=== PATIENT | female | born 1955 | race Caucasian/White ===

== ENCOUNTER 2017-02-28 07:52 | Inpatient (IN) | payer BC, OTHER ==
[~2017-02-28] VITALS: Ht 157.5 cm; Wt 123.0 kg
[~2017-02-28 07:52] MED LIST: ACET-818 PO; ACET325T33 PO; ASPI-664 PO; AZIT250T94 PO; AZIT500T5 PO; DOXY100C42 PO; ERYT1OIN6 BOTH EYES; FLUT16SP24 NASAL; FLUT9.9S NASAL; FURO40TA4 PO; HYDR-3672 PO; HYDR473S47 PO; INSU100C3 SC; LANT3I SC; LOSA100T47 PO; METO-407 PO; SODI15OR8 PO; SYN1 PO
[2017-02-28] MEDS ORDERED: ONDANSETRON 4 MG INJ IV STA ×2 (08:23→12:13)
[2017-02-28] MEDS ORDERED: morphine 4 MG/ML VIAL IV STA (08:23)
[2017-02-28] MEDS ORDERED: PIPER-TAZO 3.375 GM IV (PMX) 100 ML IVPB STA (08:23)
[2017-02-28] MEDS ORDERED: VANCOMYCIN 1 GM (PMX) 250 ML IVPB SCH (08:30)
[2017-02-28] MEDS ORDERED: INSU100C3 SQ (08:42)
[2017-02-28] MEDS ORDERED: LANT3I SC (08:42)
[2017-02-28] MEDS ORDERED: LIDOCAINE 1% (MPF) 5 ML VIAL SC ONE (09:00)
[2017-02-28 09:12] LABS: ADD SCAN DIFF NO
[2017-02-28 09:15] LABS: BASOPHILS % 0.3 % (0.0-2.0); EOSINOPHILS # 0.1 10^3/ul (0.0-0.5); HEMATOCRIT 29.8 % (37.0-47.0); HEMOGLOBIN 9.6 g/dl (12.0-16.0); LYMPHOCYTES # 1.4 10^3/ul (0.8-2.9); LYMPHOCYTES % 10.5 % (15.0-51.0); MEAN CORPUSCULAR HEMOGLOBIN 30.8 pg (29.0-33.0); MEAN CORPUSCULAR HGB CONC 32.2 g/dl (32.0-37.0); MEAN CORPUSCULAR VOLUME 95.5 fl (82.0-101.0); MEAN PLATELET VOLUME 9.3 fl (7.4-10.4); MONOCYTE # 1.1 10^3/ul (0.3-0.9); MONOCYTES % 8.1 % (0.0-11.0); NEUTROPHIL # 10.6 10^3/ul (1.6-7.5); NEUTROPHILS % 78.8 % (39.0-77.0); PLATELET COUNT 297 10^3/UL (140-415); RED BLOOD COUNT 3.12 10^6/ul (4.20-5.40); RED CELL DISTRIBUTION WIDTH 14.5 % (11.5-14.5); WHITE BLOOD COUNT 13.4 10^3/ul (4.8-10.8)
[2017-02-28] MEDS ORDERED: ACETAMINOPHEN 325 MG TAB PO PRN ×2 (09:30→15:30)
[2017-02-28] MEDS ORDERED: ONDANSETRON 4 MG INJ IV PRN (09:30)
[2017-02-28 09:31] LABS: INR 1.02; PROTIME 13.4 Sec (12.2-14.2)
[2017-02-28 09:32] LABS: PARTIAL THROMBOPLASTIN TIME 55.8 Sec (25.0-35.0)
[2017-02-28 09:33] LABS: CALCIUM 9.1 mg/dl (8.4-10.2); CREATININE 3.54 mg/dl (0.44-1.00); POTASSIUM 4.1 mmol/L (3.5-5.1)
[2017-02-28] MEDS ORDERED: HYDROmorphONE 1 MG/ML SYG IV STA (09:41)
--- NOTE | 2017-02-28 12:04 | CONS ---
Date/Time of Note Date/Time of Note DATE: 02/28/17 TIME: 12:01 Assessment/Plan Assessment/Plan Chief Complaint/Hosp Course - ESRD - ANEMIA - HTN - DM - OBESITY PLAN: She is on dialysis MWF, already finished her dialysis @ [facility] Ongoing Leg pain ? Monitor labs + WBC Check bloo dcultures Out patient blood cultures wwas drawn,I will follow up with th eresults Next HD on Friday THANK YOU VKenya YUSUF Problems: Consultation Date/Type/Reason Admit Date/Time Date of Consultation: Feb 28, 2017 Type of Consultation: NEPHROLOGY Reason for Consultation - ESRD ON HEMODIALYSIS Constitutional: poor po Eyes: no complaints ENT: no complaints Respiratory: shortness of breath Cardiovascular: no complaints Gastrointestinal: nausea, vomiting Genitourinary: no complaints Musculoskeletal: back pain, bone/joint pain Skin: no complaints Past Medical History esrd, dm, htn, anemia, obesity, joint pain Past Surgical History AVF Family History Significant Family History: no pertinent family hx Social History Alcohol Use: none Smoking Status: Never smoker Drug Use: none Exam/Review of Systems Vital Signs Vitals Vital Signs Date Time Temp Pulse Resp B/P Pulse Ox O2 Delivery O2 Flow Rate FiO2 02/28/17 10:00 69 18 137/49 100 Nasal Cannula 2.0 02/28/17 08:01 99.0 Exam Constitutional: alert, oriented Psych: no complaints Head: normocephalic Neck: jvd Respiratory: crackles/rales Cardiovascular: regular rate and rhythm, systolic murmur Gastrointestinal: soft Results Result Diagram: 02/28/17 0910 02/28/17 0910 Results 24 hrs Laboratory Tests Test 02/28/17 09:10 White Blood Count 13.4 H Red Blood Count 3.12 L Hemoglobin 9.6 #L Hematocrit 29.8 L Mean Corpuscular Volume 95.5 Mean Corpuscular Hemoglobin 30.8 Mean Corpuscular Hemoglobin Concent 32.2 Red Cell Distribution Width 14.5 Platelet Count 297 Mean Platelet Volume 9.3 Neutrophils % 78.8 H Lymphocytes % 10.5 L Monocytes % 8.1 Eosinophils % 1.0 Basophils % 0.3 Nucleated Red Blood Cells % 0.0 Neutrophils # 10.6 H Lymphocytes # 1.4 Monocytes # 1.1 H Eosinophils # 0.1 Basophils # 0.0 Nucleated Red Blood Cells # 0.0 Prothrombin Time 13.4 Prothrombin Time Ratio 1.0 INR International Normalized Ratio 1.02 Activated Partial Thromboplast Time 55.8 H Sodium Level 132 L Potassium Level 4.1 Chloride Level 95 L Carbon Dioxide Level 28 Anion Gap 13 Blood Urea Nitrogen 30 H Creatinine 3.54 H Glucose Level 145 Calcium Level 9.1 ANIBAL ALMANZAR MD Feb 28, 2017 12:04
--- NOTE | 2017-02-28 12:56 | ERA ---
ER Documentation Chief Complaint Date/Time DATE: 02/28/17 TIME: 12:55 Chief Complaint LEFT LEG PAIN X 6 MONTHS SENT BY MD FOR CELLULITIS HPI Patient is a 61-year-old female with hypertension, diabetes, and dialysis who presents with left leg pain. The patient has had left-sided leg pain for the past 6 months. It started after the patient had a vein stripping done in the left leg. The patient was seen at the [place] emergency department on February 25 was given clindamycin which she has been taking but it is not better. The patient was sent by the primary doctor for admission. The patient had an ultrasound done 1 month ago which was negative. ROS All systems reviewed and are negative except as per history of present illness. Medications Home Meds Reported Medications Insulin Glargine* (Lantus*) 100 Unit/Ml Soln, 100 UNIT SC QHS, #1 VIAL 02/28/17 Insulin Aspart (Novolog) 100 Unit/1 Ml Cartridge, 30 UNIT SQ AC MEALS 02/28/17 Aspirin* (Aspirin* (EC)) 81 Mg Tablet.dr, 81 MG PO DAILY, TAB 12/12/14 Furosemide (Lasix) 40 Mg Tab, 40 MG PO BID 06/25/14 Levothyroxine Sodium (Levothroid) 100 Mcg Tablet, 100 MCG PO QAM 06/25/14 Hydralazine Hcl* (Hydralazine Hcl*) 50 Mg Tablet, 50 MG PO BID 06/25/14 Losartan Potassium* (Cozaar*) 100 Mg Tablet, 100 MG PO DAILY 06/25/14 Metoprolol Tartrate* (Lopressor*) 100 Mg Tablet, 200 MG PO BID 06/25/14 Discontinued Reported Medications Fluticasone Propionate* (Flonase* Nasal) 50 Mcg/[place] - 16 Gm [place].susp, 1 SPRAY NASAL DAILY, SPRAY TO EACH NOSTRIL 12/21/14 Erythromycin (Erythromycin Opth) 3.5 Gm Oint..gm., 1 APPLIC BOTH EYES QHS, TUB 12/21/14 Insulin Aspart (Novolog) 100 U/Ml Cartridge, 10 UNITS SC AC MEALS 06/25/14 Discontinued Scripts Azithromycin* (Azithromycin*) 500 Mg Tablet, 500 MG PO DAILY, #3 TAB Prov:CHRISSIE DESAI DO 06/09/16 Sodium Polystyrene Sulfonate* (Kayexalate*) 15 Gm/60 Ml Susp, 30 GM PO BID for 1 Day, ML Prov:CHRISSIE DESAI DO 06/09/16 Fluticasone Propionate (Flonase Allergy Relief) 9.9 Ml [place].susp, 1 SPRAY NASAL BID, #1 BOTTLE TO EACH NOSTRIL Prov:CHRISSIE DESAI 06/09/16 Acetaminophen* (Tylenol*) 325 Mg Tablet, 2 TAB PO Q8 Y for PAIN AND OR ELEVATED TEMP, #20 TAB Prov:VENUS LEON PA-C 09/01/15 Acetaminophen-Codeine* (Tylenol No.3*) 300-30 Mg Tablet, 1 TAB PO Q4H Y for PAIN , #14 TAB Prov:BRIANNA PAIGE MD 05/13/15 Azithromycin* (Zithromax*) 250 Mg Tablet, 250 MG PO .ZPACK DIRECTED, #6 TAB TAKE 500 MG (2 TABS) THE FIRST DAY THEN 250 MG (1 TAB) DAYS 2-5 Prov:BRIANNA PAIGE MD 05/13/15 Hydrocodone/Homatropine Mbr* (Hycodan* Liq) 5 Ml Syrup, 10 ML PO TID Y for COUGH for 14 Days, ML Prov:GANGA TRAMMELL MD 12/14/14 Doxycycline Monohydrate (Doxycycline Monohydrate) 100 Mg Capsule, 100 MG PO BID for pneumonia, #14 Prov:GANGA TRAMMELL MD 12/14/14 Allergies Allergies: Coded Allergies: codeine (Verified Allergy, Unknown, 02/28/17) PMhx/Soc History of Surgery: Yes (L shoulder, L elbow, L varicose vein removal) Anesthesia Reaction: No Hx Neurological Disorder: No Hx Respiratory Disorders: No Hx Cardiac Disorders: Yes (HTN) Hx Psychiatric Problems: No Hx Miscellaneous Medical Probl: Yes (ESRD (dialysis MWF), ARTHRITIS, DM) Hx Alcohol Use: No Hx Substance Use: No Hx Tobacco Use: No Smoking Status: Never smoker FmHx Family History: diabetes Physical Exam Vitals Vital Signs Date Time Temp Pulse Resp B/P Pulse Ox O2 Delivery O2 Flow Rate FiO2 02/28/17 10:00 69 18 137/49 100 Nasal Cannula 2.0 02/28/17 08:01 99.0 80 18 151/68 99 Physical Exam Const: Moderate distress secondary to pain Head: Atraumatic Eyes: Normal Conjunctiva ENT: Normal External Ears, Nose and Mouth. Neck: Full range of motion..~ No meningismus. Resp: Clear to auscultation bilaterally Cardio: Regular rate and rhythm, no murmurs Abd: Soft, non tender, non distended. Normal bowel sounds Skin: Black eschar to the mid left thigh with surrounding induration, induration to the right thigh as well, no fluctuance Back: No midline or flank tenderness Ext: No cyanosis, or edema Neur: Awake and alert Psych: Normal Mood and Affect Result Diagram: 02/28/17 0910 02/28/17 0910 Results 24 hrs Laboratory Tests Test 02/28/17 09:10 White Blood Count 13.410^3/ul Red Blood Count 3.1210^6/ul Hemoglobin 9.6g/dl Hematocrit 29.8% Mean Corpuscular Volume 95.5fl Mean Corpuscular Hemoglobin 30.8pg Mean Corpuscular Hemoglobin Concent 32.2g/dl Red Cell Distribution Width 14.5% Platelet Count 28934^3/UL Mean Platelet Volume 9.3fl Neutrophils % 78.8% Lymphocytes % 10.5% Monocytes % 8.1% Eosinophils % 1.0% Basophils % 0.3% Nucleated Red Blood Cells % 0.0/100WBC Neutrophils # 10.610^3/ul Lymphocytes # 1.410^3/ul Monocytes # 1.110^3/ul Eosinophils # 0.110^3/ul Basophils # 0.010^3/ul Nucleated Red Blood Cells # 0.010^3/ul Prothrombin Time 13.4Sec Prothrombin Time Ratio 1.0 INR International Normalized Ratio 1.02 Activated Partial Thromboplast Time 55.8Sec Sodium Level 132mmol/L Potassium Level 4.1mmol/L Chloride Level 95mmol/L Carbon Dioxide Level 28mmol/L Anion Gap 13 Blood Urea Nitrogen 30mg/dl Creatinine 3.54mg/dl Glucose Level 145mg/dl Calcium Level 9.1mg/dl Current Medications Medications (Trade) Dose Ordered Sig/Memo Route PRN Reason Start Time Stop Time Status Last Admin Dose Admin Morphine Sulfate (morphine) 4 mg ONCE STAT IV 02/28/17 08:23 02/28/17 08:25 DC 02/28/17 08:56 Ondansetron HCl 4 mg 4 mg ONCE STAT IV 02/28/17 08:23 02/28/17 08:25 DC 02/28/17 08:56 Piperacillin Sod/ Tazobactam Sod 100 ml @ 200 mls/hr ONCE STAT IVPB 02/28/17 08:23 02/28/17 08:52 DC 02/28/17 09:16 Vancomycin HCl (Vancocin) 250 ml @ 125 mls/hr ONCE IVPB 02/28/17 08:30 02/28/17 10:29 DC 02/28/17 09:49 Lidocaine (Xylocaine 1% (Mpf)) 5 ml ONCE ONCE SC 02/28/17 09:00 02/28/17 09:01 DC Ondansetron HCl (Zofran Inj) 4 mg BRIDGE ORDER PRN IV NAUSEA AND/OR VOMITING 02/28/17 09:30 03/01/17 09:29 Acetaminophen (Tylenol Tab) 650 mg ER BRIDGE PRN PO MILD PAIN/FEVER 02/28/17 09:30 03/01/17 09:29 Hydromorphone HCl (Dilaudid) 1 mg ONCE STAT IV 02/28/17 09:41 02/28/17 09:42 DC 02/28/17 09:48 Ondansetron HCl (Zofran Inj) 4 mg ONCE STAT IV 02/28/17 12:13 02/28/17 12:14 DC 02/28/17 12:22 Procedures/MDM Patient is a 61-year-old female who presents with what appears to be an acute cellulitis to the lower extremities bilaterally with the left being worse than the right. The patient has failed outpatient treatment at this time and will need IV antibiotics. I have ordered vancomycin and Zosyn. The patient will be admitted to the care of Dr. Carlisle as the patient has regal insurance. The patient will be admitted to a medical surgical bed under observation status. Departure Diagnosis: Primary Impression: Cellulitis Qualified Code: L03.119 - Cellulitis of lower extremity, unspecified laterality Additional Impressions: Chronic renal failure Qualified Code: N18.9 - Chronic renal failure, unspecified stage Leukocytosis Qualified Code: D72.829 - Leukocytosis, unspecified type Anemia Qualified Code: D64.9 - Anemia, unspecified type HIGINIO CAMPBELL MD Feb 28, 2017 12:56
[2017-02-28 13:54] VITALS: TEMP 98.4
[2017-02-28 15:30] VITALS: BP 148/72; PULSE 86; RESP 18
[2017-02-28] MEDS ORDERED: DEXTROSE 50% 50 ML SYRINGE IV PRN ×2 (15:30)
[2017-02-28] MEDS ORDERED: VANCOMYCIN IV PER PHARMACY XX SCH (15:30)
[2017-02-28] MEDS ORDERED: DOCUSATE SODIUM 100 MG CAP PO PRN (15:30)
[2017-02-28] MEDS ORDERED: VANCOMYCIN 1 GM (PMX) 250 ML IVPB ONE (15:30)
[2017-02-28] MEDS ORDERED: LEVOFLOXACIN 750 MG TABLET PO SCH (15:30)
[2017-02-28] MEDS ORDERED: GLUCOSE GEL 15 GRAM TUBE PO PRN ×2 (15:30)
[2017-02-28] MEDS ORDERED: BISACODYL 10 MG SUPP PR PRN (15:30)
[2017-02-28] MEDS ORDERED: MAGNESIUM HYDROXIDE 30ML CUP PO PRN (15:30)
[2017-02-28] MEDS ORDERED: GLUCAGON 1 MG INJ IM PRN (15:30)
[2017-02-28] MEDS ORDERED: GLUCOSE GEL 15 GRAM TUBE BUCCAL PRN (15:30)
[2017-02-28] MEDS ORDERED: NACL 0.9% 3 ML SYG IV SCH (15:30)
[2017-02-28] MEDS: morphine 2 MG INJ IV PRN (15:32)
[2017-02-28] MEDS: ONDANSETRON 4 MG INJ IV PRN (15:33)
[2017-02-28 16:28] VITALS: BP 148/72; PULSE 86; RESP 20
--- NOTE | 2017-02-28 16:31 | HP ---
Date/Time of Note Date/Time of Note DATE: 02/28/17 TIME: 15:54 Assessment/Plan VTE Prophylaxis VTE Prophylaxis Intervention: heparin Assessment/Plan Assessment/Plan 61-year-old female: 1. Left inner thigh acute on chronic cellulitis post varicose vein laser procedure 6 months ago, mild leukocytosis is noted, change antibiotics to IV, IV vancomycin and p.o. Levaquin added. Monitor CBC, pain control with morphine as needed patient reports cannot tolerate Spreckels, Percocet will be tried as an alternative oral medication. CAT scan of the left thigh pending 2. End-stage renal disease on hemodialysis, on Friday/Friday/Friday schedule , last hemodialysis was this morning at dialysis center prior to admission. Dr. Mccollum will be following, next dialysis is planned for Friday 3. Diabetes mellitus, her insulin regimen has been adjusted, she will be on Lantus 26 units subcutaneously QHS along with NovoLog 8 units subcutaneously q. AC and moderate sliding scale insulin. Further adjustments to be made. Hemoglobin A1c is pending 4. Hypertension: Home medications have been resumed, patient clarified that she is on metoprolol 100 mg twice daily 5. Nausea/vomiting, patient reports that it started since she was taking Spreckels , she is currently still symptomatic and has not been able to eat much over the past 2 days, she will be started on Reglan 5 mg IV prior to meals, continue Zofran as needed. 6. Super morbid obesity Prophylaxis: Protonix for GI prophylaxis, heparin subcu for DVT prophylaxis. Disposition: CAT scan of the left thigh pending, IV antibiotics, hemodialysis Friday HPI/ROS Admit Date/Time Admit Date/Time Hx of Present Illness Primary care physician: Dr. Martinez Previous vascular surgeon: Dr. Velazquez Outpatient vehicle cost engineer: Dr. Stewart Chief complaint : Left leg pain History of presenting illness This is a 61-year-old female, with history of diabetes mellitus insulin- dependent, super morbid obesity, end-stage renal disease on hemodialysis, hypertension, hyperlipidemia, left inner thigh pain and wound for the past 6 months. The patient reports that she had varicose vein laser treatment 6 months ago done on her left inner thigh area by her vascular surgeon, since then she has been having on and off pain around the area of the laser treatment. The burnout area did form an eschar, there is a large area of induration surrounding it. There is no erythema seen at this time but the patient did receive a dose of vancomycin and Zosyn already in the emergency department. The patient reports that over the past 6 months she has seen her vascular surgeon for this issue, she also has been at [facility] twice during the months of January and most recently 2 days ago. She was given clindamycin 2 days ago to treat cellulitis on that left thigh area surrounding the eschar from the laser treatment for the varicose vein. Over the past 2 days the patient has been nauseous and vomiting every time she took Spreckels for pain but was able to take her antibiotic clindamycin. She denies any fevers or chills but reports increasing pain in the left leg area and extension of the indurated area. There is mild edema noted on her left lower extremity but seems to be chronic. She is otherwise hemodynamically stable. On her latest visit from her vascular surgeon, she was told that she would be sent for a CAT scan of her left thigh area this coming week. At baseline the patient uses a walker with a seat, she has chronic lower extremity weakness. She has been admitted to a medical surgical bed on IV vancomycin and oral Levaquin, a CAT scan of her left thigh will be obtained for further evaluation. She was already dialyzed today as scheduled as an outpatient prior to arrival to the emergency department. Dr. Mccollum will be following the patient, next dialysis is due Friday ROS Constitutional: nausea Eyes: other (Right eye blind) ENT: no complaints Respiratory: shortness of breath Cardiovascular: no complaints Gastrointestinal: nausea, vomiting Genitourinary: no complaints Musculoskeletal: back pain, bone/joint pain Skin: no complaints Psychological: no complaints PMH/Family/Social Past Medical History Medical History: diabetes, GERD, hypertension, hypothyroid, renal disease (End- stage renal disease on hemodialysis), other (Super morbid obesity) Past Surgical History Status post left shoulder surgery 2 remotely Status post left elbow surgery 1 remotely Status post carpal tunnel surgery left wrist 2 and right wrist 1 remotely Status post AV fistula April 2016, status post repair August 2016 Status post permacath placement Status post left inner thigh varicose veins laser surgery 6 months ago Family History Significant Family History: no pertinent family hx Social History Alcohol Use: none Smoking Status: Never smoker Drug Use: none Exam/Review of Systems Vital Signs Vitals Vital Signs Date Time Temp Pulse Resp B/P Pulse Ox O2 Delivery O2 Flow Rate FiO2 02/28/17 13:54 98.4 63 20 125/61 99 Nasal Cannula 2.0 Exam Constitutional: alert, oriented, other Psych: no complaints Head: atraumatic, normocephalic Eyes: EOMI, other (Blind right eye) ENMT: mucosa pink and moist, nl external ears & nose Neck: non-tender, supple Respiratory: clear to auscultation, normal air movement Cardiovascular: nl pulses, regular rate and rhythm Gastrointestinal: non-tender, soft Musculoskeletal: other (Left inner thigh above knee area with eschar approximately 1.51.5 cm with larger area of induration surrounding it, no erythema, tenderness to palpation noted) Extremities: normal pulses Neurological: ANESTHESIOLOGIST PHYSICIAN II-XII intact, nl mental status, nl speech, nl strength (At baseline) Labs Result Diagram: 02/28/17 0910 02/28/17 0910 Medications Medications Current Medications Aspirin (Halfprin) 81 mg DAILY PO ; Start 03/01/17 at 09:00 Hydralazine HCl (Apresoline) 50 mg BID PO ; Start 02/28/17 at 21:00 Losartan Potassium (Cozaar) 100 mg DAILY PO ; Start 03/01/17 at 09:00 Metoprolol Tartrate (Lopressor) 200 mg BID PO ; Start 02/28/17 at 21:00 Ondansetron HCl (Zofran Inj) 4 mg Q6H PRN IV NAUSEA AND/OR VOMITING Last administered on 02/28/17t 15:33; Admin Dose 4 MG; Start 02/28/17 at 15:30 Acetaminophen (Tylenol Tab) 650 mg Q6H PRN PO PAIN LEVEL 1-3 OR FEVER; Start at 15:30 Oxycodone/ Acetaminophen (Percocet (5/ 325)) 1 tab Q6H PRN PO MODERATE PAIN LEVEL 4-6; Start 02/28/17 at 15:30 Oxycodone/ Acetaminophen (Percocet (5/ 325)) 2 tab Q6H PRN PO SEVERE PAIN LEVEL 7-10; Start 02/28/17 at 15:30 Morphine Sulfate (morphine) 2 mg Q4H PRN IV SEVERE PAIN LEVEL 7-10; Start 02/28 at 15:30 Docusate Sodium (Colace) 100 mg Q12H PRN PO CONSTIPATION; Start 02/28/17 at 15: 30 Magnesium Hydroxide (Milk Of Mag) 30 ml DAILY PRN PO CONSTIPATION; Start at 15:30 Bisacodyl (Dulcolax Supp) 10 mg DAILY PRN DE CONSTIPATION; Start 02/28/17 at 15 :30 Pantoprazole (Protonix Tab) 40 mg DAILY@06 PO ; Start 03/01/17 at 06:00 Heparin Sodium (Porcine) (Heparin (5000 Units/0.5 ml)) 5,000 unit Q12 SC ; Start 02/28/17 at 21:00 Levofloxacin (Levaquin) 750 mg Q48H PO ; Start 02/28/17 at 15:30 Insulin Glargine (Lantus) 26 unit DAILY@20 SC ; Start 02/28/17 at 20:00 Diagnostic Test (Pha) (Accu-Chek) 1 ea 02 XX ; Start 03/01/17 at 02:00 Miscellaneous Information 1 ea NOTE XX ; Start 02/28/17 at 15:30 Glucose (Glutose) 15 gm Q15M PRN PO DECREASED GLUCOSE; Start 02/28/17 at 15:30 Glucose (Glutose) 22.5 gm Q15M PRN PO DECREASED GLUCOSE; Start 02/28/17 at 15: 30 Dextrose (D50w Syringe) 25 ml Q15M PRN IV DECREASED GLUCOSE; Start 02/28/17 at 15:30 Dextrose (D50w Syringe) 50 ml Q15M PRN IV DECREASED GLUCOSE; Start 02/28/17 at 15:30 Glucagon (Glucagen) 1 mg Q15M PRN IM DECREASED GLUCOSE; Start 02/28/17 at 15:30 Glucose (Glutose) 15 gm Q15M PRN BUCCAL DECREASED GLUCOSE; Start 02/28/17 at 15 :30 JASPREET SMITH Feb 28, 2017 16:04
[2017-02-28] MEDS: INSULIN ASPART [NOVOLOG] 3 ML PEN SC SCH ×3 (17:25→23:40)
--- NOTE | 2017-02-28 18:40 | RADRPT ---
PROCEDURE: CT of the left thigh without contrast CLINICAL INDICATION: Possible abscess TECHNIQUE: CT scan of the left thigh was performed. No IV contrast was administered. Coronal and sagittal reformatted images were obtained from the axial source images. images. The calculated radi ation dose measures 910.38 mGy centimeters. The CTDI measures 25.33 mGy. Images were reviewed on a h igh-resolution PACS workstation. One or more of the following dose reduction techniques were used: - Automated exposure control. - Adjustment of the mA and/or kV according to patient size . - Use of iterative reconstruction technique. Images were reviewed on a high-resolution PACS workstation COMPARISON: None. FINDINGS: Osseous structures: There is no cortical destruction or soft tissue gas to suggest osteomyelitis. Mild tricompartmental knee arthrosis is present. Soft tissues: There is extensive, subcutaneous infiltration of the partially visualized lower leg w ith calcifications, likely chronic in nature. Calcified subcutaneous varicosities are also present. There is no evidence for a drainable fluid collection on this noncontrast examination. There is mo derate fatty atrophy the anterior muscle compartments of the lower leg. IMPRESSION: 1. No cortical destruction or soft tissue gas to suggest CT evidence for osteomyelitis. 2. No evidence for a drainable fluid collection on this noncontrast exam. 3. Chronic, partially visualized subcutaneous infiltration and scattered calcifications of the lowe r leg, nonspecific findings. 4. Atherosclerotic vascular calcifications RPTAT: HH .Neeraj Bates MD, MD Date Time Electronically viewed and signed by .Neeraj Bates MD, MD on 02/28/2017 18:40 .d/
[2017-02-28] MEDS: FUROSEMIDE 40 MG TAB PO SCH (18:46)
[2017-02-28] MEDS: METOCLOPRAMIDE 10 MG INJ IV SCH ×2 (18:46→23:35)
[2017-02-28] MEDS ORDERED: METOPROLOL 100 MG TAB PO SCH (21:00)
[2017-02-28] MEDS: METOPROLOL 100 MG TAB PO SCH (23:35)
[2017-02-28] MEDS: HEPARIN 5,000 UNIT/0.5 ML VIAL SC SCH (23:38)
[2017-02-28] MEDS: INSULIN GLARGINE [LANtus] 3 ML PEN SC SCH (23:41)
[2017-03-01] MEDS: ACCU-CHEK XX SCH (02:00)
[2017-03-01] MEDS: morphine 2 MG INJ IV PRN ×2 (03:17→22:37)
[2017-03-01] MEDS: FUROSEMIDE 40 MG TAB PO SCH ×2 (05:47→18:12)
[2017-03-01] MEDS: PANTOPRAZOLE (EC) 40 MG TAB PO SCH (05:47)
[2017-03-01 06:09] LABS: ADD SCAN DIFF NO
[2017-03-01 06:29] LABS: BASOPHIL # 0.1 10^3/ul (0.0-0.1); BASOPHILS % 0.4 % (0.0-2.0); EOSINOPHILS # 0.1 10^3/ul (0.0-0.5); HEMATOCRIT 30.5 % (37.0-47.0); HEMOGLOBIN 9.5 g/dl (12.0-16.0); LYMPHOCYTES # 0.9 10^3/ul (0.8-2.9); LYMPHOCYTES % 7.4 % (15.0-51.0); MEAN CORPUSCULAR HEMOGLOBIN 31.1 pg (29.0-33.0); MEAN CORPUSCULAR HGB CONC 31.1 g/dl (32.0-37.0); MEAN PLATELET VOLUME 10.2 fl (7.4-10.4); MONOCYTES % 7.9 % (0.0-11.0); NEUTROPHIL # 10.4 10^3/ul (1.6-7.5); NEUTROPHILS % 82.5 % (39.0-77.0); PLATELET COUNT 308 10^3/UL (140-415); RED BLOOD COUNT 3.05 10^6/ul (4.20-5.40); RED CELL DISTRIBUTION WIDTH 14.5 % (11.5-14.5); WHITE BLOOD COUNT 12.6 10^3/ul (4.8-10.8)
[2017-03-01 06:36] LABS: CREATININE 4.95 mg/dl (0.44-1.00)
[2017-03-01] MEDS: OXYCODONE/ACETAMINOPHEN (5/325) TAB PO PRN ×2 (06:36→18:20)
[2017-03-01 06:37] LABS: PHOSPHORUS 7.8 mg/dl (2.5-4.9)
[2017-03-01 06:38] LABS: CALCIUM 8.7 mg/dl (8.4-10.2); MAGNESIUM 2.1 mg/dl (1.7-2.5)
[2017-03-01] MEDS: LEVOTHYROXINE 100 MCG TAB PO SCH (07:47)
[2017-03-01] MEDS: INSULIN ASPART [NOVOLOG] 3 ML PEN SC SCH ×7 (07:48→21:00)
[2017-03-01] MEDS: METOCLOPRAMIDE 10 MG INJ IV SCH (07:49)
[2017-03-01 08:07] VITALS: BP 122/58; RESP 18
[2017-03-01] MEDS: METOPROLOL 100 MG TAB PO SCH ×2 (08:32→21:24)
[2017-03-01] MEDS: ASPIRIN (EC) 81 MG TAB PO SCH (08:32)
[2017-03-01] MEDS: LOSARTAN 50 MG TAB PO SCH (08:32)
[2017-03-01] MEDS: HEPARIN 5,000 UNIT/0.5 ML VIAL SC SCH ×2 (08:34→21:25)
--- NOTE | 2017-03-01 10:16 | PN ---
Date/Time of Note Date/Time of Note DATE: 03/01/17 TIME: 10:04 Assessment/Plan VTE Prophylaxis VTE Prophylaxis Intervention: heparin Lines/Catheters IV Catheter Type (from Nrs): Saline Lock Urinary Cath still in place: No Assessment/Plan Assessment/Plan 61-year-old female: 1. Left inner thigh chronic subcutaneous infiltration post varicose vein laser procedure 6 months ago, CT with findings of extensive, subcutaneous infiltration of the partially visualized lower leg with calcifications, likely chronic in nature. Calcified subcutaneous varicosities are also present Mild leukocytosis on IV vancomycin that can be given with HD, blood cx negative , d/c Levaquin. Pain control with morphine as needed patient reports cannot tolerate [place], Percocet will be tried as an alternative oral medication. 2. End-stage renal disease on hemodialysis, on Friday/Friday/Friday schedule , Next hemodialysis Friday. Dr. Mccollum following. 3. Diabetes mellitus, her insulin regimen has been adjusted, she will be on Lantus 26 units subcutaneously QHS along with NovoLog 8 units subcutaneously q. AC and moderate sliding scale insulin. BG stable. Hemoglobin A1c 8.2 Trial of Gabapentin for neuropathic pain 4. Hypertension: continue home meds ? Dizzy, check orthostatics 5. Nausea/vomiting, resolved this AM, Trial off Reglan continue Zofran as needed. 6. Super morbid obesity Prophylaxis: Protonix for GI prophylaxis, heparin subcu for DVT prophylaxis. Disposition: CAT scan of the left thigh pending, IV antibiotics, hemodialysis Friday Subjective 24 Hr Interval Summary Free Text/Dictation Patient complaining of pain LLE CT left leg with chronic findings, no abscess D/c Levaquin, continue Vanco with HD until follow up with Dr Velazquez on 03/04 Exam/Review of Systems Vital Signs Vitals Vital Signs Date Time Temp Pulse Resp B/P Pulse Ox O2 Delivery O2 Flow Rate FiO2 03/01/17 08:07 98.7 71 18 122/58 98 03/01/17 08:00 Nasal Cannula 2.0 Intake and Output 02/28/17 02/28/17 03/01/17 15:00 23:00 07:00 Intake Total 350 ml 300 ml 350 ml Output Total 2 ml Balance 350 ml 300 ml 348 ml Exam Constitutional: alert, obese (morbid), oriented Head: atraumatic, normocephalic Eyes: other (blind right eye ) Respiratory: clear to auscultation, normal air movement Cardiovascular: nl pulses, regular rate and rhythm Gastrointestinal: non-tender, soft Extremities: normal pulses, other (lower left inner thigh at site or eschar ), tenderness Neurological: CALL CENTER COORDINATOR II-XII intact, nl mental status, nl speech, nl strength Results Result Diagram: 03/01/1720 03/01/17 0520 Results 24 hrs Laboratory Tests Test 02/28/17 17:10 02/28/17 23:33 03/01/17 02:36 03/01/17 05:20 Bedside Glucose 176 242 H 180 White Blood Count 12.6 H Red Blood Count 3.05 L Hemoglobin 9.5 L Hematocrit 30.5 L Mean Corpuscular Volume 100.0 Mean Corpuscular Hemoglobin 31.1 Mean Corpuscular Hemoglobin Concent 31.1 L Red Cell Distribution Width 14.5 Platelet Count 308 Mean Platelet Volume 10.2 Neutrophils % 82.5 H Lymphocytes % 7.4 L Monocytes % 7.9 Eosinophils % 1.0 Basophils % 0.4 Nucleated Red Blood Cells % 0.0 Neutrophils # 10.4 H Lymphocytes # 0.9 Monocytes # 1.0 H Eosinophils # 0.1 Basophils # 0.1 Nucleated Red Blood Cells # 0.0 Sodium Level 136 Potassium Level 5.0 Chloride Level 94 L Carbon Dioxide Level 28 Anion Gap 19 H Blood Urea Nitrogen 44 #H Creatinine 4.95 #H Glucose Level 130 Hemoglobin A1c 8.2 H Calcium Level 8.7 Phosphorus Level 7.8 H Magnesium Level 2.1 Thyroid Stimulating Hormone (TSH) 3.420 Free Thyroxine 1.00 Test 03/01/17 07:43 Bedside Glucose 138 Medications Medications Current Medications Aspirin (Halfprin) 81 mg DAILY PO Last administered on 03/01/17 08:32; Admin Dose 81 MG; Start 03/01/17 at 09:00 Hydralazine HCl (Apresoline) 50 mg BID PO Last administered on 03/01/17 08:31 ; Admin Dose 50 MG; Start 02/28/17 at 21:00 Losartan Potassium (Cozaar) 100 mg DAILY PO Last administered on 03/01/17 08: 32; Admin Dose 100 MG; Start 03/01/17 at 09:00 Ondansetron HCl (Zofran Inj) 4 mg Q6H PRN IV NAUSEA AND/OR VOMITING Last administered on 02/28/17 15:33; Admin Dose 4 MG; Start 02/28/17 at 15:30 Acetaminophen (Tylenol Tab) 650 mg Q6H PRN PO PAIN LEVEL 1-3 OR FEVER; Start at 15:30 Oxycodone/ Acetaminophen (Percocet (5/ 325)) 1 tab Q6H PRN PO MODERATE PAIN LEVEL 4-6; Start 02/28/17 at 15:30 Oxycodone/ Acetaminophen (Percocet (5/ 325)) 2 tab Q6H PRN PO SEVERE PAIN LEVEL 7-10 Last administered on 03/01/17 06:36; Admin Dose 2 TAB; Start at 15:30 Morphine Sulfate (morphine) 2 mg Q4H PRN IV SEVERE PAIN LEVEL 7-10 Last administered on 03/01/17 03:17; Admin Dose 2 MG; Start 02/28/17 at 15:30 Docusate Sodium (Colace) 100 mg Q12H PRN PO CONSTIPATION; Start 02/28/17 at 15: 30 Magnesium Hydroxide (Milk Of Mag) 30 ml DAILY PRN PO CONSTIPATION; Start at 15:30 Bisacodyl (Dulcolax Supp) 10 mg DAILY PRN [place] CONSTIPATION; Start 02/28/17 at 15 :30 Pantoprazole (Protonix Tab) 40 mg DAILY@06 PO Last administered on 03/01/17 05 :47; Admin Dose 40 MG; Start 03/01/17 at 06:00 Heparin Sodium (Porcine) (Heparin (5000 Units/0.5 ml)) 5,000 unit Q12 SC Last administered on 03/01/17 08:34; Admin Dose 5,000 UNIT; Start 02/28/17 at 21:00 Levofloxacin (Levaquin) 750 mg Q48H PO ; Start 02/28/17 at 15:30 Insulin Glargine (Lantus) 26 unit DAILY@20 SC Last administered on 02/28/17 23 :41; Admin Dose 26 UNIT; Start 02/28/17 at 20:00 Diagnostic Test (Pha) (Accu-Chek) 1 ea 02 XX ; Start 03/01/17 at 02:00 Miscellaneous Information 1 ea NOTE XX ; Start 02/28/17 at 15:30 Glucose (Glutose) 15 gm Q15M PRN PO DECREASED GLUCOSE; Start 02/28/17 at 15:30 Glucose (Glutose) 22.5 gm Q15M PRN PO DECREASED GLUCOSE; Start 02/28/17 at 15: 30 Dextrose (D50w Syringe) 25 ml Q15M PRN IV DECREASED GLUCOSE; Start 02/28/17 at 15:30 Dextrose (D50w Syringe) 50 ml Q15M PRN IV DECREASED GLUCOSE; Start 02/28/17 at 15:30 Glucagon (Glucagen) 1 mg Q15M PRN IM DECREASED GLUCOSE; Start 02/28/17 at 15:30 Glucose (Glutose) 15 gm Q15M PRN BUCCAL DECREASED GLUCOSE; Start 02/28/17 at 15 :30 Metoprolol Tartrate (Lopressor) 100 mg BID PO Last administered on 03/01/17t 08 :32; Admin Dose 100 MG; Start 02/28/17 at 21:00 Procedures Procedures PROCEDURE: CT of the left thigh without contrast CLINICAL INDICATION: Possible abscess TECHNIQUE: CT scan of the left thigh was performed. No IV contrast was administered. Coronal and sagittal reformatted images were obtained from the axial source images. images. The calculated radiation dose measures 910.38 mGy centimeters. The CTDI measures 25.33 mGy. Images were reviewed on a high- resolution PACS workstation. One or more of the following dose reduction techniques were used: - Automated exposure control. - Adjustment of the mA and/or kV according to patient size . - Use of iterative reconstruction technique. Images were reviewed on a high-resolution PACS workstation COMPARISON: None. FINDINGS: Osseous structures: There is no cortical destruction or soft tissue gas to suggest osteomyelitis. Mild tricompartmental knee arthrosis is present. Soft tissues: There is extensive, subcutaneous infiltration of the partially visualized lower leg with calcifications, likely chronic in nature. Calcified subcutaneous varicosities are also present. There is no evidence for a drainable fluid collection on this noncontrast examination. There is moderate fatty atrophy the anterior muscle compartments of the lower leg. IMPRESSION: 1. No cortical destruction or soft tissue gas to suggest CT evidence for osteomyelitis. 2. No evidence for a drainable fluid collection on this noncontrast exam. 3. Chronic, partially visualized subcutaneous infiltration and scattered calcifications of the lower leg, nonspecific findings. 4. Atherosclerotic vascular calcifications RPTAT: HH .Neeraj Bates MD, MD Date Time Electronically viewed and signed by .Neeraj Bates MD, on 02/28/2017 18:40 JASPREET SMITH Mar 01, 2017 10:15
[2017-03-01] MEDS ORDERED: METOCLOPRAMIDE 10 MG INJ IV PRN (10:30)
[2017-03-01 11:16] VITALS: BP 128/59
[2017-03-01 11:26] VITALS: BP 125/60
[2017-03-01 11:36] VITALS: BP 150/64
[2017-03-01] MEDS: GABAPENTIN 100 MG CAP PO SCH ×2 (12:14→21:24)
[2017-03-01] MEDS: INSULIN GLARGINE [LANtus] 3 ML PEN SC SCH (21:11)
--- NOTE | 2017-03-01 22:15 | CONS ---
Date/Time of Note Date/Time of Note DATE: 03/01/17 TIME: 22:13 Consult Date/Type/Reason Admit Date/Time Feb 28, 2017 at 09:05 Initial Consult Date 02/28/17 Type of Consultation: NEPHROLOGY Subjective no chest pain and no sob Objective Vital Signs Date Time Temp Pulse Resp B/P Pulse Ox O2 Delivery O2 Flow Rate FiO2 03/01/17 11:36 67 150/64 03/01/17 08:07 98.7 18 98 03/01/17 08:00 Nasal Cannula 2.0 Intake and Output 02/28/17 02/28/17 03/01/17 15:00 23:00 07:00 Intake Total 350 ml 300 ml 350 ml Output Total 2 ml Balance 350 ml 300 ml 348 ml Results/Medications Result Diagram: 03/01/1720 03/01/17 0520 Results 24 hrs Laboratory Tests Test 02/28/17 23:33 03/01/17 02:36 03/01/17 05:20 03/01/17 07:43 Bedside Glucose 242 H 180 138 White Blood Count 12.6 H Red Blood Count 3.05 L Hemoglobin 9.5 L Hematocrit 30.5 L Mean Corpuscular Volume 100.0 Mean Corpuscular Hemoglobin 31.1 Mean Corpuscular Hemoglobin Concent 31.1 L Red Cell Distribution Width 14.5 Platelet Count 308 Mean Platelet Volume 10.2 Neutrophils % 82.5 H Lymphocytes % 7.4 L Monocytes % 7.9 Eosinophils % 1.0 Basophils % 0.4 Nucleated Red Blood Cells % 0.0 Neutrophils # 10.4 H Lymphocytes # 0.9 Monocytes # 1.0 H Eosinophils # 0.1 Basophils # 0.1 Nucleated Red Blood Cells # 0.0 Sodium Level 136 Potassium Level 5.0 Chloride Level 94 L Carbon Dioxide Level 28 Anion Gap 19 H Blood Urea Nitrogen 44 #H Creatinine 4.95 #H Glucose Level 130 Hemoglobin A1c 8.2 H Calcium Level 8.7 Phosphorus Level 7.8 H Magnesium Level 2.1 Thyroid Stimulating Hormone (TSH) 3.420 Free Thyroxine 1.00 Test 03/01/17 11:51 03/01/17 18:04 03/01/17 21:09 Bedside Glucose 172 213 171 Medications Current Medications Aspirin (Halfprin) 81 mg DAILY PO Last administered on 03/01/17t 08:32; Admin Dose 81 MG; Start 03/01/17 at 09:00 Hydralazine HCl (Apresoline) 50 mg BID PO Last administered on 03/01/17 21:23 ; Admin Dose 50 MG; Start 02/28/17 at 21:00 Losartan Potassium (Cozaar) 100 mg DAILY PO Last administered on 03/01/17 08: 32; Admin Dose 100 MG; Start 03/01/17 at 09:00 Ondansetron HCl (Zofran Inj) 4 mg Q6H PRN IV NAUSEA AND/OR VOMITING Last administered on 02/28/17 15:33; Admin Dose 4 MG; Start 02/28/17 at 15:30 Acetaminophen (Tylenol Tab) 650 mg Q6H PRN PO PAIN LEVEL 1-3 OR FEVER; Start at 15:30 Oxycodone/ Acetaminophen (Percocet (5/ 325)) 1 tab Q6H PRN PO MODERATE PAIN LEVEL 4-6; Start 02/28/17 at 15:30 Oxycodone/ Acetaminophen (Percocet (5/ 325)) 2 tab Q6H PRN PO SEVERE PAIN LEVEL 7-10 Last administered on 03/01/17 18:20; Admin Dose 2 TAB; Start at 15:30 Morphine Sulfate (morphine) 2 mg Q4H PRN IV SEVERE PAIN LEVEL 7-10 Last administered on 03/01/17 03:17; Admin Dose 2 MG; Start 02/28/17 at 15:30 Docusate Sodium (Colace) 100 mg Q12H PRN PO CONSTIPATION; Start 02/28/17 at 15: 30 Magnesium Hydroxide (Milk Of Mag) 30 ml DAILY PRN PO CONSTIPATION; Start at 15:30 Bisacodyl (Dulcolax Supp) 10 mg DAILY PRN [place] CONSTIPATION; Start 02/28/17 at 15 :30 Pantoprazole (Protonix Tab) 40 mg DAILY@06 PO Last administered on 03/01/17 05 :47; Admin Dose 40 MG; Start 03/01/17 at 06:00 Heparin Sodium (Porcine) (Heparin (5000 Units/0.5 ml)) 5,000 unit Q12 SC Last administered on 03/01/17 21:25; Admin Dose 5,000 UNIT; Start 02/28/17 at 21:00 Insulin Glargine (Lantus) 26 unit DAILY@20 SC Last administered on 03/01/17 21 :11; Admin Dose 26 UNIT; Start 02/28/17 at 20:00 Diagnostic Test (Pha) (Accu-Chek) 1 ea 02 XX ; Start 03/01/17 at 02:00 Miscellaneous Information 1 ea NOTE XX ; Start 02/28/17 at 15:30 Glucose (Glutose) 15 gm Q15M PRN PO DECREASED GLUCOSE; Start 02/28/17 at 15:30 Glucose (Glutose) 22.5 gm Q15M PRN PO DECREASED GLUCOSE; Start 02/28/17 at 15: 30 Dextrose (D50w Syringe) 25 ml Q15M PRN IV DECREASED GLUCOSE; Start 02/28/17 at 15:30 Dextrose (D50w Syringe) 50 ml Q15M PRN IV DECREASED GLUCOSE; Start 02/28/17 at 15:30 Glucagon (Glucagen) 1 mg Q15M PRN IM DECREASED GLUCOSE; Start 02/28/17 at 15:30 Glucose (Glutose) 15 gm Q15M PRN BUCCAL DECREASED GLUCOSE; Start 02/28/17 at 15 :30 Metoprolol Tartrate (Lopressor) 100 mg BID PO Last administered on 03/01/17 21 :24; Admin Dose 100 MG; Start 02/28/17 at 21:00 Metoclopramide HCl (Reglan) 5 mg Q6H PRN IV NAUSEA; Start 03/01/17 at 10:30 Gabapentin (Neurontin) 100 mg BID PO Last administered on 03/01/17 21:24; Admin Dose 100 MG; Start 03/01/17 at 10:30 Miscellaneous Information (*Rx Drug Level Order Reminder*) RANDOM VANCOMYCIN LEVEL 4... ONCE ONCE XX ; Start 03/02/17 at 05:00; Stop 03/02/17 at 05:01 Assessment/Plan Chief Complaint/Hosp Course cellulitis of thigh ESRD on dialysis per schedule toni yung Problems: DOMINIQUE LUND MD Mar 01, 2017 22:15
[2017-03-02] MEDS: OXYCODONE/ACETAMINOPHEN (5/325) TAB PO PRN ×4 (00:14→22:29)
[2017-03-02] MEDS: ACCU-CHEK XX SCH (02:00)
[2017-03-02] MEDS: FUROSEMIDE 40 MG TAB PO SCH ×2 (05:46→18:04)
[2017-03-02] MEDS: PANTOPRAZOLE (EC) 40 MG TAB PO SCH (05:46)
[2017-03-02] MEDS: LEVOTHYROXINE 100 MCG TAB PO SCH (06:37)
[2017-03-02 07:45] VITALS: BP 122/60; RESP 18
[2017-03-02 07:48] LABS: POTASSIUM 5.1 mmol/L (3.5-5.1)
[2017-03-02 07:49] LABS: ADD SCAN DIFF NO; BASOPHIL # 0.1 10^3/ul (0.0-0.1); BASOPHILS % 0.3 % (0.0-2.0); EOSINOPHILS # 0.2 10^3/ul (0.0-0.5); EOSINOPHILS % 1.5 % (0.0-7.0); HEMATOCRIT 29.9 % (37.0-47.0); HEMOGLOBIN 9.1 g/dl (12.0-16.0); LYMPHOCYTES # 1.3 10^3/ul (0.8-2.9); LYMPHOCYTES % 9.1 % (15.0-51.0); MEAN CORPUSCULAR HEMOGLOBIN 31.1 pg (29.0-33.0); MEAN CORPUSCULAR HGB CONC 30.4 g/dl (32.0-37.0); MEAN PLATELET VOLUME 10.2 fl (7.4-10.4); MONOCYTE # 1.1 10^3/ul (0.3-0.9); MONOCYTES % 7.8 % (0.0-11.0); NEUTROPHIL # 11.5 10^3/ul (1.6-7.5); NEUTROPHILS % 80.4 % (39.0-77.0); PLATELET COUNT 283 10^3/UL (140-415); RED BLOOD COUNT 2.93 10^6/ul (4.20-5.40); RED CELL DISTRIBUTION WIDTH 14.6 % (11.5-14.5); WHITE BLOOD COUNT 14.3 10^3/ul (4.8-10.8)
[2017-03-02 07:50] VITALS: BP 103/66; RESP 16
[2017-03-02 07:50] LABS: CREATININE 6.62 mg/dl (0.44-1.00)
[2017-03-02 07:51] LABS: CALCIUM 8.7 mg/dl (8.4-10.2)
[2017-03-02 07:54] LABS: MAGNESIUM 2.2 mg/dl (1.7-2.5)
[2017-03-02] MEDS: ASPIRIN (EC) 81 MG TAB PO SCH (09:16)
[2017-03-02] MEDS: GABAPENTIN 100 MG CAP PO SCH ×2 (09:16→20:44)
[2017-03-02] MEDS: LOSARTAN 50 MG TAB PO SCH (09:16)
[2017-03-02] MEDS: HEPARIN 5,000 UNIT/0.5 ML VIAL SC SCH ×2 (09:18→20:47)
[2017-03-02] MEDS: INSULIN ASPART [NOVOLOG] 3 ML PEN SC SCH ×6 (09:21→20:48)
[2017-03-02] MEDS: METOPROLOL 100 MG TAB PO SCH ×2 (09:23→20:44)
--- NOTE | 2017-03-02 12:37 | PN ---
Date/Time of Note Date/Time of Note DATE: 03/02/17 TIME: 12:25 Assessment/Plan VTE Prophylaxis VTE Prophylaxis Intervention: heparin Lines/Catheters IV Catheter Type (from Nrsg): Saline Lock Urinary Cath still in place: No Assessment/Plan Assessment/Plan 61-year-old female: 1. Left inner thigh chronic subcutaneous infiltration post varicose vein laser procedure 6 months ago, CT with findings of extensive, subcutaneous infiltration of the partially visualized lower leg with calcifications, likely chronic in nature. Calcified subcutaneous varicosities are also present Mild leukocytosis still on IV vancomycin that can be given with HD, blood cx negative, Continue Levaquin for now Pain control with Percocet prn. Morphine IV only as back up. Continue Neurontin Gen surgery for wound are eval, ? need I&D with Dr Almanza 2. End-stage renal disease on hemodialysis, on Friday/Friday/Friday schedule , Next hemodialysis tomorrow. Dr. Mccollum following. 3. Diabetes mellitus, BG better controlled, increase Lantus to 30 units subcutaneously QHS along with NovoLog up to 10 units subcutaneously q. AC and moderate sliding scale insulin. BG stable. Hemoglobin A1c 8.2 Continue Gabapentin for neuropathic pain 4. Hypertension: continue home meds Not dizzy today and BP stable. 5. Nausea/vomiting, resolved this AM. Continue Zofran as needed. 6. Super morbid obesity Prophylaxis: Protonix for GI prophylaxis, heparin subcu for DVT prophylaxis. Disposition: Gen Surgery eval, IV antibiotics, hemodialysis tomorrow. Subjective 24 Hr Interval Summary Free Text/Dictation Patient's neuropathic pain seems to be better controlled with Neurontin Tolerating po even off Reglan Will have Gen Surg eval patient today HD tomorrow and d/c plan pending need for I&D or not Exam/Review of Systems Vital Signs Vitals Vital Signs Date Time Temp Pulse Resp B/P Pulse Ox O2 Delivery O2 Flow Rate FiO2 03/02/17 07:45 98.5 64 18 122/60 93 03/01/17 20:00 Nasal Cannula 2.0 Intake and Output 03/01/17 03/01/17 03/02/17 15:00 23:00 07:00 Intake Total 660 ml 250 ml Output Total 2 ml 700 ml Balance 658 ml -450 ml Exam Constitutional: alert, obese (morbid), oriented, well developed Respiratory: clear to auscultation, normal air movement Cardiovascular: nl pulses, regular rate and rhythm Gastrointestinal: non-tender, soft Musculoskeletal: other (leftt lower inner thigh area with unchanged indurated area and eschar, purpilish color to it more visible today ) Extremities: normal pulses, other (no edema, clubbing or cyanosis ) Neurological: PARTS PROCESSOR II-XII intact, nl mental status, nl speech, other (strength at baseline ) Results Result Diagram: 03/02/17 0620 03/02/17 0620 Results 24 hrs Laboratory Tests Test 03/01/17 18:04 03/01/17 21:09 03/02/17 06:20 03/02/17 08:02 Bedside Glucose 213 171 177 White Blood Count 14.3 H Red Blood Count 2.93 L Hemoglobin 9.1 L Hematocrit 29.9 L Mean Corpuscular Volume 102.0 H Mean Corpuscular Hemoglobin 31.1 Mean Corpuscular Hemoglobin Concent 30.4 L Red Cell Distribution Width 14.6 H Platelet Count 283 Mean Platelet Volume 10.2 Neutrophils % 80.4 H Lymphocytes % 9.1 L Monocytes % 7.8 Eosinophils % 1.5 Basophils % 0.3 Nucleated Red Blood Cells % 0.0 Neutrophils # 11.5 H Lymphocytes # 1.3 Monocytes # 1.1 H Eosinophils # 0.2 Basophils # 0.1 Nucleated Red Blood Cells # 0.0 Sodium Level 133 L Potassium Level 5.1 Chloride Level 92 L Carbon Dioxide Level 26 Anion Gap 20 H Blood Urea Nitrogen 57 H Creatinine 6.62 H Glucose Level 179 Calcium Level 8.7 Phosphorus Level 9.0 H Magnesium Level 2.2 Random Vancomycin Level 15.5 Medications Medications Current Medications Aspirin (Halfprin) 81 mg DAILY PO Last administered on 03/02/17 09:16; Admin Dose 81 MG; Start 03/01/17 at 09:00 Hydralazine HCl (Apresoline) 50 mg BID PO Last administered on 03/02/17 09:16 ; Admin Dose 50 MG; Start 02/28/17 at 21:00 Losartan Potassium (Cozaar) 100 mg DAILY PO Last administered on 03/02/17 09: 16; Admin Dose 100 MG; Start 03/01/17 at 09:00 Ondansetron HCl (Zofran Inj) 4 mg Q6H PRN IV NAUSEA AND/OR VOMITING Last administered on 02/28/17 15:33; Admin Dose 4 MG; Start 02/28/17 at 15:30 Acetaminophen (Tylenol Tab) 650 mg Q6H PRN PO PAIN LEVEL 1-3 OR FEVER; Start at 15:30 Oxycodone/ Acetaminophen (Percocet (5/ 325)) 1 tab Q6H PRN PO MODERATE PAIN LEVEL 4-6 Last administered on 03/02/17 09:31; Admin Dose 1 TAB; Start at 15:30 Oxycodone/ Acetaminophen (Percocet (5/ 325)) 2 tab Q6H PRN PO SEVERE PAIN LEVEL 7-10 Last administered on 03/02/17 00:14; Admin Dose 2 TAB; Start at 15:30 Morphine Sulfate (morphine) 2 mg Q4H PRN IV SEVERE PAIN LEVEL 7-10 Last administered on 03/01/17 22:37; Admin Dose 2 MG; Start 02/28/17 at 15:30 Docusate Sodium (Colace) 100 mg Q12H PRN PO CONSTIPATION; Start 02/28/17 at 15: 30 Magnesium Hydroxide (Milk Of Mag) 30 ml DAILY PRN PO CONSTIPATION; Start at 15:30 Bisacodyl (Dulcolax Supp) 10 mg DAILY PRN [place] CONSTIPATION; Start 02/28/17 at 15 :30 Pantoprazole (Protonix Tab) 40 mg DAILY@06 PO Last administered on 03/02/17 05 :46; Admin Dose 40 MG; Start 03/01/17 at 06:00 Heparin Sodium (Porcine) (Heparin (5000 Units/0.5 ml)) 5,000 unit Q12 SC Last administered on 03/02/17 09:18; Admin Dose 5,000 UNIT; Start 02/28/17 at 21:00 Insulin Glargine (Lantus) 26 unit DAILY@20 SC Last administered on 03/01/17 21 :11; Admin Dose 26 UNIT; Start 02/28/17 at 20:00 Diagnostic Test (Pha) (Accu-Chek) 1 ea 02 XX ; Start 03/01/17 at 02:00 Miscellaneous Information 1 ea NOTE XX ; Start 02/28/17 at 15:30 Glucose (Glutose) 15 gm Q15M PRN PO DECREASED GLUCOSE; Start 02/28/17 at 15:30 Glucose (Glutose) 22.5 gm Q15M PRN PO DECREASED GLUCOSE; Start 02/28/17 at 15: 30 Dextrose (D50w Syringe) 25 ml Q15M PRN IV DECREASED GLUCOSE; Start 02/28/17 at 15:30 Dextrose (D50w Syringe) 50 ml Q15M PRN IV DECREASED GLUCOSE; Start 02/28/17 at 15:30 Glucagon (Glucagen) 1 mg Q15M PRN IM DECREASED GLUCOSE; Start 02/28/17 at 15:30 Glucose (Glutose) 15 gm Q15M PRN BUCCAL DECREASED GLUCOSE; Start 02/28/17 at 15 :30 Metoprolol Tartrate (Lopressor) 100 mg BID PO Last administered on 03/02/17 09 :23; Admin Dose 100 MG; Start 02/28/17 at 21:00 Metoclopramide HCl (Reglan) 5 mg Q6H PRN IV NAUSEA; Start 03/01/17 at 10:30 Gabapentin 100 mg 100 mg BID PO Last administered on 03/02/17 09:16; Admin Dose 100 MG; Start 03/01/17 at 10:30 Vancomycin HCl/ Sodium Chloride (Vancocin/NS) 250 ml @ 83.333 mls/ hr 16 IVPB ; Start 03/02/17 at 16:00; Stop 03/02/17 at 23:59 Levofloxacin (Levaquin) 750 mg Q48H PO ; Start 03/02/17 at 12:30; Status JASPREET HAND Mar 02, 2017 12:35
[2017-03-02] MEDS ORDERED: LEVOFLOXACIN 750 MG TABLET PO SCH (13:00)
[2017-03-02 13:38] VITALS: BP 107/55; PULSE 66
[2017-03-02] MEDS ORDERED: VANCOMYCIN 1.25 GM in SOD CHLORIDE 0.9% 250 ML IVPB SCH (16:00)
--- NOTE | 2017-03-02 16:49 | CONS ---
DATE OF ADMISSION: 02/28/2017 DATE OF CONSULTATION: 03/02/2017 TYPE OF CONSULTATION: Surgical. REFERRING PHYSICIAN: Dr. Karely Carlisle OTHER PHYSICIANS INVOLVED: 1. Dr. Edgar Lucia 2. Dr. eRddy Mcdaniel CHIEF COMPLAINT: 1. Left mid thigh scab with pain and infection, 6 months status post varicose vein laser treatment by Dr. Velazquez. 2. Morbid obesity with BMI of 50. 3. Hypertension. 4. End-stage renal disease on dialysis. 5. Diabetes. 6. Anemia. 7. Leukocytosis. HISTORY OF PRESENT ILLNESS: Chaparrita Seth is a 61-year-old female with significant comorbidities wh o had laser treatment by vascular surgeon, Dr. Velazquez, about 6 months ago for varicose vein and since then she has had pain and inflammation. The patient has been in and out of the hospital for treatme nt as per her recollection and she now represents with worsening pain without fevers, chills, nausea , vomiting, chest pain, no shortness of breath. No cough or seizure. No blood per mouth or rectum. No abnormal discharge. Patient has leukocytosis, but she is afebrile with stable vitals. CT scan of the lower extremity id entifies no drainable fluid collection; however, there is chronically partially visualized subcutane ous infiltration and scattered calcifications of the lower leg with atherosclerotic vascular calcifi cations. Surgical consult is obtained for further evaluation and treatment. PAST MEDICAL HISTORY: 1. Morbid obesity with BMI of 59. 2. Diabetes. 3. Hypertension. 3. End-stage renal disease on hemodialysis. 4. Varicose veins. 5. Peripheral vascular disease. 6. Atherosclerotic vascular disease. 7. Hyponatremia. 8. Anemia. 9. Leukocytosis. 10. Left lower extremity chronic infection/cellulitis. 11. Left ear hearing loss. 12. Rheumatoid arthritis. PAST SURGICAL HISTORY: 1. Fistulas. 2. Shoulder surgery. 3. Left lower extremity laser vascular treatment for varicose veins. MEDICATIONS: As per JAN. ALLERGIES: CODEINE. SOCIAL HISTORY: Denies alcohol, drugs or tobacco. FAMILY HISTORY: Noncontributory. REVIEW OF SYSTEMS: A 12-point review of systems negative other than that addressed in the HPI. PHYSICAL EXAMINATION: VITAL SIGNS: Temperature is 98.5, pulse 60s, blood pressure 122/60, saturating 92% on 2 liters. GENERAL: Morbid obesity, no acute distress. HEENT: Pupils equal and reactive without scleral icterus. Mucous membranes are moist. NECK: Obese, no crepitus, no JVD observable. PULMONARY: Normal respiratory effort. No wheezing. HEART: S1, S2 present. ABDOMEN: Soft, morbidly obese, nontender. No rebound. EXTREMITIES: With some edema. Left inner thigh with induration and eschar without fluctuance. VASCULAR: Capillary refill is 2 seconds. NEUROLOGIC: Alert, oriented, moves all 4 extremities grossly. LABORATORY AND RADIOGRAPHIC: As per chart and HPI. ASSESSMENT AND PLAN: Chaparrita Seth is a 61-year-old female with multiple significant comorbidities . 1. Left inner thigh chronic cellulitis and infection after laser varicose vein therapy. Continue an tibiotics, warm compress, elevation and will defer to vascular surgeon, Dr. Velazquez. 2. Morbid obesity with BMI of 50. The patient is highly encouraged to optimize her nutrition and ex ercise to improve her overall health status. If she is not successful by that route, she may seek w eight loss surgery. 3. Diabetes. Continue nutrition and medication control and encourage weight loss. 4. Hypertension. Continue nutrition and medication control, encourage weight loss. 5. Anemia without evidence of acute blood loss. Continue monitoring and workup per medical and GI. 6. Leukocytosis, probably secondary to #1 as above. 7. Rheumatoid arthritis. Continue medical optimization. 8. Electrolyte abnormalities with end-stage renal disease on hemodialysis. Continue judicious flui d management and dialysis. Thank you very much for consulting me in this patient's care. Dictated By: ALFREDO QUIÑONES/VICTORINA Conf#: [id number] DID#: [id number]
[2017-03-02] MEDS: INSULIN GLARGINE [LANtus] 3 ML PEN SC SCH (20:49)
[2017-03-02 21:10] VITALS: BP 129/59; RESP 20
[2017-03-03] VITALS (9 sets, daily range): BP systolic 112–145; BP diastolic 55–79; PULSE 62–66; RESP 18–21
[2017-03-03] MEDS: ACCU-CHEK XX SCH (02:00)
[2017-03-03] MEDS: PANTOPRAZOLE (EC) 40 MG TAB PO SCH (05:51)
[2017-03-03] MEDS: FUROSEMIDE 40 MG TAB PO SCH ×2 (05:53→17:16)
[2017-03-03 05:58] LABS: ADD SCAN DIFF NO
[2017-03-03 06:10] LABS: BASOPHILS % 0.2 % (0.0-2.0); EOSINOPHILS # 0.2 10^3/ul (0.0-0.5); EOSINOPHILS % 1.7 % (0.0-7.0); HEMATOCRIT 28.8 % (37.0-47.0); LYMPHOCYTES # 1.3 10^3/ul (0.8-2.9); LYMPHOCYTES % 10.1 % (15.0-51.0); MEAN CORPUSCULAR HEMOGLOBIN 31.1 pg (29.0-33.0); MEAN CORPUSCULAR HGB CONC 31.3 g/dl (32.0-37.0); MEAN CORPUSCULAR VOLUME 99.7 fl (82.0-101.0); MEAN PLATELET VOLUME 10.4 fl (7.4-10.4); MONOCYTE # 1.2 10^3/ul (0.3-0.9); MONOCYTES % 9.2 % (0.0-11.0); NEUTROPHIL # 10.4 10^3/ul (1.6-7.5); PLATELET COUNT 259 10^3/UL (140-415); RED BLOOD COUNT 2.89 10^6/ul (4.20-5.40); RED CELL DISTRIBUTION WIDTH 14.6 % (11.5-14.5); WHITE BLOOD COUNT 13.3 10^3/ul (4.8-10.8)
[2017-03-03 06:21] LABS: POTASSIUM 5.5 mmol/L (3.5-5.1)
[2017-03-03 06:24] LABS: CREATININE 7.37 mg/dl (0.44-1.00)
[2017-03-03 06:25] LABS: CALCIUM 8.4 mg/dl (8.4-10.2)
[2017-03-03] MEDS: OXYCODONE/ACETAMINOPHEN (5/325) TAB PO PRN ×3 (07:15→17:17)
[2017-03-03] MEDS: GABAPENTIN 100 MG CAP PO SCH ×2 (08:55→20:56)
[2017-03-03] MEDS: LOSARTAN 50 MG TAB PO SCH (08:57)
[2017-03-03] MEDS: METOPROLOL 100 MG TAB PO SCH ×2 (08:57→20:57)
[2017-03-03] MEDS: LEVOTHYROXINE 100 MCG TAB PO SCH (08:58)
[2017-03-03] MEDS: ASPIRIN (EC) 81 MG TAB PO SCH (08:58)
[2017-03-03] MEDS: HEPARIN 5,000 UNIT/0.5 ML VIAL SC SCH ×2 (09:00→21:04)
[2017-03-03] MEDS: INSULIN ASPART [NOVOLOG] 3 ML PEN SC SCH ×7 (09:01→21:03)
--- NOTE | 2017-03-03 10:34 | PN ---
Date/Time of Note Date/Time of Note DATE: 03/03/17 TIME: 10:33 Assessment/Plan VTE Prophylaxis VTE Prophylaxis Intervention: heparin Lines/Catheters IV Catheter Type (from Nrs): Saline Lock Urinary Cath still in place: No Assessment/Plan Assessment/Plan 61-year-old female: 1. Left inner thigh chronic subcutaneous infiltration post varicose vein laser procedure 6 months ago, CT with findings of extensive, subcutaneous infiltration of the partially visualized lower leg with calcifications, likely chronic in nature. Calcified subcutaneous varicosities are also present Mild leukocytosis still on IV vancomycin that can be given with HD, blood cx negative, Continue Levaquin for now Pain control with Percocet prn. Morphine IV only as back up. Continue Neurontin Appreciate recs from Dr Almanza, likely need I&D with Dr Almanza and Vascular to re eval 2. End-stage renal disease on hemodialysis, on Friday/Friday/Friday schedule , HD today. Dr. Mccollum following. 3. Diabetes mellitus, BG better controlled, increase Lantus to 30 units subcutaneously QHS along with NovoLog up to 10 units subcutaneously q. AC and moderate sliding scale insulin. BG stable. Hemoglobin A1c 8.2 Continue Gabapentin for neuropathic pain 4. Hypertension: continue home meds. BP stable. 5. Nausea/vomiting, resolved so far. Continue Zofran as needed. 6. Super morbid obesity Prophylaxis: Protonix for GI prophylaxis, heparin subcu for DVT prophylaxis. Disposition: Gen Surgery following, IV antibiotics, hemodialysis today. Subjective 24 Hr Interval Summary Free Text/Dictation Patient complaining of pain again Appreciate recs from Dr Almanza and plan for possible I&D after Vascular re eval Afebrile and WBC slightly up but mostly unchanged HD today Exam/Review of Systems Vital Signs Vitals Vital Signs Date Time Temp Pulse Resp B/P Pulse Ox O2 Delivery O2 Flow Rate FiO2 03/03/17 07:40 98.1 74 18 145/61 100 03/02/17 20:00 Nasal Cannula 2.0 Intake and Output 03/02/17 03/02/17 03/03/17 15:00 23:00 07:00 Intake Total 780 ml 650 ml Balance 780 ml 650 ml Exam Constitutional: alert, obese (morbid), oriented, well developed Respiratory: clear to auscultation, normal air movement Cardiovascular: nl pulses, regular rate and rhythm Gastrointestinal: non-tender, soft Musculoskeletal: nl gait and stance, other (left inner thigh with induration and eschar and TTP , also induration right inner thigh opposite minimal TTP ) Extremities: normal pulses, other (no edema, clubbing or cyanosis ) Neurological: BOAT TESTER II-XII intact, nl mental status, nl speech, other (baseline strength ) Results Result Diagram: 03/03/17 0510 03/03/17 0510 Results 24 hrs Laboratory Tests Test 03/02/17 12:25 03/02/17 17:28 03/02/17 20:39 03/03/17 01:53 Bedside Glucose 210 285 H 203 119 Test 03/03/17 05:10 03/03/17 07:53 White Blood Count 13.3 H Red Blood Count 2.89 L Hemoglobin 9.0 L Hematocrit 28.8 L Mean Corpuscular Volume 99.7 Mean Corpuscular Hemoglobin 31.1 Mean Corpuscular Hemoglobin Concent 31.3 L Red Cell Distribution Width 14.6 H Platelet Count 259 Mean Platelet Volume 10.4 Neutrophils % 78.0 H Lymphocytes % 10.1 L Monocytes % 9.2 Eosinophils % 1.7 Basophils % 0.2 Nucleated Red Blood Cells % 0.0 Neutrophils # 10.4 H Lymphocytes # 1.3 Monocytes # 1.2 H Eosinophils # 0.2 Basophils # 0.0 Nucleated Red Blood Cells # 0.0 Sodium Level 129 L Potassium Level 5.5 H Chloride Level 91 L Carbon Dioxide Level 23 Anion Gap 21 H Blood Urea Nitrogen 70 H Creatinine 7.37 H Glucose Level 141 Calcium Level 8.4 Phosphorus Level 10.6 H Bedside Glucose 163 Medications Medications Current Medications Aspirin (Halfprin) 81 mg DAILY PO Last administered on 03/03/17 08:58; Admin Dose 81 MG; Start 03/01/17 at 09:00 Hydralazine HCl (Apresoline) 50 mg BID PO Last administered on 03/03/17 08:58 ; Admin Dose 50 MG; Start 02/28/17 at 21:00 Losartan Potassium (Cozaar) 100 mg DAILY PO Last administered on 03/03/17 08: 57; Admin Dose 100 MG; Start 03/01/17 at 09:00 Ondansetron HCl (Zofran Inj) 4 mg Q6H PRN IV NAUSEA AND/OR VOMITING Last administered on 02/28/17 15:33; Admin Dose 4 MG; Start 02/28/17 at 15:30 Acetaminophen (Tylenol Tab) 650 mg Q6H PRN PO PAIN LEVEL 1-3 OR FEVER; Start at 15:30 Oxycodone/ Acetaminophen (Percocet (5/ 325)) 1 tab Q6H PRN PO MODERATE PAIN LEVEL 4-6 Last administered on 03/03/17 07:15; Admin Dose 1 TAB; Start at 15:30 Oxycodone/ Acetaminophen (Percocet (5/ 325)) 2 tab Q6H PRN PO SEVERE PAIN LEVEL 7-10 Last administered on 03/02/17 18:53; Admin Dose 2 TAB; Start at 15:30 Morphine Sulfate (morphine) 2 mg Q4H PRN IV SEVERE PAIN LEVEL 7-10 Last administered on 03/01/17 22:37; Admin Dose 2 MG; Start 02/28/17 at 15:30 Docusate Sodium (Colace) 100 mg Q12H PRN PO CONSTIPATION Last administered on 05:53; Admin Dose 100 MG; Start 02/28/17 at 15:30 Magnesium Hydroxide (Milk Of Mag) 30 ml DAILY PRN PO CONSTIPATION; Start at 15:30 Bisacodyl (Dulcolax Supp) 10 mg DAILY PRN [place] CONSTIPATION; Start 02/28/17 at 15 :30 Pantoprazole (Protonix Tab) 40 mg DAILY@06 PO Last administered on 03/03/17 05 :51; Admin Dose 40 MG; Start 03/01/17 at 06:00 Heparin Sodium (Porcine) (Heparin (5000 Units/0.5 ml)) 5,000 unit Q12 SC Last administered on 03/02/17 20:47; Admin Dose 5,000 UNIT; Start 02/28/17 at 21:00 Diagnostic Test (Pha) (Accu-Chek) 1 ea 02 XX ; Start 03/01/17 at 02:00 Miscellaneous Information 1 ea NOTE XX ; Start 02/28/17 at 15:30 Glucose (Glutose) 15 gm Q15M PRN PO DECREASED GLUCOSE; Start 02/28/17 at 15:30 Glucose (Glutose) 22.5 gm Q15M PRN PO DECREASED GLUCOSE; Start 02/28/17 at 15: 30 Dextrose (D50w Syringe) 25 ml Q15M PRN IV DECREASED GLUCOSE; Start 02/28/17 at 15:30 Dextrose (D50w Syringe) 50 ml Q15M PRN IV DECREASED GLUCOSE; Start 02/28/17 at 15:30 Glucagon (Glucagen) 1 mg Q15M PRN IM DECREASED GLUCOSE; Start 02/28/17 at 15:30 Glucose (Glutose) 15 gm Q15M PRN BUCCAL DECREASED GLUCOSE; Start 02/28/17 at 15 :30 Metoprolol Tartrate (Lopressor) 100 mg BID PO Last administered on 03/03/17 08 :57; Admin Dose 100 MG; Start 02/28/17 at 21:00 Metoclopramide HCl (Reglan) 5 mg Q6H PRN IV NAUSEA; Start 03/01/17 at 10:30 Gabapentin (Neurontin) 100 mg BID PO Last administered on 03/03/17 08:55; Admin Dose 100 MG; Start 03/01/17 at 10:30 Insulin Glargine (Lantus) 30 unit DAILY@20 SC Last administered on 03/02/17 20 :49; Admin Dose 30 UNIT; Start 03/02/17 at 20:00 Levofloxacin (Levaquin) 500 mg Q48H PO ; Start 03/04/17 at 13:00 JASPREET SMITH Mar 03, 2017 10:34
--- NOTE | 2017-03-03 10:44 | CONS ---
Date/Time of Note Date/Time of Note DATE: 03/03/17 TIME: 10:42 Assessment/Plan Assessment/Plan Chief Complaint/Hosp Course - ESRD - ANEMIA - HTN - DM - OBESITY - CELLULITIS PLAN: She is on dialysis MWF, plan for HD today Ongoing Leg pain ? plan for surgery / debridement Monitor labs EPOGEN for Anemia to maintain Hgb >~ 10 D/C MOM Check Iron status Check Phos THANK YOU V. MUCH Problems: Consultation Date/Type/Reason Admit Date/Time Feb 28, 2017 at 12:25 Initial Consult Date 02/28/17 Type of Consultation: NEPHROLOGY Reason for Consultation - ESRD on Hemodialysis 24 HR Interval Summary Constitutional: improved Exam/Review of Systems Vital Signs Vitals Vital Signs Date Time Temp Pulse Resp B/P Pulse Ox O2 Delivery O2 Flow Rate FiO2 03/03/17 07:40 98.1 74 18 145/61 100 03/02/17 20:00 Nasal Cannula 2.0 Intake and Output 03/02/17 03/02/17 03/03/17 15:00 23:00 07:00 Intake Total 780 ml 650 ml Balance 780 ml 650 ml Exam Constitutional: alert, oriented Psych: no complaints Respiratory: crackles/rales Cardiovascular: edema, systolic murmur Gastrointestinal: soft Results Result Diagram: 03/03/17 0510 03/03/17 0510 Results 24 hrs Laboratory Tests Test 03/02/17 12:25 03/02/17 17:28 03/02/17 20:39 03/03/17 01:53 Bedside Glucose 210 285 H 203 119 Test 03/03/17 05:10 03/03/17 07:53 White Blood Count 13.3 H Red Blood Count 2.89 L Hemoglobin 9.0 L Hematocrit 28.8 L Mean Corpuscular Volume 99.7 Mean Corpuscular Hemoglobin 31.1 Mean Corpuscular Hemoglobin Concent 31.3 L Red Cell Distribution Width 14.6 H Platelet Count 259 Mean Platelet Volume 10.4 Neutrophils % 78.0 H Lymphocytes % 10.1 L Monocytes % 9.2 Eosinophils % 1.7 Basophils % 0.2 Nucleated Red Blood Cells % 0.0 Neutrophils # 10.4 H Lymphocytes # 1.3 Monocytes # 1.2 H Eosinophils # 0.2 Basophils # 0.0 Nucleated Red Blood Cells # 0.0 Sodium Level 129 L Potassium Level 5.5 H Chloride Level 91 L Carbon Dioxide Level 23 Anion Gap 21 H Blood Urea Nitrogen 70 H Creatinine 7.37 H Glucose Level 141 Calcium Level 8.4 Phosphorus Level 10.6 H Bedside Glucose 163 Medications Medications Current Medications Aspirin (Halfprin) 81 mg DAILY PO Last administered on 03/03/17 08:58; Admin Dose 81 MG; Start 03/01/17 at 09:00 Hydralazine HCl (Apresoline) 50 mg BID PO Last administered on 03/03/17 08:58 ; Admin Dose 50 MG; Start 02/28/17 at 21:00 Losartan Potassium (Cozaar) 100 mg DAILY PO Last administered on 03/03/17 08: 57; Admin Dose 100 MG; Start 03/01/17 at 09:00 Ondansetron HCl (Zofran Inj) 4 mg Q6H PRN IV NAUSEA AND/OR VOMITING Last administered on 02/28/17 15:33; Admin Dose 4 MG; Start 02/28/17 at 15:30 Acetaminophen (Tylenol Tab) 650 mg Q6H PRN PO PAIN LEVEL 1-3 OR FEVER; Start at 15:30 Oxycodone/ Acetaminophen (Percocet (5/ 325)) 1 tab Q6H PRN PO MODERATE PAIN LEVEL 4-6 Last administered on 03/03/17 07:15; Admin Dose 1 TAB; Start at 15:30 Oxycodone/ Acetaminophen (Percocet (5/ 325)) 2 tab Q6H PRN PO SEVERE PAIN LEVEL 7-10 Last administered on 03/02/17 18:53; Admin Dose 2 TAB; Start at 15:30 Morphine Sulfate (morphine) 2 mg Q4H PRN IV SEVERE PAIN LEVEL 7-10 Last administered on 03/01/17 22:37; Admin Dose 2 MG; Start 02/28/17 at 15:30 Docusate Sodium (Colace) 100 mg Q12H PRN PO CONSTIPATION Last administered on 05:53; Admin Dose 100 MG; Start 02/28/17 at 15:30 Magnesium Hydroxide (Milk Of Mag) 30 ml DAILY PRN PO CONSTIPATION; Start at 15:30 Bisacodyl (Dulcolax Supp) 10 mg DAILY PRN [place] CONSTIPATION; Start 02/28/17 at 15 :30 Pantoprazole (Protonix Tab) 40 mg DAILY@06 PO Last administered on 03/03/17 05 :51; Admin Dose 40 MG; Start 03/01/17 at 06:00 Heparin Sodium (Porcine) (Heparin (5000 Units/0.5 ml)) 5,000 unit Q12 SC Last administered on 03/02/17 20:47; Admin Dose 5,000 UNIT; Start 02/28/17 at 21:00 Diagnostic Test (Pha) (Accu-Chek) 1 ea 02 XX ; Start 03/01/17 at 02:00 Miscellaneous Information 1 ea NOTE XX ; Start 02/28/17 at 15:30 Glucose (Glutose) 15 gm Q15M PRN PO DECREASED GLUCOSE; Start 02/28/17 at 15:30 Glucose (Glutose) 22.5 gm Q15M PRN PO DECREASED GLUCOSE; Start 02/28/17 at 15: 30 Dextrose (D50w Syringe) 25 ml Q15M PRN IV DECREASED GLUCOSE; Start 02/28/17 at 15:30 Dextrose (D50w Syringe) 50 ml Q15M PRN IV DECREASED GLUCOSE; Start 02/28/17 at 15:30 Glucagon (Glucagen) 1 mg Q15M PRN IM DECREASED GLUCOSE; Start 02/28/17 at 15:30 Glucose (Glutose) 15 gm Q15M PRN BUCCAL DECREASED GLUCOSE; Start 02/28/17 at 15 :30 Metoprolol Tartrate (Lopressor) 100 mg BID PO Last administered on 03/03/17 08 :57; Admin Dose 100 MG; Start 02/28/17 at 21:00 Metoclopramide HCl (Reglan) 5 mg Q6H PRN IV NAUSEA; Start 03/01/17 at 10:30 Gabapentin (Neurontin) 100 mg BID PO Last administered on 03/03/17 08:55; Admin Dose 100 MG; Start 03/01/17 at 10:30 Insulin Glargine (Lantus) 30 unit DAILY@20 SC Last administered on 03/02/17 20 :49; Admin Dose 30 UNIT; Start 03/02/17 at 20:00 Levofloxacin (Levaquin) 500 mg Q48H PO ; Start 03/04/17 at 13:00 ANIBAL ALMANZAR MD Mar 03, 2017 10:44
--- NOTE | 2017-03-03 11:16 | CONS ---
DATE OF ADMISSION: 02/28/2017 DATE OF CONSULTATION: 03/03/2017 REFERRING PHYSICIAN: Dr. Smith REASON FOR CONSULTATION: Left medial thigh chronic pain and induration. HISTORY OF PRESENT ILLNESS: This is a 61-year-old woman and she has multiple medical problems. She is diabetic, hypertensive. She has end-stage renal disease on dialysis. She has severe bilateral lower extremity venous insufficiency. She has super obesity and underwent a left greater saphenous vein ablation about 6 months ago in the office with Dr. Velazquez. Since then she has had a lot of indur ation and has an eschar in the mid thigh at the site of the puncture even now 6 months later. She h ad a CAT scan done of the thigh yesterday which showed no abscess really just a lot of inflammation and edema. There is also a lot of calcified varicose veins underneath that area of induration in th e thigh. She came here to the emergency room just because of pain. She has been to [facility]. She has been on antibiotics for quite a while. PAST MEDICAL HISTORY: Significant for diabetes, hypertension, end-stage renal disease, super obesit y with BMI greater than 50, venous insufficiency of the lower extremities. She has reflux. PAST SURGICAL HISTORY: Significant for multiple upper extremity surgeries, left shoulder x2, left e lbow, carpal tunnel on the left and the right. She has a right radiocephalic AV fistula which has b een actually functioning well for the last couple of weeks. She has a Perm-A-Cath still in the [facility]. She had the left great saphenous venous ablation 6 months ago. MEDICATIONS: Consist of: 1. Aspirin. 2. Hydralazine. 3. Losartan. 4. Lopressor. 5. Zofran. 6. Tylenol. 7. Percocet. 8. Morphine. 9. Dulcolax. 10. Subcutaneous heparin. 11. Levaquin. 12. Insulin. SOCIAL HISTORY: She is a nonsmoker. Does not drink or use any illicit drugs. She walks with a wal ker because of her massive obesity. REVIEW OF SYSTEMS: Currently, she denies any chest pain, shortness of breath, nausea, vomiting, logan rrhea. No fever, no chills, no recent weight gain or weight loss. No abdominal or back pain. She has this induration and varicose veins in both legs. She actually has it on the right side as well a s the left, but it is more tender and painful on the left. PHYSICAL EXAMINATION: GENERAL: She is an elderly woman. She is fluent in [place]. She is super morbidly obese. VITAL SIGNS: She has been afebrile. Blood pressure is 129/59, heart rate 65, respiratory rate is 2 0, she is 94% sat on 2 liters nasal cannula. NECK: 2+ carotid pulses bilaterally. She has a right IJ Perm-A-Cath. She has a right radiocephalic AV fistula has a good thrill. Left arm has some ecchymosis looks where they tried to put an IV in. LUNGS: Clear. HEART: Regular rate and rhythm. ABDOMEN: Massively obese, nontender. EXTREMITIES: I do not feel pedal pulses in either lower extremities. She has severe chronic venous stasis changes in the calves and ankles bilaterally. She has very indurated chronic inflamed areas in both medial thighs actually there is just as much on the right as the left, on the left which is where the ablation was there is an eschar in the distal thigh, mid to distal thigh. It is very dry. There is no drainage. It is very tender in that area. CAT scan just shows a lot of inflammation a nd nothing really to suggest an abscess or any drainable collection. IMPRESSION: Chronic inflammation in the medial thighs bilaterally. The CAT scan shows that these a re calcified varicose veins. Her left great saphenous is now ablated. This looks like she has naresh oing inflammation I think mainly just because of her severe obesity and chronic inflammation due to venous hypertension even though the saphenous vein is now ablated. She has high venous pressures jus t from her morbid obesity. There is a small eschar there. I would agree with Dr. Almanza's plan for warm soaks and antibiotics. I do not see any abscess which needs to be drained but potentially the eschar might need to be debrided but there really is no contraindication in this from a vascular [facility]. Dictated By: ALIREZA SANDRA/VICTORINA Conf#: [id number] DID#: [id number] CC: ; JASPREET SMITH MD; ALFREDO ALMANZA MD; DOMINIQUE LUND MD;*EndCC*
[2017-03-03] MEDS: SEVELAMER 800 MG TAB PO SCH ×2 (12:03→17:16)
--- NOTE | 2017-03-03 12:28 | PN ---
Date/Time of Note Date/Time of Note DATE: 03/03/17 TIME: 12:26 Assessment/Plan Lines/Catheters IV Catheter Type (from Nrs): Saline Lock [place] in Place (from Nrs): No Assessment/Plan Chief Complaint/Hosp Course 1. Left inner thigh chronic cellulitis and infection s/p saphenous vein ablation. -antibiotics, -warm compress, -elevation -encourage weight loss -debridement of eschar to be planned after medical optimization 2. Morbid obesity with BMI of 50. The patient is highly encouraged to optimize her nutrition and exercise to improve her overall health status. If she is not successful by that route, she may seek weight loss surgery. 3. Diabetes. Continue nutrition and medication control and encourage weight loss. 4. Hypertension. Continue nutrition and medication control, encourage weight loss. 5. Anemia without evidence of acute blood loss. Continue monitoring and workup per medical and GI. 6. Leukocytosis, probably secondary to #1 as above. 7. Rheumatoid arthritis. Continue medical optimization. 8. Electrolyte abnormalities with end-stage renal disease on hemodialysis. Continue judicious fluid management and dialysis. Thank you Problems: Subjective 24 Hr Interval Summary Vascular input appreciated. Min pain at site. No f/c. No n/v. No cp/sob. No cough. No hoffman/dizzy/visual or neuro changes. No dc. Exam/Review of Systems Vital Signs Vitals Vital Signs Date Time Temp Pulse Resp B/P Pulse Ox O2 Delivery O2 Flow Rate FiO2 03/03/17 07:40 98.1 74 18 145/61 100 03/02/17 20:00 Nasal Cannula 2.0 Intake and Output 03/02/17 03/02/17 03/03/17 15:00 23:00 07:00 Intake Total 780 ml 650 ml Balance 780 ml 650 ml Exam Free Text/Dictation GENERAL: Morbid obesity, no acute distress. HEENT: Pupils equal and reactive without scleral icterus. Mucous membranes are moist. NECK: Obese, no crepitus, no JVD observable. PULMONARY: Normal respiratory effort. No wheezing. HEART: S1, S2 present. ABDOMEN: Soft, morbidly obese, nontender. No rebound. EXTREMITIES: With some edema. Left inner thigh with induration and eschar without fluctuance. VASCULAR: Capillary refill is 2 seconds. NEUROLOGIC: Alert, oriented, moves all 4 extremities grossly. Results Result Diagram: 03/03/17 0510 03/03/17 0510 ALFREDO SANCHEZ MD Mar 03, 2017 12:28
[2017-03-03] MEDS: EPOETIN 4000 UNITS/1 ML INJ (ESRD) SC SCH (18:29)
[2017-03-03] MEDS: INSULIN GLARGINE [LANtus] 3 ML PEN SC SCH (21:00)
[2017-03-04] MEDS: ACCU-CHEK XX SCH (02:00)
[2017-03-04] MEDS: FUROSEMIDE 40 MG TAB PO SCH ×2 (06:05→17:28)
[2017-03-04] MEDS: PANTOPRAZOLE (EC) 40 MG TAB PO SCH (06:06)
[2017-03-04 07:37] VITALS: BP 117/55; RESP 18
[2017-03-04] MEDS: INSULIN ASPART [NOVOLOG] 3 ML PEN SC SCH ×7 (08:20→20:46)
[2017-03-04] MEDS: SEVELAMER 800 MG TAB PO SCH ×3 (09:04→17:28)
[2017-03-04] MEDS: ASPIRIN (EC) 81 MG TAB PO SCH (09:04)
[2017-03-04] MEDS: LEVOTHYROXINE 100 MCG TAB PO SCH (09:04)
[2017-03-04] MEDS: GABAPENTIN 100 MG CAP PO SCH ×2 (09:04→20:38)
[2017-03-04] MEDS: METOPROLOL 100 MG TAB PO SCH ×2 (09:05→20:38)
[2017-03-04] MEDS: LOSARTAN 50 MG TAB PO SCH (09:05)
[2017-03-04] MEDS: HEPARIN 5,000 UNIT/0.5 ML VIAL SC SCH ×2 (09:07→20:44)
[2017-03-04 10:52] LABS: ADD SCAN DIFF NO
[2017-03-04 11:08] LABS: INR 1.17; PT RATIO 1.2
[2017-03-04 11:09] LABS: BASOPHIL # 0.1 10^3/ul (0.0-0.1); BASOPHILS % 0.4 % (0.0-2.0); EOSINOPHILS # 0.1 10^3/ul (0.0-0.5); EOSINOPHILS % 0.6 % (0.0-7.0); HEMATOCRIT 28.6 % (37.0-47.0); LYMPHOCYTES # 1.1 10^3/ul (0.8-2.9); LYMPHOCYTES % 8.3 % (15.0-51.0); MEAN CORPUSCULAR HEMOGLOBIN 31.7 pg (29.0-33.0); MEAN CORPUSCULAR HGB CONC 31.5 g/dl (32.0-37.0); MEAN CORPUSCULAR VOLUME 100.7 fl (82.0-101.0); MEAN PLATELET VOLUME 10.2 fl (7.4-10.4); MONOCYTE # 1.2 10^3/ul (0.3-0.9); MONOCYTES % 8.9 % (0.0-11.0); NEUTROPHIL # 10.6 10^3/ul (1.6-7.5); NEUTROPHILS % 80.8 % (39.0-77.0); PARTIAL THROMBOPLASTIN TIME 38.6 Sec (25.0-35.0); PLATELET COUNT 293 10^3/UL (140-415); RED BLOOD COUNT 2.84 10^6/ul (4.20-5.40); RED CELL DISTRIBUTION WIDTH 14.6 % (11.5-14.5); WHITE BLOOD COUNT 13.2 10^3/ul (4.8-10.8)
[2017-03-04 11:15] LABS: MAGNESIUM 2.2 mg/dl (1.7-2.5); PHOSPHORUS 7.1 mg/dl (2.5-4.9)
[2017-03-04 11:16] LABS: CALCIUM 8.8 mg/dl (8.4-10.2); CREATININE 5.92 mg/dl (0.44-1.00); POTASSIUM 4.5 mmol/L (3.5-5.1)
[2017-03-04] MEDS: OXYCODONE/ACETAMINOPHEN (5/325) TAB PO PRN (11:20)
--- NOTE | 2017-03-04 11:54 | PN ---
Date/Time of Note Date/Time of Note DATE: 03/04/17 TIME: 11:46 Assessment/Plan VTE Prophylaxis VTE Prophylaxis Intervention: heparin Lines/Catheters IV Catheter Type (from Nrs): Saline Lock Urinary Cath still in place: No Assessment/Plan Assessment/Plan 61-year-old female: 1. Left inner thigh chronic subcutaneous infiltration post varicose vein laser procedure 6 months ago, CT with findings of extensive, subcutaneous infiltration of the partially visualized lower leg with calcifications, likely chronic in nature. Calcified subcutaneous varicosities are also present Mild leukocytosis persistent, on IV vancomycin and po Levaquin Blood cx negative. Pain control with Percocet prn. Morphine IV only as back up. Continue Neurontin Appreciate recs from Dr Almanza, debridement of eschar pending. Low grade temp this AM but area looks better Patient medically stable for procedure, she on HD chronically. 2. End-stage renal disease on hemodialysis, on Friday/Friday/Friday schedule. Dr. Mccollum following. 3. Diabetes mellitus, BG better controlled, continue Lantus to 30 units subcutaneously QHS along with NovoLog up to 10 units subcutaneously q. AC and moderate sliding scale insulin. BG stable. Hemoglobin A1c 8.2 Continue Gabapentin for neuropathic pain 4. Hypertension: continue home meds. BP stable. 5. Super morbid obesity Prophylaxis: Protonix for GI prophylaxis, heparin subcu for DVT prophylaxis. Disposition: Gen Surgery following, IV antibiotics, hemodialysis M/W/F. Subjective 24 Hr Interval Summary Free Text/Dictation Patient doing Ok and remains stable. Pain controlled and labs stable for HD patient, medically stable for debridement of eschar when scheduled by Gen Surg Exam/Review of Systems Vital Signs Vitals Vital Signs Date Time Temp Pulse Resp B/P Pulse Ox O2 Delivery O2 Flow Rate FiO2 03/04/17 07:37 100.2 70 18 117/55 90 03/03/17 20:00 Nasal Cannula 2.0 Intake and Output 03/03/17 03/03/17 03/04/17 15:00 23:00 07:00 Intake Total 970 ml 650 ml Output Total 3500 ml Balance -2530 ml 650 ml Exam Constitutional: alert, obese (morbid), oriented, well developed Respiratory: clear to auscultation, normal air movement Cardiovascular: nl pulses, regular rate and rhythm Gastrointestinal: non-tender, soft Musculoskeletal: other (left inner thigh much better today, less TTP and induration) Extremities: normal pulses Neurological: DIRECTOR OF MANAGED CARE II-XII intact, nl mental status, nl speech, other (strength at baseline ) Results Result Diagram: 03/04/1792903/04/17929 Results 24 hrs Laboratory Tests Test 03/03/17 11:54 03/03/17 17:15 03/03/17 20:54 03/04/17 02:01 Bedside Glucose 144 136 202 280 H Test 03/04/17 07:49 03/04/17 09:30 Bedside Glucose 178 White Blood Count 13.2 H Red Blood Count 2.84 L Hemoglobin 9.0 L Hematocrit 28.6 L Mean Corpuscular Volume 100.7 Mean Corpuscular Hemoglobin 31.7 Mean Corpuscular Hemoglobin Concent 31.5 L Red Cell Distribution Width 14.6 H Platelet Count 293 Mean Platelet Volume 10.2 Neutrophils % 80.8 H Lymphocytes % 8.3 L Monocytes % 8.9 Eosinophils % 0.6 Basophils % 0.4 Nucleated Red Blood Cells % 0.0 Neutrophils # 10.6 H Lymphocytes # 1.1 Monocytes # 1.2 H Eosinophils # 0.1 Basophils # 0.1 Nucleated Red Blood Cells # 0.0 Prothrombin Time 15.0 H Prothrombin Time Ratio 1.2 INR International Normalized Ratio 1.17 Activated Partial Thromboplast Time 38.6 H Sodium Level 133 L Potassium Level 4.5 Chloride Level 96 L Carbon Dioxide Level 25 Anion Gap 17 H Blood Urea Nitrogen 45 #H Creatinine 5.92 H Glucose Level 198 Calcium Level 8.8 Phosphorus Level 7.1 #H Magnesium Level 2.2 Medications Medications Current Medications Aspirin (Halfprin) 81 mg DAILY PO Last administered on 03/04/17 09:04; Admin Dose 81 MG; Start 03/01/17 at 09:00 Hydralazine HCl (Apresoline) 50 mg BID PO Last administered on 03/04/17 09:06 ; Admin Dose 50 MG; Start 02/28/17 at 21:00 Losartan Potassium (Cozaar) 100 mg DAILY PO Last administered on 03/04/17 09: 05; Admin Dose 100 MG; Start 03/01/17 at 09:00 Ondansetron HCl (Zofran Inj) 4 mg Q6H PRN IV NAUSEA AND/OR VOMITING Last administered on 4/21/17at 15:33; Admin Dose 4 MG; Start 02/28/17 at 15:30 Acetaminophen (Tylenol Tab) 650 mg Q6H PRN PO PAIN LEVEL 1-3 OR FEVER; Start at 15:30 Oxycodone/ Acetaminophen (Percocet (5/ 325)) 1 tab Q6H PRN PO MODERATE PAIN LEVEL 4-6 Last administered on 03/03/17 07:15; Admin Dose 1 TAB; Start at 15:30 Oxycodone/ Acetaminophen (Percocet (5/ 325)) 2 tab Q6H PRN PO SEVERE PAIN LEVEL 7-10 Last administered on 03/04/17 11:20; Admin Dose 2 TAB; Start at 15:30 Morphine Sulfate (morphine) 2 mg Q4H PRN IV SEVERE PAIN LEVEL 7-10 Last administered on 03/01/17 22:37; Admin Dose 2 MG; Start 02/28/17 at 15:30 Docusate Sodium (Colace) 100 mg Q12H PRN PO CONSTIPATION Last administered on 05:53; Admin Dose 100 MG; Start 02/28/17 at 15:30 Bisacodyl (Dulcolax Supp) 10 mg DAILY PRN [place] CONSTIPATION; Start 02/28/17 at 15 :30 Pantoprazole (Protonix Tab) 40 mg DAILY@06 PO Last administered on 03/04/17 06 :06; Admin Dose 40 MG; Start 03/01/17 at 06:00 Heparin Sodium (Porcine) (Heparin (5000 Units/0.5 ml)) 5,000 unit Q12 SC Last administered on 03/04/17 09:07; Admin Dose 5,000 UNIT; Start 02/28/17 at 21:00 Diagnostic Test (Pha) (Accu-Chek) 1 ea 02 XX ; Start 03/01/17 at 02:00 Miscellaneous Information 1 ea NOTE XX ; Start 02/28/17 at 15:30 Glucose (Glutose) 15 gm Q15M PRN PO DECREASED GLUCOSE; Start 02/28/17 at 15:30 Glucose (Glutose) 22.5 gm Q15M PRN PO DECREASED GLUCOSE; Start 02/28/17 at 15: 30 Dextrose (D50w Syringe) 25 ml Q15M PRN IV DECREASED GLUCOSE; Start 02/28/17 at 15:30 Dextrose (D50w Syringe) 50 ml Q15M PRN IV DECREASED GLUCOSE; Start 02/28/17 at 15:30 Glucagon (Glucagen) 1 mg Q15M PRN IM DECREASED GLUCOSE; Start 02/28/17 at 15:30 Glucose (Glutose) 15 gm Q15M PRN BUCCAL DECREASED GLUCOSE; Start 02/28/17 at 15 :30 Metoprolol Tartrate (Lopressor) 100 mg BID PO Last administered on 03/04/17 09 :05; Admin Dose 100 MG; Start 02/28/17 at 21:00 Metoclopramide HCl (Reglan) 5 mg Q6H PRN IV NAUSEA Last administered on 21:06; Admin Dose 5 MG; Start 03/01/17 at 10:30 Gabapentin (Neurontin) 100 mg BID PO Last administered on 03/04/17 09:04; Admin Dose 100 MG; Start 03/01/17 at 10:30 Insulin Glargine (Lantus) 30 unit DAILY@20 SC Last administered on 03/03/17 21 :00; Admin Dose 30 UNIT; Start 03/02/17 at 20:00 Levofloxacin (Levaquin) 500 mg Q48H PO ; Start 03/04/17 at 13:00 Epoetin Indra (Epogen (Esrd)) 8,000 units MoWeFr@17 SC Last administered on 03/03 18:29; Admin Dose 8,000 UNITS; Start 03/03/17 at 17:00 JASPREET SMITH Mar 04, 2017 11:53
[2017-03-04] MEDS: LEVOFLOXACIN 500 MG TAB PO SCH (12:26)
--- NOTE | 2017-03-04 15:28 | PN ---
Date/Time of Note Date/Time of Note DATE: 03/04/17 TIME: 15:26 Assessment/Plan Lines/Catheters IV Catheter Type (from [facility]): Saline Lock [place] in Place (from [facility]): No Assessment/Plan Chief Complaint/Hosp Course 1. Left inner thigh chronic cellulitis and infection s/p saphenous vein ablation. -antibiotics, -warm compress, -elevation -encourage weight loss -debridement 2. Morbid obesity with BMI of 50. The patient is highly encouraged to optimize her nutrition and exercise to improve her overall health status. If she is not successful by that route, she may seek weight loss surgery. 3. Diabetes. Continue nutrition and medication control and encourage weight loss. 4. Hypertension. Continue nutrition and medication control, encourage weight loss. 5. Anemia without evidence of acute blood loss. Continue monitoring and workup per medical and GI. 6. Leukocytosis, probably secondary to #1 as above. 7. Rheumatoid arthritis. Continue medical optimization. 8. Electrolyte abnormalities with end-stage renal disease on hemodialysis. Continue judicious fluid management and dialysis. Thank you Problems: Subjective 24 Hr Interval Summary Min pain at site. No f/c. No n/v. No cp/sob. No cough. No hoffman/dizzy/visual or neuro changes. No dc. Exam/Review of Systems Vital Signs Vitals Vital Signs Date Time Temp Pulse Resp B/P Pulse Ox O2 Delivery O2 Flow Rate FiO2 03/04/17 07:37 100.2 70 18 117/55 90 03/03/17 20:00 Nasal Cannula 2.0 Intake and Output 03/03/17 03/03/17 03/04/17 15:00 23:00 07:00 Intake Total 970 ml 650 ml Output Total 3500 ml Balance -2530 ml 650 ml Exam Free Text/Dictation GENERAL: Morbid obesity, no acute distress. HEENT: Pupils equal and reactive without scleral icterus. Mucous membranes are moist. NECK: Obese, no crepitus, no JVD observable. PULMONARY: Normal respiratory effort. No wheezing. HEART: S1, S2 present. ABDOMEN: Soft, morbidly obese, nontender. No rebound. EXTREMITIES: With some edema. Left inner thigh with induration and eschar without fluctuance. VASCULAR: Capillary refill is 2 seconds. NEUROLOGIC: Alert, oriented, moves all 4 extremities grossly. Results Result Diagram: 03/04/1730 03/04/17 0930 ALFREDO SANCHEZ MD Mar 04, 2017 15:28
[2017-03-04] MEDS ORDERED: SILVER NITRATE SWAB TOP ONE (15:30)
[2017-03-04] MEDS ORDERED: LIDOCAINE 2%/EPI (MDV) 20ML INJ INJ ONE ×2 (15:30)
--- NOTE | 2017-03-04 16:56 | OPR ---
Date/Time of Note Date/Time of Note DATE: 03/04/17 TIME: 16:51 Operative Report Procedure Date: Mar 04, 2017 Preoperative Diagnosis Left inner thigh necrotic wound Hx of saphenous vein ablation Morbid obesity Postoperative Diagnosis Same Operation Performed 1. Excision of left inner thigh skin and subcutaneous. 2. Local [place] injection, [id number] Surgeon: ALFREDO SANCHEZ MD Anesthesia: other (local) Estimated Blood Loss: minimal Specimens Tissue Tubes/Drains Dressing Complications: None Pt Condition Post Procedure: stable Disposition: other (Own room) Indications Necrotic wound. Operative\Procedure Findings Patient supine in her own bed. Time out performed. Area prepped and draped. Local anesthetic injected at the site. Using scalpel, the necrotic tissue of skin and subcutaneous tissue were debrided to healthier edges. Wound was irrigated and hemostasis obtained with silver nitrate sticks. Dressing applied. ALFREDO SANCHEZ MD Mar 04, 2017 16:56
[2017-03-04 20:26] VITALS: BP 115/56; RESP 21
[2017-03-04] MEDS: INSULIN GLARGINE [LANtus] 3 ML PEN SC SCH (20:45)
[2017-03-05] VITALS (9 sets, daily range): BP systolic 106–133; BP diastolic 51–69; PULSE 64–69; RESP 19–20
[2017-03-05] MEDS: ACCU-CHEK XX SCH (02:00)
[2017-03-05] MEDS: PANTOPRAZOLE (EC) 40 MG TAB PO SCH (05:39)
[2017-03-05] MEDS: FUROSEMIDE 40 MG TAB PO SCH ×2 (05:40→17:35)
[2017-03-05] MEDS: OXYCODONE/ACETAMINOPHEN (5/325) TAB PO PRN ×2 (07:22→20:31)
[2017-03-05] MEDS: SEVELAMER 800 MG TAB PO SCH ×3 (08:34→17:25)
[2017-03-05] MEDS: LEVOTHYROXINE 100 MCG TAB PO SCH (08:35)
[2017-03-05] MEDS: ASPIRIN (EC) 81 MG TAB PO SCH (08:35)
[2017-03-05] MEDS: GABAPENTIN 100 MG CAP PO SCH ×2 (08:35→20:33)
[2017-03-05] MEDS: INSULIN ASPART [NOVOLOG] 3 ML PEN SC SCH ×7 (08:37→20:40)
[2017-03-05] MEDS: HEPARIN 5,000 UNIT/0.5 ML VIAL SC SCH ×2 (09:00→20:43)
[2017-03-05] MEDS: METOPROLOL 100 MG TAB PO SCH ×2 (09:00→20:34)
[2017-03-05] MEDS: LOSARTAN 50 MG TAB PO SCH (09:00)
--- NOTE | 2017-03-05 12:48 | PN ---
Date/Time of Note Date/Time of Note DATE: 03/05/17 TIME: 12:37 Assessment/Plan VTE Prophylaxis VTE Prophylaxis Intervention: heparin Lines/Catheters IV Catheter Type (from Nrs): Saline Lock Urinary Cath still in place: No Assessment/Plan Assessment/Plan 61-year-old female: 1. Left inner thigh chronic subcutaneous infiltration post varicose vein laser procedure 6 months ago, CT with findings of extensive, subcutaneous infiltration of the partially visualized lower leg with calcifications, likely chronic in nature. Calcified subcutaneous varicosities are also present Mild leukocytosis, on IV vancomycin and po Levaquin Blood cx negative. Pain control with Percocet prn. Morphine IV only as back up. Continue Neurontin S/p I&D left inner thigh eschar POD#1, cx pending 2. End-stage renal disease on hemodialysis, on Friday/Friday/Friday schedule. Dr. Mccollum following. 3. Diabetes mellitus, BG better controlled, continue Lantus to 30 units subcutaneously QHS along with NovoLog up to 10 units subcutaneously q. AC and moderate sliding scale insulin. BG stable. Hemoglobin A1c 8.2 Continue Gabapentin for neuropathic pain 4. Hypertension: continue home meds. BP stable. 5. Constipation: Colace and Miralax scheduled, and Dulcolax, MOM prn 6. Super morbid obesity Prophylaxis: Protonix for GI prophylaxis, heparin subcu for DVT prophylaxis. Disposition: Gen Surgery following, IV antibiotics, hemodialysis M/W/F. D/c plan Friday post HD Subjective 24 Hr Interval Summary Free Text/Dictation S/p I&D left inner thigh eschar, POD#1 Patient doing well, pain controlled and d/c plan for Friday after HD if wound stable Complaints of constipation Exam/Review of Systems Vital Signs Vitals Vital Signs Date Time Temp Pulse Resp B/P Pulse Ox O2 Delivery O2 Flow Rate FiO2 03/05/17 07:45 98.8 76 20 106/52 96 03/04/17 20:00 Nasal Cannula 2.0 Intake and Output 03/04/17 03/04/17 03/05/17 15:00 23:00 07:00 Intake Total 600 ml 480 ml Balance 600 ml 480 ml Exam Constitutional: alert, obese (morbid ), oriented Respiratory: clear to auscultation, normal air movement Cardiovascular: nl pulses, regular rate and rhythm Gastrointestinal: non-tender, soft Musculoskeletal: nl extremities to inspection, other (left inner thigh with dressing in place, better ) Neurological: RESTORATION ECOLOGIST II-XII intact, nl mental status, nl speech, nl strength (at baseline ) Results Result Diagram: 03/04/17 0930 03/04/17 0930 Results 24 hrs Laboratory Tests Test 03/04/17 17:07 03/04/17 20:41 03/05/17 05:30 03/05/17 08:00 Bedside Glucose 148 142 232 H Random Vancomycin Level 16.9 Test 03/05/17 12:03 Bedside Glucose 153 Medications Medications Current Medications Aspirin (Halfprin) 81 mg DAILY PO Last administered on 03/05/17 08:35; Admin Dose 81 MG; Start 03/01/17 at 09:00 Hydralazine HCl (Apresoline) 50 mg BID PO Last administered on 03/04/17 20:39 ; Admin Dose 50 MG; Start 02/28/17 at 21:00 Losartan Potassium (Cozaar) 100 mg DAILY PO Last administered on 03/04/17 09: 05; Admin Dose 100 MG; Start 03/01/17 at 09:00 Ondansetron HCl (Zofran Inj) 4 mg Q6H PRN IV NAUSEA AND/OR VOMITING Last administered on 02/28/17 15:33; Admin Dose 4 MG; Start 02/28/17 at 15:30 Acetaminophen (Tylenol Tab) 650 mg Q6H PRN PO PAIN LEVEL 1-3 OR FEVER; Start at 15:30 Oxycodone/ Acetaminophen (Percocet (5/ 325)) 1 tab Q6H PRN PO MODERATE PAIN LEVEL 4-6 Last administered on 03/05/17 07:22; Admin Dose 1 TAB; Start at 15:30 Oxycodone/ Acetaminophen (Percocet (5/ 325)) 2 tab Q6H PRN PO SEVERE PAIN LEVEL 7-10 Last administered on 03/04/17 11:20; Admin Dose 2 TAB; Start at 15:30 Morphine Sulfate (morphine) 2 mg Q4H PRN IV SEVERE PAIN LEVEL 7-10 Last administered on 03/01/17 22:37; Admin Dose 2 MG; Start 02/28/17 at 15:30 Docusate Sodium (Colace) 100 mg Q12H PRN PO CONSTIPATION Last administered on 05:53; Admin Dose 100 MG; Start 02/28/17 at 15:30 Bisacodyl (Dulcolax Supp) 10 mg DAILY PRN [place] CONSTIPATION Last administered on 03/05/17 05:39; Admin Dose 10 MG; Start 02/28/17 at 15:30 Pantoprazole (Protonix Tab) 40 mg DAILY@06 PO Last administered on 03/05/17 05 :39; Admin Dose 40 MG; Start 03/01/17 at 06:00 Heparin Sodium (Porcine) (Heparin (5000 Units/0.5 ml)) 5,000 unit Q12 SC Last administered on 03/04/17 20:44; Admin Dose 5,000 UNIT; Start 02/28/17 at 21:00 Diagnostic Test (Pha) (Accu-Chek) 1 ea 02 XX ; Start 03/01/17 at 02:00 Miscellaneous Information 1 ea NOTE XX ; Start 02/28/17 at 15:30 Glucose (Glutose) 15 gm Q15M PRN PO DECREASED GLUCOSE; Start 02/28/17 at 15:30 Glucose (Glutose) 22.5 gm Q15M PRN PO DECREASED GLUCOSE; Start 02/28/17 at 15: 30 Dextrose (D50w Syringe) 25 ml Q15M PRN IV DECREASED GLUCOSE; Start 02/28/17 at 15:30 Dextrose (D50w Syringe) 50 ml Q15M PRN IV DECREASED GLUCOSE; Start 02/28/17 at 15:30 Glucagon (Glucagen) 1 mg Q15M PRN IM DECREASED GLUCOSE; Start 02/28/17 at 15:30 Glucose (Glutose) 15 gm Q15M PRN BUCCAL DECREASED GLUCOSE; Start 02/28/17 at 15 :30 Metoprolol Tartrate (Lopressor) 100 mg BID PO Last administered on 03/04/17 20 :38; Admin Dose 100 MG; Start 02/28/17 at 21:00 Metoclopramide HCl (Reglan) 5 mg Q6H PRN IV NAUSEA Last administered on 21:06; Admin Dose 5 MG; Start 03/01/17 at 10:30 Gabapentin (Neurontin) 100 mg BID PO Last administered on 03/05/17 08:35; Admin Dose 100 MG; Start 03/01/17 at 10:30 Insulin Glargine (Lantus) 30 unit DAILY@20 SC Last administered on 03/04/17 20 :45; Admin Dose 30 UNIT; Start 03/02/17 at 20:00 Levofloxacin (Levaquin) 500 mg Q48H PO Last administered on 03/04/17 12:26; Admin Dose 500 MG; Start 03/04/17 at 13:00 Epoetin Indra 8000 units 8,000 units MoWeFr@17 SC Last administered on 18:29; Admin Dose 8,000 UNITS; Start 03/03/17 at 17:00 Vancomycin HCl (Vancocin) 250 ml @ 125 mls/hr Q96H IVPB ; Start 03/05/17 at 22: 00 Procedures Procedures Operative Report Procedure Date: Mar 04, 2017 Preoperative Diagnosis Left inner thigh necrotic wound Hx of saphenous vein ablation Morbid obesity Postoperative Diagnosis Same Operation Performed 1. Excision of left inner thigh skin and subcutaneous. 2. [place], [id number] Surgeon: ALFREDO SANCHEZ MD Anesthesia: other (local) Estimated Blood Loss: minimal Specimens Tissue Tubes/Drains Dressing Complications: None Pt Condition Post Procedure: stable Disposition: other (Own room) Indications Necrotic wound. Operative\Procedure Findings Patient supine in her own bed. Time out performed. Area prepped and draped. Local anesthetic injected at the site. Using scalpel, the necrotic tissue of skin and subcutaneous tissue were debrided to healthier edges. Wound was irrigated and hemostasis obtained with silver nitrate sticks. Dressing applied. JASPREET SMITH Mar 05, 2017 12:48
[2017-03-05 14:43] LABS: ADD SCAN DIFF NO
[2017-03-05 14:45] LABS: BASOPHIL # 0.1 10^3/ul (0.0-0.1); BASOPHILS % 0.3 % (0.0-2.0); EOSINOPHILS # 0.2 10^3/ul (0.0-0.5); EOSINOPHILS % 1.5 % (0.0-7.0); HEMOGLOBIN 9.9 g/dl (12.0-16.0); LYMPHOCYTES # 0.7 10^3/ul (0.8-2.9); MEAN CORPUSCULAR HEMOGLOBIN 31.8 pg (29.0-33.0); MEAN CORPUSCULAR HGB CONC 31.9 g/dl (32.0-37.0); MEAN CORPUSCULAR VOLUME 99.7 fl (82.0-101.0); MEAN PLATELET VOLUME 9.6 fl (7.4-10.4); MONOCYTE # 1.3 10^3/ul (0.3-0.9); MONOCYTES % 9.1 % (0.0-11.0); NEUTROPHILS % 83.1 % (39.0-77.0); PLATELET COUNT 323 10^3/UL (140-415); RED BLOOD COUNT 3.11 10^6/ul (4.20-5.40); RED CELL DISTRIBUTION WIDTH 14.6 % (11.5-14.5); WHITE BLOOD COUNT 14.5 10^3/ul (4.8-10.8)
[2017-03-05 15:02] LABS: CALCIUM 9.5 mg/dl (8.4-10.2); CREATININE 4.19 mg/dl (0.44-1.00); MAGNESIUM 2.3 mg/dl (1.7-2.5); PHOSPHORUS 5.7 mg/dl (2.5-4.9); POTASSIUM 3.8 mmol/L (3.5-5.1)
[2017-03-05] MEDS: DOCUSATE SODIUM 100 MG CAP PO SCH (15:55)
[2017-03-05] MEDS: POLYETHYLENE GLYCOL 17 GM PACKET NGT SCH ×2 (15:55→20:34)
[2017-03-05] MEDS: EPOETIN 4000 UNITS/1 ML INJ (ESRD) SC SCH (17:24)
--- NOTE | 2017-03-05 19:24 | CONS ---
Date/Time of Note Date/Time of Note DATE: 03/05/17 TIME: 19:23 Assessment/Plan Assessment/Plan Chief Complaint/Hosp Course - ESRD - ANEMIA - HTN - DM - OBESITY - CELLULITIS PLAN: She is on dialysis MWF, plan for HD today Monitor labs EPOGEN for Anemia to maintain Hgb >~ 10 THANK YOU Bridger YUSUF Problems: Consultation Date/Type/Reason Admit Date/Time Feb 28, 2017 at 12:25 Initial Consult Date 02/28/17 Type of Consultation: NEPHROLOGY Reason for Consultation - ESRD on Hemodialysis 24 HR Interval Summary Constitutional: improved, no complaints Exam/Review of Systems Vital Signs Vitals Vital Signs Date Time Temp Pulse Resp B/P Pulse Ox O2 Delivery O2 Flow Rate FiO2 03/05/17 15:11 Nasal Cannula 2.0 03/05/17 13:35 66 03/05/17 13:35 20 03/05/17 07:45 98.8 106/52 96 Intake and Output 03/04/17 03/04/17 03/05/17 15:00 23:00 07:00 Intake Total 600 ml 480 ml Balance 600 ml 480 ml Exam Constitutional: alert Respiratory: crackles/rales Cardiovascular: edema, systolic murmur Gastrointestinal: soft Results Result Diagram: 03/05/17 1435 03/05/17 1435 Results 24 hrs Laboratory Tests Test 03/04/17 20:41 03/05/17 05:30 03/05/17 08:00 03/05/17 12:03 Bedside Glucose 142 232 H 153 Random Vancomycin Level 16.9 Test 03/05/17 14:35 03/05/17 17:20 White Blood Count 14.5 H Red Blood Count 3.11 L Hemoglobin 9.9 L Hematocrit 31.0 L Mean Corpuscular Volume 99.7 Mean Corpuscular Hemoglobin 31.8 Mean Corpuscular Hemoglobin Concent 31.9 L Red Cell Distribution Width 14.6 H Platelet Count 323 Mean Platelet Volume 9.6 Neutrophils % 83.1 H Lymphocytes % 5.0 L Monocytes % 9.1 Eosinophils % 1.5 Basophils % 0.3 Nucleated Red Blood Cells % 0.0 Neutrophils # 12.0 H Lymphocytes # 0.7 L Monocytes # 1.3 H Eosinophils # 0.2 Basophils # 0.1 Nucleated Red Blood Cells # 0.0 Sodium Level 137 Potassium Level 3.8 Chloride Level 99 Carbon Dioxide Level 26 Anion Gap 16 Blood Urea Nitrogen 29 #H Creatinine 4.19 #H Glucose Level 175 Calcium Level 9.5 Phosphorus Level 5.7 H Magnesium Level 2.3 Bedside Glucose 206 Medications Medications Current Medications Aspirin (Halfprin) 81 mg DAILY PO Last administered on 03/05/17 08:35; Admin Dose 81 MG; Start 03/01/17 at 09:00 Hydralazine HCl (Apresoline) 50 mg BID PO Last administered on 03/04/17 20:39 ; Admin Dose 50 MG; Start 02/28/17 at 21:00 Losartan Potassium (Cozaar) 100 mg DAILY PO Last administered on 03/04/17 09: 05; Admin Dose 100 MG; Start 03/01/17 at 09:00 Ondansetron HCl (Zofran Inj) 4 mg Q6H PRN IV NAUSEA AND/OR VOMITING Last administered on 02/28/17 15:33; Admin Dose 4 MG; Start 02/28/17 at 15:30 Acetaminophen (Tylenol Tab) 650 mg Q6H PRN PO PAIN LEVEL 1-3 OR FEVER; Start at 15:30 Oxycodone/ Acetaminophen (Percocet (5/ 325)) 1 tab Q6H PRN PO MODERATE PAIN LEVEL 4-6 Last administered on 03/05/17 07:22; Admin Dose 1 TAB; Start at 15:30 Oxycodone/ Acetaminophen (Percocet (5/ 325)) 2 tab Q6H PRN PO SEVERE PAIN LEVEL 7-10 Last administered on 03/04/17 11:20; Admin Dose 2 TAB; Start at 15:30 Morphine Sulfate (morphine) 2 mg Q4H PRN IV SEVERE PAIN LEVEL 7-10 Last administered on 03/01/17 22:37; Admin Dose 2 MG; Start 02/28/17 at 15:30 Bisacodyl (Dulcolax Supp) 10 mg DAILY PRN NE CONSTIPATION Last administered on 03/05/17 05:39; Admin Dose 10 MG; Start 02/28/17 at 15:30 Pantoprazole (Protonix Tab) 40 mg DAILY@06 PO Last administered on 03/05/17 05 :39; Admin Dose 40 MG; Start 03/01/17 at 06:00 Heparin Sodium (Porcine) (Heparin (5000 Units/0.5 ml)) 5,000 unit Q12 SC Last administered on 03/04/17 20:44; Admin Dose 5,000 UNIT; Start 02/28/17 at 21:00 Diagnostic Test (Pha) (Accu-Chek) 1 ea 02 XX ; Start 03/01/17 at 02:00 Miscellaneous Information 1 ea NOTE XX ; Start 02/28/17 at 15:30 Glucose (Glutose) 15 gm Q15M PRN PO DECREASED GLUCOSE; Start 02/28/17 at 15:30 Glucose (Glutose) 22.5 gm Q15M PRN PO DECREASED GLUCOSE; Start 02/28/17 at 15: 30 Dextrose (D50w Syringe) 25 ml Q15M PRN IV DECREASED GLUCOSE; Start 02/28/17 at 15:30 Dextrose (D50w Syringe) 50 ml Q15M PRN IV DECREASED GLUCOSE; Start 02/28/17 at 15:30 Glucagon (Glucagen) 1 mg Q15M PRN IM DECREASED GLUCOSE; Start 02/28/17 at 15:30 Glucose (Glutose) 15 gm Q15M PRN BUCCAL DECREASED GLUCOSE; Start 02/28/17 at 15 :30 Metoprolol Tartrate (Lopressor) 100 mg BID PO Last administered on 03/04/17 20 :38; Admin Dose 100 MG; Start 02/28/17 at 21:00 Metoclopramide HCl (Reglan) 5 mg Q6H PRN IV NAUSEA Last administered on 21:06; Admin Dose 5 MG; Start 03/01/17 at 10:30 Gabapentin (Neurontin) 100 mg BID PO Last administered on 03/05/17 08:35; Admin Dose 100 MG; Start 03/01/17 at 10:30 Insulin Glargine (Lantus) 30 unit DAILY@20 SC Last administered on 03/04/17 20 :45; Admin Dose 30 UNIT; Start 03/02/17 at 20:00 Levofloxacin (Levaquin) 500 mg Q48H PO Last administered on 03/04/17 12:26; Admin Dose 500 MG; Start 03/04/17 at 13:00 Epoetin Indra 8000 units 8,000 units MoWeFr@17 SC Last administered on 17:24; Admin Dose 8,000 UNITS; Start 03/03/17 at 17:00 Vancomycin HCl (Vancocin) 250 ml @ 125 mls/hr Q96H IVPB ; Start 03/05/17 at 22: 00 Polyethylene Glycol (Miralax) 17 gm BID NGT Last administered on 03/05/17 15: 55; Admin Dose 17 GM; Start 03/05/17 at 13:00 Docusate Sodium (Colace) 100 mg Q12H PO Last administered on 03/05/17 15:55; Admin Dose 100 MG; Start 03/05/17 at 15:30 ANIBAL ALMANZAR MD Mar 05, 2017 19:24
[2017-03-05] MEDS: INSULIN GLARGINE [LANtus] 3 ML PEN SC SCH (20:42)
[2017-03-05] MEDS ORDERED: VANCOMYCIN 1 GM in NS 250 ML IVPB SCH (22:00)
[2017-03-06] MEDS: ACCU-CHEK XX SCH (02:00)
[2017-03-06] MEDS: DOCUSATE SODIUM 100 MG CAP PO SCH ×2 (03:19→12:04)
[2017-03-06] MEDS: OXYCODONE/ACETAMINOPHEN (5/325) TAB PO PRN ×3 (04:20→16:07)
[2017-03-06] MEDS: FUROSEMIDE 40 MG TAB PO SCH ×2 (06:12→17:41)
[2017-03-06] MEDS: PANTOPRAZOLE (EC) 40 MG TAB PO SCH (06:12)
[2017-03-06] MEDS: LEVOTHYROXINE 100 MCG TAB PO SCH (06:17)
[2017-03-06] MEDS: SEVELAMER 800 MG TAB PO SCH ×3 (08:15→17:37)
[2017-03-06] MEDS: INSULIN ASPART [NOVOLOG] 3 ML PEN SC SCH ×7 (08:16→21:00)
[2017-03-06] MEDS: HEPARIN 5,000 UNIT/0.5 ML VIAL SC SCH ×2 (08:18→21:02)
[2017-03-06] MEDS: POLYETHYLENE GLYCOL 17 GM PACKET NGT SCH ×2 (08:18→20:52)
[2017-03-06] MEDS: ASPIRIN (EC) 81 MG TAB PO SCH (08:18)
[2017-03-06] MEDS: GABAPENTIN 100 MG CAP PO SCH ×2 (08:18→20:52)
[2017-03-06] MEDS: LOSARTAN 50 MG TAB PO SCH (08:20)
[2017-03-06] MEDS: METOPROLOL 100 MG TAB PO SCH ×2 (08:21→21:00)
--- NOTE | 2017-03-06 08:23 | PN ---
Date/Time of Note Date/Time of Note DATE: 03/05/17 TIME: 13:21 Assessment/Plan Lines/Catheters IV Catheter Type (from Nrs): Saline Lock [place] in Place (from Nrs): No Assessment/Plan Chief Complaint/Hosp Course 1. Left inner thigh chronic cellulitis and infection s/p saphenous vein ablation s/p exc faisal 03/04 -antibiotics -warm compress -elevation -encourage weight loss 2. Morbid obesity with BMI of 50. The patient is highly encouraged to optimize her nutrition and exercise to improve her overall health status. If she is not successful by that route, she may seek weight loss surgery. 3. Diabetes. Continue nutrition and medication control and encourage weight loss. 4. Hypertension. Continue nutrition and medication control, encourage weight loss. 5. Anemia without evidence of acute blood loss. Continue monitoring and workup per medical and GI. 6. Leukocytosis, probably secondary to #1 as above. 7. Rheumatoid arthritis. Continue medical optimization. 8. Electrolyte abnormalities with end-stage renal disease on hemodialysis. Continue judicious fluid management and dialysis. Thank you Late entry 03/05 Problems: Subjective 24 Hr Interval Summary Min pain at site. No f/c. No n/v. No cp/sob. No cough. No hoffman/dizzy/visual or neuro changes. No dc. Exam/Review of Systems Vital Signs Vitals Vital Signs Date Time Temp Pulse Resp B/P Pulse Ox O2 Delivery O2 Flow Rate FiO2 03/05/17 20:02 97.8 73 19 133/64 98 03/05/17 15:11 Nasal Cannula 2.0 Intake and Output 03/05/17 03/05/17 03/06/17 15:00 23:00 07:00 Intake Total 500 ml 250 ml Output Total 3500 ml Balance -3000 ml 250 ml Exam Free Text/Dictation GENERAL: Morbid obesity, no acute distress. HEENT: Pupils equal and reactive without scleral icterus. Mucous membranes are moist. NECK: Obese, no crepitus, no JVD observable. PULMONARY: Normal respiratory effort. No wheezing. HEART: S1, S2 present. ABDOMEN: Soft, morbidly obese, nontender. No rebound. EXTREMITIES: With some edema. Left inner thigh with induration and eschar without fluctuance. VASCULAR: Capillary refill is 2 seconds. NEUROLOGIC: Alert, oriented, moves all 4 extremities grossly. Results Result Diagram: 03/05/17 1435 03/05/17 1435 ALFREDO SANCHEZ MD Mar 06, 2017 08:23
--- NOTE | 2017-03-06 08:25 | PN ---
Date/Time of Note Date/Time of Note DATE: 03/06/17 TIME: 08:24 Assessment/Plan Lines/Catheters IV Catheter Type (from [facility]): Saline Lock [place] in Place (from [facility]): No Assessment/Plan Chief Complaint/Hosp Course 1. Left inner thigh chronic cellulitis and infection s/p saphenous vein ablation s/p exc faisal 03/04 -antibiotics -warm compress -elevation -encourage weight loss 2. Morbid obesity with BMI of 50. The patient is highly encouraged to optimize her nutrition and exercise to improve her overall health status. If she is not successful by that route, she may seek weight loss surgery. 3. Diabetes. Continue nutrition and medication control and encourage weight loss. 4. Hypertension. Continue nutrition and medication control, encourage weight loss. 5. Anemia without evidence of acute blood loss. Continue monitoring and workup per medical and GI. 6. Leukocytosis, probably secondary to #1 as above. 7. Rheumatoid arthritis. Continue medical optimization. 8. Electrolyte abnormalities with end-stage renal disease on hemodialysis. Continue judicious fluid management and dialysis. Thank you Problems: Subjective 24 Hr Interval Summary s/p Exc faisal left thigh 03/04. Min pain at site. No f/c. No n/v. No cp/sob. No cough. No hoffman/dizzy/visual or neuro changes. No dc. Exam/Review of Systems Vital Signs Vitals Vital Signs Date Time Temp Pulse Resp B/P Pulse Ox O2 Delivery O2 Flow Rate FiO2 03/05/17 20:02 97.8 73 19 133/64 98 03/05/17 15:11 Nasal Cannula 2.0 Intake and Output 03/05/17 03/05/17 03/06/17 15:00 23:00 07:00 Intake Total 500 ml 250 ml Output Total 3500 ml Balance -3000 ml 250 ml Exam Free Text/Dictation GENERAL: Morbid obesity, no acute distress. HEENT: Pupils equal and reactive without scleral icterus. Mucous membranes are moist. NECK: Obese, no crepitus, no JVD observable. PULMONARY: Normal respiratory effort. No wheezing. HEART: S1, S2 present. ABDOMEN: Soft, morbidly obese, nontender. No rebound. EXTREMITIES: With some edema. Left inner thigh with induration and wound without fluctuance. VASCULAR: Capillary refill is 2 seconds. NEUROLOGIC: Alert, oriented, moves all 4 extremities grossly. Results Result Diagram: 03/05/17 1435 03/05/17 1435 ALFREDO SANCHEZ MD Mar 06, 2017 08:25
[2017-03-06 09:11] VITALS: BP 122/59; RESP 20
[2017-03-06] MEDS: LEVOFLOXACIN 500 MG TAB PO SCH (12:04)
--- NOTE | 2017-03-06 12:07 | PN ---
Date/Time of Note Date/Time of Note DATE: 03/06/17 TIME: 12:02 Assessment/Plan VTE Prophylaxis VTE Prophylaxis Intervention: heparin Lines/Catheters IV Catheter Type (from Nrsg): Saline Lock Urinary Cath still in place: No Assessment/Plan Assessment/Plan 61-year-old female: 1. Left inner thigh chronic subcutaneous infiltration post varicose vein laser procedure 6 months ago, CT with findings of extensive, subcutaneous infiltration of the partially visualized lower leg with calcifications, likely chronic in nature. Calcified subcutaneous varicosities are also present Mild leukocytosis, cont IV vancomycin and po Levaquin Pain control with Percocet prn. Morphine IV only as back up. Continue Neurontin S/p I&D left inner thigh eschar POD#2, stable on current abx 2. End-stage renal disease on hemodialysis, on Friday/Friday/Friday schedule. Dr. Mccollum following. Plan for discharge home tomorrow after HD. 3. Diabetes mellitus, BG better controlled, continue Lantus to 30 units subcutaneously QHS along with NovoLog up to 10 units subcutaneously q. AC and moderate sliding scale insulin. BG stable. Hemoglobin A1c 8.2 Continue Gabapentin for neuropathic pain 4. Hypertension: continue home meds. BP stable. 5. Constipation: Colace and Miralax scheduled, and Dulcolax, MOM prn 6. Super morbid obesity Prophylaxis: Protonix for GI prophylaxis, heparin subcu for DVT prophylaxis. Disposition: Gen Surgery following, IV antibiotics, hemodialysis M/W/F. D/c plan tomorrow post HD Subjective 24 Hr Interval Summary Free Text/Dictation Patient doing well and remains stable Complaining about same pain but relieved with Percocet and well tolerated D/c plan tomorrow after HD if Ok with Surgery Exam/Review of Systems Vital Signs Vitals Vital Signs Date Time Temp Pulse Resp B/P Pulse Ox O2 Delivery O2 Flow Rate FiO2 03/06/17 09:11 98.8 76 20 122/59 96 03/06/17 08:30 Nasal Cannula 03/05/17 15:11 2.0 Intake and Output 03/05/17 03/05/17 03/06/17 15:00 23:00 07:00 Intake Total 500 ml 250 ml Output Total 3500 ml Balance -3000 ml 250 ml Exam Constitutional: alert, obese (morbid ), oriented, well developed Respiratory: clear to auscultation, normal air movement Cardiovascular: nl pulses, regular rate and rhythm Musculoskeletal: other (left inner thigh with small dressing c/d/i ) Extremities: normal pulses Neurological: CLINICAL RESEARCH ANALYST II-XII intact, nl mental status, nl speech, nl strength (at baseline ) Results Result Diagram: 03/05/17 1435 03/05/17 1435 Results 24 hrs Laboratory Tests Test 03/05/17 12:03 03/05/17 14:35 03/05/17 17:20 03/05/17 20:38 Bedside Glucose 153 206 139 White Blood Count 14.5 H Red Blood Count 3.11 L Hemoglobin 9.9 L Hematocrit 31.0 L Mean Corpuscular Volume 99.7 Mean Corpuscular Hemoglobin 31.8 Mean Corpuscular Hemoglobin Concent 31.9 L Red Cell Distribution Width 14.6 H Platelet Count 323 Mean Platelet Volume 9.6 Neutrophils % 83.1 H Lymphocytes % 5.0 L Monocytes % 9.1 Eosinophils % 1.5 Basophils % 0.3 Nucleated Red Blood Cells % 0.0 Neutrophils # 12.0 H Lymphocytes # 0.7 L Monocytes # 1.3 H Eosinophils # 0.2 Basophils # 0.1 Nucleated Red Blood Cells # 0.0 Sodium Level 137 Potassium Level 3.8 Chloride Level 99 Carbon Dioxide Level 26 Anion Gap 16 Blood Urea Nitrogen 29 #H Creatinine 4.19 #H Glucose Level 175 Calcium Level 9.5 Phosphorus Level 5.7 H Magnesium Level 2.3 Test 03/06/17 08:06 Bedside Glucose 178 Medications Medications Current Medications Aspirin (Halfprin) 81 mg DAILY PO Last administered on 03/06/17 08:18; Admin Dose 81 MG; Start 03/01/17 at 09:00 Hydralazine HCl (Apresoline) 50 mg BID PO Last administered on 03/06/17 08:20 ; Admin Dose 50 MG; Start 02/28/17 at 21:00 Losartan Potassium (Cozaar) 100 mg DAILY PO Last administered on 03/06/17 08: 20; Admin Dose 100 MG; Start 03/01/17 at 09:00 Ondansetron HCl (Zofran Inj) 4 mg Q6H PRN IV NAUSEA AND/OR VOMITING Last administered on 02/28/17 15:33; Admin Dose 4 MG; Start 02/28/17 at 15:30 Acetaminophen (Tylenol Tab) 650 mg Q6H PRN PO PAIN LEVEL 1-3 OR FEVER; Start at 15:30 Oxycodone/ Acetaminophen (Percocet (5/ 325)) 1 tab Q6H PRN PO MODERATE PAIN LEVEL 4-6 Last administered on 03/06/17 04:20; Admin Dose 1 TAB; Start at 15:30 Oxycodone/ Acetaminophen (Percocet (5/ 325)) 2 tab Q6H PRN PO SEVERE PAIN LEVEL 7-10 Last administered on 03/06/17 10:18; Admin Dose 2 TAB; Start at 15:30 Morphine Sulfate (morphine) 2 mg Q4H PRN IV SEVERE PAIN LEVEL 7-10 Last administered on 03/01/17 22:37; Admin Dose 2 MG; Start 02/28/17 at 15:30 Bisacodyl (Dulcolax Supp) 10 mg DAILY PRN [place] CONSTIPATION Last administered on 03/05/17 05:39; Admin Dose 10 MG; Start 02/28/17 at 15:30 Pantoprazole (Protonix Tab) 40 mg DAILY@06 PO Last administered on 03/06/17 06 :12; Admin Dose 40 MG; Start 03/01/17 at 06:00 Heparin Sodium (Porcine) (Heparin (5000 Units/0.5 ml)) 5,000 unit Q12 SC Last administered on 03/06/17 08:18; Admin Dose 5,000 UNIT; Start 02/28/17 at 21:00 Diagnostic Test (Pha) (Accu-Chek) 1 ea 02 XX ; Start 03/01/17 at 02:00 Miscellaneous Information 1 ea NOTE XX ; Start 02/28/17 at 15:30 Glucose (Glutose) 15 gm Q15M PRN PO DECREASED GLUCOSE; Start 02/28/17 at 15:30 Glucose (Glutose) 22.5 gm Q15M PRN PO DECREASED GLUCOSE; Start 02/28/17 at 15: 30 Dextrose (D50w Syringe) 25 ml Q15M PRN IV DECREASED GLUCOSE; Start 02/28/17 at 15:30 Dextrose (D50w Syringe) 50 ml Q15M PRN IV DECREASED GLUCOSE; Start 02/28/17 at 15:30 Glucagon (Glucagen) 1 mg Q15M PRN IM DECREASED GLUCOSE; Start 02/28/17 at 15:30 Glucose (Glutose) 15 gm Q15M PRN BUCCAL DECREASED GLUCOSE; Start 02/28/17 at 15 :30 Metoprolol Tartrate (Lopressor) 100 mg BID PO Last administered on 03/06/17 08 :21; Admin Dose 100 MG; Start 02/28/17 at 21:00 Metoclopramide HCl (Reglan) 5 mg Q6H PRN IV NAUSEA Last administered on 21:06; Admin Dose 5 MG; Start 03/01/17 at 10:30 Gabapentin (Neurontin) 100 mg BID PO Last administered on 03/06/17 08:18; Admin Dose 100 MG; Start 03/01/17 at 10:30 Insulin Glargine (Lantus) 30 unit DAILY@20 SC Last administered on 03/05/17 20 :42; Admin Dose 30 UNIT; Start 03/02/17 at 20:00 Levofloxacin (Levaquin) 500 mg Q48H PO Last administered on 03/04/17 12:26; Admin Dose 500 MG; Start 03/04/17 at 13:00 Epoetin Indra 8000 units 8,000 units MoWeFr@17 SC Last administered on 17:24; Admin Dose 8,000 UNITS; Start 03/03/17 at 17:00 Vancomycin HCl (Vancocin) 250 ml @ 125 mls/hr Q96H IVPB Last administered on 22:08; Admin Dose 125 MLS/HR; Start 03/05/17 at 22:00 Polyethylene Glycol (Miralax) 17 gm BID NGT Last administered on 03/06/17 08: 18; Admin Dose 17 GM; Start 03/05/17 at 13:00 Docusate Sodium (Colace) 100 mg Q12H PO Last administered on 03/06/17 03:19; Admin Dose 100 MG; Start 03/05/17 at 15:30 JASPREET SMITH Mar 06, 2017 12:07
[2017-03-06] MEDS: FLUTICASONE 0.05% 16 GM NAS SPRAY NASAL SCH ×2 (15:14→20:51)
--- NOTE | 2017-03-06 19:00 | CONS ---
Date/Time of Note Date/Time of Note DATE: 03/06/17 TIME: 18:59 Assessment/Plan Assessment/Plan Chief Complaint/Hosp Course - ESRD - ANEMIA - HTN - DM - OBESITY - CELLULITIS PLAN: She is on dialysis MWF, plan for HD tomorrow Monitor labs EPOGEN for Anemia to maintain Hgb >~ 10 Problems: Consultation Date/Type/Reason Admit Date/Time Feb 28, 2017 at 12:25 Initial Consult Date 02/28/17 Type of Consultation: NEPHROLOGY Reason for Consultation - ESRD 24 HR Interval Summary Constitutional: improved Exam/Review of Systems Vital Signs Vitals Vital Signs Date Time Temp Pulse Resp B/P Pulse Ox O2 Delivery O2 Flow Rate FiO2 03/06/17 09:11 98.8 76 20 122/59 96 03/06/17 08:30 Nasal Cannula 03/05/17 15:11 2.0 Intake and Output 03/05/17 03/05/17 03/06/17 15:00 23:00 07:00 Intake Total 500 ml 250 ml Output Total 3500 ml Balance -3000 ml 250 ml Exam Constitutional: alert, oriented Respiratory: crackles/rales Cardiovascular: edema, regular rate and rhythm, systolic murmur Gastrointestinal: soft Results Result Diagram: 03/05/17 1435 03/05/17 1435 Results 24 hrs Laboratory Tests Test 03/05/17 20:38 03/06/17 08:06 03/06/17 12:01 03/06/17 17:22 Bedside Glucose 139 178 137 107 Medications Medications Current Medications Aspirin (Halfprin) 81 mg DAILY PO Last administered on 03/06/17 08:18; Admin Dose 81 MG; Start 03/01/17 at 09:00 Hydralazine HCl (Apresoline) 50 mg BID PO Last administered on 03/06/17 08:20 ; Admin Dose 50 MG; Start 02/28/17 at 21:00 Losartan Potassium (Cozaar) 100 mg DAILY PO Last administered on 03/06/17 08: 20; Admin Dose 100 MG; Start 03/01/17 at 09:00 Ondansetron HCl (Zofran Inj) 4 mg Q6H PRN IV NAUSEA AND/OR VOMITING Last administered on 02/28/17 15:33; Admin Dose 4 MG; Start 02/28/17 at 15:30 Acetaminophen (Tylenol Tab) 650 mg Q6H PRN PO PAIN LEVEL 1-3 OR FEVER; Start at 15:30 Oxycodone/ Acetaminophen (Percocet (5/ 325)) 1 tab Q6H PRN PO MODERATE PAIN LEVEL 4-6 Last administered on 03/06/17 16:07; Admin Dose 1 TAB; Start at 15:30 Oxycodone/ Acetaminophen (Percocet (5/ 325)) 2 tab Q6H PRN PO SEVERE PAIN LEVEL 7-10 Last administered on 03/06/17 10:18; Admin Dose 2 TAB; Start at 15:30 Morphine Sulfate (morphine) 2 mg Q4H PRN IV SEVERE PAIN LEVEL 7-10 Last administered on 03/01/17 22:37; Admin Dose 2 MG; Start 02/28/17 at 15:30 Bisacodyl (Dulcolax Supp) 10 mg DAILY PRN [place] CONSTIPATION Last administered on 03/05/17 05:39; Admin Dose 10 MG; Start 02/28/17 at 15:30 Pantoprazole (Protonix Tab) 40 mg DAILY@06 PO Last administered on 03/06/17 06 :12; Admin Dose 40 MG; Start 03/01/17 at 06:00 Heparin Sodium (Porcine) (Heparin (5000 Units/0.5 ml)) 5,000 unit Q12 SC Last administered on 03/06/17 08:18; Admin Dose 5,000 UNIT; Start 02/28/17 at 21:00 Diagnostic Test (Pha) (Accu-Chek) 1 ea 02 XX ; Start 03/01/17 at 02:00 Miscellaneous Information 1 ea NOTE XX ; Start 02/28/17 at 15:30 Glucose (Glutose) 15 gm Q15M PRN PO DECREASED GLUCOSE; Start 02/28/17 at 15:30 Glucose (Glutose) 22.5 gm Q15M PRN PO DECREASED GLUCOSE; Start 02/28/17 at 15: 30 Dextrose (D50w Syringe) 25 ml Q15M PRN IV DECREASED GLUCOSE; Start 02/28/17 at 15:30 Dextrose (D50w Syringe) 50 ml Q15M PRN IV DECREASED GLUCOSE; Start 02/28/17 at 15:30 Glucagon (Glucagen) 1 mg Q15M PRN IM DECREASED GLUCOSE; Start 02/28/17 at 15:30 Glucose (Glutose) 15 gm Q15M PRN BUCCAL DECREASED GLUCOSE; Start 02/28/17 at 15 :30 Metoprolol Tartrate (Lopressor) 100 mg BID PO Last administered on 03/06/17 08 :21; Admin Dose 100 MG; Start 02/28/17 at 21:00 Metoclopramide HCl (Reglan) 5 mg Q6H PRN IV NAUSEA Last administered on 21:06; Admin Dose 5 MG; Start 03/01/17 at 10:30 Gabapentin (Neurontin) 100 mg BID PO Last administered on 03/06/17 08:18; Admin Dose 100 MG; Start 03/01/17 at 10:30 Insulin Glargine (Lantus) 30 unit DAILY@20 SC Last administered on 03/05/17 20 :42; Admin Dose 30 UNIT; Start 03/02/17 at 20:00 Levofloxacin (Levaquin) 500 mg Q48H PO Last administered on 03/06/17 12:04; Admin Dose 500 MG; Start 03/04/17 at 13:00 Epoetin Indra 8000 units 8,000 units MoWeFr@17 SC Last administered on 17:24; Admin Dose 8,000 UNITS; Start 03/03/17 at 17:00 Vancomycin HCl (Vancocin) 250 ml @ 125 mls/hr Q96H IVPB Last administered on 22:08; Admin Dose 125 MLS/HR; Start 03/05/17 at 22:00 Polyethylene Glycol (Miralax) 17 gm BID NGT Last administered on 03/06/17 08: 18; Admin Dose 17 GM; Start 03/05/17 at 13:00 Docusate Sodium (Colace) 100 mg Q12H PO Last administered on 03/06/17 12:04; Admin Dose 100 MG; Start 03/05/17 at 15:30 Fluticasone Propionate (Flonase 0.05% Nasal) 1 spray BID NASAL Last administered on 03/06/17 15:14; Admin Dose 1 SPRAY; Start 03/06/17 at 12:30 ANIBAL ALMANZAR MD Mar 06, 2017 19:00
[2017-03-06 20:11] VITALS: BP 97/49; RESP 21
[2017-03-06] MEDS: ONDANSETRON 4 MG INJ IV PRN (20:59)
[2017-03-06] MEDS: INSULIN GLARGINE [LANtus] 3 ML PEN SC SCH (21:09)
[2017-03-07] VITALS (14 sets, daily range): BP systolic 107–144; BP diastolic 8–71; PULSE 57–65; RESP 19–20
[2017-03-07] MEDS: ACCU-CHEK XX SCH (02:00)
[2017-03-07] MEDS: DOCUSATE SODIUM 100 MG CAP PO SCH ×2 (03:30→15:45)
[2017-03-07] MEDS: OXYCODONE/ACETAMINOPHEN (5/325) TAB PO PRN ×3 (04:56→21:57)
[2017-03-07] MEDS: PANTOPRAZOLE (EC) 40 MG TAB PO SCH (05:01)
[2017-03-07] MEDS: FUROSEMIDE 40 MG TAB PO SCH ×2 (05:03→17:53)
[2017-03-07] MEDS: LEVOTHYROXINE 100 MCG TAB PO SCH (07:36)
[2017-03-07] MEDS: POLYETHYLENE GLYCOL 17 GM PACKET NGT SCH ×2 (08:46→20:54)
[2017-03-07] MEDS: FLUTICASONE 0.05% 16 GM NAS SPRAY NASAL SCH ×2 (08:46→21:00)
[2017-03-07] MEDS: INSULIN ASPART [NOVOLOG] 3 ML PEN SC SCH ×7 (08:47→21:00)
[2017-03-07] MEDS: GABAPENTIN 100 MG CAP PO SCH ×2 (08:48→20:52)
[2017-03-07] MEDS: HEPARIN 5,000 UNIT/0.5 ML VIAL SC SCH ×2 (08:48→20:56)
[2017-03-07] MEDS: SEVELAMER 800 MG TAB PO SCH ×3 (08:49→17:53)
[2017-03-07] MEDS: ASPIRIN (EC) 81 MG TAB PO SCH (08:49)
[2017-03-07] MEDS: METOPROLOL 100 MG TAB PO SCH ×2 (09:00→20:52)
[2017-03-07] MEDS: LOSARTAN 50 MG TAB PO SCH (09:00)
--- NOTE | 2017-03-07 09:25 | CONS ---
Date/Time of Note Date/Time of Note DATE: 03/07/17 TIME: 09:24 Assessment/Plan Assessment/Plan Chief Complaint/Hosp Course - ESRD - ANEMIA - HTN - DM - OBESITY - CELLULITIS PLAN: She is on dialysis MWF, plan for HD today Monitor labs EPOGEN for Anemia to maintain Hgb >~ 10 Problems: Consultation Date/Type/Reason Admit Date/Time Feb 28, 2017 at 12:25 Initial Consult Date 02/28/17 Type of Consultation: NEPHROLOGY Reason for Consultation - ESRD 24 HR Interval Summary Constitutional: improved, no complaints Exam/Review of Systems Vital Signs Vitals Vital Signs Date Time Temp Pulse Resp B/P Pulse Ox O2 Delivery O2 Flow Rate FiO2 03/07/17 05:11 61 118/58 03/06/17 20:11 98.2 21 98 03/06/17 08:30 Nasal Cannula 03/05/17 15:11 2.0 Intake and Output 03/06/17 03/06/17 03/07/17 15:00 23:00 07:00 Intake Total 480 ml 960 ml 600 ml Balance 480 ml 960 ml 600 ml Exam Constitutional: alert, oriented Psych: no complaints Respiratory: crackles/rales Cardiovascular: edema, regular rate and rhythm, systolic murmur Gastrointestinal: soft Results Result Diagram: 03/05/17 1435 03/05/17 1435 Results 24 hrs Laboratory Tests Test 03/06/17 12:01 03/06/17 17:22 03/06/17 21:01 03/07/17 07:58 Bedside Glucose 137 107 140 183 Medications Medications Current Medications Aspirin (Halfprin) 81 mg DAILY PO Last administered on 03/07/17 08:49; Admin Dose 81 MG; Start 03/01/17 at 09:00 Hydralazine HCl (Apresoline) 50 mg BID PO Last administered on 03/06/17 08:20 ; Admin Dose 50 MG; Start 02/28/17 at 21:00 Losartan Potassium (Cozaar) 100 mg DAILY PO Last administered on 03/06/17 08: 20; Admin Dose 100 MG; Start 03/01/17 at 09:00 Ondansetron HCl (Zofran Inj) 4 mg Q6H PRN IV NAUSEA AND/OR VOMITING Last administered on 03/06/17 20:59; Admin Dose 4 MG; Start 02/28/17 at 15:30 Acetaminophen (Tylenol Tab) 650 mg Q6H PRN PO PAIN LEVEL 1-3 OR FEVER; Start at 15:30 Oxycodone/ Acetaminophen (Percocet (5/ 325)) 1 tab Q6H PRN PO MODERATE PAIN LEVEL 4-6 Last administered on 03/07/17 04:56; Admin Dose 1 TAB; Start at 15:30 Oxycodone/ Acetaminophen (Percocet (5/ 325)) 2 tab Q6H PRN PO SEVERE PAIN LEVEL 7-10 Last administered on 03/06/17 10:18; Admin Dose 2 TAB; Start at 15:30 Morphine Sulfate (morphine) 2 mg Q4H PRN IV SEVERE PAIN LEVEL 7-10 Last administered on 03/01/17 22:37; Admin Dose 2 MG; Start 02/28/17 at 15:30 Bisacodyl (Dulcolax Supp) 10 mg DAILY PRN [place] CONSTIPATION Last administered on 03/05/17 05:39; Admin Dose 10 MG; Start 02/28/17 at 15:30 Pantoprazole (Protonix Tab) 40 mg DAILY@06 PO Last administered on 03/07/17 05 :01; Admin Dose 40 MG; Start 03/01/17 at 06:00 Heparin Sodium (Porcine) (Heparin (5000 Units/0.5 ml)) 5,000 unit Q12 SC Last administered on 03/07/17 08:48; Admin Dose 5,000 UNIT; Start 02/28/17 at 21:00 Diagnostic Test (Pha) (Accu-Chek) 1 ea 02 XX ; Start 03/01/17 at 02:00 Miscellaneous Information 1 ea NOTE XX ; Start 02/28/17 at 15:30 Glucose (Glutose) 15 gm Q15M PRN PO DECREASED GLUCOSE; Start 02/28/17 at 15:30 Glucose (Glutose) 22.5 gm Q15M PRN PO DECREASED GLUCOSE; Start 02/28/17 at 15: 30 Dextrose (D50w Syringe) 25 ml Q15M PRN IV DECREASED GLUCOSE; Start 02/28/17 at 15:30 Dextrose (D50w Syringe) 50 ml Q15M PRN IV DECREASED GLUCOSE; Start 02/28/17 at 15:30 Glucagon (Glucagen) 1 mg Q15M PRN IM DECREASED GLUCOSE; Start 02/28/17 at 15:30 Glucose (Glutose) 15 gm Q15M PRN BUCCAL DECREASED GLUCOSE; Start 02/28/17 at 15 :30 Metoprolol Tartrate (Lopressor) 100 mg BID PO Last administered on 03/06/17 08 :21; Admin Dose 100 MG; Start 02/28/17 at 21:00 Metoclopramide HCl (Reglan) 5 mg Q6H PRN IV NAUSEA Last administered on 21:06; Admin Dose 5 MG; Start 03/01/17 at 10:30 Gabapentin (Neurontin) 100 mg BID PO Last administered on 03/07/17 08:48; Admin Dose 100 MG; Start 03/01/17 at 10:30 Insulin Glargine (Lantus) 30 unit DAILY@20 SC Last administered on 03/06/17 21 :09; Admin Dose 30 UNIT; Start 03/02/17 at 20:00 Levofloxacin (Levaquin) 500 mg Q48H PO Last administered on 03/06/17 12:04; Admin Dose 500 MG; Start 03/04/17 at 13:00 Epoetin Indra 8000 units 8,000 units MoWeFr@17 SC Last administered on 17:24; Admin Dose 8,000 UNITS; Start 03/03/17 at 17:00 Vancomycin HCl (Vancocin) 250 ml @ 125 mls/hr Q96H IVPB Last administered on 22:08; Admin Dose 125 MLS/HR; Start 03/05/17 at 22:00 Polyethylene Glycol (Miralax) 17 gm BID NGT Last administered on 03/07/17 08: 46; Admin Dose 17 GM; Start 03/05/17 at 13:00 Docusate Sodium (Colace) 100 mg Q12H PO Last administered on 03/06/17 12:04; Admin Dose 100 MG; Start 03/05/17 at 15:30 Fluticasone Propionate (Flonase 0.05% Nasal) 1 spray BID NASAL Last administered on 03/07/17 08:46; Admin Dose 1 SPRAY; Start 03/06/17 at 12:30 ANIBAL ALMANZAR MD Mar 07, 2017 09:25
[2017-03-07] MEDS: ONDANSETRON 4 MG INJ IV PRN (11:41)
--- NOTE | 2017-03-07 11:47 | PN ---
Date/Time of Note Date/Time of Note DATE: 03/07/17 TIME: 11:41 Assessment/Plan VTE Prophylaxis VTE Prophylaxis Intervention: heparin Lines/Catheters IV Catheter Type (from Nrsg): Saline Lock Urinary Cath still in place: No Assessment/Plan Assessment/Plan 61-year-old female: 1. Left inner thigh chronic subcutaneous infiltration post varicose vein laser procedure 6 months ago, CT with findings of extensive, subcutaneous infiltration of the partially visualized lower leg with calcifications, likely chronic in nature. Calcified subcutaneous varicosities are also present Mild leukocytosis, cont IV vancomycin and po Levaquin Pain control with Percocet prn and continue Neurontin S/p I&D left inner thigh eschar POD#3, stable on current abx, discussed with Dr Mccollum, plan for Vanco with HD x 10 days along with Levaquin po 2. End-stage renal disease on hemodialysis, on Friday/Friday/Friday schedule. Dr. Mccollum following. Plan for discharge home after HD today. 3. Diabetes mellitus, BG better controlled, continue Lantus to 30 units subcutaneously QHS along with NovoLog up to 10 units subcutaneously q. AC and moderate sliding scale insulin. BG stable. Hemoglobin A1c 8.2 Continue Gabapentin for neuropathic pain 4. Hypertension: continue home meds. BP stable. 5. Constipation: Colace and Miralax scheduled, and Dulcolax, MOM prn 6. Super morbid obesity Prophylaxis: Protonix for GI prophylaxis, heparin subcu for DVT prophylaxis. Disposition: Gen Surgery following, IV antibiotics, hemodialysis M/W/F. D/c plan today post HD Subjective 24 Hr Interval Summary Free Text/Dictation Patient doing Ok on HD Plan for d/c home after HD with outpatient follow up with Dr Velazquez next week Exam/Review of Systems Vital Signs Vitals Vital Signs Date Time Temp Pulse Resp B/P Pulse Ox O2 Delivery O2 Flow Rate FiO2 03/07/17 07:30 97.6 84 20 110/55 94 03/06/17 08:30 Nasal Cannula 03/05/17 15:11 2.0 Intake and Output 03/06/17 03/06/17 03/07/17 15:00 23:00 07:00 Intake Total 480 ml 960 ml 600 ml Balance 480 ml 960 ml 600 ml Exam Constitutional: alert, obese (morbid ), oriented Respiratory: clear to auscultation, normal air movement Cardiovascular: nl pulses, regular rate and rhythm Gastrointestinal: non-tender, soft Musculoskeletal: nl extremities to inspection Extremities: normal pulses, other (no edema, clubbing or cyanosis ) 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, nl mental status, nl speech, other (strength at baseline ) Results Result Diagram: 03/05/17 1435 03/05/17 1435 Results 24 hrs Laboratory Tests Test 03/06/17 12:01 03/06/17 17:22 03/06/17 21:01 03/07/17 07:58 Bedside Glucose 137 107 140 183 Medications Medications Current Medications Aspirin (Halfprin) 81 mg DAILY PO Last administered on 03/07/17 08:49; Admin Dose 81 MG; Start 03/01/17 at 09:00 Hydralazine HCl (Apresoline) 50 mg BID PO Last administered on 03/06/17 08:20 ; Admin Dose 50 MG; Start 02/28/17 at 21:00 Losartan Potassium (Cozaar) 100 mg DAILY PO Last administered on 03/06/17 08: 20; Admin Dose 100 MG; Start 03/01/17 at 09:00 Ondansetron HCl (Zofran Inj) 4 mg Q6H PRN IV NAUSEA AND/OR VOMITING Last administered on 03/06/17 20:59; Admin Dose 4 MG; Start 02/28/17 at 15:30 Acetaminophen (Tylenol Tab) 650 mg Q6H PRN PO PAIN LEVEL 1-3 OR FEVER; Start at 15:30 Oxycodone/ Acetaminophen (Percocet (5/ 325)) 1 tab Q6H PRN PO MODERATE PAIN LEVEL 4-6 Last administered on 03/07/17 04:56; Admin Dose 1 TAB; Start at 15:30 Oxycodone/ Acetaminophen (Percocet (5/ 325)) 2 tab Q6H PRN PO SEVERE PAIN LEVEL 7-10 Last administered on 03/06/17 10:18; Admin Dose 2 TAB; Start at 15:30 Morphine Sulfate (morphine) 2 mg Q4H PRN IV SEVERE PAIN LEVEL 7-10 Last administered on 03/01/17 22:37; Admin Dose 2 MG; Start 02/28/17 at 15:30 Bisacodyl (Dulcolax Supp) 10 mg DAILY PRN IN CONSTIPATION Last administered on 03/05/17 05:39; Admin Dose 10 MG; Start 02/28/17 at 15:30 Pantoprazole (Protonix Tab) 40 mg DAILY@06 PO Last administered on 03/07/17 05 :01; Admin Dose 40 MG; Start 03/01/17 at 06:00 Heparin Sodium (Porcine) (Heparin (5000 Units/0.5 ml)) 5,000 unit Q12 SC Last administered on 03/07/17 08:48; Admin Dose 5,000 UNIT; Start 02/28/17 at 21:00 Diagnostic Test (Pha) (Accu-Chek) 1 ea 02 XX ; Start 03/01/17 at 02:00 Miscellaneous Information 1 ea NOTE XX ; Start 02/28/17 at 15:30 Glucose (Glutose) 15 gm Q15M PRN PO DECREASED GLUCOSE; Start 02/28/17 at 15:30 Glucose (Glutose) 22.5 gm Q15M PRN PO DECREASED GLUCOSE; Start 02/28/17 at 15: 30 Dextrose (D50w Syringe) 25 ml Q15M PRN IV DECREASED GLUCOSE; Start 02/28/17 at 15:30 Dextrose (D50w Syringe) 50 ml Q15M PRN IV DECREASED GLUCOSE; Start 02/28/17 at 15:30 Glucagon (Glucagen) 1 mg Q15M PRN IM DECREASED GLUCOSE; Start 02/28/17 at 15:30 Glucose (Glutose) 15 gm Q15M PRN BUCCAL DECREASED GLUCOSE; Start 02/28/17 at 15 :30 Metoprolol Tartrate (Lopressor) 100 mg BID PO Last administered on 03/06/17 08 :21; Admin Dose 100 MG; Start 02/28/17 at 21:00 Metoclopramide HCl (Reglan) 5 mg Q6H PRN IV NAUSEA Last administered on 21:06; Admin Dose 5 MG; Start 03/01/17 at 10:30 Gabapentin (Neurontin) 100 mg BID PO Last administered on 03/07/17 08:48; Admin Dose 100 MG; Start 03/01/17 at 10:30 Insulin Glargine (Lantus) 30 unit DAILY@20 SC Last administered on 03/06/17 21 :09; Admin Dose 30 UNIT; Start 03/02/17 at 20:00 Levofloxacin (Levaquin) 500 mg Q48H PO Last administered on 03/06/17 12:04; Admin Dose 500 MG; Start 03/04/17 at 13:00 Epoetin Idnra 8000 units 8,000 units MoWeFr@17 SC Last administered on 17:24; Admin Dose 8,000 UNITS; Start 03/03/17 at 17:00 Vancomycin HCl (Vancocin) 250 ml @ 125 mls/hr Q96H IVPB Last administered on 22:08; Admin Dose 125 MLS/HR; Start 03/05/17 at 22:00 Polyethylene Glycol (Miralax) 17 gm BID NGT Last administered on 03/07/17 08: 46; Admin Dose 17 GM; Start 03/05/17 at 13:00 Docusate Sodium (Colace) 100 mg Q12H PO Last administered on 03/06/17 12:04; Admin Dose 100 MG; Start 03/05/17 at 15:30 Fluticasone Propionate (Flonase 0.05% Nasal) 1 spray BID NASAL Last administered on 03/07/17 08:46; Admin Dose 1 SPRAY; Start 03/06/17 at 12:30 JASPREET SMITH Mar 07, 2017 11:47
--- NOTE | 2017-03-07 11:50 | PDOCDIS ---
Discharge Instructions CONDITION Patient Condition: Stable HOME CARE INSTRUCTIONS: Special Diet: 1800 ADA ACTIVITY: Activity Restrictions: Slowly Increase Activity FOLLOW UP/APPOINTMENTS Appointments Follow up with Dr Velazquez next week Follow up with Dr Almanza in 1 to 2 week re Left inner thigh wound s/p Debridement Follow up with PCP within 1 week Please provide with wound care instruction ordered by Dr Almanza for patient to continue at home JASPREET SMITH Mar 07, 2017 11:50
[2017-03-07] MEDS ORDERED: VANC1PLA9 IV (11:55)
[2017-03-07] MEDS ORDERED: NOVO3I SC (11:55)
[2017-03-07] MEDS ORDERED: LANT3I SC (11:55)
[2017-03-07] MEDS ORDERED: Oxycodone/Acetamin (5/325) PO (11:55)
[2017-03-07] MEDS ORDERED: GABA100C14 PO (11:55)
[2017-03-07] MEDS ORDERED: LEVO500T72 PO (11:55)
[2017-03-07 14:12] LABS: ADD SCAN DIFF NO
[2017-03-07 14:14] LABS: BASOPHILS % 0.3 % (0.0-2.0); EOSINOPHILS # 0.2 10^3/ul (0.0-0.5); EOSINOPHILS % 2.7 % (0.0-7.0); HEMATOCRIT 29.2 % (37.0-47.0); HEMOGLOBIN 8.8 g/dl (12.0-16.0); LYMPHOCYTES # 0.8 10^3/ul (0.8-2.9); LYMPHOCYTES % 10.3 % (15.0-51.0); MEAN CORPUSCULAR HEMOGLOBIN 30.1 pg (29.0-33.0); MEAN CORPUSCULAR HGB CONC 30.1 g/dl (32.0-37.0); MEAN PLATELET VOLUME 10.1 fl (7.4-10.4); MONOCYTE # 0.3 10^3/ul (0.3-0.9); NEUTROPHIL # 6.3 10^3/ul (1.6-7.5); NEUTROPHILS % 81.8 % (39.0-77.0); PLATELET COUNT 276 10^3/UL (140-415); RED BLOOD COUNT 2.92 10^6/ul (4.20-5.40); RED CELL DISTRIBUTION WIDTH 14.5 % (11.5-14.5); WHITE BLOOD COUNT 7.7 10^3/ul (4.8-10.8)
[2017-03-07 14:25] LABS: MAGNESIUM 2.1 mg/dl (1.7-2.5); PHOSPHORUS 6.8 mg/dl (2.5-4.9)
[2017-03-07 14:26] LABS: CALCIUM 8.7 mg/dl (8.4-10.2); CREATININE 5.87 mg/dl (0.44-1.00); POTASSIUM 3.6 mmol/L (3.5-5.1)
--- NOTE | 2017-03-07 17:24 | DS ---
DATE OF ADMISSION: 02/28/2017 DATE OF DISCHARGE: 03/07/2017 ADMITTING PHYSICIAN: Jaspreet Carlisle MD DISCHARGING PHYSICIAN: Jaspreet Carlisle MD CONSULTANTS ON THIS ADMISSION: Dr. Mcdaniel from nephrology, Dr. Almanza from general surgery, also Dr. Balwinder Preciado from vascular surgery. OUTPATIENT PRIMARY CARE PHYSICIAN: Dr. Winter. OUTPATIENT VASCULAR SURGEON: Dr. Velazquez. OUTPATIENT RECYCLING MANAGER: Dr. Mcdaniel. CHIEF COMPLAINT ON ADMISSION: Left leg pain. BRIEF HISTORY OF PRESENT ILLNESS: This is a 61-year-old female with history of diabetes mellitus in sulin-dependent, morbid obesity, end-stage renal disease on hemodialysis, hypertension, hyperlipidem ia, who has been having left inner thigh pain and a wound for the past 6 months status post varicose vein procedure by her vascular surgeon. The patient presented to the emergency department with sev ere pain, cellulitic area around the left inner thigh wound. She was admitted to a medical/surgical bed on IV antibiotics. HOSPITAL COURSE: The patient was admitted to a medical/surgical bed. She was started on IV vancomy leigh along with oral Levaquin. She was having episodes of intractable nausea, vomiting that seemed t o be secondary to the [place] she was taking. Therefore, [place] was discontinued. She was placed on R eglan for 24 hours and her medications were switched to Percocet along with morphine as needed and N eurontin. She did really well with that. She is tolerating p.o. very well. By hospital day #2, h er pain is better controlled with Percocet. She is on Neurontin and tolerating it. However, the ce llulitic area surrounding the left inner thigh wound was still unchanged and was getting more erythe matous at times. Dr. Almanza from general surgery was consulted. He had a discussion with Dr. Velazquez , the vascular surgeon, who did the varicose vein treatment 6 months prior and they agreed to debrid e the eschar. Dr. Almanza was kind enough to do it. The patient is postoperative day 3. The area is clean. She still has some tenderness to palpation, but the erythema is much improved. The patie nt was instructed to be careful not to rub the inner thighs too frequently. Also, weight loss is re commended in her case. She will be continued on vancomycin. I have discussed this with her nephrol ogist, Dr. Mcdaniel, who will be giving her the doses at dialysis for the next 10 days. She is given also Levaquin to go home with for 10 days. Today, her laboratory data is showing a white blood delmar l count down to 7.7. The patient is afebrile, tolerating p.o., doing very well. She was dialyzed t per her schedule. Her next dialysis is due Friday. She will be discharged home today with out patient followup with Dr. Almanza in 1 to 2 weeks, hopefully we will get some wound instructions fro m Dr. Almanza. Follow up with Dr. Velazquez within 1 week. She also needs to follow up with her primary care physician and outpatient dialysis on Friday. DISPOSITION: Discharge home. DISCHARGE CONDITION: Stable. DISCHARGE DIET: Diabetic diet. DISCHARGE ACTIVITY: Resume home activity. FOLLOWUP: 1. Again, the patient is to follow up with Dr. Almanza within 1 to 2 weeks. 2. Follow up with Dr. Velazquez within 1 week. 3. Follow up with primary care physician within 1 week. 4. Follow up with outpatient dialysis by Friday with antibiotics to be given at that time. DISCHARGE DIAGNOSES: 1. Left inner thigh chronic subcutaneous infiltration and cellulitis, status post debridement of wo und. 2. End-stage renal disease, on hemodialysis. 3. Diabetes mellitus. 4. Hypertension. 5. Morbid obesity. 6. Constipation, resolved. DISCHARGE MEDICATIONS: 1. Neurontin 100 mg p.o. b.i.d. 2. Lantus 30 units subcutaneously at bedtime. 3. NovoLog 10 units subcutaneously with meals. 4. Levaquin 500 mg p.o. q.48 hours, 5 tabs for a total of 10 days. 5. Vancomycin 1 gram q.96 hours with dialysis for the next 10 days. 6. Percocet 5/325 one to two tabs p.o. q.6 hours p.r.n. pain. 7. Aspirin 81 mg daily. 8. Lasix 40 mg p.o. b.i.d. 9. Hydralazine 50 mg p.o. b.i.d. 10. Levothyroxine 100 mcg daily. 11. Cozaar 100 mg daily. 12. Lopressor 100 mg p.o. b.i.d. DISCONTINUED MEDICATIONS: The patient has corrected that her metoprolol is 100 mg p.o. b.i.d. and a lso her insulin regimen has been adjusted as the values she gave earlier are very unlikely. Dictated By: JASPREET ROBERTS/VICTORINA Conf#: [id number] DID#: [id number]
[2017-03-07] MEDS: EPOETIN 4000 UNITS/1 ML INJ (ESRD) SC SCH (17:54)
[2017-03-07] MEDS: INSULIN GLARGINE [LANtus] 3 ML PEN SC SCH (20:55)
[2017-03-08] MEDS: OXYCODONE/ACETAMINOPHEN (5/325) TAB PO PRN (01:31)
[2017-03-08] MEDS: ACCU-CHEK XX SCH (02:00)
[2017-03-08] MEDS: DOCUSATE SODIUM 100 MG CAP PO SCH ×2 (03:30→15:30)
[2017-03-08] MEDS: PANTOPRAZOLE (EC) 40 MG TAB PO SCH (05:46)
[2017-03-08] MEDS: FUROSEMIDE 40 MG TAB PO SCH ×2 (05:46→16:57)
[2017-03-08 07:57] VITALS: BP 135/63; RESP 18
[2017-03-08] MEDS: INSULIN ASPART [NOVOLOG] 3 ML PEN SC SCH ×6 (08:50→18:05)
[2017-03-08] MEDS: HEPARIN 5,000 UNIT/0.5 ML VIAL SC SCH (08:51)
[2017-03-08] MEDS: GABAPENTIN 100 MG CAP PO SCH (08:52)
[2017-03-08] MEDS: SEVELAMER 800 MG TAB PO SCH ×3 (08:52→16:57)
[2017-03-08] MEDS: LEVOTHYROXINE 100 MCG TAB PO SCH (08:52)
[2017-03-08] MEDS: ASPIRIN (EC) 81 MG TAB PO SCH (08:53)
[2017-03-08] MEDS: POLYETHYLENE GLYCOL 17 GM PACKET NGT SCH (08:53)
[2017-03-08] MEDS: METOPROLOL 100 MG TAB PO SCH (08:53)
[2017-03-08] MEDS: LOSARTAN 50 MG TAB PO SCH (08:53)
[2017-03-08] MEDS: FLUTICASONE 0.05% 16 GM NAS SPRAY NASAL SCH (08:54)
[2017-03-08] MEDS ORDERED: ONDANSETRON (ODT) 4 MG TAB ODT PRN (12:30)
[2017-03-08] MEDS: LEVOFLOXACIN 500 MG TAB PO SCH (13:54)
--- NOTE | 2017-03-08 18:05 | PN ---
Date/Time of Note Date/Time of Note DATE: 03/07/17 TIME: 18:04 Assessment/Plan Lines/Catheters IV Catheter Type (from Nrs): Saline Lock [place] in Place (from Nrs): No Assessment/Plan Chief Complaint/Hosp Course 1. Left inner thigh chronic cellulitis and infection s/p saphenous vein ablation s/p exc faisal 03/04. s/p Abx/ -local care -warm compress -elevation -encourage weight loss 2. Morbid obesity with BMI of 50. The patient is highly encouraged to optimize her nutrition and exercise to improve her overall health status. If she is not successful by that route, she may seek weight loss surgery. 3. Diabetes. Continue nutrition and medication control and encourage weight loss. 4. Hypertension. Continue nutrition and medication control, encourage weight loss. 5. Anemia without evidence of acute blood loss. Continue monitoring and workup per medical and GI. 6. Leukocytosis, probably secondary to #1 as above. 7. Rheumatoid arthritis. Continue medical optimization. 8. Electrolyte abnormalities with end-stage renal disease on hemodialysis. Continue judicious fluid management and dialysis. Thank you Late entry 03/07 Problems: Subjective 24 Hr Interval Summary s/p Exc faisal left thigh 03/04. Min pain at site. No f/c. No n/v. No cp/sob. No cough. No hoffman/dizzy/visual or neuro changes. No dc. Exam/Review of Systems Vital Signs Vitals Vital Signs Date Time Temp Pulse Resp B/P Pulse Ox O2 Delivery O2 Flow Rate FiO2 03/08/17 07:57 98.5 60 18 135/63 98 03/07/17 23:15 Nasal Cannula 03/05/17 15:11 2.0 Intake and Output 03/07/17 03/07/17 03/08/17 15:00 23:00 07:00 Intake Total 400 ml 960 ml 800 ml Output Total 3300 ml Balance -2900 ml 960 ml 800 ml Exam Free Text/Dictation GENERAL: Morbid obesity, no acute distress. HEENT: Pupils equal and reactive without scleral icterus. Mucous membranes are moist. NECK: Obese, no crepitus, no JVD observable. PULMONARY: Normal respiratory effort. No wheezing. HEART: S1, S2 present. ABDOMEN: Soft, morbidly obese, nontender. No rebound. EXTREMITIES: With some edema. Left inner thigh with induration and wound without fluctuance. VASCULAR: Capillary refill is 2 seconds. NEUROLOGIC: Alert, oriented, moves all 4 extremities grossly. Results Result Diagram: 03/07/17 1130 03/07/17 1130 ALFREDO SANCHEZ MD Mar 08, 2017 18:05
--- NOTE | 2017-03-08 18:06 | PN ---
Date/Time of Note Date/Time of Note DATE: 03/08/17 TIME: 18:05 Assessment/Plan Lines/Catheters IV [facility] Type (from [facility] Saline Lock [place] in Place (from Nrs): No Assessment/Plan Chief Complaint/Hosp Course 1. Left inner thigh chronic cellulitis and infection s/p saphenous vein ablation s/p exc faisal 03/04. s/p Abx/ -local care -warm compress -elevation -encourage weight loss 2. Morbid obesity with BMI of 50. The patient is highly encouraged to optimize her nutrition and exercise to improve her overall health status. If she is not successful by that route, she may seek weight loss surgery. 3. Diabetes. Continue nutrition and medication control and encourage weight loss. 4. Hypertension. Continue nutrition and medication control, encourage weight loss. 5. Anemia without evidence of acute blood loss. Continue monitoring and workup per medical and GI. 6. Leukocytosis, probably secondary to #1 as above. 7. Rheumatoid arthritis. Continue medical optimization. 8. Electrolyte abnormalities with end-stage renal disease on hemodialysis. Continue judicious fluid management and dialysis. Thank you, Problems: Subjective 24 Hr Interval Summary s/p Exc faisal left thigh 03/04. Min pain at site. No f/c. No n/v. No cp/sob. No cough. No hoffman/dizzy/visual or neuro changes. No dc. Exam/Review of Systems Vital Signs Vitals Vital Signs Date Time Temp Pulse Resp B/P Pulse Ox O2 Delivery O2 Flow Rate FiO2 03/08/17 07:57 98.5 60 18 135/63 98 03/07/17 23:15 Nasal Cannula 03/05/17 15:11 2.0 Intake and Output 03/07/17 03/07/17 03/08/17 15:00 23:00 07:00 Intake Total 400 ml 960 ml 800 ml Output Total 3300 ml Balance -2900 ml 960 ml 800 ml Exam Free Text/Dictation GENERAL: Morbid obesity, no acute distress. HEENT: Pupils equal and reactive without scleral icterus. Mucous membranes are moist. NECK: Obese, no crepitus, no JVD observable. PULMONARY: Normal respiratory effort. No wheezing. HEART: S1, S2 present. ABDOMEN: Soft, morbidly obese, nontender. No rebound. EXTREMITIES: With some edema. Left inner thigh with induration and wound without fluctuance. VASCULAR: Capillary refill is 2 seconds. NEUROLOGIC: Alert, oriented, moves all 4 extremities grossly. Results Result Diagram: 03/07/17 1130 03/07/17 1130 ALFREDO SANCHEZ MD Mar 08, 2017 18:06
[2017-03-08 20:07] VITALS: BP 107/53; RESP 16
== END 2017-03-08 20:24 | disposition home or self-care (01) | DRG 570 ==
LOC: E/R 07:52 → PP2 09:05 → OBSVTOIN 12:25 → PP2 14:10
PROVIDERS: ADMIT Internal Medicine; ATTEND Internal Medicine
PROC: 5A1D60Z (ICD-10-PCS; 2017-03-03)
PROC: 0JBM0ZZ Excision of Left Upper Leg Subcutaneous Tissue and Fascia, Open Approach (ICD-10-PCS; principal; 2017-03-04)
DX: L03.116 Cellulitis of left lower limb (principal); N18.6 End stage renal disease; E11.22 Type 2 diabetes mellitus with diabetic chronic kidney disease; I12.0 Hypertensive chronic kidney disease with stage 5 chronic kidney disease or end stage renal disease; Z68.43 Body mass index [BMI] 50.0-59.9, adult; E11.65 Type 2 diabetes mellitus with hyperglycemia; Z99.2 Dependence on renal dialysis; Z79.4 Long term (current) use of insulin; E66.01 Morbid (severe) obesity due to excess calories; E78.5 Hyperlipidemia, unspecified; R11.2 Nausea with vomiting, unspecified; D64.9 Anemia, unspecified; K59.00 Constipation, unspecified; M06.9 Rheumatoid arthritis, unspecified; I25.10 Atherosclerotic heart disease of native coronary artery without angina pectoris; Z79.82 Long term (current) use of aspirin
CPT/HCPCS: 73700; 80048; 80202; 82962; 83036; 83735; 84100; 84439; 84443; 85025; 85610; 85730; 88304; 90935; 96365; 96366; 96367; 96375; 96376; G0378; J0886; J1170; J1644; J1815; J2270; J2405; J2543; J2765; J3370; J7050

== ENCOUNTER 2017-04-07 18:10 | Inpatient (IN) | payer BC, OTHER ==
[~2017-04-07] VITALS: Ht 157.5 cm; Wt 122.5 kg
[~2017-04-07 18:10] MED LIST changes: -ACET-818 PO; -ACET325T33 PO; -AZIT250T94 PO; -AZIT500T5 PO; -DOXY100C42 PO; -ERYT1OIN6 BOTH EYES; -FLUT16SP24 NASAL; -FLUT9.9S NASAL; +GABA100C14 PO; -HYDR473S47 PO; -INSU100C3 SC; +LEVO500T72 PO; +NOVO3I SC; +Oxycodone/Acetamin (5/325) PO; -SODI15OR8 PO; +VANC1PLA9 IV
[2017-04-07 19:08] LABS: ABNORMAL IP MESSAGE 1; ADD SCAN DIFF NO; BASOPHIL # 0.1 10^3/ul (0.0-0.1); BASOPHILS % 0.3 % (0.0-2.0); EOSINOPHILS % 0.2 % (0.0-7.0); LYMPHOCYTES # 1.1 10^3/ul (0.8-2.9); LYMPHOCYTES % 4.8 % (15.0-51.0); MEAN CORPUSCULAR HEMOGLOBIN 29.9 pg (29.0-33.0); MEAN CORPUSCULAR HGB CONC 30.8 g/dl (32.0-37.0); MEAN PLATELET VOLUME 9.6 fl (7.4-10.4); MONOCYTE # 1.7 10^3/ul (0.3-0.9); MONOCYTES % 7.3 % (0.0-11.0); NEUTROPHIL # 19.4 10^3/ul (1.6-7.5); NEUTROPHILS % 83.9 % (39.0-77.0); PLATELET COUNT 332 10^3/UL (140-415); RED BLOOD COUNT 2.68 10^6/ul (4.20-5.40); WHITE BLOOD COUNT 23.1 10^3/ul (4.8-10.8)
[2017-04-07 19:24] LABS: INR 1.14; PROTIME 14.6 Sec (12.2-14.2); PT RATIO 1.1
[2017-04-07 19:25] LABS: PARTIAL THROMBOPLASTIN TIME 34.9 Sec (25.0-35.0)
[2017-04-07] MEDS ORDERED: LEVO250T9 PO (19:28)
[2017-04-07] MEDS ORDERED: INSU100I27 SQ (19:32)
[2017-04-07] MEDS ORDERED: NOVO3I SC (19:33)
[2017-04-07] MEDS ORDERED: PANT40TA3 PO (19:35)
[2017-04-07] MEDS ORDERED: ONDA4TAB8 PO (19:36)
[2017-04-07] MEDS ORDERED: AMLO5TAB4 PO (19:38)
[2017-04-07 19:44] LABS: ADD UMIC YES; UR BILIRUBIN (Dip) 2+ (NEGATIVE); UR BLOOD (Dip) 3+ (NEGATIVE); UR COLOR DK. RED (YELLOW); UR KETONES (Dip) 15 (NEGATIVE); UR LEUKOCYTE ESTERASE (Dip) 2+ (NEGATIVE); UR NITRITE (Dip) POSITIVE (NEGATIVE); UR TOTAL PROTEIN (Dip) 4+ (NEGATIVE); UR UROBILINOGEN (Dip) 2.0 E.U./dL (0.1-1.0)
[2017-04-07] MEDS ORDERED: GABA100C14 PO (19:44)
[2017-04-07] MEDS ORDERED: MORP10CA11 PO (19:48)
[2017-04-07 19:49] LABS: UR CLARITY BLOODY (CLEAR)
[2017-04-07 19:50] LABS: ICTOTEST NEGATIVE (NEGATIVE); UR BACTERIA MANY; URINE RBCS >200 /HPF (0)
[2017-04-07] MEDS ORDERED: HYDR-3672 PO (19:50)
[2017-04-07] MEDS ORDERED: ZINC220T PO (19:51)
[2017-04-07] MEDS ORDERED: ASCO500C7 PO (19:51)
[2017-04-07] MEDS ORDERED: PIPER-TAZO 2.25 GM (PMX) 50 ML IVPB ONE (20:00)
[2017-04-07] MEDS ORDERED: CALC667C PO (20:04)
[2017-04-07 20:08] LABS: ALBUMIN 3.1 g/dl (3.3-4.9)
[2017-04-07 20:09] LABS: POTASSIUM 4.2 mmol/L (3.5-5.1)
[2017-04-07 20:11] LABS: ALBUMIN/GLOBULIN RATIO 0.75; CREATININE 4.51 mg/dl (0.44-1.00); TOTAL PROTEIN 7.2 g/dl (6.1-8.1)
--- NOTE | 2017-04-07 20:26 | ERA ---
ER Documentation Chief Complaint Date/Time DATE: 04/07/17 TIME: 20:23 Chief Complaint Vaginal bleeding HPI The patient is a 61-year-old female, presenting to the ER because of vaginal bleeding today. She is a very poor historian, denies fever, chills, neck pain, chest pain, dyspnea, abdominal pain, vomiting, dysuria, diarrhea, constipation. She does not smoke or drink Past medical history: Diabetes mellitus, chronic kidney disease on hemodialysis , hypertension, dyslipidemia ROS All systems reviewed and are negative except as per history of present illness. Medications Home Meds Reported Medications Calcium Acetate* (Calcium Acetate*) 667 Mg Capsule, 1334 MG PO WITH MEALS, #60 CAP 04/07/17 Zinc Sulfate* (Zinc Sulfate*) 220 Mg Tablet, 220 MG PO DAILY, TAB 04/07/17 Ascorbic Acid* (Vitamin C*) 500 Mg Capsule.sa, 500 MG PO DAILY, CAP 04/07/17 Hydralazine Hcl* (Hydralazine Hcl*) 50 Mg Tab, 50 MG PO Q4H, #60 TAB TAKE IF SBP>170 DX 04/07/17 Morphine Sulfate (Morphine Sulfate ER) 10 Mg Cap.er.pel, 10 MG PO Q3H Y for PRN , CAP 04/07/17 Gabapentin* (Gabapentin*) 100 Mg Capsule, 100 MG PO BID, #60 CAP 04/07/17 Amlodipine Besylate* (Norvasc*) 5 Mg Tablet, 5 MG PO DAILY, TAB 04/07/17 Ondansetron Hcl* (Zofran*) 4 Mg Tablet, 4 MG PO Q6H Y for NAUSEA AND OR VOMITING , TAB 04/07/17 Pantoprazole* (Protonix*) 40 Mg Tablet.dr, 40 MG PO DAILY, TAB 04/07/17 Insulin Aspart* (Novolog Insulin Pen*) 100 Unit/Ml Soln, 16 UNIT SC WITH MEALS, EA 04/07/17 Insulin Detemir (Levemir Flextouch) 100 Unit/1 Ml Insuln.pen, 26 UNIT SQ Q12H 04/07/17 Levofloxacin* (Levofloxacin*) 250 Mg Tablet, 250 MG PO Q48H, TAB 04/07/17 Aspirin* (Aspirin* (EC)) 81 Mg Tablet.dr, 81 MG PO DAILY, TAB 12/12/14 Discontinued Reported Medications Furosemide (Lasix) 40 Mg Tab, 40 MG PO BID 8/16/14 Levothyroxine Sodium (Levothroid) 100 Mcg Tablet, 100 MCG PO QAM 06/25/14 Hydralazine Hcl* (Hydralazine Hcl*) 50 Mg Tablet, 50 MG PO BID 06/25/14 Losartan Potassium* (Cozaar*) 100 Mg Tablet, 100 MG PO DAILY 06/25/14 Metoprolol Tartrate* (Lopressor*) 100 Mg Tablet, 200 MG PO BID 06/25/14 Discontinued Scripts Vancomycin/0.9 % Sod Chloride (Vanco 1 Gram/250 ml-0.9% NaCl) 1 Gm/250 Ml Plast..bag, 1 GM IV Q96H for 10 Days to be given at HD and for total of 10 days treatment Nephrology aware Prov:JASPREET SMITH 03/07/17 Insulin Glargine* (Lantus*) 100 Unit/Ml Soln, 30 UNIT SC DAILY@20 for 30 Days, 3 Refills Prov:JASPREET SMITH 03/07/17 Insulin Aspart* (Novolog Insulin Pen*) 100 Unit/Ml Soln, 10 UNIT SC WITH MEALS for 30 Days, 3 Refills Prov:JASPREET SMITH 03/07/17 Gabapentin* (Gabapentin*) 100 Mg Capsule, 100 MG PO BID for 30 Days, CAP 3 Refills Prov:JASPREET SMITH 03/07/17 [Oxycodone/Acetamin (5/325)] 1 TAB TAB No Conflict Check, 2 TAB PO Q6H Y for SEVERE PAIN LEVEL 7-10, #60 Prov:JASPREET SMITH 03/07/17 Levofloxacin* (Levaquin*) 500 Mg Tablet, 500 MG PO Q48H, #5 TAB for total of 10 days treatement Prov:JASPREET SMITH 03/07/17 Allergies Allergies: Coded Allergies: codeine (Verified Allergy, Unknown, 04/07/17) PMhx/Soc History of Surgery: Yes (shoulder, both hands, left leg) Anesthesia Reaction: No Hx Neurological Disorder: No Hx Respiratory Disorders: No Hx Cardiac Disorders: Yes (HTN) Hx Psychiatric Problems: No Hx Miscellaneous Medical Probl: No Hx Alcohol Use: No Hx Substance Use: No Hx Tobacco Use: No Smoking Status: Never smoker Physical Exam Vitals Vital Signs Date Time Temp Pulse Resp B/P Pulse Ox O2 Delivery O2 Flow Rate FiO2 04/07/17 20:44 99.1 72 16 125/59 100 Room Air 04/07/17 18:24 99.3 78 18 137/60 100 Physical Exam Const: No acute distress. Head: Atraumatic. Eyes: Normal Conjunctiva. ENT: Normal External Ears, Nose and Mouth. Neck: Full range of motion. No meningismus. Resp: Clear to auscultation bilaterally. Cardio: Regular rate and rhythm, no murmurs. Abd: Soft, obese, normal bowel sounds, non tender. Skin: No petechiae or rashes. Back: No midline or flank tenderness. Ext: Left heel is covered with dressing Neur: Limited due to her condition Psych: Limited due to her condition Result Diagram: 04/07/17189904/07/171944 Results 24 hrs Laboratory Tests Test 04/07/17 19:00 04/07/17 19:20 04/07/17 19:45 04/07/17 21:55 White Blood Count 23.110^3/ul Red Blood Count 2.6810^6/ul Hemoglobin 8.0g/dl Hematocrit 26.0% Mean Corpuscular Volume 97.0fl Mean Corpuscular Hemoglobin 29.9pg Mean Corpuscular Hemoglobin Concent 30.8g/dl Red Cell Distribution Width 15.0% Platelet Count 64497^3/UL Mean Platelet Volume 9.6fl Neutrophils % 83.9% Lymphocytes % 4.8% Monocytes % 7.3% Eosinophils % 0.2% Basophils % 0.3% Nucleated Red Blood Cells % 0.0/100WBC Neutrophils # 19.410^3/ul Lymphocytes # 1.110^3/ul Monocytes # 1.710^3/ul Eosinophils # 0.010^3/ul Basophils # 0.110^3/ul Nucleated Red Blood Cells # 0.010^3/ul Prothrombin Time 14.6Sec Prothrombin Time Ratio 1.1 INR International Normalized Ratio 1.14 Activated Partial Thromboplast Time 34.9Sec Urine Color DK. RED Urine Clarity BLOODY Urine pH 7.5 Urine Specific [place] 1.020 Urine Ketones 15 Urine Nitrite POSITIVE Urine Bilirubin 2+ Urine Ictotest NEGATIVE Urine Urobilinogen 2.0 E.U./dL Urine Leukocyte Esterase 2+ Urine Microscopic RBC >200/HPF Urine Microscopic WBC >50/HPF Urine Bacteria MANY Urine Hemoglobin 3+ Urine Glucose 0.1%% Urine Total Protein 4+ Sodium Level 133mmol/L Potassium Level 4.2mmol/L Chloride Level 95mmol/L Carbon Dioxide Level 32mmol/L Anion Gap 10 Blood Urea Nitrogen 31mg/dl Creatinine 4.51mg/dl Glucose Level 208mg/dl Lactic Acid Level 1.2mmol/L 1.3mmol/L Calcium Level 9.0mg/dl Total Bilirubin 0.0mg/dl Direct Bilirubin 0.00mg/dl Indirect Bilirubin 0.0mg/dl Aspartate Amino Transf (AST/SGOT) 26IU/L Alanine Aminotransferase (ALT/SGPT) 27IU/L Alkaline Phosphatase 181IU/L Total Protein 7.2g/dl Albumin 3.1g/dl Globulin 4.10g/dl Albumin/Globulin Ratio 0.75 Lipase 22U/L Current Medications Medications (Trade) Dose Ordered Sig/Memo Route PRN Reason Start Time Stop Time Status Last Admin Dose Admin Piperacillin Sod/ Tazobactam Sod (Zosyn 2.25gm/ 50ml (Pmx)) 50 ml @ 100 mls/hr ONCE ONCE IVPB 04/07/17 20:00 04/07/17 20:29 DC 04/07/17 20:00 Procedures/[place] [id number] Radiology Main Line: [phone] DIAGNOSTIC IMAGING REPORT Patient: CLAIRE BATES : 1955 Age: 61 Sex: F MR #: [id number] DOS: 04/07/17 1903 Ordering MD: LUCILA ARGUETA MD Location: E/R Room/Bed: PROCEDURE: US Non-OB Pelvis. CLINICAL INDICATION: Gross hematuria, possible vaginal bleeding. TECHNIQUE: Multiple sonographic images of the pelvis were obtained utilizing a transabdominal and endovaginal technique. The images were reviewed on a PACS workstation. COMPARISON: None. FINDINGS: The uterus, ovaries, and adnexal regions are not visualized. IMPRESSION: 1. Nondiagnostic examination. RPTAT: HTAR .Charan Briceno MD, Date Time Electronically viewed and signed by .Charan Briceno MD, on 04/07/2017 21:37 .R/ CC: LUCILA ARGUETA MD Portable chest x-ray is pending MEDICAL MAKING DECISION: The patient is a 61-year-old female, presenting with acute urinary retention, acute cystitis. She does not have any vaginal bleeding. She was treated with a [place] catheter that drained out about 400 cc of bright red blood. She was treated with Zosyn for acute cystitis The differential diagnoses considered include but are not limited to cholelithiasis, cholecystitis, cystitis, pancreatitis, hepatitis, gastritis, peptic ulcer disease, gastric ulcer, appendicitis, diverticulitis, cholangitis, choledocholithiasis, partial small bowel obstruction. Departure Diagnosis: Primary Impression: Acute cystitis Additional Impressions: Acute urinary retention Hematuria Anemia Condition: Stable Comments The patient was last admitted by Dr. Smith on February 28, 2017, however Dr. Alvarez claimed that she is his patient and wanted to admit the patient I discussed the findings with the patient. I discussed the patient with her physician Dr. Alvarez at 8:20 PM who was made aware of the lab, the treatment, the patient condition. The patient is admitted to medical surgery. LUCILA ARGUETA MD April 07, 2017 20:26
[2017-04-07 20:44] VITALS: TEMP 99.1
--- NOTE | 2017-04-07 21:37 | RADRPT ---
PROCEDURE: US Non-OB Pelvis. CLINICAL INDICATION: Gross hematuria, possible vaginal bleeding. TECHNIQUE: Multiple sonographic images of the pelvis were obtained utilizing a transabdominal and endovaginal technique. The images were reviewed on a PACS workstation. COMPARISON: None. FINDINGS: The uterus, ovaries, and adnexal regions are not visualized. IMPRESSION: 1. Nondiagnostic examination. RPTAT: HTAR .Charan Briceno MD, MD Date Time Electronically viewed and signed by .Charan Briceno MD, on 04/07/2017 21:37 .R/
[2017-04-07] MEDS ORDERED: MAGNESIUM HYDROXIDE 30ML CUP PO PRN (22:30)
[2017-04-07] MEDS ORDERED: NACL 0.9% 3 ML SYG IV SCH (22:30)
[2017-04-07] MEDS ORDERED: ACETAMINOPHEN 325 MG TAB PO PRN (22:30)
--- NOTE | 2017-04-07 22:33 | RADRPT ---
PROCEDURE: XR Chest. CLINICAL INDICATION: Fever TECHNIQUE: Single frontal view of the chest was obtained. COMPARISON: 06/08/2016 FINDINGS: The cardiomediastinal silhouette is normal size. Pulmonary vasculature is within normal limits. Th e lungs are clear. No signs of pleural fluid or pneumothorax are seen. The osseous structures and soft tissues are unre markable. There is a right internal jugular dialysis catheter extending to the cavoatrial junction r egion. IMPRESSION: No evidence for active cardiopulmonary disease. Hypoventilatory examination. Right internal jugular catheter in place. RPTAT: HBST .Edgar Morrison MD, Date Time Electronically viewed and signed by .Edgar Morrison MD, MD on 04/07/2017 22:33 .T/
[2017-04-07] MEDS: MEROPENEM 1 GM/100 ML (PMX) 100 ML IV SCH (22:59)
[2017-04-07] MEDS ORDERED: GLUCOSE GEL 15 GRAM TUBE PO PRN ×2 (23:00)
[2017-04-07] MEDS ORDERED: GLUCAGON 1 MG INJ IM PRN (23:00)
[2017-04-07] MEDS ORDERED: DEXTROSE 50% 50 ML SYRINGE IV PRN ×2 (23:00)
[2017-04-07] MEDS ORDERED: VANCOMYCIN IV PER PHARMACY XX SCH (23:00)
[2017-04-07] MEDS ORDERED: GLUCOSE GEL 15 GRAM TUBE BUCCAL PRN (23:00)
[2017-04-07] MEDS ORDERED: VANCOMYCIN 2 GM in SOD CHLORIDE 0.9% 500 ML IVPB ONE (23:30)
[2017-04-08 00:45] VITALS: Ht 157.5 cm; Wt 122.5 kg
[2017-04-08] MEDS: ACCUCHECK AT 2AM (Patients on SS coverage) XX SCH (02:00)
[2017-04-08 02:03] VITALS: BP 130/92; RESP 18
[2017-04-08] MEDS ORDERED: ACETAMINOPHEN 325 MG TAB PO ONE (03:30)
[2017-04-08] MEDS ORDERED: PENDING SANTYL ORDER FOR WOUND CARE XX PRN (03:30)
[2017-04-08] MEDS: ONDANSETRON 4 MG INJ IV PRN (05:39)
[2017-04-08] MEDS: PANTOPRAZOLE (EC) 40 MG TAB PO SCH (05:39)
[2017-04-08 06:10] LABS: ADD SCAN DIFF NO
[2017-04-08 06:16] LABS: ABNORMAL IP MESSAGE 1; HEMATOCRIT 22.7 % (37.0-47.0); MEAN CORPUSCULAR HEMOGLOBIN 29.6 pg (29.0-33.0); MEAN CORPUSCULAR HGB CONC 30.4 g/dl (32.0-37.0); MEAN CORPUSCULAR VOLUME 97.4 fl (82.0-101.0); MEAN PLATELET VOLUME 9.6 fl (7.4-10.4); PLATELET COUNT 298 10^3/UL (140-415); RED BLOOD COUNT 2.33 10^6/ul (4.20-5.40); RED CELL DISTRIBUTION WIDTH 14.9 % (11.5-14.5)
[2017-04-08 06:55] LABS: ALBUMIN 2.8 g/dl (3.3-4.9); ALBUMIN/GLOBULIN RATIO 0.77; CALCIUM 8.6 mg/dl (8.4-10.2); CREATININE 4.89 mg/dl (0.44-1.00); TOTAL PROTEIN 6.4 g/dl (6.1-8.1)
[2017-04-08 07:17] LABS: THYROID STIMULATING HORMONE 1.1 MIU/L (0.465-4.680)
[2017-04-08 07:28] VITALS: BP 128/59; RESP 18
[2017-04-08] MEDS ORDERED: INSULIN DETEMIR [LEVEMIR] 3ML CART SC SCH (08:00)
[2017-04-08] MEDS: INSULIN ASPART [NOVOLOG] 3 ML PEN SC SCH ×4 (08:36→20:45)
[2017-04-08] MEDS: CALCIUM ACETATE 667 MG CAP PO SCH ×3 (08:39→17:56)
[2017-04-08] MEDS: ZINC SULFATE 220 MG CAP PO SCH (08:42)
[2017-04-08] MEDS: ASCORBIC ACID 500 MG TAB PO SCH (08:42)
[2017-04-08] MEDS ORDERED: GABAPENTIN 100 MG CAP PO SCH (09:00)
[2017-04-08] MEDS ORDERED: ASPIRIN (EC) 81 MG TAB PO SCH (09:00)
[2017-04-08] MEDS: AMLODIPINE 5 MG TAB PO SCH (09:00)
[2017-04-08] MEDS: MEROPENEM 1 GM/100 ML (PMX) 100 ML IV SCH (09:45)
--- NOTE | 2017-04-08 10:58 | RADRPT ---
PROCEDURE: Retroperitoneal US. CLINICAL INDICATION: Hematuria TECHNIQUE: Multiple sonographic images of the kidneys and retroperitoneum were obtained. The imag es were reviewed on a PACS workstation. COMPARISON: 06/25/2014 FINDINGS: The study is limited due to patient body habitus. The kidneys are normal in size, contour, cortical thickness and cortical echogenicity. The right kidney measures 9.4 cm. The left kidney measures 10.4 cm. No kidney stones are visualized. There is no evidence for hydronephrosis. The urinary bladder is decompressed by a Lunsford catheter. RPTAT: AA IMPRESSION: Limited study due to the patient's body habitus. No evidence of hydronephrosis. .Steffen Trimble MD, MD Date Time Electronically viewed and signed by .Steffen Trimble MD, MD on 04/08/2017 10:58 .S/
[2017-04-08 11:05] LABS: LYMPHOCYTES # 2.3 10^3/ul (0.8-2.9); MONOCYTE # 1.1 10^3/ul (0.3-0.9); NEUTROPHIL # 14.2 10^3/ul (1.6-7.5)
--- NOTE | 2017-04-08 16:05 | HP ---
DATE OF ADMISSION: 04/07/2017 REASON FOR ADMISSION: Gross hematuria, acute cystitis, pelvic pain. HISTORY OF PRESENT ILLNESS: The patient is an unfortunate 61-year-old morbidly obese femal e with history of diabetes mellitus on insulin, end-stage renal disease on dialysis 3 times a week o n Friday, Friday and Friday; hypertension, dyslipidemia, left inner thigh wound for the past 6 mo nths, in and out of the hospital because of that, she developed after her varicose vein laser treatm ent. 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 Pawan Mcdaniel. Recently admitted under my care twice at [facility] for infected left mid-thigh wound with severe uncontrolled pain and fevers. Samira dozier's last dialysis was the day of admission. After returning from her dialysis session, she came to the [facility] and was found have blood coming out from her genitourinary tract; initially, it was thought it was vaginal bleed. This was quite significant, so we sent her to [facility] to be evaluated. Ultimately, it was felt that of this is all gross hematuria. Hemoglobi n was 8 and this morning, hemoglobin dropped to 6.9. In addition, white count was elevated at 23,00 0 and urinalysis was remarkably positive. The patient was started on broad-spectrum antibiotics. S he was typed and crossed 1 unit of packed red blood cells which was already given. The patient was admitted to the medical/surgical floor for further care. The patient states that initially she had a lot of pelvic pain which now resolved. The patient has a Lunsford with gross blood coming out. Agai n, last dialysis was yesterday. She was treated with Levaquin and vancomycin at the [facility] fo r the left medial thigh wound. PAST MEDICAL HISTORY: Includes diabetes mellitus, hypertension, end-stage renal disease, morbidly obese state, chronic lower extremity edema, left thigh chronic wound. SURGICAL HISTORY: Right upper extremity AV fistula, left upper extremity tendon repair, left elbow surgery, carpal tunnel bilateral hand, right chest Perm-A-Cath. ALLERGIES: CODEINE. SOCIAL HISTORY: The patient denies tobacco, alcohol or IV drug use. She is single. She has 2 kids currently. Previously resides with her mother. FAMILY HISTORY: Mother is alive; she has breast cancer, under control. Father from respirator y problems. REVIEW OF SYSTEMS: Per HPI. MEDICATIONS: Patient's current medications include the followin. Multivitamin 1 tablet daily. 2. Pro-Stat 30 mL daily. 3. Tylenol p.r.n. 4. Vitamin C 500 mg daily. 5. Zinc sulfate 220 mg daily. 6. Her diet is no added salt, no concentrated sweet renal diet. 7. Accu-Chek q.a.c. and at bedtime. 8. Neurontin 200 mg b.i.d. 9. Heparin 5000 units subq q. 12, which we stopped. 10. Januvia 25 mg daily. 11. Levaquin 250 every 48 hours. 12. Levemir 24 units q.12h. 13. Norvasc 5 mg daily. 14. NovoLog 10 units q.a.c. meals. 15. PhosLo 667 two tabs t.i.d. 16. Hydralazine 50 mg q.4h. p.r.n. Last hemoglobin was around 8.7, documented 04/02/2017. This was at [facility]. PHYSICAL EXAMINATION: VITAL SIGNS: Temperature 98.3, pulse 61, respirations 18, blood pressure 128/59, saturation 98% on 3 liters nasal cannula. GENERAL: The patient is in no acute distress, morbidly obese, pale. CARDIOVASCULAR: S1, S2. LUNGS: Clear bilaterally. ABDOMEN: Soft, morbidly obese. EXTREMITIES: Thigh edema with left medial thigh wound. She has a [place] in place with gross hematur ia. LABORATORY DATA: White count improved to 18. Hemoglobin is low at 6.9, hematocrit 23, platelet cou nt 298, neutrophils 79%, lymphocytes 13%, bands of 2%. Chemistry: Sodium is 129, potassium 4.0, ch loride 94, bicarbonate 29, BUN is 34, creatinine 4.89, glucose 165. Last glucose level of 229 and b efore that was 163. Hemoglobin A1c 7.6, alkaline phosphatase 163, total protein 6.4, albumin 2.8. TSH is 1.1. I did perform an MRCP on admission because of her elevated alkaline phosphatase. There was no acute pathology. UA did show on admission nitrites, positive leukocyte esterase +2, WBCs gr eater than 50, RBC, greater than 200, +4 protein. INR is 1.14. Gram-negative rods seen in the uri ne culture, but less than 10 to the 4th. Chest x-ray on admission shows the following: No evidence of active cardiopulmonary disease, hypoventilatory examination, right internal jugular catheter in place. Pelvis ultrasound shows nondiagnostic examination. Renal ultrasound shows limited study due to the patient's body habitus. No evidence of hydronephrosis. EKG: I currently do not see one. ASSESSMENT AND PLAN: 1. This is a very unfortunate 61-year-old morbidly obese female with history of diabetes m ellitus, end-stage renal disease, hypertension who presented also with chronic now left thigh wound, who presented now with gross hematuria and acute cystitis. 2. Gross hematuria, likely due to acute cystitis. I started the patient on broad spectrum antibiot ic with vancomycin and imipenem. Follow up urine culture results. Will transfuse the patient packe d red blood cells because of the blood loss. We will consult urology for further recommendations. 3. Left thigh wound. Continue wound care. specialist wound care was consulted. Vitamins to be provide d. 4. Diabetes mellitus. Continue Levemir and NovoLog. Titrate medications up, as the patient he is eating all meals. 5. End-stage renal disease. Last dialysis was done yesterday. Next dialysis is planned for tomorr ow. Dr. Mcdaniel was consulted. The patient always with slight hyponatremia. Further recommendatio ns to follow by the tuckpointer cleaner caulker. 6. Anemia. We will transfuse the patient another unit of packed red blood cells. 7. Morbidly obese state. Weight loss is definitely advised. 8. Physical therapy as tolerated. 9. Chronic left thigh pain as she has a wound. Pain control will be provided as needed. 10. The patient will be placed on Protonix. Will hold blood thinners secondary to gross hematuria. We will follow. Dictated By: BAL BERG/VICTORINA Conf#: [id number] DID#: [id number]
[2017-04-08 20:00] VITALS: BP 130/59; RESP 18
[2017-04-08] MEDS: GABAPENTIN 100 MG CAP PO SCH (20:40)
[2017-04-08] MEDS: INSULIN DETEMIR [LEVEMIR] 3ML CART SC SCH (20:42)
--- NOTE | 2017-04-08 22:57 | CONS ---
DATE OF ADMISSION: 04/07/2017 DATE OF CONSULTATION: 04/08/2017 REQUESTING PHYSICIAN: Dr. Leonardo Alvarez Dear Leonardo: Thank you for asking me to see this patient in urological consultation. HISTORY OF PRESENT ILLNESS: As you know, she is a 61-year-old female, morbidly obese, who was admit jonah to the hospital because of initially thought to be vaginal bleeding, however turned to be gross hematuria, and a Lunsford catheter was put in, and the drainage from the bladder is still bloody. Ther efore, a urological consultation was requested. The patient is known to have a history of chronic k idney disease, and she has been on hemodialysis 3 times a week Friday, Friday and Friday, and she said that she still makes urine and she urinates about twice a day and each time about a cup. The urine has been clear, and she has never had any gross hematuria. The patient has also a history of morbid obesity; diabetes mellitus, on insulin; and also hypertension; dyslipidemia; left inner thigh wound. She has had this for the past 6 months, and she did have recent drainage of that wound. PAST MEDICAL HISTORY: Includes diabetes mellitus, hypertension, end-stage renal disease, morbid obe sity, chronic lower extremity edema, left thigh chronic wound. SURGERY: She has a right upper extremity AV fistula, left upper extremity tendon repair, left elbow surgery, carpal tunnel bilateral surgery, right chest Perm-A-Cath and also tubal ligation. ALLERGIES: SHE IS ALLERGIC TO CODEINE. OBSTETRIC HISTORY: She is a 2, para 2, normal deliveries. SOCIAL HISTORY: She never smoked, does not drink alcohol. There is no history of drug abuse. FAMILY HISTORY: Mother is alive. She lives with her, in fact. The mother has breast cancer, and f ather from respiratory problems. MEDICATIONS: That she presently is on include she is on: 1. Meropenem. 2. Gabapentin. 3. Insulin. 4. Amlodipine. 5. Zinc sulfate. 6. Calcium acetate. 7. Protonix. 8. Vancomycin IV. 9. Zofran p.r.n. 10. Tylenol p.r.n. 11. Morphine p.r.n. 12. Colace 100 mg twice a day p.r.n. 13. Milk of magnesia p.r.n. PHYSICAL EXAMINATION: GENERAL: A 61-year-old female. She weighs 122.5 kg. She is 62 inches tall. VITAL SIGNS: The temperature is 98.3, pulse is 61, respiration 18, the blood pressure 128/59. HEAD AND NECK: Unremarkable. ABDOMEN: Very obese. No abdominal mass could be palpated, and there are no scars on her abdomen. She points to the umbilical area as the area where she had tubal ligation done through. PELVIC: No mass and no discharge. GENITOURINARY: She does have an indwelling Lunsford catheter that is draining bloody urine. EXTREMITIES: She does have a dressing over the left thigh area where she has had prior surgeries. LABORATORY DATA: Her CBC shows a white count of 18.0, hemoglobin is 6.9, hematocrit 22.7. BUN is 3 4, creatinine 4.89, sodium 129, potassium 4.0, chloride 94, CO2 is 29. PT is 14.6, INR 1.14. The u rine on admission: 2+ leukocyte esterase, 200 RBCs, more than 50 WBCs, many bacteria. Urine cultur e is growing gram-negative rods. It's less than 10,000 organisms. IMPRESSION: Gross hematuria. The patient may have urinary tract infection. PLAN: This patient is already covered with antibiotic. We also shall make sure that we do send a u rine cytology and also will do a CT scan of the abdomen and pelvis without IV contrast and see if an y renal pathology is diagnosed, especially as ultrasound was not helpful because of her morbid obesi ty. I will follow her urological problem with you. I do thank you for allowing me to help in her care. Dictated By: KENISHA BETANCOURT/VICTORINA Conf#: [id number] DID#: [id number]
[2017-04-09] VITALS (9 sets, daily range): BP systolic 122–155; BP diastolic 58–78; PULSE 72–76; RESP 16–18
[2017-04-09] MEDS: ACCUCHECK AT 2AM (Patients on SS coverage) XX SCH (02:03)
[2017-04-09] MEDS: morphine 2 MG INJ IV PRN ×2 (04:43→11:10)
[2017-04-09] MEDS: PANTOPRAZOLE (EC) 40 MG TAB PO SCH (05:22)
[2017-04-09 05:36] LABS: ADD SCAN DIFF NO
[2017-04-09 05:53] LABS: MAGNESIUM 2.2 mg/dl (1.7-2.5); PHOSPHORUS 4.1 mg/dl (2.5-4.9)
[2017-04-09 05:57] LABS: CALCIUM 8.8 mg/dl (8.4-10.2); CREATININE 5.73 mg/dl (0.44-1.00); POTASSIUM 4.6 mmol/L (3.5-5.1)
[2017-04-09 06:30] LABS: ABNORMAL IP MESSAGE 1; HEMOGLOBIN 8.4 g/dl (12.0-16.0); MEAN CORPUSCULAR HEMOGLOBIN 29.6 pg (29.0-33.0); MEAN CORPUSCULAR HGB CONC 31.1 g/dl (32.0-37.0); MEAN CORPUSCULAR VOLUME 95.1 fl (82.0-101.0); MEAN PLATELET VOLUME 10.5 fl (7.4-10.4); PLATELET COUNT 264 10^3/UL (140-415); RED BLOOD COUNT 2.84 10^6/ul (4.20-5.40); RED CELL DISTRIBUTION WIDTH 16.2 % (11.5-14.5); WHITE BLOOD COUNT 13.5 10^3/ul (4.8-10.8)
[2017-04-09 07:35] LABS: HEMOGLOBIN 6.9 g/dl (12.0-16.0)
--- NOTE | 2017-04-09 07:59 | CONS ---
Date/Time of Note Date/Time of Note DATE: 04/09/17 TIME: 07:54 Assessment/Plan Assessment/Plan Chief Complaint/Hosp Course - ESRD ON HEMODIALYSIS @ [facility] [place] [facility] - ANEMIA - HEMATURIA / BLEEDING - DM - HYPERTENSION - RECENT Hx OF LEG CELLULITIS ( ON ABX ) - HIGH PHOS. - HYPONATREMIA PLAN: Will plan for dialysis today Start EPOGEN Check Iron status Hyponatremia will be corrected by Dialysis ( secondary to volume overload / Dilutional ) Continue with Abx Urology plan noted THANK YOU Bridger MAYER Problems: Consultation Date/Type/Reason Admit Date/Time April 07, 2017 at 21:56 Date of Consultation: April 09, 2017 Type of Consultation: NEPHROLOGY Reason for Consultation ESRD ON HEMODIALYSIS Constitutional: improved Eyes: no complaints ENT: no complaints Respiratory: no complaints Cardiovascular: no complaints Gastrointestinal: no complaints Genitourinary: bleeding Musculoskeletal: no complaints Past Medical History Medical History: congestive heart failure, coronary artery disease, diabetes, high cholesterol, hypertension, renal disease Past Surgical History Past Surgical Hx: other Family History Significant Family History: no pertinent family hx Social History Alcohol Use: none Smoking Status: Never smoker Drug Use: none Exam/Review of Systems Vital Signs Vitals Vital Signs Date Time Temp Pulse Resp B/P Pulse Ox O2 Delivery O2 Flow Rate FiO2 04/09/17 07:30 99.6 73 18 139/62 96 04/08/17 23:16 2.0 04/07/17 22:41 Nasal Cannula Intake and Output 04/08/17 04/08/17 04/09/17 15:00 23:00 07:00 Intake Total 450 ml 350 ml 100 ml Output Total 200 ml Balance 450 ml 350 ml -100 ml Exam Constitutional: alert Psych: no complaints Head: normocephalic Eyes: nl conjunctiva Neck: supple Respiratory: crackles/rales Cardiovascular: edema, systolic murmur Gastrointestinal: soft Results Result Diagram: 04/09/17 0515 04/09/17 0515 Results 24 hrs Laboratory Tests Test 04/08/17 08:33 04/08/17 11:59 04/08/17 17:36 04/08/17 20:37 Bedside Glucose 163 229 H 215 192 Test 04/09/17 01:53 04/09/17 05:15 04/09/17 06:24 Bedside Glucose 168 White Blood Count 13.5 #H Red Blood Count 2.84 #L Hemoglobin 8.4 #L Hematocrit 27.0 L Mean Corpuscular Volume 95.1 Mean Corpuscular Hemoglobin 29.6 Mean Corpuscular Hemoglobin Concent 31.1 L Red Cell Distribution Width 16.2 H Platelet Count 264 Mean Platelet Volume 10.5 H Neutrophils % 68.0 Lymphocytes % 13.3 L Monocytes % 9.4 Eosinophils % 2.4 Basophils % 0.7 Nucleated Red Blood Cells % 0.3 H Neutrophils # 9.2 H Lymphocytes # 1.8 Monocytes # 1.3 H Eosinophils # 0.3 Basophils # 0.1 Nucleated Red Blood Cells # 0.0 Sodium Level 125 L Potassium Level 4.6 Chloride Level 92 L Carbon Dioxide Level 27 Anion Gap 11 Blood Urea Nitrogen 42 H Creatinine 5.73 H Glucose Level 146 Calcium Level 8.8 Phosphorus Level 4.1 Magnesium Level 2.2 Lab Scanned Report BLOOD TRANSFUSION Medications Medications Current Medications Ondansetron HCl (Zofran Inj) 4 mg Q6H PRN IV NAUSEA AND/OR VOMITING Last administered on 04/08/17 05:39; Admin Dose 4 MG; Start 04/07/17 at 22:30 Acetaminophen (Tylenol Tab) 650 mg Q6H PRN PO PAIN LEVEL 1-3 OR FEVER; Start at 22:30 Morphine Sulfate (morphine) 2 mg Q4H PRN IV SEVERE PAIN LEVEL 7-10 Last administered on 04/09/17 04:43; Admin Dose 2 MG; Start 04/07/17 at 22:30 Docusate Sodium (Colace) 100 mg Q12H PRN PO CONSTIPATION; Start 04/07/17 at 22: 30 Magnesium Hydroxide (Milk Of Mag) 30 ml DAILY PRN PO CONSTIPATION; Start at 22:30 Pantoprazole (Protonix Tab) 40 mg DAILY@06 PO Last administered on 04/09/17 05 :22; Admin Dose 40 MG; Start 04/08/17 at 06:00 Amlodipine Besylate (Norvasc) 5 mg DAILY PO ; Start 04/08/17 at 09:00 Ascorbic Acid (Vitamin C) 500 mg DAILY PO Last administered on 04/08/17 08:42 ; Admin Dose 500 MG; Start 04/08/17 at 09:00 Aspirin (Halfprin) 81 mg DAILY PO ; Start 04/08/17 at 09:00; Status Future Hold Zinc Sulfate (Zinc Sulfate) 220 mg DAILY PO Last administered on 04/08/17 08: 42; Admin Dose 220 MG; Start 04/08/17 at 09:00 Miscellaneous Information 1 ea NOTE XX ; Start 04/07/17 at 23:00 Glucose (Glutose) 15 gm Q15M PRN PO DECREASED GLUCOSE; Start 04/07/17 at 23:00 Glucose (Glutose) 22.5 gm Q15M PRN PO DECREASED GLUCOSE; Start 04/07/17 at 23: 00 Dextrose (D50w Syringe) 25 ml Q15M PRN IV DECREASED GLUCOSE; Start 04/07/17 at 23:00 Dextrose (D50w Syringe) 50 ml Q15M PRN IV DECREASED GLUCOSE; Start 04/07/17 at 23:00 Glucagon (Glucagen) 1 mg Q15M PRN IM DECREASED GLUCOSE; Start 04/07/17 at 23:00 Glucose (Glutose) 15 gm Q15M PRN BUCCAL DECREASED GLUCOSE; Start 04/07/17 at 23 :00 Diagnostic Test (Pha) (Accu-Chek) 1 ea 02 XX Last administered on 04/09/17 02: 03; Admin Dose 1 EA; Start 04/08/17 at 02:00 Miscellaneous Information This patient hoffman... PRN PRN XX WOUND CARE; Start 04/08 at 03:30 Meropenem (Merrem 500 Mg/ 100 ml (Pmx)) 100 ml @ 200 mls/hr Q24H IVPB ; Start 04/09/17 at 10:00 Gabapentin (Neurontin) 200 mg BID PO Last administered on 04/08/17 20:40; Admin Dose 200 MG; Start 04/08/17 at 21:00 Insulin Detemir (Levemir) 18 unit BID@08,20 SC Last administered on 04/08/17 20:42; Admin Dose 18 UNIT; Start 04/08/17 at 20:00 ANIBAL ALMANZAR MD April 09, 2017 07:59
--- NOTE | 2017-04-09 08:19 | RADRPT ---
PROCEDURE: CT Abdomen and Pelvis without contrast. CLINICAL INDICATION: Gross hematuria TECHNIQUE: CT scan of the abdomen and pelvis without contrast was performed on a multidetector hig h-resolution CT scanner. The patient was scanned without intravenous contrast. Coronal and sagittal reformatted images were obtained from the axial source images. Images were reviewed on a high-resol [employer] PACS workstation. The total exam CTDI equals 23.61 mGy and the total exam DLP equals 1322.14 m Gy-cm. One or more of the following dose reduction techniques were used: Automated exposure control. Adjustment of the mA and/or kV according to patient size. Use of iterative reconstruction technique. COMPARISON: None FINDINGS: CT abdomen: The lung bases are remarkable for bibasilar atelectasis. The heart size is normal, without pericard ial thickening or effusion. There is hepatomegaly. The spleen is normal in size and homogeneous in d ensity. The stomach is partially collapsed, but is grossly unremarkable. The pancreas as visualize d is normal. The gallbladder is remarkable for sub centimeter calcified gallstones. There is no traci dence for biliary dilatation. The adrenal glands are symmetric and normal. The kidneys are symmetr ically unremarkable as well. There are a few punctate 1-2 mm nonobstructing bilateral renal stones. There is no ureteral stone. Urinary bladder is decompressed with Lunsford catheter in place. The aorta is of normal caliber. Aortic vascular calcifications are present. There is no retroperit marcelo lymphadenopathy. The shanda hepatis region is clear. The bowel and mesentery, as visualized, are equally unremarkable. There is a large fat containing periumbilical hernia. CT pelvis: The small bowel loops situated within the pelvis are unremarkable. The pelvic organs are normal. T he pelvic sidewalls and inguinal regions are clear. The sigmoid colon and rectum are remarkable for sigmoid diverticulosis. No mass, lymphadenopathy, or free fluid is seen. No acute inflammation is seen. The surrounding osseous structures are remarkable for degenerative spondylosis of the spine. No osteolytic or osteoblastic lesion is detected. IMPRESSION: 1. A few punctate 1-2 mm nonobstructing renal stones. No ureteral stone. Urinary bladder is decom pressed with Lunsford catheter in place. 2. Cholelithiasis without evidence of acute cholecystitis. 3. Hepatomegaly. 4. Aortoiliac atherosclerosis. 5. Large fat containing periumbilical hernia. RPTAT: BB .Tiffanie Chisholm MD, MD Date Time Electronically viewed and signed by .Tiffanie Chisholm MD, MD on 04/09/2017 08:19 .O/
[2017-04-09] MEDS: INSULIN ASPART [NOVOLOG] 3 ML PEN SC SCH ×5 (08:20→20:10)
[2017-04-09] MEDS: ZINC SULFATE 220 MG CAP PO SCH (08:21)
[2017-04-09] MEDS: INSULIN DETEMIR [LEVEMIR] 3ML CART SC SCH ×2 (08:21→20:09)
[2017-04-09] MEDS: CALCIUM ACETATE 667 MG CAP PO SCH ×3 (08:22→17:33)
[2017-04-09] MEDS: GABAPENTIN 100 MG CAP PO SCH ×2 (08:22→20:07)
[2017-04-09] MEDS: ASCORBIC ACID 500 MG TAB PO SCH (08:22)
[2017-04-09] MEDS: AMLODIPINE 5 MG TAB PO SCH (08:29)
[2017-04-09 09:56] LABS: BASOPHIL # 0.1 10^3/ul (0.0-0.1); EOSINOPHILS # 0.3 10^3/ul (0.0-0.5); LYMPHOCYTES # 2.6 10^3/ul (0.8-2.9); MONOCYTE # 0.7 10^3/ul (0.3-0.9); MYELOCYTES # 0.4
[2017-04-09] MEDS: MEROPENEM 500 MG/100 ML (PMX) 100 ML IVPB SCH ×2 (10:00→13:58)
[2017-04-09] MEDS ORDERED: MEROPENEM 1 GM/100 ML (PMX) 100 ML IVPB SCH (10:00)
--- NOTE | 2017-04-09 11:08 | PN ---
DATE: 04/09/2017 SUBJECTIVE: Gross hematuria. The patient is on hemodialysis. OBJECTIVE: GENERAL: The patient is comfortable at the present. VITAL SIGNS: Her temperature is 99.6, blood pressure 139/62, pulse 73, respirations 18. ABDOMEN: Obese. There is no abdominal mass palpable. LABORATORY DATA: CBC shows a white count of 13.5, hemoglobin 8.4, hematocrit 27.0. The BUN is 42, creatinine 5.73, sodium 125, potassium 4.6, chloride 92, CO2 of 27. Urine culture is positive for g mimi-negative rods, the sensitivity is pending. The patient does have a Lunsford catheter and the urine today is much clearer than yesterday, but still has blood in it. IMPRESSION: The patient most likely has urinary tract infection causing the hematuria. PLAN: To continue her on meropenem and monitor the color of the urine. Also order urine cytology f or about 3 days, to make sure that there is no bladder tumor. Dictated By: KENISHA BETANCOURT/VICTORINA Conf#: [id number] DID#: [id number]
[2017-04-09] MEDS ORDERED: COLLAGENASE 30 GM TUBE TOP PRN (14:30)
--- NOTE | 2017-04-09 15:18 | PN ---
DATE: 04/09/2017 SUBJECTIVE: Patient seen. The patient is overall feeling better. Case discussed with the wound sp ecialist this morning. The patient's white count is improving. I appreciate urology input. The judith elizabeth is status post CT scan of the abdomen and pelvis. PHYSICAL EXAMINATION: VITAL SIGNS: Continues to have a low grade temperature 99.6, pulse 76, respiration is 20, blood pre ssure 139/62, saturation 96% on 2 liters nasal cannula. GENERAL: The patient is in no acute distress, morbidly obese, pale. CARDIOVASCULAR: S1, S2, regular rate. LUNGS: Clear. ABDOMEN: Soft, nontender. EXTREMITIES: Trace edema of the lower extremity, left heel wound. LABORATORY DATA: White count is improved to 13.5, hemoglobin 8.4, hematocrit 27, platelet count is 264, neutrophils 67%, lymphocytes 19%. Chemistry: Sodium 125, potassium 4.6, chloride 92, bicarbon ate 27, BUN is 42, creatinine 5.73, glucose of 146. Last glucose levels 176 and 170. UA was remark ably positive on admission for UTI. Urine culture did show E. coli sensitive only to cefotaxime and nitrofurantoin, intermediate to tobramycin. Blood cultures negative. MRSA of the nares is negativ e. Renal ultrasound shows limited study due to the patient's body habitus and CAT scan of the abdom en and pelvis shows a few punctate 1 to 2 mm nonobstructing renal stones, no urethral stone, urinary bladder is decompressed with Lunsford catheter in place. There is cholelithiasis without evidence of acute cholecystitis. There is hepatomegaly. There is aortoiliac atherosclerosis and large fat cont aining periumbilical hernia. MEDICATIONS: 1. Vancomycin dose per pharmacy. 2. Epogen 8000 every Friday, Friday and Friday. 3. Santyl daily and p.r.n. 4. Merrem 500 IV q.24 hours. 5. Neurontin 200 t.i.d. 6. Levemir 118 units b.i.d. 7. Norvasc 5 mg daily. 8. Vitamin C 500 mg daily. 9. Zinc sulfate 220 daily. 10. Insulin aspart. 11. NovoLog moderate algorithm. 12. PhosLo 1.3 g t.i.d. meals. 13. Protonix 40 mg daily. 14. Accu-Chek q.a.c and at bedtime. 15. Hypoglycemia protocol. 16. Zofran p.r.n. 17. ____ p.r.n. 18. Morphine p.r.n. 19. Colace p.r.n. ASSESSMENT AND PLAN: This is a 61-year-old morbidly obese female with history of diabetes mellitus, end-stage renal disease and hypertension who presented with chronic left thigh wound. Als o presented with gross hematuria and acute cystitis. Also anemia requiring transfusion. Gross antionette turia likely combination of infectious process and blood thinners. We would like to rule out malign candice and urine cytology was sent and I appreciate urology input. 1. Diabetes mellitus. Glucose levels are in the 100s. Continue titrating insulin up as needed. 2. End-stage renal disease. Dialysis to be done today. I appreciate Dr. Mcdaniel's input. 3. Anemia, status post 2 units of PRBC, continues to have gross hematuria. May need more transfusi on. In the meantime, Epogen was added. 4. Morbidly obese state. Weight loss is advised. 5. Multiple wounds in the left thigh and left heel. Wound care per community service specialist. The patient was seen by Dr. Montero, vascular surgeon. I noted his recommendations and will depend on the patient 's recent admission. 6. We will ask physical therapy to assist the patient. 7. Blood thinners secondary to gross hematuria. 8. Neuropathy: Continue Neurontin 200 b.i.d. 9. Continue vitamins for maximum wound healing. 10. Infectious disease. With the urinary tract infection, continue above antibiotics. His white c ount is improving and clinically the patient is better. We will follow. Dictated By: BAL BERG/VICTORINA Conf#: [id number] DID#: [id number]
[2017-04-09] MEDS: EPOETIN 4000 UNITS/1 ML INJ (ESRD) SC SCH (17:34)
[2017-04-10] MEDS: ACCUCHECK AT 2AM (Patients on SS coverage) XX SCH (02:00)
[2017-04-10] MEDS: morphine 2 MG INJ IV PRN (03:52)
[2017-04-10] MEDS ORDERED: [UNRECOGNIZED DRUG - REMARK] XX ONE (05:00)
[2017-04-10] MEDS: PANTOPRAZOLE (EC) 40 MG TAB PO SCH (05:44)
[2017-04-10 06:15] LABS: ADD SCAN DIFF NO
[2017-04-10 06:33] LABS: ABNORMAL IP MESSAGE 1; BASOPHIL # 0.1 10^3/ul (0.0-0.1); BASOPHILS % 0.4 % (0.0-2.0); EOSINOPHILS # 0.3 10^3/ul (0.0-0.5); EOSINOPHILS % 1.9 % (0.0-7.0); HEMATOCRIT 28.4 % (37.0-47.0); HEMOGLOBIN 8.8 g/dl (12.0-16.0); LYMPHOCYTES # 1.9 10^3/ul (0.8-2.9); LYMPHOCYTES % 13.4 % (15.0-51.0); MEAN CORPUSCULAR HEMOGLOBIN 29.6 pg (29.0-33.0); MEAN CORPUSCULAR VOLUME 95.6 fl (82.0-101.0); MEAN PLATELET VOLUME 9.5 fl (7.4-10.4); MONOCYTE # 1.4 10^3/ul (0.3-0.9); MONOCYTES % 10.2 % (0.0-11.0); NEUTROPHIL # 9.3 10^3/ul (1.6-7.5); NEUTROPHILS % 67.3 % (39.0-77.0); PLATELET COUNT 304 10^3/UL (140-415); RED BLOOD COUNT 2.97 10^6/ul (4.20-5.40); RED CELL DISTRIBUTION WIDTH 15.5 % (11.5-14.5); WHITE BLOOD COUNT 13.9 10^3/ul (4.8-10.8)
[2017-04-10 06:57] LABS: CALCIUM 8.7 mg/dl (8.4-10.2); CREATININE 5.18 mg/dl (0.44-1.00); POTASSIUM 4.4 mmol/L (3.5-5.1)
[2017-04-10 07:21] LABS: MAGNESIUM 2.3 mg/dl (1.7-2.5)
[2017-04-10 07:41] VITALS: BP 155/68; RESP 20
[2017-04-10] MEDS: ASCORBIC ACID 500 MG TAB PO SCH (09:21)
[2017-04-10] MEDS: ZINC SULFATE 220 MG CAP PO SCH (09:21)
[2017-04-10] MEDS: GABAPENTIN 100 MG CAP PO SCH ×2 (09:21→22:01)
[2017-04-10] MEDS: CALCIUM ACETATE 667 MG CAP PO SCH ×3 (09:21→17:18)
[2017-04-10] MEDS: COLLAGENASE 30 GM TUBE TOP SCH (09:21)
[2017-04-10] MEDS: AMLODIPINE 5 MG TAB PO SCH (09:22)
[2017-04-10] MEDS: INSULIN DETEMIR [LEVEMIR] 3ML CART SC SCH ×2 (09:23→22:05)
[2017-04-10] MEDS: INSULIN ASPART [NOVOLOG] 3 ML PEN SC SCH ×4 (09:25→22:05)
[2017-04-10] MEDS: MEROPENEM 500 MG/100 ML (PMX) 100 ML IVPB SCH (09:49)
--- NOTE | 2017-04-10 14:02 | PN ---
DATE: 04/10/2017 SUBJECTIVE: The patient is doing better. Urine is starting to clear, but there is still gross he maturia. The patient also continues to complain of left thigh pain. She does have discolored left t high medial wound status post hemodialysis yesterday. PHYSICAL EXAMINATION: VITAL SIGNS: T-max 99.6 yesterday morning, but since then the T-max was 99.2, that is the current t emperature; with a heart rate of 76, respirations 20, blood pressure 155/60, saturation 95% on 2 lit ers. GENERAL: The patient is morbidly obese, pale. CARDIOVASCULAR: S1, S2 regular. LUNGS: Clear. ABDOMEN: Soft, obese. EXTREMITIES: No clubbing, cyanosis, or edema. Left medial thigh wound has a blackish discoloration , tender to palpation. LABORATORY DATA: White count is 13.9, hemoglobin 8.8, hematocrit 28, platelet count of 304, neutrop hils 67%, lymphocytes 13%. Chemistry: Sodium 125, potassium 4.4, chloride 92, bicarbonate 29, BUN is 35, creatinine 5.18, glucose of 154. Last glucose levels were 200, 168 and 172. Urine cultures reviewed include E. coli sensitive to cefotaxime and nitrofurantoin. MEDICATIONS: 1. Epogen 8000 every Friday, Friday and Friday. 2. Santyl daily. 3. Merrem 500 IV q.24h. 4. Neurontin b.i.d. 5. Levemir 18 b.i.d. 6. Norvasc 5 mg daily. 7. Vitamin C 500 mg daily. 8. Zinc sulfate 220 daily. 9. Insulin aspart per sliding scale. 10. PhosLo 1.3 grams t.i.d. 11. Protonix 40 mg daily. 12. Accu-Chek q.a.c. and at bedtime. 13. Vancomycin dose per pharmacy. 14. Hypoglycemia protocol as directed. ASSESSMENT AND PLAN: This is a 61-year-old morbidly obese female with history of diabetes mellitus, end-stage renal disease, hypertension, chronic left thigh wound, presents with gross hemat uria and was found to have acute cystitis, also on required transfusion secondary to severe gross he maturia. 1. Diabetes mellitus, controlled. 2. Hematuria, likely attributed to cystitis. Continue above antibiotics, may be able to switch to cephalosporins such as Rocephin. Will repeat urine studies. 3. Anemia, status post 2 units of packed red blood cells. Continue Epogen and monitor hemoglobin a nd hematocrit. 4. Morbidly obese state. Weight loss is advised. Physical therapy as tolerated. 5. Left thigh wound and left heel wound. We will consult surgical consultant. Previously seen by the vascular surgeon not too long ago. 6. Neuropathy. Continue Neurontin. 7. Chronic pain, mostly because of her wound. Continue pain control. We will follow. Dictated By: BAL BERG/VICTORINA Conf#: [id number] DID#: [id number]
--- NOTE | 2017-04-10 14:04 | CONS ---
Date/Time of Note Date/Time of Note DATE: 04/10/17 TIME: 14:03 Assessment/Plan Assessment/Plan Chief Complaint/Hosp Course - ESRD ON HEMODIALYSIS @ [facility] [place] [facility] - ANEMIA - HEMATURIA / BLEEDING - DM - HYPERTENSION - RECENT Hx OF LEG CELLULITIS ( ON ABX ) - HIGH PHOS. - HYPONATREMIA PLAN: Had dialysis yesterday Tolerated well Continue with EPOGEN Check Iron status Continue with Abx Urology plan noted Problems: Consultation Date/Type/Reason Admit Date/Time April 07, 2017 at 21:56 Initial Consult Date 04/09/17 Type of Consultation: NEPHROLOGY Reason for Consultation ESRD 24 HR Interval Summary Constitutional: improved, no complaints Exam/Review of Systems Vital Signs Vitals Vital Signs Date Time Temp Pulse Resp B/P Pulse Ox O2 Delivery O2 Flow Rate FiO2 04/10/17 07:41 99.2 76 20 155/68 95 04/09/17 19:37 2.0 04/07/17 22:41 Nasal Cannula Intake and Output 04/09/17 04/09/17 04/10/17 15:00 23:00 07:00 Intake Total 600 ml 600 ml 280 ml Output Total 3500 ml 200 ml 50 ml Balance -2900 ml 400 ml 230 ml Exam Constitutional: alert, oriented Psych: no complaints Respiratory: crackles/rales Cardiovascular: edema, regular rate and rhythm, systolic murmur Gastrointestinal: soft Results Result Diagram: 04/10/17 0520 04/10/17 0520 Results 24 hrs Laboratory Tests Test 04/09/17 17:26 04/09/17 20:02 04/10/17 02:13 04/10/17 05:20 Bedside Glucose 233 H 210 172 White Blood Count 13.9 H Red Blood Count 2.97 L Hemoglobin 8.8 L Hematocrit 28.4 L Mean Corpuscular Volume 95.6 Mean Corpuscular Hemoglobin 29.6 Mean Corpuscular Hemoglobin Concent 31.0 L Red Cell Distribution Width 15.5 H Platelet Count 304 Mean Platelet Volume 9.5 Neutrophils % 67.3 Lymphocytes % 13.4 L Monocytes % 10.2 Eosinophils % 1.9 Basophils % 0.4 Nucleated Red Blood Cells % 0.0 Neutrophils # 9.3 H Lymphocytes # 1.9 Monocytes # 1.4 H Eosinophils # 0.3 Basophils # 0.1 Nucleated Red Blood Cells # 0.0 Sodium Level 125 L Potassium Level 4.4 Chloride Level 92 L Carbon Dioxide Level 29 Anion Gap 8 Blood Urea Nitrogen 35 H Creatinine 5.18 H Glucose Level 154 Calcium Level 8.7 Phosphorus Level 4.0 Magnesium Level 2.3 Random Vancomycin Level 20.2 Test 04/10/17 07:38 04/10/17 11:57 Bedside Glucose 168 200 Medications Medications Current Medications Ondansetron HCl (Zofran Inj) 4 mg Q6H PRN IV NAUSEA AND/OR VOMITING Last administered on 04/08/17 05:39; Admin Dose 4 MG; Start 04/07/17 at 22:30 Acetaminophen (Tylenol Tab) 650 mg Q6H PRN PO PAIN LEVEL 1-3 OR FEVER; Start at 22:30 Morphine Sulfate (morphine) 2 mg Q4H PRN IV SEVERE PAIN LEVEL 7-10 Last administered on 04/10/17 03:52; Admin Dose 2 MG; Start 04/07/17 at 22:30 Docusate Sodium (Colace) 100 mg Q12H PRN PO CONSTIPATION; Start 04/07/17 at 22: 30 Pantoprazole (Protonix Tab) 40 mg DAILY@06 PO Last administered on 04/10/17 05: 44; Admin Dose 40 MG; Start 04/08/17 at 06:00 Amlodipine Besylate (Norvasc) 5 mg DAILY PO Last administered on 04/10/17 09:22 ; Admin Dose 5 MG; Start 04/08/17 at 09:00 Ascorbic Acid (Vitamin C) 500 mg DAILY PO Last administered on 04/10/17 09:21; Admin Dose 500 MG; Start 04/08/17 at 09:00 Aspirin (Halfprin) 81 mg DAILY PO ; Start 04/08/17 at 09:00; Status Future Hold Zinc Sulfate (Zinc Sulfate) 220 mg DAILY PO Last administered on 04/10/17 09:21 ; Admin Dose 220 MG; Start 04/08/17 at 09:00 Miscellaneous Information 1 ea NOTE XX ; Start 04/07/17 at 23:00 Glucose (Glutose) 15 gm Q15M PRN PO DECREASED GLUCOSE; Start 04/07/17 at 23:00 Glucose (Glutose) 22.5 gm Q15M PRN PO DECREASED GLUCOSE; Start 04/07/17 at 23: 00 Dextrose (D50w Syringe) 25 ml Q15M PRN IV DECREASED GLUCOSE; Start 04/07/17 at 23:00 Dextrose (D50w Syringe) 50 ml Q15M PRN IV DECREASED GLUCOSE; Start 04/07/17 at 23:00 Glucagon (Glucagen) 1 mg Q15M PRN IM DECREASED GLUCOSE; Start 04/07/17 at 23:00 Glucose (Glutose) 15 gm Q15M PRN BUCCAL DECREASED GLUCOSE; Start 04/07/17 at 23 :00 Diagnostic Test (Pha) 1 ea 1 ea 02 XX Last administered on 04/10/17 02:00; Admin Dose 1 EA; Start 04/08/17 at 02:00 Meropenem (Merrem 500 Mg/ 100 ml (Pmx)) 100 ml @ 200 mls/hr Q24H IVPB Last administered on 04/10/17 09:49; Admin Dose 200 MLS/HR; Start 04/09/17 at 10:00 Gabapentin (Neurontin) 200 mg BID PO Last administered on 04/10/17 09:21; Admin Dose 200 MG; Start 04/08/17 at 21:00 Insulin Detemir (Levemir) 18 unit BID@08,20 SC Last administered on 04/10/17 09 :23; Admin Dose 18 UNIT; Start 04/08/17 at 20:00 Epoetin Indra (Epogen (Esrd)) 8,000 units MoWeFr@17 SC Last administered on 04/09 17:34; Admin Dose 8,000 UNITS; Start 04/09/17 at 17:00 Collagenase (Santyl) 1 applic DAILY TOP Last administered on 04/10/17 09:21; Admin Dose 1 APPLIC; Start 04/09/17 at 16:00 Collagenase (Santyl) 1 applic PRN PRN TOP WOUND CARE; Start 04/09/17 at 14:30 ANIBAL ALMANZAR MD Apr 10, 2017 14:04
--- NOTE | 2017-04-10 15:24 | PN ---
DATE: 04/10/2017 SUBJECTIVE: Gross hematuria. The patient herself feels better today. She does have an indwelling Lunsford catheter. OBJECTIVE: VITAL SIGNS: Her temperature is 99.2, blood pressure 155/68, respiration is 20 and the pulse is 76. ABDOMEN: Obese and there is no mass palpable or tenderness. LABORATORY DATA: Shows a CBC with a white count of 13.9, hemoglobin 8.8, hematocrit 28.4, platelet count 304,000. BUN is 35, creatinine 5.18. The patient is on hemodialysis. The sodium 125, potass ium 4.4, chloride 92, CO2 of 29. The urine culture did show E. coli that is sensitive to nitrofuran toin and cefotaxime. The patient is on meropenem and that should cover the infection and the hematu janie. The Lunsford catheter is draining blood-tinged urine, but the color is much clearer than it was 2 days ago. IMPRESSION: Gross hematuria, most likely because of the urinary tract infection. PLAN: To continue the intravenous antibiotic. We did order urine cytology on her and that is keiko lewis. Dictated By: KENISHA BETANCOURT/VICTORINA Conf#: [id number] DID#: [id number]
[2017-04-10 19:43] VITALS: BP 136/65; RESP 18
[2017-04-10 21:30] LABS: ADD UMIC YES; UR BILIRUBIN (Dip) 2+ (NEGATIVE); UR BLOOD (Dip) 3+ (NEGATIVE); UR COLOR DK. RED (YELLOW); UR KETONES (Dip) TRACE (NEGATIVE); UR LEUKOCYTE ESTERASE (Dip) 2+ (NEGATIVE); UR NITRITE (Dip) POSITIVE (NEGATIVE); UR TOTAL PROTEIN (Dip) 4+ (NEGATIVE); UR UROBILINOGEN (Dip) 1.0 E.U./dL (0.1-1.0)
[2017-04-10 21:40] LABS: ICTOTEST NEGATIVE (NEGATIVE); UR CLARITY BLOODY (CLEAR)
[2017-04-10 21:41] LABS: UR BACTERIA MANY; UR SQUAMOUS EPITHELIAL CELL MANY; URINE RBCS >200 /HPF (0)
[2017-04-11] VITALS (9 sets, daily range): BP systolic 96–166; BP diastolic 56–88; PULSE 71–80; RESP 17–18
[2017-04-11] MEDS: ACCUCHECK AT 2AM (Patients on SS coverage) XX SCH (02:19)
[2017-04-11] MEDS: PANTOPRAZOLE (EC) 40 MG TAB PO SCH (05:36)
[2017-04-11 07:27] LABS: ADD SCAN DIFF NO
[2017-04-11 07:29] LABS: ABNORMAL IP MESSAGE 1; BASOPHIL # 0.1 10^3/ul (0.0-0.1); BASOPHILS % 0.5 % (0.0-2.0); EOSINOPHILS # 0.2 10^3/ul (0.0-0.5); EOSINOPHILS % 1.7 % (0.0-7.0); HEMATOCRIT 27.1 % (37.0-47.0); HEMOGLOBIN 8.5 g/dl (12.0-16.0); LYMPHOCYTES # 2.3 10^3/ul (0.8-2.9); LYMPHOCYTES % 15.6 % (15.0-51.0); MEAN CORPUSCULAR HEMOGLOBIN 29.8 pg (29.0-33.0); MEAN CORPUSCULAR HGB CONC 31.4 g/dl (32.0-37.0); MEAN CORPUSCULAR VOLUME 95.1 fl (82.0-101.0); MEAN PLATELET VOLUME 9.4 fl (7.4-10.4); MONOCYTE # 1.7 10^3/ul (0.3-0.9); MONOCYTES % 11.4 % (0.0-11.0); NEUTROPHIL # 9.4 10^3/ul (1.6-7.5); NEUTROPHILS % 64.6 % (39.0-77.0); PLATELET COUNT 308 10^3/UL (140-415); RED BLOOD COUNT 2.85 10^6/ul (4.20-5.40); RED CELL DISTRIBUTION WIDTH 15.1 % (11.5-14.5); WHITE BLOOD COUNT 14.5 10^3/ul (4.8-10.8)
[2017-04-11 07:46] LABS: CALCIUM 8.6 mg/dl (8.4-10.2); CREATININE 6.19 mg/dl (0.44-1.00)
[2017-04-11 07:54] LABS: MAGNESIUM 2.4 mg/dl (1.7-2.5); PHOSPHORUS 4.3 mg/dl (2.5-4.9)
[2017-04-11] MEDS: CALCIUM ACETATE 667 MG CAP PO SCH ×3 (08:11→17:29)
[2017-04-11] MEDS: INSULIN DETEMIR [LEVEMIR] 3ML CART SC SCH ×2 (08:13→21:12)
[2017-04-11] MEDS: INSULIN ASPART [NOVOLOG] 3 ML PEN SC SCH ×4 (08:14→21:11)
[2017-04-11] MEDS: GABAPENTIN 100 MG CAP PO SCH ×2 (08:19→21:12)
--- NOTE | 2017-04-11 09:28 | PN ---
DATE: 04/11/2017 SUBJECTIVE: Gross hematuria. The patient is feeling better and the hematuria has cleared. The ferdinand dozier is on hemodialysis and she is due for hemodialysis today. OBJECTIVE: VITAL SIGNS: Her temperature is 98.8, pulse is 73, respirations 18, blood pressure 136/65. ABDOMEN: Very obese. She does have the Lunsford catheter and it is draining clear urine. The urine c ulture did show E. coli and that is sensitive to cefotaxime. The patient has been on meropenem and should be sensitive to it. CBC shows a white count of 14.5, hemoglobin 8.5, hematocrit is 27.1. The BUN is 45, creatinine 6.19 . The patient, again, is going to have dialysis today. The urine cytology that has been done so fa r is negative for malignant cells. IMPRESSION: Urinary tract infection, causing hematuria. PLAN: Continue the antibiotic and if the catheter is not needed any more, it could be removed. Dictated By: KENISHA BETANCOURT/VICTORINA Conf#: [id number] DID#: [id number]
[2017-04-11] MEDS ORDERED: VANCOMYCIN 1.25 GM in SOD CHLORIDE 0.9% 250 ML IVPB SCH (12:00)
[2017-04-11] MEDS: ASCORBIC ACID 500 MG TAB PO SCH (12:27)
[2017-04-11] MEDS: AMLODIPINE 5 MG TAB PO SCH (12:27)
[2017-04-11] MEDS: ZINC SULFATE 220 MG CAP PO SCH (12:28)
[2017-04-11] MEDS: MEROPENEM 500 MG/100 ML (PMX) 100 ML IVPB SCH (12:28)
--- NOTE | 2017-04-11 12:32 | CONS ---
Date/Time of Note Date/Time of Note DATE: 04/11/17 TIME: 12:30 Assessment/Plan Assessment/Plan Chief Complaint/Hosp Course - ESRD ON HEMODIALYSIS @ [facility] – [place] [facility] - ANEMIA - HEMATURIA / BLEEDING - DM - HYPERTENSION - RECENT Hx OF LEG CELLULITIS ( ON ABX ) - HIGH PHOS. - HYPONATREMIA PLAN: Had dialysis yesterday Tolerated well Continue with EPOGEN Check Iron status Continue with Abx Urology plan noted Problems: Consultation Date/Type/Reason Admit Date/Time April 07, 2017 at 21:56 Initial Consult Date 04/09/17 Type of Consultation: NEPHROLOGY Reason for Consultation ESRD on dialysis 24 HR Interval Summary Constitutional: improved, no complaints Exam/Review of Systems Vital Signs Vitals Vital Signs Date Time Temp Pulse Resp B/P Pulse Ox O2 Delivery O2 Flow Rate FiO2 04/11/17 10:30 76 04/11/17 10:30 18 04/11/17 08:12 99.6 117/56 95 04/10/17 19:23 2.0 04/07/17 22:41 Nasal Cannula Intake and Output 04/10/17 04/10/17 04/11/17 15:00 23:00 07:00 Intake Total 100 ml 840 ml 300 ml Balance 100 ml 840 ml 300 ml Exam Constitutional: alert, oriented Respiratory: crackles/rales Cardiovascular: edema, regular rate and rhythm, systolic murmur Gastrointestinal: soft Results Result Diagram: 04/11/17 0504 04/11/17 0504 Results 24 hrs Laboratory Tests Test 04/10/17 17:13 04/10/17 19:30 04/10/17 21:59 04/11/17 02:19 Bedside Glucose 168 254 H 188 Urine Color DK. RED Urine Clarity BLOODY Urine pH 6.5 Urine Specific [place] 1.015 Urine Ketones TRACE H Urine Nitrite POSITIVE H Urine Bilirubin 2+ H Urine Ictotest NEGATIVE Urine Urobilinogen 1.0 E.U./dL Urine Leukocyte Esterase 2+ H Urine Microscopic RBC >200 Urine WBC Clumps MODERATE Urine Microscopic WBC >200 Urine Squamous Epithelial Cells MANY Urine Bacteria MANY Urine Hemoglobin 3+ H Urine Glucose 0.1% H Urine Total Protein 4+ H Test 04/11/17 05:04 04/11/17 08:04 04/11/17 11:56 White Blood Count 14.5 H Red Blood Count 2.85 L Hemoglobin 8.5 L Hematocrit 27.1 L Mean Corpuscular Volume 95.1 Mean Corpuscular Hemoglobin 29.8 Mean Corpuscular Hemoglobin Concent 31.4 L Red Cell Distribution Width 15.1 H Platelet Count 308 Mean Platelet Volume 9.4 Neutrophils % 64.6 Lymphocytes % 15.6 Monocytes % 11.4 H Eosinophils % 1.7 Basophils % 0.5 Nucleated Red Blood Cells % 0.0 Neutrophils # 9.4 H Lymphocytes # 2.3 Monocytes # 1.7 H Eosinophils # 0.2 Basophils # 0.1 Nucleated Red Blood Cells # 0.0 Sodium Level 128 L Potassium Level 5.0 Chloride Level 92 L Carbon Dioxide Level 26 Anion Gap 15 # Blood Urea Nitrogen 45 H Creatinine 6.19 H Glucose Level 145 Calcium Level 8.6 Phosphorus Level 4.3 Magnesium Level 2.4 Bedside Glucose 166 193 Medications Medications Current Medications Ondansetron HCl (Zofran Inj) 4 mg Q6H PRN IV NAUSEA AND/OR VOMITING Last administered on 04/08/17 05:39; Admin Dose 4 MG; Start 04/07/17 at 22:30 Acetaminophen (Tylenol Tab) 650 mg Q6H PRN PO PAIN LEVEL 1-3 OR FEVER; Start at 22:30 Morphine Sulfate (morphine) 2 mg Q4H PRN IV SEVERE PAIN LEVEL 7-10 Last administered on 04/10/17 03:52; Admin Dose 2 MG; Start 04/07/17 at 22:30 Docusate Sodium (Colace) 100 mg Q12H PRN PO CONSTIPATION; Start 04/07/17 at 22: 30 Pantoprazole (Protonix Tab) 40 mg DAILY@06 PO Last administered on 04/11/17 05: 36; Admin Dose 40 MG; Start 04/08/17 at 06:00 Amlodipine Besylate (Norvasc) 5 mg DAILY PO Last administered on 04/10/17 09:22 ; Admin Dose 5 MG; Start 04/08/17 at 09:00 Ascorbic Acid (Vitamin C) 500 mg DAILY PO Last administered on 04/10/17 09:21; Admin Dose 500 MG; Start 04/08/17 at 09:00 Aspirin (Halfprin) 81 mg DAILY PO ; Start 04/08/17 at 09:00; Status Future Hold Zinc Sulfate (Zinc Sulfate) 220 mg DAILY PO Last administered on 04/10/17 09:21 ; Admin Dose 220 MG; Start 04/08/17 at 09:00 Miscellaneous Information 1 ea NOTE XX ; Start 04/07/17 at 23:00 Glucose (Glutose) 15 gm Q15M PRN PO DECREASED GLUCOSE; Start 04/07/17 at 23:00 Glucose (Glutose) 22.5 gm Q15M PRN PO DECREASED GLUCOSE; Start 04/07/17 at 23: 00 Dextrose (D50w Syringe) 25 ml Q15M PRN IV DECREASED GLUCOSE; Start 04/07/17 at 23:00 Dextrose (D50w Syringe) 50 ml Q15M PRN IV DECREASED GLUCOSE; Start 04/07/17 at 23:00 Glucagon (Glucagen) 1 mg Q15M PRN IM DECREASED GLUCOSE; Start 04/07/17 at 23:00 Glucose (Glutose) 15 gm Q15M PRN BUCCAL DECREASED GLUCOSE; Start 04/07/17 at 23 :00 Diagnostic Test (Pha) 1 ea 1 ea 02 XX Last administered on 04/11/17 02:19; Admin Dose 1 EA; Start 04/08/17 at 02:00 Meropenem (Merrem 500 Mg/ 100 ml (Pmx)) 100 ml @ 200 mls/hr Q24H IVPB Last administered on 04/10/17 09:49; Admin Dose 200 MLS/HR; Start 04/09/17 at 10:00 Gabapentin (Neurontin) 200 mg BID PO Last administered on 04/11/17 08:19; Admin Dose 200 MG; Start 04/08/17 at 21:00 Insulin Detemir (Levemir) 18 unit BID@08,20 SC Last administered on 04/11/17 08 :13; Admin Dose 18 UNIT; Start 04/08/17 at 20:00 Epoetin Indra (Epogen (Esrd)) 8,000 units MoWeFr@17 SC Last administered on 04/09 17:34; Admin Dose 8,000 UNITS; Start 04/09/17 at 17:00 Collagenase (Santyl) 1 applic DAILY TOP Last administered on 04/10/17 09:21; Admin Dose 1 APPLIC; Start 04/09/17 at 16:00 Collagenase 1 applic 1 applic PRN PRN TOP WOUND CARE; Start 04/09/17 at 14:30 Vancomycin HCl/ Sodium Chloride (Vancocin/NS) 250 ml @ 83.333 mls/ hr 12 IVPB ; Start 04/11/17 at 12:00; Stop 04/11/17 at 14:00 ANIBAL ALMANZAR MD Apr 11, 2017 12:32
--- NOTE | 2017-04-11 16:00 | CONS ---
Date/Time of Note Date/Time of Note DATE: 04/11/17 TIME: 16:00 Assessment/Plan Assessment/Plan Chief Complaint/Hosp Course Chaparrita Seth is a 61-year-old female with multiple significant comorbidities. 1. 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 -antibiotics, -warm compress, -Nutritional optimization -Vitamin C -Local care -Excisional debridement prn 2. Morbid obesity with BMI of 49. The patient is highly encouraged to optimize her nutrition and exercise to improve her overall health status. If she is not successful by that route, she may seek weight loss surgery. 3. Diabetes. Continue nutrition and medication control and encourage weight loss. 4. Hypertension. Continue nutrition and medication control, encourage weight loss. 5. Anemia without evidence of acute blood loss. Continue monitoring and workup per medical and GI. 6. Leukocytosis, probably secondary to #1 as above. 7. Rheumatoid arthritis. Continue medical optimization. 8. Electrolyte abnormalities with end-stage renal disease on hemodialysis. Continue judicious fluid management and dialysis. Thank you very much for consulting me in this patient's care. Problems: Consultation Date/Type/Reason Admit Date/Time April 07, 2017 at 21:56 Date of Consultation: Apr 11, 2017 Type of Consultation: Gen surgical Reason for Consultation 1. Left mid thigh wound, 6 months status post varicose vein laser treatment by Dr. Velazquez. 2. Morbid obesity with BMI of 49. 3. Hypertension. 4. End-stage renal disease on dialysis. 5. Diabetes. 6. Anemia. 7. Leukocytosis. Referring Provider: BAL MAYRE MD Hx of Present Illness Chaparrita Seth is a 61-year-old female with significant comorbidities who had laser treatment by vascular surgeon, Dr. Velazquez, about 6-9 months ago for varicose vein and since then she has had pain and inflammation. The patient has been in and out of the hospital for treatment and has also been evaluated by vascular. Since there is necrotic tissue at the site I had debrided her left medial thigh at [facility]. She presents with recurrent chronic pain without fevers, chills, nausea, vomiting, chest pain, no shortness of breath. No cough or seizure. No blood per mouth or rectum. No abnormal discharge. Patient has leukocytosis, but she is afebrile with stable vitals. Surgical consult is obtained for further evaluation and treatment. Constitutional: improved, no complaints Eyes: no complaints ENT: no complaints Respiratory: no complaints Cardiovascular: no complaints Gastrointestinal: no complaints Genitourinary: bleeding Musculoskeletal: no complaints Skin: other (Wound, color changes, swelling) Neurologic: No confusion, No syncope Lymphatic: No adenopathy Psychological: anxiety Immunologic: No pruritis, No rhinitis Past Medical History 1. Morbid obesity with BMI of 49. 2. Diabetes. 3. Hypertension. 3. End-stage renal disease on hemodialysis. 4. Varicose veins. 5. Peripheral vascular disease. 6. Atherosclerotic vascular disease. 7. Hyponatremia. 8. Anemia. 9. Leukocytosis. 10. Left lower extremity chronic infection/cellulitis. 11. Left ear hearing loss. 12. Rheumatoid arthritis. 13. Congestive heart failure history Past Surgical History 1. Fistulas. 2. Shoulder surgery. 3. Left lower extremity laser vascular treatment for varicose veins. 4. Excisional debridement of left medial thigh Social History Alcohol Use: none Smoking Status: Never smoker Drug Use: none Exam/Review of Systems Vital Signs Vitals Vital Signs Date Time Temp Pulse Resp B/P Pulse Ox O2 Delivery O2 Flow Rate FiO2 04/11/17 15:47 2.0 04/11/17 10:30 76 04/11/17 10:30 18 04/11/17 08:12 99.6 117/56 95 04/07/17 22:41 Nasal Cannula Intake and Output 04/10/17 04/10/17 04/11/17 15:00 23:00 07:00 Intake Total 100 ml 840 ml 300 ml Balance 100 ml 840 ml 300 ml Exam GENERAL: Morbid obesity, no acute distress. HEENT: Pupils equal and reactive without scleral icterus. Mucous membranes are moist. NECK: Obese, no crepitus, no JVD observable. PULMONARY: Normal respiratory effort. No wheezing. HEART: S1, S2 present. ABDOMEN: Soft, morbidly obese, nontender. No rebound. EXTREMITIES: With some edema. Left inner thigh wound with devascularized tissue VASCULAR: Capillary refill is 2 seconds. NEUROLOGIC: Alert, oriented, moves all 4 extremities grossly Results Result Diagram: 04/11/17 0504 04/11/17 0504 Results 24 hrs Laboratory Tests Test 04/10/17 17:13 04/10/17 19:30 04/10/17 21:59 04/11/17 02:19 Bedside Glucose 168 254 H 188 Urine Color DK. RED Urine Clarity BLOODY Urine pH 6.5 Urine Specific [place] 1.015 Urine Ketones TRACE H Urine Nitrite POSITIVE H Urine Bilirubin 2+ H Urine Ictotest NEGATIVE Urine Urobilinogen 1.0 E.U./dL Urine Leukocyte Esterase 2+ H Urine Microscopic RBC >200 Urine WBC Clumps MODERATE Urine Microscopic WBC >200 Urine Squamous Epithelial Cells MANY Urine Bacteria MANY Urine Hemoglobin 3+ H Urine Glucose 0.1% H Urine Total Protein 4+ H Test 04/11/17 05:04 04/11/17 08:04 04/11/17 11:56 White Blood Count 14.5 H Red Blood Count 2.85 L Hemoglobin 8.5 L Hematocrit 27.1 L Mean Corpuscular Volume 95.1 Mean Corpuscular Hemoglobin 29.8 Mean Corpuscular Hemoglobin Concent 31.4 L Red Cell Distribution Width 15.1 H Platelet Count 308 Mean Platelet Volume 9.4 Neutrophils % 64.6 Lymphocytes % 15.6 Monocytes % 11.4 H Eosinophils % 1.7 Basophils % 0.5 Nucleated Red Blood Cells % 0.0 Neutrophils # 9.4 H Lymphocytes # 2.3 Monocytes # 1.7 H Eosinophils # 0.2 Basophils # 0.1 Nucleated Red Blood Cells # 0.0 Sodium Level 128 L Potassium Level 5.0 Chloride Level 92 L Carbon Dioxide Level 26 Anion Gap 15 # Blood Urea Nitrogen 45 H Creatinine 6.19 H Glucose Level 145 Calcium Level 8.6 Phosphorus Level 4.3 Magnesium Level 2.4 Bedside Glucose 166 193 Medications Medications Current Medications Ondansetron HCl (Zofran Inj) 4 mg Q6H PRN IV NAUSEA AND/OR VOMITING Last administered on 04/08/17 05:39; Admin Dose 4 MG; Start 04/07/17 at 22:30 Acetaminophen (Tylenol Tab) 650 mg Q6H PRN PO PAIN LEVEL 1-3 OR FEVER; Start at 22:30 Morphine Sulfate (morphine) 2 mg Q4H PRN IV SEVERE PAIN LEVEL 7-10 Last administered on 04/10/17 03:52; Admin Dose 2 MG; Start 04/07/17 at 22:30 Docusate Sodium (Colace) 100 mg Q12H PRN PO CONSTIPATION; Start 04/07/17 at 22: 30 Pantoprazole (Protonix Tab) 40 mg DAILY@06 PO Last administered on 04/11/17 05: 36; Admin Dose 40 MG; Start 04/08/17 at 06:00 Amlodipine Besylate (Norvasc) 5 mg DAILY PO Last administered on 04/11/17 12:27 ; Admin Dose 5 MG; Start 04/08/17 at 09:00 Ascorbic Acid (Vitamin C) 500 mg DAILY PO Last administered on 04/11/17 12:27; Admin Dose 500 MG; Start 04/08/17 at 09:00 Aspirin (Halfprin) 81 mg DAILY PO ; Start 04/08/17 at 09:00; Status Future Hold Zinc Sulfate (Zinc Sulfate) 220 mg DAILY PO Last administered on 04/11/17 12:28 ; Admin Dose 220 MG; Start 04/08/17 at 09:00 Miscellaneous Information 1 ea NOTE XX ; Start 04/07/17 at 23:00 Glucose (Glutose) 15 gm Q15M PRN PO DECREASED GLUCOSE; Start 04/07/17 at 23:00 Glucose (Glutose) 22.5 gm Q15M PRN PO DECREASED GLUCOSE; Start 04/07/17 at 23: 00 Dextrose (D50w Syringe) 25 ml Q15M PRN IV DECREASED GLUCOSE; Start 04/07/17 at 23:00 Dextrose (D50w Syringe) 50 ml Q15M PRN IV DECREASED GLUCOSE; Start 04/07/17 at 23:00 Glucagon (Glucagen) 1 mg Q15M PRN IM DECREASED GLUCOSE; Start 04/07/17 at 23:00 Glucose (Glutose) 15 gm Q15M PRN BUCCAL DECREASED GLUCOSE; Start 04/07/17 at 23 :00 Diagnostic Test (Pha) 1 ea 1 ea 02 XX Last administered on 04/11/17 02:19; Admin Dose 1 EA; Start 04/08/17 at 02:00 Meropenem (Merrem 500 Mg/ 100 ml (Pmx)) 100 ml @ 200 mls/hr Q24H IVPB Last administered on 04/11/17 12:28; Admin Dose 200 MLS/HR; Start 04/09/17 at 10:00 Gabapentin (Neurontin) 200 mg BID PO Last administered on 04/11/17 08:19; Admin Dose 200 MG; Start 04/08/17 at 21:00 Insulin Detemir (Levemir) 18 unit BID@08,20 SC Last administered on 04/11/17 08 :13; Admin Dose 18 UNIT; Start 04/08/17 at 20:00 Epoetin Indra (Epogen (Esrd)) 8,000 units MoWeFr@17 SC Last administered on 04/09 17:34; Admin Dose 8,000 UNITS; Start 04/09/17 at 17:00 Collagenase (Santyl) 1 applic DAILY TOP Last administered on 04/10/17 09:21; Admin Dose 1 APPLIC; Start 04/09/17 at 16:00 Collagenase (Santyl) 1 applic PRN PRN TOP WOUND CARE; Start 04/09/17 at 14:30 ALFREDO SANCHEZ MD Apr 11, 2017 16:00 Admin Dose 1 APPLIC; Start 04/09/17 at 16:00 Collagenase (Santyl) 1 applic PRN PRN TOP WOUND CARE; Start 04/09/17 at 14:30 ALFREDO SANCHEZ MD Apr 11, 2017 16:00
[2017-04-11] MEDS: morphine 2 MG INJ IV PRN (16:06)
[2017-04-11] MEDS: COLLAGENASE 30 GM TUBE TOP SCH (16:07)
--- NOTE | 2017-04-11 16:07 | PN ---
DATE: 04/11/2017 SUBJECTIVE: The patient seen. The patient currently with no complaints. Still has gross hematuria in the Lunsford. Unfortunately, repeat UA shows the same and she has greater than 200 RBCs, greater t aguilar 200 WBCs, positive nitrites and positive leukocyte esterase. Repeat cultures so far negative. White count is increasing as well. PHYSICAL EXAMINATION: VITAL SIGNS: Temperature is 98.8, temperature max 99.6, pulse 80, respirations 18, blood pressure 1 17/56, saturation 95%. GENERAL: The patient is in no acute distress, morbidly obese, pale, right eye blindness. CARDIOVASCULAR: S1, S2, regular rate. Distant heart sounds. LUNGS: Clear. ABDOMEN: Soft, obese. EXTREMITIES: No clubbing, cyanosis or edema. She has a left medial thigh wound. LABORATORY DATA: White count is 14.5, hemoglobin 8.5, hematocrit 27, platelet 308, neutrophils 65%, lymphocytes 16%. Chemistry: Sodium 128, potassium 5.0, chloride 92, bicarbonate 26, BUN is 45, cr eatinine 6.19, glucose 145. Last glucose level 193 and 166. MEDICATIONS: Reviewed include: 1. Epogen 8000 every Friday, Friday and Friday. 2. Santyl daily and p.r.n. 3. Merrem 500 IV q.24 hours. 4. Neurontin 200 b.i.d. 5. Levemir 18 units b.i.d. 6. Norvasc 5 mg daily. 7. Vitamin C 500 mg daily. 8. Zinc sulfate 220 daily. 9. Insulin NovoLog per sliding scale. 10. Phos-Lo 1.3 g t.i.d. 11. Protonix 40 mg daily. 12. Accu-Chek before meals and at bedtime. 13. Vancomycin IV dose per pharmacy. 14. Hypoglycemia protocol. 15. Zofran p.r.n. 16. Tylenol p.r.n. 17. Morphine p.r.n. 18. Colace p.r.n. ASSESSMENT AND PLAN: This is a 61-year-old morbidly obese female with history of diabetes mellitus, end-stage renal disease, hypertension, chronic left thigh wound, presented with gross antionette turia and was found to have acute cystitis, also required transfusion secondary to severe gross antionette turia. 1. Diabetes mellitus appears to be better controlled. Continue current regimen of insulin. 2. Gross hematuria, likely from cystitis. We will consult ID to assist with her antibiotic managem ent. May be able to switch to Rocephin and discontinue Merrem based on the cultures and sensitiviti es. Clinically, the patient is feeling better. 3. Anemia, status post 2 units of packed red blood cells. Also on Epogen. Hemoglobin and hematocr it remain stable. 4. Morbidly obese state. Weight loss is definitely advised. 5. Left thigh wound, chronic in nature, status post vascular procedure. Continue wound care. Surg ical consult was requested. 6. Neuropathy. Continue Neurontin. 7. Chronic pain is stable. The pain is better controlled. 8. I appreciate computer network support specialist's input and recommendations. 9. Discontinuation of Lunsford per Dr. Raines. We will follow. Dictated By: BAL BERG/VICTORINA Conf#: [id number] DID#: [id number]
--- NOTE | 2017-04-11 16:31 | CONS ---
DATE OF ADMISSION: 04/07/2017 DATE OF CONSULTATION: 04/11/2017 TYPE OF CONSULTATION: Infectious disease. REASON FOR CONSULTATION: Antibiotic management. HISTORY OF PRESENT ILLNESS: Chaparrita Seth is a 61-year-old female who was admitted with g ross hematuria, acute cystitis and pelvic pain, and is being seen for antibiotic management. The pa clara's problems include: 1. Morbid obesity. 2. Diabetes mellitus, on insulin. 3. End-stage renal disease, on hemodialysis 3 times a week. 4. Hypertension. 5. Dyslipidemia. 6. Left inner thigh wound for the past 6 months. 7. Varicose vein laser treatment. Recently she has been admitted by Dr. Alvarez at [facility] for an infected left mid t high wound, with severe uncontrolled pain and fevers. Her last dialysis was the day of admission. After returning from home from her dialysis session she was found to have a genitourinary tract infe ction. She was sent to the emergency room at [facility]. She had gross hematuria and her hemoglobin dropped from 8 to 6.9. White cell was elevated at 23,000. Urinalysis was positive. The patient was started on broad-spectrum antibiotics. She was typed and crossed. She was admitted to the med/surg floor for further care. She states that initially she had pelvic pain, which has now resolved. She has a Lunsford catheter, with gross hematuria. She had a Lunsford catheter in place on adm ission with gross hematuria. She also has a PermCath. PAST MEDICAL HISTORY: Her past medical problems are essentially as outlined, with chronic lower extr emity edema and a left thigh chronic wound. PAST SURGICAL HISTORY: She has a right upper extremity AV fistula, a left upper extremity tendon re pair, a left elbow surgery, carpal tunnel of bilateral hands, right chest PermCath. ALLERGIES: CODEINE. FAMILY HISTORY: Noncontributory. SOCIAL HISTORY: She does not smoke, drink or abuse drugs. She is single. She has 2 children. She resides with her mother. MEDICATIONS: Per chart. REVIEW OF SYSTEMS: Noncontributory. PHYSICAL EXAMINATION: GENERAL: The patient is a well-developed, well-nourished, morbidly obese female, who is al ert, responsive, in no acute distress. VITAL SIGNS: Stable. She is afebrile. SKIN: Without generalized rash. HEENT: Within normal limits. NECK: Supple. LYMPH NODES: None palpable. CHEST: Decreased breath sounds at the bases. HEART: Without murmur or gallop. ABDOMEN: Soft, obese, nontender, without organosplenomegaly or masses. EXTREMITIES: Without cyanosis, clubbing, or edema. RECTAL AND GENITAL EXAM: Deferred. NEUROLOGIC EVALUATION: No focal neurological abnormalities. HOSPITAL COURSE: On admission her white count was 23.1, H and H of 8 and 26, platelet count 332,000 , then dropped to 18, down to 13.5, 13.9 and now 14.5. BUN and creatinine are 45/6.19. Her urine s hows greater than 200 RBCs per high-power field. Now she has greater than 200 white cells per high- power field, with 2+ leukocyte esterase, and 2+ positive nitrite. Her chest x-ray: No evidence for active cardiopulmonary disease. Right internal jugular catheter in place. Pelvic ultrasound is no ndiagnostic. CT scan of the abdomen and pelvis shows a few punctate 1 to 2-mm nonobstructing renal stones, no ureteral stone. Urinary bladder is decompressed with Lunsford catheter, cholelithiasis with out cholecystitis, hepatomegaly, aortoiliac atherosclerosis, large fat-containing periumbilical leslie ia. Renal ultrasound, limited study, but no evidence of hydronephrosis. CONCLUSION: The patient comes in with hematuria. She also comes in with a urinary tract infection w ith Escherichia coli. Her blood cultures are negative. The E. coli is sensitive to cefotaxime and nitrofurantoin. She is currently on meropenem and was on vancomycin. She is currently afebrile. I am going to switch her over to cefotaxime. I will dictate my findings to Dr. Alvarez, Dr. Raines and Dr. Mcdaniel. Dictated By: LUCAS WAN MD, JD/VICTORINA Conf#: [id number] DID#: [id number]
[2017-04-11] MEDS: CEFTRIAXONE 1 GM/50 ML (PMX) 50 ML IVPB SCH (17:29)
[2017-04-11] MEDS: EPOETIN 4000 UNITS/1 ML INJ (ESRD) SC SCH (17:31)
[2017-04-12] MEDS: ACCUCHECK AT 2AM (Patients on SS coverage) XX SCH (02:00)
[2017-04-12] MEDS: PANTOPRAZOLE (EC) 40 MG TAB PO SCH (05:18)
[2017-04-12 06:07] LABS: ADD SCAN DIFF NO
[2017-04-12 06:11] LABS: ABNORMAL IP MESSAGE 1; BASOPHIL # 0.1 10^3/ul (0.0-0.1); BASOPHILS % 0.5 % (0.0-2.0); EOSINOPHILS # 0.3 10^3/ul (0.0-0.5); EOSINOPHILS % 2.1 % (0.0-7.0); HEMOGLOBIN 8.7 g/dl (12.0-16.0); LYMPHOCYTES # 1.9 10^3/ul (0.8-2.9); LYMPHOCYTES % 14.7 % (15.0-51.0); MEAN CORPUSCULAR HEMOGLOBIN 29.3 pg (29.0-33.0); MEAN CORPUSCULAR HGB CONC 31.1 g/dl (32.0-37.0); MEAN CORPUSCULAR VOLUME 94.3 fl (82.0-101.0); MEAN PLATELET VOLUME 9.6 fl (7.4-10.4); MONOCYTE # 1.6 10^3/ul (0.3-0.9); MONOCYTES % 12.2 % (0.0-11.0); NEUTROPHIL # 8.5 10^3/ul (1.6-7.5); NEUTROPHILS % 64.7 % (39.0-77.0); PLATELET COUNT 303 10^3/UL (140-415); RED BLOOD COUNT 2.97 10^6/ul (4.20-5.40); RED CELL DISTRIBUTION WIDTH 14.9 % (11.5-14.5); WHITE BLOOD COUNT 13.2 10^3/ul (4.8-10.8)
[2017-04-12 06:32] LABS: MAGNESIUM 2.3 mg/dl (1.7-2.5); PHOSPHORUS 4.1 mg/dl (2.5-4.9)
[2017-04-12 07:08] LABS: CALCIUM 8.4 mg/dl (8.4-10.2); CREATININE 5.33 mg/dl (0.44-1.00); POTASSIUM 4.5 mmol/L (3.5-5.1)
[2017-04-12 07:35] VITALS: BP 120/58; RESP 18
[2017-04-12] MEDS: GABAPENTIN 100 MG CAP PO SCH ×2 (07:40→21:02)
[2017-04-12] MEDS: ASCORBIC ACID 500 MG TAB PO SCH (07:41)
[2017-04-12] MEDS: ZINC SULFATE 220 MG CAP PO SCH (07:41)
[2017-04-12] MEDS: CALCIUM ACETATE 667 MG CAP PO SCH ×3 (07:41→17:35)
[2017-04-12] MEDS: morphine 2 MG INJ IV PRN ×2 (07:42→17:42)
[2017-04-12] MEDS: AMLODIPINE 5 MG TAB PO SCH (07:42)
[2017-04-12] MEDS: INSULIN DETEMIR [LEVEMIR] 3ML CART SC SCH ×2 (08:49→21:01)
[2017-04-12] MEDS: INSULIN ASPART [NOVOLOG] 3 ML PEN SC SCH ×4 (08:50→21:02)
[2017-04-12] MEDS: COLLAGENASE 30 GM TUBE TOP SCH (12:28)
--- NOTE | 2017-04-12 15:33 | PN ---
DATE: 04/12/2017 SUBJECTIVE: No acute changes per report. The patient is sleeping, looks comfortable, no fevers. WBC 13.2, platelets 33, no shift, no bands. INDWELLINGS: Right chest Perm-A-Cath, left upper extremity AV fistula, Lunsford catheter. MICROBIOLOGY: Urine culture growing Ruth Ann albicans and E. coli. ANTIMICROBIALS: The patient is on: 1. Fluconazole. 2. Rocephin. PHYSICAL EXAMINATION: GENERAL: This is an obese, well-developed, chronically ill-appearing, elderly woman who is in no distress. HEENT: Head atraumatic, normocephalic. Sclerae anicteric. Buccal mucosa dry. NECK: Supple, trachea midline. CHEST: Rise symmetrical. Breath sounds diminished. HEART: S1, S2. ABDOMEN: Soft. Bowel tones hypoactive. EXTREMITIES: No cyanosis. ASSESSMENT: 1. Systemic inflammatory response syndrome with resolving leukocytosis. 2. Urinary tract infection status post gross hematuria, urology on case, patient is on appropriate antibiotics. 3. Left upper thigh chronic necrotic wound with previous wound cultures have been negative. 4. End-stage renal disease, hemodialysis dependent. 5. Morbid obesity. 6. Diabetes. 7. Anemia. 8. Rheumatoid arthritis. PLAN: The patient remains stable on appropriate antimicrobials. She is being seen by multiple cons ultants. Continue supportive care. Dictated By: ALYX NAVARRO SALESFORCE ADMINISTRATOR for LUCAS MARCELO/VICTORINA Conf#: [id number] DID#: [id number]
--- NOTE | 2017-04-12 15:57 | PN ---
DATE: 04/12/2017 SUBJECTIVE: The patient is seen. Noted Dr. Guevara's recommendations. Repeat urine culture is now s howing Ruth Ann albicans and I will start the patient on Diflucan. She does not really like the food in the hospital; otherwise, no complaints. PHYSICAL EXAMINATION: VITAL SIGNS: Temperature 98.4, pulse 18, blood pressure is 120/58, saturation 96% on 2 liters. GENERAL: The patient is in no acute distress, pale, morbidly obese. CARDIOVASCULAR: S1 and S2, regular rate. LUNGS: Clear. ABDOMEN: Soft, obese. EXTREMITIES: Trace edema, lower extremities. LABORATORY: White count is 13.2, hemoglobin 8.7, hematocrit 28, platelet count 303, neutrophils 65% , lymphocytes 15%. Chemistry: Sodium is 128, potassium 4.5, chloride 94, bicarbonate 27, BUN 38, c reatinine 5.33, glucose of 165. Last glucose levels 189 and 164. Urine culture on 04/10/2017 shows Ruth Ann albicans. Urine has now been cleared. The patient's urine is yellow. MEDICATIONS: Include: 1. Diflucan. I just started her on 100 mg IV daily. 2. Ceftriaxone 1 gram daily. 3. Epogen every Friday, Friday, Friday. 4. Santyl daily and p.r.n. 5. Neurontin 200 b.i.d. 6. Levemir b.i.d. 7. Norvasc 5 mg daily. 8. Vitamin C 500 mg daily. 9. Zinc sulfate 220 daily. 10. Insulin Aspart per sliding scale. 11. PhosLo 1.3 gram t.i.d. 12. Protonix 40 mg daily. 13. Accu-Chek before meals and at bedtime. 14. Hypoglycemia protocol. 15. Tylenol p.r.n. 16. Morphine p.r.n. 17. Colace p.r.n. ASSESSMENT AND PLAN: This is a 61-year-old morbidly obese female with a history of diabetes mellitus, end-stage renal disease, hypertension, chronic left thigh wound, who presented with gross hematuria, likely from acute cystitis. Status post transfusion. 1. Acute cystitis. Continue ceftriaxone. Add Diflucan. Follow up WBC. Urine is clearing. 2. Diabetes mellitus. Well controlled with the current insulin regimen. 3. Anemia. Status post 2 units of PRBC. H and H remains stable. Also on Epogen, per nephrology. 4. End-stage renal disease. Next dialysis to be done on Friday. Follow up electrolytes. 5. Left thigh wound. The patient will need p.r.n. debridements. Dr. Simón Almanza is following. Continue local wound care. 6. Neuropathy. Continue Neurontin. 7. Hypertension. Blood pressure is under control. The patient is overall better. 8. Disposition: Soon will likely need to remove the Lunsford catheter, if okay with Dr. Raines. We w ill follow. Dictated By: BAL BERG/VICTORINA Conf#: [id number] DID#: [id number]
--- NOTE | 2017-04-12 15:58 | PN ---
DATE: 04/12/2017 SUBJECTIVE: Gross hematuria and urinary tract infection. The patient is feeling much better and th e urine has since cleared. OBJECTIVE: VITAL SIGNS: Her temperature is 98.4, blood pressure 120/58, pulse 75, respirations 18. ABDOMEN: Obese but soft. GENITOURINARY: The Lunsford catheter that she has is draining clear urine. LABORATORY DATA: Her CBC shows a white count of 13.2, hemoglobin 8.7, hematocrit 28.0. The BUN is 58, creatinine 5.33. The patient did have dialysis yesterday. The urine culture showing Ruth Ann al bicans and initially on admission she had E. coli. The patient is on fluconazole at the present. S he was on meropenem, but that was discontinued. PLAN: To continue the fluconazole and if the catheter again is not needed, it could be removed. Th e urine cytology is negative. Dictated By: KENISHA BETANCOURT/VICTORINA Conf#: [id number] DID#: [id number]
[2017-04-12] MEDS: FLUCONAZOLE 100 MG/NS (PMX) 50 ML IVPB SCH (16:28)
[2017-04-12] MEDS: CEFTRIAXONE 1 GM/50 ML (PMX) 50 ML IVPB SCH (17:36)
[2017-04-12] MEDS: DOCUSATE SODIUM 100 MG CAP PO PRN (21:02)
[2017-04-12 21:28] VITALS: BP 138/63; RESP 18
--- NOTE | 2017-04-12 23:32 | PN ---
Date/Time of Note Date/Time of Note DATE: 04/12/17 TIME: 23:31 Assessment/Plan Lines/Catheters IV Catheter Type (from Nrs): Saline Lock Lunsford in Place (from Nrs): Yes Assessment/Plan Chief Complaint/Hosp Course Chaparrita Seth is a 61-year-old female with multiple significant comorbidities. 1. 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 -antibiotics, -warm compress, -Nutritional optimization -Vitamin C -Local care -Excisional debridement prn 2. Morbid obesity with BMI of 49. The patient is highly encouraged to optimize her nutrition and exercise to improve her overall health status. If she is not successful by that route, she may seek weight loss surgery. 3. Diabetes. Continue nutrition and medication control and encourage weight loss. 4. Hypertension. Continue nutrition and medication control, encourage weight loss. 5. Anemia without evidence of acute blood loss. Continue monitoring and workup per medical and GI. 6. Leukocytosis, probably secondary to #1 as above. 7. Rheumatoid arthritis. Continue medical optimization. 8. Electrolyte abnormalities with end-stage renal disease on hemodialysis. Continue judicious fluid management and dialysis. Thank you, Problems: Subjective 24 Hr Interval Summary Pain without fevers, chills, nausea, vomiting, chest pain, no shortness of breath. No cough or seizure. No blood per mouth or rectum. No abnormal discharge. Exam/Review of Systems Vital Signs Vitals Vital Signs Date Time Temp Pulse Resp B/P Pulse Ox O2 Delivery O2 Flow Rate FiO2 04/12/17 21:28 98.9 73 18 138/63 100 04/11/17 21:15 2.0 Intake and Output 04/11/17 04/11/17 04/12/17 15:00 23:00 07:00 Intake Total 600 ml 820 ml 320 ml Output Total 2500 ml 50 ml 120 ml Balance -1900 ml 770 ml 200 ml Exam Free Text/Dictation GENERAL: Morbid obesity, no acute distress. HEENT: Pupils equal and reactive without scleral icterus. Mucous membranes are moist. NECK: Obese, no crepitus, no JVD observable. PULMONARY: Normal respiratory effort. No wheezing. HEART: S1, S2 present. ABDOMEN: Soft, morbidly obese, nontender. No rebound. EXTREMITIES: With some edema. Left inner thigh wound with devascularized tissue VASCULAR: Capillary refill is 2 seconds. NEUROLOGIC: Alert, oriented, moves all 4 extremities grossly Results Result Diagram: 04/12/17 0457 04/12/17 0457 ALFREDO SANCHEZ MD Apr 12, 2017 23:31
[2017-04-13] MEDS: ACCUCHECK AT 2AM (Patients on SS coverage) XX SCH (02:00)
[2017-04-13] MEDS: PANTOPRAZOLE (EC) 40 MG TAB PO SCH (05:16)
[2017-04-13 06:04] LABS: ADD SCAN DIFF NO
[2017-04-13 06:14] LABS: BASOPHIL # 0.1 10^3/ul (0.0-0.1); BASOPHILS % 0.5 % (0.0-2.0); EOSINOPHILS # 0.3 10^3/ul (0.0-0.5); EOSINOPHILS % 2.3 % (0.0-7.0); HEMATOCRIT 28.9 % (37.0-47.0); HEMOGLOBIN 9.3 g/dl (12.0-16.0); LYMPHOCYTES # 2.1 10^3/ul (0.8-2.9); LYMPHOCYTES % 15.5 % (15.0-51.0); MEAN CORPUSCULAR HEMOGLOBIN 29.9 pg (29.0-33.0); MEAN CORPUSCULAR HGB CONC 32.2 g/dl (32.0-37.0); MEAN CORPUSCULAR VOLUME 92.9 fl (82.0-101.0); MEAN PLATELET VOLUME 9.5 fl (7.4-10.4); MONOCYTE # 1.4 10^3/ul (0.3-0.9); MONOCYTES % 10.5 % (0.0-11.0); NEUTROPHIL # 9.1 10^3/ul (1.6-7.5); NEUTROPHILS % 66.4 % (39.0-77.0); PLATELET COUNT 330 10^3/UL (140-415); RED BLOOD COUNT 3.11 10^6/ul (4.20-5.40); RED CELL DISTRIBUTION WIDTH 14.7 % (11.5-14.5); WHITE BLOOD COUNT 13.6 10^3/ul (4.8-10.8)
[2017-04-13] MEDS: morphine 2 MG INJ IV PRN ×2 (06:23→10:44)
[2017-04-13] MEDS: ONDANSETRON 4 MG INJ IV PRN (06:23)
[2017-04-13 06:38] LABS: CALCIUM 8.9 mg/dl (8.4-10.2); CREATININE 6.41 mg/dl (0.44-1.00); POTASSIUM 5.1 mmol/L (3.5-5.1)
[2017-04-13 06:45] LABS: MAGNESIUM 2.3 mg/dl (1.7-2.5); PHOSPHORUS 4.7 mg/dl (2.5-4.9)
[2017-04-13 07:10] VITALS: BP 133/63; RESP 18
[2017-04-13] MEDS: ASCORBIC ACID 500 MG TAB PO SCH (08:15)
[2017-04-13] MEDS: ZINC SULFATE 220 MG CAP PO SCH (08:15)
[2017-04-13] MEDS: INSULIN DETEMIR [LEVEMIR] 3ML CART SC SCH ×2 (08:16→20:34)
[2017-04-13] MEDS: INSULIN ASPART [NOVOLOG] 3 ML PEN SC SCH ×5 (08:17→20:32)
[2017-04-13] MEDS: GABAPENTIN 100 MG CAP PO SCH (08:17)
[2017-04-13] MEDS: CALCIUM ACETATE 667 MG CAP PO SCH ×3 (08:17→17:23)
[2017-04-13] MEDS: AMLODIPINE 5 MG TAB PO SCH (08:18)
[2017-04-13] MEDS: COLLAGENASE 30 GM TUBE TOP SCH (11:22)
[2017-04-13] MEDS ORDERED: BISACODYL (EC) 5 MG TAB PO ONE (13:30)
--- NOTE | 2017-04-13 13:40 | PN ---
Date/Time of Note Date/Time of Note DATE: 04/13/17 TIME: 13:39 Assessment/Plan Lines/Catheters IV Catheter Type (from Nrs): Saline Lock [place] in Place (from Nrs): Yes Assessment/Plan Chief Complaint/Hosp Course 1. 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 -antibiotics, -warm compress, -Nutritional optimization -Vitamin C -Local care -Excisional debridement prn 2. Morbid obesity with BMI of 49. The patient is highly encouraged to optimize her nutrition and exercise to improve her overall health status. If she is not successful by that route, she may seek weight loss surgery. 3. Diabetes. Continue nutrition and medication control and encourage weight loss. 4. Hypertension. Continue nutrition and medication control, encourage weight loss. 5. Anemia without evidence of acute blood loss. Continue monitoring and workup per medical and GI. 6. Leukocytosis, probably secondary to #1 as above. 7. Rheumatoid arthritis. Continue medical optimization. 8. Electrolyte abnormalities with end-stage renal disease on hemodialysis. Continue judicious fluid management and dialysis. Thank you, Problems: Subjective 24 Hr Interval Summary Pain without fevers, chills, nausea, vomiting, chest pain, no shortness of breath. No cough or seizure. No blood per mouth or rectum. No abnormal discharge. Exam/Review of Systems Vital Signs Vitals Vital Signs Date Time Temp Pulse Resp B/P Pulse Ox O2 Delivery O2 Flow Rate FiO2 04/13/17 10:54 Nasal Cannula 04/13/17 07:10 99.5 74 18 133/63 97 04/13/17 00:25 2.0 Intake and Output 04/12/17 04/12/17 04/13/17 15:00 23:00 07:00 Intake Total 920 ml 350 ml Output Total 30 ml 500 ml Balance 890 ml -150 ml Exam Free Text/Dictation GENERAL: Morbid obesity, no acute distress. HEENT: Pupils equal and reactive without scleral icterus. Mucous membranes are moist. NECK: Obese, no crepitus, no JVD observable. PULMONARY: Normal respiratory effort. No wheezing. HEART: S1, S2 present. ABDOMEN: Soft, morbidly obese, nontender. No rebound. EXTREMITIES: With some edema. Left inner thigh wound with devascularized tissue VASCULAR: Capillary refill is 2 seconds. NEUROLOGIC: Alert, oriented, moves all 4 extremities grossly Results Result Diagram: 04/13/17 0510 04/13/17 0510 ALFREDO SANCHEZ MD Apr 13, 2017 13:40
--- NOTE | 2017-04-13 15:13 | CONS ---
Date/Time of Note Date/Time of Note DATE: 04/13/17 TIME: 15:12 Assessment/Plan Assessment/Plan Chief Complaint/Hosp Course SUBJECTIVE: No acute changes per report. The patient is sleeping, looks comfortable, no fevers. INDWELLINGS: Right chest Perm-A-Cath, left upper extremity AV fistula, [place] catheter. MICROBIOLOGY: Urine culture growing Ruth Ann albicans and E. coli. ANTIMICROBIALS: 1. Fluconazole. 2. Rocephin. PHYSICAL EXAMINATION: GENERAL: This is an obese, well-developed, chronically ill-appearing, elderly woman who is in no distress. HEENT: Head atraumatic, normocephalic. Sclerae anicteric. Buccal mucosa dry. NECK: Supple, trachea midline. CHEST: Rise symmetrical. Breath sounds diminished. HEART: S1, S2. ABDOMEN: Soft. Bowel tones hypoactive. EXTREMITIES: No cyanosis. ASSESSMENT: 1. Systemic inflammatory response. 2. Urinary tract infection status post gross hematuria, urology on case, patient is on appropriate antibiotics. 3. Left upper thigh chronic necrotic wound with previous wound cultures have been negative. 4. End-stage renal disease, hemodialysis dependent. 5. Morbid obesity. 6. Diabetes. 7. Anemia. 8. Rheumatoid arthritis. PLAN: The patient remains stable, continue abx, local wound care per surgical rec-s, urology rec-s [facility] staff Problems: Consultation Date/Type/Reason Admit Date/Time April 07, 2017 at 21:56 Initial Consult Date 04/11/17 Type of Consultation: id Referring Provider: BAL MAYER MD Exam/Review of Systems Vital Signs Vitals Vital Signs Date Time Temp Pulse Resp B/P Pulse Ox O2 Delivery O2 Flow Rate FiO2 04/13/17 10:54 Nasal Cannula 04/13/17 07:10 99.5 74 18 133/63 97 04/13/17 00:25 2.0 Intake and Output 04/12/17 04/12/17 04/13/17 15:00 23:00 07:00 Intake Total 920 ml 350 ml Output Total 30 ml 500 ml Balance 890 ml -150 ml Results Result Diagram: 04/13/17 0510 04/13/17 0510 Results 24 hrs Laboratory Tests Test 04/12/17 17:30 04/12/17 20:59 04/13/17 05:10 04/13/17 08:11 Bedside Glucose 176 182 167 White Blood Count 13.6 H Red Blood Count 3.11 L Hemoglobin 9.3 L Hematocrit 28.9 L Mean Corpuscular Volume 92.9 Mean Corpuscular Hemoglobin 29.9 Mean Corpuscular Hemoglobin Concent 32.2 Red Cell Distribution Width 14.7 H Platelet Count 330 Mean Platelet Volume 9.5 Neutrophils % 66.4 Lymphocytes % 15.5 Monocytes % 10.5 Eosinophils % 2.3 Basophils % 0.5 Nucleated Red Blood Cells % 0.0 Neutrophils # 9.1 H Lymphocytes # 2.1 Monocytes # 1.4 H Eosinophils # 0.3 Basophils # 0.1 Nucleated Red Blood Cells # 0.0 Sodium Level 128 L Potassium Level 5.1 Chloride Level 93 L Carbon Dioxide Level 26 Anion Gap 14 Blood Urea Nitrogen 48 H Creatinine 6.41 H Glucose Level 140 Calcium Level 8.9 Phosphorus Level 4.7 Magnesium Level 2.3 Test 04/13/17 12:03 Bedside Glucose 189 Medications Medications Current Medications Ondansetron HCl (Zofran Inj) 4 mg Q6H PRN IV NAUSEA AND/OR VOMITING Last administered on 04/13/17 06:23; Admin Dose 4 MG; Start 04/07/17 at 22:30 Acetaminophen (Tylenol Tab) 650 mg Q6H PRN PO PAIN LEVEL 1-3 OR FEVER Last administered on 04/12/17 17:35; Admin Dose 650 MG; Start 04/07/17 at 22:30 Morphine Sulfate (morphine) 2 mg Q4H PRN IV SEVERE PAIN LEVEL 7-10 Last administered on 04/13/17 10:44; Admin Dose 2 MG; Start 04/07/17 at 22:30 Docusate Sodium (Colace) 100 mg Q12H PRN PO CONSTIPATION Last administered on 21:02; Admin Dose 100 MG; Start 04/07/17 at 22:30 Pantoprazole (Protonix Tab) 40 mg DAILY@06 PO Last administered on 04/13/17 05: 16; Admin Dose 40 MG; Start 04/08/17 at 06:00 Amlodipine Besylate (Norvasc) 5 mg DAILY PO Last administered on 04/13/17 08:18 ; Admin Dose 5 MG; Start 04/08/17 at 09:00 Ascorbic Acid (Vitamin C) 500 mg DAILY PO Last administered on 04/13/17 08:15; Admin Dose 500 MG; Start 04/08/17 at 09:00 Aspirin (Halfprin) 81 mg DAILY PO ; Start 04/08/17 at 09:00; Status Future Hold Zinc Sulfate (Zinc Sulfate) 220 mg DAILY PO Last administered on 04/13/17 08:15 ; Admin Dose 220 MG; Start 04/08/17 at 09:00 Miscellaneous Information 1 ea NOTE XX ; Start 04/07/17 at 23:00 Glucose (Glutose) 15 gm Q15M PRN PO DECREASED GLUCOSE; Start 04/07/17 at 23:00 Glucose (Glutose) 22.5 gm Q15M PRN PO DECREASED GLUCOSE; Start 04/07/17 at 23: 00 Dextrose (D50w Syringe) 25 ml Q15M PRN IV DECREASED GLUCOSE; Start 04/07/17 at 23:00 Dextrose (D50w Syringe) 50 ml Q15M PRN IV DECREASED GLUCOSE; Start 04/07/17 at 23:00 Glucagon (Glucagen) 1 mg Q15M PRN IM DECREASED GLUCOSE; Start 04/07/17 at 23:00 Glucose (Glutose) 15 gm Q15M PRN BUCCAL DECREASED GLUCOSE; Start 04/07/17 at 23 :00 Diagnostic Test (Pha) (Accu-Chek) 1 ea 02 XX Last administered on 04/11/17 02: 19; Admin Dose 1 EA; Start 04/08/17 at 02:00 Epoetin Indra (Epogen (Esrd)) 8,000 units MoWeFr@17 SC Last administered on 17:31; Admin Dose 8,000 UNITS; Start 04/09/17 at 17:00 Collagenase (Santyl) 1 applic DAILY TOP Last administered on 04/13/17 11:22; Admin Dose 1 APPLIC; Start 04/09/17 at 16:00 Collagenase 1 applic 1 applic PRN PRN TOP WOUND CARE; Start 04/09/17 at 14:30 Ceftriaxone Sodium 50 ml @ 100 mls/hr Q24H IVPB Last administered on 04/12/17 17:36; Admin Dose 100 MLS/HR; Start 04/11/17 at 17:00 Fluconazole/ Sodium Chloride (Diflucan 100 Mg/ NS (Pmx)) 50 ml @ 50 mls/hr Q24H IVPB Last administered on 6/3/17at 16:28; Admin Dose 50 MLS/HR; Start 04/12/17 at 16:00 Miscellaneous Information (*Rx Drug Level Order Reminder*) VANCOMYCIN RANDOM LEVEL IN AM ONCE ONCE XX ; Start 04/14/17 at 05:00; Stop 04/14/17 at 05:01 Gabapentin (Neurontin) 300 mg TID PO ; Start 04/13/17 at 14:15 Lactulose (Enulose) 20 gm Q6H PRN PO CONSTIPATION; Start 04/13/17 at 13:30 Insulin Detemir (Levemir) 20 unit BID@08,20 SC ; Start 04/13/17 at 20:00 ALYX NAVARRO NP Apr 13, 2017 15:13
[2017-04-13] MEDS: GABAPENTIN 300 MG CAP PO SCH ×2 (15:28→20:33)
[2017-04-13] MEDS: FLUCONAZOLE 100 MG/NS (PMX) 50 ML IVPB SCH (15:29)
[2017-04-13] MEDS: CEFTRIAXONE 1 GM/50 ML (PMX) 50 ML IVPB SCH (17:23)
--- NOTE | 2017-04-13 18:24 | PN ---
DATE: 04/13/2017 SUBJECTIVE: The patient is still complaining of constipation. She said she has very small bowel mo vements today but besides that, she has not had a bowel movement for a few days. The patient also c omplaining of abdominal discomfort likely related to her constipation. She had a low grade te mperature of 99.5 this morning. Noted, Dr. Raines recommendation is [place] can be removed. PHYSICAL EXAMINATION: VITAL SIGNS: Temperature is 99.5, pulse 74, respirations 18, blood pressure 122/62, saturation 97% on 2 liters. GENERAL: The patient is morbidly obese, pale. Right eye blindness. CARDIOVASCULAR: S1 and S2, regular rate. LUNGS: Clear. ABDOMEN: Soft, morbidly obese. No significant tenderness throughout. EXTREMITIES: Trace edema lower extremities. LABORATORY DATA: White count remains slightly high at 13.6, hemoglobin 9.3, hematocrit 29, platelet count 330, neutrophils 66%, lymphocytes 16%. Chemistry: Sodium is 128. Potassium is 5.1, chlorid e 93, bicarb 26. BUN is 48, creatinine 6.41, glucose 189 and 167 the most recent level. MEDICATIONS: Reviewed include: 1. Diflucan IV, dose per pharmacy daily. 2. Rocephin 1 gram q.24 hours. 3. Epogen 8000 Friday, Friday, and Friday. 4. Santyl daily and p.r.n. 5. Neurontin 200 b.i.d. 6. Levemir 18 units b.i.d. 7. Norvasc 5 mg daily. 8. Vitamin C 500 mg daily. 9. Zinc sulfate 220 daily. 10. Insulin aspart per sliding scale. 11. PhosLo grams t.i.d. 12. Protonix 40 mg daily. 13. Accu-Chek q.a.c. and at bedtime. Hypoglycemia protocol. 14. Zofran p.r.n. 15. Morphine p.r.n. 16. Colace p.r.n. ASSESSMENT AND PLAN: This is a 61-year-old morbidly obese female with history of diabetes mellitus, end-stage renal disease, hypertension, chronic left thigh wound, who presented with gross hematuria likely from acute cystitis. 1. Acute cystitis. Continue Rocephin. Continue Diflucan. 2. Diabetes mellitus. Increase Levemir to 20 units q.12 b.i.d. 3. Anemia, status post 2 units of packed red blood cells. This is likely from gross hematuria. Co ntinue Epogen per nephrology. 4. End-stage renal disease. Dialysis planned for tomorrow. 5. Left thigh wound. Continue debridement p.r.n. per Dr. Almanza. Wound care, weight loss. 6. Neuropathy. We will increase Neurontin to 300 t.i.d. This medication actually helps a lot. 7. Hypertension, currently controlled. Observe. 8. Disposition: Soon back to [facility] facility. Urine cytology was negative for malignant cells. We will follow. Dictated By: BAL BERG/VICTORINA Conf#: [id number] DID#: [id number]
[2017-04-13 20:24] VITALS: BP 143/65; RESP 18
[2017-04-13] MEDS: LACTULOSE 30ML CUP PO PRN (20:33)
[2017-04-13] MEDS: PREDNISOLONE ACET 1% 5 ML OPH RIGHT EYE SCH (22:56)
[2017-04-14] VITALS (9 sets, daily range): BP systolic 114–135; BP diastolic 57–79; PULSE 77–80; RESP 18
[2017-04-14] MEDS: ACCUCHECK AT 2AM (Patients on SS coverage) XX SCH (02:00)
[2017-04-14] MEDS: PANTOPRAZOLE (EC) 40 MG TAB PO SCH (05:43)
[2017-04-14 05:59] LABS: ADD SCAN DIFF NO
[2017-04-14 06:05] LABS: BASOPHILS % 0.3 % (0.0-2.0); EOSINOPHILS # 0.4 10^3/ul (0.0-0.5); EOSINOPHILS % 2.7 % (0.0-7.0); HEMATOCRIT 28.1 % (37.0-47.0); HEMOGLOBIN 8.8 g/dl (12.0-16.0); LYMPHOCYTES # 2.2 10^3/ul (0.8-2.9); LYMPHOCYTES % 17.2 % (15.0-51.0); MEAN CORPUSCULAR HEMOGLOBIN 29.3 pg (29.0-33.0); MEAN CORPUSCULAR HGB CONC 31.3 g/dl (32.0-37.0); MEAN CORPUSCULAR VOLUME 93.7 fl (82.0-101.0); MEAN PLATELET VOLUME 9.3 fl (7.4-10.4); MONOCYTE # 1.4 10^3/ul (0.3-0.9); MONOCYTES % 10.7 % (0.0-11.0); NEUTROPHIL # 8.4 10^3/ul (1.6-7.5); NEUTROPHILS % 65.1 % (39.0-77.0); PLATELET COUNT 301 10^3/UL (140-415); RED CELL DISTRIBUTION WIDTH 14.7 % (11.5-14.5); WHITE BLOOD COUNT 12.9 10^3/ul (4.8-10.8)
[2017-04-14 06:37] LABS: CALCIUM 8.7 mg/dl (8.4-10.2); CREATININE 7.08 mg/dl (0.44-1.00); MAGNESIUM 2.6 mg/dl (1.7-2.5); PHOSPHORUS 5.5 mg/dl (2.5-4.9); POTASSIUM 5.4 mmol/L (3.5-5.1)
--- NOTE | 2017-04-14 06:56 | CONS ---
Date/Time of Note Date/Time of Note DATE: 04/13/17 TIME: 06:54 Assessment/Plan Assessment/Plan Additional Assessment/Plan ESRD on dialyssi appears comfortable will plan dialysis friday Consultation Date/Type/Reason Admit Date/Time April 07, 2017 at 21:56 Initial Consult Date 04/11/17 Type of Consultation: id Referring Provider: BAL MAYER MD Exam/Review of Systems Vital Signs Vitals Vital Signs Date Time Temp Pulse Resp B/P Pulse Ox O2 Delivery O2 Flow Rate FiO2 04/14/17 00:37 2.0 04/13/17 21:00 Nasal Cannula 04/13/17 20:24 98.5 77 18 143/65 97 Intake and Output 04/13/17 04/13/17 04/14/17 15:00 23:00 07:00 Intake Total 800 ml 360 ml Output Total 100 ml Balance 700 ml 360 ml Results Result Diagram: 04/13/17 0510 04/14/17 0510 Results 24 hrs Laboratory Tests Test 04/13/17 08:11 04/13/17 12:03 04/13/17 17:21 04/13/17 20:31 Bedside Glucose 167 189 165 175 Test 04/14/17 05:10 Sodium Level 126 L Potassium Level 5.4 H Chloride Level 93 L Carbon Dioxide Level 23 Anion Gap 15 Blood Urea Nitrogen 54 H Creatinine 7.08 H Glucose Level 124 Calcium Level 8.7 Phosphorus Level 5.5 H Magnesium Level 2.6 H Random Vancomycin Level 22.6 Medications Medications Current Medications Ondansetron HCl (Zofran Inj) 4 mg Q6H PRN IV NAUSEA AND/OR VOMITING Last administered on 04/13/17 06:23; Admin Dose 4 MG; Start 04/07/17 at 22:30 Acetaminophen (Tylenol Tab) 650 mg Q6H PRN PO PAIN LEVEL 1-3 OR FEVER Last administered on 04/12/17 17:35; Admin Dose 650 MG; Start 04/07/17 at 22:30 Morphine Sulfate (morphine) 2 mg Q4H PRN IV SEVERE PAIN LEVEL 7-10 Last administered on 04/13/17 10:44; Admin Dose 2 MG; Start 04/07/17 at 22:30 Docusate Sodium (Colace) 100 mg Q12H PRN PO CONSTIPATION Last administered on 21:02; Admin Dose 100 MG; Start 04/07/17 at 22:30 Pantoprazole (Protonix Tab) 40 mg DAILY@06 PO Last administered on 04/14/17 05: 43; Admin Dose 40 MG; Start 04/08/17 at 06:00 Amlodipine Besylate (Norvasc) 5 mg DAILY PO Last administered on 04/13/17 08:18 ; Admin Dose 5 MG; Start 04/08/17 at 09:00 Ascorbic Acid (Vitamin C) 500 mg DAILY PO Last administered on 04/13/17 08:15; Admin Dose 500 MG; Start 04/08/17 at 09:00 Aspirin (Halfprin) 81 mg DAILY PO ; Start 04/08/17 at 09:00; Status Future Hold Zinc Sulfate (Zinc Sulfate) 220 mg DAILY PO Last administered on 04/13/17 08:15 ; Admin Dose 220 MG; Start 04/08/17 at 09:00 Miscellaneous Information 1 ea NOTE XX ; Start 04/07/17 at 23:00 Glucose (Glutose) 15 gm Q15M PRN PO DECREASED GLUCOSE; Start 04/07/17 at 23:00 Glucose (Glutose) 22.5 gm Q15M PRN PO DECREASED GLUCOSE; Start 04/07/17 at 23: 00 Dextrose (D50w Syringe) 25 ml Q15M PRN IV DECREASED GLUCOSE; Start 04/07/17 at 23:00 Dextrose (D50w Syringe) 50 ml Q15M PRN IV DECREASED GLUCOSE; Start 04/07/17 at 23:00 Glucagon (Glucagen) 1 mg Q15M PRN IM DECREASED GLUCOSE; Start 04/07/17 at 23:00 Glucose (Glutose) 15 gm Q15M PRN BUCCAL DECREASED GLUCOSE; Start 04/07/17 at 23 :00 Diagnostic Test (Pha) (Accu-Chek) 1 ea 02 XX Last administered on 04/11/17 02: 19; Admin Dose 1 EA; Start 04/08/17 at 02:00 Epoetin Indra (Epogen (Esrd)) 8,000 units MoWeFr@17 SC Last administered on 17:31; Admin Dose 8,000 UNITS; Start 04/09/17 at 17:00 Collagenase (Santyl) 1 applic DAILY TOP Last administered on 04/13/17 11:22; Admin Dose 1 APPLIC; Start 04/09/17 at 16:00 Collagenase 1 applic 1 applic PRN PRN TOP WOUND CARE; Start 04/09/17 at 14:30 Ceftriaxone Sodium 50 ml @ 100 mls/hr Q24H IVPB Last administered on 04/13/17 17:23; Admin Dose 100 MLS/HR; Start 04/11/17 at 17:00 Fluconazole/ Sodium Chloride (Diflucan 100 Mg/ NS (Pmx)) 50 ml @ 50 mls/hr Q24H IVPB Last administered on 04/13/17 15:29; Admin Dose 50 MLS/HR; Start 04/12/17 at 16:00 Gabapentin (Neurontin) 300 mg TID PO Last administered on 04/13/17 20:33; Admin Dose 300 MG; Start 04/13/17 at 14:15 Lactulose (Enulose) 20 gm Q6H PRN PO CONSTIPATION Last administered on 20:33; Admin Dose 20 GM; Start 04/13/17 at 13:30 Insulin Detemir (Levemir) 20 unit BID@08,20 SC Last administered on 04/13/17 20 :34; Admin Dose 20 UNIT; Start 04/13/17 at 20:00 Prednisolone Acetate (Pred-Forte 1%) 1 drop BID RIGHT EYE Last administered on 04/13/17 22:56; Admin Dose 1 DROP; Start 04/13/17 at 21:30 Miscellaneous Information Patients own medicat... BID@10,16 XX ; Start 04/14/17 at 10:00 DOMINIQUE LUND MD Apr 14, 2017 06:56
[2017-04-14] MEDS: CALCIUM ACETATE 667 MG CAP PO SCH ×3 (07:50→17:12)
[2017-04-14] MEDS: INSULIN ASPART [NOVOLOG] 3 ML PEN SC SCH ×4 (07:52→20:52)
[2017-04-14] MEDS: ASCORBIC ACID 500 MG TAB PO SCH (08:15)
[2017-04-14] MEDS: AMLODIPINE 5 MG TAB PO SCH (08:15)
[2017-04-14] MEDS: GABAPENTIN 300 MG CAP PO SCH ×3 (08:15→20:45)
[2017-04-14] MEDS: PREDNISOLONE ACET 1% 5 ML OPH RIGHT EYE SCH ×2 (08:15→20:45)
[2017-04-14] MEDS: ZINC SULFATE 220 MG CAP PO SCH (08:15)
[2017-04-14] MEDS: COLLAGENASE 30 GM TUBE TOP SCH (08:16)
[2017-04-14] MEDS: INSULIN DETEMIR [LEVEMIR] 3ML CART SC SCH ×2 (08:17→20:52)
[2017-04-14] MEDS: morphine 2 MG INJ IV PRN ×2 (09:58→17:12)
--- NOTE | 2017-04-14 14:24 | CONS ---
Date/Time of Note Date/Time of Note DATE: 04/14/17 TIME: 14:23 Assessment/Plan Assessment/Plan Chief Complaint/Hosp Course SUBJECTIVE: No acute changes per report. C/o LLE pain, looks comfortable, no fevers. INDWELLINGS: Right chest Perm-A-Cath, left upper extremity AV fistula, [place] catheter. MICROBIOLOGY: Urine culture growing Ruth Ann albicans and E. coli. ANTIMICROBIALS: 1. Fluconazole. 2. Rocephin. PHYSICAL EXAMINATION: GENERAL: This is an obese, well-developed, chronically ill-appearing, elderly woman who is in no distress. HEENT: Head atraumatic, normocephalic. Sclerae anicteric. Buccal mucosa dry. NECK: Supple, trachea midline. CHEST: Rise symmetrical. Breath sounds diminished. HEART: S1, S2. ABDOMEN: Soft. Bowel tones hypoactive. EXTREMITIES: No cyanosis. ASSESSMENT: 1. Systemic inflammatory response. 2. Urinary tract infection status post gross hematuria, urology on case, patient is on appropriate antibiotics. 3. Left upper thigh chronic necrotic wound with previous wound cultures have been negative. 4. End-stage renal disease, hemodialysis dependent. 5. Morbid obesity. 6. Diabetes. 7. Anemia. 8. Rheumatoid arthritis. PLAN: The patient remains stable, continue abx, local wound care per surgical rec-s, urology rec-s [facility] staff Problems: Consultation Date/Type/Reason Admit Date/Time April 07, 2017 at 21:56 Initial Consult Date 04/11/17 Type of Consultation: id Referring Provider: BAL MAYER MD Exam/Review of Systems Vital Signs Vitals Vital Signs Date Time Temp Pulse Resp B/P Pulse Ox O2 Delivery O2 Flow Rate FiO2 04/14/17 07:45 98.9 68 18 133/58 95 04/14/17 00:37 2.0 04/13/17 21:00 Nasal Cannula Intake and Output 04/13/17 04/13/17 04/14/17 15:00 23:00 07:00 Intake Total 800 ml 360 ml Output Total 100 ml Balance 700 ml 360 ml Results Result Diagram: 04/14/17 0510 04/14/17 0510 Results 24 hrs Laboratory Tests Test 04/13/17 17:21 04/13/17 20:31 04/14/17 05:10 04/14/17 07:51 Bedside Glucose 165 175 135 White Blood Count 12.9 H Red Blood Count 3.00 L Hemoglobin 8.8 L Hematocrit 28.1 L Mean Corpuscular Volume 93.7 Mean Corpuscular Hemoglobin 29.3 Mean Corpuscular Hemoglobin Concent 31.3 L Red Cell Distribution Width 14.7 H Platelet Count 301 Mean Platelet Volume 9.3 Neutrophils % 65.1 Lymphocytes % 17.2 Monocytes % 10.7 Eosinophils % 2.7 Basophils % 0.3 Nucleated Red Blood Cells % 0.0 Neutrophils # 8.4 H Lymphocytes # 2.2 Monocytes # 1.4 H Eosinophils # 0.4 Basophils # 0.0 Nucleated Red Blood Cells # 0.0 Sodium Level 126 L Potassium Level 5.4 H Chloride Level 93 L Carbon Dioxide Level 23 Anion Gap 15 Blood Urea Nitrogen 54 H Creatinine 7.08 H Glucose Level 124 Calcium Level 8.7 Phosphorus Level 5.5 H Magnesium Level 2.6 H Random Vancomycin Level 22.6 Test 04/14/17 11:59 Bedside Glucose 163 Medications Medications Current Medications Ondansetron HCl (Zofran Inj) 4 mg Q6H PRN IV NAUSEA AND/OR VOMITING Last administered on 04/13/17 06:23; Admin Dose 4 MG; Start 04/07/17 at 22:30 Acetaminophen (Tylenol Tab) 650 mg Q6H PRN PO PAIN LEVEL 1-3 OR FEVER Last administered on 04/12/17 17:35; Admin Dose 650 MG; Start 04/07/17 at 22:30 Morphine Sulfate (morphine) 2 mg Q4H PRN IV SEVERE PAIN LEVEL 7-10 Last administered on 04/14/17 09:58; Admin Dose 2 MG; Start 04/07/17 at 22:30 Docusate Sodium (Colace) 100 mg Q12H PRN PO CONSTIPATION Last administered on 21:02; Admin Dose 100 MG; Start 04/07/17 at 22:30 Pantoprazole (Protonix Tab) 40 mg DAILY@06 PO Last administered on 04/14/17 05: 43; Admin Dose 40 MG; Start 04/08/17 at 06:00 Amlodipine Besylate (Norvasc) 5 mg DAILY PO Last administered on 04/13/17 08:18 ; Admin Dose 5 MG; Start 04/08/17 at 09:00 Ascorbic Acid (Vitamin C) 500 mg DAILY PO Last administered on 04/14/17 08:15; Admin Dose 500 MG; Start 04/08/17 at 09:00 Aspirin (Halfprin) 81 mg DAILY PO ; Start 04/08/17 at 09:00; Status Future Hold Zinc Sulfate (Zinc Sulfate) 220 mg DAILY PO Last administered on 04/14/17 08:15 ; Admin Dose 220 MG; Start 04/08/17 at 09:00 Miscellaneous Information 1 ea NOTE XX ; Start 04/07/17 at 23:00 Glucose (Glutose) 15 gm Q15M PRN PO DECREASED GLUCOSE; Start 04/07/17 at 23:00 Glucose (Glutose) 22.5 gm Q15M PRN PO DECREASED GLUCOSE; Start 04/07/17 at 23: 00 Dextrose (D50w Syringe) 25 ml Q15M PRN IV DECREASED GLUCOSE; Start 04/07/17 at 23:00 Dextrose (D50w Syringe) 50 ml Q15M PRN IV DECREASED GLUCOSE; Start 04/07/17 at 23:00 Glucagon (Glucagen) 1 mg Q15M PRN IM DECREASED GLUCOSE; Start 04/07/17 at 23:00 Glucose (Glutose) 15 gm Q15M PRN BUCCAL DECREASED GLUCOSE; Start 04/07/17 at 23 :00 Diagnostic Test (Pha) (Accu-Chek) 1 ea 02 XX Last administered on 04/11/17 02: 19; Admin Dose 1 EA; Start 04/08/17 at 02:00 Collagenase (Santyl) 1 applic DAILY TOP Last administered on 04/14/17 08:16; Admin Dose 1 APPLIC; Start 04/09/17 at 16:00 Collagenase 1 applic 1 applic PRN PRN TOP WOUND CARE; Start 04/09/17 at 14:30 Ceftriaxone Sodium 50 ml @ 100 mls/hr Q24H IVPB Last administered on 04/13/17 17:23; Admin Dose 100 MLS/HR; Start 04/11/17 at 17:00 Fluconazole/ Sodium Chloride (Diflucan 100 Mg/ NS (Pmx)) 50 ml @ 50 mls/hr Q24H IVPB Last administered on 04/13/17 15:29; Admin Dose 50 MLS/HR; Start 04/12/17 at 16:00 Gabapentin (Neurontin) 300 mg TID PO Last administered on 04/14/17 12:00; Admin Dose 300 MG; Start 04/13/17 at 14:15 Lactulose (Enulose) 20 gm Q6H PRN PO CONSTIPATION Last administered on 20:33; Admin Dose 20 GM; Start 04/13/17 at 13:30 Insulin Detemir (Levemir) 20 unit BID@08,20 SC Last administered on 04/14/17 08 :17; Admin Dose 20 UNIT; Start 04/13/17 at 20:00 Prednisolone Acetate (Pred-Forte 1%) 1 drop BID RIGHT EYE Last administered on 04/14/17 08:15; Admin Dose 1 DROP; Start 04/13/17 at 21:30 Miscellaneous Information Patients own medicat... BID@10,16 XX ; Start 04/14/17 at 10:00 Simethicone (Mylicon) 80 mg Q4H PRN PO GAS PAINS; Start 04/14/17 at 11:09 Epoetin Indra (Epogen (Esrd)) 8,000 units MoWeFr@17 SC ; Start 04/16/17 at 17:00 Epoetin Indra (Epogen (Esrd)) 8,000 units ONCE@17 SC ; Start 04/14/17 at 17:00 ALYX NAVARRO NP Apr 14, 2017 14:24
[2017-04-14] MEDS ORDERED: MAGNESIUM CITRATE 300 ML BTL PO ONE (15:00)
--- NOTE | 2017-04-14 15:11 | CONS ---
Date/Time of Note Date/Time of Note DATE: 04/14/17 TIME: 15:10 Assessment/Plan Assessment/Plan Chief Complaint/Hosp Course - ESRD ON HEMODIALYSIS @ [facility] [place] - ANEMIA - HEMATURIA / BLEEDING - DM - HYPERTENSION - RECENT Hx OF LEG CELLULITIS ( ON ABX ) - HIGH PHOS. - HYPONATREMIA PLAN: Continue with HD as planned Continue with EPOGEN Check Iron status Continue with Abx Urology plan noted Problems: Consultation Date/Type/Reason Admit Date/Time April 07, 2017 at 21:56 Initial Consult Date 04/09/17 Type of Consultation: NEPHROLOGY Reason for Consultation - ESRD on Dialysis Referring Provider: BAL MAYER MD 24 HR Interval Summary Constitutional: improved, no complaints Exam/Review of Systems Vital Signs Vitals Vital Signs Date Time Temp Pulse Resp B/P Pulse Ox O2 Delivery O2 Flow Rate FiO2 04/14/17 07:45 98.9 68 18 133/58 95 04/14/17 00:37 2.0 04/13/17 21:00 Nasal Cannula Intake and Output 04/13/17 04/13/17 04/14/17 15:00 23:00 07:00 Intake Total 800 ml 360 ml Output Total 100 ml Balance 700 ml 360 ml Exam Constitutional: alert, oriented Psych: no complaints Respiratory: crackles/rales Cardiovascular: edema, regular rate and rhythm, systolic murmur Results Result Diagram: 04/14/17 0510 04/14/17 0510 Results 24 hrs Laboratory Tests Test 04/13/17 17:21 04/13/17 20:31 04/14/17 05:10 04/14/17 07:51 Bedside Glucose 165 175 135 White Blood Count 12.9 H Red Blood Count 3.00 L Hemoglobin 8.8 L Hematocrit 28.1 L Mean Corpuscular Volume 93.7 Mean Corpuscular Hemoglobin 29.3 Mean Corpuscular Hemoglobin Concent 31.3 L Red Cell Distribution Width 14.7 H Platelet Count 301 Mean Platelet Volume 9.3 Neutrophils % 65.1 Lymphocytes % 17.2 Monocytes % 10.7 Eosinophils % 2.7 Basophils % 0.3 Nucleated Red Blood Cells % 0.0 Neutrophils # 8.4 H Lymphocytes # 2.2 Monocytes # 1.4 H Eosinophils # 0.4 Basophils # 0.0 Nucleated Red Blood Cells # 0.0 Sodium Level 126 L Potassium Level 5.4 H Chloride Level 93 L Carbon Dioxide Level 23 Anion Gap 15 Blood Urea Nitrogen 54 H Creatinine 7.08 H Glucose Level 124 Calcium Level 8.7 Phosphorus Level 5.5 H Magnesium Level 2.6 H Random Vancomycin Level 22.6 Test 04/14/17 11:59 Bedside Glucose 163 Medications Medications Current Medications Ondansetron HCl (Zofran Inj) 4 mg Q6H PRN IV NAUSEA AND/OR VOMITING Last administered on 04/13/17 06:23; Admin Dose 4 MG; Start 04/07/17 at 22:30 Acetaminophen (Tylenol Tab) 650 mg Q6H PRN PO PAIN LEVEL 1-3 OR FEVER Last administered on 04/12/17 17:35; Admin Dose 650 MG; Start 04/07/17 at 22:30 Morphine Sulfate (morphine) 2 mg Q4H PRN IV SEVERE PAIN LEVEL 7-10 Last administered on 04/14/17 09:58; Admin Dose 2 MG; Start 04/07/17 at 22:30 Docusate Sodium (Colace) 100 mg Q12H PRN PO CONSTIPATION Last administered on 21:02; Admin Dose 100 MG; Start 04/07/17 at 22:30 Pantoprazole (Protonix Tab) 40 mg DAILY@06 PO Last administered on 04/14/17 05: 43; Admin Dose 40 MG; Start 04/08/17 at 06:00 Amlodipine Besylate (Norvasc) 5 mg DAILY PO Last administered on 04/13/17 08:18 ; Admin Dose 5 MG; Start 04/08/17 at 09:00 Ascorbic Acid (Vitamin C) 500 mg DAILY PO Last administered on 04/14/17 08:15; Admin Dose 500 MG; Start 04/08/17 at 09:00 Aspirin (Halfprin) 81 mg DAILY PO ; Start 04/08/17 at 09:00; Status Future Hold Zinc Sulfate (Zinc Sulfate) 220 mg DAILY PO Last administered on 04/14/17 08:15 ; Admin Dose 220 MG; Start 04/08/17 at 09:00 Miscellaneous Information 1 ea NOTE XX ; Start 04/07/17 at 23:00 Glucose (Glutose) 15 gm Q15M PRN PO DECREASED GLUCOSE; Start 04/07/17 at 23:00 Glucose (Glutose) 22.5 gm Q15M PRN PO DECREASED GLUCOSE; Start 04/07/17 at 23: 00 Dextrose (D50w Syringe) 25 ml Q15M PRN IV DECREASED GLUCOSE; Start 04/07/17 at 23:00 Dextrose (D50w Syringe) 50 ml Q15M PRN IV DECREASED GLUCOSE; Start 04/07/17 at 23:00 Glucagon (Glucagen) 1 mg Q15M PRN IM DECREASED GLUCOSE; Start 04/07/17 at 23:00 Glucose (Glutose) 15 gm Q15M PRN BUCCAL DECREASED GLUCOSE; Start 04/07/17 at 23 :00 Diagnostic Test (Pha) (Accu-Chek) 1 ea 02 XX Last administered on 04/11/17 02: 19; Admin Dose 1 EA; Start 04/08/17 at 02:00 Collagenase (Santyl) 1 applic DAILY TOP Last administered on 04/14/17 08:16; Admin Dose 1 APPLIC; Start 04/09/17 at 16:00 Collagenase 1 applic 1 applic PRN PRN TOP WOUND CARE; Start 04/09/17 at 14:30 Ceftriaxone Sodium 50 ml @ 100 mls/hr Q24H IVPB Last administered on 04/13/17 17:23; Admin Dose 100 MLS/HR; Start 04/11/17 at 17:00 Fluconazole/ Sodium Chloride (Diflucan 100 Mg/ NS (Pmx)) 50 ml @ 50 mls/hr Q24H IVPB Last administered on 04/13/17 15:29; Admin Dose 50 MLS/HR; Start 04/12/17 at 16:00 Gabapentin (Neurontin) 300 mg TID PO Last administered on 04/14/17 12:00; Admin Dose 300 MG; Start 04/13/17 at 14:15 Lactulose (Enulose) 20 gm Q6H PRN PO CONSTIPATION Last administered on 20:33; Admin Dose 20 GM; Start 04/13/17 at 13:30 Insulin Detemir (Levemir) 20 unit BID@08,20 SC Last administered on 04/14/17 08 :17; Admin Dose 20 UNIT; Start 04/13/17 at 20:00 Prednisolone Acetate (Pred-Forte 1%) 1 drop BID RIGHT EYE Last administered on 04/14/17 08:15; Admin Dose 1 DROP; Start 04/13/17 at 21:30 Miscellaneous Information Patients own medicat... BID@10,16 XX ; Start 04/14/17 at 10:00 Simethicone (Mylicon) 80 mg Q4H PRN PO GAS PAINS; Start 04/14/17 at 11:09 Epoetin Indra (Epogen (Esrd)) 8,000 units MoWeFr@17 SC ; Start 04/16/17 at 17:00 Epoetin Indra (Epogen (Esrd)) 8,000 units ONCE@17 SC ; Start 04/14/17 at 17:00 Lactobacillus Acidophilus/ Rhamnosus (Culturelle) 1 cap BID PO ; Start 04/14/17 at 15:00 ANIBAL ALMANZAR MD Apr 14, 2017 15:11
[2017-04-14] MEDS ORDERED: EPOETIN 10000 UNITS/1 ML INJ (ESRD) SC SCH (17:00)
[2017-04-14] MEDS: LACTOBACILLUS RHAMNOSUS CAP PO SCH ×2 (17:13→20:45)
[2017-04-14] MEDS: FLUCONAZOLE 100 MG/NS (PMX) 50 ML IVPB SCH (18:41)
[2017-04-14] MEDS: CEFTRIAXONE 1 GM/50 ML (PMX) 50 ML IVPB SCH (20:57)
[2017-04-14] MEDS: LACTULOSE 30ML CUP PO PRN (23:19)
[2017-04-15] MEDS: ACCUCHECK AT 2AM (Patients on SS coverage) XX SCH (02:00)
--- NOTE | 2017-04-15 05:05 | PN ---
Date/Time of Note Date/Time of Note DATE: 04/14/17 Assessment/Plan Lines/Catheters IV Catheter Type (from [facility]): Saline Lock [place] in Place (from [facility]): No Assessment/Plan Chief Complaint/Hosp Course 1. 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 -antibiotics, -warm compress, -Nutritional optimization -Vitamin C -Local care -Excisional debridement prn 2. Morbid obesity with BMI of 49. The patient is highly encouraged to optimize her nutrition and exercise to improve her overall health status. If she is not successful by that route, she may seek weight loss surgery. 3. Diabetes. Continue nutrition and medication control and encourage weight loss. 4. Hypertension. Continue nutrition and medication control, encourage weight loss. 5. Anemia without evidence of acute blood loss. Continue monitoring and workup per medical and GI. 6. Leukocytosis, probably secondary to #1 as above. 7. Rheumatoid arthritis. Continue medical optimization. 8. Electrolyte abnormalities with end-stage renal disease on hemodialysis. Continue judicious fluid management and dialysis. Thank you, Late entry 04/14 Problems: Subjective 24 Hr Interval Summary Pain without fevers, chills, nausea, vomiting, chest pain, no shortness of breath. No cough or seizure. No blood per mouth or rectum. No abnormal discharge. Exam/Review of Systems Vital Signs Vitals Vital Signs Date Time Temp Pulse Resp B/P Pulse Ox O2 Delivery O2 Flow Rate FiO2 04/15/17 00:30 2.0 04/14/17 20:24 98.1 76 18 135/63 99 04/13/17 21:00 Nasal Cannula Intake and Output 04/14/17 04/14/17 04/15/17 15:00 23:00 07:00 Intake Total 1340 ml Output Total 3500 ml Balance -2160 ml Exam Free Text/Dictation GENERAL: Morbid obesity, no acute distress. HEENT: Pupils equal and reactive without scleral icterus. Mucous membranes are moist. NECK: Obese, no crepitus, no JVD observable. PULMONARY: Normal respiratory effort. No wheezing. HEART: S1, S2 present. ABDOMEN: Soft, morbidly obese, nontender. No rebound. EXTREMITIES: With some edema. Left inner thigh wound with devascularized tissue VASCULAR: Capillary refill is 2 seconds. NEUROLOGIC: Alert, oriented, moves all 4 extremities grossly Results Result Diagram: 04/14/17 0510 04/14/17 0510 ALFREDO SANCHEZ MD Apr 15, 2017 05:05
[2017-04-15] MEDS: PANTOPRAZOLE (EC) 40 MG TAB PO SCH (05:52)
[2017-04-15] MEDS: DOCUSATE SODIUM 100 MG CAP PO PRN (05:52)
[2017-04-15] MEDS ORDERED: LIDOCAINE 1%/EPI 30 ML INJ INJ ONE (06:00)
[2017-04-15] MEDS ORDERED: SILVER NITRATE SWAB TOP ONE (06:00)
[2017-04-15 06:06] LABS: ADD SCAN DIFF NO
[2017-04-15 06:14] LABS: BASOPHIL # 0.1 10^3/ul (0.0-0.1); BASOPHILS % 0.4 % (0.0-2.0); EOSINOPHILS # 0.1 10^3/ul (0.0-0.5); EOSINOPHILS % 0.9 % (0.0-7.0); HEMATOCRIT 29.1 % (37.0-47.0); LYMPHOCYTES # 1.6 10^3/ul (0.8-2.9); LYMPHOCYTES % 11.5 % (15.0-51.0); MEAN CORPUSCULAR HEMOGLOBIN 29.1 pg (29.0-33.0); MEAN CORPUSCULAR HGB CONC 30.9 g/dl (32.0-37.0); MEAN CORPUSCULAR VOLUME 94.2 fl (82.0-101.0); MEAN PLATELET VOLUME 9.4 fl (7.4-10.4); MONOCYTE # 1.5 10^3/ul (0.3-0.9); MONOCYTES % 10.5 % (0.0-11.0); NEUTROPHIL # 10.3 10^3/ul (1.6-7.5); NEUTROPHILS % 73.5 % (39.0-77.0); NUCLEATED RED BLOOD CELLS% 0.1 /100WBC (0.0-0.0); PLATELET COUNT 341 10^3/UL (140-415); RED BLOOD COUNT 3.09 10^6/ul (4.20-5.40); RED CELL DISTRIBUTION WIDTH 14.8 % (11.5-14.5)
[2017-04-15 06:48] LABS: CALCIUM 8.6 mg/dl (8.4-10.2); CREATININE 4.7 mg/dl (0.44-1.00); POTASSIUM 4.1 mmol/L (3.5-5.1)
[2017-04-15 06:52] LABS: MAGNESIUM 2.5 mg/dl (1.7-2.5); PHOSPHORUS 4.6 mg/dl (2.5-4.9)
--- NOTE | 2017-04-15 07:16 | PN ---
DATE: 04/14/2017 SUBJECTIVE: Patient is complaining of abdominal discomfort, did not have any bowel movements. She i s complaining of gas pain. PHYSICAL EXAMINATION: VITAL SIGNS: Temperature 98.9, T-max 99.5 yesterday morning. Heart rate 68, respirations 18, blood pressure , saturation 95% on 2 liters. GENERAL: The patient is in no acute distress. HEENT: Normocephalic, atraumatic. The patient is morbidly obese. CARDIOVASCULAR: S1 and S2, regular rate. LUNGS: Clear. ABDOMEN: Soft, nontender. Left thigh wound. EXTREMITIES: Trace edema lower extremities. LABORATORY DATA: White count is 12.9, hemoglobin 8.8, hematocrit 28, platelet count 301, neutrophil s 65%, lymphocytes 17%. Chemistry: Sodium 126, potassium 5.4, chloride 93, bicarbonate 23, BUN is 54, creatinine 7.08, glucose 124. Last glucose levels 163 and 135. Urine culture recently shows Ca ndida albicans. MEDICATIONS: Reviewed and include: 1. Epogen 8000 every Friday, Friday and Friday. 2. Simethicone p.r.n. 3. Pred Forte eye drops b.i.d. 4. Levemir 20 units b.i.d. 5. Neurontin 300 t.i.d. 6. Lactulose p.r.n. 7. Diflucan 100 IV daily. 8. Rocephin 1 gram daily. 9. Santyl daily and p.r.n. 10. Norvasc 5 mg daily. 11. Vitamin C 500 mg daily. 12. Zinc sulfate 220 daily. 13. Insulin aspart q.a.c. and at bedtime. 14. PhosLo 1.3 grams t.i.d. 15. Protonix 40 mg daily. 16. Accu-Chek q.a.c. and at bedtime. 17. Hypoglycemia protocol. 18. Tylenol. 19. Morphine p.r.n. 20. Colace p.r.n. ASSESSMENT AND PLAN: This is a 61-year-old morbidly obese female with history of diabetes mellitus, end-stage renal disease, hypertension, chronic left thigh wound, who presented with gross hematuria likely from acute cystitis. 1. Acute cystitis, on Rocephin and Diflucan. Urine is now clear. [place] was removed. 2. Diabetes mellitus. Continue Levemir 20 units q.12. 3. Anemia, status post 2 units of packed red blood cells, secondary likely to hemorrhagic cystitis. 4. End-stage renal disease. Dialysis for today. 5. Left thigh wound, await surgical recommendation as patient may benefit from debridement prior to discharge. 6. Neuropathy. Continue Neurontin. 7. Hypertension, controlled. 8. Constipation and abdominal pain. Will prescribe her magnesium citrate and continue current medi cations for constipation. Also, simethicone will be prescribed for gas pain. We will follow. Physical therapy was requested. DISPOSITION: Soon back to the alf facility. Dictated By: BAL BERG/VICTORINA Conf#: [id number] DID#: [id number]
[2017-04-15] MEDS: INSULIN ASPART [NOVOLOG] 3 ML PEN SC SCH ×4 (07:58→21:00)
[2017-04-15] MEDS: morphine 2 MG INJ IV PRN ×2 (08:13→20:00)
[2017-04-15] MEDS: PREDNISOLONE ACET 1% 5 ML OPH RIGHT EYE SCH ×2 (08:13→20:57)
[2017-04-15] MEDS: INSULIN DETEMIR [LEVEMIR] 3ML CART SC SCH ×2 (08:14→20:59)
[2017-04-15] MEDS: LACTOBACILLUS RHAMNOSUS CAP PO SCH ×2 (08:14→20:57)
[2017-04-15] MEDS: ZINC SULFATE 220 MG CAP PO SCH (08:15)
[2017-04-15] MEDS: GABAPENTIN 300 MG CAP PO SCH ×3 (08:15→19:55)
[2017-04-15] MEDS: CALCIUM ACETATE 667 MG CAP PO SCH ×3 (08:15→17:25)
[2017-04-15] MEDS: ASCORBIC ACID 500 MG TAB PO SCH (08:15)
[2017-04-15] MEDS: COLLAGENASE 30 GM TUBE TOP SCH (08:16)
[2017-04-15 08:19] VITALS: BP 148/56; PULSE 70; RESP 18
[2017-04-15] MEDS: AMLODIPINE 5 MG TAB PO SCH (08:19)
[2017-04-15] MEDS ORDERED: MAGNESIUM CITRATE 300 ML BTL PO ONE (10:30)
[2017-04-15] MEDS ORDERED: MINERAL OIL 133 ML ENEMA PR ONE ×2 (10:30→18:00)
--- NOTE | 2017-04-15 14:37 | CONS ---
Date/Time of Note Date/Time of Note DATE: 04/15/17 TIME: 14:36 Assessment/Plan Assessment/Plan Chief Complaint/Hosp Course SUBJECTIVE: No acute changes per report. INDWELLINGS: Right chest Perm-A-Cath, left upper extremity AV fistula MICROBIOLOGY: Urine culture grew Ruth Ann albicans and E. coli. ANTIMICROBIALS: 1. Fluconazole. 2. Rocephin. PHYSICAL EXAMINATION: GENERAL: This is an obese, well-developed, chronically ill-appearing, elderly woman who is in no distress. HEENT: Head atraumatic, normocephalic. Sclerae anicteric. Buccal mucosa dry. NECK: Supple, trachea midline. CHEST: Rise symmetrical. Breath sounds diminished. HEART: S1, S2. ABDOMEN: Soft. Bowel tones hypoactive. EXTREMITIES: No cyanosis. ASSESSMENT: 1. Systemic inflammatory response. 2. Urinary tract infection status post gross hematuria, urology on case, patient is on appropriate antibiotics. 3. Left upper thigh chronic necrotic wound with previous wound cultures have been negative. 4. End-stage renal disease, hemodialysis dependent. 5. Morbid obesity. 6. Diabetes. 7. Anemia. 8. Rheumatoid arthritis. PLAN: The patient remains stable, wbc increased ?retention, s/p [place] dc'd, continue abx, local wound care per surgical rec-s, monitor [facility] staff Problems: Consultation Date/Type/Reason Admit Date/Time April 07, 2017 at 21:56 Initial Consult Date 04/11/17 Type of Consultation: id Referring Provider: BAL MAYER MD Exam/Review of Systems Vital Signs Vitals Vital Signs Date Time Temp Pulse Resp B/P Pulse Ox O2 Delivery O2 Flow Rate FiO2 04/15/17 08:19 98.0 70 18 148/56 100 Room Air 04/15/17 00:30 2.0 Intake and Output 04/14/17 04/14/17 04/15/17 15:00 23:00 07:00 Intake Total 1340 ml 240 ml Output Total 3500 ml Balance -2160 ml 240 ml Results Result Diagram: 04/15/17 0537 04/15/17 0537 Results 24 hrs Laboratory Tests Test 04/14/17 17:01 04/14/17 18:46 04/14/17 20:50 04/15/17 05:37 Bedside Glucose 154 156 150 White Blood Count 14.0 H Red Blood Count 3.09 L Hemoglobin 9.0 L Hematocrit 29.1 L Mean Corpuscular Volume 94.2 Mean Corpuscular Hemoglobin 29.1 Mean Corpuscular Hemoglobin Concent 30.9 L Red Cell Distribution Width 14.8 H Platelet Count 341 Mean Platelet Volume 9.4 Neutrophils % 73.5 Lymphocytes % 11.5 L Monocytes % 10.5 Eosinophils % 0.9 Basophils % 0.4 Nucleated Red Blood Cells % 0.1 H Neutrophils # 10.3 H Lymphocytes # 1.6 Monocytes # 1.5 H Eosinophils # 0.1 Basophils # 0.1 Nucleated Red Blood Cells # 0.0 Sodium Level 138 Potassium Level 4.1 Chloride Level 102 Carbon Dioxide Level 27 Anion Gap 13 Blood Urea Nitrogen 32 #H Creatinine 4.70 #H Glucose Level 152 Calcium Level 8.6 Phosphorus Level 4.6 Magnesium Level 2.5 Test 04/15/17 07:54 04/15/17 12:15 Bedside Glucose 130 150 Medications Medications Current Medications Ondansetron HCl (Zofran Inj) 4 mg Q6H PRN IV NAUSEA AND/OR VOMITING Last administered on 04/13/17 06:23; Admin Dose 4 MG; Start 04/07/17 at 22:30 Acetaminophen (Tylenol Tab) 650 mg Q6H PRN PO PAIN LEVEL 1-3 OR FEVER Last administered on 04/12/17 17:35; Admin Dose 650 MG; Start 04/07/17 at 22:30 Morphine Sulfate (morphine) 2 mg Q4H PRN IV SEVERE PAIN LEVEL 7-10 Last administered on 04/15/17 08:13; Admin Dose 2 MG; Start 04/07/17 at 22:30 Docusate Sodium (Colace) 100 mg Q12H PRN PO CONSTIPATION Last administered on 05:52; Admin Dose 100 MG; Start 04/07/17 at 22:30 Pantoprazole (Protonix Tab) 40 mg DAILY@06 PO Last administered on 04/15/17 05: 52; Admin Dose 40 MG; Start 04/08/17 at 06:00 Amlodipine Besylate (Norvasc) 5 mg DAILY PO Last administered on 04/15/17 08:19 ; Admin Dose 5 MG; Start 04/08/17 at 09:00 Ascorbic Acid (Vitamin C) 500 mg DAILY PO Last administered on 04/15/17 08:15; Admin Dose 500 MG; Start 04/08/17 at 09:00 Aspirin (Halfprin) 81 mg DAILY PO ; Start 04/08/17 at 09:00; Status Future Hold Zinc Sulfate (Zinc Sulfate) 220 mg DAILY PO Last administered on 04/15/17 08:15 ; Admin Dose 220 MG; Start 04/08/17 at 09:00 Miscellaneous Information 1 ea NOTE XX ; Start 04/07/17 at 23:00 Glucose (Glutose) 15 gm Q15M PRN PO DECREASED GLUCOSE; Start 04/07/17 at 23:00 Glucose (Glutose) 22.5 gm Q15M PRN PO DECREASED GLUCOSE; Start 04/07/17 at 23: 00 Dextrose (D50w Syringe) 25 ml Q15M PRN IV DECREASED GLUCOSE; Start 04/07/17 at 23:00 Dextrose (D50w Syringe) 50 ml Q15M PRN IV DECREASED GLUCOSE; Start 04/07/17 at 23:00 Glucagon (Glucagen) 1 mg Q15M PRN IM DECREASED GLUCOSE; Start 04/07/17 at 23:00 Glucose (Glutose) 15 gm Q15M PRN BUCCAL DECREASED GLUCOSE; Start 04/07/17 at 23 :00 Diagnostic Test (Pha) (Accu-Chek) 1 ea 02 XX Last administered on 04/11/17 02: 19; Admin Dose 1 EA; Start 04/08/17 at 02:00 Collagenase (Santyl) 1 applic DAILY TOP Last administered on 04/15/17 08:16; Admin Dose 1 APPLIC; Start 04/09/17 at 16:00 Collagenase 1 applic 1 applic PRN PRN TOP WOUND CARE; Start 04/09/17 at 14:30 Ceftriaxone Sodium 50 ml @ 100 mls/hr Q24H IVPB Last administered on 04/14/17 20:57; Admin Dose 100 MLS/HR; Start 04/11/17 at 17:00 Fluconazole/ Sodium Chloride (Diflucan 100 Mg/ NS (Pmx)) 50 ml @ 50 mls/hr Q24H IVPB Last administered on 04/14/17 18:41; Admin Dose 50 MLS/HR; Start 04/12/17 at 16:00 Gabapentin (Neurontin) 300 mg TID PO Last administered on 04/15/17 12:47; Admin Dose 300 MG; Start 04/13/17 at 14:15 Lactulose (Enulose) 20 gm Q6H PRN PO CONSTIPATION Last administered on 23:19; Admin Dose 20 GM; Start 04/13/17 at 13:30 Insulin Detemir (Levemir) 20 unit BID@08,20 SC Last administered on 04/15/17 08 :14; Admin Dose 20 UNIT; Start 04/13/17 at 20:00 Prednisolone Acetate (Pred-Forte 1%) 1 drop BID RIGHT EYE Last administered on 04/15/17 08:13; Admin Dose 1 DROP; Start 04/13/17 at 21:30 Miscellaneous Information Patients own medicat... BID@10,16 XX ; Start 04/14/17 at 10:00 Simethicone (Mylicon) 80 mg Q4H PRN PO GAS PAINS Last administered on 04/15/17 08:15; Admin Dose 80 MG; Start 04/14/17 at 11:09 Epoetin Indra (Epogen (Esrd)) 8,000 units MoWeFr@17 SC ; Start 04/16/17 at 17:00 Lactobacillus Acidophilus/ Rhamnosus (Culturelle) 1 cap BID PO Last administered on 04/15/17 08:14; Admin Dose 1 CAP; Start 04/14/17 at 15:00 Miscellaneous Information (*Rx Drug Level Order Reminder*) RANDOM VANCO LEVEL... ONCE ONCE XX ; Start 04/16/17 at 05:00; Stop 04/16/17 at 05:01 ALYX NAVARRO NP Apr 15, 2017 14:37
[2017-04-15] MEDS: FLUCONAZOLE 100 MG/NS (PMX) 50 ML IVPB SCH (16:29)
[2017-04-15] MEDS ORDERED: BISACODYL 10 MG SUPP PR ONE (17:00)
[2017-04-15] MEDS: CEFTRIAXONE 1 GM/50 ML (PMX) 50 ML IVPB SCH (17:36)
--- NOTE | 2017-04-15 18:08 | PN ---
DATE: 04/15/2017 SUBJECTIVE: Patient seen complaining of severe constipation, as she is requesting stool softeners. I requested a podiatry consultation as the patient's left heel is concerning. drug discovery informatics specialist is following. VITAL SIGNS: Temperature 98, pulse 70, respirations 19, blood pressure 148/56, saturation 100% on 2 liters. GENERAL: The patient is morbidly obese, pale. CARDIOVASCULAR: Positive S1 and S2, regular rate. LUNGS: Clear. ABDOMEN: Soft, obese. EXTREMITIES: No clubbing, cyanosis, or edema. She has a left thigh wound and left heel necrotic ti ssue. LABORATORY DATA: White count elevated at 14, hemoglobin 9, hematocrit 29, platelet count of 341 wit h normal differential. Chemistry: Sodium is 138, potassium 4.1, chloride 102, bicarbonate 27, BUN is 22, creatinine 4.7, glucose 152. CURRENT MEDICATIONS: Include: 1. Epogen 8000 every Friday, Friday and Friday. 2. Mineral oil as directed. 3. Lactobacillus b.i.d. 4. Simethicone ____ q.4h. p.r.n. 5. Pred Forte to the eyes b.i.d. 6. Levemir 20 units b.i.d. 7. Neurontin 300 t.i.d. 8. Lactulose p.r.n. 9. Diflucan q. 24 hours. 10. Santyl daily and p.r.n. 11. Norvasc 5 mg daily. 12. Vitamin C 500 mg daily. 13. Zinc sulfate 20 daily. 14. Insulin aspart per sliding scale. 15. PhosLo ____ grams t.i.d. 16. Protonix 40 mg daily. 17. Accu-Chek q.a.c. and at bedtime. 18. Hypoglycemia protocol as directed. ASSESSMENT AND PLAN: This is a very unfortunate 61-year-old morbidly obese female with his tory of diabetes mellitus, end-stage renal disease, hypertension, chronic left thigh wound presentin g with gross hematuria likely from acute cystitis. 1. Acute cystitis, resolving, status post treatment. Hematuria resolved. I appreciate infectious disease input. 2. Diabetes mellitus, controlled with Levemir. 3. Anemia, status post 2 units of packed red blood cells. Hemoglobin and hematocrit is stable. 4. End-stage renal disease, dialysis every Friday, Friday and Friday. 5. Left thigh wound, awaiting debridement, likely be done today by the surgical technician. 6. Left heel wound previously seen by the vascular surgeon. Offloading is very important. The pat jacoby is morbidly obese and putting all her pressure on the left knee. Elevation of the lower extrem ities is advised. drug discovery informatics specialist is following. Vitamins to be provided. 7. Hypertension overall stable, observe. 8. Physical therapy as tolerated. Overall, condition is guarded and very difficult because she is very overweight with a BMI of 49 and this is causing all complication and wounds in the setting of patient who is diabetic with end-stag e renal disease. We will follow. Make sure the patient is comfortable. Dictated By: BAL BERG/VICTORINA Conf#: [id number] DID#: [id number]
[2017-04-15 20:21] VITALS: BP 139/64; RESP 21
[2017-04-16] VITALS (9 sets, daily range): BP systolic 110–137; BP diastolic 55–65; PULSE 75–84; RESP 18
[2017-04-16] MEDS: ACCUCHECK AT 2AM (Patients on SS coverage) XX SCH (01:57)
[2017-04-16] MEDS: PANTOPRAZOLE (EC) 40 MG TAB PO SCH (05:26)
[2017-04-16 05:51] LABS: ADD SCAN DIFF NO
[2017-04-16 05:57] LABS: ABNORMAL IP MESSAGE 1; BASOPHIL # 0.1 10^3/ul (0.0-0.1); BASOPHILS % 0.4 % (0.0-2.0); EOSINOPHILS # 0.2 10^3/ul (0.0-0.5); EOSINOPHILS % 0.9 % (0.0-7.0); HEMATOCRIT 28.1 % (37.0-47.0); HEMOGLOBIN 8.7 g/dl (12.0-16.0); LYMPHOCYTES # 1.8 10^3/ul (0.8-2.9); LYMPHOCYTES % 10.2 % (15.0-51.0); MEAN CORPUSCULAR HEMOGLOBIN 29.3 pg (29.0-33.0); MEAN CORPUSCULAR VOLUME 94.6 fl (82.0-101.0); MEAN PLATELET VOLUME 9.5 fl (7.4-10.4); MONOCYTE # 1.6 10^3/ul (0.3-0.9); MONOCYTES % 9.4 % (0.0-11.0); NEUTROPHIL # 13.4 10^3/ul (1.6-7.5); PLATELET COUNT 400 10^3/UL (140-415); RED BLOOD COUNT 2.97 10^6/ul (4.20-5.40); RED CELL DISTRIBUTION WIDTH 14.8 % (11.5-14.5); WHITE BLOOD COUNT 17.3 10^3/ul (4.8-10.8)
[2017-04-16 06:22] LABS: CALCIUM 8.6 mg/dl (8.4-10.2); CREATININE 5.3 mg/dl (0.44-1.00); POTASSIUM 4.5 mmol/L (3.5-5.1)
[2017-04-16] MEDS: INSULIN ASPART [NOVOLOG] 3 ML PEN SC SCH ×4 (08:00→21:00)
[2017-04-16] MEDS: CALCIUM ACETATE 667 MG CAP PO SCH ×3 (08:06→17:08)
[2017-04-16] MEDS: INSULIN DETEMIR [LEVEMIR] 3ML CART SC SCH ×2 (08:09→20:30)
[2017-04-16] MEDS: AMLODIPINE 5 MG TAB PO SCH (09:00)
[2017-04-16] MEDS: morphine 2 MG INJ IV PRN ×2 (09:01→22:30)
[2017-04-16] MEDS: GABAPENTIN 300 MG CAP PO SCH ×3 (09:03→21:24)
[2017-04-16] MEDS: ASCORBIC ACID 500 MG TAB PO SCH (09:03)
[2017-04-16] MEDS: LACTOBACILLUS RHAMNOSUS CAP PO SCH ×2 (09:03→21:25)
[2017-04-16] MEDS: ZINC SULFATE 220 MG CAP PO SCH (09:03)
[2017-04-16] MEDS: PREDNISOLONE ACET 1% 5 ML OPH RIGHT EYE SCH ×2 (09:04→21:26)
[2017-04-16] MEDS: COLLAGENASE 30 GM TUBE TOP SCH (09:05)
--- NOTE | 2017-04-16 11:36 | CONS ---
Date/Time of Note Date/Time of Note DATE: 04/16/17 TIME: 11:35 Assessment/Plan Assessment/Plan Chief Complaint/Hosp Course - ESRD ON HEMODIALYSIS @ [facility] [place] [facility] - ANEMIA - HEMATURIA / BLEEDING - DM - HYPERTENSION - RECENT Hx OF LEG CELLULITIS ( ON ABX ) - HIGH PHOS. - HYPONATREMIA PLAN: Continue with HD as planned Continue with EPOGEN Check Iron status Continue with Abx Urology plan noted Problems: Consultation Date/Type/Reason Admit Date/Time April 07, 2017 at 21:56 Initial Consult Date 04/09/17 Type of Consultation: NEPHROLOGY Referring Provider: BAL MAYER MD 24 HR Interval Summary Constitutional: improved, no complaints Exam/Review of Systems Vital Signs Vitals Vital Signs Date Time Temp Pulse Resp B/P Pulse Ox O2 Delivery O2 Flow Rate FiO2 04/16/17 10:38 2.0 04/16/17 07:30 99.0 80 18 119/58 96 04/15/17 08:19 Room Air Intake and Output 04/15/17 04/15/17 04/16/17 14:59 22:59 06:59 Intake Total 580 ml 480 ml Output Total 2 ml 2 ml Balance 578 ml 478 ml Exam Constitutional: alert Respiratory: crackles/rales Cardiovascular: edema, regular rate and rhythm, systolic murmur Gastrointestinal: soft Results Result Diagram: 04/16/17 0505 04/16/17 0505 Results 24 hrs Laboratory Tests Test 04/15/17 12:15 04/15/17 17:24 04/15/17 20:56 04/16/17 05:05 Bedside Glucose 150 127 143 White Blood Count 17.3 #H Red Blood Count 2.97 L Hemoglobin 8.7 L Hematocrit 28.1 L Mean Corpuscular Volume 94.6 Mean Corpuscular Hemoglobin 29.3 Mean Corpuscular Hemoglobin Concent 31.0 L Red Cell Distribution Width 14.8 H Platelet Count 400 Mean Platelet Volume 9.5 Neutrophils % 77.0 Lymphocytes % 10.2 L Monocytes % 9.4 Eosinophils % 0.9 Basophils % 0.4 Nucleated Red Blood Cells % 0.0 Neutrophils # 13.4 H Lymphocytes # 1.8 Monocytes # 1.6 H Eosinophils # 0.2 Basophils # 0.1 Nucleated Red Blood Cells # 0.0 Sodium Level 134 L Potassium Level 4.5 Chloride Level 97 Carbon Dioxide Level 29 Anion Gap 13 Blood Urea Nitrogen 36 H Creatinine 5.30 H Glucose Level 119 Calcium Level 8.6 Magnesium Level 2.9 H Random Vancomycin Level 16.5 Test 04/16/17 08:05 Bedside Glucose 102 Medications Medications Current Medications Ondansetron HCl (Zofran Inj) 4 mg Q6H PRN IV NAUSEA AND/OR VOMITING Last administered on 04/13/17 06:23; Admin Dose 4 MG; Start 04/07/17 at 22:30 Acetaminophen (Tylenol Tab) 650 mg Q6H PRN PO PAIN LEVEL 1-3 OR FEVER Last administered on 04/12/17 17:35; Admin Dose 650 MG; Start 04/07/17 at 22:30 Morphine Sulfate (morphine) 2 mg Q4H PRN IV SEVERE PAIN LEVEL 7-10 Last administered on 04/16/17 09:01; Admin Dose 2 MG; Start 04/07/17 at 22:30 Docusate Sodium (Colace) 100 mg Q12H PRN PO CONSTIPATION Last administered on 05:52; Admin Dose 100 MG; Start 04/07/17 at 22:30 Pantoprazole (Protonix Tab) 40 mg DAILY@06 PO Last administered on 04/16/17 05: 26; Admin Dose 40 MG; Start 04/08/17 at 06:00 Amlodipine Besylate (Norvasc) 5 mg DAILY PO Last administered on 04/15/17 08:19 ; Admin Dose 5 MG; Start 04/08/17 at 09:00 Ascorbic Acid (Vitamin C) 500 mg DAILY PO Last administered on 04/16/17 09:03; Admin Dose 500 MG; Start 04/08/17 at 09:00 Aspirin (Halfprin) 81 mg DAILY PO ; Start 04/08/17 at 09:00; Status Future Hold Zinc Sulfate (Zinc Sulfate) 220 mg DAILY PO Last administered on 04/16/17 09:03 ; Admin Dose 220 MG; Start 04/08/17 at 09:00 Miscellaneous Information 1 ea NOTE XX ; Start 04/07/17 at 23:00 Glucose (Glutose) 15 gm Q15M PRN PO DECREASED GLUCOSE; Start 04/07/17 at 23:00 Glucose (Glutose) 22.5 gm Q15M PRN PO DECREASED GLUCOSE; Start 04/07/17 at 23: 00 Dextrose (D50w Syringe) 25 ml Q15M PRN IV DECREASED GLUCOSE; Start 04/07/17 at 23:00 Dextrose (D50w Syringe) 50 ml Q15M PRN IV DECREASED GLUCOSE; Start 04/07/17 at 23:00 Glucagon (Glucagen) 1 mg Q15M PRN IM DECREASED GLUCOSE; Start 04/07/17 at 23:00 Glucose (Glutose) 15 gm Q15M PRN BUCCAL DECREASED GLUCOSE; Start 04/07/17 at 23 :00 Diagnostic Test (Pha) (Accu-Chek) 1 ea 02 XX Last administered on 04/11/17 02: 19; Admin Dose 1 EA; Start 04/08/17 at 02:00 Collagenase (Santyl) 1 applic DAILY TOP Last administered on 04/16/17 09:05; Admin Dose 1 APPLIC; Start 04/09/17 at 16:00 Collagenase 1 applic 1 applic PRN PRN TOP WOUND CARE Last administered on 00:28; Admin Dose 1 APPLIC; Start 04/09/17 at 14:30 Ceftriaxone Sodium 50 ml @ 100 mls/hr Q24H IVPB Last administered on 04/15/17 17:36; Admin Dose 100 MLS/HR; Start 04/11/17 at 17:00 Fluconazole/ Sodium Chloride (Diflucan 100 Mg/ NS (Pmx)) 50 ml @ 50 mls/hr Q24H IVPB Last administered on 04/15/17 16:29; Admin Dose 50 MLS/HR; Start 04/12/17 at 16:00 Gabapentin (Neurontin) 300 mg TID PO Last administered on 04/16/17 09:03; Admin Dose 300 MG; Start 04/13/17 at 14:15 Lactulose (Enulose) 20 gm Q6H PRN PO CONSTIPATION Last administered on 23:19; Admin Dose 20 GM; Start 04/13/17 at 13:30 Insulin Detemir (Levemir) 20 unit BID@08,20 SC Last administered on 04/16/17 08 :09; Admin Dose 20 UNIT; Start 04/13/17 at 20:00 Prednisolone Acetate (Pred-Forte 1%) 1 drop BID RIGHT EYE Last administered on 04/16/17 09:04; Admin Dose 1 DROP; Start 04/13/17 at 21:30 Miscellaneous Information Patients own medicat... BID@10,16 XX ; Start 04/14/17 at 10:00 Simethicone (Mylicon) 80 mg Q4H PRN PO GAS PAINS Last administered on 04/15/17 08:15; Admin Dose 80 MG; Start 04/14/17 at 11:09 Epoetin Indra (Epogen (Esrd)) 8,000 units MoWeFr@17 SC ; Start 04/16/17 at 17:00 Lactobacillus Acidophilus/ Rhamnosus (Culturelle) 1 cap BID PO Last administered on 04/16/17 09:03; Admin Dose 1 CAP; Start 04/14/17 at 15:00 ANIBAL ALMANZAR MD Apr 16, 2017 11:36
--- NOTE | 2017-04-16 12:01 | PN ---
Date/Time of Note Date/Time of Note DATE: 04/15/17 TIME: 17:59 Assessment/Plan Lines/Catheters IV Catheter Type (from [facility]): Saline Lock [place] in Place (from [facility]): No Assessment/Plan Chief Complaint/Hosp Course 1. 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 -antibiotics, -warm compress, -Nutritional optimization -Vitamin C -Local care -Excisional debridement today 2. Morbid obesity with BMI of 49. The patient is highly encouraged to optimize her nutrition and exercise to improve her overall health status. If she is not successful by that route, she may seek weight loss surgery. 3. Diabetes. Continue nutrition and medication control and encourage weight loss. 4. Hypertension. Continue nutrition and medication control, encourage weight loss. 5. Anemia without evidence of acute blood loss. Continue monitoring and workup per medical and GI. 6. Leukocytosis, probably secondary to #1 as above. 7. Rheumatoid arthritis. Continue medical optimization. 8. Electrolyte abnormalities with end-stage renal disease on hemodialysis. Continue judicious fluid management and dialysis. Thank you, Late entry 04/15 Problems: Subjective 24 Hr Interval Summary Pain without fevers, chills, nausea, vomiting, chest pain, no shortness of breath. No cough or seizure. No blood per mouth or rectum. No abnormal discharge. Exam/Review of Systems Vital Signs Vitals Vital Signs Date Time Temp Pulse Resp B/P Pulse Ox O2 Delivery O2 Flow Rate FiO2 04/16/17 10:38 2.0 04/16/17 07:30 99.0 80 18 119/58 96 04/15/17 08:19 Room Air Intake and Output 04/15/17 04/15/17 04/16/17 15:00 23:00 07:00 Intake Total 580 ml 480 ml Output Total 2 ml 2 ml Balance 578 ml 478 ml Exam Free Text/Dictation GENERAL: Morbid obesity, no acute distress. HEENT: Pupils equal and reactive without scleral icterus. Mucous membranes are moist. NECK: Obese, no crepitus, no JVD observable. PULMONARY: Normal respiratory effort. No wheezing. HEART: S1, S2 present. ABDOMEN: Soft, morbidly obese, nontender. No rebound. EXTREMITIES: With some edema. Left inner thigh wound with devascularized tissue VASCULAR: Capillary refill is 2 seconds. NEUROLOGIC: Alert, oriented, moves all 4 extremities grossly Results Result Diagram: 04/16/17 0505 04/16/17 0505 ALFREDO SANCHEZ MD Apr 16, 2017 12:01
--- NOTE | 2017-04-16 12:02 | OPR ---
Date/Time of Note Date/Time of Note DATE: 04/15/17 TIME: 18:01 Operative Report Procedure Date: Apr 15, 2017 Preoperative Diagnosis Left thigh necrotic wound, 10x9cm Postoperative Diagnosis Same Operation Performed 1. Excisional debridement left thigh skin and subcutaneous tissue, 10x9cm 2. Local anesthetic injection, [id number] Surgeon: ALFREDO SANCHEZ MD Anesthesia: other (Local) Estimated Blood Loss: minimal Specimens Tissue Tubes/Drains Packing Complications: None Pt Condition Post Procedure: stable Disposition: PACU Indications Per notes. r/b/a/ as per usual and customary Procedure Description Patient was placed supine on her own bed. Time out done. Area prepped and draped. Local anesthetic was injected at the site. Using scalpel, the necrotic tissue of skin and subq were excised to healthier bleeding tissue. Hemostasis obtained with silver nitrate. dressing applied. ALFREDO SANCHEZ MD Apr 16, 2017 12:02
--- NOTE | 2017-04-16 12:11 | PN ---
Date/Time of Note Date/Time of Note DATE: 04/16/17 TIME: 12:09 Assessment/Plan Lines/Catheters IV Catheter Type (from [facility]): Saline Lock [place] in Place (from [facility]): No Assessment/Plan Chief Complaint/Hosp Course 1. 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 s/p Exc debridement 04/15 -antibiotics, -warm compress, -Nutritional optimization -Vitamin C -Local care 2. Morbid obesity with BMI of 49. The patient is highly encouraged to optimize her nutrition and exercise to improve her overall health status. If she is not successful by that route, she may seek weight loss surgery. 3. Diabetes. Continue nutrition and medication control and encourage weight loss. 4. Hypertension. Continue nutrition and medication control, encourage weight loss. 5. Anemia without evidence of acute blood loss. Continue monitoring and workup per medical and GI. 6. Leukocytosis, probably secondary to #1 as above. 7. Rheumatoid arthritis. Continue medical optimization. 8. Electrolyte abnormalities with end-stage renal disease on hemodialysis. Continue judicious fluid management and dialysis. Thank you, Problems: Subjective 24 Hr Interval Summary s/p Exc debridement 04/15. Generalized pains. No fevers, chills, nausea, vomiting, chest pain, no shortness of breath. No cough or seizure. No blood per mouth or rectum. No abnormal discharge. Exam/Review of Systems Vital Signs Vitals Vital Signs Date Time Temp Pulse Resp B/P Pulse Ox O2 Delivery O2 Flow Rate FiO2 04/16/17 10:38 2.0 04/16/17 07:30 99.0 80 18 119/58 96 04/15/17 08:19 Room Air Intake and Output 04/15/17 04/15/17 04/16/17 15:00 23:00 07:00 Intake Total 580 ml 480 ml Output Total 2 ml 2 ml Balance 578 ml 478 ml Exam Free Text/Dictation GENERAL: Morbid obesity, no acute distress. HEENT: Pupils equal and reactive without scleral icterus. Mucous membranes are moist. NECK: Obese, no crepitus, no JVD observable. PULMONARY: Normal respiratory effort. No wheezing. HEART: S1, S2 present. ABDOMEN: Soft, morbidly obese, nontender. No rebound. EXTREMITIES: With some edema. Left inner thigh wound with dressing VASCULAR: Capillary refill is 2 seconds. NEUROLOGIC: Alert, oriented, moves all 4 extremities grossly Results Result Diagram: 04/16/17 0505 04/16/17 0505 ALFREDO SANCHEZ MD Apr 16, 2017 12:11
--- NOTE | 2017-04-16 14:06 | PN ---
DATE: 04/16/2017 SUBJECTIVE: The patient has had hematuria before, and she had an indwelling [place] catheter which wa s removed and the patient has been voiding and the urine is clear. She did have a urinary tract inf ection which is being treated. OBJECTIVE: VITAL SIGNS: Temperature is 99.0, blood pressure 119/58. The pulse is 80, respiration is 18. The patient is going to be dialyzed today. ABDOMEN: Obese and there is no tenderness. LABORATORY DATA: Her CBC shows a white count of 17.3, hemoglobin 8.7, hematocrit 28.1. The BUN is 36, creatinine 5.3, sodium 134, potassium 4.5, chloride 97, CO2 29. The urine culture from 04/10/20 17 showed Ruth Ann albicans. The patient had a [place] catheter and that was removed and she has been on fluconazole and that was stopped today. IMPRESSION: Urinary tract infection that has cleared and the hematuria has cleared and the patient did have a urine cytology 3 times and no malignant cells were identified and the urinary tract infec tion has been treated, so from a urological standpoint just observe her and should she have bleeding again one has to again double check for infection and then if she continues to bleed, we may have t o do a cystoscopy to make sure there is no bladder tumor. Dictated By: KENISHA BETANCOURT/VICTORINA Conf#: [id number] DID#: [id number]
--- NOTE | 2017-04-16 14:12 | PN ---
DATE: 04/16/2017 INFECTIOUS DISEASE PROGRESS NOTE SUBJECTIVE: No acute changes. The patient is awake, lying comfortably in bed. No fevers and no di arrhea. She had a left upper thigh debridement yesterday. WBC today increased to 17.3, platelets 4 00, no shift. INDWELLINGS: Right chest PermCath and left upper extremity AV fistula. ANTIMICROBIALS: The patient remains on: 1. Fluconazole 2. Rocephin. 3. Also IV vancomycin. PHYSICAL EXAMINATION: GENERAL: This is a morbidly obese, elderly woman who is alert, in no distress. HEENT: Head atraumatic, normocephalic. Sclerae anicteric. Buccal mucosa pink. NECK: Obese. CHEST: Rise symmetrical. Breath sounds clear. HEART: S1, S2. ABDOMEN: Soft. Bowel tones present. No tenderness over suprapubic area. EXTREMITIES: No cyanosis. ASSESSMENT: 1. Systemic inflammatory response syndrome. 2. Left upper thigh chronic necrotic wound, status post debridement yesterday. 3. Status post urinary tract infection, hematuria. 4. End-stage renal disease, hemodialysis dependent. 5. Chronic pain syndrome. 6. Diabetes. 7. Morbid obesity. PLAN: The patient remains clinically and hemodynamically stable with increased leukocytosis, possib ly reactive, status post debridement. Pending wound cultures. Continue present care, antibiotics. Follow recommendations of consultants. Dictated By: ALYX NAVARRO ART FRAMING MANAGER for LUCAS MARCELO/NTS Conf#: [id number] DID#: [id number]
[2017-04-16] MEDS: CEFTRIAXONE 1 GM/50 ML (PMX) 50 ML IVPB SCH (16:02)
[2017-04-16] MEDS: FLUCONAZOLE 100 MG/NS (PMX) 50 ML IVPB SCH (16:03)
--- NOTE | 2017-04-16 16:54 | PN ---
DATE: 04/16/2017 SUBJECTIVE: The patient seen, feeling better as patient had a large bowel movement. Currently rece iving dialysis. I am awaiting a podiatry evaluation of the patient's left heel wound. White count increased to 17,000 as well, which may be reactive in nature, as the patient is status post debridem ent of left medial thigh wound. PHYSICAL EXAMINATION: VITAL SIGNS: Temperature max is 99 this morning, pulse 82, respirations 17, blood pressure 119/58, saturation 96% on 2 liters. GENERAL: The patient in no acute distress, morbidly obese, pale. CARDIOVASCULAR: S1, S2, regular rate. LUNGS: Clear. ABDOMEN: Soft, nontender. EXTREMITIES: There is no clubbing, cyanosis, or edema. Left heel necrotic discoloration, does not smell. LABORATORY DATA: White count 17.3, hemoglobin 8.7, hematocrit 28.1, platelet count 400, neutrophils 77%, lymphocytes 10%. Chemistry: Sodium is 134, potassium 4.5, chloride 97, bicarbonate 29, BUN 3 6, creatinine 5.3, glucose of 119. Urine culture on 04/10/2017 showed Ruth Ann albicans. MEDICATIONS: Reviewed, include: 1. Vancomycin dose per pharmacy. 2. Epogen 8000 q. Friday, Friday and Friday. 3. Lactobacillus Culturelle b.i.d. 4. Simethicone p.r.n. 5. Prednisone Forte b.i.d. to the right eye. 6. Levemir 20 units b.i.d. 7. Neurontin 300 t.i.d. 8. Lactulose p.r.n. 9. Diflucan 100 IV daily. 10. Rocephin 1 gram daily. 11. Santyl daily. 12. Norvasc 5 mg daily. 13. Vitamin C 500 mg daily. 14. Insulin. 15. Zinc sulfate daily. 16. Calcium or PhosLo 1.3 grams t.i.d. meals. 17. Protonix 40 mg daily. 18. Accu-Chek before meals and at bedtime. 19. Hypoglycemia protocol. 20. Zofran p.r.n. 21. Tylenol p.r.n. 22. Morphine p.r.n. 23. Colace p.r.n. ASSESSMENT AND PLAN: This is an unfortunate 61-year-old morbidly obese female with history of diabetes mellitus, end-stage renal disease, hypertension, chronic left thigh wound, presented wi th gross hematuria likely from acute cystitis. 1. Acute cystitis, resolving. Hematuria resolved. ID is following. Antibiotics are being adminis tered. 2. Diabetes mellitus, currently on Levemir 20 units twice a day. Glucose levels are in the low 10 0s, overall controlled with the above regimen. 3. Left heel decubitus wound. As the patient is morbidly obese, difficult to prevent any wound. A corporate communications specialist was consulted. Podiatry to follow. 4. End-stage renal disease. Currently receiving dialysis. Monitor electrolytes. 5. Anemia, status post 2 units of packed red blood cells. Hemoglobin and hematocrit remain stable as gross hematuria resolved. 6. Hypertension, stable. 7. Physical therapy as tolerated. 8. Constipation. Responded well to stool softeners. DISPOSITION: Soon back to long-term facility, pending podiatry recommendations and patient's white count We will follow. Dictated By: BAL BERG/VICTORINA Conf#: [id number] DID#: [id number]
[2017-04-16] MEDS: EPOETIN 4000 UNITS/1 ML INJ (ESRD) SC SCH (17:09)
--- NOTE | 2017-04-16 17:17 | CONS ---
Date/Time of Note Date/Time of Note DATE: 04/16/17 TIME: 17:15 Assessment/Plan Assessment/Plan Problems: (1) Decubitus ulcer, heel (2) Peripheral vascular disease (3) Kidney failure (4) Hemodialysis patient Additional Assessment/Plan Heel protectors to both feet ordered and I spoke with her nurse about proper application. Patient will be followed in house. Patient will be followed in- house. Thank you very much for your kind consultation. Consultation Date/Type/Reason Admit Date/Time April 07, 2017 at 21:56 Date of Consultation: May 16, 2017 Type of Consultation: Foot and ankle surgery Reason for Consultation Left heel decubitus ulceration Hx of Present Illness Thank you very much for involving me in the care of this patient. As you very well know, this is a 61-year-old female who was admitted to [facility] with multiple medical problems including a significant wound infection of her left medial thigh as a complication of a varicose vein ablation involving the greater saphenous vein. Patient was found to have developed a left heel gangrene that has developed over some time. I was consulted to evaluate and treat. Patient denies shortness of breath, chest pain, nausea, vomiting, fever or chills. Patient denies pain in her feet. Constitutional: improved, no complaints Eyes: no complaints ENT: no complaints Respiratory: no complaints Cardiovascular: no complaints Gastrointestinal: no complaints Genitourinary: bleeding Musculoskeletal: no complaints Skin: other (Wound, color changes, swelling) Neurologic: No confusion, No syncope Lymphatic: No adenopathy Psychological: no complaints Immunologic: No pruritis, No rhinitis Past Medical History As per history of present illness. Past Surgical History As per history of present illness. Social History As per history of present illness. Alcohol Use: none Smoking Status: Never smoker Drug Use: none Exam/Review of Systems Vital Signs Vitals Vital Signs Date Time Temp Pulse Resp B/P Pulse Ox O2 Delivery O2 Flow Rate FiO2 04/16/17 14:20 82 17 04/16/17 10:38 2.0 04/16/17 07:30 99.0 119/58 96 04/15/17 08:19 Room Air Intake and Output 04/15/17 04/15/17 04/16/17 15:00 23:00 07:00 Intake Total 580 ml 480 ml Output Total 2 ml 2 ml Balance 578 ml 478 ml Exam Moderately obese female in no acute distress. There is also present on the posterior plantar aspect of the left heel noninfected. There is black eschar present. Edema noted. There is nontender to palpation. Pedal pulses are weak bilaterally. Skin changes noted in the lower extremity with edema of the lower legs. Labs reviewed. Results Result Diagram: 04/16/17 0505 04/16/17 0505 Results 24 hrs Laboratory Tests Test 04/15/17 17:24 04/15/17 20:56 04/16/17 05:05 04/16/17 08:05 Bedside Glucose 127 143 102 White Blood Count 17.3 #H Red Blood Count 2.97 L Hemoglobin 8.7 L Hematocrit 28.1 L Mean Corpuscular Volume 94.6 Mean Corpuscular Hemoglobin 29.3 Mean Corpuscular Hemoglobin Concent 31.0 L Red Cell Distribution Width 14.8 H Platelet Count 400 Mean Platelet Volume 9.5 Neutrophils % 77.0 Lymphocytes % 10.2 L Monocytes % 9.4 Eosinophils % 0.9 Basophils % 0.4 Nucleated Red Blood Cells % 0.0 Neutrophils # 13.4 H Lymphocytes # 1.8 Monocytes # 1.6 H Eosinophils # 0.2 Basophils # 0.1 Nucleated Red Blood Cells # 0.0 Sodium Level 134 L Potassium Level 4.5 Chloride Level 97 Carbon Dioxide Level 29 Anion Gap 13 Blood Urea Nitrogen 36 H Creatinine 5.30 H Glucose Level 119 Calcium Level 8.6 Magnesium Level 2.9 H Random Vancomycin Level 16.5 Test 04/16/17 11:57 04/16/17 17:07 Bedside Glucose 140 119 Medications Medications Current Medications Ondansetron HCl (Zofran Inj) 4 mg Q6H PRN IV NAUSEA AND/OR VOMITING Last administered on 04/13/17 06:23; Admin Dose 4 MG; Start 04/07/17 at 22:30 Acetaminophen (Tylenol Tab) 650 mg Q6H PRN PO PAIN LEVEL 1-3 OR FEVER Last administered on 04/12/17 17:35; Admin Dose 650 MG; Start 04/07/17 at 22:30 Morphine Sulfate (morphine) 2 mg Q4H PRN IV SEVERE PAIN LEVEL 7-10 Last administered on 04/16/17 09:01; Admin Dose 2 MG; Start 04/07/17 at 22:30 Docusate Sodium (Colace) 100 mg Q12H PRN PO CONSTIPATION Last administered on 05:52; Admin Dose 100 MG; Start 04/07/17 at 22:30 Pantoprazole (Protonix Tab) 40 mg DAILY@06 PO Last administered on 04/16/17 05: 26; Admin Dose 40 MG; Start 04/08/17 at 06:00 Amlodipine Besylate (Norvasc) 5 mg DAILY PO Last administered on 04/15/17 08:19 ; Admin Dose 5 MG; Start 04/08/17 at 09:00 Ascorbic Acid (Vitamin C) 500 mg DAILY PO Last administered on 04/16/17 09:03; Admin Dose 500 MG; Start 04/08/17 at 09:00 Aspirin (Halfprin) 81 mg DAILY PO ; Start 04/08/17 at 09:00; Status Future Hold Zinc Sulfate (Zinc Sulfate) 220 mg DAILY PO Last administered on 04/16/17 09:03 ; Admin Dose 220 MG; Start 04/08/17 at 09:00 Miscellaneous Information 1 ea NOTE XX ; Start 04/07/17 at 23:00 Glucose (Glutose) 15 gm Q15M PRN PO DECREASED GLUCOSE; Start 04/07/17 at 23:00 Glucose (Glutose) 22.5 gm Q15M PRN PO DECREASED GLUCOSE; Start 04/07/17 at 23: 00 Dextrose (D50w Syringe) 25 ml Q15M PRN IV DECREASED GLUCOSE; Start 04/07/17 at 23:00 Dextrose (D50w Syringe) 50 ml Q15M PRN IV DECREASED GLUCOSE; Start 04/07/17 at 23:00 Glucagon (Glucagen) 1 mg Q15M PRN IM DECREASED GLUCOSE; Start 04/07/17 at 23:00 Glucose (Glutose) 15 gm Q15M PRN BUCCAL DECREASED GLUCOSE; Start 04/07/17 at 23 :00 Diagnostic Test (Pha) (Accu-Chek) 1 ea 02 XX Last administered on 04/11/17 02: 19; Admin Dose 1 EA; Start 04/08/17 at 02:00 Collagenase (Santyl) 1 applic DAILY TOP Last administered on 04/16/17 09:05; Admin Dose 1 APPLIC; Start 04/09/17 at 16:00 Collagenase 1 applic 1 applic PRN PRN TOP WOUND CARE Last administered on 00:28; Admin Dose 1 APPLIC; Start 04/09/17 at 14:30 Ceftriaxone Sodium 50 ml @ 100 mls/hr Q24H IVPB Last administered on 04/16/17 16:02; Admin Dose 100 MLS/HR; Start 04/11/17 at 17:00 Fluconazole/ Sodium Chloride (Diflucan 100 Mg/ NS (Pmx)) 50 ml @ 50 mls/hr Q24H IVPB Last administered on 04/16/17 16:03; Admin Dose 50 MLS/HR; Start 04/12/17 at 16:00 Gabapentin (Neurontin) 300 mg TID PO Last administered on 04/16/17 11:57; Admin Dose 300 MG; Start 04/13/17 at 14:15 Lactulose (Enulose) 20 gm Q6H PRN PO CONSTIPATION Last administered on 23:19; Admin Dose 20 GM; Start 04/13/17 at 13:30 Insulin Detemir (Levemir) 20 unit BID@08,20 SC Last administered on 04/16/17 08 :09; Admin Dose 20 UNIT; Start 04/13/17 at 20:00 Prednisolone Acetate (Pred-Forte 1%) 1 drop BID RIGHT EYE Last administered on 04/16/17 09:04; Admin Dose 1 DROP; Start 04/13/17 at 21:30 Miscellaneous Information Patients own medicat... BID@10,16 XX ; Start 04/14/17 at 10:00 Simethicone (Mylicon) 80 mg Q4H PRN PO GAS PAINS Last administered on 04/15/17 08:15; Admin Dose 80 MG; Start 04/14/17 at 11:09 Epoetin Indra (Epogen (Esrd)) 8,000 units MoWeFr@17 SC Last administered on 17:09; Admin Dose 8,000 UNITS; Start 04/16/17 at 17:00 Lactobacillus Acidophilus/ Rhamnosus 1 cap 1 cap BID PO Last administered on 09:03; Admin Dose 1 CAP; Start 04/14/17 at 15:00 Vancomycin HCl (Vancocin) 250 ml @ 125 mls/hr Q5D IVPB ; Start 04/16/17 at 22:00 LEELEE SOTOMAYOR DPM Apr 16, 2017 17:17
[2017-04-16] MEDS: VANCOMYCIN 1 GM in NS 250 ML IVPB SCH (22:18)
[2017-04-17] MEDS: ACCUCHECK AT 2AM (Patients on SS coverage) XX SCH (02:00)
[2017-04-17] MEDS: morphine 2 MG INJ IV PRN ×3 (02:03→18:29)
[2017-04-17] MEDS: PANTOPRAZOLE (EC) 40 MG TAB PO SCH (05:32)
[2017-04-17 07:41] VITALS: BP 136/62; RESP 20
[2017-04-17] MEDS: INSULIN ASPART [NOVOLOG] 3 ML PEN SC SCH ×4 (08:00→20:35)
[2017-04-17] MEDS: GABAPENTIN 300 MG CAP PO SCH ×3 (09:58→20:35)
[2017-04-17] MEDS: LACTOBACILLUS RHAMNOSUS CAP PO SCH ×2 (09:58→20:35)
[2017-04-17] MEDS: CALCIUM ACETATE 667 MG CAP PO SCH ×3 (09:58→18:30)
[2017-04-17] MEDS: AMLODIPINE 5 MG TAB PO SCH (09:59)
[2017-04-17] MEDS: PREDNISOLONE ACET 1% 5 ML OPH RIGHT EYE SCH ×2 (09:59→20:35)
[2017-04-17] MEDS: ASCORBIC ACID 500 MG TAB PO SCH (09:59)
[2017-04-17] MEDS: ZINC SULFATE 220 MG CAP PO SCH (09:59)
[2017-04-17] MEDS: INSULIN DETEMIR [LEVEMIR] 3ML CART SC SCH ×2 (10:05→20:34)
[2017-04-17] MEDS: COLLAGENASE 30 GM TUBE TOP SCH (10:06)
--- NOTE | 2017-04-17 14:05 | PN ---
DATE: 04/17/[address] Ding for podiatry input. Special heel protectors were placed. We are still await ing physical therapy. The patient continues to have low-grade temperatures. T-max is 99.2. PHYSICAL EXAMINATION: VITAL SIGNS: Current temperature 99.1, pulse 70, respirations 20, blood pressure 136/62, saturation 97% on 2 liters. GENERAL: The patient is morbidly obese. Currently denies any pain. The patient is pale. CHEST: Right chest tube, hemodialysis catheter. CARDIOVASCULAR: S1, S2, regular rate. LUNGS: Clear. ABDOMEN: Soft, nontender. EXTREMITIES: No clubbing, cyanosis, or edema. She has a left heel wound and a left medial thigh wo und. LABORATORY: White count yesterday was 17.3. No CBC day. Last glucose levels 91, 155 and 158, so g lucose levels are good. No electrolytes done today. MEDICATIONS: Reviewed and include: 1. Vancomycin dose per pharmacy. 2. Epogen 8000 q. Friday, Friday, Friday. 3. Culturelle b.i.d. 4 Simethicone p.r.n. 5. Pred Forte b.i.d. to the right eye. 6. Levemir 20 units twice a day. 7. Neurontin 300 t.i.d. 8. Lactulose p.r.n. 9. Diflucan daily. 10. Rocephin 1 gram q.24 hours. 11. Santyl as directed. 12. Norvasc 5 mg daily. 13. Vitamin C 500 mg daily. 14. Zinc sulfate 200 daily. 15. Insulin Aspart per sliding scale. 16. Calcium acetate, PhosLo 1.3 grams t.i.d. 17. Protonix 40 mg daily. 18. Hypoglycemia protocol as directed. 19. Zofran p.r.n. 20. Tylenol p.r.n. 21. Morphine. 22. Colace p.r.n. ASSESSMENT AND PLAN: This is a 61-year-old morbidly obese female with a history of diabetes mellitus, end-stage renal disease, hypertension, and chronic left thigh wound, who presented with g ross hematuria. 1. Acute cystitis. Resolved with antibiotic management. 2. Diabetes mellitus. Controlled with current regimen of Levemir. 3. Left heel decubitus wounds. Continue heel protectors. Physical therapy to follow. Appreciate podiatry's input. 4. Left medial thigh wound. Status post debridement. Continue wound care. The patient is on Stefano yl. Continue vitamins. 5. Anemia. Hemoglobin and hematocrit are stable. Continue Epogen. 6. Hypertension. Stable. 7. Physical therapy. 8. Constipation. Abdominal pain resolved after multiple stool softeners and large bowel movements. 9. Disposition. Hopefully in the a.m. Will follow up a.m. labs. Patient to be dialyzed tomorrow and hopefully she can be discharged thereafter back to the [facility] facility. We will follow . Again, her prognosis is not very good because of weight gain. Again, weight loss is a must. Dictated By: BAL BERG/VICTORINA Conf#: [id number] DID#: [id number]
--- NOTE | 2017-04-17 16:09 | CONS ---
Date/Time of Note Date/Time of Note DATE: 04/17/17 TIME: 16:08 Assessment/Plan Assessment/Plan Chief Complaint/Hosp Course SUBJECTIVE: No acute changes. No fevers and no diarrhea. INDWELLINGS: Right chest PermCath and left upper extremity AV fistula. ANTIMICROBIALS: The patient remains on: 1. Fluconazole 2. Rocephin. 3. IV vancomycin. PHYSICAL EXAMINATION: GENERAL: This is a morbidly obese, elderly woman who is alert, in no distress. HEENT: Head atraumatic, normocephalic. Sclerae anicteric. Buccal mucosa pink. NECK: Obese. CHEST: Rise symmetrical. Breath sounds clear. HEART: S1, S2. ABDOMEN: Soft. Bowel tones present. No tenderness over suprapubic area. EXTREMITIES: No cyanosis. ASSESSMENT: 1. Systemic inflammatory response syndrome. 2. Left upper thigh chronic necrotic wound, status post debridement 04/16/17. 3. Status post urinary tract infection, hematuria. 4. End-stage renal disease, hemodialysis dependent. 5. Chronic pain syndrome. 6. Diabetes. 7. Morbid obesity. PLAN: The patient remains clinically and hemodynamically stable,pending wound cx, continue abx. Follow recommendations of consultants. DW staff Problems: Consultation Date/Type/Reason Admit Date/Time April 07, 2017 at 21:56 Initial Consult Date 04/11/17 Type of Consultation: ID Referring Provider: BAL MAYER MD Exam/Review of Systems Vital Signs Vitals Vital Signs Date Time Temp Pulse Resp B/P Pulse Ox O2 Delivery O2 Flow Rate FiO2 04/17/17 07:41 99.1 70 20 136/62 97 04/17/17 00:22 2.0 04/15/17 08:19 Room Air Intake and Output 04/16/17 04/16/17 04/17/17 15:00 23:00 07:00 Intake Total 1780 ml 1200 ml Output Total 4400 ml Balance -2620 ml 1200 ml Results Result Diagram: 04/16/17 0505 04/16/17 0505 Results 24 hrs Laboratory Tests Test 04/16/17 17:07 04/16/17 20:28 04/16/17 21:31 04/17/17 08:09 Bedside Glucose 119 158 155 91 Test 04/17/17 13:03 Bedside Glucose 114 Medications Medications Current Medications Ondansetron HCl (Zofran Inj) 4 mg Q6H PRN IV NAUSEA AND/OR VOMITING Last administered on 04/13/17 06:23; Admin Dose 4 MG; Start 04/07/17 at 22:30 Acetaminophen (Tylenol Tab) 650 mg Q6H PRN PO PAIN LEVEL 1-3 OR FEVER Last administered on 04/12/17 17:35; Admin Dose 650 MG; Start 04/07/17 at 22:30 Morphine Sulfate (morphine) 2 mg Q4H PRN IV SEVERE PAIN LEVEL 7-10 Last administered on 04/17/17 06:28; Admin Dose 2 MG; Start 04/07/17 at 22:30 Docusate Sodium (Colace) 100 mg Q12H PRN PO CONSTIPATION Last administered on 05:52; Admin Dose 100 MG; Start 04/07/17 at 22:30 Pantoprazole (Protonix Tab) 40 mg DAILY@06 PO Last administered on 04/17/17 05: 32; Admin Dose 40 MG; Start 04/08/17 at 06:00 Amlodipine Besylate (Norvasc) 5 mg DAILY PO Last administered on 04/17/17 09:59 ; Admin Dose 5 MG; Start 04/08/17 at 09:00 Ascorbic Acid (Vitamin C) 500 mg DAILY PO Last administered on 04/17/17 09:59; Admin Dose 500 MG; Start 04/08/17 at 09:00 Aspirin (Halfprin) 81 mg DAILY PO ; Start 04/08/17 at 09:00; Status Future Hold Zinc Sulfate (Zinc Sulfate) 220 mg DAILY PO Last administered on 04/17/17 09:59 ; Admin Dose 220 MG; Start 04/08/17 at 09:00 Miscellaneous Information 1 ea NOTE XX ; Start 04/07/17 at 23:00 Glucose (Glutose) 15 gm Q15M PRN PO DECREASED GLUCOSE; Start 04/07/17 at 23:00 Glucose (Glutose) 22.5 gm Q15M PRN PO DECREASED GLUCOSE; Start 04/07/17 at 23: 00 Dextrose (D50w Syringe) 25 ml Q15M PRN IV DECREASED GLUCOSE; Start 04/07/17 at 23:00 Dextrose (D50w Syringe) 50 ml Q15M PRN IV DECREASED GLUCOSE; Start 04/07/17 at 23:00 Glucagon (Glucagen) 1 mg Q15M PRN IM DECREASED GLUCOSE; Start 04/07/17 at 23:00 Glucose (Glutose) 15 gm Q15M PRN BUCCAL DECREASED GLUCOSE; Start 04/07/17 at 23 :00 Diagnostic Test (Pha) (Accu-Chek) 1 ea 02 XX Last administered on 04/11/17 02: 19; Admin Dose 1 EA; Start 04/08/17 at 02:00 Collagenase (Santyl) 1 applic DAILY TOP Last administered on 04/17/17 10:06; Admin Dose 1 APPLIC; Start 04/09/17 at 16:00 Collagenase 1 applic 1 applic PRN PRN TOP WOUND CARE Last administered on 00:28; Admin Dose 1 APPLIC; Start 04/09/17 at 14:30 Ceftriaxone Sodium 50 ml @ 100 mls/hr Q24H IVPB Last administered on 04/16/17 16:02; Admin Dose 100 MLS/HR; Start 04/11/17 at 17:00 Fluconazole/ Sodium Chloride (Diflucan 100 Mg/ NS (Pmx)) 50 ml @ 50 mls/hr Q24H IVPB Last administered on 04/16/17 16:03; Admin Dose 50 MLS/HR; Start 04/12/17 at 16:00 Gabapentin (Neurontin) 300 mg TID PO Last administered on 04/17/17 13:04; Admin Dose 300 MG; Start 04/13/17 at 14:15 Lactulose (Enulose) 20 gm Q6H PRN PO CONSTIPATION Last administered on 23:19; Admin Dose 20 GM; Start 04/13/17 at 13:30 Insulin Detemir (Levemir) 20 unit BID@08,20 SC Last administered on 04/17/17 10 :05; Admin Dose 20 UNIT; Start 04/13/17 at 20:00 Prednisolone Acetate (Pred-Forte 1%) 1 drop BID RIGHT EYE Last administered on 04/17/17 09:59; Admin Dose 1 DROP; Start 04/13/17 at 21:30 Miscellaneous Information Patients own medicat... BID@10,16 XX ; Start 04/14/17 at 10:00 Simethicone (Mylicon) 80 mg Q4H PRN PO GAS PAINS Last administered on 04/15/17 08:15; Admin Dose 80 MG; Start 04/14/17 at 11:09 Epoetin Indra (Epogen (Esrd)) 8,000 units MoWeFr@17 SC Last administered on 17:09; Admin Dose 8,000 UNITS; Start 04/16/17 at 17:00 Lactobacillus Acidophilus/ Rhamnosus 1 cap 1 cap BID PO Last administered on 09:58; Admin Dose 1 CAP; Start 04/14/17 at 15:00 Vancomycin HCl (Vancocin) 250 ml @ 125 mls/hr Q5D IVPB Last administered on 22:18; Admin Dose 125 MLS/HR; Start 04/16/17 at 22:00 ALYX NAVARRO NP Apr 17, 2017 16:09
[2017-04-17] MEDS: FLUCONAZOLE 100 MG/NS (PMX) 50 ML IVPB SCH (16:35)
[2017-04-17] MEDS: CEFTRIAXONE 1 GM/50 ML (PMX) 50 ML IVPB SCH (18:29)
--- NOTE | 2017-04-17 18:41 | CONS ---
DATE OF ADMISSION: 04/07/2017 DATE OF CONSULTATION: 04/17/2017 VASCULAR SURGERY CONSULTATION Dear Doctors: Ms. Seth is a 61-year-old female who was admitted to [facility] with a plethora of medical conditions and as of recent has had significant wound infection of her left medial thigh as a complication of a varicose vein ablation involving the greater saphenous vein. At the same ti me, it seems the patient has also been admitted for evaluation of acute cystitis and has been starte d on antibiotic management. During her hospitalization, patient also has had a history of left heel gangrene that has developed over some time now that is being followed by our podiatry colleagues. At the moment, the patient is comfortable. Denies shortness of breath, chest pain, nausea, vomiting , fever or chills. The patient does have pain in her left inner thigh and denies any lower extremit y rest pain. REVIEW OF SYSTEMS: A 14-point review performed and negative except what is mentioned in the HPI. PAST MEDICAL HISTORY: Entails morbidly obese, BMI of 49, diabetes, hypertension, coronary artery di sease, end-stage renal disease, chronic venous insufficiency, bilateral lower extremity atherosclero sis. PAST SURGICAL HISTORY: Right chest wall catheter, right radiocephalic fistula, right upper extremit y tendon repair, right elbow surgery, carpal tunnel surgery. ALLERGIES: CODEINE. SOCIAL HISTORY: Denies alcohol, tobacco or illicit drug use. FAMILY HISTORY: Positive for hypertension. PHYSICAL EXAMINATION: GENERAL: She is alert and oriented x3, no apparent distress. HEENT: Right eye blindness, EOMI. Mucosa moist. NECK: Supple. No carotid bruit. PULMONARY: Clear to auscultation bilaterally. No crackles. CHEST: Right chest wall catheter clean and dry, no erythema. CARDIOVASCULAR: S1, S2 present. No murmurs. ABDOMEN: Soft, nontender, nondistended. Bowel sounds positive. Large truncal obesity. EXTREMITIES: Right lower extremity unable to palpate the femoral pulse secondary to body habitus, n onpalpable pedal pulse. Motor and sensory intact, although weak. Capillary refill about 4 seconds. Presence of lipodermatosclerosis. Left lower extremity unable to palpate the femoral pulse secondary to body habitus, nonpalpable peda l pulse. Motor and sensory seems to be intact. Capillary refill 3 to 4 seconds. Presence of lipod ermatosclerosis. Area of necrotic wound in the medial aspect of the thigh with surrounding erythema . ASSESSMENT AND PLAN: 1. End-stage renal disease: It seems the patient has had a history of a right radiocephalic fistul a creation that she has had for a long time now. The patient also mentions that she has had this ri ght chest wall catheter for over a year. It is unclear as to why the patient still has a PermCath c atheter. We will plan to obtain a new fistula ultrasound to evaluate if the fistula is a functionin g fistula without any stenosis. If no neointimal hyperplasia or flow-limiting stenosis identified, we will plan to remove the PermCath. Upon our discussion with the patient, she has agreed for the P ermCath to be removed once we have identified if there are any issues with her upper extremity fistu la. Further, it is unclear as the patient is right hand dominant and if she has had previous fistul a creations of the left upper extremity. 2. Bilateral lower extremity atherosclerosis. The patient has nonpalpable pedal pulses. We will p whitney to obtain bilateral lower extremity arterial studies to further delineate her lower extremity pe rfusion. Her left heel ulcer seems to be likely related to decubitus ulcer; however, we will plan t o delineate her findings with our arterial studies. Appreciate general surgery's evaluation. Optimize vascular status (BP meds, diet, nutrition, exercise, sugar control, antiplatelets). Recommend PT, OT and out of bed for the patient as she had mentioned she is somewhat ambulatory. Continue with antibiotics for now. Discussed findings, plan and management with the patient, she understands. Thank you for allowing us to partake in the care of your patient. Please call with any questions. Dictated By: JEWELS BRITTON/VICTORINA Conf#: [id number] DID#: [id number]
[2017-04-17 20:25] VITALS: BP 128/61; RESP 18
--- NOTE | 2017-04-17 23:33 | PN ---
Date/Time of Note Date/Time of Note DATE: 04/17/17 TIME: 23:32 Assessment/Plan Lines/Catheters IV Catheter Type (from [facility]): Saline Lock [place] in Place (from [facility]): No Assessment/Plan Problems: (1) Decubitus ulcer, heel (2) Kidney failure (3) Peripheral vascular disease Assessment/Plan Continue heel protectors. Will follow in house. Exam/Review of Systems Vital Signs Vitals Vital Signs Date Time Temp Pulse Resp B/P Pulse Ox O2 Delivery O2 Flow Rate FiO2 04/17/17 20:25 98.5 73 18 128/61 97 04/17/17 00:22 2.0 04/15/17 08:19 Room Air Intake and Output 04/16/17 04/16/17 04/17/17 15:00 23:00 07:00 Intake Total 1780 ml 1200 ml Output Total 4400 ml Balance -2620 ml 1200 ml Results Result Diagram: 04/16/17 0505 04/16/17 0505 LEELEE SOTOMAYOR DPM Apr 17, 2017 23:33
[2017-04-18] VITALS (9 sets, daily range): BP systolic 122–140; BP diastolic 60–84; PULSE 80–84; RESP 17–18
[2017-04-18] MEDS: ACCUCHECK AT 2AM (Patients on SS coverage) XX SCH (01:22)
[2017-04-18] MEDS: PANTOPRAZOLE (EC) 40 MG TAB PO SCH (05:08)
[2017-04-18 05:59] LABS: ADD SCAN DIFF NO
[2017-04-18 06:07] LABS: BASOPHIL # 0.1 10^3/ul (0.0-0.1); BASOPHILS % 0.4 % (0.0-2.0); EOSINOPHILS # 0.4 10^3/ul (0.0-0.5); EOSINOPHILS % 3.5 % (0.0-7.0); HEMOGLOBIN 7.8 g/dl (12.0-16.0); LYMPHOCYTES # 2.1 10^3/ul (0.8-2.9); LYMPHOCYTES % 16.6 % (15.0-51.0); MEAN CORPUSCULAR HEMOGLOBIN 29.2 pg (29.0-33.0); MEAN CORPUSCULAR VOLUME 97.4 fl (82.0-101.0); MEAN PLATELET VOLUME 9.5 fl (7.4-10.4); MONOCYTE # 1.3 10^3/ul (0.3-0.9); MONOCYTES % 10.3 % (0.0-11.0); NEUTROPHIL # 8.5 10^3/ul (1.6-7.5); NEUTROPHILS % 68.2 % (39.0-77.0); PLATELET COUNT 401 10^3/UL (140-415); RED BLOOD COUNT 2.67 10^6/ul (4.20-5.40); RED CELL DISTRIBUTION WIDTH 14.9 % (11.5-14.5); WHITE BLOOD COUNT 12.4 10^3/ul (4.8-10.8)
[2017-04-18 06:25] LABS: MAGNESIUM 2.8 mg/dl (1.7-2.5)
[2017-04-18 06:44] LABS: ALBUMIN 3.1 g/dl (3.3-4.9); ALBUMIN/GLOBULIN RATIO 0.96; CALCIUM 8.9 mg/dl (8.4-10.2); CREATININE 4.74 mg/dl (0.44-1.00); POTASSIUM 3.9 mmol/L (3.5-5.1); TOTAL PROTEIN 6.3 g/dl (6.1-8.1)
[2017-04-18] MEDS: INSULIN ASPART [NOVOLOG] 3 ML PEN SC SCH ×4 (08:00→20:31)
--- NOTE | 2017-04-18 08:05 | PN ---
DATE: 04/18/2017 SUBJECTIVE: The patient did have hematuria and urinary tract infection. The patient had an indwell ing [place] catheter that was removed, and she has been voiding and the urine has been clear. OBJECTIVE FINDINGS: VITAL SIGNS: Her temperature is 98.5, pulse is 73, respirations 18, blood pressure 128/61. ABDOMEN: Obese. No abdominal mass palpable. LABORATORY: CBC shows a white count of 12.4, hemoglobin 7.8, hematocrit 26.0. The BUN is 29, creat inine 4.74. The patient is on hemodialysis. The urine cytology that was done shows no malignancy. IMPRESSION: Urinary tract infection that caused the hematuria and that has been treated and the maria antonia ent now has clear urine. Dictated By: KENISHA BETANCOURT/VICTORINA Conf#: [id number] DID#: [id number]
--- NOTE | 2017-04-18 08:21 | RADRPT ---
PROCEDURE: US left upper extremity AV fistula/graft CLINICAL INDICATION: End-stage renal disease, poorly functioning AV fistula, pain TECHNIQUE: Multiple sonographic images of the right upper extremity arteries, veins and hemodialys is access was obtained utilizing grayscale, color-flow, compressive sonography and doppler imaging. The images were reviewed on a PACS workstation. COMPARISON: None. FINDINGS: There is a right upper extremity AV fistula which is widely patent. Velocities, and measurements were obtained: Upper outflow vein: 72 cm/s; flow volume: 220 ml/min; diameter 4 mm Mid outflow vein: 68 cm/s; flow volume: 177 ml/min; diameter 4 mm Lower outflow vein: 116 cm/s; flow volume: 875 ml/min; diameter 7 mm Arterial anastomosis: 291 cm/s; flow volume: 292 ml/min; diameter 2.5 mm Inflow artery : 187 cm/s IMPRESSION: Unremarkable right upper extremity hemodialysis access ultrasound. RPTAT: AA .Steffen Trimble MD, MD Date Time Electronically viewed and signed by .Steffen Trimble MD, MD on 04/18/2017 08:20 .S/
[2017-04-18] MEDS: ZINC SULFATE 220 MG CAP PO SCH (08:32)
[2017-04-18] MEDS: ASCORBIC ACID 500 MG TAB PO SCH (08:32)
[2017-04-18] MEDS: LACTOBACILLUS RHAMNOSUS CAP PO SCH ×2 (08:32→20:30)
[2017-04-18] MEDS: GABAPENTIN 300 MG CAP PO SCH ×3 (08:33→20:30)
[2017-04-18] MEDS: AMLODIPINE 5 MG TAB PO SCH (08:33)
[2017-04-18] MEDS: PREDNISOLONE ACET 1% 5 ML OPH RIGHT EYE SCH ×2 (08:33→20:30)
[2017-04-18] MEDS: COLLAGENASE 30 GM TUBE TOP SCH (08:36)
[2017-04-18] MEDS: CALCIUM ACETATE 667 MG CAP PO SCH ×3 (08:36→17:17)
[2017-04-18] MEDS: INSULIN DETEMIR [LEVEMIR] 3ML CART SC SCH ×2 (08:38→20:33)
--- NOTE | 2017-04-18 08:46 | RADRPT ---
PROCEDURE: US Lower extremity arterial, bilateral CLINICAL INDICATION: Ulcers TECHNIQUE: Multiple sonographic images of the bilateral lower extremity arteries was obtained util izing grayscale, color-flow and doppler imaging. The images were reviewed on a PACS workstation. COMPARISON: None. FINDINGS: There is no significant plaque. Velocities and waveforms were obtained as described below. RIGHT LEG: Right common femoral artery: 102 cm/s; monophasic waveforms Right profunda femoral artery: 81 cm/s; monophasic waveforms Right proximal superficial femoral artery: 121 cm/s; monophasic waveforms Right mid superficial femoral artery: 171 cm/s; monophasic waveforms Right distal superficial femoral artery: 108 cm/s; monophasic waveforms Right popliteal artery: 77 cm/s; monophasic waveforms Right posterior tibial artery: 91 cm/s; monophasic waveforms Right dorsalis pedis artery: 74 cm/s; monophasic waveforms Right DEVANG: Calcified LEFT LEG: Left common femoral artery: 124 cm/s; monophasic waveforms Left profunda femoral artery: 83 cm/s; monophasic waveforms Left proximal superficial femoral artery: 124 cm/s; monophasic waveforms Left mid superficial femoral artery: 116 cm/s; monophasic waveforms Left distal superficial femoral artery: 103 cm/s; monophasic waveforms Left popliteal artery: 93 cm/s; monophasic waveforms Left posterior tibial artery: 70 cm/s; monophasic waveforms Left dorsalis pedis artery: 61 cm/s; monophasic waveforms Left DEVANG: Calcified RPTAT: AA IMPRESSION: Diffusely monophasic wave forms in the arteries of bilateral lower extremities without evidence of o cclusion are hemodynamically significant stenosis. Findings suggest aortoiliac occlusive disease up stream. A CTA runoff study can be obtained for further evaluation. Physician Haley Date Time Electronically viewed and signed by Physician Haley on 04/18/2017 08:46 /
[2017-04-18] MEDS: morphine 2 MG INJ IV PRN (09:44)
--- NOTE | 2017-04-18 10:46 | CONS ---
Date/Time of Note Date/Time of Note DATE: 04/18/17 TIME: 10:44 Assessment/Plan Assessment/Plan Chief Complaint/Hosp Course - [place] [facility] [place] - ANEMIA - HEMATURIA / BLEEDING - DM - HYPERTENSION - RECENT Hx OF LEG CELLULITIS ( ON ABX ) - HIGH PHOS. - HYPONATREMIA PLAN: Continue with HD as planned Continue with EPOGEN Check Iron status Her AVF has not been cannulated successfully & a followup has been made as out patient for vasculkar evaluation ( her arterial side collapses ) Continue with Abx Urology plan noted Problems: Consultation Date/Type/Reason Admit Date/Time April 07, 2017 at 21:56 Initial Consult Date 04/09/17 Type of Consultation: NEPHROLOGY Reason for Consultation - ESRD Referring Provider: BAL MAYER MD 24 HR Interval Summary Constitutional: improved, no complaints Exam/Review of Systems Vital Signs Vitals Vital Signs Date Time Temp Pulse Resp B/P Pulse Ox O2 Delivery O2 Flow Rate FiO2 04/18/17 08:08 99.6 67 17 122/60 95 04/17/17 20:00 Nasal Cannula 2.0 Intake and Output 04/17/17 04/17/17 04/18/17 15:00 23:00 07:00 Intake Total 1140 ml 400 ml Balance 1140 ml 400 ml Exam Constitutional: alert, oriented Psych: no complaints Head: normocephalic Respiratory: crackles/rales Cardiovascular: edema, regular rate and rhythm, systolic murmur Gastrointestinal: soft Results Result Diagram: 04/18/17 0425 04/18/17 0425 Results 24 hrs Laboratory Tests Test 04/17/17 13:03 04/17/17 17:39 04/17/17 20:33 04/18/17 04:25 Bedside Glucose 114 116 115 White Blood Count 12.4 #H Red Blood Count 2.67 L Hemoglobin 7.8 L Hematocrit 26.0 L Mean Corpuscular Volume 97.4 Mean Corpuscular Hemoglobin 29.2 Mean Corpuscular Hemoglobin Concent 30.0 L Red Cell Distribution Width 14.9 H Platelet Count 401 Mean Platelet Volume 9.5 Neutrophils % 68.2 Lymphocytes % 16.6 Monocytes % 10.3 Eosinophils % 3.5 Basophils % 0.4 Nucleated Red Blood Cells % 0.0 Neutrophils # 8.5 H Lymphocytes # 2.1 Monocytes # 1.3 H Eosinophils # 0.4 Basophils # 0.1 Nucleated Red Blood Cells # 0.0 Sodium Level 136 Potassium Level 3.9 Chloride Level 95 L Carbon Dioxide Level 31 Anion Gap 14 Blood Urea Nitrogen 29 H Creatinine 4.74 H Glucose Level 79 # Calcium Level 8.9 Phosphorus Level 4.0 Magnesium Level 2.8 H Total Bilirubin 0.0 L Direct Bilirubin 0.00 Indirect Bilirubin 0.0 Aspartate Amino Transf (AST/SGOT) 14 L Alanine Aminotransferase (ALT/SGPT) 19 Alkaline Phosphatase 123 H Total Protein 6.3 Albumin 3.1 L Globulin 3.20 Albumin/Globulin Ratio 0.96 Test 04/18/17 08:25 Bedside Glucose 89 Medications Medications Current Medications Ondansetron HCl (Zofran Inj) 4 mg Q6H PRN IV NAUSEA AND/OR VOMITING Last administered on 04/13/17 06:23; Admin Dose 4 MG; Start 04/07/17 at 22:30 Acetaminophen (Tylenol Tab) 650 mg Q6H PRN PO PAIN LEVEL 1-3 OR FEVER Last administered on 04/12/17 17:35; Admin Dose 650 MG; Start 04/07/17 at 22:30 Morphine Sulfate (morphine) 2 mg Q4H PRN IV SEVERE PAIN LEVEL 7-10 Last administered on 04/18/17 09:44; Admin Dose 2 MG; Start 04/07/17 at 22:30 Docusate Sodium (Colace) 100 mg Q12H PRN PO CONSTIPATION Last administered on 05:52; Admin Dose 100 MG; Start 04/07/17 at 22:30 Pantoprazole (Protonix Tab) 40 mg DAILY@06 PO Last administered on 04/18/17 05: 08; Admin Dose 40 MG; Start 04/08/17 at 06:00 Amlodipine Besylate (Norvasc) 5 mg DAILY PO Last administered on 04/18/17 08:33 ; Admin Dose 5 MG; Start 04/08/17 at 09:00 Ascorbic Acid (Vitamin C) 500 mg DAILY PO Last administered on 04/18/17 08:32; Admin Dose 500 MG; Start 04/08/17 at 09:00 Aspirin (Halfprin) 81 mg DAILY PO ; Start 04/08/17 at 09:00; Status Future Hold Zinc Sulfate (Zinc Sulfate) 220 mg DAILY PO Last administered on 04/18/17 08:32 ; Admin Dose 220 MG; Start 04/08/17 at 09:00 Miscellaneous Information 1 ea NOTE XX ; Start 04/07/17 at 23:00 Glucose (Glutose) 15 gm Q15M PRN PO DECREASED GLUCOSE; Start 04/07/17 at 23:00 Glucose (Glutose) 22.5 gm Q15M PRN PO DECREASED GLUCOSE; Start 04/07/17 at 23: 00 Dextrose (D50w Syringe) 25 ml Q15M PRN IV DECREASED GLUCOSE; Start 04/07/17 at 23:00 Dextrose (D50w Syringe) 50 ml Q15M PRN IV DECREASED GLUCOSE; Start 04/07/17 at 23:00 Glucagon (Glucagen) 1 mg Q15M PRN IM DECREASED GLUCOSE; Start 04/07/17 at 23:00 Glucose (Glutose) 15 gm Q15M PRN BUCCAL DECREASED GLUCOSE; Start 04/07/17 at 23 :00 Diagnostic Test (Pha) (Accu-Chek) 1 ea 02 XX Last administered on 04/11/17 02: 19; Admin Dose 1 EA; Start 04/08/17 at 02:00 Collagenase (Santyl) 1 applic DAILY TOP Last administered on 04/18/17 08:36; Admin Dose 1 APPLIC; Start 04/09/17 at 16:00 Collagenase 1 applic 1 applic PRN PRN TOP WOUND CARE Last administered on 00:28; Admin Dose 1 APPLIC; Start 04/09/17 at 14:30 Ceftriaxone Sodium 50 ml @ 100 mls/hr Q24H IVPB Last administered on 04/17/17 18:29; Admin Dose 100 MLS/HR; Start 04/11/17 at 17:00 Fluconazole/ Sodium Chloride (Diflucan 100 Mg/ NS (Pmx)) 50 ml @ 50 mls/hr Q24H IVPB Last administered on 04/17/17 16:35; Admin Dose 50 MLS/HR; Start 04/12/17 at 16:00 Gabapentin (Neurontin) 300 mg TID PO Last administered on 04/18/17 08:33; Admin Dose 300 MG; Start 04/13/17 at 14:15 Lactulose (Enulose) 20 gm Q6H PRN PO CONSTIPATION Last administered on 23:19; Admin Dose 20 GM; Start 04/13/17 at 13:30 Insulin Detemir (Levemir) 20 unit BID@08,20 SC Last administered on 04/18/17 08 :38; Admin Dose 20 UNIT; Start 04/13/17 at 20:00 Prednisolone Acetate (Pred-Forte 1%) 1 drop BID RIGHT EYE Last administered on 04/18/17 08:33; Admin Dose 1 DROP; Start 04/13/17 at 21:30 Miscellaneous Information Patients own medicat... BID@10,16 XX ; Start 04/14/17 at 10:00 Simethicone (Mylicon) 80 mg Q4H PRN PO GAS PAINS Last administered on 04/15/17 08:15; Admin Dose 80 MG; Start 04/14/17 at 11:09 Epoetin Indra (Epogen (Esrd)) 8,000 units MoWeFr@17 SC Last administered on 17:09; Admin Dose 8,000 UNITS; Start 04/16/17 at 17:00 Lactobacillus Acidophilus/ Rhamnosus 1 cap 1 cap BID PO Last administered on 08:32; Admin Dose 1 CAP; Start 04/14/17 at 15:00 Vancomycin HCl (Vancocin) 250 ml @ 125 mls/hr Q5D IVPB Last administered on 22:18; Admin Dose 125 MLS/HR; Start 04/16/17 at 22:00 ANIBAL ALMANZAR MD Apr 18, 2017 10:46
--- NOTE | 2017-04-18 15:20 | CONS ---
Date/Time of Note Date/Time of Note DATE: 04/18/17 TIME: 15:18 Assessment/Plan Assessment/Plan Chief Complaint/Hosp Course SUBJECTIVE: No acute changes. Alert, feels better. No fevers and no diarrhea. INDWELLINGS: Right chest PermCath and left upper extremity AV fistula. ANTIMICROBIALS: 1. Fluconazole 2. Rocephin. 3. IV vancomycin. PHYSICAL EXAMINATION: GENERAL: This is a morbidly obese, elderly woman who is alert, in no distress. HEENT: Head atraumatic, normocephalic. Sclerae anicteric. Buccal mucosa pink. NECK: Obese. CHEST: Rise symmetrical. Breath sounds clear. HEART: S1, S2. ABDOMEN: Soft. Bowel tones present. No tenderness over suprapubic area. EXTREMITIES: No cyanosis. ASSESSMENT: 1. Systemic inflammatory response syndrome. 2. Left upper thigh chronic necrotic wound, status post debridement 04/16/17, pathology revealed acute inflammation. 3. Status post urinary tract infection and hematuria. 4. End-stage renal disease, hemodialysis dependent. 5. Chronic pain syndrome. 6. Diabetes. 7. Morbid obesity. PLAN: The patient remains clinically and hemodynamically stable, pending wound cx, continue abx. Follow recommendations of consultants. DW staff Problems: Consultation Date/Type/Reason Admit Date/Time April 07, 2017 at 21:56 Initial Consult Date 04/11/17 Type of Consultation: ID Referring Provider: BAL MAYER MD Exam/Review of Systems Vital Signs Vitals Vital Signs Date Time Temp Pulse Resp B/P Pulse Ox O2 Delivery O2 Flow Rate FiO2 04/18/17 12:30 84 04/18/17 12:30 16 04/18/17 08:08 99.6 122/60 95 04/17/17 20:00 Nasal Cannula 2.0 Intake and Output 04/17/17 04/17/17 04/18/17 15:00 23:00 07:00 Intake Total 1140 ml 400 ml Balance 1140 ml 400 ml Results Result Diagram: 04/18/17 0425 04/18/17 0425 Results 24 hrs Laboratory Tests Test 04/17/17 17:39 04/17/17 20:33 04/18/17 04:25 04/18/17 08:25 Bedside Glucose 116 115 89 White Blood Count 12.4 #H Red Blood Count 2.67 L Hemoglobin 7.8 L Hematocrit 26.0 L Mean Corpuscular Volume 97.4 Mean Corpuscular Hemoglobin 29.2 Mean Corpuscular Hemoglobin Concent 30.0 L Red Cell Distribution Width 14.9 H Platelet Count 401 Mean Platelet Volume 9.5 Neutrophils % 68.2 Lymphocytes % 16.6 Monocytes % 10.3 Eosinophils % 3.5 Basophils % 0.4 Nucleated Red Blood Cells % 0.0 Neutrophils # 8.5 H Lymphocytes # 2.1 Monocytes # 1.3 H Eosinophils # 0.4 Basophils # 0.1 Nucleated Red Blood Cells # 0.0 Sodium Level 136 Potassium Level 3.9 Chloride Level 95 L Carbon Dioxide Level 31 Anion Gap 14 Blood Urea Nitrogen 29 H Creatinine 4.74 H Glucose Level 79 # Calcium Level 8.9 Phosphorus Level 4.0 Magnesium Level 2.8 H Total Bilirubin 0.0 L Direct Bilirubin 0.00 Indirect Bilirubin 0.0 Aspartate Amino Transf (AST/SGOT) 14 L Alanine Aminotransferase (ALT/SGPT) 19 Alkaline Phosphatase 123 H Total Protein 6.3 Albumin 3.1 L Globulin 3.20 Albumin/Globulin Ratio 0.96 Test 04/18/17 13:14 Bedside Glucose 104 Medications Medications Current Medications Ondansetron HCl (Zofran Inj) 4 mg Q6H PRN IV NAUSEA AND/OR VOMITING Last administered on 04/13/17 06:23; Admin Dose 4 MG; Start 04/07/17 at 22:30 Acetaminophen (Tylenol Tab) 650 mg Q6H PRN PO PAIN LEVEL 1-3 OR FEVER Last administered on 04/12/17 17:35; Admin Dose 650 MG; Start 04/07/17 at 22:30 Morphine Sulfate (morphine) 2 mg Q4H PRN IV SEVERE PAIN LEVEL 7-10 Last administered on 04/18/17 09:44; Admin Dose 2 MG; Start 04/07/17 at 22:30 Docusate Sodium (Colace) 100 mg Q12H PRN PO CONSTIPATION Last administered on 05:52; Admin Dose 100 MG; Start 04/07/17 at 22:30 Pantoprazole (Protonix Tab) 40 mg DAILY@06 PO Last administered on 04/18/17 05: 08; Admin Dose 40 MG; Start 04/08/17 at 06:00 Amlodipine Besylate (Norvasc) 5 mg DAILY PO Last administered on 04/18/17 08:33 ; Admin Dose 5 MG; Start 04/08/17 at 09:00 Ascorbic Acid (Vitamin C) 500 mg DAILY PO Last administered on 04/18/17 08:32; Admin Dose 500 MG; Start 04/08/17 at 09:00 Aspirin (Halfprin) 81 mg DAILY PO ; Start 04/08/17 at 09:00; Status Future Hold Zinc Sulfate (Zinc Sulfate) 220 mg DAILY PO Last administered on 04/18/17 08:32 ; Admin Dose 220 MG; Start 04/08/17 at 09:00 Miscellaneous Information 1 ea NOTE XX ; Start 04/07/17 at 23:00 Glucose (Glutose) 15 gm Q15M PRN PO DECREASED GLUCOSE; Start 04/07/17 at 23:00 Glucose (Glutose) 22.5 gm Q15M PRN PO DECREASED GLUCOSE; Start 04/07/17 at 23: 00 Dextrose (D50w Syringe) 25 ml Q15M PRN IV DECREASED GLUCOSE; Start 04/07/17 at 23:00 Dextrose (D50w Syringe) 50 ml Q15M PRN IV DECREASED GLUCOSE; Start 04/07/17 at 23:00 Glucagon (Glucagen) 1 mg Q15M PRN IM DECREASED GLUCOSE; Start 04/07/17 at 23:00 Glucose (Glutose) 15 gm Q15M PRN BUCCAL DECREASED GLUCOSE; Start 04/07/17 at 23 :00 Diagnostic Test (Pha) (Accu-Chek) 1 ea 02 XX Last administered on 04/11/17 02: 19; Admin Dose 1 EA; Start 04/08/17 at 02:00 Collagenase (Santyl) 1 applic DAILY TOP Last administered on 04/18/17 08:36; Admin Dose 1 APPLIC; Start 04/09/17 at 16:00 Collagenase 1 applic 1 applic PRN PRN TOP WOUND CARE Last administered on 00:28; Admin Dose 1 APPLIC; Start 04/09/17 at 14:30 Ceftriaxone Sodium 50 ml @ 100 mls/hr Q24H IVPB Last administered on 04/17/17 18:29; Admin Dose 100 MLS/HR; Start 04/11/17 at 17:00 Fluconazole/ Sodium Chloride (Diflucan 100 Mg/ NS (Pmx)) 50 ml @ 50 mls/hr Q24H IVPB Last administered on 04/17/17 16:35; Admin Dose 50 MLS/HR; Start 04/12/17 at 16:00 Gabapentin (Neurontin) 300 mg TID PO Last administered on 04/18/17 13:15; Admin Dose 300 MG; Start 04/13/17 at 14:15 Lactulose (Enulose) 20 gm Q6H PRN PO CONSTIPATION Last administered on 23:19; Admin Dose 20 GM; Start 04/13/17 at 13:30 Insulin Detemir (Levemir) 20 unit BID@08,20 SC Last administered on 04/18/17 08 :38; Admin Dose 20 UNIT; Start 04/13/17 at 20:00 Prednisolone Acetate (Pred-Forte 1%) 1 drop BID RIGHT EYE Last administered on 04/18/17 08:33; Admin Dose 1 DROP; Start 04/13/17 at 21:30 Miscellaneous Information Patients own medicat... BID@10,16 XX ; Start 04/14/17 at 10:00 Simethicone (Mylicon) 80 mg Q4H PRN PO GAS PAINS Last administered on 04/15/17 08:15; Admin Dose 80 MG; Start 04/14/17 at 11:09 Epoetin Indra (Epogen (Esrd)) 8,000 units MoWeFr@17 SC Last administered on 17:09; Admin Dose 8,000 UNITS; Start 04/16/17 at 17:00 Lactobacillus Acidophilus/ Rhamnosus 1 cap 1 cap BID PO Last administered on 08:32; Admin Dose 1 CAP; Start 04/14/17 at 15:00 Vancomycin HCl (Vancocin) 250 ml @ 125 mls/hr Q5D IVPB Last administered on 22:18; Admin Dose 125 MLS/HR; Start 04/16/17 at 22:00 ALYX NAVARRO NP Apr 18, 2017 15:20
[2017-04-18] MEDS: FLUCONAZOLE 100 MG/NS (PMX) 50 ML IVPB SCH (15:40)
--- NOTE | 2017-04-18 16:41 | PN ---
Date/Time of Note Date/Time of Note DATE: 04/18/17 TIME: 16:18 Assessment/Plan Lines/Catheters IV Catheter Type (from [facility]): PERMACATH [place] in Place (from [facility]): No Assessment/Plan Chief Complaint/Hosp Course -End-stage renal disease: It seems the patient has a right radiocephalic fistula and upon U/S no flow limiting stenosis however inadequate maturation ( low flow volume, small diameter). Have spoken with the patient in regards to the findings and she would like to undergo a fistulogram while inpatient as she "no longer wants to follow up with her previous surgeon after what happened to her leg". Will schedule for Friday -In regards to her PermCath, will evaluate for central stenosis with scheduled fistulogram and discuss her HD sessions with our nephrology colleagues prior for catheter removal once tolerating adequate dialysis -Bilateral lower extremity atherosclerosis & LLE ulcer: The patient has developed necrotic thigh wound post ablation, in addition to her heel ulcer and nonpalpable pedal pulses would recommend obtaining CT angiography to better delineate her aortoiliac perfusion as she has bilateral monophasic waveforms of the lower extremities on ultrasound. -Continue with wound care per our multidisciplinary team recommendations -Recommend Heel Medix boots -Optimize vascular status (BP meds, diet, nutrition, exercise, sugar control, antiplatelets). -Recommend PT, OT and out of bed for the patient as she had mentioned she is somewhat ambulatory. -Discussed findings, plan and management with the patient, she understands. -Thank you for allowing us to partake in the care of your patient. Please call with any questions. Problems: Subjective 24 Hr Interval Summary no new vascular events overnight Exam/Review of Systems Vital Signs Vitals Vital Signs Date Time Temp Pulse Resp B/P Pulse Ox O2 Delivery O2 Flow Rate FiO2 04/18/17 12:30 84 04/18/17 12:30 16 04/18/17 08:08 99.6 122/60 95 04/17/17 20:00 Nasal Cannula 2.0 Intake and Output 04/17/17 04/17/17 04/18/17 15:00 23:00 07:00 Intake Total 1140 ml 400 ml Balance 1140 ml 400 ml Exam Free Text/Dictation GENERAL: Alert and oriented x3, PULMONARY: Clear to auscultation bilaterally, Right chest wall catheter clean and dry, CARDIOVASCULAR: S1, S2 present. ABDOMEN: Soft, nontender, nondistended. Bowel sounds positive. Large truncal obesity. EXTREMITIES: -Right lower extremity unable to palpate the femoral pulse secondary to body habitus, nonpalpable pedal pulse. Motor and sensory intact, although weak. Capillary refill about 4 seconds. Presence of lipodermatosclerosis. -Left lower extremity unable to palpate the femoral pulse secondary to body habitus, nonpalpable pedal pulse. Motor and sensory seems to be intact. Capillary refill 3 to 4 seconds. Presence of lipodermatosclerosis. Area of necrotic wound in the medial aspect of the thigh with surrounding erythema. -RUE: Palpable brachial pulse, motor/sensory intact, wrist fistula with bruit and thrill present - weak, surgical scar well healed, cap refill 3 seconds Results Result Diagram: 04/18/17 0425 04/18/17 0425 JEWELS OSORIO MD Apr 18, 2017 16:41
--- NOTE | 2017-04-18 16:55 | PN ---
DATE: 04/18/2017 SUBJECTIVE: I appreciate Dr. Crispin Walton, vascular surgeon. Case discussed in detail. The pat ient definitely has vascular disease as the patient's arterial ultrasound did show diffuse monophasi c waveforms in the arteries of the bilateral lower extremities. Findings suggest an aortoiliac occl usive disease upstream. A CT angio runoff study can be obtained for further evaluation. The patien t is to undergo further testing. As the patient unfortunately has a left medial thigh wound and lef t heel wound, we have to see if we can improve circulation for better healing. The patient overall with no complaints today. OBJECTIVE: VITAL SIGNS: Still low-grade temperature at 99.6, pulse is 82, respirations 16, blood pressure 122/ 60, saturation 95% on 2 liters. GENERAL: The patient is in no acute distress. HEENT: The patient is morbidly obese. The patient is pale. CARDIOVASCULAR: S1 and S2, regular rate. LUNGS: Clear. ABDOMEN: Soft, obese. EXTREMITIES: Left heel wound, left medial thigh wound. Otherwise, no edema. LABORATORY DATA: White count actually better at 12.4, hemoglobin 7.8, low, hematocrit 26, platelet count 401, neutrophils 68%, lymphocytes 17%. Chemistry: Sodium is 136, potassium 3.9, chloride 95, bicarbonate 31, BUN is 29, creatinine is 4.74, glucose of 79. Last glucose level was 104. AST 14, ALT 19, alkaline phosphatase 123. TSH was 1.1. Recent urine culture shows Ruth Ann albicans. MEDICATIONS: Include 1. Vancomycin dose per pharmacy. 2. Epogen 8000 units every Friday, Friday, and Friday. 3. Culturelle b.i.d. 4. Simethicone p.r.n. 5. ____ eyedrops b.i.d. 6. Levemir 20 units twice a day. 7. Neurontin 300 t.i.d. 8. Lactulose p.r.n. 9. Diflucan IV dose per pharmacy. 10. Cefepime 1 gram q. 24 hours. 11. Santyl daily and p.r.n. 12. Norvasc 5 daily. 13. Vitamin C 500 mg daily. 14. Zinc sulfate 220 daily. 15. PhosLo 1.3 grams t.i.d. 16. Protonix 40 mg daily. 17. Vancomycin dose per pharmacy. 18. Hypoglycemia protocol as directed. ASSESSMENT AND PLAN: This is an unfortunate 61-year-old morbidly obese female with history of diabetes mellitus, end-stage renal disease, hypertension, chronic left thigh wound, who presente d with gross hematuria secondary to cystitis, treated with antibiotics. Bleeding stopped status pos t transfusion secondary to severe anemia. 1. Diabetes mellitus. Continue current regimen of Levemir. Glucose levels are controlled. 2. Left heel decubitus wound, left medial thigh wound. Continue wound care, offloading, heel prote ctor, vitamins, nutrition support. 3. Peripheral vascular disease. The patient definitely has vascular problems likely affecting the left lower extremity. She has developing wounds. The patient to undergo a CT angiogram. May need antral vascular stenting. 4. Hypertension, stable. Titrate medication as needed. 5. Physical therapy as tolerated. 6. Constipation. Continue stool softeners. 7. Remains on the above antibiotics. ID is following. Urine culture shows both E. coli and Candid a albicans. Long-term prognosis is guarded as the patient's BMI is 49. Weight loss is a must for her to improve . We will follow. Dictated By: BAL BERG/VICTORINA Conf#: [id number] DID#: [id number]
[2017-04-18] MEDS: CEFTRIAXONE 1 GM/50 ML (PMX) 50 ML IVPB SCH (17:18)
[2017-04-18] MEDS: EPOETIN 4000 UNITS/1 ML INJ (ESRD) SC SCH (17:25)
[2017-04-19] MEDS: ACCUCHECK AT 2AM (Patients on SS coverage) XX SCH (02:00)
[2017-04-19] MEDS: PANTOPRAZOLE (EC) 40 MG TAB PO SCH (05:09)
[2017-04-19 06:11] LABS: ADD SCAN DIFF NO
[2017-04-19 06:32] LABS: BASOPHIL # 0.1 10^3/ul (0.0-0.1); BASOPHILS % 0.4 % (0.0-2.0); EOSINOPHILS # 0.5 10^3/ul (0.0-0.5); HEMATOCRIT 28.7 % (37.0-47.0); HEMOGLOBIN 8.6 g/dl (12.0-16.0); LYMPHOCYTES % 17.1 % (15.0-51.0); MEAN CORPUSCULAR HEMOGLOBIN 28.6 pg (29.0-33.0); MEAN CORPUSCULAR VOLUME 95.3 fl (82.0-101.0); MEAN PLATELET VOLUME 9.7 fl (7.4-10.4); MONOCYTE # 1.1 10^3/ul (0.3-0.9); MONOCYTES % 9.6 % (0.0-11.0); NEUTROPHIL # 7.8 10^3/ul (1.6-7.5); PLATELET COUNT 409 10^3/UL (140-415); RED BLOOD COUNT 3.01 10^6/ul (4.20-5.40); RED CELL DISTRIBUTION WIDTH 14.6 % (11.5-14.5); WHITE BLOOD COUNT 11.5 10^3/ul (4.8-10.8)
[2017-04-19 07:00] LABS: CALCIUM 8.9 mg/dl (8.4-10.2); CREATININE 3.84 mg/dl (0.44-1.00)
[2017-04-19] MEDS ORDERED: LIDOCAINE 1% (MPF) 5 ML VIAL SC ONE ×2 (07:00→15:00)
[2017-04-19 07:45] VITALS: BP 140/62; RESP 18
[2017-04-19] MEDS: INSULIN ASPART [NOVOLOG] 3 ML PEN SC SCH ×4 (08:00→20:45)
[2017-04-19] MEDS: CALCIUM ACETATE 667 MG CAP PO SCH ×3 (08:49→17:44)
[2017-04-19] MEDS: AMLODIPINE 5 MG TAB PO SCH (08:49)
[2017-04-19] MEDS: ZINC SULFATE 220 MG CAP PO SCH (08:49)
[2017-04-19] MEDS: GABAPENTIN 300 MG CAP PO SCH ×3 (08:49→20:45)
[2017-04-19] MEDS: PREDNISOLONE ACET 1% 5 ML OPH RIGHT EYE SCH ×2 (08:49→22:07)
[2017-04-19] MEDS: ASCORBIC ACID 500 MG TAB PO SCH (08:49)
[2017-04-19] MEDS: LACTOBACILLUS RHAMNOSUS CAP PO SCH ×2 (08:49→20:45)
[2017-04-19] MEDS: COLLAGENASE 30 GM TUBE TOP SCH ×2 (09:39→22:08)
[2017-04-19] MEDS: INSULIN DETEMIR [LEVEMIR] 3ML CART SC SCH ×2 (10:06→20:47)
[2017-04-19] MEDS ORDERED: ONDANSETRON 4 MG TAB PO PRN (10:30)
[2017-04-19 12:09] LABS: MAGNESIUM 2.9 mg/dl (1.7-2.5); PHOSPHORUS 3.6 mg/dl (2.5-4.9)
--- NOTE | 2017-04-19 15:10 | PN ---
DATE: 04/19/2017 The patient does not have an IV access. The patient is complaining of pain. She does not want to b justin key. We are going to order a PICC line for her. Case discussed with ID as well. The patient c ontinues to have just a low-grade fever. PHYSICAL EXAMINATION: VITAL SIGNS: T-max 99.2, temperature is 98, pulse 65, respirations 18, blood pressure 140/62, satur ation 98% on 2 liters. GENERAL: The patient is in no acute distress, morbidly obese, pale. CARDIOVASCULAR: S1, S2, regular rate. LUNGS: Clear. ABDOMEN: Soft, nontender. EXTREMITIES: Left medial thigh wound and left heel wound. LABORATORY DATA: White count is 11.5, hemoglobin 8.6, hematocrit 29, platelet count 49 with normal differential. Chemistry: Sodium 133, potassium 4.0, chloride 97, bicarbonate 30, BUN is 22, creati nine 3.84, glucose of 106. Last glucose levels are good at 136/135/108. MEDICATIONS: Reviewed: 1. Morphine 10 mg orally q.3h. p.r.n. 2. Zofran 4 mg orally q.4h. p.r.n. 3. Vancomycin dosed per pharmacy. 4. Epogen 8000 q. Friday, Friday, Friday. 5. Culturelle b.i.d. 6. Simethicone p.r.n. 7. Pred Forte b.i.d. 8. Levemir 20 units twice a day. 9. ____ t.i.d. 10. Lactulose p.r.n. 11. Diflucan 100 IV daily. 12. Rocephin 1 gram daily. 13. Santyl daily. 14. Norvasc 5 mg daily. 15. Vitamin C 500 mg daily. 15. Zinc sulfate 220 daily. 16. Insulin aspart per sliding scale. 17. PhosLo 1.3 grams t.i.d. 18. Protonix 40 mg daily. 19. Vancomycin dose per pharmacy. 20. Hypoglycemia protocol. ASSESSMENT AND PLAN: This is a very unfortunate morbidly obese 61-year-old female with his tory of diabetes mellitus, end-stage renal disease, hypertension, chronic left thigh wound, who pres ented with gross hematuria secondary to cystitis treated with antibiotics and also has a left heel w ound anemia. 1. Diabetes mellitus, controlled with Levemir regimen. 2. Left heel decubitus wound, left thigh wound. The patient to undergo angiogram on Friday to eval uate the pelvic circulation. Dr. Walton is following. Continue wound care for both heel and the left medial decubitus wounds. Podiatry and claims account specialist for the following as well as vascula r. 3. Hypertension. Continue with current meds. Stable. 4. Constipation. Continue stool softeners. 5. End-stage renal disease, dialysis [address] Mcdaniel is following. 6. Infectious disease. Remains on multiple medications, including vancomycin IV, Diflucan and Roce phin. Temperature curve is trending down. The patient's white count has improved as well. Pending plan of any vascular procedure, thereafter she can be discharged [facility]. 7. Morbidly obese state with a body mass index of 49.4 and making it very difficult to heal wounds and able to function independently. Prognosis guarded. The patient was seen by dietitian. We will follow. 8. PICC line will be placed. Case discussed with nursing staff. Dictated By: BAL BERG/VICTORINA Conf#: [id number] DID#: [id number]
[2017-04-19] MEDS: FLUCONAZOLE 100 MG/NS (PMX) 50 ML IVPB SCH (16:00)
[2017-04-19] MEDS: CEFTRIAXONE 1 GM/50 ML (PMX) 50 ML IVPB SCH (16:56)
[2017-04-19] MEDS: morphine LIQ (10 MG/5 ML) CUP PO PRN ×2 (18:10→21:52)
--- NOTE | 2017-04-19 19:11 | CONS ---
Date/Time of Note Date/Time of Note DATE: 04/19/17 TIME: 19:10 Assessment/Plan Assessment/Plan Chief Complaint/Hosp Course SUBJECTIVE: No acute changes. Looks comfortable. No fevers and no diarrhea. INDWELLINGS: Right chest PermCath and left upper extremity AV fistula. ANTIMICROBIALS: 1. Fluconazole 2. Rocephin. 3. IV vancomycin. PHYSICAL EXAMINATION: GENERAL: This is a morbidly obese, elderly woman who is alert, in no distress. HEENT: Head atraumatic, normocephalic. Sclerae anicteric. Buccal mucosa pink. NECK: Obese. CHEST: Rise symmetrical. Breath sounds clear. HEART: S1, S2. ABDOMEN: Soft. Bowel tones present. No tenderness over suprapubic area. EXTREMITIES: No cyanosis. ASSESSMENT: 1. Systemic inflammatory response syndrome. 2. Left upper thigh chronic necrotic wound, status post debridement 04/16/17, pathology revealed acute inflammation. 3. Status post urinary tract infection and hematuria. 4. End-stage renal disease, hemodialysis dependent. 5. Chronic pain syndrome. 6. Diabetes. 7. Morbid obesity. PLAN: The patient remains stable, wbc decreasing, continue abx. Follow recommendations of consultants. DW staff Problems: Consultation Date/Type/Reason Admit Date/Time April 07, 2017 at 21:56 Initial Consult Date 04/11/17 Type of Consultation: ID Referring Provider: BAL MAYER MD Exam/Review of Systems Vital Signs Vitals Vital Signs Date Time Temp Pulse Resp B/P Pulse Ox O2 Delivery O2 Flow Rate FiO2 04/19/17 08:49 Nasal Cannula 2.0 04/19/17 07:45 98.0 65 18 140/62 98 Intake and Output 04/18/17 04/18/17 04/19/17 15:00 23:00 07:00 Intake Total 400 ml 1050 ml 400 ml Output Total 3400 ml 3000 ml Balance -3000 ml -1950 ml 400 ml Results Result Diagram: 04/19/17 0532 04/19/17 0532 Results 24 hrs Laboratory Tests Test 04/18/17 20:30 04/19/17 05:32 04/19/17 05:35 04/19/17 08:04 Bedside Glucose 152 108 White Blood Count 11.5 H Red Blood Count 3.01 L Hemoglobin 8.6 L Hematocrit 28.7 L Mean Corpuscular Volume 95.3 Mean Corpuscular Hemoglobin 28.6 L Mean Corpuscular Hemoglobin Concent 30.0 L Red Cell Distribution Width 14.6 H Platelet Count 409 Mean Platelet Volume 9.7 Neutrophils % 68.0 Lymphocytes % 17.1 Monocytes % 9.6 Eosinophils % 4.0 Basophils % 0.4 Nucleated Red Blood Cells % 0.0 Neutrophils # 7.8 H Lymphocytes # 2.0 Monocytes # 1.1 H Eosinophils # 0.5 Basophils # 0.1 Nucleated Red Blood Cells # 0.0 Sodium Level 133 L Potassium Level 4.0 Chloride Level 97 Carbon Dioxide Level 30 Anion Gap 10 Blood Urea Nitrogen 22 H Creatinine 3.84 H Glucose Level 106 Calcium Level 8.9 Phosphorus Level 3.6 Magnesium Level 2.9 H Test 04/19/17 10:03 04/19/17 11:49 04/19/17 17:03 Bedside Glucose 135 136 134 Medications Medications Current Medications Ondansetron HCl (Zofran Inj) 4 mg Q6H PRN IV NAUSEA AND/OR VOMITING Last administered on 04/13/17 06:23; Admin Dose 4 MG; Start 04/07/17 at 22:30 Acetaminophen (Tylenol Tab) 650 mg Q6H PRN PO PAIN LEVEL 1-3 OR FEVER Last administered on 04/12/17 17:35; Admin Dose 650 MG; Start 04/07/17 at 22:30 Morphine Sulfate (morphine) 2 mg Q4H PRN IV SEVERE PAIN LEVEL 7-10 Last administered on 04/18/17 09:44; Admin Dose 2 MG; Start 04/07/17 at 22:30 Docusate Sodium (Colace) 100 mg Q12H PRN PO CONSTIPATION Last administered on 05:52; Admin Dose 100 MG; Start 04/07/17 at 22:30 Pantoprazole (Protonix Tab) 40 mg DAILY@06 PO Last administered on 04/19/17 05 :09; Admin Dose 40 MG; Start 04/08/17 at 06:00 Amlodipine Besylate (Norvasc) 5 mg DAILY PO Last administered on 04/19/17 08: 49; Admin Dose 5 MG; Start 04/08/17 at 09:00 Ascorbic Acid (Vitamin C) 500 mg DAILY PO Last administered on 04/19/17 08:49 ; Admin Dose 500 MG; Start 04/08/17 at 09:00 Aspirin (Halfprin) 81 mg DAILY PO ; Start 04/08/17 at 09:00; Status Future Hold Zinc Sulfate (Zinc Sulfate) 220 mg DAILY PO Last administered on 04/19/17 08: 49; Admin Dose 220 MG; Start 04/08/17 at 09:00 Miscellaneous Information 1 ea NOTE XX ; Start 04/07/17 at 23:00 Glucose (Glutose) 15 gm Q15M PRN PO DECREASED GLUCOSE; Start 04/07/17 at 23:00 Glucose (Glutose) 22.5 gm Q15M PRN PO DECREASED GLUCOSE; Start 04/07/17 at 23: 00 Dextrose (D50w Syringe) 25 ml Q15M PRN IV DECREASED GLUCOSE; Start 04/07/17 at 23:00 Dextrose (D50w Syringe) 50 ml Q15M PRN IV DECREASED GLUCOSE; Start 04/07/17 at 23:00 Glucagon (Glucagen) 1 mg Q15M PRN IM DECREASED GLUCOSE; Start 04/07/17 at 23:00 Glucose (Glutose) 15 gm Q15M PRN BUCCAL DECREASED GLUCOSE; Start 04/07/17 at 23 :00 Diagnostic Test (Pha) (Accu-Chek) 1 ea 02 XX Last administered on 04/11/17 02: 19; Admin Dose 1 EA; Start 04/08/17 at 02:00 Collagenase (Santyl) 1 applic DAILY TOP Last administered on 04/19/17 09:39; Admin Dose 1 APPLIC; Start 04/09/17 at 16:00 Collagenase 1 applic 1 applic PRN PRN TOP WOUND CARE Last administered on 00:28; Admin Dose 1 APPLIC; Start 04/09/17 at 14:30 Ceftriaxone Sodium 50 ml @ 100 mls/hr Q24H IVPB Last administered on 04/18/17 17:18; Admin Dose 100 MLS/HR; Start 04/11/17 at 17:00 Fluconazole/ Sodium Chloride (Diflucan 100 Mg/ NS (Pmx)) 50 ml @ 50 mls/hr Q24H IVPB Last administered on 04/18/17 15:40; Admin Dose 50 MLS/HR; Start 04/12/17 at 16:00 Gabapentin (Neurontin) 300 mg TID PO Last administered on 04/19/17 13:27; Admin Dose 300 MG; Start 04/13/17 at 14:15 Lactulose (Enulose) 20 gm Q6H PRN PO CONSTIPATION Last administered on 23:19; Admin Dose 20 GM; Start 04/13/17 at 13:30 Insulin Detemir (Levemir) 20 unit BID@08,20 SC Last administered on 04/19/17 10:06; Admin Dose 20 UNIT; Start 04/13/17 at 20:00 Prednisolone Acetate (Pred-Forte 1%) 1 drop BID RIGHT EYE Last administered on 04/19/17 08:49; Admin Dose 1 DROP; Start 04/13/17 at 21:30 Miscellaneous Information Patients own medicat... BID@10,16 XX ; Start 04/14/17 at 10:00 Simethicone (Mylicon) 80 mg Q4H PRN PO GAS PAINS Last administered on 04/15/17 08:15; Admin Dose 80 MG; Start 04/14/17 at 11:09 Epoetin Indra (Epogen (Esrd)) 8,000 units MoWeFr@17 SC Last administered on 17:25; Admin Dose 8,000 UNITS; Start 04/16/17 at 17:00 Lactobacillus Acidophilus/ Rhamnosus 1 cap 1 cap BID PO Last administered on 08:49; Admin Dose 1 CAP; Start 04/14/17 at 15:00 Vancomycin HCl (Vancocin) 250 ml @ 125 mls/hr Q5D IVPB Last administered on 22:18; Admin Dose 125 MLS/HR; Start 04/16/17 at 22:00 Ondansetron HCl (Zofran Tab) 4 mg Q4H PRN PO NAUSEA AND/OR VOMITING; Start 08/26 at 10:30 Morphine Sulfate (morphine) 10 mg Q3H PRN PO PAIN Last administered on 18:10; Admin Dose 10 MG; Start 04/19/17 at 11:00 ALYX NAVARRO NP Apr 19, 2017 19:10
[2017-04-19 21:36] VITALS: BP 163/72; RESP 19
[2017-04-19 23:30] VITALS: BP 147/70
[2017-04-20] MEDS: ACCUCHECK AT 2AM (Patients on SS coverage) XX SCH (01:15)
[2017-04-20] MEDS: PANTOPRAZOLE (EC) 40 MG TAB PO SCH (05:08)
[2017-04-20] MEDS: CALCIUM ACETATE 667 MG CAP PO SCH ×3 (07:35→17:47)
[2017-04-20] MEDS: INSULIN ASPART [NOVOLOG] 3 ML PEN SC SCH ×4 (08:00→20:05)
[2017-04-20 08:29] VITALS: BP 126/62; RESP 20
[2017-04-20] MEDS: GABAPENTIN 300 MG CAP PO SCH ×3 (08:44→20:05)
[2017-04-20] MEDS: INSULIN DETEMIR [LEVEMIR] 3ML CART SC SCH ×2 (08:48→20:08)
[2017-04-20] MEDS: LACTOBACILLUS RHAMNOSUS CAP PO SCH ×2 (08:49→20:05)
[2017-04-20] MEDS: ZINC SULFATE 220 MG CAP PO SCH (08:50)
[2017-04-20] MEDS: PREDNISOLONE ACET 1% 5 ML OPH RIGHT EYE SCH ×2 (08:50→20:05)
[2017-04-20] MEDS: AMLODIPINE 5 MG TAB PO SCH (08:50)
[2017-04-20] MEDS: ASCORBIC ACID 500 MG TAB PO SCH (08:50)
[2017-04-20] MEDS: COLLAGENASE 30 GM TUBE TOP SCH (08:51)
--- NOTE | 2017-04-20 11:01 | RADRPT ---
PROCEDURE: XR Chest. CLINICAL INDICATION: Respiratory distress. Left PICC line placement. TECHNIQUE: AP view of the chest was performed. COMPARISON: April 07, 2017 FINDINGS: There is a left PICC line at the RA/SVC junction in good positioning and ready for use. There is a stable, right central venous catheter. There are increased, diffuse, bilateral lung infiltrates worrisome for bilateral pneumonia. Mild cardiomegaly is stable. No pneumothorax or pleural effusion. No definite findings of fluid ov erload. The osseous structures are intact. IMPRESSION: Left PICC line in good positioning and ready for use. Increased, diffuse bilateral lung infiltrates worrisome for bilateral pneumonia. Stable right central venous catheter. No definite findings of fluid overload. RPTAT: QQ. .Portia Bee MD, Date Time Electronically viewed and signed by .Portia Bee MD, MD on 04/20/2017 11:00 .F/
[2017-04-20] MEDS ORDERED: SOD CHLORIDE 0.9% 100 ML ONE (11:04)
[2017-04-20] MEDS ORDERED: IOHEXOL 100 ML ONE (11:04)
[2017-04-20] MEDS ORDERED: HEPARIN (10 UNITS/ML) 5ML SYG IV ONE (13:00)
--- NOTE | 2017-04-20 14:01 | RADRPT ---
PROCEDURE: US guidance for PICC line CLINICAL INDICATION: PICC line placement TECHNIQUE: Multiple real-time images were acquired of the patient's arm utilizing a high resolutio n transducer. This was performed by the PICC line nurse for venous access. COMPARISON: None FINDINGS: Ultrasound guidance for PICC line placement. IMPRESSION: Ultrasound guidance for PICC line placement. RPTAT: AA .Steffen Trimble MD, MD Date Time Electronically viewed and signed by .Steffen Trimble MD, on 04/20/2017 14:01 .S/
--- NOTE | 2017-04-20 14:31 | PN ---
DATE: 04/20/2017 SUBJECTIVE: Patient seen status post left upper extremity PICC line. The patient had a low glucose level. I instructed the nurse to give her some orange juice. The patient is now eating lunch feel ing okay. She had a left upper extremity PICC line placed. PHYSICAL EXAMINATION: VITAL SIGNS: Temperature 98.5, pulse 67, respirations 20, blood pressure 126/62, saturation 96% on 2 liters. GENERAL: The patient is in no acute distress, pale, morbidly obese. CARDIOVASCULAR: S1, S2, regular rate. LUNGS: Clear. ABDOMEN: Soft, nontender. EXTREMITIES: No clubbing, cyanosis, or edema. She has a left heel wound, left medial thigh wound. LABORATORY DATA: Last glucose level documented at 79 at 12:05. At 9:30 it was 82. The patient d id not eat as she was going for the procedure. In the meantime, the patient is now eating and feeli ng okay. MEDICATIONS: Reviewed, include, I decreased the dose by half Levemir at least for today. 1. Levemir 10 units b.i.d. 2. Morphine p.r.n. 3. Zofran p.r.n. 4. Vancomycin IV dose per pharmacy. 5. Epogen 8000, Friday, Friday and Friday. 6. Culturelle b.i.d. 7. Simethicone p.r.n. 8. Pred Forte 40 b.i.d. 9. Neurontin 300 t.i.d. 10. Lactulose p.r.n. 11. Diflucan q.24h. 12. Ceftriaxone 1 gram q.24 13. Santyl daily. 14. Norvasc 5 mg daily. 15. Vitamin C 500 mg daily. 16. Zinc sulfate 220 daily. 17. Insulin aspart per sliding scale. 18. PhosLo 1.3 gram t.i.d. 19. Protonix 40 mg daily. 20. Accu-Chek q.a.c. and at bedtime. 21. Hypoglycemia protocol. 22. Zofran p.r.n. 23. Tylenol p.r.n. 20. Morphine p.r.n. 21. Colace p.r.n. ASSESSMENT AND PLAN: 1. This is a 61-year-old female with history of diabetes mellitus, end-stage renal disease , hypertension, chronic left thigh wound, who presented with gross hematuria secondary to cystitis, also has a left heel wound. 2. Multiple wounds. May be related to circulation. The patient awaiting CT angiogram. Follow up with vascular. Continue wound care, debridement p.r.n. Podiatry and surgical team is following. C ontinue to maximize the patient's nutrition status and provide with vitamins. Offloading is importa nt. Weight loss is important. 3. Hypertension, currently controlled. 4. Diabetes mellitus, reduced dose of Levemir, observe. 5. End-stage renal disease. Dialysis is planned for tomorrow. Monitor electrolytes. 6. Anemia p.r.n. transfusion as needed. Continue Epogen. 7. Infectious disease. ID is following. The patient remains on ceftriaxone for UTI and cystitis, also on Diflucan for Ruth Ann albicans in the urine. 8. Physical therapy as tolerated. The patient is very weak. Overall, long-term prognosis remains guarded as patient with multiple conditions. We will follow. Dictated By: BAL BERG/VICTORINA Conf#: [id number] DID#: [id number]
[2017-04-20] MEDS: FLUCONAZOLE 100 MG/NS (PMX) 50 ML IVPB SCH (15:34)
[2017-04-20] MEDS: CEFTRIAXONE 1 GM/50 ML (PMX) 50 ML IVPB SCH (17:04)
[2017-04-20] MEDS: ONDANSETRON 4 MG INJ IV PRN (18:09)
[2017-04-20 19:38] VITALS: BP 132/63; RESP 18
[2017-04-21] VITALS (9 sets, daily range): BP systolic 94–158; BP diastolic 54–82; PULSE 80–88; RESP 16
[2017-04-21] MEDS: ACCUCHECK AT 2AM (Patients on SS coverage) XX SCH (02:44)
[2017-04-21] MEDS: PANTOPRAZOLE (EC) 40 MG TAB PO SCH (05:28)
[2017-04-21 06:10] LABS: ADD SCAN DIFF NO
[2017-04-21 06:15] LABS: BASOPHILS % 0.4 % (0.0-2.0); EOSINOPHILS # 0.4 10^3/ul (0.0-0.5); EOSINOPHILS % 4.2 % (0.0-7.0); HEMATOCRIT 26.1 % (37.0-47.0); HEMOGLOBIN 8.1 g/dl (12.0-16.0); LYMPHOCYTES # 1.9 10^3/ul (0.8-2.9); MEAN CORPUSCULAR HEMOGLOBIN 29.6 pg (29.0-33.0); MEAN CORPUSCULAR VOLUME 95.3 fl (82.0-101.0); MEAN PLATELET VOLUME 9.3 fl (7.4-10.4); MONOCYTE # 0.9 10^3/ul (0.3-0.9); NEUTROPHIL # 6.6 10^3/ul (1.6-7.5); NEUTROPHILS % 66.5 % (39.0-77.0); PLATELET COUNT 413 10^3/UL (140-415); RED BLOOD COUNT 2.74 10^6/ul (4.20-5.40); RED CELL DISTRIBUTION WIDTH 14.6 % (11.5-14.5); WHITE BLOOD COUNT 9.9 10^3/ul (4.8-10.8)
[2017-04-21 06:51] LABS: PHOSPHORUS 4.3 mg/dl (2.5-4.9)
[2017-04-21 06:53] LABS: CALCIUM 9.1 mg/dl (8.4-10.2); CREATININE 5.26 mg/dl (0.44-1.00); POTASSIUM 5.2 mmol/L (3.5-5.1)
--- NOTE | 2017-04-21 07:30 | PN ---
DATE: 04/20/2017 INFECTIOUS DISEASE PROGRESS NOTE SUBJECTIVE: No acute events overnight. The patient is awake, looks comfortable, no fevers. WBC today 11.5, no shift, no bands. INDWELLINGS: Left upper extremity PICC line placed this morning right chest Perm-A-Cath and AV fist edvin. ANTIMICROBIALS: The patient is on: 1. Vancomycin. 2. Rocephin. 3. Fluconazole. PHYSICAL EXAMINATION: GENERAL: This is a morbidly obese, well-developed, elderly woman who is in no distress. HEENT: Head atraumatic, normocephalic. Sclerae anicteric. Buccal mucosa dry. NECK: Supple. CHEST: Rise symmetrical. Breath sounds clear. HEART: S1, S2. ABDOMEN: Soft. Bowel tones present. EXTREMITIES: No cyanosis. Bilateral lower extremities, trace edema. Left upper thigh dressing int act. ASSESSMENT: 1. Status post sepsis. 2. Systemic inflammatory response syndrome with ongoing leukocytosis, multifactorial. 3. Left upper thigh necrotic wound, status post debridement on 04/16/2017 with pathology revealed a cute inflammation. 4. End-stage renal disease. 5. Chronic pain syndrome. 6. Diabetes. 7. Diabetic neuropathy. PLAN: The patient remains stable on appropriate antimicrobials. She is being followed by multiple consultants. Vascular pending angiogram. Dictated By: ALYX NAVARRO MAINTENANCE MECHANIC ENGINE for LUCAS MARCELO/VICTORINA Conf#: [id number] DID#: [id number]
[2017-04-21] MEDS ORDERED: HEPARIN 1000 UNITS/ML 10 ML INJ ONE (07:35)
[2017-04-21] MEDS ORDERED: IODIXANOL LOCM 50 ML BTL ONE (07:35)
[2017-04-21] MEDS ORDERED: SOD CHLORIDE 0.9% 500 ML ONE (07:36)
[2017-04-21] MEDS ORDERED: FENTAnyl 50 MCG/ML VIAL ONE (07:36)
[2017-04-21] MEDS ORDERED: MIDAZOLAM 1 MG/ML 2 ML INJ ONE (07:36)
[2017-04-21] MEDS ORDERED: IODIXANOL LOCM 100 ML BTL ONE (07:36)
[2017-04-21] MEDS ORDERED: LIDOCAINE 1% (MDV) 20 ML INJ ONE (07:38)
[2017-04-21] MEDS: INSULIN ASPART [NOVOLOG] 3 ML PEN SC SCH ×4 (07:43→20:33)
[2017-04-21] MEDS: LACTOBACILLUS RHAMNOSUS CAP PO SCH ×2 (09:00→20:33)
[2017-04-21] MEDS: ASCORBIC ACID 500 MG TAB PO SCH (09:00)
[2017-04-21] MEDS: ZINC SULFATE 220 MG CAP PO SCH (09:00)
[2017-04-21] MEDS: GABAPENTIN 300 MG CAP PO SCH ×3 (09:00→20:33)
[2017-04-21] MEDS: AMLODIPINE 5 MG TAB PO SCH (09:00)
[2017-04-21] MEDS: CALCIUM ACETATE 667 MG CAP PO SCH ×3 (09:00→17:04)
[2017-04-21] MEDS: PREDNISOLONE ACET 1% 5 ML OPH RIGHT EYE SCH ×2 (09:01→20:33)
[2017-04-21] MEDS: INSULIN DETEMIR [LEVEMIR] 3ML CART SC SCH ×2 (09:04→20:32)
--- NOTE | 2017-04-21 09:08 | OPR ---
DATE OF OPERATION: 04/21/2017 SURGEON: Crispin Walton MD PREOPERATIVE DIAGNOSIS: Malfunctioning left upper extremity arteriovenous fistula. POSTOPERATIVE DIAGNOSIS: Malfunctioning left upper extremity arteriovenous fistula. ANESTHESIA: Local with sedation. ESTIMATED BLOOD LOSS: Minimal. COMPLICATIONS: None. HEPARIN: None. CONTRAST: As recorded. ACCESS: A 4-Peruvian sheath, left upper extremity fistula. CLOSURE: Manual compression, 3-0 nylon suture. INDICATIONS: This is a 61-year-old female who had presented with malfunction of left upper extremit y AV fistula and currently has a right chest wall catheter for the past 2 years. Upon review of her ultrasound it seems the patient has low flow volume and nonmatured fistula. The patient was inform ed of the alternatives, risks, and benefits of angiogram, balloon angioplasty and stenting. Risks i nclude, but not limited to bleeding, thrombosis, embolization, myocardial infarction, stroke, , device malfunction, infection, limb loss, and nephrotoxicity, and the patient has agreed to proceed . PROCEDURE: 1. Ultrasound-guided access of the left upper extremity AV fistula. 2. Left upper extremity venogram. 3. Central venogram (subclavian vein and superior vena cava internal jugular vein). 4. Left upper extremity fistulogram. 5. Selection of the left palmar artery in a second order. 6. Balloon angioplasty of the radiocephalic fistula anastomosis using a 4 mm x 4 cm balloon. FINDINGS: Left upper extremity fistula anastomosis site with moderate to severe stenosis. Left cep halic vein in the forearm it is patent. There were multiple tributaries along the cephalic vein. P atent basilic vein, patent brachial vein, patent axillary vein, patent subclavian vein, patent cepha lic vein in the upper arm, patent cephalic arch, patent brachiocephalic vein, patent superior vena c amalia, adequate positioning of the right chest wall catheter. Further, upon retrograde access, patent radial artery. DESCRIPTION OF PROCEDURE: The patient was brought into the angio suite, positioned in supine positi on on the fluoroscopic table. Sedation was administered without complications. Right upper extremi ty was shaved and prepped and draped in usual standard sterile fashion. Timeout and appropriate sit e was marked and confirmed. Local anesthesia was infiltrated in the region of the right upper extre mity. The fistula was encountered with a micro access needle under ultrasound guidance and a guidew aniceto was advanced into the forearm cephalic vein. The needle was then removed and a micro catheter w as placed. Multi-station fistulogram and venogram was conducted of the upper extremity and the cent ral veins. Findings are noted above. The right upper extremity angiogram was also conducted, which demonstrated the patient having a significant stenosis near the anastomosis site. At this point, a retrograde access was obtained using ultrasound guidance of her radiocephalic fistula. Another ang iogram was performed and identified the area of stenosis. At this point, it was determined to go ah ead and perform balloon angioplasty of this site. Using 0.035 Glidewire, we went ahead and cannulat ed the palmar artery. At this point, using a 4 mm x 4 cm balloon, balloon venoplasty of the anastom osis site was performed. There was improved flow after our venoplasty along the area of the anastom osis site with some residual stenosis. Balloon angioplasty was again reattempted, and upon completi on angiogram there was a stronger bruit and thrill and improved flow through the anastomosis site. At this point, all instruments, catheters, and wires were removed. The patient tolerated the proced ure well and was taken postanesthesia care unit in stable condition, 3-0 nylon suture was placed to close the puncture sites, and we will plan to have the fistula used for dialysis in order to evaluat e the patient's progress. Dictated By: CRISPIN BRITTON/VICTORINA Conf#: [id number] DID#: [id number]
[2017-04-21] MEDS: COLLAGENASE 30 GM TUBE TOP SCH (09:18)
--- NOTE | 2017-04-21 09:53 | RADRPT ---
PROCEDURE: CT angiogram of the abdomen and pelvis with bilateral lower extremity runoff and with 3 -D reconstructions CLINICAL INDICATION: GANGRENE TECHNIQUE: CT angiogram of the abdomen and pelvis was performed on a multislice CT scanner . The patient was scanned after administration of intravenous contrast. Sagittal and coronal reformatted images were obtained from the axial source images. 3D MIP reformatted images were also created from the axial source images. DLP 1944.89 mGycm CTDI vol 4.11, 6.57, 57.51, 14.62 mGy COMPARISON: CT abdomen/pelvis from 04/08/2017 and duplex sonogram of the lower extremity arteries from 04/17/2017 FINDINGS: ANGIOGRAM: There is no acute dissection or aneurysm of the abdominal aorta. The celiac, SMA, and MARYCHUY are widely patent. There is a replaced right hepatic artery off the SMA. The main renal arteries are widely patent bilaterally. There is an accessory left renal artery whic h is widely patent. Common, internal and external iliac arteries are patent bilaterally. RIGHT LOWER EXTREMITY: There are circumferential calcifications of the right common femoral, profunda femoral, superficial femoral, and popliteal arteries as well as the infrapopliteal arteries. The right common femoral, profunda, and superficial femoral arteries are otherwise widely patent. There is a focus of short segment moderate to severe narrowing of the above-knee popliteal artery on series 5, image 326. There is a focus of short segment moderate to severe narrowing in the mid popl iteal artery on series 5, image 361. Infrapopliteal vessels are patent and there is good three-vessel runoff to the level of the ankle. LEFT LOWER EXTREMITY: There are circumferential calcifications of the left common femoral, profunda femoral, superficial f emoral, and popliteal arteries as well as the infrapopliteal arteries. The right common femoral, profunda, and superficial femoral arteries are otherwise widely patent. There is a focus of short segment moderate narrowing of the left above-knee popliteal artery on seri es 5, image 327 as well as a focus of short segment severe narrowing on image 339. There is a third focus of near - occlusion of the left above-knee popliteal artery on image 353 as well as a fourth f ocus with near - complete occlusion on image 367. Infrapopliteal vessels are patent and there is good three-vessel runoff to the level of the ankle. ANCILLARY: There are trace right greater than left pleural effusions with compressive bibasilar atelectasis. Punctate calcified granulomas are identified at the hepatic dome and throughout the spleen. Bilateral kidneys are atrophic and there is a punctate nonobstructive calculus in the lower pole of the left kidney. There is no hydronephrosis bilaterally. There is a moderate - sized fat - containing umbilical hernia measuring up to 7.3 x 4.7 cm in maximu m axial dimensions. There is cholelithiasis. There is marked skin thickening and subcutaneous stranding as well as calcifications which begins th e medial thighs distally and extends around bilateral calves, likely due to chronic venous insuffici ency as multiple dilated and tortuous calcified varicosities are noted in this region. IMPRESSION: The arteries of bilateral lower extremities are diffusely circumferentially calcified which likely a ccounts for the diffusely monophasic wave forms seen on the recent duplex sonogram of bilateral lowe r extremity arteries. There is no evidence of aortoiliac occlusive disease. Multifocal severe narrowing in the left popliteal artery with several foci of near - complete occlus ion. Multifocal moderate to severe narrowing is also identified in the right popliteal artery. Bal loon angioplasty can be performed for improved revascularization. Clinical correlation is recommend ed. Infrapopliteal vessels are circumferentially calcified no patent without evidence of high-grade sten osis or occlusion bilaterally. Marked skin thickening and subcutaneous stranding as well as calcified tortuous varicosities within the subcutaneous soft tissues of the medial thighs in bilateral calves, likely due to chronic venous insufficiency. Trace right greater than left pleural effusions. Moderate - sized fat - containing umbilical hernia. Cholelithiasis. Atrophic kidneys with a nonobstructive punctate calculus in the left kidney. RPTAT: EE Physician Haley Date Time Electronically viewed and signed by Physician Haley on 04/21/2017 09:52 /
--- NOTE | 2017-04-21 12:03 | CONS ---
Date/Time of Note Date/Time of Note DATE: 04/21/17 TIME: 12:02 Assessment/Plan Assessment/Plan Chief Complaint/Hosp Course - ESRD ON HEMODIALYSIS @ [facility] [place] - ANEMIA - HEMATURIA / BLEEDING - DM - HYPERTENSION - RECENT Hx OF LEG CELLULITIS ( ON ABX ) - HIGH PHOS. - HYPONATREMIA PLAN: Continue with HD as planned Continue with EPOGEN Check Iron status Continue with Abx Urology plan noted Problems: Consultation Date/Type/Reason Admit Date/Time April 07, 2017 at 21:56 Initial Consult Date 04/09/17 Type of Consultation: NEPHROLOGY Reason for Consultation ESRD on Hemodialysis Referring Provider: BAL MAYER MD 24 HR Interval Summary Constitutional: improved, no complaints Exam/Review of Systems Vital Signs Vitals Vital Signs Date Time Temp Pulse Resp B/P Pulse Ox O2 Delivery O2 Flow Rate FiO2 04/21/17 09:11 98.2 16 16 130/60 98 04/21/17 09:00 Nasal Cannula 2.0 Intake and Output 04/20/17 04/20/17 04/21/17 15:00 23:00 07:00 Intake Total 580 ml 280 ml Balance 580 ml 280 ml Exam Constitutional: alert, oriented Cardiovascular: edema, regular rate and rhythm, systolic murmur Gastrointestinal: soft Results Result Diagram: 04/21/17 0435 04/21/17 0435 Results 24 hrs Laboratory Tests Test 04/20/17 12:05 04/20/17 17:03 04/20/17 19:59 04/20/17 23:17 Bedside Glucose 79 94 94 120 Test 04/21/17 02:16 04/21/17 04:35 04/21/17 07:07 Bedside Glucose 105 91 White Blood Count 9.9 Red Blood Count 2.74 L Hemoglobin 8.1 L Hematocrit 26.1 L Mean Corpuscular Volume 95.3 Mean Corpuscular Hemoglobin 29.6 Mean Corpuscular Hemoglobin Concent 31.0 L Red Cell Distribution Width 14.6 H Platelet Count 413 Mean Platelet Volume 9.3 Neutrophils % 66.5 Lymphocytes % 19.0 Monocytes % 9.0 Eosinophils % 4.2 Basophils % 0.4 Nucleated Red Blood Cells % 0.0 Neutrophils # 6.6 Lymphocytes # 1.9 Monocytes # 0.9 Eosinophils # 0.4 Basophils # 0.0 Nucleated Red Blood Cells # 0.0 Sodium Level 130 L Potassium Level 5.2 H Chloride Level 93 L Carbon Dioxide Level 28 Anion Gap 14 Blood Urea Nitrogen 34 #H Creatinine 5.26 H Glucose Level 72 Calcium Level 9.1 Phosphorus Level 4.3 Magnesium Level 3.0 H Medications Medications Current Medications Ondansetron HCl (Zofran Inj) 4 mg Q6H PRN IV NAUSEA AND/OR VOMITING Last administered on 04/20/17 18:09; Admin Dose 4 MG; Start 04/07/17 at 22:30 Acetaminophen (Tylenol Tab) 650 mg Q6H PRN PO PAIN LEVEL 1-3 OR FEVER Last administered on 04/12/17 17:35; Admin Dose 650 MG; Start 04/07/17 at 22:30 Morphine Sulfate (morphine) 2 mg Q4H PRN IV SEVERE PAIN LEVEL 7-10 Last administered on 04/18/17 09:44; Admin Dose 2 MG; Start 04/07/17 at 22:30 Docusate Sodium (Colace) 100 mg Q12H PRN PO CONSTIPATION Last administered on 05:52; Admin Dose 100 MG; Start 04/07/17 at 22:30 Pantoprazole (Protonix Tab) 40 mg DAILY@06 PO Last administered on 04/21/17 05 :28; Admin Dose 40 MG; Start 04/08/17 at 06:00 Amlodipine Besylate (Norvasc) 5 mg DAILY PO Last administered on 04/20/17 08: 50; Admin Dose 5 MG; Start 04/08/17 at 09:00 Ascorbic Acid (Vitamin C) 500 mg DAILY PO Last administered on 04/21/17 09:00 ; Admin Dose 500 MG; Start 04/08/17 at 09:00 Aspirin (Halfprin) 81 mg DAILY PO ; Start 04/08/17 at 09:00; Status Future Hold Zinc Sulfate (Zinc Sulfate) 220 mg DAILY PO Last administered on 04/21/17 09: 00; Admin Dose 220 MG; Start 04/08/17 at 09:00 Miscellaneous Information 1 ea NOTE XX ; Start 04/07/17 at 23:00 Glucose (Glutose) 15 gm Q15M PRN PO DECREASED GLUCOSE; Start 04/07/17 at 23:00 Glucose (Glutose) 22.5 gm Q15M PRN PO DECREASED GLUCOSE; Start 04/07/17 at 23: 00 Dextrose (D50w Syringe) 25 ml Q15M PRN IV DECREASED GLUCOSE; Start 04/07/17 at 23:00 Dextrose (D50w Syringe) 50 ml Q15M PRN IV DECREASED GLUCOSE; Start 04/07/17 at 23:00 Glucagon (Glucagen) 1 mg Q15M PRN IM DECREASED GLUCOSE; Start 04/07/17 at 23:00 Glucose (Glutose) 15 gm Q15M PRN BUCCAL DECREASED GLUCOSE; Start 04/07/17 at 23 :00 Diagnostic Test (Pha) (Accu-Chek) 1 ea 02 XX Last administered on 04/21/17 02: 44; Admin Dose 1 EA; Start 04/08/17 at 02:00 Collagenase (Santyl) 1 applic DAILY TOP Last administered on 04/21/17 09:18; Admin Dose 1 APPLIC; Start 04/09/17 at 16:00 Collagenase 1 applic 1 applic PRN PRN TOP WOUND CARE Last administered on 00:28; Admin Dose 1 APPLIC; Start 04/09/17 at 14:30 Ceftriaxone Sodium 50 ml @ 100 mls/hr Q24H IVPB Last administered on 17:04; Admin Dose 100 MLS/HR; Start 04/11/17 at 17:00 Fluconazole/ Sodium Chloride (Diflucan 100 Mg/ NS (Pmx)) 50 ml @ 50 mls/hr Q24H IVPB Last administered on 04/20/17 15:34; Admin Dose 50 MLS/HR; Start 04/12/17 at 16:00 Gabapentin (Neurontin) 300 mg TID PO Last administered on 04/21/17 09:00; Admin Dose 300 MG; Start 04/13/17 at 14:15 Lactulose (Enulose) 20 gm Q6H PRN PO CONSTIPATION Last administered on 23:19; Admin Dose 20 GM; Start 04/13/17 at 13:30 Prednisolone Acetate (Pred-Forte 1%) 1 drop BID RIGHT EYE Last administered on 04/21/17 09:01; Admin Dose 1 DROP; Start 04/13/17 at 21:30 Miscellaneous Information Patients own medicat... BID@10,16 XX ; Start 04/14/17 at 10:00 Simethicone (Mylicon) 80 mg Q4H PRN PO GAS PAINS Last administered on 04/15/17 08:15; Admin Dose 80 MG; Start 04/14/17 at 11:09 Epoetin Indra (Epogen (Esrd)) 8,000 units MoWeFr@17 SC Last administered on 17:25; Admin Dose 8,000 UNITS; Start 04/16/17 at 17:00 Lactobacillus Acidophilus/ Rhamnosus 1 cap 1 cap BID PO Last administered on 09:00; Admin Dose 1 CAP; Start 04/14/17 at 15:00 Vancomycin HCl (Vancocin) 250 ml @ 125 mls/hr Q5D IVPB Last administered on 22:18; Admin Dose 125 MLS/HR; Start 04/16/17 at 22:00 Ondansetron HCl (Zofran Tab) 4 mg Q4H PRN PO NAUSEA AND/OR VOMITING; Start 08/26 at 10:30 Morphine Sulfate (morphine) 10 mg Q3H PRN PO PAIN Last administered on 21:52; Admin Dose 10 MG; Start 04/19/17 at 11:00 Insulin Detemir (Levemir) 10 unit BID@08,20 SC Last administered on 04/21/17 09:04; Admin Dose 10 UNIT; Start 04/20/17 at 20:00 ANIBAL ALMANZAR MD Apr 21, 2017 12:03
--- NOTE | 2017-04-21 14:21 | CONS ---
Date/Time of Note Date/Time of Note DATE: 04/21/17 TIME: 14:20 Assessment/Plan Assessment/Plan Chief Complaint/Hosp Course SUBJECTIVE: No acute changes. Looks comfortable. No fevers and no diarrhea. INDWELLINGS: Right chest PermCath and left upper extremity AV fistula. ANTIMICROBIALS: 1. Fluconazole 2. Rocephin. 3. IV vancomycin. PHYSICAL EXAMINATION: GENERAL: This is a morbidly obese, elderly woman who is alert, in no distress. HEENT: Head atraumatic, normocephalic. Sclerae anicteric. Buccal mucosa pink. NECK: Obese. CHEST: Rise symmetrical. Breath sounds clear. HEART: S1, S2. ABDOMEN: Soft. Bowel tones present. No tenderness over suprapubic area. EXTREMITIES: No cyanosis. ASSESSMENT: 1. Systemic inflammatory response syndrome with resolving leukocytosis. 2. Left upper thigh chronic necrotic wound, status post debridement 04/16/17, pathology revealed acute inflammation. 3. Status post urinary tract infection and hematuria. 4. End-stage renal disease, hemodialysis dependent. 5. Chronic pain syndrome. 6. Diabetes. 7. Morbid obesity. 8. PAD, s/p angiogram PLAN: The patient remains stable, continue abx. Follow vascula recommendations. DW staff Problems: Consultation Date/Type/Reason Admit Date/Time April 07, 2017 at 21:56 Initial Consult Date 04/11/17 Type of Consultation: ID Referring Provider: BAL MAYER MD Exam/Review of Systems Vital Signs Vitals Vital Signs Date Time Temp Pulse Resp B/P Pulse Ox O2 Delivery O2 Flow Rate FiO2 04/21/17 13:00 85 04/21/17 13:00 20 04/21/17 09:11 98.2 130/60 98 04/21/17 09:00 Nasal Cannula 2.0 Intake and Output 04/20/17 04/20/17 04/21/17 15:00 23:00 07:00 Intake Total 580 ml 280 ml Balance 580 ml 280 ml Results Result Diagram: 04/21/17 0435 04/21/17 0435 Results 24 hrs Laboratory Tests Test 04/20/17 17:03 04/20/17 19:59 04/20/17 23:17 04/21/17 02:16 Bedside Glucose 94 94 120 105 Test 04/21/17 04:35 04/21/17 07:07 04/21/17 12:34 White Blood Count 9.9 Red Blood Count 2.74 L Hemoglobin 8.1 L Hematocrit 26.1 L Mean Corpuscular Volume 95.3 Mean Corpuscular Hemoglobin 29.6 Mean Corpuscular Hemoglobin Concent 31.0 L Red Cell Distribution Width 14.6 H Platelet Count 413 Mean Platelet Volume 9.3 Neutrophils % 66.5 Lymphocytes % 19.0 Monocytes % 9.0 Eosinophils % 4.2 Basophils % 0.4 Nucleated Red Blood Cells % 0.0 Neutrophils # 6.6 Lymphocytes # 1.9 Monocytes # 0.9 Eosinophils # 0.4 Basophils # 0.0 Nucleated Red Blood Cells # 0.0 Sodium Level 130 L Potassium Level 5.2 H Chloride Level 93 L Carbon Dioxide Level 28 Anion Gap 14 Blood Urea Nitrogen 34 #H Creatinine 5.26 H Glucose Level 72 Calcium Level 9.1 Phosphorus Level 4.3 Magnesium Level 3.0 H Bedside Glucose 91 138 Medications Medications Current Medications Ondansetron HCl (Zofran Inj) 4 mg Q6H PRN IV NAUSEA AND/OR VOMITING Last administered on 04/20/17 18:09; Admin Dose 4 MG; Start 04/07/17 at 22:30 Acetaminophen (Tylenol Tab) 650 mg Q6H PRN PO PAIN LEVEL 1-3 OR FEVER Last administered on 04/12/17 17:35; Admin Dose 650 MG; Start 04/07/17 at 22:30 Morphine Sulfate (morphine) 2 mg Q4H PRN IV SEVERE PAIN LEVEL 7-10 Last administered on 04/18/17 09:44; Admin Dose 2 MG; Start 04/07/17 at 22:30 Docusate Sodium (Colace) 100 mg Q12H PRN PO CONSTIPATION Last administered on 05:52; Admin Dose 100 MG; Start 04/07/17 at 22:30 Pantoprazole (Protonix Tab) 40 mg DAILY@06 PO Last administered on 04/21/17 05 :28; Admin Dose 40 MG; Start 04/08/17 at 06:00 Amlodipine Besylate (Norvasc) 5 mg DAILY PO Last administered on 04/20/17 08: 50; Admin Dose 5 MG; Start 04/08/17 at 09:00 Ascorbic Acid (Vitamin C) 500 mg DAILY PO Last administered on 04/21/17 09:00 ; Admin Dose 500 MG; Start 04/08/17 at 09:00 Aspirin (Halfprin) 81 mg DAILY PO ; Start 04/08/17 at 09:00; Status Future Hold Zinc Sulfate (Zinc Sulfate) 220 mg DAILY PO Last administered on 04/21/17 09: 00; Admin Dose 220 MG; Start 04/08/17 at 09:00 Miscellaneous Information 1 ea NOTE XX ; Start 04/07/17 at 23:00 Glucose (Glutose) 15 gm Q15M PRN PO DECREASED GLUCOSE; Start 04/07/17 at 23:00 Glucose (Glutose) 22.5 gm Q15M PRN PO DECREASED GLUCOSE; Start 04/07/17 at 23: 00 Dextrose (D50w Syringe) 25 ml Q15M PRN IV DECREASED GLUCOSE; Start 04/07/17 at 23:00 Dextrose (D50w Syringe) 50 ml Q15M PRN IV DECREASED GLUCOSE; Start 04/07/17 at 23:00 Glucagon (Glucagen) 1 mg Q15M PRN IM DECREASED GLUCOSE; Start 04/07/17 at 23:00 Glucose (Glutose) 15 gm Q15M PRN BUCCAL DECREASED GLUCOSE; Start 04/07/17 at 23 :00 Diagnostic Test (Pha) (Accu-Chek) 1 ea 02 XX Last administered on 04/21/17 02: 44; Admin Dose 1 EA; Start 04/08/17 at 02:00 Collagenase (Santyl) 1 applic DAILY TOP Last administered on 04/21/17 09:18; Admin Dose 1 APPLIC; Start 04/09/17 at 16:00 Collagenase 1 applic 1 applic PRN PRN TOP WOUND CARE Last administered on 00:28; Admin Dose 1 APPLIC; Start 04/09/17 at 14:30 Ceftriaxone Sodium 50 ml @ 100 mls/hr Q24H IVPB Last administered on 17:04; Admin Dose 100 MLS/HR; Start 04/11/17 at 17:00 Fluconazole/ Sodium Chloride (Diflucan 100 Mg/ NS (Pmx)) 50 ml @ 50 mls/hr Q24H IVPB Last administered on 04/20/17 15:34; Admin Dose 50 MLS/HR; Start 04/12/17 at 16:00 Gabapentin (Neurontin) 300 mg TID PO Last administered on 04/21/17 12:13; Admin Dose 300 MG; Start 04/13/17 at 14:15 Lactulose (Enulose) 20 gm Q6H PRN PO CONSTIPATION Last administered on 23:19; Admin Dose 20 GM; Start 04/13/17 at 13:30 Prednisolone Acetate (Pred-Forte 1%) 1 drop BID RIGHT EYE Last administered on 04/21/17 09:01; Admin Dose 1 DROP; Start 04/13/17 at 21:30 Miscellaneous Information Patients own medicat... BID@10,16 XX ; Start 04/14/17 at 10:00 Simethicone (Mylicon) 80 mg Q4H PRN PO GAS PAINS Last administered on 04/15/17 08:15; Admin Dose 80 MG; Start 04/14/17 at 11:09 Epoetin Indra (Epogen (Esrd)) 8,000 units MoWeFr@17 SC Last administered on 17:25; Admin Dose 8,000 UNITS; Start 04/16/17 at 17:00 Lactobacillus Acidophilus/ Rhamnosus 1 cap 1 cap BID PO Last administered on 09:00; Admin Dose 1 CAP; Start 04/14/17 at 15:00 Vancomycin HCl (Vancocin) 250 ml @ 125 mls/hr Q5D IVPB Last administered on 22:18; Admin Dose 125 MLS/HR; Start 04/16/17 at 22:00 Ondansetron HCl (Zofran Tab) 4 mg Q4H PRN PO NAUSEA AND/OR VOMITING; Start 08/26 at 10:30 Morphine Sulfate (morphine) 10 mg Q3H PRN PO PAIN Last administered on 21:52; Admin Dose 10 MG; Start 04/19/17 at 11:00 Insulin Detemir (Levemir) 10 unit BID@08,20 SC Last administered on 04/21/17 09:04; Admin Dose 10 UNIT; Start 04/20/17 at 20:00 ALYX NAVARRO NP Apr 21, 2017 14:21
--- NOTE | 2017-04-21 15:41 | PN ---
DATE: 04/21/2017 SUBJECTIVE: The patient is status post balloon angioplasty of the radiocephalic fistula anastomosis using a 4 mm x 4 cm balloon. The patient tolerated the procedure well. OBJECTIVE: VITAL SIGNS: Temperature 98.2, pulse is 88, respirations 20, blood pressure 130/60, saturation 98% on 2 liters. GENERAL: The patient is in no acute distress, morbidly obese, pale. UPPER EXTREMITIES: Right forearm fistula is palpable. Left upper extremity PICC line in place. CARDIOVASCULAR: S1 and S2. Regular rate and rhythm. LUNGS: Clear. ABDOMEN: Soft, nontender, obese. LOWER EXTREMITIES: Left medial thigh wound and left heel wound. LABORATORY DATA: White count is 9.9, hemoglobin 8.1, hematocrit 26, platelet count 413, neutrophils 67%, lymphocytes 19%. Chemistry: Sodium 138, potassium 5.2, chloride 93, bicarbonate 28, BUN is 3 4, creatinine 5.26, glucose of 72. Last glucose was 138 and 91. Urine culture shows Ruth Ann albica ns on 04/10/2017. MEDICATIONS: Reviewed include the following 1. Insulin Levemir 10 units b.i.d. 2. Morphine p.r.n. 3. Zofran p.r.n. 4. Vancomycin dose per pharmacy. 5. Epogen 8000 every Friday, Friday, and Friday. 6. Culturelle b.i.d. 7. Simethicone 80 q. 4 p.r.n. 8. ____. 9. Neurontin 300 t.i.d. 10. Lactulose p.r.n. 11. Diflucan IV dose daily. 12. Rocephin 1 gram q. 24 hours. 13. Santyl daily and p.r.n. 14. Amlodipine 5 mg daily. 15. Vitamin C 500 mg daily. 16. Zinc sulfate 220 daily. 17. Insulin aspart per sliding scale. 18. Phosphorus 1.3 grams t.i.d. 19. Protonix 40 mg daily. 20. Accu-Chek q. a.c. and at bedtime. 21. Hypoglycemia protocol. 22. Zofran p.r.n. 23. Tylenol p.r.n. 24. Morphine p.r.n. 25. Colace p.r.n. She had an abdominal angiography which shows the following: The arteries of the bilateral lower ext remities are diffusely circumferentially calcified which likely accounts for the diffusely monophasi c waveforms seen on the recent duplex sonogram of bilateral lower extremity arteries. There is no e vidence of aortoiliac occlusive disease. There is multifocal severe narrowing in the left popliteal artery and severe focal near complete occlusion. There is multifocal moderate to severe narrowing also identified in the right popliteal artery. Balloon angioplasty can be performed for improved re vascularization. There are also infrapopliteal vessels of circumferentially calcified now patent wi thout evidence of high grade stenosis or occlusion bilaterally. There is marked skin thickening and subcutaneous stranding as well as calcified and tortuous varicosities within the subcutaneous soft tissue of the medial thighs and the bilateral calves likely due to chronic venous insufficiency. Tr steve right greater than left pleural effusion, moderate size fat containing umbilical hernia, choleli thiasis, and atrophic kidneys with nonobstructive punctate calculus in the left kidney. ASSESSMENT AND PLAN: This is a very unfortunate 61-year-old morbidly obese female with logan betes mellitus, end-stage renal disease, hypertension, chronic left thigh wound who presented with g ross hematuria secondary to cystitis, also being treated for left medial thigh wound, left heel woun d, and was found to have also diffuse arteriosclerotic cardiovascular disease and lower extremity va scular occlusion. 1. Peripheral vascular disease. Further treatment per Dr. Walton. May need balloon stenting of the left popliteal artery to improve circulation as the patient unfortunately has a left heel wound . 2. Left medial thigh wound. Continue wound care. Debridement p.r.n. 3. Diabetes mellitus, currently on Levemir 10 units twice a day. Observe. Glucose levels are 138, 91, and 105. Continue the same. 4. End-stage renal disease. Dialysis 3 times a week. Monitor electrolytes. 5. Infectious disease. Remains on vancomycin, Diflucan, and Rocephin. White count today is normal , afebrile. 6. Physical therapy as tolerated. 7. Disposition: To nursing home facility once vascular workup and procedures are done. 8. Further podiatric care per Dr. Ding as well as the patient to follow closely at the wound clin ic. We will follow. Dictated By: BAL BERG/VICTORINA Conf#: [id number] DID#: [id number]
[2017-04-21] MEDS: CEFTRIAXONE 1 GM/50 ML (PMX) 50 ML IVPB SCH (17:04)
[2017-04-21] MEDS: FLUCONAZOLE 100 MG/NS (PMX) 50 ML IVPB SCH (17:04)
[2017-04-21] MEDS: EPOETIN 4000 UNITS/1 ML INJ (ESRD) SC SCH (17:27)
[2017-04-21] MEDS: morphine 2 MG INJ IV PRN (18:46)
[2017-04-21] MEDS: VANCOMYCIN 1 GM in NS 250 ML IVPB SCH (21:16)
--- NOTE | 2017-04-21 21:20 | PN ---
DATE: 04/21/2017 SUBJECTIVE: The patient has had hematuria, and that has cleared. The patient is on hemodialysis. The patient is still making urine and the urine is clear. The denies having any pain, and she is mu ch more discomfort. OBJECTIVE: VITAL SIGNS: Her temperature is 98.2, blood pressure 130/50, pulse is 85, respirations 20. ABDOMEN: Obese. No abdominal mass palpable. LABORATORY DATA: CBC shows WBC 9.9, hemoglobin 8.1, hematocrit 26.1. BUN is 34, creatinine 5.26. Again, the patient is on hemodialysis. IMPRESSION: Hematuria that has cleared. Initially the patient did have a urine culture that was tr eated, therefore, at the present from a urological standpoint, we will just observe her. Dictated By: KENISHA BETANCOURT/VICTORINA Conf#: [id number] DID#: [id number]
--- NOTE | 2017-04-21 23:32 | PN ---
Date/Time of Note Date/Time of Note DATE: 04/21/17 TIME: 23:32 Assessment/Plan Lines/Catheters IV Catheter Type (from [facility]): Saline Lock [place] in Place (from [facility]): No Assessment/Plan Problems: (1) Decubitus ulcer, heel (2) Kidney failure (3) Peripheral vascular disease Assessment/Plan Continue heel protection. Will monitor. Exam/Review of Systems Vital Signs Vitals Vital Signs Date Time Temp Pulse Resp B/P Pulse Ox O2 Delivery O2 Flow Rate FiO2 04/21/17 21:17 98.2 69 16 128/60 96 04/21/17 09:00 Nasal Cannula 2.0 Intake and Output 04/20/17 04/20/17 04/21/17 15:00 23:00 07:00 Intake Total 580 ml 280 ml Balance 580 ml 280 ml Results Result Diagram: 04/21/17 0435 04/21/17 0435 LEELEE SOTOMAYOR DPM Apr 21, 2017 23:32
[2017-04-22] MEDS: ACCUCHECK AT 2AM (Patients on SS coverage) XX SCH ×2 (02:31→20:44)
[2017-04-22] MEDS: PANTOPRAZOLE (EC) 40 MG TAB PO SCH (05:33)
[2017-04-22] MEDS: INSULIN ASPART [NOVOLOG] 3 ML PEN SC SCH ×4 (08:00→20:43)
[2017-04-22] MEDS: CALCIUM ACETATE 667 MG CAP PO SCH ×3 (08:08→17:22)
[2017-04-22] MEDS: INSULIN DETEMIR [LEVEMIR] 3ML CART SC SCH ×2 (08:10→20:45)
[2017-04-22 08:22] VITALS: BP 130/59; RESP 19
[2017-04-22] MEDS: ZINC SULFATE 220 MG CAP PO SCH (08:46)
[2017-04-22] MEDS: LACTOBACILLUS RHAMNOSUS CAP PO SCH ×2 (08:46→20:45)
[2017-04-22] MEDS: PREDNISOLONE ACET 1% 5 ML OPH RIGHT EYE SCH ×2 (08:46→20:46)
[2017-04-22] MEDS: GABAPENTIN 300 MG CAP PO SCH ×3 (08:47→20:46)
[2017-04-22] MEDS: AMLODIPINE 5 MG TAB PO SCH (08:47)
[2017-04-22] MEDS: ASCORBIC ACID 500 MG TAB PO SCH (08:47)
[2017-04-22] MEDS: COLLAGENASE 30 GM TUBE TOP SCH (08:50)
--- NOTE | 2017-04-22 14:05 | CONS ---
Date/Time of Note Date/Time of Note DATE: 04/22/17 TIME: 14:05 Assessment/Plan Assessment/Plan Chief Complaint/Hosp Course SUBJECTIVE: No acute changes. Looks comfortable. No fevers and no diarrhea. INDWELLINGS: Right chest PermCath and left upper extremity AV fistula. ANTIMICROBIALS: 1. Fluconazole 2. Rocephin. 3. IV vancomycin. PHYSICAL EXAMINATION: GENERAL: This is a morbidly obese, elderly woman who is alert, in no distress. HEENT: Head atraumatic, normocephalic. Sclerae anicteric. Buccal mucosa pink. NECK: Obese. CHEST: Rise symmetrical. Breath sounds clear. HEART: S1, S2. ABDOMEN: Soft. Bowel tones present. No tenderness over suprapubic area. EXTREMITIES: No cyanosis. ASSESSMENT: 1. Systemic inflammatory response syndrome with resolving leukocytosis. 2. Left upper thigh chronic necrotic wound, status post debridement 04/16/17, pathology revealed acute inflammation. 3. Status post urinary tract infection and hematuria. 4. End-stage renal disease, hemodialysis dependent. 5. Chronic pain syndrome. 6. Diabetes. 7. Morbid obesity. 8. PAD, s/p angiogram PLAN: The patient remains stable, continue abx. Follow vascular recommendations, local wound care. DW staff Problems: Consultation Date/Type/Reason Admit Date/Time April 07, 2017 at 21:56 Initial Consult Date 04/11/17 Type of Consultation: ID Referring Provider: BAL MAYER MD Exam/Review of Systems Vital Signs Vitals Vital Signs Date Time Temp Pulse Resp B/P Pulse Ox O2 Delivery O2 Flow Rate FiO2 04/22/17 09:21 Nasal Cannula 2.0 04/22/17 08:22 98.8 72 19 130/59 96 Intake and Output 04/21/17 04/21/17 04/22/17 15:00 23:00 07:00 Intake Total 500 ml 520 ml 650 ml Output Total 3500 ml 3000 ml Balance -3000 ml -2480 ml 650 ml Results Result Diagram: 04/21/17 0435 04/21/17 0435 Results 24 hrs Laboratory Tests Test 04/21/17 17:02 04/21/17 20:29 04/22/17 02:30 04/22/17 08:08 Bedside Glucose 123 149 105 105 Test 04/22/17 11:52 Bedside Glucose 127 Medications Medications Current Medications Ondansetron HCl (Zofran Inj) 4 mg Q6H PRN IV NAUSEA AND/OR VOMITING Last administered on 04/20/17 18:09; Admin Dose 4 MG; Start 04/07/17 at 22:30 Acetaminophen (Tylenol Tab) 650 mg Q6H PRN PO PAIN LEVEL 1-3 OR FEVER Last administered on 04/12/17 17:35; Admin Dose 650 MG; Start 04/07/17 at 22:30 Morphine Sulfate (morphine) 2 mg Q4H PRN IV SEVERE PAIN LEVEL 7-10 Last administered on 04/21/17 18:46; Admin Dose 2 MG; Start 04/07/17 at 22:30 Docusate Sodium (Colace) 100 mg Q12H PRN PO CONSTIPATION Last administered on 05:52; Admin Dose 100 MG; Start 04/07/17 at 22:30 Pantoprazole (Protonix Tab) 40 mg DAILY@06 PO Last administered on 04/22/17 05 :33; Admin Dose 40 MG; Start 04/08/17 at 06:00 Amlodipine Besylate (Norvasc) 5 mg DAILY PO Last administered on 04/22/17 08: 47; Admin Dose 5 MG; Start 04/08/17 at 09:00 Ascorbic Acid (Vitamin C) 500 mg DAILY PO Last administered on 04/22/17 08:47 ; Admin Dose 500 MG; Start 04/08/17 at 09:00 Aspirin (Halfprin) 81 mg DAILY PO ; Start 04/08/17 at 09:00; Status Future Hold Zinc Sulfate (Zinc Sulfate) 220 mg DAILY PO Last administered on 04/22/17 08: 46; Admin Dose 220 MG; Start 04/08/17 at 09:00 Miscellaneous Information 1 ea NOTE XX ; Start 04/07/17 at 23:00 Glucose (Glutose) 15 gm Q15M PRN PO DECREASED GLUCOSE; Start 04/07/17 at 23:00 Glucose (Glutose) 22.5 gm Q15M PRN PO DECREASED GLUCOSE; Start 04/07/17 at 23: 00 Dextrose (D50w Syringe) 25 ml Q15M PRN IV DECREASED GLUCOSE; Start 04/07/17 at 23:00 Dextrose (D50w Syringe) 50 ml Q15M PRN IV DECREASED GLUCOSE; Start 04/07/17 at 23:00 Glucagon (Glucagen) 1 mg Q15M PRN IM DECREASED GLUCOSE; Start 04/07/17 at 23:00 Glucose (Glutose) 15 gm Q15M PRN BUCCAL DECREASED GLUCOSE; Start 04/07/17 at 23 :00 Diagnostic Test (Pha) (Accu-Chek) 1 ea 02 XX Last administered on 04/22/17 02: 31; Admin Dose 1 EA; Start 04/08/17 at 02:00 Collagenase (Santyl) 1 applic DAILY TOP Last administered on 04/22/17 08:50; Admin Dose 1 APPLIC; Start 04/09/17 at 16:00 Collagenase 1 applic 1 applic PRN PRN TOP WOUND CARE Last administered on 00:28; Admin Dose 1 APPLIC; Start 04/09/17 at 14:30 Ceftriaxone Sodium 50 ml @ 100 mls/hr Q24H IVPB Last administered on 17:04; Admin Dose 100 MLS/HR; Start 04/11/17 at 17:00 Fluconazole/ Sodium Chloride (Diflucan 100 Mg/ NS (Pmx)) 50 ml @ 50 mls/hr Q24H IVPB Last administered on 04/21/17 17:04; Admin Dose 50 MLS/HR; Start 04/12/17 at 16:00 Gabapentin (Neurontin) 300 mg TID PO Last administered on 04/22/17 11:53; Admin Dose 300 MG; Start 04/13/17 at 14:15 Lactulose (Enulose) 20 gm Q6H PRN PO CONSTIPATION Last administered on 23:19; Admin Dose 20 GM; Start 04/13/17 at 13:30 Prednisolone Acetate (Pred-Forte 1%) 1 drop BID RIGHT EYE Last administered on 04/22/17 08:46; Admin Dose 1 DROP; Start 04/13/17 at 21:30 Miscellaneous Information Patients own medicat... BID@10,16 XX ; Start 04/14/17 at 10:00 Simethicone (Mylicon) 80 mg Q4H PRN PO GAS PAINS Last administered on 04/15/17 08:15; Admin Dose 80 MG; Start 04/14/17 at 11:09 Epoetin Indra (Epogen (Esrd)) 8,000 units MoWeFr@17 SC Last administered on 04/21 17:27; Admin Dose 8,000 UNITS; Start 04/16/17 at 17:00 Lactobacillus Acidophilus/ Rhamnosus 1 cap 1 cap BID PO Last administered on 08:46; Admin Dose 1 CAP; Start 04/14/17 at 15:00 Vancomycin HCl (Vancocin) 250 ml @ 125 mls/hr Q5D IVPB Last administered on 21:16; Admin Dose 125 MLS/HR; Start 04/16/17 at 22:00 Ondansetron HCl (Zofran Tab) 4 mg Q4H PRN PO NAUSEA AND/OR VOMITING; Start 08/26 at 10:30 Morphine Sulfate (morphine) 10 mg Q3H PRN PO PAIN Last administered on 21:52; Admin Dose 10 MG; Start 04/19/17 at 11:00 Insulin Detemir (Levemir) 10 unit BID@08,20 SC Last administered on 04/22/17 08:10; Admin Dose 10 UNIT; Start 04/20/17 at 20:00 ALYX NAVARRO NP Apr 22, 2017 14:05
[2017-04-22] MEDS: FLUCONAZOLE 100 MG/NS (PMX) 50 ML IVPB SCH (15:25)
[2017-04-22] MEDS: CEFTRIAXONE 1 GM/50 ML (PMX) 50 ML IVPB SCH (17:22)
--- NOTE | 2017-04-22 18:17 | PN ---
DATE: 04/22/2017 SUBJECTIVE: The patient seen. She is complaining of slight tremor in the upper extremity. Not now , it was earlier this morning. Glucose levels are 127, 105, 105. PHYSICAL EXAMINATION: VITAL SIGNS: Temperature 98.8, pulse 72, respirations 19, blood pressure 130/59, saturation 96% on 2 liters. GENERAL: The patient is in no acute distress. The patient is morbidly obese. The patient is pale. CARDIOVASCULAR: Positive S1, S2. Regular rate and rhythm. LUNGS: Clear. ABDOMEN: Soft, nontender. EXTREMITIES: No clubbing, cyanosis, or edema. The patient with left heel wound and left medial thi gh wound. She has right new forearm AV fistula. LABORATORY DATA: No new labs today. Yesterday, white count was 9.9. The patient's glucose levels as noted above, 127, 105, 105. MEDICATIONS: Include: 1. Levemir 10 units twice a day. 2. Morphine p.r.n. 3. Zofran p.r.n. 4. Vancomycin dose per pharmacy. 5. Epogen 8000 every Friday, Friday, Friday. 6. Culturelle b.i.d. 7. Simethicone p.r.n. 8. Pred Forte b.i.d. 9. Neurontin 300 t.i.d. 10. Lactulose p.r.n. 11. Diflucan IV daily. 12. Rocephin 1 gram q.24h. 13. Santyl daily. 14. Norvasc 5 mg daily. 15. Vitamin C 500 mg daily. 16. Zinc sulfate 220 daily. 17. PhosLo 1.3 g t.i.d. 18. Protonix 40 mg daily. 19. Accu-Chek q.a.c. and at bedtime. 20. Hypoglycemia protocol as directed. ASSESSMENT AND PLAN: This is a 61-year-old morbidly obese female with history of diabetes mellitus, end-stage renal disease, hypertension, chronic left thigh wound, who presented initially w ith hematuria, which was secondary to cystitis. 1. Acute cystitis, resolved. Remains on antibiotics per Dr. Guevara. 2. Left medial thigh wound and left heel wound. She does have some pathology and popliteal artery. Further recommendation per Dr. Walton. Status post AV fistula repair. 3. End-stage renal disease. Continue dialysis 3 times a week. Next dialysis is planned for tomorr ow. 4. Infectious disease. Continue above antibiotics, as patient is on vancomycin, Diflucan, on Rocep hin. White count has been normal. Follow up a.m. CBC. 5. Anemia. PRN transfusion. Epogen as needed. 6. Disposition: Soon back to retirement facility. Will ask pillowcase folder to assist. 7. Physical therapy as tolerated. We will follow. Dictated By: BAL BERG/VICTORINA Conf#: [id number] DID#: [id number]
[2017-04-22 20:08] VITALS: BP 109/54; RESP 18
[2017-04-23] VITALS (9 sets, daily range): BP systolic 114–146; BP diastolic 52–76; PULSE 75–89; RESP 18–20
[2017-04-23] MEDS: DOCUSATE SODIUM 100 MG CAP PO PRN (00:29)
[2017-04-23] MEDS: PANTOPRAZOLE (EC) 40 MG TAB PO SCH (05:13)
[2017-04-23 05:59] LABS: ADD SCAN DIFF NO
[2017-04-23 06:03] LABS: BASOPHIL # 0.1 10^3/ul (0.0-0.1); BASOPHILS % 0.6 % (0.0-2.0); EOSINOPHILS # 0.4 10^3/ul (0.0-0.5); EOSINOPHILS % 4.3 % (0.0-7.0); HEMATOCRIT 25.1 % (37.0-47.0); HEMOGLOBIN 7.7 g/dl (12.0-16.0); LYMPHOCYTES % 20.5 % (15.0-51.0); MEAN CORPUSCULAR HEMOGLOBIN 28.9 pg (29.0-33.0); MEAN CORPUSCULAR HGB CONC 30.7 g/dl (32.0-37.0); MEAN CORPUSCULAR VOLUME 94.4 fl (82.0-101.0); MEAN PLATELET VOLUME 9.4 fl (7.4-10.4); MONOCYTE # 1.1 10^3/ul (0.3-0.9); NEUTROPHIL # 5.9 10^3/ul (1.6-7.5); NEUTROPHILS % 61.6 % (39.0-77.0); PLATELET COUNT 366 10^3/UL (140-415); RED BLOOD COUNT 2.66 10^6/ul (4.20-5.40); RED CELL DISTRIBUTION WIDTH 14.6 % (11.5-14.5); WHITE BLOOD COUNT 9.6 10^3/ul (4.8-10.8)
[2017-04-23 06:39] LABS: CALCIUM 8.7 mg/dl (8.4-10.2); CREATININE 6.29 mg/dl (0.44-1.00); POTASSIUM 4.5 mmol/L (3.5-5.1)
[2017-04-23 06:57] LABS: MAGNESIUM 2.7 mg/dl (1.7-2.5); PHOSPHORUS 4.1 mg/dl (2.5-4.9)
[2017-04-23] MEDS: CALCIUM ACETATE 667 MG CAP PO SCH ×4 (07:35→18:10)
[2017-04-23] MEDS: INSULIN DETEMIR [LEVEMIR] 3ML CART SC SCH ×2 (07:57→20:17)
[2017-04-23] MEDS: INSULIN ASPART [NOVOLOG] 3 ML PEN SC SCH ×4 (07:57→20:18)
[2017-04-23] MEDS: GABAPENTIN 300 MG CAP PO SCH ×4 (08:11→20:19)
[2017-04-23] MEDS: LACTOBACILLUS RHAMNOSUS CAP PO SCH ×2 (08:11→20:19)
[2017-04-23] MEDS: ASCORBIC ACID 500 MG TAB PO SCH (08:12)
[2017-04-23] MEDS: ZINC SULFATE 220 MG CAP PO SCH (08:12)
[2017-04-23] MEDS: AMLODIPINE 5 MG TAB PO SCH (08:12)
[2017-04-23] MEDS: PREDNISOLONE ACET 1% 5 ML OPH RIGHT EYE SCH ×2 (08:13→20:19)
--- NOTE | 2017-04-23 11:59 | PN ---
DATE: 04/23/2017 SUBJECTIVE: The patient did have a gross hematuria at the time of her admission and urinary tract i nfection. She did have a [place] catheter that was removed. Now, the patient is voiding and she fred es having any dysuria and any hematuria. OBJECTIVE: VITAL SIGNS: Temperature is 98.5. Pulse is 66, respiration 18, blood pressure 109/54. ABDOMEN: Very obese. There is no abdominal mass palpable. LABORATORY DATA: CBC shows a white count of 9.6, hemoglobin 7.7, hematocrit 25.1. BUN is 31, creat inine 6.29. Patient is on hemodialysis. The sodium 128, potassium 4.5, chloride 91, CO2 of 30. Th e urine culture last one was Ruth Ann albicans but that was treated and that was at the time she did have the indwelling Luns[place] catheter and the catheter has been removed since. The patient was on fluc onazole that was stopped yesterday. IMPRESSION: Gross hematuria secondary to the urinary tract infection and that has been treated and the patient is doing better. She did have urine cytology and urine cytology was also negative. Dictated By: KENISHA BETANCOURT/VICTORINA Conf#: [id number] DID#: [id number]
--- NOTE | 2017-04-23 14:53 | CONS ---
Date/Time of Note Date/Time of Note DATE: 04/23/17 TIME: 14:52 Assessment/Plan Assessment/Plan Chief Complaint/Hosp Course SUBJECTIVE: No acute changes. Alert, eating lunch, feels better. Looks comfortable. No fevers and no diarrhea. INDWELLINGS: Right chest PermCath and left upper extremity AV fistula. ANTIMICROBIALS: 1. Fluconazole 2. Rocephin. 3. IV vancomycin. PHYSICAL EXAMINATION: GENERAL: This is a morbidly obese, elderly woman who is alert, in no distress. HEENT: Head atraumatic, normocephalic. Sclerae anicteric. Buccal mucosa pink. NECK: Obese. CHEST: Rise symmetrical. Breath sounds clear. HEART: S1, S2. ABDOMEN: Soft. Bowel tones present. No tenderness over suprapubic area. EXTREMITIES: No cyanosis. ASSESSMENT: 1. Systemic inflammatory response syndrome with resolving leukocytosis. 2. Left upper thigh chronic necrotic wound, status post debridement 04/16/17, pathology revealed acute inflammation. 3. Status post urinary tract infection and hematuria. 4. End-stage renal disease, hemodialysis dependent. 5. Chronic pain syndrome. 6. Diabetes. 7. Morbid obesity. 8. PAD, s/p angiogram PLAN: The patient remains stable, continue abx. Follow vascular recommendations, local wound care. DW staff Problems: Consultation Date/Type/Reason Admit Date/Time April 07, 2017 at 21:56 Initial Consult Date 04/11/17 Type of Consultation: ID Referring Provider: BAL MAYER MD Exam/Review of Systems Vital Signs Vitals Vital Signs Date Time Temp Pulse Resp B/P Pulse Ox O2 Delivery O2 Flow Rate FiO2 04/23/17 12:49 Nasal Cannula 2.0 04/23/17 07:25 98.4 18 18 129/59 96 Intake and Output 04/22/17 04/22/17 04/23/17 15:00 23:00 07:00 Intake Total 520 ml 450 ml Balance 520 ml 450 ml Results Result Diagram: 04/23/17 0455 04/23/17 0455 Results 24 hrs Laboratory Tests Test 04/22/17 17:45 04/22/17 20:41 04/23/17 04:55 04/23/17 07:53 Bedside Glucose 175 149 137 White Blood Count 9.6 Red Blood Count 2.66 L Hemoglobin 7.7 L Hematocrit 25.1 L Mean Corpuscular Volume 94.4 Mean Corpuscular Hemoglobin 28.9 L Mean Corpuscular Hemoglobin Concent 30.7 L Red Cell Distribution Width 14.6 H Platelet Count 366 Mean Platelet Volume 9.4 Neutrophils % 61.6 Lymphocytes % 20.5 Monocytes % 11.0 Eosinophils % 4.3 Basophils % 0.6 Nucleated Red Blood Cells % 0.0 Neutrophils # 5.9 Lymphocytes # 2.0 Monocytes # 1.1 H Eosinophils # 0.4 Basophils # 0.1 Nucleated Red Blood Cells # 0.0 Sodium Level 128 L Potassium Level 4.5 Chloride Level 91 L Carbon Dioxide Level 30 Anion Gap 12 Blood Urea Nitrogen 31 H Creatinine 6.29 H Glucose Level 128 Calcium Level 8.7 Phosphorus Level 4.1 Magnesium Level 2.7 H Test 04/23/17 11:55 Bedside Glucose 130 Medications Medications Current Medications Ondansetron HCl (Zofran Inj) 4 mg Q6H PRN IV NAUSEA AND/OR VOMITING Last administered on 04/20/17 18:09; Admin Dose 4 MG; Start 04/07/17 at 22:30 Acetaminophen (Tylenol Tab) 650 mg Q6H PRN PO PAIN LEVEL 1-3 OR FEVER Last administered on 04/12/17 17:35; Admin Dose 650 MG; Start 04/07/17 at 22:30 Morphine Sulfate (morphine) 2 mg Q4H PRN IV SEVERE PAIN LEVEL 7-10 Last administered on 04/21/17 18:46; Admin Dose 2 MG; Start 04/07/17 at 22:30 Docusate Sodium (Colace) 100 mg Q12H PRN PO CONSTIPATION Last administered on 00:29; Admin Dose 100 MG; Start 04/07/17 at 22:30 Pantoprazole (Protonix Tab) 40 mg DAILY@06 PO Last administered on 04/23/17 05 :13; Admin Dose 40 MG; Start 04/08/17 at 06:00 Amlodipine Besylate (Norvasc) 5 mg DAILY PO Last administered on 04/22/17 08: 47; Admin Dose 5 MG; Start 04/08/17 at 09:00 Ascorbic Acid (Vitamin C) 500 mg DAILY PO Last administered on 04/22/17 08:47 ; Admin Dose 500 MG; Start 04/08/17 at 09:00 Aspirin (Halfprin) 81 mg DAILY PO ; Start 04/08/17 at 09:00; Status Future Hold Zinc Sulfate (Zinc Sulfate) 220 mg DAILY PO Last administered on 04/22/17 08: 46; Admin Dose 220 MG; Start 04/08/17 at 09:00 Miscellaneous Information 1 ea NOTE XX ; Start 04/07/17 at 23:00 Glucose (Glutose) 15 gm Q15M PRN PO DECREASED GLUCOSE; Start 04/07/17 at 23:00 Glucose (Glutose) 22.5 gm Q15M PRN PO DECREASED GLUCOSE; Start 04/07/17 at 23: 00 Dextrose (D50w Syringe) 25 ml Q15M PRN IV DECREASED GLUCOSE; Start 04/07/17 at 23:00 Dextrose (D50w Syringe) 50 ml Q15M PRN IV DECREASED GLUCOSE; Start 04/07/17 at 23:00 Glucagon (Glucagen) 1 mg Q15M PRN IM DECREASED GLUCOSE; Start 04/07/17 at 23:00 Glucose (Glutose) 15 gm Q15M PRN BUCCAL DECREASED GLUCOSE; Start 04/07/17 at 23 :00 Diagnostic Test (Pha) (Accu-Chek) 1 ea 02 XX Last administered on 04/22/17 02: 31; Admin Dose 1 EA; Start 04/08/17 at 02:00 Collagenase (Santyl) 1 applic DAILY TOP Last administered on 04/22/17 08:50; Admin Dose 1 APPLIC; Start 04/09/17 at 16:00 Collagenase 1 applic 1 applic PRN PRN TOP WOUND CARE Last administered on 00:28; Admin Dose 1 APPLIC; Start 04/09/17 at 14:30 Ceftriaxone Sodium 50 ml @ 100 mls/hr Q24H IVPB Last administered on 17:22; Admin Dose 100 MLS/HR; Start 04/11/17 at 17:00 Fluconazole/ Sodium Chloride (Diflucan 100 Mg/ NS (Pmx)) 50 ml @ 50 mls/hr Q24H IVPB Last administered on 04/22/17 15:25; Admin Dose 50 MLS/HR; Start 04/12/17 at 16:00 Gabapentin (Neurontin) 300 mg TID PO Last administered on 04/23/17 12:57; Admin Dose 300 MG; Start 04/13/17 at 14:15 Lactulose (Enulose) 20 gm Q6H PRN PO CONSTIPATION Last administered on 23:19; Admin Dose 20 GM; Start 04/13/17 at 13:30 Prednisolone Acetate (Pred-Forte 1%) 1 drop BID RIGHT EYE Last administered on 04/23/17 08:13; Admin Dose 1 DROP; Start 04/13/17 at 21:30 Miscellaneous Information Patients own medicat... BID@10,16 XX ; Start 04/14/17 at 10:00 Simethicone (Mylicon) 80 mg Q4H PRN PO GAS PAINS Last administered on 04/15/17 08:15; Admin Dose 80 MG; Start 04/14/17 at 11:09 Epoetin Indra (Epogen (Esrd)) 8,000 units MoWeFr@17 SC Last administered on 04/21 17:27; Admin Dose 8,000 UNITS; Start 04/16/17 at 17:00 Lactobacillus Acidophilus/ Rhamnosus 1 cap 1 cap BID PO Last administered on 20:45; Admin Dose 1 CAP; Start 04/14/17 at 15:00 Vancomycin HCl (Vancocin) 250 ml @ 125 mls/hr Q5D IVPB Last administered on 21:16; Admin Dose 125 MLS/HR; Start 04/16/17 at 22:00 Ondansetron HCl (Zofran Tab) 4 mg Q4H PRN PO NAUSEA AND/OR VOMITING; Start 08/26 at 10:30 Morphine Sulfate (morphine) 10 mg Q3H PRN PO PAIN Last administered on 21:52; Admin Dose 10 MG; Start 04/19/17 at 11:00 Insulin Detemir (Levemir) 10 unit BID@08,20 SC Last administered on 04/23/17 07:57; Admin Dose 10 UNIT; Start 04/20/17 at 20:00 ALYX NAVARRO NP Apr 23, 2017 14:53
--- NOTE | 2017-04-23 17:14 | PN ---
Date/Time of Note Date/Time of Note DATE: 04/23/17 TIME: 17:10 Assessment/Plan Lines/Catheters IV Catheter Type (from [facility] PICC Line Lunsford in Place (from Nrs): No Assessment/Plan Chief Complaint/Hosp Course -End-stage renal disease: S/P RUE fistulogram - she has issues with her venous cannulation access during dialysis. She does have tributaries that can be ligated in order to improve the flow, otherwise we will schedule patient for revision of her fistula -Bilateral lower extremity atherosclerosis & LLE ulcer: The patient has developed necrotic thigh wound post ablation, in addition to her heel ulcer and nonpalpable pedal pulses. CT angiography demonstrated perfusion to the lower leg. Will therefore, plan to followup with the ulcers closely as an outpt -Continue with wound care per our multidisciplinary team recommendations -Recommend Heel Medix boots -Optimize vascular status (BP meds, diet, nutrition, exercise, sugar control, antiplatelets). -Recommend PT, OT and out of bed for the patient as she had mentioned she is somewhat ambulatory. -Discussed findings, plan and management with the patient, she understands. -Thank you for allowing us to partake in the care of your patient. Please call with any questions. Problems: Subjective 24 Hr Interval Summary pt has issues with the venous cannulation flow, Exam/Review of Systems Vital Signs Vitals Vital Signs Date Time Temp Pulse Resp B/P Pulse Ox O2 Delivery O2 Flow Rate FiO2 04/23/17 16:45 88 18 04/23/17 12:49 Nasal Cannula 2.0 04/23/17 07:25 98.4 129/59 96 Intake and Output 04/22/17 04/22/17 04/23/17 15:00 23:00 07:00 Intake Total 520 ml 450 ml Balance 520 ml 450 ml Exam Free Text/Dictation GENERAL: Alert and oriented x3, PULMONARY: Clear to auscultation bilaterally, Right chest wall catheter clean and dry, CARDIOVASCULAR: S1, S2 present. ABDOMEN: Soft, nontender, nondistended. Bowel sounds positive. Large truncal obesity. EXTREMITIES: -Right lower extremity unable to palpate the femoral pulse secondary to body habitus, nonpalpable pedal pulse. Motor and sensory intact, although weak. Capillary refill about 4 seconds. Presence of lipodermatosclerosis. -Left lower extremity unable to palpate the femoral pulse secondary to body habitus, nonpalpable pedal pulse. Motor and sensory seems to be intact. Capillary refill 3 to 4 seconds. Presence of lipodermatosclerosis. Area of necrotic wound in the medial aspect of the thigh with surrounding erythema. -RUE: Palpable brachial pulse, motor/sensory intact, wrist fistula with bruit and thrill present - improved compared to before, surgical scar well healed, cap refill 3 seconds Results Result Diagram: 04/23/17 0455 04/23/17 0455 JEWELS OSORIO MD Apr 23, 2017 17:14
[2017-04-23] MEDS: FLUCONAZOLE 100 MG/NS (PMX) 50 ML IVPB SCH (17:30)
[2017-04-23] MEDS ORDERED: ACETAMINOPHEN 325 MG TAB PO ONE (18:00)
[2017-04-23] MEDS: CEFTRIAXONE 1 GM/50 ML (PMX) 50 ML IVPB SCH (18:08)
[2017-04-23] MEDS: COLLAGENASE 30 GM TUBE TOP SCH (18:09)
[2017-04-23] MEDS: EPOETIN 4000 UNITS/1 ML INJ (ESRD) SC SCH (18:10)
--- NOTE | 2017-04-23 19:04 | PN ---
DATE: 04/23/2017 The patient was seen. H and H was noted to be low at 7.7/25. We will transfuse him 1 unit of PRBCs . The patient is status post dialysis. PHYSICAL EXAMINATION: VITAL SIGNS: Temperature is 98.4, pulse is 75, respirations 18, blood pressure 129/59, saturation 9 6% on 2 liters. GENERAL: Morbidly obese, pale. CARDIOVASCULAR: S1, S2, regular rate. LUNGS: Clear. ABDOMEN: Soft, nontender. EXTREMITIES: No clubbing, cyanosis, or edema. The patient does have a wound in the left heel and the left medial thigh. LABORATORY DATA: Sodium is 128, potassium 4.5, chloride 91, bicarbonate 30, BUN is 31, creatinine 6 .29, glucose of 128. White count is 9.6, hemoglobin 7.7, hematocrit 25, platelet count 366 with nor mal differential. MEDICATIONS: 1. Tylenol p.r.n. 2. Levemir 10 units b.i.d. 3. Morphine p.r.n. 4. Zofran p.r.n. 5. Vancomycin dose per pharmacy. 6. Epogen 8000 on Friday, Friday and Friday. 7. Culturelle b.i.d. 8. Simethicone q.4h. p.r.n. 9. Neurontin 300 daily. 10. Lactulose p.r.n. 11. Diflucan daily. 12. Rocephin 1 gram q.24h. 13. Santyl daily and p.r.n. 14. Norvasc 5 mg daily. 15. Vitamin C 500 mg daily. 16. Zinc sulfate 220 daily. 15. Insulin aspart per sliding. 16. PhosLo 1.3 grams t.i.d. 17. Protonix 40 mg daily. 18. Hypoglycemia protocol as directed. ASSESSMENT AND PLAN: This is a 61-year-old morbidly obese female with history of diabetes mellitus, end-stage renal disease, hypertension, chronic left thigh wound who presented initially wi th hematuria and was found to have cystitis. 1. Acute cystitis, resolved. 2. Left medial thigh wound. Continue p.r.n. debridements. Difficult to elicit secondary to his we ight and vascular disease. 3. Arteriosclerotic cardiovascular disease. Vascular surgery is following. She does have some pop liteal artery obstruction. Vascular to follow. 4. End-stage renal disease. Continue dialysis 3 times a week. 5. Anemia, likely anemia of chronic disease. No evidence of active bleeding. Epogen is 8000 every Friday, Friday, Friday. We will transfuse the patient 1 unit of PRBC. 6. Disposition to retirement facility. Discussed with case management assistant, awaiting approval. 7. Morbidly obese state. Weight loss is advised. Follow up with physical therapy. 8. Continue wound care. 9. Diabetes mellitus. Glucose levels are in the low 100s. Continue Levemir at 10 units twice a da y. 10. Continue probiotics with Culturelle. 11. Stool softener as needed. DISPOSITION: Hopefully tomorrow. We will follow. Dictated By: BAL BERG/VICTORINA Conf#: [id number] DID#: [id number]
[2017-04-24] MEDS: ACCUCHECK AT 2AM (Patients on SS coverage) XX SCH (01:52)
[2017-04-24 05:11] LABS: ADD SCAN DIFF NO
[2017-04-24 05:19] LABS: BASOPHIL # 0.1 10^3/ul (0.0-0.1); BASOPHILS % 0.6 % (0.0-2.0); EOSINOPHILS # 0.4 10^3/ul (0.0-0.5); HEMATOCRIT 28.7 % (37.0-47.0); HEMOGLOBIN 8.8 g/dl (12.0-16.0); LYMPHOCYTES % 18.2 % (15.0-51.0); MEAN CORPUSCULAR HEMOGLOBIN 28.7 pg (29.0-33.0); MEAN CORPUSCULAR HGB CONC 30.7 g/dl (32.0-37.0); MEAN CORPUSCULAR VOLUME 93.5 fl (82.0-101.0); MEAN PLATELET VOLUME 9.1 fl (7.4-10.4); MONOCYTE # 1.1 10^3/ul (0.3-0.9); MONOCYTES % 10.5 % (0.0-11.0); NEUTROPHILS % 64.8 % (39.0-77.0); PLATELET COUNT 368 10^3/UL (140-415); RED BLOOD COUNT 3.07 10^6/ul (4.20-5.40); RED CELL DISTRIBUTION WIDTH 14.9 % (11.5-14.5); WHITE BLOOD COUNT 10.8 10^3/ul (4.8-10.8)
[2017-04-24 05:43] LABS: MAGNESIUM 2.6 mg/dl (1.7-2.5); PHOSPHORUS 3.8 mg/dl (2.5-4.9)
[2017-04-24 05:46] LABS: CALCIUM 8.8 mg/dl (8.4-10.2); CREATININE 5.44 mg/dl (0.44-1.00); POTASSIUM 4.4 mmol/L (3.5-5.1)
[2017-04-24] MEDS: PANTOPRAZOLE (EC) 40 MG TAB PO SCH (05:50)
[2017-04-24 07:20] VITALS: BP 138/63; RESP 18
[2017-04-24] MEDS: INSULIN ASPART [NOVOLOG] 3 ML PEN SC SCH ×4 (08:00→20:47)
[2017-04-24] MEDS: INSULIN DETEMIR [LEVEMIR] 3ML CART SC SCH ×2 (08:04→20:47)
[2017-04-24] MEDS: CALCIUM ACETATE 667 MG CAP PO SCH ×3 (09:14→17:35)
[2017-04-24] MEDS: ZINC SULFATE 220 MG CAP PO SCH (09:14)
[2017-04-24] MEDS: AMLODIPINE 5 MG TAB PO SCH (09:14)
[2017-04-24] MEDS: LACTOBACILLUS RHAMNOSUS CAP PO SCH ×2 (09:14→20:47)
[2017-04-24] MEDS: ASCORBIC ACID 500 MG TAB PO SCH (09:14)
[2017-04-24] MEDS: GABAPENTIN 300 MG CAP PO SCH ×3 (09:14→20:47)
[2017-04-24] MEDS: PREDNISOLONE ACET 1% 5 ML OPH RIGHT EYE SCH ×2 (09:15→20:47)
--- NOTE | 2017-04-24 13:55 | PN ---
DATE: 04/24/2017 SUBJECTIVE: The patient is seen, complaining of slight tremor. I noted Dr. Isabelle jones. I left him a message as I was unsure about the pathology seen at the left popliteal artery seen on the CT angiogram and had a long conversation with the patient's daughter, her name is fabrice Ortiz ne number [phone], we discussed plan of care. She definitely wants her to have physical therap y, which I think is the most important thing for her. PHYSICAL EXAMINATION: VITAL SIGNS: T-max 99, temperature 98.8, pulse 78, respirations 18, blood pressure 138/63, saturati on 96% on 2 liters. GENERAL: The patient in no acute distress. The patient is morbidly obese. CARDIOVASCULAR: Positive S1, S2, regular rate and rhythm. LUNGS: Clear. ABDOMEN: Soft, obese. EXTREMITIES: There is no clubbing, cyanosis, or edema. Left heel wound, left medial thigh wound. No significant pain. LABORATORY DATA: White count is 10.8, hemoglobin 8.8, hematocrit 29. Platelet count 368, neutrophi ls 65%, lymphocytes 18%. The patient is status post 1 unit of PRBC. H and H corrected accordingly. Sodium is 130, potassium 4.4, chloride 93, bicarbonate 30, BUN is 27, creatinine 5.44. Last gluco se levels 154 and 118. MEDICATIONS: All reviewed and include the followin. Levemir 10 units b.i.d. 2. Morphine p.r.n. 3. Zofran p.r.n. 4. Vancomycin IV dose per pharmacy. 5. Epogen 8000 q. Friday, Friday, Friday. 6. Culturelle b.i.d. 7. Simethicone p.r.n. 8. Pred Forte eyedrops b.i.d. 9. Neurontin 300 t.i.d. 10. Lactulose p.r.n. 11. Diflucan 100 mg IV daily. 12. Rocephin 1 gram q.24h. 13. Santyl daily. 14. Norvasc 5 mg daily. 15. Vitamin C 500 mg daily. 16. Zinc sulfate 220 mg daily. 17. Insulin aspart per sliding scale. 18. PhosLo 1.3 grams t.i.d. 19. Protonix 30 mg daily. 20. Hypoglycemia protocol as directed. ASSESSMENT AND PLAN: 1. This is a 61-year-old morbidly obese female with history of diabetes mellitus, end-stag e renal disease, hypertension, chronic left thigh wound, who presented initially with hematuria seco ndary to cystitis. 2. Acute cystitis, resolved. 3. Left medial thigh wound and left heel wound, vascular surgery to follow, debridement p.r.n. I ap preciate podiatry consultation. Continue heel protectors. 4. End-stage renal disease, dialysis 3 times a week Friday, Friday and Friday. Next dialysis is due tomorrow. 5. Anemia p.r.n. transfusion. Continue Epogen. 6. Currently no evidence of active bleeding. 7. Morbidly obese state. Physical therapy as tolerated. Weight loss is advised. 8. Diabetes mellitus. Continue Levemir 10 units b.i.d. Glucose levels are in the low 100s. 9. Continue probiotics with Culturelle. 10. Antibiotics per Dr. Guevara as she is finishing antibiotics as she is on Rocephin, vancomycin an d Diflucan. DISPOSITION: Soon. Acute rehabilitation evaluation was requested. We will follow. Dictated By: BAL BERG/VICTORINA Conf#: [id number] DID#: [id number]
[2017-04-24] MEDS: FLUCONAZOLE 100 MG/NS (PMX) 50 ML IVPB SCH (15:15)
[2017-04-24] MEDS: CEFTRIAXONE 1 GM/50 ML (PMX) 50 ML IVPB SCH (16:29)
[2017-04-24] MEDS: COLLAGENASE 30 GM TUBE TOP SCH (16:31)
--- NOTE | 2017-04-24 16:32 | CONS ---
Date/Time of Note Date/Time of Note DATE: 04/24/17 TIME: 16:31 Assessment/Plan Assessment/Plan Chief Complaint/Hosp Course - ESRD ON HEMODIALYSIS @ [facility] [place] - ANEMIA - HEMATURIA / BLEEDING - DM - HYPERTENSION - RECENT Hx OF LEG CELLULITIS ( ON ABX ) - HIGH PHOS. - HYPONATREMIA PLAN: Continue with HD as planned Continue with EPOGEN Check Iron status Continue with Abx Problems: Consultation Date/Type/Reason Admit Date/Time April 07, 2017 at 21:56 Initial Consult Date 04/09/17 Type of Consultation: NEPHROLOGY Reason for Consultation - ESRD Referring Provider: BAL MAYER MD 24 HR Interval Summary Constitutional: improved Exam/Review of Systems Vital Signs Vitals Vital Signs Date Time Temp Pulse Resp B/P Pulse Ox O2 Delivery O2 Flow Rate FiO2 04/24/17 11:10 Nasal Cannula 2.0 04/24/17 07:20 98.8 78 18 138/63 96 Intake and Output 04/23/17 04/23/17 04/24/17 15:00 23:00 07:00 Intake Total 1520 ml 600 ml Output Total 4500 ml Balance -2980 ml 600 ml Exam Constitutional: alert Psych: no complaints Respiratory: crackles/rales Cardiovascular: edema, regular rate and rhythm, systolic murmur Gastrointestinal: soft Results Result Diagram: 04/24/17 0440 04/24/17 0440 Results 24 hrs Laboratory Tests Test 04/23/17 17:34 04/23/17 20:15 04/24/17 01:40 04/24/17 04:40 Bedside Glucose 176 222 H 134 White Blood Count 10.8 Red Blood Count 3.07 L Hemoglobin 8.8 L Hematocrit 28.7 L Mean Corpuscular Volume 93.5 Mean Corpuscular Hemoglobin 28.7 L Mean Corpuscular Hemoglobin Concent 30.7 L Red Cell Distribution Width 14.9 H Platelet Count 368 Mean Platelet Volume 9.1 Neutrophils % 64.8 Lymphocytes % 18.2 Monocytes % 10.5 Eosinophils % 4.0 Basophils % 0.6 Nucleated Red Blood Cells % 0.0 Neutrophils # 7.0 Lymphocytes # 2.0 Monocytes # 1.1 H Eosinophils # 0.4 Basophils # 0.1 Nucleated Red Blood Cells # 0.0 Sodium Level 130 L Potassium Level 4.4 Chloride Level 93 L Carbon Dioxide Level 30 Anion Gap 11 Blood Urea Nitrogen 27 H Creatinine 5.44 H Glucose Level 113 Calcium Level 8.8 Phosphorus Level 3.8 Magnesium Level 2.6 H Test 04/24/17 06:38 04/24/17 08:01 04/24/17 11:54 Lab Scanned Report BLOOD TRANSFUSION Bedside Glucose 118 154 Medications Medications Current Medications Ondansetron HCl (Zofran Inj) 4 mg Q6H PRN IV NAUSEA AND/OR VOMITING Last administered on 04/20/17 18:09; Admin Dose 4 MG; Start 04/07/17 at 22:30 Acetaminophen (Tylenol Tab) 650 mg Q6H PRN PO PAIN LEVEL 1-3 OR FEVER Last administered on 04/12/17 17:35; Admin Dose 650 MG; Start 04/07/17 at 22:30 Morphine Sulfate (morphine) 2 mg Q4H PRN IV SEVERE PAIN LEVEL 7-10 Last administered on 04/21/17 18:46; Admin Dose 2 MG; Start 04/07/17 at 22:30 Docusate Sodium (Colace) 100 mg Q12H PRN PO CONSTIPATION Last administered on 00:29; Admin Dose 100 MG; Start 04/07/17 at 22:30 Pantoprazole (Protonix Tab) 40 mg DAILY@06 PO Last administered on 04/24/17 05 :50; Admin Dose 40 MG; Start 04/08/17 at 06:00 Amlodipine Besylate (Norvasc) 5 mg DAILY PO Last administered on 04/24/17 09: 14; Admin Dose 5 MG; Start 04/08/17 at 09:00 Ascorbic Acid (Vitamin C) 500 mg DAILY PO Last administered on 04/24/17 09:14 ; Admin Dose 500 MG; Start 04/08/17 at 09:00 Aspirin (Halfprin) 81 mg DAILY PO ; Start 04/08/17 at 09:00; Status Future Hold Zinc Sulfate (Zinc Sulfate) 220 mg DAILY PO Last administered on 04/24/17 09: 14; Admin Dose 220 MG; Start 04/08/17 at 09:00 Miscellaneous Information 1 ea NOTE XX ; Start 04/07/17 at 23:00 Glucose (Glutose) 15 gm Q15M PRN PO DECREASED GLUCOSE; Start 04/07/17 at 23:00 Glucose (Glutose) 22.5 gm Q15M PRN PO DECREASED GLUCOSE; Start 04/07/17 at 23: 00 Dextrose (D50w Syringe) 25 ml Q15M PRN IV DECREASED GLUCOSE; Start 04/07/17 at 23:00 Dextrose (D50w Syringe) 50 ml Q15M PRN IV DECREASED GLUCOSE; Start 04/07/17 at 23:00 Glucagon (Glucagen) 1 mg Q15M PRN IM DECREASED GLUCOSE; Start 04/07/17 at 23:00 Glucose (Glutose) 15 gm Q15M PRN BUCCAL DECREASED GLUCOSE; Start 04/07/17 at 23 :00 Diagnostic Test (Pha) (Accu-Chek) 1 ea 02 XX Last administered on 04/24/17 01: 52; Admin Dose 1 EA; Start 04/08/17 at 02:00 Collagenase (Santyl) 1 applic DAILY TOP Last administered on 04/23/17 18:09; Admin Dose 1 APPLIC; Start 04/09/17 at 16:00 Collagenase 1 applic 1 applic PRN PRN TOP WOUND CARE Last administered on 00:28; Admin Dose 1 APPLIC; Start 04/09/17 at 14:30 Ceftriaxone Sodium 50 ml @ 100 mls/hr Q24H IVPB Last administered on 16:29; Admin Dose 100 MLS/HR; Start 04/11/17 at 17:00 Fluconazole/ Sodium Chloride (Diflucan 100 Mg/ NS (Pmx)) 50 ml @ 50 mls/hr Q24H IVPB Last administered on 04/24/17 15:15; Admin Dose 50 MLS/HR; Start 04/12/17 at 16:00 Gabapentin (Neurontin) 300 mg TID PO Last administered on 04/24/17 13:04; Admin Dose 300 MG; Start 04/13/17 at 14:15 Lactulose (Enulose) 20 gm Q6H PRN PO CONSTIPATION Last administered on 23:19; Admin Dose 20 GM; Start 04/13/17 at 13:30 Prednisolone Acetate (Pred-Forte 1%) 1 drop BID RIGHT EYE Last administered on 04/24/17 09:15; Admin Dose 1 DROP; Start 04/13/17 at 21:30 Miscellaneous Information Patients own medicat... BID@10,16 XX ; Start 04/14/17 at 10:00 Simethicone (Mylicon) 80 mg Q4H PRN PO GAS PAINS Last administered on 04/15/17 08:15; Admin Dose 80 MG; Start 04/14/17 at 11:09 Epoetin Indra (Epogen (Esrd)) 8,000 units MoWeFr@17 SC Last administered on 04/23 18:10; Admin Dose 8,000 UNITS; Start 04/16/17 at 17:00 Lactobacillus Acidophilus/ Rhamnosus 1 cap 1 cap BID PO Last administered on 09:14; Admin Dose 1 CAP; Start 04/14/17 at 15:00 Vancomycin HCl (Vancocin) 250 ml @ 125 mls/hr Q5D IVPB Last administered on 21:16; Admin Dose 125 MLS/HR; Start 04/16/17 at 22:00 Ondansetron HCl (Zofran Tab) 4 mg Q4H PRN PO NAUSEA AND/OR VOMITING; Start 08/26 at 10:30 Morphine Sulfate (morphine) 10 mg Q3H PRN PO PAIN Last administered on 21:52; Admin Dose 10 MG; Start 04/19/17 at 11:00 Insulin Detemir (Levemir) 10 unit BID@08,20 SC Last administered on 04/24/17 08:04; Admin Dose 10 UNIT; Start 04/20/17 at 20:00 ANIBAL ALMANZAR MD Apr 24, 2017 16:32
[2017-04-24 20:17] VITALS: BP 128/58; RESP 16
--- NOTE | 2017-04-24 21:04 | CONS ---
Date/Time of Note Date/Time of Note DATE: 04/24/17 TIME: 21:03 Assessment/Plan Assessment/Plan Chief Complaint/Hosp Course SUBJECTIVE: No acute changes. Alert. Looks comfortable. No fevers INDWELLINGS: Right chest PermCath and left upper extremity AV fistula. ANTIMICROBIALS: 1. Fluconazole 2. Rocephin. 3. IV vancomycin. PHYSICAL EXAMINATION: GENERAL: This is a morbidly obese, elderly woman who is alert, in no distress. HEENT: Head atraumatic, normocephalic. Sclerae anicteric. Buccal mucosa pink. NECK: Obese. CHEST: Rise symmetrical. Breath sounds clear. HEART: S1, S2. ABDOMEN: Soft. Bowel tones present. No tenderness over suprapubic area. EXTREMITIES: No cyanosis. ASSESSMENT: 1. Systemic inflammatory response syndrome with resolving leukocytosis. 2. Left upper thigh chronic necrotic wound, status post debridement 04/16/17, pathology revealed acute inflammation. 3. Status post urinary tract infection and hematuria. 4. End-stage renal disease, hemodialysis dependent. 5. Chronic pain syndrome. 6. Diabetes. 7. Morbid obesity. 8. PAD, s/p angiogram PLAN: The patient remains stable, completing abx. Follow vascular recommendations, local wound care. DW staff Problems: Consultation Date/Type/Reason Admit Date/Time April 07, 2017 at 21:56 Initial Consult Date 04/11/17 Type of Consultation: ID Referring Provider: BAL MAYER MD Exam/Review of Systems Vital Signs Vitals Vital Signs Date Time Temp Pulse Resp B/P Pulse Ox O2 Delivery O2 Flow Rate FiO2 04/24/17 20:17 98.6 71 16 128/58 93 04/24/17 11:10 Nasal Cannula 2.0 Intake and Output 04/23/17 04/23/17 04/24/17 15:00 23:00 07:00 Intake Total 1520 ml 600 ml Output Total 4500 ml Balance -2980 ml 600 ml Results Result Diagram: 04/24/17 0440 04/24/17 0440 Results 24 hrs Laboratory Tests Test 04/24/17 01:40 04/24/17 04:40 04/24/17 06:38 04/24/17 08:01 Bedside Glucose 134 118 White Blood Count 10.8 Red Blood Count 3.07 L Hemoglobin 8.8 L Hematocrit 28.7 L Mean Corpuscular Volume 93.5 Mean Corpuscular Hemoglobin 28.7 L Mean Corpuscular Hemoglobin Concent 30.7 L Red Cell Distribution Width 14.9 H Platelet Count 368 Mean Platelet Volume 9.1 Neutrophils % 64.8 Lymphocytes % 18.2 Monocytes % 10.5 Eosinophils % 4.0 Basophils % 0.6 Nucleated Red Blood Cells % 0.0 Neutrophils # 7.0 Lymphocytes # 2.0 Monocytes # 1.1 H Eosinophils # 0.4 Basophils # 0.1 Nucleated Red Blood Cells # 0.0 Sodium Level 130 L Potassium Level 4.4 Chloride Level 93 L Carbon Dioxide Level 30 Anion Gap 11 Blood Urea Nitrogen 27 H Creatinine 5.44 H Glucose Level 113 Calcium Level 8.8 Phosphorus Level 3.8 Magnesium Level 2.6 H Lab Scanned Report BLOOD TRANSFUSION Test 04/24/17 11:54 04/24/17 17:33 04/24/17 20:44 Bedside Glucose 154 138 177 Medications Medications Current Medications Ondansetron HCl (Zofran Inj) 4 mg Q6H PRN IV NAUSEA AND/OR VOMITING Last administered on 04/20/17 18:09; Admin Dose 4 MG; Start 04/07/17 at 22:30 Acetaminophen (Tylenol Tab) 650 mg Q6H PRN PO PAIN LEVEL 1-3 OR FEVER Last administered on 04/12/17 17:35; Admin Dose 650 MG; Start 04/07/17 at 22:30 Morphine Sulfate (morphine) 2 mg Q4H PRN IV SEVERE PAIN LEVEL 7-10 Last administered on 04/21/17 18:46; Admin Dose 2 MG; Start 04/07/17 at 22:30 Docusate Sodium (Colace) 100 mg Q12H PRN PO CONSTIPATION Last administered on 00:29; Admin Dose 100 MG; Start 04/07/17 at 22:30 Pantoprazole (Protonix Tab) 40 mg DAILY@06 PO Last administered on 04/24/17 05 :50; Admin Dose 40 MG; Start 04/08/17 at 06:00 Amlodipine Besylate (Norvasc) 5 mg DAILY PO Last administered on 04/24/17 09: 14; Admin Dose 5 MG; Start 04/08/17 at 09:00 Ascorbic Acid (Vitamin C) 500 mg DAILY PO Last administered on 04/24/17 09:14 ; Admin Dose 500 MG; Start 04/08/17 at 09:00 Aspirin (Halfprin) 81 mg DAILY PO ; Start 04/08/17 at 09:00; Status Future Hold Zinc Sulfate (Zinc Sulfate) 220 mg DAILY PO Last administered on 04/24/17 09: 14; Admin Dose 220 MG; Start 04/08/17 at 09:00 Miscellaneous Information 1 ea NOTE XX ; Start 04/07/17 at 23:00 Glucose (Glutose) 15 gm Q15M PRN PO DECREASED GLUCOSE; Start 04/07/17 at 23:00 Glucose (Glutose) 22.5 gm Q15M PRN PO DECREASED GLUCOSE; Start 04/07/17 at 23: 00 Dextrose (D50w Syringe) 25 ml Q15M PRN IV DECREASED GLUCOSE; Start 04/07/17 at 23:00 Dextrose (D50w Syringe) 50 ml Q15M PRN IV DECREASED GLUCOSE; Start 04/07/17 at 23:00 Glucagon (Glucagen) 1 mg Q15M PRN IM DECREASED GLUCOSE; Start 04/07/17 at 23:00 Glucose (Glutose) 15 gm Q15M PRN BUCCAL DECREASED GLUCOSE; Start 04/07/17 at 23 :00 Diagnostic Test (Pha) (Accu-Chek) 1 ea 02 XX Last administered on 04/24/17 01: 52; Admin Dose 1 EA; Start 04/08/17 at 02:00 Collagenase (Santyl) 1 applic DAILY TOP Last administered on 04/24/17 16:31; Admin Dose 1 APPLIC; Start 04/09/17 at 16:00 Collagenase 1 applic 1 applic PRN PRN TOP WOUND CARE Last administered on 00:28; Admin Dose 1 APPLIC; Start 04/09/17 at 14:30 Ceftriaxone Sodium 50 ml @ 100 mls/hr Q24H IVPB Last administered on 16:29; Admin Dose 100 MLS/HR; Start 04/11/17 at 17:00 Fluconazole/ Sodium Chloride (Diflucan 100 Mg/ NS (Pmx)) 50 ml @ 50 mls/hr Q24H IVPB Last administered on 04/24/17 15:15; Admin Dose 50 MLS/HR; Start 04/12/17 at 16:00 Gabapentin (Neurontin) 300 mg TID PO Last administered on 04/24/17 20:47; Admin Dose 300 MG; Start 04/13/17 at 14:15 Lactulose (Enulose) 20 gm Q6H PRN PO CONSTIPATION Last administered on 23:19; Admin Dose 20 GM; Start 04/13/17 at 13:30 Prednisolone Acetate (Pred-Forte 1%) 1 drop BID RIGHT EYE Last administered on 04/24/17 20:47; Admin Dose 1 DROP; Start 04/13/17 at 21:30 Miscellaneous Information Patients own medicat... BID@10,16 XX ; Start 04/14/17 at 10:00 Simethicone (Mylicon) 80 mg Q4H PRN PO GAS PAINS Last administered on 04/15/17 08:15; Admin Dose 80 MG; Start 04/14/17 at 11:09 Epoetin Indra (Epogen (Esrd)) 8,000 units MoWeFr@17 SC Last administered on 04/23 18:10; Admin Dose 8,000 UNITS; Start 04/16/17 at 17:00 Lactobacillus Acidophilus/ Rhamnosus 1 cap 1 cap BID PO Last administered on 20:47; Admin Dose 1 CAP; Start 04/14/17 at 15:00 Vancomycin HCl (Vancocin) 250 ml @ 125 mls/hr Q5D IVPB Last administered on 21:16; Admin Dose 125 MLS/HR; Start 04/16/17 at 22:00 Ondansetron HCl (Zofran Tab) 4 mg Q4H PRN PO NAUSEA AND/OR VOMITING; Start 08/26 at 10:30 Morphine Sulfate (morphine) 10 mg Q3H PRN PO PAIN Last administered on 21:52; Admin Dose 10 MG; Start 04/19/17 at 11:00 Insulin Detemir (Levemir) 10 unit BID@08,20 SC Last administered on 04/24/17 20:47; Admin Dose 10 UNIT; Start 04/20/17 at 20:00 ALYX NAVARRO NP Apr 24, 2017 21:04
[2017-04-25] VITALS (9 sets, daily range): BP systolic 115–136; BP diastolic 55–71; PULSE 75–81; RESP 16–18
[2017-04-25] MEDS: ACCUCHECK AT 2AM (Patients on SS coverage) XX SCH (02:02)
[2017-04-25] MEDS: PANTOPRAZOLE (EC) 40 MG TAB PO SCH (05:30)
[2017-04-25] MEDS: INSULIN ASPART [NOVOLOG] 3 ML PEN SC SCH ×4 (08:00→21:00)
[2017-04-25] MEDS: CALCIUM ACETATE 667 MG CAP PO SCH ×3 (08:26→18:17)
[2017-04-25] MEDS: ZINC SULFATE 220 MG CAP PO SCH (08:27)
[2017-04-25] MEDS: GABAPENTIN 300 MG CAP PO SCH ×3 (08:27→21:02)
[2017-04-25] MEDS: AMLODIPINE 5 MG TAB PO SCH (08:27)
[2017-04-25] MEDS: LACTOBACILLUS RHAMNOSUS CAP PO SCH ×2 (08:27→21:02)
[2017-04-25] MEDS: ASCORBIC ACID 500 MG TAB PO SCH (08:28)
[2017-04-25] MEDS: PREDNISOLONE ACET 1% 5 ML OPH RIGHT EYE SCH ×2 (08:28→21:03)
[2017-04-25] MEDS: INSULIN DETEMIR [LEVEMIR] 3ML CART SC SCH ×2 (08:29→21:04)
[2017-04-25] MEDS: ONDANSETRON 4 MG INJ IV PRN (09:07)
[2017-04-25] MEDS: COLLAGENASE 30 GM TUBE TOP SCH (09:44)
--- NOTE | 2017-04-25 11:30 | CONS ---
Date/Time of Note Date/Time of Note DATE: 04/25/17 TIME: 11:29 Assessment/Plan Assessment/Plan Chief Complaint/Hosp Course - ESRD ON HEMODIALYSIS @ [facility] [place] - ANEMIA - HEMATURIA / BLEEDING - DM - HYPERTENSION - RECENT Hx OF LEG CELLULITIS ( ON ABX ) - HIGH PHOS. - HYPONATREMIA PLAN: Continue with HD as planned Bedside dialysis Continue with EPOGEN Check Iron status Continue with Abx Problems: Consultation Date/Type/Reason Admit Date/Time April 07, 2017 at 21:56 Initial Consult Date 04/09/17 Type of Consultation: NEPHROLOGY Reason for Consultation ESRD on dialysis Referring Provider: BAL MAYER MD 24 HR Interval Summary Constitutional: no complaints Exam/Review of Systems Vital Signs Vitals Vital Signs Date Time Temp Pulse Resp B/P Pulse Ox O2 Delivery O2 Flow Rate FiO2 04/25/17 08:00 98.4 66 16 131/60 94 04/24/17 20:40 Nasal Cannula 2.0 Intake and Output 04/24/17 04/24/17 04/25/17 15:00 23:00 07:00 Intake Total 820 ml 400 ml Balance 820 ml 400 ml Exam Constitutional: alert, oriented Respiratory: crackles/rales Cardiovascular: edema, regular rate and rhythm, systolic murmur Gastrointestinal: soft Results Result Diagram: 04/24/17 0440 04/24/17 0440 Results 24 hrs Laboratory Tests Test 04/24/17 11:54 04/24/17 17:33 04/24/17 20:44 04/25/17 02:01 Bedside Glucose 154 138 177 162 Test 04/25/17 08:17 Bedside Glucose 135 Medications Medications Current Medications Ondansetron HCl (Zofran Inj) 4 mg Q6H PRN IV NAUSEA AND/OR VOMITING Last administered on 04/25/17 09:07; Admin Dose 4 MG; Start 04/07/17 at 22:30 Acetaminophen (Tylenol Tab) 650 mg Q6H PRN PO PAIN LEVEL 1-3 OR FEVER Last administered on 04/12/17 17:35; Admin Dose 650 MG; Start 04/07/17 at 22:30 Morphine Sulfate (morphine) 2 mg Q4H PRN IV SEVERE PAIN LEVEL 7-10 Last administered on 04/21/17 18:46; Admin Dose 2 MG; Start 04/07/17 at 22:30 Docusate Sodium (Colace) 100 mg Q12H PRN PO CONSTIPATION Last administered on 00:29; Admin Dose 100 MG; Start 04/07/17 at 22:30 Pantoprazole (Protonix Tab) 40 mg DAILY@06 PO Last administered on 04/25/17 05 :30; Admin Dose 40 MG; Start 04/08/17 at 06:00 Amlodipine Besylate (Norvasc) 5 mg DAILY PO Last administered on 04/25/17 08: 27; Admin Dose 5 MG; Start 04/08/17 at 09:00 Ascorbic Acid (Vitamin C) 500 mg DAILY PO Last administered on 04/25/17 08:28 ; Admin Dose 500 MG; Start 04/08/17 at 09:00 Aspirin (Halfprin) 81 mg DAILY PO ; Start 04/08/17 at 09:00; Status Future Hold Zinc Sulfate (Zinc Sulfate) 220 mg DAILY PO Last administered on 04/25/17 08: 27; Admin Dose 220 MG; Start 04/08/17 at 09:00 Miscellaneous Information 1 ea NOTE XX ; Start 04/07/17 at 23:00 Glucose (Glutose) 15 gm Q15M PRN PO DECREASED GLUCOSE; Start 04/07/17 at 23:00 Glucose (Glutose) 22.5 gm Q15M PRN PO DECREASED GLUCOSE; Start 04/07/17 at 23: 00 Dextrose (D50w Syringe) 25 ml Q15M PRN IV DECREASED GLUCOSE; Start 04/07/17 at 23:00 Dextrose (D50w Syringe) 50 ml Q15M PRN IV DECREASED GLUCOSE; Start 04/07/17 at 23:00 Glucagon (Glucagen) 1 mg Q15M PRN IM DECREASED GLUCOSE; Start 04/07/17 at 23:00 Glucose (Glutose) 15 gm Q15M PRN BUCCAL DECREASED GLUCOSE; Start 04/07/17 at 23 :00 Diagnostic Test (Pha) (Accu-Chek) 1 ea 02 XX Last administered on 04/25/17 02: 02; Admin Dose 1 EA; Start 04/08/17 at 02:00 Collagenase (Santyl) 1 applic DAILY TOP Last administered on 04/25/17 09:44; Admin Dose 1 APPLIC; Start 04/09/17 at 16:00 Collagenase 1 applic 1 applic PRN PRN TOP WOUND CARE Last administered on 00:28; Admin Dose 1 APPLIC; Start 04/09/17 at 14:30 Ceftriaxone Sodium 50 ml @ 100 mls/hr Q24H IVPB Last administered on 16:29; Admin Dose 100 MLS/HR; Start 04/11/17 at 17:00 Fluconazole/ Sodium Chloride (Diflucan 100 Mg/ NS (Pmx)) 50 ml @ 50 mls/hr Q24H IVPB Last administered on 04/24/17 15:15; Admin Dose 50 MLS/HR; Start 04/12/17 at 16:00 Gabapentin (Neurontin) 300 mg TID PO Last administered on 04/25/17 08:27; Admin Dose 300 MG; Start 04/13/17 at 14:15 Lactulose (Enulose) 20 gm Q6H PRN PO CONSTIPATION Last administered on 23:19; Admin Dose 20 GM; Start 04/13/17 at 13:30 Prednisolone Acetate (Pred-Forte 1%) 1 drop BID RIGHT EYE Last administered on 04/25/17 08:28; Admin Dose 1 DROP; Start 04/13/17 at 21:30 Miscellaneous Information Patients own medicat... BID@10,16 XX ; Start 04/14/17 at 10:00 Simethicone (Mylicon) 80 mg Q4H PRN PO GAS PAINS Last administered on 04/15/17 08:15; Admin Dose 80 MG; Start 04/14/17 at 11:09 Epoetin Indra (Epogen (Esrd)) 8,000 units MoWeFr@17 SC Last administered on 04/23 18:10; Admin Dose 8,000 UNITS; Start 04/16/17 at 17:00 Lactobacillus Acidophilus/ Rhamnosus 1 cap 1 cap BID PO Last administered on 08:27; Admin Dose 1 CAP; Start 04/14/17 at 15:00 Vancomycin HCl (Vancocin) 250 ml @ 125 mls/hr Q5D IVPB Last administered on 21:16; Admin Dose 125 MLS/HR; Start 04/16/17 at 22:00 Ondansetron HCl (Zofran Tab) 4 mg Q4H PRN PO NAUSEA AND/OR VOMITING; Start 08/26 at 10:30 Morphine Sulfate (morphine) 10 mg Q3H PRN PO PAIN Last administered on 21:52; Admin Dose 10 MG; Start 04/19/17 at 11:00 Insulin Detemir (Levemir) 10 unit BID@08,20 SC Last administered on 04/25/17 08:29; Admin Dose 10 UNIT; Start 04/20/17 at 20:00 ANIBAL ALMANZAR MD Apr 25, 2017 11:30
[2017-04-25] MEDS: FLUCONAZOLE 100 MG/NS (PMX) 50 ML IVPB SCH (16:49)
[2017-04-25] MEDS: EPOETIN 4000 UNITS/1 ML INJ (ESRD) SC SCH (17:00)
--- NOTE | 2017-04-25 17:21 | PN ---
DATE: 04/25/2017 SUBJECTIVE: Patient is seen status post dialysis today. She had episodes of nausea and vomiting fr om taking too many medications in the morning. Otherwise is feeling okay. I had a long discussion with Dr. Walton, as the patient does have a malfunctioning right AV fistula and also she has poor circulation to the left leg, and she definitely needs revision of the right AV fistula and likely s ome type of intervention to her left lower extremity circulation. In the meantime, this is not urge nt. It can be done on an outpatient basis. I have spoken with the housing case manager regarding placement, as we are awaiting bed availability at the [facility] facility, and also awaiting physical the rapy, as the patient is to be evaluated for possible acute rehabilitation. PHYSICAL EXAMINATION: VITAL SIGNS: Temperature is 98.4. The patient is afebrile. Pulse is 79, respirations 18, blood pre ssure 131/60, saturations 94% on 2 liters. GENERAL: The patient is in no acute distress. The patient is morbidly obese, pale. CARDIOVASCULAR: S1 and S2, regular rate. LUNGS: Clear. ABDOMEN: Soft, nontender, obese. EXTREMITIES: No clubbing, cyanosis, or edema. She does have a left medial thigh wound and a left h eel wound. LABORATORY: No new labs today. Labs from yesterday were all reviewed. Hemoglobin was slightly low at 8.8. MEDICATIONS: Reviewed. Include: 1. Levemir 10 units b.i.d. 2. Morphine p.r.n. 3. Zofran p.r.n. 4. Vancomycin IV dose per pharmacy. 5. Epogen 8000 units Friday, Friday and Friday. 6. Culturelle b.i.d. 7. Simethicone p.r.n. 8. Pred Forte b.i.d. 9. Neurontin t.i.d. 10. Lactulose p.r.n. 11. Diflucan IV daily. 12. Rocephin 1 gram q.24h. 13. Santyl daily. 14. Norvasc 5 mg daily. 15. Vitamin C 500 mg daily. 16. Zinc sulfate 220 daily. 17. Insulin Aspart per sliding scale. 18. 1.3 grams t.i.d. 19. Protonix 40 mg daily. 20. Accu-Chek before meals and at bedtime. 21. Vancomycin, dose per pharmacy. 22. Hypoglycemia protocol. 23. P.r.n. Zofran. 24. P.r.n. Tylenol. 25. P.r.n. morphine. 26. P.r.n. Colace. ASSESSMENT AND PLAN: This is a 61-year-old, morbidly obese, female with a history of diabe ramana mellitus, end-stage renal disease, hypertension and chronic left thigh wound, who presented in [place] with hematuria and was found to have acute cystitis. 1. Acute cystitis. Resolved. 2. End-stage renal disease. Dialysis 3 times a week. Status post hemodialysis today. Monitor elec trolytes. 3. Anemia. Continue Epogen. Monitor H and H. P.r.n. transfusion. Currently no evidence of activ e bleeding. 4. Malfunctioning AV fistula and peripheral arterial disease. Intervention to be done by Dr. Oni isidro on an outpatient basis. 5. Morbidly obese state. Physical therapy to continue acute rehabilitation. Evaluation is pending , and placement is pending as well. 6. Diabetes mellitus. Continue Levemir 10 units b.i.d. The patient's glucose levels are as follow s: 176, 135 and 162. May increase slightly the Levemir. 7. Morbidly obese state. 8. Infectious disease. Remains on antibiotics, which are vancomycin, ceftriaxone and antifungal wi th Diflucan. Dr. Guevara is following. Case was discussed again in detail with the nursing staff and case management. We will follow. Dictated By: BAL BERG/VICTORINA Conf#: [id number] DID#: [id number]
[2017-04-25] MEDS: CEFTRIAXONE 1 GM/50 ML (PMX) 50 ML IVPB SCH (18:17)
[2017-04-25] MEDS: DOCUSATE SODIUM 100 MG CAP PO PRN (21:05)
--- NOTE | 2017-04-25 21:48 | CONS ---
Date/Time of Note Date/Time of Note DATE: 04/25/17 TIME: 21:47 Assessment/Plan Assessment/Plan Chief Complaint/Hosp Course SUBJECTIVE: No acute changes. Alert. Looks comfortable. No fevers INDWELLINGS: Right chest PermCath and left upper extremity AV fistula. ANTIMICROBIALS: 1. Fluconazole 2. Rocephin. 3. IV vancomycin. PHYSICAL EXAMINATION: GENERAL: This is a morbidly obese, elderly woman who is alert, in no distress. HEENT: Head atraumatic, normocephalic. Sclerae anicteric. Buccal mucosa pink. NECK: Obese. CHEST: Rise symmetrical. Breath sounds clear. HEART: S1, S2. ABDOMEN: Soft. Bowel tones present. No tenderness over suprapubic area. EXTREMITIES: No cyanosis. ASSESSMENT: 1. Systemic inflammatory response syndrome with resolving leukocytosis. 2. Left upper thigh chronic necrotic wound, status post debridement 04/16/17, pathology revealed acute inflammation. 3. Status post urinary tract infection and hematuria. 4. End-stage renal disease, hemodialysis dependent. 5. Chronic pain syndrome. 6. Diabetes. 7. Morbid obesity. 8. PAD, s/p angiogram PLAN: The patient remains stable, completing abx, continue local wound care, pending AVF revision. DW staff Problems: Consultation Date/Type/Reason Admit Date/Time April 07, 2017 at 21:56 Initial Consult Date 04/11/17 Type of Consultation: ID Referring Provider: BAL MAYER MD Exam/Review of Systems Vital Signs Vitals Vital Signs Date Time Temp Pulse Resp B/P Pulse Ox O2 Delivery O2 Flow Rate FiO2 04/25/17 20:31 98.2 68 18 120/56 98 04/25/17 08:00 Nasal Cannula 2.0 Intake and Output 04/24/17 04/24/17 04/25/17 15:00 23:00 07:00 Intake Total 820 ml 400 ml Balance 820 ml 400 ml Results Result Diagram: 04/24/17 0440 04/24/17 0440 Results 24 hrs Laboratory Tests Test 04/25/17 02:01 04/25/17 08:17 04/25/17 12:18 04/25/17 17:44 Bedside Glucose 162 135 176 157 Test 04/25/17 21:02 Bedside Glucose 169 Medications Medications Current Medications Ondansetron HCl (Zofran Inj) 4 mg Q6H PRN IV NAUSEA AND/OR VOMITING Last administered on 04/25/17 09:07; Admin Dose 4 MG; Start 04/07/17 at 22:30 Acetaminophen (Tylenol Tab) 650 mg Q6H PRN PO PAIN LEVEL 1-3 OR FEVER Last administered on 04/12/17 17:35; Admin Dose 650 MG; Start 04/07/17 at 22:30 Morphine Sulfate (morphine) 2 mg Q4H PRN IV SEVERE PAIN LEVEL 7-10 Last administered on 04/21/17 18:46; Admin Dose 2 MG; Start 04/07/17 at 22:30 Docusate Sodium (Colace) 100 mg Q12H PRN PO CONSTIPATION Last administered on 21:05; Admin Dose 100 MG; Start 04/07/17 at 22:30 Pantoprazole (Protonix Tab) 40 mg DAILY@06 PO Last administered on 04/25/17 05 :30; Admin Dose 40 MG; Start 04/08/17 at 06:00 Amlodipine Besylate (Norvasc) 5 mg DAILY PO Last administered on 04/25/17 08: 27; Admin Dose 5 MG; Start 04/08/17 at 09:00 Ascorbic Acid (Vitamin C) 500 mg DAILY PO Last administered on 04/25/17 08:28 ; Admin Dose 500 MG; Start 04/08/17 at 09:00 Aspirin (Halfprin) 81 mg DAILY PO ; Start 04/08/17 at 09:00; Status Future Hold Zinc Sulfate (Zinc Sulfate) 220 mg DAILY PO Last administered on 04/25/17 08: 27; Admin Dose 220 MG; Start 04/08/17 at 09:00 Miscellaneous Information 1 ea NOTE XX ; Start 04/07/17 at 23:00 Glucose (Glutose) 15 gm Q15M PRN PO DECREASED GLUCOSE; Start 04/07/17 at 23:00 Glucose (Glutose) 22.5 gm Q15M PRN PO DECREASED GLUCOSE; Start 04/07/17 at 23: 00 Dextrose (D50w Syringe) 25 ml Q15M PRN IV DECREASED GLUCOSE; Start 04/07/17 at 23:00 Dextrose (D50w Syringe) 50 ml Q15M PRN IV DECREASED GLUCOSE; Start 04/07/17 at 23:00 Glucagon (Glucagen) 1 mg Q15M PRN IM DECREASED GLUCOSE; Start 04/07/17 at 23:00 Glucose (Glutose) 15 gm Q15M PRN BUCCAL DECREASED GLUCOSE; Start 04/07/17 at 23 :00 Diagnostic Test (Pha) (Accu-Chek) 1 ea 02 XX Last administered on 04/25/17 02: 02; Admin Dose 1 EA; Start 04/08/17 at 02:00 Collagenase (Santyl) 1 applic DAILY TOP Last administered on 04/25/17 09:44; Admin Dose 1 APPLIC; Start 04/09/17 at 16:00 Collagenase 1 applic 1 applic PRN PRN TOP WOUND CARE Last administered on 00:28; Admin Dose 1 APPLIC; Start 04/09/17 at 14:30 Ceftriaxone Sodium 50 ml @ 100 mls/hr Q24H IVPB Last administered on 18:17; Admin Dose 100 MLS/HR; Start 04/11/17 at 17:00 Fluconazole/ Sodium Chloride (Diflucan 100 Mg/ NS (Pmx)) 50 ml @ 50 mls/hr Q24H IVPB Last administered on 04/25/17 16:49; Admin Dose 50 MLS/HR; Start 04/12/17 at 16:00 Gabapentin (Neurontin) 300 mg TID PO Last administered on 04/25/17 21:02; Admin Dose 300 MG; Start 04/13/17 at 14:15 Lactulose (Enulose) 20 gm Q6H PRN PO CONSTIPATION Last administered on 23:19; Admin Dose 20 GM; Start 04/13/17 at 13:30 Prednisolone Acetate (Pred-Forte 1%) 1 drop BID RIGHT EYE Last administered on 04/25/17 21:03; Admin Dose 1 DROP; Start 04/13/17 at 21:30 Miscellaneous Information Patients own medicat... BID@10,16 XX ; Start 04/14/17 at 10:00 Simethicone (Mylicon) 80 mg Q4H PRN PO GAS PAINS Last administered on 04/15/17 08:15; Admin Dose 80 MG; Start 04/14/17 at 11:09 Epoetin Indra (Epogen (Esrd)) 8,000 units MoWeFr@17 SC Last administered on 04/25 17:00; Admin Dose 8,000 UNITS; Start 04/16/17 at 17:00 Lactobacillus Acidophilus/ Rhamnosus 1 cap 1 cap BID PO Last administered on 21:02; Admin Dose 1 CAP; Start 04/14/17 at 15:00 Vancomycin HCl (Vancocin) 250 ml @ 125 mls/hr Q5D IVPB Last administered on 21:16; Admin Dose 125 MLS/HR; Start 04/16/17 at 22:00 Ondansetron HCl (Zofran Tab) 4 mg Q4H PRN PO NAUSEA AND/OR VOMITING; Start 08/26 at 10:30 Morphine Sulfate (morphine) 10 mg Q3H PRN PO PAIN Last administered on 21:52; Admin Dose 10 MG; Start 04/19/17 at 11:00 Insulin Detemir (Levemir) 10 unit BID@08,20 SC Last administered on 04/25/17 21:04; Admin Dose 10 UNIT; Start 04/20/17 at 20:00 ALYX NAVARRO NP Apr 25, 2017 21:48
[2017-04-26] MEDS: ACCUCHECK AT 2AM (Patients on SS coverage) XX SCH (01:33)
[2017-04-26] MEDS: PANTOPRAZOLE (EC) 40 MG TAB PO SCH (05:49)
[2017-04-26 06:04] LABS: ADD SCAN DIFF NO
[2017-04-26 06:19] LABS: BASOPHIL # 0.1 10^3/ul (0.0-0.1); BASOPHILS % 0.6 % (0.0-2.0); EOSINOPHILS # 0.4 10^3/ul (0.0-0.5); EOSINOPHILS % 4.3 % (0.0-7.0); HEMATOCRIT 30.2 % (37.0-47.0); LYMPHOCYTES # 1.7 10^3/ul (0.8-2.9); LYMPHOCYTES % 16.1 % (15.0-51.0); MEAN CORPUSCULAR HEMOGLOBIN 28.5 pg (29.0-33.0); MEAN CORPUSCULAR HGB CONC 29.8 g/dl (32.0-37.0); MEAN CORPUSCULAR VOLUME 95.6 fl (82.0-101.0); MEAN PLATELET VOLUME 9.5 fl (7.4-10.4); MONOCYTES % 9.7 % (0.0-11.0); NEUTROPHIL # 6.9 10^3/ul (1.6-7.5); NEUTROPHILS % 66.2 % (39.0-77.0); PLATELET COUNT 350 10^3/UL (140-415); RED BLOOD COUNT 3.16 10^6/ul (4.20-5.40); RED CELL DISTRIBUTION WIDTH 15.4 % (11.5-14.5); WHITE BLOOD COUNT 10.3 10^3/ul (4.8-10.8)
[2017-04-26 06:48] LABS: MAGNESIUM 2.7 mg/dl (1.7-2.5); PHOSPHORUS 3.5 mg/dl (2.5-4.9)
[2017-04-26 06:55] LABS: CALCIUM 8.9 mg/dl (8.4-10.2); CREATININE 4.86 mg/dl (0.44-1.00); POTASSIUM 4.1 mmol/L (3.5-5.1)
[2017-04-26 07:45] VITALS: BP 129/60; RESP 18
[2017-04-26] MEDS: GABAPENTIN 300 MG CAP PO SCH ×3 (08:34→20:49)
[2017-04-26] MEDS: ZINC SULFATE 220 MG CAP PO SCH (08:34)
[2017-04-26] MEDS: CALCIUM ACETATE 667 MG CAP PO SCH ×3 (08:34→16:33)
[2017-04-26] MEDS: ASCORBIC ACID 500 MG TAB PO SCH (08:35)
[2017-04-26] MEDS: LACTOBACILLUS RHAMNOSUS CAP PO SCH ×2 (08:35→20:49)
[2017-04-26] MEDS: AMLODIPINE 5 MG TAB PO SCH (08:36)
[2017-04-26] MEDS: INSULIN DETEMIR [LEVEMIR] 3ML CART SC SCH ×2 (08:38→20:49)
[2017-04-26] MEDS: INSULIN ASPART [NOVOLOG] 3 ML PEN SC SCH ×4 (08:40→20:51)
--- NOTE | 2017-04-26 11:36 | PN ---
Date/Time of Note Date/Time of Note DATE: 04/26/17 TIME: 11:35 Assessment/Plan Lines/Catheters IV Catheter Type (from Nrs): PICC Line [place] in Place (from Nrs): No Assessment/Plan Chief Complaint/Hosp Course -End-stage renal disease: S/P RUE fistulogram - she has issues with her venous cannulation access during dialysis. She does have tributaries that can be ligated in order to improve the flow, otherwise we will schedule patient for revision of her fistula -Bilateral lower extremity atherosclerosis & LLE ulcer: The patient has developed necrotic thigh wound post ablation, in addition to her heel ulcer and nonpalpable pedal pulses. CTA demonstrated perfusion to the lower leg with infrainguinal disease that will need endovascular intervention which can be done as outpt -Continue with wound care per our multidisciplinary team recommendations -Recommend Heel Medix boots -Optimize vascular status (BP meds, diet, nutrition, exercise, sugar control, antiplatelets). -Recommend PT, OT and out of bed for the patient as she had mentioned she is somewhat ambulatory. -Discussed findings, plan and management with the patient, she understands. -Thank you for allowing us to partake in the care of your patient. Please call with any questions. Problems: Subjective 24 Hr Interval Summary no new vascular events overnight Exam/Review of Systems Vital Signs Vitals Vital Signs Date Time Temp Pulse Resp B/P Pulse Ox O2 Delivery O2 Flow Rate FiO2 04/26/17 09:59 Nasal Cannula 2.0 04/26/17 07:45 98.7 65 18 129/60 96 Intake and Output 04/25/17 04/25/17 04/26/17 15:00 23:00 07:00 Intake Total 500 ml 740 ml 600 ml Output Total 3500 ml Balance -3000 ml 740 ml 600 ml Exam Free Text/Dictation GENERAL: Alert and oriented x3, PULMONARY: Clear to auscultation bilaterally, Right chest wall catheter clean and dry, CARDIOVASCULAR: S1, S2 present. ABDOMEN: Soft, nontender, nondistended. Bowel sounds positive. Large truncal obesity. EXTREMITIES: -Right lower extremity unable to palpate the femoral pulse secondary to body habitus, nonpalpable pedal pulse. Motor and sensory intact, although weak. Capillary refill about 4 seconds. Presence of lipodermatosclerosis. -Left lower extremity unable to palpate the femoral pulse secondary to body habitus, nonpalpable pedal pulse. Motor and sensory seems to be intact. Capillary refill 3 to 4 seconds. Presence of lipodermatosclerosis. Area of necrotic wound in the medial aspect of the thigh with surrounding erythema improving -RUE: Palpable brachial pulse, motor/sensory intact, wrist fistula with bruit and thrill present - improved compared to before, surgical scar well healed, cap refill 3 seconds Results Result Diagram: 04/26/17 0426 04/26/17 0426 JEWELS OSORIO MD Apr 26, 2017 11:36
--- NOTE | 2017-04-26 11:56 | CONS ---
Date/Time of Note Date/Time of Note DATE: 04/26/17 TIME: 11:45 Assessment/Plan Assessment/Plan Chief Complaint/Hosp Course ID PROGRESS NOTE TOTAL ABX DAY # * 1. Fluconazole * 2. Rocephin. * 3. IV vancomycin. 24H INTERVAL SUMMARY * A/A/O, eating lunch, diminished vision, no fevers/chills, denies pain, VSS, NAD, no questions, no new issues * CHART REVIEWED: S/P RUE fistulogram - PER NOTES: tributaries that can be ligated in order to improve the flow, otherwise we will schedule patient for revision of her fistula PHYSICAL EXAMINATION: GENERAL: 61 yo F = morbid obese HEENT: Unremarkable except diminished vision NECK: Full ROM CHEST: Rise symmetrical=without dyspnea on observation HEART: Radial pulse RRR ABDOMEN: Soft, nondistended EXTREMITIES: Warm, moves all ext. Left Foot DSG removed, see photos, ulcer on 5th toe swabbed for C&S SKIN: No diaphoresis, no rash ID ASSESSMENT: 61 yo F admit with: 1. Systemic inflammatory response syndrome with resolving leukocytosis. 2. PAD =>Bilateral lower extremity atherosclerosis & LLE ulcer: * Left upper thigh chronic necrotic wound and heel ulcer, status post debridement 04/16/17, pathology revealed acute inflammation. * heel ulcer and nonpalpable pedal pulses. * CTA demonstrated perfusion to the lower leg with infrainguinal disease that will need endovascular intervention which can be done as outpt 3. Status post urinary tract infection and hematuria. 4. End-stage renal disease, hemodialysis dependent. 5. Chronic pain syndrome. 6. Diabetes. 7. Morbid obesity. INVASIVES: * R-PermCath; AVF CURRENT ABX: TOTAL ABX DAY # * 1. Fluconazole * 2. Rocephin. * 3. IV vancomycin ID RECOMMENDATIONS: 1. Continue current ABX 2. Per vascular * Pending AVF revision * > PAD "need endovascular intervention which can be done as outpt" . Problems: Consultation Date/Type/Reason Admit Date/Time April 07, 2017 at 21:56 Initial Consult Date 04/11/17 Type of Consultation: ID Referring Provider: BAL MAYER MD Exam/Review of Systems Vital Signs Vitals Vital Signs Date Time Temp Pulse Resp B/P Pulse Ox O2 Delivery O2 Flow Rate FiO2 04/26/17 09:59 Nasal Cannula 2.0 04/26/17 07:45 98.7 65 18 129/60 96 Intake and Output 04/25/17 04/25/17 04/26/17 15:00 23:00 07:00 Intake Total 500 ml 740 ml 600 ml Output Total 3500 ml Balance -3000 ml 740 ml 600 ml Results Result Diagram: 04/26/17 0426 04/26/17 0426 Results 24 hrs Laboratory Tests Test 04/25/17 12:18 04/25/17 17:44 04/25/17 21:02 04/26/17 04:26 Bedside Glucose 176 157 169 White Blood Count 10.3 Red Blood Count 3.16 L Hemoglobin 9.0 L Hematocrit 30.2 L Mean Corpuscular Volume 95.6 Mean Corpuscular Hemoglobin 28.5 L Mean Corpuscular Hemoglobin Concent 29.8 L Red Cell Distribution Width 15.4 H Platelet Count 350 Mean Platelet Volume 9.5 Neutrophils % 66.2 Lymphocytes % 16.1 Monocytes % 9.7 Eosinophils % 4.3 Basophils % 0.6 Nucleated Red Blood Cells % 0.0 Neutrophils # 6.9 Lymphocytes # 1.7 Monocytes # 1.0 H Eosinophils # 0.4 Basophils # 0.1 Nucleated Red Blood Cells # 0.0 Sodium Level 135 Potassium Level 4.1 Chloride Level 98 Carbon Dioxide Level 29 Anion Gap 12 Blood Urea Nitrogen 23 H Creatinine 4.86 H Glucose Level 121 Calcium Level 8.9 Phosphorus Level 3.5 Magnesium Level 2.7 H Test 04/26/17 08:31 Bedside Glucose 144 Medications Medications Current Medications Ondansetron HCl (Zofran Inj) 4 mg Q6H PRN IV NAUSEA AND/OR VOMITING Last administered on 04/25/17 09:07; Admin Dose 4 MG; Start 04/07/17 at 22:30 Acetaminophen (Tylenol Tab) 650 mg Q6H PRN PO PAIN LEVEL 1-3 OR FEVER Last administered on 04/12/17 17:35; Admin Dose 650 MG; Start 04/07/17 at 22:30 Morphine Sulfate (morphine) 2 mg Q4H PRN IV SEVERE PAIN LEVEL 7-10 Last administered on 04/21/17 18:46; Admin Dose 2 MG; Start 04/07/17 at 22:30 Docusate Sodium (Colace) 100 mg Q12H PRN PO CONSTIPATION Last administered on 21:05; Admin Dose 100 MG; Start 04/07/17 at 22:30 Pantoprazole (Protonix Tab) 40 mg DAILY@06 PO Last administered on 04/26/17 05 :49; Admin Dose 40 MG; Start 04/08/17 at 06:00 Amlodipine Besylate (Norvasc) 5 mg DAILY PO Last administered on 04/26/17 08: 36; Admin Dose 5 MG; Start 04/08/17 at 09:00 Ascorbic Acid (Vitamin C) 500 mg DAILY PO Last administered on 04/26/17 08:35 ; Admin Dose 500 MG; Start 04/08/17 at 09:00 Aspirin (Halfprin) 81 mg DAILY PO ; Start 04/08/17 at 09:00; Status Future Hold Zinc Sulfate (Zinc Sulfate) 220 mg DAILY PO Last administered on 04/26/17 08: 34; Admin Dose 220 MG; Start 04/08/17 at 09:00 Miscellaneous Information 1 ea NOTE XX ; Start 04/07/17 at 23:00 Glucose (Glutose) 15 gm Q15M PRN PO DECREASED GLUCOSE; Start 04/07/17 at 23:00 Glucose (Glutose) 22.5 gm Q15M PRN PO DECREASED GLUCOSE; Start 04/07/17 at 23: 00 Dextrose (D50w Syringe) 25 ml Q15M PRN IV DECREASED GLUCOSE; Start 04/07/17 at 23:00 Dextrose (D50w Syringe) 50 ml Q15M PRN IV DECREASED GLUCOSE; Start 04/07/17 at 23:00 Glucagon (Glucagen) 1 mg Q15M PRN IM DECREASED GLUCOSE; Start 04/07/17 at 23:00 Glucose (Glutose) 15 gm Q15M PRN BUCCAL DECREASED GLUCOSE; Start 04/07/17 at 23 :00 Diagnostic Test (Pha) (Accu-Chek) 1 ea 02 XX Last administered on 04/25/17 02: 02; Admin Dose 1 EA; Start 04/08/17 at 02:00 Collagenase (Santyl) 1 applic DAILY TOP Last administered on 04/25/17 09:44; Admin Dose 1 APPLIC; Start 04/09/17 at 16:00 Collagenase 1 applic 1 applic PRN PRN TOP WOUND CARE Last administered on 00:28; Admin Dose 1 APPLIC; Start 04/09/17 at 14:30 Ceftriaxone Sodium 50 ml @ 100 mls/hr Q24H IVPB Last administered on 18:17; Admin Dose 100 MLS/HR; Start 04/11/17 at 17:00 Fluconazole/ Sodium Chloride (Diflucan 100 Mg/ NS (Pmx)) 50 ml @ 50 mls/hr Q24H IVPB Last administered on 04/25/17 16:49; Admin Dose 50 MLS/HR; Start 04/12/17 at 16:00 Gabapentin (Neurontin) 300 mg TID PO Last administered on 04/26/17 08:34; Admin Dose 300 MG; Start 04/13/17 at 14:15 Lactulose (Enulose) 20 gm Q6H PRN PO CONSTIPATION Last administered on 23:19; Admin Dose 20 GM; Start 04/13/17 at 13:30 Prednisolone Acetate (Pred-Forte 1%) 1 drop BID RIGHT EYE Last administered on 04/25/17 21:03; Admin Dose 1 DROP; Start 04/13/17 at 21:30 Miscellaneous Information Patients own medicat... BID@10,16 XX ; Start 04/14/17 at 10:00 Simethicone (Mylicon) 80 mg Q4H PRN PO GAS PAINS Last administered on 04/15/17 08:15; Admin Dose 80 MG; Start 04/14/17 at 11:09 Epoetin Indra (Epogen (Esrd)) 8,000 units MoWeFr@17 SC Last administered on 04/25 17:00; Admin Dose 8,000 UNITS; Start 04/16/17 at 17:00 Lactobacillus Acidophilus/ Rhamnosus 1 cap 1 cap BID PO Last administered on 08:35; Admin Dose 1 CAP; Start 04/14/17 at 15:00 Vancomycin HCl (Vancocin) 250 ml @ 125 mls/hr Q5D IVPB Last administered on 21:16; Admin Dose 125 MLS/HR; Start 04/16/17 at 22:00 Ondansetron HCl (Zofran Tab) 4 mg Q4H PRN PO NAUSEA AND/OR VOMITING; Start 08/26 at 10:30 Morphine Sulfate (morphine) 10 mg Q3H PRN PO PAIN Last administered on 21:52; Admin Dose 10 MG; Start 04/19/17 at 11:00 Insulin Detemir (Levemir) 10 unit BID@08,20 SC Last administered on 04/26/17 08:38; Admin Dose 10 UNIT; Start 04/20/17 at 20:00 Miscellaneous Information (*Rx Drug Level Order Reminder*) VANCOMYCIN TROUGH AT 2100 ONCE ONCE XX ; Start 04/26/17 at 21:00; Stop 04/26/17 at 21:01 LINDA SCHAEFER NP Apr 26, 2017 11:56
--- NOTE | 2017-04-26 13:40 | PN ---
DATE: 04/26/2017 SUBJECTIVE: The patient is awaiting acute rehabilitation evaluation at [facility]. The pa clara also appears to be motivated to participate with therapy. Patient is slightly deconditioned, but definitely would be appropriate for aggressive therapy, as definitely that may improve her overa ll condition, as she basically has been in bed for quite some time. I appreciate physical therapy e valuation and recommendations. The patient is overall feeling better today; felt slightly dizzy whe n sitting up. PHYSICAL EXAMINATION: VITAL SIGNS: Temperature is 98.7, pulse 65, respirations 18, blood pressure 129/60, saturation 96% on 2 liters. GENERAL: The patient is in no acute distress. HEENT: Morbidly obese, pale. CARDIOVASCULAR: S1 and S2. Regular rate. LUNGS: Clear. ABDOMEN: Soft, nontender. EXTREMITIES: No clubbing, cyanosis, or edema. She has a left heel wound and left medial thigh woun d. LABORATORY: Today sodium 135, potassium 4.1, chloride 98, bicarbonate 29, BUN is 23, creatinine 4.8 6, glucose 121. White count 10.3, hemoglobin 9, hematocrit 30, platelet count 350, neutrophils 66%, lymphocytes 16%. Urine culture on 04/10/2017 did show Ruth Ann albicans. MEDICATIONS: 1. Levemir 10 units twice a day. 2. Morphine sulfate 2 mg orally q.3 p.r.n. 3. Zofran 4 mg q.4 p.r.n. 4. Vancomycin IV dose per pharmacy. 5. Epogen 8000 units q. Friday, Friday, Friday. 6. Culturelle 1 cap b.i.d. 7. Simethicone 80 mg q.4 p.r.n. 8. Pred Forte b.i.d. 9. Neurontin 300 t.i.d. 10. Lactulose p.r.n. 11. Diflucan IV daily. 12. Ceftriaxone 1 gram q.24h. 13. Santyl daily and p.r.n. 14. Norvasc 5 mg daily. 15. Vitamin C 500 mg daily. 16. Zinc sulfate 220 daily. 17. Insulin Aspart per sliding scale. 18. PhosLo 1.3 grams t.i.d. 19. Protonix 40 mg daily. 20. Accu-Chek before meals and at bedtime. 21. Hypoglycemia protocol as directed. 22. Zofran p.r.n. 23. Tylenol p.r.n. 24. Morphine p.r.n. 25. Colace p.r.n. ASSESSMENT AND PLAN: This is a 61-year-old, morbidly obese, female with a history of diabet es mellitus, end-stage renal disease, hypertension, chronic left thigh wound, who presented with acu te cystitis. 1. Acute cystitis. Resolved. 2. Left heel wound and left medial thigh wound. Continue wound care and vascular followup. The pa tient likely will need some vascular procedure, as the patient does have decreased perfusion to the left lower extremity. 3. End-stage renal disease. Dialysis 3 times a week. Last dialysis was yesterday. Monitor electr olytes. The patient needs revision of her right AV fistula. 4. Morbidly obese state. Will benefit from physical therapy. Acute rehab transfer is pending vers [facility], pending a decision. 5. Diabetes mellitus. Continue Levemir, continue insulin sliding scale. 6. Anemia. On Epogen. 7. Continue deep vein thrombosis prophylaxis and gastrointestinal prophylaxis. 8. Cardiovascular. Vital signs are stable. Continue the current medications. branch services manager to follow regarding placement. We will follow. Dictated By: BAL BERG/VICTORINA Conf#: [id number] DID#: [id number]
[2017-04-26] MEDS: PREDNISOLONE ACET 1% 5 ML OPH RIGHT EYE SCH ×2 (14:09→20:50)
[2017-04-26] MEDS: COLLAGENASE 30 GM TUBE TOP SCH (14:09)
[2017-04-26] MEDS: CEFTRIAXONE 1 GM/50 ML (PMX) 50 ML IVPB SCH (16:33)
[2017-04-26] MEDS: morphine 2 MG INJ IV PRN (16:44)
[2017-04-26] MEDS: FLUCONAZOLE 100 MG/NS (PMX) 50 ML IVPB SCH (17:25)
[2017-04-26 20:57] VITALS: BP 142/67; RESP 18
[2017-04-26] MEDS: VANCOMYCIN 1 GM in NS 250 ML IVPB SCH (23:54)
[2017-04-27] MEDS: ACCUCHECK AT 2AM (Patients on SS coverage) XX SCH (02:07)
[2017-04-27] MEDS: PANTOPRAZOLE (EC) 40 MG TAB PO SCH (05:57)
[2017-04-27 07:45] VITALS: BP 142/66; RESP 18
[2017-04-27] MEDS: INSULIN ASPART [NOVOLOG] 3 ML PEN SC SCH ×4 (08:00→20:28)
[2017-04-27] MEDS: PREDNISOLONE ACET 1% 5 ML OPH RIGHT EYE SCH ×2 (08:22→20:23)
[2017-04-27] MEDS: LACTOBACILLUS RHAMNOSUS CAP PO SCH ×2 (08:22→20:23)
[2017-04-27] MEDS: ASCORBIC ACID 500 MG TAB PO SCH (08:22)
[2017-04-27] MEDS: GABAPENTIN 300 MG CAP PO SCH ×3 (08:22→20:23)
[2017-04-27] MEDS: ZINC SULFATE 220 MG CAP PO SCH (08:22)
[2017-04-27] MEDS: CALCIUM ACETATE 667 MG CAP PO SCH ×3 (08:22→17:24)
[2017-04-27] MEDS: AMLODIPINE 5 MG TAB PO SCH (08:23)
[2017-04-27] MEDS: INSULIN DETEMIR [LEVEMIR] 3ML CART SC SCH ×2 (08:29→20:27)
[2017-04-27] MEDS: LACTULOSE 30ML CUP PO PRN ×2 (11:40→20:43)
--- NOTE | 2017-04-27 13:56 | PN ---
DATE: 04/27/2017 SUBJECTIVE: The patient is seen. The patient with no specific complaints. OBJECTIVE: VITAL SIGNS: Temperature 98.4, pulse 62, respirations 18, blood pressure 142/66, saturation 96% on 2 liters. GENERAL: The patient is morbidly obese, pale. CARDIOVASCULAR: S1, S2, regular rate and rhythm. LUNGS: Clear. ABDOMEN: Soft. EXTREMITIES: No clubbing, cyanosis, or edema. The patient with left heel wound and left medial thi gh wound, slightly necrotic skin at the edges of the wound. LABORATORY DATA: White count is 10.3, hemoglobin of 9. That was yesterday. Chemistry shows no new labs. Yesterday, BUN and creatinine were 23/4.86 with a potassium of 4.1. The patient's last gluc ose levels are 190, 137, 163. MEDICATIONS: Reviewed and include 1. Levemir 10 units twice a day. 2. Morphine p.r.n. 3. Zofran p.r.n. 4. Vancomycin dose per pharmacy. 5. Epogen 8000 units Friday, Friday, and Friday. 6. Culturelle b.i.d. 7. Simethicone 80 q. 4 p.r.n. 8. Pred Forte eyedrops b.i.d. 9. Neurontin 300 t.i.d. 10. Lactulose p.r.n. 11. Diflucan daily. 12. Rocephin 1 gram q. 24 hours. 13. Santyl daily. 14. Norvasc 5 mg daily. 15. Vitamin C 500 mg daily. 16. Zinc sulfate 220 daily. 17. Insulin aspart per sliding scale. 18. PhosLo 1.3 grams t.i.d. 19. Protonix 40 mg daily. 20. Hypoglycemia protocol as directed. ASSESSMENT AND PLAN: This is a 61-year-old morbidly obese female with history of diabetes mellitus, end-stage renal disease, hypertension, chronic left thigh wound who presented with acute c ystitis. 1. Acute cystitis, resolved. 2. Left heel wound and left medial thigh wound. Continue supportive care, wound changes. Will perez d vascular followup with possible interventions, p.r.n. debridement of the left thigh wound. Contin ue wound care. 3. End-stage renal disease. Dialysis planned for tomorrow. Monitor electrolytes. 4. Anemia. Continue Epogen. 5. Morbidly obese state. Weight loss is advised. The patient was not accepted at acute rehab at [facility] secondary to poor functional capacity. The patient will definitely require SNF madhuri ribeiro. distribution operations manager to assist. 6. Diabetes mellitus. Continue current regimen of Levemir and insulin sliding scale. 7. Continue deep vein thrombosis prophylaxis and gastrointestinal prophylaxis. 8. Appreciate ID input. The patient remains on vancomycin and ceftriaxone with Diflucan. The maria antonia ent is afebrile with normal white count. We will follow. DISPOSITION: To alf facility soon. Dictated By: BAL BERG/VICTORINA Conf#: [id number] DID#: [id number]
--- NOTE | 2017-04-27 13:58 | CONS ---
Date/Time of Note Date/Time of Note DATE: 04/27/17 TIME: 13:54 Assessment/Plan Assessment/Plan Chief Complaint/Hosp Course UBJECTIVE: No acute changes. Alert. Looks comfortable. No fevers. Complains of constipation. INDWELLINGS: Right chest PermCath and left upper extremity AV fistula. ANTIMICROBIALS: 1. Fluconazole 2. Rocephin. 3. IV vancomycin. PHYSICAL EXAMINATION: GENERAL: This is a morbidly obese, elderly woman who is alert, in no distress. HEENT: Head atraumatic, normocephalic. Sclerae anicteric. Buccal mucosa pink. NECK: Obese. CHEST: Rise symmetrical. Breath sounds clear. HEART: S1, S2. ABDOMEN: Soft. Bowel tones present. No tenderness over suprapubic area. EXTREMITIES: No cyanosis. ASSESSMENT: 1. Systemic inflammatory response syndrome with resolving leukocytosis. 2. Left upper thigh chronic necrotic wound, status post debridement 04/16/17, pathology revealed acute inflammation. 3. Status post urinary tract infection and hematuria. 4. End-stage renal disease, hemodialysis dependent. 5. Chronic pain syndrome. 6. Diabetes. 7. Morbid obesity. 8. PAD, s/p angiogram 9. Constipation PLAN: The patient remains stable. Continue ABX. Continue local wound care. Pending AVF revision. Laxative regiment. Bowel regiment. PT evaluation. DW staff. Problems: Consultation Date/Type/Reason Admit Date/Time April 07, 2017 at 21:56 Initial Consult Date 05/16/17 Type of Consultation: ID Referring Provider: BAL MAYER MD Exam/Review of Systems Vital Signs Vitals Vital Signs Date Time Temp Pulse Resp B/P Pulse Ox O2 Delivery O2 Flow Rate FiO2 04/27/17 11:07 Nasal Cannula 2.0 04/27/17 07:45 98.4 62 18 142/66 96 Intake and Output 04/26/17 04/26/17 04/27/17 15:00 23:00 07:00 Intake Total 400 ml Output Total 0 ml Balance 400 ml Results Result Diagram: 04/26/17 0426 04/26/17 0426 Results 24 hrs Laboratory Tests Test 04/26/17 20:45 04/26/17 21:36 04/27/17 01:52 04/27/17 08:21 Bedside Glucose 188 163 137 Vancomycin Level Trough 12.8 Test 04/27/17 12:02 Bedside Glucose 190 Medications Medications Current Medications Ondansetron HCl (Zofran Inj) 4 mg Q6H PRN IV NAUSEA AND/OR VOMITING Last administered on 04/25/17 09:07; Admin Dose 4 MG; Start 04/07/17 at 22:30 Acetaminophen (Tylenol Tab) 650 mg Q6H PRN PO PAIN LEVEL 1-3 OR FEVER Last administered on 04/12/17 17:35; Admin Dose 650 MG; Start 04/07/17 at 22:30 Morphine Sulfate (morphine) 2 mg Q4H PRN IV SEVERE PAIN LEVEL 7-10 Last administered on 04/26/17 16:44; Admin Dose 2 MG; Start 04/07/17 at 22:30 Docusate Sodium (Colace) 100 mg Q12H PRN PO CONSTIPATION Last administered on 21:05; Admin Dose 100 MG; Start 04/07/17 at 22:30 Pantoprazole (Protonix Tab) 40 mg DAILY@06 PO Last administered on 04/27/17 05 :57; Admin Dose 40 MG; Start 04/08/17 at 06:00 Amlodipine Besylate (Norvasc) 5 mg DAILY PO Last administered on 04/27/17 08: 23; Admin Dose 5 MG; Start 04/08/17 at 09:00 Ascorbic Acid (Vitamin C) 500 mg DAILY PO Last administered on 04/27/17 08:22 ; Admin Dose 500 MG; Start 04/08/17 at 09:00 Aspirin (Halfprin) 81 mg DAILY PO ; Start 04/08/17 at 09:00; Status Future Hold Zinc Sulfate (Zinc Sulfate) 220 mg DAILY PO Last administered on 04/27/17 08: 22; Admin Dose 220 MG; Start 04/08/17 at 09:00 Miscellaneous Information 1 ea NOTE XX ; Start 04/07/17 at 23:00 Glucose (Glutose) 15 gm Q15M PRN PO DECREASED GLUCOSE; Start 04/07/17 at 23:00 Glucose (Glutose) 22.5 gm Q15M PRN PO DECREASED GLUCOSE; Start 04/07/17 at 23: 00 Dextrose (D50w Syringe) 25 ml Q15M PRN IV DECREASED GLUCOSE; Start 04/07/17 at 23:00 Dextrose (D50w Syringe) 50 ml Q15M PRN IV DECREASED GLUCOSE; Start 04/07/17 at 23:00 Glucagon (Glucagen) 1 mg Q15M PRN IM DECREASED GLUCOSE; Start 04/07/17 at 23:00 Glucose (Glutose) 15 gm Q15M PRN BUCCAL DECREASED GLUCOSE; Start 04/07/17 at 23 :00 Diagnostic Test (Pha) (Accu-Chek) 1 ea 02 XX Last administered on 04/27/17 02: 07; Admin Dose 1 EA; Start 04/08/17 at 02:00 Collagenase (Santyl) 1 applic DAILY TOP Last administered on 04/26/17 14:09; Admin Dose 1 APPLIC; Start 04/09/17 at 16:00 Collagenase 1 applic 1 applic PRN PRN TOP WOUND CARE Last administered on 00:28; Admin Dose 1 APPLIC; Start 04/09/17 at 14:30 Ceftriaxone Sodium 50 ml @ 100 mls/hr Q24H IVPB Last administered on 16:33; Admin Dose 100 MLS/HR; Start 04/11/17 at 17:00 Fluconazole/ Sodium Chloride (Diflucan 100 Mg/ NS (Pmx)) 50 ml @ 50 mls/hr Q24H IVPB Last administered on 04/26/17 17:25; Admin Dose 50 MLS/HR; Start 04/12/17 at 16:00 Gabapentin (Neurontin) 300 mg TID PO Last administered on 04/27/17 12:35; Admin Dose 300 MG; Start 04/13/17 at 14:15 Lactulose (Enulose) 20 gm Q6H PRN PO CONSTIPATION Last administered on 11:40; Admin Dose 20 GM; Start 04/13/17 at 13:30 Prednisolone Acetate (Pred-Forte 1%) 1 drop BID RIGHT EYE Last administered on 04/27/17 08:22; Admin Dose 1 DROP; Start 04/13/17 at 21:30 Miscellaneous Information Patients own medicat... BID@10,16 XX ; Start 04/14/17 at 10:00 Simethicone (Mylicon) 80 mg Q4H PRN PO GAS PAINS Last administered on 04/15/17 08:15; Admin Dose 80 MG; Start 04/14/17 at 11:09 Epoetin Indra (Epogen (Esrd)) 8,000 units MoWeFr@17 SC Last administered on 04/25 17:00; Admin Dose 8,000 UNITS; Start 04/16/17 at 17:00 Lactobacillus Acidophilus/ Rhamnosus 1 cap 1 cap BID PO Last administered on 08:22; Admin Dose 1 CAP; Start 04/14/17 at 15:00 Vancomycin HCl (Vancocin) 250 ml @ 125 mls/hr Q5D IVPB Last administered on 23:54; Admin Dose 125 MLS/HR; Start 04/16/17 at 22:00 Ondansetron HCl (Zofran Tab) 4 mg Q4H PRN PO NAUSEA AND/OR VOMITING; Start 08/26 at 10:30 Morphine Sulfate (morphine) 10 mg Q3H PRN PO PAIN Last administered on 21:52; Admin Dose 10 MG; Start 04/19/17 at 11:00 Insulin Detemir (Levemir) 10 unit BID@08,20 SC Last administered on 04/27/17 08:29; Admin Dose 10 UNIT; Start 04/20/17 at 20:00 PAULO ALDRIDGE NP Apr 27, 2017 13:58
[2017-04-27] MEDS: FLUCONAZOLE 100 MG/NS (PMX) 50 ML IVPB SCH (15:30)
[2017-04-27] MEDS: COLLAGENASE 30 GM TUBE TOP SCH (15:30)
[2017-04-27] MEDS: CEFTRIAXONE 1 GM/50 ML (PMX) 50 ML IVPB SCH (17:24)
[2017-04-27 20:31] VITALS: BP 131/60; RESP 18
[2017-04-27] MEDS: DOCUSATE SODIUM 100 MG CAP PO PRN (20:43)
[2017-04-28] VITALS (10 sets, daily range): BP systolic 112–140; BP diastolic 56–67; PULSE 77–80; RESP 16–18
[2017-04-28] MEDS: ACCUCHECK AT 2AM (Patients on SS coverage) XX SCH (02:00)
[2017-04-28] MEDS: PANTOPRAZOLE (EC) 40 MG TAB PO SCH (05:35)
[2017-04-28] MEDS: CALCIUM ACETATE 667 MG CAP PO SCH ×3 (08:33→17:40)
[2017-04-28] MEDS: ASCORBIC ACID 500 MG TAB PO SCH (08:33)
[2017-04-28] MEDS: PREDNISOLONE ACET 1% 5 ML OPH RIGHT EYE SCH ×2 (08:33→20:13)
[2017-04-28] MEDS: LACTOBACILLUS RHAMNOSUS CAP PO SCH ×2 (08:33→20:12)
[2017-04-28] MEDS: ZINC SULFATE 220 MG CAP PO SCH (08:33)
[2017-04-28] MEDS: GABAPENTIN 300 MG CAP PO SCH ×3 (08:33→20:12)
[2017-04-28] MEDS: INSULIN ASPART [NOVOLOG] 3 ML PEN SC SCH ×4 (08:35→20:13)
[2017-04-28] MEDS: INSULIN DETEMIR [LEVEMIR] 3ML CART SC SCH ×2 (08:36→20:14)
[2017-04-28] MEDS: AMLODIPINE 5 MG TAB PO SCH (08:36)
[2017-04-28] MEDS: COLLAGENASE 30 GM TUBE TOP SCH (08:37)
--- NOTE | 2017-04-28 11:05 | CONS ---
Date/Time of Note Date/Time of Note DATE: 04/28/17 TIME: 11:04 Assessment/Plan Assessment/Plan Chief Complaint/Hosp Course - ESRD ON HEMODIALYSIS @ [facility] - ANEMIA - HEMATURIA / BLEEDING - DM - HYPERTENSION - RECENT Hx OF LEG CELLULITIS ( ON ABX ) - HIGH PHOS. - HYPONATREMIA PLAN: Continue with HD as planned Bedside dialysis Continue with EPOGEN Check Iron status Continue with Abx Problems: Consultation Date/Type/Reason Admit Date/Time April 07, 2017 at 21:56 Initial Consult Date 04/09/17 Type of Consultation: NEPHROLOGY Reason for Consultation - ESRD on Dialysis @ [facility] Referring Provider: BAL MAYER MD 24 HR Interval Summary Constitutional: improved, no complaints Exam/Review of Systems Vital Signs Vitals Vital Signs Date Time Temp Pulse Resp B/P Pulse Ox O2 Delivery O2 Flow Rate FiO2 04/28/17 08:15 98.1 66 18 137/65 98 04/27/17 22:34 Nasal Cannula 2.0 Intake and Output 04/27/17 04/27/17 04/28/17 15:00 23:00 07:00 Intake Total 790 ml 360 ml Balance 790 ml 360 ml Exam Constitutional: alert, oriented Respiratory: crackles/rales Cardiovascular: edema, regular rate and rhythm, systolic murmur Gastrointestinal: soft Results Result Diagram: 04/26/17 0426 04/26/17 0426 Results 24 hrs Laboratory Tests Test 04/27/17 12:02 04/27/17 17:23 04/27/17 20:25 04/28/17 02:05 Bedside Glucose 190 163 199 192 Test 04/28/17 08:03 Bedside Glucose 165 Medications Medications Current Medications Ondansetron HCl (Zofran Inj) 4 mg Q6H PRN IV NAUSEA AND/OR VOMITING Last administered on 04/25/17 09:07; Admin Dose 4 MG; Start 04/07/17 at 22:30 Acetaminophen (Tylenol Tab) 650 mg Q6H PRN PO PAIN LEVEL 1-3 OR FEVER Last administered on 04/12/17 17:35; Admin Dose 650 MG; Start 04/07/17 at 22:30 Morphine Sulfate (morphine) 2 mg Q4H PRN IV SEVERE PAIN LEVEL 7-10 Last administered on 04/26/17 16:44; Admin Dose 2 MG; Start 04/07/17 at 22:30 Docusate Sodium (Colace) 100 mg Q12H PRN PO CONSTIPATION Last administered on 20:43; Admin Dose 100 MG; Start 04/07/17 at 22:30 Pantoprazole (Protonix Tab) 40 mg DAILY@06 PO Last administered on 04/28/17 05 :35; Admin Dose 40 MG; Start 04/08/17 at 06:00 Amlodipine Besylate (Norvasc) 5 mg DAILY PO Last administered on 04/27/17 08: 23; Admin Dose 5 MG; Start 04/08/17 at 09:00 Ascorbic Acid (Vitamin C) 500 mg DAILY PO Last administered on 04/28/17 08:33 ; Admin Dose 500 MG; Start 04/08/17 at 09:00 Aspirin (Halfprin) 81 mg DAILY PO ; Start 04/08/17 at 09:00; Status Future Hold Zinc Sulfate (Zinc Sulfate) 220 mg DAILY PO Last administered on 04/28/17 08: 33; Admin Dose 220 MG; Start 04/08/17 at 09:00 Miscellaneous Information 1 ea NOTE XX ; Start 04/07/17 at 23:00 Glucose (Glutose) 15 gm Q15M PRN PO DECREASED GLUCOSE; Start 04/07/17 at 23:00 Glucose (Glutose) 22.5 gm Q15M PRN PO DECREASED GLUCOSE; Start 04/07/17 at 23: 00 Dextrose (D50w Syringe) 25 ml Q15M PRN IV DECREASED GLUCOSE; Start 04/07/17 at 23:00 Dextrose (D50w Syringe) 50 ml Q15M PRN IV DECREASED GLUCOSE; Start 04/07/17 at 23:00 Glucagon (Glucagen) 1 mg Q15M PRN IM DECREASED GLUCOSE; Start 04/07/17 at 23:00 Glucose (Glutose) 15 gm Q15M PRN BUCCAL DECREASED GLUCOSE; Start 04/07/17 at 23 :00 Diagnostic Test (Pha) (Accu-Chek) 1 ea 02 XX Last administered on 04/27/17 02: 07; Admin Dose 1 EA; Start 04/08/17 at 02:00 Collagenase (Santyl) 1 applic DAILY TOP Last administered on 04/27/17 15:30; Admin Dose 1 APPLIC; Start 04/09/17 at 16:00 Collagenase 1 applic 1 applic PRN PRN TOP WOUND CARE Last administered on 00:28; Admin Dose 1 APPLIC; Start 04/09/17 at 14:30 Ceftriaxone Sodium 50 ml @ 100 mls/hr Q24H IVPB Last administered on 17:24; Admin Dose 100 MLS/HR; Start 04/11/17 at 17:00 Fluconazole/ Sodium Chloride (Diflucan 100 Mg/ NS (Pmx)) 50 ml @ 50 mls/hr Q24H IVPB Last administered on 04/27/17 15:30; Admin Dose 50 MLS/HR; Start 04/12/17 at 16:00 Gabapentin (Neurontin) 300 mg TID PO Last administered on 04/28/17 08:33; Admin Dose 300 MG; Start 04/13/17 at 14:15 Lactulose (Enulose) 20 gm Q6H PRN PO CONSTIPATION Last administered on 20:43; Admin Dose 20 GM; Start 04/13/17 at 13:30 Prednisolone Acetate (Pred-Forte 1%) 1 drop BID RIGHT EYE Last administered on 04/28/17 08:33; Admin Dose 1 DROP; Start 04/13/17 at 21:30 Miscellaneous Information Patients own medicat... BID@10,16 XX ; Start 04/14/17 at 10:00 Simethicone (Mylicon) 80 mg Q4H PRN PO GAS PAINS Last administered on 04/15/17 08:15; Admin Dose 80 MG; Start 04/14/17 at 11:09 Epoetin Indra (Epogen (Esrd)) 8,000 units MoWeFr@17 SC Last administered on 04/25 17:00; Admin Dose 8,000 UNITS; Start 04/16/17 at 17:00 Lactobacillus Acidophilus/ Rhamnosus 1 cap 1 cap BID PO Last administered on 08:33; Admin Dose 1 CAP; Start 04/14/17 at 15:00 Vancomycin HCl (Vancocin) 250 ml @ 125 mls/hr Q5D IVPB Last administered on 23:54; Admin Dose 125 MLS/HR; Start 04/16/17 at 22:00 Ondansetron HCl (Zofran Tab) 4 mg Q4H PRN PO NAUSEA AND/OR VOMITING; Start 08/26 at 10:30 Morphine Sulfate (morphine) 10 mg Q3H PRN PO PAIN Last administered on 21:52; Admin Dose 10 MG; Start 04/19/17 at 11:00 Insulin Detemir (Levemir) 10 unit BID@08,20 SC Last administered on 04/28/17 08:36; Admin Dose 10 UNIT; Start 04/20/17 at 20:00 ANIBAL ALMANZAR MD Apr 28, 2017 11:05
[2017-04-28] MEDS ORDERED: MAGNESIUM CITRATE 300 ML BTL PO ONE (16:00)
[2017-04-28] MEDS: FLUCONAZOLE 100 MG/NS (PMX) 50 ML IVPB SCH (17:02)
--- NOTE | 2017-04-28 17:35 | PN ---
DATE: 04/28/2017 SUBJECTIVE: The patient is seen complaining of constipation. The patient is awaiting placement. C banner manager title to assist. The patient is status post hemodialysis today. OBJECTIVE: VITAL SIGNS: Temperature is 98.1, afebrile, pulse 77, respirations 18, blood pressure 137/65, satur ation 98% on 2 liter nasal cannula. GENERAL: No acute distress, morbidly obese, pale. CARDIOVASCULAR: Positive S1, S2, regular rate. LUNGS: Clear. ABDOMEN: Soft, nontender. EXTREMITIES: No clubbing, cyanosis, or edema. The patient has medial thigh wound and left heel wou nd. MEDICATIONS: All reviewed and include the following 1. Levemir 10 units b.i.d. 2. Morphine p.r.n. 3. Zofran p.r.n. 4. Vancomycin IV dose per pharmacy. 5. Epogen 8000 q. Friday, Friday, and Friday. 6. Culturelle b.i.d. 7. Simethicone p.r.n. 8. Pred forte b.i.d. 9. Neurontin 200 t.i.d. 10. Lactulose 20 grams p.r.n. 11. Diflucan q. 24 hours. 12. Rocephin 1 gram q. 24 hours. 13. Santyl as directed. 14. Norvasc 5 daily. 15. Vitamin C 500 mg daily. 16. Zinc sulfate 220 mg daily. 17. Insulin aspart per sliding scale. 18. PhosLo 1.3 grams t.i.d. meals. 19. Protonix 40 mg daily. 20. Accu-Chek q. a.c. and at bedtime. 21. Hypoglycemia protocol. ASSESSMENT AND PLAN: This is an unfortunate 61-year-old morbidly obese female with history of diabetes mellitus, end-stage renal disease, hypertension, and chronic left thigh wound who prese nted with acute cystitis. 1. Acute cystitis, resolved. 2. Left heel wound and left medial thigh wound. Continue wound care and revascularization procedur es to be done per Dr. Walton. 3. End-stage renal disease, dialysis every Friday, Friday, Friday. 4. Anemia. Continue Epogen. 5. Infectious disease. Remains on antibiotics with vancomycin, ceftriaxone, and Diflucan. White c ount is normal. The patient is afebrile. 6. Diabetes mellitus. Continue current regimen of Levemir and insulin. 7. Constipation. Stool softeners will be provided. The patient is requesting for magnesium citrat e. 8. Disposition to [facility] when bed is available as the patient overall appears to be improving. 9. Right AV fistula. Also, needs further procedures for that to work appropriately. We will nadine nue to monitor. Dictated By: BAL BERG/VICTORINA Conf#: [id number] DID#: [id number]
[2017-04-28] MEDS: CEFTRIAXONE 1 GM/50 ML (PMX) 50 ML IVPB SCH (17:37)
[2017-04-28] MEDS: EPOETIN 4000 UNITS/1 ML INJ (ESRD) SC SCH (17:38)
--- NOTE | 2017-04-28 21:28 | CONS ---
Date/Time of Note Date/Time of Note DATE: 04/28/17 TIME: 21:27 Assessment/Plan Assessment/Plan Chief Complaint/Hosp Course SUBJECTIVE: No acute changes. In HD, Looks comfortable. No fevers INDWELLINGS: Right chest PermCath and left upper extremity AV fistula. ANTIMICROBIALS: 1. Fluconazole 2. Rocephin. 3. IV vancomycin. PHYSICAL EXAMINATION: GENERAL: This is a morbidly obese, elderly woman who is alert, in no distress. HEENT: Head atraumatic, normocephalic. Sclerae anicteric. Buccal mucosa pink. NECK: Obese. CHEST: Rise symmetrical. Breath sounds clear. HEART: S1, S2. ABDOMEN: Soft. Bowel tones present. No tenderness over suprapubic area. EXTREMITIES: No cyanosis. ASSESSMENT: 1. Systemic inflammatory response syndrome ==> s/p leukocytosis. 2. Left upper thigh chronic necrotic wound, status post debridement 04/16/17, pathology revealed acute inflammation. 3. Status post urinary tract infection and hematuria. 4. End-stage renal disease, hemodialysis dependent. 5. Chronic pain syndrome. 6. Diabetes. 7. Morbid obesity. 8. PAD, s/p angiogram PLAN: The patient remains stable, continue local wound care, f/u labs in am. DW staff Problems: Consultation Date/Type/Reason Admit Date/Time April 07, 2017 at 21:56 Initial Consult Date 04/11/17 Type of Consultation: ID Referring Provider: BAL MAYER MD Exam/Review of Systems Vital Signs Vitals Vital Signs Date Time Temp Pulse Resp B/P Pulse Ox O2 Delivery O2 Flow Rate FiO2 04/28/17 20:33 98.2 70 16 140/63 96 04/28/17 08:30 Nasal Cannula 2.0 Intake and Output 04/27/17 04/27/17 04/28/17 15:00 23:00 07:00 Intake Total 790 ml 360 ml Balance 790 ml 360 ml Results Result Diagram: 04/26/17 0426 04/26/17 0426 Results 24 hrs Laboratory Tests Test 04/28/17 02:05 04/28/17 08:03 04/28/17 12:08 04/28/17 17:34 Bedside Glucose 192 165 196 180 Test 04/28/17 20:10 Bedside Glucose 167 Medications Medications Current Medications Ondansetron HCl (Zofran Inj) 4 mg Q6H PRN IV NAUSEA AND/OR VOMITING Last administered on 04/25/17 09:07; Admin Dose 4 MG; Start 04/07/17 at 22:30 Acetaminophen (Tylenol Tab) 650 mg Q6H PRN PO PAIN LEVEL 1-3 OR FEVER Last administered on 04/12/17 17:35; Admin Dose 650 MG; Start 04/07/17 at 22:30 Morphine Sulfate (morphine) 2 mg Q4H PRN IV SEVERE PAIN LEVEL 7-10 Last administered on 04/26/17 16:44; Admin Dose 2 MG; Start 04/07/17 at 22:30 Docusate Sodium (Colace) 100 mg Q12H PRN PO CONSTIPATION Last administered on 20:43; Admin Dose 100 MG; Start 04/07/17 at 22:30 Pantoprazole (Protonix Tab) 40 mg DAILY@06 PO Last administered on 04/28/17 05 :35; Admin Dose 40 MG; Start 04/08/17 at 06:00 Amlodipine Besylate (Norvasc) 5 mg DAILY PO Last administered on 04/27/17 08: 23; Admin Dose 5 MG; Start 04/08/17 at 09:00 Ascorbic Acid (Vitamin C) 500 mg DAILY PO Last administered on 04/28/17 08:33 ; Admin Dose 500 MG; Start 04/08/17 at 09:00 Aspirin (Halfprin) 81 mg DAILY PO ; Start 04/08/17 at 09:00; Status Future Hold Zinc Sulfate (Zinc Sulfate) 220 mg DAILY PO Last administered on 04/28/17 08: 33; Admin Dose 220 MG; Start 04/08/17 at 09:00 Miscellaneous Information 1 ea NOTE XX ; Start 04/07/17 at 23:00 Glucose (Glutose) 15 gm Q15M PRN PO DECREASED GLUCOSE; Start 04/07/17 at 23:00 Glucose (Glutose) 22.5 gm Q15M PRN PO DECREASED GLUCOSE; Start 04/07/17 at 23: 00 Dextrose (D50w Syringe) 25 ml Q15M PRN IV DECREASED GLUCOSE; Start 04/07/17 at 23:00 Dextrose (D50w Syringe) 50 ml Q15M PRN IV DECREASED GLUCOSE; Start 04/07/17 at 23:00 Glucagon (Glucagen) 1 mg Q15M PRN IM DECREASED GLUCOSE; Start 04/07/17 at 23:00 Glucose (Glutose) 15 gm Q15M PRN BUCCAL DECREASED GLUCOSE; Start 04/07/17 at 23 :00 Diagnostic Test (Pha) (Accu-Chek) 1 ea 02 XX Last administered on 04/27/17 02: 07; Admin Dose 1 EA; Start 04/08/17 at 02:00 Collagenase (Santyl) 1 applic DAILY TOP Last administered on 04/27/17 15:30; Admin Dose 1 APPLIC; Start 04/09/17 at 16:00 Collagenase 1 applic 1 applic PRN PRN TOP WOUND CARE Last administered on 00:28; Admin Dose 1 APPLIC; Start 04/09/17 at 14:30 Ceftriaxone Sodium 50 ml @ 100 mls/hr Q24H IVPB Last administered on 17:37; Admin Dose 100 MLS/HR; Start 04/11/17 at 17:00 Fluconazole/ Sodium Chloride (Diflucan 100 Mg/ NS (Pmx)) 50 ml @ 50 mls/hr Q24H IVPB Last administered on 04/28/17 17:02; Admin Dose 50 MLS/HR; Start 04/12/17 at 16:00 Gabapentin (Neurontin) 300 mg TID PO Last administered on 04/28/17 20:12; Admin Dose 300 MG; Start 04/13/17 at 14:15 Lactulose (Enulose) 20 gm Q6H PRN PO CONSTIPATION Last administered on 20:43; Admin Dose 20 GM; Start 04/13/17 at 13:30 Prednisolone Acetate (Pred-Forte 1%) 1 drop BID RIGHT EYE Last administered on 04/28/17 20:13; Admin Dose 1 DROP; Start 04/13/17 at 21:30 Miscellaneous Information Patients own medicat... BID@10,16 XX ; Start 04/14/17 at 10:00 Simethicone (Mylicon) 80 mg Q4H PRN PO GAS PAINS Last administered on 04/15/17 08:15; Admin Dose 80 MG; Start 04/14/17 at 11:09 Epoetin Indra (Epogen (Esrd)) 8,000 units MoWeFr@17 SC Last administered on 04/28 17:38; Admin Dose 8,000 UNITS; Start 04/16/17 at 17:00 Lactobacillus Acidophilus/ Rhamnosus 1 cap 1 cap BID PO Last administered on 20:12; Admin Dose 1 CAP; Start 04/14/17 at 15:00 Vancomycin HCl (Vancocin) 250 ml @ 125 mls/hr Q5D IVPB Last administered on 23:54; Admin Dose 125 MLS/HR; Start 04/16/17 at 22:00 Ondansetron HCl (Zofran Tab) 4 mg Q4H PRN PO NAUSEA AND/OR VOMITING; Start 08/26 at 10:30 Morphine Sulfate (morphine) 10 mg Q3H PRN PO PAIN Last administered on 21:52; Admin Dose 10 MG; Start 04/19/17 at 11:00 Insulin Detemir (Levemir) 10 unit BID@08,20 SC Last administered on 04/28/17 20:14; Admin Dose 10 UNIT; Start 04/20/17 at 20:00 ALYX NAVARRO NP Apr 28, 2017 21:28
[2017-04-28] MEDS: LACTULOSE 30ML CUP PO PRN (23:43)
[2017-04-29] MEDS: ACCUCHECK AT 2AM (Patients on SS coverage) XX SCH (01:52)
[2017-04-29] MEDS: PANTOPRAZOLE (EC) 40 MG TAB PO SCH (06:26)
[2017-04-29 06:38] LABS: ADD SCAN DIFF NO
[2017-04-29 06:47] LABS: BASOPHIL # 0.1 10^3/ul (0.0-0.1); BASOPHILS % 0.6 % (0.0-2.0); EOSINOPHILS # 0.4 10^3/ul (0.0-0.5); EOSINOPHILS % 3.6 % (0.0-7.0); HEMATOCRIT 30.9 % (37.0-47.0); HEMOGLOBIN 9.2 g/dl (12.0-16.0); LYMPHOCYTES # 1.8 10^3/ul (0.8-2.9); LYMPHOCYTES % 16.1 % (15.0-51.0); MEAN CORPUSCULAR HEMOGLOBIN 28.6 pg (29.0-33.0); MEAN CORPUSCULAR HGB CONC 29.8 g/dl (32.0-37.0); MEAN PLATELET VOLUME 9.6 fl (7.4-10.4); MONOCYTES % 8.6 % (0.0-11.0); NEUTROPHIL # 7.9 10^3/ul (1.6-7.5); NEUTROPHILS % 68.9 % (39.0-77.0); NUCLEATED RED BLOOD CELLS% 0.2 /100WBC (0.0-0.0); PLATELET COUNT 320 10^3/UL (140-415); RED BLOOD COUNT 3.22 10^6/ul (4.20-5.40); RED CELL DISTRIBUTION WIDTH 15.5 % (11.5-14.5); WHITE BLOOD COUNT 11.5 10^3/ul (4.8-10.8)
[2017-04-29] MEDS: CALCIUM ACETATE 667 MG CAP PO SCH ×5 (07:35→18:45)
[2017-04-29] MEDS: INSULIN ASPART [NOVOLOG] 3 ML PEN SC SCH ×4 (08:00→18:45)
[2017-04-29] MEDS: INSULIN DETEMIR [LEVEMIR] 3ML CART SC SCH (08:11)
[2017-04-29] MEDS: LACTOBACILLUS RHAMNOSUS CAP PO SCH (08:31)
[2017-04-29] MEDS: PREDNISOLONE ACET 1% 5 ML OPH RIGHT EYE SCH (08:31)
[2017-04-29] MEDS: ZINC SULFATE 220 MG CAP PO SCH (08:31)
[2017-04-29] MEDS: ASCORBIC ACID 500 MG TAB PO SCH (08:31)
[2017-04-29] MEDS: AMLODIPINE 5 MG TAB PO SCH (08:31)
[2017-04-29] MEDS: GABAPENTIN 300 MG CAP PO SCH ×2 (08:31→12:58)
[2017-04-29 08:41] VITALS: BP 151/68; RESP 16
[2017-04-29] MEDS: COLLAGENASE 30 GM TUBE TOP SCH ×2 (09:00→14:30)
[2017-04-29] MEDS ORDERED: BISACODYL 10 MG SUPP PR PRN (10:30)
[2017-04-29] MEDS ORDERED: BISACODYL 10 MG SUPP PR ONE (10:30)
--- NOTE | 2017-04-29 13:15 | PN ---
DATE: 04/29/2017 SUBJECTIVE: Patient is lying comfortably in bed. She is afebrile. Vital signs stable. WBC 11.5, platelets 320, no shift, no bands. INDWELLINGS: Right chest Perm-A-Cath upper extremity AV fistula. ANTIMICROBIALS: Rocephin, vancomycin, Diflucan. PHYSICAL EXAMINATION: GENERAL: Morbidly obese elderly woman in no distress. HEENT: Head atraumatic, normocephalic. Sclerae anicteric. Buccal mucosa dry. NECK: Supple. CHEST: Rise symmetrical. Breath sounds clear, diminished to bases. HEART: S1, S2. ABDOMEN: Soft, bowel tones present. EXTREMITIES: No cyanosis. Left upper thigh wound with some purulent drainage. ASSESSMENT: 1. Systemic inflammatory response syndrome. 2. Left upper thigh necrotic wound, status post debridement. 3. End-stage renal disease, on hemodialysis. 4. Status post urinary tract infection. 5. Diabetes. 6. Morbid obesity. 7. Peripheral vascular disease. PLAN: The patient remains stable. Again, wound with some drainage. We are going to reculture it. Continue her on current antimicrobials for now. Continue local wound care. Dictated By: ALYX NAVARRO WEB EDITOR for LUCAS MARCELO/VICTORINA Conf#: [id number] DID#: [id number]
[2017-04-29] MEDS: FLUCONAZOLE 100 MG/NS (PMX) 50 ML IVPB SCH (15:48)
--- NOTE | 2017-04-29 15:58 | PDOCDIS ---
Discharge Instructions CONDITION Patient Condition: Stable HOME CARE INSTRUCTIONS: Special Diet: 1800 ADA ACTIVITY: Activity Restrictions: Slowly Increase Activity FOLLOW UP/APPOINTMENTS Appointments see reconciliation, physical therapy, air mattress bed, keep left heel off pressure, follow up at the wound center/[facility] within 1 week BAL MAYER MD Apr 29, 2017 15:58
--- NOTE | 2017-04-29 16:01 | PN ---
DATE: 04/29/2017 SUBJECTIVE: Patient seen. Earlier, she had a bout of constipation and given multiple stool softene rs. Now with a Dulcolax suppository, the patient is doing better as she had a large bowel movement. Initially with no specific complaints. Case discussed with case management regarding SNF placemen t as we are awaiting her is to be accepted. PHYSICAL EXAMINATION: VITAL SIGNS: Temperature is 98.4, pulse is 67, respirations 16, blood pressure 151/68, saturation 9 2% on 2 liters. GENERAL: The patient in no acute distress. The patient is pale, morbidly obese. CARDIOVASCULAR: S1 and S2, regular rate. LUNGS: Clear. ABDOMEN: Soft, nontender. EXTREMITIES: No clubbing, cyanosis, or edema. She does have left heel necrotic tissue and left med ial thigh wound which was recultured per ID. LABORATORY DATA: White count is 11.5, hemoglobin 9.2, hematocrit 31, platelet count 326, eosinophil s 9%, lymphocytes 6%. Chemistry: No electrolytes today. Last glucose of 160 to 167 and 180. MEDICATIONS: Reviewed. 1. Dulcolax 10 mg [place] p.r.n. 2. Levemir 10 units b.i.d. 3. Morphine p.r.n. 4. Zofran p.r.n. 5. Vancomycin IV dose per pharmacy. 6. Epogen 8000 every Friday, Friday, Friday. 7. Culturelle 1 cap b.i.d. 8. Simethicone as directed. 9. Pred Forte b.i.d. to the right eye. 10. Neurontin 300 t.i.d. 11. Lactulose p.r.n. 12. Diflucan IV daily. 13. Rocephin 1 gram q.24h. 14. Santyl applied daily. 15. Norvasc 5 mg daily. 16. Vitamin C 500 mg daily. 17. Zinc sulfate 220 mg daily. 18. Insulin aspart per sliding scale. 19. PhosLo 1.3 grams t.i.d. meals. 20. Protonix 40 mg daily. 21. Accu-Chek q.a.c. and at bedtime. 22. Vancomycin dose per pharmacy. 23. Hypoglycemia protocol. 24. Zofran p.r.n. 25. Tylenol p.r.n. 26. Morphine p.r.n. 27. Colace p.r.n. ASSESSMENT AND PLAN: 1. This is a 61-year-old morbidly obese female with history of diabetes mellitus, end-stag e renal disease, hypertension, chronic left thigh wound, who presented with acute cystitis. 2. Acute cystitis, resolved. 3. Left heel wound, the left medial thigh wound. The left medial thigh wound still has some draina ge. Wound culture was obtained. Continue antibiotics per Dr. Guevara. Further revascularization p rocedure as per Dr. Walton. 4. End-stage renal disease. 5. Dialysis is planned for tomorrow. 6. Anemia. Continue Epogen. No need for transfusion. 7. Infectious disease. The patient has been on Diflucan and vancomycin. White count is slightly h igher today, observe. 7. Diabetes mellitus. Remains on Levemir 10 units b.i.d. Patient's glucose levels are as follows: 163, 167 and 180. We will continue the same. 8. Morbidly obese. Overall very sedentary difficult to participate with therapy. Continue [facility] facility placement for ongoing therapy. 9. Right AV fistula repair will also needed to be done as patient currently dialyzed through the [facility]. 10. Constipation. Continue stool softeners. 11. Overall, remains medically stable. Okay to discharge to retirement facility when bed is a vailable. We will follow. Dictated By: BAL BERG/VICTORINA Conf#: [id number] DID#: [id number]
[2017-04-29] MEDS: CEFTRIAXONE 1 GM/50 ML (PMX) 50 ML IVPB SCH (17:08)
== END 2017-04-29 20:11 | DRG 673 ==
LOC: E/R 18:10 → PP2 21:56
PROVIDERS: ADMIT Internal Medicine; ATTEND Internal Medicine
PROC: 30233N1 Transfusion of Nonautologous Red Blood Cells into Peripheral Vein, Percutaneous Approach (ICD-10-PCS; 2017-04-08)
PROC: 5A1D60Z (ICD-10-PCS; 2017-04-09)
PROC: 0JBM3ZZ Excision of Left Upper Leg Subcutaneous Tissue and Fascia, Percutaneous Approach (ICD-10-PCS; 2017-04-15)
PROC: 02HV33Z Insertion of Infusion Device into Superior Vena Cava, Percutaneous Approach (ICD-10-PCS; 2017-04-20)
PROC: 057F3ZZ Dilation of Left Cephalic Vein, Percutaneous Approach (ICD-10-PCS; principal; 2017-04-21 07:30)
DX: N30.01 Acute cystitis with hematuria (principal); N18.6 End stage renal disease; I96 Gangrene, not elsewhere classified; L89.43 Pressure ulcer of contiguous site of back, buttock and hip, stage 3; L89.152 Pressure ulcer of sacral region, stage 2; L89.312 Pressure ulcer of right buttock, stage 2; I12.0 Hypertensive chronic kidney disease with stage 5 chronic kidney disease or end stage renal disease; L03.116 Cellulitis of left lower limb; Z68.42 Body mass index [BMI] 45.0-49.9, adult; E87.1 Hypo-osmolality and hyponatremia; B37.41 Candidal cystitis and urethritis; T82.858A Stenosis of other vascular prosthetic devices, implants and grafts, initial encounter; L89.153 Pressure ulcer of sacral region, stage 3; E11.8 Type 2 diabetes mellitus with unspecified complications; R33.9 Retention of urine, unspecified; E66.01 Morbid (severe) obesity due to excess calories; R10.2 Pelvic and perineal pain; Z99.2 Dependence on renal dialysis; Z79.4 Long term (current) use of insulin; D50.0 Iron deficiency anemia secondary to blood loss (chronic); B96.20 Unspecified Escherichia coli [E. coli] as the cause of diseases classified elsewhere; G89.29 Other chronic pain; S71.102A Unspecified open wound, left thigh, initial encounter; X58.XXXA Exposure to other specified factors, initial encounter; M06.9 Rheumatoid arthritis, unspecified; B96.89 Other specified bacterial agents as the cause of diseases classified elsewhere; G62.9 Polyneuropathy, unspecified; K59.00 Constipation, unspecified; L89.620 Pressure ulcer of left heel, unstageable; L89.322 Pressure ulcer of left buttock, stage 2; I70.241 Atherosclerosis of native arteries of left leg with ulceration of thigh
CPT/HCPCS: 36415; 36430; 36569; 71010; 74176; 75635; 75710; 76775; 76830; 76856; 76937; 80048; 80053; 80202; 81001; 82962; 83036; 83605; 83690; 83735; 84100; 84443; 85025; 85610; 85730; 86850; 86900; 86901; 86920; 87040; 87070; 87081; 87086; 88104; 88304; 90935; 93922; 93931; 96365; 96375; 97162; C1725; C1769; C1894; J0696; J1450; J1644; J1815; J2185; J2250; J2270; J2405; J2543; J3010; J3370; J7040; J7050; P9016; Q4081; Q9967

== ENCOUNTER 2017-05-17 07:43 | Inpatient (IN) | payer BC, OTHER ==
[2017-05-17] VITALS (14 sets, daily range): BP systolic 140–170; BP diastolic 75–89; PULSE 71–85; RESP 16–20; Ht 165.1 cm; Wt 116.4 kg
[~2017-05-17] VITALS: Ht 165.1 cm; Wt 116.4 kg
[~2017-05-17 07:43] MED LIST changes: +AMLO5TAB4 PO; +ASCO500C7 PO; +CALC667C PO; -FURO40TA4 PO; +INSU100I27 SQ; -LANT3I SC; -LEVO500T72 PO; -LOSA100T47 PO; -METO-407 PO; +MORP10CA11 PO; +ONDA4TAB8 PO; -Oxycodone/Acetamin (5/325) PO; +PANT40TA3 PO; -SYN1 PO; -VANC1PLA9 IV; +ZINC220T PO
[2017-05-17] MEDS ORDERED: ONDANSETRON 4 MG INJ IV STA (08:03)
--- NOTE | 2017-05-17 08:13 | ERA ---
ER Documentation Chief Complaint Date/Time DATE: 05/17/17 TIME: 08:09 Chief Complaint BIB RA FROM [facility] FOR SOB X 1 WEEK HPI Patient is a 61-year-old female who presents with gradual onset, constant, moderate to severe shortness of breath for 5 days. Patient reports mild nonproductive cough. She denies fever. She denies vomiting, chest pain, back pain. Patient is on dialysis, and states that her shortness of breath got worse during her dialysis yesterday. ROS All systems reviewed and are negative except as per history of present illness. Medications Home Meds Reported Medications Calcium Acetate* (Calcium Acetate*) 667 Mg Capsule, 1334 MG PO WITH MEALS, #60 CAP 04/07/17 Zinc Sulfate* (Zinc Sulfate*) 220 Mg Tablet, 220 MG PO DAILY, TAB 04/07/17 Ascorbic Acid* (Vitamin C*) 500 Mg Capsule.sa, 500 MG PO DAILY, CAP 04/07/17 Hydralazine Hcl* (Hydralazine Hcl*) 50 Mg Tab, 50 MG PO Q4H, #60 TAB TAKE IF SBP>170 DX 04/07/17 Morphine Sulfate (Morphine Sulfate ER) 10 Mg Cap.er.pel, 10 MG PO Q3H Y for PRN , CAP 04/07/17 Gabapentin* (Gabapentin*) 100 Mg Capsule, 100 MG PO BID, #60 CAP 04/07/17 Amlodipine Besylate* (Norvasc*) 5 Mg Tablet, 5 MG PO DAILY, TAB 04/07/17 Ondansetron Hcl* (Zofran*) 4 Mg Tablet, 4 MG PO Q6H Y for NAUSEA AND OR VOMITING , TAB 04/07/17 Pantoprazole* (Protonix*) 40 Mg Tablet.dr, 40 MG PO DAILY, TAB 04/07/17 Insulin Aspart* (Novolog Insulin Pen*) 100 Unit/Ml Soln, 16 UNIT SC WITH MEALS, EA 04/07/17 Insulin Detemir (Levemir Flextouch) 100 Unit/1 Ml Insuln.pen, 26 UNIT SQ Q12H 04/07/17 Aspirin* (Aspirin* (EC)) 81 Mg Tablet.dr, 81 MG PO DAILY, TAB 12/12/14 Allergies Allergies: Coded Allergies: codeine (Verified Allergy, Unknown, 05/17/17) PMhx/Soc Past medical history: Diabetes mellitus, hypertension, end-stage renal disease Surgical history: AV fistula Social history: Denies tobacco, alcohol, or illicit drugs. States that she never smoked cigarettes. History of Surgery: Yes (Right and left carpal tunnel surgery, left leg surgery ) Anesthesia Reaction: No Hx Neurological Disorder: No Hx Cardiac Disorders: No Hx Psychiatric Problems: No Hx Miscellaneous Medical Probl: Yes (DM, ESRD, HTN, L inner thigh wound, chronic LE edema, GERD) Hx Alcohol Use: No Hx Substance Use: No Hx Tobacco Use: No Smoking Status: Never smoker FmHx Family History: No coronary disease, No diabetes Physical Exam Vitals Vital Signs Date Time Temp Pulse Resp B/P Pulse Ox O2 Delivery O2 Flow Rate FiO2 05/17/17 11:14 82 16 139/78 95 Nasal Cannula 6.0 05/17/17 09:47 84 19 147/58 97 Nasal Cannula 6.0 05/17/17 08:09 Nasal Cannula 6 05/17/17 07:56 Non Rebreather 8.0 05/17/17 07:50 97.5 90 18 154/78 99 Physical Exam Const: Alert, mild distress Head: Atraumatic Eyes: Normal Conjunctiva, no pallor, no icterus ENT: Normal External Ears, Nose and Mouth. Mucous membranes moist Neck: Full range of motion..~ No meningismus. No JVD Resp: Tachypnea, clear to auscultation bilaterally, no wheezes, no rales Cardio: Regular rate and rhythm, no murmurs Abd: Soft, non tender, non distended. Morbidly obese Skin: No petechiae or rashes Back: No midline or flank tenderness Ext: No cyanosis, 1+ edema bilateral legs. Chronic ulcer with skin necrosis to left heel, no discharge. Necrotic ulceration to left thigh. No discharge. Neur: Awake and alert, cranial nerves II through XII intact bilaterally, strength incision full in 4 extremities. Psych: Normal Mood and Affect Result Diagram: 05/17/17 0759 05/17/17 0759 Results 24 hrs Laboratory Tests Test 05/17/17 07:59 White Blood Count 16.710^3/ul Red Blood Count 3.1210^6/ul Hemoglobin 9.1g/dl Hematocrit 30.0% Mean Corpuscular Volume 96.2fl Mean Corpuscular Hemoglobin 29.2pg Mean Corpuscular Hemoglobin Concent 30.3g/dl Red Cell Distribution Width 15.4% Platelet Count 33747^3/UL Mean Platelet Volume 10.3fl Neutrophils % 81.6% Lymphocytes % 9.7% Monocytes % 5.9% Eosinophils % 0.8% Basophils % 0.7% Nucleated Red Blood Cells % 0.0/100WBC Neutrophils # 13.710^3/ul Lymphocytes # 1.610^3/ul Monocytes # 1.010^3/ul Eosinophils # 0.110^3/ul Basophils # 0.110^3/ul Nucleated Red Blood Cells # 0.010^3/ul Prothrombin Time 13.6Sec Prothrombin Time Ratio 1.1 INR International Normalized Ratio 1.04 Sodium Level 138mmol/L Potassium Level 3.3mmol/L Chloride Level 91mmol/L Carbon Dioxide Level 29mmol/L Anion Gap 21 Blood Urea Nitrogen 22mg/dl Creatinine 2.56mg/dl Glucose Level 289mg/dl Lactic Acid Level 1.2mmol/L Calcium Level 9.7mg/dl Total Bilirubin 0.1mg/dl Direct Bilirubin 0.00mg/dl Indirect Bilirubin 0.1mg/dl Aspartate Amino Transf (AST/SGOT) 19IU/L Alanine Aminotransferase (ALT/SGPT) 26IU/L Alkaline Phosphatase 184IU/L Troponin I < 0.012ng/ml B-Type Natriuretic Peptide 6160PG/ML Total Protein 8.2g/dl Albumin 4.5g/dl Globulin 3.70g/dl Albumin/Globulin Ratio 1.21 Current Medications Medications (Trade) Dose Ordered Sig/Memo Route PRN Reason Start Time Stop Time Status Last Admin Dose Admin Ondansetron HCl 4 mg 4 mg ONCE STAT IV 05/17/17 08:03 05/17/17 08:04 DC 05/17/17 08:12 Ceftriaxone Sodium 50 ml @ 100 mls/hr ONCE STAT IVPB 05/17/17 09:07 05/17/17 09:36 DC 05/17/17 09:34 Azithromycin (Zithromax 500mg/ NS (Pmx)) 250 ml @ 250 mls/hr ONCE STAT IV 05/17/17 09:07 05/17/17 10:06 DC 05/17/17 09:53 Ondansetron HCl (Zofran Inj) 4 mg ER BRIDGE PRN IV NAUSEA AND/OR VOMITING 05/17/17 11:00 7/9/17 10:59 Acetaminophen (Tylenol Tab) 650 mg ER BRIDGE PRN PO MILD PAIN/FEVER 05/17/17 11:00 05/18/17 10:59 Procedures/MDM EKG read by me: Time 830, rate 84 Rhythm: Normal sinus [place]: Normal Intervals: First-degree AV block ST-T waves: Nonspecific ST abnormality does not appear ischemic Ectopy: No Q-waves: No Impression: No evidence of ischemia or arrhythmia MDM: Patient is a 61-year-old female who presents to the ER with 5 days of gradual onset shortness of breath. The patient is on dialysis and last received dialysis yesterday. She has no fever or tachycardia, but is found to be hypoxic with a O2 sat of 84% on room air. Chest x-ray shows a left lower lobe infiltrate and evidence of pulmonary vascular congestion. She has significant leukocytosis. Lactic acid is not elevated. Blood cultures were sent and IV antibiotics given, but given that the patient is volume overloaded and likely will develop worsening respiratory status from IV fluids, IV fluids were withheld. Patient does not have signs of sepsis other than leukocytosis. The patient is not experiencing chest pain and troponin is not elevated. She has nonspecific changes on her EKG that did not clearly appear ischemic. Her BNP is significantly elevated indicating decompensated CHF. The patient will be admitted to a monitored bed for further dialysis and treatment of underlying pneumonia as well as further cardiac workup. I discussed the case with Dr. Bruno. Departure Diagnosis: Primary Impression: Pneumonia Additional Impressions: CHF (congestive heart failure) Qualified Code: I50.9 - Acute on chronic congestive heart failure, unspecified congestive heart failure type Hypoxemia Condition: Stable DREA LOMBARDI MD May 17, 2017 08:13
[2017-05-17 08:24] LABS: ADD SCAN DIFF NO
[2017-05-17 08:27] LABS: BASOPHIL # 0.1 10^3/ul (0.0-0.1); BASOPHILS % 0.7 % (0.0-2.0); EOSINOPHILS # 0.1 10^3/ul (0.0-0.5); EOSINOPHILS % 0.8 % (0.0-7.0); HEMOGLOBIN 9.1 g/dl (12.0-16.0); LYMPHOCYTES # 1.6 10^3/ul (0.8-2.9); LYMPHOCYTES % 9.7 % (15.0-51.0); MEAN CORPUSCULAR HEMOGLOBIN 29.2 pg (29.0-33.0); MEAN CORPUSCULAR HGB CONC 30.3 g/dl (32.0-37.0); MEAN CORPUSCULAR VOLUME 96.2 fl (82.0-101.0); MEAN PLATELET VOLUME 10.3 fl (7.4-10.4); MONOCYTES % 5.9 % (0.0-11.0); NEUTROPHIL # 13.7 10^3/ul (1.6-7.5); NEUTROPHILS % 81.6 % (39.0-77.0); PLATELET COUNT 330 10^3/UL (140-415); RED BLOOD COUNT 3.12 10^6/ul (4.20-5.40); RED CELL DISTRIBUTION WIDTH 15.4 % (11.5-14.5); WHITE BLOOD COUNT 16.7 10^3/ul (4.8-10.8)
[2017-05-17 08:43] LABS: INR 1.04; PROTIME 13.6 Sec (12.2-14.2); PT RATIO 1.1
[2017-05-17 08:46] LABS: ALANINE AMINOTRANSFERASE 26 IU/L (13-69); ALBUMIN 4.5 g/dl (3.3-4.9); ALBUMIN/GLOBULIN RATIO 1.21; ALKALINE PHOSPHATASE 184 IU/L (42-121); ANION GAP 21 (8-16); ASPARTATE AMINO TRANSFERASE 19 IU/L (15-46); BILIRUBIN,INDIRECT 0.1 mg/dl (0-1.1); BILIRUBIN,TOTAL 0.1 mg/dl (0.2-1.3); BLOOD UREA NITROGEN 22 mg/dl (7-20); CALCIUM 9.7 mg/dl (8.4-10.2); CARBON DIOXIDE 29 mmol/L (21-31); CHLORIDE 91 mmol/L (97-110); CREATININE 2.56 mg/dl (0.44-1.00); GLUCOSE 289 mg/dl (70-220); POTASSIUM 3.3 mmol/L (3.5-5.1); SODIUM 138 mmol/L (135-144); TOTAL PROTEIN 8.2 g/dl (6.1-8.1)
[2017-05-17 08:54] LABS: B-TYPE NATRIURETIC PEPTIDE 6160 PG/ML (0-125)
--- NOTE | 2017-05-17 08:55 | RADRPT ---
PROCEDURE: XR Chest. CLINICAL INDICATION: Dyspnea TECHNIQUE: Single frontal chest x-ray. COMPARISON: 04/20/2017 FINDINGS: Right-sided Perma-Cath and left-sided PICC line remain in place. There is moderate cardiomegaly and pulmonary vascular congestion/edema, grossly unchanged. There is question of focally increased opa city at the left lung base. Hazy bibasilar pulmonary opacities likely represent atelectasis and/or small pleural effusions. The osseous structures are remarkable for degenerative spondylosis of the spine. IMPRESSION: 1. Grossly stable moderate cardiomegaly and moderate pulmonary vascular congestion/edema. 2. There is question of focally increased opacity at the left lung base, possibly indicating develo ping pneumonia. 3. Bibasilar atelectasis and/or small pleural effusions are grossly stable. 4. Lines and tubes remain in place. RPTAT: HDWR .Adrian Riley MD, MD Date Time Electronically viewed and signed by .Adrian Riley MD, MD on 05/17/2017 08:55 .R/
[2017-05-17] MEDS ORDERED: CEFTRIAXONE 1 GM/50 ML (PMX) 50 ML IVPB STA (09:07)
[2017-05-17] MEDS ORDERED: AZITHROMYCIN 500MG/NS (PMX) 250 ML IV STA (09:07)
[2017-05-17 09:13] LABS: TROPONIN-I < 0.012 ng/ml (0.00-0.12)
[2017-05-17] MEDS ORDERED: ONDANSETRON 4 MG INJ IV PRN ×2 (11:00→14:00)
[2017-05-17] MEDS ORDERED: ACETAMINOPHEN 325 MG TAB PO PRN ×2 (11:00→14:00)
[2017-05-17] MEDS ORDERED: NACL 0.9% 3 ML SYG IV SCH (14:00)
[2017-05-17] MEDS ORDERED: HYDROCODONE/APAP (5/325) TAB PO PRN (14:00)
--- NOTE | 2017-05-17 14:18 | HP ---
Date/Time of Note Date/Time of Note DATE: 05/17/17 TIME: 14:05 Assessment/Plan VTE Prophylaxis VTE Prophylaxis Intervention: heparin Assessment/Plan Chief Complaint/Hosp Course 1. 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 Diabetes Resume home regimen, check A1c 4. Leukocytosis likely secondary to pneumonia IV antibiotic 5. Hypertension Resume home meds 6. Debility secondary to comorbidities 7. Chronic wounds Follows with vascular Prophylaxis: Heparin Problems: HPI/ROS Admit Date/Time Admit Date/Time May 17, 2017 at 12:21 Hx of Present Illness This is a 61-year-old female with history of end-stage renal disease on dialysis Friday, diabetes on insulin, debility resides in the [facility], history of cystitis and chronic wounds of the left heel and left medial thigh followed by vascular. Patient presents with shortness of breath, patient is a poor historian history is obtained from previous medical documentation. In the ED chest x-ray showed pulmonary edema and possible pneumonia. ROS Patient confused and is a poor historian PMH/Family/Social Past Medical History Includes diabetes mellitus, hypertension, end-stage renal disease, morbidly obese state, chronic lower extremity edema, left thigh chronic wound. Past Surgical History Right upper extremity AV fistula, left upper extremity tendon repair, left elbow surgery, carpal tunnel bilateral hand, right chest Perm-A-Cath. Family History Significant Family History: no pertinent family hx Social History Alcohol Use: none Smoking Status: Never smoker Drug Use: none Exam/Review of Systems Vital Signs Vitals Vital Signs Date Time Temp Pulse Resp B/P Pulse Ox O2 Delivery O2 Flow Rate FiO2 05/17/17 12:29 84 05/17/17 12:15 5.0 05/17/17 12:15 98.4 20 165/75 92 Nasal Cannula Exam Constitutional: alert Psych: confusion Head: normocephalic Respiratory: clear to auscultation Cardiovascular: regular rate and rhythm Gastrointestinal: soft Musculoskeletal: No nl extremities to inspection Labs Result Diagram: 05/17/17 0759 05/17/17 0759 Medications Medications Current Medications Ondansetron HCl (Zofran Inj) 4 mg Q6H PRN IV NAUSEA AND/OR VOMITING; Start 05/17 at 14:00; Status UNV Acetaminophen (Tylenol Tab) 650 mg Q6H PRN PO PAIN LEVEL 1-3 OR FEVER; Start at 14:00; Status UNV Acetaminophen/ Hydrocodone Bitart ([place] (5/325)) 1 tab Q6H PRN PO MODERATE PAIN LEVEL 4-6; Start 05/17/17 at 14:00; Status UNV Morphine Sulfate 2 mg 2 mg Q4H PRN IV SEVERE PAIN LEVEL 7-10; Start 05/17/17 at 14:00; Status UNV Ceftriaxone Sodium 50 ml @ 100 mls/hr Q24H IVPB ; Start 05/17/17 at 14:00; Status UNV Azithromycin (Zithromax 500mg/ NS (Pmx)) 250 ml @ 250 mls/hr Q24H IVPB ; Start 05/17/17 at 14:00; Status UNV RADHA DHILLON May 17, 2017 14:17
[2017-05-17] MEDS ORDERED: ONDANSETRON 4 MG TAB PO PRN (14:30)
[2017-05-17] MEDS: ZINC SULFATE 220 MG CAP PO SCH (15:00)
[2017-05-17] MEDS ORDERED: DEXTROSE 50% 50 ML SYRINGE IV PRN ×2 (15:00)
[2017-05-17] MEDS: ASCORBIC ACID 500 MG TAB PO SCH (15:00)
[2017-05-17] MEDS: GABAPENTIN 100 MG CAP PO SCH ×2 (15:00→23:00)
[2017-05-17] MEDS ORDERED: GLUCAGON 1 MG INJ IM PRN (15:00)
[2017-05-17] MEDS: PANTOPRAZOLE (EC) 40 MG TAB PO SCH (15:00)
[2017-05-17] MEDS ORDERED: GLUCOSE GEL 15 GRAM TUBE PO PRN ×2 (15:00)
[2017-05-17] MEDS: AMLODIPINE 5 MG TAB PO SCH (15:00)
[2017-05-17] MEDS: ASPIRIN (EC) 81 MG TAB PO SCH (15:00)
[2017-05-17] MEDS ORDERED: GLUCOSE GEL 15 GRAM TUBE BUCCAL PRN (15:00)
[2017-05-17] MEDS ORDERED: INSULIN DETEMIR [LEVEMIR] 3ML CART SC ONE (16:00)
[2017-05-17] MEDS: HEPARIN 5,000 UNIT/0.5 ML VIAL SC SCH ×2 (16:04→23:05)
[2017-05-17] MEDS ORDERED: PENDING SANTYL ORDER FOR WOUND CARE XX PRN (17:30)
[2017-05-17] MEDS: CALCIUM ACETATE 667 MG CAP PO SCH (17:49)
[2017-05-17] MEDS: INSULIN ASPART [NOVOLOG] 3 ML PEN SC SCH ×3 (17:55→21:03)
[2017-05-18] VITALS (19 sets, daily range): BP systolic 133–169; BP diastolic 65–89; PULSE 72–93; RESP 16–22
[2017-05-18] MEDS ORDERED: hydrALAzine 20 MG INJ IV PRN
[2017-05-18] MEDS: INSULIN ASPART [NOVOLOG] 3 ML PEN SC SCH ×9 (01:09→21:00)
[2017-05-18] MEDS: morphine 2 MG INJ IV PRN (05:18)
[2017-05-18] MEDS: INSULIN DETEMIR [LEVEMIR] 3ML CART SC SCH ×2 (05:23→17:14)
[2017-05-18 06:23] LABS: ADD SCAN DIFF NO
[2017-05-18 06:31] LABS: BASOPHIL # 0.1 10^3/ul (0.0-0.1); BASOPHILS % 0.9 % (0.0-2.0); EOSINOPHILS # 0.1 10^3/ul (0.0-0.5); EOSINOPHILS % 0.6 % (0.0-7.0); HEMATOCRIT 29.3 % (37.0-47.0); HEMOGLOBIN 8.6 g/dl (12.0-16.0); LYMPHOCYTES # 1.1 10^3/ul (0.8-2.9); LYMPHOCYTES % 10.8 % (15.0-51.0); MEAN CORPUSCULAR HEMOGLOBIN 28.7 pg (29.0-33.0); MEAN CORPUSCULAR HGB CONC 29.4 g/dl (32.0-37.0); MEAN CORPUSCULAR VOLUME 97.7 fl (82.0-101.0); MEAN PLATELET VOLUME 10.2 fl (7.4-10.4); MONOCYTE # 0.8 10^3/ul (0.3-0.9); MONOCYTES % 8.2 % (0.0-11.0); NEUTROPHIL # 7.7 10^3/ul (1.6-7.5); NEUTROPHILS % 77.4 % (39.0-77.0); PLATELET COUNT 305 10^3/UL (140-415); RED CELL DISTRIBUTION WIDTH 15.8 % (11.5-14.5)
[2017-05-18 06:58] LABS: CALCIUM 9.3 mg/dl (8.4-10.2); CREATININE 2.49 mg/dl (0.44-1.00); POTASSIUM 3.5 mmol/L (3.5-5.1)
[2017-05-18] MEDS: CALCIUM ACETATE 667 MG CAP PO SCH ×3 (07:55→17:01)
[2017-05-18] MEDS: GABAPENTIN 100 MG CAP PO SCH ×2 (08:20→21:17)
[2017-05-18] MEDS: AMLODIPINE 5 MG TAB PO SCH (08:20)
[2017-05-18] MEDS: ASCORBIC ACID 500 MG TAB PO SCH (08:20)
[2017-05-18] MEDS: PANTOPRAZOLE (EC) 40 MG TAB PO SCH (08:20)
[2017-05-18] MEDS: ASPIRIN (EC) 81 MG TAB PO SCH (08:20)
[2017-05-18] MEDS: ZINC SULFATE 220 MG CAP PO SCH (08:21)
[2017-05-18] MEDS: HEPARIN 5,000 UNIT/0.5 ML VIAL SC SCH ×2 (09:06→21:17)
[2017-05-18] MEDS: CEFTRIAXONE 1 GM/50 ML (PMX) 50 ML IVPB SCH (10:17)
[2017-05-18] MEDS ORDERED: AZITHROMYCIN 500MG/NS (PMX) 250 ML IVPB SCH (11:00)
--- NOTE | 2017-05-18 19:51 | PN ---
Date/Time of Note Date/Time of Note DATE: 05/18/17 TIME: 19:49 Assessment/Plan VTE Prophylaxis VTE Prophylaxis Intervention: heparin Lines/Catheters Urinary Cath still in place: No Assessment/Plan Chief Complaint/Hosp Course 1. 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 End stage renal disease Hostel Manager contacted 3. Diabetes Resume home regimen, check A1c 4. Leukocytosis likely secondary to pneumonia-resolved IV antibiotics 5. Hypertension Resume home meds 6. Debility secondary to comorbidities 7. Chronic wounds Follows with vascular Prophylaxis: Heparin Discharge planning: Anticipate DC home in 1-2 days Problems: Subjective 24 Hr Interval Summary Respiratory: shortness of breath Exam/Review of Systems Vital Signs Vitals Vital Signs Date Time Temp Pulse Resp B/P Pulse Ox O2 Delivery O2 Flow Rate FiO2 05/18/17 16:17 77 05/18/17 15:16 97.7 16 153/70 98 05/18/17 07:50 Nasal Cannula 4.0 Intake and Output 05/17/17 05/17/17 05/18/17 15:00 23:00 07:00 Intake Total 300 ml 300 ml 0 ml Output Total 4800 ml Balance 300 ml -4500 ml 0 ml Exam Constitutional: alert Respiratory: clear to auscultation Cardiovascular: regular rate and rhythm Gastrointestinal: soft, No distended Musculoskeletal: No nl extremities to inspection Results Result Diagram: 05/18/17 0606 05/18/17 0606 Results 24 hrs Laboratory Tests Test 05/17/17 20:58 05/18/17 00:58 05/18/17 04:42 05/18/17 06:06 Bedside Glucose 233 H 181 203 White Blood Count 10.0 # Red Blood Count 3.00 L Hemoglobin 8.6 L Hematocrit 29.3 L Mean Corpuscular Volume 97.7 Mean Corpuscular Hemoglobin 28.7 L Mean Corpuscular Hemoglobin Concent 29.4 L Red Cell Distribution Width 15.8 H Platelet Count 305 Mean Platelet Volume 10.2 Neutrophils % 77.4 H Lymphocytes % 10.8 L Monocytes % 8.2 Eosinophils % 0.6 Basophils % 0.9 Nucleated Red Blood Cells % 0.0 Neutrophils # 7.7 H Lymphocytes # 1.1 Monocytes # 0.8 Eosinophils # 0.1 Basophils # 0.1 Nucleated Red Blood Cells # 0.0 Sodium Level 141 Potassium Level 3.5 Chloride Level 94 L Carbon Dioxide Level 33 H Anion Gap 18 H Blood Urea Nitrogen 19 Creatinine 2.49 H Glucose Level 187 # Calcium Level 9.3 Magnesium Level 2.0 Test 05/18/17 08:59 05/18/17 12:52 05/18/17 17:00 Bedside Glucose 176 119 151 Medications Medications Current Medications Ondansetron HCl (Zofran Inj) 4 mg Q6H PRN IV NAUSEA AND/OR VOMITING; Start 05/17 at 14:00 Acetaminophen (Tylenol Tab) 650 mg Q6H PRN PO PAIN LEVEL 1-3 OR FEVER; Start at 14:00 Acetaminophen/ Hydrocodone Bitart ([place] (5/325)) 1 tab Q6H PRN PO MODERATE PAIN LEVEL 4-6; Start 05/17/17 at 14:00 Morphine Sulfate 2 mg 2 mg Q4H PRN IV SEVERE PAIN LEVEL 7-10 Last administered on 05/18/17 05:18; Admin Dose 2 MG; Start 05/17/17 at 14:00 Ceftriaxone Sodium 50 ml @ 100 mls/hr Q24H IVPB Last administered on 05/18/17 10:17; Admin Dose 100 MLS/HR; Start 05/18/17 at 10:00 Azithromycin (Zithromax 500mg/ NS (Pmx)) 250 ml @ 250 mls/hr Q24H IVPB Last administered on 05/18/17 11:09; Admin Dose 250 MLS/HR; Start 05/18/17 at 11:00 Amlodipine Besylate (Norvasc) 5 mg DAILY PO ; Start 05/17/17 at 15:00 Ascorbic Acid (Vitamin C) 500 mg DAILY PO ; Start 05/17/17 at 15:00 Aspirin (Halfprin) 81 mg DAILY PO ; Start 05/17/17 at 15:00 Gabapentin (Neurontin) 100 mg BID PO ; Start 05/17/17 at 15:00 Hydralazine HCl (Apresoline) 50 mg Q4 PO Last administered on 05/18/17 17:02; Admin Dose 50 MG; Start 05/17/17 at 15:00 Insulin Detemir (Levemir) 26 unit Q12H SC Last administered on 05/18/17 17:14; Admin Dose 26 UNIT; Start 05/18/17 at 06:00 Ondansetron HCl (Zofran Tab) 4 mg Q6H PRN PO NAUSEA AND/OR VOMITING; Start 05/17 at 14:30 Pantoprazole (Protonix Tab) 40 mg DAILY PO ; Start 05/17/17 at 15:00 Zinc Sulfate (Zinc Sulfate) 220 mg DAILY PO ; Start 05/17/17 at 15:00 Insulin Aspart (Novolog Insulin Pen) NOVOLOG *MILD* ALGORI... Q4 SC Last administered on 05/18/17 17:14; Admin Dose 1 UNIT; Start 05/17/17 at 17:00 Heparin Sodium (Porcine) (Heparin (5000 Units/0.5 ml)) 5,000 unit BID SC Last administered on 05/18/17 09:06; Admin Dose 5,000 UNIT; Start 05/17/17 at 15:00 Miscellaneous Information 1 ea NOTE XX ; Start 05/17/17 at 15:00 Glucose (Glutose) 15 gm Q15M PRN PO DECREASED GLUCOSE; Start 05/17/17 at 15:00 Glucose (Glutose) 22.5 gm Q15M PRN PO DECREASED GLUCOSE; Start 05/17/17 at 15:00 Dextrose (D50w Syringe) 25 ml Q15M PRN IV DECREASED GLUCOSE; Start 05/17/17 at 15:00 Dextrose (D50w Syringe) 50 ml Q15M PRN IV DECREASED GLUCOSE; Start 05/17/17 at 15:00 Glucagon (Glucagen) 1 mg Q15M PRN IM DECREASED GLUCOSE; Start 05/17/17 at 15:00 Glucose (Glutose) 15 gm Q15M PRN BUCCAL DECREASED GLUCOSE; Start 05/17/17 at 15: 00 [facility] This patient hoffman... PRN PRN XX WOUND CARE; Start 05/17/17 at 17:30 Hydralazine HCl (Apresoline) 10 mg Q6H PRN IV ELEVATED BLOOD PRESSURE Last administered on 05/18/17 00:07; Admin Dose 10 MG; Start 05/18/17 at 00:00 RADHA DHILLON May 18, 2017 19:50
[2017-05-18] MEDS ORDERED: DEXTROSE 5%-0.9% NACL 1,000 ML IV SCH (21:30)
[2017-05-19] VITALS (12 sets, daily range): BP systolic 123–175; BP diastolic 60–74; PULSE 70–86; RESP 15–21
[2017-05-19] MEDS: INSULIN ASPART [NOVOLOG] 3 ML PEN SC SCH ×9 (01:00→21:00)
[2017-05-19] MEDS: INSULIN DETEMIR [LEVEMIR] 3ML CART SC SCH (05:08)
[2017-05-19 07:10] LABS: ADD SCAN DIFF NO
[2017-05-19 07:30] LABS: BASOPHIL # 0.1 10^3/ul (0.0-0.1); BASOPHILS % 0.8 % (0.0-2.0); EOSINOPHILS # 0.2 10^3/ul (0.0-0.5); EOSINOPHILS % 1.6 % (0.0-7.0); HEMATOCRIT 30.1 % (37.0-47.0); HEMOGLOBIN 8.8 g/dl (12.0-16.0); LYMPHOCYTES # 1.6 10^3/ul (0.8-2.9); LYMPHOCYTES % 16.7 % (15.0-51.0); MEAN CORPUSCULAR HEMOGLOBIN 28.8 pg (29.0-33.0); MEAN CORPUSCULAR HGB CONC 29.2 g/dl (32.0-37.0); MEAN CORPUSCULAR VOLUME 98.4 fl (82.0-101.0); MEAN PLATELET VOLUME 10.1 fl (7.4-10.4); MONOCYTE # 1.1 10^3/ul (0.3-0.9); MONOCYTES % 10.8 % (0.0-11.0); NEUTROPHIL # 6.7 10^3/ul (1.6-7.5); NEUTROPHILS % 68.3 % (39.0-77.0); NUCLEATED RED BLOOD CELLS% 0.2 /100WBC (0.0-0.0); PLATELET COUNT 332 10^3/UL (140-415); RED BLOOD COUNT 3.06 10^6/ul (4.20-5.40); RED CELL DISTRIBUTION WIDTH 15.7 % (11.5-14.5); WHITE BLOOD COUNT 9.8 10^3/ul (4.8-10.8)
[2017-05-19 07:38] LABS: CALCIUM 9.1 mg/dl (8.4-10.2); CREATININE 2.76 mg/dl (0.44-1.00); POTASSIUM 3.1 mmol/L (3.5-5.1)
[2017-05-19] MEDS: CALCIUM ACETATE 667 MG CAP PO SCH ×3 (08:50→17:21)
[2017-05-19] MEDS: GABAPENTIN 100 MG CAP PO SCH ×2 (08:50→20:50)
[2017-05-19] MEDS: ASPIRIN (EC) 81 MG TAB PO SCH (08:50)
[2017-05-19] MEDS: ZINC SULFATE 220 MG CAP PO SCH (08:50)
[2017-05-19] MEDS: AMLODIPINE 5 MG TAB PO SCH ×2 (08:51→11:30)
[2017-05-19] MEDS: ASCORBIC ACID 500 MG TAB PO SCH (08:51)
[2017-05-19] MEDS: PANTOPRAZOLE (EC) 40 MG TAB PO SCH (08:52)
[2017-05-19] MEDS: CEFTRIAXONE 1 GM/50 ML (PMX) 50 ML IVPB SCH (10:23)
[2017-05-19] MEDS: HEPARIN 5,000 UNIT/0.5 ML VIAL SC SCH ×2 (10:26→20:52)
--- NOTE | 2017-05-19 10:37 | CONS ---
Date/Time of Note Date/Time of Note DATE: 05/19/17 TIME: 10:28 Assessment/Plan Assessment/Plan Chief Complaint/Hosp Course - ESRD on hemodialysis @ [facility] Dialysis - CAD / CHF / Volume overloaded - DM - Recent history of cellulitis / On Abx - Anemia - Obesity - High Cholesterol PLAN: She had dialysis yesterday & feels better Overnight her Blood sugar dropped & at thi spoint she is on IVF @ 30 Ml/hr Blood sugars has improved a lot - hold further IVF - plan for dialysis in AM - Needs PT/OT - EPOGEN to keep Hgb ~ 10 - Check Iron status THANK YOU VKenya YUSUF Problems: Consultation Date/Type/Reason Admit Date/Time May 17, 2017 at 12:21 Date of Consultation: May 19, 2017 Type of Consultation: NEPHROLOGY Reason for Consultation - ESRD on Hemodialysis Constitutional: requiring O2 Eyes: no complaints ENT: no complaints Respiratory: shortness of breath Cardiovascular: no complaints Gastrointestinal: no complaints Genitourinary: no complaints Musculoskeletal: no complaints Skin: no complaints Psychological: confusion Past Medical History Medical History: congestive heart failure, coronary artery disease, diabetes, hypertension, renal disease Past Surgical History Past Surgical Hx: other Family History Significant Family History: no pertinent family hx Social History Alcohol Use: none Smoking Status: Never smoker Drug Use: none Exam/Review of Systems Vital Signs Vitals Vital Signs Date Time Temp Pulse Resp B/P Pulse Ox O2 Delivery O2 Flow Rate FiO2 05/19/17 08:16 76 05/19/17 07:12 98.9 18 175/74 98 05/18/17 20:00 Nasal Cannula 4.0 Intake and Output 05/18/17 05/18/17 05/19/17 15:00 23:00 07:00 Intake Total 500 ml 700 ml 430 ml Output Total 4500 ml Balance -4000 ml 700 ml 430 ml Exam Constitutional: alert, oriented Psych: no complaints Head: normocephalic Eyes: nl conjunctiva Neck: jvd, supple Respiratory: crackles/rales Cardiovascular: edema, regular rate and rhythm, systolic murmur Gastrointestinal: soft Results Result Diagram: 05/19/17 0645 05/19/17 0645 Results 24 hrs Laboratory Tests Test 05/18/17 12:52 05/18/17 17:00 05/18/17 19:54 05/18/17 20:21 Bedside Glucose 119 151 37 *L 88 Test 05/18/17 20:58 05/18/17 21:48 05/18/17 23:10 05/19/17 01:34 Bedside Glucose 68 L 131 138 178 Test 05/19/17 04:46 05/19/17 06:45 05/19/17 07:55 05/19/17 08:46 Bedside Glucose 166 175 176 White Blood Count 9.8 Red Blood Count 3.06 L Hemoglobin 8.8 L Hematocrit 30.1 L Mean Corpuscular Volume 98.4 Mean Corpuscular Hemoglobin 28.8 L Mean Corpuscular Hemoglobin Concent 29.2 L Red Cell Distribution Width 15.7 H Platelet Count 332 Mean Platelet Volume 10.1 Neutrophils % 68.3 Lymphocytes % 16.7 Monocytes % 10.8 Eosinophils % 1.6 Basophils % 0.8 Nucleated Red Blood Cells % 0.2 H Neutrophils # 6.7 Lymphocytes # 1.6 Monocytes # 1.1 H Eosinophils # 0.2 Basophils # 0.1 Nucleated Red Blood Cells # 0.0 Sodium Level 135 Potassium Level 3.1 L Chloride Level 93 L Carbon Dioxide Level 32 H Anion Gap 13 Blood Urea Nitrogen 19 Creatinine 2.76 H Glucose Level 167 Calcium Level 9.1 Medications Medications Current Medications Ondansetron HCl (Zofran Inj) 4 mg Q6H PRN IV NAUSEA AND/OR VOMITING; Start 05/17 at 14:00 Acetaminophen (Tylenol Tab) 650 mg Q6H PRN PO PAIN LEVEL 1-3 OR FEVER; Start at 14:00 Acetaminophen/ Hydrocodone Bitart ([place] (5/325)) 1 tab Q6H PRN PO MODERATE PAIN LEVEL 4-6; Start 05/17/17 at 14:00 Morphine Sulfate 2 mg 2 mg Q4H PRN IV SEVERE PAIN LEVEL 7-10 Last administered on 05/18/17 05:18; Admin Dose 2 MG; Start 05/17/17 at 14:00 Ceftriaxone Sodium 50 ml @ 100 mls/hr Q24H IVPB Last administered on 05/18/17 10:17; Admin Dose 100 MLS/HR; Start 05/18/17 at 10:00 Azithromycin (Zithromax 500mg/ NS (Pmx)) 250 ml @ 250 mls/hr Q24H IVPB Last administered on 05/18/17 11:09; Admin Dose 250 MLS/HR; Start 05/18/17 at 11:00 Amlodipine Besylate (Norvasc) 5 mg DAILY PO Last administered on 05/19/17 08: 51; Admin Dose 5 MG; Start 05/17/17 at 15:00 Ascorbic Acid (Vitamin C) 500 mg DAILY PO Last administered on 05/19/17 08:51 ; Admin Dose 500 MG; Start 05/17/17 at 15:00 Aspirin (Halfprin) 81 mg DAILY PO Last administered on 05/19/17 08:50; Admin Dose 81 MG; Start 05/17/17 at 15:00 Gabapentin (Neurontin) 100 mg BID PO Last administered on 05/19/17 08:50; Admin Dose 100 MG; Start 05/17/17 at 15:00 Hydralazine HCl (Apresoline) 50 mg Q4 PO Last administered on 05/19/17 08:51; Admin Dose 50 MG; Start 05/17/17 at 15:00 Insulin Detemir (Levemir) 26 unit Q12H SC Last administered on 05/18/17 17:14; Admin Dose 26 UNIT; Start 05/18/17 at 06:00 Ondansetron HCl (Zofran Tab) 4 mg Q6H PRN PO NAUSEA AND/OR VOMITING; Start 05/17 at 14:30 Pantoprazole (Protonix Tab) 40 mg DAILY PO Last administered on 05/19/17 08:52 ; Admin Dose 40 MG; Start 05/17/17 at 15:00 Zinc Sulfate (Zinc Sulfate) 220 mg DAILY PO Last administered on 05/19/17 08: 50; Admin Dose 220 MG; Start 05/17/17 at 15:00 Insulin Aspart (Novolog Insulin Pen) NOVOLOG *MILD* ALGORI... Q4 SC Last administered on 05/19/17 08:55; Admin Dose 1 UNIT; Start 05/17/17 at 17:00 Heparin Sodium (Porcine) (Heparin (5000 Units/0.5 ml)) 5,000 unit BID SC Last administered on 05/18/17 21:17; Admin Dose 5,000 UNIT; Start 05/17/17 at 15:00 Miscellaneous Information 1 ea NOTE XX ; Start 05/17/17 at 15:00 Glucose (Glutose) 15 gm Q15M PRN PO DECREASED GLUCOSE; Start 05/17/17 at 15:00 Glucose (Glutose) 22.5 gm Q15M PRN PO DECREASED GLUCOSE; Start 05/17/17 at 15:00 Dextrose (D50w Syringe) 25 ml Q15M PRN IV DECREASED GLUCOSE; Start 05/17/17 at 15:00 Dextrose (D50w Syringe) 50 ml Q15M PRN IV DECREASED GLUCOSE Last administered on 05/18/17 20:01; Admin Dose 50 ML; Start 05/17/17 at 15:00 Glucagon (Glucagen) 1 mg Q15M PRN IM DECREASED GLUCOSE; Start 05/17/17 at 15:00 Glucose (Glutose) 15 gm Q15M PRN BUCCAL DECREASED GLUCOSE; Start 05/17/17 at 15: 00 Miscellaneous Information (Pending [facility]yl Order For Wound Care) This patient hoffman... PRN PRN XX WOUND CARE; Start 05/17/17 at 17:30 Hydralazine HCl 10 mg 10 mg Q6H PRN IV ELEVATED BLOOD PRESSURE Last administered on 05/18/17 00:07; Admin Dose 10 MG; Start 05/18/17 at 00:00 Dextrose/Sodium Chloride (D5-NS) 1,000 ml @ 30 mls/hr Q24H IV Last administered on 05/18/17 21:18; Admin Dose 30 MLS/HR; Start 05/18/17 at 21:30 ANIBAL ALMANZAR MD May 19, 2017 10:36
[2017-05-19] MEDS ORDERED: POTASSIUM CHLORIDE 250 ML IVPB ONE (11:00)
[2017-05-19] MEDS ORDERED: AMLODIPINE 5 MG TAB PO ONE (11:00)
[2017-05-19] MEDS ORDERED: AMLO5TAB4 PO (11:03)
[2017-05-19] MEDS ORDERED: LEVO750T25 PO (11:03)
--- NOTE | 2017-05-19 11:43 | PN ---
Date/Time of Note Date/Time of Note DATE: 05/19/17 TIME: 11:12 Assessment/Plan VTE Prophylaxis VTE Prophylaxis Intervention: heparin Lines/Catheters IV Catheter Type (from Nrsg): PICC Line Central line still needed: Yes Urinary Cath still in place: No Assessment/Plan Assessment/Plan 1. Acute on chronic respiratory distress secondary to volume overload and possible pneumonia: improved / patient still on 5L via [place] 2. End stage renal disease on HD 3. Diabetes type 2 4. Leukocytosis likely secondary to pneumonia-resolved / IV antibiotics 5. Hypertension: suboptimal control 6. Debility secondary to comorbidities 7. Chronic wounds: Follows with vascular outpatient 8. Severe peripheral neuropathy 2/2 DM and ESRD PLAN: * Patient is improved but he still requiring high flow oxygen, she is not sure of home oxygen dose, but she is sure she is not on 5 L at [facility]. * Continue hemodialysis per nephrology, continue antibiotics * Start Lyrica for neuropathic pain, podiatry consultation, continue wound care per recommendations * De-escalate insulin therapy for hyperglycemia, and continue adjustments as indicated * Patient was on long-acting MS Contin every 3 hours as needed at shelter, this is on hold, we will try Lyrica today, and resume low-dose MS Contin tomorrow if no improvement in pain * Wean off oxygen to baseline * Continue supportive care Prophylaxis: Heparin Subjective 24 Hr Interval Summary Free Text/Dictation patient reports significant LLE painn, she has unstageable L heel ulcer she tells me she's chronically non ambulant and is on O2 at [place] Exam/Review of Systems Vital Signs Vitals Vital Signs Date Time Temp Pulse Resp B/P Pulse Ox O2 Delivery O2 Flow Rate FiO2 05/19/17 08:16 76 05/19/17 07:12 98.9 18 175/74 98 05/18/17 20:00 Nasal Cannula 4.0 Intake and Output 05/18/17 05/18/17 05/19/17 14:59 22:59 06:59 Intake Total 500 ml 700 ml 430 ml Output Total 4500 ml Balance -4000 ml 700 ml 430 ml Exam Constitutional: alert, distress, obese Psych: anxiety Head: normocephalic Eyes: PERRL, No icteric ENMT: mucosa pink and moist Neck: supple Respiratory: diminished breath sounds, No crackles/rales, No labored breathing, No wheezing Cardiovascular: regular rate and rhythm, No murmurs/extra sounds Gastrointestinal: bowel sounds, non-tender, soft Musculoskeletal: No nl extremities to inspection Extremities: other (unstageable L heel), No edema Neurological: nl mental status Results Result Diagram: 05/19/1745 05/19/1745 Results 24 hrs Laboratory Tests Test 05/18/17 12:52 05/18/17 17:00 05/18/17 19:54 05/18/17 20:21 Bedside Glucose 119 151 37 *L 88 Test 05/18/17 20:58 05/18/17 21:48 05/18/17 23:10 05/19/17 01:34 Bedside Glucose 68 L 131 138 178 Test 05/19/17 04:46 05/19/17 06:45 05/19/17 07:55 05/19/17 08:46 Bedside Glucose 166 175 176 White Blood Count 9.8 Red Blood Count 3.06 L Hemoglobin 8.8 L Hematocrit 30.1 L Mean Corpuscular Volume 98.4 Mean Corpuscular Hemoglobin 28.8 L Mean Corpuscular Hemoglobin Concent 29.2 L Red Cell Distribution Width 15.7 H Platelet Count 332 Mean Platelet Volume 10.1 Neutrophils % 68.3 Lymphocytes % 16.7 Monocytes % 10.8 Eosinophils % 1.6 Basophils % 0.8 Nucleated Red Blood Cells % 0.2 H Neutrophils # 6.7 Lymphocytes # 1.6 Monocytes # 1.1 H Eosinophils # 0.2 Basophils # 0.1 Nucleated Red Blood Cells # 0.0 Sodium Level 135 Potassium Level 3.1 L Chloride Level 93 L Carbon Dioxide Level 32 H Anion Gap 13 Blood Urea Nitrogen 19 Creatinine 2.76 H Glucose Level 167 Calcium Level 9.1 Medications Medications Current Medications Ondansetron HCl (Zofran Inj) 4 mg Q6H PRN IV NAUSEA AND/OR VOMITING; Start 05/17 at 14:00 Acetaminophen (Tylenol Tab) 650 mg Q6H PRN PO PAIN LEVEL 1-3 OR FEVER Last administered on 05/19/17t 10:32; Admin Dose 650 MG; Start 05/17/17 at 14:00 Acetaminophen/ Hydrocodone Bitart ([place] (5/325)) 1 tab Q6H PRN PO MODERATE PAIN LEVEL 4-6; Start 05/17/17 at 14:00 Morphine Sulfate 2 mg 2 mg Q4H PRN IV SEVERE PAIN LEVEL 7-10 Last administered on 05/18/17 05:18; Admin Dose 2 MG; Start 05/17/17 at 14:00 Ceftriaxone Sodium 50 ml @ 100 mls/hr Q24H IVPB Last administered on 10:23; Admin Dose 100 MLS/HR; Start 05/18/17 at 10:00 Azithromycin (Zithromax 500mg/ NS (Pmx)) 250 ml @ 250 mls/hr Q24H IVPB Last administered on 05/18/17 11:09; Admin Dose 250 MLS/HR; Start 05/18/17 at 11:00 Amlodipine Besylate (Norvasc) 5 mg DAILY PO Last administered on 05/19/17 08: 51; Admin Dose 5 MG; Start 05/17/17 at 15:00 Ascorbic Acid (Vitamin C) 500 mg DAILY PO Last administered on 05/19/17 08:51 ; Admin Dose 500 MG; Start 05/17/17 at 15:00 Aspirin (Halfprin) 81 mg DAILY PO Last administered on 05/19/17 08:50; Admin Dose 81 MG; Start 05/17/17 at 15:00 Gabapentin (Neurontin) 100 mg BID PO Last administered on 05/19/17 08:50; Admin Dose 100 MG; Start 05/17/17 at 15:00 Hydralazine HCl (Apresoline) 50 mg Q4 PO Last administered on 05/19/17 08:51; Admin Dose 50 MG; Start 05/17/17 at 15:00 Insulin Detemir (Levemir) 26 unit Q12H SC Last administered on 05/18/17 17:14; Admin Dose 26 UNIT; Start 05/18/17 at 06:00 Ondansetron HCl (Zofran Tab) 4 mg Q6H PRN PO NAUSEA AND/OR VOMITING; Start 05/17 at 14:30 Pantoprazole (Protonix Tab) 40 mg DAILY PO Last administered on 05/19/17 08:52 ; Admin Dose 40 MG; Start 05/17/17 at 15:00 Zinc Sulfate (Zinc Sulfate) 220 mg DAILY PO Last administered on 05/19/17 08: 50; Admin Dose 220 MG; Start 05/17/17 at 15:00 Insulin Aspart (Novolog Insulin Pen) NOVOLOG *MILD* ALGORI... Q4 SC Last administered on 05/19/17 08:55; Admin Dose 1 UNIT; Start 05/17/17 at 17:00 Heparin Sodium (Porcine) (Heparin (5000 Units/0.5 ml)) 5,000 unit BID SC Last administered on 05/19/17 10:26; Admin Dose 5,000 UNIT; Start 05/17/17 at 15:00 Miscellaneous Information 1 ea NOTE XX ; Start 05/17/17 at 15:00 Glucose (Glutose) 15 gm Q15M PRN PO DECREASED GLUCOSE; Start 05/17/17 at 15:00 Glucose (Glutose) 22.5 gm Q15M PRN PO DECREASED GLUCOSE; Start 05/17/17 at 15:00 Dextrose (D50w Syringe) 25 ml Q15M PRN IV DECREASED GLUCOSE; Start 05/17/17 at 15:00 Dextrose (D50w Syringe) 50 ml Q15M PRN IV DECREASED GLUCOSE Last administered on 05/18/17 20:01; Admin Dose 50 ML; Start 05/17/17 at 15:00 Glucagon (Glucagen) 1 mg Q15M PRN IM DECREASED GLUCOSE; Start 05/17/17 at 15:00 Glucose (Glutose) 15 gm Q15M PRN BUCCAL DECREASED GLUCOSE; Start 05/17/17 at 15: 00 Miscellaneous Information (Pending [facility] Order For Wound Care) This patient hoffman... PRN PRN XX WOUND CARE; Start 05/17/17 at 17:30 Hydralazine HCl 10 mg 10 mg Q6H PRN IV ELEVATED BLOOD PRESSURE Last administered on 05/18/17 00:07; Admin Dose 10 MG; Start 05/18/17 at 00:00 Dextrose/Sodium Chloride (D5-NS) 1,000 ml @ 30 mls/hr Q24H IV Last administered on 05/18/17 21:18; Admin Dose 30 MLS/HR; Start 05/18/17 at 21:30 Pregabalin 75 mg 75 mg BID PO ; Start 05/19/17 at 11:00 Potassium Chloride (KCl 40 MEQ/250 ML NS) 250 ml @ 62.5 mls/hr ONCE ONCE IVPB ; Start 05/19/17 at 11:00; Stop 05/19/17 at 14:59 Lisinopril (Zestril) 40 mg DAILY PO ; Start 05/19/17 at 11:30; Status UNV Procedures Procedures PROCEDURE: XR Chest. CLINICAL INDICATION: Dyspnea TECHNIQUE: Single frontal chest x-ray. COMPARISON: 04/20/2017 FINDINGS: Right-sided Perma-Cath and left-sided PICC line remain in place. There is moderate cardiomegaly and pulmonary vascular congestion/edema, grossly unchanged. There is question of focally increased opacity at the left lung base. Hazy bibasilar pulmonary opacities likely represent atelectasis and/or small pleural effusions. The osseous structures are remarkable for degenerative spondylosis of the spine. IMPRESSION: 1. Grossly stable moderate cardiomegaly and moderate pulmonary vascular congestion/edema. 2. There is question of focally increased opacity at the left lung base, possibly indicating developing pneumonia. 3. Bibasilar atelectasis and/or small pleural effusions are grossly stable. 4. Lines and tubes remain in place. RPTAT: HDWR .Adrian Riley MD, MD Date Time Electronically viewed and signed by .Adrian Riley MD, MD on 05/17/2017 08: 55 .R/ CC: DREA LOMBARDI MD, [place] M. May 19, 2017 11:22
[2017-05-19] MEDS: LEVOFLOXACIN 750MG/D5W (PMX) 150 ML IVPB SCH (13:09)
[2017-05-19] MEDS: LISINOPRIL 20 MG TAB PO SCH (13:10)
[2017-05-19] MEDS: PREGABALIN 75 MG CAP PO SCH ×2 (13:11→20:55)
[2017-05-19] MEDS: morphine 2 MG INJ IV PRN (17:21)
[2017-05-20] VITALS (20 sets, daily range): BP systolic 122–149; BP diastolic 57–72; PULSE 72–94; RESP 18–20
[2017-05-20] MEDS: INSULIN ASPART [NOVOLOG] 3 ML PEN SC SCH ×6 (02:10→17:52)
[2017-05-20] MEDS: ZINC SULFATE 220 MG CAP PO SCH (08:37)
[2017-05-20] MEDS: ASPIRIN (EC) 81 MG TAB PO SCH (08:37)
[2017-05-20] MEDS: CALCIUM ACETATE 667 MG CAP PO SCH ×3 (08:37→17:49)
[2017-05-20] MEDS: GABAPENTIN 100 MG CAP PO SCH ×2 (08:37→22:06)
[2017-05-20] MEDS: ASCORBIC ACID 500 MG TAB PO SCH (08:37)
[2017-05-20] MEDS: PANTOPRAZOLE (EC) 40 MG TAB PO SCH (08:37)
[2017-05-20] MEDS: HEPARIN 5,000 UNIT/0.5 ML VIAL SC SCH ×2 (08:40→22:09)
[2017-05-20] MEDS: PREGABALIN 75 MG CAP PO SCH ×3 (08:44→22:06)
[2017-05-20] MEDS: AMLODIPINE 5 MG TAB PO SCH (08:44)
[2017-05-20] MEDS: LISINOPRIL 20 MG TAB PO SCH (08:44)
[2017-05-20] MEDS ORDERED: INSULIN DETEMIR [LEVEMIR] 3ML CART SC SCH (09:00)
[2017-05-20] MEDS: Insulin NOVOLOG SS MILD Algorithm (SS with meals and bedtime) SC SCH ×3 (13:20→22:30)
[2017-05-20] MEDS: COLLAGENASE 30 GM TUBE TOP SCH (14:52)
--- NOTE | 2017-05-20 15:09 | RADRPT ---
PROCEDURE: XR Chest. CLINICAL INDICATION: Shortness of breath. TECHNIQUE: Single frontal view. COMPARISON: 05/17/2017. FINDINGS: There is left basilar atelectasis or pneumonia, slightly improved. The lungs are otherwise clear. The heart size is normal. A tunneled right internal jugular vein dialysis catheter is in satisfactor y position. There is no pleural effusion. There is no pneumothorax. IMPRESSION: 1. Slightly improved appearance of left basilar atelectasis or pneumonia. 2. No other change from 05/17/2017. RPTAT: QQ .Roe Marcelino MD, MD Date Time Electronically viewed and signed by .Roe Marcelino MD, MD on 05/20/2017 15:09 .R/
[2017-05-20] MEDS ORDERED: INSULIN ASPART [NOVOLOG] 3 ML PEN SC SCH (17:25)
--- NOTE | 2017-05-20 20:33 | PN ---
Date/Time of Note Date/Time of Note DATE: 05/20/17 TIME: 20:28 Assessment/Plan VTE Prophylaxis VTE Prophylaxis Intervention: heparin Lines/Catheters IV Catheter Type (from Nrsg): PICC Line Central line still needed: Yes Urinary Cath still in place: No Assessment/Plan Assessment/Plan . Acute on chronic respiratory distress secondary to volume overload and possible pneumonia: improved / patient still on 5L via [place] 2. End stage renal disease on HD 3. Diabetes type 2 4. Leukocytosis likely secondary to pneumonia-resolved / IV antibiotics 5. Hypertension: suboptimal control 6. Debility secondary to comorbidities 7. Chronic wounds: Follows with vascular outpatient 8. Severe peripheral neuropathy 2/2 DM and ESRD PLAN: * Patient is improved down to 2-3 L, * Continue hemodialysis per nephrology, continue antibiotics * Continue Lyrica for neuropathic pain, continue wound care per recommendations * Patient was on long-acting MS Contin every 3 hours as needed at shelter, this is on hold, so far patient seems comfortable * Continue supportive care, find alternative placement, patient is stable for d/ c once found. Prophylaxis: Heparin Subjective 24 Hr Interval Summary Free Text/Dictation feels better respiratory thorne does not want to go back to the SNF she came from Exam/Review of Systems Vital Signs Vitals Vital Signs Date Time Temp Pulse Resp B/P Pulse Ox O2 Delivery O2 Flow Rate FiO2 05/20/17 19:35 99.3 76 18 122/57 98 05/20/17 07:47 Nasal Cannula 3.0 Exam Constitutional: alert, no distress, obese Psych: no anxiety Head: normocephalic Eyes: PERRL, No icteric ENMT: mucosa pink and moist Neck: supple Respiratory: diminished breath sounds, No crackles/rales, No labored breathing, No wheezing Cardiovascular: regular rate and rhythm, No murmurs/extra sounds Gastrointestinal: bowel sounds, non-tender, soft Musculoskeletal: No nl extremities to inspection Extremities: other (unstageable L heel), No edema Neurological: nl mental status Results Result Diagram: 05/19/17 0645 05/19/17 0645 Results 24 hrs Laboratory Tests Test 05/19/17 21:00 05/20/17 02:06 05/20/17 06:31 05/20/17 08:30 Bedside Glucose 126 164 188 174 Test 05/20/17 12:22 05/20/17 17:43 Bedside Glucose 184 287 H Medications Medications Current Medications Ondansetron HCl (Zofran Inj) 4 mg Q6H PRN IV NAUSEA AND/OR VOMITING; Start 05/17 at 14:00 Acetaminophen (Tylenol Tab) 650 mg Q6H PRN PO PAIN LEVEL 1-3 OR FEVER Last administered on 05/19/17 10:32; Admin Dose 650 MG; Start 05/17/17 at 14:00 Acetaminophen/ Hydrocodone Bitart ([place] (5/325)) 1 tab Q6H PRN PO MODERATE PAIN LEVEL 4-6; Start 05/17/17 at 14:00 Morphine Sulfate (morphine) 2 mg Q4H PRN IV SEVERE PAIN LEVEL 7-10 Last administered on 05/19/17 17:21; Admin Dose 2 MG; Start 05/17/17 at 14:00 Ascorbic Acid (Vitamin C) 500 mg DAILY PO Last administered on 05/20/17 08:37 ; Admin Dose 500 MG; Start 05/17/17 at 15:00 Aspirin (Halfprin) 81 mg DAILY PO Last administered on 05/20/17 08:37; Admin Dose 81 MG; Start 05/17/17 at 15:00 Gabapentin (Neurontin) 100 mg BID PO Last administered on 05/20/17 08:37; Admin Dose 100 MG; Start 05/17/17 at 15:00 Hydralazine HCl (Apresoline) 50 mg Q4 PO Last administered on 05/20/17 17:49; Admin Dose 50 MG; Start 05/17/17 at 15:00 Ondansetron HCl (Zofran Tab) 4 mg Q6H PRN PO NAUSEA AND/OR VOMITING; Start 05/17 at 14:30 Pantoprazole (Protonix Tab) 40 mg DAILY PO Last administered on 05/20/17 08:37 ; Admin Dose 40 MG; Start 05/17/17 at 15:00 Zinc Sulfate (Zinc Sulfate) 220 mg DAILY PO Last administered on 05/20/17 08: 37; Admin Dose 220 MG; Start 05/17/17 at 15:00 Heparin Sodium (Porcine) (Heparin (5000 Units/0.5 ml)) 5,000 unit BID SC Last administered on 05/20/17 08:40; Admin Dose 5,000 UNIT; Start 05/17/17 at 15:00 Miscellaneous Information 1 ea NOTE XX ; Start 05/17/17 at 15:00 Glucose (Glutose) 15 gm Q15M PRN PO DECREASED GLUCOSE; Start 05/17/17 at 15:00 Glucose (Glutose) 22.5 gm Q15M PRN PO DECREASED GLUCOSE; Start 05/17/17 at 15:00 Dextrose (D50w Syringe) 25 ml Q15M PRN IV DECREASED GLUCOSE; Start 05/17/17 at 15:00 Dextrose (D50w Syringe) 50 ml Q15M PRN IV DECREASED GLUCOSE Last administered on 05/18/17 20:01; Admin Dose 50 ML; Start 05/17/17 at 15:00 Glucagon (Glucagen) 1 mg Q15M PRN IM DECREASED GLUCOSE; Start 05/17/17 at 15:00 Glucose (Glutose) 15 gm Q15M PRN BUCCAL DECREASED GLUCOSE; Start 05/17/17 at 15: 00 Miscellaneous Information (Pending [facility] Order For Wound Care) This patient hoffman... PRN PRN XX WOUND CARE; Start 05/17/17 at 17:30 Hydralazine HCl (Apresoline) 10 mg Q6H PRN IV ELEVATED BLOOD PRESSURE Last administered on 05/18/17 00:07; Admin Dose 10 MG; Start 05/18/17 at 00:00 Pregabalin (Lyrica) 75 mg BID PO Last administered on 05/19/17 13:11; Admin Dose 75 MG; Start 05/19/17 at 11:00 Lisinopril (Zestril) 40 mg DAILY PO Last administered on 05/19/17 13:10; Admin Dose 40 MG; Start 05/19/17 at 11:30 Insulin Detemir 26 unit 26 unit DAILY SC Last administered on 05/20/17 08:40; Admin Dose 26 UNIT; Start 05/20/17 at 09:00 Levofloxacin/ Dextrose (Levaquin 750 Mg/ D5W 150 ml (Pmx)) 150 ml @ 100 mls/hr Q48H IVPB Last administered on 05/19/17 13:09; Admin Dose 100 MLS/HR; Start at 12:00 Amlodipine Besylate (Norvasc) 10 mg DAILY PO ; Start 05/19/17 at 11:30 Diagnostic Test (Pha) (Accu-Chek) 1 ea 02 XX ; Start 05/21/17 at 02:00 Collagenase (Santyl) 1 applic DAILY TOP Last administered on 05/20/17t 14:52; Admin Dose 1 APPLIC; Start 05/20/17 at 15:00 Procedures Procedures PROCEDURE: XR Chest. CLINICAL INDICATION: Shortness of breath. TECHNIQUE: Single frontal view. COMPARISON: 05/17/2017. FINDINGS: There is left basilar atelectasis or pneumonia, slightly improved. The lungs are otherwise clear. The heart size is normal. A tunneled right internal jugular vein dialysis catheter is in satisfactory position. There is no pleural effusion. There is no pneumothorax. IMPRESSION: 1. Slightly improved appearance of left basilar atelectasis or pneumonia. 2. No other change from 05/17/2017. RPTAT: QQ .Roe Marcelino MD, MD Date Time Electronically viewed and signed by .Roe Marcelino MD, on 05/20/2017 15:09 .R/ CC: RICHARD GUERRERO B[place]AT[place] M. May 20, 2017 20:32
[2017-05-20] MEDS: EPOETIN 4000 UNITS/1 ML INJ (ESRD) SC SCH (22:18)
[2017-05-21] VITALS (11 sets, daily range): BP systolic 122–152; BP diastolic 50–68; PULSE 75–77; RESP 17–20
[2017-05-21] MEDS: ACCUCHECK AT 2AM (Patients on SS coverage) XX SCH ×2 (01:46→22:59)
[2017-05-21] MEDS: ZOLPIDEM 5 MG TAB PO PRN (02:08)
[2017-05-21] MEDS: PREGABALIN 75 MG CAP PO SCH ×2 (08:12→21:00)
[2017-05-21] MEDS: Insulin NOVOLOG SS MILD Algorithm (SS with meals and bedtime) SC SCH ×4 (08:14→22:17)
[2017-05-21] MEDS: INSULIN DETEMIR [LEVEMIR] 3ML CART SC SCH (08:16)
[2017-05-21] MEDS: INSULIN ASPART [NOVOLOG] 3 ML PEN SC SCH ×3 (08:16→17:55)
[2017-05-21] MEDS: CALCIUM ACETATE 667 MG CAP PO SCH ×3 (08:33→17:30)
[2017-05-21] MEDS: ZINC SULFATE 220 MG CAP PO SCH (08:34)
[2017-05-21] MEDS: PANTOPRAZOLE (EC) 40 MG TAB PO SCH (08:34)
[2017-05-21] MEDS: GABAPENTIN 100 MG CAP PO SCH ×2 (08:34→22:07)
[2017-05-21] MEDS: ASPIRIN (EC) 81 MG TAB PO SCH (08:34)
[2017-05-21] MEDS: ASCORBIC ACID 500 MG TAB PO SCH (08:34)
[2017-05-21] MEDS: HEPARIN 5,000 UNIT/0.5 ML VIAL SC SCH ×2 (08:35→22:07)
[2017-05-21] MEDS: LISINOPRIL 20 MG TAB PO SCH (08:36)
[2017-05-21] MEDS: AMLODIPINE 5 MG TAB PO SCH (08:36)
[2017-05-21 09:35] LABS: CALCIUM 9.4 mg/dl (8.4-10.2); CREATININE 3.21 mg/dl (0.44-1.00); MAGNESIUM 1.9 mg/dl (1.7-2.5); POTASSIUM 3.5 mmol/L (3.5-5.1)
[2017-05-21] MEDS: COLLAGENASE 30 GM TUBE TOP SCH (11:53)
[2017-05-21] MEDS: LEVOFLOXACIN 750MG/D5W (PMX) 150 ML IVPB SCH (13:00)
--- NOTE | 2017-05-21 14:51 | CONS ---
Date/Time of Note Date/Time of Note DATE: 05/21/17 TIME: 14:49 Assessment/Plan Assessment/Plan Chief Complaint/Hosp Course - ESRD on hemodialysis @ [facility] Dialysis - CAD / CHF / Volume overloaded - DM - Recent history of cellulitis / On Abx - Anemia - Obesity - High Cholesterol PLAN: - plan for dialysis in AM - Needs PT/OT - EPOGEN to keep Hgb ~ 10 - Check Iron status - IV Abx THANK YOU V. MUCH Problems: Consultation Date/Type/Reason Admit Date/Time May 17, 2017 at 12:21 Initial Consult Date 05/19/17 Type of Consultation: NEPHROLOGY Reason for Consultation ESRD 24 HR Interval Summary Constitutional: improved, no complaints Exam/Review of Systems Vital Signs Vitals Vital Signs Date Time Temp Pulse Resp B/P Pulse Ox O2 Delivery O2 Flow Rate FiO2 05/21/17 12:20 2.0 05/21/17 12:04 76 05/21/17 11:18 98.0 18 126/50 97 05/21/17 07:38 Nasal Cannula Intake and Output 05/20/17 05/20/17 05/21/17 15:00 23:00 07:00 Intake Total 200 ml 850 ml 200 ml Output Total 300 ml Balance -100 ml 850 ml 200 ml Exam Constitutional: alert, oriented Psych: no complaints Neck: jvd Respiratory: crackles/rales Cardiovascular: edema, regular rate and rhythm Gastrointestinal: soft Results Result Diagram: 05/19/17 0645 05/21/17 0754 Results 24 hrs Laboratory Tests Test 05/20/17 17:43 05/20/17 22:29 05/21/17 01:45 05/21/17 07:54 Bedside Glucose 287 H 85 151 Sodium Level 129 L Potassium Level 3.5 Chloride Level 92 L Carbon Dioxide Level 32 H Anion Gap 9 Blood Urea Nitrogen 23 H Creatinine 3.21 H Glucose Level 175 Calcium Level 9.4 Magnesium Level 1.9 Test 05/21/17 08:08 05/21/17 12:13 Bedside Glucose 178 173 Medications Medications Current Medications Ondansetron HCl (Zofran Inj) 4 mg Q6H PRN IV NAUSEA AND/OR VOMITING; Start 05/17 at 14:00 Acetaminophen (Tylenol Tab) 650 mg Q6H PRN PO PAIN LEVEL 1-3 OR FEVER Last administered on 05/19/17 10:32; Admin Dose 650 MG; Start 05/17/17 at 14:00 Acetaminophen/ Hydrocodone Bitart ([place] (5/325)) 1 tab Q6H PRN PO MODERATE PAIN LEVEL 4-6; Start 05/17/17 at 14:00 Morphine Sulfate (morphine) 2 mg Q4H PRN IV SEVERE PAIN LEVEL 7-10 Last administered on 05/19/17 17:21; Admin Dose 2 MG; Start 05/17/17 at 14:00 Ascorbic Acid (Vitamin C) 500 mg DAILY PO Last administered on 05/21/17 08:34 ; Admin Dose 500 MG; Start 05/17/17 at 15:00 Aspirin (Halfprin) 81 mg DAILY PO Last administered on 05/21/17 08:34; Admin Dose 81 MG; Start 05/17/17 at 15:00 Gabapentin (Neurontin) 100 mg BID PO Last administered on 05/21/17 08:34; Admin Dose 100 MG; Start 05/17/17 at 15:00 Hydralazine HCl (Apresoline) 50 mg Q4 PO Last administered on 05/21/17 12:48; Admin Dose 50 MG; Start 05/17/17 at 15:00 Ondansetron HCl (Zofran Tab) 4 mg Q6H PRN PO NAUSEA AND/OR VOMITING; Start 05/17 at 14:30 Pantoprazole (Protonix Tab) 40 mg DAILY PO Last administered on 05/21/17 08:34 ; Admin Dose 40 MG; Start 05/17/17 at 15:00 Zinc Sulfate (Zinc Sulfate) 220 mg DAILY PO Last administered on 05/21/17 08: 34; Admin Dose 220 MG; Start 05/17/17 at 15:00 Heparin Sodium (Porcine) (Heparin (5000 Units/0.5 ml)) 5,000 unit BID SC Last administered on 05/21/17 08:35; Admin Dose 5,000 UNIT; Start 05/17/17 at 15:00 Miscellaneous Information 1 ea NOTE XX ; Start 05/17/17 at 15:00 Glucose (Glutose) 15 gm Q15M PRN PO DECREASED GLUCOSE; Start 05/17/17 at 15:00 Glucose (Glutose) 22.5 gm Q15M PRN PO DECREASED GLUCOSE; Start 05/17/17 at 15:00 Dextrose (D50w Syringe) 25 ml Q15M PRN IV DECREASED GLUCOSE; Start 05/17/17 at 15:00 Dextrose (D50w Syringe) 50 ml Q15M PRN IV DECREASED GLUCOSE Last administered on 05/18/17 20:01; Admin Dose 50 ML; Start 05/17/17 at 15:00 Glucagon (Glucagen) 1 mg Q15M PRN IM DECREASED GLUCOSE; Start 05/17/17 at 15:00 Glucose (Glutose) 15 gm Q15M PRN BUCCAL DECREASED GLUCOSE; Start 05/17/17 at 15: 00 Miscellaneous Information (Pending Santyl Order For Wound Care) This patient hoffman... PRN PRN XX WOUND CARE; Start 05/17/17 at 17:30 Hydralazine HCl (Apresoline) 10 mg Q6H PRN IV ELEVATED BLOOD PRESSURE Last administered on 05/18/17 00:07; Admin Dose 10 MG; Start 05/18/17 at 00:00 Pregabalin (Lyrica) 75 mg BID PO Last administered on 05/19/17 13:11; Admin Dose 75 MG; Start 05/19/17 at 11:00 Lisinopril 40 mg 40 mg DAILY PO Last administered on 05/21/17 08:36; Admin Dose 40 MG; Start 05/19/17 at 11:30 Levofloxacin/ Dextrose (Levaquin 750 Mg/ D5W 150 ml (Pmx)) 150 ml @ 100 mls/hr Q48H IVPB Last administered on 05/21/17 13:00; Admin Dose 100 MLS/HR; Start at 12:00 Amlodipine Besylate (Norvasc) 10 mg DAILY PO Last administered on 05/21/17 08: 36; Admin Dose 10 MG; Start 05/19/17 at 11:30 Diagnostic Test (Pha) (Accu-Chek) 1 ea 02 XX Last administered on 05/21/17 01: 46; Admin Dose 1 EA; Start 05/21/17 at 02:00 Collagenase (Santyl) 1 applic DAILY TOP Last administered on 05/21/17 11:53; Admin Dose 1 APPLIC; Start 05/20/17 at 15:00 Insulin Detemir (Levemir) 28 unit DAILY SC Last administered on 05/21/17 08:16 ; Admin Dose 28 UNIT; Start 05/21/17 at 09:00 Zolpidem Tartrate (Ambien) 5 mg HS PRN PO INSOMNIA Last administered on 02:08; Admin Dose 5 MG; Start 05/21/17 at 02:00 ANIBAL ALMANZAR MD May 21, 2017 14:50
[2017-05-21] MEDS: DOCUSATE SODIUM 100 MG CAP PO SCH (22:54)
[2017-05-22] VITALS (23 sets, daily range): BP systolic 98–142; BP diastolic 56–87; PULSE 68–88; RESP 18–20
[2017-05-22] MEDS: Insulin NOVOLOG SS MILD Algorithm (SS with meals and bedtime) SC SCH ×4 (07:58→21:00)
[2017-05-22] MEDS: INSULIN ASPART [NOVOLOG] 3 ML PEN SC SCH ×3 (07:59→17:51)
[2017-05-22] MEDS: ASPIRIN (EC) 81 MG TAB PO SCH (08:08)
[2017-05-22] MEDS: ASCORBIC ACID 500 MG TAB PO SCH (08:08)
[2017-05-22] MEDS: AMLODIPINE 5 MG TAB PO SCH (08:08)
[2017-05-22] MEDS: BISACODYL (EC) 5 MG TAB PO SCH (08:08)
[2017-05-22] MEDS: GABAPENTIN 100 MG CAP PO SCH ×2 (08:08→21:24)
[2017-05-22] MEDS: ZINC SULFATE 220 MG CAP PO SCH (08:09)
[2017-05-22] MEDS: COLLAGENASE 30 GM TUBE TOP SCH (08:09)
[2017-05-22] MEDS: DOCUSATE SODIUM 100 MG CAP PO SCH (08:09)
[2017-05-22] MEDS: PANTOPRAZOLE (EC) 40 MG TAB PO SCH (08:09)
[2017-05-22] MEDS: CALCIUM ACETATE 667 MG CAP PO SCH ×3 (08:09→17:47)
[2017-05-22] MEDS: LISINOPRIL 20 MG TAB PO SCH (08:09)
[2017-05-22] MEDS: PREGABALIN 75 MG CAP PO SCH ×2 (08:11→21:00)
[2017-05-22] MEDS: HEPARIN 5,000 UNIT/0.5 ML VIAL SC SCH ×2 (08:13→21:30)
[2017-05-22] MEDS: INSULIN DETEMIR [LEVEMIR] 3ML CART SC SCH (08:14)
[2017-05-22 08:41] LABS: CALCIUM 9.3 mg/dl (8.4-10.2); CREATININE 4.34 mg/dl (0.44-1.00); POTASSIUM 3.9 mmol/L (3.5-5.1)
--- NOTE | 2017-05-22 11:40 | PN ---
Date/Time of Note Date/Time of Note DATE: 05/22/17 TIME: 11:38 Assessment/Plan VTE Prophylaxis VTE Prophylaxis Intervention: heparin Lines/Catheters IV Catheter Type (from Nrs): PICC Line Central line still needed: Yes Urinary Cath still in place: No Assessment/Plan Assessment/Plan 1. Acute on chronic respiratory distress secondary to volume overload and possible pneumonia: resolved 2. End stage renal disease on HD 3. Diabetes type 2 4. Leukocytosis likely secondary to pneumonia-resolved / IV antibiotics 5. Hypertension: suboptimal control 6. Debility secondary to comorbidities 7. Chronic wounds: Follows with vascular outpatient 8. Severe peripheral neuropathy 2/2 DM and ESRD PLAN: * Patient has been stable for d/c since 05/20. poster made aware of need for alternative placement since 05/20. Placement still pending * Continue hemodialysis per nephrology, continue antibiotics * Continue Lyrica for neuropathic pain, continue wound care per recommendations * Patient was on long-acting MS Contin every 3 hours as needed at alf, this is on hold, so far patient seems comfortable * Continue supportive care, find alternative placement, patient is stable for d/ c once found. * PT eval Prophylaxis: Heparin Subjective 24 Hr Interval Summary Free Text/Dictation patient has no new complaints she would have liked to be discharged home but has help for 96hours a month only States she was walking prior to admission Exam/Review of Systems Vital Signs Vitals Vital Signs Date Time Temp Pulse Resp B/P Pulse Ox O2 Delivery O2 Flow Rate FiO2 05/22/17 11:15 77 14 05/22/17 08:20 Nasal Cannula 3.0 05/22/17 07:22 98.0 139/63 99 Intake and Output 05/21/17 05/21/17 05/22/17 15:00 23:00 07:00 Intake Total 150 ml 800 ml 200 ml Balance 150 ml 800 ml 200 ml Exam Constitutional: alert, distress, obese Psych: normal affect Head: normocephalic Eyes: PERRL, No icteric ENMT: mucosa pink and moist Neck: supple Respiratory: diminished breath sounds, No crackles/rales, No labored breathing, No wheezing Cardiovascular: regular rate and rhythm, No murmurs/extra sounds Gastrointestinal: bowel sounds, non-tender, soft Musculoskeletal: No nl extremities to inspection Extremities: other (unstageable L heel), No edema Neurological: nl mental status Results Result Diagram: 05/19/17 0645 05/22/17 0729 Results 24 hrs Laboratory Tests Test 05/21/17 12:13 05/21/17 17:32 05/21/17 22:15 05/22/17 07:29 Bedside Glucose 173 87 131 Sodium Level 130 L Potassium Level 3.9 Chloride Level 93 L Carbon Dioxide Level 30 Anion Gap 11 Blood Urea Nitrogen 35 #H Creatinine 4.34 #H Glucose Level 177 Calcium Level 9.3 Test 05/22/17 07:55 Bedside Glucose 174 Medications Medications Current Medications Ondansetron HCl (Zofran Inj) 4 mg Q6H PRN IV NAUSEA AND/OR VOMITING; Start 05/17 at 14:00 Acetaminophen (Tylenol Tab) 650 mg Q6H PRN PO PAIN LEVEL 1-3 OR FEVER Last administered on 05/19/17 10:32; Admin Dose 650 MG; Start 05/17/17 at 14:00 Acetaminophen/ Hydrocodone Bitart ([place] (5/325)) 1 tab Q6H PRN PO MODERATE PAIN LEVEL 4-6; Start 05/17/17 at 14:00 Morphine Sulfate (morphine) 2 mg Q4H PRN IV SEVERE PAIN LEVEL 7-10 Last administered on 05/19/17 17:21; Admin Dose 2 MG; Start 05/17/17 at 14:00 Ascorbic Acid (Vitamin C) 500 mg DAILY PO Last administered on 05/22/17 08:08 ; Admin Dose 500 MG; Start 05/17/17 at 15:00 Aspirin (Halfprin) 81 mg DAILY PO Last administered on 05/22/17 08:08; Admin Dose 81 MG; Start 05/17/17 at 15:00 Gabapentin (Neurontin) 100 mg BID PO Last administered on 05/22/17 08:08; Admin Dose 100 MG; Start 05/17/17 at 15:00 Hydralazine HCl (Apresoline) 50 mg Q4 PO Last administered on 05/22/17 08:09; Admin Dose 50 MG; Start 05/17/17 at 15:00 Ondansetron HCl (Zofran Tab) 4 mg Q6H PRN PO NAUSEA AND/OR VOMITING; Start 05/17 at 14:30 Pantoprazole (Protonix Tab) 40 mg DAILY PO Last administered on 05/22/17 08:09 ; Admin Dose 40 MG; Start 05/17/17 at 15:00 Zinc Sulfate (Zinc Sulfate) 220 mg DAILY PO Last administered on 05/22/17 08: 09; Admin Dose 220 MG; Start 05/17/17 at 15:00 Heparin Sodium (Porcine) (Heparin (5000 Units/0.5 ml)) 5,000 unit BID SC Last administered on 05/22/17 08:13; Admin Dose 5,000 UNIT; Start 05/17/17 at 15:00 Miscellaneous Information 1 ea NOTE XX ; Start 05/17/17 at 15:00 Glucose (Glutose) 15 gm Q15M PRN PO DECREASED GLUCOSE; Start 05/17/17 at 15:00 Glucose (Glutose) 22.5 gm Q15M PRN PO DECREASED GLUCOSE; Start 05/17/17 at 15:00 Dextrose (D50w Syringe) 25 ml Q15M PRN IV DECREASED GLUCOSE; Start 05/17/17 at 15:00 Dextrose (D50w Syringe) 50 ml Q15M PRN IV DECREASED GLUCOSE Last administered on 05/18/17 20:01; Admin Dose 50 ML; Start 05/17/17 at 15:00 Glucagon (Glucagen) 1 mg Q15M PRN IM DECREASED GLUCOSE; Start 05/17/17 at 15:00 Glucose (Glutose) 15 gm Q15M PRN BUCCAL DECREASED GLUCOSE; Start 05/17/17 at 15: 00 [facility] This patient hoffman... PRN PRN XX WOUND CARE; Start 05/17/17 at 17:30 Hydralazine HCl (Apresoline) 10 mg Q6H PRN IV ELEVATED BLOOD PRESSURE Last administered on 05/18/17 00:07; Admin Dose 10 MG; Start 05/18/17 at 00:00 Pregabalin (Lyrica) 75 mg BID PO Last administered on 05/19/17 13:11; Admin Dose 75 MG; Start 05/19/17 at 11:00 Lisinopril 40 mg 40 mg DAILY PO Last administered on 05/22/17 08:09; Admin Dose 40 MG; Start 05/19/17 at 11:30 Levofloxacin/ Dextrose (Levaquin 750 Mg/ D5W 150 ml (Pmx)) 150 ml @ 100 mls/hr Q48H IVPB Last administered on 05/21/17 13:00; Admin Dose 100 MLS/HR; Start at 12:00 Amlodipine Besylate (Norvasc) 10 mg DAILY PO Last administered on 05/22/17 08: 08; Admin Dose 10 MG; Start 05/19/17 at 11:30 Diagnostic Test (Pha) (Accu-Chek) 1 ea 02 XX Last administered on 05/21/17 01: 46; Admin Dose 1 EA; Start 05/21/17 at 02:00 Collagenase (Santyl) 1 applic DAILY TOP Last administered on 05/22/17 08:09; Admin Dose 1 APPLIC; Start 05/20/17 at 15:00 Insulin Detemir (Levemir) 28 unit DAILY SC Last administered on 05/22/17 08:14 ; Admin Dose 28 UNIT; Start 05/21/17 at 09:00 Zolpidem Tartrate (Ambien) 5 mg HS PRN PO INSOMNIA Last administered on 02:08; Admin Dose 5 MG; Start 05/21/17 at 02:00 Docusate Sodium (Colace) 100 mg BID PO Last administered on 05/22/17 08:09; Admin Dose 100 MG; Start 05/21/17 at 23:00 Bisacodyl (Dulcolax) 5 mg DAILY PO Last administered on 05/22/17 08:08; Admin Dose 5 MG; Start 05/22/17 at 09:00 RICHARD GUERRERO May 22, 2017 11:39
[2017-05-22] MEDS ORDERED: MAGNESIUM CITRATE 300 ML BTL PO ONE (18:00)
[2017-05-22] MEDS: EPOETIN 4000 UNITS/1 ML INJ (ESRD) SC SCH (18:01)
[2017-05-22] MEDS: ZOLPIDEM 5 MG TAB PO PRN (21:23)
[2017-05-22] MEDS: morphine 2 MG INJ IV PRN (21:26)
[2017-05-23] VITALS (9 sets, daily range): BP systolic 108–148; BP diastolic 58–67; PULSE 74–89; RESP 18
[2017-05-23] MEDS ORDERED: ZOLPIDEM 5 MG TAB PO ONE (01:00)
[2017-05-23] MEDS: ACCUCHECK AT 2AM (Patients on SS coverage) XX SCH (01:09)
[2017-05-23 08:02] LABS: ADD SCAN DIFF NO
[2017-05-23 08:23] LABS: BASOPHIL # 0.1 10^3/ul (0.0-0.1); BASOPHILS % 0.5 % (0.0-2.0); EOSINOPHILS # 0.4 10^3/ul (0.0-0.5); EOSINOPHILS % 3.7 % (0.0-7.0); HEMATOCRIT 30.3 % (37.0-47.0); HEMOGLOBIN 8.9 g/dl (12.0-16.0); LYMPHOCYTES # 2.1 10^3/ul (0.8-2.9); LYMPHOCYTES % 20.7 % (15.0-51.0); MEAN CORPUSCULAR HEMOGLOBIN 28.4 pg (29.0-33.0); MEAN CORPUSCULAR HGB CONC 29.4 g/dl (32.0-37.0); MEAN CORPUSCULAR VOLUME 96.8 fl (82.0-101.0); MEAN PLATELET VOLUME 10.4 fl (7.4-10.4); MONOCYTE # 0.9 10^3/ul (0.3-0.9); MONOCYTES % 8.9 % (0.0-11.0); NEUTROPHIL # 6.3 10^3/ul (1.6-7.5); NEUTROPHILS % 62.2 % (39.0-77.0); NUCLEATED RED BLOOD CELLS% 0.2 /100WBC (0.0-0.0); PLATELET COUNT 326 10^3/UL (140-415); RED BLOOD COUNT 3.13 10^6/ul (4.20-5.40); RED CELL DISTRIBUTION WIDTH 16.2 % (11.5-14.5); WHITE BLOOD COUNT 10.2 10^3/ul (4.8-10.8)
[2017-05-23 08:37] LABS: CALCIUM 9.4 mg/dl (8.4-10.2); CREATININE 3.58 mg/dl (0.44-1.00); POTASSIUM 4.2 mmol/L (3.5-5.1)
[2017-05-23 08:39] LABS: MAGNESIUM 2.1 mg/dl (1.7-2.5)
--- NOTE | 2017-05-23 08:47 | CONS ---
Date/Time of Note Date/Time of Note DATE: 05/23/17 TIME: 08:45 Assessment/Plan Assessment/Plan Chief Complaint/Hosp Course - ESRD on hemodialysis @ [facility] Dialysis - CAD / CHF / Volume overloaded - DM - Recent history of cellulitis / On Abx - Anemia - Obesity - High Cholesterol PLAN: - Plan for dialysis in AM - Needs PT/OT - EPOGEN to keep Hgb ~ 10 - Check Iron status - IV Abx Problems: Consultation Date/Type/Reason Admit Date/Time May 17, 2017 at 12:21 Initial Consult Date 05/19/17 Type of Consultation: NEPHROLOGY Reason for Consultation ESRD on Hemodialysis 24 HR Interval Summary Constitutional: improved, no complaints Exam/Review of Systems Vital Signs Vitals Vital Signs Date Time Temp Pulse Resp B/P Pulse Ox O2 Delivery O2 Flow Rate FiO2 05/23/17 08:00 89 05/23/17 06:53 98.1 18 113/59 96 05/23/17 00:22 2.0 05/22/17 20:20 Nasal Cannula Intake and Output 05/22/17 05/22/17 05/23/17 15:00 23:00 07:00 Intake Total 600 ml 600 ml Output Total 3000 ml Balance -2400 ml 600 ml Exam Constitutional: alert, oriented Psych: no complaints Head: normocephalic Neck: supple Respiratory: crackles/rales Cardiovascular: edema, regular rate and rhythm, systolic murmur Gastrointestinal: soft Results Result Diagram: 05/23/17 0644 05/23/17 0644 Results 24 hrs Laboratory Tests Test 05/22/17 12:01 05/22/17 14:42 05/22/17 17:41 05/22/17 21:34 Bedside Glucose 186 110 183 127 Test 05/23/17 06:44 05/23/17 08:13 White Blood Count 10.2 Red Blood Count 3.13 L Hemoglobin 8.9 L Hematocrit 30.3 L Mean Corpuscular Volume 96.8 Mean Corpuscular Hemoglobin 28.4 L Mean Corpuscular Hemoglobin Concent 29.4 L Red Cell Distribution Width 16.2 H Platelet Count 326 Mean Platelet Volume 10.4 Neutrophils % 62.2 Lymphocytes % 20.7 Monocytes % 8.9 Eosinophils % 3.7 Basophils % 0.5 Nucleated Red Blood Cells % 0.2 H Neutrophils # 6.3 Lymphocytes # 2.1 Monocytes # 0.9 Eosinophils # 0.4 Basophils # 0.1 Nucleated Red Blood Cells # 0.0 Sodium Level 132 L Potassium Level 4.2 Chloride Level 96 L Carbon Dioxide Level 31 Anion Gap 9 Blood Urea Nitrogen 27 H Creatinine 3.58 H Glucose Level 173 Calcium Level 9.4 Magnesium Level 2.1 Thyroid Stimulating Hormone (TSH) Pending Bedside Glucose 186 Medications Medications Current Medications Ondansetron HCl (Zofran Inj) 4 mg Q6H PRN IV NAUSEA AND/OR VOMITING; Start 05/17 at 14:00 Acetaminophen (Tylenol Tab) 650 mg Q6H PRN PO PAIN LEVEL 1-3 OR FEVER Last administered on 05/19/17 10:32; Admin Dose 650 MG; Start 05/17/17 at 14:00 Acetaminophen/ Hydrocodone Bitart ([place] (5/325)) 1 tab Q6H PRN PO MODERATE PAIN LEVEL 4-6; Start 05/17/17 at 14:00 Morphine Sulfate (morphine) 2 mg Q4H PRN IV SEVERE PAIN LEVEL 7-10 Last administered on 05/22/17 21:26; Admin Dose 2 MG; Start 05/17/17 at 14:00 Ascorbic Acid (Vitamin C) 500 mg DAILY PO Last administered on 05/22/17 08:08 ; Admin Dose 500 MG; Start 05/17/17 at 15:00 Aspirin (Halfprin) 81 mg DAILY PO Last administered on 05/22/17 08:08; Admin Dose 81 MG; Start 05/17/17 at 15:00 Gabapentin (Neurontin) 100 mg BID PO Last administered on 05/22/17 21:24; Admin Dose 100 MG; Start 05/17/17 at 15:00 Hydralazine HCl (Apresoline) 50 mg Q4 PO Last administered on 05/23/17 05:51; Admin Dose 50 MG; Start 05/17/17 at 15:00 Ondansetron HCl (Zofran Tab) 4 mg Q6H PRN PO NAUSEA AND/OR VOMITING; Start 05/17 at 14:30 Pantoprazole (Protonix Tab) 40 mg DAILY PO Last administered on 05/22/17 08:09 ; Admin Dose 40 MG; Start 05/17/17 at 15:00 Zinc Sulfate (Zinc Sulfate) 220 mg DAILY PO Last administered on 05/22/17 08: 09; Admin Dose 220 MG; Start 05/17/17 at 15:00 Heparin Sodium (Porcine) (Heparin (5000 Units/0.5 ml)) 5,000 unit BID SC Last administered on 05/22/17 21:30; Admin Dose 5,000 UNIT; Start 05/17/17 at 15:00 Miscellaneous Information 1 ea NOTE XX ; Start 05/17/17 at 15:00 Glucose (Glutose) 15 gm Q15M PRN PO DECREASED GLUCOSE; Start 05/17/17 at 15:00 Glucose (Glutose) 22.5 gm Q15M PRN PO DECREASED GLUCOSE; Start 05/17/17 at 15:00 Dextrose (D50w Syringe) 25 ml Q15M PRN IV DECREASED GLUCOSE; Start 05/17/17 at 15:00 Dextrose (D50w Syringe) 50 ml Q15M PRN IV DECREASED GLUCOSE Last administered on 05/18/17 20:01; Admin Dose 50 ML; Start 05/17/17 at 15:00 Glucagon (Glucagen) 1 mg Q15M PRN IM DECREASED GLUCOSE; Start 05/17/17 at 15:00 Glucose (Glutose) 15 gm Q15M PRN BUCCAL DECREASED GLUCOSE; Start 05/17/17 at 15: 00 Miscellaneous Information (Pending [facility] Order For Wound Care) This patient hoffman... PRN PRN XX WOUND CARE; Start 05/17/17 at 17:30 Hydralazine HCl (Apresoline) 10 mg Q6H PRN IV ELEVATED BLOOD PRESSURE Last administered on 05/18/17 00:07; Admin Dose 10 MG; Start 05/18/17 at 00:00 Pregabalin (Lyrica) 75 mg BID PO Last administered on 05/19/17 13:11; Admin Dose 75 MG; Start 05/19/17 at 11:00 Lisinopril 40 mg 40 mg DAILY PO Last administered on 05/22/17 08:09; Admin Dose 40 MG; Start 05/19/17 at 11:30 Levofloxacin/ Dextrose (Levaquin 750 Mg/ D5W 150 ml (Pmx)) 150 ml @ 100 mls/hr Q48H IVPB Last administered on 05/21/17 13:00; Admin Dose 100 MLS/HR; Start at 12:00; Stop 05/23/17 at 10:00 Amlodipine Besylate (Norvasc) 10 mg DAILY PO Last administered on 05/22/17 08: 08; Admin Dose 10 MG; Start 05/19/17 at 11:30 Diagnostic Test (Pha) (Accu-Chek) 1 ea 02 XX Last administered on 05/21/17 01: 46; Admin Dose 1 EA; Start 05/21/17 at 02:00 Collagenase (Santyl) 1 applic DAILY TOP Last administered on 05/22/17 08:09; Admin Dose 1 APPLIC; Start 05/20/17 at 15:00 Insulin Detemir (Levemir) 28 unit DAILY SC Last administered on 05/22/17 08:14 ; Admin Dose 28 UNIT; Start 05/21/17 at 09:00 Bisacodyl (Dulcolax) 5 mg DAILY PO Last administered on 05/22/17 08:08; Admin Dose 5 MG; Start 05/22/17 at 09:00 Levofloxacin (Levaquin) 750 mg Q48H PO ; Start 05/23/17 at 12:00 Docusate Sodium (Colace) 100 mg DAILY PRN PO CONSTIPATION; Start 05/23/17 at 09 :00 Polyethylene Glycol (Miralax) 17 gm DAILY PO ; Start 05/23/17 at 09:00 Zolpidem Tartrate (Ambien) 10 mg HS PRN PO INSOMNIA; Start 05/23/17 at 21:00 ANIBAL ALMANZAR MD May 23, 2017 08:46
[2017-05-23] MEDS ORDERED: DOCUSATE SODIUM 100 MG CAP PO PRN (09:00)
[2017-05-23] MEDS: PREGABALIN 75 MG CAP PO SCH ×3 (09:00→21:00)
[2017-05-23] MEDS: Insulin NOVOLOG SS MILD Algorithm (SS with meals and bedtime) SC SCH ×4 (09:01→21:00)
[2017-05-23] MEDS: INSULIN ASPART [NOVOLOG] 3 ML PEN SC SCH ×3 (09:01→17:24)
[2017-05-23 09:03] LABS: THYROID STIMULATING HORMONE 8.7 MIU/L (0.465-4.680)
[2017-05-23] MEDS: INSULIN DETEMIR [LEVEMIR] 3ML CART SC SCH (09:03)
[2017-05-23] MEDS: HEPARIN 5,000 UNIT/0.5 ML VIAL SC SCH ×2 (09:03→21:42)
[2017-05-23] MEDS: ASPIRIN (EC) 81 MG TAB PO SCH (09:05)
[2017-05-23] MEDS: POLYETHYLENE GLYCOL 17 GM PACKET PO SCH (09:05)
[2017-05-23] MEDS: GABAPENTIN 100 MG CAP PO SCH ×2 (09:05→21:30)
[2017-05-23] MEDS: ASCORBIC ACID 500 MG TAB PO SCH (09:06)
[2017-05-23] MEDS: AMLODIPINE 5 MG TAB PO SCH (09:06)
[2017-05-23] MEDS: CALCIUM ACETATE 667 MG CAP PO SCH ×3 (09:06→17:21)
[2017-05-23] MEDS: PANTOPRAZOLE (EC) 40 MG TAB PO SCH (09:06)
[2017-05-23] MEDS: BISACODYL (EC) 5 MG TAB PO SCH (09:06)
[2017-05-23] MEDS: LISINOPRIL 20 MG TAB PO SCH (09:06)
[2017-05-23] MEDS: ZINC SULFATE 220 MG CAP PO SCH (09:06)
[2017-05-23] MEDS: COLLAGENASE 30 GM TUBE TOP SCH (09:07)
[2017-05-23] MEDS ORDERED: BISACODYL 10 MG SUPP PR ONE (09:30)
[2017-05-23] MEDS: LEVOFLOXACIN 750 MG TABLET PO SCH (12:20)
--- NOTE | 2017-05-23 12:53 | PN ---
Date/Time of Note Date/Time of Note DATE: 05/23/17 TIME: 12:51 Assessment/Plan VTE Prophylaxis VTE Prophylaxis Intervention: heparin Lines/Catheters IV Catheter Type (from Nrs): PICC Line Central line still needed: Yes Urinary Cath still in place: No Assessment/Plan Assessment/Plan 1. Acute on chronic respiratory distress secondary to volume overload and possible pneumonia: resolved 2. End stage renal disease on HD 3. Diabetes type 2 4. Leukocytosis likely secondary to pneumonia-resolved / IV antibiotics 5. Hypertension: suboptimal control 6. Debility secondary to comorbidities 7. Chronic wounds: Follows with vascular outpatient 8. Severe peripheral neuropathy 2/2 DM and ESRD 9. Opiod induced constipation PLAN: * Patient has been stable for d/c since 05/20. relay adjuster made aware of need for alternative placement since 05/20. Placement still pending * Continue hemodialysis per nephrology, continue antibiotics * Continue stool softeneres, fiber and laxative, patient will have BM eventually , needs to be on good bowel regimen * Continue Lyrica for neuropathic pain, continue wound care per recommendations * Patient was on long-acting MS Contin every 3 hours as needed at [place], this is on hold, so far patient seems comfortable * Continue supportive care, find alternative placement, patient is stable for d/ c once found. * PT eval Prophylaxis: Heparin Subjective 24 Hr Interval Summary Free Text/Dictation c/o constipation we discussed placement difficulty PT eval pending Exam/Review of Systems Vital Signs Vitals Vital Signs Date Time Temp Pulse Resp B/P Pulse Ox O2 Delivery O2 Flow Rate FiO2 05/23/17 12:00 85 05/23/17 11:35 98.1 18 136/61 96 05/23/17 00:22 2.0 05/22/17 20:20 Nasal Cannula Intake and Output 05/22/17 05/22/17 05/23/17 15:00 23:00 07:00 Intake Total 600 ml 600 ml Output Total 3000 ml Balance -2400 ml 600 ml Exam Constitutional: alert, no distress, obese Psych: no anxiety Head: normocephalic Eyes: PERRL, No icteric ENMT: mucosa pink and moist Neck: supple Respiratory: diminished breath sounds, No crackles/rales, No labored breathing, No wheezing Cardiovascular: regular rate and rhythm, No murmurs/extra sounds Gastrointestinal: bowel sounds, non-tender, soft Musculoskeletal: No nl extremities to inspection Extremities: other (unstageable L heel), No edema Neurological: nl mental status Results Result Diagram: 05/23/17 0644 05/23/17 0644 Results 24 hrs Laboratory Tests Test 05/22/17 14:42 05/22/17 17:41 05/22/17 21:34 05/23/17 06:44 Bedside Glucose 110 183 127 White Blood Count 10.2 Red Blood Count 3.13 L Hemoglobin 8.9 L Hematocrit 30.3 L Mean Corpuscular Volume 96.8 Mean Corpuscular Hemoglobin 28.4 L Mean Corpuscular Hemoglobin Concent 29.4 L Red Cell Distribution Width 16.2 H Platelet Count 326 Mean Platelet Volume 10.4 Neutrophils % 62.2 Lymphocytes % 20.7 Monocytes % 8.9 Eosinophils % 3.7 Basophils % 0.5 Nucleated Red Blood Cells % 0.2 H Neutrophils # 6.3 Lymphocytes # 2.1 Monocytes # 0.9 Eosinophils # 0.4 Basophils # 0.1 Nucleated Red Blood Cells # 0.0 Sodium Level 132 L Potassium Level 4.2 Chloride Level 96 L Carbon Dioxide Level 31 Anion Gap 9 Blood Urea Nitrogen 27 H Creatinine 3.58 H Glucose Level 173 Calcium Level 9.4 Magnesium Level 2.1 Thyroid Stimulating Hormone (TSH) 8.700 H Test 05/23/17 08:13 05/23/17 11:50 Bedside Glucose 186 154 Medications Medications Current Medications Ondansetron HCl (Zofran Inj) 4 mg Q6H PRN IV NAUSEA AND/OR VOMITING; Start 05/17 at 14:00 Acetaminophen (Tylenol Tab) 650 mg Q6H PRN PO PAIN LEVEL 1-3 OR FEVER Last administered on 05/19/17 10:32; Admin Dose 650 MG; Start 05/17/17 at 14:00 Acetaminophen/ Hydrocodone Bitart ([place] (5/325)) 1 tab Q6H PRN PO MODERATE PAIN LEVEL 4-6; Start 05/17/17 at 14:00 Morphine Sulfate (morphine) 2 mg Q4H PRN IV SEVERE PAIN LEVEL 7-10 Last administered on 05/22/17 21:26; Admin Dose 2 MG; Start 05/17/17 at 14:00 Ascorbic Acid (Vitamin C) 500 mg DAILY PO Last administered on 05/23/17 09:06 ; Admin Dose 500 MG; Start 05/17/17 at 15:00 Aspirin (Halfprin) 81 mg DAILY PO Last administered on 05/23/17 09:05; Admin Dose 81 MG; Start 05/17/17 at 15:00 Gabapentin (Neurontin) 100 mg BID PO Last administered on 05/23/17 09:05; Admin Dose 100 MG; Start 05/17/17 at 15:00 Hydralazine HCl (Apresoline) 50 mg Q4 PO Last administered on 05/23/17 12:20; Admin Dose 50 MG; Start 05/17/17 at 15:00 Ondansetron HCl (Zofran Tab) 4 mg Q6H PRN PO NAUSEA AND/OR VOMITING; Start 05/17 at 14:30 Pantoprazole (Protonix Tab) 40 mg DAILY PO Last administered on 05/23/17 09:06 ; Admin Dose 40 MG; Start 05/17/17 at 15:00 Zinc Sulfate (Zinc Sulfate) 220 mg DAILY PO Last administered on 05/23/17 09: 06; Admin Dose 220 MG; Start 05/17/17 at 15:00 Heparin Sodium (Porcine) (Heparin (5000 Units/0.5 ml)) 5,000 unit BID SC Last administered on 05/23/17 09:03; Admin Dose 5,000 UNIT; Start 05/17/17 at 15:00 Miscellaneous Information 1 ea NOTE XX ; Start 05/17/17 at 15:00 Glucose (Glutose) 15 gm Q15M PRN PO DECREASED GLUCOSE; Start 05/17/17 at 15:00 Glucose (Glutose) 22.5 gm Q15M PRN PO DECREASED GLUCOSE; Start 05/17/17 at 15:00 Dextrose (D50w Syringe) 25 ml Q15M PRN IV DECREASED GLUCOSE; Start 05/17/17 at 15:00 Dextrose (D50w Syringe) 50 ml Q15M PRN IV DECREASED GLUCOSE Last administered on 05/18/17 20:01; Admin Dose 50 ML; Start 05/17/17 at 15:00 Glucagon (Glucagen) 1 mg Q15M PRN IM DECREASED GLUCOSE; Start 05/17/17 at 15:00 Glucose (Glutose) 15 gm Q15M PRN BUCCAL DECREASED GLUCOSE; Start 05/17/17 at 15: 00 Miscellaneous Information (Pending Santyl Order For Wound Care) This patient hoffman... PRN PRN XX WOUND CARE; Start 05/17/17 at 17:30 Hydralazine HCl (Apresoline) 10 mg Q6H PRN IV ELEVATED BLOOD PRESSURE Last administered on 05/18/17 00:07; Admin Dose 10 MG; Start 05/18/17 at 00:00 Pregabalin (Lyrica) 75 mg BID PO Last administered on 05/23/17 09:05; Admin Dose 75 MG; Start 05/19/17 at 11:00 Lisinopril (Zestril) 40 mg DAILY PO Last administered on 05/23/17 09:06; Admin Dose 40 MG; Start 05/19/17 at 11:30 Amlodipine Besylate (Norvasc) 10 mg DAILY PO Last administered on 05/23/17 09: 06; Admin Dose 10 MG; Start 05/19/17 at 11:30 Diagnostic Test (Pha) (Accu-Chek) 1 ea 02 XX Last administered on 05/21/17 01: 46; Admin Dose 1 EA; Start 05/21/17 at 02:00 Collagenase (Santyl) 1 applic DAILY TOP Last administered on 05/23/17 09:07; Admin Dose 1 APPLIC; Start 05/20/17 at 15:00 Insulin Detemir (Levemir) 28 unit DAILY SC Last administered on 05/23/17 09:03 ; Admin Dose 28 UNIT; Start 05/21/17 at 09:00 Bisacodyl (Dulcolax) 5 mg DAILY PO Last administered on 05/23/17 09:06; Admin Dose 5 MG; Start 05/22/17 at 09:00 Levofloxacin (Levaquin) 750 mg Q48H PO Last administered on 05/23/17 12:20; Admin Dose 750 MG; Start 05/23/17 at 12:00 Docusate Sodium (Colace) 100 mg DAILY PRN PO CONSTIPATION; Start 05/23/17 at 09 :00 Polyethylene Glycol (Miralax) 17 gm DAILY PO Last administered on 05/23/17 09: 05; Admin Dose 17 GM; Start 05/23/17 at 09:00 Zolpidem Tartrate (Ambien) 10 mg HS PRN PO INSOMNIA; Start 05/23/17 at 21:00 RICHARD GUERRERO May 23, 2017 12:53
--- NOTE | 2017-05-23 14:02 | RADRPT ---
Vent Rate: 89 bpm RR Interval: 0 msec [place] Interval: 240 msec QRS Duration: 86 msec QT Interval: 358 msec QTC Interval: 435 msec P-R-T [place]: 45 - 17 - 57 degrees Sinus rhythm with 1st degree AV block Otherwise normal ECG Electronically Signed By: Scott Wilkins [id number]
[2017-05-23] MEDS: ZOLPIDEM 5 MG TAB PO PRN (21:30)
[2017-05-24] VITALS (11 sets, daily range): BP systolic 102–145; BP diastolic 54–66; PULSE 75–79; RESP 16–19
[2017-05-24] MEDS: morphine 2 MG INJ IV PRN ×2 (01:59→12:38)
[2017-05-24] MEDS: ACCUCHECK AT 2AM (Patients on SS coverage) XX SCH (02:02)
[2017-05-24] MEDS: LISINOPRIL 20 MG TAB PO SCH (09:00)
[2017-05-24] MEDS: GABAPENTIN 100 MG CAP PO SCH ×2 (09:26→20:32)
[2017-05-24] MEDS: PREGABALIN 75 MG CAP PO SCH ×3 (09:26→20:41)
[2017-05-24] MEDS: CALCIUM ACETATE 667 MG CAP PO SCH ×3 (09:27→18:02)
[2017-05-24] MEDS: ASPIRIN (EC) 81 MG TAB PO SCH (09:27)
[2017-05-24] MEDS: BISACODYL (EC) 5 MG TAB PO SCH (09:27)
[2017-05-24] MEDS: ASCORBIC ACID 500 MG TAB PO SCH (09:27)
[2017-05-24] MEDS: AMLODIPINE 5 MG TAB PO SCH (09:27)
[2017-05-24] MEDS: PANTOPRAZOLE (EC) 40 MG TAB PO SCH (09:27)
[2017-05-24] MEDS: ZINC SULFATE 220 MG CAP PO SCH (09:27)
[2017-05-24] MEDS: POLYETHYLENE GLYCOL 17 GM PACKET PO SCH (09:28)
[2017-05-24] MEDS: HEPARIN 5,000 UNIT/0.5 ML VIAL SC SCH ×2 (09:31→20:34)
[2017-05-24] MEDS: Insulin NOVOLOG SS MILD Algorithm (SS with meals and bedtime) SC SCH ×4 (09:44→20:32)
[2017-05-24] MEDS: INSULIN ASPART [NOVOLOG] 3 ML PEN SC SCH ×3 (09:45→17:35)
[2017-05-24] MEDS: COLLAGENASE 30 GM TUBE TOP SCH (09:46)
[2017-05-24] MEDS: INSULIN DETEMIR [LEVEMIR] 3ML CART SC SCH (09:46)
--- NOTE | 2017-05-24 10:33 | CONS ---
Date/Time of Note Date/Time of Note DATE: 05/24/17 TIME: 10:32 Assessment/Plan Assessment/Plan Chief Complaint/Hosp Course - ESRD on hemodialysis @ [facility] Dialysis - CAD / CHF / Volume overloaded - DM - Recent history of cellulitis / On Abx - Anemia - Obesity - High Cholesterol PLAN: - Plan for dialysis - Needs PT/OT - EPOGEN to keep Hgb ~ 10 - Check Iron status - IV Abx Problems: Consultation Date/Type/Reason Admit Date/Time May 17, 2017 at 12:21 Initial Consult Date 05/19/17 Type of Consultation: NEPHROLOGY Reason for Consultation ESRD 24 HR Interval Summary Constitutional: no complaints Exam/Review of Systems Vital Signs Vitals Vital Signs Date Time Temp Pulse Resp B/P Pulse Ox O2 Delivery O2 Flow Rate FiO2 05/24/17 07:40 98.8 76 16 120/57 94 05/24/17 01:57 2.0 05/23/17 20:10 Nasal Cannula Intake and Output 05/23/17 05/23/17 05/24/17 15:00 23:00 07:00 Intake Total 850 ml Balance 850 ml Exam Constitutional: alert Neck: jvd Respiratory: crackles/rales Cardiovascular: edema, systolic murmur Gastrointestinal: soft Results Result Diagram: 05/23/17 0644 05/23/17 0644 Results 24 hrs Laboratory Tests Test 05/23/17 11:50 05/23/17 17:19 05/23/17 21:20 05/23/17 21:39 Bedside Glucose 154 87 61 L 68 L Test 05/23/17 22:03 05/24/17 02:05 05/24/17 07:54 Bedside Glucose 98 128 159 Medications Medications Current Medications Ondansetron HCl (Zofran Inj) 4 mg Q6H PRN IV NAUSEA AND/OR VOMITING; Start 05/17 at 14:00 Acetaminophen (Tylenol Tab) 650 mg Q6H PRN PO PAIN LEVEL 1-3 OR FEVER Last administered on 05/19/17t 10:32; Admin Dose 650 MG; Start 05/17/17 at 14:00 Acetaminophen/ Hydrocodone Bitart ([place] (5/325)) 1 tab Q6H PRN PO MODERATE PAIN LEVEL 4-6; Start 05/17/17 at 14:00 Morphine Sulfate (morphine) 2 mg Q4H PRN IV SEVERE PAIN LEVEL 7-10 Last administered on 05/24/17 01:59; Admin Dose 2 MG; Start 05/17/17 at 14:00 Ascorbic Acid (Vitamin C) 500 mg DAILY PO Last administered on 05/24/17 09:27 ; Admin Dose 500 MG; Start 05/17/17 at 15:00 Aspirin (Halfprin) 81 mg DAILY PO Last administered on 05/24/17 09:27; Admin Dose 81 MG; Start 05/17/17 at 15:00 Gabapentin (Neurontin) 100 mg BID PO Last administered on 05/24/17 09:26; Admin Dose 100 MG; Start 05/17/17 at 15:00 Hydralazine HCl (Apresoline) 50 mg Q4 PO Last administered on 05/24/17 01:22; Admin Dose 50 MG; Start 05/17/17 at 15:00 Ondansetron HCl (Zofran Tab) 4 mg Q6H PRN PO NAUSEA AND/OR VOMITING; Start 05/17 at 14:30 Pantoprazole (Protonix Tab) 40 mg DAILY PO Last administered on 05/24/17 09:27 ; Admin Dose 40 MG; Start 05/17/17 at 15:00 Zinc Sulfate (Zinc Sulfate) 220 mg DAILY PO Last administered on 05/24/17 09: 27; Admin Dose 220 MG; Start 05/17/17 at 15:00 Heparin Sodium (Porcine) (Heparin (5000 Units/0.5 ml)) 5,000 unit BID SC Last administered on 05/24/17 09:31; Admin Dose 5,000 UNIT; Start 05/17/17 at 15:00 Miscellaneous Information 1 ea NOTE XX ; Start 05/17/17 at 15:00 Glucose (Glutose) 15 gm Q15M PRN PO DECREASED GLUCOSE; Start 05/17/17 at 15:00 Glucose (Glutose) 22.5 gm Q15M PRN PO DECREASED GLUCOSE; Start 05/17/17 at 15:00 Dextrose (D50w Syringe) 25 ml Q15M PRN IV DECREASED GLUCOSE; Start 05/17/17 at 15:00 Dextrose (D50w Syringe) 50 ml Q15M PRN IV DECREASED GLUCOSE Last administered on 05/18/17 20:01; Admin Dose 50 ML; Start 05/17/17 at 15:00 Glucagon (Glucagen) 1 mg Q15M PRN IM DECREASED GLUCOSE; Start 05/17/17 at 15:00 Glucose (Glutose) 15 gm Q15M PRN BUCCAL DECREASED GLUCOSE; Start 05/17/17 at 15: 00 Miscellaneous Information (Pending Santyl Order For Wound Care) This patient hoffman... PRN PRN XX WOUND CARE; Start 05/17/17 at 17:30 Hydralazine HCl (Apresoline) 10 mg Q6H PRN IV ELEVATED BLOOD PRESSURE Last administered on 05/18/17 00:07; Admin Dose 10 MG; Start 05/18/17 at 00:00 Pregabalin (Lyrica) 75 mg BID PO Last administered on 05/24/17 09:26; Admin Dose 75 MG; Start 05/19/17 at 11:00 Lisinopril (Zestril) 40 mg DAILY PO Last administered on 05/23/17 09:06; Admin Dose 40 MG; Start 05/19/17 at 11:30 Amlodipine Besylate (Norvasc) 10 mg DAILY PO Last administered on 05/24/17 09: 27; Admin Dose 10 MG; Start 05/19/17 at 11:30 Diagnostic Test (Pha) (Accu-Chek) 1 ea 02 XX Last administered on 05/24/17 02: 02; Admin Dose 1 EA; Start 05/21/17 at 02:00 Collagenase (Santyl) 1 applic DAILY TOP Last administered on 05/24/17 09:46; Admin Dose 1 APPLIC; Start 05/20/17 at 15:00 Bisacodyl (Dulcolax) 5 mg DAILY PO Last administered on 05/24/17 09:27; Admin Dose 5 MG; Start 05/22/17 at 09:00 Levofloxacin (Levaquin) 750 mg Q48H PO Last administered on 05/23/17 12:20; Admin Dose 750 MG; Start 05/23/17 at 12:00 Docusate Sodium (Colace) 100 mg DAILY PRN PO CONSTIPATION; Start 05/23/17 at 09 :00 Polyethylene Glycol (Miralax) 17 gm DAILY PO Last administered on 05/24/17 09: 28; Admin Dose 17 GM; Start 05/23/17 at 09:00 Zolpidem Tartrate (Ambien) 10 mg HS PRN PO INSOMNIA Last administered on t 21:30; Admin Dose 10 MG; Start 05/23/17 at 21:00 Insulin Detemir (Levemir) 25 unit DAILY SC ; Start 05/25/17 at 09:00 Lactulose (Enulose) 20 gm Q8 PO ; Start 05/24/17 at 14:00 ANIBAL ALMANZAR MD May 24, 2017 10:32
[2017-05-24] MEDS: LACTULOSE 30ML CUP PO SCH ×2 (14:13→21:36)
[2017-05-24] MEDS ORDERED: BISACODYL 10 MG SUPP PR PRN (15:30)
[2017-05-24] MEDS: EPOETIN 4000 UNITS/1 ML INJ (ESRD) SC SCH (18:21)
--- NOTE | 2017-05-24 19:53 | PN ---
Date/Time of Note Date/Time of Note DATE: 05/24/17 TIME: 19:52 Assessment/Plan VTE Prophylaxis VTE Prophylaxis Intervention: heparin Lines/Catheters IV Catheter Type (from Nrs): PICC Line Central line still needed: Yes Urinary Cath still in place: No Assessment/Plan Assessment/Plan 1. Acute on chronic respiratory distress secondary to volume overload and possible pneumonia: resolved 2. End stage renal disease on HD 3. Diabetes type 2 4. Leukocytosis likely secondary to pneumonia-resolved / IV antibiotics 5. Hypertension: suboptimal control 6. Debility secondary to comorbidities 7. Chronic wounds: Follows with vascular outpatient 8. Severe peripheral neuropathy 2/2 DM and ESRD 9. Opiod induced constipation PLAN: * Patient has been stable for d/c since 05/20. gastroenterology manager made aware of need for alternative placement since 05/20. Placement still pending * Continue hemodialysis per nephrology, continue antibiotics * Continue stool softeners, fiber and laxative, patient will have BM eventually , needs to be on good bowel regimen * Continue Lyrica for neuropathic pain, continue wound care per recommendations * Patient was on long-acting MS Contin every 3 hours as needed at alf, this is on hold, so far patient seems comfortable * Continue supportive care, find alternative placement, patient is stable for d/ c once found. * Continue in-house PT Prophylaxis: Heparin Subjective 24 Hr Interval Summary Free Text/Dictation No new complaints today, patient remains stable, awaiting placement. Exam/Review of Systems Vital Signs Vitals Vital Signs Date Time Temp Pulse Resp B/P Pulse Ox O2 Delivery O2 Flow Rate FiO2 05/24/17 14:40 98.1 67 18 102/58 94 05/24/17 01:57 2.0 05/23/17 20:10 Nasal Cannula Intake and Output 05/23/17 05/23/17 05/24/17 15:00 23:00 07:00 Intake Total 850 ml Balance 850 ml Exam Constitutional: alert, no distress, obese Psych: no anxiety Head: normocephalic Eyes: PERRL, No icteric ENMT: mucosa pink and moist Neck: supple Respiratory: diminished breath sounds, No crackles/rales, No labored breathing, No wheezing Cardiovascular: regular rate and rhythm, No murmurs/extra sounds Gastrointestinal: bowel sounds, non-tender, soft Musculoskeletal: No nl extremities to inspection Extremities: other (unstageable L heel), No edema Neurological: nl mental status Results Result Diagram: 05/23/17 0644 05/23/17 0644 Results 24 hrs Laboratory Tests Test 05/23/17 21:20 05/23/17 21:39 05/23/17 22:03 05/24/17 02:05 Bedside Glucose 61 L 68 L 98 128 Test 05/24/17 07:54 05/24/17 12:21 05/24/17 17:34 Bedside Glucose 159 171 126 Medications Medications Current Medications Ondansetron HCl (Zofran Inj) 4 mg Q6H PRN IV NAUSEA AND/OR VOMITING; Start 05/17 at 14:00 Acetaminophen (Tylenol Tab) 650 mg Q6H PRN PO PAIN LEVEL 1-3 OR FEVER Last administered on 05/19/17 10:32; Admin Dose 650 MG; Start 05/17/17 at 14:00 Acetaminophen/ Hydrocodone Bitart ([place] (5/325)) 1 tab Q6H PRN PO MODERATE PAIN LEVEL 4-6; Start 05/17/17 at 14:00 Morphine Sulfate (morphine) 2 mg Q4H PRN IV SEVERE PAIN LEVEL 7-10 Last administered on 05/24/17 12:38; Admin Dose 2 MG; Start 05/17/17 at 14:00 Ascorbic Acid (Vitamin C) 500 mg DAILY PO Last administered on 05/24/17 09:27 ; Admin Dose 500 MG; Start 05/17/17 at 15:00 Aspirin (Halfprin) 81 mg DAILY PO Last administered on 05/24/17 09:27; Admin Dose 81 MG; Start 05/17/17 at 15:00 Gabapentin (Neurontin) 100 mg BID PO Last administered on 05/24/17 09:26; Admin Dose 100 MG; Start 05/17/17 at 15:00 Hydralazine HCl (Apresoline) 50 mg Q4 PO Last administered on 05/24/17 18:02; Admin Dose 50 MG; Start 05/17/17 at 15:00 Ondansetron HCl (Zofran Tab) 4 mg Q6H PRN PO NAUSEA AND/OR VOMITING; Start 05/17 at 14:30 Pantoprazole (Protonix Tab) 40 mg DAILY PO Last administered on 05/24/17 09:27 ; Admin Dose 40 MG; Start 05/17/17 at 15:00 Zinc Sulfate (Zinc Sulfate) 220 mg DAILY PO Last administered on 05/24/17 09: 27; Admin Dose 220 MG; Start 05/17/17 at 15:00 Heparin Sodium (Porcine) (Heparin (5000 Units/0.5 ml)) 5,000 unit BID SC Last administered on 05/24/17 09:31; Admin Dose 5,000 UNIT; Start 05/17/17 at 15:00 Miscellaneous Information 1 ea NOTE XX ; Start 05/17/17 at 15:00 Glucose (Glutose) 15 gm Q15M PRN PO DECREASED GLUCOSE; Start 05/17/17 at 15:00 Glucose (Glutose) 22.5 gm Q15M PRN PO DECREASED GLUCOSE; Start 05/17/17 at 15:00 Dextrose (D50w Syringe) 25 ml Q15M PRN IV DECREASED GLUCOSE; Start 05/17/17 at 15:00 Dextrose (D50w Syringe) 50 ml Q15M PRN IV DECREASED GLUCOSE Last administered on 05/18/17 20:01; Admin Dose 50 ML; Start 05/17/17 at 15:00 Glucagon (Glucagen) 1 mg Q15M PRN IM DECREASED GLUCOSE; Start 05/17/17 at 15:00 Glucose (Glutose) 15 gm Q15M PRN BUCCAL DECREASED GLUCOSE; Start 05/17/17 at 15: 00 Miscellaneous Information (Pending [facility] Order For Wound Care) This patient hoffman... PRN PRN XX WOUND CARE; Start 05/17/17 at 17:30 Hydralazine HCl (Apresoline) 10 mg Q6H PRN IV ELEVATED BLOOD PRESSURE Last administered on 05/18/17 00:07; Admin Dose 10 MG; Start 05/18/17 at 00:00 Pregabalin (Lyrica) 75 mg BID PO Last administered on 05/24/17 09:26; Admin Dose 75 MG; Start 05/19/17 at 11:00 Lisinopril (Zestril) 40 mg DAILY PO Last administered on 05/23/17 09:06; Admin Dose 40 MG; Start 05/19/17 at 11:30 Amlodipine Besylate (Norvasc) 10 mg DAILY PO Last administered on 05/24/17 09: 27; Admin Dose 10 MG; Start 05/19/17 at 11:30 Diagnostic Test (Pha) (Accu-Chek) 1 ea 02 XX Last administered on 05/24/17 02: 02; Admin Dose 1 EA; Start 05/21/17 at 02:00 Collagenase (Santyl) 1 applic DAILY TOP Last administered on 05/24/17 09:46; Admin Dose 1 APPLIC; Start 05/20/17 at 15:00 Bisacodyl (Dulcolax) 5 mg DAILY PO Last administered on 05/24/17 09:27; Admin Dose 5 MG; Start 05/22/17 at 09:00 Levofloxacin (Levaquin) 750 mg Q48H PO Last administered on 05/23/17 12:20; Admin Dose 750 MG; Start 05/23/17 at 12:00 Docusate Sodium (Colace) 100 mg DAILY PRN PO CONSTIPATION; Start 05/23/17 at 09 :00 Polyethylene Glycol (Miralax) 17 gm DAILY PO Last administered on 05/24/17 09: 28; Admin Dose 17 GM; Start 05/23/17 at 09:00 Zolpidem Tartrate (Ambien) 10 mg HS PRN PO INSOMNIA Last administered on 21:30; Admin Dose 10 MG; Start 05/23/17 at 21:00 Insulin Detemir (Levemir) 25 unit DAILY SC ; Start 05/25/17 at 09:00 Lactulose (Enulose) 20 gm Q8 PO Last administered on 05/24/17 14:13; Admin Dose 20 GM; Start 05/24/17 at 14:00 Bisacodyl (Dulcolax Supp) 10 mg DAILY PRN [place] CONSTIPATION; Start 05/24/17 at 15 :30 Mineral Oil (Fleet Mineral Oil Enema) 133 ml NOW PRN [place] constipation; Start at 20:00; Status RICHARD CULVER May 24, 2017 19:53
[2017-05-24] MEDS ORDERED: MINERAL OIL 133 ML ENEMA PR PRN (20:00)
[2017-05-25] MEDS: ACCUCHECK AT 2AM (Patients on SS coverage) XX SCH (01:24)
[2017-05-25 02:00] VITALS: BP 134/60; RESP 20
[2017-05-25] MEDS: HEPARIN 5,000 UNIT/0.5 ML VIAL SC SCH ×2 (07:58→20:47)
[2017-05-25] MEDS: INSULIN DETEMIR [LEVEMIR] 3ML CART SC SCH (08:00)
[2017-05-25] MEDS: INSULIN ASPART [NOVOLOG] 3 ML PEN SC SCH ×3 (08:01→16:27)
[2017-05-25] MEDS: ASCORBIC ACID 500 MG TAB PO SCH (08:02)
[2017-05-25] MEDS: Insulin NOVOLOG SS MILD Algorithm (SS with meals and bedtime) SC SCH ×4 (08:02→20:42)
[2017-05-25] MEDS: GABAPENTIN 100 MG CAP PO SCH ×2 (08:02→20:46)
[2017-05-25] MEDS: POLYETHYLENE GLYCOL 17 GM PACKET PO SCH (08:02)
[2017-05-25] MEDS: ZINC SULFATE 220 MG CAP PO SCH (08:03)
[2017-05-25] MEDS: PREGABALIN 75 MG CAP PO SCH ×2 (08:03→20:51)
[2017-05-25] MEDS: CALCIUM ACETATE 667 MG CAP PO SCH ×3 (08:03→17:19)
[2017-05-25] MEDS: BISACODYL (EC) 5 MG TAB PO SCH (08:03)
[2017-05-25] MEDS: ASPIRIN (EC) 81 MG TAB PO SCH (08:04)
[2017-05-25] MEDS: PANTOPRAZOLE (EC) 40 MG TAB PO SCH (08:04)
[2017-05-25] MEDS: AMLODIPINE 5 MG TAB PO SCH (08:04)
[2017-05-25] MEDS: LISINOPRIL 20 MG TAB PO SCH (08:05)
[2017-05-25 08:27] VITALS: BP 113/53; RESP 18
[2017-05-25] MEDS: LEVOFLOXACIN 750 MG TABLET PO SCH (12:04)
[2017-05-25 14:35] VITALS: BP 112/53; RESP 18
[2017-05-25] MEDS: COLLAGENASE 30 GM TUBE TOP SCH (16:00)
[2017-05-25 20:52] VITALS: BP 118/56; RESP 18
[2017-05-26] MEDS: ZOLPIDEM 5 MG TAB PO PRN (00:12)
[2017-05-26] MEDS: COLLAGENASE 30 GM TUBE TOP SCH (00:13)
[2017-05-26] MEDS: ACCUCHECK AT 2AM (Patients on SS coverage) XX SCH (01:15)
[2017-05-26 03:01] VITALS: BP 127/62; RESP 20
[2017-05-26 05:16] VITALS: BP_SYST 110; BP_SYST 111; BP_DIAS 53; BP_DIAS 54; PULSE 66
[2017-05-26 08:00] VITALS: BP 107/52; RESP 16
[2017-05-26] MEDS: GABAPENTIN 100 MG CAP PO SCH (08:24)
[2017-05-26] MEDS: ASCORBIC ACID 500 MG TAB PO SCH (08:25)
[2017-05-26] MEDS: PREGABALIN 75 MG CAP PO SCH (08:25)
[2017-05-26] MEDS: ZINC SULFATE 220 MG CAP PO SCH (08:25)
[2017-05-26] MEDS: CALCIUM ACETATE 667 MG CAP PO SCH ×3 (08:25→17:41)
[2017-05-26] MEDS: BISACODYL (EC) 5 MG TAB PO SCH (08:25)
[2017-05-26] MEDS: PANTOPRAZOLE (EC) 40 MG TAB PO SCH (08:25)
[2017-05-26] MEDS: ASPIRIN (EC) 81 MG TAB PO SCH (08:25)
[2017-05-26] MEDS: POLYETHYLENE GLYCOL 17 GM PACKET PO SCH (08:25)
[2017-05-26] MEDS: AMLODIPINE 5 MG TAB PO SCH (08:26)
[2017-05-26] MEDS: LISINOPRIL 20 MG TAB PO SCH (08:26)
[2017-05-26] MEDS: INSULIN ASPART [NOVOLOG] 3 ML PEN SC SCH ×3 (08:29→17:40)
[2017-05-26] MEDS: Insulin NOVOLOG SS MILD Algorithm (SS with meals and bedtime) SC SCH ×3 (08:29→17:41)
[2017-05-26] MEDS: INSULIN DETEMIR [LEVEMIR] 3ML CART SC SCH (08:30)
[2017-05-26] MEDS: HEPARIN 5,000 UNIT/0.5 ML VIAL SC SCH (08:31)
[2017-05-26 12:13] VITALS: BP 125/70
[2017-05-26 14:00] VITALS: BP 107/53; RESP 18
--- NOTE | 2017-05-26 14:27 | PN ---
Date/Time of Note Date/Time of Note DATE: 05/26/17 TIME: 14:26 Assessment/Plan VTE Prophylaxis VTE Prophylaxis Intervention: heparin Lines/Catheters Urinary Cath still in place: No Assessment/Plan Chief Complaint/Hosp Course 1. Acute on chronic respiratory distress secondary to volume overload and possible pneumonia: resolved 2. End stage renal disease on HD 3. Diabetes type 2 4. Leukocytosis likely secondary to pneumonia-resolved / IV antibiotics 5. Hypertension: suboptimal control 6. Debility secondary to comorbidities 7. Chronic wounds: Follows with vascular outpatient 8. Severe peripheral neuropathy 2/2 DM and ESRD 9. Opiod induced constipation PLAN: * Patient has been stable for d/c since 05/20. 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 Placement still pending * Continue hemodialysis per nephrology, continue antibiotics * Continue stool softeners, fiber and laxative, patient will have BM eventually , needs to be on good bowel regimen * Continue Lyrica for neuropathic pain, continue wound care per recommendations * Patient was on long-acting MS Contin every 3 hours as needed at detention, this is on hold, so far patient seems comfortable * Continue supportive care, find alternative placement, patient is stable for d/ c once found. * Continue in-house PT Prophylaxis: Heparin Problems: Subjective 24 Hr Interval Summary Constitutional: no complaints Exam/Review of Systems Vital Signs Vitals Vital Signs Date Time Temp Pulse Resp B/P Pulse Ox O2 Delivery O2 Flow Rate FiO2 05/26/17 12:13 125/70 05/26/17 11:47 Nasal Cannula 2.0 05/26/17 08:00 98.1 70 16 96 Intake and Output 05/25/17 05/25/17 05/26/17 15:00 23:00 07:00 Intake Total 840 ml 360 ml Balance 840 ml 360 ml Exam Constitutional: alert Respiratory: clear to auscultation Cardiovascular: regular rate and rhythm Gastrointestinal: soft, No distended Musculoskeletal: nl extremities to inspection Results Result Diagram: 05/23/17 0644 05/23/17 0644 Results 24 hrs Laboratory Tests Test 05/25/17 16:03 05/25/17 20:40 05/25/17 22:51 05/26/17 08:04 Bedside Glucose 70 147 144 214 Test 05/26/17 11:59 Bedside Glucose 133 Medications Medications Current Medications Ondansetron HCl (Zofran Inj) 4 mg Q6H PRN IV NAUSEA AND/OR VOMITING; Start 05/17 at 14:00 Acetaminophen (Tylenol Tab) 650 mg Q6H PRN PO PAIN LEVEL 1-3 OR FEVER Last administered on 05/19/17 10:32; Admin Dose 650 MG; Start 05/17/17 at 14:00 Acetaminophen/ Hydrocodone Bitart ([place] (5/325)) 1 tab Q6H PRN PO MODERATE PAIN LEVEL 4-6; Start 05/17/17 at 14:00 Morphine Sulfate (morphine) 2 mg Q4H PRN IV SEVERE PAIN LEVEL 7-10 Last administered on 05/24/17 12:38; Admin Dose 2 MG; Start 05/17/17 at 14:00 Ascorbic Acid (Vitamin C) 500 mg DAILY PO Last administered on 05/26/17 08:25 ; Admin Dose 500 MG; Start 05/17/17 at 15:00 Aspirin (Halfprin) 81 mg DAILY PO Last administered on 05/26/17 08:25; Admin Dose 81 MG; Start 05/17/17 at 15:00 Gabapentin (Neurontin) 100 mg BID PO Last administered on 05/26/17 08:24; Admin Dose 100 MG; Start 05/17/17 at 15:00 Hydralazine HCl (Apresoline) 50 mg Q4 PO Last administered on 05/26/17 12:11; Admin Dose 50 MG; Start 05/17/17 at 15:00 Ondansetron HCl (Zofran Tab) 4 mg Q6H PRN PO NAUSEA AND/OR VOMITING Last administered on 05/26/17 11:01; Admin Dose 4 MG; Start 05/17/17 at 14:30 Pantoprazole (Protonix Tab) 40 mg DAILY PO Last administered on 05/26/17 08:25 ; Admin Dose 40 MG; Start 05/17/17 at 15:00 Zinc Sulfate (Zinc Sulfate) 220 mg DAILY PO Last administered on 05/26/17 08: 25; Admin Dose 220 MG; Start 05/17/17 at 15:00 Heparin Sodium (Porcine) (Heparin (5000 Units/0.5 ml)) 5,000 unit BID SC Last administered on 05/26/17 08:31; Admin Dose 5,000 UNIT; Start 05/17/17 at 15:00 Miscellaneous Information 1 ea NOTE XX ; Start 05/17/17 at 15:00 Glucose (Glutose) 15 gm Q15M PRN PO DECREASED GLUCOSE; Start 05/17/17 at 15:00 Glucose (Glutose) 22.5 gm Q15M PRN PO DECREASED GLUCOSE; Start 05/17/17 at 15:00 Dextrose (D50w Syringe) 25 ml Q15M PRN IV DECREASED GLUCOSE; Start 05/17/17 at 15:00 Dextrose (D50w Syringe) 50 ml Q15M PRN IV DECREASED GLUCOSE Last administered on 05/18/17 20:01; Admin Dose 50 ML; Start 05/17/17 at 15:00 Glucagon (Glucagen) 1 mg Q15M PRN IM DECREASED GLUCOSE; Start 05/17/17 at 15:00 Glucose (Glutose) 15 gm Q15M PRN BUCCAL DECREASED GLUCOSE; Start 05/17/17 at 15: 00 Miscellaneous Information (Pending Santyl Order For Wound Care) This patient hoffman... PRN PRN XX WOUND CARE; Start 05/17/17 at 17:30 Hydralazine HCl (Apresoline) 10 mg Q6H PRN IV ELEVATED BLOOD PRESSURE Last administered on 05/18/17 00:07; Admin Dose 10 MG; Start 05/18/17 at 00:00 Pregabalin (Lyrica) 75 mg BID PO Last administered on 05/26/17 08:25; Admin Dose 75 MG; Start 05/19/17 at 11:00 Lisinopril (Zestril) 40 mg DAILY PO Last administered on 05/26/17 08:26; Admin Dose 40 MG; Start 05/19/17 at 11:30 Amlodipine Besylate (Norvasc) 10 mg DAILY PO Last administered on 05/26/17 08: 26; Admin Dose 10 MG; Start 05/19/17 at 11:30 Diagnostic Test (Pha) (Accu-Chek) 1 ea 02 XX Last administered on 05/24/17 02: 02; Admin Dose 1 EA; Start 05/21/17 at 02:00 Collagenase (Santyl) 1 applic DAILY TOP Last administered on 05/26/17 00:13; Admin Dose 1 APPLIC; Start 05/20/17 at 15:00 Bisacodyl (Dulcolax) 5 mg DAILY PO Last administered on 05/26/17 08:25; Admin Dose 5 MG; Start 05/22/17 at 09:00 Levofloxacin (Levaquin) 750 mg Q48H PO Last administered on 05/25/17 12:04; Admin Dose 750 MG; Start 05/23/17 at 12:00 Docusate Sodium (Colace) 100 mg DAILY PRN PO CONSTIPATION; Start 05/23/17 at 09 :00 Polyethylene Glycol (Miralax) 17 gm DAILY PO Last administered on 05/26/17 08: 25; Admin Dose 17 GM; Start 05/23/17 at 09:00 Zolpidem Tartrate (Ambien) 10 mg HS PRN PO INSOMNIA Last administered on 00:12; Admin Dose 10 MG; Start 05/23/17 at 21:00 Insulin Detemir (Levemir) 25 unit DAILY SC Last administered on 05/26/17 08:30 ; Admin Dose 25 UNIT; Start 05/25/17 at 09:00 Bisacodyl (Dulcolax Supp) 10 mg DAILY PRN [place] CONSTIPATION; Start 05/24/17 at 15 :30 Mineral Oil (Fleet Mineral Oil Enema) 133 ml DAILY PRN [place] constipation Last administered on 05/24/17 22:20; Admin Dose 133 ML; Start 05/24/17 at 20:00 RADHA DHILLON May 26, 2017 14:27
--- NOTE | 2017-05-26 16:40 | CONS ---
Date/Time of Note Date/Time of Note DATE: 05/26/17 TIME: 16:39 Assessment/Plan Assessment/Plan Chief Complaint/Hosp Course - ESRD on hemodialysis @ [facility] Dialysis - CAD / CHF / Volume overloaded - DM - Recent history of cellulitis / On Abx - Anemia - Obesity - High Cholesterol PLAN: - Plan for dialysis in AM - Needs PT/OT - EPOGEN to keep Hgb ~ 10 - Check Iron status - IV Abx Problems: Consultation Date/Type/Reason Admit Date/Time May 17, 2017 at 12:21 Initial Consult Date 05/19/17 Type of Consultation: NEPHROLOGY 24 HR Interval Summary Constitutional: improved, no complaints Exam/Review of Systems Vital Signs Vitals Vital Signs Date Time Temp Pulse Resp B/P Pulse Ox O2 Delivery O2 Flow Rate FiO2 05/26/17 14:00 98.4 75 18 107/53 96 05/26/17 11:47 Nasal Cannula 2.0 Intake and Output 05/25/17 05/25/17 05/26/17 15:00 23:00 07:00 Intake Total 840 ml 360 ml Balance 840 ml 360 ml Exam Constitutional: alert, oriented Psych: no complaints Head: normocephalic Respiratory: crackles/rales Cardiovascular: edema, systolic murmur Gastrointestinal: soft Results Result Diagram: 05/23/17 0644 05/23/17 0644 Results 24 hrs Laboratory Tests Test 05/25/17 20:40 05/25/17 22:51 05/26/17 08:04 05/26/17 11:59 Bedside Glucose 147 144 214 133 Medications Medications Current Medications Ondansetron HCl (Zofran Inj) 4 mg Q6H PRN IV NAUSEA AND/OR VOMITING; Start 05/17 at 14:00 Acetaminophen (Tylenol Tab) 650 mg Q6H PRN PO PAIN LEVEL 1-3 OR FEVER Last administered on 05/19/17 10:32; Admin Dose 650 MG; Start 05/17/17 at 14:00 Acetaminophen/ Hydrocodone Bitart ([place] (5/325)) 1 tab Q6H PRN PO MODERATE PAIN LEVEL 4-6; Start 05/17/17 at 14:00 Morphine Sulfate (morphine) 2 mg Q4H PRN IV SEVERE PAIN LEVEL 7-10 Last administered on 05/24/17 12:38; Admin Dose 2 MG; Start 05/17/17 at 14:00 Ascorbic Acid (Vitamin C) 500 mg DAILY PO Last administered on 05/26/17 08:25 ; Admin Dose 500 MG; Start 05/17/17 at 15:00 Aspirin (Halfprin) 81 mg DAILY PO Last administered on 05/26/17 08:25; Admin Dose 81 MG; Start 05/17/17 at 15:00 Gabapentin (Neurontin) 100 mg BID PO Last administered on 05/26/17 08:24; Admin Dose 100 MG; Start 05/17/17 at 15:00 Hydralazine HCl (Apresoline) 50 mg Q4 PO Last administered on 05/26/17 12:11; Admin Dose 50 MG; Start 05/17/17 at 15:00 Ondansetron HCl (Zofran Tab) 4 mg Q6H PRN PO NAUSEA AND/OR VOMITING Last administered on 05/26/17 11:01; Admin Dose 4 MG; Start 05/17/17 at 14:30 Pantoprazole (Protonix Tab) 40 mg DAILY PO Last administered on 05/26/17 08:25 ; Admin Dose 40 MG; Start 05/17/17 at 15:00 Zinc Sulfate (Zinc Sulfate) 220 mg DAILY PO Last administered on 05/26/17 08: 25; Admin Dose 220 MG; Start 05/17/17 at 15:00 Heparin Sodium (Porcine) (Heparin (5000 Units/0.5 ml)) 5,000 unit BID SC Last administered on 05/26/17 08:31; Admin Dose 5,000 UNIT; Start 05/17/17 at 15:00 Miscellaneous Information 1 ea NOTE XX ; Start 05/17/17 at 15:00 Glucose (Glutose) 15 gm Q15M PRN PO DECREASED GLUCOSE; Start 05/17/17 at 15:00 Glucose (Glutose) 22.5 gm Q15M PRN PO DECREASED GLUCOSE; Start 05/17/17 at 15:00 Dextrose (D50w Syringe) 25 ml Q15M PRN IV DECREASED GLUCOSE; Start 05/17/17 at 15:00 Dextrose (D50w Syringe) 50 ml Q15M PRN IV DECREASED GLUCOSE Last administered on 05/18/17 20:01; Admin Dose 50 ML; Start 05/17/17 at 15:00 Glucagon (Glucagen) 1 mg Q15M PRN IM DECREASED GLUCOSE; Start 05/17/17 at 15:00 Glucose (Glutose) 15 gm Q15M PRN BUCCAL DECREASED GLUCOSE; Start 05/17/17 at 15: 00 Miscellaneous Information (Pending Santyl Order For Wound Care) This patient hoffman... PRN PRN XX WOUND CARE; Start 05/17/17 at 17:30 Hydralazine HCl (Apresoline) 10 mg Q6H PRN IV ELEVATED BLOOD PRESSURE Last administered on 05/18/17 00:07; Admin Dose 10 MG; Start 05/18/17 at 00:00 Pregabalin (Lyrica) 75 mg BID PO Last administered on 05/26/17 08:25; Admin Dose 75 MG; Start 05/19/17 at 11:00 Lisinopril (Zestril) 40 mg DAILY PO Last administered on 05/26/17 08:26; Admin Dose 40 MG; Start 05/19/17 at 11:30 Amlodipine Besylate (Norvasc) 10 mg DAILY PO Last administered on 05/26/17 08: 26; Admin Dose 10 MG; Start 05/19/17 at 11:30 Diagnostic Test (Pha) (Accu-Chek) 1 ea 02 XX Last administered on 05/24/17 02: 02; Admin Dose 1 EA; Start 05/21/17 at 02:00 Collagenase (Santyl) 1 applic DAILY TOP Last administered on 05/26/17 00:13; Admin Dose 1 APPLIC; Start 05/20/17 at 15:00 Bisacodyl (Dulcolax) 5 mg DAILY PO Last administered on 05/26/17 08:25; Admin Dose 5 MG; Start 05/22/17 at 09:00 Levofloxacin (Levaquin) 750 mg Q48H PO Last administered on 05/25/17 12:04; Admin Dose 750 MG; Start 05/23/17 at 12:00 Docusate Sodium (Colace) 100 mg DAILY PRN PO CONSTIPATION; Start 05/23/17 at 09 :00 Polyethylene Glycol (Miralax) 17 gm DAILY PO Last administered on 05/26/17 08: 25; Admin Dose 17 GM; Start 05/23/17 at 09:00 Zolpidem Tartrate (Ambien) 10 mg HS PRN PO INSOMNIA Last administered on 00:12; Admin Dose 10 MG; Start 05/23/17 at 21:00 Insulin Detemir (Levemir) 25 unit DAILY SC Last administered on 05/26/17 08:30 ; Admin Dose 25 UNIT; Start 05/25/17 at 09:00 Bisacodyl (Dulcolax Supp) 10 mg DAILY PRN [place] CONSTIPATION; Start 05/24/17 at 15 :30 Mineral Oil (Fleet Mineral Oil Enema) 133 ml DAILY PRN [place] constipation Last administered on 05/24/17 22:20; Admin Dose 133 ML; Start 05/24/17 at 20:00 ANIBAL ALMANZAR MD May 26, 2017 16:40
[2017-05-26] MEDS ORDERED: NOVO3I SC (17:42)
[2017-05-26] MEDS ORDERED: INSU100I27 SC (17:42)
--- NOTE | 2017-05-26 18:24 | DS ---
Date/Time of Note Date/Time of Note DATE: 05/26/17 TIME: 18:20 Discharge Summary Admission/Discharge Info Admit Date/Time May 17, 2017 at 12:21 Discharge Date/Time Discharge Diagnosis 1. Acute on chronic respiratory distress secondary to volume overload and possible pneumonia: resolved 2. End stage renal disease on HD 3. Diabetes type 2 4. Leukocytosis likely secondary to pneumonia-resolved / IV antibiotics 5. Hypertension: suboptimal control 6. Debility secondary to comorbidities SNF placement 7. Chronic wounds: Follows with vascular outpatient 8. Severe peripheral neuropathy 2/2 DM and ESRD 9. Opiod induced constipation-resolved Patient Condition: Good Hospital Course Patient is a 61-year-old female with history of end-stage renal disease with diabetes hypertension and debility. Patient presents with shortness of breath secondary to volume overload and pneumonia. Patient's condition improved with antibiotics and dialysis and case management arranged for placement in a alf facility. The discharge patient's vitals labs physical exam are stable, she had no acute complaints. Home Meds Active Scripts Insulin Aspart* (Novolog Insulin Pen*) 100 Unit/Ml Soln, 10 UNIT SC WITH MEALS, #1 VIAL Prov:JACQUIEMELISSA MCGUIREAni 05/26/17 Insulin Detemir (Levemir Flextouch) 100 Unit/1 Ml Insuln.pen, 25 UNIT SC DAILY, #1 VIAL Prov:JACQUIERADHA 05/26/17 Amlodipine Besylate* (Norvasc*) 5 Mg Tablet, 10 MG PO DAILY for 30 Days, TAB 2 Refills Prov:CESARRICHARD 05/19/17 Reported Medications Calcium Acetate* (Calcium Acetate*) 667 Mg Capsule, 1334 MG PO WITH MEALS, #60 CAP 04/07/17 Zinc Sulfate* (Zinc Sulfate*) 220 Mg Tablet, 220 MG PO DAILY, TAB 04/07/17 Ascorbic Acid* (Vitamin C*) 500 Mg Capsule.sa, 500 MG PO DAILY, CAP 04/07/17 Hydralazine Hcl* (Hydralazine Hcl*) 50 Mg Tab, 50 MG PO Q4H, #60 TAB TAKE IF SBP>170 DX 04/07/17 Morphine Sulfate (Morphine Sulfate ER) 10 Mg Cap.er.pel, 10 MG PO Q3H Y for PRN , CAP 04/07/17 Gabapentin* (Gabapentin*) 100 Mg Capsule, 100 MG PO BID, #60 CAP 04/07/17 Ondansetron Hcl* (Zofran*) 4 Mg Tablet, 4 MG PO Q6H Y for NAUSEA AND OR VOMITING , TAB 04/07/17 Pantoprazole* (Protonix*) 40 Mg Tablet.dr, 40 MG PO DAILY, TAB 04/07/17 Aspirin* (Aspirin* (EC)) 81 Mg Tablet.dr, 81 MG PO DAILY, TAB 12/12/14 Discontinued Reported Medications Insulin Aspart* (Novolog Insulin Pen*) 100 Unit/Ml Soln, 16 UNIT SC WITH MEALS, EA 04/07/17 Insulin Detemir (Levemir Flextouch) 100 Unit/1 Ml Insuln.pen, 26 UNIT SQ Q12H 04/07/17 Follow-up Plan Follow with physicians at the nursing facility Primary Care Provider Not On Staff Doctor Time spent on discharge: > 30 minutes Pending Labs Laboratory Tests Test 05/25/17 20:40 05/25/17 22:51 05/26/17 08:04 05/26/17 11:59 Bedside Glucose 147mg/dL (70-220) 144mg/dL (70-220) 214mg/dL (70-220) 133mg/dL (70-220) Test 05/26/17 17:34 Bedside Glucose 187mg/dL (70-220) RADHA DHILLON May 26, 2017 18:24
[2017-05-26] MEDS ORDERED: LISI40TA9 PO (18:58)
[2017-05-26] MEDS ORDERED: LISI20TA11 PO (18:58)
[2017-05-26 20:24] VITALS: BP 132/63; RESP 18
--- NOTE | 2017-05-28 10:47 | CONS ---
Date/Time of Note Date/Time of Note DATE: 05/28/17 TIME: 10:44 Consultation Date/Type/Reason Admit Date/Time May 17, 2017 at 12:21 Date of Consultation: May 21, 2017 Type of Consultation: POdiatry Reason for Consultation Ulceration. posterior calcaneus, left foot. 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
--- NOTE | 2017-05-28 12:45 | CONS ---
DATE OF ADMISSION: 05/17/2017 DATE OF CONSULTATION: 05/21/2017 HISTORY OF PRESENT ILLNESS: This is a 61-year-old female who I am seeing for the first time with peripheral vascular disease and multiple medical problems including kidney failure and peripheral vascular disease, and she was admitted to the telemetry unit. PHYSICAL EXAMINATION: MUSCULOSKELETAL: There are no gross abnormalities noted. DERMATOLOGIC: There is an eschar that is approximately 5 x 4 x 0.5 cm noted on the plantar posterior aspect of the left heel. The eschar appears to be dry at this time. There is localized erythema, but no ascending cellulitis noted. There is no drainage noted. NEUROLOGIC: The patient demonstrates neuropathy, confirmed with a 5.07 monofilament. VASCULAR: Plus 2/4 for dorsalis pedis and posterior tibial pulses bilaterally, ad 2/4 for posterior tibial bilaterally. Subpapillary venous plexus filling time approximately 7 seconds. ASSESSMENT: Peripheral vascular eschar ulceration of the posterior plantar aspect of the left heel. PLAN: We are going to start this patient on Santyl ointment to be applied every day over the area, to see if she can loosen up the eschar. She will keep pressure off of the area via heel cushions. We will follow this patient in approximately 1 week. If she is discharged, we will follow in the APC. If she is in- house, we will see her. Dictated By: Rufus Rudolph DPM /laura/jessica /Document#: [id number]
== END 2017-05-26 20:31 | DRG 193 ==
LOC: E/R 07:43 → TEL 12:21 → PP2 05-24 06:55
PROVIDERS: ADMIT Internal Medicine; ATTEND Internal Medicine
PROC: 5A1D60Z (ICD-10-PCS; principal; 2017-05-17)
DX: J18.9 Pneumonia, unspecified organism (principal); N18.6 End stage renal disease; I13.2 Hypertensive heart and chronic kidney disease with heart failure and with stage 5 chronic kidney disease, or end stage renal disease; E11.22 Type 2 diabetes mellitus with diabetic chronic kidney disease; Z68.41 Body mass index [BMI] 40.0-44.9, adult; L97.419 Non-pressure chronic ulcer of right heel and midfoot with unspecified severity; E66.01 Morbid (severe) obesity due to excess calories; R53.81 Other malaise; E11.42 Type 2 diabetes mellitus with diabetic polyneuropathy; K59.03 Drug induced constipation; D64.9 Anemia, unspecified; E78.00 Pure hypercholesterolemia, unspecified; E87.70 Fluid overload, unspecified; E11.621 Type 2 diabetes mellitus with foot ulcer; I25.10 Atherosclerotic heart disease of native coronary artery without angina pectoris; R06.00 Dyspnea, unspecified; E11.51 Type 2 diabetes mellitus with diabetic peripheral angiopathy without gangrene; Z99.2 Dependence on renal dialysis; Z79.82 Long term (current) use of aspirin; Z79.4 Long term (current) use of insulin; T40.2X5A Adverse effect of other opioids, initial encounter; Y92.230 Patient room in hospital as the place of occurrence of the external cause
CPT/HCPCS: 36415; 71010; 80048; 80053; 82962; 83605; 83735; 83880; 84443; 84484; 85025; 85610; 87040; 90935; 93005; 96365; 96367; 96375; 97162; J0360; J0456; J0696; J1644; J1815; J1956; J2270; J2405; J3480; J7042; Q4081

== ENCOUNTER 2018-11-17 21:37 | Inpatient (IN) | payer BC, OTHER ==
[~2018-11-17] VITALS: Ht 152.4 cm; Wt 91.5 kg
[~2018-11-17 21:37] MED LIST changes: +ASPI-1046 PO; -ASPI-664 PO; +INSU100I27 SC; -INSU100I27 SQ; +LISI40TA3 PO
[2018-11-17] MEDS ORDERED: morphine 4 MG/ML VIAL IV STA (21:53)
[2018-11-17] MEDS ORDERED: VANCOMYCIN 1 GM (PMX) 250 ML IVPB STA (21:53)
[2018-11-17] MEDS ORDERED: CEFEPIME 1GM/50 ML (PMX) 50 ML IVPB STA (21:53)
[2018-11-17] MEDS ORDERED: ONDANSETRON 4 MG INJ IV STA (21:53)
[2018-11-17] MEDS ORDERED: ALBUTEROL 0.083% (NEB) 2.5 MG/3 ML AMP INH ONE (22:00)
--- NOTE | 2018-11-17 22:38 | ERD ---
ER Documentation Chief Complaint Chief Complaint BIB private ambulance from [facility],SOB,HD MWF,O2 dependent 4 lpm NC HPI This is a 62-year-old dialysis patient who was sent for bilateral pulmonary infiltrates by Dr. Bard hay. The patient had a chest x-ray yesterday because of shortness of breath. She denies any cough or fever. She states she had dialysis yesterday. She is having some shortness of breath at rest that is mild with some orthopnea. No GI symptoms or neurological symptoms ROS All systems reviewed and are negative except as per history of present illness. Medications Home Meds Active Scripts Lisinopril* (Lisinopril*) 40 Mg Tablet, 40 MG PO DAILY, #30 TAB Prov:RADHA DHILLON 05/26/17 Insulin Aspart* (Novolog Insulin Pen*) 100 Unit/Ml Soln, 10 UNIT SC WITH MEALS, #1 VIAL Prov:RADHA DHILLON 05/26/17 Insulin Detemir (Levemir Flextouch) 100 Unit/1 Ml Insuln.pen, 25 UNIT SC DAILY, #1 VIAL Prov:RADHA DHILLON 05/26/17 Amlodipine Besylate* (Norvasc*) 5 Mg Tablet, 10 MG PO DAILY for 30 Days, TAB 2 Refills Prov:CESARRICHARD 05/19/17 Reported Medications Calcium Acetate* (Calcium Acetate*) 667 Mg Capsule, 1334 MG PO WITH MEALS, #60 CAP 04/07/17 Zinc Sulfate* (Zinc Sulfate*) 220 Mg Tablet, 220 MG PO DAILY, TAB 04/07/17 Ascorbic Acid* (Vitamin C*) 500 Mg Capsule.sa, 500 MG PO DAILY, CAP 04/07/17 Hydralazine Hcl* (Hydralazine Hcl*) 50 Mg Tab, 50 MG PO Q4H, #60 TAB TAKE IF SBP>170 DX 04/07/17 Morphine Sulfate (Morphine Sulfate ER) 10 Mg Cap.er.pel, 10 MG PO Q3H PRN for PRN, CAP 04/07/17 Gabapentin* (Gabapentin*) 100 Mg Capsule, 100 MG PO BID, #60 CAP 04/07/17 Ondansetron Hcl* (Zofran*) 4 Mg Tablet, 4 MG PO Q6H PRN for NAUSEA AND OR VOMITING, TAB 04/07/17 Pantoprazole* (Protonix*) 40 Mg Tablet.dr, 40 MG PO DAILY, TAB 04/07/17 Aspirin* (Aspirin* (EC)) 81 Mg Tablet.dr, 81 MG PO DAILY, TAB 12/12/14 Allergies Allergies: Coded Allergies: codeine (Verified Allergy, Unknown, 05/17/17) PT TAKES MORPHINE AT HOME, HAS HAD HYDROCODONE AT [facility] IN A PREVIOUS VISIT PMhx/Soc History of Surgery: Yes (r &l carpal tunnel sx,lle sx) Anesthesia Reaction: No Hx Neurological Disorder: No Hx Respiratory Disorders: Yes (pna) Hx Cardiac Disorders: Yes (htn, chf, ble edema chronic) Hx Psychiatric Problems: Yes (depression) Hx Miscellaneous Medical Probl: Yes (ESRD<DM, htn,chronic wound,L thigh wound, RUE fistula) Hx Alcohol Use: No Hx Substance Use: No Hx Tobacco Use: No Smoking Status: Never smoker FmHx Family History: No coronary disease Physical Exam Vitals Vital Signs Date Temp Pulse Resp B/P (MAP) Pulse Ox O2 O2 Flow FiO2 Time Delivery Rate 11/17/18 70 25 180/67 100 Nasal 3.0 22:24 (104) Cannula 11/17/18 Nasal 4 22:23 Cannula 11/17/18 Nasal 3 22:23 Cannula 11/17/18 67 24 97 Nasal 3.0 22:06 Cannula 11/17/18 97 3.0 22:06 11/17/18 97.9 69 18 188/79 96 21:38 (115) Physical Exam Const: Well-developed, well-nourished Head: Atraumatic, normocephalic Eyes: Normal Conjunctiva, PERRLA, EOMI, normal sclera, no nystagmus ENT: Normal External Ears, Nose and Mouth, moist mucus membranes. Neck: Full range of motion. No meningismus, no lymphadenopathy. Resp: Slight increased work of breathing with decreased breath sounds in the scattered lung swartz Cardio: Regular rate and rhythm, no murmurs, S1 S2 present Abd: Soft, non tender x 4, non distended. Normal bowel sounds, no guarding or rebound, no pulsitile abdominal masses or bruits Skin: No petechiae or rashes, no ecchymosis , no maculopapular rash Back: No midline or flank tenderness Ext: No cyanosis, or edema, FROM x 4, normal inspection, neurovascularly intact x 4 Neur: Awake and alert, STR 5/5 x 4, sensation intact x 4, no focal findings, cerebellum intact Psych: Normal Mood and Affect Results 24 hrs Laboratory Tests Test 11/17/18 22:16 11/17/18 22:20 White Blood Count Pending Red Blood Count Pending Hemoglobin Pending Hematocrit Pending Mean Corpuscular Volume Pending Mean Corpuscular Hemoglobin Pending Mean Corpuscular Hemoglobin Concent Pending Red Cell Distribution Width Pending Platelet Count Pending Mean Platelet Volume Pending POC Venous Lactate 1.7 mmol/L Current Medications Medications Dose Sig/Memo Start Time Status Last (Trade) Ordered Route PRN Stop Time Admin Dose Reason Admin Albuterol 7.5 mg ONCE ONCE 11/17/18 DC 11/17/18 (Proventil INH 22:00 11/17/18 22:06 0.083% (Neb)) 22:01 Cefepime HCl 50 ml @ ONCE STAT 11/17/18 DC 100 mls/hr IVPB 21:53 11/17/18 22:22 Vancomycin 250 ml @ ONCE STAT 11/17/18 HCl 125 mls/hr IVPB 21:53 11/17/18 23:52 Morphine 4 mg ONCE STAT 11/17/18 DC Sulfate IV 21:53 11/17/18 (morphine) 21:55 Ondansetron 4 mg ONCE STAT 11/17/18 DC HCl (Zofran IV 21:53 11/17/18 Inj) 21:56 DELMAR MARIE DO Nov 17, 2018 22:38
[2018-11-18] VITALS (21 sets, daily range): BP systolic 121–178; BP diastolic 56–77; PULSE 58–86; RESP 16–20; Ht 152.4 cm; Wt 91.5 kg
[2018-11-18] MEDS ORDERED: NACL 0.9% 3 ML SYG IV SCH
[2018-11-18] MEDS ORDERED: ONDANSETRON 4 MG INJ IV PRN
[2018-11-18] MEDS ORDERED: morphine 2 MG INJ IV PRN
[2018-11-18] MEDS ORDERED: CEFEPIME 2GM/50 ML (PMX) 50 ML IVPB SCH (01:00)
[2018-11-18] MEDS: HEPARIN 5,000 UNIT/1 ML VIAL SC SCH ×3 (06:51→22:17)
--- NOTE | 2018-11-18 07:35 | NUR ---
PATIENT AWAKE ALERT ORIENTED X4 NO CHEST PAIN AT THIS TIME . VITALS WNL . NO SIGN OF DISTRESS ADM CARE DONE DRESSING DONE SACRAL . WOUND CARE CONSULT . REPOSITIONED ENDORSED TO AM SHIFT TO CONTINUE CARE .
[2018-11-18] MEDS: FAMOTIDINE 20 MG INJ IV SCH (08:46)
[2018-11-18] MEDS: ONDANSETRON 4 MG INJ IV PRN (08:55)
[2018-11-18] MEDS ORDERED: AMIO200T4 PO (09:59)
[2018-11-18] MEDS ORDERED: AMLO5TAB4 PO (10:06)
[2018-11-18] MEDS ORDERED: CLON-379 PO (10:06)
[2018-11-18] MEDS ORDERED: ATOR20TA38 PO (10:06)
[2018-11-18] MEDS ORDERED: DOCU-144 PO (10:06)
[2018-11-18] MEDS ORDERED: APIX2.5T PO (10:06)
[2018-11-18] MEDS ORDERED: CITA10TA5 PO (10:06)
[2018-11-18] MEDS ORDERED: LACT1CAP4 PO (10:18)
[2018-11-18] MEDS ORDERED: ALBU2.5V3 NEB (10:18)
[2018-11-18] MEDS ORDERED: PRED5DRO20 RIGHT EYE (10:18)
[2018-11-18] MEDS ORDERED: SODI126M NASAL (10:18)
[2018-11-18] MEDS ORDERED: CLOT45CR6 VAG (10:18)
[2018-11-18] MEDS ORDERED: LEVO100T8 PO (10:30)
[2018-11-18] MEDS ORDERED: SIME80TA53 PO (10:30)
[2018-11-18] MEDS ORDERED: LOPE-123 PO (10:30)
[2018-11-18] MEDS ORDERED: FOLI-49 PO (10:30)
[2018-11-18] MEDS ORDERED: ASC500 PO (10:30)
[2018-11-18] MEDS ORDERED: LORA1TAB PO (10:30)
[2018-11-18] MEDS ORDERED: ACET325T45 PO (10:30)
[2018-11-18] MEDS ORDERED: ZINC220C5 PO (10:30)
[2018-11-18] MEDS ORDERED: TRAZ-111 PO (10:30)
[2018-11-18] MEDS ORDERED: TRAM50TA2 PO (10:30)
[2018-11-18] MEDS ORDERED: LEVEM SQ (10:30)
[2018-11-18] MEDS ORDERED: LOSA50TA14 PO (10:30)
[2018-11-18] MEDS ORDERED: POLY17PO28 PO (10:37)
[2018-11-18] MEDS ORDERED: MIDO10TA PO (10:37)
[2018-11-18] MEDS ORDERED: PANT40TA4 PO (10:37)
[2018-11-18] MEDS ORDERED: MULTI PO (10:37)
[2018-11-18] MEDS ORDERED: METO25TA4 PO (10:37)
--- NOTE | 2018-11-18 11:16 | NUR ---
NUTRITION NOTE: Consult received 2/2 pressure injuries. Pt noted with SDTI at sacrococcyx and L heel. Noted pt with ESRD, on HD 3x/week. Tolerating PO, however has some nausea. LBM 11/17, normal. 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 Agreeable to adding Novasource Renal PO supplement at dinner. Rec to add daily Renavite to help promote wound healing.
--- NOTE | 2018-11-18 12:19 | HP ---
Date/Time of Note Date/Time of Note DATE: 11/18/18 TIME: 12:02 Assessment/Plan VTE Prophylaxis Risk score (from [facility] [place] risk: 6 SCD applied (from [facility] [place] Yes Pharmacological prophylaxis: heparin Lines/Catheters IV Catheter Type (from [facility]): Saline Lock Assessment/Plan Assessment/Plan -Healthcare associated pneumonia, start broad-spectrum antibiotics. Continue oxygen supplementation and breathing treatment. Dr. Guevara is asked to see patient in infection disease consultation. Dr. Louise will be following patients from pulmonology standpoint. -Hemodialysis dependent end-stage renal disease. Dr. Warren is asked to see patient from nephrology standpoint. -Diabetes mellitus type 2 hemoglobin A1c 6.0, continue Levemir and NovoLog per mild algorithm sliding scale. -Hypothyroidism, continue levothyroxine -Hypertension continue patient's antihypertensive medication from [facility] facility. -Hyperlipidemia, continue statin Further recommendations based on clinical course. Plan of care discussed with Dr. Mandel. Result Diagram: 11/18/18 0359 11/18/18 0359 Results 24hrs Laboratory Tests Test 11/17/18 22:16 11/17/18 22:20 11/18/18 03:59 White Blood Count 6.8 # 6.6 Red Blood Count 3.44 L 3.24 L Hemoglobin 10.1 L 9.5 L Hematocrit 33.5 L 31.7 L Mean Corpuscular Volume 97.4 97.8 Mean Corpuscular Hemoglobin 29.4 29.3 Mean Corpuscular Hemoglobin Concent 30.1 L 30.0 L Red Cell Distribution Width 17.1 H 17.2 H Platelet Count 208 # 189 Mean Platelet Volume 10.3 10.1 Immature Granulocytes % 0.300 0.300 Neutrophils % 70.5 76.9 Lymphocytes % 14.2 L 10.5 L Monocytes % 13.1 H 10.9 Eosinophils % 1.3 0.8 Basophils % 0.6 0.6 Nucleated Red Blood Cells % 0.0 0.0 Immature Granulocytes # 0.020 0.020 Neutrophils # 4.8 5.1 Lymphocytes # 1.0 0.7 L Monocytes # 0.9 0.7 Eosinophils # 0.1 0.1 Basophils # 0.0 0.0 Nucleated Red Blood Cells # 0.0 0.0 Prothrombin Time 15.4 H Prothrombin Time Ratio 1.2 INR International Normalized Ratio 1.21 Activated Partial Thromboplast Time 43.8 H Sodium Level 136 138 Potassium Level 4.4 4.8 Chloride Level 88 L 88 L Carbon Dioxide Level 35 H 34 H Anion Gap 13 16 H Blood Urea Nitrogen 31 H 32 H Creatinine 3.33 H 3.62 H Est Glomerular Filtrat Rate mL/min 14 L 13 L Glucose Level 125 220 Calcium Level 9.5 9.4 Total Bilirubin 0.0 L 0.0 L Direct Bilirubin 0.00 0.00 Indirect Bilirubin 0.0 0.0 Aspartate Amino Transf (AST/SGOT) 22 19 Alanine Aminotransferase (ALT/SGPT) < 6 L 16 Alkaline Phosphatase 171 H 157 H Troponin I 0.018 Total Protein 7.8 7.5 Albumin 4.1 3.9 Globulin 3.70 H 3.60 H Albumin/Globulin Ratio 1.10 1.08 POC Venous Lactate 1.7 Hemoglobin A1c 6.0 H Lactic Acid Level 0.9 HPI/ROS Admit Date/Time Admit Date/Time Nov 17, 2018 at 23:34 Hx of Present Illness The patient is a 62-year-old female with hemodialysis dependent end-stage renal disease 3 times per week Friday, coronary artery disease, garcia estive heart failure, hypertension, dyslipidemia, hypothyroidism, diabetes, neuropathy, peripheral vascular disease, functional quadriplegia, right eye blindness, and obesity. Patient had a history of a left medial thigh wound that she developed after varicose vein laser treatment which is currently healed. Patient was [facility] for shortness of breath. Patient complains of shortness of breath and severe generalized weakness. Patient is not ambulatory at baseline. Patient denies any pain denies any nausea vomiting diarrhea. Patient had her last dialysis on Friday. Chest x-ray revealed cardiomegaly, small bilateral pleural effusions and moderate pulmonary edema, differential diagnosis includes pneumonia. Patient was started on broad-spectrum antibiotics and admitted for further evaluation and management. ROS 12 point review of system is negative except for what mentioned in HPI PMH/Family/Social Past Medical History Medical History: diabetes, hypertension, renal disease, other (Morbid obesity, severe neuropathy) Medications Current Medications IV Flush (NS 3 ml) 3 ml PER PROTOCOL IV ; Start 11/18/18 at 00:00 Ondansetron HCl (Zofran Inj) 4 mg Q6H PRN IV NAUSEA AND/OR VOMITING Last administered on 11/18/18at 08:55; Admin Dose 4 MG; Start 11/18/18 at 00:00 Acetaminophen (Tylenol Tab) 650 mg Q6H PRN PO PAIN LEVEL 1-3 OR FEVER; Start 11/18/18 at 00:00 Morphine Sulfate (morphine) 2 mg Q4H PRN IV PAIN LEVEL 7-10; Start 11/18/18 at 00:00 Famotidine (Pepcid Iv) 20 mg DAILY IV Last administered on 11/18/18at 08:46; Admin Dose 20 MG; Start 11/18/18 at 09:00 Heparin Sodium (Porcine) (Heparin (5000 Units/1ml)) 5,000 unit Q8 SC Last administered on 11/18/18at 06:51; Admin Dose 5,000 UNIT; Start 11/18/18 at 06:00 Cefepime HCl 50 ml @ 100 mls/hr Q24H IVPB ; Start 11/18/18 at 01:00 Coded Allergies: codeine (Verified Allergy, Unknown, 05/17/17) PT TAKES MORPHINE AT HOME, HAS HAD HYDROCODONE AT [facility] IN A PREVIOUS VISIT Past Surgical History Past Surgical Hx: other (Status post cholecystectomy and abdominal hernia repair in July 2018, status post right upper extremity AV AV fistula [address] Velazquez,Right upper extremity AV fistula, left upper extremity tendon repair, left elbow surgery, carpal tunnel bilateral hand, right chest Perm-A-Cath and subsequent removal.) Family History Significant Family History: other (Father from respiratory problems, mother with breast cancer) Social History Alcohol Use: none Smoking Status: Never smoker Drug Use: none Exam/Review of Systems Vital Signs Vitals Vital Signs Date Temp Pulse Resp B/P (MAP) Pulse Ox O2 O2 Flow FiO2 Time Delivery Rate 11/18/18 97.8 69 17 178/77 90 11:20 (110) 11/18/18 Nasal 2.0 07:50 Cannula Intake and Output 11/17/18 11/17/18 11/18/18 1515:00 23:00 07:00 IntakeIntake Total 100 ml OutputOutput Total 0 ml BalanceBalance 100 ml Exam Constitutional: alert, oriented Head: normocephalic Eyes: other (Right eye blindness) Neck: supple Respiratory: diminished breath sounds Cardiovascular: regular rate and rhythm Gastrointestinal: soft, non-tender Musculoskeletal: nl extremities to inspection Extremities: normal pulses, other (Right upper extremity AV fistula) Neurological: nl mental status Skin: nl SIN Ledbetter Nov 18, 2018 12:13
[2018-11-18] MEDS ORDERED: morphine SULFATE/PF (2 MG/2 ML) SYG IV PRN (12:28)
[2018-11-18] MEDS ORDERED: VANCOMYCIN IV PER PHARMACY XX SCH (12:30)
[2018-11-18] MEDS ORDERED: ACETAMINOPHEN 325 MG TAB PO PRN ×2 (12:30)
--- NOTE | 2018-11-18 13:17 | NUR ---
VANCOMYCIN PER RX PROTOCOL 62 yo female 5'0" 91.5 kg vancomycin, cefepime for HCAP WBC 6.6 SCr 3.62 crcl 11 ESRD, HD dependent Started 1 gm 11/17/18 check random level in am
--- NOTE | 2018-11-18 13:18 | CONS ---
Date/Time of Note Date/Time of Note DATE: 11/18/18 TIME: 13:13 Assessment/Plan Assessment/Plan Assessment/Plan - ESRD Hemodialysis dependent - DM / DM Nephropathy - Pneumonia - Hypertension - CAD / CHF - Chronic Anemia - Respiratory Insufficiency - Hyperphosphatemia PLAN: Recent Discharge from a [facility] facility Will plan For dialysis today Monitor electrolytes IV Antibiotics Follow up with H/H Will recheck CXR today post Dialysis to get a better look at her lungs Will ask Obiee Consultant to arrange for Out patient dialysis. THANK YOU Bridger YUSUF Result Diagram: 11/18/18 0359 11/18/18 0359 Results 24hrs Laboratory Tests Test 11/17/18 22:16 11/17/18 22:20 11/18/18 03:59 11/18/18 12:36 White Blood Count 6.8 # 6.6 Red Blood Count 3.44 L 3.24 L Hemoglobin 10.1 L 9.5 L Hematocrit 33.5 L 31.7 L Mean Corpuscular Volume 97.4 97.8 Mean Corpuscular 29.4 29.3 Hemoglobin Mean Corpuscular 30.1 L 30.0 L Hemoglobin Concent Red Cell Distribution 17.1 H 17.2 H Width Platelet Count 208 # 189 Mean Platelet Volume 10.3 10.1 Immature Granulocytes % 0.300 0.300 Neutrophils % 70.5 76.9 Lymphocytes % 14.2 L 10.5 L Monocytes % 13.1 H 10.9 Eosinophils % 1.3 0.8 Basophils % 0.6 0.6 Nucleated Red Blood 0.0 0.0 Cells % Immature Granulocytes # 0.020 0.020 Neutrophils # 4.8 5.1 Lymphocytes # 1.0 0.7 L Monocytes # 0.9 0.7 Eosinophils # 0.1 0.1 Basophils # 0.0 0.0 Nucleated Red Blood 0.0 0.0 Cells # Prothrombin Time 15.4 H Prothrombin Time Ratio 1.2 INR International 1.21 Normalized Ratio Activated 43.8 H Partial Thromboplast Time Sodium Level 136 138 Potassium Level 4.4 4.8 Chloride Level 88 L 88 L Carbon Dioxide Level 35 H 34 H Anion Gap 13 16 H Blood Urea Nitrogen 31 H 32 H Creatinine 3.33 H 3.62 H Est Glomerular Filtrat 14 L 13 L Rate mL/min Glucose Level 125 220 Calcium Level 9.5 9.4 Total Bilirubin 0.0 L 0.0 L Direct Bilirubin 0.00 0.00 Indirect Bilirubin 0.0 0.0 Aspartate Amino 22 19 Transf (AST/SGOT) Alanine < 6 L 16 Aminotransferase (ALT/SG PT) Alkaline Phosphatase 171 H 157 H Troponin I 0.018 Total Protein 7.8 7.5 Albumin 4.1 3.9 Globulin 3.70 H 3.60 H Albumin/Globulin Ratio 1.10 1.08 POC Venous Lactate 1.7 Hemoglobin A1c 6.0 H Lactic Acid Level 0.9 Bedside Glucose 215 Consultation Date/Type/Reason Admit Date/Time Nov 17, 2018 at 23:34 Date of Consultation: Nov 18, 2018 Type of Consult NEPHROLOGY Reason for Consultation ESRD on Hemodialysis Hx of Present Illness 62 Female ESRD on Hemodialysis Had a long stay at a shelter Pulmonary facility who just came back to [facility] presented with SOB & possible pneumonia. Her Last dialysis was Friday11/16/2017. Constitutional: chills, requiring O2 Eyes: no complaints ENT: no complaints Cardiovascular: edema Skin: no complaints Psychological: no complaints Immunologic: no complaints Past Medical History Medical History: diabetes, hypertension, renal disease, other (Morbid obesity, severe neuropathy) Medications Current Medications IV Flush (NS 3 ml) 3 ml PER PROTOCOL IV ; Start 11/18/18 at 00:00 Ondansetron HCl (Zofran Inj) 4 mg Q6H PRN IV NAUSEA AND/OR VOMITING Last administered on 11/18/18at 08:55; Admin Dose 4 MG; Start 11/18/18 at 00:00 Acetaminophen (Tylenol Tab) 650 mg Q6H PRN PO PAIN LEVEL 1-3 OR FEVER; Start 11/18/18 at 00:00 Famotidine (Pepcid Iv) 20 mg DAILY IV Last administered on 11/18/18at 08:46; Admin Dose 20 MG; Start 11/18/18 at 09:00 Heparin Sodium (Porcine) (Heparin (5000 Units/1ml)) 5,000 unit Q8 SC Last administered on 11/18/18at 06:51; Admin Dose 5,000 UNIT; Start 11/18/18 at 06:00 Diagnostic Test (Pha) (Accu-Chek) 1 ea 02 XX ; Start 11/19/18 at 02:00 Insulin Aspart (Novolog Insulin Pen) NOVOLOG *MILD* ALGORITHM WITH MEALS BEDTIME SC ; Start 11/18/18 at 17:55 Cefepime HCl 50 ml @ 100 mls/hr Q12 IVPB ; Start 11/18/18 at 21:00 Vancomycin HCl (Vanco Iv Per Pharmacy) VANCOMYCIN PER PHARMACY PER PROTOCOL XX ; Start 11/18/18 at 12:30; Status UNV Morphine Sulfate (morphine SULFATE (PF)) 2 mg Q4H PRN IV PAIN LEVEL 7-10; Start 11/18/18 at 12:28 Acetaminophen (Tylenol Tab) 325 mg Q4H PRN PO MILD PAIN(1-3)OR ELEVATED TEMP; Start 11/18/18 at 12:30 Albuterol (Proventil 0.083% (Neb)) 2.5 mg Q6 PRN NEB WHEEZING AND SOB; Start 11/18/18 at 12:30 Amiodarone HCl (Cordarone) 200 mg DAILY PO ; Start 11/19/18 at 09:00 Amlodipine Besylate (Norvasc) 5 mg QHS PO ; Start 11/18/18 at 21:00 Apixaban (Eliquis) 2.5 mg BID PO ; Start 11/18/18 at 21:00; Status Future Hold Ascorbic Acid (Vitamin C) 500 mg DAILY PO ; Start 11/19/18 at 09:00 Atorvastatin Calcium (Lipitor) 20 mg QHS PO ; Start 11/18/18 at 21:00 Citalopram Hydrobromide (Celexa) 10 mg DAILY PO ; Start 11/19/18 at 09:00 Docusate Sodium (Colace) 200 mg QHS PO ; Start 11/18/18 at 21:00 Folic Acid (Folic Acid) 1 mg DAILY PO ; Start 11/19/18 at 09:00 Insulin Detemir (Levemir) 6 units QHS SC ; Start 11/18/18 at 21:00 Levothyroxine Sodium (Synthroid) 100 mcg BEFORE BREAKFAST PO ; Start 11/19/18 at 07:00 Lorazepam (Ativan) 1 mg Q8 PRN PO ANXIETY; Start 11/18/18 at 12:30 Losartan Potassium (Cozaar) 50 mg BID PO ; Start 11/18/18 at 21:00 Metoprolol Tartrate (Lopressor) 25 mg BID PO ; Start 11/18/18 at 21:00 Pantoprazole (Protonix Tab) 40 mg DAILY PO ; Start 11/19/18 at 09:00 Prednisolone Acetate (Pred-Forte 1%) 1 drop BID RIGHT EYE ; Start 11/18/18 at 21:00 Tramadol HCl (Ultram) 50 mg Q6H PRN PO PAIN; Start 11/18/18 at 12:30 Trazodone HCl (Desyrel) 50 mg QHS PO ; Start 11/18/18 at 21:00 Zinc Sulfate (Zinc Sulfate) 220 mg DAILY PO ; Start 11/19/18 at 09:00 Allergies: Coded Allergies: codeine (Verified Allergy, Unknown, 05/17/17) PT TAKES MORPHINE AT HOME, HAS HAD HYDROCODONE AT [facility] IN A PREVIOUS VISIT Past Surgical History Past Surgical Hx: other (Status post cholecystectomy and abdominal hernia repair in July 2018, status post right upper extremity AV AV fistula [address] Velazquez,Right upper extremity AV fistula, left upper extremity tendon repair, left elbow surgery, carpal tunnel bilateral hand, right chest Perm-A-Cath and subsequent removal.) Family History Significant Family History: no pertinent family hx Social History Alcohol Use: none Smoking Status: Never smoker Drug Use: none Exam/Review of Systems Vital Signs Vitals Vital Signs Date Temp Pulse Resp B/P (MAP) Pulse Ox O2 O2 Flow FiO2 Time Delivery Rate 11/18/18 97.8 69 17 178/77 90 11:20 (110) 11/18/18 Nasal 2.0 07:50 Cannula Intake and Output 11/17/18 11/17/18 11/18/18 1515:00 23:00 07:00 IntakeIntake Total 100 ml OutputOutput Total 0 ml BalanceBalance 100 ml Exam Constitutional: alert, oriented Neck: jvd Respiratory: crackles/rales, wheezing Cardiovascular: edema Gastrointestinal: soft Medications Medications Current Medications IV Flush (NS 3 ml) 3 ml PER PROTOCOL IV ; Start 11/18/18 at 00:00 Ondansetron HCl (Zofran Inj) 4 mg Q6H PRN IV NAUSEA AND/OR VOMITING Last administered on 11/18/18at 08:55; Admin Dose 4 MG; Start 11/18/18 at 00:00 Acetaminophen (Tylenol Tab) 650 mg Q6H PRN PO PAIN LEVEL 1-3 OR FEVER; Start 11/18/18 at 00:00 Famotidine (Pepcid Iv) 20 mg DAILY IV Last administered on 11/18/18at 08:46; Admin Dose 20 MG; Start 11/18/18 at 09:00 Heparin Sodium (Porcine) (Heparin (5000 Units/1ml)) 5,000 unit Q8 SC Last ad ministered on 11/18/18at 06:51; Admin Dose 5,000 UNIT; Start 11/18/18 at 06:00 Diagnostic Test (Pha) (Accu-Chek) 1 ea 02 XX ; Start 11/19/18 at 02:00 Insulin Aspart (Novolog Insulin Pen) NOVOLOG *MILD* ALGORITHM WITH MEALS BEDTIME SC ; Start 11/18/18 at 17:55 Cefepime HCl 50 ml @ 100 mls/hr Q12 IVPB ; Start 11/18/18 at 21:00 Vancomycin HCl (Vanco Iv Per Pharmacy) VANCOMYCIN PER PHARMACY PER PROTOCOL XX ; Start 11/18/18 at 12:30; Status UNV Morphine Sulfate (morphine SULFATE (PF)) 2 mg Q4H PRN IV PAIN LEVEL 7-10; Start 11/18/18 at 12:28 Acetaminophen (Tylenol Tab) 325 mg Q4H PRN PO MILD PAIN(1-3)OR ELEVATED TEMP; Start 11/18/18 at 12:30 Albuterol (Proventil 0.083% (Neb)) 2.5 mg Q6 PRN NEB WHEEZING AND SOB; Start 11/18/18 at 12:30 Amiodarone HCl (Cordarone) 200 mg DAILY PO ; Start 11/19/18 at 09:00 Amlodipine Besylate (Norvasc) 5 mg QHS PO ; Start 11/18/18 at 21:00 Apixaban (Eliquis) 2.5 mg BID PO ; Start 11/18/18 at 21:00; Status Future Hold Ascorbic Acid (Vitamin C) 500 mg DAILY PO ; Start 11/19/18 at 09:00 Atorvastatin Calcium (Lipitor) 20 mg QHS PO ; Start 11/18/18 at 21:00 Citalopram Hydrobromide (Celexa) 10 mg DAILY PO ; Start 11/19/18 at 09:00 Docusate Sodium (Colace) 200 mg QHS PO ; Start 11/18/18 at 21:00 Folic Acid (Folic Acid) 1 mg DAILY PO ; Start 11/19/18 at 09:00 Insulin Detemir (Levemir) 6 units QHS SC ; Start 11/18/18 at 21:00 Levothyroxine Sodium (Synthroid) 100 mcg BEFORE BREAKFAST PO ; Start 11/19/18 at 07:00 Lorazepam (Ativan) 1 mg Q8 PRN PO ANXIETY; Start 11/18/18 at 12:30 Losartan Potassium (Cozaar) 50 mg BID PO ; Start 11/18/18 at 21:00 Metoprolol Tartrate (Lopressor) 25 mg BID PO ; Start 11/18/18 at 21:00 Pantoprazole (Protonix Tab) 40 mg DAILY PO ; Start 11/19/18 at 09:00 Prednisolone Acetate (Pred-Forte 1%) 1 drop BID RIGHT EYE ; Start 11/18/18 at 21:00 Tramadol HCl (Ultram) 50 mg Q6H PRN PO PAIN; Start 11/18/18 at 12:30 Trazodone HCl (Desyrel) 50 mg QHS PO ; Start 11/18/18 at 21:00 Zinc Sulfate (Zinc Sulfate) 220 mg DAILY PO ; Start 11/19/18 at 09:00 ANIBAL ALMANZAR MD Nov 18, 2018 13:18
--- NOTE | 2018-11-18 13:38 | NUR ---
Benedicto called for HD today, spoke with Sheyla, staff confirmation #[id number], per MD order.
--- NOTE | 2018-11-18 14:17 | CONS ---
DATE OF ADMISSION: 11/17/2018 DATE OF CONSULTATION: 11/18/2018 TYPE OF CONSULTATION: Infectious disease. REASON FOR CONSULTATION: Antibiotic management. HISTORY OF PRESENT ILLNESS: Chaparrita Seth is a 62-year-old female who was admitted on 11/17/2018 wi th shortness of breath. Chest x-ray was done on 11/16/2018 which showed bilateral pulmonary infiltra ramana. She denies cough or fever. She had dialysis on 11/16/2018. She is having any shortness of juliana ath at rest that is mild with some orthopnea. Past problems include: 1. End-stage renal disease on hemodialysis. 2. Diabetes mellitus. 3. Hypertension. 4. Chronic wound. 5. Left thigh wound. 6. Right upper extremity fistula. 7. Depression. 8. Hypertension. 9. Bilateral lower extremity chronic edema. 10. Right and left carpal tunnel surgery. On admission, her white count was 6.8. Today, it is 6.6, H and H of 9.5 and 31.7, platelet count 189 ,000. BUN and creatinine is 32/3.62. Alkaline phosphatase of 157. She has cardiomegaly by chest x- ray, small bilateral pleural effusions, moderate pulmonary edema, moderate bilateral interstitial and patchy bibasilar airspace infiltrates. The patient was started on vancomycin and cefepime. Today, she was seen by nurse practitioner, Alexander. Dr. Mcdaniel is going to take care of her from a renal perspective. PHYSICAL EXAMINATION: GENERAL: She is a well-developed, well-nourished female, who is awake, responsive, in no acute distr ess. VITAL SIGNS: Stable. She is afebrile. SKIN: Without generalized rash. HEENT: Within normal limits. NECK: Supple. LYMPH NODES: None palpable. CHEST: Decreased breath sounds at the bases. HEART: Without murmur or gallop. ABDOMEN: Soft, nontender, nondistended without organosplenomegaly or masses. EXTREMITIES: Without cyanosis, clubbing or edema. RECTAL AND GENITAL: Deferred. NEUROLOGIC: No focal neurological abnormality. SKIN: She has right upper extremity fistula. She has a left thigh wound. IMPRESSION AND PLAN: The patient is currently admitted with probable pneumonia. We will continue ce fepime and vancomycin. I will dictate my findings to the hospitalist. Dictated By: LUCAS WAN MD, JD/VICTORINA Conf#: [id number] [facility]#: [id number] CC: PATTI MCQUEEN MD;*EndCC*
--- NOTE | 2018-11-18 14:18 | CONS ---
DATE OF ADMISSION: 11/17/2018 DATE OF CONSULTATION: 11/18/2018 ADDENDUM: I want to thank Dr. Mandel from the hospitalist and nurse practitioner, Alexander for as yesenia me to see this jeana lady in consultation. Dictated By: LUCAS WAN MD, JD/NTS Conf#: [id number] DID#: [id number] CC: PATTI MCQUEEN MD;*EndCC*
--- NOTE | 2018-11-18 16:02 | NUR ---
Benedicto called HD today is between 9-10 pm tonight, will inform patient.
--- NOTE | 2018-11-18 16:52 | CONS ---
DATE OF ADMISSION: 11/17/2018 DATE OF CONSULTATION: 11/18/2018 TYPE OF CONSULTATION: Pulmonary. REQUESTING PHYSICIAN: Tye Mandel MD HISTORY OF PRESENT ILLNESS: This is 62-year-old female patient who [facility] room yesterday with a history of increasing shortness of breath; however, the patient had no cough, no fever. She has no chest pain, no vomiting, no loss of consciousness. T he patient is known to have end-stage renal disease and has been on dialysis. She also has a history of hypertension, type 2 diabetes mellitus. She has a diastolic congestive heart failure. MEDICATIONS IN THE HALF-WAY: Include: 1. Lisinopril. 2. NovoLog insulin with meals. 3. Detemir insulin. 4. Amlodipine. 5. Calcium acetate. 6. Zinc sulfate. 7. Ascorbic acid. 8. Hydralazine. 9. Morphine sulfate p.r.n. for pain. 10. Gabapentin. 11. Zofran. 12. Protonix. 13. Aspirin. PERSONAL HABITS: She is a nonsmoker. No history of alcohol drinking. SOCIAL HISTORY: The [facility] is a [facility] resident. She was in [facility] for a few weeks due to her chronic shortness of breath for pulmonary rehabilitation. 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 She gets annoyed and irritable with many questions. Chest x-ray showed bilateral pulm onary congestion. The possibility of pneumonia was considered. She has been seen by Dr. Guevara in i nfectious disease evaluation. She has been placed on Maxipime and vancomycin. PHYSICAL EXAMINATION: GENERAL: Shows a middle-aged obese female patient who is resting comfortably. VITAL SIGNS: Stable. This morning, temperature is 97.8, blood pressure is 178/77, pulse rate 69, re spirations 17, pulse oximetry shows 90% saturation on 2 liters of oxygen. Earlier in the morning, lee anderson had a saturation of 98% on 2 liters of oxygen. HEENT: Head looks normal. No scleral icterus is seen. Throat could not be seen as she does not regulatory affairs coordinator perate and open her mouth fully. Right eye is blind. NECK: Short and obese. No cervical adenopathy felt. HEART: Regular rhythm. Normal first and second heart sounds. CHEST: Breath sounds are heard bilaterally, somewhat diminished in both the lung swartz with a few s cattered rales and rhonchi. ABDOMEN: Soft, obese. No localized tenderness. Bowel sounds are normally heard. EXTREMITIES: Show no edema, no cyanosis, no clubbing, no calf tenderness. NEUROLOGICAL: The patient is awake, alert, able to verbalize. Moves all the extremities, though she has generalized weakness. LABORATORY TEST RESULTS: Show leukocytes are normal, WBC count of 6600, hemoglobin 9.5, hematocrit 3 1.7, platelets are within normal limits. The chemistry panel shows sodium 138, potassium 4.8, BUN 32 , creatinine 3.62, glucose 220. DIAGNOSTIC DATA: Chest x-ray is reported to show cardiomegaly with small bilateral pleural effusions and moderate pulmonary edema. Pneumonia is one of definite diagnoses. IMPRESSION: 1. Shortness of breath, probably secondary to her pulmonary condition rising from diastolic dysfunct ion of the heart. 2. End-stage renal disease, on dialysis. 3. History of hypertension. 4. History of type 2 diabetes mellitus. 5. Chronic anemia. RECOMMENDATIONS: 1. Continue dialysis as per the painter maintenance. 2. Continue anticoagulants as the patient has history of paroxysmal atrial fibrillation. 3. Continue bronchodilator inhalation therapy. Thank you, Dr. Mandel, for referring this patient in pulmonary consultation. Dictated By: JARRELL ESPINOZA MD SR/NTS Conf#: [id number] DID#: [id number] CC: PATTI MCQUEEN MD;*EndCC*
[2018-11-18] MEDS: INSULIN ASPART [NOVOLOG] 3 ML PEN SC SCH ×2 (18:17→22:17)
--- NOTE | 2018-11-18 19:30 | NUR ---
EOSS: Patient A/A/Ox4, bedrest SR on monitor. 2L 02 sat >92%. Will have HD tonight, consent signed. Patient on air mattress bed, reposition Q2hrs. All needs attended. Will continue to monitor.
[2018-11-18] MEDS: ACETAMINOPHEN 325 MG TAB PO PRN (19:49)
[2018-11-18] MEDS ORDERED: APIXABAN 5 MG TABLET PO SCH (21:00)
[2018-11-18] MEDS ORDERED: CEFEPIME 1GM/50 ML (PMX) 50 ML IVPB SCH (21:00)
[2018-11-18] MEDS: LOSARTAN 50 MG TAB PO SCH (21:00)
[2018-11-18] MEDS: METOPROLOL 25 MG TAB PO SCH (21:00)
[2018-11-18] MEDS: AMLODIPINE 5 MG TAB PO SCH (21:00)
--- NOTE | 2018-11-18 21:09 | NUR ---
Pt. endorsed to Tori HOUSTON, initial assessment not done with pt. I will float to ICU per typesetting supervisor.
[2018-11-18] MEDS: traZODone 50 MG TAB PO SCH (22:08)
[2018-11-18] MEDS: PREDNISOLONE ACET 1% 5 ML OPH RIGHT EYE SCH (22:08)
[2018-11-18] MEDS: ATORVASTATIN 20 MG TAB PO SCH (22:08)
[2018-11-18] MEDS: INSULIN DETEMIR [LEVEMIR] (100 UNITS/ML) SYG SC SCH (22:17)
[2018-11-19] VITALS (16 sets, daily range): BP systolic 111–167; BP diastolic 56–72; PULSE 58–64; RESP 15–20
--- NOTE | 2018-11-19 00:57 | NUR ---
Hemodialysis completed, 3000ml UF removed, well tolerated, no acute events, no sob, denies pain, access site secured, no bleeding, safety observed, primary RN aware. BP 127/59 post HD. Addendum: 11/19/18 at 0057 by RASHID SOLOMON Amended: Links added.
[2018-11-19] MEDS: DOCUSATE SODIUM 100 MG CAP PO SCH ×2 (01:13→20:38)
[2018-11-19] MEDS: ACCU-CHEK XX SCH (01:47)
[2018-11-19] MEDS: HEPARIN 5,000 UNIT/1 ML VIAL SC SCH ×3 (05:23→22:18)
--- NOTE | 2018-11-19 07:00 | NUR ---
EOSS: Patient resting comfortably in stable condition. Pt a/o X4 and on 5.0 L NC. VS stable. Will endorse to oncoming RN.
[2018-11-19] MEDS: LEVOTHYROXINE 100 MCG TAB PO SCH (07:06)
[2018-11-19] MEDS: INSULIN ASPART [NOVOLOG] 3 ML PEN SC SCH ×4 (07:55→20:48)
[2018-11-19] MEDS: PANTOPRAZOLE (EC) 40 MG TAB PO SCH (08:21)
[2018-11-19] MEDS: FOLIC ACID 1 MG TAB PO SCH (08:22)
[2018-11-19] MEDS: CITALOPRAM 20 MG TAB PO SCH (08:22)
[2018-11-19] MEDS: ASCORBIC ACID 500 MG TAB PO SCH (08:22)
[2018-11-19] MEDS: FAMOTIDINE 20 MG INJ IV SCH (08:22)
[2018-11-19] MEDS: METOPROLOL 25 MG TAB PO SCH ×2 (08:23→20:38)
[2018-11-19] MEDS: AMIODARONE 200 MG TAB PO SCH (08:23)
[2018-11-19] MEDS: LOSARTAN 50 MG TAB PO SCH ×2 (08:23→20:38)
[2018-11-19] MEDS: PREDNISOLONE ACET 1% 5 ML OPH RIGHT EYE SCH ×2 (08:24→20:39)
[2018-11-19] MEDS: ZINC SULFATE 220 MG CAP PO SCH (08:26)
[2018-11-19] MEDS: traMADol 50 MG TAB PO PRN (09:27)
[2018-11-19] MEDS ORDERED: VANCOMYCIN 1.25 GM in SOD CHLORIDE 0.9% 250 ML IVPB SCH (10:00)
--- NOTE | 2018-11-19 10:50 | NUR ---
RX NOTE RE: VANCOMYCIN DAY #2 OF VANCO PER RX ALLERGIES: CODEINE TMAX: 97.8 WBC: 6.6 VANCO RANDOM: 7.1 GIVE VANCOMYCIN 1.25GM X1 TODAY. PHARMACY TO FOLLOW
[2018-11-19] MEDS: ACETAMINOPHEN 325 MG TAB PO PRN (11:18)
--- NOTE | 2018-11-19 12:35 | NUR ---
WOUND CONSULTATION NOTE: 62 year old female with PMHx of ESRD on HD, CAD, CHF, HTN, HLD, Hypothyroidism, DM, functional quadriplegia, right eye blindness and obesity presents from SNF for shortness of breath and weakness. Patient with prior hx of left inner thigh wound s/p laser ablation of varicose vein which has now healed and scarred over, she also had prior left heel pressure injury which she was followed at the outpatient wound clinic in 2017. Left heel wound is intact and painful with some evidence of suspected developing deep tissue injury. Wound care was consulted for above issues. Patient is currently on a low air loss surface mattress, incontinent of possibly both bowel or bladder, unclear if patient is nonoliguric WOUND ASSESSMENT 1. Sacrococcyx - Intact Deep tissue Injury with surrounding incontinence-associated dermatitis with denuded skin extending down to bilateral gluteal folds. Condition is present on admission. Measuring approx 6.5 x 6 x 0 cm 2. Left Heel - Developing faint and painful deep tissue injury, hx of prior pressure injury which has resolved with possible previous debridement as there is loss of calcaneus tuberosity. Condition is present on admission with intact periwound RECOMMENDATIONS: -Recommend to cleanse skin with mild soap and water with every incontinence episode and pat dry. Apply Venelex ointment to areas of deep tissue injury and skin barrier cream the perineum and periwound, and cover with a foam border dressing to the sacrococcyx for protection. -Turn and reposition patient every 2 Hours and PRN -Apply Venelex oinment to left heel and Elevate both heels on pillows at all times -Apply Allevyn Heel bilaterally and inspect every shift -OK to keep heel cushion on -Remove SCDs every shift for at least 30 minutes, and inspect lower extremities -Keep HOB>30 degrees unless medically contraindicated -Continue Low Air Loss surface mattress -Apply foam border padding behind ears when wearing O2 nasal cannula Patient was seen and examined and recommendations discussed with primary RNPriscilla. Please contact wound care department for any additional questions or encounters Thank you Inessa Cantu, MSN, RN, CCRN, C
--- NOTE | 2018-11-19 12:53 | PN ---
DATE: 11/19/2018 SUBJECTIVE: The patient is resting comfortably. She has no cough. Her breathing appears significan tly improved. She has no fever, no congestion. PHYSICAL EXAMINATION: VITAL SIGNS: Stable. Blood pressure is 146/67, pulse rate 60, respirations 20, temperature 97.4, pu lse oximetry 90% to 92% saturation on 5 liters of oxygen. She had dialysis yesterday. The next dial ysis is scheduled for tomorrow. HEART: Regular rate, rhythm. CHEST: Breath sounds are somewhat distant in both the lung swartz with a few occasional rales and rh onchi heard in the lung bases. ABDOMEN: Soft, obese. No localized tenderness. Normal bowel sounds. EXTREMITIES: Show no edema. LABORATORY TESTS: There are no lab results from today except for glucose which shows reading of 109 with Accu-Chek monitoring. DIAGNOSTIC DATA: The repeat chest x-ray done yesterday shows no significant change from pulmonary co ngestion. No pleural effusion seen. Cardiomegaly was present. IMPRESSION: 1. Shortness of breath secondary to pulmonary congestion rising from diastolic dysfunction of the he art. 2. End-stage renal disease on dialysis. 3. History of hypertension. 4. History of type 2 diabetes mellitus. 5. Chronic anemia. RECOMMENDATIONS: 1. Continue dialysis per the utility bagger she had it yesterday. Next dialysis is for tomorrow. 2. Continue bronchodilator inhalation therapy. 3. Continue other medications. Pneumonia seems to be doubtful. Dictated By: JARRELL ESPINOZA MD SR/NTS Conf#: [id number] DID#: [id number] CC: ALEXUS VALENCIA MD;*EndCC*
[2018-11-19] MEDS: LORAZEPAM 1 MG TAB PO PRN (13:28)
--- NOTE | 2018-11-19 15:09 | CONS ---
Date/Time of Note Date/Time of Note DATE: 11/19/18 TIME: 15:09 Assessment/Plan Assessment/Plan Hospital Course Patient is alert and looks comfortable denies pain no nausea vomiting diarrhea, no fevers no labs this morning Indwelling right forearm AV fistula Chest x-ray yesterday revealed pulmonary edema Antimicrobials: Patient is on IV vancomycin and cefepime Physical examination: This is obese well-developed elderly woman who is alert in no distress. Head atraumatic normocephalic sclera nonicteric neck is supple chest rise symmetrical breath sounds diminished bases. Heart: S1-S2. Abdomen obese soft bowel sounds present. Extremities without cyanosis right forearm AV fistula patent Assessment: 1. CHF exacerbation 2. End-stage renal disease, on hemodialysis 3. Morbid obesity 4. Diabetes 5. Hypertension Plan: Patient remained stable no evidence of acute infectious process, she is being followed by pulmonology who does not think she has pneumonia, we will will discontinue antibiotics and observe her Result Diagram: 11/18/18 0359 11/18/18 0359 Results 24hrs Laboratory Tests Test 11/18/18 17:55 11/18/18 22:07 11/19/18 01:42 11/19/18 05:04 Bedside Glucose 214 256 H 152 Random Vancomycin 7.1 Level Hepatitis B Surface POSITIVE H Antibody Test 11/19/18 05:05 11/19/18 07:57 11/19/18 11:52 Hepatitis B Surface NEGATIVE Antigen Bedside Glucose 109 177 Consultation Date/Type/Reason Admit Date/Time Nov 17, 2018 at 23:34 Initial Consult Date 11/18/18 Type of Consult id Exam/Review of Systems Vital Signs Vitals Vital Signs Date Temp Pulse Resp B/P (MAP) Pulse Ox O2 O2 Flow FiO2 Time Delivery Rate 11/19/18 58 12:00 11/19/18 97.4 20 146/67 90 11:19 (93) 11/19/18 Nasal 5.0 07:50 Cannula Intake and Output 11/18/18 11/18/18 11/19/18 1414:59 22:59 06:59 IntakeIntake Total 600 ml 550 ml OutputOutput Total 0 ml 3400 ml BalanceBalance 600 ml -2850 ml Medications Medications Current Medications IV Flush (NS 3 ml) 3 ml PER PROTOCOL IV ; Start 11/18/18 at 00:00 Ondansetron HCl (Zofran Inj) 4 mg Q6H PRN IV NAUSEA AND/OR VOMITING Last administered on 11/18/18 08:55; Admin Dose 4 MG; Start 11/18/18 at 00:00 Acetaminophen (Tylenol Tab) 650 mg Q6H PRN PO PAIN LEVEL 1-3 OR FEVER Last administered on 11/19/18 11:18; Admin Dose 650 MG; Start 11/18/18 at 00:00 Famotidine (Pepcid Iv) 20 mg DAILY IV Last administered on 11/19/18 08:22; Admin Dose 20 MG; Start 11/18/18 at 09:00 Heparin Sodium (Porcine) (Heparin (5000 Units/1ml)) 5,000 unit Q8 SC Last administered on 11/19/18 13:32; Admin Dose 5,000 UNIT; Start 11/18/18 at 06:00 Diagnostic Test (Pha) (Accu-Chek) 1 ea 02 XX ; Start 11/19/18 at 02:00 Insulin Aspart (Novolog Insulin Pen) NOVOLOG *MILD* ALGORITHM WITH MEALS BEDTIME SC Last administered on 11/19/18at 12:08; Admin Dose 1 UNIT; Start 11/18/18 at 17:55 Cefepime HCl 50 ml @ 100 mls/hr Q24H IVPB Last administered on 11/19/18 01:13; Admin Dose 100 MLS/HR; Start 11/18/18 at 21:00 Vancomycin HCl (Vanco Iv Per Pharmacy) VANCOMYCIN PER PHARMACY PER PROTOCOL XX ; Start 11/18/18 at 12:30 Morphine Sulfate (morphine SULFATE (PF)) 2 mg Q4H PRN IV PAIN LEVEL 7-10; Start 11/18/18 at 12:28 Acetaminophen (Tylenol Tab) 325 mg Q4H PRN PO MILD PAIN(1-3)OR ELEVATED TEMP; Start 11/18/18 at 12:30 Albuterol (Proventil 0.083% (Neb)) 2.5 mg Q6 PRN NEB WHEEZING AND SOB; Start 11/18/18 at 12:30 Amiodarone HCl (Cordarone) 200 mg DAILY PO Last administered on 11/19/18 08:23; Admin Dose 200 MG; Start 11/19/18 at 09:00 Amlodipine Besylate (Norvasc) 5 mg QHS PO ; Start 11/18/18 at 21:00 Apixaban (Eliquis) 2.5 mg BID PO ; Start 11/18/18 at 21:00; Status Hold Ascorbic Acid (Vitamin C) 500 mg DAILY PO Last administered on 11/19/18 08:22; Admin Dose 500 MG; Start 11/19/18 at 09:00 Atorvastatin Calcium (Lipitor) 20 mg QHS PO Last administered on 11/18/18 22:08; Admin Dose 20 MG; Start 11/18/18 at 21:00 Citalopram Hydrobromide (Celexa) 10 mg DAILY PO Last administered on 11/19/18 08:22; Admin Dose 10 MG; Start 11/19/18 at 09:00 Docusate Sodium (Colace) 200 mg QHS PO Last administered on 11/19/18 01:13; Admin Dose 200 MG; Start 11/18/18 at 21:00 Folic Acid (Folic Acid) 1 mg DAILY PO Last administered on 11/19/18 08:22; Admin Dose 1 MG; Start 11/19/18 at 09:00 Insulin Detemir (Levemir) 6 units QHS SC Last administered on 11/18/18 22:17; Admin Dose 6 UNITS; Start 11/18/18 at 21:00 Levothyroxine Sodium (Synthroid) 100 mcg BEFORE BREAKFAST PO Last administered on 11/19/18 07:06; Admin Dose 100 MCG; Start 11/19/18 at 07:00 Lorazepam (Ativan) 1 mg Q8 PRN PO ANXIETY Last administered on 11/19/18 13:28; Admin Dose 1 MG; Start 11/18/18 at 12:30 Losartan Potassium (Cozaar) 50 mg BID PO Last administered on 11/19/18 08:23; Admin Dose 50 MG; Start 11/18/18 at 21:00 Metoprolol Tartrate (Lopressor) 25 mg BID PO Last administered on 11/19/18 08:23; Admin Dose 25 MG; Start 11/18/18 at 21:00 Pantoprazole (Protonix Tab) 40 mg DAILY PO Last administered on 11/19/18 08:21; Admin Dose 40 MG; Start 11/19/18 at 09:00 Prednisolone Acetate (Pred-Forte 1%) 1 drop BID RIGHT EYE Last administered on 11/19/18 08:24; Admin Dose 1 DROP; Start 11/18/18 at 21:00 Tramadol HCl (Ultram) 50 mg Q6H PRN PO PAIN Last administered on 11/19/18 09:27; Admin Dose 50 MG; Start 11/18/18 at 12:30 Trazodone HCl (Desyrel) 50 mg QHS PO Last administered on 11/18/18 22:08; Admin Dose 50 MG; Start 11/18/18 at 21:00 Zinc Sulfate (Zinc Sulfate) 220 mg DAILY PO Last administered on 11/19/18 08:26; Admin Dose 220 MG; Start 11/19/18 at 09:00 ALYX NAVARRO NP Nov 19, 2018 15:09
--- NOTE | 2018-11-19 17:07 | PN ---
Date/Time of Note Date/Time of Note DATE: 11/19/18 TIME: 17:07 Assessment/Plan VTE Prophylaxis Risk score (from Ns)>0 risk: 7 SCD applied (from Ns): Yes Pharmacological prophylaxis: heparin Lines/Catheters [facility] Saline Lock Urinary Cath still in place: No Assessment/Plan Hospital Course Patient is status post hemodialysis yesterday, complains of occasional shortness of breath, continues on 5 L oxygen via nasal cannula, plan for hemodialysis tomorrow. Continue to observe off antibiotics. Assessment/Plan -Shortness of breath secondary to pulmonary congestion rising from diastolic dysfunction of the heart. Dr. Louise is following from pulmonology standpoint. -Hemodialysis dependent end-stage renal disease. Dr. Mcdaniel is following from nephrology standpoint. -Diabetes mellitus type 2 hemoglobin A1c 6.0, continue Levemir and NovoLog per mild algorithm sliding scale. -Hypothyroidism, continue levothyroxine -Hypertension, continue patient's antihypertensive medication from [facility]. -Hyperlipidemia, continue statin Further recommendations based on clinical course. Plan of care discussed with Dr. Mandel. Result Diagram: 11/18/18 0359 11/18/18 0359 Results 24hrs Laboratory Tests Test 11/18/18 17:55 11/18/18 22:07 11/19/18 01:42 11/19/18 05:04 Bedside Glucose 214 256 H 152 Random Vancomycin 7.1 Level Hepatitis B Surface POSITIVE H Antibody Test 11/19/18 05:05 11/19/18 07:57 11/19/18 11:52 Hepatitis B Surface NEGATIVE Antigen Bedside Glucose 109 177 Exam/Review of Systems Vital Signs Vitals Vital Signs Date Temp Pulse Resp B/P (MAP) Pulse Ox O2 O2 Flow FiO2 Time Delivery Rate 11/19/18 5.0 16:29 11/19/18 62 16:00 11/19/18 148/65 15:32 (92) 11/19/18 98.3 20 95 15:09 11/19/18 Nasal 07:50 Cannula Intake and Output 11/18/18 11/18/18 11/19/18 1515:00 23:00 07:00 IntakeIntake Total 600 ml 550 ml OutputOutput Total 0 ml 3400 ml BalanceBalance 600 ml -2850 ml Exam Constitutional: alert, oriented Eyes: other (Right eye blindness) Respiratory: diminished breath sounds Cardiovascular: regular rate and rhythm Gastrointestinal: soft, non-tender Musculoskeletal: nl extremities to inspection Extremities: normal pulses, other (Right upper extremity AV fistula) Medications Medications Current Medications IV Flush (NS 3 ml) 3 ml PER PROTOCOL IV ; Start 11/18/18 at 00:00 Ondansetron HCl (Zofran Inj) 4 mg Q6H PRN IV NAUSEA AND/OR VOMITING Last administered on 11/18/18at 08:55; Admin Dose 4 MG; Start 11/18/18 at 00:00 Acetaminophen (Tylenol Tab) 650 mg Q6H PRN PO PAIN LEVEL 1-3 OR FEVER Last administered on 11/19/18at 11:18; Admin Dose 650 MG; Start 11/18/18 at 00:00 Famotidine (Pepcid Iv) 20 mg DAILY IV Last administered on 11/19/18at 08:22; Admin Dose 20 MG; Start 11/18/18 at 09:00 Heparin Sodium (Porcine) (Heparin (5000 Units/1ml)) 5,000 unit Q8 SC Last administered on 11/19/18at 13:32; Admin Dose 5,000 UNIT; Start 11/18/18 at 06:00 Diagnostic Test (Pha) (Accu-Chek) 1 ea 02 XX ; Start 11/19/18 at 02:00 Insulin Aspart (Novolog Insulin Pen) NOVOLOG *MILD* ALGORITHM WITH MEALS BEDTIME SC Last administered on 11/19/18at 12:08; Admin Dose 1 UNIT; Start 11/18/18 at 17:55 Morphine Sulfate (morphine SULFATE (PF)) 2 mg Q4H PRN IV PAIN LEVEL 7-10; Start 11/18/18 at 12:28 Acetaminophen (Tylenol Tab) 325 mg Q4H PRN PO MILD PAIN(1-3)OR ELEVATED TEMP; Start 11/18/18 at 12:30 Albuterol (Proventil 0.083% (Neb)) 2.5 mg Q6 PRN NEB WHEEZING AND SOB; Start 11/18/18 at 12:30 Amiodarone HCl (Cordarone) 200 mg DAILY PO Last administered on 11/19/18at 08:23; Admin Dose 200 MG; Start 11/19/18 at 09:00 Amlodipine Besylate (Norvasc) 5 mg QHS PO ; Start 11/18/18 at 21:00 Apixaban (Eliquis) 2.5 mg BID PO ; Start 11/18/18 at 21:00; Status Hold Ascorbic Acid (Vitamin C) 500 mg DAILY PO Last administered on 11/19/18 08:22; Admin Dose 500 MG; Start 11/19/18 at 09:00 Atorvastatin Calcium (Lipitor) 20 mg QHS PO Last administered on 11/18/18at 22:08; Admin Dose 20 MG; Start 11/18/18 at 21:00 Citalopram Hydrobromide (Celexa) 10 mg DAILY PO Last administered on 11/19/18 08:22; Admin Dose 10 MG; Start 11/19/18 at 09:00 Docusate Sodium (Colace) 200 mg QHS PO Last administered on 11/19/18 01:13; Admin Dose 200 MG; Start 11/18/18 at 21:00 Folic Acid (Folic Acid) 1 mg DAILY PO Last administered on 11/19/18 08:22; Admin Dose 1 MG; Start 11/19/18 at 09:00 Insulin Detemir (Levemir) 6 units QHS SC Last administered on 11/18/18 22:17; Admin Dose 6 UNITS; Start 11/18/18 at 21:00 Levothyroxine Sodium (Synthroid) 100 mcg BEFORE BREAKFAST PO Last administered on 11/19/18 07:06; Admin Dose 100 MCG; Start 11/19/18 at 07:00 Lorazepam (Ativan) 1 mg Q8 PRN PO ANXIETY Last administered on 11/19/18 13:28; Admin Dose 1 MG; Start 11/18/18 at 12:30 Losartan Potassium (Cozaar) 50 mg BID PO Last administered on 11/19/18 08:23; Admin Dose 50 MG; Start 11/18/18 at 21:00 Metoprolol Tartrate (Lopressor) 25 mg BID PO Last administered on 11/19/18 08:23; Admin Dose 25 MG; Start 11/18/18 at 21:00 Pantoprazole (Protonix Tab) 40 mg DAILY PO Last administered on 11/19/18 08:21; Admin Dose 40 MG; Start 11/19/18 at 09:00 Prednisolone Acetate (Pred-Forte 1%) 1 drop BID RIGHT EYE Last administered on 11/19/18 08:24; Admin Dose 1 DROP; Start 11/18/18 at 21:00 Tramadol HCl (Ultram) 50 mg Q6H PRN PO PAIN Last administered on 11/19/18 09:27; Admin Dose 50 MG; Start 11/18/18 at 12:30 Trazodone HCl (Desyrel) 50 mg QHS PO Last administered on 11/18/18 22:08; Admin Dose 50 MG; Start 11/18/18 at 21:00 Zinc Sulfate (Zinc Sulfate) 220 mg DAILY PO Last administered on 11/19/18 08:26; Admin Dose 220 MG; Start 11/19/18 at 09:00 SIN IZAGUIRRE Nov 19, 2018 17:07
--- NOTE | 2018-11-19 18:26 | NUR ---
EOSS: Pt is stable, VS are WNL. blood sugar is controlled, pain management is successful, Pt is helped to turn and reposition, wound care is done. Pt is on 5 L O2 saturation is above 97%. All needs are attended, will endorse the care to maintenance supervisor 2nd shift nurse.
[2018-11-19] MEDS: ATORVASTATIN 20 MG TAB PO SCH (20:38)
[2018-11-19] MEDS: traZODone 50 MG TAB PO SCH (20:38)
[2018-11-19] MEDS: AMLODIPINE 5 MG TAB PO SCH (20:39)
[2018-11-19] MEDS: INSULIN DETEMIR [LEVEMIR] (100 UNITS/ML) SYG SC SCH (20:49)
[2018-11-19] MEDS: ONDANSETRON 4 MG INJ IV PRN (20:57)
[2018-11-20] VITALS (26 sets, daily range): BP systolic 121–160; BP diastolic 48–72; PULSE 59–69; RESP 17–20
[2018-11-20] MEDS: ACCU-CHEK XX SCH (01:51)
[2018-11-20] MEDS: LORAZEPAM 1 MG TAB PO PRN ×2 (01:57→21:11)
[2018-11-20] MEDS: ONDANSETRON 4 MG INJ IV PRN ×2 (04:43→21:19)
[2018-11-20] MEDS: LEVOTHYROXINE 100 MCG TAB PO SCH (06:13)
[2018-11-20] MEDS: HEPARIN 5,000 UNIT/1 ML VIAL SC SCH ×3 (06:17→21:27)
--- NOTE | 2018-11-20 07:43 | NUR ---
EOSS: Patient alert and oriented x4, vitals stable, o2 stable with 5L. No acute distress overnight. Zofran given as needed for nausea. All other needs anticipated and met. Will endorse to oncoming shift.
[2018-11-20] MEDS: PANTOPRAZOLE (EC) 40 MG TAB PO SCH (08:27)
[2018-11-20] MEDS: CITALOPRAM 20 MG TAB PO SCH (08:27)
[2018-11-20] MEDS: ZINC SULFATE 220 MG CAP PO SCH (08:27)
[2018-11-20] MEDS: ASCORBIC ACID 500 MG TAB PO SCH (08:28)
[2018-11-20] MEDS: FOLIC ACID 1 MG TAB PO SCH (08:28)
[2018-11-20] MEDS: PREDNISOLONE ACET 1% 5 ML OPH RIGHT EYE SCH ×2 (08:30→21:34)
[2018-11-20] MEDS: FAMOTIDINE 20 MG INJ IV SCH (08:43)
[2018-11-20] MEDS: INSULIN ASPART [NOVOLOG] 3 ML PEN SC SCH ×4 (08:43→21:27)
[2018-11-20] MEDS: AMIODARONE 200 MG TAB PO SCH (09:00)
[2018-11-20] MEDS: METOPROLOL 25 MG TAB PO SCH ×2 (09:00→21:11)
[2018-11-20] MEDS: LOSARTAN 50 MG TAB PO SCH ×2 (09:00→21:14)
[2018-11-20] MEDS: BALSAM PERU/CASTOR OIL 60 GM TUBE TOP SCH (09:27)
--- NOTE | 2018-11-20 09:34 | NUR ---
Called [facility] for HD order for today confirmation number is [id number]
[2018-11-20] MEDS: MUPIROCIN 2% 22 GM OINT TOP SCH ×2 (13:33→21:34)
--- NOTE | 2018-11-20 14:44 | PN ---
Date/Time of Note Date/Time of Note DATE: 11/20/18 TIME: 14:44 Assessment/Plan VTE Prophylaxis Risk score (from Ns)>0 risk: 8 SCD applied (from Ns): Yes SCD contraindicated: other Pharmacological prophylaxis: other Pharm contraindication: other Lines/Catheters [facility]from [facility] Saline Lock Urinary Cath still in place: No Assessment/Plan Result Diagram: 11/18/18 0359 11/18/18 0359 Results 24hrs Laboratory Tests Test 11/19/18 17:30 11/19/18 20:42 11/20/18 01:50 11/20/18 08:26 Bedside Glucose 173 185 210 150 Test 11/20/18 11:53 Bedside Glucose 184 Exam/Review of Systems Vital Signs Vitals Vital Signs Date Temp Pulse Resp B/P (MAP) Pulse Ox O2 O2 Flow FiO2 Time Delivery Rate 11/20/18 64 12:10 11/20/18 98.6 20 125/58 96 11:25 (80) 11/20/18 Nasal 5.0 07:44 Cannula Intake and Output 11/19/18 11/19/18 11/20/18 1414:59 22:59 06:59 IntakeIntake Total 300 ml BalanceBalance 300 ml Medications Medications Current Medications IV Flush (NS 3 ml) 3 ml PER PROTOCOL IV ; Start 11/18/18 at 00:00 Ondansetron HCl (Zofran Inj) 4 mg Q6H PRN IV NAUSEA AND/OR VOMITING Last administered on 11/20/18at 04:43; Admin Dose 4 MG; Start 11/18/18 at 00:00 Acetaminophen (Tylenol Tab) 650 mg Q6H PRN PO PAIN LEVEL 1-3 OR FEVER Last administered on 11/19/18at 11:18; Admin Dose 650 MG; Start 11/18/18 at 00:00 Famotidine (Pepcid Iv) 20 mg DAILY IV Last administered on 11/20/18at 08:43; Admin Dose 20 MG; Start 11/18/18 at 09:00 Heparin Sodium (Porcine) (Heparin (5000 Units/1ml)) 5,000 unit Q8 SC Last administered on 11/20/18at 13:37; Admin Dose 5,000 UNIT; Start 11/18/18 at 06:00 Diagnostic Test (Pha) (Accu-Chek) 1 ea 02 XX Last administered on 11/20/18 01:51; Admin Dose 1 EA; Start 11/19/18 at 02:00 Insulin Aspart (Novolog Insulin Pen) NOVOLOG *MILD* ALGORITHM WITH MEALS BEDTIME SC Last administered on 11/20/18 12:05; Admin Dose 2 UNIT; Start 11/18/18 at 17:55 Acetaminophen (Tylenol Tab) 325 mg Q4H PRN PO MILD PAIN(1-3)OR ELEVATED TEMP; Start 11/18/18 at 12:30 Albuterol (Proventil 0.083% (Neb)) 2.5 mg Q6 PRN NEB WHEEZING AND SOB; Start 11/18/18 at 12:30 Amiodarone HCl (Cordarone) 200 mg DAILY PO Last administered on 11/19/18 08:23; Admin Dose 200 MG; Start 11/19/18 at 09:00 Amlodipine Besylate (Norvasc) 5 mg QHS PO Last administered on 11/19/18 20:39; Admin Dose 5 MG; Start 11/18/18 at 21:00 Apixaban (Eliquis) 2.5 mg BID PO ; Start 11/18/18 at 21:00; Status Hold Ascorbic Acid (Vitamin C) 500 mg DAILY PO Last administered on 11/20/18 08:28; Admin Dose 500 MG; Start 11/19/18 at 09:00 Atorvastatin Calcium (Lipitor) 20 mg QHS PO Last administered on 11/19/18 20:38; Admin Dose 20 MG; Start 11/18/18 at 21:00 Citalopram Hydrobromide (Celexa) 10 mg DAILY PO Last administered on 11/20/18 08:27; Admin Dose 10 MG; Start 11/19/18 at 09:00 Docusate Sodium (Colace) 200 mg QHS PO Last administered on 11/19/18 20:38; Admin Dose 200 MG; Start 11/18/18 at 21:00 Folic Acid (Folic Acid) 1 mg DAILY PO Last administered on 11/20/18 08:28; Admin Dose 1 MG; Start 11/19/18 at 09:00 Insulin Detemir (Levemir) 6 units QHS SC Last administered on 11/19/18 20:49; Admin Dose 6 UNITS; Start 11/18/18 at 21:00 Levothyroxine Sodium (Synthroid) 100 mcg BEFORE BREAKFAST PO Last administered on 11/20/18 06:13; Admin Dose 100 MCG; Start 11/19/18 at 07:00 Lorazepam (Ativan) 1 mg Q8 PRN PO ANXIETY Last administered on 11/20/18 01:57; Admin Dose 1 MG; Start 11/18/18 at 12:30 Losartan Potassium (Cozaar) 50 mg BID PO Last administered on 11/19/18 20:38; Admin Dose 50 MG; Start 11/18/18 at 21:00 Metoprolol Tartrate (Lopressor) 25 mg BID PO Last administered on 11/19/18 20:38; Admin Dose 25 MG; Start 11/18/18 at 21:00 Pantoprazole (Protonix Tab) 40 mg DAILY PO Last administered on 11/20/18 08:27; Admin Dose 40 MG; Start 11/19/18 at 09:00 Prednisolone Acetate (Pred-Forte 1%) 1 drop BID RIGHT EYE Last administered on 11/20/18 08:30; Admin Dose 1 DROP; Start 11/18/18 at 21:00 Tramadol HCl (Ultram) 50 mg Q6H PRN PO PAIN Last administered on 11/19/18 09:27; Admin Dose 50 MG; Start 11/18/18 at 12:30 Trazodone HCl (Desyrel) 50 mg QHS PO Last administered on 11/19/18 20:38; Admin Dose 50 MG; Start 11/18/18 at 21:00 Zinc Sulfate (Zinc Sulfate) 220 mg DAILY PO Last administered on 11/20/18 08: 27; Admin Dose 220 MG; Start 11/19/18 at 09:00 Morphine Sulfate (morphine) 6 mg Q4H PRN PO SEVERE PAIN LEVEL 7-10; Start 11/19/18 at 23:00 Mupirocin (Bactroban) 1 applic BID TOP Last administered on 11/20/18 13:33; Admin Dose 1 APPLIC; Start 11/20/18 at 13:00 TROY ANTOINE Nov 20, 2018 14:44
--- NOTE | 2018-11-20 15:09 | CONS ---
Date/Time of Note Date/Time of Note DATE: 11/20/18 TIME: 15:08 Assessment/Plan Assessment/Plan Hospital Course 62 Female ESRD on Hemodialysis Had a [facility] stay [facility] a [facility] who just came back to SNF presented with SOB & possible pneumonia. Her Last dialysis was Friday11/16/2017. Assessment/Plan - ESRD Hemodialysis dependent - DM / DM Nephropathy - Pneumonia - Hypertension - CAD / CHF - Chronic Anemia - Respiratory Insufficiency - Hyperphosphatemia PLAN: Recent Discharge from a [facility] Will plan For dialysis today Monitor electrolytes IV Antibiotics Follow up with H/H Will recheck CXR today post Dialysis to get a better look at her lungs Will ask [facility] to arrange for Out patient dialysis. On bedside dialysis Feels Much Better Aiming for ~ 2-3 Kg off on dialysis as tolerates Monitor Lytes Follow up with H/H Result Diagram: 11/18/18 0359 11/18/18 0359 Results 24hrs Laboratory Tests Test 11/19/18 17:30 11/19/18 20:42 11/20/18 01:50 11/20/18 08:26 Bedside Glucose 173 185 210 150 Test 11/20/18 11:53 Bedside Glucose 184 Consultation Date/Type/Reason Admit Date/Time Nov 17, 2018 at 23:34 Initial Consult Date 11/18/18 Type of Consult NEPHROLOGY 24 HR Interval Summary Constitutional: no complaints, improved Exam/Review of Systems Vital Signs Vitals Vital Signs Date Temp Pulse Resp B/P (MAP) Pulse Ox O2 O2 Flow FiO2 Time Delivery Rate 11/20/18 64 12:10 11/20/18 98.6 20 125/58 96 11:25 (80) 11/20/18 Nasal 5.0 07:44 Cannula Intake and Output 11/19/18 11/19/18 11/20/18 1515:00 23:00 07:00 IntakeIntake Total 300 ml BalanceBalance 300 ml Exam Constitutional: alert, oriented Neck: jvd Respiratory: crackles/rales Cardiovascular: edema, systolic murmur Gastrointestinal: soft Medications Medications Current Medications IV Flush (NS 3 ml) 3 ml PER PROTOCOL IV ; Start 11/18/18 at 00:00 Ondansetron HCl (Zofran Inj) 4 mg Q6H PRN IV NAUSEA AND/OR VOMITING Last administered on 11/20/18 04:43; Admin Dose 4 MG; Start 11/18/18 at 00:00 Acetaminophen (Tylenol Tab) 650 mg Q6H PRN PO PAIN LEVEL 1-3 OR FEVER Last administered on 11/19/18 11:18; Admin Dose 650 MG; Start 11/18/18 at 00:00 Famotidine (Pepcid Iv) 20 mg DAILY IV Last administered on 11/20/18 08:43; Admin Dose 20 MG; Start 11/18/18 at 09:00 Heparin Sodium (Porcine) (Heparin (5000 Units/1ml)) 5,000 unit Q8 SC Last administered on 11/20/18 13:37; Admin Dose 5,000 UNIT; Start 11/18/18 at 06:00 Diagnostic Test (Pha) (Accu-Chek) 1 ea 02 XX Last administered on 11/20/18 01: 51; Admin Dose 1 EA; Start 11/19/18 at 02:00 Insulin Aspart (Novolog Insulin Pen) NOVOLOG *MILD* ALGORITHM WITH MEALS BEDTIME SC Last administered on 11/20/18 12:05; Admin Dose 2 UNIT; Start 11/18/18 at 17:55 Acetaminophen (Tylenol Tab) 325 mg Q4H PRN PO MILD PAIN(1-3)OR ELEVATED TEMP; Start 11/18/18 at 12:30 Albuterol (Proventil 0.083% (Neb)) 2.5 mg Q6 PRN NEB WHEEZING AND SOB; Start 11/18/18 at 12:30 Amiodarone HCl (Cordarone) 200 mg DAILY PO Last administered on 11/19/18 08:23; Admin Dose 200 MG; Start 11/19/18 at 09:00 Amlodipine Besylate (Norvasc) 5 mg QHS PO Last administered on 11/19/18at 20:39; Admin Dose 5 MG; Start 11/18/18 at 21:00 Apixaban (Eliquis) 2.5 mg BID PO ; Start 11/18/18 at 21:00; Status Hold Ascorbic Acid (Vitamin C) 500 mg DAILY PO Last administered on 11/20/18 08:28; Admin Dose 500 MG; Start 11/19/18 at 09:00 Atorvastatin Calcium (Lipitor) 20 mg QHS PO Last administered on 11/19/18 20:38; Admin Dose 20 MG; Start 11/18/18 at 21:00 Citalopram Hydrobromide (Celexa) 10 mg DAILY PO Last administered on 11/20/18 08:27; Admin Dose 10 MG; Start 11/19/18 at 09:00 Docusate Sodium (Colace) 200 mg QHS PO Last administered on 11/19/18 20:38; Admin Dose 200 MG; Start 11/18/18 at 21:00 Folic Acid (Folic Acid) 1 mg DAILY PO Last administered on 11/20/18 08:28; Admin Dose 1 MG; Start 11/19/18 at 09:00 Insulin Detemir (Levemir) 6 units QHS SC Last administered on 11/19/18 20:49; Admin Dose 6 UNITS; Start 11/18/18 at 21:00 Levothyroxine Sodium (Synthroid) 100 mcg BEFORE BREAKFAST PO Last administered on 11/20/18 06:13; Admin Dose 100 MCG; Start 11/19/18 at 07:00 Lorazepam (Ativan) 1 mg Q8 PRN PO ANXIETY Last administered on 11/20/18 01:57; Admin Dose 1 MG; Start 11/18/18 at 12:30 Losartan Potassium (Cozaar) 50 mg BID PO Last administered on 11/19/18 20:38; Admin Dose 50 MG; Start 11/18/18 at 21:00 Metoprolol Tartrate (Lopressor) 25 mg BID PO Last administered on 11/19/18 20:38; Admin Dose 25 MG; Start 11/18/18 at 21:00 Pantoprazole (Protonix Tab) 40 mg DAILY PO Last administered on 11/20/18 08:27; Admin Dose 40 MG; Start 11/19/18 at 09:00 Prednisolone Acetate (Pred-Forte 1%) 1 drop BID RIGHT EYE Last administered on 11/20/18 08:30; Admin Dose 1 DROP; Start 11/18/18 at 21:00 Tramadol HCl (Ultram) 50 mg Q6H PRN PO PAIN Last administered on 11/19/18at 09:27; Admin Dose 50 MG; Start 11/18/18 at 12:30 Trazodone HCl (Desyrel) 50 mg QHS PO Last administered on 11/19/18at 20:38; Admin Dose 50 MG; Start 11/18/18 at 21:00 Zinc Sulfate (Zinc Sulfate) 220 mg DAILY PO Last administered on 11/20/18at 08:27; Admin Dose 220 MG; Start 11/19/18 at 09:00 Morphine Sulfate (morphine) 6 mg Q4H PRN PO SEVERE PAIN LEVEL 7-10; Start 11/19/18 at 23:00 Mupirocin (Bactroban) 1 applic BID TOP Last administered on 11/20/18at 13:33; Admin Dose 1 APPLIC; Start 11/20/18 at 13:00 ANIBAL ALMANZAR MD Nov 20, 2018 15:09
--- NOTE | 2018-11-20 15:19 | CONS ---
Date/Time of Note Date/Time of Note DATE: 11/20/18 TIME: 15:18 Assessment/Plan Assessment/Plan Hospital Course Alert, feels better Indwelling right forearm AV fistula Chest x-ray yesterday revealed pulmonary edema Physical examination: This is obese well-developed elderly woman who is alert in no distress. Head atraumatic normocephalic sclera nonicteric neck is supple chest rise symmetrical breath sounds diminished bases. Heart: S1-S2. Abdomen obese soft bowel sounds present. Extremities without cyanosis right forearm AV fistula patent Assessment: 1. CHF exacerbation 2. End-stage renal disease, on hemodialysis 3. Morbid obesity 4. Diabetes 5. Hypertension 6. MRSA colonization Plan: Patient remained stable, off antibiotics, continue Bactroban to nares, follow pulmonary recommendations Result Diagram: 11/18/18 0359 11/18/18 0359 Results 24hrs Laboratory Tests Test 11/19/18 17:30 11/19/18 20:42 11/20/18 01:50 11/20/18 08:26 Bedside Glucose 173 185 210 150 Test 11/20/18 11:53 Bedside Glucose 184 Consultation Date/Type/Reason Admit Date/Time Nov 17, 2018 at 23:34 Initial Consult Date 11/18/18 Type of Consult id Exam/Review of Systems Vital Signs Vitals Vital Signs Date Temp Pulse Resp B/P (MAP) Pulse Ox O2 O2 Flow FiO2 Time Delivery Rate 11/20/18 64 12:10 11/20/18 98.6 20 125/58 96 11:25 (80) 11/20/18 Nasal 5.0 07:44 Cannula Intake and Output 11/19/18 11/19/18 11/20/18 1515:00 23:00 07:00 IntakeIntake Total 300 ml BalanceBalance 300 ml Medications Medications Current Medications IV Flush (NS 3 ml) 3 ml PER PROTOCOL IV ; Start 11/18/18 at 00:00 Ondansetron HCl (Zofran Inj) 4 mg Q6H PRN IV NAUSEA AND/OR VOMITING Last administered on 11/20/18at 04:43; Admin Dose 4 MG; Start 11/18/18 at 00:00 Acetaminophen (Tylenol Tab) 650 mg Q6H PRN PO PAIN LEVEL 1-3 OR FEVER Last administered on 11/19/18at 11:18; Admin Dose 650 MG; Start 11/18/18 at 00:00 Famotidine (Pepcid Iv) 20 mg DAILY IV Last administered on 11/20/18at 08:43; Admin Dose 20 MG; Start 11/18/18 at 09:00 Heparin Sodium (Porcine) (Heparin (5000 Units/1ml)) 5,000 unit Q8 SC Last administered on 11/20/18at 13:37; Admin Dose 5,000 UNIT; Start 11/18/18 at 06:00 Diagnostic Test (Pha) (Accu-Chek) 1 ea 02 XX Last administered on 11/20/18at 01:51; Admin Dose 1 EA; Start 11/19/18 at 02:00 Insulin Aspart (Novolog Insulin Pen) NOVOLOG *MILD* ALGORITHM WITH MEALS BEDTIME SC Last administered on 11/20/18at 12:05; Admin Dose 2 UNIT; Start 11/18/18 at 17:55 Acetaminophen (Tylenol Tab) 325 mg Q4H PRN PO MILD PAIN(1-3)OR ELEVATED TEMP; Start 11/18/18 at 12:30 Albuterol (Proventil 0.083% (Neb)) 2.5 mg Q6 PRN NEB WHEEZING AND SOB; Start 11/18/18 at 12:30 Amiodarone HCl (Cordarone) 200 mg DAILY PO Last administered on 11/19/18 08:23; Admin Dose 200 MG; Start 11/19/18 at 09:00 Amlodipine Besylate (Norvasc) 5 mg QHS PO Last administered on 11/19/18at 20:39; Admin Dose 5 MG; Start 11/18/18 at 21:00 Apixaban (Eliquis) 2.5 mg BID PO ; Start 11/18/18 at 21:00; Status Hold Ascorbic Acid (Vitamin C) 500 mg DAILY PO Last administered on 11/20/18 08:28; Admin Dose 500 MG; Start 11/19/18 at 09:00 Atorvastatin Calcium (Lipitor) 20 mg QHS PO Last administered on 11/19/18 20:38; Admin Dose 20 MG; Start 11/18/18 at 21:00 Citalopram Hydrobromide (Celexa) 10 mg DAILY PO Last administered on 11/20/18 08:27; Admin Dose 10 MG; Start 11/19/18 at 09:00 Docusate Sodium (Colace) 200 mg QHS PO Last administered on 11/19/18 20:38; Admin Dose 200 MG; Start 11/18/18 at 21:00 Folic Acid (Folic Acid) 1 mg DAILY PO Last administered on 11/20/18 08:28; Admin Dose 1 MG; Start 11/19/18 at 09:00 Insulin Detemir (Levemir) 6 units QHS SC Last administered on 11/19/18 20:49; Admin Dose 6 UNITS; Start 11/18/18 at 21:00 Levothyroxine Sodium (Synthroid) 100 mcg BEFORE BREAKFAST PO Last administered on 11/20/18 06:13; Admin Dose 100 MCG; Start 11/19/18 at 07:00 Lorazepam (Ativan) 1 mg Q8 PRN PO ANXIETY Last administered on 11/20/18 01:57; Admin Dose 1 MG; Start 11/18/18 at 12:30 Losartan Potassium (Cozaar) 50 mg BID PO Last administered on 11/19/18 20:38; Admin Dose 50 MG; Start 11/18/18 at 21:00 Metoprolol Tartrate (Lopressor) 25 mg BID PO Last administered on 11/19/18 20:38; Admin Dose 25 MG; Start 11/18/18 at 21:00 Pantoprazole (Protonix Tab) 40 mg DAILY PO Last administered on 11/20/18 08:27; Admin Dose 40 MG; Start 11/19/18 at 09:00 Prednisolone Acetate (Pred-Forte 1%) 1 drop BID RIGHT EYE Last administered on 11/20/18 08:30; Admin Dose 1 DROP; Start 11/18/18 at 21:00 Tramadol HCl (Ultram) 50 mg Q6H PRN PO PAIN Last administered on 11/19/18 09:27; Admin Dose 50 MG; Start 11/18/18 at 12:30 Trazodone HCl (Desyrel) 50 mg QHS PO Last administered on 11/19/18 20:38; Admin Dose 50 MG; Start 11/18/18 at 21:00 Zinc Sulfate (Zinc Sulfate) 220 mg DAILY PO Last administered on 11/20/18 08:27; Admin Dose 220 MG; Start 11/19/18 at 09:00 Morphine Sulfate (morphine) 6 mg Q4H PRN PO SEVERE PAIN LEVEL 7-10; Start 11/19/18 at 23:00 Mupirocin (Bactroban) 1 applic BID TOP Last administered on 11/20/18at 13:33; Admin Dose 1 APPLIC; Start 11/20/18 at 13:00 ALYX NAVARRO NP Nov 20, 2018 15:19
--- NOTE | 2018-11-20 15:46 | PN ---
DATE: 11/20/2018 SUBJECTIVE: The patient is resting comfortably. She is having dialysis. She denies having any ches t pain or shortness of breath. No cough, no vomiting. She looks cheerful. PHYSICAL EXAMINATION: VITAL SIGNS: Today shows a temperature 98.6, pulse rate of 62, respiratory rate of 20, blood pressur e 124/58, pulse oximetry 96% saturation. HEART: Regular sinus rhythm. CHEST: Breath sounds are heard, diminished in both the lower lung swartz with few rales and rhonchi. ABDOMEN: Soft, obese. No localized tenderness. EXTREMITIES: Show no edema. NEUROLOGIC: Able to move all the extremities. LABORATORY DATA: Glucose with Accu-Chek monitoring shows a reading of 184. IMPRESSION: 1. Shortness of breath, improving, probably secondary to pulmonary congestion due to diastolic dysfu nction of the heart. 2. End-stage renal disease, on dialysis. 3. History of hypertension. 4. History of type 2 diabetes mellitus. 5. Chronic anemia. RECOMMENDATIONS: 1. Continue dialysis with candy separator enrobing. 2. Continue bronchodilator inhalation therapy. Dictated By: JARRELL ESPINOZA MD SR/NTS Conf#: [id number] DID#: [id number] CC: ALEXUS VALENCIA MD;*EndCC*
--- NOTE | 2018-11-20 16:43 | NUR ---
Pt is stable, VS are WNL. pt is positive for MRSA of the nares, Kassandra S. HOSPITAL RECEIVING CLERK is notified, new orders were received. Pt is currently getting HD. Pt is on 4 L oxygen,No SOB at this time. Pt is turned and repositioned Q2h. wound care is done. blood sugar is WNL. will monitor
--- NOTE | 2018-11-20 18:35 | NUR ---
EOSS: Pt is stable, currently on HD. Blood sugar is controlled. Pt is non compliant with repositioning, refuses to change positions, educated the pt the risk of getting pressure injury if not repositioned Q2H. Pt did not complain of any SOB. Will endorse the care to [employer] shift supervisor nurse.
[2018-11-20] MEDS: ATORVASTATIN 20 MG TAB PO SCH (21:09)
[2018-11-20] MEDS: DOCUSATE SODIUM 100 MG CAP PO SCH (21:10)
[2018-11-20] MEDS: traZODone 50 MG TAB PO SCH (21:10)
[2018-11-20] MEDS: AMLODIPINE 5 MG TAB PO SCH (21:10)
[2018-11-20] MEDS: INSULIN DETEMIR [LEVEMIR] (100 UNITS/ML) SYG SC SCH (21:27)
--- NOTE | 2018-11-20 21:59 | NUR ---
NURSE NOTE: Patient had an episode of nausea and vomiting minutes after administering PO 2100 medications. Vomiting consisted of yellow liquid. Patient given zofran. Vitals stable. Mae Ashley notified- just requested to continue to monitor patient, no other orders given.
[2018-11-20] MEDS ORDERED: LORAZEPAM 1 MG TAB PO ONE (23:30)
[2018-11-20] MEDS: ALBUTEROL 0.083% (NEB) 2.5 MG/3 ML AMP NEB PRN (23:36)
[2018-11-21] VITALS (11 sets, daily range): BP systolic 94–136; BP diastolic 52–63; PULSE 57–84; RESP 17–20
[2018-11-21] MEDS: ACCU-CHEK XX SCH (02:45)
[2018-11-21] MEDS: HEPARIN 5,000 UNIT/1 ML VIAL SC SCH ×3 (05:59→21:58)
[2018-11-21] MEDS: LEVOTHYROXINE 100 MCG TAB PO SCH (06:22)
--- NOTE | 2018-11-21 07:35 | NUR ---
EOSS: Patient alert and oriented x4, patient vitals stable, patient experienced vomiting after medications were given- gave Zofran and made Dr. Zarate aware, no further others. Dr. Zarate also gave an order for an additional Ativan dose for anxiety. Patient o2 saturation was low 80s, patient denied feeling short of breath. Consulted with RT and gave PRN breathing treatment. Patient's o2 sat now stable above 95% still on 5L. Wound dressings changed and repositioned q2h. Will endorse care to oncoming shift.
[2018-11-21] MEDS: PREDNISOLONE ACET 1% 5 ML OPH RIGHT EYE SCH ×2 (08:31→21:57)
[2018-11-21] MEDS: INSULIN ASPART [NOVOLOG] 3 ML PEN SC SCH ×4 (08:35→21:00)
[2018-11-21] MEDS: FAMOTIDINE 20 MG INJ IV SCH (08:55)
[2018-11-21] MEDS: PANTOPRAZOLE (EC) 40 MG TAB PO SCH (08:55)
[2018-11-21] MEDS: AMIODARONE 200 MG TAB PO SCH (08:55)
[2018-11-21] MEDS: ASCORBIC ACID 500 MG TAB PO SCH (08:55)
[2018-11-21] MEDS: FOLIC ACID 1 MG TAB PO SCH (08:55)
[2018-11-21] MEDS: ZINC SULFATE 220 MG CAP PO SCH (08:55)
[2018-11-21] MEDS: CITALOPRAM 20 MG TAB PO SCH (08:55)
[2018-11-21] MEDS: METOPROLOL 25 MG TAB PO SCH ×2 (08:56→21:50)
[2018-11-21] MEDS: LOSARTAN 50 MG TAB PO SCH ×2 (08:56→21:51)
[2018-11-21] MEDS: MUPIROCIN 2% 22 GM OINT TOP SCH ×2 (08:57→21:00)
[2018-11-21] MEDS: BALSAM PERU/CASTOR OIL 60 GM TUBE TOP SCH (08:57)
[2018-11-21] MEDS: morphine LIQ (10 MG/5 ML) CUP PO PRN (09:10)
--- NOTE | 2018-11-21 11:13 | PN ---
Date/Time of Note Date/Time of Note DATE: 11/21/18 TIME: 11:12 Assessment/Plan VTE Prophylaxis Risk score (from Ns)>0 risk: 8 SCD applied (from Ns): Yes Pharmacological prophylaxis: LMWH Lines/Catheters IV C[facility]ter Type [facility]from [facility] Urinary Cath still in place: No Assessment/Plan Hospital Course -Shortness of breath secondary to pulmonary congestion rising from diastolic dysfunction of the heart. Dr. Louise is following from pulmonology standpoint. -Hemodialysis dependent end-stage renal disease. Dr. Mcdaniel is following from nephrology standpoint. -Diabetes mellitus type 2 hemoglobin A1c 6.0, continue Levemir and NovoLog per mild algorithm sliding scale. -Hypothyroidism, continue levothyroxine -Hypertension, continue patient's antihypertensive medication from senior care facility. -Hyperlipidemia, continue statin Result Diagram: 11/21/18 0617 11/21/1817 Results 24hrs Laboratory Tests Test 11/20/18 11:53 11/20/18 17:27 11/20/18 21:22 11/21/18 02:40 Bedside Glucose 184 141 195 171 Test 11/21/18 06:17 11/21/18 08:27 White Blood Count 4.6 #L Red Blood Count 3.07 L Hemoglobin 9.0 L Hematocrit 30.6 L Mean Corpuscular 99.7 Volume Mean Corpuscular 29.3 Hemoglobin Mean Corpuscular 29.4 L Hemoglobin Concent Red Cell 16.2 H Distribution Width Platelet Count 168 Mean Platelet Volume 11.0 H Immature 0.600 H Granulocytes % Neutrophils % 65.4 Lymphocytes % 18.2 Monocytes % 13.9 H Eosinophils % 1.5 Basophils % 0.4 Nucleated Red Blood 0.0 Cells % Immature 0.030 Granulocytes # Neutrophils # 3.0 Lymphocytes # 0.8 Monocytes # 0.6 Eosinophils # 0.1 Basophils # 0.0 Nucleated Red Blood 0.0 Cells # Sodium Level 136 Potassium Level 4.1 Chloride Level 91 L Carbon Dioxide Level 32 H Anion Gap 13 Blood Urea Nitrogen 23 H Creatinine 2.69 H Est Glomerular 18 L Filtrat Rate mL/min Glucose Level 157 Calcium Level 8.8 Bedside Glucose 156 Subjective 24 Hr Interval Summary Free Text/Dictation Patient has no complaints Exam/Review of Systems Vital Signs Vitals Vital Signs Date Temp Pulse Resp B/P (MAP) Pulse Ox O2 O2 Flow FiO2 Time Delivery Rate 1/12/19 63 08:01 11/21/18 98.4 20 131/63 99 07:19 (85) 11/21/18 5.0 06:07 11/21/18 Nasal 03:57 Cannula Intake and Output 11/20/18 11/20/18 11/21/18 1414:59 22:59 06:59 IntakeIntake Total 250 ml 350 ml OutputOutput Total 3400 ml BalanceBalance 250 ml -3050 ml Exam Constitutional: well developed Head: normocephalic, atraumatic Neck: supple Respiratory: diminished breath sounds Cardiovascular: regular rate and rhythm Gastrointestinal: soft, non-tender Extremities: normal pulses Medications Medications Current Medications IV Flush (NS 3 ml) 3 ml PER PROTOCOL IV ; Start 11/18/18 at 00:00 Ondansetron HCl (Zofran Inj) 4 mg Q6H PRN IV NAUSEA AND/OR VOMITING Last administered on 11/20/18at 21:19; Admin Dose 4 MG; Start 11/18/18 at 00:00 Acetaminophen (Tylenol Tab) 650 mg Q6H PRN PO PAIN LEVEL 1-3 OR FEVER Last administered on 11/19/18at 11:18; Admin Dose 650 MG; Start 11/18/18 at 00:00 Famotidine (Pepcid Iv) 20 mg DAILY IV Last administered on 11/21/18at 08:55; Admin Dose 20 MG; Start 11/18/18 at 09:00 Heparin Sodium (Porcine) (Heparin (5000 Units/1ml)) 5,000 unit Q8 SC Last administered on 11/21/18at 05:59; Admin Dose 5,000 UNIT; Start 11/18/18 at 06:00 Diagnostic Test (Pha) (Accu-Chek) 1 ea 02 XX Last administered on 11/21/18at 02:45; Admin Dose 1 EA; Start 11/19/18 at 02:00 Insulin Aspart (Novolog Insulin Pen) NOVOLOG *MILD* ALGORITHM WITH MEALS BEDTIME SC Last administered on 11/21/18at 08:35; Admin Dose 1 UNIT; Start 11/18/18 at 17:55 Acetaminophen (Tylenol Tab) 325 mg Q4H PRN PO MILD PAIN(1-3)OR ELEVATED TEMP; Start 11/18/18 at 12:30 Albuterol (Proventil 0.083% (Neb)) 2.5 mg Q6 PRN NEB WHEEZING AND SOB Last administered on 11/20/18 23:36; Admin Dose 2.5 MG; Start 11/18/18 at 12:30 Amiodarone HCl (Cordarone) 200 mg DAILY PO Last administered on 11/21/18 08:55; Admin Dose 200 MG; Start 11/19/18 at 09:00 Amlodipine Besylate (Norvasc) 5 mg QHS PO Last administered on 11/20/18 21:10; Admin Dose 5 MG; Start 11/18/18 at 21:00 Apixaban (Eliquis) 2.5 mg BID PO ; Start 11/18/18 at 21:00; Status Hold Ascorbic Acid (Vitamin C) 500 mg DAILY PO Last administered on 11/21/18 08:55; Admin Dose 500 MG; Start 11/19/18 at 09:00 Atorvastatin Calcium (Lipitor) 20 mg QHS PO Last administered on 11/20/18 21:09; Admin Dose 20 MG; Start 11/18/18 at 21:00 Citalopram Hydrobromide (Celexa) 10 mg DAILY PO Last administered on 11/21/18 08:55; Admin Dose 10 MG; Start 11/19/18 at 09:00 Docusate Sodium (Colace) 200 mg QHS PO Last administered on 11/20/18 21:10; Admin Dose 200 MG; Start 11/18/18 at 21:00 Folic Acid (Folic Acid) 1 mg DAILY PO Last administered on 11/21/18 08:55; Admin Dose 1 MG; Start 11/19/18 at 09:00 Insulin Detemir (Levemir) 6 units QHS SC Last administered on 11/20/18 21:27; Admin Dose 6 UNITS; Start 11/18/18 at 21:00 Levothyroxine Sodium (Synthroid) 100 mcg BEFORE BREAKFAST PO Last administered on 11/21/18 06:22; Admin Dose 100 MCG; Start 11/19/18 at 07:00 Lorazepam (Ativan) 1 mg Q8 PRN PO ANXIETY Last administered on 11/20/18 21:11; Admin Dose 1 MG; Start 11/18/18 at 12:30 Losartan Potassium (Cozaar) 50 mg BID PO Last administered on 11/21/18 08:56; Admin Dose 50 MG; Start 11/18/18 at 21:00 Metoprolol Tartrate (Lopressor) 25 mg BID PO Last administered on 11/21/18 08:56; Admin Dose 25 MG; Start 11/18/18 at 21:00 Pantoprazole (Protonix Tab) 40 mg DAILY PO Last administered on 11/21/18 08:55; Admin Dose 40 MG; Start 11/19/18 at 09:00 Prednisolone Acetate (Pred-Forte 1%) 1 drop BID RIGHT EYE Last administered on 11/21/18 08:31; Admin Dose 1 DROP; Start 11/18/18 at 21:00 Tramadol HCl (Ultram) 50 mg Q6H PRN PO PAIN Last administered on 11/19/18 09:27; Admin Dose 50 MG; Start 11/18/18 at 12:30 Trazodone HCl (Desyrel) 50 mg QHS PO Last administered on 11/20/18 21:10; Admin Dose 50 MG; Start 11/18/18 at 21:00 Zinc Sulfate (Zinc Sulfate) 220 mg DAILY PO Last administered on 11/21/18 08:55; Admin Dose 220 MG; Start 11/19/18 at 09:00 Morphine Sulfate (morphine) 6 mg Q4H PRN PO SEVERE PAIN LEVEL 7-10 Last administered on 11/21/18 09:10; Admin Dose 6 MG; Start 11/19/18 at 23:00 Mupirocin (Bactroban) 1 applic BID TOP Last administered on 11/21/18 08:57; Admin Dose 1 APPLIC; Start 11/20/18 at 13:00 PATTI MCQUEEN Nov 21, 2018 11:13
--- NOTE | 2018-11-21 13:08 | CONS ---
Date/Time of Note Date/Time of Note DATE: 11/21/18 TIME: 13:05 Assessment/Plan Assessment/Plan Result Diagram: 11/21/18 0617 11/21/18 0617 Results 24hrs Laboratory Tests Test 11/20/18 17:27 11/20/18 21:22 11/21/18 02:40 11/21/18 06:17 Bedside Glucose 141 195 171 White Blood Count 4.6 #L Red Blood Count 3.07 L Hemoglobin 9.0 L Hematocrit 30.6 L Mean Corpuscular 99.7 Volume Mean Corpuscular 29.3 Hemoglobin Mean Corpuscular 29.4 L Hemoglobin Concent Red Cell 16.2 H Distribution Width Platelet Count 168 Mean Platelet Volume 11.0 H Immature 0.600 H Granulocytes % Neutrophils % 65.4 Lymphocytes % 18.2 Monocytes % 13.9 H Eosinophils % 1.5 Basophils % 0.4 Nucleated Red Blood 0.0 Cells % Immature 0.030 Granulocytes # Neutrophils # 3.0 Lymphocytes # 0.8 Monocytes # 0.6 Eosinophils # 0.1 Basophils # 0.0 Nucleated Red Blood 0.0 Cells # Sodium Level 136 Potassium Level 4.1 Chloride Level 91 L Carbon Dioxide Level 32 H Anion Gap 13 Blood Urea Nitrogen 23 H Creatinine 2.69 H Est Glomerular 18 L Filtrat Rate mL/min Glucose Level 157 Calcium Level 8.8 Test 11/21/18 08:27 11/21/18 12:11 Bedside Glucose 156 112 Consultation Date/Type/Reason Admit Date/Time Nov 17, 2018 at 23:34 Initial Consult Date SUBJECTIVE: Pt is awake, alert, afebrile. Improving. VS: stable. T: 98.5 LABS: Reviewed. WBC-4.6 Indwelling right forearm AV fistula Chest x-ray yesterday revealed pulmonary edema Physical examination: GEN: This is obese well-developed elderly woman who is alert in no distress. HENT: Head atraumatic normocephalic sclera nonicteric ,neck is supple PULM: chest rise symmetrical, breath sounds diminished bases. Heart: S1-S2. Abdomen obese soft bowel sounds present. Extremities without cyanosis right forearm AV fistula patent Assessment: 1. CHF exacerbation 2. End-stage renal disease, on hemodialysis 3. Morbid obesity 4. Diabetes 5. Hypertension 6. MRSA colonization Plan: Patient remained stable. Continue to monitor off antibiotics. Bactroban to nares, follow pulmonary recommendations Exam/Review of Systems Vital Signs Vitals Vital Signs Date Temp Pulse Resp B/P (MAP) Pulse Ox O2 O2 Flow FiO2 Time Delivery Rate 11/21/18 98.5 82 18 135/63 96 11:20 (87) 11/21/18 5.0 06:07 11/21/18 Nasal 03:57 Cannula Intake and Output 11/20/18 11/20/18 11/21/18 1515:00 23:00 07:00 IntakeIntake Total 350 ml OutputOutput Total 3400 ml BalanceBalance -3050 ml Medications Medications Current Medications IV Flush (NS 3 ml) 3 ml PER PROTOCOL IV ; Start 11/18/18 at 00:00 Ondansetron HCl (Zofran Inj) 4 mg Q6H PRN IV NAUSEA AND/OR VOMITING Last administered on 11/20/18at 21:19; Admin Dose 4 MG; Start 11/18/18 at 00:00 Acetaminophen (Tylenol Tab) 650 mg Q6H PRN PO PAIN LEVEL 1-3 OR FEVER Last administered on 11/19/18at 11:18; Admin Dose 650 MG; Start 11/18/18 at 00:00 Famotidine (Pepcid Iv) 20 mg DAILY IV Last administered on 11/21/18at 08:55; Admin Dose 20 MG; Start 11/18/18 at 09:00 Heparin Sodium (Porcine) (Heparin (5000 Units/1ml)) 5,000 unit Q8 SC Last administered on 11/21/18at 05:59; Admin Dose 5,000 UNIT; Start 11/18/18 at 06:00 Diagnostic Test (Pha) (Accu-Chek) 1 ea 02 XX Last administered on 11/21/18at 02:45; Admin Dose 1 EA; Start 11/19/18 at 02:00 Insulin Aspart (Novolog Insulin Pen) NOVOLOG *MILD* ALGORITHM WITH MEALS BEDTIME SC Last administered on 11/21/18at 08:35; Admin Dose 1 UNIT; Start 11/18/18 at 17:55 Acetaminophen (Tylenol Tab) 325 mg Q4H PRN PO MILD PAIN(1-3)OR ELEVATED TEMP; Start 11/18/18 at 12:30 Albuterol (Proventil 0.083% (Neb)) 2.5 mg Q6 PRN NEB WHEEZING AND SOB Last administered on 11/20/18 23:36; Admin Dose 2.5 MG; Start 11/18/18 at 12:30 Amiodarone HCl (Cordarone) 200 mg DAILY PO Last administered on 11/21/18 08:55; Admin Dose 200 MG; Start 11/19/18 at 09:00 Amlodipine Besylate (Norvasc) 5 mg QHS PO Last administered on 11/20/18 21:10; Admin Dose 5 MG; Start 11/18/18 at 21:00 Apixaban (Eliquis) 2.5 mg BID PO ; Start 11/18/18 at 21:00; Status Hold Ascorbic Acid (Vitamin C) 500 mg DAILY PO Last administered on 11/21/18 08:55; Admin Dose 500 MG; Start 11/19/18 at 09:00 Atorvastatin Calcium (Lipitor) 20 mg QHS PO Last administered on 11/20/18 21:09; Admin Dose 20 MG; Start 11/18/18 at 21:00 Citalopram Hydrobromide (Celexa) 10 mg DAILY PO Last administered on 11/21/18 08:55; Admin Dose 10 MG; Start 11/19/18 at 09:00 Docusate Sodium (Colace) 200 mg QHS PO Last administered on 11/20/18 21:10; Admin Dose 200 MG; Start 11/18/18 at 21:00 Folic Acid (Folic Acid) 1 mg DAILY PO Last administered on 11/21/18 08:55; Admin Dose 1 MG; Start 11/19/18 at 09:00 Insulin Detemir (Levemir) 6 units QHS SC Last administered on 11/20/18 21:27; Admin Dose 6 UNITS; Start 11/18/18 at 21:00 Levothyroxine Sodium (Synthroid) 100 mcg BEFORE BREAKFAST PO Last administered on 11/21/18 06:22; Admin Dose 100 MCG; Start 11/19/18 at 07:00 Lorazepam (Ativan) 1 mg Q8 PRN PO ANXIETY Last administered on 11/20/18 21:11; Admin Dose 1 MG; Start 11/18/18 at 12:30 Losartan Potassium (Cozaar) 50 mg BID PO Last administered on 11/21/18 08:56; Admin Dose 50 MG; Start 11/18/18 at 21:00 Metoprolol Tartrate (Lopressor) 25 mg BID PO Last administered on 11/21/18 08:56; Admin Dose 25 MG; Start 11/18/18 at 21:00 Pantoprazole (Protonix Tab) 40 mg DAILY PO Last administered on 11/21/18 08:55; Admin Dose 40 MG; Start 11/19/18 at 09:00 Prednisolone Acetate (Pred-Forte 1%) 1 drop BID RIGHT EYE Last administered on 11/21/18 08:31; Admin Dose 1 DROP; Start 11/18/18 at 21:00 Tramadol HCl (Ultram) 50 mg Q6H PRN PO PAIN Last administered on 11/19/18 09:27; Admin Dose 50 MG; Start 11/18/18 at 12:30 Trazodone HCl (Desyrel) 50 mg QHS PO Last administered on 11/20/18 21:10; Admin Dose 50 MG; Start 11/18/18 at 21:00 Zinc Sulfate (Zinc Sulfate) 220 mg DAILY PO Last administered on 11/21/18 08:55; Admin Dose 220 MG; Start 11/19/18 at 09:00 Morphine Sulfate (morphine) 6 mg Q4H PRN PO SEVERE PAIN LEVEL 7-10 Last administered on 11/21/18 09:10; Admin Dose 6 MG; Start 11/19/18 at 23:00 Mupirocin (Bactroban) 1 applic BID TOP Last administered on 11/21/18 08:57; Admin Dose 1 APPLIC; Start 11/20/18 at 13:00 RICH HOLLAND Nov 21, 2018 13:08
--- NOTE | 2018-11-21 15:54 | PN ---
DATE: 11/21/2018 SUBJECTIVE: The patient is resting comfortably. She has no cough, shows no signs of respiratory dis tress. OBJECTIVE: VITAL SIGNS: Saturation is 96%. Temperature is 98.5, blood pressure 134/63, pulse rate is 82, respi rations 18. The patient had dialysis yesterday. HEART: Sinus rhythm. CHEST: Breath sounds are mostly clear, though somewhat distant. ABDOMEN: Soft. No distention or localized tenderness. No vomiting reported. EXTREMITIES: Show no edema. LABORATORY DATA: Show WBC 4600, hemoglobin 9, hematocrit 30.6, platelets within normal limits. The chemistry panel shows ____ sodium 136, potassium 4.1, glucose 157, BUN is 23, creatinine 2.69, blood culture shows no growth. IMPRESSION: 1. Shortness of breath, improving gradually, now almost back to her usual baseline status. 2. End-stage renal disease on dialysis. 3. History of hypertension. 4. History of type 2 diabetes mellitus. 5. Chronic anemia. PLAN: 1. Continue dialysis per lining setter to schedule. 2. Continue bronchodilator inhalation therapy to improve the pulmonary hygiene and clear the secreti ons. 3. The patient has been off antibiotics, stopped by the infectious disease and she remained stable. 4. Overall, patient's pulmonary status seems to be stable. I will sign off at this time. Discharge planning maybe started. Dictated By: JARRELL ESPINOZA MD SR/NTS Conf#: [id number] DID#: [id number] CC: ALEXUS VALENCIA MD;*EndCC*
--- NOTE | 2018-11-21 18:48 | NUR ---
No significant changed this shift. Continue with plan of care. VSS, no resp distress noted. Contact isolation observed at all times. Needs attended.
[2018-11-21] MEDS: traZODone 50 MG TAB PO SCH (21:50)
[2018-11-21] MEDS: DOCUSATE SODIUM 100 MG CAP PO SCH (21:50)
[2018-11-21] MEDS: ATORVASTATIN 20 MG TAB PO SCH (21:51)
[2018-11-21] MEDS: AMLODIPINE 5 MG TAB PO SCH (21:51)
[2018-11-21] MEDS: INSULIN DETEMIR [LEVEMIR] (100 UNITS/ML) SYG SC SCH (21:53)
[2018-11-22] VITALS (11 sets, daily range): BP systolic 100–128; BP diastolic 49–60; PULSE 58–85; RESP 16–18
[2018-11-22] MEDS: ACCU-CHEK XX SCH (02:00)
[2018-11-22] MEDS: ALBUTEROL 0.083% (NEB) 2.5 MG/3 ML AMP NEB PRN (04:46)
--- NOTE | 2018-11-22 05:27 | NUR ---
PT REMAIN IN STABLE CONDITION DURING SHIFT. DENIES ANY PAIN. BREATHING TREATMENT PER RT CARRIED OUT. WOUND CARE, AND DRESSING CHANGE PERFORMED PER WOUND PROTOCOL. ALL NEEDS ATTENDED TO . WILL ENDORSE TO DAY SHIFT FOR CONTINUITY OF CARE.
[2018-11-22] MEDS: HEPARIN 5,000 UNIT/1 ML VIAL SC SCH ×3 (06:12→21:59)
[2018-11-22] MEDS: LEVOTHYROXINE 100 MCG TAB PO SCH (06:19)
[2018-11-22] MEDS: morphine LIQ (10 MG/5 ML) CUP PO PRN (06:38)
[2018-11-22] MEDS: INSULIN ASPART [NOVOLOG] 3 ML PEN SC SCH ×4 (08:02→20:38)
[2018-11-22] MEDS: ASCORBIC ACID 500 MG TAB PO SCH (09:17)
[2018-11-22] MEDS: ZINC SULFATE 220 MG CAP PO SCH (09:17)
[2018-11-22] MEDS: FAMOTIDINE 20 MG INJ IV SCH (09:17)
[2018-11-22] MEDS: PANTOPRAZOLE (EC) 40 MG TAB PO SCH (09:18)
[2018-11-22] MEDS: FOLIC ACID 1 MG TAB PO SCH (09:18)
[2018-11-22] MEDS: AMIODARONE 200 MG TAB PO SCH (09:18)
[2018-11-22] MEDS: CITALOPRAM 20 MG TAB PO SCH (09:18)
[2018-11-22] MEDS: LOSARTAN 50 MG TAB PO SCH ×2 (09:19→20:29)
[2018-11-22] MEDS: METOPROLOL 25 MG TAB PO SCH ×2 (09:19→20:30)
[2018-11-22] MEDS: MUPIROCIN 2% 22 GM OINT TOP SCH ×2 (09:19→20:30)
[2018-11-22] MEDS: BALSAM PERU/CASTOR OIL 60 GM TUBE TOP SCH (09:20)
[2018-11-22] MEDS: PREDNISOLONE ACET 1% 5 ML OPH RIGHT EYE SCH ×2 (09:20→20:30)
--- NOTE | 2018-11-22 12:04 | PN ---
Date/Time of Note Date/Time of Note DATE: 11/22/18 TIME: 12:04 Assessment/Plan VTE Prophylaxis Risk score (from Ns)>0 risk: 7 SCD applied (from Ns): Yes Pharmacological prophylaxis: LMWH Lines/Catheters IV Catheter Type (from Nrs): Saline Lock Urinary Cath still in place: No Assessment/Plan Hospital Course -Shortness of breath secondary to pulmonary congestion rising from diastolic dysfunction of the heart. Dr. Louise is following from pulmonology standpoint. -Hemodialysis dependent end-stage renal disease. Dr. Mcdaniel is following from nephrology standpoint. -Diabetes mellitus type 2 hemoglobin A1c 6.0, continue Levemir and NovoLog per mild algorithm sliding scale. -Hypothyroidism, continue levothyroxine -Hypertension, continue patient's antihypertensive medication from group home facility. -Hyperlipidemia, continue statin Result Diagram: 11/21/18 0617 11/21/18 0617 Results 24hrs Laboratory Tests Test 11/21/18 12:11 11/21/18 17:34 11/21/18 21:48 11/22/18 07:57 Bedside Glucose 112 269 H 124 176 Subjective 24 Hr Interval Summary Free Text/Dictation Patient has no complaints Exam/Review of Systems Vital Signs Vitals Vital Signs Date Temp Pulse Resp B/P (MAP) Pulse Ox O2 O2 Flow FiO2 Time Delivery Rate 11/22/18 97.5 85 18 100/49 100 Nasal 6.0 11:17 (66) Cannula Intake and Output 11/21/18 11/21/18 11/22/18 1515:00 23:00 07:00 IntakeIntake Total 300 ml 400 ml 400 ml BalanceBalance 300 ml 400 ml 400 ml Exam Constitutional: well developed Head: normocephalic, atraumatic Neck: supple Respiratory: diminished breath sounds Cardiovascular: regular rate and rhythm Gastrointestinal: soft, non-tender Extremities: normal pulses Medications Medications Current Medications IV Flush (NS 3 ml) 3 ml PER PROTOCOL IV ; Start 11/18/18 at 00:00 Ondansetron HCl (Zofran Inj) 4 mg Q6H PRN IV NAUSEA AND/OR VOMITING Last administered on 11/20/18at 21:19; Admin Dose 4 MG; Start 11/18/18 at 00:00 Acetaminophen (Tylenol Tab) 650 mg Q6H PRN PO PAIN LEVEL 1-3 OR FEVER Last administered on 11/19/18 11:18; Admin Dose 650 MG; Start 11/18/18 at 00:00 Famotidine (Pepcid Iv) 20 mg DAILY IV Last administered on 11/22/18 09:17; Admin Dose 20 MG; Start 11/18/18 at 09:00 Heparin Sodium (Porcine) (Heparin (5000 Units/1ml)) 5,000 unit Q8 SC Last administered on 11/22/18 06:12; Admin Dose 5,000 UNIT; Start 11/18/18 at 06:00 Diagnostic Test (Pha) (Accu-Chek) 1 ea 02 XX Last administered on 11/21/18 02:45; Admin Dose 1 EA; Start 11/19/18 at 02:00 Insulin Aspart (Novolog Insulin Pen) NOVOLOG *MILD* ALGORITHM WITH MEALS BEDTIME SC Last administered on 11/22/18 08:02; Admin Dose 1 UNIT; Start 11/18/18 at 17:55 Acetaminophen (Tylenol Tab) 325 mg Q4H PRN PO MILD PAIN(1-3)OR ELEVATED TEMP; Start 11/18/18 at 12:30 Albuterol (Proventil 0.083% (Neb)) 2.5 mg Q6 PRN NEB WHEEZING AND SOB Last administered on 11/22/18 04:46; Admin Dose 2.5 MG; Start 11/18/18 at 12:30 Amiodarone HCl (Cordarone) 200 mg DAILY PO Last administered on 11/22/18 09:18; Admin Dose 200 MG; Start 11/19/18 at 09:00 Amlodipine Besylate (Norvasc) 5 mg QHS PO Last administered on 11/21/18 21:51; Admin Dose 5 MG; Start 11/18/18 at 21:00 Apixaban (Eliquis) 2.5 mg BID PO ; Start 11/18/18 at 21:00; Status Hold Ascorbic Acid (Vitamin C) 500 mg DAILY PO Last administered on 11/22/18 09:17; Admin Dose 500 MG; Start 11/19/18 at 09:00 Atorvastatin Calcium (Lipitor) 20 mg QHS PO Last administered on 11/21/18 21:51; Admin Dose 20 MG; Start 11/18/18 at 21:00 Citalopram Hydrobromide (Celexa) 10 mg DAILY PO Last administered on 11/22/18 09:18; Admin Dose 10 MG; Start 11/19/18 at 09:00 Docusate Sodium (Colace) 200 mg QHS PO Last administered on 11/21/18 21:50; Admin Dose 200 MG; Start 11/18/18 at 21:00 Folic Acid (Folic Acid) 1 mg DAILY PO Last administered on 11/22/18 09:18; Admin Dose 1 MG; Start 11/19/18 at 09:00 Insulin Detemir (Levemir) 6 units QHS SC Last administered on 11/21/18 21:53; Admin Dose 6 UNITS; Start 11/18/18 at 21:00 Levothyroxine Sodium (Synthroid) 100 mcg BEFORE BREAKFAST PO Last administered on 11/22/18 06:19; Admin Dose 100 MCG; Start 11/19/18 at 07:00 Lorazepam (Ativan) 1 mg Q8 PRN PO ANXIETY Last administered on 11/20/18 21:11; Admin Dose 1 MG; Start 11/18/18 at 12:30 Losartan Potassium (Cozaar) 50 mg BID PO Last administered on 11/22/18 09:19; Admin Dose 50 MG; Start 11/18/18 at 21:00 Metoprolol Tartrate (Lopressor) 25 mg BID PO Last administered on 11/22/18 09:19; Admin Dose 25 MG; Start 11/18/18 at 21:00 Pantoprazole (Protonix Tab) 40 mg DAILY PO Last administered on 11/22/18 09:18; Admin Dose 40 MG; Start 11/19/18 at 09:00 Prednisolone Acetate (Pred-Forte 1%) 1 drop BID RIGHT EYE Last administered on 11/22/18 09:20; Admin Dose 1 DROP; Start 11/18/18 at 21:00 Tramadol HCl (Ultram) 50 mg Q6H PRN PO PAIN Last administered on 11/19/18 09:27; Admin Dose 50 MG; Start 11/18/18 at 12:30 Trazodone HCl (Desyrel) 50 mg QHS PO Last administered on 11/21/18 21:50; Admin Dose 50 MG; Start 11/18/18 at 21:00 Zinc Sulfate (Zinc Sulfate) 220 mg DAILY PO Last administered on 11/22/18at 09:17; Admin Dose 220 MG; Start 11/19/18 at 09:00 Morphine Sulfate (morphine) 6 mg Q4H PRN PO SEVERE PAIN LEVEL 7-10 Last administered on 11/22/18 06:38; Admin Dose 6 MG; Start 11/19/18 at 23:00 Mupirocin (Bactroban) 1 applic BID TOP Last administered on 11/22/18 09:19; Admin Dose 1 APPLIC; Start 11/20/18 at 13:00 PATTI MCQUEEN Nov 22, 2018 12:04
--- NOTE | 2018-11-22 15:30 | NUR ---
PATIENT WAS COMPLAINING OF BURNING SENSATION UPON URINATION, NOTIFIED DR MCQUEEN NEW ORDER RECEIVED.
[2018-11-22] MEDS: traMADol 50 MG TAB PO PRN (17:40)
--- NOTE | 2018-11-22 18:30 | CONS ---
Date/Time of Note Date/Time of Note DATE: 11/22/18 TIME: 18:29 Assessment/Plan Assessment/Plan Hospital Course 62 Female ESRD on Hemodialysis Had a long stay at a residential Pulmonary facility who just came back to SNF presented with SOB & possible pneumonia. Her Last dialysis was Friday11/16/2017. Assessment/Plan - ESRD Hemodialysis dependent - DM / DM Nephropathy - Pneumonia - Hypertension - CAD / CHF - Chronic Anemia - Respiratory Insufficiency - Hyperphosphatemia PLAN: Recent Discharge from [facility] Will plan For dialysis today Monitor electrolytes IV Antibiotics Follow up with H/H Will recheck CXR today post Dialysis to get a better look at her lungs Will ask [facility] to arrange for Out patient dialysis. On bedside dialysis Feels Much Better Aiming for ~ 2-3 Kg off on dialysis as tolerates Monitor Lytes Follow up with H/H Plan for HD in AM Monitor H/H Follow up with [facility] PT/OT Result Diagram: 11/21/1817 11/21/1817 Results 24hrs Laboratory Tests Test 11/21/18 21:48 11/22/18 07:57 11/22/18 12:08 11/22/18 17:19 Bedside Glucose 124 176 153 180 Test 11/22/18 17:30 Urine Color YELLOW Urine Clarity TURBID A Urine pH 7.0 Urine Specific 1.024 [place] Urine Ketones NEGATIVE Urine Nitrite NEGATIVE Urine Bilirubin NEGATIVE Urine Urobilinogen NEGATIVE Urine Leukocyte 2+ H Esterase Urine Microscopic 95 H RBC Urine Microscopic > 182 H WBC Urine Bacteria FEW A Urine Hemoglobin 3+ H Urine Glucose NEGATIVE Urine Total Protein 2+ H Consultation Date/Type/Reason Admit Date/Time Nov 17, 2018 at 23:34 Initial Consult Date 11/18/18 Type of Consult NEPHROLOGY 24 HR Interval Summary Constitutional: no complaints, improved Exam/Review of Systems Vital Signs Vitals Vital Signs Date Temp Pulse Resp B/P (MAP) Pulse Ox O2 O2 Flow FiO2 Time Delivery Rate 11/22/18 64 16:01 11/22/18 6.0 15:52 11/22/18 97.5 18 114/52 100 Nasal 15:43 (72) Cannula Intake and Output 11/21/18 11/21/18 11/22/18 1515:00 23:00 07:00 IntakeIntake Total 300 ml 400 ml 400 ml BalanceBalance 300 ml 400 ml 400 ml Exam Constitutional: alert, oriented Respiratory: crackles/rales Cardiovascular: regular rate and rhythm, edema, systolic murmur Gastrointestinal: soft Medications Medications Current Medications IV Flush (NS 3 ml) 3 ml PER PROTOCOL IV ; Start 11/18/18 at 00:00 Ondansetron HCl (Zofran Inj) 4 mg Q6H PRN IV NAUSEA AND/OR VOMITING Last administered on 11/20/18at 21:19; Admin Dose 4 MG; Start 11/18/18 at 00:00 Acetaminophen (Tylenol Tab) 650 mg Q6H PRN PO PAIN LEVEL 1-3 OR FEVER Last administered on 11/19/18at 11:18; Admin Dose 650 MG; Start 11/18/18 at 00:00 Famotidine (Pepcid Iv) 20 mg DAILY IV Last administered on 11/22/18at 09:17; Admin Dose 20 MG; Start 11/18/18 at 09:00 Heparin Sodium (Porcine) (Heparin (5000 Units/1ml)) 5,000 unit Q8 SC Last administered on 11/22/18at 15:12; Admin Dose 5,000 UNIT; Start 11/18/18 at 06:00 Diagnostic Test (Pha) (Accu-Chek) 1 ea 02 XX Last administered on 11/21/18at 02:45; Admin Dose 1 EA; Start 11/19/18 at 02:00 Insulin Aspart (Novolog Insulin Pen) NOVOLOG *MILD* ALGORITHM WITH MEALS BEDTIME SC Last administered on 11/22/18 17:38; Admin Dose 1 UNIT; Start 11/18/18 at 17:55 Acetaminophen (Tylenol Tab) 325 mg Q4H PRN PO MILD PAIN(1-3)OR ELEVATED TEMP; Start 11/18/18 at 12:30 Albuterol (Proventil 0.083% (Neb)) 2.5 mg Q6 PRN NEB WHEEZING AND SOB Last administered on 11/22/18 04:46; Admin Dose 2.5 MG; Start 11/18/18 at 12:30 Amiodarone HCl (Cordarone) 200 mg DAILY PO Last administered on 11/22/18 09:18; Admin Dose 200 MG; Start 11/19/18 at 09:00 Amlodipine Besylate (Norvasc) 5 mg QHS PO Last administered on 11/21/18 21:51; Admin Dose 5 MG; Start 11/18/18 at 21:00 Apixaban (Eliquis) 2.5 mg BID PO ; Start 11/18/18 at 21:00; Status Hold Ascorbic Acid (Vitamin C) 500 mg DAILY PO Last administered on 11/22/18 09:17; Admin Dose 500 MG; Start 11/19/18 at 09:00 Atorvastatin Calcium (Lipitor) 20 mg QHS PO Last administered on 11/21/18 21:51; Admin Dose 20 MG; Start 11/18/18 at 21:00 Citalopram Hydrobromide (Celexa) 10 mg DAILY PO Last administered on 11/22/18 09:18; Admin Dose 10 MG; Start 11/19/18 at 09:00 Docusate Sodium (Colace) 200 mg QHS PO Last administered on 11/21/18 21:50; Admin Dose 200 MG; Start 11/18/18 at 21:00 Folic Acid (Folic Acid) 1 mg DAILY PO Last administered on 11/22/18 09:18; Admin Dose 1 MG; Start 11/19/18 at 09:00 Insulin Detemir (Levemir) 6 units QHS SC Last administered on 11/21/18 21:53; Admin Dose 6 UNITS; Start 11/18/18 at 21:00 Levothyroxine Sodium (Synthroid) 100 mcg BEFORE BREAKFAST PO Last administered on 11/22/18 06:19; Admin Dose 100 MCG; Start 11/19/18 at 07:00 Lorazepam (Ativan) 1 mg Q8 PRN PO ANXIETY Last administered on 11/20/18 21:11; Admin Dose 1 MG; Start 11/18/18 at 12:30 Losartan Potassium (Cozaar) 50 mg BID PO Last administered on 11/22/18 09:19; Admin Dose 50 MG; Start 11/18/18 at 21:00 Metoprolol Tartrate (Lopressor) 25 mg BID PO Last administered on 11/22/18 09:19; Admin Dose 25 MG; Start 11/18/18 at 21:00 Pantoprazole (Protonix Tab) 40 mg DAILY PO Last administered on 11/22/18 09:18; Admin Dose 40 MG; Start 11/19/18 at 09:00 Prednisolone Acetate (Pred-Forte 1%) 1 drop BID RIGHT EYE Last administered on 11/22/18 09:20; Admin Dose 1 DROP; Start 11/18/18 at 21:00 Tramadol HCl (Ultram) 50 mg Q6H PRN PO PAIN Last administered on 11/22/18 17:40; Admin Dose 50 MG; Start 11/18/18 at 12:30 Trazodone HCl (Desyrel) 50 mg QHS PO Last administered on 11/21/18 21:50; Admin Dose 50 MG; Start 11/18/18 at 21:00 Zinc Sulfate (Zinc Sulfate) 220 mg DAILY PO Last administered on 11/22/18 09:17; Admin Dose 220 MG; Start 11/19/18 at 09:00 Morphine Sulfate (morphine) 6 mg Q4H PRN PO SEVERE PAIN LEVEL 7-10 Last administered on 11/22/18 06:38; Admin Dose 6 MG; Start 11/19/18 at 23:00 Mupirocin (Bactroban) 1 applic BID TOP Last administered on 11/22/18 09:19; Admin Dose 1 APPLIC; Start 11/20/18 at 13:00 ANIBAL ALMANZAR MD Nov 22, 2018 18:30
--- NOTE | 2018-11-22 18:57 | NUR ---
EOSS pt in bed, no short of breath, c/o pain after straight cath, Ultram as ordered was administered, not in distress, continue with current plan of care.
--- NOTE | 2018-11-22 18:57 | NUR ---
SPOKE WITH [facility] REGARDING SCHEDULE OF DIALYSIS TOMORROW, CONFIRMATION # [id number].
[2018-11-22] MEDS: DOCUSATE SODIUM 100 MG CAP PO SCH (20:29)
[2018-11-22] MEDS: traZODone 50 MG TAB PO SCH (20:29)
[2018-11-22] MEDS: ATORVASTATIN 20 MG TAB PO SCH (20:29)
[2018-11-22] MEDS: AMLODIPINE 5 MG TAB PO SCH (20:30)
[2018-11-22] MEDS: INSULIN DETEMIR [LEVEMIR] (100 UNITS/ML) SYG SC SCH (20:37)
[2018-11-23] VITALS (24 sets, daily range): BP systolic 96–130; BP diastolic 44–60; PULSE 58–65; RESP 16–20
[2018-11-23] MEDS: ACCU-CHEK XX SCH (02:00)
[2018-11-23] MEDS: HEPARIN 5,000 UNIT/1 ML VIAL SC SCH ×3 (06:31→21:12)
--- NOTE | 2018-11-23 06:39 | NUR ---
PT A/O X4, IN STABLE CONDITION. NO SIGN OF ACUTE DISTRESS NOTED. HEMODIALYSIS FOR TODAY CONFIRMED. ALL NEEDS ATTENDED TO. WILL ENDORSE TO DAY SHIFT FOR CONTINUITY OF CARE.
[2018-11-23] MEDS: LEVOTHYROXINE 100 MCG TAB PO SCH (06:58)
[2018-11-23] MEDS: INSULIN ASPART [NOVOLOG] 3 ML PEN SC SCH ×4 (08:06→20:58)
[2018-11-23] MEDS: ASCORBIC ACID 500 MG TAB PO SCH (08:42)
[2018-11-23] MEDS: ZINC SULFATE 220 MG CAP PO SCH (08:42)
[2018-11-23] MEDS: PANTOPRAZOLE (EC) 40 MG TAB PO SCH (08:42)
[2018-11-23] MEDS: CITALOPRAM 20 MG TAB PO SCH (08:42)
[2018-11-23] MEDS: FAMOTIDINE 20 MG INJ IV SCH (08:42)
[2018-11-23] MEDS: PREDNISOLONE ACET 1% 5 ML OPH RIGHT EYE SCH ×2 (08:43→20:59)
[2018-11-23] MEDS: FOLIC ACID 1 MG TAB PO SCH (08:43)
[2018-11-23] MEDS: MUPIROCIN 2% 22 GM OINT TOP SCH ×2 (08:43→20:58)
[2018-11-23] MEDS: AMIODARONE 200 MG TAB PO SCH (08:44)
[2018-11-23] MEDS: METOPROLOL 25 MG TAB PO SCH ×2 (08:44→20:57)
[2018-11-23] MEDS: BALSAM PERU/CASTOR OIL 60 GM TUBE TOP SCH (08:44)
[2018-11-23] MEDS: LOSARTAN 50 MG TAB PO SCH ×2 (08:44→20:57)
[2018-11-23] MEDS: ONDANSETRON 4 MG INJ IV PRN ×2 (09:35→21:23)
[2018-11-23] MEDS: LORAZEPAM 1 MG TAB PO PRN (09:35)
--- NOTE | 2018-11-23 12:40 | NUR ---
Pt completed hemodialysis , pre ,during and post tx. pt remain hypotensive asymptomatic,vomit stopped. Total uf removal 2000 ml. Endorsed to primary RN Rashmi Torres.
--- NOTE | 2018-11-23 13:12 | PN ---
Date/Time of Note Date/Time of Note DATE: 11/23/18 TIME: 13:09 Assessment/Plan VTE Prophylaxis Risk score (from [facility] [place])>0 risk: 6 SCD applied (from [facility] [place]): Yes Pharmacological prophylaxis: NA/contraindicated, other Pharm contraindication: other Lines/Catheters IV C[facility]ter [facility] (from [facility] Saline Lock Urinary Cath still in place: No Assessment/Plan Hospital Course Patient is undergoing hemodialysis, continues on 6 L oxygen via nasal cannula, complains of occasional shortness of breath, no fever. Assessment/Plan -Shortness of breath secondary to pulmonary congestion rising from diastolic dysfunction of the heart. Dr. Louise is following from pulmonology standpoint. -Hemodialysis dependent end-stage renal disease. Dr. Mcdaniel is following from nephrology standpoint. -Diabetes mellitus type 2 hemoglobin A1c 6.0, continue Levemir and NovoLog per mild algorithm sliding scale. -Hypothyroidism, continue levothyroxine -Hypertension, [facility] -Hyperlipidemia, continue statin -MRSA of nares colonization Further recommendations based on clinical course. Plan of care discussed with Dr. Mandel. Result Diagram: 11/21/1817 11/21/1817 Results 24hrs Laboratory Tests Test 11/22/18 17:19 11/22/18 17:30 11/22/18 20:27 11/23/18 04:14 Bedside Glucose 180 189 156 Urine Color YELLOW Urine Clarity TURBID A Urine pH 7.0 Urine Specific 1.024 [place] Urine Ketones NEGATIVE Urine Nitrite NEGATIVE Urine Bilirubin NEGATIVE Urine Urobilinogen NEGATIVE Urine Leukocyte 2+ H Esterase Urine Microscopic 95 H RBC Urine Microscopic > 182 H WBC Urine Bacteria FEW A Urine Hemoglobin 3+ H Urine Glucose NEGATIVE Urine Total Protein 2+ H Test 11/23/18 07:52 11/23/18 11:39 Bedside Glucose 164 116 Exam/Review of Systems Vital Signs Vitals Vital Signs Date Temp Pulse Resp B/P (MAP) Pulse Ox O2 O2 Flow FiO2 Time Delivery Rate 11/23/18 18 99/48 (65) 95 Nasal 5.0 12:35 Cannula 11/23/18 65 12:30 11/23/18 97.9 11:57 Intake and Output 11/22/18 11/22/18 11/23/18 1414:59 22:59 06:59 IntakeIntake Total 400 ml 450 ml OutputOutput Total 100 ml BalanceBalance 300 ml 450 ml Exam Constitutional: alert, oriented Eyes: other (Right eye blindness) Respiratory: diminished breath sounds Cardiovascular: regular rate and rhythm Gastrointestinal: soft, non-tender Musculoskeletal: nl extremities to inspection Extremities: normal pulses, other (Right upper extremity AV fistula) Medications Medications Current Medications IV Flush (NS 3 ml) 3 ml PER PROTOCOL IV ; Start 11/18/18 at 00:00 Ondansetron HCl (Zofran Inj) 4 mg Q6H PRN IV NAUSEA AND/OR VOMITING Last administered on 11/23/18 09:35; Admin Dose 4 MG; Start 11/18/18 at 00:00 Acetaminophen (Tylenol Tab) 650 mg Q6H PRN PO PAIN LEVEL 1-3 OR FEVER Last administered on 11/19/18 11:18; Admin Dose 650 MG; Start 11/18/18 at 00:00 Famotidine (Pepcid Iv) 20 mg DAILY IV Last administered on 11/23/18 08:42; Admin Dose 20 MG; Start 11/18/18 at 09:00 Heparin Sodium (Porcine) (Heparin (5000 Units/1ml)) 5,000 unit Q8 SC Last administered on 11/23/18 06:31; Admin Dose 5,000 UNIT; Start 11/18/18 at 06:00 Diagnostic Test (Pha) (Accu-Chek) 1 ea 02 XX Last administered on 11/21/18 02:45; Admin Dose 1 EA; Start 11/19/18 at 02:00 Insulin Aspart (Novolog Insulin Pen) NOVOLOG *MILD* ALGORITHM WITH MEALS BEDTIME SC Last administered on 11/23/18 08:06; Admin Dose 1 UNIT; Start 11/18/18 at 17:55 Acetaminophen (Tylenol Tab) 325 mg Q4H PRN PO MILD PAIN(1-3)OR ELEVATED TEMP; Start 11/18/18 at 12:30 Albuterol (Proventil 0.083% (Neb)) 2.5 mg Q6 PRN NEB WHEEZING AND SOB Last administered on 11/22/18 04:46; Admin Dose 2.5 MG; Start 11/18/18 at 12:30 Amiodarone HCl (Cordarone) 200 mg DAILY PO Last administered on 11/23/18 08:44; Admin Dose 200 MG; Start 11/19/18 at 09:00 Amlodipine Besylate (Norvasc) 5 mg QHS PO Last administered on 11/22/18 20:30; Admin Dose 5 MG; Start 11/18/18 at 21:00 Apixaban (Eliquis) 2.5 mg BID PO ; Start 11/18/18 at 21:00; Status Hold Ascorbic Acid (Vitamin C) 500 mg DAILY PO Last administered on 11/23/18 08:42; Admin Dose 500 MG; Start 11/19/18 at 09:00 Atorvastatin Calcium (Lipitor) 20 mg QHS PO Last administered on 11/22/18 20:29; Admin Dose 20 MG; Start 11/18/18 at 21:00 Citalopram Hydrobromide (Celexa) 10 mg DAILY PO Last administered on 11/23/18 08:42; Admin Dose 10 MG; Start 11/19/18 at 09:00 Docusate Sodium (Colace) 200 mg QHS PO Last administered on 11/22/18 20:29; Admin Dose 200 MG; Start 11/18/18 at 21:00 Folic Acid (Folic Acid) 1 mg DAILY PO Last administered on 11/23/18 08:43; Admin Dose 1 MG; Start 11/19/18 at 09:00 Insulin Detemir (Levemir) 6 units QHS SC Last administered on 11/22/18 20:37; Admin Dose 6 UNITS; Start 11/18/18 at 21:00 Levothyroxine Sodium (Synthroid) 100 mcg BEFORE BREAKFAST PO Last administered on 11/23/18 06:58; Admin Dose 100 MCG; Start 11/19/18 at 07:00 Lorazepam (Ativan) 1 mg Q8 PRN PO ANXIETY Last administered on 11/23/18 09:35; Admin Dose 1 MG; Start 11/18/18 at 12:30 Losartan Potassium (Cozaar) 50 mg BID PO Last administered on 11/22/18 20:29; Admin Dose 50 MG; Start 11/18/18 at 21:00 Metoprolol Tartrate (Lopressor) 25 mg BID PO Last administered on 11/22/18 20:30; Admin Dose 25 MG; Start 11/18/18 at 21:00 Pantoprazole (Protonix Tab) 40 mg DAILY PO Last administered on 11/23/18 08:42; Admin Dose 40 MG; Start 11/19/18 at 09:00 Prednisolone Acetate (Pred-Forte 1%) 1 drop BID RIGHT EYE Last administered on 11/23/18 08:43; Admin Dose 1 DROP; Start 11/18/18 at 21:00 Tramadol HCl (Ultram) 50 mg Q6H PRN PO PAIN Last administered on 11/22/18 17:40; Admin Dose 50 MG; Start 11/18/18 at 12:30 Trazodone HCl (Desyrel) 50 mg QHS PO Last administered on 11/22/18 20:29; Admin Dose 50 MG; Start 11/18/18 at 21:00 Zinc Sulfate (Zinc Sulfate) 220 mg DAILY PO Last administered on 11/23/18 08:42; Admin Dose 220 MG; Start 11/19/18 at 09:00 Morphine Sulfate (morphine) 6 mg Q4H PRN PO SEVERE PAIN LEVEL 7-10 Last administered on 11/22/18 06:38; Admin Dose 6 MG; Start 11/19/18 at 23:00 Mupirocin (Bactroban) 1 applic BID TOP Last administered on 11/23/18 08:43; Admin Dose 1 APPLIC; Start 11/20/18 at 13:00 SIN IZAGUIRRE Nov 23, 2018 13:12
--- NOTE | 2018-11-23 13:19 | CONS ---
Date/Time of Note Date/Time of Note DATE: 11/23/18 TIME: 13:18 Assessment/Plan Assessment/Plan Hospital Course 62 Female ESRD on Hemodialysis Had a long stay at a retirement Pulmonary facility who just came back to SNF presented with SOB & possible pneumonia. Her Last dialysis was Friday11/16/2017. Assessment/Plan - ESRD Hemodialysis dependent - DM / DM Nephropathy - Pneumonia - Hypertension - CAD / CHF - Chronic Anemia - Respiratory Insufficiency - Hyperphosphatemia PLAN: Recent Discharge from a [facility] facility Will plan For dialysis today Monitor electrolytes IV Antibiotics Follow up with H/H Will recheck CXR today post Dialysis to get a better look at her lungs Will ask [employer] to arrange for Out patient dialysis. On bedside dialysis Feels Much Better Aiming for ~ 2-3 Kg off on dialysis as tolerates Monitor Lytes Follow up with H/H Plan for HD in AM Monitor H/H Follow up with [facility] Needs PT/OT - Bedside Dialysis - Aim for UF ~ 2-3 Kg - May need HD/UF again Shalonda ( she usually refuse daily ) - Follow up with H/H Result Diagram: 11/21/18 0617 11/21/18 0617 Results 24hrs Laboratory Tests Test 11/22/18 17:19 11/22/18 17:30 11/22/18 20:27 11/23/18 04:14 Bedside Glucose 180 189 156 Urine Color YELLOW Urine Clarity TURBID A Urine pH 7.0 Urine Specific 1.024 [place] Urine Ketones NEGATIVE Urine Nitrite NEGATIVE Urine Bilirubin NEGATIVE Urine Urobilinogen NEGATIVE Urine Leukocyte 2+ H Esterase Urine Microscopic 95 H RBC Urine Microscopic > 182 H WBC Urine Bacteria FEW A Urine Hemoglobin 3+ H Urine Glucose NEGATIVE Urine Total Protein 2+ H Test 11/23/18 07:52 11/23/18 11:39 Bedside Glucose 164 116 Consultation Date/Type/Reason Admit Date/Time Nov 17, 2018 at 23:34 Initial Consult Date 11/18/18 Type of Consult NEPHROLOGY Reason for Consultation - ESRD on hemodialysis - Volume Overloaded 24 HR Interval Summary Constitutional: no complaints, improved Exam/Review of Systems Vital Signs Vitals Vital Signs Date Temp Pulse Resp B/P (MAP) Pulse Ox O2 O2 Flow FiO2 Time Delivery Rate 11/23/18 18 99/48 (65) 95 Nasal 5.0 12:35 Cannula 11/23/18 65 12:30 11/23/18 97.9 11:57 Intake and Output 11/22/18 11/22/18 11/23/18 1515:00 23:00 07:00 IntakeIntake Total 400 ml 450 ml OutputOutput Total 100 ml BalanceBalance 300 ml 450 ml Exam Constitutional: alert, oriented Neck: jvd Respiratory: crackles/rales Cardiovascular: edema, systolic murmur Medications Medications Current Medications IV Flush (NS 3 ml) 3 ml PER PROTOCOL IV ; Start 11/18/18 at 00:00 Ondansetron HCl (Zofran Inj) 4 mg Q6H PRN IV NAUSEA AND/OR VOMITING Last administered on 11/23/18at 09:35; Admin Dose 4 MG; Start 11/18/18 at 00:00 Acetaminophen (Tylenol Tab) 650 mg Q6H PRN PO PAIN LEVEL 1-3 OR FEVER Last administered on 11/19/18at 11:18; Admin Dose 650 MG; Start 11/18/18 at 00:00 Famotidine (Pepcid Iv) 20 mg DAILY IV Last administered on 11/23/18 08:42; Admin Dose 20 MG; Start 11/18/18 at 09:00 Heparin Sodium (Porcine) (Heparin (5000 Units/1ml)) 5,000 unit Q8 SC Last administered on 11/23/18 06:31; Admin Dose 5,000 UNIT; Start 11/18/18 at 06:00 Diagnostic Test (Pha) (Accu-Chek) 1 ea 02 XX Last administered on 11/21/18 02:45; Admin Dose 1 EA; Start 11/19/18 at 02:00 Insulin Aspart (Novolog Insulin Pen) NOVOLOG *MILD* ALGORITHM WITH MEALS BEDTIME SC Last administered on 11/23/18 08:06; Admin Dose 1 UNIT; Start 11/18/18 at 17:55 Acetaminophen (Tylenol Tab) 325 mg Q4H PRN PO MILD PAIN(1-3)OR ELEVATED TEMP; Start 11/18/18 at 12:30 Albuterol (Proventil 0.083% (Neb)) 2.5 mg Q6 PRN NEB WHEEZING AND SOB Last administered on 11/22/18 04:46; Admin Dose 2.5 MG; Start 11/18/18 at 12:30 Amiodarone HCl (Cordarone) 200 mg DAILY PO Last administered on 11/23/18 08:44; Admin Dose 200 MG; Start 11/19/18 at 09:00 Amlodipine Besylate (Norvasc) 5 mg QHS PO Last administered on 11/22/18 20:30; Admin Dose 5 MG; Start 11/18/18 at 21:00 Apixaban (Eliquis) 2.5 mg BID PO ; Start 11/18/18 at 21:00; Status Hold Ascorbic Acid (Vitamin C) 500 mg DAILY PO Last administered on 11/23/18 08:42; Admin Dose 500 MG; Start 11/19/18 at 09:00 Atorvastatin Calcium (Lipitor) 20 mg QHS PO Last administered on 11/22/18 20:29; Admin Dose 20 MG; Start 11/18/18 at 21:00 Citalopram Hydrobromide (Celexa) 10 mg DAILY PO Last administered on 11/23/18 08:42; Admin Dose 10 MG; Start 11/19/18 at 09:00 Docusate Sodium (Colace) 200 mg QHS PO Last administered on 11/22/18 20:29; Admin Dose 200 MG; Start 11/18/18 at 21:00 Folic Acid (Folic Acid) 1 mg DAILY PO Last administered on 11/23/18 08:43; Admin Dose 1 MG; Start 11/19/18 at 09:00 Insulin Detemir (Levemir) 6 units QHS SC Last administered on 11/22/18 20:37; Admin Dose 6 UNITS; Start 11/18/18 at 21:00 Levothyroxine Sodium (Synthroid) 100 mcg BEFORE BREAKFAST PO Last administered on 11/23/18 06:58; Admin Dose 100 MCG; Start 11/19/18 at 07:00 Lorazepam (Ativan) 1 mg Q8 PRN PO ANXIETY Last administered on 11/23/18 09:35; Admin Dose 1 MG; Start 11/18/18 at 12:30 Losartan Potassium (Cozaar) 50 mg BID PO Last administered on 11/22/18 20:29; Admin Dose 50 MG; Start 11/18/18 at 21:00 Metoprolol Tartrate (Lopressor) 25 mg BID PO Last administered on 11/22/18 20:30; Admin Dose 25 MG; Start 11/18/18 at 21:00 Pantoprazole (Protonix Tab) 40 mg DAILY PO Last administered on 11/23/18 08:42; Admin Dose 40 MG; Start 11/19/18 at 09:00 Prednisolone Acetate (Pred-Forte 1%) 1 drop BID RIGHT EYE Last administered on 11/23/18 08:43; Admin Dose 1 DROP; Start 11/18/18 at 21:00 Tramadol HCl (Ultram) 50 mg Q6H PRN PO PAIN Last administered on 11/22/18 17:40; Admin Dose 50 MG; Start 11/18/18 at 12:30 Trazodone HCl (Desyrel) 50 mg QHS PO Last administered on 11/22/18 20:29; Admin Dose 50 MG; Start 11/18/18 at 21:00 Zinc Sulfate (Zinc Sulfate) 220 mg DAILY PO Last administered on 11/23/18 08:42; Admin Dose 220 MG; Start 11/19/18 at 09:00 Morphine Sulfate (morphine) 6 mg Q4H PRN PO SEVERE PAIN LEVEL 7-10 Last administered on 11/22/18at 06:38; Admin Dose 6 MG; Start 11/19/18 at 23:00 Mupirocin (Bactroban) 1 applic BID TOP Last administered on 11/23/18at 08:43; Admin Dose 1 APPLIC; Start 11/20/18 at 13:00 ANIBAL ALMANZAR MD Nov 23, 2018 13:19
--- NOTE | 2018-11-23 15:22 | CONS ---
Date/Time of Note Date/Time of Note DATE: 11/23/18 TIME: 15:22 Assessment/Plan Assessment/Plan Hospital Course 1200 Patient is sleeping she is in hemodialysis, no fevers overnight, no labs Indwelling: right forearm AV fistula Physical examination: This is obese well-developed elderly woman who is alert in no distress. Head atraumatic normocephalic sclera nonicteric neck is supple chest rise symmetrical breath sounds diminished bases. Heart: S1-S2. Abdomen obese soft bowel sounds present. Extremities without cyanosis right forearm AV fistula patent Assessment: 1. CHF exacerbation 2. End-stage renal disease, on hemodialysis 3. Morbid obesity 4. Diabetes 5. Hypertension 6. MRSA colonization Plan: Patient remained stable, off antibiotics, continue Bactroban to nares, follow pulmonary/renal recommendations Result Diagram: 11/21/18 0617 11/21/18 0617 Results 24hrs Laboratory Tests Test 11/22/18 17:19 11/22/18 17:30 11/22/18 20:27 11/23/18 04:14 Bedside Glucose 180 189 156 Urine Color YELLOW Urine Clarity TURBID A Urine pH 7.0 Urine Specific 1.024 [place] Urine Ketones NEGATIVE Urine Nitrite NEGATIVE Urine Bilirubin NEGATIVE Urine Urobilinogen NEGATIVE Urine Leukocyte 2+ H Esterase Urine Microscopic 95 H RBC Urine Microscopic > 182 H WBC Urine Bacteria FEW A Urine Hemoglobin 3+ H Urine Glucose NEGATIVE Urine Total Protein 2+ H Test 11/23/18 07:52 11/23/18 11:39 Bedside Glucose 164 116 Consultation Date/Type/Reason Admit Date/Time Nov 17, 2018 at 23:34 Initial Consult Date 11/18/18 Type of Consult id Exam/Review of Systems Vital Signs Vitals Vital Signs Date Temp Pulse Resp B/P (MAP) Pulse Ox O2 O2 Flow FiO2 Time Delivery Rate 11/23/18 98.9 61 17 114/57 92 15:02 (76) 11/23/18 5.0 14:17 11/23/18 Nasal 12:35 Cannula Intake and Output 11/22/18 11/22/18 11/23/18 1515:00 23:00 07:00 IntakeIntake Total 400 ml 450 ml OutputOutput Total 100 ml BalanceBalance 300 ml 450 ml Medications Medications Current Medications IV Flush (NS 3 ml) 3 ml PER PROTOCOL IV ; Start 11/18/18 at 00:00 Ondansetron HCl (Zofran Inj) 4 mg Q6H PRN IV NAUSEA AND/OR VOMITING Last administered on 11/23/18 09:35; Admin Dose 4 MG; Start 11/18/18 at 00:00 Acetaminophen (Tylenol Tab) 650 mg Q6H PRN PO PAIN LEVEL 1-3 OR FEVER Last administered on 11/19/18 11:18; Admin Dose 650 MG; Start 11/18/18 at 00:00 Famotidine (Pepcid Iv) 20 mg DAILY IV Last administered on 11/23/18 08:42; Admin Dose 20 MG; Start 11/18/18 at 09:00 Heparin Sodium (Porcine) (Heparin (5000 Units/1ml)) 5,000 unit Q8 SC Last administered on 11/23/18 14:17; Admin Dose 5,000 UNIT; Start 11/18/18 at 06:00 Diagnostic Test (Pha) (Accu-Chek) 1 ea 02 XX Last administered on 11/21/18 02:45; Admin Dose 1 EA; Start 11/19/18 at 02:00 Insulin Aspart (Novolog Insulin Pen) NOVOLOG *MILD* ALGORITHM WITH MEALS BEDTIME SC Last administered on 11/23/18 08:06; Admin Dose 1 UNIT; Start 11/18/18 at 17:55 Acetaminophen (Tylenol Tab) 325 mg Q4H PRN PO MILD PAIN(1-3)OR ELEVATED TEMP; Start 11/18/18 at 12:30 Albuterol (Proventil 0.083% (Neb)) 2.5 mg Q6 PRN NEB WHEEZING AND SOB Last administered on 11/22/18 04:46; Admin Dose 2.5 MG; Start 11/18/18 at 12:30 Amiodarone HCl (Cordarone) 200 mg DAILY PO Last administered on 11/23/18 08:44; Admin Dose 200 MG; Start 11/19/18 at 09:00 Amlodipine Besylate (Norvasc) 5 mg QHS PO Last administered on 11/22/18 20:30; Admin Dose 5 MG; Start 11/18/18 at 21:00 Apixaban (Eliquis) 2.5 mg BID PO ; Start 11/18/18 at 21:00; Status Hold Ascorbic Acid (Vitamin C) 500 mg DAILY PO Last administered on 11/23/18 08:42; Admin Dose 500 MG; Start 11/19/18 at 09:00 Atorvastatin Calcium (Lipitor) 20 mg QHS PO Last administered on 11/22/18 20:29; Admin Dose 20 MG; Start 11/18/18 at 21:00 Citalopram Hydrobromide (Celexa) 10 mg DAILY PO Last administered on 11/23/18 08:42; Admin Dose 10 MG; Start 11/19/18 at 09:00 Docusate Sodium (Colace) 200 mg QHS PO Last administered on 11/22/18 20:29; Admin Dose 200 MG; Start 11/18/18 at 21:00 Folic Acid (Folic Acid) 1 mg DAILY PO Last administered on 11/23/18 08:43; Admin Dose 1 MG; Start 11/19/18 at 09:00 Insulin Detemir (Levemir) 6 units QHS SC Last administered on 11/22/18 20:37; Admin Dose 6 UNITS; Start 11/18/18 at 21:00 Levothyroxine Sodium (Synthroid) 100 mcg BEFORE BREAKFAST PO Last administered on 11/23/18 06:58; Admin Dose 100 MCG; Start 11/19/18 at 07:00 Lorazepam (Ativan) 1 mg Q8 PRN PO ANXIETY Last administered on 11/23/18 09:35; Admin Dose 1 MG; Start 11/18/18 at 12:30 Losartan Potassium (Cozaar) 50 mg BID PO Last administered on 11/22/18 20:29; Admin Dose 50 MG; Start 11/18/18 at 21:00 Metoprolol Tartrate (Lopressor) 25 mg BID PO Last administered on 11/22/18 20:30; Admin Dose 25 MG; Start 11/18/18 at 21:00 Pantoprazole (Protonix Tab) 40 mg DAILY PO Last administered on 11/23/18 08:42; Admin Dose 40 MG; Start 11/19/18 at 09:00 Prednisolone Acetate (Pred-Forte 1%) 1 drop BID RIGHT EYE Last administered on 11/23/18 08:43; Admin Dose 1 DROP; Start 11/18/18 at 21:00 Tramadol HCl (Ultram) 50 mg Q6H PRN PO PAIN Last administered on 11/22/18 17:40; Admin Dose 50 MG; Start 11/18/18 at 12:30 Trazodone HCl (Desyrel) 50 mg QHS PO Last administered on 11/22/18 20:29; Admin Dose 50 MG; Start 11/18/18 at 21:00 Zinc Sulfate (Zinc Sulfate) 220 mg DAILY PO Last administered on 11/23/18 08:42; Admin Dose 220 MG; Start 11/19/18 at 09:00 Morphine Sulfate (morphine) 6 mg Q4H PRN PO SEVERE PAIN LEVEL 7-10 Last administered on 11/22/18 06:38; Admin Dose 6 MG; Start 11/19/18 at 23:00 Mupirocin (Bactroban) 1 applic BID TOP Last administered on 11/23/18 08:43; Admin Dose 1 APPLIC; Start 11/20/18 at 13:00 ALYX NAVARRO NP Nov 23, 2018 15:22
--- NOTE | 2018-11-23 19:00 | NUR ---
EOSS: Pt stable, SB-SR on monitor, A/O x 2-3, bedrest, kept pt clean, dry & repositioned. HD done today, ptw. No s/sx of distress. All needs attended at this time. Will endorse plan of care to oncoming shift accordingly.
[2018-11-23] MEDS: DOCUSATE SODIUM 100 MG CAP PO SCH (20:56)
[2018-11-23] MEDS: ATORVASTATIN 20 MG TAB PO SCH (20:57)
[2018-11-23] MEDS: traZODone 50 MG TAB PO SCH (20:57)
[2018-11-23] MEDS: AMLODIPINE 5 MG TAB PO SCH (20:58)
[2018-11-23] MEDS: INSULIN DETEMIR [LEVEMIR] (100 UNITS/ML) SYG SC SCH (21:13)
[2018-11-24] VITALS (13 sets, daily range): BP systolic 95–117; BP diastolic 51–55; PULSE 50–61; RESP 16–20
[2018-11-24] MEDS: ACCU-CHEK XX SCH (02:00)
[2018-11-24] MEDS: HEPARIN 5,000 UNIT/1 ML VIAL SC SCH ×3 (05:45→21:13)
[2018-11-24] MEDS: LEVOTHYROXINE 100 MCG TAB PO SCH (06:45)
--- NOTE | 2018-11-24 07:01 | NUR ---
Pt a/a/ox3, VS stable, afebrile. Desaturated on 6 lt , now she is on O2 12 lt by simple mask. SOB at rest. Continue to monitor.
[2018-11-24] MEDS: INSULIN ASPART [NOVOLOG] 3 ML PEN SC SCH ×4 (07:53→21:00)
[2018-11-24] MEDS: ZINC SULFATE 220 MG CAP PO SCH (08:35)
[2018-11-24] MEDS: METOPROLOL 25 MG TAB PO SCH ×2 (08:35→21:01)
[2018-11-24] MEDS: ONDANSETRON 4 MG INJ IV PRN ×2 (08:39→14:22)
[2018-11-24] MEDS: FAMOTIDINE 20 MG TAB PO SCH (08:42)
[2018-11-24] MEDS: AMIODARONE 200 MG TAB PO SCH (08:42)
[2018-11-24] MEDS: FOLIC ACID 1 MG TAB PO SCH (08:42)
[2018-11-24] MEDS: MUPIROCIN 2% 22 GM OINT TOP SCH ×2 (08:42→21:03)
[2018-11-24] MEDS: ASCORBIC ACID 500 MG TAB PO SCH (08:42)
[2018-11-24] MEDS: PREDNISOLONE ACET 1% 5 ML OPH RIGHT EYE SCH ×2 (08:42→21:02)
[2018-11-24] MEDS: LOSARTAN 50 MG TAB PO SCH ×2 (08:42→21:00)
[2018-11-24] MEDS: CITALOPRAM 20 MG TAB PO SCH (08:42)
[2018-11-24] MEDS: PANTOPRAZOLE (EC) 40 MG TAB PO SCH (08:42)
[2018-11-24] MEDS: BALSAM PERU/CASTOR OIL 60 GM TUBE TOP SCH (08:43)
[2018-11-24] MEDS: morphine LIQ (10 MG/5 ML) CUP PO PRN ×3 (09:06→22:45)
--- NOTE | 2018-11-24 14:48 | PN ---
Date/Time of Note Date/Time of Note DATE: 11/24/18 TIME: 14:44 Assessment/Plan VTE Prophylaxis Risk score (from Ns)>0 risk: 6 SCD applied (from Ns): Yes Pharmacological prophylaxis: heparin Lines/Catheters IV Catheter Type (from Nrs): Saline Lock Urinary Cath still in place: No Assessment/Plan Hospital Course Patient desaturated on supplemental oxygen via nasal cannula currently on simple mask, complaints of generalized pain, remains hemodynamically stable, afebrile. Assessment/Plan -Shortness of breath secondary to pulmonary congestion rising from diastolic dysfunction of the heart. Dr. Louise is following from pulmonology standpoint. -Hemodialysis dependent end-stage renal disease. Dr. Mcdaniel is following from nephrology standpoint. -Diabetes mellitus type 2 hemoglobin A1c 6.0, continue Levemir and NovoLog per mild algorithm sliding scale. -Hypothyroidism, continue levothyroxine -Hypertension, continue patient's [facility]hypert[facility] medication from [facility]. -Hyperlipidemia, continue statin -MRSA of nares colonization Further recommendations based on clinical course. Plan of care discussed with Dr. Mandel. Result Diagram: 11/24/1824 11/24/1824 Results 24hrs Laboratory Tests Test 11/23/18 18:10 11/23/18 20:54 11/24/18 06:24 11/24/18 07:50 Bedside Glucose 124 106 121 White Blood Count 4.8 Red Blood Count 3.20 L Hemoglobin 9.4 L Hematocrit 32.1 L Mean Corpuscular 100.3 Volume Mean Corpuscular 29.4 Hemoglobin Mean Corpuscular 29.3 L Hemoglobin Concent Red Cell 16.0 H Distribution Width Platelet Count 146 Mean Platelet Volume 10.8 H Immature 0.600 H Granulocytes % Neutrophils % 71.9 Lymphocytes % 17.3 Monocytes % 8.8 Eosinophils % 0.6 Basophils % 0.8 Nucleated Red Blood 0.0 Cells % Immature 0.030 Granulocytes # Neutrophils # 3.4 Lymphocytes # 0.8 Monocytes # 0.4 Eosinophils # 0.0 Basophils # 0.0 Nucleated Red Blood 0.0 Cells # Sodium Level 137 Potassium Level 4.4 Chloride Level 97 Carbon Dioxide Level 27 Anion Gap 13 Blood Urea Nitrogen 25 H Creatinine 3.18 H Est Glomerular 15 L Filtrat Rate mL/min Glucose Level 117 Calcium Level 9.1 Phosphorus Level 6.3 H Magnesium Level 2.1 Test 11/24/18 12:00 Bedside Glucose 138 Exam/Review of Systems Vital Signs Vitals Vital Signs Date Temp Pulse Resp B/P (MAP) Pulse Ox O2 O2 Flow FiO2 Time Delivery Rate 11/24/18 59 12:01 11/24/18 98.0 18 117/55 97 11:19 (75) 11/24/18 Nasal 6.0 08:30 Cannula 11/24/18 60 04:35 Intake and Output 11/23/18 11/23/18 11/24/18 1515:00 23:00 07:00 IntakeIntake Total 300 ml 200 ml OutputOutput Total 200 ml BalanceBalance -200 ml 300 ml 200 ml Exam Constitutional: alert, oriented Eyes: other (Right eye blindness) Respiratory: diminished breath sounds Cardiovascular: regular rate and rhythm Gastrointestinal: soft, non-tender Musculoskeletal: nl extremities to inspection Extremities: normal pulses, other (Right upper extremity AV fistula) Medications Medications Current Medications IV Flush (NS 3 ml) 3 ml PER PROTOCOL IV ; Start 11/18/18 at 00:00 Ondansetron HCl (Zofran Inj) 4 mg Q6H PRN IV NAUSEA AND/OR VOMITING Last administered on 11/24/18at 14:22; Admin Dose 4 MG; Start 11/18/18 at 00:00 Acetaminophen (Tylenol Tab) 650 mg Q6H PRN PO PAIN LEVEL 1-3 OR FEVER Last administered on 11/19/18at 11:18; Admin Dose 650 MG; Start 11/18/18 at 00:00 Heparin Sodium (Porcine) (Heparin (5000 Units/1ml)) 5,000 unit Q8 SC Last administered on 11/24/18at 14:29; Admin Dose 5,000 UNIT; Start 11/18/18 at 06:00 Diagnostic Test (Pha) (Accu-Chek) 1 ea 02 XX Last administered on 11/21/18at 02:45; Admin Dose 1 EA; Start 11/19/18 at 02:00 Insulin Aspart (Novolog Insulin Pen) NOVOLOG *MILD* ALGORITHM WITH MEALS BEDTIME SC Last administered on 11/23/18 08:06; Admin Dose 1 UNIT; Start 11/18/18 at 17:55 Acetaminophen (Tylenol Tab) 325 mg Q4H PRN PO MILD PAIN(1-3)OR ELEVATED TEMP; Start 11/18/18 at 12:30 Albuterol (Proventil 0.083% (Neb)) 2.5 mg Q6 PRN NEB WHEEZING AND SOB Last administered on 11/22/18 04:46; Admin Dose 2.5 MG; Start 11/18/18 at 12:30 Amiodarone HCl (Cordarone) 200 mg DAILY PO Last administered on 11/24/18 08:42; Admin Dose 200 MG; Start 11/19/18 at 09:00 Amlodipine Besylate (Norvasc) 5 mg QHS PO Last administered on 11/23/18 20:58; Admin Dose 5 MG; Start 11/18/18 at 21:00 Apixaban (Eliquis) 2.5 mg BID PO ; Start 11/18/18 at 21:00; Status Hold Ascorbic Acid (Vitamin C) 500 mg DAILY PO Last administered on 11/24/18 08:42; Admin Dose 500 MG; Start 11/19/18 at 09:00 Atorvastatin Calcium (Lipitor) 20 mg QHS PO Last administered on 11/23/18 20: 57; Admin Dose 20 MG; Start 11/18/18 at 21:00 Citalopram Hydrobromide (Celexa) 10 mg DAILY PO Last administered on 11/24/18 08:42; Admin Dose 10 MG; Start 11/19/18 at 09:00 Docusate Sodium (Colace) 200 mg QHS PO Last administered on 11/23/18 20:56; Admin Dose 200 MG; Start 11/18/18 at 21:00 Folic Acid (Folic Acid) 1 mg DAILY PO Last administered on 11/24/18 08:42; Admin Dose 1 MG; Start 11/19/18 at 09:00 Insulin Detemir (Levemir) 6 units QHS SC Last administered on 11/23/18 21:13; Admin Dose 6 UNITS; Start 11/18/18 at 21:00 Levothyroxine Sodium (Synthroid) 100 mcg BEFORE BREAKFAST PO Last administered on 11/24/18 06:45; Admin Dose 100 MCG; Start 11/19/18 at 07:00 Lorazepam (Ativan) 1 mg Q8 PRN PO ANXIETY Last administered on 11/23/18 09:35; Admin Dose 1 MG; Start 11/18/18 at 12:30 Losartan Potassium (Cozaar) 50 mg BID PO Last administered on 11/24/18 08:42; Admin Dose 50 MG; Start 11/18/18 at 21:00 Metoprolol Tartrate (Lopressor) 25 mg BID PO Last administered on 11/24/18 0 8:35; Admin Dose 25 MG; Start 11/18/18 at 21:00 Pantoprazole (Protonix Tab) 40 mg DAILY PO Last administered on 11/24/18 08:42; Admin Dose 40 MG; Start 11/19/18 at 09:00 Prednisolone Acetate (Pred-Forte 1%) 1 drop BID RIGHT EYE Last administered on 11/24/18 08:42; Admin Dose 1 DROP; Start 11/18/18 at 21:00 Tramadol HCl (Ultram) 50 mg Q6H PRN PO PAIN Last administered on 11/22/18 17:40; Admin Dose 50 MG; Start 11/18/18 at 12:30 Trazodone HCl (Desyrel) 50 mg QHS PO Last administered on 11/23/18 20:57; Admin Dose 50 MG; Start 11/18/18 at 21:00 Zinc Sulfate (Zinc Sulfate) 220 mg DAILY PO Last administered on 11/24/18 08:35; Admin Dose 220 MG; Start 11/19/18 at 09:00 Morphine Sulfate (morphine) 6 mg Q4H PRN PO SEVERE PAIN LEVEL 7-10 Last administered on 11/24/18 14:22; Admin Dose 6 MG; Start 11/19/18 at 23:00 Mupirocin (Bactroban) 1 applic BID TOP Last administered on 11/24/18 08:42; Admin Dose 1 APPLIC; Start 11/20/18 at 13:00 Famotidine (Pepcid) 20 mg DAILY PO Last administered on 11/24/18 08:42; Admin Dose 20 MG; Start 11/24/18 at 09:00 SIN IZAGUIRRE Nov 24, 2018 14:48
--- NOTE | 2018-11-24 15:20 | CONS ---
Date/Time of Note Date/Time of Note DATE: 11/24/18 TIME: 15:20 Assessment/Plan Assessment/Plan Hospital Course No acute changes patient looks comfortable, no fevers overnight Indwelling: right forearm AV fistula Physical examination: This is obese well-developed elderly woman who is alert in no distress. Head atraumatic normocephalic sclera nonicteric neck is supple chest rise symmetrical breath sounds diminished bases. Heart: S1-S2. Abdomen obese soft bowel sounds present. Extremities without cyanosis right forearm AV fistula patent Assessment: 1. CHF exacerbation 2. End-stage renal disease, on hemodialysis 3. Morbid obesity 4. Diabetes 5. Hypertension 6. MRSA colonization Plan: Patient remained stable, off antibiotics, continue Bactroban to nares, follow pulmonary/renal recommendations Result Diagram: 11/24/18 0624 11/24/18 0624 Results 24hrs Laboratory Tests Test 11/23/18 18:10 11/23/18 20:54 11/24/18 06:24 11/24/18 07:50 Bedside Glucose 124 106 121 White Blood Count 4.8 Red Blood Count 3.20 L Hemoglobin 9.4 L Hematocrit 32.1 L Mean Corpuscular 100.3 Volume Mean Corpuscular 29.4 Hemoglobin Mean Corpuscular 29.3 L Hemoglobin Concent Red Cell 16.0 H Distribution Width Platelet Count 146 Mean Platelet Volume 10.8 H Immature 0.600 H Granulocytes % Neutrophils % 71.9 Lymphocytes % 17.3 Monocytes % 8.8 Eosinophils % 0.6 Basophils % 0.8 Nucleated Red Blood 0.0 Cells % Immature 0.030 Granulocytes # Neutrophils # 3.4 Lymphocytes # 0.8 Monocytes # 0.4 Eosinophils # 0.0 Basophils # 0.0 Nucleated Red Blood 0.0 Cells # Sodium Level 137 Potassium Level 4.4 Chloride Level 97 Carbon Dioxide Level 27 Anion Gap 13 Blood Urea Nitrogen 25 H Creatinine 3.18 H Est Glomerular 15 L Filtrat Rate mL/min Glucose Level 117 Calcium Level 9.1 Phosphorus Level 6.3 H Magnesium Level 2.1 Test 11/24/18 12:00 Bedside Glucose 138 Consultation Date/Type/Reason Admit Date/Time Nov 17, 2018 at 23:34 Initial Consult Date 11/18/18 Type of Consult id Exam/Review of Systems Vital Signs Vitals Vital Signs Date Temp Pulse Resp B/P (MAP) Pulse Ox O2 O2 Flow FiO2 Time Delivery Rate 11/24/18 97.8 56 16 97/51 (66) 97 15:14 11/24/18 8.0 14:52 11/24/18 Nasal 08:30 Cannula 11/24/18 60 04:35 Intake and Output 11/23/18 11/23/18 11/24/18 1515:00 23:00 07:00 IntakeIntake Total 300 ml 200 ml OutputOutput Total 200 ml BalanceBalance -200 ml 300 ml 200 ml Medications Medications Current Medications IV Flush (NS 3 ml) 3 ml PER PROTOCOL IV ; Start 11/18/18 at 00:00 Ondansetron HCl (Zofran Inj) 4 mg Q6H PRN IV NAUSEA AND/OR VOMITING Last administered on 11/24/18 14:22; Admin Dose 4 MG; Start 11/18/18 at 00:00 Acetaminophen (Tylenol Tab) 650 mg Q6H PRN PO PAIN LEVEL 1-3 OR FEVER Last administered on 11/19/18 11:18; Admin Dose 650 MG; Start 11/18/18 at 00:00 Heparin Sodium (Porcine) (Heparin (5000 Units/1ml)) 5,000 unit Q8 SC Last administered on 11/24/18 14:29; Admin Dose 5,000 UNIT; Start 11/18/18 at 06:00 Diagnostic Test (Pha) (Accu-Chek) 1 ea 02 XX Last administered on 11/21/18 02:45; Admin Dose 1 EA; Start 11/19/18 at 02:00 Insulin Aspart (Novolog Insulin Pen) NOVOLOG *MILD* ALGORITHM WITH MEALS BEDTIME SC Last administered on 11/23/18 08:06; Admin Dose 1 UNIT; Start 11/18/18 at 17:55 Acetaminophen (Tylenol Tab) 325 mg Q4H PRN PO MILD PAIN(1-3)OR ELEVATED TEMP; Start 11/18/18 at 12:30 Albuterol (Proventil 0.083% (Neb)) 2.5 mg Q6 PRN NEB WHEEZING AND SOB Last administered on 11/22/18 04:46; Admin Dose 2.5 MG; Start 11/18/18 at 12:30 Amiodarone HCl (Cordarone) 200 mg DAILY PO Last administered on 11/24/18at 0 8:42; Admin Dose 200 MG; Start 11/19/18 at 09:00 Amlodipine Besylate (Norvasc) 5 mg QHS PO Last administered on 11/23/18 20:58; Admin Dose 5 MG; Start 11/18/18 at 21:00 Apixaban (Eliquis) 2.5 mg BID PO ; Start 11/18/18 at 21:00; Status Hold Ascorbic Acid (Vitamin C) 500 mg DAILY PO Last administered on 11/24/18 08:42; Admin Dose 500 MG; Start 11/19/18 at 09:00 Atorvastatin Calcium (Lipitor) 20 mg QHS PO Last administered on 11/23/18 20:57; Admin Dose 20 MG; Start 11/18/18 at 21:00 Citalopram Hydrobromide (Celexa) 10 mg DAILY PO Last administered on 11/24/18 08:42; Admin Dose 10 MG; Start 11/19/18 at 09:00 Docusate Sodium (Colace) 200 mg QHS PO Last administered on 11/23/18 20:56; Admin Dose 200 MG; Start 11/18/18 at 21:00 Folic Acid (Folic Acid) 1 mg DAILY PO Last administered on 11/24/18 08:42; Admin Dose 1 MG; Start 11/19/18 at 09:00 Insulin Detemir (Levemir) 6 units QHS SC Last administered on 11/23/18 21:13; Admin Dose 6 UNITS; Start 11/18/18 at 21:00 Levothyroxine Sodium (Synthroid) 100 mcg BEFORE BREAKFAST PO Last administered on 11/24/18 06:45; Admin Dose 100 MCG; Start 11/19/18 at 07:00 Lorazepam (Ativan) 1 mg Q8 PRN PO ANXIETY Last administered on 11/23/18 09:35; Admin Dose 1 MG; Start 11/18/18 at 12:30 Losartan Potassium (Cozaar) 50 mg BID PO Last administered on 11/24/18 08:42; Admin Dose 50 MG; Start 11/18/18 at 21:00 Metoprolol Tartrate (Lopressor) 25 mg BID PO Last administered on 11/24/18 08:35; Admin Dose 25 MG; Start 11/18/18 at 21:00 Pantoprazole (Protonix Tab) 40 mg DAILY PO Last administered on 11/24/18 08:42; Admin Dose 40 MG; Start 11/19/18 at 09:00 Prednisolone Acetate (Pred-Forte 1%) 1 drop BID RIGHT EYE Last administered on 11/24/18 08:42; Admin Dose 1 DROP; Start 11/18/18 at 21:00 Tramadol HCl (Ultram) 50 mg Q6H PRN PO PAIN Last administered on 11/22/18 17:40; Admin Dose 50 MG; Start 11/18/18 at 12:30 Trazodone HCl (Desyrel) 50 mg QHS PO Last administered on 11/23/18 20:57; Admin Dose 50 MG; Start 11/18/18 at 21:00 Zinc Sulfate (Zinc Sulfate) 220 mg DAILY PO Last administered on 11/24/18 08:35; Admin Dose 220 MG; Start 11/19/18 at 09:00 Morphine Sulfate (morphine) 6 mg Q4H PRN PO SEVERE PAIN LEVEL 7-10 Last admin istered on 11/24/18 14:22; Admin Dose 6 MG; Start 11/19/18 at 23:00 Mupirocin (Bactroban) 1 applic BID TOP Last administered on 11/24/18 08:42; Admin Dose 1 APPLIC; Start 11/20/18 at 13:00 Famotidine (Pepcid) 20 mg DAILY PO Last administered on 11/24/18 08:42; Admin Dose 20 MG; Start 11/24/18 at 09:00 ALYX NAVARRO NP Nov 24, 2018 15:20
--- NOTE | 2018-11-24 16:34 | NUR ---
Nutrition Notes Seems lethargic. Untouched lunch at visit. Please consider providing a feeder with meals. Novasource daily at dinner. Rec to add daily Renavite. Thank you!
--- NOTE | 2018-11-24 18:55 | NUR ---
EOSS: Pt stable, on NC 6L, Sat WNL, pain med given, SB-SR on monitor. All needs attended. Will endorse plan of care to oncoming shift accordingly.
[2018-11-24] MEDS ORDERED: BISACODYL (EC) 5 MG TAB PO PRN (19:00)
[2018-11-24] MEDS: traZODone 50 MG TAB PO SCH (21:00)
[2018-11-24] MEDS: ATORVASTATIN 20 MG TAB PO SCH (21:00)
[2018-11-24] MEDS: DOCUSATE SODIUM 100 MG CAP PO SCH (21:00)
[2018-11-24] MEDS: INSULIN DETEMIR [LEVEMIR] (100 UNITS/ML) SYG SC SCH (21:14)
[2018-11-24] MEDS: AMLODIPINE 5 MG TAB PO SCH (21:19)
[2018-11-25] VITALS (27 sets, daily range): BP systolic 96–122; BP diastolic 43–74; PULSE 53–76; RESP 16–20
[2018-11-25] MEDS: ACCU-CHEK XX SCH (02:00)
[2018-11-25] MEDS: HEPARIN 5,000 UNIT/1 ML VIAL SC SCH ×3 (06:42→21:20)
--- NOTE | 2018-11-25 07:31 | NUR ---
Pt a/a/ox3, VS stable, afebrile. On simple mask 8 lt.Morphine po given x1 for pain. All need attended. Continue care plan.
[2018-11-25] MEDS: LEVOTHYROXINE 100 MCG TAB PO SCH (07:38)
[2018-11-25] MEDS: INSULIN ASPART [NOVOLOG] 3 ML PEN SC SCH ×4 (07:55→21:00)
[2018-11-25] MEDS: PANTOPRAZOLE (EC) 40 MG TAB PO SCH (08:20)
[2018-11-25] MEDS: ZINC SULFATE 220 MG CAP PO SCH (08:20)
[2018-11-25] MEDS: FAMOTIDINE 20 MG TAB PO SCH (08:20)
[2018-11-25] MEDS: CITALOPRAM 20 MG TAB PO SCH (08:21)
[2018-11-25] MEDS: FOLIC ACID 1 MG TAB PO SCH (08:21)
[2018-11-25] MEDS: ASCORBIC ACID 500 MG TAB PO SCH (08:21)
[2018-11-25] MEDS: DOCUSATE SODIUM 100 MG CAP PO SCH ×2 (08:21→20:59)
[2018-11-25] MEDS: MUPIROCIN 2% 22 GM OINT TOP SCH ×2 (08:22→21:03)
[2018-11-25] MEDS: PREDNISOLONE ACET 1% 5 ML OPH RIGHT EYE SCH ×2 (08:22→21:02)
[2018-11-25] MEDS: LOSARTAN 50 MG TAB PO SCH ×2 (08:23→21:00)
[2018-11-25] MEDS: BALSAM PERU/CASTOR OIL 60 GM TUBE TOP SCH (08:24)
[2018-11-25] MEDS: METOPROLOL 25 MG TAB PO SCH ×2 (08:41→21:01)
[2018-11-25] MEDS: AMIODARONE 200 MG TAB PO SCH (08:41)
--- NOTE | 2018-11-25 11:03 | CONS ---
Date/Time of Note Date/Time of Note DATE: 11/25/18 TIME: 11:02 Assessment/Plan Assessment/Plan Hospital Course No acute events, looks comfortable, no fevers overnight Indwelling: right forearm AV fistula Urine cx + MDR Proteus Physical examination: This is obese well-developed elderly woman who is alert in no distress. Head atraumatic normocephalic sclera nonicteric neck is supple chest rise symmetrical breath sounds diminished bases. Heart: S1-S2. Abdomen obese soft bowel sounds present. Extremities without cyanosis right forearm AV fistula patent Assessment: 1. CHF exacerbation 2. End-stage renal disease, on hemodialysis 3. Morbid obesity 4. Diabetes 5. Hypertension 6. MRSA colonization 7. MDR UTI Plan: Patient remained stable, will give short course with Amikacin, continue Bactroban to nares Result Diagram: 11/25/18 0534 11/25/18 0533 Results 24hrs Laboratory Tests Test 11/24/18 12:00 11/24/18 17:36 11/24/18 20:58 11/25/18 05:33 Bedside Glucose 138 150 171 Sodium Level 135 Potassium Level 4.5 Chloride Level 95 L Carbon Dioxide Level 28 Anion Gap 12 Blood Urea Nitrogen 32 H Creatinine 3.92 H Est Glomerular 12 L Filtrat Rate mL/min Glucose Level 142 Calcium Level 8.9 Test 11/25/18 05:34 11/25/18 08:18 White Blood Count 5.3 Red Blood Count 3.13 L Hemoglobin 9.3 L Hematocrit 31.1 L Mean Corpuscular 99.4 Volume Mean Corpuscular 29.7 Hemoglobin Mean Corpuscular 29.9 L Hemoglobin Concent Red Cell 16.1 H Distribution Width Platelet Count 167 Mean Platelet Volume 10.8 H Immature 0.900 H Granulocytes % Neutrophils % 61.8 Lymphocytes % 21.1 Monocytes % 14.4 H Eosinophils % 0.9 Basophils % 0.9 Nucleated Red Blood 0.0 Cells % Immature 0.050 H Granulocytes # Neutrophils # 3.3 Lymphocytes # 1.1 Monocytes # 0.8 Eosinophils # 0.1 Basophils # 0.1 Nucleated Red Blood 0.0 Cells # Bedside Glucose 131 Consultation Date/Type/Reason Admit Date/Time Nov 17, 2018 at 23:34 Initial Consult Date 11/18/18 Type of Consult id Exam/Review of Systems Vital Signs Vitals Vital Signs Date Temp Pulse Resp B/P (MAP) Pulse Ox O2 O2 Flow FiO2 Time Delivery Rate 11/25/18 57 08:42 11/25/18 Simple 10.0 08:20 Mask 11/25/18 97.4 17 116/56 95 07:31 (76) 11/25/18 60 06:34 Intake and Output 11/24/18 11/24/18 11/25/18 1414:59 22:59 06:59 IntakeIntake Total 500 ml BalanceBalance 500 ml Medications Medications Current Medications IV Flush (NS 3 ml) 3 ml PER PROTOCOL IV ; Start 11/18/18 at 00:00 Ondansetron HCl (Zofran Inj) 4 mg Q6H PRN IV NAUSEA AND/OR VOMITING Last administered on 11/24/18at 14:22; Admin Dose 4 MG; Start 11/18/18 at 00:00 Acetaminophen (Tylenol Tab) 650 mg Q6H PRN PO PAIN LEVEL 1-3 OR FEVER Last administered on 11/19/18 11:18; Admin Dose 650 MG; Start 11/18/18 at 00:00 Heparin Sodium (Porcine) (Heparin (5000 Units/1ml)) 5,000 unit Q8 SC Last administered on 11/25/18 06:42; Admin Dose 5,000 UNIT; Start 11/18/18 at 06:00 Diagnostic Test (Pha) (Accu-Chek) 1 ea 02 XX Last administered on 11/21/18 02:45; Admin Dose 1 EA; Start 11/19/18 at 02:00 Insulin Aspart (Novolog Insulin Pen) NOVOLOG *MILD* ALGORITHM WITH MEALS BEDTIME SC Last administered on 11/24/18 17:49; Admin Dose 1 UNIT; Start 11/18/18 at 17:55 Acetaminophen (Tylenol Tab) 325 mg Q4H PRN PO MILD PAIN(1-3)OR ELEVATED TEMP; Start 11/18/18 at 12:30 Albuterol (Proventil 0.083% (Neb)) 2.5 mg Q6 PRN NEB WHEEZING AND SOB Last administered on 11/22/18 04:46; Admin Dose 2.5 MG; Start 11/18/18 at 12:30 Amiodarone HCl (Cordarone) 200 mg DAILY PO Last administered on 11/24/18 08:42; Admin Dose 200 MG; Start 11/19/18 at 09:00 Amlodipine Besylate (Norvasc) 5 mg QHS PO Last administered on 11/24/18 21:19; Admin Dose 5 MG; Start 11/18/18 at 21:00 Apixaban (Eliquis) 2.5 mg BID PO ; Start 11/18/18 at 21:00; Status Hold Ascorbic Acid (Vitamin C) 500 mg DAILY PO Last administered on 11/25/18 08:21; Admin Dose 500 MG; Start 11/19/18 at 09:00 Atorvastatin Calcium (Lipitor) 20 mg QHS PO Last administered on 11/24/18 21:00; Admin Dose 20 MG; Start 11/18/18 at 21:00 Citalopram Hydrobromide (Celexa) 10 mg DAILY PO Last administered on 11/25/18 08:21; Admin Dose 10 MG; Start 11/19/18 at 09:00 Folic Acid (Folic Acid) 1 mg DAILY PO Last administered on 11/25/18 08:21; Admin Dose 1 MG; Start 11/19/18 at 09:00 Insulin Detemir (Levemir) 6 units QHS SC Last administered on 11/24/18 21:14; Admin Dose 6 UNITS; Start 11/18/18 at 21:00 Levothyroxine Sodium (Synthroid) 100 mcg BEFORE BREAKFAST PO Last administered on 11/25/18 07:38; Admin Dose 100 MCG; Start 11/19/18 at 07:00 Lorazepam (Ativan) 1 mg Q8 PRN PO ANXIETY Last administered on 11/23/18 09:35; Admin Dose 1 MG; Start 11/18/18 at 12:30 Losartan Potassium (Cozaar) 50 mg BID PO Last administered on 11/25/18 08:23; Admin Dose 50 MG; Start 11/18/18 at 21:00 Metoprolol Tartrate (Lopressor) 25 mg BID PO Last administered on 11/24/18 21:01; Admin Dose 25 MG; Start 11/18/18 at 21:00 Pantoprazole (Protonix Tab) 40 mg DAILY PO Last administered on 11/25/18 08:20; Admin Dose 40 MG; Start 11/19/18 at 09:00 Prednisolone Acetate (Pred-Forte 1%) 1 drop BID RIGHT EYE Last administered on 11/25/18 08:22; Admin Dose 1 DROP; Start 11/18/18 at 21:00 Tramadol HCl (Ultram) 50 mg Q6H PRN PO PAIN Last administered on 11/22/18 17:40; Admin Dose 50 MG; Start 11/18/18 at 12:30 Trazodone HCl (Desyrel) 50 mg QHS PO Last administered on 11/24/18 21:00; Admin Dose 50 MG; Start 11/18/18 at 21:00 Zinc Sulfate (Zinc Sulfate) 220 mg DAILY PO Last administered on 11/25/18 08:20; Admin Dose 220 MG; Start 11/19/18 at 09:00 Morphine Sulfate (morphine) 6 mg Q4H PRN PO SEVERE PAIN LEVEL 7-10 Last administered on 11/24/18 22:45; Admin Dose 6 MG; Start 11/19/18 at 23:00 Mupirocin (Bactroban) 1 applic BID TOP Last administered on 11/25/18 08:22; Admin Dose 1 APPLIC; Start 11/20/18 at 13:00 Famotidine (Pepcid) 20 mg DAILY PO Last administered on 11/25/18 08:20; Admin Dose 20 MG; Start 11/24/18 at 09:00 Docusate Sodium (Colace) 100 mg BID PO Last administered on 11/25/18 08:21; Admin Dose 100 MG; Start 11/24/18 at 21:00 Bisacodyl (Dulcolax) 5 mg DAILY PRN PO CONSTIPATION; Start 11/24/18 at 19:00 ALYX NAVARRO NP Nov 25, 2018 11:03
[2018-11-25] MEDS ORDERED: AMIKACIN IV PER PHARMACY XX SCH (11:30)
--- NOTE | 2018-11-25 12:18 | NUR ---
Patient with HD today, confirmation #[id number], spoke with [facility] staff.
[2018-11-25] MEDS: morphine LIQ (10 MG/5 ML) CUP PO PRN (13:57)
--- NOTE | 2018-11-25 14:20 | NUR ---
YOLIE NOTES: S/W BETSY OF [facility] ([phone]) AND SHE HAS CONFIRMED PT'S CHAIR TIME OF [facility] @ 11:45 IN THE MORNING. S/W PT AT BEDSIDE AND PT WAS AWARE OF HER CHAIR TIME. FAB AHRRIS [id number] Addendum: 11/25/18 at 1452 by MARC KATHLEEN RN PER RECORD PT CAME FROM [facility]. S/W TIANNA AND WAS INFORMED THAT PT IS OFF BED HOLD. ASKED TIANNA IF SHE IS STILL WILLING TO TAKE PT AND SHE SAID YES, IF THEY HAVE AVAILABLE BEDS AT THE TIME OF D/C.
--- NOTE | 2018-11-25 15:03 | PN ---
Date/Time of Note Date/Time of Note DATE: 11/25/18 TIME: 15:01 Assessment/Plan VTE Prophylaxis Risk score (from Ns)>0 risk: 6 SCD applied (from Ns): Yes Pharmacological prophylaxis: heparin Lines/Catheters [facility] Urinary Cath still in place: No Assessment/Plan Hospital Course Patient continues on telemetry 10 L facemask duration ranges from 95-97% complains of generalized weakness and pain. Patient was started on amikacin for Proteus mirabilis MDR urinary tract infection. Assessment/Plan -Proteus mirabilis MDR urinary tract infection, started on amikacin. -Shortness of breath secondary to pulmonary congestion rising from diastolic dysfunction of the heart. Dr. Louise is following from pulmonology standpoint. -Hemodialysis dependent end-stage renal disease. Continue on hemodialysis. Dr. Mcdaniel is following from nephrology standpoint. -Diabetes mellitus type 2 hemoglobin A1c 6.0, continue Levemir and NovoLog per m ild algorithm sliding scale. -Hypothyroidism, continue levothyroxine -Hypertension, continue patient's antihypertensive medication from group home facility. -Hyperlipidemia, continue statin -MRSA of nares colonization Further recommendations based on clinical course. Plan of care discussed with Dr. Mandel. Result Diagram: 11/25/18 0534 11/25/18 0533 Results 24hrs Laboratory Tests Test 11/24/18 17:36 11/24/18 20:58 11/25/18 05:33 11/25/18 05:34 Bedside Glucose 150 171 Sodium Level 135 Potassium Level 4.5 Chloride Level 95 L Carbon Dioxide Level 28 Anion Gap 12 Blood Urea Nitrogen 32 H Creatinine 3.92 H Est Glomerular 12 L Filtrat Rate mL/min Glucose Level 142 Calcium Level 8.9 White Blood Count 5.3 Red Blood Count 3.13 L Hemoglobin 9.3 L Hematocrit 31.1 L Mean Corpuscular 99.4 Volume Mean Corpuscular 29.7 Hemoglobin Mean Corpuscular 29.9 L Hemoglobin Concent Red Cell 16.1 H Distribution Width Platelet Count 167 Mean Platelet Volume 10.8 H Immature 0.900 H Granulocytes % Neutrophils % 61.8 Lymphocytes % 21.1 Monocytes % 14.4 H Eosinophils % 0.9 Basophils % 0.9 Nucleated Red Blood 0.0 Cells % Immature 0.050 H Granulocytes # Neutrophils # 3.3 Lymphocytes # 1.1 Monocytes # 0.8 Eosinophils # 0.1 Basophils # 0.1 Nucleated Red Blood 0.0 Cells # Test 11/25/18 08:18 11/25/18 12:35 Bedside Glucose 131 132 Exam/Review of Systems Vital Signs Vitals Vital Signs Date Temp Pulse Resp B/P (MAP) Pulse Ox O2 O2 Flow FiO2 Time Delivery Rate 11/25/18 10.0 13:30 11/25/18 59 12:38 11/25/18 97.9 16 115/59 97 11:34 (77) 11/25/18 Simple 08:20 Mask 11/25/18 60 06:34 Intake and Output 11/24/18 11/24/18 11/25/18 1515:00 23:00 07:00 IntakeIntake Total 500 ml BalanceBalance 500 ml Exam Constitutional: alert, oriented Eyes: other (Right eye blindness) Respiratory: diminished breath sounds Cardiovascular: regular rate and rhythm Gastrointestinal: soft, non-tender Musculoskeletal: nl extremities to inspection Extremities: normal pulses, other (Right upper extremity AV fistula) Medications Medications Current Medications IV Flush (NS 3 ml) 3 ml PER PROTOCOL IV ; Start 11/18/18 at 00:00 Ondansetron HCl (Zofran Inj) 4 mg Q6H PRN IV NAUSEA AND/OR VOMITING Last administered on 11/24/18at 14:22; Admin Dose 4 MG; Start 11/18/18 at 00:00 Acetaminophen (Tylenol Tab) 650 mg Q6H PRN PO PAIN LEVEL 1-3 OR FEVER Last administered on 11/19/18at 11:18; Admin Dose 650 MG; Start 11/18/18 at 00:00 Heparin Sodium (Porcine) (Heparin (5000 Units/1ml)) 5,000 unit Q8 SC Last administered on 11/25/18at 14:06; Admin Dose 5,000 UNIT; Start 11/18/18 at 06:00 Diagnostic Test (Pha) (Accu-Chek) 1 ea 02 XX Last administered on 11/21/18at 02:45; Admin Dose 1 EA; Start 11/19/18 at 02:00 Insulin Aspart (Novolog Insulin Pen) NOVOLOG *MILD* ALGORITHM WITH MEALS BEDTIME SC Last administered on 11/24/18at 17:49; Admin Dose 1 UNIT; Start 11/18/18 at 17:55 Acetaminophen (Tylenol Tab) 325 mg Q4H PRN PO MILD PAIN(1-3)OR ELEVATED TEMP; Start 11/18/18 at 12:30 Albuterol (Proventil 0.083% (Neb)) 2.5 mg Q6 PRN NEB WHEEZING AND SOB Last administered on 11/22/18 04:46; Admin Dose 2.5 MG; Start 11/18/18 at 12:30 Amiodarone HCl (Cordarone) 200 mg DAILY PO Last administered on 11/24/18 08:42; Admin Dose 200 MG; Start 11/19/18 at 09:00 Amlodipine Besylate (Norvasc) 5 mg QHS PO Last administered on 11/24/18 21:19; Admin Dose 5 MG; Start 11/18/18 at 21:00 Apixaban (Eliquis) 2.5 mg BID PO ; Start 11/18/18 at 21:00; Status Hold Ascorbic Acid (Vitamin C) 500 mg DAILY PO Last administered on 11/25/18 08:21; Admin Dose 500 MG; Start 11/19/18 at 09:00 Atorvastatin Calcium (Lipitor) 20 mg QHS PO Last administered on 11/24/18 21:00; Admin Dose 20 MG; Start 11/18/18 at 21:00 Citalopram Hydrobromide (Celexa) 10 mg DAILY PO Last administered on 11/25/18 08:21; Admin Dose 10 MG; Start 11/19/18 at 09:00 Folic Acid (Folic Acid) 1 mg DAILY PO Last administered on 11/25/18 08:21; Admin Dose 1 MG; Start 11/19/18 at 09:00 Insulin Detemir (Levemir) 6 units QHS SC Last administered on 11/24/18 21:14; Admin Dose 6 UNITS; Start 11/18/18 at 21:00 Levothyroxine Sodium (Synthroid) 100 mcg BEFORE BREAKFAST PO Last administered on 11/25/18 07:38; Admin Dose 100 MCG; Start 11/19/18 at 07:00 Lorazepam (Ativan) 1 mg Q8 PRN PO ANXIETY Last administered on 11/23/18 09:35; Admin Dose 1 MG; Start 11/18/18 at 12:30 Losartan Potassium (Cozaar) 50 mg BID PO Last administered on 11/25/18 08:23; Admin Dose 50 MG; Start 11/18/18 at 21:00 Metoprolol Tartrate (Lopressor) 25 mg BID PO Last administered on 11/24/18 21:01; Admin Dose 25 MG; Start 11/18/18 at 21:00 Pantoprazole (Protonix Tab) 40 mg DAILY PO Last administered on 11/25/18 08:20; Admin Dose 40 MG; Start 11/19/18 at 09:00 Prednisolone Acetate (Pred-Forte 1%) 1 drop BID RIGHT EYE Last administered on 11/25/18 08:22; Admin Dose 1 DROP; Start 11/18/18 at 21:00 Tramadol HCl (Ultram) 50 mg Q6H PRN PO PAIN Last administered on 11/22/18 17:40; Admin Dose 50 MG; Start 11/18/18 at 12:30 Trazodone HCl (Desyrel) 50 mg QHS PO Last administered on 11/24/18 21:00; Admin Dose 50 MG; Start 11/18/18 at 21:00 Zinc Sulfate (Zinc Sulfate) 220 mg DAILY PO Last administered on 11/25/18 08:20; Admin Dose 220 MG; Start 11/19/18 at 09:00 Morphine Sulfate (morphine) 6 mg Q4H PRN PO SEVERE PAIN LEVEL 7-10 Last administered on 11/25/18 13:57; Admin Dose 6 MG; Start 11/19/18 at 23:00 Mupirocin (Bactroban) 1 applic BID TOP Last administered on 11/25/18 08:22; Admin Dose 1 APPLIC; Start 11/20/18 at 13:00 Famotidine (Pepcid) 20 mg DAILY PO Last administered on 11/25/18 08:20; Admin Dose 20 MG; Start 11/24/18 at 09:00 Docusate Sodium (Colace) 100 mg BID PO Last administered on 11/25/18 08:21; Admin Dose 100 MG; Start 11/24/18 at 21:00 Bisacodyl (Dulcolax) 5 mg DAILY PRN PO CONSTIPATION; Start 11/24/18 at 19:00 Amikacin Sulfate (Amikacin Iv Per Pharmacy) AMIKACIN PER PHARMACY NOTE XX ; Start 11/25/18 at 11:30 Amikacin Sulfate 550 mg/Dextrose 102.2 ml @ 102 mls/hr ONCE@1800 IVPB ; Start 11/25/18 at 18:00; Stop 11/25/18 at 19:01 SIN IZAGUIRRE Nov 25, 2018 15:03
[2018-11-25] MEDS ORDERED: AMIKACIN 550 MG in DEXTROSE 5% 100 ML IVPB SCH (18:00)
--- NOTE | 2018-11-25 18:59 | NUR ---
EOSS: Patient with HD today, 3L out latest BP after HD-100/56. Patient with forgetfulness, Gu/GI incontinent. Dressing changed done as ordered. Patient fair appetite, encouraged to eat. Reposition Q2hrs. All needs attended. Will continue to monitor.
[2018-11-25] MEDS: ATORVASTATIN 20 MG TAB PO SCH (21:00)
[2018-11-25] MEDS: traZODone 50 MG TAB PO SCH (21:01)
[2018-11-25] MEDS: AMLODIPINE 5 MG TAB PO SCH (21:02)
[2018-11-25] MEDS: INSULIN DETEMIR [LEVEMIR] (100 UNITS/ML) SYG SC SCH (21:20)
[2018-11-25] MEDS: traMADol 50 MG TAB PO PRN (21:50)
[2018-11-26] VITALS (11 sets, daily range): BP systolic 117–138; BP diastolic 58–65; PULSE 53–66; RESP 17–20
[2018-11-26] MEDS: ACCU-CHEK XX SCH (02:00)
[2018-11-26] MEDS: LEVOTHYROXINE 100 MCG TAB PO SCH (06:06)
[2018-11-26] MEDS: HEPARIN 5,000 UNIT/1 ML VIAL SC SCH ×3 (06:14→21:18)
--- NOTE | 2018-11-26 06:34 | NUR ---
EOSS: PATIENT PERIODICALLY CONFUSED, REORIENTED PRN. NO ACUTE EVENTS AT NIGHT. GIVEN PAIN MED X1 LAST NIGHT AFFORDED RELIEF. SB ON THE MONITOR.
[2018-11-26] MEDS: INSULIN ASPART [NOVOLOG] 3 ML PEN SC SCH ×4 (07:55→20:40)
[2018-11-26] MEDS: AMIODARONE 200 MG TAB PO SCH (09:00)
[2018-11-26] MEDS: METOPROLOL 25 MG TAB PO SCH ×2 (09:00→20:35)
[2018-11-26] MEDS: PANTOPRAZOLE (EC) 40 MG TAB PO SCH (09:16)
[2018-11-26] MEDS: LOSARTAN 50 MG TAB PO SCH ×2 (09:17→20:34)
[2018-11-26] MEDS: DOCUSATE SODIUM 100 MG CAP PO SCH ×2 (09:17→20:33)
[2018-11-26] MEDS: ZINC SULFATE 220 MG CAP PO SCH (09:17)
[2018-11-26] MEDS: CITALOPRAM 20 MG TAB PO SCH (09:17)
[2018-11-26] MEDS: FOLIC ACID 1 MG TAB PO SCH (09:17)
[2018-11-26] MEDS: ASCORBIC ACID 500 MG TAB PO SCH (09:17)
[2018-11-26] MEDS: FAMOTIDINE 20 MG TAB PO SCH (09:17)
[2018-11-26] MEDS: MUPIROCIN 2% 22 GM OINT TOP SCH ×2 (09:19→20:36)
[2018-11-26] MEDS: PREDNISOLONE ACET 1% 5 ML OPH RIGHT EYE SCH ×2 (09:19→20:37)
[2018-11-26] MEDS: BALSAM PERU/CASTOR OIL 60 GM TUBE TOP SCH (09:19)
--- NOTE | 2018-11-26 12:50 | PN ---
Date/Time of Note Date/Time of Note DATE: 11/26/18 TIME: 12:48 Assessment/Plan VTE Prophylaxis Risk score (from Ns)>0 risk: 6 [place] [facility] [place] Pharmacological prophylaxis: heparin Lines/Catheters IV C[facility]ter Type [facility]from [facility] [place] Urinary Cath still in place: No Assessment/Plan Hospital Course Patient continues on supplemental oxygen via nasal cannula with 3-4 L with occasional desaturation. Continue current care, telemetry monitoring. Patient is currently on amikacin for UTI. Assessment/Plan -Proteus mirabilis MDR urinary tract infection, continue amikacin. -Shortness of breath secondary to pulmonary congestion rising from diastolic d ysfunction of the heart. Dr. Louise is following from pulmonology standpoint. -Hemodialysis dependent end-stage renal disease. Continue on hemodialysis. Dr. Mcdaniel is following from nephrology standpoint. -Diabetes mellitus type 2 hemoglobin A1c 6.0, continue Levemir and NovoLog per mild algorithm sliding scale. -Hypothyroidism, continue levothyroxine -Hypertension, continue patient's antihypertensive medication from custodial facility. -Hyperlipidemia, continue statin -MRSA of nares colonization Further recommendations based on clinical course. Plan of care discussed with Dr. Mandel. Result Diagram: 11/25/18 0534 11/25/18 0533 Results 24hrs Laboratory Tests Test 11/25/18 17:50 11/25/18 20:57 11/26/18 08:02 11/26/18 11:49 Bedside Glucose 139 135 129 162 Exam/Review of Systems Vital Signs Vitals Vital Signs Date Temp Pulse Resp B/P (MAP) Pulse Ox O2 O2 Flow FiO2 Time Delivery Rate 11/26/18 60 12:16 11/26/18 98.6 18 123/61 90 Nasal 11:39 (81) Cannula 11/26/18 3.0 08:00 11/25/18 60 06:34 Intake and Output 11/25/18 11/25/18 11/26/18 1515:00 23:00 07:00 IntakeIntake Total 652.2 ml 150 ml OutputOutput Total 200 ml BalanceBalance -200 ml 652.2 ml 150 ml Exam Constitutional: alert, oriented Eyes: other (Right eye blindness) Respiratory: diminished breath sounds Cardiovascular: regular rate and rhythm Gastrointestinal: soft, non-tender Musculoskeletal: nl extremities to inspection Extremities: normal pulses, other (Right upper extremity AV fistula) Medications Medications Current Medications IV Flush (NS 3 ml) 3 ml PER PROTOCOL IV ; Start 11/18/18 at 00:00 Ondansetron HCl (Zofran Inj) 4 mg Q6H PRN IV NAUSEA AND/OR VOMITING Last administered on 11/24/18 14:22; Admin Dose 4 MG; Start 11/18/18 at 00:00 Acetaminophen (Tylenol Tab) 650 mg Q6H PRN PO PAIN LEVEL 1-3 OR FEVER Last administered on 11/19/18at 11:18; Admin Dose 650 MG; Start 11/18/18 at 00:00 Heparin Sodium (Porcine) (Heparin (5000 Units/1ml)) 5,000 unit Q8 SC Last administered on 11/26/18 06:14; Admin Dose 5,000 UNIT; Start 11/18/18 at 06:00 Diagnostic Test (Pha) (Accu-Chek) 1 ea 02 XX Last administered on 11/21/18at 02:45; Admin Dose 1 EA; Start 11/19/18 at 02:00 Insulin Aspart (Novolog Insulin Pen) NOVOLOG *MILD* ALGORITHM WITH MEALS BEDTIME SC Last administered on 11/26/18at 12:08; Admin Dose 1 UNIT; Start 11/18/18 at 17:55 Acetaminophen (Tylenol Tab) 325 mg Q4H PRN PO MILD PAIN(1-3)OR ELEVATED TEMP; Start 11/18/18 at 12:30 Albuterol (Proventil 0.083% (Neb)) 2.5 mg Q6 PRN NEB WHEEZING AND SOB Last administered on 11/22/18at 04:46; Admin Dose 2.5 MG; Start 11/18/18 at 12:30 Amiodarone HCl (Cordarone) 200 mg DAILY PO Last administered on 11/24/18at 08:42; Admin Dose 200 MG; Start 11/19/18 at 09:00 Amlodipine Besylate (Norvasc) 5 mg QHS PO Last administered on 11/25/18at 21:02; Admin Dose 5 MG; Start 11/18/18 at 21:00 Apixaban (Eliquis) 2.5 mg BID PO ; Start 11/18/18 at 21:00; Status Hold Ascorbic Acid (Vitamin C) 500 mg DAILY PO Last administered on 11/26/18 09:17; Admin Dose 500 MG; Start 11/19/18 at 09:00 Atorvastatin Calcium (Lipitor) 20 mg QHS PO Last administered on 11/25/18 21:00; Admin Dose 20 MG; Start 11/18/18 at 21:00 Citalopram Hydrobromide (Celexa) 10 mg DAILY PO Last administered on 11/26/18 09:17; Admin Dose 10 MG; Start 11/19/18 at 09:00 Folic Acid (Folic Acid) 1 mg DAILY PO Last administered on 11/26/18 09:17; Admin Dose 1 MG; Start 11/19/18 at 09:00 Insulin Detemir (Levemir) 6 units QHS SC Last administered on 11/25/18 21:20; Admin Dose 6 UNITS; Start 11/18/18 at 21:00 Levothyroxine Sodium (Synthroid) 100 mcg BEFORE BREAKFAST PO Last administered on 11/26/18 06:06; Admin Dose 100 MCG; Start 11/19/18 at 07:00 Lorazepam (Ativan) 1 mg Q8 PRN PO ANXIETY Last administered on 11/23/18 09:35; Admin Dose 1 MG; Start 11/18/18 at 12:30 Losartan Potassium (Cozaar) 50 mg BID PO Last administered on 11/26/18 09:17; Admin Dose 50 MG; Start 11/18/18 at 21:00 Metoprolol Tartrate (Lopressor) 25 mg BID PO Last administered on 11/25/18 21:01; Admin Dose 25 MG; Start 11/18/18 at 21:00 Pantoprazole (Protonix Tab) 40 mg DAILY PO Last administered on 11/26/18 09:16; Admin Dose 40 MG; Start 11/19/18 at 09:00 Prednisolone Acetate (Pred-Forte 1%) 1 drop BID RIGHT EYE Last administered on 11/26/18 09:19; Admin Dose 1 DROP; Start 11/18/18 at 21:00 Tramadol HCl (Ultram) 50 mg Q6H PRN PO PAIN Last administered on 11/25/18 21:50; Admin Dose 50 MG; Start 11/18/18 at 12:30 Trazodone HCl (Desyrel) 50 mg QHS PO Last administered on 11/25/18at 21:01; Admi n Dose 50 MG; Start 11/18/18 at 21:00 Zinc Sulfate (Zinc Sulfate) 220 mg DAILY PO Last administered on 11/26/18at 09:17; Admin Dose 220 MG; Start 11/19/18 at 09:00 Morphine Sulfate (morphine) 6 mg Q4H PRN PO SEVERE PAIN LEVEL 7-10 Last administered on 11/25/18at 13:57; Admin Dose 6 MG; Start 11/19/18 at 23:00 Mupirocin (Bactroban) 1 applic BID TOP Last administered on 11/26/18at 09:19; Admin Dose 1 APPLIC; Start 11/20/18 at 13:00 Famotidine (Pepcid) 20 mg DAILY PO Last administered on 11/26/18at 09:17; Admin Dose 20 MG; Start 11/24/18 at 09:00 Docusate Sodium (Colace) 100 mg BID PO Last administered on 11/26/18at 09:17; Admin Dose 100 MG; Start 11/24/18 at 21:00 Bisacodyl (Dulcolax) 5 mg DAILY PRN PO CONSTIPATION; Start 11/24/18 at 19:00 Amikacin Sulfate (Amikacin Iv Per Pharmacy) AMIKACIN PER PHARMACY NOTE XX ; Start 11/25/18 at 11:30 Amikacin Sulfate 320 mg/Dextrose 101.28 ml @ 102 mls/ hr AFTER DIALYSIS IVPB ; Start 11/26/18 at 16:00 SIN IZAGUIRRE Nov 26, 2018 12:50
--- NOTE | 2018-11-26 12:55 | NUR ---
RX NOTE RE: AMIKACIN DAY# 2 OF AMIKACIN PER RX TMAX: 98.6 ALLERGIES: CODEINE START AMIKACIN 320MG IV AFTER EACH DIALYSIS. PHARMACY TO FOLLOW
--- NOTE | 2018-11-26 13:06 | CONS ---
Date/Time of Note Date/Time of Note DATE: 11/26/18 TIME: 13:05 Assessment/Plan Assessment/Plan Hospital Course No acute events, alert, feels good, no fevers Indwelling: right forearm AV fistula Urine cx + MDR Proteus Abx: Amikacin Physical examination: This is obese well-developed elderly woman who is alert in no distress. Head atraumatic normocephalic sclera nonicteric neck is supple chest rise symmetrical breath sounds diminished bases. Heart: S1-S2. Abdomen obese soft bowel sounds present. Extremities without cyanosis right forearm AV fistula patent Assessment: 1. CHF exacerbation 2. End-stage renal disease, on hemodialysis 3. Morbid obesity 4. Diabetes 5. Hypertension 6. MRSA colonization 7. MDR UTI Plan: Patient remained stable, continue Amikacin, continue Bactroban to nares Result Diagram: 11/25/18 0534 11/25/18 0533 Results 24hrs Laboratory Tests Test 11/25/18 17:50 11/25/18 20:57 11/26/18 08:02 11/26/18 11:49 Bedside Glucose 139 135 129 162 Consultation Date/Type/Reason Admit Date/Time Nov 17, 2018 at 23:34 Initial Consult Date 11/18/18 Type of Consult id Exam/Review of Systems Vital Signs Vitals Vital Signs Date Temp Pulse Resp B/P (MAP) Pulse Ox O2 O2 Flow FiO2 Time Delivery Rate 11/26/18 60 12:16 11/26/18 98.6 18 123/61 90 Nasal 11:39 (81) Cannula 11/26/18 3.0 08:00 11/25/18 60 06:34 Intake and Output 11/25/18 11/25/18 11/26/18 1515:00 23:00 07:00 IntakeIntake Total 652.2 ml 150 ml OutputOutput Total 200 ml BalanceBalance -200 ml 652.2 ml 150 ml Medications Medications Current Medications IV Flush (NS 3 ml) 3 ml PER PROTOCOL IV ; Start 11/18/18 at 00:00 Ondansetron HCl (Zofran Inj) 4 mg Q6H PRN IV NAUSEA AND/OR VOMITING Last administered on 11/24/18at 14:22; Admin Dose 4 MG; Start 11/18/18 at 00:00 Acetaminophen (Tylenol Tab) 650 mg Q6H PRN PO PAIN LEVEL 1-3 OR FEVER Last administered on 11/19/18 11:18; Admin Dose 650 MG; Start 11/18/18 at 00:00 Heparin Sodium (Porcine) (Heparin (5000 Units/1ml)) 5,000 unit Q8 SC Last administered on 11/26/18 06:14; Admin Dose 5,000 UNIT; Start 11/18/18 at 06:00 Diagnostic Test (Pha) (Accu-Chek) 1 ea 02 XX Last administered on 11/21/18at 02:45; Admin Dose 1 EA; Start 11/19/18 at 02:00 Insulin Aspart (Novolog Insulin Pen) NOVOLOG *MILD* ALGORITHM WITH MEALS BEDTIME SC Last administered on 11/26/18 12:08; Admin Dose 1 UNIT; Start 11/18/18 at 17:55 Acetaminophen (Tylenol Tab) 325 mg Q4H PRN PO MILD PAIN(1-3)OR ELEVATED TEMP; Start 11/18/18 at 12:30 Albuterol (Proventil 0.083% (Neb)) 2.5 mg Q6 PRN NEB WHEEZING AND SOB Last administered on 11/22/18at 04:46; Admin Dose 2.5 MG; Start 11/18/18 at 12:30 Amiodarone HCl (Cordarone) 200 mg DAILY PO Last administered on 11/24/18at 08:42; Admin Dose 200 MG; Start 11/19/18 at 09:00 Amlodipine Besylate (Norvasc) 5 mg QHS PO Last administered on 11/25/18at 21:02; Admin Dose 5 MG; Start 11/18/18 at 21:00 Apixaban (Eliquis) 2.5 mg BID PO ; Start 11/18/18 at 21:00; Status Hold Ascorbic Acid (Vitamin C) 500 mg DAILY PO Last administered on 11/26/18 09:17; Admin Dose 500 MG; Start 11/19/18 at 09:00 Atorvastatin Calcium (Lipitor) 20 mg QHS PO Last administered on 11/25/18at 21:00; Admin Dose 20 MG; Start 11/18/18 at 21:00 Citalopram Hydrobromide (Celexa) 10 mg DAILY PO Last administered on 11/26/18at 09:17; Admin Dose 10 MG; Start 11/19/18 at 09:00 Folic Acid (Folic Acid) 1 mg DAILY PO Last administered on 11/26/18 09:17; Admin Dose 1 MG; Start 11/19/18 at 09:00 Insulin Detemir (Levemir) 6 units QHS SC Last administered on 11/25/18 21:20; Admin Dose 6 UNITS; Start 11/18/18 at 21:00 Levothyroxine Sodium (Synthroid) 100 mcg BEFORE BREAKFAST PO Last administered on 11/26/18 06:06; Admin Dose 100 MCG; Start 11/19/18 at 07:00 Lorazepam (Ativan) 1 mg Q8 PRN PO ANXIETY Last administered on 11/23/18 09:35; Admin Dose 1 MG; Start 11/18/18 at 12:30 Losartan Potassium (Cozaar) 50 mg BID PO Last administered on 11/26/18 09:17; Admin Dose 50 MG; Start 11/18/18 at 21:00 Metoprolol Tartrate (Lopressor) 25 mg BID PO Last administered on 11/25/18 21:01; Admin Dose 25 MG; Start 11/18/18 at 21:00 Pantoprazole (Protonix Tab) 40 mg DAILY PO Last administered on 11/26/18 09:16; Admin Dose 40 MG; Start 11/19/18 at 09:00 Prednisolone Acetate (Pred-Forte 1%) 1 drop BID RIGHT EYE Last administered on 11/26/18 09:19; Admin Dose 1 DROP; Start 11/18/18 at 21:00 Tramadol HCl (Ultram) 50 mg Q6H PRN PO PAIN Last administered on 11/25/18 21:50; Admin Dose 50 MG; Start 11/18/18 at 12:30 Trazodone HCl (Desyrel) 50 mg QHS PO Last administered on 11/25/18 21:01; Admin Dose 50 MG; Start 11/18/18 at 21:00 Zinc Sulfate (Zinc Sulfate) 220 mg DAILY PO Last administered on 11/26/18 09:17; Admin Dose 220 MG; Start 11/19/18 at 09:00 Morphine Sulfate (morphine) 6 mg Q4H PRN PO SEVERE PAIN LEVEL 7-10 Last administered on 11/25/18at 13:57; Admin Dose 6 MG; Start 11/19/18 at 23:00 Mupirocin (Bactroban) 1 applic BID TOP Last administered on 11/26/18at 09:19; Admin Dose 1 APPLIC; Start 11/20/18 at 13:00 Famotidine (Pepcid) 20 mg DAILY PO Last administered on 11/26/18at 09:17; Admin Dose 20 MG; Start 11/24/18 at 09:00 Docusate Sodium (Colace) 100 mg BID PO Last administered on 11/26/18at 09:17; Admin Dose 100 MG; Start 11/24/18 at 21:00 Bisacodyl (Dulcolax) 5 mg DAILY PRN PO CONSTIPATION; Start 11/24/18 at 19:00 Amikacin Sulfate (Amikacin Iv Per Pharmacy) AMIKACIN PER PHARMACY NOTE XX ; Start 11/25/18 at 11:30 Amikacin Sulfate 320 mg/Dextrose 101.28 ml @ 102 mls/ hr AFTER DIALYSIS IVPB ; Start 11/26/18 at 16:00 ALYX NAVARRO NP Nov 26, 2018 13:06
[2018-11-26] MEDS ORDERED: AMIKACIN IVPB SCH (16:00)
[2018-11-26] MEDS ORDERED: DEXTROSE 5% IVPB SCH (16:00)
--- NOTE | 2018-11-26 19:06 | NUR ---
EOSS: Patient's HR in the 50-60, Anahi made aware. With HD sched MWF, please call pharmacy for Amikacin after HD. Wound care done as ordered, reposition Q2hrs. All needs attended. Will continue to monitor.
[2018-11-26] MEDS: ATORVASTATIN 20 MG TAB PO SCH (20:33)
[2018-11-26] MEDS: traZODone 50 MG TAB PO SCH (20:33)
[2018-11-26] MEDS: AMLODIPINE 5 MG TAB PO SCH (20:34)
[2018-11-26] MEDS: INSULIN DETEMIR [LEVEMIR] (100 UNITS/ML) SYG SC SCH (20:50)
[2018-11-27] VITALS (11 sets, daily range): BP systolic 110–139; BP diastolic 56–63; PULSE 61–68; RESP 16–20
[2018-11-27] MEDS: ACCU-CHEK XX SCH (01:46)
[2018-11-27] MEDS: ALBUTEROL 0.083% (NEB) 2.5 MG/3 ML AMP NEB PRN (05:05)
[2018-11-27] MEDS: LEVOTHYROXINE 100 MCG TAB PO SCH (06:07)
[2018-11-27] MEDS: HEPARIN 5,000 UNIT/1 ML VIAL SC SCH ×3 (06:12→21:24)
--- NOTE | 2018-11-27 06:59 | NUR ---
END OF THE SHIFT:PT. IS AA,O X 3.NO DISTRESS/DISCOMFORT NOTED DURING THE SHIFT.SR IS ON THE MONITOR.CONTINUE TO FOLLOW CURRENT PLAN OF CARE.
[2018-11-27] MEDS: INSULIN ASPART [NOVOLOG] 3 ML PEN SC SCH ×4 (07:55→20:38)
[2018-11-27] MEDS: LOSARTAN 50 MG TAB PO SCH ×2 (09:00→20:32)
[2018-11-27] MEDS: AMIODARONE 200 MG TAB PO SCH (09:00)
[2018-11-27] MEDS: METOPROLOL 25 MG TAB PO SCH ×2 (09:00→20:32)
[2018-11-27] MEDS: PANTOPRAZOLE (EC) 40 MG TAB PO SCH (09:05)
[2018-11-27] MEDS: FOLIC ACID 1 MG TAB PO SCH (09:05)
[2018-11-27] MEDS: CITALOPRAM 20 MG TAB PO SCH (09:05)
[2018-11-27] MEDS: FAMOTIDINE 20 MG TAB PO SCH (09:05)
[2018-11-27] MEDS: ZINC SULFATE 220 MG CAP PO SCH (09:05)
[2018-11-27] MEDS: ASCORBIC ACID 500 MG TAB PO SCH (09:05)
[2018-11-27] MEDS: DOCUSATE SODIUM 100 MG CAP PO SCH ×2 (09:05→20:32)
[2018-11-27] MEDS: PREDNISOLONE ACET 1% 5 ML OPH RIGHT EYE SCH ×2 (09:10→20:39)
[2018-11-27] MEDS: BALSAM PERU/CASTOR OIL 60 GM TUBE TOP SCH (09:10)
[2018-11-27] MEDS: MUPIROCIN 2% 22 GM OINT TOP SCH ×2 (09:10→21:18)
--- NOTE | 2018-11-27 12:36 | CONS ---
Date/Time of Note Date/Time of Note DATE: 11/27/18 TIME: 12:36 Assessment/Plan Assessment/Plan Hospital Course 62 Female ESRD on Hemodialysis Had a long stay at a [facility] facility who just came back to SNF presented with SOB & possible pneumonia. Her Last dialysis was Friday11/16/2017. Assessment/Plan - ESRD Hemodialysis dependent - DM / DM Nephropathy - Pneumonia - Hypertension - CAD / CHF - Chronic Anemia - Respiratory Insufficiency - Hyperphosphatemia PLAN: Recent Discharge from a [facility] facility Will plan For dialysis today Monitor electrolytes IV Antibiotics Follow up with H/H Will recheck CXR today post Dialysis to get a better look at her lungs Will ask [facility] [employer] to arrange for Out patient dialysis. On bedside dialysis Feels Much Better Aiming for ~ 2-3 Kg off on dialysis as tolerates Monitor Lytes Follow up with H/H Plan for HD in AM Monitor H/H Follow up with [facility] Needs PT/OT - Bedside Dialysis - Aim for UF ~ 2-3 Kg - May need HD/UF again Shalonda ( she usually refuse daily ) - Follow up with H/H - Bedside HD / UF - Monitor H/H - Follow up with [facility] Result Diagram: 11/27/18 0805 11/27/18 0542 Results 24hrs Laboratory Tests Test 11/26/18 17:58 11/26/18 20:40 11/27/18 05:42 11/27/18 08:03 Bedside Glucose 145 127 125 Sodium Level 131 L Potassium Level 4.7 Chloride Level 93 L Carbon Dioxide Level 26 Anion Gap 12 Blood Urea Nitrogen 27 H Creatinine 3.24 H Est Glomerular 14 L Filtrat Rate mL/min Glucose Level 118 Calcium Level 8.9 Test 11/27/18 08:05 11/27/18 12:09 White Blood Count 5.8 Red Blood Count 3.09 L Hemoglobin 9.0 L Hematocrit 30.2 L Mean Corpuscular 97.7 Volume Mean Corpuscular 29.1 Hemoglobin Mean Corpuscular 29.8 L Hemoglobin Concent Red Cell 15.6 H Distribution Width Platelet Count 148 Mean Platelet Volume 11.4 H Immature 1.200 H Granulocytes % Neutrophils % 66.3 Lymphocytes % 18.5 Monocytes % 12.4 H Eosinophils % 0.9 Basophils % 0.7 Nucleated Red Blood 0.0 Cells % Immature 0.070 H Granulocytes # Neutrophils # 3.8 Lymphocytes # 1.1 Monocytes # 0.7 Eosinophils # 0.1 Basophils # 0.0 Nucleated Red Blood 0.0 Cells # Bedside Glucose 226 H Consultation Date/Type/Reason Admit Date/Time Nov 17, 2018 at 23:34 Initial Consult Date 11/18/18 Type of Consult NEPHROLOGY Reason for Consultation ESRD on Dialysis 24 HR Interval Summary Constitutional: no complaints, improved Exam/Review of Systems Vital Signs Vitals Vital Signs Date Temp Pulse Resp B/P (MAP) Pulse Ox O2 O2 Flow FiO2 Time Delivery Rate 11/27/18 68 12:23 11/27/18 98.6 18 139/63 95 Nasal 11:24 (88) Cannula 11/27/18 5.0 08:12 11/25/18 60 06:34 Intake and Output 11/26/18 11/26/18 11/27/18 1515:00 23:00 07:00 IntakeIntake Total 450 ml 600 ml BalanceBalance 450 ml 600 ml Exam Constitutional: alert, oriented Neck: jvd Respiratory: crackles/rales Cardiovascular: edema, systolic murmur Gastrointestinal: soft Medications Medications Current Medications IV Flush (NS 3 ml) 3 ml PER PROTOCOL IV ; Start 11/18/18 at 00:00 Ondansetron HCl (Zofran Inj) 4 mg Q6H PRN IV NAUSEA AND/OR VOMITING Last administered on 11/24/18 14:22; Admin Dose 4 MG; Start 11/18/18 at 00:00 Acetaminophen (Tylenol Tab) 650 mg Q6H PRN PO PAIN LEVEL 1-3 OR FEVER Last administered on 11/19/18at 11:18; Admin Dose 650 MG; Start 11/18/18 at 00:00 Heparin Sodium (Porcine) (Heparin (5000 Units/1ml)) 5,000 unit Q8 SC Last administered on 11/27/18at 06:12; Admin Dose 5,000 UNIT; Start 11/18/18 at 06:00 Diagnostic Test (Pha) (Accu-Chek) 1 ea 02 XX Last administered on 11/21/18at 02:45; Admin Dose 1 EA; Start 11/19/18 at 02:00 Insulin Aspart (Novolog Insulin Pen) NOVOLOG *MILD* ALGORITHM WITH MEALS BEDTIME SC Last administered on 11/27/18at 12:12; Admin Dose 3 UNIT; Start 11/18/18 at 17:55 Acetaminophen (Tylenol Tab) 325 mg Q4H PRN PO MILD PAIN(1-3)OR ELEVATED TEMP; Start 11/18/18 at 12:30 Albuterol (Proventil 0.083% (Neb)) 2.5 mg Q6 PRN NEB WHEEZING AND SOB Last administered on 11/27/18at 05:05; Admin Dose 2.5 MG; Start 11/18/18 at 12:30 Amlodipine Besylate (Norvasc) 5 mg QHS PO Last administered on 11/26/18at 20:34; Admin Dose 5 MG; Start 11/18/18 at 21:00 Apixaban (Eliquis) 2.5 mg BID PO ; Start 11/18/18 at 21:00; Status Hold Ascorbic Acid (Vitamin C) 500 mg DAILY PO Last administered on 11/27/18 09:05; Admin Dose 500 MG; Start 11/19/18 at 09:00 Atorvastatin Calcium (Lipitor) 20 mg QHS PO Last administered on 11/26/18 20:33; Admin Dose 20 MG; Start 11/18/18 at 21:00 Citalopram Hydrobromide (Celexa) 10 mg DAILY PO Last administered on 11/27/18 09:05; Admin Dose 10 MG; Start 11/19/18 at 09:00 Folic Acid (Folic Acid) 1 mg DAILY PO Last administered on 11/27/18 09:05; Adm in Dose 1 MG; Start 11/19/18 at 09:00 Insulin Detemir (Levemir) 6 units QHS SC Last administered on 11/26/18 20:50; Admin Dose 6 UNITS; Start 11/18/18 at 21:00 Levothyroxine Sodium (Synthroid) 100 mcg BEFORE BREAKFAST PO Last administered on 11/27/18 06:07; Admin Dose 100 MCG; Start 11/19/18 at 07:00 Lorazepam (Ativan) 1 mg Q8 PRN PO ANXIETY Last administered on 11/23/18 09:35; Admin Dose 1 MG; Start 11/18/18 at 12:30 Losartan Potassium (Cozaar) 50 mg BID PO Last administered on 11/26/18 20:34; Admin Dose 50 MG; Start 11/18/18 at 21:00 Pantoprazole (Protonix Tab) 40 mg DAILY PO Last administered on 11/27/18 09:05; Admin Dose 40 MG; Start 11/19/18 at 09:00 Prednisolone Acetate (Pred-Forte 1%) 1 drop BID RIGHT EYE Last administered on 11/27/18 09:10; Admin Dose 1 DROP; Start 11/18/18 at 21:00 Tramadol HCl (Ultram) 50 mg Q6H PRN PO PAIN Last administered on 11/25/18 21:50; Admin Dose 50 MG; Start 11/18/18 at 12:30 Trazodone HCl (Desyrel) 50 mg QHS PO Last administered on 1/17/19at 20:33; Admin Dose 50 MG; Start 11/18/18 at 21:00 Zinc Sulfate (Zinc Sulfate) 220 mg DAILY PO Last administered on 11/27/18at 09:05; Admin Dose 220 MG; Start 11/19/18 at 09:00 Morphine Sulfate (morphine) 6 mg Q4H PRN PO SEVERE PAIN LEVEL 7-10 Last administered on 11/25/18at 13:57; Admin Dose 6 MG; Start 11/19/18 at 23:00 Mupirocin (Bactroban) 1 applic BID TOP Last administered on 11/27/18 09:10; Admin Dose 1 APPLIC; Start 11/20/18 at 13:00 Famotidine (Pepcid) 20 mg DAILY PO Last administered on 11/27/18at 09:05; Admin Dose 20 MG; Start 11/24/18 at 09:00 Docusate Sodium (Colace) 100 mg BID PO Last administered on 11/27/18at 09:05; Admin Dose 100 MG; Start 11/24/18 at 21:00 Bisacodyl (Dulcolax) 5 mg DAILY PRN PO CONSTIPATION; Start 11/24/18 at 19:00 Amikacin Sulfate (Amikacin Iv Per Pharmacy) AMIKACIN PER PHARMACY NOTE XX ; Start 11/25/18 at 11:30 Amikacin Sulfate 320 mg/Dextrose 101.28 ml @ 102 mls/ hr AFTER DIALYSIS IVPB ; Start 11/26/18 at 16:00 Metoprolol Tartrate (Lopressor) 12.5 mg BID PO Last administered on 11/26/18at 20:35; Admin Dose 12.5 MG; Start 11/26/18 at 21:00 Amiodarone HCl (Cordarone) 100 mg DAILY PO ; Start 11/27/18 at 09:00 ANIBAL ALMANZAR MD Nov 27, 2018 12:36
--- NOTE | 2018-11-27 12:44 | NUR ---
for HD today confirmed with [facility] # [id number].
[2018-11-27] MEDS: morphine LIQ (10 MG/5 ML) CUP PO PRN (13:12)
[2018-11-27] MEDS: ONDANSETRON 4 MG INJ IV PRN (13:12)
--- NOTE | 2018-11-27 13:34 | PN ---
Date/Time of Note Date/Time of Note DATE: 11/27/18 TIME: 13:33 Assessment/Plan VTE Prophylaxis Risk score (from [facility] [place])>0 risk: 6 SCD applied (from [facility] [place]): Yes SCD contraindicated: other Pharmacological prophylaxis: other Pharm contraindication: other Lines/Catheters IV Catheter Type (from [facility] Saline Lock Urinary Cath still in place: No Assessment/Plan Assessment/Plan -Proteus mirabilis MDR urinary tract infection, continue amikacin. -Shortness of breath secondary to pulmonary congestion rising from diastolic dysfunction of the heart. Dr. Louise is following from pulmonology standpoint. -Hemodialysis dependent end-stage renal disease. Continue on hemodialysis. Dr. Mcdaniel is following from nephrology standpoint. -Diabetes mellitus type 2 hemoglobin A1c 6.0, continue Levemir and NovoLog per mild algorithm sliding scale. -Hypothyroidism, continue levothyroxine -Hypertension, continue patient's antihypertensive medication from longterm facility. -Hyperlipidemia, continue statin -MRSA of nares colonization Further recommendations based on clinical course. Plan of care discussed with Dr. Mandel. Result Diagram: 11/27/18 0805 11/27/18 0542 Results 24hrs Laboratory Tests Test 11/26/18 17:58 11/26/18 20:40 11/27/18 05:42 11/27/18 08:03 Bedside Glucose 145 127 125 Sodium Level 131 L Potassium Level 4.7 Chloride Level 93 L Carbon Dioxide Level 26 Anion Gap 12 Blood Urea Nitrogen 27 H Creatinine 3.24 H Est Glomerular 14 L Filtrat Rate mL/min Glucose Level 118 Calcium Level 8.9 Test 11/27/18 08:05 11/27/18 12:09 White Blood Count 5.8 Red Blood Count 3.09 L Hemoglobin 9.0 L Hematocrit 30.2 L Mean Corpuscular 97.7 Volume Mean Corpuscular 29.1 Hemoglobin Mean Corpuscular 29.8 L Hemoglobin Concent Red Cell 15.6 H Distribution Width Platelet Count 148 Mean Platelet Volume 11.4 H Immature 1.200 H Granulocytes % Neutrophils % 66.3 Lymphocytes % 18.5 Monocytes % 12.4 H Eosinophils % 0.9 Basophils % 0.7 Nucleated Red Blood 0.0 Cells % Immature 0.070 H Granulocytes # Neutrophils # 3.8 Lymphocytes # 1.1 Monocytes # 0.7 Eosinophils # 0.1 Basophils # 0.0 Nucleated Red Blood 0.0 Cells # Bedside Glucose 226 H Exam/Review of Systems Vital Signs Vitals Vital Signs Date Temp Pulse Resp B/P (MAP) Pulse Ox O2 O2 Flow FiO2 Time Delivery Rate 11/27/18 4.0 13:28 11/27/18 68 12:23 11/27/18 98.6 18 139/63 95 Nasal 11:24 (88) Cannula 11/25/18 60 06:34 Intake and Output 11/26/18 11/26/18 11/27/18 1515:00 23:00 07:00 IntakeIntake Total 450 ml 600 ml BalanceBalance 450 ml 600 ml Medications Medications Current Medications IV Flush (NS 3 ml) 3 ml PER PROTOCOL IV ; Start 11/18/18 at 00:00 Ondansetron HCl (Zofran Inj) 4 mg Q6H PRN IV NAUSEA AND/OR VOMITING Last administered on 11/27/18at 13:12; Admin Dose 4 MG; Start 11/18/18 at 00:00 Acetaminophen (Tylenol Tab) 650 mg Q6H PRN PO PAIN LEVEL 1-3 OR FEVER Last administered on 11/19/18at 11:18; Admin Dose 650 MG; Start 11/18/18 at 00:00 Heparin Sodium (Porcine) (Heparin (5000 Units/1ml)) 5,000 unit Q8 SC Last administered on 11/27/18 13:18; Admin Dose 5,000 UNIT; Start 11/18/18 at 06:00 Diagnostic Test (Pha) (Accu-Chek) 1 ea 02 XX Last administered on 11/21/18at 02:45; Admin Dose 1 EA; Start 11/19/18 at 02:00 Insulin Aspart (Novolog Insulin Pen) NOVOLOG *MILD* ALGORITHM WITH MEALS BEDTI ME SC Last administered on 11/27/18at 12:12; Admin Dose 3 UNIT; Start 11/18/18 at 17:55 Acetaminophen (Tylenol Tab) 325 mg Q4H PRN PO MILD PAIN(1-3)OR ELEVATED TEMP; Start 11/18/18 at 12:30 Albuterol (Proventil 0.083% (Neb)) 2.5 mg Q6 PRN NEB WHEEZING AND SOB Last administered on 11/27/18at 05:05; Admin Dose 2.5 MG; Start 11/18/18 at 12:30 Amlodipine Besylate (Norvasc) 5 mg QHS PO Last administered on 11/26/18 20:34; Admin Dose 5 MG; Start 11/18/18 at 21:00 Apixaban (Eliquis) 2.5 mg BID PO ; Start 11/18/18 at 21:00; Status Hold Ascorbic Acid (Vitamin C) 500 mg DAILY PO Last administered on 11/27/18 09:05; Admin Dose 500 MG; Start 11/19/18 at 09:00 Atorvastatin Calcium (Lipitor) 20 mg QHS PO Last administered on 11/26/18 20:33; Admin Dose 20 MG; Start 11/18/18 at 21:00 Citalopram Hydrobromide (Celexa) 10 mg DAILY PO Last administered on 11/27/18 09:05; Admin Dose 10 MG; Start 11/19/18 at 09:00 Folic Acid (Folic Acid) 1 mg DAILY PO Last administered on 11/27/18 09:05; Admin Dose 1 MG; Start 11/19/18 at 09:00 Insulin Detemir (Levemir) 6 units QHS SC Last administered on 11/26/18 20:50; Admin Dose 6 UNITS; Start 11/18/18 at 21:00 Levothyroxine Sodium (Synthroid) 100 mcg BEFORE BREAKFAST PO Last administered on 11/27/18 06:07; Admin Dose 100 MCG; Start 11/19/18 at 07:00 Lorazepam (Ativan) 1 mg Q8 PRN PO ANXIETY Last administered on 11/23/18 09:35; Admin Dose 1 MG; Start 11/18/18 at 12:30 Losartan Potassium (Cozaar) 50 mg BID PO Last administered on 11/26/18 20:34; Admin Dose 50 MG; Start 11/18/18 at 21:00 Pantoprazole (Protonix Tab) 40 mg DAILY PO Last administered on 11/27/18 09:05; Admin Dose 40 MG; Start 11/19/18 at 09:00 Prednisolone Acetate (Pred-Forte 1%) 1 drop BID RIGHT EYE Last administered on 11/27/18 09:10; Admin Dose 1 DROP; Start 11/18/18 at 21:00 Tramadol HCl (Ultram) 50 mg Q6H PRN PO PAIN Last administered on 11/25/18 21:50; Admin Dose 50 MG; Start 11/18/18 at 12:30 Trazodone HCl (Desyrel) 50 mg QHS PO Last administered on 11/26/18 20:33; Admin Dose 50 MG; Start 11/18/18 at 21:00 Zinc Sulfate (Zinc Sulfate) 220 mg DAILY PO Last administered on 11/27/18 09:05; Admin Dose 220 MG; Start 11/19/18 at 09:00 Morphine Sulfate (morphine) 6 mg Q4H PRN PO SEVERE PAIN LEVEL 7-10 Last administered on 11/27/18 13:12; Admin Dose 6 MG; Start 11/19/18 at 23:00 Mupirocin (Bactroban) 1 applic BID TOP Last administered on 11/27/18 09:10; Admin Dose 1 APPLIC; Start 11/20/18 at 13:00 Famotidine (Pepcid) 20 mg DAILY PO Last administered on 11/27/18 09:05; Admin Dose 20 MG; Start 11/24/18 at 09:00 Docusate Sodium (Colace) 100 mg BID PO Last administered on 11/27/18 09:05; Admin Dose 100 MG; Start 11/24/18 at 21:00 Bisacodyl (Dulcolax) 5 mg DAILY PRN PO CONSTIPATION; Start 11/24/18 at 19:00 Amikacin Sulfate (Amikacin Iv Per Pharmacy) AMIKACIN PER PHARMACY NOTE XX ; Start 11/25/18 at 11:30 Amikacin Sulfate 320 mg/Dextrose 101.28 ml @ 102 mls/ hr AFTER DIALYSIS IVPB ; Start 11/26/18 at 16:00 Metoprolol Tartrate (Lopressor) 12.5 mg BID PO Last administered on 11/26/18at 20:35; Admin Dose 12.5 MG; Start 11/26/18 at 21:00 Amiodarone HCl (Cordarone) 100 mg DAILY PO ; Start 11/27/18 at 09:00 TROY ANTOINE Nov 27, 2018 13:34
--- NOTE | 2018-11-27 15:09 | CONS ---
Date/Time of Note Date/Time of Note DATE: 11/27/18 TIME: 15:09 Assessment/Plan Assessment/Plan Hospital Course No acute events, alert, feels good, no fevers Indwelling: right forearm AV fistula Urine cx + MDR Proteus Abx: Amikacin Physical examination: This is obese well-developed elderly woman who is alert in no distress. Head atraumatic normocephalic sclera nonicteric neck is supple chest rise symmetrical breath sounds diminished bases. Heart: S1-S2. Abdomen obese soft bowel sounds present. Extremities without cyanosis right forearm AV fistula patent Assessment: 1. CHF exacerbation 2. End-stage renal disease, on hemodialysis 3. Morbid obesity 4. Diabetes 5. Hypertension 6. MRSA colonization 7. MDR UTI Plan: Patient remained stable, continue Amikacin for couple more days, continue Bactroban to nares Result Diagram: 11/27/18 0805 11/27/18 0542 Results 24hrs Laboratory Tests Test 11/26/18 17:58 11/26/18 20:40 11/27/18 05:42 11/27/18 08:03 Bedside Glucose 145 127 125 Sodium Level 131 L Potassium Level 4.7 Chloride Level 93 L Carbon Dioxide Level 26 Anion Gap 12 Blood Urea Nitrogen 27 H Creatinine 3.24 H Est Glomerular 14 L Filtrat Rate mL/min Glucose Level 118 Calcium Level 8.9 Test 11/27/18 08:05 11/27/18 12:09 White Blood Count 5.8 Red Blood Count 3.09 L Hemoglobin 9.0 L Hematocrit 30.2 L Mean Corpuscular 97.7 Volume Mean Corpuscular 29.1 Hemoglobin Mean Corpuscular 29.8 L Hemoglobin Concent Red Cell 15.6 H Distribution Width Platelet Count 148 Mean Platelet Volume 11.4 H Immature 1.200 H Granulocytes % Neutrophils % 66.3 Lymphocytes % 18.5 Monocytes % 12.4 H Eosinophils % 0.9 Basophils % 0.7 Nucleated Red Blood 0.0 Cells % Immature 0.070 H Granulocytes # Neutrophils # 3.8 Lymphocytes # 1.1 Monocytes # 0.7 Eosinophils # 0.1 Basophils # 0.0 Nucleated Red Blood 0.0 Cells # Bedside Glucose 226 H Consultation Date/Type/Reason Admit Date/Time Nov 17, 2018 at 23:34 Initial Consult Date 11/18/18 Type of Consult id Exam/Review of Systems Vital Signs Vitals Vital Signs Date Temp Pulse Resp B/P (MAP) Pulse Ox O2 O2 Flow FiO2 Time Delivery Rate 11/27/18 4.0 13:28 11/27/18 68 12:23 11/27/18 98.6 18 139/63 95 Nasal 11:24 (88) Cannula 11/25/18 60 06:34 Intake and Output 11/26/18 11/26/18 11/27/18 1414:59 22:59 06:59 IntakeIntake Total 450 ml 600 ml BalanceBalance 450 ml 600 ml Medications Medications Current Medications IV Flush (NS 3 ml) 3 ml PER PROTOCOL IV ; Start 11/18/18 at 00:00 Ondansetron HCl (Zofran Inj) 4 mg Q6H PRN IV NAUSEA AND/OR VOMITING Last administered on 11/27/18at 13:12; Admin Dose 4 MG; Start 11/18/18 at 00:00 Acetaminophen (Tylenol Tab) 650 mg Q6H PRN PO PAIN LEVEL 1-3 OR FEVER Last adm inistered on 11/19/18at 11:18; Admin Dose 650 MG; Start 11/18/18 at 00:00 Heparin Sodium (Porcine) (Heparin (5000 Units/1ml)) 5,000 unit Q8 SC Last administered on 11/27/18 13:18; Admin Dose 5,000 UNIT; Start 11/18/18 at 06:00 Diagnostic Test (Pha) (Accu-Chek) 1 ea 02 XX Last administered on 11/21/18at 02:45; Admin Dose 1 EA; Start 11/19/18 at 02:00 Insulin Aspart (Novolog Insulin Pen) NOVOLOG *MILD* ALGORITHM WITH MEALS BEDTIME SC Last administered on 11/27/18at 12:12; Admin Dose 3 UNIT; Start 11/18/18 at 17:55 Acetaminophen (Tylenol Tab) 325 mg Q4H PRN PO MILD PAIN(1-3)OR ELEVATED TEMP; Start 11/18/18 at 12:30 Albuterol (Proventil 0.083% (Neb)) 2.5 mg Q6 PRN NEB WHEEZING AND SOB Last admi nistered on 11/27/18at 05:05; Admin Dose 2.5 MG; Start 11/18/18 at 12:30 Amlodipine Besylate (Norvasc) 5 mg QHS PO Last administered on 11/26/18 20:34; Admin Dose 5 MG; Start 11/18/18 at 21:00 Apixaban (Eliquis) 2.5 mg BID PO ; Start 11/18/18 at 21:00; Status Hold Ascorbic Acid (Vitamin C) 500 mg DAILY PO Last administered on 11/27/18 09:05; Admin Dose 500 MG; Start 11/19/18 at 09:00 Atorvastatin Calcium (Lipitor) 20 mg QHS PO Last administered on 11/26/18 20:33; Admin Dose 20 MG; Start 11/18/18 at 21:00 Citalopram Hydrobromide (Celexa) 10 mg DAILY PO Last administered on 11/27/18 09:05; Admin Dose 10 MG; Start 11/19/18 at 09:00 Folic Acid (Folic Acid) 1 mg DAILY PO Last administered on 11/27/18 09:05; Admin Dose 1 MG; Start 11/19/18 at 09:00 Insulin Detemir (Levemir) 6 units QHS SC Last administered on 11/26/18 20:50; Admin Dose 6 UNITS; Start 11/18/18 at 21:00 Levothyroxine Sodium (Synthroid) 100 mcg BEFORE BREAKFAST PO Last administered on 11/27/18 06:07; Admin Dose 100 MCG; Start 11/19/18 at 07:00 Lorazepam (Ativan) 1 mg Q8 PRN PO ANXIETY Last administered on 11/23/18 09:35; Admin Dose 1 MG; Start 11/18/18 at 12:30 Losartan Potassium (Cozaar) 50 mg BID PO Last administered on 11/26/18 20:34; Admin Dose 50 MG; Start 11/18/18 at 21:00 Pantoprazole (Protonix Tab) 40 mg DAILY PO Last administered on 11/27/18 09:05; Admin Dose 40 MG; Start 11/19/18 at 09:00 Prednisolone Acetate (Pred-Forte 1%) 1 drop BID RIGHT EYE Last administered on 11/27/18 09:10; Admin Dose 1 DROP; Start 11/18/18 at 21:00 Tramadol HCl (Ultram) 50 mg Q6H PRN PO PAIN Last administered on 11/25/18 21:50; Admin Dose 50 MG; Start 11/18/18 at 12:30 Trazodone HCl (Desyrel) 50 mg QHS PO Last administered on 11/26/18at 20:33; Admin Dose 50 MG; Start 11/18/18 at 21:00 Zinc Sulfate (Zinc Sulfate) 220 mg DAILY PO Last administered on 11/27/18at 09:05; Admin Dose 220 MG; Start 11/19/18 at 09:00 Morphine Sulfate (morphine) 6 mg Q4H PRN PO SEVERE PAIN LEVEL 7-10 Last administered on 11/27/18at 13:12; Admin Dose 6 MG; Start 11/19/18 at 23:00 Mupirocin (Bactroban) 1 applic BID TOP Last administered on 11/27/18 09:10; Admin Dose 1 APPLIC; Start 11/20/18 at 13:00 Famotidine (Pepcid) 20 mg DAILY PO Last administered on 11/27/18at 09:05; Admin Dose 20 MG; Start 11/24/18 at 09:00 Docusate Sodium (Colace) 100 mg BID PO Last administered on 11/27/18at 09:05; Admin Dose 100 MG; Start 11/24/18 at 21:00 Bisacodyl (Dulcolax) 5 mg DAILY PRN PO CONSTIPATION; Start 11/24/18 at 19:00 Amikacin Sulfate (Amikacin Iv Per Pharmacy) AMIKACIN PER PHARMACY NOTE XX ; Start 11/25/18 at 11:30 Amikacin Sulfate 320 mg/Dextrose 101.28 ml @ 102 mls/ hr AFTER DIALYSIS IVPB ; Start 11/26/18 at 16:00 Metoprolol Tartrate (Lopressor) 12.5 mg BID PO Last administered on 11/26/18at 20:35; Admin Dose 12.5 MG; Start 11/26/18 at 21:00 Amiodarone HCl (Cordarone) 100 mg DAILY PO ; Start 11/27/18 at 09:00 ALYX NAVARRO NP Nov 27, 2018 15:09
--- NOTE | 2018-11-27 19:01 | NUR ---
EOSS: per HD nurse Abran HD reschedule tomorrow first thing in the morning and okay per Dr Noble, pt alert, no short of breath, continue with current plan of care.
[2018-11-27] MEDS: traZODone 50 MG TAB PO SCH (20:32)
[2018-11-27] MEDS: ATORVASTATIN 20 MG TAB PO SCH (20:33)
[2018-11-27] MEDS: AMLODIPINE 5 MG TAB PO SCH (20:36)
[2018-11-27] MEDS: INSULIN DETEMIR [LEVEMIR] (100 UNITS/ML) SYG SC SCH (20:51)
[2018-11-28] VITALS (28 sets, daily range): BP systolic 93–134; BP diastolic 45–69; PULSE 56–66; RESP 17–20
[2018-11-28] MEDS: ACCU-CHEK XX SCH (02:00)
[2018-11-28] MEDS: morphine LIQ (10 MG/5 ML) CUP PO PRN ×3 (02:03→21:16)
[2018-11-28] MEDS: LEVOTHYROXINE 100 MCG TAB PO SCH (06:04)
[2018-11-28] MEDS: HEPARIN 5,000 UNIT/1 ML VIAL SC SCH ×3 (06:10→22:06)
--- NOTE | 2018-11-28 06:31 | NUR ---
END OF THE SHIFT:PT, IS AA,O X 3 WITH PERIODS OF FORGETFULNESS.VS-WNL.MORPHINE PO GIVEN X 1 FOR CHRONIC BACK PAIN. HD RN IS HERE TO PERFORM PROCEDURE PER MD'S ORDER.CONTINUE TO MONITOR.
[2018-11-28] MEDS: INSULIN ASPART [NOVOLOG] 3 ML PEN SC SCH ×4 (07:55→21:00)
[2018-11-28] MEDS: LOSARTAN 50 MG TAB PO SCH ×2 (09:00→20:57)
[2018-11-28] MEDS: AMIODARONE 200 MG TAB PO SCH (09:00)
[2018-11-28] MEDS: METOPROLOL 25 MG TAB PO SCH ×2 (09:00→20:59)
[2018-11-28] MEDS: FOLIC ACID 1 MG TAB PO SCH (11:20)
[2018-11-28] MEDS: DOCUSATE SODIUM 100 MG CAP PO SCH ×2 (11:20→20:57)
[2018-11-28] MEDS: ZINC SULFATE 220 MG CAP PO SCH (11:20)
[2018-11-28] MEDS: ASCORBIC ACID 500 MG TAB PO SCH (11:20)
[2018-11-28] MEDS: CITALOPRAM 20 MG TAB PO SCH (11:20)
[2018-11-28] MEDS: PANTOPRAZOLE (EC) 40 MG TAB PO SCH (11:20)
[2018-11-28] MEDS: FAMOTIDINE 20 MG TAB PO SCH (11:20)
[2018-11-28] MEDS: PREDNISOLONE ACET 1% 5 ML OPH RIGHT EYE SCH ×2 (11:22→20:58)
[2018-11-28] MEDS: BALSAM PERU/CASTOR OIL 60 GM TUBE TOP SCH (11:22)
[2018-11-28] MEDS: MUPIROCIN 2% 22 GM OINT TOP SCH ×2 (11:22→21:01)
--- NOTE | 2018-11-28 11:50 | NUR ---
Report given by ROSEMARIE Herman to continue care for patient.
--- NOTE | 2018-11-28 11:51 | CONS ---
Date/Time of Note Date/Time of Note DATE: 11/28/18 TIME: 11:50 Assessment/Plan Assessment/Plan Result Diagram: 11/27/18 0805 11/27/18 0542 Results 24hrs Laboratory Tests Test 11/27/18 12:09 11/27/18 17:02 11/27/18 20:38 11/28/18 08:07 Bedside Glucose 226 H 173 169 108 Consultation Date/Type/Reason Admit Date/Time Nov 17, 2018 at 23:34 Initial Consult Date SUBJECTIVE: Pt is awake, alert, afebrile. No acute events over night. VS: stable. T: 98.2 LABS: Reviewed. Indwelling right forearm AV fistula Chest x-ray yesterday revealed pulmonary edema Physical examination: GEN: This is obese well-developed elderly woman who is alert in no distress. HENT: Head atraumatic normocephalic sclera nonicteric ,neck is supple PULM: chest rise symmetrical, breath sounds diminished bases. Heart: S1-S2. Abdomen obese soft bowel sounds present. Extremities without cyanosis right forearm AV fistula patent Assessment: 1. CHF exacerbation 2. End-stage renal disease, on hemodialysis 3. Morbid obesity 4. Diabetes 5. Hypertension 6. MRSA colonization Plan: Patient remained stable. Continue on Amikacin for few more days. Bactroban to nares. Pulmonary recommendations Exam/Review of Systems Vital Signs Vitals Vital Signs Date Temp Pulse Resp B/P (MAP) Pulse Ox O2 O2 Flow FiO2 Time Delivery Rate 11/28/18 98.2 61 18 134/58 98 11:16 (83) 11/28/18 Nasal 4.0 08:45 Cannula 11/25/18 60 06:34 Intake and Output 11/27/18 11/27/18 11/28/18 1515:00 23:00 07:00 IntakeIntake Total 520 ml 450 ml OutputOutput Total 200 ml BalanceBalance 520 ml 250 ml Medications Medications Current Medications IV Flush (NS 3 ml) 3 ml PER PROTOCOL IV ; Start 11/18/18 at 00:00 Ondansetron HCl (Zofran Inj) 4 mg Q6H PRN IV NAUSEA AND/OR VOMITING Last administered on 11/27/18at 13:12; Admin Dose 4 MG; Start 11/18/18 at 00:00 Acetaminophen (Tylenol Tab) 650 mg Q6H PRN PO PAIN LEVEL 1-3 OR FEVER Last administered on 11/19/18 11:18; Admin Dose 650 MG; Start 11/18/18 at 00:00 Heparin Sodium (Porcine) (Heparin (5000 Units/1ml)) 5,000 unit Q8 SC Last administered on 11/28/18 06:10; Admin Dose 5,000 UNIT; Start 11/18/18 at 06:00 Diagnostic Test (Pha) (Accu-Chek) 1 ea 02 XX Last administered on 11/21/18 02:45; Admin Dose 1 EA; Start 11/19/18 at 02:00 Insulin Aspart (Novolog Insulin Pen) NOVOLOG *MILD* ALGORITHM WITH MEALS BEDTIME SC Last administered on 11/27/18 17:05; Admin Dose 1 UNIT; Start 11/18/18 at 17:55 Acetaminophen (Tylenol Tab) 325 mg Q4H PRN PO MILD PAIN(1-3)OR ELEVATED TEMP; Start 11/18/18 at 12:30 Albuterol (Proventil 0.083% (Neb)) 2.5 mg Q6 PRN NEB WHEEZING AND SOB Last administered on 11/27/18 05:05; Admin Dose 2.5 MG; Start 11/18/18 at 12:30 Amlodipine Besylate (Norvasc) 5 mg QHS PO Last administered on 11/27/18 20:36; Admin Dose 5 MG; Start 11/18/18 at 21:00 Apixaban (Eliquis) 2.5 mg BID PO ; Start 11/18/18 at 21:00; Status Hold Ascorbic Acid (Vitamin C) 500 mg DAILY PO Last administered on 11/28/18 11:20; Admin Dose 500 MG; Start 11/19/18 at 09:00 Atorvastatin Calcium (Lipitor) 20 mg QHS PO Last administered on 11/27/18 20:33; Admin Dose 20 MG; Start 11/18/18 at 21:00 Citalopram Hydrobromide (Celexa) 10 mg DAILY PO Last administered on 11/28/18 11:20; Admin Dose 10 MG; Start 11/19/18 at 09:00 Folic Acid (Folic Acid) 1 mg DAILY PO Last administered on 11/28/18 11:20; Admin Dose 1 MG; Start 11/19/18 at 09:00 Insulin Detemir (Levemir) 6 units QHS SC Last administered on 11/27/18 20:51; Admin Dose 6 UNITS; Start 11/18/18 at 21:00 Levothyroxine Sodium (Synthroid) 100 mcg BEFORE BREAKFAST PO Last administered on 11/28/18 06:04; Admin Dose 100 MCG; Start 11/19/18 at 07:00 Lorazepam (Ativan) 1 mg Q8 PRN PO ANXIETY Last administered on 11/23/18 09:35; Admin Dose 1 MG; Start 11/18/18 at 12:30 Losartan Potassium (Cozaar) 50 mg BID PO Last administered on 11/27/18 20:32; Admin Dose 50 MG; Start 11/18/18 at 21:00 Pantoprazole (Protonix Tab) 40 mg DAILY PO Last administered on 11/28/18 11:20; Admin Dose 40 MG; Start 11/19/18 at 09:00 Prednisolone Acetate (Pred-Forte 1%) 1 drop BID RIGHT EYE Last administered on 11/28/18 11:22; Admin Dose 1 DROP; Start 11/18/18 at 21:00 Tramadol HCl (Ultram) 50 mg Q6H PRN PO PAIN Last administered on 11/25/18 21:50; Admin Dose 50 MG; Start 11/18/18 at 12:30 Trazodone HCl (Desyrel) 50 mg QHS PO Last administered on 11/27/18 20:32; Admin Dose 50 MG; Start 11/18/18 at 21:00 Zinc Sulfate (Zinc Sulfate) 220 mg DAILY PO Last administered on 11/28/18 11:20; Admin Dose 220 MG; Start 11/19/18 at 09:00 Morphine Sulfate (morphine) 6 mg Q4H PRN PO SEVERE PAIN LEVEL 7-10 Last administered on 11/28/18 07:20; Admin Dose 6 MG; Start 11/19/18 at 23:00 Mupirocin (Bactroban) 1 applic BID TOP Last administered on 11/28/18 11:22; Admin Dose 1 APPLIC; Start 11/20/18 at 13:00 Famotidine (Pepcid) 20 mg DAILY PO Last administered on 11/28/18 11:20; Admin Dose 20 MG; Start 11/24/18 at 09:00 Docusate Sodium (Colace) 100 mg BID PO Last administered on 11/28/18at 11:20; Admin Dose 100 MG; Start 11/24/18 at 21:00 Bisacodyl (Dulcolax) 5 mg DAILY PRN PO CONSTIPATION; Start 11/24/18 at 19:00 Amikacin Sulfate (Amikacin Iv Per Pharmacy) AMIKACIN PER PHARMACY NOTE XX ; Start 11/25/18 at 11:30; Stop 11/29/18 at 06:00 Amikacin Sulfate 320 mg/Dextrose 101.28 ml @ 102 mls/ hr AFTER DIALYSIS IVPB Last administered on 11/28/18at 11:24; Admin Dose 102 MLS/HR; Start 11/26/18 at 16:00; Stop 11/29/18 at 06:00 Metoprolol Tartrate (Lopressor) 12.5 mg BID PO Last administered on 11/27/18at 20:32; Admin Dose 12.5 MG; Start 11/26/18 at 21:00 Amiodarone HCl (Cordarone) 100 mg DAILY PO ; Start 11/27/18 at 09:00 RICH HOLLAND Nov 28, 2018 11:51
--- NOTE | 2018-11-28 15:04 | PN ---
Date/Time of Note Date/Time of Note DATE: 11/28/18 TIME: 15:04 Assessment/Plan VTE Prophylaxis Risk score (from Nsg)>0 risk: 8 SCD applied (from Nsg): Yes Lines/Catheters IV Catheter Type (from Nrsg): Saline Lock Urinary Cath still in place: No Assessment/Plan Assessment/Plan -Proteus mirabilis MDR urinary tract infection, continue amikacin. -Shortness of breath secondary to pulmonary congestion rising from diastolic dysfunction of the heart. Dr. Louise is following from pulmonology standpoint. -Hemodialysis dependent end-stage renal disease. Continue on hemodialysis. Dr. Mcdaniel is following from nephrology standpoint. -Diabetes mellitus type 2 hemoglobin A1c 6.0, continue Levemir and NovoLog per mild algorithm sliding scale. -Hypothyroidism, continue levothyroxine -Hypertension, continue patient's antihypertensive medication from group home facility. -Hyperlipidemia, continue statin -MRSA of nares colonization Further recommendations based on clinical course. Plan of care discussed with Dr. Mandel. Result Diagram: 11/27/18 0805 11/27/18 0542 Results 24hrs Laboratory Tests Test 11/27/18 17:02 11/27/18 20:38 11/28/18 08:07 11/28/18 12:42 Bedside Glucose 173 169 108 156 Exam/Review of Systems Vital Signs Vitals Vital Signs Date Temp Pulse Resp B/P (MAP) Pulse Ox O2 O2 Flow FiO2 Time Delivery Rate 11/28/18 61 13:23 11/28/18 98.2 18 134/58 98 11:16 (83) 11/28/18 Nasal 4.0 08:45 Cannula 11/25/18 60 06:34 Intake and Output 11/27/18 11/27/18 11/28/18 1515:00 23:00 07:00 IntakeIntake Total 520 ml 450 ml OutputOutput Total 200 ml BalanceBalance 520 ml 250 ml Medications Medications Current Medications IV Flush (NS 3 ml) 3 ml PER PROTOCOL IV ; Start 11/18/18 at 00:00 Ondansetron HCl (Zofran Inj) 4 mg Q6H PRN IV NAUSEA AND/OR VOMITING Last administered on 11/27/18at 13:12; Admin Dose 4 MG; Start 11/18/18 at 00:00 Acetaminophen (Tylenol Tab) 650 mg Q6H PRN PO PAIN LEVEL 1-3 OR FEVER Last administered on 11/19/18 11:18; Admin Dose 650 MG; Start 11/18/18 at 00:00 Heparin Sodium (Porcine) (Heparin (5000 Units/1ml)) 5,000 unit Q8 SC Last administered on 11/28/18 14:54; Admin Dose 5,000 UNIT; Start 11/18/18 at 06:00 Diagnostic Test (Pha) (Accu-Chek) 1 ea 02 XX Last administered on 11/21/18 02:45; Admin Dose 1 EA; Start 11/19/18 at 02:00 Insulin Aspart (Novolog Insulin Pen) NOVOLOG *MILD* ALGORITHM WITH MEALS BEDTIME SC Last administered on 11/28/18 12:54; Admin Dose 1 UNIT; Start 11/18/18 at 17:55 Acetaminophen (Tylenol Tab) 325 mg Q4H PRN PO MILD PAIN(1-3)OR ELEVATED TEMP; Start 11/18/18 at 12:30 Albuterol (Proventil 0.083% (Neb)) 2.5 mg Q6 PRN NEB WHEEZING AND SOB Last administered on 11/27/18 05:05; Admin Dose 2.5 MG; Start 11/18/18 at 12:30 Amlodipine Besylate (Norvasc) 5 mg QHS PO Last administered on 11/27/18 20:36; Admin Dose 5 MG; Start 11/18/18 at 21:00 Apixaban (Eliquis) 2.5 mg BID PO ; Start 11/18/18 at 21:00; Status Hold Ascorbic Acid (Vitamin C) 500 mg DAILY PO Last administered on 11/28/18 11:20; Admin Dose 500 MG; Start 11/19/18 at 09:00 Atorvastatin Calcium (Lipitor) 20 mg QHS PO Last administered on 11/27/18 20:33; Admin Dose 20 MG; Start 11/18/18 at 21:00 Citalopram Hydrobromide (Celexa) 10 mg DAILY PO Last administered on 11/28/18 11:20; Admin Dose 10 MG; Start 11/19/18 at 09:00 Folic Acid (Folic Acid) 1 mg DAILY PO Last administered on 11/28/18 11:20; Admin Dose 1 MG; Start 11/19/18 at 09:00 Insulin Detemir (Levemir) 6 units QHS SC Last administered on 11/27/18 20:51; Admin Dose 6 UNITS; Start 11/18/18 at 21:00 Levothyroxine Sodium (Synthroid) 100 mcg BEFORE BREAKFAST PO Last administered on 11/28/18 06:04; Admin Dose 100 MCG; Start 11/19/18 at 07:00 Lorazepam (Ativan) 1 mg Q8 PRN PO ANXIETY Last administered on 11/23/18 09:35; Admin Dose 1 MG; Start 11/18/18 at 12:30 Losartan Potassium (Cozaar) 50 mg BID PO Last administered on 11/27/18 20:32; Admin Dose 50 MG; Start 11/18/18 at 21:00 Pantoprazole (Protonix Tab) 40 mg DAILY PO Last administered on 11/28/18 11: 20; Admin Dose 40 MG; Start 11/19/18 at 09:00 Prednisolone Acetate (Pred-Forte 1%) 1 drop BID RIGHT EYE Last administered on 11/28/18 11:22; Admin Dose 1 DROP; Start 11/18/18 at 21:00 Tramadol HCl (Ultram) 50 mg Q6H PRN PO PAIN Last administered on 11/25/18 21:50; Admin Dose 50 MG; Start 11/18/18 at 12:30 Trazodone HCl (Desyrel) 50 mg QHS PO Last administered on 11/27/18 20:32; Admin Dose 50 MG; Start 11/18/18 at 21:00 Zinc Sulfate (Zinc Sulfate) 220 mg DAILY PO Last administered on 11/28/18 11:20; Admin Dose 220 MG; Start 11/19/18 at 09:00 Morphine Sulfate (morphine) 6 mg Q4H PRN PO SEVERE PAIN LEVEL 7-10 Last administered on 11/28/18 07:20; Admin Dose 6 MG; Start 11/19/18 at 23:00 Mupirocin (Bactroban) 1 applic BID TOP Last administered on 11/28/18 11:22; Admin Dose 1 APPLIC; Start 11/20/18 at 13:00 Famotidine (Pepcid) 20 mg DAILY PO Last administered on 11/28/18 11:20; Admin Dose 20 MG; Start 11/24/18 at 09:00 Docusate Sodium (Colace) 100 mg BID PO Last administered on 11/28/18at 11:20; Admin Dose 100 MG; Start 11/24/18 at 21:00 Bisacodyl (Dulcolax) 5 mg DAILY PRN PO CONSTIPATION; Start 11/24/18 at 19:00 Amikacin Sulfate (Amikacin Iv Per Pharmacy) AMIKACIN PER PHARMACY NOTE XX ; Start 11/25/18 at 11:30; Stop 11/29/18 at 06:00 Amikacin Sulfate 320 mg/Dextrose 101.28 ml @ 102 mls/ hr AFTER DIALYSIS IVPB Last administered on 11/28/18at 11:24; Admin Dose 102 MLS/HR; Start 11/26/18 at 16:00; Stop 11/29/18 at 06:00 Metoprolol Tartrate (Lopressor) 12.5 mg BID PO Last administered on 11/27/18at 20:32; Admin Dose 12.5 MG; Start 11/26/18 at 21:00 Amiodarone HCl (Cordarone) 100 mg DAILY PO ; Start 11/27/18 at 09:00 TROY ANTOINE Nov 28, 2018 15:04
--- NOTE | 2018-11-28 19:00 | NUR ---
EOSS: Patient had HD today per report and Amikacin given after HD. Encouraged patient to eat with poor appetite at times. Reposition Q2hrs, all needs attended. Will continue to monitor.
[2018-11-28] MEDS: AMLODIPINE 5 MG TAB PO SCH (20:57)
[2018-11-28] MEDS: ATORVASTATIN 20 MG TAB PO SCH (20:58)
[2018-11-28] MEDS: traZODone 50 MG TAB PO SCH (20:58)
[2018-11-28] MEDS: INSULIN DETEMIR [LEVEMIR] (100 UNITS/ML) SYG SC SCH (22:06)
[2018-11-29] VITALS (11 sets, daily range): BP systolic 101–129; BP diastolic 51–86; PULSE 62–73; RESP 17–18
[2018-11-29] MEDS: ACCU-CHEK XX SCH (02:00)
[2018-11-29] MEDS: LEVOTHYROXINE 100 MCG TAB PO SCH (05:42)
[2018-11-29] MEDS: HEPARIN 5,000 UNIT/1 ML VIAL SC SCH ×3 (05:47→21:18)
--- NOTE | 2018-11-29 07:02 | NUR ---
All needs attended and met. No significant change of status. Kept safe and comfortable. Placed call light within reach.
[2018-11-29] MEDS: INSULIN ASPART [NOVOLOG] 3 ML PEN SC SCH ×4 (07:55→20:51)
[2018-11-29] MEDS: FAMOTIDINE 20 MG TAB PO SCH (08:26)
[2018-11-29] MEDS: CITALOPRAM 20 MG TAB PO SCH (08:26)
[2018-11-29] MEDS: PANTOPRAZOLE (EC) 40 MG TAB PO SCH (08:26)
[2018-11-29] MEDS: DOCUSATE SODIUM 100 MG CAP PO SCH ×2 (08:26→20:53)
[2018-11-29] MEDS: ZINC SULFATE 220 MG CAP PO SCH (08:26)
[2018-11-29] MEDS: FOLIC ACID 1 MG TAB PO SCH (08:26)
[2018-11-29] MEDS: ASCORBIC ACID 500 MG TAB PO SCH (08:26)
[2018-11-29] MEDS: LOSARTAN 50 MG TAB PO SCH ×2 (08:27→20:53)
[2018-11-29] MEDS: AMIODARONE 200 MG TAB PO SCH (08:28)
[2018-11-29] MEDS: METOPROLOL 25 MG TAB PO SCH ×2 (08:28→20:52)
[2018-11-29] MEDS: MUPIROCIN 2% 22 GM OINT TOP SCH ×2 (08:29→20:53)
[2018-11-29] MEDS: BALSAM PERU/CASTOR OIL 60 GM TUBE TOP SCH (08:59)
[2018-11-29] MEDS: PREDNISOLONE ACET 1% 5 ML OPH RIGHT EYE SCH ×2 (08:59→20:54)
--- NOTE | 2018-11-29 12:22 | PN ---
Date/Time of Note Date/Time of Note DATE: 11/29/18 TIME: 12:21 Assessment/Plan VTE Prophylaxis Risk score (from Nsg)>0 risk: 8 SCD applied (from Nsg): Yes Lines/Catheters IV Catheter Type (from Nrsg): Saline Lock Urinary Cath still in place: No Assessment/Plan Assessment/Plan -Proteus mirabilis MDR urinary tract infection, continue amikacin. -Shortness of breath secondary to pulmonary congestion rising from diastolic dysfunction of the heart. Dr. Louise is following from pulmonology standpoint. -Hemodialysis dependent end-stage renal disease. Continue on hemodialysis. Dr. Mcdaniel is following from nephrology standpoint. -Diabetes mellitus type 2 hemoglobin A1c 6.0, continue Levemir and NovoLog per mild algorithm sliding scale. -Hypothyroidism, continue levothyroxine -Hypertension, continue patient's antihypertensive medication from long term facility. -Hyperlipidemia, continue statin -MRSA of nares colonization Further recommendations based on clinical course. Plan of care discussed with Dr. Mandel. Result Diagram: 11/27/18 0805 11/27/18 0542 Results 24hrs Laboratory Tests Test 11/28/18 12:42 11/28/18 18:19 11/28/18 20:56 11/29/18 07:53 Bedside Glucose 156 172 172 118 Test 11/29/18 11:55 Bedside Glucose 110 Exam/Review of Systems Vital Signs Vitals Vital Signs Date Temp Pulse Resp B/P (MAP) Pulse Ox O2 O2 Flow FiO2 Time Delivery Rate 11/29/18 98.0 68 18 126/53 98 11:53 (77) 11/29/18 Nasal 2.0 09:30 Cannula Intake and Output 11/28/18 11/28/18 11/29/18 1515:00 23:00 07:00 IntakeIntake Total 650 ml 500 ml OutputOutput Total 2900 ml BalanceBalance -2900 ml 650 ml 500 ml Medications Medications Current Medications IV Flush (NS 3 ml) 3 ml PER PROTOCOL IV ; Start 11/18/18 at 00:00 Ondansetron HCl (Zofran Inj) 4 mg Q6H PRN IV NAUSEA AND/OR VOMITING Last administered on 11/27/18at 13:12; Admin Dose 4 MG; Start 11/18/18 at 00:00 Acetaminophen (Tylenol Tab) 650 mg Q6H PRN PO PAIN LEVEL 1-3 OR FEVER Last administered on 11/19/18 11:18; Admin Dose 650 MG; Start 11/18/18 at 00:00 Heparin Sodium (Porcine) (Heparin (5000 Units/1ml)) 5,000 unit Q8 SC Last administered on 11/29/18 05:47; Admin Dose 5,000 UNIT; Start 11/18/18 at 06:00 Diagnostic Test (Pha) (Accu-Chek) 1 ea 02 XX Last administered on 11/21/18 02:45; Admin Dose 1 EA; Start 11/19/18 at 02:00 Insulin Aspart (Novolog Insulin Pen) NOVOLOG *MILD* ALGORITHM WITH MEALS BEDTIME SC Last administered on 11/28/18 18:39; Admin Dose 1 UNIT; Start 11/18/18 at 17:55 Acetaminophen (Tylenol Tab) 325 mg Q4H PRN PO MILD PAIN(1-3)OR ELEVATED TEMP; Start 11/18/18 at 12:30 Albuterol (Proventil 0.083% (Neb)) 2.5 mg Q6 PRN NEB WHEEZING AND SOB Last administered on 11/27/18 05:05; Admin Dose 2.5 MG; Start 11/18/18 at 12:30 Amlodipine Besylate (Norvasc) 5 mg QHS PO Last administered on 11/28/18 20:57; Admin Dose 5 MG; Start 11/18/18 at 21:00 Apixaban (Eliquis) 2.5 mg BID PO ; Start 11/18/18 at 21:00; Status Hold Ascorbic Acid (Vitamin C) 500 mg DAILY PO Last administered on 11/29/18 08:26; Admin Dose 500 MG; Start 11/19/18 at 09:00 Atorvastatin Calcium (Lipitor) 20 mg QHS PO Last administered on 11/28/18 20:58; Admin Dose 20 MG; Start 11/18/18 at 21:00 Citalopram Hydrobromide (Celexa) 10 mg DAILY PO Last administered on 11/29/18 08:26; Admin Dose 10 MG; Start 11/19/18 at 09:00 Folic Acid (Folic Acid) 1 mg DAILY PO Last administered on 11/29/18 08:26; Admin Dose 1 MG; Start 11/19/18 at 09:00 Insulin Detemir (Levemir) 6 units QHS SC Last administered on 11/28/18 22:06; Admin Dose 6 UNITS; Start 11/18/18 at 21:00 Levothyroxine Sodium (Synthroid) 100 mcg BEFORE BREAKFAST PO Last administered on 11/29/18 05:42; Admin Dose 100 MCG; Start 11/19/18 at 07:00 Lorazepam (Ativan) 1 mg Q8 PRN PO ANXIETY Last administered on 11/23/18 09:35; Admin Dose 1 MG; Start 11/18/18 at 12:30 Losartan Potassium (Cozaar) 50 mg BID PO Last administered on 11/29/18 08:27; Admin Dose 50 MG; Start 11/18/18 at 21:00 Pantoprazole (Protonix Tab) 40 mg DAILY PO Last administered on 11/29/18 08:26; Admin Dose 40 MG; Start 11/19/18 at 09:00 Prednisolone Acetate (Pred-Forte 1%) 1 drop BID RIGHT EYE Last administered on 11/29/18 08:59; Admin Dose 1 DROP; Start 11/18/18 at 21:00 Tramadol HCl (Ultram) 50 mg Q6H PRN PO PAIN Last administered on 11/25/18 21:50; Admin Dose 50 MG; Start 11/18/18 at 12:30 Trazodone HCl (Desyrel) 50 mg QHS PO Last administered on 11/28/18 20:58; A dmin Dose 50 MG; Start 11/18/18 at 21:00 Zinc Sulfate (Zinc Sulfate) 220 mg DAILY PO Last administered on 11/29/18 08:26; Admin Dose 220 MG; Start 11/19/18 at 09:00 Morphine Sulfate (morphine) 6 mg Q4H PRN PO SEVERE PAIN LEVEL 7-10 Last administered on 11/28/18 21:16; Admin Dose 6 MG; Start 11/19/18 at 23:00 Mupirocin (Bactroban) 1 applic BID TOP Last administered on 11/29/18 08:29; Admin Dose 1 APPLIC; Start 11/20/18 at 13:00 Famotidine (Pepcid) 20 mg DAILY PO Last administered on 11/29/18 08:26; Admin Dose 20 MG; Start 11/24/18 at 09:00 Docusate Sodium (Colace) 100 mg BID PO Last administered on 11/29/18 08:26; Admin Dose 100 MG; Start 11/24/18 at 21:00 Bisacodyl (Dulcolax) 5 mg DAILY PRN PO CONSTIPATION; Start 11/24/18 at 19:00 Metoprolol Tartrate (Lopressor) 12.5 mg BID PO Last administered on 11/29/18at 08:28; Admin Dose 12.5 MG; Start 11/26/18 at 21:00 Amiodarone HCl (Cordarone) 100 mg DAILY PO Last administered on 11/29/18at 08:28; Admin Dose 100 MG; Start 11/27/18 at 09:00 TROY ANTOINE Nov 29, 2018 12:22
--- NOTE | 2018-11-29 12:29 | CONS ---
Date/Time of Note Date/Time of Note DATE: 11/29/18 TIME: 12:29 Assessment/Plan Assessment/Plan Hospital Course ID INITIAL NOTE CURRENT ABX: DAY #10 = Amikacin #4 s/p Cefepime / 0805 11/27/18 0542 24H INTERVAL SUMMARY * A/A/O -- responsive -- she feels back to baseline, no fevers, VSS, no new issues * She is O2 via NC dependent at home -- tells me she has 2 O2 tanks at home -- she is eager to DC back home tells me her breathing is back to baseline * Indwelling right forearm AV fistula MICRO * MICRO 11/22/18 Urine Cx (+)GNR URINE CULTURE Final Organism 1 PROTEUS MIRABILIS COLONY COUNT 50,000 - 60,000 CFU/ml Organism 2 MIXED GRAM POSITIVE ORGANISMS COLONY COUNT >100,000 CFU/ml P. MIRAB M.I.C. RX --------- --- AMIKACIN 4 S AMPICILLIN >=32 R CEFOTAXIME S CIPROFLOXACIN >=4 R GENTAMICIN >=16 R LEVOFLOXACIN >=8 R NITROFURANTOIN 128 R TOBRAMYCIN >=16 R TRIMETHOPRIM/SULFAMETHOXAZOLE >=320 R * 11/17/18 (+)MRSA Nares * 11/16/18BCx (-) PHYSICAL EXAMINATION: GENERAL: Afebrile, VSS, obese, NAD HEENT: AT, NC, anicteric, moist oral membranes NECK: Supple, trach midline CHEST: Equal chest rise bilaterally, without dyspnea on observation -- supplemental O2 via NC HEART: Pulse RRR ABDOMEN: Soft EXTREMITIES: Warm, dry SKIN: No rash, no diaphoresis ID ASSESSMENT 62 yo F admit with: 1. CHF exacerbation 2. End-stage renal disease, on hemodialysis 3. Chronic hypoxia w/O2 via NC dependency @ home -- has 2 O2 tanks at home 4. Diabetes 5. Hypertension (+)MRSA Nares -> Bactroban ABX ALLERGIES: None to ABX INVASIVES: PIV CURRENT ABX: DAY #10 = Amikacin #4 s/p Cefepime ID RECOMMENDATIONS/PLAN: Case d/w Dr. Guevara who recommends DC Amikacin today DC Planning -> May DC OFF ABX when cleared by primary * -- NOTE: Home O2 dependent has 2 tanks O2 @ home Result Diagram: 11/27/18 0805 11/27/18 0542 Results 24hrs Laboratory Tests Test 11/28/18 12:42 11/28/18 18:19 11/28/18 20:56 11/29/18 07:53 Bedside Glucose 156 172 172 118 Test 11/29/18 11:55 Bedside Glucose 110 Consultation Date/Type/Reason Admit Date/Time Nov 17, 2018 at 23:34 Initial Consult Date 11/18/18 Exam/Review of Systems Vital Signs Vitals Vital Signs Date Temp Pulse Resp B/P (MAP) Pulse Ox O2 O2 Flow FiO2 Time Delivery Rate 11/29/18 66 12:23 11/29/18 98.0 18 126/53 98 11:53 (77) 11/29/18 Nasal 2.0 09:30 Cannula Intake and Output 11/28/18 11/28/18 11/29/18 1515:00 23:00 07:00 IntakeIntake Total 650 ml 500 ml OutputOutput Total 2900 ml BalanceBalance -2900 ml 650 ml 500 ml Medications Medications Current Medications IV Flush (NS 3 ml) 3 ml PER PROTOCOL IV ; Start 11/18/18 at 00:00 Ondansetron HCl (Zofran Inj) 4 mg Q6H PRN IV NAUSEA AND/OR VOMITING Last administered on 11/27/18at 13:12; Admin Dose 4 MG; Start 11/18/18 at 00:00 Acetaminophen (Tylenol Tab) 650 mg Q6H PRN PO PAIN LEVEL 1-3 OR FEVER Last administered on 11/19/18at 11:18; Admin Dose 650 MG; Start 11/18/18 at 00:00 Heparin Sodium (Porcine) (Heparin (5000 Units/1ml)) 5,000 unit Q8 SC Last administered on 11/29/18at 05:47; Admin Dose 5,000 UNIT; Start 11/18/18 at 06:00 Diagnostic Test (Pha) (Accu-Chek) 1 ea 02 XX Last administered on 11/21/18at 02:45; Admin Dose 1 EA; Start 11/19/18 at 02:00 Insulin Aspart (Novolog Insulin Pen) NOVOLOG *MILD* ALGORITHM WITH MEALS BEDTIME SC Last administered on 11/28/18 18:39; Admin Dose 1 UNIT; Start 11/18/18 at 17:55 Acetaminophen (Tylenol Tab) 325 mg Q4H PRN PO MILD PAIN(1-3)OR ELEVATED TEMP; Start 11/18/18 at 12:30 Albuterol (Proventil 0.083% (Neb)) 2.5 mg Q6 PRN NEB WHEEZING AND SOB Last administered on 11/27/18 05:05; Admin Dose 2.5 MG; Start 11/18/18 at 12:30 Amlodipine Besylate (Norvasc) 5 mg QHS PO Last administered on 11/28/18 20:57; Admin Dose 5 MG; Start 11/18/18 at 21:00 Apixaban (Eliquis) 2.5 mg BID PO ; Start 11/18/18 at 21:00; Status Hold Ascorbic Acid (Vitamin C) 500 mg DAILY PO Last administered on 11/29/18 08:26; Admin Dose 500 MG; Start 11/19/18 at 09:00 Atorvastatin Calcium (Lipitor) 20 mg QHS PO Last administered on 11/28/18 20:58; Admin Dose 20 MG; Start 11/18/18 at 21:00 Citalopram Hydrobromide (Celexa) 10 mg DAILY PO Last administered on 11/29/18 08:26; Admin Dose 10 MG; Start 11/19/18 at 09:00 Folic Acid (Folic Acid) 1 mg DAILY PO Last administered on 11/29/18 08:26; Admin Dose 1 MG; Start 11/19/18 at 09:00 Insulin Detemir (Levemir) 6 units QHS SC Last administered on 11/28/18 22:06; Admin Dose 6 UNITS; Start 11/18/18 at 21:00 Levothyroxine Sodium (Synthroid) 100 mcg BEFORE BREAKFAST PO Last administered on 11/29/18 05:42; Admin Dose 100 MCG; Start 11/19/18 at 07:00 Lorazepam (Ativan) 1 mg Q8 PRN PO ANXIETY Last administered on 11/23/18 09:35; Admin Dose 1 MG; Start 11/18/18 at 12:30 Losartan Potassium (Cozaar) 50 mg BID PO Last administered on 11/29/18 08:27; Admin Dose 50 MG; Start 11/18/18 at 21:00 Pantoprazole (Protonix Tab) 40 mg DAILY PO Last administered on 11/29/18 08 :26; Admin Dose 40 MG; Start 11/19/18 at 09:00 Prednisolone Acetate (Pred-Forte 1%) 1 drop BID RIGHT EYE Last administered on 11/29/18 08:59; Admin Dose 1 DROP; Start 11/18/18 at 21:00 Tramadol HCl (Ultram) 50 mg Q6H PRN PO PAIN Last administered on 11/25/18 21:50; Admin Dose 50 MG; Start 11/18/18 at 12:30 Trazodone HCl (Desyrel) 50 mg QHS PO Last administered on 11/28/18 20:58; Admin Dose 50 MG; Start 11/18/18 at 21:00 Zinc Sulfate (Zinc Sulfate) 220 mg DAILY PO Last administered on 11/29/18 08:26; Admin Dose 220 MG; Start 11/19/18 at 09:00 Morphine Sulfate (morphine) 6 mg Q4H PRN PO SEVERE PAIN LEVEL 7-10 Last administered on 11/28/18 21:16; Admin Dose 6 MG; Start 11/19/18 at 23:00 Mupirocin (Bactroban) 1 applic BID TOP Last administered on 11/29/18 08:29; Admin Dose 1 APPLIC; Start 11/20/18 at 13:00 Famotidine (Pepcid) 20 mg DAILY PO Last administered on 11/29/18 08:26; Admin Dose 20 MG; Start 11/24/18 at 09:00 Docusate Sodium (Colace) 100 mg BID PO Last administered on 11/29/18 08:26; Admin Dose 100 MG; Start 11/24/18 at 21:00 Bisacodyl (Dulcolax) 5 mg DAILY PRN PO CONSTIPATION; Start 11/24/18 at 19:00 Metoprolol Tartrate (Lopressor) 12.5 mg BID PO Last administered on 11/29/18 08:28; Admin Dose 12.5 MG; Start 11/26/18 at 21:00 Amiodarone HCl (Cordarone) 100 mg DAILY PO Last administered on 11/29/18at 08:28; Admin Dose 100 MG; Start 11/27/18 at 09:00 LINDA SCHAEFER NP Nov 29, 2018 12:29
--- NOTE | 2018-11-29 18:24 | NUR ---
EOSS Pt ao x 4 and stable at this time. Pt in no distress noted throughout the shift. Pt was repositioned q2h and woundcare treatment was done. Pt was updated regarding plan of care. Hourly rounding done. Call light within reach. Will endorse to next shift accordingly.
[2018-11-29] MEDS: AMLODIPINE 5 MG TAB PO SCH (20:53)
[2018-11-29] MEDS: ATORVASTATIN 20 MG TAB PO SCH (20:53)
[2018-11-29] MEDS: traZODone 50 MG TAB PO SCH (20:53)
[2018-11-29] MEDS: INSULIN DETEMIR [LEVEMIR] (100 UNITS/ML) SYG SC SCH (21:18)
[2018-11-30] VITALS (12 sets, daily range): BP systolic 107–127; BP diastolic 50–68; PULSE 63–66; RESP 17–19
[2018-11-30] MEDS: ACCU-CHEK XX SCH (02:00)
[2018-11-30] MEDS: LORAZEPAM 1 MG TAB PO PRN (03:45)
[2018-11-30] MEDS: LEVOTHYROXINE 100 MCG TAB PO SCH (05:13)
[2018-11-30] MEDS: HEPARIN 5,000 UNIT/1 ML VIAL SC SCH ×3 (06:08→21:54)
--- NOTE | 2018-11-30 06:20 | NUR ---
All needs attended and met. No significant change of status. Ativan PO was given one time. Placed call light within reach. Kept safe and comfortable.
[2018-11-30] MEDS: INSULIN ASPART [NOVOLOG] 3 ML PEN SC SCH ×4 (07:55→21:00)
[2018-11-30] MEDS: ASCORBIC ACID 500 MG TAB PO SCH (08:23)
[2018-11-30] MEDS: FAMOTIDINE 20 MG TAB PO SCH (08:23)
[2018-11-30] MEDS: DOCUSATE SODIUM 100 MG CAP PO SCH ×2 (08:23→21:33)
[2018-11-30] MEDS: PANTOPRAZOLE (EC) 40 MG TAB PO SCH (08:23)
[2018-11-30] MEDS: ZINC SULFATE 220 MG CAP PO SCH (08:23)
[2018-11-30] MEDS: CITALOPRAM 20 MG TAB PO SCH (08:24)
[2018-11-30] MEDS: LOSARTAN 50 MG TAB PO SCH ×2 (08:24→21:34)
[2018-11-30] MEDS: FOLIC ACID 1 MG TAB PO SCH (08:24)
[2018-11-30] MEDS: AMIODARONE 200 MG TAB PO SCH (08:24)
[2018-11-30] MEDS: METOPROLOL 25 MG TAB PO SCH ×2 (08:25→21:00)
[2018-11-30] MEDS: PREDNISOLONE ACET 1% 5 ML OPH RIGHT EYE SCH ×2 (08:25→21:34)
[2018-11-30] MEDS: BALSAM PERU/CASTOR OIL 60 GM TUBE TOP SCH (08:25)
[2018-11-30] MEDS: MUPIROCIN 2% 22 GM OINT TOP SCH ×2 (08:25→21:36)
--- NOTE | 2018-11-30 11:58 | CONS ---
Date/Time of Note Date/Time of Note DATE: 11/30/18 TIME: 11:56 Assessment/Plan Assessment/Plan Hospital Course ID INITIAL NOTE CURRENT ABX: DAY #11 = Amikacin #5 s/p Cefepime 24H INTERVAL SUMMARY * Clinically back to baseline -- she is eager to DC back home --A/A/O, no fevers, VSS, no new issues * She is O2 via NC dependent at home -- tells me she has 2 O2 tanks at home - * Indwelling right forearm AV fistula MICRO * MICRO 11/22/18 Urine Cx (+)GNR URINE CULTURE Final Organism 1 PROTEUS MIRABILIS COLONY COUNT 50,000 - 60,000 CFU/ml Organism 2 MIXED GRAM POSITIVE ORGANISMS COLONY COUNT >100,000 CFU/ml P. MIRAB M.I.C. RX --------- --- AMIKACIN 4 S AMPICILLIN >=32 R CEFOTAXIME S CIPROFLOXACIN >=4 R GENTAMICIN >=16 R LEVOFLOXACIN >=8 R NITROFURANTOIN 128 R TOBRAMYCIN >=16 R TRIMETHOPRIM/SULFAMETHOXAZOLE >=320 R * 11/17/18 (+)MRSA Nares * 11/16/18BCx (-) PHYSICAL EXAMINATION: GENERAL: Afebrile, VSS, obese, NAD HEENT: AT, NC, anicteric, moist oral membranes NECK: Supple, trach midline CHEST: Equal chest rise bilaterally, without dyspnea on observation -- suppleme ntal O2 via NC HEART: Pulse RRR ABDOMEN: Soft EXTREMITIES: Warm, dry SKIN: No rash, no diaphoresis ID ASSESSMENT 62 yo F admit with: 1. CHF exacerbation 2. End-stage renal disease, on hemodialysis 3. Chronic hypoxia w/O2 via NC dependency @ home -- has 2 O2 tanks at home 4. Diabetes 5. Hypertension (+)MRSA Nares -> Bactroban ABX ALLERGIES: None to ABX INVASIVES: PIV CURRENT ABX: DAY #10 = Amikacin #4 s/p Cefepime ID RECOMMENDATIONS/PLAN: Case d/w Dr. Guevara who recommends DC Amikacin today per primary DC Planning -> May DC OFF ABX when cleared by primary * NOTE: Home O2 dependent has 2 tanks O2 @ home w/patient reported feels back to baseline respiratory * Pulm fluid overload management per HD Result Diagram: 11/27/18 0805 11/27/18 0542 Results 24hrs Laboratory Tests Test 11/29/18 17:20 11/29/18 20:50 11/30/18 08:22 Bedside Glucose 141 151 113 Consultation Date/Type/Reason Admit Date/Time Nov 17, 2018 at 23:34 Initial Consult Date 11/18/18 Exam/Review of Systems Vital Signs Vitals Vital Signs Date Temp Pulse Resp B/P (MAP) Pulse Ox O2 O2 Flow FiO2 Time Delivery Rate 11/30/18 97.7 65 18 118/58 97 11:13 (78) 11/30/18 2.0 10:41 11/30/18 Nasal 08:01 Cannula Intake and Output 11/29/18 11/29/18 11/30/18 1515:00 23:00 07:00 IntakeIntake Total 700 ml 400 ml BalanceBalance 700 ml 400 ml Medications Medications Current Medications IV Flush (NS 3 ml) 3 ml PER PROTOCOL IV ; Start 11/18/18 at 00:00 Ondansetron HCl (Zofran Inj) 4 mg Q6H PRN IV NAUSEA AND/OR VOMITING Last administered on 11/27/18at 13:12; Admin Dose 4 MG; Start 11/18/18 at 00:00 Acetaminophen (Tylenol Tab) 650 mg Q6H PRN PO PAIN LEVEL 1-3 OR FEVER Last administered on 11/19/18at 11:18; Admin Dose 650 MG; Start 11/18/18 at 00:00 Heparin Sodium (Porcine) (Heparin (5000 Units/1ml)) 5,000 unit Q8 SC Last administered on 11/30/18at 06:08; Admin Dose 5,000 UNIT; Start 11/18/18 at 06:00 Diagnostic Test (Pha) (Accu-Chek) 1 ea 02 XX Last administered on 11/21/18at 02:45; Admin Dose 1 EA; Start 11/19/18 at 02:00 Insulin Aspart (Novolog Insulin Pen) NOVOLOG *MILD* ALGORITHM WITH MEALS BEDTIME SC Last administered on 11/29/18at 17:28; Admin Dose 1 UNIT; Start 11/18/18 at 17:55 Acetaminophen (Tylenol Tab) 325 mg Q4H PRN PO MILD PAIN(1-3)OR ELEVATED TEMP; Start 11/18/18 at 12:30 Albuterol (Proventil 0.083% (Neb)) 2.5 mg Q6 PRN NEB WHEEZING AND SOB Last administered on 11/27/18 05:05; Admin Dose 2.5 MG; Start 11/18/18 at 12:30 Amlodipine Besylate (Norvasc) 5 mg QHS PO Last administered on 11/29/18 20:53; Admin Dose 5 MG; Start 11/18/18 at 21:00 Apixaban (Eliquis) 2.5 mg BID PO ; Start 11/18/18 at 21:00; Status Hold Ascorbic Acid (Vitamin C) 500 mg DAILY PO Last administered on 11/30/18 08:23; Admin Dose 500 MG; Start 11/19/18 at 09:00 Atorvastatin Calcium (Lipitor) 20 mg QHS PO Last administered on 11/29/18 20:53; Admin Dose 20 MG; Start 11/18/18 at 21:00 Citalopram Hydrobromide (Celexa) 10 mg DAILY PO Last administered on 11/30/18 08:24; Admin Dose 10 MG; Start 11/19/18 at 09:00 Folic Acid (Folic Acid) 1 mg DAILY PO Last administered on 11/30/18 08:24; Admin Dose 1 MG; Start 11/19/18 at 09:00 Insulin Detemir (Levemir) 6 units QHS SC Last administered on 11/29/18 21:18; Admin Dose 6 UNITS; Start 11/18/18 at 21:00 Levothyroxine Sodium (Synthroid) 100 mcg BEFORE BREAKFAST PO Last administered on 11/30/18 05:13; Admin Dose 100 MCG; Start 11/19/18 at 07:00 Lorazepam (Ativan) 1 mg Q8 PRN PO ANXIETY Last administered on 11/30/18 03:45; Admin Dose 1 MG; Start 11/18/18 at 12:30 Losartan Potassium (Cozaar) 50 mg BID PO Last administered on 11/30/18 08:24; Admin Dose 50 MG; Start 11/18/18 at 21:00 Pantoprazole (Protonix Tab) 40 mg DAILY PO Last administered on 11/30/18 08:23; Admin Dose 40 MG; Start 11/19/18 at 09:00 Prednisolone Acetate (Pred-Forte 1%) 1 drop BID RIGHT EYE Last administered on 11/30/18 08:25; Admin Dose 1 DROP; Start 11/18/18 at 21:00 Tramadol HCl (Ultram) 50 mg Q6H PRN PO PAIN Last administered on 11/25/18 2 1:50; Admin Dose 50 MG; Start 11/18/18 at 12:30 Trazodone HCl (Desyrel) 50 mg QHS PO Last administered on 11/29/18 20:53; Admin Dose 50 MG; Start 11/18/18 at 21:00 Zinc Sulfate (Zinc Sulfate) 220 mg DAILY PO Last administered on 11/30/18 08:23; Admin Dose 220 MG; Start 11/19/18 at 09:00 Morphine Sulfate (morphine) 6 mg Q4H PRN PO SEVERE PAIN LEVEL 7-10 Last administered on 11/28/18 21:16; Admin Dose 6 MG; Start 11/19/18 at 23:00 Mupirocin (Bactroban) 1 applic BID TOP Last administered on 11/30/18 08:25; Admin Dose 1 APPLIC; Start 11/20/18 at 13:00 Famotidine (Pepcid) 20 mg DAILY PO Last administered on 11/30/18 08:23; Admin Dose 20 MG; Start 11/24/18 at 09:00 Docusate Sodium (Colace) 100 mg BID PO Last administered on 11/30/18 08:23; Admin Dose 100 MG; Start 11/24/18 at 21:00 Bisacodyl (Dulcolax) 5 mg DAILY PRN PO CONSTIPATION; Start 11/24/18 at 19:00 Metoprolol Tartrate (Lopressor) 12.5 mg BID PO Last administered on 11/30/18 08:25; Admin Dose 12.5 MG; Start 11/26/18 at 21:00 Amiodarone HCl (Cordarone) 100 mg DAILY PO Last administered on 11/30/18 08:24; Admin Dose 100 MG; Start 11/27/18 at 09:00 LINDA SCHAEFER NP Nov 30, 2018 11:58
--- NOTE | 2018-11-30 14:28 | NUR ---
SS NOTE PT IS A 62 YO FEMALE WHO IS A&O, CALM AND COOPERATIVE. PT REPORTED SHE IS FEELING PT IS A RESIDENT AT [facility]. PT HAS 2 CHILDREN (SON AND DAUGHTER). PT HAS HISTORY OF ESRD ON HD 3X A WEEK (M,W,F) AND QUADRIPLEGIC IS BEDBOUND. 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 PLAN IS FOR PT TO RETURN TO [facility] WHEN STABLE. Addendum: 11/30/18 at 1441 by MASSIEL KAUR Amended: Links added.
--- NOTE | 2018-11-30 14:48 | PN ---
Date/Time of Note Date/Time of Note DATE: 11/30/18 TIME: 14:42 Assessment/Plan VTE Prophylaxis Risk score (from [facility] [place])>0 risk: 8 SCD applied (from [facility] [place]): Yes Pharmacological prophylaxis: NA/contraindicated, other Pharm contraindication: other Lines/Catheters IV Catheter Type (from [facility]): [place] Lock Urinary Cath still in place: No Assessment/Plan Hospital Course Patient is currently on 5 L oxygen if patient's tolerates weaning to a couple of liters of oxygen without distress will discharge patient to long term facility Assessment/Plan -Proteus mirabilis MDR urinary tract infection, continue amikacin. -Shortness of breath secondary to pulmonary congestion rising from diastolic dysfunction of the heart. Dr. Louise is following from pulmonology standpoint. -Hemodialysis dependent end-stage renal disease. Continue on hemodialysis. Dr. Mcdaniel is following from nephrology standpoint. -Diabetes mellitus type 2 hemoglobin A1c 6.0, continue Levemir and NovoLog per mild algorithm sliding scale. -Hypothyroidism, continue levothyroxine -Hypertension, continue patient's antihypertensive medication from long term facility. -Hyperlipidemia, continue statin -MRSA of nares colonization Further recommendations based on clinical course. Plan of care discussed with Dr. Mandel. Result Diagram: 11/27/18 0805 11/27/18 0542 Results 24hrs Laboratory Tests Test 11/29/18 17:20 11/29/18 20:50 11/30/18 08:22 11/30/18 11:58 Bedside Glucose 141 151 113 144 Exam/Review of Systems Vital Signs Vitals Vital Signs Date Temp Pulse Resp B/P (MAP) Pulse Ox O2 O2 Flow FiO2 Time Delivery Rate 11/30/18 64 12:02 11/30/18 97.7 18 118/58 97 11:13 (78) 11/30/18 2.0 10:41 11/30/18 Nasal 08:01 Cannula Intake and Output 11/29/18 11/29/18 11/30/18 1515:00 23:00 07:00 IntakeIntake Total 700 ml 400 ml BalanceBalance 700 ml 400 ml Exam Constitutional: alert, oriented Eyes: other (Right eye blindness) Respiratory: diminished breath sounds Cardiovascular: regular rate and rhythm Gastrointestinal: soft, non-tender Musculoskeletal: nl extremities to inspection Extremities: normal pulses, other (Right upper extremity AV fistula) Medications Medications Current Medications IV Flush (NS 3 ml) 3 ml PER PROTOCOL IV ; Start 11/18/18 at 00:00 Ondansetron HCl (Zofran Inj) 4 mg Q6H PRN IV NAUSEA AND/OR VOMITING Last administered on 11/27/18 13:12; Admin Dose 4 MG; Start 11/18/18 at 00:00 Acetaminophen (Tylenol Tab) 650 mg Q6H PRN PO PAIN LEVEL 1-3 OR FEVER Last administered on 11/19/18 11:18; Admin Dose 650 MG; Start 11/18/18 at 00:00 Heparin Sodium (Porcine) (Heparin (5000 Units/1ml)) 5,000 unit Q8 SC Last administered on 11/30/18 13:42; Admin Dose 5,000 UNIT; Start 11/18/18 at 06:00 Diagnostic Test (Pha) (Accu-Chek) 1 ea 02 XX Last administered on 11/21/18 02:45; Admin Dose 1 EA; Start 11/19/18 at 02:00 Insulin Aspart (Novolog Insulin Pen) NOVOLOG *MILD* ALGORITHM WITH MEALS BEDTIME SC Last administered on 11/30/18 12:02; Admin Dose 1 UNIT; Start 11/18/18 at 17:55 Acetaminophen (Tylenol Tab) 325 mg Q4H PRN PO MILD PAIN(1-3)OR ELEVATED TEMP; Start 11/18/18 at 12:30 Albuterol (Proventil 0.083% (Neb)) 2.5 mg Q6 PRN NEB WHEEZING AND SOB Last administered on 11/27/18 05:05; Admin Dose 2.5 MG; Start 11/18/18 at 12:30 Amlodipine Besylate (Norvasc) 5 mg QHS PO Last administered on 11/29/18 20:53; Admin Dose 5 MG; Start 11/18/18 at 21:00 Apixaban (Eliquis) 2.5 mg BID PO ; Start 11/18/18 at 21:00; Status Hold Ascorbic Acid (Vitamin C) 500 mg DAILY PO Last administered on 11/30/18 08:23; Admin Dose 500 MG; Start 11/19/18 at 09:00 Atorvastatin Calcium (Lipitor) 20 mg QHS PO Last administered on 11/29/18 20:53; Admin Dose 20 MG; Start 11/18/18 at 21:00 Citalopram Hydrobromide (Celexa) 10 mg DAILY PO Last administered on 11/30/18 08:24; Admin Dose 10 MG; Start 11/19/18 at 09:00 Folic Acid (Folic Acid) 1 mg DAILY PO Last administered on 11/30/18 08:24; Admin Dose 1 MG; Start 11/19/18 at 09:00 Insulin Detemir (Levemir) 6 units QHS SC Last administered on 11/29/18 21:18; Admin Dose 6 UNITS; Start 11/18/18 at 21:00 Levothyroxine Sodium (Synthroid) 100 mcg BEFORE BREAKFAST PO Last administered on 11/30/18 05:13; Admin Dose 100 MCG; Start 11/19/18 at 07:00 Lorazepam (Ativan) 1 mg Q8 PRN PO ANXIETY Last administered on 11/30/18 03:45; Admin Dose 1 MG; Start 11/18/18 at 12:30 Losartan Potassium (Cozaar) 50 mg BID PO Last administered on 11/30/18 08:24; Admin Dose 50 MG; Start 11/18/18 at 21:00 Pantoprazole (Protonix Tab) 40 mg DAILY PO Last administered on 11/30/18 08:23; Admin Dose 40 MG; Start 11/19/18 at 09:00 Prednisolone Acetate (Pred-Forte 1%) 1 drop BID RIGHT EYE Last administered on 11/30/18 08:25; Admin Dose 1 DROP; Start 11/18/18 at 21:00 Tramadol HCl (Ultram) 50 mg Q6H PRN PO PAIN Last administered on 11/25/18 21:50; Admin Dose 50 MG; Start 11/18/18 at 12:30 Trazodone HCl (Desyrel) 50 mg QHS PO Last administered on 11/29/18 20:53; Admin Dose 50 MG; Start 11/18/18 at 21:00 Zinc Sulfate (Zinc Sulfate) 220 mg DAILY PO Last administered on 11/30/18 08:23; Admin Dose 220 MG; Start 11/19/18 at 09:00 Morphine Sulfate (morphine) 6 mg Q4H PRN PO SEVERE PAIN LEVEL 7-10 Last adm inistered on 1/19/19at 21:16; Admin Dose 6 MG; Start 11/19/18 at 23:00 Mupirocin (Bactroban) 1 applic BID TOP Last administered on 11/30/18 08:25; Admin Dose 1 APPLIC; Start 11/20/18 at 13:00 Famotidine (Pepcid) 20 mg DAILY PO Last administered on 11/30/18 08:23; Admin Dose 20 MG; Start 11/24/18 at 09:00 Docusate Sodium (Colace) 100 mg BID PO Last administered on 11/30/18 08:23; Admin Dose 100 MG; Start 11/24/18 at 21:00 Bisacodyl (Dulcolax) 5 mg DAILY PRN PO CONSTIPATION; Start 11/24/18 at 19:00 Metoprolol Tartrate (Lopressor) 12.5 mg BID PO Last administered on 11/30/18 08:25; Admin Dose 12.5 MG; Start 11/26/18 at 21:00 Amiodarone HCl (Cordarone) 100 mg DAILY PO Last administered on 11/30/18 08:24; Admin Dose 100 MG; Start 11/27/18 at 09:00 SIN IZAGUIRRE Nov 30, 2018 14:48
--- NOTE | 2018-11-30 15:02 | NUR ---
Nurse Notes MD place HD order to be done today 11/30/2018, called [facility] and spoke with Rola. Pt confirmed for dialysis today with confirmation number: [id number]. No specific time given. Addendum: 11/30/18 at 1814 by LORIE RODRIGUEZ RN Called [facility] again to verify the time for Pt's dialysis, per Rola, on-call nurse will do it and will get back to us when she has an exact time but Pt is still scheduled for later today. Will endorse this to next shift.
--- NOTE | 2018-11-30 18:35 | NUR ---
EOSS Pt ao x 4. Pt stable at this time and in no distress noted throughout the shift. Pt was repositioned q2h and woundcare treatment was done. Pt was updated regarding plan of care. Pending HD for tonight. All needs met. Room kept clean and clutter free. Isolation precautions maintained. Hourly rounding done. Call light within reach. Will endorse to next shift accordingly.
[2018-11-30] MEDS: AMLODIPINE 5 MG TAB PO SCH (21:00)
[2018-11-30] MEDS: traZODone 50 MG TAB PO SCH (21:33)
[2018-11-30] MEDS: ATORVASTATIN 20 MG TAB PO SCH (21:34)
[2018-11-30] MEDS: INSULIN DETEMIR [LEVEMIR] (100 UNITS/ML) SYG SC SCH (21:54)
[2018-12-01] VITALS (25 sets, daily range): BP systolic 104–149; BP diastolic 50–79; PULSE 63–75; RESP 18
[2018-12-01] MEDS: ONDANSETRON 4 MG INJ IV PRN (00:10)
[2018-12-01] MEDS: ACCU-CHEK XX SCH (02:00)
--- NOTE | 2018-12-01 03:53 | NUR ---
Hemodialysis completed, 3000ml UF removed, well tolerated, no acute events, no sob, denies pain, access site secured, no bleeding, awake, safety observed. primary RN aware. BP 116/56 post HD. Addendum: 12/01/18 at 0354 by RASHID SOLOMON Amended: Links added.
[2018-12-01] MEDS: LORAZEPAM 1 MG TAB PO PRN ×2 (04:07→23:51)
[2018-12-01] MEDS: LEVOTHYROXINE 100 MCG TAB PO SCH (05:53)
[2018-12-01] MEDS: HEPARIN 5,000 UNIT/1 ML VIAL SC SCH ×3 (06:13→22:35)
--- NOTE | 2018-12-01 06:40 | NUR ---
All needs attended and met.Hemodialysis started at 12:45AM and ended at 04:00AM, 3.5L out Kept clean and comfortable. Ativan PO x 1 given. No significant change of status. Placed call light within reach.
[2018-12-01] MEDS: INSULIN ASPART [NOVOLOG] 3 ML PEN SC SCH ×4 (07:55→21:00)
[2018-12-01] MEDS: ASCORBIC ACID 500 MG TAB PO SCH (07:58)
[2018-12-01] MEDS: FOLIC ACID 1 MG TAB PO SCH (07:58)
[2018-12-01] MEDS: FAMOTIDINE 20 MG TAB PO SCH (07:58)
[2018-12-01] MEDS: CITALOPRAM 20 MG TAB PO SCH (07:58)
[2018-12-01] MEDS: AMIODARONE 200 MG TAB PO SCH (07:59)
[2018-12-01] MEDS: LOSARTAN 50 MG TAB PO SCH ×2 (07:59→21:13)
[2018-12-01] MEDS: DOCUSATE SODIUM 100 MG CAP PO SCH ×2 (08:00→21:12)
[2018-12-01] MEDS: ZINC SULFATE 220 MG CAP PO SCH (08:00)
[2018-12-01] MEDS: PANTOPRAZOLE (EC) 40 MG TAB PO SCH (08:00)
[2018-12-01] MEDS: METOPROLOL 25 MG TAB PO SCH ×2 (08:00→21:13)
[2018-12-01] MEDS: BALSAM PERU/CASTOR OIL 60 GM TUBE TOP SCH (08:01)
[2018-12-01] MEDS: PREDNISOLONE ACET 1% 5 ML OPH RIGHT EYE SCH ×2 (08:01→21:14)
[2018-12-01] MEDS: MUPIROCIN 2% 22 GM OINT TOP SCH ×2 (08:01→21:14)
--- NOTE | 2018-12-01 13:58 | CONS ---
Assessment/Plan Assessment/Plan Hospital Course No acute events, sleeping, looks comfortable on nasal cannula Indwelling: right forearm AV fistula Urine cx + MDR Proteus===> s/p amikacin Physical examination: This is obese well-developed elderly woman who is in no distress. Head atraumatic normocephalic sclera nonicteric neck is supple chest rise symmetrical breath sounds diminished bases. Heart: S1-S2. Abdomen obese soft bowel sounds present. Extremities without cyanosis right forearm AV fistula patent Assessment: 1. CHF exacerbation 2. End-stage renal disease, on hemodialysis 3. Morbid obesity 4. Diabetes 5. Hypertension 6. MRSA colonization 7. MDR UTI==> treated Plan: Patient remained stable, continue Bactroban to nares, HD per renal Result Diagram: 12/01/18 0602 12/01/18 0602 Results 24hrs Laboratory Tests Test 11/30/18 16:59 11/30/18 21:29 12/01/18 06:02 12/01/18 07:57 Bedside Glucose 137 147 120 White Blood Count 6.4 Red Blood Count 3.19 L Hemoglobin 9.4 L Hematocrit 31.0 L Mean Corpuscular 97.2 Volume Mean Corpuscular 29.5 Hemoglobin Mean Corpuscular 30.3 L Hemoglobin Concent Red Cell 14.6 H Distribution Width Platelet Count 137 L Mean Platelet Volume 10.8 H Immature 0.300 Granulocytes % Neutrophils % 76.8 Lymphocytes % 9.2 L Monocytes % 11.7 H Eosinophils % 1.4 Basophils % 0.6 Nucleated Red Blood 0.0 Cells % Immature 0.020 Granulocytes # Neutrophils # 4.9 Lymphocytes # 0.6 L Monocytes # 0.8 Eosinophils # 0.1 Basophils # 0.0 Nucleated Red Blood 0.0 Cells # Sodium Level 134 L Potassium Level 3.5 Chloride Level 95 L Carbon Dioxide Level 29 Anion Gap 10 Blood Urea Nitrogen 16 Creatinine 2.75 H Est Glomerular 17 L Filtrat Rate mL/min Glucose Level 126 Calcium Level 8.7 Test 12/01/18 11:59 Bedside Glucose 135 Consultation Date/Type/Reason Admit Date/Time Nov 17, 2018 at 23:34 Initial Consult Date 11/18/18 Type of Consult id Exam/Review of Systems Vital Signs Vitals Vital Signs Date Temp Pulse Resp B/P (MAP) Pulse Ox O2 O2 Flow FiO2 Time Delivery Rate 12/01/18 72 12:34 12/01/18 98.7 18 149/66 97 11:20 (93) 12/01/18 Nasal 2.0 07:39 Cannula Intake and Output 11/30/18 11/30/18 12/01/18 1515:00 23:00 07:00 IntakeIntake Total 550 ml 600 ml OutputOutput Total 3400 ml BalanceBalance 550 ml -2800 ml Medications Medications Current Medications IV Flush (NS 3 ml) 3 ml PER PROTOCOL IV ; Start 11/18/18 at 00:00 Ondansetron HCl (Zofran Inj) 4 mg Q6H PRN IV NAUSEA AND/OR VOMITING Last administered on 12/01/18at 00:10; Admin Dose 4 MG; Start 11/18/18 at 00:00 Acetaminophen (Tylenol Tab) 650 mg Q6H PRN PO PAIN LEVEL 1-3 OR FEVER Last administered on 11/19/18at 11:18; Admin Dose 650 MG; Start 11/18/18 at 00:00 Heparin Sodium (Porcine) (Heparin (5000 Units/1ml)) 5,000 unit Q8 SC Last administered on 12/01/18at 13:33; Admin Dose 5,000 UNIT; Start 11/18/18 at 06:00 Diagnostic Test (Pha) (Accu-Chek) 1 ea 02 XX Last administered on 11/21/18at 02:45; Admin Dose 1 EA; Start 11/19/18 at 02:00 Insulin Aspart (Novolog Insulin Pen) NOVOLOG *MILD* ALGORITHM WITH MEALS BEDTIME SC Last administered on 11/30/18at 12:02; Admin Dose 1 UNIT; Start 11/18/18 at 17:55 Acetaminophen (Tylenol Tab) 325 mg Q4H PRN PO MILD PAIN(1-3)OR ELEVATED TEMP; Start 11/18/18 at 12:30 Albuterol (Proventil 0.083% (Neb)) 2.5 mg Q6 PRN NEB WHEEZING AND SOB Last administered on 11/27/18at 05:05; Admin Dose 2.5 MG; Start 11/18/18 at 12:30 Amlodipine Besylate (Norvasc) 5 mg QHS PO Last administered on 11/29/18at 20:53; Admin Dose 5 MG; Start 11/18/18 at 21:00 Apixaban (Eliquis) 2.5 mg BID PO ; Start 11/18/18 at 21:00; Status Hold Ascorbic Acid (Vitamin C) 500 mg DAILY PO Last administered on 12/01/18 07:58; Admin Dose 500 MG; Start 11/19/18 at 09:00 Atorvastatin Calcium (Lipitor) 20 mg QHS PO Last administered on 11/30/18 21:34; Admin Dose 20 MG; Start 11/18/18 at 21:00 Citalopram Hydrobromide (Celexa) 10 mg DAILY PO Last administered on 12/01/18 07:58; Admin Dose 10 MG; Start 11/19/18 at 09:00 Folic Acid (Folic Acid) 1 mg DAILY PO Last administered on 12/01/18 07:58; Admin Dose 1 MG; Start 11/19/18 at 09:00 Insulin Detemir (Levemir) 6 units QHS SC Last administered on 11/30/18 21:54; Admin Dose 6 UNITS; Start 11/18/18 at 21:00 Levothyroxine Sodium (Synthroid) 100 mcg BEFORE BREAKFAST PO Last administered on 12/01/18 05:53; Admin Dose 100 MCG; Start 11/19/18 at 07:00 Lorazepam (Ativan) 1 mg Q8 PRN PO ANXIETY Last administered on 12/01/18 04:07; Admin Dose 1 MG; Start 11/18/18 at 12:30 Losartan Potassium (Cozaar) 50 mg BID PO Last administered on 12/01/18 07:59; Admin Dose 50 MG; Start 11/18/18 at 21:00 Pantoprazole (Protonix Tab) 40 mg DAILY PO Last administered on 12/01/18 08:00; Admin Dose 40 MG; Start 11/19/18 at 09:00 Prednisolone Acetate (Pred-Forte 1%) 1 drop BID RIGHT EYE Last administered on 12/01/18 08:01; Admin Dose 1 DROP; Start 11/18/18 at 21:00 Tramadol HCl (Ultram) 50 mg Q6H PRN PO PAIN Last administered on 11/25/18 21:50; Admin Dose 50 MG; Start 11/18/18 at 12:30 Trazodone HCl (Desyrel) 50 mg QHS PO Last administered on 1/21/19at 21:33; Admin Dose 50 MG; Start 11/18/18 at 21:00 Zinc Sulfate (Zinc Sulfate) 220 mg DAILY PO Last administered on 12/01/18at 08:00; Admin Dose 220 MG; Start 11/19/18 at 09:00 Morphine Sulfate (morphine) 6 mg Q4H PRN PO SEVERE PAIN LEVEL 7-10 Last administered on 11/28/18at 21:16; Admin Dose 6 MG; Start 11/19/18 at 23:00 Mupirocin (Bactroban) 1 applic BID TOP Last administered on 12/01/18at 08:01; Admin Dose 1 APPLIC; Start 11/20/18 at 13:00 Famotidine (Pepcid) 20 mg DAILY PO Last administered on 12/01/18at 07:58; Admin Dose 20 MG; Start 11/24/18 at 09:00 Docusate Sodium (Colace) 100 mg BID PO Last administered on 12/01/18at 08:00; Admin Dose 100 MG; Start 11/24/18 at 21:00 Bisacodyl (Dulcolax) 5 mg DAILY PRN PO CONSTIPATION; Start 11/24/18 at 19:00 Metoprolol Tartrate (Lopressor) 12.5 mg BID PO Last administered on 12/01/18at 08:00; Admin Dose 12.5 MG; Start 11/26/18 at 21:00 Amiodarone HCl (Cordarone) 100 mg DAILY PO Last administered on 12/01/18at 07:59; Admin Dose 100 MG; Start 11/27/18 at 09:00 Date/Time of Note Date/Time of Note DATE: 12/01/18 TIME: 13:57 ALYX NAVARRO NP Dec 01, 2018 13:58
--- NOTE | 2018-12-01 16:57 | PN ---
Date/Time of Note Date/Time of Note DATE: 12/01/18 TIME: 16:56 Assessment/Plan VTE Prophylaxis Risk score (from Ns)>0 risk: 8 SCD applied (from Ns): Yes Pharmacological prophylaxis: LMWH Lines/Catheters IV [facility]ter Type (from [facility] Saline Lock Urinary Cath still in place: No Assessment/Plan Hospital Course Patient is currently on 5-6 L oxygen NC with humidifier, desaturated to 90% when O2 decreased to 2 L. Chest x-ray reveals large bilateral pleural effusion cardiomegaly and overall worsened aeration. Assessment/Plan -Proteus mirabilis MDR urinary tract infection, continue amikacin. -Shortness of breath secondary to pulmonary congestion rising from diastolic dysfunction of the heart. Dr. Louise is following from pulmonology standpoint. -Hemodialysis dependent end-stage renal disease. Continue on hemodialysis. Dr. Mcdaniel is following from nephrology standpoint. -Diabetes mellitus type 2 hemoglobin A1c 6.0, continue Levemir and NovoLog per mild algorithm sliding scale. -Hypothyroidism, continue levothyroxine -Hypertension, continue patient's antihypertensive medication from residential facility. -Hyperlipidemia, continue statin -MRSA of nares colonization Further recommendations based on clinical course. Plan of care discussed with Dr. Mandel. Result Diagram: 12/01/18 0602 12/01/18 0602 Results 24hrs Laboratory Tests Test 11/30/18 16:59 11/30/18 21:29 12/01/18 06:02 12/01/18 07:57 Bedside Glucose 137 147 120 White Blood Count 6.4 Red Blood Count 3.19 L Hemoglobin 9.4 L Hematocrit 31.0 L Mean Corpuscular 97.2 Volume Mean Corpuscular 29.5 Hemoglobin Mean Corpuscular 30.3 L Hemoglobin Concent Red Cell 14.6 H Distribution Width Platelet Count 137 L Mean Platelet Volume 10.8 H Immature 0.300 Granulocytes % Neutrophils % 76.8 Lymphocytes % 9.2 L Monocytes % 11.7 H Eosinophils % 1.4 Basophils % 0.6 Nucleated Red Blood 0.0 Cells % Immature 0.020 Granulocytes # Neutrophils # 4.9 Lymphocytes # 0.6 L Monocytes # 0.8 Eosinophils # 0.1 Basophils # 0.0 Nucleated Red Blood 0.0 Cells # Sodium Level 134 L Potassium Level 3.5 Chloride Level 95 L Carbon Dioxide Level 29 Anion Gap 10 Blood Urea Nitrogen 16 Creatinine 2.75 H Est Glomerular 17 L Filtrat Rate mL/min Glucose Level 126 Calcium Level 8.7 Test 12/01/18 11:59 Bedside Glucose 135 Exam/Review of Systems Vital Signs Vitals Vital Signs Date Temp Pulse Resp B/P (MAP) Pulse Ox O2 O2 Flow FiO2 Time Delivery Rate 12/01/18 75 16:34 12/01/18 98.5 18 148/65 98 16:25 (92) 12/01/18 Nasal 2.0 07:39 Cannula Intake and Output 11/30/18 11/30/18 12/01/18 1515:00 23:00 07:00 IntakeIntake Total 550 ml 600 ml OutputOutput Total 3400 ml BalanceBalance 550 ml -2800 ml Exam Constitutional: alert, oriented Eyes: other (Right eye blindness) Respiratory: diminished breath sounds Cardiovascular: regular rate and rhythm Gastrointestinal: soft, non-tender Musculoskeletal: nl extremities to inspection Extremities: normal pulses, other (Right upper extremity AV fistula) Medications Medications Current Medications IV Flush (NS 3 ml) 3 ml PER PROTOCOL IV ; Start 11/18/18 at 00:00 Ondansetron HCl (Zofran Inj) 4 mg Q6H PRN IV NAUSEA AND/OR VOMITING Last administered on 12/01/18at 00:10; Admin Dose 4 MG; Start 11/18/18 at 00:00 Acetaminophen (Tylenol Tab) 650 mg Q6H PRN PO PAIN LEVEL 1-3 OR FEVER Last administered on 11/19/18at 11:18; Admin Dose 650 MG; Start 11/18/18 at 00:00 Heparin Sodium (Porcine) (Heparin (5000 Units/1ml)) 5,000 unit Q8 SC Last administered on 12/01/18at 13:33; Admin Dose 5,000 UNIT; Start 11/18/18 at 06:00 Diagnostic Test (Pha) (Accu-Chek) 1 ea 02 XX Last administered on 11/21/18at 02:45; Admin Dose 1 EA; Start 11/19/18 at 02:00 Insulin Aspart (Novolog Insulin Pen) NOVOLOG *MILD* ALGORITHM WITH MEALS BEDTIME SC Last administered on 11/30/18at 12:02; Admin Dose 1 UNIT; Start 11/18/18 at 17:55 Acetaminophen (Tylenol Tab) 325 mg Q4H PRN PO MILD PAIN(1-3)OR ELEVATED TEMP; Start 11/18/18 at 12:30 Albuterol (Proventil 0.083% (Neb)) 2.5 mg Q6 PRN NEB WHEEZING AND SOB Last administered on 11/27/18 05:05; Admin Dose 2.5 MG; Start 11/18/18 at 12:30 Amlodipine Besylate (Norvasc) 5 mg QHS PO Last administered on 11/29/18 20:53; Admin Dose 5 MG; Start 11/18/18 at 21:00 Apixaban (Eliquis) 2.5 mg BID PO ; Start 11/18/18 at 21:00; Status Hold Ascorbic Acid (Vitamin C) 500 mg DAILY PO Last administered on 12/01/18 07:58; Admin Dose 500 MG; Start 11/19/18 at 09:00 Atorvastatin Calcium (Lipitor) 20 mg QHS PO Last administered on 11/30/18 21:34; Admin Dose 20 MG; Start 11/18/18 at 21:00 Citalopram Hydrobromide (Celexa) 10 mg DAILY PO Last administered on 12/01/18 07:58; Admin Dose 10 MG; Start 11/19/18 at 09:00 Folic Acid (Folic Acid) 1 mg DAILY PO Last administered on 12/01/18 07:58; Admin Dose 1 MG; Start 11/19/18 at 09:00 Insulin Detemir (Levemir) 6 units QHS SC Last administered on 11/30/18 21:54; Admin Dose 6 UNITS; Start 11/18/18 at 21:00 Levothyroxine Sodium (Synthroid) 100 mcg BEFORE BREAKFAST PO Last administered on 12/01/18 05:53; Admin Dose 100 MCG; Start 11/19/18 at 07:00 Lorazepam (Ativan) 1 mg Q8 PRN PO ANXIETY Last administered on 12/01/18 04:07; Admin Dose 1 MG; Start 11/18/18 at 12:30 Losartan Potassium (Cozaar) 50 mg BID PO Last administered on 12/01/18 07:59; Admin Dose 50 MG; Start 11/18/18 at 21:00 Pantoprazole (Protonix Tab) 40 mg DAILY PO Last administered on 12/01/18 08:00; Admin Dose 40 MG; Start 11/19/18 at 09:00 Prednisolone Acetate (Pred-Forte 1%) 1 drop BID RIGHT EYE Last administered on 12/01/18 08:01; Admin Dose 1 DROP; Start 11/18/18 at 21:00 Tramadol HCl (Ultram) 50 mg Q6H PRN PO PAIN Last administered on 11/25/18 21:50; Admin Dose 50 MG; Start 11/18/18 at 12:30 Trazodone HCl (Desyrel) 50 mg QHS PO Last administered on 11/30/18 21:33; Admin Dose 50 MG; Start 11/18/18 at 21:00 Zinc Sulfate (Zinc Sulfate) 220 mg DAILY PO Last administered on 12/01/18 08:00; Admin Dose 220 MG; Start 11/19/18 at 09:00 Morphine Sulfate (morphine) 6 mg Q4H PRN PO SEVERE PAIN LEVEL 7-10 Last administered on 11/28/18 21:16; Admin Dose 6 MG; Start 11/19/18 at 23:00 Mupirocin (Bactroban) 1 applic BID TOP Last administered on 12/01/18 08:01; Admin Dose 1 APPLIC; Start 11/20/18 at 13:00 Famotidine (Pepcid) 20 mg DAILY PO Last administered on 12/01/18 07:58; Admin Dose 20 MG; Start 11/24/18 at 09:00 Docusate Sodium (Colace) 100 mg BID PO Last administered on 12/01/18 08:00; Admin Dose 100 MG; Start 11/24/18 at 21:00 Bisacodyl (Dulcolax) 5 mg DAILY PRN PO CONSTIPATION; Start 11/24/18 at 19:00 Metoprolol Tartrate (Lopressor) 12.5 mg BID PO Last administered on 12/01/18 08:00; Admin Dose 12.5 MG; Start 11/26/18 at 21:00 Amiodarone HCl (Cordarone) 100 mg DAILY PO Last administered on 12/01/18 07:59; Admin Dose 100 MG; Start 11/27/18 at 09:00 SIN IZAGUIRRE Dec 01, 2018 16:57
--- NOTE | 2018-12-01 17:23 | NUR ---
RN notes patient awake in bed, aox2-3 with periods of confusion. turned and repositioned q2h and as needed. all due medications given, needs attended. stable at this time, will endorse
[2018-12-01] MEDS: ATORVASTATIN 20 MG TAB PO SCH (21:12)
[2018-12-01] MEDS: traZODone 50 MG TAB PO SCH (21:12)
[2018-12-01] MEDS: AMLODIPINE 5 MG TAB PO SCH (21:13)
[2018-12-01] MEDS: INSULIN DETEMIR [LEVEMIR] (100 UNITS/ML) SYG SC SCH (21:51)
[2018-12-02] VITALS (10 sets, daily range): BP systolic 125–146; BP diastolic 57–65; PULSE 64–70; RESP 16–18
[2018-12-02] MEDS: ACCU-CHEK XX SCH (02:00)
[2018-12-02] MEDS: LEVOTHYROXINE 100 MCG TAB PO SCH (06:08)
[2018-12-02] MEDS: HEPARIN 5,000 UNIT/1 ML VIAL SC SCH ×3 (06:34→21:52)
[2018-12-02] MEDS: INSULIN ASPART [NOVOLOG] 3 ML PEN SC SCH ×4 (07:55→21:00)
[2018-12-02] MEDS: ASCORBIC ACID 500 MG TAB PO SCH (08:47)
[2018-12-02] MEDS: CITALOPRAM 20 MG TAB PO SCH (08:47)
[2018-12-02] MEDS: DOCUSATE SODIUM 100 MG CAP PO SCH ×2 (08:47→21:32)
[2018-12-02] MEDS: FOLIC ACID 1 MG TAB PO SCH (08:47)
[2018-12-02] MEDS: METOPROLOL 25 MG TAB PO SCH ×2 (08:47→21:34)
[2018-12-02] MEDS: FAMOTIDINE 20 MG TAB PO SCH (08:47)
[2018-12-02] MEDS: PANTOPRAZOLE (EC) 40 MG TAB PO SCH (08:47)
[2018-12-02] MEDS: ZINC SULFATE 220 MG CAP PO SCH (08:47)
[2018-12-02] MEDS: MUPIROCIN 2% 22 GM OINT TOP SCH ×2 (08:48→21:35)
[2018-12-02] MEDS: LOSARTAN 50 MG TAB PO SCH ×2 (08:48→21:33)
[2018-12-02] MEDS: AMIODARONE 200 MG TAB PO SCH (08:48)
[2018-12-02] MEDS: PREDNISOLONE ACET 1% 5 ML OPH RIGHT EYE SCH ×2 (08:49→21:34)
[2018-12-02] MEDS: BALSAM PERU/CASTOR OIL 60 GM TUBE TOP SCH (08:49)
--- NOTE | 2018-12-02 14:26 | CONS ---
Assessment/Plan Assessment/Plan Hospital Course No acute events, looks comfortable no fevers Indwelling: right forearm AV fistula Urine cx + MDR Proteus===> s/p amikacin Physical examination: This is obese well-developed elderly woman who is in no distress. Head atraumatic normocephalic sclera nonicteric neck is supple chest rise symmetrical breath sounds diminished bases. Heart: S1-S2. Abdomen obese soft bowel sounds present. Extremities without cyanosis right forearm AV fistula patent Assessment: 1. CHF exacerbation 2. End-stage renal disease, on hemodialysis 3. Morbid obesity 4. Diabetes 5. Hypertension 6. MRSA colonization 7. MDR UTI==> treated Plan: Patient remained stable, continue Bactroban to nares, HD per renal Result Diagram: 12/01/18 0602 12/01/18 0602 Results 24hrs Laboratory Tests Test 12/01/18 17:10 12/01/18 21:11 12/02/18 08:49 12/02/18 12:40 Bedside Glucose 132 125 81 76 Consultation Date/Type/Reason Admit Date/Time Nov 17, 2018 at 23:34 Initial Consult Date 11/18/18 Type of Consult id Exam/Review of Systems Vital Signs Vitals Vital Signs Date Temp Pulse Resp B/P (MAP) Pulse Ox O2 O2 Flow FiO2 Time Delivery Rate 12/02/18 68 12:17 12/02/18 98.1 17 146/65 95 11:40 (92) 12/02/18 Nasal 4.0 07:43 Cannula Intake and Output 12/01/18 12/01/18 12/02/18 1515:00 23:00 07:00 IntakeIntake Total 600 ml BalanceBalance 600 ml Medications Medications Current Medications IV Flush (NS 3 ml) 3 ml PER PROTOCOL IV ; Start 11/18/18 at 00:00 Ondansetron HCl (Zofran Inj) 4 mg Q6H PRN IV NAUSEA AND/OR VOMITING Last administered on 12/01/18at 00:10; Admin Dose 4 MG; Start 11/18/18 at 00:00 Acetaminophen (Tylenol Tab) 650 mg Q6H PRN PO PAIN LEVEL 1-3 OR FEVER Last administered on 11/19/18at 11:18; Admin Dose 650 MG; Start 11/18/18 at 00:00 Heparin Sodium (Porcine) (Heparin (5000 Units/1ml)) 5,000 unit Q8 SC Last administered on 12/02/18 13:56; Admin Dose 5,000 UNIT; Start 11/18/18 at 06:00 Diagnostic Test (Pha) (Accu-Chek) 1 ea 02 XX Last administered on 11/21/18at 02:45; Admin Dose 1 EA; Start 11/19/18 at 02:00 Insulin Aspart (Novolog Insulin Pen) NOVOLOG *MILD* ALGORITHM WITH MEALS BEDTIME SC Last administered on 11/30/18 12:02; Admin Dose 1 UNIT; Start 11/18/18 at 17:55 Acetaminophen (Tylenol Tab) 325 mg Q4H PRN PO MILD PAIN(1-3)OR ELEVATED TEMP; Start 11/18/18 at 12:30 Albuterol (Proventil 0.083% (Neb)) 2.5 mg Q6 PRN NEB WHEEZING AND SOB Last administered on 11/27/18 05:05; Admin Dose 2.5 MG; Start 11/18/18 at 12:30 Amlodipine Besylate (Norvasc) 5 mg QHS PO Last administered on 12/01/18 21:13; Admin Dose 5 MG; Start 11/18/18 at 21:00 Apixaban (Eliquis) 2.5 mg BID PO ; Start 11/18/18 at 21:00; Status Hold Ascorbic Acid (Vitamin C) 500 mg DAILY PO Last administered on 12/02/18 08:47; Admin Dose 500 MG; Start 11/19/18 at 09:00 Atorvastatin Calcium (Lipitor) 20 mg QHS PO Last administered on 12/01/18at 21:12; Admin Dose 20 MG; Start 11/18/18 at 21:00 Citalopram Hydrobromide (Celexa) 10 mg DAILY PO Last administered on 12/02/18 08:47; Admin Dose 10 MG; Start 11/19/18 at 09:00 Folic Acid (Folic Acid) 1 mg DAILY PO Last administered on 12/02/18 08:47; Admin Dose 1 MG; Start 11/19/18 at 09:00 Insulin Detemir (Levemir) 6 units QHS SC Last administered on 12/01/18 21:51; Admin Dose 6 UNITS; Start 11/18/18 at 21:00 Levothyroxine Sodium (Synthroid) 100 mcg BEFORE BREAKFAST PO Last administered on 12/02/18 06:08; Admin Dose 100 MCG; Start 11/19/18 at 07:00 Lorazepam (Ativan) 1 mg Q8 PRN PO ANXIETY Last administered on 12/01/18 23:51; Admin Dose 1 MG; Start 11/18/18 at 12:30 Losartan Potassium (Cozaar) 50 mg BID PO Last administered on 12/02/18 08:48; Admin Dose 50 MG; Start 11/18/18 at 21:00 Pantoprazole (Protonix Tab) 40 mg DAILY PO Last administered on 12/02/18 08:47; Admin Dose 40 MG; Start 11/19/18 at 09:00 Prednisolone Acetate (Pred-Forte 1%) 1 drop BID RIGHT EYE Last administered on 12/02/18 08:49; Admin Dose 1 DROP; Start 11/18/18 at 21:00 Tramadol HCl (Ultram) 50 mg Q6H PRN PO PAIN Last administered on 11/25/18 21:50; Admin Dose 50 MG; Start 11/18/18 at 12:30 Trazodone HCl (Desyrel) 50 mg QHS PO Last administered on 12/01/18 21:12; Admin Dose 50 MG; Start 11/18/18 at 21:00 Zinc Sulfate (Zinc Sulfate) 220 mg DAILY PO Last administered on 12/02/18 08:47; Admin Dose 220 MG; Start 11/19/18 at 09:00 Morphine Sulfate (morphine) 6 mg Q4H PRN PO SEVERE PAIN LEVEL 7-10 Last administered on 11/28/18 21:16; Admin Dose 6 MG; Start 11/19/18 at 23:00 Mupirocin (Bactroban) 1 applic BID TOP Last administered on 12/02/18 08:48; Admin Dose 1 APPLIC; Start 11/20/18 at 13:00 Famotidine (Pepcid) 20 mg DAILY PO Last administered on 12/02/18 08:47; Admin Dose 20 MG; Start 11/24/18 at 09:00 Docusate Sodium (Colace) 100 mg BID PO Last administered on 12/02/18 08:47; Admin Dose 100 MG; Start 11/24/18 at 21:00 Bisacodyl (Dulcolax) 5 mg DAILY PRN PO CONSTIPATION; Start 11/24/18 at 19:00 Metoprolol Tartrate (Lopressor) 12.5 mg BID PO Last administered on 12/02/18at 08:47; Admin Dose 12.5 MG; Start 11/26/18 at 21:00 Amiodarone HCl (Cordarone) 100 mg DAILY PO Last administered on 12/02/18at 08:48; Admin Dose 100 MG; Start 11/27/18 at 09:00 Date/Time of Note Date/Time of Note DATE: 12/02/18 TIME: 14:26 ALYX NAVARRO NP Dec 02, 2018 14:26
--- NOTE | 2018-12-02 15:33 | NUR ---
CM NOTES ROUSE REFERRAL WAS SENT AND LUPE ([phone]) MADE AWARE. LUPE TO CALL THIS CM FOR UPDATE. MARC KATHLEEN, RNCM [phone]
--- NOTE | 2018-12-02 15:43 | PN ---
Date/Time of Note Date/Time of Note DATE: 12/02/18 TIME: 15:36 Assessment/Plan VTE Prophylaxis Risk score (from Ns)>0 risk: 8 SCD applied (from Ns): Yes Pharmacological prophylaxis: heparin Lines/Catheters IV C[facility] Type (from [facility] Saline Lock Urinary Cath still in place: No Assessment/Plan Hospital Course Patient complains of generalized weakness however remains hemodynamically stable afebrile, continues on 5-6 L oxygen NC with humidifier, doing to RN patient desaturates went oxygen titrated down, pending [facility] eval. Assessment/Plan -Proteus mirabilis MDR urinary tract infection, completed treatment with antibiotics. Dr. Guevara is following in infection disease consultation. -Shortness of breath secondary to pulmonary congestion rising from diastolic dysfunction of the heart. Dr. Louise is following from pulmonology standpoint. -Hemodialysis dependent end-stage renal disease. Continue on hemodialysis. Dr. Mcdaniel is following from nephrology standpoint. -Diastolic dysfunction congestive heart failure, continue hemodialysis. -Paroxysmal atrial fibrillation, patient is currently in sinus rhythm, continue heparin, will resume Eliquis upon discharge. -Diabetes mellitus type 2 hemoglobin A1c 6.0, continue Levemir and NovoLog per mild algorithm sliding scale. -Hypothyroidism, continue levothyroxine -Hypertension, continue patient's antihypertensive medication from [facility]. -Hyperlipidemia, continue statin -MRSA of nares colonization Further recommendations based on clinical course. Plan of care discussed with Dr. Mandel. Result Diagram: 12/01/18 0602 12/01/18 0602 Results 24hrs Laboratory Tests Test 12/01/18 17:10 12/01/18 21:11 12/02/18 08:49 12/02/18 12:40 Bedside Glucose 132 125 81 76 Exam/Review of Systems Vital Signs Vitals Vital Signs Date Temp Pulse Resp B/P (MAP) Pulse Ox O2 O2 Flow FiO2 Time Delivery Rate 12/02/18 4.0 15:32 12/02/18 98.1 67 17 136/62 95 15:08 (86) 12/02/18 Nasal 07:43 Cannula Intake and Output 12/01/18 12/01/18 12/02/18 1515:00 23:00 07:00 IntakeIntake Total 600 ml BalanceBalance 600 ml Exam Constitutional: alert, oriented Eyes: other (Right eye blindness) Respiratory: diminished breath sounds Cardiovascular: regular rate and rhythm Gastrointestinal: soft, non-tender Musculoskeletal: nl extremities to inspection Extremities: normal pulses, other (Right upper extremity AV fistula) Medications Medications Current Medications IV Flush (NS 3 ml) 3 ml PER PROTOCOL IV ; Start 11/18/18 at 00:00 Ondansetron HCl (Zofran Inj) 4 mg Q6H PRN IV NAUSEA AND/OR VOMITING Last administered on 12/01/18 00:10; Admin Dose 4 MG; Start 11/18/18 at 00:00 Acetaminophen (Tylenol Tab) 650 mg Q6H PRN PO PAIN LEVEL 1-3 OR FEVER Last administered on 11/19/18 11:18; Admin Dose 650 MG; Start 11/18/18 at 00:00 Heparin Sodium (Porcine) (Heparin (5000 Units/1ml)) 5,000 unit Q8 SC Last administered on 12/02/18 13:56; Admin Dose 5,000 UNIT; Start 11/18/18 at 06:00 Diagnostic Test (Pha) (Accu-Chek) 1 ea 02 XX Last administered on 11/21/18at 02:45; Admin Dose 1 EA; Start 11/19/18 at 02:00 Insulin Aspart (Novolog Insulin Pen) NOVOLOG *MILD* ALGORITHM WITH MEALS BEDTIME SC Last administered on 11/30/18 12:02; Admin Dose 1 UNIT; Start 11/18/18 at 17:55 Acetaminophen (Tylenol Tab) 325 mg Q4H PRN PO MILD PAIN(1-3)OR ELEVATED TEMP; Start 11/18/18 at 12:30 Albuterol (Proventil 0.083% (Neb)) 2.5 mg Q6 PRN NEB WHEEZING AND SOB Last administered on 11/27/18 05:05; Admin Dose 2.5 MG; Start 11/18/18 at 12:30 Amlodipine Besylate (Norvasc) 5 mg QHS PO Last administered on 12/01/18 21:13; Admin Dose 5 MG; Start 11/18/18 at 21:00 Apixaban (Eliquis) 2.5 mg BID PO ; Start 11/18/18 at 21:00; Status Hold Ascorbic Acid (Vitamin C) 500 mg DAILY PO Last administered on 12/02/18 08:47; Admin Dose 500 MG; Start 11/19/18 at 09:00 Atorvastatin Calcium (Lipitor) 20 mg QHS PO Last administered on 12/01/18 21:12; Admin Dose 20 MG; Start 11/18/18 at 21:00 Citalopram Hydrobromide (Celexa) 10 mg DAILY PO Last administered on 12/02/18 08:47; Admin Dose 10 MG; Start 11/19/18 at 09:00 Folic Acid (Folic Acid) 1 mg DAILY PO Last administered on 12/02/18 08:47; Admin Dose 1 MG; Start 11/19/18 at 09:00 Insulin Detemir (Levemir) 6 units QHS SC Last administered on 12/01/18 21:51; Admin Dose 6 UNITS; Start 11/18/18 at 21:00 Levothyroxine Sodium (Synthroid) 100 mcg BEFORE BREAKFAST PO Last administered on 12/02/18 06:08; Admin Dose 100 MCG; Start 11/19/18 at 07:00 Lorazepam (Ativan) 1 mg Q8 PRN PO ANXIETY Last administered on 12/01/18 23:51; Admin Dose 1 MG; Start 11/18/18 at 12:30 Losartan Potassium (Cozaar) 50 mg BID PO Last administered on 12/02/18 08:48; Admin Dose 50 MG; Start 11/18/18 at 21:00 Pantoprazole (Protonix Tab) 40 mg DAILY PO Last administered on 12/02/18 08:47; Admin Dose 40 MG; Start 11/19/18 at 09:00 Prednisolone Acetate (Pred-Forte 1%) 1 drop BID RIGHT EYE Last administered on 12/02/18 08:49; Admin Dose 1 DROP; Start 11/18/18 at 21:00 Tramadol HCl (Ultram) 50 mg Q6H PRN PO PAIN Last administered on 11/25/18 21:50; Admin Dose 50 MG; Start 11/18/18 at 12:30 Trazodone HCl (Desyrel) 50 mg QHS PO Last administered on 12/01/18 21:12; Admin Dose 50 MG; Start 11/18/18 at 21:00 Zinc Sulfate (Zinc Sulfate) 220 mg DAILY PO Last administered on 12/02/18 08:47; Admin Dose 220 MG; Start 11/19/18 at 09:00 Morphine Sulfate (morphine) 6 mg Q4H PRN PO SEVERE PAIN LEVEL 7-10 Last administered on 11/28/18 21:16; Admin Dose 6 MG; Start 11/19/18 at 23:00 Mupirocin (Bactroban) 1 applic BID TOP Last administered on 12/02/18 08:48; Admin Dose 1 APPLIC; Start 11/20/18 at 13:00 Famotidine (Pepcid) 20 mg DAILY PO Last administered on 12/02/18 08:47; Admin Dose 20 MG; Start 11/24/18 at 09:00 Docusate Sodium (Colace) 100 mg BID PO Last administered on 12/02/18 08:47; Admin Dose 100 MG; Start 11/24/18 at 21:00 Bisacodyl (Dulcolax) 5 mg DAILY PRN PO CONSTIPATION; Start 11/24/18 at 19:00 Metoprolol Tartrate (Lopressor) 12.5 mg BID PO Last administered on 12/02/18 08:47; Admin Dose 12.5 MG; Start 11/26/18 at 21:00 Amiodarone HCl (Cordarone) 100 mg DAILY PO Last administered on 12/02/18 08:48; Admin Dose 100 MG; Start 11/27/18 at 09:00 SIN IZAGUIRRE Dec 02, 2018 15:43
--- NOTE | 2018-12-02 17:46 | NUR ---
RN notes patient awake in bed, aox2 able to make simple needs known, all due medications given, all needs attended. kept pt clean, dry and comfortable. s/w Dr. Tequila MD aware that pt's daughter wants to talk to him. also ordered us guided thoracentesis, per radiology it will be done tomorrow. pt stable at this time, will endorse
--- NOTE | 2018-12-02 19:39 | CONS ---
Assessment/Plan Assessment/Plan Hospital Course 62 Female ESRD on Hemodialysis Had a long stay [facility] who just came back to [facility] presented with SOB & possible pneumonia. Her Last dialysis was Friday11/16/2017. Assessment/Plan - ESRD Hemodialysis dependent - DM / DM Nephropathy - Pneumonia - Hypertension - CAD / CHF - Chronic Anemia - Respiratory Insufficiency - Hyperphosphatemia PLAN: - Continuing with dialysis as planned - Trying to keep I/O negative as much as possible - PT/OT - Monitor H/H Result Diagram: 12/01/18 0602 12/01/18 0602 Results 24hrs Laboratory Tests Test 12/01/18 21:11 12/02/18 08:49 12/02/18 12:40 12/02/18 17:10 Bedside Glucose 125 81 76 102 Consultation Date/Type/Reason Admit Date/Time Nov 17, 2018 at 23:34 Initial Consult Date 11/18/18 Type of Consult NEPHROLOGY Reason for Consultation - ESRD on Hemodialysis 24 HR Interval Summary Constitutional: no complaints, improved, requiring O2 Exam/Review of Systems Vital Signs Vitals Vital Signs Date Temp Pulse Resp B/P (MAP) Pulse Ox O2 O2 Flow FiO2 Time Delivery Rate 12/02/18 69 16:17 12/02/18 4.0 15:32 12/02/18 98.1 17 136/62 95 15:08 (86) 12/02/18 Nasal 07:43 Cannula Intake and Output 12/01/18 12/01/18 12/02/18 1515:00 23:00 07:00 IntakeIntake Total 600 ml BalanceBalance 600 ml Exam Constitutional: alert, oriented Psych: no complaints Respiratory: crackles/rales Cardiovascular: regular rate and rhythm, edema, systolic murmur Gastrointestinal: soft Medications Medications Current Medications IV Flush (NS 3 ml) 3 ml PER PROTOCOL IV ; Start 11/18/18 at 00:00 Ondansetron HCl (Zofran Inj) 4 mg Q6H PRN IV NAUSEA AND/OR VOMITING Last administered on 12/01/18at 00:10; Admin Dose 4 MG; Start 11/18/18 at 00:00 Acetaminophen (Tylenol Tab) 650 mg Q6H PRN PO PAIN LEVEL 1-3 OR FEVER Last administered on 11/19/18at 11:18; Admin Dose 650 MG; Start 11/18/18 at 00:00 Heparin Sodium (Porcine) (Heparin (5000 Units/1ml)) 5,000 unit Q8 SC Last administered on 12/02/18 13:56; Admin Dose 5,000 UNIT; Start 11/18/18 at 06:00 Diagnostic Test (Pha) (Accu-Chek) 1 ea 02 XX Last administered on 11/21/18 02:45; Admin Dose 1 EA; Start 11/19/18 at 02:00 Insulin Aspart (Novolog Insulin Pen) NOVOLOG *MILD* ALGORITHM WITH MEALS BEDTIME SC Last administered on 11/30/18 12:02; Admin Dose 1 UNIT; Start 11/18/18 at 17:55 Acetaminophen (Tylenol Tab) 325 mg Q4H PRN PO MILD PAIN(1-3)OR ELEVATED TEMP; Start 11/18/18 at 12:30 Albuterol (Proventil 0.083% (Neb)) 2.5 mg Q6 PRN NEB WHEEZING AND SOB Last administered on 11/27/18 05:05; Admin Dose 2.5 MG; Start 11/18/18 at 12:30 Amlodipine Besylate (Norvasc) 5 mg QHS PO Last administered on 12/01/18 21:13; Admin Dose 5 MG; Start 11/18/18 at 21:00 Apixaban (Eliquis) 2.5 mg BID PO ; Start 11/18/18 at 21:00; Status Hold Ascorbic Acid (Vitamin C) 500 mg DAILY PO Last administered on 12/02/18 08:47; Admin Dose 500 MG; Start 11/19/18 at 09:00 Atorvastatin Calcium (Lipitor) 20 mg QHS PO Last administered on 12/01/18 21:12; Admin Dose 20 MG; Start 11/18/18 at 21:00 Citalopram Hydrobromide (Celexa) 10 mg DAILY PO Last administered on 12/02/18 08:47; Admin Dose 10 MG; Start 11/19/18 at 09:00 Folic Acid (Folic Acid) 1 mg DAILY PO Last administered on 12/02/18 08:47; Admin Dose 1 MG; Start 11/19/18 at 09:00 Insulin Detemir (Levemir) 6 units QHS SC Last administered on 12/01/18 21:51; Admin Dose 6 UNITS; Start 11/18/18 at 21:00 Levothyroxine Sodium (Synthroid) 100 mcg BEFORE BREAKFAST PO Last administered on 12/02/18 06:08; Admin Dose 100 MCG; Start 11/19/18 at 07:00 Lorazepam (Ativan) 1 mg Q8 PRN PO ANXIETY Last administered on 12/01/18 23:51; Admin Dose 1 MG; Start 11/18/18 at 12:30 Losartan Potassium (Cozaar) 50 mg BID PO Last administered on 12/02/18 08:48; Admin Dose 50 MG; Start 11/18/18 at 21:00 Pantoprazole (Protonix Tab) 40 mg DAILY PO Last administered on 12/02/18 08:47; Admin Dose 40 MG; Start 11/19/18 at 09:00 Prednisolone Acetate (Pred-Forte 1%) 1 drop BID RIGHT EYE Last administered on 12/02/18 08:49; Admin Dose 1 DROP; Start 11/18/18 at 21:00 Tramadol HCl (Ultram) 50 mg Q6H PRN PO PAIN Last administered on 11/25/18 21:50; Admin Dose 50 MG; Start 11/18/18 at 12:30 Trazodone HCl (Desyrel) 50 mg QHS PO Last administered on 12/01/18 21:12; Admin Dose 50 MG; Start 11/18/18 at 21:00 Zinc Sulfate (Zinc Sulfate) 220 mg DAILY PO Last administered on 12/02/18 08:47; Admin Dose 220 MG; Start 11/19/18 at 09:00 Morphine Sulfate (morphine) 6 mg Q4H PRN PO SEVERE PAIN LEVEL 7-10 Last administered on 11/28/18 21:16; Admin Dose 6 MG; Start 11/19/18 at 23:00 Mupirocin (Bactroban) 1 applic BID TOP Last administered on 12/02/18 08:48; Admin Dose 1 APPLIC; Start 11/20/18 at 13:00 Famotidine (Pepcid) 20 mg DAILY PO Last administered on 12/02/18 08:47; Admin Dose 20 MG; Start 11/24/18 at 09:00 Docusate Sodium (Colace) 100 mg BID PO Last administered on 12/02/18 08:47; Admin Dose 100 MG; Start 11/24/18 at 21:00 Bisacodyl (Dulcolax) 5 mg DAILY PRN PO CONSTIPATION; Start 11/24/18 at 19:00 Metoprolol Tartrate (Lopressor) 12.5 mg BID PO Last administered on 12/02/18at 08:47; Admin Dose 12.5 MG; Start 11/26/18 at 21:00 Amiodarone HCl (Cordarone) 100 mg DAILY PO Last administered on 12/02/18at 08:48; Admin Dose 100 MG; Start 11/27/18 at 09:00 Date/Time of Note Date/Time of Note DATE: 12/02/18 TIME: 19:37 ANIBAL ALMANZAR MD Dec 02, 2018 19:39
[2018-12-02] MEDS: traZODone 50 MG TAB PO SCH (21:32)
[2018-12-02] MEDS: ATORVASTATIN 20 MG TAB PO SCH (21:33)
[2018-12-02] MEDS: AMLODIPINE 5 MG TAB PO SCH (21:34)
[2018-12-02] MEDS: INSULIN DETEMIR [LEVEMIR] (100 UNITS/ML) SYG SC SCH (21:53)
[2018-12-02] MEDS: morphine LIQ (10 MG/5 ML) CUP PO PRN (22:50)
[2018-12-03] VITALS (13 sets, daily range): BP systolic 110–144; BP diastolic 55–64; PULSE 64–70; RESP 15–18
[2018-12-03] MEDS: ACCU-CHEK XX SCH (01:32)
[2018-12-03] MEDS: LEVOTHYROXINE 100 MCG TAB PO SCH (06:23)
[2018-12-03] MEDS: HEPARIN 5,000 UNIT/1 ML VIAL SC SCH ×3 (06:40→21:08)
--- NOTE | 2018-12-03 07:00 | NUR ---
EOSS: Pt resting in bed. VS stable. Denies sob. Pain managed w/one time morphine PO admin. aox2, blood glucose not covered, wnl. Pt to have US guided thoracentesis today, consent not yet signed, unable to reach daughter. Rounded on hourly, bed in locked and low position, bed alarm green, bed rail x2, turned q2hrs, wound care performed per orders, pericare as needed, call light within reach, pt reminded to call when in need of assistance. Will endorse to dayshift RN.
[2018-12-03] MEDS: INSULIN ASPART [NOVOLOG] 3 ML PEN SC SCH ×4 (07:55→20:53)
[2018-12-03] MEDS ORDERED: LIDOCAINE 1% (MPF) 5 ML VIAL ONE (09:25)
--- NOTE | 2018-12-03 09:30 | NUR ---
ULTRASOUND GUIDED RT THORACENTESIS PERFORMED BY DR TYLER,100ML FLUID ASPIRATED AND SENT TO FLOOR WITH PATIENT,NO ORDER IN COMPUTER FOR LAB
[2018-12-03] MEDS: MUPIROCIN 2% 22 GM OINT TOP SCH ×2 (10:02→20:56)
[2018-12-03] MEDS: PREDNISOLONE ACET 1% 5 ML OPH RIGHT EYE SCH ×2 (10:02→20:56)
[2018-12-03] MEDS: PANTOPRAZOLE (EC) 40 MG TAB PO SCH (10:03)
[2018-12-03] MEDS: DOCUSATE SODIUM 100 MG CAP PO SCH ×2 (10:03→20:53)
[2018-12-03] MEDS: ASCORBIC ACID 500 MG TAB PO SCH (10:03)
[2018-12-03] MEDS: FOLIC ACID 1 MG TAB PO SCH (10:03)
[2018-12-03] MEDS: ZINC SULFATE 220 MG CAP PO SCH (10:03)
[2018-12-03] MEDS: CITALOPRAM 20 MG TAB PO SCH (10:04)
[2018-12-03] MEDS: AMIODARONE 200 MG TAB PO SCH (10:04)
[2018-12-03] MEDS: FAMOTIDINE 20 MG TAB PO SCH (10:05)
[2018-12-03] MEDS: LOSARTAN 50 MG TAB PO SCH ×2 (10:05→20:54)
[2018-12-03] MEDS: METOPROLOL 25 MG TAB PO SCH ×2 (10:06→20:55)
[2018-12-03] MEDS: BALSAM PERU/CASTOR OIL 60 GM TUBE TOP SCH (10:07)
--- NOTE | 2018-12-03 12:21 | CONS ---
Assessment/Plan Assessment/Plan Hospital Course (Demo Recall) No acute events, s/p thoracentesis, looks comfortable no fevers Indwelling: right forearm AV fistula Urine cx + MDR Proteus===> s/p amikacin Physical examination: This is obese well-developed elderly woman who is in no distress. Head atraumatic normocephalic sclera nonicteric neck is supple chest rise symmetrical breath sounds diminished bases. Heart: S1-S2. Abdomen obese soft bowel sounds present. Extremities without cyanosis right forearm AV fistula patent Assessment: 1. CHF/bilateral pleural effusions 2. End-stage renal disease, on hemodialysis 3. Morbid obesity 4. Diabetes 5. Hypertension 6. MRSA colonization 7. MDR UTI==> treated Plan: Patient remained stable, status post right thoracentesis, continue Bactroban to nares, HD per renal Consultation Date/Type/Reason Admit Date/Time Nov 17, 2018 at 23:34 Initial Consult Date 11/18/18 Type of Consult id Date/Time of Note DATE: 12/03/18 TIME: 12:21 Exam/Review of Systems Exam Vitals Vital Signs Date Temp Pulse Resp B/P (MAP) Pulse Ox O2 O2 Flow FiO2 Time Delivery Rate 12/03/18 98.2 64 18 110/56 98 11:33 (74) 12/03/18 Nasal 4.0 08:30 Cannula Intake and Output 12/02/18 12/02/18 12/03/18 1515:00 23:00 07:00 IntakeIntake Total 800 ml BalanceBalance 800 ml Results Result Diagram: 12/03/18 0556 12/03/18 0556 Results 24hrs Laboratory Tests Test 12/02/18 12:40 12/02/18 17:10 12/02/18 21:31 12/03/18 05:56 Bedside Glucose 76 102 133 White Blood Count 6.7 Red Blood Count 2.94 L Hemoglobin 8.7 L Hematocrit 28.0 L Mean Corpuscular 95.2 Volume Mean Corpuscular 29.6 Hemoglobin Mean Corpuscular 31.1 L Hemoglobin Concent Red Cell 14.8 H Distribution Width Platelet Count 76 #L Mean Platelet Volume 11.1 H Immature 0.400 Granulocytes % Neutrophils % 73.0 Lymphocytes % 13.6 L Monocytes % 11.0 Eosinophils % 1.6 Basophils % 0.4 Nucleated Red Blood 0.0 Cells % Immature 0.030 Granulocytes # Neutrophils # 4.9 Lymphocytes # 0.9 Monocytes # 0.7 Eosinophils # 0.1 Basophils # 0.0 Nucleated Red Blood 0.0 Cells # Sodium Level 132 L Potassium Level 4.5 Chloride Level 92 L Carbon Dioxide Level 26 Anion Gap 14 H Blood Urea Nitrogen 34 #H Creatinine 4.50 #H Est Glomerular 10 L Filtrat Rate mL/min Glucose Level 94 Calcium Level 8.8 Test 12/03/18 08:31 12/03/18 11:34 Bedside Glucose 93 168 ALYX NAVARRO NP Dec 03, 2018 12:21
--- NOTE | 2018-12-03 15:58 | PN ---
Date/Time of Note Date/Time of Note DATE: 12/03/18 TIME: 15:53 Assessment/Plan VTE [place] [facility] [place]: 4 [place] [facility] [place] Yes Pharmacological prophylaxis: NA/contraindicated Pharm contraindication: thrombocytopenia, surgical contra Lines/Catheters IV C[facility]from [facility] Saline Lock Urinary Cath still in place: No Assessment/Plan Hospital Course Patient is status post right-sided thoracentesis with removal of 1 L of fluids, patient continues on 4 L oxygen, continue titration if patient tolerates. Butler eval Assessment/Plan -Bilateral pleural effusions, status post right-sided thoracentesis -Proteus mirabilis MDR urinary tract infection, continue amikacin. -Shortness of breath secondary to pulmonary congestion rising from diastolic dysfunction of the heart. Dr. Louise is following from pulmonology standpoint. -Hemodialysis dependent end-stage renal disease. Continue on hemodialysis. Dr. Mcdaniel is following from nephrology standpoint. -Diabetes mellitus type 2 hemoglobin A1c 6.0, continue Levemir and NovoLog per mild algorithm sliding scale. -Hypothyroidism, continue levothyroxine -Hypertension, continue patient's antihypertensive medication from shelter facility. -Hyperlipidemia, continue statin -MRSA of nares colonization Further recommendations based on clinical course. Plan of care discussed with Dr. Mandel. Result Diagram: 12/03/18 0556 12/03/18 0556 Results 24hrs Laboratory Tests Test 12/02/18 17:10 12/02/18 21:31 12/03/18 05:56 12/03/18 08:31 Bedside Glucose 102 133 93 White Blood Count 6.7 Red Blood Count 2.94 L Hemoglobin 8.7 L Hematocrit 28.0 L Mean Corpuscular 95.2 Volume Mean Corpuscular 29.6 Hemoglobin Mean Corpuscular 31.1 L Hemoglobin Concen t Red Cell 14.8 H Distribution Width Platelet Count 76 #L Mean Platelet 11.1 H Volume Immature 0.400 Granulocytes % Neutrophils % 73.0 Lymphocytes % 13.6 L Monocytes % 11.0 Eosinophils % 1.6 Basophils % 0.4 Nucleated Red 0.0 Blood Cells % Immature 0.030 Granulocytes # Neutrophils # 4.9 Lymphocytes # 0.9 Monocytes # 0.7 Eosinophils # 0.1 Basophils # 0.0 Nucleated Red 0.0 Blood Cells # Sodium Level 132 L Potassium Level 4.5 Chloride Level 92 L Carbon Dioxide 26 Level Anion Gap 14 H Blood Urea 34 #H Nitrogen Creatinine 4.50 #H Est Glomerular 10 L Filtrat Rate mL/min Glucose Level 94 Calcium Level 8.8 Test 12/03/18 09:10 12/03/18 11:34 Body Fluid Type THORACENTESIS FL UID Body Fluid 100 Glucose Body Fluid 153 Lactate Dehydroge nase Bedside Glucose 168 Exam/Review of Systems Exam Vitals Vital Signs Date Temp Pulse Resp B/P (MAP) Pulse Ox O2 O2 Flow FiO2 Time Delivery Rate 12/03/18 4.0 15:38 12/03/18 98.3 65 17 126/58 99 15:17 (80) 12/03/18 Nasal 08:30 Cannula Intake and Output 12/02/18 12/02/18 12/03/18 1515:00 23:00 07:00 IntakeIntake Total 800 ml BalanceBalance 800 ml Constitutional: alert, oriented Respiratory: diminished breath sounds Cardiovascular: regular rate and rhythm Gastrointestinal: soft, non-tender Extremities: normal pulses Results Results 24hrs Laboratory Tests Test 12/02/18 17:10 12/02/18 21:31 12/03/18 05:56 12/03/18 08:31 Bedside Glucose 102 133 93 White Blood Count 6.7 Red Blood Count 2.94 L Hemoglobin 8.7 L Hematocrit 28.0 L Mean Corpuscular 95.2 Volume Mean Corpuscular 29.6 Hemoglobin Mean Corpuscular 31.1 L Hemoglobin Concen t Red Cell 14.8 H Distribution Width Platelet Count 76 #L Mean Platelet 11.1 H Volume Immature 0.400 Granulocytes % Neutrophils % 73.0 Lymphocytes % 13.6 L Monocytes % 11.0 Eosinophils % 1.6 Basophils % 0.4 Nucleated Red 0.0 Blood Cells % Immature 0.030 Granulocytes # Neutrophils # 4.9 Lymphocytes # 0.9 Monocytes # 0.7 Eosinophils # 0.1 Basophils # 0.0 Nucleated Red 0.0 Blood Cells # Sodium Level 132 L Potassium Level 4.5 Chloride Level 92 L Carbon Dioxide 26 Level Anion Gap 14 H Blood Urea 34 #H Nitrogen Creatinine 4.50 #H Est Glomerular 10 L Filtrat Rate mL/min Glucose Level 94 Calcium Level 8.8 Test 12/03/18 09:10 12/03/18 11:34 Body Fluid Type THORACENTESIS FL UID Body Fluid 100 Glucose Body Fluid 153 Lactate Dehydroge nase Bedside Glucose 168 SIN IZAGUIRRE Dec 03, 2018 15:58
--- NOTE | 2018-12-03 19:37 | NUR ---
END FO SHIFT. CONFUSE ON AND OFF FEMALE PATIENT.VITAL SIGN WAS STABLE AND SINUS RHYTHM ON THE MONITOR. BLOOD SUGAR UNDER CONTROL AND DID RT. SIDE THORACENTESIS(OUT PUT;1L),AFTER THAT WEANING O2.NO RESPIRATORY DISTRESS WITH O2 2L VIA NASAL CANNULA(O2 SAT:97%).KEEP CHANGING POSITION Q 2HRS FOR SKIN AND CHANGED DRESSING FOR WOUND CARE.MONITORING PATIENT.
[2018-12-03] MEDS: traZODone 50 MG TAB PO SCH (20:53)
[2018-12-03] MEDS: ATORVASTATIN 20 MG TAB PO SCH (20:55)
[2018-12-03] MEDS: AMLODIPINE 5 MG TAB PO SCH (20:55)
[2018-12-03] MEDS: INSULIN DETEMIR [LEVEMIR] (100 UNITS/ML) SYG SC SCH (21:09)
[2018-12-04] VITALS (23 sets, daily range): BP systolic 94–163; BP diastolic 46–73; PULSE 61–69; RESP 16–20
[2018-12-04] MEDS: ACCU-CHEK XX SCH (02:00)
[2018-12-04] MEDS: LEVOTHYROXINE 100 MCG TAB PO SCH (05:53)
[2018-12-04] MEDS: HEPARIN 5,000 UNIT/1 ML VIAL SC SCH ×3 (06:11→22:06)
--- NOTE | 2018-12-04 06:36 | NUR ---
All needs attended and met. No significant change during the shift. Placed call light within reach. Kept safe and comfortable.
[2018-12-04] MEDS: INSULIN ASPART [NOVOLOG] 3 ML PEN SC SCH ×4 (07:55→21:00)
[2018-12-04] MEDS: ONDANSETRON 4 MG INJ IV PRN (09:13)
[2018-12-04] MEDS: FOLIC ACID 1 MG TAB PO SCH (09:16)
[2018-12-04] MEDS: FAMOTIDINE 20 MG TAB PO SCH (09:16)
[2018-12-04] MEDS: CITALOPRAM 20 MG TAB PO SCH (09:16)
[2018-12-04] MEDS: ZINC SULFATE 220 MG CAP PO SCH (09:17)
[2018-12-04] MEDS: METOPROLOL 25 MG TAB PO SCH ×2 (09:17→21:51)
[2018-12-04] MEDS: ASCORBIC ACID 500 MG TAB PO SCH (09:17)
[2018-12-04] MEDS: DOCUSATE SODIUM 100 MG CAP PO SCH ×2 (09:17→21:50)
[2018-12-04] MEDS: AMIODARONE 200 MG TAB PO SCH (09:17)
[2018-12-04] MEDS: LOSARTAN 50 MG TAB PO SCH ×2 (09:18→21:51)
[2018-12-04] MEDS: PREDNISOLONE ACET 1% 5 ML OPH RIGHT EYE SCH ×2 (09:20→21:53)
[2018-12-04] MEDS: BALSAM PERU/CASTOR OIL 60 GM TUBE TOP SCH (09:21)
[2018-12-04] MEDS: MUPIROCIN 2% 22 GM OINT TOP SCH ×2 (09:21→21:53)
--- NOTE | 2018-12-04 10:50 | NUR ---
CM NOTES: RECEIVED MSG FROM [facility] AND WAS INFORMED THAT PT HAS BEEN ACCEPTED AND INSURANCE HAS ALSO AUTHORIED THE TRANSFER. THEY ARE JUST WORKING ON A BED ASSIGNMENT AT THIS TIME. [facility] TO CALL THIS CM WHEN BED IS AVAILABLE. MARC KATHLEEN, RNCM [phone]
--- NOTE | 2018-12-04 13:57 | CONS ---
Assessment/Plan Assessment/Plan Assessment/Plan (Daily) - ESRD Hemodialysis dependent - DM / DM Nephropathy - Pneumonia - Hypertension - CAD / CHF - Chronic Anemia - Respiratory Insufficiency - Hyperphosphatemia PLAN: - Continuing with dialysis as planned - Trying to keep I/O negative as much as possible - PT/OT - Monitor H/H Consultation Date/Type/Reason Admit Date/Time Nov 17, 2018 at 23:34 Initial Consult Date 11/18/18 Type of Consult NEPHROLOGY Reason for Consultation ESRD on HD Date/Time of Note DATE: 12/04/18 TIME: 13:57 24 HR Interval Summary Constitutional: no complaints, improved Exam/Review of Systems Exam Vitals Vital Signs Date Temp Pulse Resp B/P (MAP) Pulse Ox O2 O2 Flow FiO2 Time Delivery Rate 12/04/18 64 12:46 12/04/18 98.1 17 121/73 92 11:35 (89) 12/04/18 Nasal 2.0 09:30 Cannula Intake and Output 12/03/18 12/03/18 12/04/18 1515:00 23:00 07:00 IntakeIntake Total 800 ml 500 ml BalanceBalance 800 ml 500 ml Constitutional: alert, oriented Respiratory: crackles/rales Cardiovascular: regular rate and rhythm, edema, systolic murmur Gastrointestinal: soft Results Result Diagram: 12/03/18 0556 12/03/18 0556 Results 24hrs Laboratory Tests Test 12/03/18 17:14 12/03/18 20:52 12/04/18 08:19 12/04/18 11:46 Bedside Glucose 125 170 126 160 ANIBAL ALMANZAR MD Dec 04, 2018 13:57
--- NOTE | 2018-12-04 15:18 | NUR ---
RN UPDATE CALLED [facility] FOR DIALYSIS TODAY. CONFIRMATION NUMBER [id number]
--- NOTE | 2018-12-04 18:26 | NUR ---
RN UPDATE PATIENT WILL BE TRANSFERRED TO [facility] PER [facility] TRAN. CONFIRMED BY [facility] ) FROM [facility]. PATIENT WILL GO TO ROOM 3353. NOTIFIED [facility] FOR ACCEPTANCE CONFIRMATION AND FOR FULL REPORT REGARDING THE PATIENT. CHARGE NURSE FITO STATED THE ROOM IS NOT READY YET UNTIL 8 TO 9 PM. WILL ENDORSE TO THE PILLOWCASE F[facility]DER.
[2018-12-04] MEDS: INSULIN DETEMIR [LEVEMIR] (100 UNITS/ML) SYG SC SCH (21:47)
[2018-12-04] MEDS: AMLODIPINE 5 MG TAB PO SCH (21:50)
[2018-12-04] MEDS: ATORVASTATIN 20 MG TAB PO SCH (21:50)
[2018-12-04] MEDS: traZODone 50 MG TAB PO SCH (21:50)
[2018-12-04] MEDS: LORAZEPAM 1 MG TAB PO PRN (22:11)
--- NOTE | 2018-12-04 22:59 | NUR ---
Patient left unit 2237 to [facility] with Tomasa HOUSTON and Diana from transport. Patient vitals stable. On 2L nasal cannula o2 sat above 95%. Report was given to Rima from [facility].
--- NOTE | 2018-12-15 16:50 | DS ---
DATE OF ADMISSION: 11/17/2018 DATE OF DISCHARGE: 12/04/2018 DISCHARGE DIAGNOSES: 1. End-stage renal disease on hemodialysis. 2. Diabetes. 3. Hypertension. 4. Diastolic heart failure. 5. Recurrent pleural effusion. 6. Dyslipidemia. 7. Proteus mirabilis multidrug-resistant urinary tract infection. PROCEDURE DONE: Right-sided thoracentesis. DISCHARGE MEDICATIONS: Please see transfer MAR as patient has been transferred to [facility]. REASON FOR ADMISSION: The patient is a 62-year-old female with history of hypertension, diastolic he art failure, has had recurrent acute care hospitalization including one in [place] in the past. The p atjacoby was also recently admitted at [facility]. The patient was brought into hospit al due to increasing shortness of breath and was diagnosed with acute respiratory failure and was als o diagnosed with UTI. The patient underwent frequent hemodialysis and was seen by Dr. Mcdaniel. The patient in fact also required thoracentesis to help in breathing. The patient continued to improve; however continued to require supplemental oxygen and would get short of breath upon exertion. The pa tient slowly improved and thoracentesis done recently with negative AFB or any bacterial culture. Th e patient on 12/04/2018 was breathing comfortably at rest. She did not have any chest pain and did n ot have any significant orthopnea. PHYSICAL EXAMINATION: VITAL SIGNS: Pulse 65, respirations 20, blood pressure 120/55, O2 saturation 100% on 2 liters nasal cannula. HEENT: No eye discharge or redness. Conjunctivae and lids are normal. Nose and ears are normal. NECK: No mass. CHEST: Diminished air entry at bases. CARDIOVASCULAR: S1, S2 normal. No murmur. ABDOMEN: Soft, nondistended, nontender. EXTREMITIES: No edema. NEUROLOGIC: The patient is awake, alert, fairly oriented with no gross focal deficit. CONDITION ON DISCHARGE: Stable. I will continue to follow her at [facility]. The patient was also seen by Dr. Rc sibley from infectious disease standpoint along with Dr. Reddy Mcdaniel from nephrology standpoint. Dictated By: ALEXUS GRIMM/NTS Conf#: [id number] DID#: [id number]
== END 2018-12-04 22:37 | DRG 291 ==
LOC: E/R 21:37 → TEL 23:34
PROVIDERS: ADMIT Internal Medicine; ATTEND Internal Medicine
PROC: 5A1D70Z Performance of Urinary Filtration, Intermittent, Less than 6 Hours Per Day (ICD-10-PCS; 2018-11-18)
PROC: 0W993ZZ Drainage of Right Pleural Cavity, Percutaneous Approach (ICD-10-PCS; principal; 2018-12-03)
DX: I13.2 Hypertensive heart and chronic kidney disease with heart failure and with stage 5 chronic kidney disease, or end stage renal disease (principal); J18.9 Pneumonia, unspecified organism; N18.6 End stage renal disease; I50.33 Acute on chronic diastolic (congestive) heart failure; J90 Pleural effusion, not elsewhere classified; N39.0 Urinary tract infection, site not specified; E11.22 Type 2 diabetes mellitus with diabetic chronic kidney disease; E11.21 Type 2 diabetes mellitus with diabetic nephropathy; E11.40 Type 2 diabetes mellitus with diabetic neuropathy, unspecified; E66.01 Morbid (severe) obesity due to excess calories; E83.39 Other disorders of phosphorus metabolism; E03.9 Hypothyroidism, unspecified; E78.5 Hyperlipidemia, unspecified; I48.0 Paroxysmal atrial fibrillation; I25.10 Atherosclerotic heart disease of native coronary artery without angina pectoris; D63.1 Anemia in chronic kidney disease; B96.4 Proteus (mirabilis) (morganii) as the cause of diseases classified elsewhere; Z16.24 Resistance to multiple antibiotics; Z22.322 Carrier or suspected carrier of Methicillin resistant Staphylococcus aureus; Z99.81 Dependence on supplemental oxygen; Z99.2 Dependence on renal dialysis; Z68.39 Body mass index [BMI] 39.0-39.9, adult; Z79.82 Long term (current) use of aspirin; Z79.4 Long term (current) use of insulin
CPT/HCPCS: 32555; 71045; 80048; 80053; 80202; 81001; 82042; 82945; 82962; 83036; 83605; 83615; 83735; 84100; 84484; 85025; 85610; 85730; 86706; 87040; 87070; 87081; 87086; 87102; 87116; 87340; 88104; 88305; 88313; 88341; 88342; 90935; 93005; 94640; 94664; A4310; J0278; J0692; J1644; J1815; J2270; J2405; J3370; J7050

== ENCOUNTER 2019-01-26 14:57 | Inpatient (IN) | payer BC, OTHER ==
[~2019-01-26] VITALS: Ht 152.4 cm; Wt 79.0 kg
[~2019-01-26 14:57] MED LIST changes: +ACET325T45 PO; +ALBU2.5V3 NEB; +AMIO200T4 PO; +APIX2.5T PO; +ASC500 PO; -ASCO500C7 PO; -ASPI-1046 PO; +ATOR20TA38 PO; -CALC667C PO; +CITA10TA5 PO; +CLON-379 PO; +CLOT45CR6 VAG; +DOCU-144 PO; +FOLI-49 PO; -GABA100C14 PO; -HYDR-3672 PO; -INSU100I27 SC; +LACT1CAP4 PO; +LEVEM SQ; +LEVO100T8 PO; -LISI40TA3 PO; +LOPE-123 PO; +LORA1TAB PO; +LOSA50TA14 PO; +METO25TA4 PO; +MIDO10TA PO; -MORP10CA11 PO; +MULTI PO; -NOVO3I SC; -ONDA4TAB8 PO; -PANT40TA3 PO; +PANT40TA4 PO; +POLY17PO28 PO; +PRED5DRO20 RIGHT EYE; +SIME80TA53 PO; +SODI126M NASAL; +TRAM50TA2 PO; +TRAZ-111 PO; +ZINC220C5 PO; -ZINC220T PO
[2019-01-26 15:26] VITALS: Ht 152.4 cm; Wt 79.0 kg
--- NOTE | 2019-01-26 15:51 | ERD ---
ER Documentation Chief Complaint Chief Complaint FROM [facility] OF DECUB WOUND. HPI The patient is a 63-year-old female, presenting to the ER for evaluation of her decubitus ulcer that is worsening and cause her more pain. She denies fever, chills, neck pain, chest pain, dyspnea, abdominal pain, vomiting. She is due fo r dialysis today. Past medical history: Chronic kidney disease on hemodialysis Friday, , Friday, diabetes mellitus, hypertension, history of CHF, hypothyroidism, dyslipidemia Past surgical history: Right upper extremity AV fistula, left upper extremity PICC line ROS Limited due to her condition Medications Home Meds Reported Medications Insulin Lispro (Humalog Kwikpen U-100) 100 Unit/1 Ml Insuln.pen, 0 SQ SLIDING SCALE, EA IF BS 151-200=1 UNIT,201-250=2 UNITS,251-300=3 UNITS,301-350=4 UNITS,351-400=5 UNITS, IF >400=6 UNITS AND CALL 01/26/19 Dariel Borrero/Challenge Oil (Venelex Ointment) 60 Gm Oint..gm., 1 APPLIC TOP NEEDED, #1 TUB 01/26/19 Multivit/Ca Carb/B Cmplx/Fa* (Wendi-Cathi*) 1 Tab Tab, 1 TAB PO DAILY, TAB 01/26/19 Metoclopramide* (Reglan*) 5 Mg Tablet, 5 MG PO BEFORE MEALS, TAB 01/26/19 Protein Supplement (Promod) 946 Ml Liquid, 30 ML PO DAILY 01/26/19 Lactose-Free Food (Nutritional Supplement) 237 Ml Liquid, 1 PO BID 01/26/19 Morphine Sulfate* (Morphine* Liq) 10 Mg/0.5 Ml Disp.syrin, 6 MG SL Q4H PRN for PAIN 7-10/10, ML 01/26/19 Ipratropium-Albuterol (Ipratropium-Albuterol) 0.5-3 Mg/3 Ml Ampul.neb, 3 ML INHALATION TID, #30 VIAL 01/26/19 Heparin Sod,Porcine/0.9 % NaCl (Heparin 5,000 Unit/5 ml-Ns) 5,000 Unit/5 Ml Syringe, 5000 UNIT IV Q8H 01/26/19 Ondansetron Hcl* (Zofran*) 4 Mg Tablet, 4 MG PO Q6H PRN for NAUSEA AND OR VOMITING, TAB 01/26/19 Citalopram Hydrobromide* (Citalopram Hydrobromide*) 20 Mg Tablet, 20 MG PO DAILY, #30 TAB 01/26/19 Bisacodyl* (Bisacodyl*) 5 Mg Tablet.dr, 10 MG PO Q24H PRN for CONSTIPATION, TAB 01/26/19 Diphenhydramine Hcl* (Diphenhydramine Hcl*) 25 Mg Capsule, 25 MG PO Q6 PRN for ITCHING, CAP 01/26/19 Polyethylene Glycol* (Polyethylene Glycol*) 17 Gm Powd.pack, 17 GM PO DAILY, #30 PACKET 11/18/18 Pantoprazole* (Pantoprazole*) 40 Mg Tablet.dr, 40 MG PO DAILY, TAB 11/18/18 Metoprolol Tartrate* (Lopressor*) 25 Mg Tablet, 25 MG PO BID, #60 TAB HOLD IF SBP<110 OR HR<60 11/18/18 Losartan Potassium* (Losartan Potassium*) 50 Mg Tablet, 50 MG PO BID, TAB HOLD IFSBP<110 OR HR<60 11/18/18 Levothyroxine Sodium* (Levothyroxine Sodium*) 100 Mcg Tablet, 100 MCG PO BEFORE BREAKFAST, #30 TAB 11/18/18 Insulin Detemir (Levemir) 100 Unit/1 Ml Vial, 6 UNITS SQ QHS 11/18/18 Folic Acid* (Folic Acid*) 1 Mg Tablet, 1 MG PO DAILY, TAB 11/18/18 Zinc Sulfate* (Zinc Sulfate*) 220 Mg Cap, 220 MG PO DAILY, CAP 11/18/18 Ascorbic Acid (Vitamin C) 500 Mg Tab, 500 MG PO DAILY, TAB 11/18/18 Acetaminophen* (Acetaminophen*) 325 Mg Tablet, 325 MG PO Q4H PRN for PAIN AND OR ELEVATED TEMP, #30 TAB FOR MILD PAIN -01/1711/18/18 Trazodone Hcl* (Trazodone Hcl*) 50 Mg Tablet, 50 MG PO QHS, #30 TAB 11/18/18 Tramadol HCl (Tramadol HCl) 50 Mg Tablet, 50 MG PO Q6H PRN for PAIN, #120 TAB 11/18/18 Prednisolone Acetate* (Pred Forte*) 5 Ml Susp, 1 DROP RIGHT EYE BID, EA 11/18/18 Docusate Sodium* (Colace*) 100 Mg Capsule, 100 MG PO BID, #30 CAP 11/18/18 Atorvastatin Calcium* (Atorvastatin Calcium*) 20 Mg Tablet, 20 MG PO QHS, #30 TAB 11/18/18 Amlodipine Besylate* (Norvasc*) 5 Mg Tablet, 5 MG PO QHS, TAB HOLD IF SBP<110 OR HR<60 11/18/18 Amiodarone Hcl* (Amiodarone Hcl*) 200 Mg Tablet, 200 MG PO DAILY, #30 TAB 11/18/18 Discontinued Reported Medications Multivitamins* (Theragran*) 1 Tab Tab, 1 TAB PO DAILY, TAB 11/18/18 Midodrine* (Midodrine*) 10 Mg Tablet, 10 MG PO Q8, TAB 11/18/18 Lorazepam* (Lorazepam*) 1 Mg Tablet, 1 MG PO Q8 PRN for ANXIETY, #60 TAB 11/18/18 Loperamide Hcl* (Loperamide Hcl*) 2 Mg Cap, 2 MG PO Q8, CAP 11/18/18 Simethicone (GAS RELIEF) 80 Mg Tab.chew, 80 MG PO BID, TAB.CHEW 11/18/18 Sodium Chloride (Saline Nasal Mist) 126 Ml Mist, 2 SPRAY NASAL TID, BOTTLE 11/18/18 Albuterol Sulfate* (Albuterol Sulfate* Neb) 0.083%-3 Ml Neb, 2.5 MG NEB Q6 PRN for WHEEZING AND SOB, #30 VIAL 11/18/18 Lactobacillus Acidophilus/Pect (Acidophilus-Pectin Capsule) 1 Each Capsule, 1 EACH PO DAILY, CAP 11/18/18 Clotrimazole (Clotrimazole) Vaginal Cream..g., 1 APPLIC VAG HS, EA 11/18/18 Citalopram Hydrobromide* (Citalopram Hydrobromide*) 10 Mg Tablet, 10 MG PO DAILY, #30 TAB 11/18/18 Clonidine Hcl* (Clonidine Hcl*) 0.1 Mg Tab, 0.1 MG PO Q4H PRN for ELEVATED BLOOD PRESSURE, TAB 11/18/18 Apixaban* (Eliquis*) 2.5 Mg Tablet, 2.5 MG PO BID, TAB 11/18/18 Allergies Allergies: Coded Allergies: codeine (Verified Allergy, Unknown, 01/26/19) PT TAKES MORPHINE AT HOME, HAS HAD HYDROCODONE AT [facility] IN A PREVIOUS VISIT PMhx/Soc History of Surgery: Yes (CARPAL TUNNEL , LEFT SHOULDER,HERNIA ,RENAL STONE) Anesthesia Reaction: No Hx Neurological Disorder: Yes Hx Respiratory Disorders: Yes Hx Cardiac Disorders: Yes (HTN) Hx Psychiatric Problems: No Hx Miscellaneous Medical Probl: No Hx Alcohol Use: No Hx Substance Use: No Hx Tobacco Use: No Physical Exam Vitals Vital Signs Date Temp Pulse Resp B/P (MAP) Pulse Ox O2 O2 Flow FiO2 Time Delivery Rate 01/26/19 98.3 65 20 104/55 98 Room Air 18:33 (71) 01/26/19 98.3 66 16 105/57 98 Room Air 16:00 (73) 01/26/19 Nasal 4 16:00 Cannula 01/26/19 98.1 68 17 125/58 99 15:26 (80) Physical Exam Const: No acute distress. Head: Atraumatic. Eyes: Normal Conjunctiva. ENT: Normal External Ears, Nose and Mouth. Neck: Full range of motion. No meningismus. Resp: Clear to auscultation bilaterally. Cardio: Regular rate and rhythm. Abd: Soft, non distended, normal bowel sounds, non tender. Skin: No petechiae or rashes. Back: No midline or flank tenderness. Unstageable decub ulcer with foul-smelling and necrotic tissue Ext: No cyanosis, or edema. Left heel pressure ulcer Neur: Awake and alert. Limited due to her condition Psych: Somnolent but arousable Result Diagram: 01/26/19 1617 01/26/19 1617 Results 24 hrs Laboratory Tests Test 01/26/19 16:17 01/26/19 16:24 White Blood Count 12.1 10^3/ul Red Blood Count 2.88 10^6/ul Hemoglobin 8.4 g/dl Hematocrit 29.8 % Mean Corpuscular Volume 103.5 fl Mean Corpuscular Hemoglobin 29.2 pg Mean Corpuscular Hemoglobin Concent 28.2 g/dl Red Cell Distribution Width 15.0 % Platelet Count 186 10^3/UL Mean Platelet Volume 9.6 fl Immature Granulocytes % 0.500 % Neutrophils % 80.1 % Lymphocytes % 5.7 % Monocytes % 13.4 % Eosinophils % 0.1 % Basophils % 0.2 % Nucleated Red Blood Cells % 0.0 /100WBC Immature Granulocytes # 0.060 10^3/ul Neutrophils # 9.7 10^3/ul Lymphocytes # 0.7 10^3/ul Monocytes # 1.6 10^3/ul Eosinophils # 0.0 10^3/ul Basophils # 0.0 10^3/ul Nucleated Red Blood Cells # 0.0 10^3/ul Prothrombin Time 14.7 Sec Prothrombin Time Ratio 1.1 INR International Normalized Ratio 1.14 Activated Partial Thromboplast Time 26.0 Sec Sodium Level 135 mmol/L Potassium Level 3.5 mmol/L Chloride Level 99 mmol/L Carbon Dioxide Level 28 mmol/L Anion Gap 8 Blood Urea Nitrogen 27 mg/dl Creatinine 3.09 mg/dl Est Glomerular Filtrat Rate mL/min 15 mL/min Glucose Level 153 mg/dl Calcium Level 9.0 mg/dl Total Bilirubin 0.0 mg/dl Direct Bilirubin 0.00 mg/dl Indirect Bilirubin 0.0 mg/dl Aspartate Amino Transf (AST/SGOT) 16 IU/L Alanine Aminotransferase (ALT/SGPT) 15 IU/L Alkaline Phosphatase 82 IU/L Troponin I < 0.012 ng/ml Total Protein 6.0 g/dl Albumin 2.8 g/dl Globulin 3.20 g/dl Albumin/Globulin Ratio 0.87 POC Venous Lactate 0.7 mmol/L Current Medications Medications Dose Sig/Memo Start Time Status Last (Trade) Ordered Route PRN Stop Time Admin Dose Reason Admin Vancomycin 250 ml @ ONCE ONCE 01/26/19 01/26/19 HCl 125 mls/hr IVPB 17:30 18:40 01/26/19 19:29 Piperacillin 50 ml @ ONCE ONCE 01/26/19 DC 01/26/19 Sod/ 100 mls/hr IVPB 17:30 17:58 Tazobactam 01/26/19 17:59 Sod Procedures/MDM [place] [id number] Radiology Main Line: [phone] DIAGNOSTIC IMAGING REPORT Patient: CLAIRE BATES : 1955 Age: 63 Sex: F MR #: [id number] DOS: 01/26/19 [facility]8 Ordering MD: LUCILA ARGUETA MD Location: E/R Room/Bed: PROCEDURE: XR Chest. CLINICAL INDICATION: shortness of breath TECHNIQUE: Single portable view of the chest was obtained COMPARISON: 06/08/16 FINDINGS: There is moderate cardiomegaly. There is moderate pulmonary vascular congestion. There are bilateral perihilar and lower lobe increased interstitial changes. The right-sided Perma-Cath has been removed. There are small bilateral pleural effusions. There is no pneumothorax. RPTAT: AA IMPRESSION: Moderate cardiomegaly with pulmonary vascular congestion. .Steffen Trimble MD, MD Date Time Electronically viewed and signed by .Steffen Trimble MD, MD on 01/26/2019 17: 07 .S/ CC: LUCILA ARGUETA MD [phone] EKG: Read by emergency physician Rate/Rhythm: Normal Sinus Rhythm 66 beats/min QRS, ST, T-waves: No ST elevation, first-degree AV block, rightward axis, left bundle branch block, nonspecific ST abnormality Impression: Abnormal EKG MEDICAL MAKING DECISION: The patient is a 73-year-old female, presenting with acute fluid overload, acute on chronic decubitus ulcer. She was treated with vancomycin IV and Zosyn IV for acute on chronic decub ulcer. She would require surgical evaluation for debridement The differential diagnoses considered include but are not limited to cellulitis, abscess, osteomyelitis, CHF Departure Diagnosis: Primary Impression: Fluid overload Additional Impressions: Decubitus ulcer Anemia Condition: Stable Comments I discussed the findings with the patient. I discussed the patient with madhuri Mandel at 5:30 PM who was made aware of the lab, the treatment, the patient condition. The patient is admitted to [facility] Disclaimer: Inadvertent spelling and grammatical errors are likely due to EHR/dictation software use and do not reflect on the overall quality of patient care. Also, please note that the electronic time recorded on this note does not necessarily reflect the actual time of the patient encounter. LUCILA ARGUETA MD Jan 26, 2019 15:51
[2019-01-26] MEDS ORDERED: DIPH25CA6 PO (17:03)
[2019-01-26] MEDS ORDERED: BISA5TAB6 PO (17:03)
[2019-01-26] MEDS ORDERED: CITA20TA8 PO (17:04)
[2019-01-26] MEDS ORDERED: ONDA4TAB8 PO (17:04)
[2019-01-26] MEDS ORDERED: [UNRECOGNIZED DRUG - CODE] IV (17:06)
[2019-01-26] MEDS ORDERED: IPRA3AMP29 INHALATION (17:07)
[2019-01-26] MEDS ORDERED: MORP10DI10 SL (17:08)
[2019-01-26] MEDS ORDERED: LACT237L38 PO (17:11)
[2019-01-26] MEDS ORDERED: PROT946L PO (17:12)
[2019-01-26] MEDS ORDERED: METO5TAB58 PO (17:13)
[2019-01-26] MEDS ORDERED: NEPH PO (17:13)
[2019-01-26] MEDS ORDERED: BALS60OI TOP (17:15)
[2019-01-26] MEDS ORDERED: INSU100I12 SQ (17:20)
[2019-01-26] MEDS ORDERED: VANCOMYCIN 1 GM (PMX) 250 ML IVPB ONE (17:30)
[2019-01-26] MEDS ORDERED: PIPER-TAZO 2.25 GM (PMX) 50 ML IVPB ONE (17:30)
[2019-01-26] MEDS ORDERED: BISACODYL (EC) 5 MG TAB PO PRN (20:00)
[2019-01-26] MEDS ORDERED: VANCOMYCIN IV PER PHARMACY XX SCH (20:30)
[2019-01-26] MEDS: INSULIN ASPART [NOVOLOG] 3 ML PEN SC SCH (21:00)
[2019-01-26] MEDS ORDERED: AMLODIPINE 5 MG TAB PO SCH (21:00)
[2019-01-26 23:45] VITALS: BP 122/54; PULSE 68; RESP 18
[2019-01-26] MEDS ORDERED: GLUCAGON 1 MG INJ IM PRN (23:45)
[2019-01-26] MEDS ORDERED: DEXTROSE 50% 50 ML SYRINGE IV PRN ×2 (23:45)
[2019-01-26] MEDS ORDERED: GLUCOSE GEL 15 GRAM TUBE BUCCAL PRN (23:45)
[2019-01-26] MEDS ORDERED: GLUCOSE GEL 15 GRAM TUBE PO PRN ×2 (23:45)
[2019-01-27] VITALS (26 sets, daily range): BP systolic 88–125; BP diastolic 45–63; PULSE 57–85; RESP 18–20
[2019-01-27] MEDS: DOCUSATE SODIUM 100 MG CAP PO SCH ×3 (01:03→23:02)
[2019-01-27] MEDS: ATORVASTATIN 20 MG TAB PO SCH ×2 (01:03→23:01)
[2019-01-27] MEDS: METOPROLOL 25 MG TAB PO SCH ×3 (01:06→23:01)
[2019-01-27] MEDS: HEPARIN 5,000 UNIT/1 ML VIAL SC SCH ×3 (01:18→23:20)
[2019-01-27] MEDS: PIPER-TAZO 2.25 GM (PMX) 50 ML IVPB SCH ×4 (01:29→23:02)
--- NOTE | 2019-01-27 01:31 | HP ---
DATE OF ADMISSION: 01/26/2019 CHIEF COMPLAINT: Generalized weakness, weight loss, and worsening decubitus ulcer. HISTORY OF PRESENT ILLNESS: The patient is a 63-year-old female well known to me from previous admis sions. The patient has end-stage renal disease on hemodialysis, diabetes, hypertension, diastolic he art failure, history of recurrent pleural effusion, dyslipidemia who was recently admitted at [facility] because of multidrug-resistant UTI as well as recurrent pleural effusion and wa s subsequently transferred to [facility]. The patient during that admission was als o started on hemodialysis to manage fluid. The patient was recuperating at [facility]; however, for the last few days, she apparently has been having recurrent vomiting, but there is no a bdominal pain, no reported fever or chills. The patient also has poor p.o. intake and has been losin g weight. 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 Mcdaniel. The patient was sent to [facility] ER. The patient denies chest pain or shortness of breath. There is no leg edema. No abdominal pain. As per nursing staff at [facility], the patient's decubitus ulcer had been getting worse and a richard stic surgery consult was suggested; however, due to insurance reasons, patient could not be seen by a plastic surgeon at [facility]. The patient was therefore sent to [facility] for further evaluation and management. The patient did not have any fever or chills. REVIEW OF SYSTEMS: As above. Rest of the review of systems is unremarkable. The patient also has a flat affect and has lower back pain due to sacral decubitus and bilateral buttocks area. PAST SURGICAL HISTORY: The patient is status post cholecystectomy and abdominal hernia repair, statu s post right upper extremity AV fistula, history of left upper extremity tendon repair, left elbow randall rgery, carpal tunnel surgery bilateral hand, history of right chest Perm-A-Cath which was subsequentl y removed. FAMILY HISTORY: Mother from breast cancer. SOCIAL HISTORY: No smoking or alcohol. PHYSICAL EXAMINATION: GENERAL: The patient is awake, alert, fairly oriented. VITAL SIGNS: Upon arrival in the ER, temperature 98.1, pulse 60, respiration 17, blood pressure 125/ 58, O2 saturation 99% on 4 liters nasal cannula. HEENT: The patient has right corneal opacity and is blind in the right eye for the last several year s. No eye discharge or redness. Atraumatic, normocephalic head. Nose and ears normal. Oropharynx grossly negative. NECK: Supple, no mass, no thyromegaly. CHEST: Fairly clear. CARDIOVASCULAR: S1, S2 normal. ABDOMEN: Soft, nondistended, nontender. EXTREMITIES: No edema. Pedal pulses palpable. SKIN: Without acute rash. The patient has multiple decubitus including sacral, bilateral buttocks, and left heel. NEUROLOGIC: The patient is awake, alert with generalized weakness. LABORATORY DATA: WBC 12.1, hemoglobin 8.4, platelet 186. Sodium 135, potassium 3.5, BUN 27, creatin ine 3, glucose 153. Lactic acid only 0.7, calcium 9. Liver enzymes normal. Albumin 2.8. Chest x-r ay revealed moderate cardiomegaly with pulmonary congestion. IMPRESSION: 1. Generalized weakness and recurrent vomiting. The patient's current weight is only 70 kg and back in November 2018, she was 91 kilograms, although at that time she used to have fluid overload and lizz ss diastolic heart failure and her breathing has improved after weight loss. Will call Dr. Richard ricks r GI evaluation. 2. Multiple decubitus. Wound care consult from wound care team at [facility] as well as Dr Kenya Almanza will be obtained. The patient does have mild leukocytosis and due to necrotic wound, will obtain culture as well as empirically start her on IV antibiotic. ID consult from Dr. Guevara will be obtained. 3. End-stage renal disease. I spoke with Dr. Mcdaniel for renal consult. 4. Anemia of chronic kidney disease, will start Procrit. 5. Diabetes. Will continue Levemir and sliding scale insulin. 6. Right eye blindness. The patient has been using , will continue that. 7. Hypothyroidism. Will continue Synthroid and will obtain TSH and T4. I spoke with the patient's daughter, Diana, and updated her regarding patient's condition and plan of care. Further management will depend on patient's hospital course and recommendation from multiple consultants. Meanwhile, the patient will be given nutritional supplement including vitamin C, Wendi-V ite, and zinc sulfate. Due to low marginal blood pressure, will hold off on Cozaar. Will continue N orvasc and metoprolol. Dictated By: ALEXUS GRIMM/VICTORINA Conf#: [id number] DID#: [id number]
[2019-01-27] MEDS: PREDNISOLONE ACET 1% 5 ML OPH RIGHT EYE SCH ×3 (01:32→23:23)
[2019-01-27] MEDS: INSULIN DETEMIR [LEVEMIR] (100 UNITS/ML) SYG SC SCH ×2 (01:35→23:21)
[2019-01-27] MEDS: LEVOTHYROXINE 100 MCG TAB PO SCH (06:47)
[2019-01-27] MEDS: METOCLOPRAMIDE 5 MG TAB PO SCH ×3 (06:47→17:36)
[2019-01-27] MEDS ORDERED: SOD CHLORIDE 0.9% 250 ML IV ONE (07:00)
[2019-01-27] MEDS ORDERED: traMADol 50 MG TAB PO SCH (07:00)
[2019-01-27] MEDS: INSULIN ASPART [NOVOLOG] 3 ML PEN SC SCH ×4 (08:05→21:00)
[2019-01-27] MEDS ORDERED: NON-FORMULARY/PATIENT OWN MED (Protein Supplement (Promod) 30 ML) PO SCH (09:00)
--- NOTE | 2019-01-27 10:52 | CONS ---
Assessment/Plan Assessment/Plan Hospital Course (Demo Recall) 1. Sacral and bilateral ischial wounds: -debridement -local care -frequent turning and off-loading -low air loss mattress -vitamin c -short term zinc -optimize nutrition -wound cx- sent 2. Generalized weakness: -further w/u per med team 3. ESRD -limit nephrotoxins -HD per renal -renally dose meds 4. Anemia: -monitor and transfuse as needed 5. Diabetes -glucose monitoring 6. Hypothyroidism -med mgt 7. Leukocytosis -further workup per med/id team -as above Thank you. Patient seen and examined in collaboration with Dr. Simón Almanza. Consultation Date/Type/Reason Admit Date/Time Jan 26, 2019 at 17:32 Date of Consultation: Jan 27, 2019 Type of Consult surgical Reason for Consultation wounds Requesting Provider: ALEXUS VALENCIA MD Date/Time of Note DATE: 01/27/19 TIME: 10:28 Hx of Present Illness Chaparrita Seth is a 63-year-old h pmh of end-stage renal disease on hemodialysis, diabetes, hypertension, diastolic heart failure, recurrent pleural effusion, dyslipidemia who was recently admitted at [facility] because of multidrug-resistant UTI and pleural effusion and was subsequently transferred to [facility] then eventually to a longterm facility. While at the nursing facilty, she had recurrent vomiting, with poor po intake and weight loss. She denies abdominal pain, fever, chills, chest pain or shortness of breath. She was also noted to have multiple wounds. General surgery was asked to evaluate. 12 point review of systems was performed and is negative except as stated in hpi. Past Medical History as above Home Meds Reported Medications Insulin Lispro (Humalog Kwikpen U-100) 100 Unit/1 Ml Insuln.pen, 0 SQ SLIDING S MARTY, EA IF BS 151-200=1 UNIT,201-250=2 UNITS,251-300=3 UNITS,301-350=4 UNITS,351-400=5 UNITS, IF >400=6 UNITS AND CALL 01/26/19 Dariel Hawi/[place] Oil (Venelex Ointment) 60 Gm Oint..gm., 1 APPLIC TOP NEEDED, #1 TUB 01/26/19 Multivit/Ca Carb/B Cmplx/Fa* (Wendi-Cathi*) 1 Tab Tab, 1 TAB PO DAILY, TAB 01/26/19 Metoclopramide* (Reglan*) 5 Mg Tablet, 5 MG PO BEFORE MEALS, TAB 01/26/19 Protein Supplement (Promod) 946 Ml Liquid, 30 ML PO DAILY 01/26/19 Lactose-Free Food (Nutritional Supplement) 237 Ml Liquid, 1 PO BID 01/26/19 Morphine Sulfate* (Morphine* Liq) 10 Mg/0.5 Ml Disp.syrin, 6 MG SL Q4H PRN for PAIN 7-08/19, ML 01/26/19 Ipratropium-Albuterol (Ipratropium-Albuterol) 0.5-3 Mg/3 Ml Ampul.neb, 3 ML INHALATION TID, #30 VIAL 01/26/19 Heparin Sod,Porcine/0.9 % NaCl (Heparin 5,000 Unit/5 ml-Ns) 5,000 Unit/5 Ml Syringe, 5000 UNIT IV Q8H 01/26/19 Ondansetron Hcl* (Zofran*) 4 Mg Tablet, 4 MG PO Q6H PRN for NAUSEA AND OR VOMITING, TAB 01/26/19 Citalopram Hydrobromide* (Citalopram Hydrobromide*) 20 Mg Tablet, 20 MG PO DAILY, #30 TAB 01/26/19 Bisacodyl* (Bisacodyl*) 5 Mg Tablet.dr, 10 MG PO Q24H PRN for CONSTIPATION, TAB 01/26/19 Diphenhydramine Hcl* (Diphenhydramine Hcl*) 25 Mg Capsule, 25 MG PO Q6 PRN for ITCHING, CAP 01/26/19 Polyethylene Glycol* (Polyethylene Glycol*) 17 Gm Powd.pack, 17 GM PO DAILY, #30 PACKET 11/18/18 Pantoprazole* (Pantoprazole*) 40 Mg Tablet.dr, 40 MG PO DAILY, TAB 11/18/18 Metoprolol Tartrate* (Lopressor*) 25 Mg Tablet, 25 MG PO BID, #60 TAB HOLD IF SBP<110 OR HR<60 11/18/18 Losartan Potassium* (Losartan Potassium*) 50 Mg Tablet, 50 MG PO BID, TAB HOLD IFSBP<110 OR HR<60 11/18/18 Levothyroxine Sodium* (Levothyroxine Sodium*) 100 Mcg Tablet, 100 MCG PO BEFORE BREAKFAST, #30 TAB 11/18/18 Insulin Detemir (Levemir) 100 Unit/1 Ml Vial, 6 UNITS SQ QHS 11/18/18 Folic Acid* (Folic Acid*) 1 Mg Tablet, 1 MG PO DAILY, TAB 11/18/18 Zinc Sulfate* (Zinc Sulfate*) 220 Mg Cap, 220 MG PO DAILY, CAP 11/18/18 Ascorbic Acid (Vitamin C) 500 Mg Tab, 500 MG PO DAILY, TAB 11/18/18 Acetaminophen* (Acetaminophen*) 325 Mg Tablet, 325 MG PO Q4H PRN for PAIN AND OR ELEVATED TEMP, #30 TAB FOR MILD PAIN -01/1711/18/18 Trazodone Hcl* (Trazodone Hcl*) 50 Mg Tablet, 50 MG PO QHS, #30 TAB 11/18/18 Tramadol HCl (Tramadol HCl) 50 Mg Tablet, 50 MG PO Q6H PRN for PAIN, #120 TAB 11/18/18 Prednisolone Acetate* (Pred Forte*) 5 Ml Susp, 1 DROP RIGHT EYE BID, EA 11/18/18 Docusate Sodium* (Colace*) 100 Mg Capsule, 100 MG PO BID, #30 CAP 11/18/18 Atorvastatin Calcium* (Atorvastatin Calcium*) 20 Mg Tablet, 20 MG PO QHS, #30 TAB 11/18/18 Amlodipine Besylate* (Norvasc*) 5 Mg Tablet, 5 MG PO QHS, TAB HOLD IF SBP<110 OR HR<60 11/18/18 Amiodarone Hcl* (Amiodarone Hcl*) 200 Mg Tablet, 200 MG PO DAILY, #30 TAB 11/18/18 Discontinued Reported Medications Multivitamins* (Theragran*) 1 Tab Tab, 1 TAB PO DAILY, TAB 11/18/18 Midodrine* (Midodrine*) 10 Mg Tablet, 10 MG PO Q8, TAB 11/18/18 Lorazepam* (Lorazepam*) 1 Mg Tablet, 1 MG PO Q8 PRN for ANXIETY, #60 TAB 11/18/18 Loperamide Hcl* (Loperamide Hcl*) 2 Mg Cap, 2 MG PO Q8, CAP 11/18/18 Simethicone (GAS RELIEF) 80 Mg Tab.chew, 80 MG PO BID, TAB.CHEW 11/18/18 Sodium Chloride (Saline Nasal Mist) 126 Ml Mist, 2 SPRAY NASAL TID, BOTTLE 11/18/18 Albuterol Sulfate* (Albuterol Sulfate* Neb) 0.083%-3 Ml Neb, 2.5 MG NEB Q6 PRN for WHEEZING AND SOB, #30 VIAL 11/18/18 Lactobacillus Acidophilus/Pect (Acidophilus-Pectin Capsule) 1 Each Capsule, 1 EACH PO DAILY, CAP 11/18/18 Clotrimazole (Clotrimazole) Vaginal Cream..g., 1 APPLIC VAG HS, EA 11/18/18 Citalopram Hydrobromide* (Citalopram Hydrobromide*) 10 Mg Tablet, 10 MG PO DAILY, #30 TAB 11/18/18 Clonidine Hcl* (Clonidine Hcl*) 0.1 Mg Tab, 0.1 MG PO Q4H PRN for ELEVATED BLOOD PRESSURE, TAB 11/18/18 Apixaban* (Eliquis*) 2.5 Mg Tablet, 2.5 MG PO BID, TAB 11/18/18 Medications Current Medications Amiodarone HCl (Cordarone) 200 mg DAILY PO ; Start 01/27/19 at 09:00 Ascorbic Acid (Vitamin C) 500 mg DAILY PO ; Start 01/27/19 at 09:00 Atorvastatin Calcium (Lipitor) 20 mg QHS PO Last administered on 01/27/19at 01:03; Admin Dose 20 MG; Start 01/26/19 at 21:00 Bisacodyl (Dulcolax) 10 mg Q24H PRN PO CONSTIPATION; Start 01/26/19 at 20:00 Citalopram Hydrobromide (Celexa) 20 mg DAILY PO ; Start 01/27/19 at 09:00 Docusate Sodium (Colace) 100 mg BID PO Last administered on 01/27/19at 01:03; Admin Dose 100 MG; Start 01/26/19 at 21:00 Folic Acid (Folic Acid) 1 mg DAILY PO ; Start 01/27/19 at 09:00 Insulin Detemir (Levemir) 6 units QHS SC Last administered on 01/27/19at 01:35; Admin Dose 6 UNITS; Start 01/26/19 at 21:00 Levothyroxine Sodium (Synthroid) 100 mcg BEFORE BREAKFAST PO Last administered on 01/27/19at 06:47; Admin Dose 100 MCG; Start 01/27/19 at 07:00 Metoclopramide HCl (Reglan) 5 mg BEFORE MEALS PO Last administered on 01/27/19at 06:47; Admin Dose 5 MG; Start 01/27/19 at 07:30 Metoprolol Tartrate (Lopressor) 25 mg BID PO Last administered on 01/27/19at 01:06; Admin Dose 25 MG; Start 01/26/19 at 21:00 Multivit/Ca Carb/ B Cmplx/FA/Prenat (Wendi-Ctahi) 1 tab DAILY PO ; Start 01/27/19 at 09:00 Ondansetron HCl (Zofran Tab) 4 mg Q6H PRN PO NAUSEA AND/OR VOMITING; Start 01/26/19 at 20:00 Pantoprazole (Protonix Tab) 40 mg DAILY PO ; Start 01/27/19 at 09:00 Polyethylene Glycol (Miralax) 17 gm DAILY PO ; Start 01/27/19 at 09:00 Prednisolone Acetate (Pred-Forte 1%) 1 drop BID RIGHT EYE Last administered on 01/27/19at 01:32; Admin Dose 1 DROP; Start 01/26/19 at 21:00 Zinc Sulfate (Zinc Sulfate) 220 mg DAILY PO ; Start 01/27/19 at 09:00 Vancomycin HCl (Vanco Iv Per Pharmacy) VANCOMYCIN PER PHARMACY PER PROTOCOL XX ; Start 01/26/19 at 20:30 Piperacillin Sod/ Tazobactam Sod 50 ml @ 100 mls/hr Q8 IVPB Last administered on 01/27/19at 01:29; Admin Dose 100 MLS/HR; Start 01/26/19 at 22:00 Epoetin Indra (Epogen (Esrd)) 4,000 units TuThSa@17 SC ; Start 01/28/19 at 17:00 Insulin Aspart (Novolog Insulin Pen) NOVOLOG *MODERATE* ALGORITHM WITH MEALS BEDTIME SC ; Start 01/26/19 at 21:00 Heparin Sodium (Porcine) (Heparin (5000 Units/1ml)) 5,000 unit BID SC Last administered on 01/27/19at 01:18; Admin Dose 5,000 UNIT; Start 01/26/19 at 21:00 Morphine Sulfate (morphine) 2 mg Q4H PRN IV SEVERE PAIN LEVEL 7-10; Start 01/26/19 at 20:30 Miscellaneous Information 1 ea NOTE XX ; Start 01/26/19 at 23:45 Glucose (Glutose) 15 gm Q15M PRN PO DECREASED GLUCOSE; Start 01/26/19 at 23:45 Glucose (Glutose) 22.5 gm Q15M PRN PO DECREASED GLUCOSE; Start 01/26/19 at 23:45 Dextrose (D50w Syringe) 25 ml Q15M PRN IV DECREASED GLUCOSE; Start 01/26/19 at 23:45 Dextrose (D50w Syringe) 50 ml Q15M PRN IV DECREASED GLUCOSE; Start 01/26/19 at 23:45 Glucagon (Glucagen) 1 mg Q15M PRN IM DECREASED GLUCOSE; Start 01/26/19 at 23:45 Glucose (Glutose) 15 gm Q15M PRN BUCCAL DECREASED GLUCOSE; Start 01/26/19 at 23:45 Alteplase, Recombinant (Cathflo (Activase)) 2 mg MAY REPEAT X1 PRN CATHETER IF CATHETER REMAINS OCCULUDED; Start 01/27/19 at 07:00 Tramadol HCl (Ultram) 50 mg Q6H PO ; Start 01/27/19 at 08:00 Allergies: Coded Allergies: codeine (Verified Allergy, Unknown, 01/26/19) PT TAKES MORPHINE AT HOME, HAS HAD HYDROCODONE AT [facility] IN A PREVIOUS VISIT Past Surgical History as above Past Surgical Hx: other Family History Significant Family History: no pertinent family hx Social History Alcohol Use: none Smoking Status: Unknown if ever smoked Exam/Review of Systems Exam Vitals Vital Signs Date Temp Pulse Resp B/P (MAP) Pulse Ox O2 O2 Flow FiO2 Time Delivery Rate 01/27/19 66 09:45 01/27/19 18 98/55 (69) 98 Nasal 2.0 08:00 Cannula 01/27/19 98.7 07:27 Intake and Output 01/26/19 01/26/19 01/27/19 1515:00 23:00 07:00 IntakeIntake Total 450 ml BalanceBalance 450 ml Constitutional: alert, oriented, obese Psych: anxiety Head: normocephalic, atraumatic Eyes: nl conjunctiva, EOMI, nl lids, nl sclera ENMT: nl external ears & nose, nl lips & teeth, mucosa pink and moist Neck: supple, non-tender; No jvd Respiratory: normal air movement; No congested cough, No labored breathing Cardiovascular: regular rate and rhythm, nl pulses; No edema Gastrointestinal: soft, non-tender, distended Genitourinary - Female: nl external genitalia Musculoskeletal: nl extremities to inspection, nl gait and stance Extremities: normal pulses Neurological: nl mental status, nl speech, nl strength Skin: other (sacral: malodorous, necrotic tissue; right ischium: slough and necrotic tissue, malodorous; left ischium: unstageable); No rash or lesions Results Result Diagram: 01/26/19 1617 01/26/19 1617 Results 24hrs Laboratory Tests Test 01/26/19 16:17 01/26/19 16:24 01/26/19 22:18 01/26/19 22:50 White Blood Count 12.1 #H Red Blood Count 2.88 L Hemoglobin 8.4 L Hematocrit 29.8 L Mean Corpuscular 103.5 H Volume Mean Corpuscular 29.2 Hemoglobin Mean Corpuscular 28.2 L Hemoglobin Concent Red Cell 15.0 H Distribution Width Platelet Count 186 Mean Platelet Volume 9.6 Immature 0.500 H Granulocytes % Neutrophils % 80.1 H Lymphocytes % 5.7 L Monocytes % 13.4 H Eosinophils % 0.1 Basophils % 0.2 Nucleated Red Blood 0.0 Cells % Immature 0.060 H Granulocytes # Neutrophils # 9.7 H Lymphocytes # 0.7 L Monocytes # 1.6 H Eosinophils # 0.0 Basophils # 0.0 Nucleated Red Blood 0.0 Cells # Prothrombin Time 14.7 Prothrombin Time 1.1 Ratio INR International 1.14 Normalized Ratio Activated 26.0 Partial Thromboplast Time Sodium Level 135 Potassium Level 3.5 Chloride Level 99 Carbon Dioxide Level 28 Anion Gap 8 Blood Urea Nitrogen 27 H Creatinine 3.09 H Est Glomerular 15 L Filtrat Rate mL/min Glucose Level 153 Calcium Level 9.0 Total Bilirubin 0.0 L Direct Bilirubin 0.00 Indirect Bilirubin 0.0 Aspartate Amino 16 Transf (AST/SGOT) Alanine 15 Aminotransferase (AL T/SGPT) Alkaline Phosphatase 82 Troponin I < 0.012 Total Protein 6.0 L Albumin 2.8 L Globulin 3.20 Albumin/Globulin 0.87 Ratio POC Venous Lactate 0.7 Bedside Glucose 147 Lactic Acid Level 0.7 Test 01/27/19 01:32 01/27/19 05:12 01/27/19 05:15 01/27/19 08:05 Bedside Glucose 168 110 Hepatitis B Surface NEGATIVE Antigen Triglycerides Level 73 Cholesterol Level 101 LDL Cholesterol, 29 Calculated HDL Cholesterol 57 Cholesterol/HDL 1.7 Ratio Thyroid Stimulating 1.220 Hormone (TSH) Free Thyroxine 1.64 Medications Medication Current Medications Amiodarone HCl (Cordarone) 200 mg DAILY PO ; Start 01/27/19 at 09:00 Ascorbic Acid (Vitamin C) 500 mg DAILY PO ; Start 01/27/19 at 09:00 Atorvastatin Calcium (Lipitor) 20 mg QHS PO Last administered on 01/27/19at 01:03; Admin Dose 20 MG; Start 01/26/19 at 21:00 Bisacodyl (Dulcolax) 10 mg Q24H PRN PO CONSTIPATION; Start 01/26/19 at 20:00 Citalopram Hydrobromide (Celexa) 20 mg DAILY PO ; Start 01/27/19 at 09:00 Docusate Sodium (Colace) 100 mg BID PO Last administered on 01/27/19at 01:03; Admin Dose 100 MG; Start 01/26/19 at 21:00 Folic Acid (Folic Acid) 1 mg DAILY PO ; Start 01/27/19 at 09:00 Insulin Detemir (Levemir) 6 units QHS SC Last administered on 01/27/19at 01:35; Admin Dose 6 UNITS; Start 01/26/19 at 21:00 Levothyroxine Sodium (Synthroid) 100 mcg BEFORE BREAKFAST PO Last administered on 01/27/19at 06:47; Admin Dose 100 MCG; Start 01/27/19 at 07:00 Metoclopramide HCl (Reglan) 5 mg BEFORE MEALS PO Last administered on 01/27/19at 06:47; Admin Dose 5 MG; Start 01/27/19 at 07:30 Metoprolol Tartrate (Lopressor) 25 mg BID PO Last administered on 01/27/19at 01:06; Admin Dose 25 MG; Start 01/26/19 at 21:00 Multivit/Ca Carb/ B Cmplx/FA/Prenat (Wendi-Cathi) 1 tab DAILY PO ; Start 01/27/19 at 09:00 Ondansetron HCl (Zofran Tab) 4 mg Q6H PRN PO NAUSEA AND/OR VOMITING; Start 01/26/19 at 20:00 Pantoprazole (Protonix Tab) 40 mg DAILY PO ; Start 01/27/19 at 09:00 Polyethylene Glycol (Miralax) 17 gm DAILY PO ; Start 01/27/19 at 09:00 Prednisolone Acetate (Pred-Forte 1%) 1 drop BID RIGHT EYE Last administered on 01/27/19at 01:32; Admin Dose 1 DROP; Start 01/26/19 at 21:00 Zinc Sulfate (Zinc Sulfate) 220 mg DAILY PO ; Start 01/27/19 at 09:00 Vancomycin HCl (Vanco Iv Per Pharmacy) VANCOMYCIN PER PHARMACY PER PROTOCOL XX ; Start 01/26/19 at 20:30 Piperacillin Sod/ Tazobactam Sod 50 ml @ 100 mls/hr Q8 IVPB Last administered on 01/27/19at 01:29; Admin Dose 100 MLS/HR; Start 01/26/19 at 22:00 Epoetin Indra (Epogen (Esrd)) 4,000 units TuThSa@17 SC ; Start 01/28/19 at 17:00 Insulin Aspart (Novolog Insulin Pen) NOVOLOG *MODERATE* ALGORITHM WITH MEALS BEDTIME SC ; Start 01/26/19 at 21:00 Heparin Sodium (Porcine) (Heparin (5000 Units/1ml)) 5,000 unit BID SC Last administered on 01/27/19at 01:18; Admin Dose 5,000 UNIT; Start 01/26/19 at 21:00 Morphine Sulfate (morphine) 2 mg Q4H PRN IV SEVERE PAIN LEVEL 7-10; Start 01/26/19 at 20:30 Miscellaneous Information 1 ea NOTE XX ; Start 01/26/19 at 23:45 Glucose (Glutose) 15 gm Q15M PRN PO DECREASED GLUCOSE; Start 01/26/19 at 23:45 Glucose (Glutose) 22.5 gm Q15M PRN PO DECREASED GLUCOSE; Start 01/26/19 at 23:45 Dextrose (D50w Syringe) 25 ml Q15M PRN IV DECREASED GLUCOSE; Start 01/26/19 at 23:45 Dextrose (D50w Syringe) 50 ml Q15M PRN IV DECREASED GLUCOSE; Start 01/26/19 at 23:45 Glucagon (Glucagen) 1 mg Q15M PRN IM DECREASED GLUCOSE; Start 01/26/19 at 23:45 Glucose (Glutose) 15 gm Q15M PRN BUCCAL DECREASED GLUCOSE; Start 01/26/19 at 23:45 Alteplase, Recombinant (Cathflo (Activase)) 2 mg MAY REPEAT X1 PRN CATHETER IF CATHETER REMAINS OCCULUDED; Start 01/27/19 at 07:00 Tramadol HCl (Ultram) 50 mg Q6H PO ; Start 01/27/19 at 08:00 ARSLAN COATES NP Jan 27, 2019 10:41
[2019-01-27] MEDS: POLYETHYLENE GLYCOL 17 GM PACKET PO SCH (12:04)
[2019-01-27] MEDS: ASCORBIC ACID 500 MG TAB PO SCH (12:05)
[2019-01-27] MEDS: FOLIC ACID 1 MG TAB PO SCH (12:05)
[2019-01-27] MEDS: ZINC SULFATE 220 MG CAP PO SCH (12:05)
[2019-01-27] MEDS: PANTOPRAZOLE (EC) 40 MG TAB PO SCH (12:05)
[2019-01-27] MEDS: MULTIVIT/CA CARB/B CMPLX/FA TAB PO SCH (12:05)
[2019-01-27] MEDS: AMIODARONE 200 MG TAB PO SCH (12:06)
[2019-01-27] MEDS: CITALOPRAM 20 MG TAB PO SCH (12:06)
[2019-01-27] MEDS: traMADol 50 MG TAB PO SCH ×4 (12:32→23:01)
[2019-01-27] MEDS ORDERED: VANCOMYCIN 500 MG (PMX) 100 ML IVPB ONE (14:00)
--- NOTE | 2019-01-27 15:28 | PN ---
Date/Time of Note Date/Time of Note DATE: 01/27/19 TIME: 15:26 Assessment/Plan VTE Prophylaxis Risk score (from Ns)>0 risk: 6 SCD applied (from Ns): No SCD contraindicated: other Pharmacological prophylaxis: other Pharm contraindication: other Lines/Catheters IV Catheter Type (from Nrs): PICC Line Central line still needed: Yes Urinary Cath still in place: No Assessment/Plan Assessment/Plan 1. Generalized weakness and recurrent vomiting. The patient's current weight is only 70 kg and back in November 2018, she was 91 kilograms, although at that time she used to have fluid overload and gross diastolic heart failure and her breathing has improved after weight loss. Will call Dr. Ramos for GI evaluation. 2. Multiple decubitus. Wound care consult from wound care team at [facility] as well as Dr. Almanza will be obtained. The patient does have mild leukocytosis and due to necrotic wound, will obtain culture as well as empirically start her on IV antibiotic. ID consult from Dr. Guevara will be obtained. 3. End-stage renal disease. I spoke with Dr. Mcdaniel for renal consult. 4. Anemia of chronic kidney disease, will start Procrit. 5. Diabetes. Will continue Levemir and sliding scale insulin. 6. Right eye blindness. The patient has been using , will continue that. 7. Hypothyroidism. Will continue Synthroid and will obtain TSH and T4. Result Diagram: 01/26/19 1617 01/26/19 1617 Results 24hrs Laboratory Tests Test 01/26/19 16:17 01/26/19 16:24 01/26/19 22:18 01/26/19 22:50 White Blood Count 12.1 #H Red Blood Count 2.88 L Hemoglobin 8.4 L Hematocrit 29.8 L Mean Corpuscular 103.5 H Volume Mean Corpuscular 29.2 Hemoglobin Mean Corpuscular 28.2 L Hemoglobin Concent Red Cell 15.0 H Distribution Width Platelet Count 186 Mean Platelet Volume 9.6 Immature 0.500 H Granulocytes % Neutrophils % 80.1 H Lymphocytes % 5.7 L Monocytes % 13.4 H Eosinophils % 0.1 Basophils % 0.2 Nucleated Red Blood 0.0 Cells % Immature 0.060 H Granulocytes # Neutrophils # 9.7 H Lymphocytes # 0.7 L Monocytes # 1.6 H Eosinophils # 0.0 Basophils # 0.0 Nucleated Red Blood 0.0 Cells # Prothrombin Time 14.7 Prothrombin Time 1.1 Ratio INR International 1.14 Normalized Ratio Activated 26.0 Partial Thromboplast Time Sodium Level 135 Potassium Level 3.5 Chloride Level 99 Carbon Dioxide Level 28 Anion Gap 8 Blood Urea Nitrogen 27 H Creatinine 3.09 H Est Glomerular 15 L Filtrat Rate mL/min Glucose Level 153 Calcium Level 9.0 Total Bilirubin 0.0 L Direct Bilirubin 0.00 Indirect Bilirubin 0.0 Aspartate Amino 16 Transf (AST/SGOT) Alanine 15 Aminotransferase (AL T/SGPT) Alkaline Phosphatase 82 Troponin I < 0.012 Total Protein 6.0 L Albumin 2.8 L Globulin 3.20 Albumin/Globulin 0.87 Ratio POC Venous Lactate 0.7 Bedside Glucose 147 Lactic Acid Level 0.7 Test 01/27/19 01:32 01/27/19 05:12 01/27/19 05:15 01/27/19 08:05 Bedside Glucose 168 110 Hepatitis B Surface NEGATIVE Antigen Triglycerides Level 73 Cholesterol Level 101 LDL Cholesterol, 29 Calculated HDL Cholesterol 57 Cholesterol/HDL 1.7 Ratio Thyroid Stimulating 1.220 Hormone (TSH) Free Thyroxine 1.64 Test 01/27/19 12:12 Bedside Glucose 91 Subjective 24 Hr Interval Summary Constitutional: requiring O2, other (general weakness) Eyes: no complaints ENT: no complaints Respiratory: no complaints Cardiovascular: no complaints Gastrointestinal: no complaints Genitourinary: no complaints Musculoskeletal: no complaints Exam/Review of Systems Exam Vitals Vital Signs Date Temp Pulse Resp B/P (MAP) Pulse Ox O2 O2 Flow FiO2 Time Delivery Rate 01/27/19 99.2 72 20 123/58 96 Nasal 15:04 (79) Cannula 01/27/19 2.0 08:00 Intake and Output 01/26/19 01/26/19 01/27/19 1515:00 23:00 07:00 IntakeIntake Total 450 ml BalanceBalance 450 ml Constitutional: alert, well developed Psych: nl mood/affect Eyes: nl lids, other (blindness) Neck: non-tender Respiratory: clear to auscultation Cardiovascular: nl pulses, other (S1S2) Gastrointestinal: soft Musculoskeletal: nl extremities to inspection Extremities: normal pulses Neurological: nl speech, other (alert/reponsive) Lymph: nontender Results Results 24hrs Laboratory Tests Test 01/26/19 16:17 01/26/19 16:24 01/26/19 22:18 01/26/19 22:50 White Blood Count 12.1 #H Red Blood Count 2.88 L Hemoglobin 8.4 L Hematocrit 29.8 L Mean Corpuscular 103.5 H Volume Mean Corpuscular 29.2 Hemoglobin Mean Corpuscular 28.2 L Hemoglobin Concent Red Cell 15.0 H Distribution Width Platelet Count 186 Mean Platelet Volume 9.6 Immature 0.500 H Granulocytes % Neutrophils % 80.1 H Lymphocytes % 5.7 L Monocytes % 13.4 H Eosinophils % 0.1 Basophils % 0.2 Nucleated Red Blood 0.0 Cells % Immature 0.060 H Granulocytes # Neutrophils # 9.7 H Lymphocytes # 0.7 L Monocytes # 1.6 H Eosinophils # 0.0 Basophils # 0.0 Nucleated Red Blood 0.0 Cells # Prothrombin Time 14.7 Prothrombin Time 1.1 Ratio INR International 1.14 Normalized Ratio Activated 26.0 Partial Thromboplast Time Sodium Level 135 Potassium Level 3.5 Chloride Level 99 Carbon Dioxide Level 28 Anion Gap 8 Blood Urea Nitrogen 27 H Creatinine 3.09 H Est Glomerular 15 L Filtrat Rate mL/min Glucose Level 153 Calcium Level 9.0 Total Bilirubin 0.0 L Direct Bilirubin 0.00 Indirect Bilirubin 0.0 Aspartate Amino 16 Transf (AST/SGOT) Alanine 15 Aminotransferase (AL T/SGPT) Alkaline Phosphatase 82 Troponin I < 0.012 Total Protein 6.0 L Albumin 2.8 L Globulin 3.20 Albumin/Globulin 0.87 Ratio POC Venous Lactate 0.7 Bedside Glucose 147 Lactic Acid Level 0.7 Test 01/27/19 01:32 01/27/19 05:12 01/27/19 05:15 01/27/19 08:05 Bedside Glucose 168 110 Hepatitis B Surface NEGATIVE Antigen Triglycerides Level 73 Cholesterol Level 101 LDL Cholesterol, 29 Calculated HDL Cholesterol 57 Cholesterol/HDL 1.7 Ratio Thyroid Stimulating 1.220 Hormone (TSH) Free Thyroxine 1.64 Test 01/27/19 12:12 Bedside Glucose 91 Medications Medication Current Medications Amiodarone HCl (Cordarone) 200 mg DAILY PO Last administered on 01/27/19at 12:06; Admin Dose 200 MG; Start 01/27/19 at 09:00 Ascorbic Acid (Vitamin C) 500 mg DAILY PO Last administered on 01/27/19 12:05; Admin Dose 500 MG; Start 01/27/19 at 09:00 Atorvastatin Calcium (Lipitor) 20 mg QHS PO Last administered on 01/27/19 01:03; Admin Dose 20 MG; Start 01/26/19 at 21:00 Bisacodyl (Dulcolax) 10 mg Q24H PRN PO CONSTIPATION; Start 01/26/19 at 20:00 Citalopram Hydrobromide (Celexa) 20 mg DAILY PO Last administered on 01/27/19 12:06; Admin Dose 20 MG; Start 01/27/19 at 09:00 Docusate Sodium (Colace) 100 mg BID PO Last administered on 01/27/19 12:05; Admin Dose 100 MG; Start 01/26/19 at 21:00 Folic Acid (Folic Acid) 1 mg DAILY PO Last administered on 01/27/19 12:05; Admin Dose 1 MG; Start 01/27/19 at 09:00 Insulin Detemir (Levemir) 6 units QHS SC Last administered on 01/27/19 01:35; Admin Dose 6 UNITS; Start 01/26/19 at 21:00 Levothyroxine Sodium (Synthroid) 100 mcg BEFORE BREAKFAST PO Last administered on 01/27/19 06:47; Admin Dose 100 MCG; Start 01/27/19 at 07:00 Metoclopramide HCl (Reglan) 5 mg BEFORE MEALS PO Last administered on 01/27/19 12:32; Admin Dose 5 MG; Start 01/27/19 at 07:30 Metoprolol Tartrate (Lopressor) 25 mg BID PO Last administered on 01/27/19 01:06; Admin Dose 25 MG; Start 01/26/19 at 21:00 Multivit/Ca Carb/ B Cmplx/FA/Prenat (Wendi-Cathi) 1 tab DAILY PO Last administered on 01/27/19 12:05; Admin Dose 1 TAB; Start 01/27/19 at 09:00 Ondansetron HCl (Zofran Tab) 4 mg Q6H PRN PO NAUSEA AND/OR VOMITING; Start 01/26/19 at 20:00 Pantoprazole (Protonix Tab) 40 mg DAILY PO Last administered on 01/27/19 12:05; Admin Dose 40 MG; Start 01/27/19 at 09:00 Polyethylene Glycol (Miralax) 17 gm DAILY PO Last administered on 01/27/19at 12:04; Admin Dose 17 GM; Start 01/27/19 at 09:00 Prednisolone Acetate (Pred-Forte 1%) 1 drop BID RIGHT EYE Last administered on 01/27/19at 12:07; Admin Dose 1 DROP; Start 01/26/19 at 21:00 Zinc Sulfate (Zinc Sulfate) 220 mg DAILY PO Last administered on 01/27/19at 12:05; Admin Dose 220 MG; Start 01/27/19 at 09:00 Vancomycin HCl (Vanco Iv Per Pharmacy) VANCOMYCIN PER PHARMACY PER PROTOCOL XX ; Start 01/26/19 at 20:30 Piperacillin Sod/ Tazobactam Sod 50 ml @ 100 mls/hr Q8 IVPB Last administered on 01/27/19at 12:03; Admin Dose 100 MLS/HR; Start 01/26/19 at 22:00 Epoetin Indra (Epogen (Esrd)) 4,000 units TuThSa@17 SC ; Start 01/28/19 at 17:00 Insulin Aspart (Novolog Insulin Pen) NOVOLOG *MODERATE* ALGORITHM WITH MEALS BEDTIME SC ; Start 01/26/19 at 21:00 Heparin Sodium (Porcine) (Heparin (5000 Units/1ml)) 5,000 unit BID SC Last administered on 01/27/19at 12:54; Admin Dose 5,000 UNIT; Start 01/26/19 at 21:00 Morphine Sulfate (morphine) 2 mg Q4H PRN IV SEVERE PAIN LEVEL 7-10; Start 01/26/19 at 20:30 Miscellaneous Information 1 ea NOTE XX ; Start 01/26/19 at 23:45 Glucose (Glutose) 15 gm Q15M PRN PO DECREASED GLUCOSE; Start 01/26/19 at 23:45 Glucose (Glutose) 22.5 gm Q15M PRN PO DECREASED GLUCOSE; Start 01/26/19 at 23:45 Dextrose (D50w Syringe) 25 ml Q15M PRN IV DECREASED GLUCOSE; Start 01/26/19 at 23:45 Dextrose (D50w Syringe) 50 ml Q15M PRN IV DECREASED GLUCOSE; Start 01/26/19 at 23:45 Glucagon (Glucagen) 1 mg Q15M PRN IM DECREASED GLUCOSE; Start 01/26/19 at 23:45 Glucose (Glutose) 15 gm Q15M PRN BUCCAL DECREASED GLUCOSE; Start 01/26/19 at 23:45 Alteplase, Recombinant (Cathflo (Activase)) 2 mg MAY REPEAT X1 PRN CATHETER IF CATHETER REMAINS OCCULUDED; Start 01/27/19 at 07:00 Tramadol HCl (Ultram) 50 mg Q6H PO Last administered on 01/27/19at 12:32; Admin Dose 50 MG; Start 01/27/19 at 08:00 TROY ANTOINE Jan 27, 2019 15:28
--- NOTE | 2019-01-27 16:58 | CONS ---
DATE OF ADMISSION: 01/26/2019 DATE OF CONSULTATION: 01/27/2019 TYPE OF CONSULTATION: Infectious disease. REQUESTING PHYSICIAN: Alexus Valencia MD. Thank you Dr. Valencia for this consultation. HISTORY OF PRESENT ILLNESS: This is an unfortunate 63-year-old woman, who is well known to our service from multiple previous admissions to different facilities. The patient with a past medical history significant for end-stage renal disease, hemodialysis dependent, CHF, multiple decubitus ulcerations, right upper extremity AV fistula, hypertension, diabetes, recurrent bouts of UTI and pneumonia, history of MRSA colonization of the nares, respiratory failure secondary to pneumonia and CHF exacerbation, peripheral vascular disease, obesity with cachexia. Pt also has a history of multiple orthopedic surgeries such as left upper extremity tendon repair, left elbow surgery, carpal tunnel bilateral hands, history of right chest Perm-A-Cath that subsequently, was removed. The patient was admitted from assisted facility with unstageable bilateral buttock decubitus. She is being seen by surgical team. She was started on antibiotics, vancomycin and Zosyn. VITAL SIGNS: Upon presentation, temperature 98.1, pulse 68, respirations 17, blood pressure 125/58, saturation 99 on room air. WBC 12.1, H and H 8.4 and 29.8, platelets 186, neutrophils 80.1. Chest x-ray on admission revealed moderate cardiomegaly with pulmonary vascular congestion. INDWELLINGS: The patient has left upper extremity PICC line and right upper extremity AV fistula. SOCIAL HISTORY: The patient came from the facility. REVIEW OF SYSTEMS: As per history of present illness. PHYSICAL EXAMINATION: GENERAL: This is a fragile, wasted, well-developed, elderly woman, who is lethargic, arousable. The patient is in no distress. HEENT: Head atraumatic, normocephalic. Sclerae anicteric. The patient has right eye blindness. Buccal mucosa pale, dry. NECK: Supple. CHEST: Rise symmetrical. Breath sounds diminished to bases. HEART: S1, S2. ABDOMEN: Obese, soft, bowel tones present. EXTREMITIES: Bilateral edema. SKIN: The patient has a large necrotic wounds on bilateral buttocks, left buttock and left posterior thigh area , also, necrotic wound. The patient has pressure sores on her left heel as well. DIAGNOSTIC IMPRESSION: A 63-year-old woman with above-mentioned problems admitted with infected decubitus ulcers. The patient is on broad spectrum antibiotics, which we will continue. Surgery on case. . We will order 2 sets of blood cultures. Order MRSA swab. Continue local wound care per surgical recommendations. We will try to obtain wound cultures as well. Discussed with Dr. Dr. Perea. Dictated By: ALYX NAVARRO PACKAGE DESIGNER for LUCAS WAN MD NI/NTS Conf#: [id number] DID#: [id number] CC: ALEXUS VALENCIA MD; GEORGES BERGERON MD;*EndCC* MTDD
--- NOTE | 2019-01-27 21:09 | CONS ---
Assessment/Plan Assessment/Plan Assessment/Plan (Daily) - ESRD on Hemodialysis - Anemia of Chronic Disease - DM / DM Nephropathy - CAD / CHF - Hypoalbuminia - Hypothyroid - Failure to thrive - Leukocytosis - Non healing wound PLAN: Bedside dialysis Aim for UD ~ 1-2 liter as tolerates IV Antibiotics Local wound care Follow up on H/H ( on long acting EPO as out patient ) High protein diet / Supplements THANK YOU Bridger YUSUF Consultation Date/Type/Reason Admit Date/Time Jan 26, 2019 at 17:32 Date of Consultation: Jan 27, 2019 Type of Consult - Nephrology ( Dialysis Dependent ) Reason for Consultation - Dialysis dependent ( HD outpatient @ [facility] ) Date/Time of Note DATE: 01/27/19 TIME: 21:03 Constitutional: no complaints Eyes: no complaints ENT: no complaints Respiratory: shortness of breath Cardiovascular: no complaints Gastrointestinal: no complaints Past Medical History Medical History: congestive heart failure, coronary artery disease, diabetes, renal disease Home Meds Reported Medications Insulin Lispro (Humalog Kwikpen U-100) 100 Unit/1 Ml Insuln.pen, 0 SQ SLIDING SCALE, EA IF BS 151-200=1 UNIT,201-250=2 UNITS,251-300=3 UNITS,301-350=4 UNITS,351-400=5 UNITS, IF >400=6 UNITS AND CALL 01/26/19 Dariel [place]/Blue [place] Oil (Venelex Ointment) 60 Gm Oint..gm., 1 APPLIC TOP NEEDED, #1 TUB 01/26/19 Multivit/Ca Carb/B Cmplx/Fa* (Wendi-Cathi*) 1 Tab Tab, 1 TAB PO DAILY, TAB 01/26/19 Metoclopramide* (Reglan*) 5 Mg Tablet, 5 MG PO BEFORE MEALS, TAB 01/26/19 Protein Supplement (Promod) 946 Ml Liquid, 30 ML PO DAILY 01/26/19 Lactose-Free Food (Nutritional Supplement) 237 Ml Liquid, 1 PO BID 01/26/19 Morphine Sulfate* (Morphine* Liq) 10 Mg/0.5 Ml Disp.syrin, 6 MG SL Q4H PRN for PAIN 7-10/10, ML 01/26/19 Ipratropium-Albuterol (Ipratropium-Albuterol) 0.5-3 Mg/3 Ml Ampul.neb, 3 ML INHALATION TID, #30 VIAL 01/26/19 Heparin Sod,Porcine/0.9 % NaCl (Heparin 5,000 Unit/5 ml-Ns) 5,000 Unit/5 Ml Syringe, 5000 UNIT IV Q8H 01/26/19 Ondansetron Hcl* (Zofran*) 4 Mg Tablet, 4 MG PO Q6H PRN for NAUSEA AND OR VOMITING, TAB 01/26/19 Citalopram Hydrobromide* (Citalopram Hydrobromide*) 20 Mg Tablet, 20 MG PO DAILY, #30 TAB 01/26/19 Bisacodyl* (Bisacodyl*) 5 Mg Tablet.dr, 10 MG PO Q24H PRN for CONSTIPATION, TAB 01/26/19 Diphenhydramine Hcl* (Diphenhydramine Hcl*) 25 Mg Capsule, 25 MG PO Q6 PRN for ITCHING, CAP 01/26/19 Polyethylene Glycol* (Polyethylene Glycol*) 17 Gm Powd.pack, 17 GM PO DAILY, #30 PACKET 11/18/18 Pantoprazole* (Pantoprazole*) 40 Mg Tablet.dr, 40 MG PO DAILY, TAB 11/18/18 Metoprolol Tartrate* (Lopressor*) 25 Mg Tablet, 25 MG PO BID, #60 TAB HOLD IF SBP<110 OR HR<60 11/18/18 Losartan Potassium* (Losartan Potassium*) 50 Mg Tablet, 50 MG PO BID, TAB HOLD IFSBP<110 OR HR<60 11/18/18 Levothyroxine Sodium* (Levothyroxine Sodium*) 100 Mcg Tablet, 100 MCG PO BEFORE BREAKFAST, #30 TAB 11/18/18 Insulin Detemir (Levemir) 100 Unit/1 Ml Vial, 6 UNITS SQ QHS 11/18/18 Folic Acid* (Folic Acid*) 1 Mg Tablet, 1 MG PO DAILY, TAB 11/18/18 Zinc Sulfate* (Zinc Sulfate*) 220 Mg Cap, 220 MG PO DAILY, CAP 11/18/18 Ascorbic Acid (Vitamin C) 500 Mg Tab, 500 MG PO DAILY, TAB 11/18/18 Acetaminophen* (Acetaminophen*) 325 Mg Tablet, 325 MG PO Q4H PRN for PAIN AND OR ELEVATED TEMP, #30 TAB FOR MILD PAIN 1-01/1711/18/18 Trazodone Hcl* (Trazodone Hcl*) 50 Mg Tablet, 50 MG PO QHS, #30 TAB 11/18/18 Tramadol HCl (Tramadol HCl) 50 Mg Tablet, 50 MG PO Q6H PRN for PAIN, #120 TAB 11/18/18 Prednisolone Acetate* (Pred Forte*) 5 Ml Susp, 1 DROP RIGHT EYE BID, EA 11/18/18 Docusate Sodium* (Colace*) 100 Mg Capsule, 100 MG PO BID, #30 CAP 11/18/18 Atorvastatin Calcium* (Atorvastatin Calcium*) 20 Mg Tablet, 20 MG PO QHS, #30 TAB 11/18/18 Amlodipine Besylate* (Norvasc*) 5 Mg Tablet, 5 MG PO QHS, TAB HOLD IF SBP<110 OR HR<60 11/18/18 Amiodarone Hcl* (Amiodarone Hcl*) 200 Mg Tablet, 200 MG PO DAILY, #30 TAB 11/18/18 Discontinued Reported Medications Multivitamins* (Theragran*) 1 Tab Tab, 1 TAB PO DAILY, TAB 11/18/18 Midodrine* (Midodrine*) 10 Mg Tablet, 10 MG PO Q8, TAB 11/18/18 Lorazepam* (Lorazepam*) 1 Mg Tablet, 1 MG PO Q8 PRN for ANXIETY, #60 TAB 11/18/18 Loperamide Hcl* (Loperamide Hcl*) 2 Mg Cap, 2 MG PO Q8, CAP 11/18/18 Simethicone (GAS RELIEF) 80 Mg Tab.chew, 80 MG PO BID, TAB.CHEW 11/18/18 Sodium Chloride (Saline Nasal Mist) 126 Ml Mist, 2 SPRAY NASAL TID, BOTTLE 11/18/18 Albuterol Sulfate* (Albuterol Sulfate* Neb) 0.083%-3 Ml Neb, 2.5 MG NEB Q6 PRN for WHEEZING AND SOB, #30 VIAL 11/18/18 Lactobacillus Acidophilus/Pect (Acidophilus-Pectin Capsule) 1 Each Capsule, 1 EACH PO DAILY, CAP 11/18/18 Clotrimazole (Clotrimazole) Vaginal Cream..g., 1 APPLIC VAG HS, EA 11/18/18 Citalopram Hydrobromide* (Citalopram Hydrobromide*) 10 Mg Tablet, 10 MG PO DAILY, #30 TAB 11/18/18 Clonidine Hcl* (Clonidine Hcl*) 0.1 Mg Tab, 0.1 MG PO Q4H PRN for ELEVATED BLOOD PRESSURE, TAB 11/18/18 Apixaban* (Eliquis*) 2.5 Mg Tablet, 2.5 MG PO BID, TAB 11/18/18 Medications Current Medications Amiodarone HCl (Cordarone) 200 mg DAILY PO Last administered on 01/27/19 12:06; Admin Dose 200 MG; Start 01/27/19 at 09:00 Ascorbic Acid (Vitamin C) 500 mg DAILY PO Last administered on 01/27/19 12:05; Admin Dose 500 MG; Start 01/27/19 at 09:00 Atorvastatin Calcium (Lipitor) 20 mg QHS PO Last administered on 01/27/19 01:03; Admin Dose 20 MG; Start 01/26/19 at 21:00 Bisacodyl (Dulcolax) 10 mg Q24H PRN PO CONSTIPATION; Start 01/26/19 at 20:00 Citalopram Hydrobromide (Celexa) 20 mg DAILY PO Last administered on 01/27/19 12:06; Admin Dose 20 MG; Start 01/27/19 at 09:00 Docusate Sodium (Colace) 100 mg BID PO Last administered on 01/27/19 12:05; Admin Dose 100 MG; Start 01/26/19 at 21:00 Folic Acid (Folic Acid) 1 mg DAILY PO Last administered on 01/27/19 12:05; Admin Dose 1 MG; Start 01/27/19 at 09:00 Insulin Detemir (Levemir) 6 units QHS SC Last administered on 01/27/19 01:35; Admin Dose 6 UNITS; Start 01/26/19 at 21:00 Levothyroxine Sodium (Synthroid) 100 mcg BEFORE BREAKFAST PO Last administered on 01/27/19 06:47; Admin Dose 100 MCG; Start 01/27/19 at 07:00 Metoclopramide HCl (Reglan) 5 mg BEFORE MEALS PO Last administered on 01/27/19 17:36; Admin Dose 5 MG; Start 01/27/19 at 07:30 Metoprolol Tartrate (Lopressor) 25 mg BID PO Last administered on 3/20/19at 01:06; Admin Dose 25 MG; Start 01/26/19 at 21:00 Multivit/Ca Carb/ B Cmplx/FA/Prenat (Wendi-Cathi) 1 tab DAILY PO Last administere d on 01/27/19 12:05; Admin Dose 1 TAB; Start 01/27/19 at 09:00 Ondansetron HCl (Zofran Tab) 4 mg Q6H PRN PO NAUSEA AND/OR VOMITING; Start 01/26/19 at 20:00 Pantoprazole (Protonix Tab) 40 mg DAILY PO Last administered on 01/27/19 12:05; Admin Dose 40 MG; Start 01/27/19 at 09:00 Polyethylene Glycol (Miralax) 17 gm DAILY PO Last administered on 01/27/19 12:04; Admin Dose 17 GM; Start 01/27/19 at 09:00 Prednisolone Acetate (Pred-Forte 1%) 1 drop BID RIGHT EYE Last administered on 01/27/19 12:07; Admin Dose 1 DROP; Start 01/26/19 at 21:00 Zinc Sulfate (Zinc Sulfate) 220 mg DAILY PO Last administered on 01/27/19 12:05; Admin Dose 220 MG; Start 01/27/19 at 09:00 Vancomycin HCl (Vanco Iv Per Pharmacy) VANCOMYCIN PER PHARMACY PER PROTOCOL XX ; Start 01/26/19 at 20:30 Piperacillin Sod/ Tazobactam Sod 50 ml @ 100 mls/hr Q8 IVPB Last administered on 01/27/19at 12:03; Admin Dose 100 MLS/HR; Start 01/26/19 at 22:00 Epoetin Indra (Epogen (Esrd)) 4,000 units TuThSa@17 SC ; Start 01/28/19 at 17:00 Insulin Aspart (Novolog Insulin Pen) NOVOLOG *MODERATE* ALGORITHM WITH MEALS BEDTIME SC ; Start 01/26/19 at 21:00 Heparin Sodium (Porcine) (Heparin (5000 Units/1ml)) 5,000 unit BID SC Last ad ministered on 01/27/19at 12:54; Admin Dose 5,000 UNIT; Start 01/26/19 at 21:00 Morphine Sulfate (morphine) 2 mg Q4H PRN IV SEVERE PAIN LEVEL 7-10; Start 01/26/19 at 20:30 Miscellaneous Information 1 ea NOTE XX ; Start 01/26/19 at 23:45 Glucose (Glutose) 15 gm Q15M PRN PO DECREASED GLUCOSE; Start 01/26/19 at 23:45 Glucose (Glutose) 22.5 gm Q15M PRN PO DECREASED GLUCOSE; Start 01/26/19 at 23:45 Dextrose (D50w Syringe) 25 ml Q15M PRN IV DECREASED GLUCOSE; Start 01/26/19 at 23:45 Dextrose (D50w Syringe) 50 ml Q15M PRN IV DECREASED GLUCOSE; Start 01/26/19 at 23:45 Glucagon (Glucagen) 1 mg Q15M PRN IM DECREASED GLUCOSE; Start 01/26/19 at 23:45 Glucose (Glutose) 15 gm Q15M PRN BUCCAL DECREASED GLUCOSE; Start 01/26/19 at 23:45 Alteplase, Recombinant (Cathflo (Activase)) 2 mg MAY REPEAT X1 PRN CATHETER IF CATHETER REMAINS OCCULUDED; Start 01/27/19 at 07:00 Tramadol HCl (Ultram) 50 mg Q6H PO Last administered on 01/27/19at 12:32; Admin Dose 50 MG; Start 01/27/19 at 08:00 Collagenase (Santyl) 1 applic DAILY TOP ; Start 01/28/19 at 09:00 Sodium Hypochlorite (Dakin'S (Dilute 40)) 1 applic DAILY IRR ; Start 01/28/19 at 09:00 Allergies: Coded Allergies: codeine (Verified Allergy, Unknown, 01/26/19) PT TAKES MORPHINE AT HOME, HAS HAD HYDROCODONE AT [facility] IN A PREVIOUS VISIT Past Surgical History Past Surgical Hx: other Family History Significant Family History: no pertinent family hx Social History Alcohol Use: none Smoking Status: Unknown if ever smoked Drug Use: none Exam/Review of Systems Exam Vitals Vital Signs Date Temp Pulse Resp B/P (MAP) Pulse Ox O2 O2 Flow FiO2 Time Delivery Rate 01/27/19 70 20:07 01/27/19 98.1 18 125/60 94 20:00 (81) 01/27/19 Nasal 15:04 Cannula 01/27/19 2.0 08:00 Intake and Output 01/26/19 01/26/19 01/27/19 1515:00 23:00 07:00 IntakeIntake Total 450 ml BalanceBalance 450 ml Constitutional: alert Respiratory: crackles/rales Cardiovascular: edema, systolic murmur Gastrointestinal: soft Results Result Diagram: 01/26/19 1617 01/26/19 1617 Results 24hrs Laboratory Tests Test 01/26/19 22:18 01/26/19 22:50 01/27/19 01:32 01/27/19 05:12 Bedside Glucose 147 168 Lactic Acid Level 0.7 Amylase Level < 30 Lipase < 10 L Hepatitis B Surface NEGATIVE Antigen Test 01/27/19 05:15 01/27/19 08:05 01/27/19 12:12 01/27/19 17:38 Triglycerides Level 73 Cholesterol Level 101 LDL Cholesterol, 29 Calculated HDL Cholesterol 57 Cholesterol/HDL 1.7 Ratio Thyroid Stimulating 1.220 Hormone (TSH) Free Thyroxine 1.64 Bedside Glucose 110 91 135 Medications Medication Current Medications Amiodarone HCl (Cordarone) 200 mg DAILY PO Last administered on 01/27/19 12:06; Admin Dose 200 MG; Start 01/27/19 at 09:00 Ascorbic Acid (Vitamin C) 500 mg DAILY PO Last administered on 01/27/19at 12:05; Admin Dose 500 MG; Start 01/27/19 at 09:00 Atorvastatin Calcium (Lipitor) 20 mg QHS PO Last administered on 01/27/19at 01:03; Admin Dose 20 MG; Start 01/26/19 at 21:00 Bisacodyl (Dulcolax) 10 mg Q24H PRN PO CONSTIPATION; Start 01/26/19 at 20:00 Citalopram Hydrobromide (Celexa) 20 mg DAILY PO Last administered on 01/27/19 12:06; Admin Dose 20 MG; Start 01/27/19 at 09:00 Docusate Sodium (Colace) 100 mg BID PO Last administered on 01/27/19 12:05; Admin Dose 100 MG; Start 01/26/19 at 21:00 Folic Acid (Folic Acid) 1 mg DAILY PO Last administered on 01/27/19 12:05; Admin Dose 1 MG; Start 01/27/19 at 09:00 Insulin Detemir (Levemir) 6 units QHS SC Last administered on 01/27/19at 01:35; Admin Dose 6 UNITS; Start 01/26/19 at 21:00 Levothyroxine Sodium (Synthroid) 100 mcg BEFORE BREAKFAST PO Last administered on 01/27/19 06:47; Admin Dose 100 MCG; Start 01/27/19 at 07:00 Metoclopramide HCl (Reglan) 5 mg BEFORE MEALS PO Last administered on 01/27/19 17:36; Admin Dose 5 MG; Start 01/27/19 at 07:30 Metoprolol Tartrate (Lopressor) 25 mg BID PO Last administered on 01/27/19 01:06; Admin Dose 25 MG; Start 01/26/19 at 21:00 Multivit/Ca Carb/ B Cmplx/FA/Prenat (Wendi-Cathi) 1 tab DAILY PO Last administered on 01/27/19 12:05; Admin Dose 1 TAB; Start 01/27/19 at 09:00 Ondansetron HCl (Zofran Tab) 4 mg Q6H PRN PO NAUSEA AND/OR VOMITING; Start 01/26/19 at 20:00 Pantoprazole (Protonix Tab) 40 mg DAILY PO Last administered on 01/27/19 12:05; Admin Dose 40 MG; Start 01/27/19 at 09:00 Polyethylene Glycol (Miralax) 17 gm DAILY PO Last administered on 01/27/19 12:04; Admin Dose 17 GM; Start 01/27/19 at 09:00 Prednisolone Acetate (Pred-Forte 1%) 1 drop BID RIGHT EYE Last administered on 01/27/19 12:07; Admin Dose 1 DROP; Start 01/26/19 at 21:00 Zinc Sulfate (Zinc Sulfate) 220 mg DAILY PO Last administered on 01/27/19 12:05; Admin Dose 220 MG; Start 01/27/19 at 09:00 Vancomycin HCl (Vanco Iv Per Pharmacy) VANCOMYCIN PER PHARMACY PER PROTOCOL XX ; Start 01/26/19 at 20:30 Piperacillin Sod/ Tazobactam Sod 50 ml @ 100 mls/hr Q8 IVPB Last administered on 01/27/19 12:03; Admin Dose 100 MLS/HR; Start 01/26/19 at 22:00 Epoetin Indra (Epogen (Esrd)) 4,000 units TuThSa@17 SC ; Start 01/28/19 at 17:00 Insulin Aspart (Novolog Insulin Pen) NOVOLOG *MODERATE* ALGORITHM WITH MEALS BEDTIME SC ; Start 01/26/19 at 21:00 Heparin Sodium (Porcine) (Heparin (5000 Units/1ml)) 5,000 unit BID SC Last administered on 01/27/19at 12:54; Admin Dose 5,000 UNIT; Start 01/26/19 at 21:00 Morphine Sulfate (morphine) 2 mg Q4H PRN IV SEVERE PAIN LEVEL 7-10; Start 01/26/19 at 20:30 Miscellaneous Information 1 ea NOTE XX ; Start 01/26/19 at 23:45 Glucose (Glutose) 15 gm Q15M PRN PO DECREASED GLUCOSE; Start 01/26/19 at 23:45 Glucose (Glutose) 22.5 gm Q15M PRN PO DECREASED GLUCOSE; Start 01/26/19 at 23:45 Dextrose (D50w Syringe) 25 ml Q15M PRN IV DECREASED GLUCOSE; Start 01/26/19 at 23:45 Dextrose (D50w Syringe) 50 ml Q15M PRN IV DECREASED GLUCOSE; Start 01/26/19 at 23:45 Glucagon (Glucagen) 1 mg Q15M PRN IM DECREASED GLUCOSE; Start 01/26/19 at 23:45 Glucose (Glutose) 15 gm Q15M PRN BUCCAL DECREASED GLUCOSE; Start 01/26/19 at 23:45 Alteplase, Recombinant (Cathflo (Activase)) 2 mg MAY REPEAT X1 PRN CATHETER IF CATHETER REMAINS OCCULUDED; Start 01/27/19 at 07:00 Tramadol HCl (Ultram) 50 mg Q6H PO Last administered on 01/27/19at 12:32; Admin Dose 50 MG; Start 01/27/19 at 08:00 Collagenase (Santyl) 1 applic DAILY TOP ; Start 01/28/19 at 09:00 Sodium Hypochlorite (Dakin'S (Dilute )) 1 applic DAILY IRR ; Start 01/28/19 at 09:00 ANIBAL ALMANZAR MD Jan 27, 2019 21:09
--- NOTE | 2019-01-27 21:20 | CONS ---
DATE OF ADMISSION: 01/26/2019 DATE OF CONSULTATION: 01/27/2019 TYPE OF CONSULTATION: Gastroenterology. Dear Dr. Mandel: Thank you for asking me to see Mrs. Seth in GI consultation. As you know, patient is a 63-year-ol d female, [place] [facility] [place] [facility], she was admitted to the hospital because of the fact that she has been vomiting periodically in the jail prior to the admission. She has history of chronic renal failure. She is on hemodialysis and she also was treated here in the past for hype rtension, heart failure, pleural effusion, dyslipidemia, etc. Now, she has no history of vomiting bl ood or passing blood to the rectum, no diarrhea. She had a good bowel movement today. The other medical problems essentially as mentioned above. She has got some heartburn but no signifi cant abdominal pain. PAST MEDICAL HISTORY: Includes cholecystectomy, abdominal hernia repair, status post right upper ext remity AV fistula, history of left upper extremity tendon repair, elbow surgery, carpal tunnel surger y, Perm-A-Cath placement. FAMILY HISTORY: Positive for breast cancer, mother had breast cancer. SOCIAL HISTORY: Denies smoking or drinking. PHYSICAL EXAMINATION: GENERAL: The patient is a 63-year-old female who at this time she is alert, she is afebrile . Temperature is 99.2. CARDIOVASCULAR: Normal heart sounds. RESPIRATORY: Normal breath sounds. Occasional rales heard bilaterally. ABDOMEN: Showed evidence of a soft abdomen. LABORATORY WORKUP: Hemoglobin is 8.4, hematocrit 29.8, WBC count 12,100, platelet count 186,000. Ch emistry: Potassium 3.5, BUN is 27, creatinine 3.09, bilirubin 0.0, AST 16, ALT 15, alkaline phosphat ase 82. The chest x-ray showed evidence of mild congestive heart failure. CLINICAL IMPRESSION: The patient presenting with history of recurrent vomiting. On clinical examina tion, there does not seem to be any evidence of bowel obstruction. History of vomiting, but no histo ry of abdominal pain. On a clinical exam, there is no evidence for bowel obstruction. Intra-abdomin al inflammatory process like pancreatitis cannot be excluded. Doubt we are dealing with choledocholi thiasis because the liver functions are normal, although it cannot be excluded. She was on multiple medications, possible that drug induced vomiting is a possibility. She was on diphenhydramine, iprat ropium, Heparin, Norvasc, amiodarone, losartan, metoprolol, citalopram, morphine, tramadol, trazodone , zinc sulfate, prednisone. She is also on metoclopramide, insulin, levothyroxine, folic acid, ascor bic acid. PLAN: At this time, recommend serum amylase and lipase to be done stat. Recommend KUB. I recommend upper endoscopy. Once again, doctor, thank you for this consultation. Dictated By: GEORGES BERGERON MD NC/NTS Conf#: [id number] DID#: [id number] CC: ALEXUS MANDEL MD;*EndCC*
[2019-01-27] MEDS ORDERED: LORAZEPAM 1 MG TAB PO PRN (22:30)
[2019-01-27] MEDS: BALSAM PERU/CASTOR OIL 60 GM TUBE TOP SCH (23:02)
[2019-01-27] MEDS: ONDANSETRON 4 MG TAB PO PRN (23:26)
[2019-01-28] VITALS (17 sets, daily range): BP systolic 104–129; BP diastolic 29–76; PULSE 18–119; RESP 16–23
[2019-01-28] MEDS: traMADol 50 MG TAB PO SCH ×4 (02:00→21:40)
[2019-01-28] MEDS: LEVOTHYROXINE 100 MCG TAB PO SCH (06:00)
[2019-01-28] MEDS: PIPER-TAZO 2.25 GM (PMX) 50 ML IVPB SCH ×3 (06:00→22:01)
[2019-01-28] MEDS: METOCLOPRAMIDE 5 MG TAB PO SCH ×3 (07:30→17:08)
[2019-01-28] MEDS: INSULIN ASPART [NOVOLOG] 3 ML PEN SC SCH ×4 (08:00→21:00)
[2019-01-28] MEDS: METOPROLOL 25 MG TAB PO SCH ×2 (09:00→21:00)
[2019-01-28] MEDS: PREDNISOLONE ACET 1% 5 ML OPH RIGHT EYE SCH ×2 (09:14→21:40)
[2019-01-28] MEDS: SODIUM HYPOCHLORITE (1/40) 1 LITER BTL IRR SCH (09:14)
[2019-01-28] MEDS: POLYETHYLENE GLYCOL 17 GM PACKET PO SCH (09:15)
[2019-01-28] MEDS: BALSAM PERU/CASTOR OIL 60 GM TUBE TOP SCH ×2 (09:15→21:41)
[2019-01-28] MEDS: PANTOPRAZOLE (EC) 40 MG TAB PO SCH (09:16)
[2019-01-28] MEDS: ZINC SULFATE 220 MG CAP PO SCH (09:16)
[2019-01-28] MEDS: ASCORBIC ACID 500 MG TAB PO SCH (09:16)
[2019-01-28] MEDS: CITALOPRAM 20 MG TAB PO SCH (09:16)
[2019-01-28] MEDS: FOLIC ACID 1 MG TAB PO SCH (09:16)
[2019-01-28] MEDS: MULTIVIT/CA CARB/B CMPLX/FA TAB PO SCH (09:16)
[2019-01-28] MEDS: AMIODARONE 200 MG TAB PO SCH (09:16)
[2019-01-28] MEDS: DOCUSATE SODIUM 100 MG CAP PO SCH ×2 (09:16→21:40)
[2019-01-28] MEDS: HEPARIN 5,000 UNIT/1 ML VIAL SC SCH ×2 (09:18→21:54)
[2019-01-28] MEDS: COLLAGENASE 5 GM (UD JAR) TOP SCH (09:28)
--- NOTE | 2019-01-28 10:52 | PN ---
Date/Time of Note Date/Time of Note DATE: 01/28/19 TIME: 10:51 Assessment/Plan VTE Prophylaxis Risk score (from Ns)>0 risk: 6 SCD applied (from Ns): No SCD contraindicated: other Pharmacological prophylaxis: other Pharm contraindication: other Lines/Catheters IV Catheter Type (from Nrsg): PICC Line Central line still needed: Yes Urinary Cath still in place: No Assessment/Plan Assessment/Plan 1. Generalized weakness and recurrent vomiting. The patient's current weight is only 70 kg and back in November 2018, she was 91 kilograms, although at that time she used to have fluid overload and gross diastolic heart failure and her breathing has improved after weight loss. Will call Dr. Ramos for GI evaluation. 2. Multiple decubitus. Wound care consult from wound care team at [facility] as well as Dr. Almanza will be obtained. The patient does have mild leukocytosis and due to necrotic wound, will obtain culture as well as empirically start her on IV antibiotic. ID consult from Dr. Guevara will be obtained. 3. End-stage renal disease. I spoke with Dr. Mcdaniel for renal consult. 4. Anemia of chronic kidney disease, will start Procrit. 5. Diabetes. Will continue Levemir and sliding scale insulin. 6. Right eye blindness. The patient has been using , will continue that. 7. Hypothyroidism. Will continue Synthroid and will obtain TSH and T4. 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 Constitutional: other (Generalized weaknes) ENT: no complaints Respiratory: no complaints Cardiovascular: no complaints Gastrointestinal: no complaints Exam/Review of Systems Exam Vitals Vital Signs Date Temp Pulse Resp B/P (MAP) Pulse Ox O2 O2 Flow FiO2 Time Delivery Rate 01/28/19 Nasal 4.0 09:00 Cannula 01/28/19 97.9 77 19 108/69 97 07:19 (82) Intake and Output 01/27/19 01/27/1919 1515:00 23:00 07:00 IntakeIntake Total 300 ml 580 ml 180 ml OutputOutput Total 2400 ml 0 ml BalanceBalance -2100 ml 580 ml 180 ml Constitutional: alert, well developed Psych: nl mood/affect Head: normocephalic Eyes: nl lids, other (blindness) ENMT: nl external ears & nose Neck: non-tender Results Results 24hrs Laboratory Tests Test 01/27/19 12:12 01/27/19 17:38 01/27/19 22:46 01/28/19 07:46 Bedside Glucose 91 135 136 51 L Test 01/28/19 08:19 Bedside Glucose 92 Medications Medication Current Medications Amiodarone HCl (Cordarone) 200 mg DAILY PO Last administered on 01/28/19 09:16; Admin Dose 200 MG; Start 01/27/19 at 09:00 Ascorbic Acid (Vitamin C) 500 mg DAILY PO Last administered on 01/28/19 09:16; Admin Dose 500 MG; Start 01/27/19 at 09:00 Atorvastatin Calcium (Lipitor) 20 mg QHS PO Last administered on 01/27/19at 23:01; Admin Dose 20 MG; Start 01/26/19 at 21:00 Bisacodyl (Dulcolax) 10 mg Q24H PRN PO CONSTIPATION; Start 01/26/19 at 20:00 Citalopram Hydrobromide (Celexa) 20 mg DAILY PO Last administered on 01/28/19 09:16; Admin Dose 20 MG; Start 01/27/19 at 09:00 Docusate Sodium (Colace) 100 mg BID PO Last administered on 01/28/19 09:16; Admin Dose 100 MG; Start 01/26/19 at 21:00 Folic Acid (Folic Acid) 1 mg DAILY PO Last administered on 01/28/19 09:16; Admin Dose 1 MG; Start 01/27/19 at 09:00 Insulin Detemir (Levemir) 6 units QHS SC Last administered on 01/27/19 23:21; Admin Dose 6 UNITS; Start 01/26/19 at 21:00 Levothyroxine Sodium (Synthroid) 100 mcg BEFORE BREAKFAST PO Last administered on 01/28/19at 06:00; Admin Dose 100 MCG; Start 01/27/19 at 07:00 Metoclopramide HCl (Reglan) 5 mg BEFORE MEALS PO Last administered on 01/27/19 17:36; Admin Dose 5 MG; Start 01/27/19 at 07:30 Metoprolol Tartrate (Lopressor) 25 mg BID PO Last administered on 01/27/19 23:01; Admin Dose 25 MG; Start 01/26/19 at 21:00 Multivit/Ca Carb/ B Cmplx/FA/Prenat (Wendi-Cathi) 1 tab DAILY PO Last administered on 01/28/19 09:16; Admin Dose 1 TAB; Start 01/27/19 at 09:00 Ondansetron HCl (Zofran Tab) 4 mg Q6H PRN PO NAUSEA AND/OR VOMITING Last administered on 01/27/19 23:26; Admin Dose 4 MG; Start 01/26/19 at 20:00 Pantoprazole (Protonix Tab) 40 mg DAILY PO Last administered on 01/28/19 09:16; Admin Dose 40 MG; Start 01/27/19 at 09:00 Polyethylene Glycol (Miralax) 17 gm DAILY PO Last administered on 01/28/19 09:15; Admin Dose 17 GM; Start 01/27/19 at 09:00 Prednisolone Acetate (Pred-Forte 1%) 1 drop BID RIGHT EYE Last administered on 01/28/19 09:14; Admin Dose 1 DROP; Start 01/26/19 at 21:00 Zinc Sulfate (Zinc Sulfate) 220 mg DAILY PO Last administered on 01/28/19 09:16; Admin Dose 220 MG; Start 01/27/19 at 09:00 Vancomycin HCl (Vanco Iv Per Pharmacy) VANCOMYCIN PER PHARMACY PER PROTOCOL XX ; Start 01/26/19 at 20:30 Piperacillin Sod/ Tazobactam Sod 50 ml @ 100 mls/hr Q8 IVPB Last administered on 01/28/19at 06:00; Admin Dose 100 MLS/HR; Start 01/26/19 at 22:00 Epoetin Indra (Epogen (Esrd)) 4,000 units TuThSa@17 SC ; Start 01/28/19 at 17:00 Insulin Aspart (Novolog Insulin Pen) NOVOLOG *MODERATE* ALGORITHM WITH MEALS BEDTIME SC ; Start 01/26/19 at 21:00 Heparin Sodium (Porcine) (Heparin (5000 Units/1ml)) 5,000 unit BID SC Last administered on 01/28/19at 09:18; Admin Dose 5,000 UNIT; Start 01/26/19 at 21:00 Morphine Sulfate (morphine) 2 mg Q4H PRN IV SEVERE PAIN LEVEL 7-10; Start 01/26/19 at 20:30 Miscellaneous Information 1 ea NOTE XX ; Start 01/26/19 at 23:45 Glucose (Glutose) 15 gm Q15M PRN PO DECREASED GLUCOSE; Start 01/26/19 at 23:45 Glucose (Glutose) 22.5 gm Q15M PRN PO DECREASED GLUCOSE; Start 01/26/19 at 23:45 Dextrose (D50w Syringe) 25 ml Q15M PRN IV DECREASED GLUCOSE Last administered on 01/28/19at 07:50; Admin Dose 25 ML; Start 01/26/19 at 23:45 Dextrose (D50w Syringe) 50 ml Q15M PRN IV DECREASED GLUCOSE; Start 01/26/19 at 23:45 Glucagon (Glucagen) 1 mg Q15M PRN IM DECREASED GLUCOSE; Start 01/26/19 at 23:45 Glucose (Glutose) 15 gm Q15M PRN BUCCAL DECREASED GLUCOSE; Start 01/26/19 at 23:45 Alteplase, Recombinant (Cathflo (Activase)) 2 mg MAY REPEAT X1 PRN CATHETER IF CATHETER REMAINS OCCULUDED; Start 01/27/19 at 07:00 Tramadol HCl (Ultram) 50 mg Q6H PO Last administered on 01/28/19at 09:16; Admin Dose 50 MG; Start 01/27/19 at 08:00 Collagenase (Santyl) 1 applic DAILY TOP Last administered on 01/28/19at 09:28; Admin Dose 1 APPLIC; Start 01/28/19 at 09:00 Sodium Hypochlorite (Dakin'S (Dilute 40)) 1 applic DAILY IRR Last administered on 01/28/19at 09:14; Admin Dose 1 APPLIC; Start 01/28/19 at 09:00 Lorazepam (Ativan) 1 mg Q8H PRN PO ANXIETY; Start 01/27/19 at 22:30 TROY ANTOINE Jan 28, 2019 10:52
--- NOTE | 2019-01-28 11:52 | RADRPT ---
Echocardiogram Report Patient Name: CLAIRE BATESPatient ID: [id number] : 1955 (63y 1m)Study Date: 01/28/2019 7:52:07 AM Gender: FAccession #: [id number] Tech: Juju Guthrie [facility] Location: [facility] Ref.Physician: ELA BELTRÁN Height(Cm): BSA: Weight(Kg): Quality: AdequateAccount #: Procedures: Echocardiographic Report: Transthoracic echocardiogram with complete 2D, M-Mode, and doppler examination. Indications: Congestive Heart Failure. Measurements: 2D/M Mode Doppler Measurement Value Normal Range Measurement Value Normal Range LVIDd 2D 5.0 [ 3.8 - 5.2 ] cm AV Mean Jerzy 1.8 [ 70.0 - 90.0 ] cm/sec LVIDs 2D 2.3 [ 2.2 - 3.5 ] cm AV Mean PG 14.0 [ 2.0 - 4.0 ] mmHg LVPWd 2D 1.0 [ 0.6 - 0.9 ] cm AV VTI 58.3 cm IVSd 2D 0.9 [ 0.6 - 0.9 ] cm LVOT Mean Jerzy 1.0 [ 60.0 - 80.0 ] cm/sec AoR Diam 2D 2.8 [ 2.3 - 3.1 ] cm LVOT Mean PG 4.0 [ 1.0 - 3.0 ] mmHg EDV 2D 119.0 [ 46.0 - 106.0 ] ml LVOT Peak Jerzy 1.4 [ 70.0 - 110.0 ] cm/sec ESV 2D 18.3 [ 14.0 - 42.0 ] ml LVOT Peak PG 8.0 [ 2.0 - 6.0 ] mmHg EF 2D 84.6 [ 54.0 - 74.0 ] percent LVOT VTI 29.5 [ 20.0 - 30.0 ] cm LA Dimen 2D 3.8 [ 2.7 - 3.8 ] cm MV E Peak Jerzy 1.3 [ 60.0 - 130.0 ] cm/sec MV A Peak Jerzy 0.6 [ 100.0 - 120.0 ] cm/sec MV E/A 2.1 [ 0.8 - 1.5 ] ratio MV Decel Time 218 [ 104 - 258 ] msec Lat E` Jerzy 0.1 [ 10.0 - 15.0 ] cm/sec Lateral E/E` 19.7 [ 1.0 - 2.0 ] ratio MV E/A 2.1 [ 0.8 - 1.5 ] ratio TR Peak Jerzy 2.8 [ 100.0 - 280.0 ] cm/sec TR Peak PG 32.0 mmHg RVSP 32.0 [ 10.0 - 36.0 ] mmHg RA Pressure 10.0 mmHg Findings: Left Ventricle: Normal left ventricular systolic function. Normal left ventricular cavity size. Normal left ventricular wall thickness. Ejection fraction is visually estimated at 50-55 %. Tissue Doppler/Mitral Doppler indices are consistent with restrictive physiology with markedly elevated left atrial pressure (Stage III-IV diastolic dysfunction). Right Ventricle: Normal right ventricular size. Normal right ventricular systolic function. Left Atrium: The left atrium is normal in size. Right Atrium: The right atrium is normal in size. Mitral Valve: Mitral valve leaflets appear moderately thickened. Mild mitral annular calcification. Trace mitral regurgitation. Aortic Valve: Mild aortic stenosis. Aortic valve Max velocity 2.45 m/sec. Max PG 24.10 mmHg. Mean PG 14.00 mmHg. No aortic regurgitation. Tricuspid Valve: Normal appearance of the tricuspid valve. Estimated peak PA systolic pressure 32 mmHg. There is mild to moderate tricuspid regurgitation. Pulmonic Valve: Normal pulmonic valve appearance. Pericardium: Normal pericardium with no significant pericardial effusion. Left pleural effusion seen. Aorta: Normal aortic root. IVC: Normal size and normal respiratory collapse consistent with normal right atrial pressure. Conclusions: Normal left ventricular systolic function. Normal left ventricular cavity size. Normal left ventricular wall thickness. Ejection fraction is visually estimated at 50-55 %. Tissue Doppler/Mitral Doppler indices are consistent with restrictive physiology with markedly elevated left atrial pressure (Stage III-IV diastolic dysfunction). Mitral valve leaflets appear moderately thickened. Mild mitral annular calcification. Trace mitral regurgitation. Mild aortic stenosis. Aortic valve Max velocity 2.45 m/sec. Max PG 24.10 mmHg. Mean PG 14.00 mmHg. No aortic regurgitation. Normal appearance of the tricuspid valve. Estimated peak PA systolic pressure 32 mmHg. There is mild to moderate tricuspid regurgitation. Electronically Signed By: Balwinder Thomas 2019-01-28 11:51:12 PDT
--- NOTE | 2019-01-28 11:58 | PN ---
Date/Time of Note Date/Time of Note DATE: 01/28/19 TIME: 11:55 Assessment/Plan Lines/Catheters IV Catheter Type (from Rust): PICC Line [place] in Place (from Rust): No Assessment/Plan Chief Complaint/Hosp Course 1. Sacral and bilateral ischial wounds: wnd cx noted -debridement tomorrow -local care -frequent turning and off-loading -low air loss mattress -vitamin c -short term zinc -optimize nutrition 2. Abdominal pain and generalized weakness: -further w/u per med team -EGD today 3. ESRD -limit nephrotoxins -HD per renal -renally dose meds 4. Anemia: -monitor and transfuse as needed 5. Diabetes -glucose monitoring 6. Hypothyroidism -med mgt 7. Leukocytosis -further workup per med/id team -as above Thank you. Patient seen and examined in collaboration with Dr. Simón Almanza. Subjective 24 Hr Interval Summary Hemodialysis yesterday. EGD today. No fevers, chills, sob, congested cough, cp, palpitations, hoffman, dizziness, nausea, vomiting, diarrhea, dysuria. Exam/Review of Systems Vital Signs Vitals Vital Signs Date Temp Pulse Resp B/P (MAP) Pulse Ox O2 O2 Flow FiO2 Time Delivery Rate 01/28/19 97.8 66 20 128/62 95 Nasal 3.0 10:58 (84) Cannula Intake and Output 01/27/19 01/27/19 01/28/19 1515:00 23:00 07:00 IntakeIntake Total 300 ml 580 ml 180 ml OutputOutput Total 2400 ml 0 ml BalanceBalance -2100 ml 580 ml 180 ml Exam Free Text/Dictation Constitutional: alert, oriented, obese Psych: anxiety Head: normocephalic, atraumatic Eyes: nl conjunctiva, EOMI, nl lids, nl sclera ENMT: nl external ears & nose, nl lips & teeth, mucosa pink and moist Neck: supple, non-tender; No jvd Respiratory: normal air movement; No congested cough, No labored breathing Cardiovascular: regular rate and rhythm, nl pulses; No edema Gastrointestinal: soft, non-tender, distended Genitourinary - Female: nl external genitalia Musculoskeletal: nl extremities to inspection, nl gait and stance Extremities: normal pulses Neurological: nl mental status, nl speech, nl strength Skin: other (sacral: malodorous, necrotic tissue; right ischium: slough and necrotic tissue, malodorous; left ischium: unstageable); No rash or lesions Results Result Diagram: 01/26/19 1617 01/26/19 1617 ARSLAN COATES NP Jan 28, 2019 11:58
--- NOTE | 2019-01-28 12:21 | QN ---
Documentation Comment Full note dictated #[id number], Patient is ok to proceed to EGD at moderate CV risk. ALIREZA LEE Jan 28, 2019 12:21
--- NOTE | 2019-01-28 13:43 | CONS ---
Assessment/Plan Assessment/Plan Hospital Course (Demo Recall) No acute events looks comfortable no fevers no labs today Microbiology: Blood cultures negative wound culture pending Indwelling: Left upper extremity PICC line right upper extremity AV fistula Antimicrobials: Vanco Zosyn PHYSICAL EXAMINATION: GENERAL: This is a fragile, wasted, well-developed, elderly woman, who is lethargic, arousable. The patient is in no distress. HEENT: Head atraumatic, normocephalic. Sclerae anicteric. The patient has right eye blindness. Buccal mucosa pale, dry. NECK: Supple. CHEST: Rise symmetrical. Breath sounds diminished to bases. HEART: S1, S2. ABDOMEN: Obese, soft, bowel tones present. EXTREMITIES: Bilateral edema. SKIN: The patient has a large necrotic wounds on bilateral buttocks, left buttock and left posterior thigh area , also, necrotic wound. The patient has pressure sores on her left heel as well. Assessment: 1. Multiple necrotic infected wounds 2. End-stage renal disease, hemodialysis dependent 3. Diabetes 4. Hypertension 5. MRSA colonization Plan: Patient is stable, continue on current antibiotics, add topical Bactroban, await for final cultures, pending debridement Consultation Date/Type/Reason Admit Date/Time Jan 26, 2019 at 17:32 Initial Consult Date 01/27/19 Type of Consult id Requesting Provider: ALXEUS VALENCIA MD Date/Time of Note DATE: 01/28/19 TIME: 13:42 Exam/Review of Systems Exam Vitals Vital Signs Date Temp Pulse Resp B/P (MAP) Pulse Ox O2 O2 Flow FiO2 Time Delivery Rate 01/28/19 97.8 66 20 128/62 95 Nasal 3.0 10:58 (84) Cannula Intake and Output 01/27/19 01/27/19 01/28/19 1515:00 23:00 07:00 IntakeIntake Total 300 ml 580 ml 180 ml OutputOutput Total 2400 ml 0 ml BalanceBalance -2100 ml 580 ml 180 ml Results Result Diagram: 01/26/19 1617 01/28/19 1149 Results 24hrs Laboratory Tests Test 01/27/19 17:38 01/27/19 22:46 01/28/19 07:46 01/28/19 08:19 Bedside Glucose 135 136 51 L 92 Test 01/28/19 11:49 Sodium Level 137 Potassium Level 3.4 L Chloride Level 102 Carbon Dioxide Level 28 Anion Gap 7 Blood Urea Nitrogen 21 H Creatinine 2.27 H Est Glomerular 22 L Filtrat Rate mL/min Glucose Level 69 #L Calcium Level 8.9 Medications Medication Current Medications Amiodarone HCl (Cordarone) 200 mg DAILY PO Last administered on 01/28/19 09:16; Admin Dose 200 MG; Start 01/27/19 at 09:00 Ascorbic Acid (Vitamin C) 500 mg DAILY PO Last administered on 01/28/19 09:16; Admin Dose 500 MG; Start 01/27/19 at 09:00 Atorvastatin Calcium (Lipitor) 20 mg QHS PO Last administered on 01/27/19 23:01; Admin Dose 20 MG; Start 01/26/19 at 21:00 Bisacodyl (Dulcolax) 10 mg Q24H PRN PO CONSTIPATION; Start 01/26/19 at 20:00 Citalopram Hydrobromide (Celexa) 20 mg DAILY PO Last administered on 01/28/19 09:16; Admin Dose 20 MG; Start 01/27/19 at 09:00 Docusate Sodium (Colace) 100 mg BID PO Last administered on 01/28/19 09:16; Admin Dose 100 MG; Start 01/26/19 at 21:00 Folic Acid (Folic Acid) 1 mg DAILY PO Last administered on 01/28/19 09:16; Admin Dose 1 MG; Start 01/27/19 at 09:00 Insulin Detemir (Levemir) 6 units QHS SC Last administered on 01/27/19 23:21; Admin Dose 6 UNITS; Start 01/26/19 at 21:00 Levothyroxine Sodium (Synthroid) 100 mcg BEFORE BREAKFAST PO Last administered on 01/28/19 06:00; Admin Dose 100 MCG; Start 01/27/19 at 07:00 Metoclopramide HCl (Reglan) 5 mg BEFORE MEALS PO Last administered on 01/27/19 17:36; Admin Dose 5 MG; Start 01/27/19 at 07:30 Metoprolol Tartrate (Lopressor) 25 mg BID PO Last administered on 01/27/19 23:01; Admin Dose 25 MG; Start 01/26/19 at 21:00 Multivit/Ca Carb/ B Cmplx/FA/Prenat (Wendi-Cathi) 1 tab DAILY PO Last administered on 01/28/19 09:16; Admin Dose 1 TAB; Start 01/27/19 at 09:00 Ondansetron HCl (Zofran Tab) 4 mg Q6H PRN PO NAUSEA AND/OR VOMITING Last administered on 01/27/19 23:26; Admin Dose 4 MG; Start 01/26/19 at 20:00 Pantoprazole (Protonix Tab) 40 mg DAILY PO Last administered on 01/28/19 09:16; Admin Dose 40 MG; Start 01/27/19 at 09:00 Polyethylene Glycol (Miralax) 17 gm DAILY PO Last administered on 01/28/19 09:15; Admin Dose 17 GM; Start 01/27/19 at 09:00 Prednisolone Acetate (Pred-Forte 1%) 1 drop BID RIGHT EYE Last administered on 01/28/19 09:14; Admin Dose 1 DROP; Start 01/26/19 at 21:00 Zinc Sulfate (Zinc Sulfate) 220 mg DAILY PO Last administered on 01/28/19 09:16; Admin Dose 220 MG; Start 01/27/19 at 09:00 Vancomycin HCl (Vanco Iv Per Pharmacy) VANCOMYCIN PER PHARMACY PER PROTOCOL XX ; Start 01/26/19 at 20:30 Piperacillin Sod/ Tazobactam Sod 50 ml @ 100 mls/hr Q8 IVPB Last administered on 01/28/19 06:00; Admin Dose 100 MLS/HR; Start 01/26/19 at 22:00 Epoetin Indra (Epogen (Esrd)) 4,000 units TuThSa@17 SC ; Start 01/28/19 at 17:00 Insulin Aspart (Novolog Insulin Pen) NOVOLOG *MODERATE* ALGORITHM WITH MEALS BEDTIME SC ; Start 01/26/19 at 21:00 Heparin Sodium (Porcine) (Heparin (5000 Units/1ml)) 5,000 unit BID SC Last administered on 01/28/19 09:18; Admin Dose 5,000 UNIT; Start 01/26/19 at 21:00 Morphine Sulfate (morphine) 2 mg Q4H PRN IV SEVERE PAIN LEVEL 7-10; Start 01/26/19 at 20:30 Miscellaneous Information 1 ea NOTE XX ; Start 01/26/19 at 23:45 Glucose (Glutose) 15 gm Q15M PRN PO DECREASED GLUCOSE; Start 01/26/19 at 23:45 Glucose (Glutose) 22.5 gm Q15M PRN PO DECREASED GLUCOSE; Start 01/26/19 at 23:45 Dextrose (D50w Syringe) 25 ml Q15M PRN IV DECREASED GLUCOSE Last administered on 01/28/19at 07:50; Admin Dose 25 ML; Start 01/26/19 at 23:45 Dextrose (D50w Syringe) 50 ml Q15M PRN IV DECREASED GLUCOSE; Start 01/26/19 at 23:45 Glucagon (Glucagen) 1 mg Q15M PRN IM DECREASED GLUCOSE; Start 01/26/19 at 23:45 Glucose (Glutose) 15 gm Q15M PRN BUCCAL DECREASED GLUCOSE; Start 01/26/19 at 23:45 Alteplase, Recombinant (Cathflo (Activase)) 2 mg MAY REPEAT X1 PRN CATHETER IF CATHETER REMAINS OCCULUDED; Start 01/27/19 at 07:00 Tramadol HCl (Ultram) 50 mg Q6H PO Last administered on 01/28/19at 09:16; Admin Dose 50 MG; Start 01/27/19 at 08:00 Collagenase (Santyl) 1 applic DAILY TOP Last administered on 01/28/19at 09:28; Admin Dose 1 APPLIC; Start 01/28/19 at 09:00 Sodium Hypochlorite (Dakin'S (Dilute 1/40)) 1 applic DAILY IRR Last administered on 01/28/19at 09:14; Admin Dose 1 APPLIC; Start 01/28/19 at 09:00 Lorazepam (Ativan) 1 mg Q8H PRN PO ANXIETY; Start 01/27/19 at 22:30 ALYX NAVARRO NP Jan 28, 2019 13:43
--- NOTE | 2019-01-28 14:17 | CONS ---
DATE OF ADMISSION: 01/26/2019 DATE OF CONSULTATION: 01/28/2019 TYPE OF CONSULTATION: Pulmonary. REASON FOR CONSULTATION: Preoperative evaluation. REQUESTING PHYSICIAN: Dr. Ramos. HISTORY OF PRESENT ILLNESS: Ms. Seth is a 63-year-old female with a history of cholecystectomy, a bdominal hernia status repair, AV fistula, diabetes mellitus, end-stage renal disease, decubitus ulce rs, right eye blindness, hypothyroidism who initially was admitted 01/26/2019 with generalized weakne ss, weight loss and decubitus ulcer. The patient was admitted to the floor and has been treated with broad-spectrum antibiotics, baseline blood pressure medications, insulin. The patient is being foll owed by the ID service and GI service as well for ongoing nausea and vomiting. The patient underwent a KUB in further evaluation and still seeing ascending distal transverse and proximal descending col on. No definite bowel obstruction and now is to undergo EGD. Preoperative consult was asked as the patient has congestive heart failure. PAST MEDICAL HISTORY: As above in HPI. MEDICATIONS CURRENTLY IN HOSPITAL: 1. Epogen. 2. Collagenase. 3. Ativan p.r.n. 4. Amiodarone 200 mg daily. 5. Vitamin C. 6. Celexa. 7. Folic acid. 8. Renavite. 9. Protonix. 10. Polyethylene glycol. 11. Zinc sulfate. 12. Tramadol. 13. Reglan. 14. Zosyn. 15. Lipitor 20 mg at bedtime. 16. Colace. 17. Insulin. 18. Metoprolol. ALLERGIES: CODEINE. SOCIAL HISTORY: No current tobacco, ETOH or illicit drug use. FAMILY HISTORY: No history of sudden cardiac or early CAD. REVIEW OF SYSTEMS: As above in HPI. CONSTITUTIONAL: No fevers, chills. PULMONARY: Mild shortness of breath. CARDIOVASCULAR: Congestive heart failure. GASTROINTESTINAL: No vomiting. GENITOURINARY: Endstage renal disease. PSYCHIATRIC: Possible anxiety. NEUROLOGIC: No documented history of CVA. ENDOCRINE: Diabetes mellitus. PHYSICAL EXAMINATION: VITAL SIGNS: Temperature 97.8, blood pressure 120/62, pulse 66, respiratory rate 20, sat 95%. GENERAL: The patient is alert, awake, in no acute distress. NECK: JVP approximately 9 cm of water. CHEST: Fair movement throughout with modest breath sounds at bases bilaterally. HEART: Regular rate and rhythm. Normal S1, S2, I/ systolic murmur. Nondisplaced PMI. ABDOMEN: Positive bowel sounds, soft. EXTREMITIES: No significant pitting edema. IMAGING: Trace edema, 1+ pulses bilateral posterior tibial. LABORATORY DATA: As above in [facility] with most recently 19. White count 12.1, hemoglobin 8.4, richard telet count 186. Sodium 135, potassium 3.5, creatinine 3.0. IMAGING STUDIES: KUB as above in [facility], and a chest x-ray revealing from the cardiomegaly, interv al worsened of left pleural effusion, mild pulmonary vascular congestion, persistent moderate right p leural effusion. IMPRESSION: 1. Preop evaluation. The patient to undergo EGD whose 2D echo I just read revealing EF lower limits of normal, approximately 50% with no significant contraindicated valvular lesions and negative tropo ottoniel x1 since admit, patient is okay to proceed at a moderate cardiovascular risk. 2. Congestive heart failure, diastolic acute on chronic. 3. Hypertension. 4. Cardiac arrhythmia, on amiodarone, in sinus rhythm by EKG. 5. Hypothyroidism. 6. Diabetes mellitus. 7. Nausea and vomiting. 8. Generalized weakness. 9. Decubitus ulcers. 10. Anemia. 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 RECOMMENDATIONS: 1. At this time, would maintain patient on telemetry monitoring to follow rhythm and rates closely. 2. Continue patient's amiodarone at this time. 3. Patient is to undergo EGD. Will follow up results thereafter. 4. Continue the patient's statin therapy and adjust it according to . 5. Continue the patient's baseline beta harjeet following blood pressure closely. 6. Continue the patient's antibiotics and follow up all culture data. Thank you for allowing me to take part in the care of this patient. I will continue to follow closel y with you, with recommendations to be made as the patient progresses through his inpatient hospital clinical course. Dictated By: ALIREZA PUENTES/VICTORINA Conf#: [id number] DID#: [id number] CC: ALEXUS VALENCIA MD;*EndCC*
[2019-01-28] MEDS ORDERED: DEXTROSE 50% 50 ML SYRINGE ONE (14:39)
--- NOTE | 2019-01-28 14:40 | PREAC ---
Date/Time of Note Date/Time of Note DATE: 01/28/19 TIME: 14:29 Anesthesia Eval and Record Evaluation Time Pre-Procedure Interview DATE: 01/28/19 TIME: 14:29 Age 63 Sex female NPO: 8 hrs Preoperative diagnosis nausea,vomiting Planned procedure EGD Past Medical History Past Medical History: Includes Cardio: HTN, Dyslipidemia, Arrythmia, CHF Endo: Diabetes, Hypothyroid Pulm: Other (recurrent pleural effusion) Renal: ESRD on dialysis, HD last: (1 day prior) Surgery & Anesthesia Issues No known issue Meds Anticoagulation: No Beta Jordyn within 24 hr: Yes Reason Beta Jordyn not given: Bradycarida, Hypotension Reported Medications Insulin Lispro (Humalog Kwikpen U-100) 100 Unit/1 Ml Insuln.pen, 0 SQ SLIDING SCALE, EA IF BS 151-200=1 UNIT,201-250=2 UNITS,251-300=3 UNITS,301-350=4 UNITS,351-400=5 UNITS, IF >400=6 UNITS AND CALL 01/26/19 Dariel Gissell/[place] Oil (Venelex Ointment) 60 Gm Oint..gm., 1 APPLIC TOP NEEDED, #1 TUB 01/26/19 Multivit/Ca Carb/B Cmplx/Fa* (Wendi-Cathi*) 1 Tab Tab, 1 TAB PO DAILY, TAB 01/26/19 Metoclopramide* (Reglan*) 5 Mg Tablet, 5 MG PO BEFORE MEALS, TAB 01/26/19 Protein Supplement (Promod) 946 Ml Liquid, 30 ML PO DAILY 01/26/19 Lactose-Free Food (Nutritional Supplement) 237 Ml Liquid, 1 PO BID 01/26/19 Morphine Sulfate* (Morphine* Liq) 10 Mg/0.5 Ml Disp.syrin, 6 MG SL Q4H PRN for PAIN 7-10/10, ML 01/26/19 Ipratropium-Albuterol (Ipratropium-Albuterol) 0.5-3 Mg/3 Ml Ampul.neb, 3 ML INHALATION TID, #30 VIAL 01/26/19 Heparin Sod,Porcine/0.9 % NaCl (Heparin 5,000 Unit/5 ml-Ns) 5,000 Unit/5 Ml Syringe, 5000 UNIT IV Q8H 01/26/19 Ondansetron Hcl* (Zofran*) 4 Mg Tablet, 4 MG PO Q6H PRN for NAUSEA AND OR VOMITING, TAB 01/26/19 Citalopram Hydrobromide* (Citalopram Hydrobromide*) 20 Mg Tablet, 20 MG PO DAILY, #30 TAB 01/26/19 Bisacodyl* (Bisacodyl*) 5 Mg Tablet.dr, 10 MG PO Q24H PRN for CONSTIPATION, TAB 01/26/19 Diphenhydramine Hcl* (Diphenhydramine Hcl*) 25 Mg Capsule, 25 MG PO Q6 PRN for ITCHING, CAP 01/26/19 Polyethylene Glycol* (Polyethylene Glycol*) 17 Gm Powd.pack, 17 GM PO DAILY, #30 PACKET 11/18/18 Pantoprazole* (Pantoprazole*) 40 Mg Tablet.dr, 40 MG PO DAILY, TAB 11/18/18 Metoprolol Tartrate* (Lopressor*) 25 Mg Tablet, 25 MG PO BID, #60 TAB HOLD IF SBP<110 OR HR<60 11/18/18 Losartan Potassium* (Losartan Potassium*) 50 Mg Tablet, 50 MG PO BID, TAB HOLD IFSBP<110 OR HR<60 11/18/18 Levothyroxine Sodium* (Levothyroxine Sodium*) 100 Mcg Tablet, 100 MCG PO BEFORE BREAKFAST, #30 TAB 11/18/18 Insulin Detemir (Levemir) 100 Unit/1 Ml Vial, 6 UNITS SQ QHS 11/18/18 Folic Acid* (Folic Acid*) 1 Mg Tablet, 1 MG PO DAILY, TAB 11/18/18 Zinc Sulfate* (Zinc Sulfate*) 220 Mg Cap, 220 MG PO DAILY, CAP 11/18/18 Ascorbic Acid (Vitamin C) 500 Mg Tab, 500 MG PO DAILY, TAB 11/18/18 Acetaminophen* (Acetaminophen*) 325 Mg Tablet, 325 MG PO Q4H PRN for PAIN AND OR ELEVATED TEMP, #30 TAB FOR MILD PAIN 1-01/1711/18/18 Trazodone Hcl* (Trazodone Hcl*) 50 Mg Tablet, 50 MG PO QHS, #30 TAB 11/18/18 Tramadol HCl (Tramadol HCl) 50 Mg Tablet, 50 MG PO Q6H PRN for PAIN, #120 TAB 11/18/18 Prednisolone Acetate* (Pred Forte*) 5 Ml Susp, 1 DROP RIGHT EYE BID, EA 11/18/18 Docusate Sodium* (Colace*) 100 Mg Capsule, 100 MG PO BID, #30 CAP 11/18/18 Atorvastatin Calcium* (Atorvastatin Calcium*) 20 Mg Tablet, 20 MG PO QHS, #30 TAB 11/18/18 Amlodipine Besylate* (Norvasc*) 5 Mg Tablet, 5 MG PO QHS, TAB HOLD IF SBP<110 OR HR<60 11/18/18 Amiodarone Hcl* (Amiodarone Hcl*) 200 Mg Tablet, 200 MG PO DAILY, #30 TAB 11/18/18 Discontinued Reported Medications Multivitamins* (Theragran*) 1 Tab Tab, 1 TAB PO DAILY, TAB 11/18/18 Midodrine* (Midodrine*) 10 Mg Tablet, 10 MG PO Q8, TAB 11/18/18 Lorazepam* (Lorazepam*) 1 Mg Tablet, 1 MG PO Q8 PRN for ANXIETY, #60 TAB 11/18/18 Loperamide Hcl* (Loperamide Hcl*) 2 Mg Cap, 2 MG PO Q8, CAP 11/18/18 Simethicone (GAS RELIEF) 80 Mg Tab.chew, 80 MG PO BID, TAB.CHEW 11/18/18 Sodium Chloride (Saline Nasal Mist) 126 Ml Mist, 2 SPRAY NASAL TID, BOTTLE 11/18/18 Albuterol Sulfate* (Albuterol Sulfate* Neb) 0.083%-3 Ml Neb, 2.5 MG NEB Q6 PRN for WHEEZING AND SOB, #30 VIAL 11/18/18 Lactobacillus Acidophilus/Pect (Acidophilus-Pectin Capsule) 1 Each Capsule, 1 EACH PO DAILY, CAP 11/18/18 Clotrimazole (Clotrimazole) Vaginal Cream..g., 1 APPLIC VAG HS, EA 11/18/18 Citalopram Hydrobromide* (Citalopram Hydrobromide*) 10 Mg Tablet, 10 MG PO DAILY, #30 TAB 11/18/18 Clonidine Hcl* (Clonidine Hcl*) 0.1 Mg Tab, 0.1 MG PO Q4H PRN for ELEVATED BLOOD PRESSURE, TAB 11/18/18 Apixaban* (Eliquis*) 2.5 Mg Tablet, 2.5 MG PO BID, TAB 11/18/18 Current Medications Amiodarone HCl (Cordarone) 200 mg DAILY PO Last administered on 01/28/19 09:16; Admin Dose 200 MG; Start 01/27/19 at 09:00 Ascorbic Acid (Vitamin C) 500 mg DAILY PO Last administered on 01/28/19 09:16; Admin Dose 500 MG; Start 01/27/19 at 09:00 Atorvastatin Calcium (Lipitor) 20 mg QHS PO Last administered on 01/27/19 23:01; Admin Dose 20 MG; Start 01/26/19 at 21:00 Bisacodyl (Dulcolax) 10 mg Q24H PRN PO CONSTIPATION; Start 01/26/19 at 20:00 Citalopram Hydrobromide (Celexa) 20 mg DAILY PO Last administered on 01/28/19 09:16; Admin Dose 20 MG; Start 01/27/19 at 09:00 Docusate Sodium (Colace) 100 mg BID PO Last administered on 01/28/19 09:16; Admin Dose 100 MG; Start 01/26/19 at 21:00 Folic Acid (Folic Acid) 1 mg DAILY PO Last administered on 01/28/19 09:16; Admin Dose 1 MG; Start 01/27/19 at 09:00 Insulin Detemir (Levemir) 6 units QHS SC Last administered on 01/27/19 23:21; Admin Dose 6 UNITS; Start 01/26/19 at 21:00 Levothyroxine Sodium (Synthroid) 100 mcg BEFORE BREAKFAST PO Last administered on 01/28/19 06:00; Admin Dose 100 MCG; Start 01/27/19 at 07:00 Metoclopramide HCl (Reglan) 5 mg BEFORE MEALS PO Last administered on 01/27/19 17:36; Admin Dose 5 MG; Start 01/27/19 at 07:30 Metoprolol Tartrate (Lopressor) 25 mg BID PO Last administered on 01/27/19 23:01; Admin Dose 25 MG; Start 01/26/19 at 21:00 Multivit/Ca Carb/ B Cmplx/FA/Prenat (Wendi-Cathi) 1 tab DAILY PO Last administered on 01/28/19 09:16; Admin Dose 1 TAB; Start 01/27/19 at 09:00 Ondansetron HCl (Zofran Tab) 4 mg Q6H PRN PO NAUSEA AND/OR VOMITING Last administered on 01/27/19 23:26; Admin Dose 4 MG; Start 01/26/19 at 20:00 Pantoprazole (Protonix Tab) 40 mg DAILY PO Last administered on 01/28/19 09:16; Admin Dose 40 MG; Start 01/27/19 at 09:00 Polyethylene Glycol (Miralax) 17 gm DAILY PO Last administered on 01/28/19 09:15; Admin Dose 17 GM; Start 01/27/19 at 09:00 Prednisolone Acetate (Pred-Forte 1%) 1 drop BID RIGHT EYE Last administered on 01/28/19 09:14; Admin Dose 1 DROP; Start 01/26/19 at 21:00 Zinc Sulfate (Zinc Sulfate) 220 mg DAILY PO Last administered on 01/28/19 09:16; Admin Dose 220 MG; Start 01/27/19 at 09:00 Vancomycin HCl (Vanco Iv Per Pharmacy) VANCOMYCIN PER PHARMACY PER PROTOCOL XX ; Start 01/26/19 at 20:30 Piperacillin Sod/ Tazobactam Sod 50 ml @ 100 mls/hr Q8 IVPB Last administered on 01/28/19at 06:00; Admin Dose 100 MLS/HR; Start 01/26/19 at 22:00 Epoetin Indra (Epogen (Esrd)) 4,000 units TuThSa@17 SC ; Start 01/28/19 at 17:00 Insulin Aspart (Novolog Insulin Pen) NOVOLOG *MODERATE* ALGORITHM WITH MEALS BEDTIME SC ; Start 01/26/19 at 21:00 Heparin Sodium (Porcine) (Heparin (5000 Units/1ml)) 5,000 unit BID SC Last administered on 01/28/19at 09:18; Admin Dose 5,000 UNIT; Start 01/26/19 at 21:00 Morphine Sulfate (morphine) 2 mg Q4H PRN IV SEVERE PAIN LEVEL 7-10; Start 01/26/19 at 20:30 Miscellaneous Information 1 ea NOTE XX ; Start 01/26/19 at 23:45 Glucose (Glutose) 15 gm Q15M PRN PO DECREASED GLUCOSE; Start 01/26/19 at 23:45 Glucose (Glutose) 22.5 gm Q15M PRN PO DECREASED GLUCOSE; Start 01/26/19 at 23:45 Dextrose (D50w Syringe) 25 ml Q15M PRN IV DECREASED GLUCOSE Last administered on 01/28/19at 07:50; Admin Dose 25 ML; Start 01/26/19 at 23:45 Dextrose (D50w Syringe) 50 ml Q15M PRN IV DECREASED GLUCOSE; Start 01/26/19 at 23:45 Glucagon (Glucagen) 1 mg Q15M PRN IM DECREASED GLUCOSE; Start 01/26/19 at 23:45 Glucose (Glutose) 15 gm Q15M PRN BUCCAL DECREASED GLUCOSE; Start 01/26/19 at 23:45 Alteplase, Recombinant (Cathflo (Activase)) 2 mg MAY REPEAT X1 PRN CATHETER IF CATHETER REMAINS OCCULUDED; Start 01/27/19 at 07:00 Tramadol HCl (Ultram) 50 mg Q6H PO Last administered on 01/28/19at 09:16; Admin Dose 50 MG; Start 01/27/19 at 08:00 Collagenase (Santyl) 1 applic DAILY TOP Last administered on 01/28/19at 09:28; Admin Dose 1 APPLIC; Start 01/28/19 at 09:00 Sodium Hypochlorite (Dakin'S (Dilute 1/40)) 1 applic DAILY IRR Last administered on 01/28/19at 09:14; Admin Dose 1 APPLIC; Start 01/28/19 at 09:00 Lorazepam (Ativan) 1 mg Q8H PRN PO ANXIETY; Start 01/27/19 at 22:30 Mupirocin (Bactroban) 1 applic BID TOP ; Start 01/28/19 at 21:00 Meds reviewed: Yes Allergies Coded Allergies: codeine (Verified Allergy, Unknown, 01/26/19) PT TAKES MORPHINE AT HOME, HAS HAD HYDROCODONE AT [facility] IN A PREVIOUS VISIT Allergies Reviewed: Yes Labs/Studies Labs Reviewed: Reviewed by anesthesiologist (accucheck 74. will give 1/2 amp D50) Result Diagram: 01/26/19 1617 01/28/19 1149 Laboratory Tests 01/28/19 11:49 test: N/A Studies: ECG, 2D Echo Pre-procedure Exam Last vitals Vital Signs Date Temp Pulse Resp B/P (MAP) Pulse Ox O2 O2 Flow FiO2 Time Delivery Rate 01/28/19 97.8 66 20 128/62 95 Nasal 3.0 10:58 (84) Cannula Airway: Adequate mouth opening, Adequate thyromental dist Mallampati: Mallampati II Teeth: Normal Lung: Normal Heart: Normal ASA Physical Status ASA physical status: 4 Emergency: None Planned Anesthetic General/MAC: Mask Planned Pain Management Parenteral pain med Pre-operative Attestations Prior to commencing anesthesia and surgery, the patient was re-evaluated, there was verification of: *The patient's identity *The results of appropriate recent lab work and preoperative vital signs *The above evaluation not changing prior to induction *Anesthetic plan, risk benefits, alternative and complications discussed with patient/family; questions answered; patient/family understands, accepts and wishes to proceed. SARAY TINOCO MD Jan 28, 2019 14:40
[2019-01-28] MEDS ORDERED: FENTAnyl 50 MCG/ML VIAL ONE (14:44)
[2019-01-28] MEDS ORDERED: ETOMIDATE 20 MG INJ ONE (14:44)
[2019-01-28] MEDS ORDERED: DEXTROSE 50% 50 ML SYRINGE IV ONE (15:00)
[2019-01-28] MEDS ORDERED: ONDANSETRON 4 MG INJ IV PRN (15:00)
[2019-01-28] MEDS ORDERED: EPHEDrine SULFATE 50 MG/5 ML SYG IV PRN (15:00)
[2019-01-28] MEDS ORDERED: LABETALOL HCL 20MG INJ IV PRN (15:00)
[2019-01-28] MEDS ORDERED: hydrALAzine 20 MG INJ IV PRN (15:00)
--- NOTE | 2019-01-28 15:07 | PAC ---
Date/Time of Note Date/Time of Note DATE: 01/28/19 TIME: 15:06 Post-Anesthesia Notes Post-Anesthesia Note Last documented vital signs Vital Signs Date Temp Pulse Resp B/P (MAP) Pulse Ox O2 O2 Flow FiO2 Time Delivery Rate 01/28/19 97.8 66 20 128/62 95 Nasal 3.0 10:58 (84) Cannula Activity: WNL Respiratory function: WNL Cardiovascular function: WNL Mental status: Baseline Pain reasonably controlled: Yes Hydration appropriate: Yes Nausea/Vomiting absent: Yes Comments BP: 105/58 HR: 62 RR: 16 T: 98 Sao2; 96% SARAY TINOCO MD Jan 28, 2019 15:07
[2019-01-28] MEDS ORDERED: EPHEDrine 25 MG/5 ML SYG ONE (15:17)
[2019-01-28] MEDS ORDERED: HYDROmorphONE 1 MG/5 ML IV SYRINGE IV PRN (15:30)
[2019-01-28] MEDS ORDERED: EPOETIN 4000 UNITS/1 ML INJ (ESRD) SC SCH (17:00)
--- NOTE | 2019-01-28 17:33 | PREAC ---
Date/Time of Note Date/Time of Note DATE: 01/28/19 TIME: 17:31 Anesthesia Eval and Record Evaluation Time Pre-Procedure Interview DATE: 01/28/19 TIME: 17:31 Age 63 Sex female NPO: 8 hrs Preoperative diagnosis large necrotic wounds on bilateral buttocks Planned procedure EXCISIONAL DEBRIDEMENT OF SACRAL WOUND AND RIGHT ISCHIAL WOUND Past Medical History Past Medical History: Includes Cardio: HTN, CAD, CHF Endo: Diabetes, Hypothyroid Pulm: Other (recurrent pleural effusion) Renal: ESRD on dialysis Surgery & Anesthesia Issues No known issue Meds Anticoagulation: No Beta Jordyn within 24 hr: No Reason Beta Jordyn not given: Pt. not on B-Jordyn Reported Medications Insulin Lispro (Humalog Kwikpen U-100) 100 Unit/1 Ml Insuln.pen, 0 SQ SLIDING SCALE, EA IF BS 151-200=1 UNIT,201-250=2 UNITS,251-300=3 UNITS,301-350=4 UNITS,351-400=5 UNITS, IF >400=6 UNITS AND CALL 01/26/19 Dariel Kirkland/[place] Oil (Venelex Ointment) 60 Gm Oint..gm., 1 APPLIC TOP NEEDED, #1 TUB 01/26/19 Multivit/Ca Carb/B Cmplx/Fa* (Wendi-Cathi*) 1 Tab Tab, 1 TAB PO DAILY, TAB 01/26/19 Metoclopramide* (Reglan*) 5 Mg Tablet, 5 MG PO BEFORE MEALS, TAB 01/26/19 Protein Supplement (Promod) 946 Ml Liquid, 30 ML PO DAILY 01/26/19 Lactose-Free Food (Nutritional Supplement) 237 Ml Liquid, 1 PO BID 01/26/19 Morphine Sulfate* (Morphine* Liq) 10 Mg/0.5 Ml Disp.syrin, 6 MG SL Q4H PRN for PAIN 7-10/10, ML 01/26/19 Ipratropium-Albuterol (Ipratropium-Albuterol) 0.5-3 Mg/3 Ml Ampul.neb, 3 ML INHALATION TID, #30 VIAL 01/26/19 Heparin Sod,Porcine/0.9 % NaCl (Heparin 5,000 Unit/5 ml-Ns) 5,000 Unit/5 Ml Syringe, 5000 UNIT IV Q8H 01/26/19 Ondansetron Hcl* (Zofran*) 4 Mg Tablet, 4 MG PO Q6H PRN for NAUSEA AND OR VOMITING, TAB 01/26/19 Citalopram Hydrobromide* (Citalopram Hydrobromide*) 20 Mg Tablet, 20 MG PO DAILY, #30 TAB 01/26/19 Bisacodyl* (Bisacodyl*) 5 Mg Tablet.dr, 10 MG PO Q24H PRN for CONSTIPATION, TAB 01/26/19 Diphenhydramine Hcl* (Diphenhydramine Hcl*) 25 Mg Capsule, 25 MG PO Q6 PRN for ITCHING, CAP 01/26/19 Polyethylene Glycol* (Polyethylene Glycol*) 17 Gm Powd.pack, 17 GM PO DAILY, #30 PACKET 11/18/18 Pantoprazole* (Pantoprazole*) 40 Mg Tablet.dr, 40 MG PO DAILY, TAB 11/18/18 Metoprolol Tartrate* (Lopressor*) 25 Mg Tablet, 25 MG PO BID, #60 TAB HOLD IF SBP<110 OR HR<60 11/18/18 Losartan Potassium* (Losartan Potassium*) 50 Mg Tablet, 50 MG PO BID, TAB HOLD IFSBP<110 OR HR<60 11/18/18 Levothyroxine Sodium* (Levothyroxine Sodium*) 100 Mcg Tablet, 100 MCG PO BEFORE BREAKFAST, #30 TAB 11/18/18 Insulin Detemir (Levemir) 100 Unit/1 Ml Vial, 6 UNITS SQ QHS 11/18/18 Folic Acid* (Folic Acid*) 1 Mg Tablet, 1 MG PO DAILY, TAB 11/18/18 Zinc Sulfate* (Zinc Sulfate*) 220 Mg Cap, 220 MG PO DAILY, CAP 11/18/18 Ascorbic Acid (Vitamin C) 500 Mg Tab, 500 MG PO DAILY, TAB 11/18/18 Acetaminophen* (Acetaminophen*) 325 Mg Tablet, 325 MG PO Q4H PRN for PAIN AND OR ELEVATED TEMP, #30 TAB FOR MILD PAIN 1-01/1711/18/18 Trazodone Hcl* (Trazodone Hcl*) 50 Mg Tablet, 50 MG PO QHS, #30 TAB 11/18/18 Tramadol HCl (Tramadol HCl) 50 Mg Tablet, 50 MG PO Q6H PRN for PAIN, #120 TAB 11/18/18 Prednisolone Acetate* (Pred Forte*) 5 Ml Susp, 1 DROP RIGHT EYE BID, EA 11/18/18 Docusate Sodium* (Colace*) 100 Mg Capsule, 100 MG PO BID, #30 CAP 11/18/18 Atorvastatin Calcium* (Atorvastatin Calcium*) 20 Mg Tablet, 20 MG PO QHS, #30 TAB 11/18/18 Amlodipine Besylate* (Norvasc*) 5 Mg Tablet, 5 MG PO QHS, TAB HOLD IF SBP<110 OR HR<60 11/18/18 Amiodarone Hcl* (Amiodarone Hcl*) 200 Mg Tablet, 200 MG PO DAILY, #30 TAB 11/18/18 Discontinued Reported Medications Multivitamins* (Theragran*) 1 Tab Tab, 1 TAB PO DAILY, TAB 11/18/18 Midodrine* (Midodrine*) 10 Mg Tablet, 10 MG PO Q8, TAB 11/18/18 Lorazepam* (Lorazepam*) 1 Mg Tablet, 1 MG PO Q8 PRN for ANXIETY, #60 TAB 11/18/18 Loperamide Hcl* (Loperamide Hcl*) 2 Mg Cap, 2 MG PO Q8, CAP 11/18/18 Simethicone (GAS RELIEF) 80 Mg Tab.chew, 80 MG PO BID, TAB.CHEW 11/18/18 Sodium Chloride (Saline Nasal Mist) 126 Ml Mist, 2 SPRAY NASAL TID, BOTTLE 11/18/18 Albuterol Sulfate* (Albuterol Sulfate* Neb) 0.083%-3 Ml Neb, 2.5 MG NEB Q6 PRN for WHEEZING AND SOB, #30 VIAL 11/18/18 Lactobacillus Acidophilus/Pect (Acidophilus-Pectin Capsule) 1 Each Capsule, 1 EACH PO DAILY, CAP 11/18/18 Clotrimazole (Clotrimazole) Vaginal Cream..g., 1 APPLIC VAG HS, EA 11/18/18 Citalopram Hydrobromide* (Citalopram Hydrobromide*) 10 Mg Tablet, 10 MG PO DAILY, #30 TAB 11/18/18 Clonidine Hcl* (Clonidine Hcl*) 0.1 Mg Tab, 0.1 MG PO Q4H PRN for ELEVATED BLOOD PRESSURE, TAB 11/18/18 Apixaban* (Eliquis*) 2.5 Mg Tablet, 2.5 MG PO BID, TAB 11/18/18 Current Medications Amiodarone HCl (Cordarone) 200 mg DAILY PO Last administered on 01/28/19 09:16; Admin Dose 200 MG; Start 01/27/19 at 09:00 Ascorbic Acid (Vitamin C) 500 mg DAILY PO Last administered on 01/28/19 09:16; Admin Dose 500 MG; Start 01/27/19 at 09:00 Atorvastatin Calcium (Lipitor) 20 mg QHS PO Last administered on 01/27/19 23:01; Admin Dose 20 MG; Start 01/26/19 at 21:00 Bisacodyl (Dulcolax) 10 mg Q24H PRN PO CONSTIPATION; Start 01/26/19 at 20:00 Citalopram Hydrobromide (Celexa) 20 mg DAILY PO Last administered on 01/28/19 09:16; Admin Dose 20 MG; Start 01/27/19 at 09:00 Docusate Sodium (Colace) 100 mg BID PO Last administered on 01/28/19 09:16; A dmin Dose 100 MG; Start 01/26/19 at 21:00 Folic Acid (Folic Acid) 1 mg DAILY PO Last administered on 01/28/19 09:16; Admin Dose 1 MG; Start 01/27/19 at 09:00 Insulin Detemir (Levemir) 6 units QHS SC Last administered on 01/27/19 23:21; Admin Dose 6 UNITS; Start 01/26/19 at 21:00 Levothyroxine Sodium (Synthroid) 100 mcg BEFORE BREAKFAST PO Last administered on 01/28/19 06:00; Admin Dose 100 MCG; Start 01/27/19 at 07:00 Metoclopramide HCl (Reglan) 5 mg BEFORE MEALS PO Last administered on 01/28/19 17:08; Admin Dose 5 MG; Start 01/27/19 at 07:30 Metoprolol Tartrate (Lopressor) 25 mg BID PO Last administered on 01/27/19 23:01; Admin Dose 25 MG; Start 01/26/19 at 21:00 Multivit/Ca Carb/ B Cmplx/FA/Prenat (Wendi-Cathi) 1 tab DAILY PO Last administered on 01/28/19 09:16; Admin Dose 1 TAB; Start 01/27/19 at 09:00 Ondansetron HCl (Zofran Tab) 4 mg Q6H PRN PO NAUSEA AND/OR VOMITING Last administered on 01/27/19 23:26; Admin Dose 4 MG; Start 01/26/19 at 20:00 Pantoprazole (Protonix Tab) 40 mg DAILY PO Last administered on 01/28/19 09:16; Admin Dose 40 MG; Start 01/27/19 at 09:00 Polyethylene Glycol (Miralax) 17 gm DAILY PO Last administered on 01/28/19 09:15; Admin Dose 17 GM; Start 01/27/19 at 09:00 Prednisolone Acetate (Pred-Forte 1%) 1 drop BID RIGHT EYE Last administered on 01/28/19 09:14; Admin Dose 1 DROP; Start 01/26/19 at 21:00 Zinc Sulfate (Zinc Sulfate) 220 mg DAILY PO Last administered on 01/28/19 09:16; Admin Dose 220 MG; Start 01/27/19 at 09:00 Vancomycin HCl (Vanco Iv Per Pharmacy) VANCOMYCIN PER PHARMACY PER PROTOCOL XX ; Start 01/26/19 at 20:30 Piperacillin Sod/ Tazobactam Sod 50 ml @ 100 mls/hr Q8 IVPB Last administered on 01/28/19 16:06; Admin Dose 100 MLS/HR; Start 01/26/19 at 22:00 Epoetin Indra (Epogen (Esrd)) 4,000 units TuThSa@17 SC Last administered on 01/28/19 17:08; Admin Dose 4,000 UNITS; Start 01/28/19 at 17:00 Insulin Aspart (Novolog Insulin Pen) NOVOLOG *MODERATE* ALGORITHM WITH MEALS BEDTIME SC ; Start 01/26/19 at 21:00 Heparin Sodium (Porcine) (Heparin (5000 Units/1ml)) 5,000 unit BID SC Last administered on 01/28/19 09:18; Admin Dose 5,000 UNIT; Start 01/26/19 at 21:00 Morphine Sulfate (morphine) 2 mg Q4H PRN IV SEVERE PAIN LEVEL 7-10; Start 01/26/19 at 20:30 Miscellaneous Information 1 ea NOTE XX ; Start 01/26/19 at 23:45 Glucose (Glutose) 15 gm Q15M PRN PO DECREASED GLUCOSE; Start 01/26/19 at 23:45 Glucose (Glutose) 22.5 gm Q15M PRN PO DECREASED GLUCOSE; Start 01/26/19 at 23:45 Dextrose (D50w Syringe) 25 ml Q15M PRN IV DECREASED GLUCOSE Last administered on 01/28/19at 07:50; Admin Dose 25 ML; Start 01/26/19 at 23:45 Dextrose (D50w Syringe) 50 ml Q15M PRN IV DECREASED GLUCOSE; Start 01/26/19 at 23:45 Glucagon (Glucagen) 1 mg Q15M PRN IM DECREASED GLUCOSE; Start 01/26/19 at 23:45 Glucose (Glutose) 15 gm Q15M PRN BUCCAL DECREASED GLUCOSE; Start 01/26/19 at 23:45 Alteplase, Recombinant (Cathflo (Activase)) 2 mg MAY REPEAT X1 PRN CATHETER IF CATHETER REMAINS OCCULUDED; Start 01/27/19 at 07:00 Tramadol HCl (Ultram) 50 mg Q6H PO Last administered on 01/28/19at 16:00; Admin Dose 50 MG; Start 01/27/19 at 08:00 Collagenase (Santyl) 1 applic DAILY TOP Last administered on 01/28/19at 09:28; Admin Dose 1 APPLIC; Start 01/28/19 at 09:00 Sodium Hypochlorite (Dakin'S (Dilute )) 1 applic DAILY IRR Last administered on 01/28/19at 09:14; Admin Dose 1 APPLIC; Start 01/28/19 at 09:00 Lorazepam (Ativan) 1 mg Q8H PRN PO ANXIETY; Start 01/27/19 at 22:30 Mupirocin (Bactroban) 1 applic BID TOP ; Start 01/28/19 at 21:00 Ondansetron HCl (Zofran Inj) 4 mg PACU ORDER PRN IV NAUSEA/VOMITING; Start at 15:00; Stop 01/28/19 at 22:00 Labetalol HCl (Labetalol) 5 mg PACU ORDER PRN IV HIGH BLOOD PRESSURE; Start 01/28/19 at 15:00; Stop 01/28/19 at 22:00 Hydralazine HCl (Apresoline) 5 mg PACU ORDER PRN IV HIGH BLOOD PRESSURE; Start 01/28/19 at 15:00; Stop 01/28/19 at 22:00 Ephedrine Sulfate 5 mg PACU ORDER PRN IV BLOOD PRESSURE SUPPORT; Start 01/28/19 at 15:00; Stop 01/28/19 at 22:00 Hydromorphone HCl (Dilaudid) 0.2 mg PACU PRN IV MILD PAIN 1-3; Start 01/28/19 at 15:30; Stop 01/28/19 at 20:00 Miscellaneous Information (*Rx Drug Level Order Reminder*) VANCO RANDOM @ 0,500 ONCE ONCE XX ; Start 01/29/19 at 05:00; Stop 01/29/19 at 05:01 Meds reviewed: Yes Allergies Coded Allergies: codeine (Verified Allergy, Unknown, 01/26/19) PT TAKES MORPHINE AT HOME, HAS HAD HYDROCODONE AT [facility] IN A PREVIOUS VISIT Allergies Reviewed: Yes Labs/Studies Labs Reviewed: Reviewed by anesthesiologist Result Diagram: 01/26/19 1617 01/28/19 1149 Laboratory Tests 01/28/19 11:49 test: N/A Studies: ECG (SR - 1st degree AVB), CXR (Interval worsening to a left pleural effusion which is now moderate to large with a persistent left lower lobe infiltrate. / Persistent moderate right pleural effusion with associated compressive atelectasis. Mild pulmonary vascular congestion is suggested), 2D Echo (EF 55%) Pre-procedure Exam Last vitals Vital Signs Date Temp Pulse Resp B/P (MAP) Pulse Ox O2 O2 Flow FiO2 Time Delivery Rate 01/28/19 68 16:00 01/28/19 Nasal 4.0 15:44 Cannula 01/28/19 18 108/56 94 15:32 (73) 01/28/19 98.2 15:29 Airway: Adequate mouth opening Mallampati: Mallampati II Teeth: Normal Lung: Normal Heart: Normal ASA Physical Status ASA physical status: 3 Emergency: None Planned Anesthetic General/MAC: ETT Pre-operative Attestations Prior to commencing anesthesia and surgery, the patient was re-evaluated, there was verification of: *The patient's identity *The results of appropriate recent lab work and preoperative vital signs *The above evaluation not changing prior to induction *Anesthetic plan, risk benefits, alternative and complications discussed with patient/family; questions answered; patient/family understands, accepts and wishes to proceed. ELA BELTRÁN Jan 28, 2019 17:33
--- NOTE | 2019-01-28 19:26 | CONS ---
Assessment/Plan Assessment/Plan Assessment/Plan (Daily) - ESRD on Hemodialysis - Anemia of Chronic Disease - DM / DM Nephropathy - CAD / CHF - Hypoalbuminia - Hypothyroid - Failure to thrive - Leukocytosis - Non healing wound PLAN: Bedside dialysis Aim for UD ~ 1-2 liter as tolerates IV Antibiotics Local wound care Follow up on H/H ( on long acting EPO as out patient ) High protein diet / Supplements Had HD yesterday Plan for HD next 01/29/2019 Monitor H/H High Protein diet Consultation Date/Type/Reason Admit Date/Time Jan 26, 2019 at 17:32 Initial Consult Date 01/27/19 Type of Consult - Nephrology ( Dialysis Dependent ) Requesting Provider: ALEXUS VALENCIA MD Date/Time of Note DATE: 01/28/19 TIME: 19:24 24 HR Interval Summary Constitutional: no complaints, improved Exam/Review of Systems Exam Vitals Vital Signs Date Temp Pulse Resp B/P (MAP) Pulse Ox O2 O2 Flow FiO2 Time Delivery Rate 01/28/19 68 16:00 01/28/19 Nasal 4.0 15:44 Cannula 01/28/19 18 108/56 94 15:32 (73) 01/28/19 98.2 15:29 Intake and Output 01/27/19 01/27/19 01/28/19 1515:00 23:00 07:00 IntakeIntake Total 300 ml 580 ml 180 ml OutputOutput Total 2400 ml 0 ml BalanceBalance -2100 ml 580 ml 180 ml Constitutional: alert Psych: no complaints Head: normocephalic Respiratory: crackles/rales Cardiovascular: regular rate and rhythm, edema, systolic murmur Gastrointestinal: soft Results Result Diagram: 01/26/19 1617 01/28/19 1149 Results 24hrs Laboratory Tests Test 01/27/19 22:46 01/28/19 07:46 01/28/19 08:19 01/28/19 11:49 Bedside Glucose 136 51 L 92 Sodium Level 137 Potassium Level 3.4 L Chloride Level 102 Carbon Dioxide Level 28 Anion Gap 7 Blood Urea Nitrogen 21 H Creatinine 2.27 H Est Glomerular 22 L Filtrat Rate mL/min Glucose Level 69 #L Calcium Level 8.9 Test 01/28/19 14:37 01/28/19 15:14 01/28/19 17:09 01/28/19 18:22 Bedside Glucose 74 116 103 Creatine Kinase 21 L Creatine Kinase 5.5 Index Creatinine Kinase MB 1.16 (Mass) Troponin I < 0.012 Medications Medication Current Medications Amiodarone HCl (Cordarone) 200 mg DAILY PO Last administered on 01/28/19 09:16; Admin Dose 200 MG; Start 01/27/19 at 09:00 Ascorbic Acid (Vitamin C) 500 mg DAILY PO Last administered on 01/28/19 09:16; Admin Dose 500 MG; Start 01/27/19 at 09:00 Atorvastatin Calcium (Lipitor) 20 mg QHS PO Last administered on 01/27/19 23:01; Admin Dose 20 MG; Start 01/26/19 at 21:00 Bisacodyl (Dulcolax) 10 mg Q24H PRN PO CONSTIPATION; Start 01/26/19 at 20:00 Citalopram Hydrobromide (Celexa) 20 mg DAILY PO Last administered on 01/28/19 09:16; Admin Dose 20 MG; Start 01/27/19 at 09:00 Docusate Sodium (Colace) 100 mg BID PO Last administered on 01/28/19 09:16; Admin Dose 100 MG; Start 01/26/19 at 21:00 Folic Acid (Folic Acid) 1 mg DAILY PO Last administered on 01/28/19 09:16; Admin Dose 1 MG; Start 01/27/19 at 09:00 Insulin Detemir (Levemir) 6 units QHS SC Last administered on 01/27/19 23:21; Admin Dose 6 UNITS; Start 01/26/19 at 21:00 Levothyroxine Sodium (Synthroid) 100 mcg BEFORE BREAKFAST PO Last administered on 01/28/19 06:00; Admin Dose 100 MCG; Start 01/27/19 at 07:00 Metoclopramide HCl (Reglan) 5 mg BEFORE MEALS PO Last administered on 17:08; Admin Dose 5 MG; Start 01/27/19 at 07:30 Metoprolol Tartrate (Lopressor) 25 mg BID PO Last administered on 01/27/19 23:01; Admin Dose 25 MG; Start 01/26/19 at 21:00 Multivit/Ca Carb/ B Cmplx/FA/Prenat (Wendi-Cathi) 1 tab DAILY PO Last administered on 01/28/19 09:16; Admin Dose 1 TAB; Start 01/27/19 at 09:00 Ondansetron HCl (Zofran Tab) 4 mg Q6H PRN PO NAUSEA AND/OR VOMITING Last administered on 01/27/19 23:26; Admin Dose 4 MG; Start 01/26/19 at 20:00 Pantoprazole (Protonix Tab) 40 mg DAILY PO Last administered on 01/28/19 09:16; Admin Dose 40 MG; Start 01/27/19 at 09:00 Polyethylene Glycol (Miralax) 17 gm DAILY PO Last administered on 01/28/19 09:15; Admin Dose 17 GM; Start 01/27/19 at 09:00 Prednisolone Acetate (Pred-Forte 1%) 1 drop BID RIGHT EYE Last administered on 01/28/19 09:14; Admin Dose 1 DROP; Start 01/26/19 at 21:00 Zinc Sulfate (Zinc Sulfate) 220 mg DAILY PO Last administered on 01/28/19 09:16; Admin Dose 220 MG; Start 01/27/19 at 09:00 Vancomycin HCl (Vanco Iv Per Pharmacy) VANCOMYCIN PER PHARMACY PER PROTOCOL XX ; Start 01/26/19 at 20:30 Piperacillin Sod/ Tazobactam Sod 50 ml @ 100 mls/hr Q8 IVPB Last administered on 01/28/19 16:06; Admin Dose 100 MLS/HR; Start 01/26/19 at 22:00 Epoetin Indra (Epogen (Esrd)) 4,000 units TuThSa@17 SC Last administered on 01/28/19 17:08; Admin Dose 4,000 UNITS; Start 01/28/19 at 17:00 Insulin Aspart (Novolog Insulin Pen) NOVOLOG *MODERATE* ALGORITHM WITH MEALS BEDTIME SC ; Start 01/26/19 at 21:00 Heparin Sodium (Porcine) (Heparin (5000 Units/1ml)) 5,000 unit BID SC Last administered on 01/28/19 09:18; Admin Dose 5,000 UNIT; Start 01/26/19 at 21:00 Morphine Sulfate (morphine) 2 mg Q4H PRN IV SEVERE PAIN LEVEL 7-10; Start 01/26/19 at 20:30 Miscellaneous Information 1 ea NOTE XX ; Start 01/26/19 at 23:45 Glucose (Glutose) 15 gm Q15M PRN PO DECREASED GLUCOSE; Start 01/26/19 at 23:45 Glucose (Glutose) 22.5 gm Q15M PRN PO DECREASED GLUCOSE; Start 01/26/19 at 23:45 Dextrose (D50w Syringe) 25 ml Q15M PRN IV DECREASED GLUCOSE Last administered on 01/28/19at 07:50; Admin Dose 25 ML; Start 01/26/19 at 23:45 Dextrose (D50w Syringe) 50 ml Q15M PRN IV DECREASED GLUCOSE; Start 01/26/19 at 23:45 Glucagon (Glucagen) 1 mg Q15M PRN IM DECREASED GLUCOSE; Start 01/26/19 at 23:45 Glucose (Glutose) 15 gm Q15M PRN BUCCAL DECREASED GLUCOSE; Start 01/26/19 at 23:45 Alteplase, Recombinant (Cathflo (Activase)) 2 mg MAY REPEAT X1 PRN CATHETER IF CATHETER REMAINS OCCULUDED; Start 01/27/19 at 07:00 Tramadol HCl (Ultram) 50 mg Q6H PO Last administered on 01/28/19at 16:00; Admin Dose 50 MG; Start 01/27/19 at 08:00 Collagenase (Santyl) 1 applic DAILY TOP Last administered on 01/28/19at 09:28; Admin Dose 1 APPLIC; Start 01/28/19 at 09:00 Sodium Hypochlorite (Dakin'S (Dilute )) 1 applic DAILY IRR Last administered on 01/28/19at 09:14; Admin Dose 1 APPLIC; Start 01/28/19 at 09:00 Lorazepam (Ativan) 1 mg Q8H PRN PO ANXIETY; Start 01/27/19 at 22:30 Mupirocin (Bactroban) 1 applic BID TOP ; Start 01/28/19 at 21:00 Ondansetron HCl (Zofran Inj) 4 mg PACU ORDER PRN IV NAUSEA/VOMITING; Start 01/28/19 at 15:00; Stop 01/28/19 at 22:00 Labetalol HCl (Labetalol) 5 mg PACU ORDER PRN IV HIGH BLOOD PRESSURE; Start 01/28/19 at 15:00; Stop 01/28/19 at 22:00 Hydralazine HCl (Apresoline) 5 mg PACU ORDER PRN IV HIGH BLOOD PRESSURE; Start 01/28/19 at 15:00; Stop 01/28/19 at 22:00 Ephedrine Sulfate 5 mg PACU ORDER PRN IV BLOOD PRESSURE SUPPORT; Start 01/28/19 at 15:00; Stop 01/28/19 at 22:00 Hydromorphone HCl (Dilaudid) 0.2 mg PACU PRN IV MILD PAIN 1-3; Start 01/28/19 at 15:30; Stop 01/28/19 at 20:00 Miscellaneous Information (*Rx Drug Level Order Reminder*) VANCO RANDOM @ 0,500 ONCE ONCE XX ; Start 01/29/19 at 05:00; Stop 01/29/19 at 05:01 ANIBAL ALMANZAR MD Jan 28, 2019 19:26
[2019-01-28] MEDS: MUPIROCIN 2% 22 GM OINT TOP SCH (21:40)
[2019-01-28] MEDS: ATORVASTATIN 20 MG TAB PO SCH (21:40)
[2019-01-28] MEDS: INSULIN DETEMIR [LEVEMIR] (100 UNITS/ML) SYG SC SCH (21:59)
[2019-01-29] VITALS (35 sets, daily range): BP systolic 102–178; BP diastolic 18–85; PULSE 63–90; RESP 13–22
[2019-01-29] MEDS: traMADol 50 MG TAB PO SCH ×4 (02:00→20:00)
[2019-01-29] MEDS: PIPER-TAZO 2.25 GM (PMX) 50 ML IVPB SCH (06:18)
[2019-01-29] MEDS: LEVOTHYROXINE 100 MCG TAB PO SCH (06:18)
--- NOTE | 2019-01-29 07:20 | CONS ---
Assessment/Plan Assessment/Plan Assessment/Plan (Daily) - ESRD on Hemodialysis - Anemia of Chronic Disease - DM / DM Nephropathy - CAD / CHF - Hypoalbuminia - Hypothyroid - Failure to thrive - Leukocytosis - Non healing wound PLAN: Bedside dialysis Aim for UD ~ 1-2 liter as tolerates IV Antibiotics Local wound care Follow up on H/H ( on long acting EPO as out patient ) High protein diet / Supplements Had HD yesterday Plan for HD next 01/29/2019 Monitor H/H High Protein diet More awake & alert Poor appetite with low albumin High protein diet Add Nepro supplement Add Megace Increase EPO Check IRON Bedside dialysis 01/29/2019 using 3K+ bath today Consultation Date/Type/Reason Admit Date/Time Jan 26, 2019 at 17:32 Initial Consult Date 01/27/19 Type of Consult - Nephrology ( Dialysis Dependent ) Requesting Provider: ALEXUS VALENCIA MD Date/Time of Note DATE: 01/29/19 TIME: 07:16 24 HR Interval Summary Constitutional: no complaints, improved Exam/Review of Systems Exam Vitals Vital Signs Date Temp Pulse Resp B/P (MAP) Pulse Ox O2 O2 Flow FiO2 Time Delivery Rate 01/29/19 98.0 65 18 111/53 95 04:11 (72) 01/28/19 Nasal 4.0 20:00 Cannula Intake and Output 01/28/19 01/28/19 01/29/19 1515:00 23:00 07:00 IntakeIntake Total 60 ml OutputOutput Total 0 ml BalanceBalance 60 ml Constitutional: alert, oriented Psych: no complaints Head: normocephalic Respiratory: crackles/rales Cardiovascular: regular rate and rhythm, edema, systolic murmur Gastrointestinal: soft Results Result Diagram: 01/26/19 7157 01/28/19 1149 Results 24hrs Laboratory Tests Test 01/28/19 07:46 01/28/19 08:19 01/28/19 11:49 01/28/19 14:37 Bedside Glucose 51 L 92 74 Sodium Level 137 Potassium Level 3.4 L Chloride Level 102 Carbon Dioxide Level 28 Anion Gap 7 Blood Urea Nitrogen 21 H Creatinine 2.27 H Est Glomerular 22 L Filtrat Rate mL/min Glucose Level 69 #L Calcium Level 8.9 Test 01/28/19 15:14 01/28/19 17:09 01/28/19 18:22 01/28/19 21:13 Bedside Glucose 116 103 115 Creatine Kinase 21 L Creatine Kinase 5.5 Index Creatinine Kinase MB 1.16 (Mass) Troponin I < 0.012 Test 01/29/19 00:51 01/29/19 05:25 Creatine Kinase < 20 L Creatine Kinase Index Creatinine Kinase MB 0.98 (Mass) Troponin I < 0.012 Triglycerides Level 78 Cholesterol Level 96 L LDL Cholesterol, 32 Calculated HDL Cholesterol 48 Cholesterol/HDL 2.0 Ratio Random Vancomycin 10.9 Level Medications Medication Current Medications Amiodarone HCl (Cordarone) 200 mg DAILY PO Last administered on 01/28/19 09:16; Admin Dose 200 MG; Start 01/27/19 at 09:00 Ascorbic Acid (Vitamin C) 500 mg DAILY PO Last administered on 01/28/19 09:16; Admin Dose 500 MG; Start 01/27/19 at 09:00 Atorvastatin Calcium (Lipitor) 20 mg QHS PO Last administered on 01/28/19at 21:40; Admin Dose 20 MG; Start 01/26/19 at 21:00 Bisacodyl (Dulcolax) 10 mg Q24H PRN PO CONSTIPATION; Start 01/26/19 at 20:00 Citalopram Hydrobromide (Celexa) 20 mg DAILY PO Last administered on 01/28/19 09:16; Admin Dose 20 MG; Start 01/27/19 at 09:00 Docusate Sodium (Colace) 100 mg BID PO Last administered on 01/28/19at 21:40; Admin Dose 100 MG; Start 01/26/19 at 21:00 Folic Acid (Folic Acid) 1 mg DAILY PO Last administered on 01/28/19at 09:16; Admin Dose 1 MG; Start 01/27/19 at 09:00 Insulin Detemir (Levemir) 6 units QHS SC Last administered on 01/28/19 21:59; Admin Dose 6 UNITS; Start 01/26/19 at 21:00 Levothyroxine Sodium (Synthroid) 100 mcg BEFORE BREAKFAST PO Last administered on 01/29/19 06:18; Admin Dose 100 MCG; Start 01/27/19 at 07:00 Metoclopramide HCl (Reglan) 5 mg BEFORE MEALS PO Last administered on 01/28/19 17:08; Admin Dose 5 MG; Start 01/27/19 at 07:30 Metoprolol Tartrate (Lopressor) 25 mg BID PO Last administered on 01/27/19 23:01; Admin Dose 25 MG; Start 01/26/19 at 21:00 Multivit/Ca Carb/ B Cmplx/FA/Prenat (Wendi-Cathi) 1 tab DAILY PO Last admin istered on 01/28/19 09:16; Admin Dose 1 TAB; Start 01/27/19 at 09:00 Ondansetron HCl (Zofran Tab) 4 mg Q6H PRN PO NAUSEA AND/OR VOMITING Last administered on 01/27/19 23:26; Admin Dose 4 MG; Start 01/26/19 at 20:00 Pantoprazole (Protonix Tab) 40 mg DAILY PO Last administered on 01/28/19 09:16; Admin Dose 40 MG; Start 01/27/19 at 09:00 Polyethylene Glycol (Miralax) 17 gm DAILY PO Last administered on 01/28/19 09:15; Admin Dose 17 GM; Start 01/27/19 at 09:00 Prednisolone Acetate (Pred-Forte 1%) 1 drop BID RIGHT EYE Last administered on 01/28/19 21:40; Admin Dose 1 DROP; Start 01/26/19 at 21:00 Zinc Sulfate (Zinc Sulfate) 220 mg DAILY PO Last administered on 01/28/19 09:16; Admin Dose 220 MG; Start 01/27/19 at 09:00 Vancomycin HCl (Vanco Iv Per Pharmacy) VANCOMYCIN PER PHARMACY PER PROTOCOL XX ; Start 01/26/19 at 20:30 Piperacillin Sod/ Tazobactam Sod 50 ml @ 100 mls/hr Q8 IVPB Last administered on 3/22/19at 06:18; Admin Dose 100 MLS/HR; Start 01/26/19 at 22:00 Epoetin Indra (Epogen (Esrd)) 4,000 units TuThSa@17 SC Last administered on 01/28/19at 17:08; Admin Dose 4,000 UNITS; Start 01/28/19 at 17:00 Insulin Aspart (Novolog Insulin Pen) NOVOLOG *MODERATE* ALGORITHM WITH MEALS BEDTIME SC ; Start 01/26/19 at 21:00 Heparin Sodium (Porcine) (Heparin (5000 Units/1ml)) 5,000 unit BID SC Last administered on 01/28/19at 21:54; Admin Dose 5,000 UNIT; Start 01/26/19 at 21:00 Morphine Sulfate (morphine) 2 mg Q4H PRN IV SEVERE PAIN LEVEL 7-10; Start 01/26/19 at 20:30 Miscellaneous Information 1 ea NOTE XX ; Start 01/26/19 at 23:45 Glucose (Glutose) 15 gm Q15M PRN PO DECREASED GLUCOSE; Start 01/26/19 at 23:45 Glucose (Glutose) 22.5 gm Q15M PRN PO DECREASED GLUCOSE; Start 01/26/19 at 23:45 Dextrose (D50w Syringe) 25 ml Q15M PRN IV DECREASED GLUCOSE Last administered on 01/28/19at 07:50; Admin Dose 25 ML; Start 01/26/19 at 23:45 Dextrose (D50w Syringe) 50 ml Q15M PRN IV DECREASED GLUCOSE; Start 01/26/19 at 23:45 Glucagon (Glucagen) 1 mg Q15M PRN IM DECREASED GLUCOSE; Start 01/26/19 at 23:45 Glucose (Glutose) 15 gm Q15M PRN BUCCAL DECREASED GLUCOSE; Start 01/26/19 at 23:45 Alteplase, Recombinant (Cathflo (Activase)) 2 mg MAY REPEAT X1 PRN CATHETER IF CATHETER REMAINS OCCULUDED; Start 01/27/19 at 07:00 Tramadol HCl (Ultram) 50 mg Q6H PO Last administered on 01/28/19at 21:40; Admin Dose 50 MG; Start 01/27/19 at 08:00 Collagenase (Santyl) 1 applic DAILY TOP Last administered on 01/28/19at 09:28; Admin Dose 1 APPLIC; Start 01/28/19 at 09:00 Sodium Hypochlorite (Dakin'S (Dilute )) 1 applic DAILY IRR Last administered on 01/28/19at 09:14; Admin Dose 1 APPLIC; Start 01/28/19 at 09:00 Lorazepam (Ativan) 1 mg Q8H PRN PO ANXIETY; Start 01/27/19 at 22:30 Mupirocin (Bactroban) 1 applic BID TOP Last administered on 01/28/19at 21:40; Admin Dose 1 APPLIC; Start 01/28/19 at 21:00 ANIBAL ALMANZAR MD Jan 29, 2019 07:20
[2019-01-29] MEDS: INSULIN ASPART [NOVOLOG] 3 ML PEN SC SCH ×4 (07:51→21:00)
[2019-01-29] MEDS: METOPROLOL 25 MG TAB PO SCH ×2 (09:00→21:00)
[2019-01-29] MEDS: COLLAGENASE 5 GM (UD JAR) TOP SCH (09:29)
[2019-01-29] MEDS: MUPIROCIN 2% 22 GM OINT TOP SCH ×2 (09:30→22:09)
[2019-01-29] MEDS: BALSAM PERU/CASTOR OIL 60 GM TUBE TOP SCH ×2 (09:30→22:09)
[2019-01-29] MEDS: PREDNISOLONE ACET 1% 5 ML OPH RIGHT EYE SCH ×2 (09:31→22:07)
[2019-01-29] MEDS: PANTOPRAZOLE (EC) 40 MG TAB PO SCH (09:31)
[2019-01-29] MEDS: ZINC SULFATE 220 MG CAP PO SCH (09:31)
[2019-01-29] MEDS: FOLIC ACID 1 MG TAB PO SCH (09:31)
[2019-01-29] MEDS: CITALOPRAM 20 MG TAB PO SCH (09:31)
[2019-01-29] MEDS: ASCORBIC ACID 500 MG TAB PO SCH (09:31)
[2019-01-29] MEDS: DOCUSATE SODIUM 100 MG CAP PO SCH ×2 (09:31→21:00)
[2019-01-29] MEDS: MULTIVIT/CA CARB/B CMPLX/FA TAB PO SCH (09:31)
[2019-01-29] MEDS: SODIUM HYPOCHLORITE (1/40) 1 LITER BTL IRR SCH (09:32)
[2019-01-29] MEDS: AMIODARONE 200 MG TAB PO SCH (09:32)
[2019-01-29] MEDS: HEPARIN 5,000 UNIT/1 ML VIAL SC SCH ×2 (09:34→22:07)
[2019-01-29] MEDS: METOCLOPRAMIDE 5 MG TAB PO SCH ×3 (09:40→16:54)
[2019-01-29] MEDS: POLYETHYLENE GLYCOL 17 GM PACKET PO SCH (09:46)
[2019-01-29] MEDS ORDERED: VANCOMYCIN 1 GM 250 ML IVPB SCH (10:00)
--- NOTE | 2019-01-29 11:49 | PN ---
Date/Time of Note Date/Time of Note DATE: 01/29/19 TIME: 11:47 Assessment/Plan VTE Prophylaxis Risk score (from Ns)>0 risk: 6 [place]CD applied (from [facility] [place] Yes SCD contraindicated: other Pharmacological prophylaxis: other Pharm contraindication: other Lines/Catheters IV Catheter Type (from Nrsg): PICC Line Central line still needed: Yes Urinary Cath still in place: No Assessment/Plan Assessment/Plan 1. Generalized weakness and recurrent vomiting. The patient's current weight is only 70 kg and back in November 2018, she was 91 kilograms, although at that time she used to have fluid overload and gross diastolic heart failure and her breathing has improved after weight loss. Will call Dr. Ramos for GI evaluation. 2. Multiple decubitus. - Wound care consult - per surgery- plan for debridement tomorrow -ID consult from Dr. Guevara will be obtained. 3. End-stage renal disease. - HD per nephro 4. Anemia of chronic kidney disease, will start Procrit. 5. Diabetes. Will continue Levemir and sliding scale insulin. 6. Right eye blindness. 7. Hypothyroidism. Will continue Synthroid and will obtain TSH and T4. Result Diagram: 01/29/19 1057 01/29/19 1057 Results 24hrs Laboratory Tests Test 01/28/19 11:49 01/28/19 14:37 01/28/19 15:14 01/28/19 17:09 Sodium Level 137 Potassium Level 3.4 L Chloride Level 102 Carbon Dioxide Level 28 Anion Gap 7 Blood Urea Nitrogen 21 H Creatinine 2.27 H Est Glomerular 22 L Filtrat Rate mL/min Glucose Level 69 #L Calcium Level 8.9 Bedside Glucose 74 116 103 Test 01/28/19 18:22 01/28/19 21:13 01/29/19 00:51 01/29/19 05:25 Creatine Kinase 21 L < 20 L Creatine Kinase 5.5 Index Creatinine Kinase MB 1.16 0.98 (Mass) Troponin I < 0.012 < 0.012 Bedside Glucose 115 Triglycerides Level 78 Cholesterol Level 96 L LDL Cholesterol, 32 Calculated HDL Cholesterol 48 Cholesterol/HDL 2.0 Ratio Random Vancomycin 10.9 Level Test 01/29/19 07:28 01/29/19 10:57 01/29/19 11:02 Bedside Glucose 93 85 White Blood Count 10.0 Red Blood Count 2.77 L Hemoglobin 8.1 L Hematocrit 28.3 L Mean Corpuscular 102.2 H Volume Mean Corpuscular 29.2 Hemoglobin Mean Corpuscular 28.6 L Hemoglobin Concent Red Cell 15.0 H Distribution Width Platelet Count 188 Mean Platelet Volume 9.2 Immature 0.600 H Granulocytes % Neutrophils % 79.5 H Lymphocytes % 8.1 L Monocytes % 10.5 Eosinophils % 0.9 Basophils % 0.4 Nucleated Red Blood 0.0 Cells % Immature 0.060 H Granulocytes # Neutrophils # 8.0 H Lymphocytes # 0.8 Monocytes # 1.1 H Eosinophils # 0.1 Basophils # 0.0 Nucleated Red Blood 0.0 Cells # Sodium Level 136 Potassium Level 3.5 Chloride Level 99 Carbon Dioxide Level 28 Anion Gap 9 Blood Urea Nitrogen 27 H Creatinine 2.61 H Est Glomerular 19 L Filtrat Rate mL/min Glucose Level 77 Calcium Level 8.9 Subjective 24 Hr Interval Summary Free Text/Dictation - per surgery- plan for debridement tomorrow Constitutional: no complaints ENT: no complaints Respiratory: no complaints Cardiovascular: no complaints Gastrointestinal: no complaints Genitourinary: no complaints Musculoskeletal: no complaints Skin: no complaints Neurologic: no complaints Exam/Review of Systems Exam Vitals Vital Signs Date Temp Pulse Resp B/P (MAP) Pulse Ox O2 O2 Flow FiO2 Time Delivery Rate 01/29/19 98.1 67 18 134/64 93 11:06 (87) 01/28/19 Nasal 4.0 20:00 Cannula Intake and Output 01/28/19 01/28/19 01/29/19 1515:00 23:00 07:00 IntakeIntake Total 50 ml 110 ml OutputOutput Total 0 ml BalanceBalance 50 ml 110 ml Constitutional: alert, well developed Psych: nl mood/affect Eyes: nl lids, other (blindness) ENMT: nl external ears & nose Neck: non-tender Respiratory: diminished breath sounds Cardiovascular: nl pulses Gastrointestinal: soft, non-tender Musculoskeletal: nl extremities to inspection Neurological: confused Lymph: nontender Results Results 24hrs Laboratory Tests Test 01/28/19 11:49 01/28/19 14:37 01/28/19 15:14 01/28/19 17:09 Sodium Level 137 Potassium Level 3.4 L Chloride Level 102 Carbon Dioxide Level 28 Anion Gap 7 Blood Urea Nitrogen 21 H Creatinine 2.27 H Est Glomerular 22 L Filtrat Rate mL/min Glucose Level 69 #L Calcium Level 8.9 Bedside Glucose 74 116 103 Test 01/28/19 18:22 01/28/19 21:13 01/29/19 00:51 01/29/19 05:25 Creatine Kinase 21 L < 20 L Creatine Kinase 5.5 Index Creatinine Kinase MB 1.16 0.98 (Mass) Troponin I < 0.012 < 0.012 Bedside Glucose 115 Triglycerides Level 78 Cholesterol Level 96 L LDL Cholesterol, 32 Calculated HDL Cholesterol 48 Cholesterol/HDL 2.0 Ratio Random Vancomycin 10.9 Level Test 01/29/19 07:28 01/29/19 10:57 01/29/19 11:02 Bedside Glucose 93 85 White Blood Count 10.0 Red Blood Count 2.77 L Hemoglobin 8.1 L Hematocrit 28.3 L Mean Corpuscular 102.2 H Volume Mean Corpuscular 29.2 Hemoglobin Mean Corpuscular 28.6 L Hemoglobin Concent Red Cell 15.0 H Distribution Width Platelet Count 188 Mean Platelet Volume 9.2 Immature 0.600 H Granulocytes % Neutrophils % 79.5 H Lymphocytes % 8.1 L Monocytes % 10.5 Eosinophils % 0.9 Basophils % 0.4 Nucleated Red Blood 0.0 Cells % Immature 0.060 H Granulocytes # Neutrophils # 8.0 H Lymphocytes # 0.8 Monocytes # 1.1 H Eosinophils # 0.1 Basophils # 0.0 Nucleated Red Blood 0.0 Cells # Sodium Level 136 Potassium Level 3.5 Chloride Level 99 Carbon Dioxide Level 28 Anion Gap 9 Blood Urea Nitrogen 27 H Creatinine 2.61 H Est Glomerular 19 L Filtrat Rate mL/min Glucose Level 77 Calcium Level 8.9 Medications Medication Current Medications Amiodarone HCl (Cordarone) 200 mg DAILY PO Last administered on 01/29/19at 09:32; Admin Dose 200 MG; Start 01/27/19 at 09:00 Ascorbic Acid (Vitamin C) 500 mg DAILY PO Last administered on 01/29/19at 09:31; Admin Dose 500 MG; Start 01/27/19 at 09:00 Atorvastatin Calcium (Lipitor) 20 mg QHS PO Last administered on 01/28/19at 21:40; Admin Dose 20 MG; Start 01/26/19 at 21:00 Bisacodyl (Dulcolax) 10 mg Q24H PRN PO CONSTIPATION; Start 01/26/19 at 20:00 Citalopram Hydrobromide (Celexa) 20 mg DAILY PO Last administered on 01/29/19 09:31; Admin Dose 20 MG; Start 01/27/19 at 09:00 Docusate Sodium (Colace) 100 mg BID PO Last administered on 01/29/19 09:31; Admin Dose 100 MG; Start 01/26/19 at 21:00 Folic Acid (Folic Acid) 1 mg DAILY PO Last administered on 01/29/19 09:31; Admin Dose 1 MG; Start 01/27/19 at 09:00 Insulin Detemir (Levemir) 6 units QHS SC Last administered on 01/28/19 21:59; Admin Dose 6 UNITS; Start 01/26/19 at 21:00 Levothyroxine Sodium (Synthroid) 100 mcg BEFORE BREAKFAST PO Last administered on 01/29/19 06:18; Admin Dose 100 MCG; Start 01/27/19 at 07:00 Metoclopramide HCl (Reglan) 5 mg BEFORE MEALS PO Last administered on 01/29/19 09:40; Admin Dose 5 MG; Start 01/27/19 at 07:30 Metoprolol Tartrate (Lopressor) 25 mg BID PO Last administered on 01/27/19 23:01; Admin Dose 25 MG; Start 01/26/19 at 21:00 Multivit/Ca Carb/ B Cmplx/FA/Prenat (Wendi-Cathi) 1 tab DAILY PO Last administered on 01/29/19 09:31; Admin Dose 1 TAB; Start 01/27/19 at 09:00 Ondansetron HCl (Zofran Tab) 4 mg Q6H PRN PO NAUSEA AND/OR VOMITING Last administered on 01/27/19 23:26; Admin Dose 4 MG; Start 01/26/19 at 20:00 Pantoprazole (Protonix Tab) 40 mg DAILY PO Last administered on 01/29/19 09:31; Admin Dose 40 MG; Start 01/27/19 at 09:00 Polyethylene Glycol (Miralax) 17 gm DAILY PO Last administered on 01/29/19 09:46; Admin Dose 17 GM; Start 01/27/19 at 09:00 Prednisolone Acetate (Pred-Forte 1%) 1 drop BID RIGHT EYE Last administered on 01/29/19 09:31; Admin Dose 1 DROP; Start 01/26/19 at 21:00 Zinc Sulfate (Zinc Sulfate) 220 mg DAILY PO Last administered on 01/29/19 09:31; Admin Dose 220 MG; Start 01/27/19 at 09:00 Vancomycin HCl (Vanco Iv Per Pharmacy) VANCOMYCIN PER PHARMACY PER PROTOCOL XX ; Start 01/26/19 at 20:30 Insulin Aspart (Novolog Insulin Pen) NOVOLOG *MODERATE* ALGORITHM WITH MEALS BEDTIME SC ; Start 01/26/19 at 21:00 Heparin Sodium (Porcine) (Heparin (5000 Units/1ml)) 5,000 unit BID SC Last administered on 01/29/19 09:34; Admin Dose 5,000 UNIT; Start 01/26/19 at 21:00 Morphine Sulfate (morphine) 2 mg Q4H PRN IV SEVERE PAIN LEVEL 7-10; Start 01/26/19 at 20:30 Miscellaneous Information 1 ea NOTE XX ; Start 01/26/19 at 23:45 Glucose (Glutose) 15 gm Q15M PRN PO DECREASED GLUCOSE; Start 01/26/19 at 23:45 Glucose (Glutose) 22.5 gm Q15M PRN PO DECREASED GLUCOSE; Start 01/26/19 at 23:45 Dextrose (D50w Syringe) 25 ml Q15M PRN IV DECREASED GLUCOSE Last administered on 01/28/19at 07:50; Admin Dose 25 ML; Start 01/26/19 at 23:45 Dextrose (D50w Syringe) 50 ml Q15M PRN IV DECREASED GLUCOSE; Start 01/26/19 at 23:45 Glucagon (Glucagen) 1 mg Q15M PRN IM DECREASED GLUCOSE; Start 01/26/19 at 23:45 Glucose (Glutose) 15 gm Q15M PRN BUCCAL DECREASED GLUCOSE; Start 01/26/19 at 23:45 Alteplase, Recombinant (Cathflo (Activase)) 2 mg MAY REPEAT X1 PRN CATHETER IF CATHETER REMAINS OCCULUDED; Start 01/27/19 at 07:00 Tramadol HCl (Ultram) 50 mg Q6H PO Last administered on 01/29/19 09:32; Admin Dose 50 MG; Start 01/27/19 at 08:00 Collagenase (Santyl) 1 applic DAILY TOP Last administered on 3/22/19at 09:29; Admin Dose 1 APPLIC; Start 01/28/19 at 09:00 Sodium Hypochlorite (Dakin'S (Dilute )) 1 applic DAILY IRR Last administered on 01/29/19at 09:32; Admin Dose 1 APPLIC; Start 01/28/19 at 09:00 Lorazepam (Ativan) 1 mg Q8H PRN PO ANXIETY; Start 01/27/19 at 22:30 Mupirocin (Bactroban) 1 applic BID TOP Last administered on 01/29/19at 09:30; Admin Dose 1 APPLIC; Start 01/28/19 at 21:00 Epoetin Indra (Epogen (Esrd)) 8,000 units TuThSa@17 SC ; Start 01/30/19 at 17:00 Megestrol Acetate (Megace) 40 mg DAILY PO ; Start 01/29/19 at 09:00; Status UNV Vancomycin HCl 250 ml @ 125 mls/hr 1000 IVPB Last administered on 01/29/19at 09:29; Admin Dose 125 MLS/HR; Start 01/29/19 at 10:00; Stop 01/29/19 at 19:00 Meropenem/Sodium Chloride 50 ml @ 100 mls/hr Q12 IVPB ; Start 01/29/19 at 11:30; Status UNV TROY ANTOINE Jan 29, 2019 11:49
[2019-01-29] MEDS ORDERED: MEROPENEM 500MG/50 ML (PMX) 50 ML IVPB SCH (13:00)
--- NOTE | 2019-01-29 13:12 | CONS ---
Assessment/Plan Assessment/Plan Hospital Course (Demo Recall) Patient is sleeping looks comfortable, no fevers overnight. Microbiology: Wound cultures growing E. coli ESBL, staph aureus and enterococcus species and Proteus mirabilis, blood cultures remain negative WBC 10 platelets 188 neutrophils 79.5 Antimicrobials: Vancomycin, meropenem Send him again [place] may be both his legs look more indwelling: Left upper extremity PICC line right upper extremity AV fistula PHYSICAL EXAMINATION: GENERAL: This is a fragile, wasted, well-developed, elderly woman, who is lethargic, arousable. The patient is in no distress. HEENT: Head atraumatic, normocephalic. Sclerae anicteric. The patient has right eye blindness. Buccal mucosa pale, dry. NECK: Supple. CHEST: Rise symmetrical. Breath sounds diminished to bases. HEART: S1, S2. ABDOMEN: Obese, soft, bowel tones present. EXTREMITIES: Bilateral edema. SKIN: The patient has a large necrotic wounds on bilateral buttocks, left buttock and left posterior thigh area , also, necrotic wound. The patient has pressure sores on her left heel as well. Assessment: 1. Multiple necrotic infected wounds 2. End-stage renal disease, hemodialysis dependent 3. Diabetes 4. Hypertension 5. MRSA colonization Plan: Patient is stable, continue on current antibiotics and topical Bactroban, wound care per surgical recommendations, pending debridement Consultation Date/Type/Reason Admit Date/Time Jan 26, 2019 at 17:32 Initial Consult Date 01/27/19 Type of Consult id Requesting Provider: ALEXUS VALENCIA MD Date/Time of Note DATE: 01/29/19 TIME: 13:11 Exam/Review of Systems Exam Vitals Vital Signs Date Temp Pulse Resp B/P (MAP) Pulse Ox O2 O2 Flow FiO2 Time Delivery Rate 01/29/19 98.1 67 18 134/64 93 11:06 (87) 01/28/19 Nasal 4.0 20:00 Cannula Intake and Output 01/28/19 01/28/19 01/29/19 1515:00 23:00 07:00 IntakeIntake Total 50 ml 110 ml OutputOutput Total 0 ml BalanceBalance 50 ml 110 ml Results Result Diagram: 01/29/19 1057 01/29/19 1057 Results 24hrs Laboratory Tests Test 01/28/19 14:37 01/28/19 15:14 01/28/19 17:09 01/28/19 18:22 Bedside Glucose 74 116 103 Creatine Kinase 21 L Creatine Kinase 5.5 Index Creatinine Kinase MB 1.16 (Mass) Troponin I < 0.012 Test 01/28/19 21:13 01/29/19 00:51 01/29/19 05:25 01/29/19 07:28 Bedside Glucose 115 93 Creatine Kinase < 20 L Creatine Kinase Index Creatinine Kinase MB 0.98 (Mass) Troponin I < 0.012 Triglycerides Level 78 Cholesterol Level 96 L LDL Cholesterol, 32 Calculated HDL Cholesterol 48 Cholesterol/HDL 2.0 Ratio Random Vancomycin 10.9 Level Test 01/29/19 10:57 01/29/19 11:02 White Blood Count 10.0 Red Blood Count 2.77 L Hemoglobin 8.1 L Hematocrit 28.3 L Mean Corpuscular 102.2 H Volume Mean Corpuscular 29.2 Hemoglobin Mean Corpuscular 28.6 L Hemoglobin Concent Red Cell 15.0 H Distribution Width Platelet Count 188 Mean Platelet Volume 9.2 Immature 0.600 H Granulocytes % Neutrophils % 79.5 H Lymphocytes % 8.1 L Monocytes % 10.5 Eosinophils % 0.9 Basophils % 0.4 Nucleated Red Blood 0.0 Cells % Immature 0.060 H Granulocytes # Neutrophils # 8.0 H Lymphocytes # 0.8 Monocytes # 1.1 H Eosinophils # 0.1 Basophils # 0.0 Nucleated Red Blood 0.0 Cells # Sodium Level 136 Potassium Level 3.5 Chloride Level 99 Carbon Dioxide Level 28 Anion Gap 9 Blood Urea Nitrogen 27 H Creatinine 2.61 H Est Glomerular 19 L Filtrat Rate mL/min Glucose Level 77 Calcium Level 8.9 Bedside Glucose 85 Medications Medication Current Medications Amiodarone HCl (Cordarone) 200 mg DAILY PO Last administered on 01/29/19at 09:32; Admin Dose 200 MG; Start 01/27/19 at 09:00 Ascorbic Acid (Vitamin C) 500 mg DAILY PO Last administered on 01/29/19at 09:31; Admin Dose 500 MG; Start 01/27/19 at 09:00 Atorvastatin Calcium (Lipitor) 20 mg QHS PO Last administered on 01/28/19at 21:40; Admin Dose 20 MG; Start 01/26/19 at 21:00 Bisacodyl (Dulcolax) 10 mg Q24H PRN PO CONSTIPATION; Start 01/26/19 at 20:00 Citalopram Hydrobromide (Celexa) 20 mg DAILY PO Last administered on 01/29/19 09:31; Admin Dose 20 MG; Start 01/27/19 at 09:00 Docusate Sodium (Colace) 100 mg BID PO Last administered on 01/29/19 09:31; Admin Dose 100 MG; Start 01/26/19 at 21:00 Folic Acid (Folic Acid) 1 mg DAILY PO Last administered on 01/29/19 09:31; Admin Dose 1 MG; Start 01/27/19 at 09:00 Insulin Detemir (Levemir) 6 units QHS SC Last administered on 01/28/19 21:59; Admin Dose 6 UNITS; Start 01/26/19 at 21:00 Levothyroxine Sodium (Synthroid) 100 mcg BEFORE BREAKFAST PO Last administered on 01/29/19 06:18; Admin Dose 100 MCG; Start 01/27/19 at 07:00 Metoclopramide HCl (Reglan) 5 mg BEFORE MEALS PO Last administered on 01/29/19 09:40; Admin Dose 5 MG; Start 01/27/19 at 07:30 Metoprolol Tartrate (Lopressor) 25 mg BID PO Last administered on 01/27/19 23 :01; Admin Dose 25 MG; Start 01/26/19 at 21:00 Multivit/Ca Carb/ B Cmplx/FA/Prenat (Wendi-Cathi) 1 tab DAILY PO Last administered on 01/29/19 09:31; Admin Dose 1 TAB; Start 01/27/19 at 09:00 Ondansetron HCl (Zofran Tab) 4 mg Q6H PRN PO NAUSEA AND/OR VOMITING Last administered on 01/27/19 23:26; Admin Dose 4 MG; Start 01/26/19 at 20:00 Pantoprazole (Protonix Tab) 40 mg DAILY PO Last administered on 01/29/19 09:31; Admin Dose 40 MG; Start 01/27/19 at 09:00 Polyethylene Glycol (Miralax) 17 gm DAILY PO Last administered on 01/29/19 09:46; Admin Dose 17 GM; Start 01/27/19 at 09:00 Prednisolone Acetate (Pred-Forte 1%) 1 drop BID RIGHT EYE Last administered on 01/29/19 09:31; Admin Dose 1 DROP; Start 01/26/19 at 21:00 Zinc Sulfate (Zinc Sulfate) 220 mg DAILY PO Last administered on 01/29/19 09:31; Admin Dose 220 MG; Start 01/27/19 at 09:00 Vancomycin HCl (Vanco Iv Per Pharmacy) VANCOMYCIN PER PHARMACY PER PROTOCOL XX ; Start 01/26/19 at 20:30 Insulin Aspart (Novolog Insulin Pen) NOVOLOG *MODERATE* ALGORITHM WITH MEALS BEDTIME SC ; Start 01/26/19 at 21:00 Heparin Sodium (Porcine) (Heparin (5000 Units/1ml)) 5,000 unit BID SC Last administered on 01/29/19 09:34; Admin Dose 5,000 UNIT; Start 01/26/19 at 21:00 Morphine Sulfate (morphine) 2 mg Q4H PRN IV SEVERE PAIN LEVEL 7-10; Start 01/26/19 at 20:30 Miscellaneous Information 1 ea NOTE XX ; Start 01/26/19 at 23:45 Glucose (Glutose) 15 gm Q15M PRN PO DECREASED GLUCOSE; Start 01/26/19 at 23:45 Glucose (Glutose) 22.5 gm Q15M PRN PO DECREASED GLUCOSE; Start 01/26/19 at 23:45 Dextrose (D50w Syringe) 25 ml Q15M PRN IV DECREASED GLUCOSE Last administered on 01/28/19at 07:50; Admin Dose 25 ML; Start 01/26/19 at 23:45 Dextrose (D50w Syringe) 50 ml Q15M PRN IV DECREASED GLUCOSE; Start 01/26/19 at 23:45 Glucagon (Glucagen) 1 mg Q15M PRN IM DECREASED GLUCOSE; Start 01/26/19 at 23:45 Glucose (Glutose) 15 gm Q15M PRN BUCCAL DECREASED GLUCOSE; Start 01/26/19 at 23:45 Alteplase, Recombinant (Cathflo (Activase)) 2 mg MAY REPEAT X1 PRN CATHETER IF CATHETER REMAINS OCCULUDED; Start 01/27/19 at 07:00 Tramadol HCl (Ultram) 50 mg Q6H PO Last administered on 01/29/19 09:32; Admin Dose 50 MG; Start 01/27/19 at 08:00 Collagenase (Santyl) 1 applic DAILY TOP Last administered on 01/29/19at 09:29; Admin Dose 1 APPLIC; Start 01/28/19 at 09:00 Sodium Hypochlorite (Dakin'S (Dilute )) 1 applic DAILY IRR Last administered on 01/29/19at 09:32; Admin Dose 1 APPLIC; Start 01/28/19 at 09:00 Lorazepam (Ativan) 1 mg Q8H PRN PO ANXIETY; Start 01/27/19 at 22:30 Mupirocin (Bactroban) 1 applic BID TOP Last administered on 01/29/19at 09:30; Admin Dose 1 APPLIC; Start 01/28/19 at 21:00 Epoetin Indra (Epogen (Esrd)) 8,000 units TuThSa@17 SC ; Start 01/30/19 at 17:00 Megestrol Acetate (Megace) 40 mg DAILY PO ; Start 01/29/19 at 09:00; Status UNV Vancomycin HCl 250 ml @ 125 mls/hr 1000 IVPB Last administered on 01/29/19at 09:29; Admin Dose 125 MLS/HR; Start 01/29/19 at 10:00; Stop 01/29/19 at 19:00 Meropenem/Sodium Chloride 50 ml @ 100 mls/hr Q24H IVPB ; Start 01/29/19 at 13:00 ALYX NAVARRO NP Jan 29, 2019 13:12
[2019-01-29] MEDS: MEROPENEM 500MG/50 ML (PMX) 50 ML IVPB SCH (14:20)
--- NOTE | 2019-01-29 14:24 | RADRPT ---
Vent Rate: 66 bpm RR Interval: 912 msec TN Interval: 276 msec QRS Duration: 115 msec QT Interval: 480 msec QTC Interval: 503 msec P-R-T [place]: 207 - 114 - 69 degrees Sinus or ectopic atrial rhythm...P axis (-45,135) Prolonged TN interval...TN >220, V-rate 50- 90 Nonspecific intraventricular conduction delay...QRSd >115mS, not LBBB/RBBB Prolonged QT interval...QTc >500mS Electronically Signed By: Sid Mendoza
--- NOTE | 2019-01-29 15:09 | PN ---
Date/Time of Note Date/Time of Note DATE: 01/29/19 TIME: 15:06 Assessment/Plan Lines/Catheters IV Catheter Type (from [facility]): PICC Line [place] in Place (from [facility]): No Assessment/Plan Chief Complaint/Hosp Course 1. Sacral and bilateral ischial wounds: wnd cx noted -debridement today -local care -frequent turning and off-loading -low air loss mattress -vitamin c -short term zinc -optimize nutrition 2. Abdominal pain and generalized weakness:; Status post EGD: Gastritis -further w/u per med team -PPI 3. ESRD -limit nephrotoxins -HD per renal -renally dose meds 4. Anemia: -monitor and transfuse as needed 5. Diabetes -glucose monitoring 6. Hypothyroidism -med mgt 7. Leukocytosis: Resolved -further workup per med/id team -as above Thank you. Patient seen and examined in collaboration with Dr. Simón Almanza. Subjective 24 Hr Interval Summary Status post EGD yesterday. Pending wound debridement today. No fevers, chills, sob, congested cough, cp, palpitations, hoffman, dizziness, nausea, vomiting, diarrhea, dysuria. Exam/Review of Systems Vital Signs Vitals Vital Signs Date Temp Pulse Resp B/P (MAP) Pulse Ox O2 O2 Flow FiO2 Time Delivery Rate 01/29/19 98.2 66 18 138/63 96 Nasal 4.0 15:02 (88) Cannula Intake and Output 01/28/19 01/28/19 01/29/19 1414:59 22:59 06:59 IntakeIntake Total 50 ml 110 ml OutputOutput Total 0 ml BalanceBalance 50 ml 110 ml Exam Free Text/Dictation Constitutional: alert, oriented, obese Psych: anxiety Head: normocephalic, atraumatic Eyes: nl conjunctiva, EOMI, nl lids, nl sclera ENMT: nl external ears & nose, nl lips & teeth, mucosa pink and moist Neck: supple, non-tender; No jvd Respiratory: normal air movement; No congested cough, No labored breathing Cardiovascular: regular rate and rhythm, nl pulses; No edema Gastrointestinal: soft, non-tender, distended Genitourinary - Female: nl external genitalia Musculoskeletal: nl extremities to inspection, nl gait and stance Extremities: normal pulses Neurological: nl mental status, nl speech, nl strength Skin: other (sacral: malodorous, necrotic tissue; right ischium: slough and necrotic tissue, malodorous; left ischium: unstageable); No rash or lesions Results Result Diagram: 01/29/19 1057 01/29/19 1057 ARSLAN COATES NP Jan 29, 2019 15:09
--- NOTE | 2019-01-29 17:28 | CONS ---
Assessment/Plan Assessment/Plan Hospital Course (Demo Recall) IMPRESSION: 1. Preop evaluation. The patient to undergo EGD whose 2D echo I just read revealing EF lower limits of normal, approximately 50% with no significant contraindicated valvular lesions and negative troponin x1 since admit, patient is okay to proceed at a moderate cardiovascular risk. 2. Congestive heart failure, diastolic acute on chronic. 3. Hypertension. 4. Cardiac arrhythmia, on amiodarone, in sinus rhythm by EKG. 5. Hypothyroidism. 6. Diabetes mellitus. 7. Nausea and vomiting. 8. Generalized weakness. 9. Decubitus ulcers. 10. Anemia. 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 Recc: -Tele -BB as tolerated only -continue statin -Continue abx's and f/u cx data -For debridement today. check post-op ecg Consultation Date/Type/Reason Admit Date/Time Jan 26, 2019 at 17:32 Initial Consult Date 01/27/19 Type of Consult Cardiology Reason for Consultation CHF Requesting Provider: ALEXUS VALENCIA MD Date/Time of Note DATE: 01/29/19 TIME: 17:25 Exam/Review of Systems Vital Signs Vitals Vital Signs Date Temp Pulse Resp B/P (MAP) Pulse Ox O2 O2 Flow FiO2 Time Delivery Rate 01/29/19 98.2 66 18 138/63 96 Nasal 4.0 15:02 (88) Cannula Intake and Output 01/28/19 01/28/19 01/29/19 1515:00 23:00 07:00 IntakeIntake Total 50 ml 110 ml OutputOutput Total 0 ml BalanceBalance 50 ml 110 ml Exam Exam Review of Systems: CONSTITUTIONAL: No fevers, chills. PULMONARY: No sob CARDIOVASCULAR: No chest pain/palpitations GASTROINTESTINAL: No nausea/vomiting. GENITOURINARY: No hematuria/dysuria. MUSCULOSKELETAL: No myagias/arthalgias. PSYCHIATRIC: The patient denies depression. NEUROLOGIC: No weakness Constitutional: alert Psych: no complaints Head: normocephalic ENMT: mucosa pink and moist Neck: supple, jvd (9 cm water) Respiratory: diminished breath sounds (at bases/B) Cardiovascular: regular rate and rhythm Gastrointestinal: soft, non-tender Musculoskeletal: muscle tone (normnal) Extremities: edema (none) Neurological: other (NO focal deficits) Labs Result Diagram: 01/29/19 1057 01/29/19 1057 Results 24hrs Laboratory Tests Test 01/28/19 18:22 01/28/19 21:13 01/29/19 00:51 01/29/19 05:25 Creatine Kinase 21 L < 20 L Creatine Kinase 5.5 Index Creatinine Kinase MB 1.16 0.98 (Mass) Troponin I < 0.012 < 0.012 Bedside Glucose 115 Triglycerides Level 78 Cholesterol Level 96 L LDL Cholesterol, 32 Calculated HDL Cholesterol 48 Cholesterol/HDL 2.0 Ratio Random Vancomycin 10.9 Level Test 01/29/19 07:28 01/29/19 10:57 01/29/19 11:02 Bedside Glucose 93 85 White Blood Count 10.0 Red Blood Count 2.77 L Hemoglobin 8.1 L Hematocrit 28.3 L Mean Corpuscular 102.2 H Volume Mean Corpuscular 29.2 Hemoglobin Mean Corpuscular 28.6 L Hemoglobin Concent Red Cell 15.0 H Distribution Width Platelet Count 188 Mean Platelet Volume 9.2 Immature 0.600 H Granulocytes % Neutrophils % 79.5 H Lymphocytes % 8.1 L Monocytes % 10.5 Eosinophils % 0.9 Basophils % 0.4 Nucleated Red Blood 0.0 Cells % Immature 0.060 H Granulocytes # Neutrophils # 8.0 H Lymphocytes # 0.8 Monocytes # 1.1 H Eosinophils # 0.1 Basophils # 0.0 Nucleated Red Blood 0.0 Cells # Sodium Level 136 Potassium Level 3.5 Chloride Level 99 Carbon Dioxide Level 28 Anion Gap 9 Blood Urea Nitrogen 27 H Creatinine 2.61 H Est Glomerular 19 L Filtrat Rate mL/min Glucose Level 77 Calcium Level 8.9 Medications Medications Current Medications Amiodarone HCl (Cordarone) 200 mg DAILY PO Last administered on 01/29/19at 09:32; Admin Dose 200 MG; Start 01/27/19 at 09:00 Ascorbic Acid (Vitamin C) 500 mg DAILY PO Last administered on 01/29/19at 09:31; Admin Dose 500 MG; Start 01/27/19 at 09:00 Atorvastatin Calcium (Lipitor) 20 mg QHS PO Last administered on 01/28/19at 21:40; Admin Dose 20 MG; Start 01/26/19 at 21:00 Bisacodyl (Dulcolax) 10 mg Q24H PRN PO CONSTIPATION; Start 01/26/19 at 20:00 Citalopram Hydrobromide (Celexa) 20 mg DAILY PO Last administered on 01/29/19 09:31; Admin Dose 20 MG; Start 01/27/19 at 09:00 Docusate Sodium (Colace) 100 mg BID PO Last administered on 01/29/19 09:31; Admin Dose 100 MG; Start 01/26/19 at 21:00 Folic Acid (Folic Acid) 1 mg DAILY PO Last administered on 01/29/19 09:31; Admin Dose 1 MG; Start 01/27/19 at 09:00 Insulin Detemir (Levemir) 6 units QHS SC Last administered on 01/28/19 21:59; Admin Dose 6 UNITS; Start 01/26/19 at 21:00 Levothyroxine Sodium (Synthroid) 100 mcg BEFORE BREAKFAST PO Last administered on 01/29/19 06:18; Admin Dose 100 MCG; Start 01/27/19 at 07:00 Metoclopramide HCl (Reglan) 5 mg BEFORE MEALS PO Last administered on 01/29/19 09:40; Admin Dose 5 MG; Start 01/27/19 at 07:30 Metoprolol Tartrate (Lopressor) 25 mg BID PO Last administered on 01/27/19 23:01; Admin Dose 25 MG; Start 01/26/19 at 21:00 Multivit/Ca Carb/ B Cmplx/FA/Prenat (Wendi-Cathi) 1 tab DAILY PO Last administered on 01/29/19 09:31; Admin Dose 1 TAB; Start 01/27/19 at 09:00 Ondansetron HCl (Zofran Tab) 4 mg Q6H PRN PO NAUSEA AND/OR VOMITING Last administered on 01/27/19 23:26; Admin Dose 4 MG; Start 01/26/19 at 20:00 Pantoprazole (Protonix Tab) 40 mg DAILY PO Last administered on 01/29/19 09:31; Admin Dose 40 MG; Start 01/27/19 at 09:00 Polyethylene Glycol (Miralax) 17 gm DAILY PO Last administered on 01/29/19 09: 46; Admin Dose 17 GM; Start 01/27/19 at 09:00 Prednisolone Acetate (Pred-Forte 1%) 1 drop BID RIGHT EYE Last administered on 01/29/19 09:31; Admin Dose 1 DROP; Start 01/26/19 at 21:00 Zinc Sulfate (Zinc Sulfate) 220 mg DAILY PO Last administered on 01/29/19at 09:31; Admin Dose 220 MG; Start 01/27/19 at 09:00 Vancomycin HCl (Vanco Iv Per Pharmacy) VANCOMYCIN PER PHARMACY PER PROTOCOL XX ; Start 01/26/19 at 20:30 Insulin Aspart (Novolog Insulin Pen) NOVOLOG *MODERATE* ALGORITHM WITH MEALS BEDTIME SC ; Start 01/26/19 at 21:00 Heparin Sodium (Porcine) (Heparin (5000 Units/1ml)) 5,000 unit BID SC Last administered on 01/29/19at 09:34; Admin Dose 5,000 UNIT; Start 01/26/19 at 21:00 Morphine Sulfate (morphine) 2 mg Q4H PRN IV SEVERE PAIN LEVEL 7-10; Start 01/26/19 at 20:30 Miscellaneous Information 1 ea NOTE XX ; Start 01/26/19 at 23:45 Glucose (Glutose) 15 gm Q15M PRN PO DECREASED GLUCOSE; Start 01/26/19 at 23:45 Glucose (Glutose) 22.5 gm Q15M PRN PO DECREASED GLUCOSE; Start 01/26/19 at 23:45 Dextrose (D50w Syringe) 25 ml Q15M PRN IV DECREASED GLUCOSE Last administered on 01/28/19at 07:50; Admin Dose 25 ML; Start 01/26/19 at 23:45 Dextrose (D50w Syringe) 50 ml Q15M PRN IV DECREASED GLUCOSE; Start 01/26/19 at 23:45 Glucagon (Glucagen) 1 mg Q15M PRN IM DECREASED GLUCOSE; Start 01/26/19 at 23:45 Glucose (Glutose) 15 gm Q15M PRN BUCCAL DECREASED GLUCOSE; Start 01/26/19 at 23:45 Alteplase, Recombinant (Cathflo (Activase)) 2 mg MAY REPEAT X1 PRN CATHETER IF CATHETER REMAINS OCCULUDED; Start 01/27/19 at 07:00 Tramadol HCl (Ultram) 50 mg Q6H PO Last administered on 01/29/19at 14:20; Admin Dose 50 MG; Start 01/27/19 at 08:00 Collagenase (Santyl) 1 applic DAILY TOP Last administered on 01/29/19at 09:29; Admin Dose 1 APPLIC; Start 01/28/19 at 09:00 Sodium Hypochlorite (Dakin'S (Dilute )) 1 applic DAILY IRR Last administered on 01/29/19at 09:32; Admin Dose 1 APPLIC; Start 01/28/19 at 09:00 Lorazepam (Ativan) 1 mg Q8H PRN PO ANXIETY; Start 01/27/19 at 22:30 Mupirocin (Bactroban) 1 applic BID TOP Last administered on 01/29/19at 09:30; Admin Dose 1 APPLIC; Start 01/28/19 at 21:00 Epoetin Indra (Epogen (Esrd)) 8,000 units TuThSa@17 SC ; Start 01/30/19 at 17:00 Megestrol Acetate (Megace) 40 mg DAILY PO ; Start 01/29/19 at 09:00; Status UNV Vancomycin HCl 250 ml @ 125 mls/hr 1000 IVPB Last administered on 01/29/19at 09:29; Admin Dose 125 MLS/HR; Start 01/29/19 at 10:00; Stop 01/29/19 at 19:00 Meropenem/Sodium Chloride 50 ml @ 100 mls/hr Q24H IVPB Last administered on 01/29/19at 14:20; Admin Dose 100 MLS/HR; Start 01/29/19 at 13:00 ALIREZA LEE Jan 29, 2019 17:28
--- NOTE | 2019-01-29 17:45 | OPR ---
Date/Time of Note Date/Time of Note DATE: 01/29/19 TIME: 17:43 Operative Report Procedure Date: Jan 29, 2019 Preoperative Diagnosis 1. Right ischial deep tissue injury 2. Sacral large deep tissue injury Postoperative Diagnosis 1. Right ischial stage IV pressure injury/decubitus ulcer, 6 x 5 cm 2. Sacral large stage IV pressure injury/decubitus ulcer, 10 x 9 cm 3. The right ischial abscess Operation/Procedure Performed 1. Excisional debridement of skin subcutaneous fascia and muscle of sacrum, 10 x 9 cm 2. Excisional debridement of right ischial skin subcutaneous and fascia, 6 x 5 cm 3. Incision and drainage of right facial abscess Surgeon Alfredo Sanchez MD Biomedical Electronics Technician None Anesthesia Type: MAC Anesthesiologist: TERESA DE LA ROSA MD Estimated Blood Loss: 0 - 10 ml's Transfusion none Specimen Tissue Grafts/Implants none Tubes/Drains Kerlix packing with Betadine Complications none Pt Condition Post Procedure: stable Disposition: PACU Indications Per consult note and progress notes. Risks include but are not limited to bleeding, infection, abscess, seroma, leak, chronic pain, need for re-operations or further surgeries, DE, stroke, PE, DVT, pneumonia, organ failures, or even . Procedure Description Patient was brought in on his own bed to the OR. Placed in lateral decubitus position. All pressure points were well-padded. Patient is already on antibiotics. Anesthesia was instituted. Timeout was performed. She was prepped and draped in usual sterile fashion. Using electrocautery skin, subcutaneous, and muscle were excised down to healthier tissue of sacrum and right ischial. Hemostasis was obtained. An abscess was identified just inferior to the initial ischial site and it was drained and culture was sent. Wounds were irrigated and packed with Betadine soaked Kerlix. Dry dressing was applied. Patient was taken back to recovery room in stable condition. All counts were correct at the end of the operation 2. ALFREDO SANCHEZ MD Jan 29, 2019 17:45
--- NOTE | 2019-01-29 18:05 | PREAC ---
Date/Time of Note Date/Time of Note DATE: 01/29/19 TIME: 18:00 Anesthesia Eval and Record Evaluation Time Pre-Procedure Interview DATE: 01/29/19 TIME: 18:00 Age 63 Sex female NPO: 8 hrs Preoperative diagnosis Sacral Decubitus Planned procedure Excision and Debridement of sacral decubitus Past Medical History Past Medical History: Includes Endo: Diabetes Surgery & Anesthesia Issues No known issue Meds Anticoagulation: Yes Beta Jordyn within 24 hr: Yes Reason Beta Jordyn not given: Pt. not on B-Jordyn Reported Medications Insulin Lispro (Humalog Kwikpen U-100) 100 Unit/1 Ml Insuln.pen, 0 SQ SLIDING SCALE, EA IF BS 151-200=1 UNIT,201-250=2 UNITS,251-300=3 UNITS,301-350=4 UNITS,351-400=5 UNITS, IF >400=6 UNITS AND CALL 01/26/19 Dariel Gissell/Mancos Oil (Venelex Ointment) 60 Gm Oint..gm., 1 APPLIC TOP NEEDED, #1 TUB 01/26/19 Multivit/Ca Carb/B Cmplx/Fa* (Wendi-Cathi*) 1 Tab Tab, 1 TAB PO DAILY, TAB 01/26/19 Metoclopramide* (Reglan*) 5 Mg Tablet, 5 MG PO BEFORE MEALS, TAB 01/26/19 Protein Supplement (Promod) 946 Ml Liquid, 30 ML PO DAILY 01/26/19 Lactose-Free Food (Nutritional Supplement) 237 Ml Liquid, 1 PO BID 01/26/19 Morphine Sulfate* (Morphine* Liq) 10 Mg/0.5 Ml Disp.syrin, 6 MG SL Q4H PRN for PAIN 7-10/10, ML 01/26/19 Ipratropium-Albuterol (Ipratropium-Albuterol) 0.5-3 Mg/3 Ml Ampul.neb, 3 ML INHALATION TID, #30 VIAL 01/26/19 Heparin Sod,Porcine/0.9 % NaCl (Heparin 5,000 Unit/5 ml-Ns) 5,000 Unit/5 Ml Syringe, 5000 UNIT IV Q8H 01/26/19 Ondansetron Hcl* (Zofran*) 4 Mg Tablet, 4 MG PO Q6H PRN for NAUSEA AND OR VOMITI NG, TAB 01/26/19 Citalopram Hydrobromide* (Citalopram Hydrobromide*) 20 Mg Tablet, 20 MG PO DAILY, #30 TAB 01/26/19 Bisacodyl* (Bisacodyl*) 5 Mg Tablet.dr, 10 MG PO Q24H PRN for CONSTIPATION, TAB 01/26/19 Diphenhydramine Hcl* (Diphenhydramine Hcl*) 25 Mg Capsule, 25 MG PO Q6 PRN for ITCHING, CAP 01/26/19 Polyethylene Glycol* (Polyethylene Glycol*) 17 Gm Powd.pack, 17 GM PO DAILY, #30 PACKET 11/18/18 Pantoprazole* (Pantoprazole*) 40 Mg Tablet.dr, 40 MG PO DAILY, TAB 11/18/18 Metoprolol Tartrate* (Lopressor*) 25 Mg Tablet, 25 MG PO BID, #60 TAB HOLD IF SBP<110 OR HR<60 11/18/18 Losartan Potassium* (Losartan Potassium*) 50 Mg Tablet, 50 MG PO BID, TAB HOLD IFSBP<110 OR HR<60 11/18/18 Levothyroxine Sodium* (Levothyroxine Sodium*) 100 Mcg Tablet, 100 MCG PO BEFORE BREAKFAST, #30 TAB 11/18/18 Insulin Detemir (Levemir) 100 Unit/1 Ml Vial, 6 UNITS SQ QHS 11/18/18 Folic Acid* (Folic Acid*) 1 Mg Tablet, 1 MG PO DAILY, TAB 11/18/18 Zinc Sulfate* (Zinc Sulfate*) 220 Mg Cap, 220 MG PO DAILY, CAP 11/18/18 Ascorbic Acid (Vitamin C) 500 Mg Tab, 500 MG PO DAILY, TAB 11/18/18 Acetaminophen* (Acetaminophen*) 325 Mg Tablet, 325 MG PO Q4H PRN for PAIN AND OR ELEVATED TEMP, #30 TAB FOR MILD PAIN 1-311/18/18 Trazodone Hcl* (Trazodone Hcl*) 50 Mg Tablet, 50 MG PO QHS, #30 TAB 11/18/18 Tramadol HCl (Tramadol HCl) 50 Mg Tablet, 50 MG PO Q6H PRN for PAIN, #120 TAB 11/18/18 Prednisolone Acetate* (Pred Forte*) 5 Ml Susp, 1 DROP RIGHT EYE BID, EA 11/18/18 Docusate Sodium* (Colace*) 100 Mg Capsule, 100 MG PO BID, #30 CAP 11/18/18 Atorvastatin Calcium* (Atorvastatin Calcium*) 20 Mg Tablet, 20 MG PO QHS, #30 TAB 11/18/18 Amlodipine Besylate* (Norvasc*) 5 Mg Tablet, 5 MG PO QHS, TAB HOLD IF SBP<110 OR HR<60 11/18/18 Amiodarone Hcl* (Amiodarone Hcl*) 200 Mg Tablet, 200 MG PO DAILY, #30 TAB 11/18/18 Discontinued Reported Medications Multivitamins* (Theragran*) 1 Tab Tab, 1 TAB PO DAILY, TAB 11/18/18 Midodrine* (Midodrine*) 10 Mg Tablet, 10 MG PO Q8, TAB 11/18/18 Lorazepam* (Lorazepam*) 1 Mg Tablet, 1 MG PO Q8 PRN for ANXIETY, #60 TAB 11/18/18 Loperamide Hcl* (Loperamide Hcl*) 2 Mg Cap, 2 MG PO Q8, CAP 11/18/18 Simethicone (GAS RELIEF) 80 Mg Tab.chew, 80 MG PO BID, TAB.CHEW 11/18/18 Sodium Chloride (Saline Nasal Mist) 126 Ml Mist, 2 SPRAY NASAL TID, BOTTLE 11/18/18 Albuterol Sulfate* (Albuterol Sulfate* Neb) 0.083%-3 Ml Neb, 2.5 MG NEB Q6 PRN for WHEEZING AND SOB, #30 VIAL 11/18/18 Lactobacillus Acidophilus/Pect (Acidophilus-Pectin Capsule) 1 Each Capsule, 1 EACH PO DAILY, CAP 11/18/18 Clotrimazole (Clotrimazole) Vaginal Cream..g., 1 APPLIC VAG HS, EA 11/18/18 Citalopram Hydrobromide* (Citalopram Hydrobromide*) 10 Mg Tablet, 10 MG PO DAILY, #30 TAB 11/18/18 Clonidine Hcl* (Clonidine Hcl*) 0.1 Mg Tab, 0.1 MG PO Q4H PRN for ELEVATED BLOOD PRESSURE, TAB 11/18/18 Apixaban* (Eliquis*) 2.5 Mg Tablet, 2.5 MG PO BID, TAB 11/18/18 Current Medications Amiodarone HCl (Cordarone) 200 mg DAILY PO Last administered on 01/29/19at 09:32; Admin Dose 200 MG; Start 01/27/19 at 09:00 Ascorbic Acid (Vitamin C) 500 mg DAILY PO Last administered on 01/29/19 09:31; Admin Dose 500 MG; Start 01/27/19 at 09:00 Atorvastatin Calcium (Lipitor) 20 mg QHS PO Last administered on 01/28/19 21:40; Admin Dose 20 MG; Start 01/26/19 at 21:00 Bisacodyl (Dulcolax) 10 mg Q24H PRN PO CONSTIPATION; Start 01/26/19 at 20:00 Citalopram Hydrobromide (Celexa) 20 mg DAILY PO Last administered on 01/29/19 09:31; Admin Dose 20 MG; Start 01/27/19 at 09:00 Docusate Sodium (Colace) 100 mg BID PO Last administered on 01/29/19 09:31; Admin Dose 100 MG; Start 01/26/19 at 21:00 Folic Acid (Folic Acid) 1 mg DAILY PO Last administered on 01/29/19 09:31; Admin Dose 1 MG; Start 01/27/19 at 09:00 Insulin Detemir (Levemir) 6 units QHS SC Last administered on 01/28/19 21:59; Admin Dose 6 UNITS; Start 01/26/19 at 21:00 Levothyroxine Sodium (Synthroid) 100 mcg BEFORE BREAKFAST PO Last administered on 01/29/19 06:18; Admin Dose 100 MCG; Start 01/27/19 at 07:00 Metoclopramide HCl (Reglan) 5 mg BEFORE MEALS PO Last administered on 01/29/19 09:40; Admin Dose 5 MG; Start 01/27/19 at 07:30 Metoprolol Tartrate (Lopressor) 25 mg BID PO Last administered on 01/27/19 23:01; Admin Dose 25 MG; Start 01/26/19 at 21:00 Multivit/Ca Carb/ B Cmplx/FA/Prenat (Wendi-Cathi) 1 tab DAILY PO Last administered on 01/29/19 09:31; Admin Dose 1 TAB; Start 01/27/19 at 09:00 Ondansetron HCl (Zofran Tab) 4 mg Q6H PRN PO NAUSEA AND/OR VOMITING Last administered on 01/27/19 23:26; Admin Dose 4 MG; Start 01/26/19 at 20:00 Pantoprazole (Protonix Tab) 40 mg DAILY PO Last administered on 01/29/19 09:31; Admin Dose 40 MG; Start 01/27/19 at 09:00 Polyethylene Glycol (Miralax) 17 gm DAILY PO Last administered on 01/29/19 09:46; Admin Dose 17 GM; Start 01/27/19 at 09:00 Prednisolone Acetate (Pred-Forte 1%) 1 drop BID RIGHT EYE Last administered on 01/29/19 09:31; Admin Dose 1 DROP; Start 01/26/19 at 21:00 Zinc Sulfate (Zinc Sulfate) 220 mg DAILY PO Last administered on 01/29/19 09:31; Admin Dose 220 MG; Start 01/27/19 at 09:00 Vancomycin HCl (Vanco Iv Per Pharmacy) VANCOMYCIN PER PHARMACY PER PROTOCOL XX ; Start 01/26/19 at 20:30 Insulin Aspart (Novolog Insulin Pen) NOVOLOG *MODERATE* ALGORITHM WITH MEALS BEDTIME SC ; Start 01/26/19 at 21:00 Heparin Sodium (Porcine) (Heparin (5000 Units/1ml)) 5,000 unit BID SC Last administered on 01/29/19 09:34; Admin Dose 5,000 UNIT; Start 01/26/19 at 21:00 Morphine Sulfate (morphine) 2 mg Q4H PRN IV SEVERE PAIN LEVEL 7-10; Start 01/26/19 at 20:30 Miscellaneous Information 1 ea NOTE XX ; Start 01/26/19 at 23:45 Glucose (Glutose) 15 gm Q15M PRN PO DECREASED GLUCOSE; Start 01/26/19 at 23:45 Glucose (Glutose) 22.5 gm Q15M PRN PO DECREASED GLUCOSE; Start 01/26/19 at 23:45 Dextrose (D50w Syringe) 25 ml Q15M PRN IV DECREASED GLUCOSE Last administered on 01/28/19at 07:50; Admin Dose 25 ML; Start 01/26/19 at 23:45 Dextrose (D50w Syringe) 50 ml Q15M PRN IV DECREASED GLUCOSE; Start 01/26/19 at 23:45 Glucagon (Glucagen) 1 mg Q15M PRN IM DECREASED GLUCOSE; Start 01/26/19 at 23:45 Glucose (Glutose) 15 gm Q15M PRN BUCCAL DECREASED GLUCOSE; Start 01/26/19 at 23:45 Alteplase, Recombinant (Cathflo (Activase)) 2 mg MAY REPEAT X1 PRN CATHETER IF CATHETER REMAINS OCCULUDED; Start 01/27/19 at 07:00 Tramadol HCl (Ultram) 50 mg Q6H PO Last administered on 01/29/19at 14:20; Admin Dose 50 MG; Start 01/27/19 at 08:00 Collagenase (Santyl) 1 applic DAILY TOP Last administered on 01/29/19at 09:29; Admin Dose 1 APPLIC; Start 01/28/19 at 09:00 Sodium Hypochlorite (Dakin'S (Dilute )) 1 applic DAILY IRR Last administered on 01/29/19at 09:32; Admin Dose 1 APPLIC; Start 01/28/19 at 09:00 Lorazepam (Ativan) 1 mg Q8H PRN PO ANXIETY; Start 01/27/19 at 22:30 Mupirocin (Bactroban) 1 applic BID TOP Last administered on 01/29/19at 09:30; Admin Dose 1 APPLIC; Start 01/28/19 at 21:00 Epoetin Indra (Epogen (Esrd)) 8,000 units TuThSa@17 SC ; Start 01/30/19 at 17:00 Megestrol Acetate (Megace) 40 mg DAILY PO ; Start 01/29/19 at 09:00; Status UNV Vancomycin HCl 250 ml @ 125 mls/hr 1000 IVPB Last administered on 01/29/19at 09:29; Admin Dose 125 MLS/HR; Start 01/29/19 at 10:00; Stop 01/29/19 at 19:00 Meropenem/Sodium Chloride 50 ml @ 100 mls/hr Q24H IVPB Last administered on 01/29/19at 14:20; Admin Dose 100 MLS/HR; Start 01/29/19 at 13:00 Meds reviewed: Yes Allergies Coded Allergies: codeine (Verified Allergy, Unknown, 01/26/19) PT TAKES MORPHINE AT HOME, HAS HAD HYDROCODONE AT [facility] IN A PREVIOUS VISIT Allergies Reviewed: Yes Labs/Studies Labs Reviewed: Reviewed by anesthesiologist Result Diagram: 01/29/19 1057 01/29/19 1057 Laboratory Tests 01/29/19 10:57 test: N/A Studies: ECG Pre-procedure Exam Last vitals Vital Signs Date Temp Pulse Resp B/P (MAP) Pulse Ox O2 O2 Flow FiO2 Time Delivery Rate 01/29/19 98.2 66 18 138/63 96 Nasal 4.0 15:02 (88) Cannula Airway: Adequate mouth opening, Adequate thyromental dist Mallampati: Mallampati II Teeth: Normal Lung: Normal Heart: Normal ASA Physical Status ASA physical status: 3 Emergency: None Planned Anesthetic General/MAC: LMA Planned Pain Management Parenteral pain med Pre-operative Attestations Prior to commencing anesthesia and surgery, the patient was re-evaluated, there was verification of: *The patient's identity *The results of appropriate recent lab work and preoperative vital signs *The above evaluation not changing prior to induction *Anesthetic plan, risk benefits, alternative and complications discussed with patient/family; questions answered; patient/family understands, accepts and wishes to proceed. TERESA DE LA ROSA MD Jan 29, 2019 18:05
[2019-01-29] MEDS ORDERED: MIDAZOLAM 1 MG/ML 2 ML INJ ONE (18:12)
[2019-01-29] MEDS ORDERED: FENTAnyl 50 MCG/ML VIAL ONE (18:12)
[2019-01-29] MEDS ORDERED: KETAMINE (100 MG/ML) 5 ML VIAL ONE (18:19)
[2019-01-29] MEDS ORDERED: PHENYLephrine (100 MCG/ML) 5ML SYG ONE (18:27)
[2019-01-29] MEDS ORDERED: CEFAZOLIN 1 GM INJ ONE (18:45)
[2019-01-29] MEDS ORDERED: LIDOCAINE 2% (SDV) 5 ML INJ ONE (18:45)
[2019-01-29] MEDS ORDERED: PROPOFOL 20 ML ONE (18:45)
--- NOTE | 2019-01-29 19:14 | PAC ---
Date/Time of Note Date/Time of Note DATE: 01/29/19 TIME: 19:13 Post-Anesthesia Notes Post-Anesthesia Note Last documented vital signs Vital Signs Date Temp Pulse Resp B/P (MAP) Pulse Ox O2 O2 Flow FiO2 Time Delivery Rate 01/29/19 98.2 66 18 138/63 96 Nasal 4.0 15:02 (88) Cannula Activity: WNL Respiratory function: WNL Cardiovascular function: WNL Mental status: Baseline Pain reasonably controlled: Yes Hydration appropriate: Yes Nausea/Vomiting absent: Yes Comments BP:108/56, P:78, Spo2:98%, T:98,2 TERESA DE LA ROSA MD Jan 29, 2019 19:14
[2019-01-29] MEDS ORDERED: FENTAnyl 50 MCG/ML VIAL IV PRN (19:30)
[2019-01-29] MEDS ORDERED: HYDROmorphONE 1 MG/5 ML IV SYRINGE IV PRN ×2 (19:30)
[2019-01-29] MEDS ORDERED: DIPHENHYDRAMINE 50 MG INJ IV PRN (19:30)
[2019-01-29] MEDS ORDERED: EPHEDrine SULFATE 50 MG/5 ML SYG IV PRN (19:30)
[2019-01-29] MEDS ORDERED: LABETALOL HCL 20MG INJ IV PRN (19:30)
[2019-01-29] MEDS ORDERED: ONDANSETRON 4 MG INJ IV PRN (19:30)
[2019-01-29] MEDS: morphine 2 MG INJ IV PRN (21:55)
[2019-01-29] MEDS: INSULIN DETEMIR [LEVEMIR] (100 UNITS/ML) SYG SC SCH (22:07)
[2019-01-30] VITALS (14 sets, daily range): BP systolic 121–166; BP diastolic 58–82; PULSE 74–89; RESP 18–20
[2019-01-30] MEDS: ATORVASTATIN 20 MG TAB PO SCH ×2 (00:16→20:47)
[2019-01-30] MEDS: traMADol 50 MG TAB PO SCH ×4 (02:27→20:47)
[2019-01-30] MEDS: morphine 2 MG INJ IV PRN ×3 (02:48→23:21)
[2019-01-30] MEDS: METOCLOPRAMIDE 5 MG TAB PO SCH ×3 (06:31→17:30)
[2019-01-30] MEDS: LEVOTHYROXINE 100 MCG TAB PO SCH (06:31)
[2019-01-30] MEDS: INSULIN ASPART [NOVOLOG] 3 ML PEN SC SCH ×4 (08:00→21:00)
[2019-01-30] MEDS: DOCUSATE SODIUM 100 MG CAP PO SCH ×2 (09:00→20:47)
[2019-01-30] MEDS: POLYETHYLENE GLYCOL 17 GM PACKET PO SCH (09:00)
[2019-01-30] MEDS: COLLAGENASE 5 GM (UD JAR) TOP SCH (09:51)
[2019-01-30] MEDS: BALSAM PERU/CASTOR OIL 60 GM TUBE TOP SCH ×2 (09:51→20:49)
[2019-01-30] MEDS: SODIUM HYPOCHLORITE (1/40) 1 LITER BTL IRR SCH (09:51)
[2019-01-30] MEDS: MUPIROCIN 2% 22 GM OINT TOP SCH ×2 (09:51→20:49)
[2019-01-30] MEDS: FOLIC ACID 1 MG TAB PO SCH (09:52)
[2019-01-30] MEDS: ASCORBIC ACID 500 MG TAB PO SCH (09:52)
[2019-01-30] MEDS: MULTIVIT/CA CARB/B CMPLX/FA TAB PO SCH (09:52)
[2019-01-30] MEDS: ZINC SULFATE 220 MG CAP PO SCH (09:52)
[2019-01-30] MEDS: CITALOPRAM 20 MG TAB PO SCH (09:52)
[2019-01-30] MEDS: METOPROLOL 25 MG TAB PO SCH ×2 (09:53→20:47)
[2019-01-30] MEDS: AMIODARONE 200 MG TAB PO SCH (09:53)
[2019-01-30] MEDS: PANTOPRAZOLE (EC) 40 MG TAB PO SCH (09:53)
[2019-01-30] MEDS: PREDNISOLONE ACET 1% 5 ML OPH RIGHT EYE SCH ×2 (09:55→20:48)
[2019-01-30] MEDS: HEPARIN 5,000 UNIT/1 ML VIAL SC SCH ×2 (10:03→21:01)
[2019-01-30] MEDS: ONDANSETRON 4 MG TAB PO PRN (10:43)
--- NOTE | 2019-01-30 11:19 | CONS ---
Assessment/Plan Assessment/Plan Assessment/Plan (Daily) - ESRD on Hemodialysis - Anemia of Chronic Disease - DM / DM Nephropathy - CAD / CHF - Hypoalbuminia - Hypothyroid - Failure to thrive - Leukocytosis - Non healing wound PLAN: Bedside dialysis Aim for UD ~ 1-2 liter as tolerates IV Antibiotics Local wound care Follow up on H/H ( on long acting EPO as out patient ) High protein diet / Supplements Had HD yesterday Plan for HD next 01/29/2019 Monitor H/H High Protein diet More awake & alert Poor appetite with low albumin High protein diet Add Nepro supplement Add Megace Increase EPO Check IRON Bedside dialysis 01/29/2019 using 3K+ bath today Post debridement of the sacral wound Had HD 01/29/2019 Next HD Friday Increase protein Diet Consultation Date/Type/Reason Admit Date/Time Jan 26, 2019 at 17:32 Initial Consult Date 01/27/19 Type of Consult - Nephrology ( Dialysis Dependent ) Requesting Provider: ALEXUS VALENCIA MD Date/Time of Note DATE: 01/30/19 TIME: 11:17 24 HR Interval Summary Constitutional: no complaints, improved Exam/Review of Systems Exam Vitals Vital Signs Date Temp Pulse Resp B/P (MAP) Pulse Ox O2 O2 Flow FiO2 Time Delivery Rate 01/30/19 98.3 75 20 153/70 96 11:10 (97) 01/30/19 Nasal 3.0 08:00 Cannula Intake and Output 01/29/19 01/29/19 01/30/19 1515:00 23:00 07:00 IntakeIntake Total 300 ml 350 ml OutputOutput Total 25 ml 2400 ml BalanceBalance 300 ml 325 ml -2400 ml Constitutional: alert, oriented Respiratory: crackles/rales Cardiovascular: regular rate and rhythm, systolic murmur Gastrointestinal: soft Results Result Diagram: 01/30/19 0752 01/30/19 0752 Results 24hrs Laboratory Tests Test 01/29/19 19:01 01/29/19 21:57 01/30/19 07:52 01/30/19 08:22 Bedside Glucose 99 109 46 *L 70 White Blood Count 11.0 H Red Blood Count 2.80 L Hemoglobin 8.2 L Hematocrit 28.3 L Mean Corpuscular 101.1 H Volume Mean Corpuscular 29.3 Hemoglobin Mean Corpuscular 29.0 L Hemoglobin Concent Red Cell 15.0 H Distribution Width Platelet Count 214 Mean Platelet Volume 9.2 Immature 0.700 H Granulocytes % Neutrophils % 79.4 H Lymphocytes % 7.4 L Monocytes % 11.4 H Eosinophils % 0.8 Basophils % 0.3 Nucleated Red Blood 0.0 Cells % Immature 0.080 H Granulocytes # Neutrophils # 8.7 H Lymphocytes # 0.8 Monocytes # 1.3 H Eosinophils # 0.1 Basophils # 0.0 Nucleated Red Blood 0.0 Cells # Sodium Level 138 Potassium Level 3.4 L Chloride Level 101 Carbon Dioxide Level 30 Anion Gap 7 Blood Urea Nitrogen 17 # Creatinine 1.98 H Est Glomerular 25 L Filtrat Rate mL/min Glucose Level 37 #*L Calcium Level 8.8 Magnesium Level 2.0 Test 01/30/19 09:48 Bedside Glucose 98 Medications Medication Current Medications Amiodarone HCl (Cordarone) 200 mg DAILY PO Last administered on 01/30/19at 09:53; Admin Dose 200 MG; Start 01/27/19 at 09:00 Ascorbic Acid (Vitamin C) 500 mg DAILY PO Last administered on 01/30/19at 09:52; Admin Dose 500 MG; Start 01/27/19 at 09:00 Atorvastatin Calcium (Lipitor) 20 mg QHS PO Last administered on 01/30/19at 00:16; Admin Dose 20 MG; Start 01/26/19 at 21:00 Bisacodyl (Dulcolax) 10 mg Q24H PRN PO CONSTIPATION; Start 01/26/19 at 20:00 Citalopram Hydrobromide (Celexa) 20 mg DAILY PO Last administered on 01/30/19 09:52; Admin Dose 20 MG; Start 01/27/19 at 09:00 Docusate Sodium (Colace) 100 mg BID PO Last administered on 01/29/19 09:31; Admin Dose 100 MG; Start 01/26/19 at 21:00 Folic Acid (Folic Acid) 1 mg DAILY PO Last administered on 01/30/19 09:52; Admin Dose 1 MG; Start 01/27/19 at 09:00 Insulin Detemir (Levemir) 6 units QHS SC Last administered on 01/29/19 22:07; Admin Dose 6 UNITS; Start 01/26/19 at 21:00 Levothyroxine Sodium (Synthroid) 100 mcg BEFORE BREAKFAST PO Last administered on 01/30/19 06:31; Admin Dose 100 MCG; Start 01/27/19 at 07:00 Metoclopramide HCl (Reglan) 5 mg BEFORE MEALS PO Last administered on 01/30/19 06:31; Admin Dose 5 MG; Start 01/27/19 at 07:30 Metoprolol Tartrate (Lopressor) 25 mg BID PO Last administered on 01/30/19 09:53; Admin Dose 25 MG; Start 01/26/19 at 21:00 Multivit/Ca Carb/ B Cmplx/FA/Prenat (Wendi-Cathi) 1 tab DAILY PO Last administered on 01/30/19 09:52; Admin Dose 1 TAB; Start 01/27/19 at 09:00 Ondansetron HCl (Zofran Tab) 4 mg Q6H PRN PO NAUSEA AND/OR VOMITING Last administered on 01/30/19 10:43; Admin Dose 4 MG; Start 01/26/19 at 20:00 Pantoprazole (Protonix Tab) 40 mg DAILY PO Last administered on 01/30/19 09:53; Admin Dose 40 MG; Start 01/27/19 at 09:00 Polyethylene Glycol (Miralax) 17 gm DAILY PO Last administered on 01/29/19 09:46; Admin Dose 17 GM; Start 01/27/19 at 09:00 Prednisolone Acetate (Pred-Forte 1%) 1 drop BID RIGHT EYE Last administered on 01/30/19 09:55; Admin Dose 1 DROP; Start 01/26/19 at 21:00 Zinc Sulfate (Zinc Sulfate) 220 mg DAILY PO Last administered on 01/30/19 09:52; Admin Dose 220 MG; Start 01/27/19 at 09:00 Vancomycin HCl (Vanco Iv Per Pharmacy) VANCOMYCIN PER PHARMACY PER PROTOCOL XX ; Start 01/26/19 at 20:30 Insulin Aspart (Novolog Insulin Pen) NOVOLOG *MODERATE* ALGORITHM WITH MEALS BEDTIME SC ; Start 01/26/19 at 21:00 Heparin Sodium (Porcine) (Heparin (5000 Units/1ml)) 5,000 unit BID SC Last administered on 01/30/19 10:03; Admin Dose 5,000 UNIT; Start 01/26/19 at 21:00 Morphine Sulfate (morphine) 2 mg Q4H PRN IV SEVERE PAIN LEVEL 7-10 Last administered on 01/30/19 07:11; Admin Dose 2 MG; Start 01/26/19 at 20:30 Miscellaneous Information 1 ea NOTE XX ; Start 01/26/19 at 23:45 Glucose (Glutose) 15 gm Q15M PRN PO DECREASED GLUCOSE; Start 01/26/19 at 23:45 Glucose (Glutose) 22.5 gm Q15M PRN PO DECREASED GLUCOSE; Start 01/26/19 at 23:45 Dextrose (D50w Syringe) 25 ml Q15M PRN IV DECREASED GLUCOSE Last administered on 01/28/19at 07:50; Admin Dose 25 ML; Start 01/26/19 at 23:45 Dextrose (D50w Syringe) 50 ml Q15M PRN IV DECREASED GLUCOSE; Start 01/26/19 at 23:45 Glucagon (Glucagen) 1 mg Q15M PRN IM DECREASED GLUCOSE; Start 01/26/19 at 23:45 Glucose (Glutose) 15 gm Q15M PRN BUCCAL DECREASED GLUCOSE; Start 01/26/19 at 2 3:45 Alteplase, Recombinant (Cathflo (Activase)) 2 mg MAY REPEAT X1 PRN CATHETER IF CATHETER REMAINS OCCULUDED; Start 01/27/19 at 07:00 Tramadol HCl (Ultram) 50 mg Q6H PO Last administered on 01/30/19at 02:27; Admin Dose 50 MG; Start 01/27/19 at 08:00 Collagenase (Santyl) 1 applic DAILY TOP Last administered on 01/30/19 09:51; Admin Dose 1 APPLIC; Start 01/28/19 at 09:00 Sodium Hypochlorite (Dakin'S (Dilute )) 1 applic DAILY IRR Last administered on 01/30/19 09:51; Admin Dose 1 APPLIC; Start 01/28/19 at 09:00 Lorazepam (Ativan) 1 mg Q8H PRN PO ANXIETY; Start 01/27/19 at 22:30 Mupirocin (Bactroban) 1 applic BID TOP Last administered on 01/30/19 09:51; Admin Dose 1 APPLIC; Start 01/28/19 at 21:00 Epoetin Indra (Epogen (Esrd)) 8,000 units TuThSa@17 SC ; Start 01/30/19 at 17:00 Megestrol Acetate (Megace) 40 mg DAILY PO ; Start 01/29/19 at 09:00; Status UNV Meropenem/Sodium Chloride 50 ml @ 100 mls/hr Q24H IVPB Last administered on 01/29/19 14:20; Admin Dose 100 MLS/HR; Start 01/29/19 at 13:00 ANIBAL ALMANZAR MD Jan 30, 2019 11:19
--- NOTE | 2019-01-30 12:18 | PN ---
Date/Time of Note Date/Time of Note DATE: 01/30/19 TIME: 12:18 Assessment/Plan VTE Prophylaxis Risk score (from Ns)>0 risk: 8 SCD applied (from Nsg): Yes Pharmacological prophylaxis: LMWH Lines/Catheters IV Catheter Type (from Nrsg): PICC Line Central line still needed: Yes Urinary Cath still in place: No Assessment/Plan Hospital Course 1. Generalized weakness and recurrent vomiting. The patient's current weight is only 70 kg and back in November 2018, she was 91 kilograms, although at that time she used to have fluid overload and gross diastolic heart failure and her breathing has improved after weight loss. Will call Dr. Ramos for GI evaluation. 2. Multiple decubitus. - Wound care consult - per surgery- plan for debridement tomorrow -ID consult from Dr. Guevara will be obtained. 3. End-stage renal disease. - HD per nephro 4. Anemia of chronic kidney disease, will start Procrit. 5. Diabetes. Will continue Levemir and sliding scale insulin. 6. Right eye blindness. 7. Hypothyroidism. Will continue Synthroid and will obtain TSH and T4. Result Diagram: 01/30/19 0752 01/30/19 0752 Results 24hrs Laboratory Tests Test 01/29/19 19:01 01/29/19 21:57 01/30/19 07:52 01/30/19 08:22 Bedside Glucose 99 109 46 *L 70 White Blood Count 11.0 H Red Blood Count 2.80 L Hemoglobin 8.2 L Hematocrit 28.3 L Mean Corpuscular 101.1 H Volume Mean Corpuscular 29.3 Hemoglobin Mean Corpuscular 29.0 L Hemoglobin Concent Red Cell 15.0 H Distribution Width Platelet Count 214 Mean Platelet Volume 9.2 Immature 0.700 H Granulocytes % Neutrophils % 79.4 H Lymphocytes % 7.4 L Monocytes % 11.4 H Eosinophils % 0.8 Basophils % 0.3 Nucleated Red Blood 0.0 Cells % Immature 0.080 H Granulocytes # Neutrophils # 8.7 H Lymphocytes # 0.8 Monocytes # 1.3 H Eosinophils # 0.1 Basophils # 0.0 Nucleated Red Blood 0.0 Cells # Sodium Level 138 Potassium Level 3.4 L Chloride Level 101 Carbon Dioxide Level 30 Anion Gap 7 Blood Urea Nitrogen 17 # Creatinine 1.98 H Est Glomerular 25 L Filtrat Rate mL/min Glucose Level 37 #*L Calcium Level 8.8 Magnesium Level 2.0 Test 01/30/19 09:48 01/30/19 11:46 Bedside Glucose 98 112 Subjective 24 Hr Interval Summary Free Text/Dictation Patient feels better Exam/Review of Systems Exam Vitals Vital Signs Date Temp Pulse Resp B/P (MAP) Pulse Ox O2 O2 Flow FiO2 Time Delivery Rate 01/30/19 98.3 75 20 153/70 96 11:10 (97) 01/30/19 Nasal 3.0 08:00 Cannula Intake and Output 01/29/19 01/29/19 01/30/19 1515:00 23:00 07:00 IntakeIntake Total 300 ml 350 ml OutputOutput Total 25 ml 2400 ml BalanceBalance 300 ml 325 ml -2400 ml Constitutional: well developed Head: normocephalic, atraumatic Neck: supple Respiratory: diminished breath sounds Cardiovascular: regular rate and rhythm Gastrointestinal: soft, non-tender Extremities: normal pulses Results Results 24hrs Laboratory Tests Test 01/29/19 19:01 01/29/19 21:57 01/30/19 07:52 01/30/19 08:22 Bedside Glucose 99 109 46 *L 70 White Blood Count 11.0 H Red Blood Count 2.80 L Hemoglobin 8.2 L Hematocrit 28.3 L Mean Corpuscular 101.1 H Volume Mean Corpuscular 29.3 Hemoglobin Mean Corpuscular 29.0 L Hemoglobin Concent Red Cell 15.0 H Distribution Width Platelet Count 214 Mean Platelet Volume 9.2 Immature 0.700 H Granulocytes % Neutrophils % 79.4 H Lymphocytes % 7.4 L Monocytes % 11.4 H Eosinophils % 0.8 Basophils % 0.3 Nucleated Red Blood 0.0 Cells % Immature 0.080 H Granulocytes # Neutrophils # 8.7 H Lymphocytes # 0.8 Monocytes # 1.3 H Eosinophils # 0.1 Basophils # 0.0 Nucleated Red Blood 0.0 Cells # Sodium Level 138 Potassium Level 3.4 L Chloride Level 101 Carbon Dioxide Level 30 Anion Gap 7 Blood Urea Nitrogen 17 # Creatinine 1.98 H Est Glomerular 25 L Filtrat Rate mL/min Glucose Level 37 #*L Calcium Level 8.8 Magnesium Level 2.0 Test 01/30/19 09:48 01/30/19 11:46 Bedside Glucose 98 112 Medications Medication Current Medications Amiodarone HCl (Cordarone) 200 mg DAILY PO Last administered on 01/30/19 09:53; Admin Dose 200 MG; Start 01/27/19 at 09:00 Ascorbic Acid (Vitamin C) 500 mg DAILY PO Last administered on 01/30/19 09:52; Admin Dose 500 MG; Start 01/27/19 at 09:00 Atorvastatin Calcium (Lipitor) 20 mg QHS PO Last administered on 01/30/19 00:16; Admin Dose 20 MG; Start 01/26/19 at 21:00 Bisacodyl (Dulcolax) 10 mg Q24H PRN PO CONSTIPATION; Start 01/26/19 at 20:00 Citalopram Hydrobromide (Celexa) 20 mg DAILY PO Last administered on 01/30/19 09:52; Admin Dose 20 MG; Start 01/27/19 at 09:00 Docusate Sodium (Colace) 100 mg BID PO Last administered on 01/29/19 09:31; Admin Dose 100 MG; Start 01/26/19 at 21:00 Folic Acid (Folic Acid) 1 mg DAILY PO Last administered on 01/30/19 09:52; Admin Dose 1 MG; Start 01/27/19 at 09:00 Insulin Detemir (Levemir) 6 units QHS SC Last administered on 01/29/19 22:07; Admin Dose 6 UNITS; Start 01/26/19 at 21:00 Levothyroxine Sodium (Synthroid) 100 mcg BEFORE BREAKFAST PO Last administered on 01/30/19 06:31; Admin Dose 100 MCG; Start 01/27/19 at 07:00 Metoclopramide HCl (Reglan) 5 mg BEFORE MEALS PO Last administered on 01/30/19 12:12; Admin Dose 5 MG; Start 01/27/19 at 07:30 Metoprolol Tartrate (Lopressor) 25 mg BID PO Last administered on 01/30/19 09:53; Admin Dose 25 MG; Start 01/26/19 at 21:00 Multivit/Ca Carb/ B Cmplx/FA/Prenat (Wendi-Cathi) 1 tab DAILY PO Last administered on 01/30/19 09:52; Admin Dose 1 TAB; Start 01/27/19 at 09:00 Ondansetron HCl (Zofran Tab) 4 mg Q6H PRN PO NAUSEA AND/OR VOMITING Last administered on 01/30/19 10:43; Admin Dose 4 MG; Start 01/26/19 at 20:00 Pantoprazole (Protonix Tab) 40 mg DAILY PO Last administered on 01/30/19 09:53; Admin Dose 40 MG; Start 01/27/19 at 09:00 Polyethylene Glycol (Miralax) 17 gm DAILY PO Last administered on 01/29/19 09:46; Admin Dose 17 GM; Start 01/27/19 at 09:00 Prednisolone Acetate (Pred-Forte 1%) 1 drop BID RIGHT EYE Last administered on 01/30/19 09:55; Admin Dose 1 DROP; Start 01/26/19 at 21:00 Zinc Sulfate (Zinc Sulfate) 220 mg DAILY PO Last administered on 01/30/19 09:52; Admin Dose 220 MG; Start 01/27/19 at 09:00 Vancomycin HCl (Vanco Iv Per Pharmacy) VANCOMYCIN PER PHARMACY PER PROTOCOL XX ; Start 01/26/19 at 20:30 Insulin Aspart (Novolog Insulin Pen) NOVOLOG *MODERATE* ALGORITHM WITH MEALS BEDTIME SC ; Start 01/26/19 at 21:00 Heparin Sodium (Porcine) (Heparin (5000 Units/1ml)) 5,000 unit BID SC Last administered on 01/30/19 10:03; Admin Dose 5,000 UNIT; Start 01/26/19 at 21:00 Morphine Sulfate (morphine) 2 mg Q4H PRN IV SEVERE PAIN LEVEL 7-10 Last administered on 01/30/19 07:11; Admin Dose 2 MG; Start 01/26/19 at 20:30 Miscellaneous Information 1 ea NOTE XX ; Start 01/26/19 at 23:45 Glucose (Glutose) 15 gm Q15M PRN PO DECREASED GLUCOSE; Start 01/26/19 at 23:45 Glucose (Glutose) 22.5 gm Q15M PRN PO DECREASED GLUCOSE; Start 01/26/19 at 23:45 Dextrose (D50w Syringe) 25 ml Q15M PRN IV DECREASED GLUCOSE Last administered on 01/28/19 07:50; Admin Dose 25 ML; Start 01/26/19 at 23:45 Dextrose (D50w Syringe) 50 ml Q15M PRN IV DECREASED GLUCOSE; Start 01/26/19 at 23:45 Glucagon (Glucagen) 1 mg Q15M PRN IM DECREASED GLUCOSE; Start 01/26/19 at 23:45 Glucose (Glutose) 15 gm Q15M PRN BUCCAL DECREASED GLUCOSE; Start 01/26/19 at 23:45 Alteplase, Recombinant (Cathflo (Activase)) 2 mg MAY REPEAT X1 PRN CATHETER IF CATHETER REMAINS OCCULUDED; Start 01/27/19 at 07:00 Tramadol HCl (Ultram) 50 mg Q6H PO Last administered on 01/30/19at 02:27; Admin Dose 50 MG; Start 01/27/19 at 08:00 Collagenase (Santyl) 1 applic DAILY TOP Last administered on 01/30/19 09:51; Admin Dose 1 APPLIC; Start 01/28/19 at 09:00 Sodium Hypochlorite (Dakin'S (Dilute )) 1 applic DAILY IRR Last administered on 01/30/19at 09:51; Admin Dose 1 APPLIC; Start 01/28/19 at 09:00 Lorazepam (Ativan) 1 mg Q8H PRN PO ANXIETY; Start 01/27/19 at 22:30 Mupirocin (Bactroban) 1 applic BID TOP Last administered on 01/30/19at 09:51; Admin Dose 1 APPLIC; Start 01/28/19 at 21:00 Epoetin Indra (Epogen (Esrd)) 8,000 units TuThSa@17 SC ; Start 01/30/19 at 17:00 Megestrol Acetate (Megace) 40 mg DAILY PO ; Start 01/29/19 at 09:00; Status UNV Meropenem/Sodium Chloride 50 ml @ 100 mls/hr Q24H IVPB Last administered on 01/29/19at 14:20; Admin Dose 100 MLS/HR; Start 01/29/19 at 13:00 PATTI MCQUEEN Jan 30, 2019 12:18
--- NOTE | 2019-01-30 12:43 | CONS ---
Consultation Date/Type/Reason Admit Date/Time Jan 26, 2019 at 17:32 Initial Consult Date SUBJECTIVE: Patient is sleeping, afebrile looks comfortable. S/P surgical debridement of pressure ulcers. VS: stable T: 98.3 LABS: Reviewed. WBC- 11.0 Microbiology: Wound cultures growing E. coli ESBL, staph aureus and enterococcus species and Proteus mirabilis, blood cultures remain negative WBC 10 platelets 188 neutrophils 79.5 Antimicrobials: Vancomycin, meropenem Send him again [place] may be both his legs look more indwelling: Left upper extremity PICC line right upper extremity AV fistula PHYSICAL EXAMINATION: GENERAL: This is a fragile, wasted, well-developed, elderly woman, who is lethargic, arousable. The patient is in no distress. HEENT: Head atraumatic, normocephalic. Sclerae anicteric. The patient has right eye blindness. Buccal mucosa pale, dry. NECK: Supple. CHEST: Rise symmetrical. Breath sounds diminished to bases. HEART: S1, S2. ABDOMEN: Obese, soft, bowel tones present. EXTREMITIES: Bilateral edema. SKIN: The patient has a large necrotic wounds on bilateral buttocks, left buttock and left posterior thigh area , also, necrotic wound. The patient has pressure sores on her left heel as well. Assessment: 1. Multiple necrotic infected wounds 2. End-stage renal disease, hemodialysis dependent 3. Diabetes 4. Hypertension 5. MRSA colonization Plan: Patient is stable. Continue current antibiotics and topical Bactroban. Daily wound care per surgical recommendations. S/P surgical debridement yest erday. Pending gram stain culture. Requesting Provider: ALEXUS VALENCIA MD Date/Time of Note DATE: 01/30/19 TIME: 12:40 Exam/Review of Systems Exam Vitals Vital Signs Date Temp Pulse Resp B/P (MAP) Pulse Ox O2 O2 Flow FiO2 Time Delivery Rate 01/30/19 77 12:29 01/30/19 98.3 20 153/70 96 11:10 (97) 01/30/19 Nasal 3.0 08:00 Cannula Intake and Output 01/29/19 01/29/19 01/30/19 1515:00 23:00 07:00 IntakeIntake Total 300 ml 350 ml OutputOutput Total 25 ml 2400 ml BalanceBalance 300 ml 325 ml -2400 ml Results Result Diagram: 01/30/19 0752 01/30/19 0752 Results 24hrs Laboratory Tests Test 01/29/19 19:01 01/29/19 21:57 01/30/19 07:52 01/30/19 08:22 Bedside Glucose 99 109 46 *L 70 White Blood Count 11.0 H Red Blood Count 2.80 L Hemoglobin 8.2 L Hematocrit 28.3 L Mean Corpuscular 101.1 H Volume Mean Corpuscular 29.3 Hemoglobin Mean Corpuscular 29.0 L Hemoglobin Concent Red Cell 15.0 H Distribution Width Platelet Count 214 Mean Platelet Volume 9.2 Immature 0.700 H Granulocytes % Neutrophils % 79.4 H Lymphocytes % 7.4 L Monocytes % 11.4 H Eosinophils % 0.8 Basophils % 0.3 Nucleated Red Blood 0.0 Cells % Immature 0.080 H Granulocytes # Neutrophils # 8.7 H Lymphocytes # 0.8 Monocytes # 1.3 H Eosinophils # 0.1 Basophils # 0.0 Nucleated Red Blood 0.0 Cells # Sodium Level 138 Potassium Level 3.4 L Chloride Level 101 Carbon Dioxide Level 30 Anion Gap 7 Blood Urea Nitrogen 17 # Creatinine 1.98 H Est Glomerular 25 L Filtrat Rate mL/min Glucose Level 37 #*L Calcium Level 8.8 Magnesium Level 2.0 Test 01/30/19 09:48 01/30/19 11:46 Bedside Glucose 98 112 Medications Medication Current Medications Amiodarone HCl (Cordarone) 200 mg DAILY PO Last administered on 01/30/19at 09:53; Admin Dose 200 MG; Start 01/27/19 at 09:00 Ascorbic Acid (Vitamin C) 500 mg DAILY PO Last administered on 01/30/19at 09:52; Admin Dose 500 MG; Start 01/27/19 at 09:00 Atorvastatin Calcium (Lipitor) 20 mg QHS PO Last administered on 01/30/19at 00:16; Admin Dose 20 MG; Start 01/26/19 at 21:00 Bisacodyl (Dulcolax) 10 mg Q24H PRN PO CONSTIPATION; Start 01/26/19 at 20:00 Citalopram Hydrobromide (Celexa) 20 mg DAILY PO Last administered on 01/30/19at 09:52; Admin Dose 20 MG; Start 01/27/19 at 09:00 Docusate Sodium (Colace) 100 mg BID PO Last administered on 01/29/19 09:31; Admin Dose 100 MG; Start 01/26/19 at 21:00 Folic Acid (Folic Acid) 1 mg DAILY PO Last administered on 01/30/19 09:52; Admin Dose 1 MG; Start 01/27/19 at 09:00 Insulin Detemir (Levemir) 6 units QHS SC Last administered on 01/29/19 22:07; Admin Dose 6 UNITS; Start 01/26/19 at 21:00 Levothyroxine Sodium (Synthroid) 100 mcg BEFORE BREAKFAST PO Last administered on 01/30/19 06:31; Admin Dose 100 MCG; Start 01/27/19 at 07:00 Metoclopramide HCl (Reglan) 5 mg BEFORE MEALS PO Last administered on 9at 12:12; Admin Dose 5 MG; Start 01/27/19 at 07:30 Metoprolol Tartrate (Lopressor) 25 mg BID PO Last administered on 01/30/19 09:53; Admin Dose 25 MG; Start 01/26/19 at 21:00 Multivit/Ca Carb/ B Cmplx/FA/Prenat (Wendi-Cathi) 1 tab DAILY PO Last administered on 01/30/19 09:52; Admin Dose 1 TAB; Start 01/27/19 at 09:00 Ondansetron HCl (Zofran Tab) 4 mg Q6H PRN PO NAUSEA AND/OR VOMITING Last admi nistered on 01/30/19 10:43; Admin Dose 4 MG; Start 01/26/19 at 20:00 Pantoprazole (Protonix Tab) 40 mg DAILY PO Last administered on 01/30/19 09:53; Admin Dose 40 MG; Start 01/27/19 at 09:00 Polyethylene Glycol (Miralax) 17 gm DAILY PO Last administered on 01/29/19 09:46; Admin Dose 17 GM; Start 01/27/19 at 09:00 Prednisolone Acetate (Pred-Forte 1%) 1 drop BID RIGHT EYE Last administered on 01/30/19 09:55; Admin Dose 1 DROP; Start 01/26/19 at 21:00 Zinc Sulfate (Zinc Sulfate) 220 mg DAILY PO Last administered on 01/30/19 09:52; Admin Dose 220 MG; Start 01/27/19 at 09:00 Vancomycin HCl (Vanco Iv Per Pharmacy) VANCOMYCIN PER PHARMACY PER PROTOCOL XX ; Start 01/26/19 at 20:30 Insulin Aspart (Novolog Insulin Pen) NOVOLOG *MODERATE* ALGORITHM WITH MEALS BEDTIME SC ; Start 01/26/19 at 21:00 Heparin Sodium (Porcine) (Heparin (5000 Units/1ml)) 5,000 unit BID SC Last administered on 01/30/19at 10:03; Admin Dose 5,000 UNIT; Start 01/26/19 at 21:00 Morphine Sulfate (morphine) 2 mg Q4H PRN IV SEVERE PAIN LEVEL 7-10 Last administered on 01/30/19at 07:11; Admin Dose 2 MG; Start 01/26/19 at 20:30 Miscellaneous Information 1 ea NOTE XX ; Start 01/26/19 at 23:45 Glucose (Glutose) 15 gm Q15M PRN PO DECREASED GLUCOSE; Start 01/26/19 at 23:45 Glucose (Glutose) 22.5 gm Q15M PRN PO DECREASED GLUCOSE; Start 01/26/19 at 23:45 Dextrose (D50w Syringe) 25 ml Q15M PRN IV DECREASED GLUCOSE Last administered on 01/28/19at 07:50; Admin Dose 25 ML; Start 01/26/19 at 23:45 Dextrose (D50w Syringe) 50 ml Q15M PRN IV DECREASED GLUCOSE; Start 01/26/19 at 23:45 Glucagon (Glucagen) 1 mg Q15M PRN IM DECREASED GLUCOSE; Start 01/26/19 at 23:45 Glucose (Glutose) 15 gm Q15M PRN BUCCAL DECREASED GLUCOSE; Start 01/26/19 at 23:45 Alteplase, Recombinant (Cathflo (Activase)) 2 mg MAY REPEAT X1 PRN CATHETER IF CATHETER REMAINS OCCULUDED; Start 01/27/19 at 07:00 Tramadol HCl (Ultram) 50 mg Q6H PO Last administered on 01/30/19at 02:27; Admin Dose 50 MG; Start 01/27/19 at 08:00 Collagenase (Santyl) 1 applic DAILY TOP Last administered on 01/30/19at 09:51; Admin Dose 1 APPLIC; Start 01/28/19 at 09:00 Sodium Hypochlorite (Dakin'S (Dilute )) 1 applic DAILY IRR Last administered on 01/30/19at 09:51; Admin Dose 1 APPLIC; Start 01/28/19 at 09:00 Lorazepam (Ativan) 1 mg Q8H PRN PO ANXIETY; Start 01/27/19 at 22:30 Mupirocin (Bactroban) 1 applic BID TOP Last administered on 01/30/19at 09:51; Admin Dose 1 APPLIC; Start 01/28/19 at 21:00 Epoetin Indra (Epogen (Esrd)) 8,000 units TuThSa@17 SC ; Start 01/30/19 at 17:00 Megestrol Acetate (Megace) 40 mg DAILY PO ; Start 01/29/19 at 09:00; Status UNV Meropenem/Sodium Chloride 50 ml @ 100 mls/hr Q24H IVPB Last administered on 01/29/19at 14:20; Admin Dose 100 MLS/HR; Start 01/29/19 at 13:00 RICH HOLLAND Jan 30, 2019 12:43
[2019-01-30] MEDS: MEROPENEM 500MG/50 ML (PMX) 50 ML IVPB SCH (13:51)
--- NOTE | 2019-01-30 14:19 | CONS ---
Assessment/Plan Assessment/Plan Hospital Course (Demo Recall) IMPRESSION: 1. Preop evaluation. The patient to undergo EGD whose 2D echo I just read revealing EF lower limits of normal, approximately 50% with no significant contraindicated valvular lesions and negative troponin x1 since admit, patient is okay to proceed at a moderate cardiovascular risk. 2. Congestive heart failure, diastolic acute on chronic. 3. Hypertension. 4. Cardiac arrhythmia, on amiodarone, in sinus rhythm by EKG. 5. Hypothyroidism. 6. Diabetes mellitus. 7. Nausea and vomiting. 8. Generalized weakness. 9. Decubitus ulcers s/p debridement 10. Anemia. 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 Recc: -Tele -Contineu BB and follow reasoanble BP -continue statin -Continue abx's and f/u cx data Consultation Date/Type/Reason Admit Date/Time Jan 26, 2019 at 17:32 Initial Consult Date 01/27/19 Type of Consult Cardiology Reason for Consultation Preop Requesting Provider: ALEXUS VALENCIA MD Date/Time of Note DATE: 01/30/19 TIME: 14:17 Exam/Review of Systems Vital Signs Vitals Vital Signs Date Temp Pulse Resp B/P (MAP) Pulse Ox O2 O2 Flow FiO2 Time Delivery Rate 01/30/19 77 12:29 01/30/19 98.3 20 153/70 96 11:10 (97) 01/30/19 Nasal 3.0 08:00 Cannula Intake and Output 01/29/19 01/29/19 01/30/19 1515:00 23:00 07:00 IntakeIntake Total 300 ml 350 ml OutputOutput Total 25 ml 2400 ml BalanceBalance 300 ml 325 ml -2400 ml Exam Exam Review of Systems: CONSTITUTIONAL: No fevers, chills. PULMONARY: No sob CARDIOVASCULAR: No chest pain/palpitations GASTROINTESTINAL: No nausea/vomiting. GENITOURINARY: No hematuria/dysuria. MUSCULOSKELETAL: No myagias/arthalgias. PSYCHIATRIC: The patient denies depression. NEUROLOGIC: No weakness Constitutional: alert Psych: no complaints Head: normocephalic ENMT: mucosa pink and moist Neck: supple, jvd Respiratory: diminished breath sounds Cardiovascular: regular rate and rhythm Gastrointestinal: soft, non-tender Musculoskeletal: muscle tone (normal) Extremities: edema (none) Neurological: other (No focal deficits) Labs Result Diagram: 3/23/19 0752 01/30/19 0752 Results 24hrs Laboratory Tests Test 01/29/19 19:01 01/29/19 21:57 01/30/19 07:52 01/30/19 08:22 Bedside Glucose 99 109 46 *L 70 White Blood Count 11.0 H Red Blood Count 2.80 L Hemoglobin 8.2 L Hematocrit 28.3 L Mean Corpuscular 101.1 H Volume Mean Corpuscular 29.3 Hemoglobin Mean Corpuscular 29.0 L Hemoglobin Concent Red Cell 15.0 H Distribution Width Platelet Count 214 Mean Platelet Volume 9.2 Immature 0.700 H Granulocytes % Neutrophils % 79.4 H Lymphocytes % 7.4 L Monocytes % 11.4 H Eosinophils % 0.8 Basophils % 0.3 Nucleated Red Blood 0.0 Cells % Immature 0.080 H Granulocytes # Neutrophils # 8.7 H Lymphocytes # 0.8 Monocytes # 1.3 H Eosinophils # 0.1 Basophils # 0.0 Nucleated Red Blood 0.0 Cells # Sodium Level 138 Potassium Level 3.4 L Chloride Level 101 Carbon Dioxide Level 30 Anion Gap 7 Blood Urea Nitrogen 17 # Creatinine 1.98 H Est Glomerular 25 L Filtrat Rate mL/min Glucose Level 37 #*L Calcium Level 8.8 Magnesium Level 2.0 Test 01/30/19 09:48 01/30/19 11:46 Bedside Glucose 98 112 Medications Medications Current Medications Amiodarone HCl (Cordarone) 200 mg DAILY PO Last administered on 01/30/19at 09:53; Admin Dose 200 MG; Start 01/27/19 at 09:00 Ascorbic Acid (Vitamin C) 500 mg DAILY PO Last administered on 01/30/19at 09:52; Admin Dose 500 MG; Start 01/27/19 at 09:00 Atorvastatin Calcium (Lipitor) 20 mg QHS PO Last administered on 01/30/19at 00:16; Admin Dose 20 MG; Start 01/26/19 at 21:00 Bisacodyl (Dulcolax) 10 mg Q24H PRN PO CONSTIPATION; Start 01/26/19 at 20:00 Citalopram Hydrobromide (Celexa) 20 mg DAILY PO Last administered on 01/30/19at 09:52; Admin Dose 20 MG; Start 01/27/19 at 09:00 Docusate Sodium (Colace) 100 mg BID PO Last administered on 01/29/19 09:31; Admin Dose 100 MG; Start 01/26/19 at 21:00 Folic Acid (Folic Acid) 1 mg DAILY PO Last administered on 01/30/19 09:52; Admin Dose 1 MG; Start 01/27/19 at 09:00 Insulin Detemir (Levemir) 6 units QHS SC Last administered on 01/29/19 22:07; Admin Dose 6 UNITS; Start 01/26/19 at 21:00 Levothyroxine Sodium (Synthroid) 100 mcg BEFORE BREAKFAST PO Last administered on 01/30/19 06:31; Admin Dose 100 MCG; Start 01/27/19 at 07:00 Metoclopramide HCl (Reglan) 5 mg BEFORE MEALS PO Last administered on 01/30/19 12:12; Admin Dose 5 MG; Start 01/27/19 at 07:30 Metoprolol Tartrate (Lopressor) 25 mg BID PO Last administered on 01/30/19 09:53; Admin Dose 25 MG; Start 01/26/19 at 21:00 Multivit/Ca Carb/ B Cmplx/FA/Prenat (Wendi-Cathi) 1 tab DAILY PO Last ad ministered on 01/30/19 09:52; Admin Dose 1 TAB; Start 01/27/19 at 09:00 Ondansetron HCl (Zofran Tab) 4 mg Q6H PRN PO NAUSEA AND/OR VOMITING Last administered on 01/30/19 10:43; Admin Dose 4 MG; Start 01/26/19 at 20:00 Pantoprazole (Protonix Tab) 40 mg DAILY PO Last administered on 01/30/19 09:5 3; Admin Dose 40 MG; Start 01/27/19 at 09:00 Polyethylene Glycol (Miralax) 17 gm DAILY PO Last administered on 01/29/19 09:46; Admin Dose 17 GM; Start 01/27/19 at 09:00 Prednisolone Acetate (Pred-Forte 1%) 1 drop BID RIGHT EYE Last administered on 01/30/19 09:55; Admin Dose 1 DROP; Start 01/26/19 at 21:00 Zinc Sulfate (Zinc Sulfate) 220 mg DAILY PO Last administered on 01/30/19 09:52; Admin Dose 220 MG; Start 01/27/19 at 09:00 Vancomycin HCl (Vanco Iv Per Pharmacy) VANCOMYCIN PER PHARMACY PER PROTOCOL XX ; Start 01/26/19 at 20:30 Insulin Aspart (Novolog Insulin Pen) NOVOLOG *MODERATE* ALGORITHM WITH MEALS BEDTIME SC ; Start 01/26/19 at 21:00 Heparin Sodium (Porcine) (Heparin (5000 Units/1ml)) 5,000 unit BID SC Last administered on 01/30/19at 10:03; Admin Dose 5,000 UNIT; Start 01/26/19 at 21:00 Morphine Sulfate (morphine) 2 mg Q4H PRN IV SEVERE PAIN LEVEL 7-10 Last administered on 01/30/19 07:11; Admin Dose 2 MG; Start 01/26/19 at 20:30 Miscellaneous Information 1 ea NOTE XX ; Start 01/26/19 at 23:45 Glucose (Glutose) 15 gm Q15M PRN PO DECREASED GLUCOSE; Start 01/26/19 at 23:45 Glucose (Glutose) 22.5 gm Q15M PRN PO DECREASED GLUCOSE; Start 01/26/19 at 23:45 Dextrose (D50w Syringe) 25 ml Q15M PRN IV DECREASED GLUCOSE Last administered on 01/28/19at 07:50; Admin Dose 25 ML; Start 01/26/19 at 23:45 Dextrose (D50w Syringe) 50 ml Q15M PRN IV DECREASED GLUCOSE; Start 01/26/19 at 23:45 Glucagon (Glucagen) 1 mg Q15M PRN IM DECREASED GLUCOSE; Start 01/26/19 at 23:45 Glucose (Glutose) 15 gm Q15M PRN BUCCAL DECREASED GLUCOSE; Start 01/26/19 at 23:45 Alteplase, Recombinant (Cathflo (Activase)) 2 mg MAY REPEAT X1 PRN CATHETER IF CATHETER REMAINS OCCULUDED; Start 01/27/19 at 07:00 Tramadol HCl (Ultram) 50 mg Q6H PO Last administered on 01/30/19at 13:50; Admin Dose 50 MG; Start 01/27/19 at 08:00 Collagenase (Santyl) 1 applic DAILY TOP Last administered on 01/30/19at 09:51; Admin Dose 1 APPLIC; Start 01/28/19 at 09:00 Sodium Hypochlorite (Dakin'S (Dilute 1/40)) 1 applic DAILY IRR Last administered on 01/30/19at 09:51; Admin Dose 1 APPLIC; Start 01/28/19 at 09:00 Lorazepam (Ativan) 1 mg Q8H PRN PO ANXIETY; Start 01/27/19 at 22:30 Mupirocin (Bactroban) 1 applic BID TOP Last administered on 01/30/19at 09:51; Admin Dose 1 APPLIC; Start 01/28/19 at 21:00 Epoetin Indra (Epogen (Esrd)) 8,000 units TuThSa@17 SC ; Start 01/30/19 at 17:00 Megestrol Acetate (Megace Susp) 400 mg DAILY PO ; Start 01/30/19 at 14:30 Meropenem/Sodium Chloride 50 ml @ 100 mls/hr Q24H IVPB Last administered on 01/30/19at 13:51; Admin Dose 100 MLS/HR; Start 01/29/19 at 13:00 ALIREZA LEE Jan 30, 2019 14:19
[2019-01-30] MEDS: MEGESTROL (40 MG/ML) 10ML CUP PO SCH (15:13)
[2019-01-30] MEDS: EPOETIN 4000 UNITS/1 ML INJ (ESRD) SC SCH (17:31)
--- NOTE | 2019-01-30 20:17 | PN ---
Date/Time of Note Date/Time of Note DATE: 01/30/19 TIME: 20:16 Assessment/Plan Lines/Catheters IV Catheter Type (from [facility] PICC Line [place] in Place (from [facility]): No Assessment/Plan Chief Complaint/Hosp Course 1. Sacral and bilateral ischial wounds: wnd cx noted; status post sacrum and right ischial debridement 01/29/19 -Further debridement as needed -local care -frequent turning and off-loading -low air loss mattress -vitamin c -short term zinc -optimize nutrition 2. Abdominal pain and generalized weakness:; Status post EGD: Gastritis -further w/u per med team -PPI 3. ESRD -limit nephrotoxins -HD per renal -renally dose meds 4. Anemia: -monitor and transfuse as needed 5. Diabetes -glucose monitoring 6. Hypothyroidism -med mgt 7. Leukocytosis: -Monitor Thank you. Patient seen and examined in collaboration with Dr. Simón Almanza. Subjective 24 Hr Interval Summary Confused. Status post debridement of sacral ischial wounds yesterday. No fevers, chills, sob, congested cough, cp, palpitations, hoffman, dizziness, nausea, vomiting, diarrhea, dysuria. Exam/Review of Systems Vital Signs Vitals Vital Signs Date Temp Pulse Resp B/P (MAP) Pulse Ox O2 O2 Flow FiO2 Time Delivery Rate 01/30/19 98.3 89 19 157/82 100 20:00 (107) 01/30/19 3.0 14:50 01/30/19 Nasal 08:00 Cannula Intake and Output 01/29/19 01/29/19 01/30/19 1515:00 23:00 07:00 IntakeIntake Total 300 ml 350 ml OutputOutput Total 25 ml 2400 ml BalanceBalance 300 ml 325 ml -2400 ml Exam Free Text/Dictation Constitutional: alert, oriented, obese Psych: anxiety Head: normocephalic, atraumatic Eyes: nl conjunctiva, EOMI, nl lids, nl sclera ENMT: nl external ears & nose, nl lips & teeth, mucosa pink and moist Neck: supple, non-tender; No jvd Respiratory: normal air movement; No congested cough, No labored breathing Cardiovascular: regular rate and rhythm, nl pulses; No edema Gastrointestinal: soft, non-tender, distended Genitourinary - Female: nl external genitalia Musculoskeletal: nl extremities to inspection, nl gait and stance Extremities: normal pulses Neurological: nl mental status, nl speech, nl strength Skin: other (sacral: Packed, improved odor; right ischium: Packed, improved odor; left ischium: unstageable); No rash or lesions Results Result Diagram: 01/30/19 0752 01/30/19 0752 ARSLAN COATES NP Jan 30, 2019 20:17
[2019-01-30] MEDS: INSULIN DETEMIR [LEVEMIR] (100 UNITS/ML) SYG SC SCH (21:01)
[2019-01-31] VITALS (11 sets, daily range): BP systolic 147–163; BP diastolic 61–96; PULSE 65–84; RESP 18–19
[2019-01-31] MEDS: traMADol 50 MG TAB PO SCH ×4 (02:21→21:09)
[2019-01-31] MEDS: LEVOTHYROXINE 100 MCG TAB PO SCH (06:36)
[2019-01-31] MEDS: METOCLOPRAMIDE 5 MG TAB PO SCH ×3 (06:36→17:24)
[2019-01-31] MEDS: INSULIN ASPART [NOVOLOG] 3 ML PEN SC SCH ×4 (07:41→21:00)
[2019-01-31] MEDS: ASCORBIC ACID 500 MG TAB PO SCH (08:40)
[2019-01-31] MEDS: COLLAGENASE 5 GM (UD JAR) TOP SCH (08:40)
[2019-01-31] MEDS: DOCUSATE SODIUM 100 MG CAP PO SCH ×2 (08:40→21:07)
[2019-01-31] MEDS: FOLIC ACID 1 MG TAB PO SCH (08:40)
[2019-01-31] MEDS: ZINC SULFATE 220 MG CAP PO SCH (08:40)
[2019-01-31] MEDS: MEGESTROL (40 MG/ML) 10ML CUP PO SCH (08:40)
[2019-01-31] MEDS: AMIODARONE 200 MG TAB PO SCH (08:41)
[2019-01-31] MEDS: MULTIVIT/CA CARB/B CMPLX/FA TAB PO SCH (08:41)
[2019-01-31] MEDS: CITALOPRAM 20 MG TAB PO SCH (08:42)
[2019-01-31] MEDS: PANTOPRAZOLE (EC) 40 MG TAB PO SCH (08:42)
[2019-01-31] MEDS: METOPROLOL 25 MG TAB PO SCH ×2 (08:42→21:08)
[2019-01-31] MEDS: POLYETHYLENE GLYCOL 17 GM PACKET PO SCH (08:43)
[2019-01-31] MEDS: PREDNISOLONE ACET 1% 5 ML OPH RIGHT EYE SCH ×2 (08:43→21:07)
[2019-01-31] MEDS: MUPIROCIN 2% 22 GM OINT TOP SCH ×2 (08:44→21:09)
[2019-01-31] MEDS: BALSAM PERU/CASTOR OIL 60 GM TUBE TOP SCH ×2 (08:44→21:09)
[2019-01-31] MEDS: HEPARIN 5,000 UNIT/1 ML VIAL SC SCH ×2 (08:49→21:30)
[2019-01-31] MEDS: SODIUM HYPOCHLORITE (1/40) 1 LITER BTL IRR SCH (08:51)
[2019-01-31] MEDS: morphine 2 MG INJ IV PRN ×2 (10:44→17:24)
--- NOTE | 2019-01-31 12:19 | PN ---
Date/Time of Note Date/Time of Note DATE: 01/31/19 TIME: 12:18 Assessment/Plan VTE Prophylaxis Risk score (from [facility])>0 risk: 4 [place] [facility] SCD contraindicated: other Pharmacological prophylaxis: LMWH Lines/Catheters [facility] PICC Line Central line still needed: Yes Urinary Cath still in place: No Assessment/Plan Hospital Course 1. Generalized weakness and recurrent vomiting. The patient's current weight is only 70 kg and back in November 2018, she was 91 kilograms, although at that time she used to have fluid overload and gross diastolic heart failure and her breathing has improved after weight loss. Will call Dr. Ramos for GI evaluation. 2. Multiple decubitus. - Wound care consult - per surgery- plan for debridement tomorrow -ID consult from Dr. Guevara will be obtained. 3. End-stage renal disease. - HD per nephro 4. Anemia of chronic kidney disease, will start Procrit. 5. Diabetes. Will continue Levemir and sliding scale insulin. 6. Right eye blindness. 7. Hypothyroidism. Will continue Synthroid and will obtain TSH and T4. Result Diagram: 01/30/19 0752 01/30/19 0752 Results 24hrs Laboratory Tests Test 01/30/19 17:08 01/30/19 20:45 01/31/19 07:39 Bedside Glucose 121 155 82 Subjective 24 Hr Interval Summary Free Text/Dictation Patient has no complaints Exam/Review of Systems Exam Vitals Vital Signs Date Temp Pulse Resp B/P (MAP) Pulse Ox O2 O2 Flow FiO2 Time Delivery Rate 01/31/19 98.6 75 18 147/65 94 11:01 (92) 01/31/19 Nasal 3.0 08:45 Cannula Intake and Output 01/30/19 01/30/19 01/31/19 1515:00 23:00 07:00 IntakeIntake Total 800 ml 300 ml BalanceBalance 800 ml 300 ml Constitutional: well developed Head: normocephalic, atraumatic Neck: supple Respiratory: diminished breath sounds Cardiovascular: regular rate and rhythm Gastrointestinal: soft, non-tender Extremities: normal pulses Results Results 24hrs Laboratory Tests Test 01/30/19 17:08 01/30/19 20:45 01/31/19 07:39 Bedside Glucose 121 155 82 Medications Medication Current Medications Amiodarone HCl (Cordarone) 200 mg DAILY PO Last administered on 01/31/19 08:41; Admin Dose 200 MG; Start 01/27/19 at 09:00 Ascorbic Acid (Vitamin C) 500 mg DAILY PO Last administered on 01/31/19 08:40; Admin Dose 500 MG; Start 01/27/19 at 09:00 Atorvastatin Calcium (Lipitor) 20 mg QHS PO Last administered on 01/30/19 20 :47; Admin Dose 20 MG; Start 01/26/19 at 21:00 Bisacodyl (Dulcolax) 10 mg Q24H PRN PO CONSTIPATION; Start 01/26/19 at 20:00 Citalopram Hydrobromide (Celexa) 20 mg DAILY PO Last administered on 01/31/19 08:42; Admin Dose 20 MG; Start 01/27/19 at 09:00 Docusate Sodium (Colace) 100 mg BID PO Last administered on 01/31/19 08:40; Admin Dose 100 MG; Start 01/26/19 at 21:00 Folic Acid (Folic Acid) 1 mg DAILY PO Last administered on 01/31/19 08:40; Admin Dose 1 MG; Start 01/27/19 at 09:00 Insulin Detemir (Levemir) 6 units QHS SC Last administered on 01/30/19 21:01; Admin Dose 6 UNITS; Start 01/26/19 at 21:00 Levothyroxine Sodium (Synthroid) 100 mcg BEFORE BREAKFAST PO Last administered on 01/31/19 06:36; Admin Dose 100 MCG; Start 01/27/19 at 07:00 Metoclopramide HCl (Reglan) 5 mg BEFORE MEALS PO Last administered on 01/31/19 12:01; Admin Dose 5 MG; Start 01/27/19 at 07:30 Metoprolol Tartrate (Lopressor) 25 mg BID PO Last administered on 01/31/19 08:42; Admin Dose 25 MG; Start 01/26/19 at 21:00 Multivit/Ca Carb/ B Cmplx/FA/Prenat (Wendi-Cathi) 1 tab DAILY PO Last administered on 01/31/19 08:41; Admin Dose 1 TAB; Start 01/27/19 at 09:00 Ondansetron HCl (Zofran Tab) 4 mg Q6H PRN PO NAUSEA AND/OR VOMITING Last administered on 01/30/19 10:43; Admin Dose 4 MG; Start 01/26/19 at 20:00 Pantoprazole (Protonix Tab) 40 mg DAILY PO Last administered on 01/31/19 08:42; Admin Dose 40 MG; Start 01/27/19 at 09:00 Polyethylene Glycol (Miralax) 17 gm DAILY PO Last administered on 01/31/19 08:43; Admin Dose 17 GM; Start 01/27/19 at 09:00 Prednisolone Acetate (Pred-Forte 1%) 1 drop BID RIGHT EYE Last administered on 01/31/19 08:43; Admin Dose 1 DROP; Start 01/26/19 at 21:00 Zinc Sulfate (Zinc Sulfate) 220 mg DAILY PO Last administered on 01/31/19 08:40; Admin Dose 220 MG; Start 01/27/19 at 09:00 Vancomycin HCl (Vanco Iv Per Pharmacy) VANCOMYCIN PER PHARMACY PER PROTOCOL XX ; Start 01/26/19 at 20:30 Insulin Aspart (Novolog Insulin Pen) NOVOLOG *MODERATE* ALGORITHM WITH MEALS BEDTIME SC ; Start 01/26/19 at 21:00 Heparin Sodium (Porcine) (Heparin (5000 Units/1ml)) 5,000 unit BID SC Last administered on 01/31/19 08:49; Admin Dose 5,000 UNIT; Start 01/26/19 at 21:00 Morphine Sulfate (morphine) 2 mg Q4H PRN IV SEVERE PAIN LEVEL 7-10 Last administered on 01/31/19 10:44; Admin Dose 2 MG; Start 01/26/19 at 20:30 Miscellaneous Information 1 ea NOTE XX ; Start 01/26/19 at 23:45 Glucose (Glutose) 15 gm Q15M PRN PO DECREASED GLUCOSE; Start 01/26/19 at 23:45 Glucose (Glutose) 22.5 gm Q15M PRN PO DECREASED GLUCOSE; Start 01/26/19 at 23:45 Dextrose (D50w Syringe) 25 ml Q15M PRN IV DECREASED GLUCOSE Last administered on 01/28/19 07:50; Admin Dose 25 ML; Start 01/26/19 at 23:45 Dextrose (D50w Syringe) 50 ml Q15M PRN IV DECREASED GLUCOSE; Start 01/26/19 at 23:45 Glucagon (Glucagen) 1 mg Q15M PRN IM DECREASED GLUCOSE; Start 01/26/19 at 23:45 Glucose (Glutose) 15 gm Q15M PRN BUCCAL DECREASED GLUCOSE; Start 01/26/19 at 23:45 Alteplase, Recombinant (Cathflo (Activase)) 2 mg MAY REPEAT X1 PRN CATHETER IF CATHETER REMAINS OCCULUDED; Start 01/27/19 at 07:00 Tramadol HCl (Ultram) 50 mg Q6H PO Last administered on 01/31/19 08:41; Admin Dose 50 MG; Start 01/27/19 at 08:00 Collagenase (Santyl) 1 applic DAILY TOP Last administered on 01/31/19 08:40; Admin Dose 1 APPLIC; Start 01/28/19 at 09:00 Sodium Hypochlorite (Dakin'S (Dilute )) 1 applic DAILY IRR Last administered on 01/31/19 08:51; Admin Dose 1 APPLIC; Start 01/28/19 at 09:00 Lorazepam (Ativan) 1 mg Q8H PRN PO ANXIETY; Start 01/27/19 at 22:30 Mupirocin (Bactroban) 1 applic BID TOP Last administered on 01/31/19 08:44; Admin Dose 1 APPLIC; Start 01/28/19 at 21:00 Epoetin Indra (Epogen (Esrd)) 8,000 units TuThSa@17 SC Last administered on 01/30/19 17:31; Admin Dose 8,000 UNITS; Start 01/30/19 at 17:00 Megestrol Acetate (Megace Susp) 400 mg DAILY PO Last administered on 01/31/19 08:40; Admin Dose 400 MG; Start 01/30/19 at 14:30 Meropenem/Sodium Chloride 50 ml @ 100 mls/hr Q24H IVPB Last administered on 01/30/19 13:51; Admin Dose 100 MLS/HR; Start 01/29/19 at 13:00 PATTI MCQUEEN 24, 2019 12:19
--- NOTE | 2019-01-31 13:00 | CONS ---
Assessment/Plan Assessment/Plan Hospital Course (Demo Recall) IMPRESSION: 1. Preop evaluation. The patient to undergo EGD whose 2D echo I just read revealing EF lower limits of normal, approximately 50% with no significant contraindicated valvular lesions and negative troponin x1 since admit, patient is okay to proceed at a moderate cardiovascular risk. Now post-op s/p endoscopy and debridement of decub ulcer 2. Congestive heart failure, diastolic acute on chronic. 3. Hypertension. 4. Cardiac arrhythmia, on amiodarone, in sinus rhythm by EKG. 5. Hypothyroidism. 6. Diabetes mellitus. 7. Nausea and vomiting. 8. Generalized weakness. 9. Decubitus ulcers s/p debridement 10. Anemia. 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 Recc: -Tele -Contineu BB and add hydralazine to improve BP -continue statin -Continue abx's and f/u cx data -local wound care Consultation Date/Type/Reason Admit Date/Time Jan 26, 2019 at 17:32 Initial Consult Date 01/27/19 Type of Consult Cardiology Reason for Consultation CHF Requesting Provider: ALEXUS VALENCIA MD Date/Time of Note DATE: 01/31/19 TIME: 12:58 Exam/Review of Systems Vital Signs Vitals Vital Signs Date Temp Pulse Resp B/P (MAP) Pulse Ox O2 O2 Flow FiO2 Time Delivery Rate 01/31/19 98.6 75 18 147/65 94 11:01 (92) 01/31/19 Nasal 3.0 08:45 Cannula Intake and Output 01/30/19 01/30/19 01/31/19 1515:00 23:00 07:00 IntakeIntake Total 800 ml 300 ml BalanceBalance 800 ml 300 ml Exam Exam Review of Systems: CONSTITUTIONAL: No fevers, chills. PULMONARY: No sob CARDIOVASCULAR: No chest pain/palpitations GASTROINTESTINAL: No nausea/vomiting. GENITOURINARY: No hematuria/dysuria. MUSCULOSKELETAL: No myagias/arthalgias. PSYCHIATRIC: The patient denies depression. NEUROLOGIC: generalized weakness Constitutional: alert Psych: no complaints Head: normocephalic ENMT: mucosa pink and moist Neck: supple, jvd ( 9 cm water) Respiratory: diminished breath sounds (at bases/B) Cardiovascular: regular rate and rhythm Gastrointestinal: soft, non-tender Musculoskeletal: muscle weakness (mild generalized) Extremities: edema (trace/B) Labs Result Diagram: 01/30/19 0752 01/30/19 0752 Results 24hrs Laboratory Tests Test 01/30/19 17:08 01/30/19 20:45 01/31/19 07:39 01/31/19 12:00 Bedside Glucose 121 155 82 117 Medications Medications Current Medications Amiodarone HCl (Cordarone) 200 mg DAILY PO Last administered on 01/31/19 08:41; Admin Dose 200 MG; Start 01/27/19 at 09:00 Ascorbic Acid (Vitamin C) 500 mg DAILY PO Last administered on 01/31/19 08:40; Admin Dose 500 MG; Start 01/27/19 at 09:00 Atorvastatin Calcium (Lipitor) 20 mg QHS PO Last administered on 01/30/19 20:4 7; Admin Dose 20 MG; Start 01/26/19 at 21:00 Bisacodyl (Dulcolax) 10 mg Q24H PRN PO CONSTIPATION; Start 01/26/19 at 20:00 Citalopram Hydrobromide (Celexa) 20 mg DAILY PO Last administered on 01/31/19 08:42; Admin Dose 20 MG; Start 01/27/19 at 09:00 Docusate Sodium (Colace) 100 mg BID PO Last administered on 01/31/19 08:40; Admin Dose 100 MG; Start 01/26/19 at 21:00 Folic Acid (Folic Acid) 1 mg DAILY PO Last administered on 01/31/19 08:40; Admin Dose 1 MG; Start 01/27/19 at 09:00 Insulin Detemir (Levemir) 6 units QHS SC Last administered on 01/30/19 21:01; Admin Dose 6 UNITS; Start 01/26/19 at 21:00 Levothyroxine Sodium (Synthroid) 100 mcg BEFORE BREAKFAST PO Last administered on 01/31/19 06:36; Admin Dose 100 MCG; Start 01/27/19 at 07:00 Metoclopramide HCl (Reglan) 5 mg BEFORE MEALS PO Last administered on 01/31/19 12:01; Admin Dose 5 MG; Start 01/27/19 at 07:30 Metoprolol Tartrate (Lopressor) 25 mg BID PO Last administered on 01/31/19 08:42; Admin Dose 25 MG; Start 01/26/19 at 21:00 Multivit/Ca Carb/ B Cmplx/FA/Prenat (Wendi-Cathi) 1 tab DAILY PO Last administered on 01/31/19 08:41; Admin Dose 1 TAB; Start 01/27/19 at 09:00 Ondansetron HCl (Zofran Tab) 4 mg Q6H PRN PO NAUSEA AND/OR VOMITING Last administered on 01/30/19 10:43; Admin Dose 4 MG; Start 01/26/19 at 20:00 Pantoprazole (Protonix Tab) 40 mg DAILY PO Last administered on 01/31/19 08:42; Admin Dose 40 MG; Start 01/27/19 at 09:00 Polyethylene Glycol (Miralax) 17 gm DAILY PO Last administered on 01/31/19 08:43; Admin Dose 17 GM; Start 01/27/19 at 09:00 Prednisolone Acetate (Pred-Forte 1%) 1 drop BID RIGHT EYE Last administered on 01/31/19 08:43; Admin Dose 1 DROP; Start 01/26/19 at 21:00 Zinc Sulfate (Zinc Sulfate) 220 mg DAILY PO Last administered on 01/31/19 08:40; Admin Dose 220 MG; Start 01/27/19 at 09:00 Vancomycin HCl (Vanco Iv Per Pharmacy) VANCOMYCIN PER PHARMACY PER PROTOCOL XX ; Start 01/26/19 at 20:30 Insulin Aspart (Novolog Insulin Pen) NOVOLOG *MODERATE* ALGORITHM WITH MEALS BEDTIME SC ; Start 01/26/19 at 21:00 Heparin Sodium (Porcine) (Heparin (5000 Units/1ml)) 5,000 unit BID SC Last administered on 01/31/19 08:49; Admin Dose 5,000 UNIT; Start 01/26/19 at 21:00 Morphine Sulfate (morphine) 2 mg Q4H PRN IV SEVERE PAIN LEVEL 7-10 Last administered on 01/31/19 10:44; Admin Dose 2 MG; Start 01/26/19 at 20:30 Miscellaneous Information 1 ea NOTE XX ; Start 01/26/19 at 23:45 Glucose (Glutose) 15 gm Q15M PRN PO DECREASED GLUCOSE; Start 01/26/19 at 23:45 Glucose (Glutose) 22.5 gm Q15M PRN PO DECREASED GLUCOSE; Start 01/26/19 at 23:45 Dextrose (D50w Syringe) 25 ml Q15M PRN IV DECREASED GLUCOSE Last administered on 01/28/19 07:50; Admin Dose 25 ML; Start 01/26/19 at 23:45 Dextrose (D50w Syringe) 50 ml Q15M PRN IV DECREASED GLUCOSE; Start 01/26/19 at 23:45 Glucagon (Glucagen) 1 mg Q15M PRN IM DECREASED GLUCOSE; Start 01/26/19 at 23:45 Glucose (Glutose) 15 gm Q15M PRN BUCCAL DECREASED GLUCOSE; Start 01/26/19 at 23:45 Alteplase, Recombinant (Cathflo (Activase)) 2 mg MAY REPEAT X1 PRN CATHETER IF CATHETER REMAINS OCCULUDED; Start 01/27/19 at 07:00 Tramadol HCl (Ultram) 50 mg Q6H PO Last administered on 01/31/19 08:41; Admin Dose 50 MG; Start 01/27/19 at 08:00 Collagenase (Santyl) 1 applic DAILY TOP Last administered on 01/31/19 08:40; Admin Dose 1 APPLIC; Start 01/28/19 at 09:00 Sodium Hypochlorite (Dakin'S (Dilute )) 1 applic DAILY IRR Last administered on 01/31/19 08:51; Admin Dose 1 APPLIC; Start 01/28/19 at 09:00 Lorazepam (Ativan) 1 mg Q8H PRN PO ANXIETY; Start 01/27/19 at 22:30 Mupirocin (Bactroban) 1 applic BID TOP Last administered on 01/31/19 08:44; Admin Dose 1 APPLIC; Start 01/28/19 at 21:00 Epoetin Indra (Epogen (Esrd)) 8,000 units TuThSa@17 SC Last administered on 01/30/19 17:31; Admin Dose 8,000 UNITS; Start 01/30/19 at 17:00 Megestrol Acetate (Megace Susp) 400 mg DAILY PO Last administered on 01/31/19 08:40; Admin Dose 400 MG; Start 01/30/19 at 14:30 Meropenem/Sodium Chloride 50 ml @ 100 mls/hr Q24H IVPB Last administered on 01/30/19 13:51; Admin Dose 100 MLS/HR; Start 01/29/19 at 13:00 Miscellaneous Information (*Rx Drug Level Order Reminder*) RANDOM VANCOMYCIN LEVEL 3... ONCE ONCE XX ; Start 02/01/19 at 05:00; Stop 02/01/19 at 05:01 ALIREZA LEE Jan 31, 2019 13:00
--- NOTE | 2019-01-31 13:01 | CONS ---
Consultation Date/Type/Reason Admit Date/Time Jan 26, 2019 at 17:32 Initial Consult Date SUBJECTIVE: Patient is sleeping, afebrile looks comfortable. S/P surgical debridement of pressure ulcers. VS: stable T: 98.6 LABS: Reviewed. Microbiology: Wound cultures growing E. coli ESBL, staph aureus and enterococcus species and Proteus mirabilis, blood cultures remain negative GRAM STAIN Final POLYMORPH. LEUKOCYTE NONE SEEN GRAM POS COCCI IN PAIRS RARE GRAM NEGATIVE RODS RARE WOUND CULTURE Preliminary Organism 1 GRAM NEGATIVE EVELYN QUANTITY 1+ Organism 2 ENTEROCOCCUS SPECIES QUANTITY ISOLATED FROM BROTH ONLY Antimicrobials: Vancomycin, meropenem Send him again [place] may be both his legs look more indwelling: Left upper extremity PICC line right upper extremity AV fistula PHYSICAL EXAMINATION: GENERAL: This is a fragile, wasted, well-developed, elderly woman, who is lethargic, arousable. The patient is in no distress. HEENT: Head atraumatic, normocephalic. Sclerae anicteric. The patient has right eye blindness. Buccal mucosa pale, dry. NECK: Supple. CHEST: Rise symmetrical. Breath sounds diminished to bases. HEART: S1, S2. ABDOMEN: Obese, soft, bowel tones present. EXTREMITIES: Bilateral edema. SKIN: The patient has a large necrotic wounds on bilateral buttocks, left buttock and left posterior thigh area , also, necrotic wound. The patient has pressure sores on her left heel as well. Assessment: 1. Multiple necrotic infected wounds 2. End-stage renal disease, hemodialysis dependent 3. Diabetes 4. Hypertension 5. MRSA colonization Plan: Patient is stable. Continue current antibiotics and topical Bactroban. Daily wound care per surgical recommendations. S/P surgical debridement. Pending gram stain culture. Requesting Provider: ALEXUS VALENCIA MD Date/Time of Note DATE: 01/31/19 TIME: 12:53 Exam/Review of Systems Exam Vitals Vital Signs Date Temp Pulse Resp B/P (MAP) Pulse Ox O2 O2 Flow FiO2 Time Delivery Rate 01/31/19 98.6 75 18 147/65 94 11:01 (92) 01/31/19 Nasal 3.0 08:45 Cannula Intake and Output 01/30/19 01/30/19 01/31/19 1515:00 23:00 07:00 IntakeIntake Total 800 ml 300 ml BalanceBalance 800 ml 300 ml Results Result Diagram: 01/30/19 0752 01/30/19 0752 Results 24hrs Laboratory Tests Test 01/30/19 17:08 01/30/19 20:45 01/31/19 07:39 01/31/19 12:00 Bedside Glucose 121 155 82 117 Medications Medication Current Medications Amiodarone HCl (Cordarone) 200 mg DAILY PO Last administered on 01/31/19 08:41; Admin Dose 200 MG; Start 01/27/19 at 09:00 Ascorbic Acid (Vitamin C) 500 mg DAILY PO Last administered on 01/31/19 08:40; Admin Dose 500 MG; Start 01/27/19 at 09:00 Atorvastatin Calcium (Lipitor) 20 mg QHS PO Last administered on 01/30/19 20:47; Admin Dose 20 MG; Start 01/26/19 at 21:00 Bisacodyl (Dulcolax) 10 mg Q24H PRN PO CONSTIPATION; Start 01/26/19 at 20:00 Citalopram Hydrobromide (Celexa) 20 mg DAILY PO Last administered on 01/31/19 08:42; Admin Dose 20 MG; Start 01/27/19 at 09:00 Docusate Sodium (Colace) 100 mg BID PO Last administered on 01/31/19 08:40; Admin Dose 100 MG; Start 01/26/19 at 21:00 Folic Acid (Folic Acid) 1 mg DAILY PO Last administered on 01/31/19 08:40; Admin Dose 1 MG; Start 01/27/19 at 09:00 Insulin Detemir (Levemir) 6 units QHS SC Last administered on 01/30/19 21:01; Admin Dose 6 UNITS; Start 01/26/19 at 21:00 Levothyroxine Sodium (Synthroid) 100 mcg BEFORE BREAKFAST PO Last administered on 01/31/19 06:36; Admin Dose 100 MCG; Start 01/27/19 at 07:00 Metoclopramide HCl (Reglan) 5 mg BEFORE MEALS PO Last administered on 01/31/19 12:01; Admin Dose 5 MG; Start 01/27/19 at 07:30 Metoprolol Tartrate (Lopressor) 25 mg BID PO Last administered on 01/31/19 08:42; Admin Dose 25 MG; Start 01/26/19 at 21:00 Multivit/Ca Carb/ B Cmplx/FA/Prenat (Wendi-Cathi) 1 tab DAILY PO Last administered on 01/31/19 08:41; Admin Dose 1 TAB; Start 01/27/19 at 09:00 Ondansetron HCl (Zofran Tab) 4 mg Q6H PRN PO NAUSEA AND/OR VOMITING Last administered on 01/30/19 10:43; Admin Dose 4 MG; Start 01/26/19 at 20:00 Pantoprazole (Protonix Tab) 40 mg DAILY PO Last administered on 01/31/19 08:42; Admin Dose 40 MG; Start 01/27/19 at 09:00 Polyethylene Glycol (Miralax) 17 gm DAILY PO Last administered on 01/31/19 08:43; Admin Dose 17 GM; Start 01/27/19 at 09:00 Prednisolone Acetate (Pred-Forte 1%) 1 drop BID RIGHT EYE Last administered on 01/31/19 08:43; Admin Dose 1 DROP; Start 01/26/19 at 21:00 Zinc Sulfate (Zinc Sulfate) 220 mg DAILY PO Last administered on 01/31/19 08:40; Admin Dose 220 MG; Start 01/27/19 at 09:00 Vancomycin HCl (Vanco Iv Per Pharmacy) VANCOMYCIN PER PHARMACY PER PROTOCOL XX ; Start 01/26/19 at 20:30 Insulin Aspart (Novolog Insulin Pen) NOVOLOG *MODERATE* ALGORITHM WITH MEALS BEDTIME SC ; Start 01/26/19 at 21:00 Heparin Sodium (Porcine) (Heparin (5000 Units/1ml)) 5,000 unit BID SC Last administered on 01/31/19 08:49; Admin Dose 5,000 UNIT; Start 01/26/19 at 21:00 Morphine Sulfate (morphine) 2 mg Q4H PRN IV SEVERE PAIN LEVEL 7-10 Last administered on 01/31/19 10:44; Admin Dose 2 MG; Start 01/26/19 at 20:30 Miscellaneous Information 1 ea NOTE XX ; Start 01/26/19 at 23:45 Glucose (Glutose) 15 gm Q15M PRN PO DECREASED GLUCOSE; Start 01/26/19 at 23:45 Glucose (Glutose) 22.5 gm Q15M PRN PO DECREASED GLUCOSE; Start 01/26/19 at 23:45 Dextrose (D50w Syringe) 25 ml Q15M PRN IV DECREASED GLUCOSE Last administered on 01/28/19 07:50; Admin Dose 25 ML; Start 01/26/19 at 23:45 Dextrose (D50w Syringe) 50 ml Q15M PRN IV DECREASED GLUCOSE; Start 01/26/19 at 23:45 Glucagon (Glucagen) 1 mg Q15M PRN IM DECREASED GLUCOSE; Start 01/26/19 at 23:45 Glucose (Glutose) 15 gm Q15M PRN BUCCAL DECREASED GLUCOSE; Start 01/26/19 at 2 3:45 Alteplase, Recombinant (Cathflo (Activase)) 2 mg MAY REPEAT X1 PRN CATHETER IF CATHETER REMAINS OCCULUDED; Start 01/27/19 at 07:00 Tramadol HCl (Ultram) 50 mg Q6H PO Last administered on 01/31/19 08:41; Admin Dose 50 MG; Start 01/27/19 at 08:00 Collagenase (Santyl) 1 applic DAILY TOP Last administered on 01/31/19 08:40; Admin Dose 1 APPLIC; Start 01/28/19 at 09:00 Sodium Hypochlorite (Dakin'S (Dilute )) 1 applic DAILY IRR Last administered on 01/31/19 08:51; Admin Dose 1 APPLIC; Start 01/28/19 at 09:00 Lorazepam (Ativan) 1 mg Q8H PRN PO ANXIETY; Start 01/27/19 at 22:30 Mupirocin (Bactroban) 1 applic BID TOP Last administered on 01/31/19 08:44; Admin Dose 1 APPLIC; Start 01/28/19 at 21:00 Epoetin Indra (Epogen (Esrd)) 8,000 units TuThSa@17 SC Last administered on 01/30/19 17:31; Admin Dose 8,000 UNITS; Start 01/30/19 at 17:00 Megestrol Acetate (Megace Susp) 400 mg DAILY PO Last administered on 01/31/19 08:40; Admin Dose 400 MG; Start 01/30/19 at 14:30 Meropenem/Sodium Chloride 50 ml @ 100 mls/hr Q24H IVPB Last administered on 01/30/19 13:51; Admin Dose 100 MLS/HR; Start 01/29/19 at 13:00 Miscellaneous Information (*Rx Drug Level Order Reminder*) RANDOM VANCOMYCIN LEVEL 3... ONCE ONCE XX ; Start 02/01/19 at 05:00; Stop 02/01/19 at 05:01 RICH HOLLAND Jan 31, 2019 13:01
[2019-01-31] MEDS: MEROPENEM 500MG/50 ML (PMX) 50 ML IVPB SCH (13:18)
--- NOTE | 2019-01-31 14:06 | PN ---
Date/Time of Note Date/Time of Note DATE: 01/31/19 TIME: 14:04 Assessment/Plan Lines/Catheters IV Catheter Type (from [facility]): PICC Line [place] in Place (from [facility]): No Assessment/Plan Chief Complaint/Hosp Course 1. Sacral and bilateral ischial wounds: wnd cx noted; status post sacrum and right ischial debridement 01/29/19 -Further debridement as needed -Continue local care -frequent turning and off-loading -low air loss mattress -vitamin c -short term zinc -optimize nutrition 2. Abdominal pain and generalized weakness: Status post EGD: Gastritis -further w/u per med team -PPI 3. ESRD -limit nephrotoxins -HD per renal -renally dose meds 4. Anemia: -monitor and transfuse as needed 5. Diabetes -glucose monitoring 6. Hypothyroidism -med mgt 7. Leukocytosis: -Monitor Thank you. Patient seen and examined in collaboration with Dr. Simón Almanza. Subjective 24 Hr Interval Summary Continues to be confused. No fevers, chills, sob, congested cough, cp, palpitations, hoffman, dizziness, nausea, vomiting, diarrhea, dysuria, excessive wound drainage or odor from wounds. Exam/Review of Systems Vital Signs Vitals Vital Signs Date Temp Pulse Resp B/P (MAP) Pulse Ox O2 O2 Flow FiO2 Time Delivery Rate 01/31/19 66 13:14 01/31/19 98.6 18 147/65 94 11:01 (92) 01/31/19 Nasal 3.0 08:45 Cannula Intake and Output 01/30/19 01/30/19 01/31/19 1515:00 23:00 07:00 IntakeIntake Total 800 ml 300 ml BalanceBalance 800 ml 300 ml Exam Free Text/Dictation Constitutional: alert, oriented, obese Psych: anxiety Head: normocephalic, atraumatic Eyes: nl conjunctiva, EOMI, nl lids, nl sclera ENMT: nl external ears & nose, nl lips & teeth, mucosa pink and moist Neck: supple, non-tender; No jvd Respiratory: normal air movement; No congested cough, No labored breathing Cardiovascular: regular rate and rhythm, nl pulses; No edema Gastrointestinal: soft, non-tender, distended Genitourinary - Female: nl external genitalia Musculoskeletal: nl extremities to inspection, nl gait and stance Extremities: normal pulses Neurological: nl mental status, nl speech, nl strength Skin: other (sacral: Packed, improved odor; right ischium: Packed, improved odor; left ischium: unstageable); No rash or lesions Results Result Diagram: 01/30/19 0752 01/30/19 0752 ARSLAN COATES NP Jan 31, 2019 14:06
[2019-01-31] MEDS ORDERED: AMIKACIN IV PER PHARMACY XX SCH (15:30)
[2019-01-31] MEDS: ZYVOX 600 MG TAB PO SCH ×2 (16:27→21:08)
[2019-01-31] MEDS ORDERED: AMIKACIN 450 MG in SOD CHLORIDE 0.9% 100 ML IVPB SCH (18:00)
[2019-01-31] MEDS ORDERED: MAGNESIUM CITRATE 300 ML BTL PO ONE (18:00)
[2019-01-31] MEDS ORDERED: IOHEXOL 14.3 MG(I)/ML (ADULT) BTL PO ONE (18:00)
[2019-01-31] MEDS: ATORVASTATIN 20 MG TAB PO SCH (21:08)
[2019-01-31] MEDS: INSULIN DETEMIR [LEVEMIR] (100 UNITS/ML) SYG SC SCH (21:30)
[2019-02-01] VITALS (23 sets, daily range): BP systolic 113–171; BP diastolic 59–94; PULSE 62–94; RESP 18–20
[2019-02-01] MEDS: traMADol 50 MG TAB PO SCH ×4 (01:26→20:24)
[2019-02-01] MEDS: ALTEPLASE (CATHFLO) 2 MG INJ CATHETER PRN (03:17)
[2019-02-01] MEDS: morphine 2 MG INJ IV PRN (05:30)
[2019-02-01] MEDS: METOCLOPRAMIDE 5 MG TAB PO SCH ×3 (06:36→17:30)
[2019-02-01] MEDS: LEVOTHYROXINE 100 MCG TAB PO SCH (06:36)
--- NOTE | 2019-02-01 07:12 | PN ---
DATE: 01/31/2019 SUBJECTIVE: The patient was admitted with abdominal pain and vomiting. Upper endoscopy showed gastr itis. She has a severe anemia. She also showed evidence of possible congestive heart failure on the chest x-ray. Now, she has not had any bowel movement. PHYSICAL EXAMINATION: GENERAL: She is alert, she is not in distress. VITAL SIGNS: Pulse is 65, blood pressure is 153/70, temperature 98.2. CARDIOVASCULAR: Normal heart sounds. RESPIRATORY: Some occasional rales heard in the bases. ABDOMEN: Shows soft abdomen with no palpable masses, no tenderness, no distention. LABORATORY WORKUP: Sodium 138, potassium 3.4, BUN 17, creatinine 1.98. The hemoglobin is in the range of 8.5, 8.2, 8.1, MCV 101. CLINICAL IMPRESSION: From the gastrointestinal standpoint, nausea, vomiting and abdominal pain is mu ch better. She does have severe anemia. This needs to be further evaluated. Thyroid functions are normal; however she is on thyroxine. PLAN: I would recommend to repeat the chest x-ray and one her congestive heart failure improves, she will need a colonoscopy. I also recommend serum B12 and folic acid. Dictated By: GEORGES LEONARDO/VICTORINA Conf#: [id number] DID#: [id number] CC: ALEXUS VALENCIA MD;*EndCC*
[2019-02-01] MEDS: INSULIN ASPART [NOVOLOG] 3 ML PEN SC SCH ×4 (07:42→20:21)
[2019-02-01] MEDS: PREDNISOLONE ACET 1% 5 ML OPH RIGHT EYE SCH ×2 (08:24→20:37)
[2019-02-01] MEDS: SODIUM HYPOCHLORITE (1/40) 1 LITER BTL IRR SCH (08:24)
[2019-02-01] MEDS: MUPIROCIN 2% 22 GM OINT TOP SCH ×2 (08:25→21:36)
[2019-02-01] MEDS: BALSAM PERU/CASTOR OIL 60 GM TUBE TOP SCH ×2 (08:25→21:36)
[2019-02-01] MEDS: DOCUSATE SODIUM 100 MG CAP PO SCH ×2 (09:00→20:23)
[2019-02-01] MEDS: POLYETHYLENE GLYCOL 17 GM PACKET PO SCH (09:00)
[2019-02-01] MEDS: MULTIVIT/CA CARB/B CMPLX/FA TAB PO SCH (10:22)
[2019-02-01] MEDS: MEGESTROL (40 MG/ML) 10ML CUP PO SCH (10:22)
[2019-02-01] MEDS: ASCORBIC ACID 500 MG TAB PO SCH (10:23)
[2019-02-01] MEDS: ZYVOX 600 MG TAB PO SCH ×2 (10:23→20:22)
[2019-02-01] MEDS: FOLIC ACID 1 MG TAB PO SCH (10:24)
[2019-02-01] MEDS: ZINC SULFATE 220 MG CAP PO SCH (10:24)
[2019-02-01] MEDS: PANTOPRAZOLE (EC) 40 MG TAB PO SCH (10:24)
[2019-02-01] MEDS: CITALOPRAM 20 MG TAB PO SCH (10:25)
[2019-02-01] MEDS: COLLAGENASE 5 GM (UD JAR) TOP SCH (10:25)
[2019-02-01] MEDS: AMIODARONE 200 MG TAB PO SCH (10:27)
[2019-02-01] MEDS: METOPROLOL 25 MG TAB PO SCH ×2 (10:29→20:25)
[2019-02-01] MEDS: HEPARIN 5,000 UNIT/1 ML VIAL SC SCH ×2 (10:34→20:31)
--- NOTE | 2019-02-01 11:48 | CONS ---
Assessment/Plan Assessment/Plan Hospital Course (Demo Recall) IMPRESSION: 1. Preop evaluation. The patient to undergo EGD whose 2D echo I just read revealing EF lower limits of normal, approximately 50% with no significant contraindicated valvular lesions and negative troponin x1 since admit, patient is okay to proceed at a moderate cardiovascular risk. Now post-op s/p endoscopy and debridement of decub ulcer 2. Congestive heart failure, diastolic acute on chronic. 3. Hypertension. 4. Cardiac arrhythmia, on amiodarone, in sinus rhythm by EKG. 5. Hypothyroidism. 6. Diabetes mellitus. 7. Nausea and vomiting. 8. Generalized weakness. 9. Decubitus ulcers s/p debridement 10. Anemia. 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 Recc: -Tele -Contineu BB and increase hydralazine to improve BP -continue statin -Continue abx's and f/u cx data -local wound care Consultation Date/Type/Reason Admit Date/Time Jan 26, 2019 at 17:32 Initial Consult Date 01/27/19 Type of Consult Cardiology Reason for Consultation CHF Requesting Provider: ALEXUS VALENCIA MD Date/Time of Note DATE: 02/01/19 TIME: 11:47 Exam/Review of Systems Vital Signs Vitals Vital Signs Date Temp Pulse Resp B/P (MAP) Pulse Ox O2 O2 Flow FiO2 Time Delivery Rate 02/01/19 63 08:56 02/01/19 98.0 18 133/68 96 07:42 (89) 02/01/19 3.0 03:55 01/31/19 Nasal 21:05 Cannula Intake and Output 01/31/19 01/31/19 02/01/19 1515:00 23:00 07:00 IntakeIntake Total 670 ml 240 ml BalanceBalance 670 ml 240 ml Exam Exam Review of Systems: CONSTITUTIONAL: No fevers, chills. PULMONARY: No sob CARDIOVASCULAR: No chest pain/palpitations GASTROINTESTINAL: No nausea/vomiting. GENITOURINARY: No hematuria/dysuria. MUSCULOSKELETAL: No myagias/arthalgias. PSYCHIATRIC: The patient denies depression. NEUROLOGIC: No weakness Constitutional: alert Psych: no complaints Head: normocephalic ENMT: mucosa pink and moist Neck: supple, jvd (9 cm water) Respiratory: diminished breath sounds (at bases/B) Cardiovascular: regular rate and rhythm Gastrointestinal: soft, non-tender Musculoskeletal: muscle tone (normal) Extremities: edema (nonw) Neurological: other (No focal deficits) Labs Result Diagram: 01/30/19 0752 01/30/19 0752 Results 24hrs Laboratory Tests Test 01/31/19 12:00 01/31/19 17:21 01/31/19 17:54 01/31/19 19:25 Bedside Glucose 117 159 Vitamin B12 Level 896 Ferritin 982.0 H Carcinoembryonic 8.7 H Antigen Folate > 20.0 H Test 01/31/19 19:26 01/31/19 21:06 02/01/19 07:40 02/01/19 08:03 Iron Level 30 L Total Iron Binding 132 L Capacity Percent Iron 23 Saturation Bedside Glucose 126 65 L 79 Test 02/01/19 08:30 Bedside Glucose 99 Medications Medications Current Medications Amiodarone HCl (Cordarone) 200 mg DAILY PO Last administered on 02/01/19 10:27; Admin Dose 200 MG; Start 01/27/19 at 09:00 Ascorbic Acid (Vitamin C) 500 mg DAILY PO Last administered on 02/01/19 10:23; Admin Dose 500 MG; Start 01/27/19 at 09:00 Atorvastatin Calcium (Lipitor) 20 mg QHS PO Last administered on 01/31/19 21:08; Admin Dose 20 MG; Start 01/26/19 at 21:00 Bisacodyl (Dulcolax) 10 mg Q24H PRN PO CONSTIPATION; Start 01/26/19 at 20:00 Citalopram Hydrobromide (Celexa) 20 mg DAILY PO Last administered on 02/01/19 10:25; Admin Dose 20 MG; Start 01/27/19 at 09:00 Docusate Sodium (Colace) 100 mg BID PO Last administered on 01/31/19 21:07; Admin Dose 100 MG; Start 01/26/19 at 21:00 Folic Acid (Folic Acid) 1 mg DAILY PO Last administered on 02/01/19 10:24; Admin Dose 1 MG; Start 01/27/19 at 09:00 Insulin Detemir (Levemir) 6 units QHS SC Last administered on 01/31/19 21:30; Admin Dose 6 UNITS; Start 01/26/19 at 21:00 Levothyroxine Sodium (Synthroid) 100 mcg BEFORE BREAKFAST PO Last administered on 02/01/19 06:36; Admin Dose 100 MCG; Start 01/27/19 at 07:00 Metoclopramide HCl (Reglan) 5 mg BEFORE MEALS PO Last administered on 02/01/19 06:36; Admin Dose 5 MG; Start 01/27/19 at 07:30 Metoprolol Tartrate (Lopressor) 25 mg BID PO Last administered on 02/01/19 10:29; Admin Dose 25 MG; Start 01/26/19 at 21:00 Multivit/Ca Carb/ B Cmplx/FA/Prenat (Wendi-Cathi) 1 tab DAILY PO Last administered on 02/01/19 10:22; Admin Dose 1 TAB; Start 01/27/19 at 09:00 Ondansetron HCl (Zofran Tab) 4 mg Q6H PRN PO NAUSEA AND/OR VOMITING Last administered on 01/30/19 10:43; Admin Dose 4 MG; Start 01/26/19 at 20:00 Pantoprazole (Protonix Tab) 40 mg DAILY PO Last administered on 02/01/19 10:24; Admin Dose 40 MG; Start 01/27/19 at 09:00 Polyethylene Glycol (Miralax) 17 gm DAILY PO Last administered on 01/31/19 08:43; Admin Dose 17 GM; Start 01/27/19 at 09:00 Prednisolone Acetate (Pred-Forte 1%) 1 drop BID RIGHT EYE Last administered on 02/01/19 08:24; Admin Dose 1 DROP; Start 01/26/19 at 21:00 Zinc Sulfate (Zinc Sulfate) 220 mg DAILY PO Last administered on 02/01/19 10:24; Admin Dose 220 MG; Start 01/27/19 at 09:00 Insulin Aspart (Novolog Insulin Pen) NOVOLOG *MODERATE* ALGORITHM WITH MEALS BEDTIME SC Last administered on 01/31/19 17:32; Admin Dose 2 UNIT; Start 01/26/19 at 21:00 Heparin Sodium (Porcine) (Heparin (5000 Units/1ml)) 5,000 unit BID SC Last administered on 02/01/19 10:34; Admin Dose 5,000 UNIT; Start 01/26/19 at 21:00 Morphine Sulfate (morphine) 2 mg Q4H PRN IV SEVERE PAIN LEVEL 7-10 Last administered on 02/01/19 05:30; Admin Dose 2 MG; Start 01/26/19 at 20:30 Miscellaneous Information 1 ea NOTE XX ; Start 01/26/19 at 23:45 Glucose (Glutose) 15 gm Q15M PRN PO DECREASED GLUCOSE; Start 01/26/19 at 23:45 Glucose (Glutose) 22.5 gm Q15M PRN PO DECREASED GLUCOSE; Start 01/26/19 at 23:45 Dextrose (D50w Syringe) 25 ml Q15M PRN IV DECREASED GLUCOSE Last administered on 01/28/19at 07:50; Admin Dose 25 ML; Start 01/26/19 at 23:45 Dextrose (D50w Syringe) 50 ml Q15M PRN IV DECREASED GLUCOSE; Start 01/26/19 at 23:45 Glucagon (Glucagen) 1 mg Q15M PRN IM DECREASED GLUCOSE; Start 01/26/19 at 23:45 Glucose (Glutose) 15 gm Q15M PRN BUCCAL DECREASED GLUCOSE; Start 01/26/19 at 23:45 Alteplase, Recombinant (Cathflo (Activase)) 2 mg MAY REPEAT X1 PRN CATHETER IF CATHETER REMAINS OCCULUDED Last administered on 02/01/19 03:17; Admin Dose 2 MG; Start 01/27/19 at 07:00 Tramadol HCl (Ultram) 50 mg Q6H PO Last administered on 02/01/19 10:28; Admin Dose 50 MG; Start 01/27/19 at 08:00 Collagenase (Santyl) 1 applic DAILY TOP Last administered on 02/01/19 10:25; Admin Dose 1 APPLIC; Start 01/28/19 at 09:00 Sodium Hypochlorite (Dakin'S (Dilute )) 1 applic DAILY IRR Last administered on 02/01/19 08:24; Admin Dose 1 APPLIC; Start 01/28/19 at 09:00 Lorazepam (Ativan) 1 mg Q8H PRN PO ANXIETY; Start 01/27/19 at 22:30 Mupirocin (Bactroban) 1 applic BID TOP Last administered on 02/01/19 08:25; Admin Dose 1 APPLIC; Start 01/28/19 at 21:00 Epoetin Indra (Epogen (Esrd)) 8,000 units TuThSa@17 SC Last administered on at 17:31; Admin Dose 8,000 UNITS; Start 01/30/19 at 17:00 Megestrol Acetate (Megace Susp) 400 mg DAILY PO Last administered on 02/01/19at 10:22; Admin Dose 400 MG; Start 01/30/19 at 14:30 Hydralazine HCl (Apresoline) 25 mg Q8 PO Last administered on 02/01/19at 05:30; Admin Dose 25 MG; Start 01/31/19 at 14:00 Linezolid (Zyvox) 600 mg BID PO Last administered on 02/01/19at 10:23; Admin Dose 600 MG; Start 01/31/19 at 16:00 Amikacin Sulfate (Amikacin Iv Per Pharmacy) AMIKACIN PER PHARMACY NOTE XX ; Start 01/31/19 at 15:30 Amikacin Sulfate 300 mg/Sodium Chloride 101.2 ml @ 102 mls/hr AFTER DIALYSIS IVPB ; Start 02/01/19 at 16:30 ALIREZA LEE Feb 01, 2019 11:48
--- NOTE | 2019-02-01 12:54 | CONS ---
Assessment/Plan Assessment/Plan Assessment/Plan (Daily) - ESRD on Hemodialysis - Anemia of Chronic Disease - DM / DM Nephropathy - CAD / CHF - Hypoalbuminia - Hypothyroid - Failure to thrive - Leukocytosis - Non healing wound PLAN: Bedside dialysis Aim for UD ~ 1-2 liter as tolerates IV Antibiotics Local wound care Follow up on H/H ( on long acting EPO as out patient ) High protein diet / Supplements Had HD yesterday Plan for HD next 01/29/2019 Monitor H/H High Protein diet More awake & alert Poor appetite with low albumin High protein diet Add Nepro supplement Add Megace Increase EPO Check IRON Bedside dialysis 01/29/2019 using 3K+ bath today Post debridement of the sacral wound Had HD 01/29/2019 Next HD Friday Increase protein Diet Consultation Date/Type/Reason Admit Date/Time Jan 26, 2019 at 17:32 Initial Consult Date 01/27/19 Type of Consult - Nephrology ( Dialysis Dependent ) Requesting Provider: ALEXUS VALENCIA MD Date/Time of Note DATE: 02/01/19 TIME: 12:54 24 HR Interval Summary Constitutional: no complaints, improved Exam/Review of Systems Exam Vitals Vital Signs Date Temp Pulse Resp B/P (MAP) Pulse Ox O2 O2 Flow FiO2 Time Delivery Rate 02/01/19 65 12:46 02/01/19 98.0 18 131/70 99 11:48 (90) 02/01/19 Nasal 2.0 08:00 Cannula Intake and Output 01/31/19 01/31/19 02/01/19 1515:00 23:00 07:00 IntakeIntake Total 670 ml 240 ml BalanceBalance 670 ml 240 ml Constitutional: alert Psych: no complaints Head: normocephalic Respiratory: clear to auscultation, crackles/rales Cardiovascular: edema, systolic murmur Gastrointestinal: soft Results Result Diagram: 01/30/19 0752 01/30/19 0752 Results 24hrs Laboratory Tests Test 01/31/19 17:21 01/31/19 17:54 01/31/19 19:25 01/31/19 19:26 Bedside Glucose 159 Vitamin B12 Level 896 Ferritin 982.0 H Carcinoembryonic 8.7 H Antigen Folate > 20.0 H Iron Level 30 L Total Iron Binding 132 L Capacity Percent Iron 23 Saturation Test 01/31/19 21:06 02/01/19 07:40 02/01/19 08:03 02/01/19 08:30 Bedside Glucose 126 65 L 79 99 Test 02/01/19 11:48 Bedside Glucose 126 Medications Medication Current Medications Amiodarone HCl (Cordarone) 200 mg DAILY PO Last administered on 02/01/19 10:2 7; Admin Dose 200 MG; Start 01/27/19 at 09:00 Ascorbic Acid (Vitamin C) 500 mg DAILY PO Last administered on 02/01/19 10:23; Admin Dose 500 MG; Start 01/27/19 at 09:00 Atorvastatin Calcium (Lipitor) 20 mg QHS PO Last administered on 01/31/19at 21:08; Admin Dose 20 MG; Start 01/26/19 at 21:00 Bisacodyl (Dulcolax) 10 mg Q24H PRN PO CONSTIPATION; Start 01/26/19 at 20:00 Citalopram Hydrobromide (Celexa) 20 mg DAILY PO Last administered on 02/01/19 10:25; Admin Dose 20 MG; Start 01/27/19 at 09:00 Docusate Sodium (Colace) 100 mg BID PO Last administered on 01/31/19 21:07; Admin Dose 100 MG; Start 01/26/19 at 21:00 Folic Acid (Folic Acid) 1 mg DAILY PO Last administered on 02/01/19 10:24; Admin Dose 1 MG; Start 01/27/19 at 09:00 Insulin Detemir (Levemir) 6 units QHS SC Last administered on 01/31/19 21:30; Admin Dose 6 UNITS; Start 01/26/19 at 21:00 Levothyroxine Sodium (Synthroid) 100 mcg BEFORE BREAKFAST PO Last administered on 02/01/19 06:36; Admin Dose 100 MCG; Start 01/27/19 at 07:00 Metoclopramide HCl (Reglan) 5 mg BEFORE MEALS PO Last administered on 02/01/19 12:09; Admin Dose 5 MG; Start 01/27/19 at 07:30 Metoprolol Tartrate (Lopressor) 25 mg BID PO Last administered on 02/01/19 10:29; Admin Dose 25 MG; Start 01/26/19 at 21:00 Multivit/Ca Carb/ B Cmplx/FA/Prenat (Wendi-Cathi) 1 tab DAILY PO Last administered on 02/01/19 10:22; Admin Dose 1 TAB; Start 01/27/19 at 09:00 Ondansetron HCl (Zofran Tab) 4 mg Q6H PRN PO NAUSEA AND/OR VOMITING Last administered on 01/30/19 10:43; Admin Dose 4 MG; Start 01/26/19 at 20:00 Pantoprazole (Protonix Tab) 40 mg DAILY PO Last administered on 02/01/19 10:24; Admin Dose 40 MG; Start 01/27/19 at 09:00 Polyethylene Glycol (Miralax) 17 gm DAILY PO Last administered on 01/31/19 08:43; Admin Dose 17 GM; Start 01/27/19 at 09:00 Prednisolone Acetate (Pred-Forte 1%) 1 drop BID RIGHT EYE Last administered on 02/01/19 08:24; Admin Dose 1 DROP; Start 01/26/19 at 21:00 Zinc Sulfate (Zinc Sulfate) 220 mg DAILY PO Last administered on 02/01/19 10:24; Admin Dose 220 MG; Start 01/27/19 at 09:00 Insulin Aspart (Novolog Insulin Pen) NOVOLOG *MODERATE* ALGORITHM WITH MEALS BEDTIME SC Last administered on 01/31/19 17:32; Admin Dose 2 UNIT; Start 01/26/19 at 21:00 Heparin Sodium (Porcine) (Heparin (5000 Units/1ml)) 5,000 unit BID SC Last administered on 02/01/19 10:34; Admin Dose 5,000 UNIT; Start 01/26/19 at 21:00 Morphine Sulfate (morphine) 2 mg Q4H PRN IV SEVERE PAIN LEVEL 7-10 Last administered on 02/01/19 05:30; Admin Dose 2 MG; Start 01/26/19 at 20:30 Miscellaneous Information 1 ea NOTE XX ; Start 01/26/19 at 23:45 Glucose (Glutose) 15 gm Q15M PRN PO DECREASED GLUCOSE; Start 01/26/19 at 23:45 Glucose (Glutose) 22.5 gm Q15M PRN PO DECREASED GLUCOSE; Start 01/26/19 at 23:45 Dextrose (D50w Syringe) 25 ml Q15M PRN IV DECREASED GLUCOSE Last administered on 01/28/19at 07:50; Admin Dose 25 ML; Start 01/26/19 at 23:45 Dextrose (D50w Syringe) 50 ml Q15M PRN IV DECREASED GLUCOSE; Start 01/26/19 at 23:45 Glucagon (Glucagen) 1 mg Q15M PRN IM DECREASED GLUCOSE; Start 01/26/19 at 23:45 Glucose (Glutose) 15 gm Q15M PRN BUCCAL DECREASED GLUCOSE; Start 01/26/19 at 23:45 Alteplase, Recombinant (Cathflo (Activase)) 2 mg MAY REPEAT X1 PRN CATHETER IF CATHETER REMAINS OCCULUDED Last administered on 02/01/19 03:17; Admin Dose 2 MG; Start 01/27/19 at 07:00 Tramadol HCl (Ultram) 50 mg Q6H PO Last administered on 02/01/19 10:28; Admin Dose 50 MG; Start 01/27/19 at 08:00 Collagenase (Santyl) 1 applic DAILY TOP Last administered on 02/01/19 10:25; Admin Dose 1 APPLIC; Start 01/28/19 at 09:00 Sodium Hypochlorite (Dakin'S (Dilute )) 1 applic DAILY IRR Last administered on 02/01/19 08:24; Admin Dose 1 APPLIC; Start 01/28/19 at 09:00 Lorazepam (Ativan) 1 mg Q8H PRN PO ANXIETY; Start 01/27/19 at 22:30 Mupirocin (Bactroban) 1 applic BID TOP Last administered on 02/01/19at 08:25; Admin Dose 1 APPLIC; Start 01/28/19 at 21:00 Epoetin Indra (Epogen (Esrd)) 8,000 units TuThSa@17 SC Last administered on 01/30/19at 17:31; Admin Dose 8,000 UNITS; Start 01/30/19 at 17:00 Megestrol Acetate (Megace Susp) 400 mg DAILY PO Last administered on 02/01/19at 10:22; Admin Dose 400 MG; Start 01/30/19 at 14:30 Linezolid (Zyvox) 600 mg BID PO Last administered on 02/01/19at 10:23; Admin Dose 600 MG; Start 01/31/19 at 16:00 Amikacin Sulfate (Amikacin Iv Per Pharmacy) AMIKACIN PER PHARMACY NOTE XX ; Start 01/31/19 at 15:30 Amikacin Sulfate 300 mg/Sodium Chloride 101.2 ml @ 102 mls/hr AFTER DIALYSIS IVPB ; Start 02/01/19 at 16:30 Hydralazine HCl (Apresoline) 50 mg Q8 PO ; Start 02/01/19 at 14:00 ANIBAL ALMANZAR MD Feb 01, 2019 12:54
--- NOTE | 2019-02-01 15:10 | CONS ---
Assessment/Plan Assessment/Plan Hospital Course (Demo Recall) No acute events patient is sleeping looks comfortable no fevers overnight. Antimicrobials: Amikacin, Zyvox Microbiology: Wound cultures grew E. coli ESBL, MRSA, VRE and Proteus mirabilis, blood cultures remain negative PHYSICAL EXAMINATION: GENERAL: This is a fragile, wasted, well-developed, elderly woman, who is lethargic, arousable. The patient is in no distress. HEENT: Head atraumatic, normocephalic. Sclerae anicteric. The patient has right eye blindness. Buccal mucosa pale, dry. NECK: Supple. CHEST: Rise symmetrical. Breath sounds diminished to bases. HEART: S1, S2. ABDOMEN: Obese, soft, bowel tones present. EXTREMITIES: Bilateral edema. SKIN: The patient has a large necrotic wounds on bilateral buttocks, left buttock and left posterior thigh area , also, necrotic wound. The patient has pressure sores on her left heel as well. Assessment: 1. Multiple necrotic infected wounds, s/p debridement 2. End-stage renal disease, hemodialysis dependent 3. Diabetes 4. Hypertension 5. MRSA colonization Plan: Patient is stable, continue antibiotics and topical Bactroban, wound care per surgical recommendations Consultation Date/Type/Reason Admit Date/Time Jan 26, 2019 at 17:32 Initial Consult Date 01/27/19 Type of Consult id Requesting Provider: ALEXUS VALENCIA MD Date/Time of Note DATE: 02/01/19 TIME: 15:09 Exam/Review of Systems Exam Vitals Vital Signs Date Temp Pulse Resp B/P (MAP) Pulse Ox O2 O2 Flow FiO2 Time Delivery Rate 02/01/19 65 12:46 02/01/19 98.0 18 131/70 99 11:48 (90) 02/01/19 Nasal 2.0 08:00 Cannula Intake and Output 01/31/19 01/31/19 02/01/19 1515:00 23:00 07:00 IntakeIntake Total 670 ml 240 ml BalanceBalance 670 ml 240 ml Results Result Diagram: 01/30/19 0752 01/30/19 0752 Results 24hrs Laboratory Tests Test 01/31/19 17:21 01/31/19 17:54 01/31/19 19:25 01/31/19 19:26 Bedside Glucose 159 Vitamin B12 Level 896 Ferritin 982.0 H Carcinoembryonic 8.7 H Antigen Folate > 20.0 H Iron Level 30 L Total Iron Binding 132 L Capacity Percent Iron 23 Saturation Test 01/31/19 21:06 02/01/19 07:40 02/01/19 08:03 02/01/19 08:30 Bedside Glucose 126 65 L 79 99 Test 02/01/19 11:48 Bedside Glucose 126 Medications Medication Current Medications Amiodarone HCl (Cordarone) 200 mg DAILY PO Last administered on 02/01/19 10:27; Admin Dose 200 MG; Start 01/27/19 at 09:00 Ascorbic Acid (Vitamin C) 500 mg DAILY PO Last administered on 02/01/19 10:23; Admin Dose 500 MG; Start 01/27/19 at 09:00 Atorvastatin Calcium (Lipitor) 20 mg QHS PO Last administered on 01/31/19 21:08; Admin Dose 20 MG; Start 01/26/19 at 21:00 Bisacodyl (Dulcolax) 10 mg Q24H PRN PO CONSTIPATION; Start 01/26/19 at 20:00 Citalopram Hydrobromide (Celexa) 20 mg DAILY PO Last administered on 02/01/19 10:25; Admin Dose 20 MG; Start 01/27/19 at 09:00 Docusate Sodium (Colace) 100 mg BID PO Last administered on 01/31/19 21:07; Admin Dose 100 MG; Start 01/26/19 at 21:00 Folic Acid (Folic Acid) 1 mg DAILY PO Last administered on 02/01/19 10:24; Admin Dose 1 MG; Start 01/27/19 at 09:00 Insulin Detemir (Levemir) 6 units QHS SC Last administered on 01/31/19 21:30; Admin Dose 6 UNITS; Start 01/26/19 at 21:00 Levothyroxine Sodium (Synthroid) 100 mcg BEFORE BREAKFAST PO Last administered on 02/01/19 06:36; Admin Dose 100 MCG; Start 01/27/19 at 07:00 Metoclopramide HCl (Reglan) 5 mg BEFORE MEALS PO Last administered on 9at 12:09; Admin Dose 5 MG; Start 01/27/19 at 07:30 Metoprolol Tartrate (Lopressor) 25 mg BID PO Last administered on 02/01/19 10:29; Admin Dose 25 MG; Start 01/26/19 at 21:00 Multivit/Ca Carb/ B Cmplx/FA/Prenat (Wendi-Cathi) 1 tab DAILY PO Last administered on 02/01/19 10:22; Admin Dose 1 TAB; Start 01/27/19 at 09:00 Ondansetron HCl (Zofran Tab) 4 mg Q6H PRN PO NAUSEA AND/OR VOMITING Last admi nistered on 01/30/19 10:43; Admin Dose 4 MG; Start 01/26/19 at 20:00 Pantoprazole (Protonix Tab) 40 mg DAILY PO Last administered on 02/01/19 10:24; Admin Dose 40 MG; Start 01/27/19 at 09:00 Polyethylene Glycol (Miralax) 17 gm DAILY PO Last administered on 01/31/19 08:43; Admin Dose 17 GM; Start 01/27/19 at 09:00 Prednisolone Acetate (Pred-Forte 1%) 1 drop BID RIGHT EYE Last administered on 02/01/19 08:24; Admin Dose 1 DROP; Start 01/26/19 at 21:00 Zinc Sulfate (Zinc Sulfate) 220 mg DAILY PO Last administered on 02/01/19 10:24; Admin Dose 220 MG; Start 01/27/19 at 09:00 Insulin Aspart (Novolog Insulin Pen) NOVOLOG *MODERATE* ALGORITHM WITH MEALS BEDTIME SC Last administered on 01/31/19 17:32; Admin Dose 2 UNIT; Start 01/26/19 at 21:00 Heparin Sodium (Porcine) (Heparin (5000 Units/1ml)) 5,000 unit BID SC Last administered on 02/01/19 10:34; Admin Dose 5,000 UNIT; Start 01/26/19 at 21:00 Morphine Sulfate (morphine) 2 mg Q4H PRN IV SEVERE PAIN LEVEL 7-10 Last administered on 02/01/19 05:30; Admin Dose 2 MG; Start 01/26/19 at 20:30 Miscellaneous Information 1 ea NOTE XX ; Start 01/26/19 at 23:45 Glucose (Glutose) 15 gm Q15M PRN PO DECREASED GLUCOSE; Start 01/26/19 at 23:45 Glucose (Glutose) 22.5 gm Q15M PRN PO DECREASED GLUCOSE; Start 01/26/19 at 23:45 Dextrose (D50w Syringe) 25 ml Q15M PRN IV DECREASED GLUCOSE Last administered on 01/28/19 07:50; Admin Dose 25 ML; Start 01/26/19 at 23:45 Dextrose (D50w Syringe) 50 ml Q15M PRN IV DECREASED GLUCOSE; Start 01/26/19 at 23:45 Glucagon (Glucagen) 1 mg Q15M PRN IM DECREASED GLUCOSE; Start 01/26/19 at 23:45 Glucose (Glutose) 15 gm Q15M PRN BUCCAL DECREASED GLUCOSE; Start 01/26/19 at 23:45 Alteplase, Recombinant (Cathflo (Activase)) 2 mg MAY REPEAT X1 PRN CATHETER IF CATHETER REMAINS OCCULUDED Last administered on 02/01/19 03:17; Admin Dose 2 MG; Start 01/27/19 at 07:00 Tramadol HCl (Ultram) 50 mg Q6H PO Last administered on 02/01/19 14:12; Admin Dose 50 MG; Start 01/27/19 at 08:00 Collagenase (Santyl) 1 applic DAILY TOP Last administered on 02/01/19 10:25; Admin Dose 1 APPLIC; Start 01/28/19 at 09:00 Sodium Hypochlorite (Dakin'S (Dilute )) 1 applic DAILY IRR Last administered on 02/01/19 08:24; Admin Dose 1 APPLIC; Start 01/28/19 at 09:00 Lorazepam (Ativan) 1 mg Q8H PRN PO ANXIETY; Start 01/27/19 at 22:30 Mupirocin (Bactroban) 1 applic BID TOP Last administered on 02/01/19 08:25; A dmin Dose 1 APPLIC; Start 01/28/19 at 21:00 Epoetin Indra (Epogen (Esrd)) 8,000 units TuThSa@17 SC Last administered on 01/30/19 17:31; Admin Dose 8,000 UNITS; Start 01/30/19 at 17:00 Megestrol Acetate (Megace Susp) 400 mg DAILY PO Last administered on 02/01/19 10:22; Admin Dose 400 MG; Start 01/30/19 at 14:30 Linezolid (Zyvox) 600 mg BID PO Last administered on 3/25/19at 10:23; Admin Dose 600 MG; Start 01/31/19 at 16:00 Amikacin Sulfate (Amikacin Iv Per Pharmacy) AMIKACIN PER PHARMACY NOTE XX ; Start 01/31/19 at 15:30 Amikacin Sulfate 300 mg/Sodium Chloride 101.2 ml @ 102 mls/hr AFTER DIALYSIS IVPB ; Start 02/01/19 at 16:30 Hydralazine HCl (Apresoline) 50 mg Q8 PO Last administered on 02/01/19at 14:13; Admin Dose 50 MG; Start 02/01/19 at 14:00 ALYX NAVARRO NP Feb 01, 2019 15:10
--- NOTE | 2019-02-01 16:34 | PN ---
Date/Time of Note Date/Time of Note DATE: 02/01/19 TIME: 16:26 Assessment/Plan VTE Prophylaxis Risk score (from Ns)>0 risk: 5 SCD applied (from [facility] [place]): Yes Pharmacological prophylaxis: NA/contraindicated Pharm contraindication: other Lines/Catheters IV [facility]atheter Type (from [facility]): PICC Line Central line still needed: Yes Urinary Cath still in place: No Assessment/Plan Hospital Course Patient complains of generalized weakness, undergoing hemodialysis, continues on supplemental oxygen. Assessment/Plan -Sacral and bilateral ischial infected wounds. Status post sacrum and right ischial debridement 01/29/19. Dr. Almanza is following in general surgery consultation. Continue antibiotics per ID. Dr. Guevara is following in infection disease consultation. -Abdominal pain. Status post EGD with notion of gastritis. Continue PPI. -Moderate bilateral pleural effusion -Hemodialysis dependent end-stage renal disease. Continue on hemodialysis. Dr. Mcdaniel is following from nephrology standpoint. -Diabetes mellitus type 2. Continue Levemir and NovoLog per mild algorithm sliding scale. -Hypothyroidism, continue levothyroxine -Hypertension. -Hyperlipidemia, continue statin -Anemia -MRSA of nares colonization. Contact isolation. -Right eye blindness. Further recommendations based on clinical course. Plan of care discussed with Dr. Mandel. Result Diagram: 01/30/19 0752 01/30/19 0752 Results 24hrs Laboratory Tests Test 01/31/19 17:21 01/31/19 17:54 01/31/19 19:25 01/31/19 19:26 Bedside Glucose 159 Vitamin B12 Level 896 Ferritin 982.0 H Carcinoembryonic 8.7 H Antigen Folate > 20.0 H Iron Level 30 L Total Iron Binding 132 L Capacity Percent Iron 23 Saturation Test 01/31/19 21:06 02/01/19 07:40 02/01/19 08:03 02/01/19 08:30 Bedside Glucose 126 65 L 79 99 Test 02/01/19 11:48 Bedside Glucose 126 Exam/Review of Systems Exam Vitals Vital Signs Date Temp Pulse Resp B/P (MAP) Pulse Ox O2 O2 Flow FiO2 Time Delivery Rate 02/01/19 98.0 66 20 171/76 98 15:31 (107) 02/01/19 Nasal 2.0 08:00 Cannula Intake and Output 3/01/31/19 02/01/19 1515:00 23:00 07:00 IntakeIntake Total 670 ml 240 ml BalanceBalance 670 ml 240 ml Constitutional: alert, oriented Eyes: other (Right eye blindness) Respiratory: clear to auscultation Cardiovascular: regular rate and rhythm Gastrointestinal: soft, non-tender Musculoskeletal: nl extremities to inspection Extremities: normal pulses, edema, other (Right upper extremity AV fistula) Neurological: nl mental status Results Results 24hrs Laboratory Tests Test 01/31/19 17:21 01/31/19 17:54 01/31/19 19:25 01/31/19 19:26 Bedside Glucose 159 Vitamin B12 Level 896 Ferritin 982.0 H Carcinoembryonic 8.7 H Antigen Folate > 20.0 H Iron Level 30 L Total Iron Binding 132 L Capacity Percent Iron 23 Saturation Test 01/31/19 21:06 02/01/19 07:40 02/01/19 08:03 02/01/19 08:30 Bedside Glucose 126 65 L 79 99 Test 02/01/19 11:48 Bedside Glucose 126 Medications Medication Current Medications Amiodarone HCl (Cordarone) 200 mg DAILY PO Last administered on 02/01/19 10:27; Admin Dose 200 MG; Start 01/27/19 at 09:00 Ascorbic Acid (Vitamin C) 500 mg DAILY PO Last administered on 02/01/19 10:23; Admin Dose 500 MG; Start 01/27/19 at 09:00 Atorvastatin Calcium (Lipitor) 20 mg QHS PO Last administered on 01/31/19 21:08; Admin Dose 20 MG; Start 01/26/19 at 21:00 Bisacodyl (Dulcolax) 10 mg Q24H PRN PO CONSTIPATION; Start 01/26/19 at 20:00 Citalopram Hydrobromide (Celexa) 20 mg DAILY PO Last administered on 02/01/19 10:25; Admin Dose 20 MG; Start 01/27/19 at 09:00 Docusate Sodium (Colace) 100 mg BID PO Last administered on 01/31/19 21:07; Admin Dose 100 MG; Start 01/26/19 at 21:00 Folic Acid (Folic Acid) 1 mg DAILY PO Last administered on 02/01/19 10:24; Admin Dose 1 MG; Start 01/27/19 at 09:00 Insulin Detemir (Levemir) 6 units QHS SC Last administered on 01/31/19 21:30; Admin Dose 6 UNITS; Start 01/26/19 at 21:00 Levothyroxine Sodium (Synthroid) 100 mcg BEFORE BREAKFAST PO Last administered on 02/01/19 06:36; Admin Dose 100 MCG; Start 01/27/19 at 07:00 Metoclopramide HCl (Reglan) 5 mg BEFORE MEALS PO Last administered on 02/01/19 12:09; Admin Dose 5 MG; Start 01/27/19 at 07:30 Metoprolol Tartrate (Lopressor) 25 mg BID PO Last administered on 02/01/19 10:29; Admin Dose 25 MG; Start 01/26/19 at 21:00 Multivit/Ca Carb/ B Cmplx/FA/Prenat (Wendi-Cathi) 1 tab DAILY PO Last administered on 02/01/19 10:22; Admin Dose 1 TAB; Start 01/27/19 at 09:00 Ondansetron HCl (Zofran Tab) 4 mg Q6H PRN PO NAUSEA AND/OR VOMITING Last administered on 01/30/19 10:43; Admin Dose 4 MG; Start 01/26/19 at 20:00 Pantoprazole (Protonix Tab) 40 mg DAILY PO Last administered on 02/01/19 10:24; Admin Dose 40 MG; Start 01/27/19 at 09:00 Polyethylene Glycol (Miralax) 17 gm DAILY PO Last administered on 01/31/19 08:43; Admin Dose 17 GM; Start 01/27/19 at 09:00 Prednisolone Acetate (Pred-Forte 1%) 1 drop BID RIGHT EYE Last administered on 02/01/19 08:24; Admin Dose 1 DROP; Start 01/26/19 at 21:00 Zinc Sulfate (Zinc Sulfate) 220 mg DAILY PO Last administered on 02/01/19 10:24; Admin Dose 220 MG; Start 01/27/19 at 09:00 Insulin Aspart (Novolog Insulin Pen) NOVOLOG *MODERATE* ALGORITHM WITH MEALS BEDTIME SC Last administered on 01/31/19 17:32; Admin Dose 2 UNIT; Start 01/26/19 at 21:00 Heparin Sodium (Porcine) (Heparin (5000 Units/1ml)) 5,000 unit BID SC Last administered on 02/01/19 10:34; Admin Dose 5,000 UNIT; Start 01/26/19 at 21:00 Morphine Sulfate (morphine) 2 mg Q4H PRN IV SEVERE PAIN LEVEL 7-10 Last administered on 02/01/19 05:30; Admin Dose 2 MG; Start 01/26/19 at 20:30 Miscellaneous Information 1 ea NOTE XX ; Start 01/26/19 at 23:45 Glucose (Glutose) 15 gm Q15M PRN PO DECREASED GLUCOSE; Start 01/26/19 at 23:45 Glucose (Glutose) 22.5 gm Q15M PRN PO DECREASED GLUCOSE; Start 01/26/19 at 23:45 Dextrose (D50w Syringe) 25 ml Q15M PRN IV DECREASED GLUCOSE Last administered on 01/28/19at 07:50; Admin Dose 25 ML; Start 01/26/19 at 23:45 Dextrose (D50w Syringe) 50 ml Q15M PRN IV DECREASED GLUCOSE; Start 01/26/19 at 23:45 Glucagon (Glucagen) 1 mg Q15M PRN IM DECREASED GLUCOSE; Start 01/26/19 at 23:45 Glucose (Glutose) 15 gm Q15M PRN BUCCAL DECREASED GLUCOSE; Start 01/26/19 at 23:45 Alteplase, Recombinant (Cathflo (Activase)) 2 mg MAY REPEAT X1 PRN CATHETER IF CATHETER REMAINS OCCULUDED Last administered on 02/01/19 03:17; Admin Dose 2 MG; Start 01/27/19 at 07:00 Tramadol HCl (Ultram) 50 mg Q6H PO Last administered on 02/01/19 14:12; Admin Dose 50 MG; Start 01/27/19 at 08:00 Collagenase (Santyl) 1 applic DAILY TOP Last administered on 02/01/19 10:25; Admin Dose 1 APPLIC; Start 01/28/19 at 09:00 Sodium Hypochlorite (Dakin'S (Dilute )) 1 applic DAILY IRR Last administered on 02/01/19 08:24; Admin Dose 1 APPLIC; Start 01/28/19 at 09:00 Lorazepam (Ativan) 1 mg Q8H PRN PO ANXIETY; Start 01/27/19 at 22:30 Mupirocin (Bactroban) 1 applic BID TOP Last administered on 02/01/19 08:25; Admin Dose 1 APPLIC; Start 01/28/19 at 21:00 Epoetin Indra (Epogen (Esrd)) 8,000 units TuThSa@17 SC Last administered on 01/30/19 17:31; Admin Dose 8,000 UNITS; Start 01/30/19 at 17:00 Megestrol Acetate (Megace Susp) 400 mg DAILY PO Last administered on 02/01/19 10:22; Admin Dose 400 MG; Start 01/30/19 at 14:30 Linezolid (Zyvox) 600 mg BID PO Last administered on 02/01/19 10:23; Admin Dose 600 MG; Start 01/31/19 at 16:00 Amikacin Sulfate (Amikacin Iv Per Pharmacy) AMIKACIN PER PHARMACY NOTE XX ; Start 01/31/19 at 15:30 Amikacin Sulfate 300 mg/Sodium Chloride 101.2 ml @ 102 mls/hr AFTER DIALYSIS IVPB ; Start 02/01/19 at 16:30 Hydralazine HCl (Apresoline) 50 mg Q8 PO Last administered on 02/01/19 14:13; Admin Dose 50 MG; Start 02/01/19 at 14:00 SIN IZAGUIRRE Feb 01, 2019 16:34
[2019-02-01] MEDS: ATORVASTATIN 20 MG TAB PO SCH (20:22)
[2019-02-01] MEDS: AMIKACIN 300 MG in SOD CHLORIDE 0.9% 100 ML IVPB SCH (20:37)
[2019-02-01] MEDS: INSULIN DETEMIR [LEVEMIR] (100 UNITS/ML) SYG SC SCH (20:43)
--- NOTE | 2019-02-01 22:06 | PN ---
Date/Time of Note Date/Time of Note DATE: 02/01/19 TIME: 22:06 Assessment/Plan Lines/Catheters IV Catheter Type (from [facility]): PICC Line [place] in Place (from [facility]): No Exam/Review of Systems Vital Signs Vitals Vital Signs Date Temp Pulse Resp B/P (MAP) Pulse Ox O2 O2 Flow FiO2 Time Delivery Rate 02/01/19 98.4 64 20 124/60 98 20:00 (81) 02/01/19 3.0 30 16:25 02/01/19 Nasal 16:00 Cannula Intake and Output 01/31/19 01/31/19 02/01/19 1414:59 22:59 06:59 IntakeIntake Total 670 ml 240 ml BalanceBalance 670 ml 240 ml Results Result Diagram: 01/30/19 0752 01/30/19 0752 ALFREDO SANCHEZ MD Feb 01, 2019 22:06
[2019-02-02] VITALS (10 sets, daily range): BP systolic 132–148; BP diastolic 60–68; PULSE 63–87; RESP 19–20
[2019-02-02] MEDS: METOCLOPRAMIDE 5 MG TAB PO SCH ×3 (05:39→17:23)
[2019-02-02] MEDS: LEVOTHYROXINE 100 MCG TAB PO SCH (05:39)
[2019-02-02] MEDS: traMADol 50 MG TAB PO SCH ×4 (05:40→21:14)
[2019-02-02] MEDS: INSULIN ASPART [NOVOLOG] 3 ML PEN SC SCH ×4 (08:00→21:00)
[2019-02-02] MEDS: DOCUSATE SODIUM 100 MG CAP PO SCH ×2 (08:38→21:00)
[2019-02-02] MEDS: MULTIVIT/CA CARB/B CMPLX/FA TAB PO SCH (08:38)
[2019-02-02] MEDS: PANTOPRAZOLE (EC) 40 MG TAB PO SCH (08:38)
[2019-02-02] MEDS: MEGESTROL (40 MG/ML) 10ML CUP PO SCH (08:38)
[2019-02-02] MEDS: ZYVOX 600 MG TAB PO SCH ×2 (08:39→21:01)
[2019-02-02] MEDS: POLYETHYLENE GLYCOL 17 GM PACKET PO SCH (08:39)
[2019-02-02] MEDS: FOLIC ACID 1 MG TAB PO SCH (08:39)
[2019-02-02] MEDS: ZINC SULFATE 220 MG CAP PO SCH (08:39)
[2019-02-02] MEDS: ASCORBIC ACID 500 MG TAB PO SCH (08:39)
[2019-02-02] MEDS: AMIODARONE 200 MG TAB PO SCH (08:39)
[2019-02-02] MEDS: CITALOPRAM 20 MG TAB PO SCH (08:39)
[2019-02-02] MEDS: COLLAGENASE 5 GM (UD JAR) TOP SCH (08:40)
[2019-02-02] MEDS: MUPIROCIN 2% 22 GM OINT TOP SCH ×2 (08:40→21:01)
[2019-02-02] MEDS: BALSAM PERU/CASTOR OIL 60 GM TUBE TOP SCH ×2 (08:40→21:01)
[2019-02-02] MEDS: SODIUM HYPOCHLORITE (1/40) 1 LITER BTL IRR SCH (08:40)
[2019-02-02] MEDS: PREDNISOLONE ACET 1% 5 ML OPH RIGHT EYE SCH ×2 (08:40→21:01)
[2019-02-02] MEDS: HEPARIN 5,000 UNIT/1 ML VIAL SC SCH ×2 (09:03→21:11)
[2019-02-02] MEDS: METOPROLOL 25 MG TAB PO SCH ×2 (10:07→21:01)
[2019-02-02] MEDS: morphine 2 MG INJ IV PRN (13:02)
--- NOTE | 2019-02-02 13:54 | CONS ---
Consult Date/Type/Reason Admit Date/Time Jan 26, 2019 at 17:32 Initial Consult Date 01/27/19 Requesting Provider: ALEXUS VALENCIA MD Date/Time of Note DATE: 02/02/19 TIME: 13:51 Subjective NO acute events - pt comfortable - mild SOB - no tachy-cassie on tele now. ROS: No fever, no chills, no nausea, no vomiting, no diarrhea/constipation No recent weight changes No chest pain, no PND, no orthopnea - per nurse, mild SOB No dizziness, blurred vision No thirst, no heat or cold intolerance Objective Vitals Vital Signs Date Temp Pulse Resp B/P (MAP) Pulse Ox O2 O2 Flow FiO2 Time Delivery Rate 02/02/19 67 13:21 02/02/19 97.3 20 136/68 98 11:32 (90) 02/02/19 Nasal 2.0 08:00 Cannula 02/01/19 30 16:25 Intake and Output 02/01/19 02/01/19 02/02/19 1515:00 23:00 07:00 IntakeIntake Total 702 ml 580 ml OutputOutput Total 2400 ml BalanceBalance -1698 ml 580 ml Exam General: WN/WD/NAD, AOx comfortable HEENT: Unicetric/atraumatic/EOMI (does not follow commands) NECK: JVD elevated, no thyromegaly Lymph: no lymphadenopathy HEART: regular with no S3, II/ systolic murmur at apex LUNGS: Coarse sounds ABD: soft, NT, ND, +BS : Intact Neuro: non focal SKIN: chronic changes EXT: trace edema Results/Medications Result Diagram: 02/02/1960402/02/19604 Results 24 hrs Laboratory Tests Test 02/01/19 17:50 02/01/19 20:19 02/02/19 02:02 02/02/19 06:05 Bedside Glucose 96 104 139 White Blood Count 8.6 # Red Blood Count 3.23 L Hemoglobin 9.5 L Hematocrit 31.9 L Mean Corpuscular 98.8 Volume Mean Corpuscular 29.4 Hemoglobin Mean Corpuscular 29.8 L Hemoglobin Concent Red Cell 15.1 H Distribution Width Platelet Count 232 Mean Platelet Volume 9.1 Immature 1.900 H Granulocytes % Neutrophils % 71.5 Lymphocytes % 12.2 L Monocytes % 12.4 H Eosinophils % 1.7 Basophils % 0.3 Nucleated Red Blood 0.0 Cells % Immature 0.160 H Granulocytes # Neutrophils # 6.2 Lymphocytes # 1.1 Monocytes # 1.1 H Eosinophils # 0.2 Basophils # 0.0 Nucleated Red Blood 0.0 Cells # Sodium Level 136 Potassium Level 4.0 Chloride Level 100 Carbon Dioxide Level 30 Anion Gap 6 Blood Urea Nitrogen 17 Creatinine 2.01 H Est Glomerular 25 L Filtrat Rate mL/min Glucose Level 54 L Calcium Level 8.6 Test 02/02/19 08:07 02/02/19 08:34 02/02/19 08:54 02/02/19 12:05 Bedside Glucose 61 L 60 L 72 136 Home Meds Reported Medications Insulin Lispro (Humalog Kwikpen U-100) 100 Unit/1 Ml Insuln.pen, 0 SQ SLIDING SCALE, EA IF BS 151-200=1 UNIT,201-250=2 UNITS,251-300=3 UNITS,301-350=4 UNITS,351-400=5 UNITS, IF >400=6 UNITS AND CALL 01/26/19 Dariel Gissell/[place] Oil (Venelex Ointment) 60 Gm Oint..gm., 1 APPLIC TOP NEEDED, #1 TUB 01/26/19 Multivit/Ca Carb/B Cmplx/Fa* (Wendi-Cathi*) 1 Tab Tab, 1 TAB PO DAILY, TAB 01/26/19 Metoclopramide* (Reglan*) 5 Mg Tablet, 5 MG PO BEFORE MEALS, TAB 01/26/19 Protein Supplement (Promod) 946 Ml Liquid, 30 ML PO DAILY 01/26/19 Lactose-Free Food (Nutritional Supplement) 237 Ml Liquid, 1 PO BID 01/26/19 Morphine Sulfate* (Morphine* Liq) 10 Mg/0.5 Ml Disp.syrin, 6 MG SL Q4H PRN for PAIN 7-1010, ML 01/26/19 Ipratropium-Albuterol (Ipratropium-Albuterol) 0.5-3 Mg/3 Ml Ampul.neb, 3 ML INHALATION TID, #30 VIAL 01/26/19 Heparin Sod,Porcine/0.9 % NaCl (Heparin 5,000 Unit/5 ml-Ns) 5,000 Unit/5 Ml Syringe, 5000 UNIT IV Q8H 01/26/19 Ondansetron Hcl* (Zofran*) 4 Mg Tablet, 4 MG PO Q6H PRN for NAUSEA AND OR VOMITING, TAB 01/26/19 Citalopram Hydrobromide* (Citalopram Hydrobromide*) 20 Mg Tablet, 20 MG PO DAILY, #30 TAB 01/26/19 Bisacodyl* (Bisacodyl*) 5 Mg Tablet.dr, 10 MG PO Q24H PRN for CONSTIPATION, TAB 01/26/19 Diphenhydramine Hcl* (Diphenhydramine Hcl*) 25 Mg Capsule, 25 MG PO Q6 PRN for ITCHING, CAP 01/26/19 Polyethylene Glycol* (Polyethylene Glycol*) 17 Gm Powd.pack, 17 GM PO DAILY, #30 PACKET 11/18/18 Pantoprazole* (Pantoprazole*) 40 Mg Tablet.dr, 40 MG PO DAILY, TAB 11/18/18 Metoprolol Tartrate* (Lopressor*) 25 Mg Tablet, 25 MG PO BID, #60 TAB HOLD IF SBP<110 OR HR<60 11/18/18 Losartan Potassium* (Losartan Potassium*) 50 Mg Tablet, 50 MG PO BID, TAB HOLD IFSBP<110 OR HR<60 11/18/18 Levothyroxine Sodium* (Levothyroxine Sodium*) 100 Mcg Tablet, 100 MCG PO BEFORE BREAKFAST, #30 TAB 11/18/18 Insulin Detemir (Levemir) 100 Unit/1 Ml Vial, 6 UNITS SQ QHS 11/18/18 Folic Acid* (Folic Acid*) 1 Mg Tablet, 1 MG PO DAILY, TAB 11/18/18 Zinc Sulfate* (Zinc Sulfate*) 220 Mg Cap, 220 MG PO DAILY, CAP 11/18/18 Ascorbic Acid (Vitamin C) 500 Mg Tab, 500 MG PO DAILY, TAB 11/18/18 Acetaminophen* (Acetaminophen*) 325 Mg Tablet, 325 MG PO Q4H PRN for PAIN AND OR ELEVATED TEMP, #30 TAB FOR MILD PAIN 1-01/1711/18/18 Trazodone Hcl* (Trazodone Hcl*) 50 Mg Tablet, 50 MG PO QHS, #30 TAB 11/18/18 Tramadol HCl (Tramadol HCl) 50 Mg Tablet, 50 MG PO Q6H PRN for PAIN, #120 TAB 11/18/18 Prednisolone Acetate* (Pred Forte*) 5 Ml Susp, 1 DROP RIGHT EYE BID, EA 11/18/18 Docusate Sodium* (Colace*) 100 Mg Capsule, 100 MG PO BID, #30 CAP 11/18/18 Atorvastatin Calcium* (Atorvastatin Calcium*) 20 Mg Tablet, 20 MG PO QHS, #30 TAB 11/18/18 Amlodipine Besylate* (Norvasc*) 5 Mg Tablet, 5 MG PO QHS, TAB HOLD IF SBP<110 OR HR<60 11/18/18 Amiodarone Hcl* (Amiodarone Hcl*) 200 Mg Tablet, 200 MG PO DAILY, #30 TAB 11/18/18 Discontinued Reported Medications Multivitamins* (Theragran*) 1 Tab Tab, 1 TAB PO DAILY, TAB 11/18/18 Midodrine* (Midodrine*) 10 Mg Tablet, 10 MG PO Q8, TAB 11/18/18 Lorazepam* (Lorazepam*) 1 Mg Tablet, 1 MG PO Q8 PRN for ANXIETY, #60 TAB 11/18/18 Loperamide Hcl* (Loperamide Hcl*) 2 Mg Cap, 2 MG PO Q8, CAP 11/18/18 Simethicone (GAS RELIEF) 80 Mg Tab.chew, 80 MG PO BID, TAB.CHEW 11/18/18 Sodium Chloride (Saline Nasal Mist) 126 Ml Mist, 2 SPRAY NASAL TID, BOTTLE 11/18/18 Albuterol Sulfate* (Albuterol Sulfate* Neb) 0.083%-3 Ml Neb, 2.5 MG NEB Q6 PRN for WHEEZING AND SOB, #30 VIAL 11/18/18 Lactobacillus Acidophilus/Pect (Acidophilus-Pectin Capsule) 1 Each Capsule, 1 EACH PO DAILY, CAP 11/18/18 Clotrimazole (Clotrimazole) Vaginal Cream..g., 1 APPLIC VAG HS, EA 11/18/18 Citalopram Hydrobromide* (Citalopram Hydrobromide*) 10 Mg Tablet, 10 MG PO DAILY, #30 TAB 11/18/18 Clonidine Hcl* (Clonidine Hcl*) 0.1 Mg Tab, 0.1 MG PO Q4H PRN for ELEVATED BLOOD PRESSURE, TAB 11/18/18 Apixaban* (Eliquis*) 2.5 Mg Tablet, 2.5 MG PO BID, TAB 11/18/18 Medications Current Medications Amiodarone HCl (Cordarone) 200 mg DAILY PO Last administered on 02/02/19 08:39; Admin Dose 200 MG; Start 01/27/19 at 09:00 Ascorbic Acid (Vitamin C) 500 mg DAILY PO Last administered on 02/02/19 08:39; Admin Dose 500 MG; Start 01/27/19 at 09:00 Atorvastatin Calcium (Lipitor) 20 mg QHS PO Last administered on 02/01/19 20:22; Admin Dose 20 MG; Start 01/26/19 at 21:00 Bisacodyl (Dulcolax) 10 mg Q24H PRN PO CONSTIPATION; Start 01/26/19 at 20:00 Citalopram Hydrobromide (Celexa) 20 mg DAILY PO Last administered on 02/02/19 08:39; Admin Dose 20 MG; Start 01/27/19 at 09:00 Docusate Sodium (Colace) 100 mg BID PO Last administered on 02/02/19 08:38; Admin Dose 100 MG; Start 01/26/19 at 21:00 Folic Acid (Folic Acid) 1 mg DAILY PO Last administered on 02/02/19 08:39; Admin Dose 1 MG; Start 01/27/19 at 09:00 Insulin Detemir (Levemir) 6 units QHS SC Last administered on 02/01/19 20:43; Admin Dose 6 UNITS; Start 01/26/19 at 21:00 Levothyroxine Sodium (Synthroid) 100 mcg BEFORE BREAKFAST PO Last administered on 02/02/19 05:39; Admin Dose 100 MCG; Start 01/27/19 at 07:00 Metoclopramide HCl (Reglan) 5 mg BEFORE MEALS PO Last administered on 02/02/19 05:39; Admin Dose 5 MG; Start 01/27/19 at 07:30 Metoprolol Tartrate (Lopressor) 25 mg BID PO Last administered on 02/02/19 10:07; Admin Dose 25 MG; Start 01/26/19 at 21:00 Multivit/Ca Carb/ B Cmplx/FA/Prenat (Wendi-Cathi) 1 tab DAILY PO Last administ ered on 3/26/19at 08:38; Admin Dose 1 TAB; Start 01/27/19 at 09:00 Ondansetron HCl (Zofran Tab) 4 mg Q6H PRN PO NAUSEA AND/OR VOMITING Last administered on 01/30/19 10:43; Admin Dose 4 MG; Start 01/26/19 at 20:00 Pantoprazole (Protonix Tab) 40 mg DAILY PO Last administered on 02/02/19 08:38; Admin Dose 40 MG; Start 01/27/19 at 09:00 Polyethylene Glycol (Miralax) 17 gm DAILY PO Last administered on 02/02/19 08:39; Admin Dose 17 GM; Start 01/27/19 at 09:00 Prednisolone Acetate (Pred-Forte 1%) 1 drop BID RIGHT EYE Last administered on 02/02/19 08:40; Admin Dose 1 DROP; Start 01/26/19 at 21:00 Zinc Sulfate (Zinc Sulfate) 220 mg DAILY PO Last administered on 02/02/19 08:39; Admin Dose 220 MG; Start 01/27/19 at 09:00 Insulin Aspart (Novolog Insulin Pen) NOVOLOG *MODERATE* ALGORITHM WITH MEALS BEDTIME SC Last administered on 01/31/19 17:32; Admin Dose 2 UNIT; Start 01/26/19 at 21:00 Heparin Sodium (Porcine) (Heparin (5000 Units/1ml)) 5,000 unit BID SC Last administered on 02/02/19 09:03; Admin Dose 5,000 UNIT; Start 01/26/19 at 21:00 Morphine Sulfate (morphine) 2 mg Q4H PRN IV SEVERE PAIN LEVEL 7-10 Last administered on 02/02/19 13:02; Admin Dose 2 MG; Start 01/26/19 at 20:30 Miscellaneous Information 1 ea NOTE XX ; Start 01/26/19 at 23:45 Glucose (Glutose) 15 gm Q15M PRN PO DECREASED GLUCOSE; Start 01/26/19 at 23:45 Glucose (Glutose) 22.5 gm Q15M PRN PO DECREASED GLUCOSE; Start 01/26/19 at 23:45 Dextrose (D50w Syringe) 25 ml Q15M PRN IV DECREASED GLUCOSE Last administered on 01/28/19 07:50; Admin Dose 25 ML; Start 01/26/19 at 23:45 Dextrose (D50w Syringe) 50 ml Q15M PRN IV DECREASED GLUCOSE; Start 01/26/19 at 23:45 Glucagon (Glucagen) 1 mg Q15M PRN IM DECREASED GLUCOSE; Start 01/26/19 at 23:45 Glucose (Glutose) 15 gm Q15M PRN BUCCAL DECREASED GLUCOSE; Start 01/26/19 at 23:45 Alteplase, Recombinant (Cathflo (Activase)) 2 mg MAY REPEAT X1 PRN CATHETER IF CATHETER REMAINS OCCULUDED Last administered on 02/01/19 03:17; Admin Dose 2 MG; Start 01/27/19 at 07:00 Tramadol HCl (Ultram) 50 mg Q6H PO Last administered on 02/02/19 08:38; Admin Dose 50 MG; Start 01/27/19 at 08:00 Collagenase (Santyl) 1 applic DAILY TOP Last administered on 02/02/19 08:40; Admin Dose 1 APPLIC; Start 01/28/19 at 09:00 Sodium Hypochlorite (Dakin'S (Dilute )) 1 applic DAILY IRR Last administered on 02/02/19 08:40; Admin Dose 1 APPLIC; Start 01/28/19 at 09:00 Lorazepam (Ativan) 1 mg Q8H PRN PO ANXIETY; Start 01/27/19 at 22:30 Mupirocin (Bactroban) 1 applic BID TOP Last administered on 02/02/19 08:40; Admin Dose 1 APPLIC; Start 01/28/19 at 21:00 Epoetin Indra (Epogen (Esrd)) 8,000 units TuThSa@17 SC Last administered on 01/30/19at 17:31; Admin Dose 8,000 UNITS; Start 01/30/19 at 17:00 Megestrol Acetate (Megace Susp) 400 mg DAILY PO Last administered on 02/02/19 08:38; Admin Dose 400 MG; Start 01/30/19 at 14:30 Linezolid (Zyvox) 600 mg BID PO Last administered on 02/02/19 08:39; Admin Dose 600 MG; Start 01/31/19 at 16:00 Amikacin Sulfate (Amikacin Iv Per Pharmacy) AMIKACIN PER PHARMACY NOTE XX ; Start 01/31/19 at 15:30 Amikacin Sulfate 300 mg/Sodium Chloride 101.2 ml @ 102 mls/hr AFTER DIALYSIS IVPB Last administered on 02/01/19at 20:37; Admin Dose 102 MLS/HR; Start 02/01/19 at 16:30 Hydralazine HCl (Apresoline) 50 mg Q8 PO Last administered on 02/02/19at 05:39; Admin Dose 50 MG; Start 02/01/19 at 14:00 Assessment/Plan Hospital Course (Demo Recall) 1. Preop evaluation. The patient to undergo EGD whose 2D echo I just read revealing EF lower limits of normal, approximately 50% with no significant cont raindicated valvular lesions and negative troponin x1 since admit, patient is okay to proceed at a moderate cardiovascular risk. Now post-op s/p endoscopy and debridement of decub ulcer - well tolerated - no tachy-cassie arrhythmia on tele now 2. Congestive heart failure, diastolic acute on chronic- better now, brigida lkeep euvolemic 3. Hypertension - BP in good[place] now 4. Cardiac arrhythmia, on amiodarone, in sinus rhythm by EKG - sinus now 5. Hypothyroidism. 6. Diabetes mellitus- on meds, keep euglycemic 7. Nausea and vomiting. 8. Generalized weakness. 9. Decubitus ulcers s/p debridement - will monitor clinically 10. Anemia- H/H stable - no bleeding now 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 FAY VORA MD Feb 02, 2019 13:54
--- NOTE | 2019-02-02 15:03 | CONS ---
Assessment/Plan Assessment/Plan Hospital Course (Demo Recall) No acute changes overnight patient looks comfortable no fevers WBC 8.6 H&H 9.5 and 31.9 platelets 232 neutrophils 71.5 BUN 17 creatinine 2.01 Microbiology sacral wound culture grew Proteus, E. coli ESBL, VRE, and MRSA Antimicrobials: Amikacin, Zyvox PHYSICAL EXAMINATION: GENERAL: This is a fragile, wasted, well-developed, elderly woman, who is in no distress. HEENT: Head atraumatic, normocephalic. Sclerae anicteric. The patient has right eye blindness. Buccal mucosa pale, dry. NECK: Supple. CHEST: Rise symmetrical. Breath sounds diminished to bases. HEART: S1, S2. ABDOMEN: Obese, soft, bowel tones present. EXTREMITIES: Bilateral edema. SKIN: The patient has a large necrotic wounds on bilateral buttocks, left buttock and left posterior thigh area , also, necrotic wound. The patient has pressure sores on her left heel as well. Assessment: 1. Multiple necrotic infected wounds, s/p debridement 2. End-stage renal disease, hemodialysis dependent 3. Diabetes 4. Hypertension 5. MRSA colonization Plan: Patient is stable, continue antibiotics and topical Bactroban, wound care per surgical recommendations Consultation Date/Type/Reason Admit Date/Time Jan 26, 2019 at 17:32 Initial Consult Date 01/27/19 Type of Consult id Requesting Provider: ALEXUS VALENCIA MD Date/Time of Note DATE: 02/02/19 TIME: 15:02 Exam/Review of Systems Exam Vitals Vital Signs Date Temp Pulse Resp B/P (MAP) Pulse Ox O2 O2 Flow FiO2 Time Delivery Rate 02/02/19 67 13:21 02/02/19 97.3 20 136/68 98 11:32 (90) 02/02/19 Nasal 2.0 08:00 Cannula 02/01/19 30 16:25 Intake and Output 02/01/19 02/01/19 02/02/19 1414:59 22:59 06:59 IntakeIntake Total 702 ml 580 ml OutputOutput Total 2400 ml BalanceBalance -1698 ml 580 ml Results Result Diagram: 02/02/19 0605 02/02/19 0605 Results 24hrs Laboratory Tests Test 02/01/19 17:50 02/01/19 20:19 02/02/19 02:02 02/02/19 06:05 Bedside Glucose 96 104 139 White Blood Count 8.6 # Red Blood Count 3.23 L Hemoglobin 9.5 L Hematocrit 31.9 L Mean Corpuscular 98.8 Volume Mean Corpuscular 29.4 Hemoglobin Mean Corpuscular 29.8 L Hemoglobin Concent Red Cell 15.1 H Distribution Width Platelet Count 232 Mean Platelet Volume 9.1 Immature 1.900 H Granulocytes % Neutrophils % 71.5 Lymphocytes % 12.2 L Monocytes % 12.4 H Eosinophils % 1.7 Basophils % 0.3 Nucleated Red Blood 0.0 Cells % Immature 0.160 H Granulocytes # Neutrophils # 6.2 Lymphocytes # 1.1 Monocytes # 1.1 H Eosinophils # 0.2 Basophils # 0.0 Nucleated Red Blood 0.0 Cells # Sodium Level 136 Potassium Level 4.0 Chloride Level 100 Carbon Dioxide Level 30 Anion Gap 6 Blood Urea Nitrogen 17 Creatinine 2.01 H Est Glomerular 25 L Filtrat Rate mL/min Glucose Level 54 L Calcium Level 8.6 Test 02/02/19 08:07 02/02/19 08:34 02/02/19 08:54 02/02/19 12:05 Bedside Glucose 61 L 60 L 72 136 Medications Medication Current Medications Amiodarone HCl (Cordarone) 200 mg DAILY PO Last administered on 02/02/19 08:39; Admin Dose 200 MG; Start 01/27/19 at 09:00 Ascorbic Acid (Vitamin C) 500 mg DAILY PO Last administered on 02/02/19 08:39; Admin Dose 500 MG; Start 01/27/19 at 09:00 Atorvastatin Calcium (Lipitor) 20 mg QHS PO Last administered on 02/01/19 20:22; Admin Dose 20 MG; Start 01/26/19 at 21:00 Bisacodyl (Dulcolax) 10 mg Q24H PRN PO CONSTIPATION; Start 01/26/19 at 20:00 Citalopram Hydrobromide (Celexa) 20 mg DAILY PO Last administered on 02/02/19 08:39; Admin Dose 20 MG; Start 01/27/19 at 09:00 Docusate Sodium (Colace) 100 mg BID PO Last administered on 02/02/19 08:38; Admin Dose 100 MG; Start 01/26/19 at 21:00 Folic Acid (Folic Acid) 1 mg DAILY PO Last administered on 02/02/19 08:39; Admin Dose 1 MG; Start 01/27/19 at 09:00 Insulin Detemir (Levemir) 6 units QHS SC Last administered on 02/01/19 20:43; Admin Dose 6 UNITS; Start 01/26/19 at 21:00 Levothyroxine Sodium (Synthroid) 100 mcg BEFORE BREAKFAST PO Last administered on 02/02/19 05:39; Admin Dose 100 MCG; Start 01/27/19 at 07:00 Metoclopramide HCl (Reglan) 5 mg BEFORE MEALS PO Last administered on 02/02/19 05:39; Admin Dose 5 MG; Start 01/27/19 at 07:30 Metoprolol Tartrate (Lopressor) 25 mg BID PO Last administered on 02/02/19 10:07; Admin Dose 25 MG; Start 01/26/19 at 21:00 Multivit/Ca Carb/ B Cmplx/FA/Prenat (Wendi-Cathi) 1 tab DAILY PO Last administered on 02/02/19 08:38; Admin Dose 1 TAB; Start 01/27/19 at 09:00 Ondansetron HCl (Zofran Tab) 4 mg Q6H PRN PO NAUSEA AND/OR VOMITING Last administered on 01/30/19 10:43; Admin Dose 4 MG; Start 01/26/19 at 20:00 Pantoprazole (Protonix Tab) 40 mg DAILY PO Last administered on 02/02/19 08:38; Admin Dose 40 MG; Start 01/27/19 at 09:00 Polyethylene Glycol (Miralax) 17 gm DAILY PO Last administered on 02/02/19 08:39; Admin Dose 17 GM; Start 01/27/19 at 09:00 Prednisolone Acetate (Pred-Forte 1%) 1 drop BID RIGHT EYE Last administered on 02/02/19 08:40; Admin Dose 1 DROP; Start 01/26/19 at 21:00 Zinc Sulfate (Zinc Sulfate) 220 mg DAILY PO Last administered on 02/02/19 08:39; Admin Dose 220 MG; Start 01/27/19 at 09:00 Insulin Aspart (Novolog Insulin Pen) NOVOLOG *MODERATE* ALGORITHM WITH MEALS BEDTIME SC Last administered on 01/31/19 17:32; Admin Dose 2 UNIT; Start 01/26/19 at 21:00 Heparin Sodium (Porcine) (Heparin (5000 Units/1ml)) 5,000 unit BID SC Last administered on 02/02/19 09:03; Admin Dose 5,000 UNIT; Start 01/26/19 at 21:00 Morphine Sulfate (morphine) 2 mg Q4H PRN IV SEVERE PAIN LEVEL 7-10 Last adm inistered on 02/02/19at 13:02; Admin Dose 2 MG; Start 01/26/19 at 20:30 Miscellaneous Information 1 ea NOTE XX ; Start 01/26/19 at 23:45 Glucose (Glutose) 15 gm Q15M PRN PO DECREASED GLUCOSE; Start 01/26/19 at 23:45 Glucose (Glutose) 22.5 gm Q15M PRN PO DECREASED GLUCOSE; Start 01/26/19 at 23:45 Dextrose (D50w Syringe) 25 ml Q15M PRN IV DECREASED GLUCOSE Last administered on 01/28/19at 07:50; Admin Dose 25 ML; Start 01/26/19 at 23:45 Dextrose (D50w Syringe) 50 ml Q15M PRN IV DECREASED GLUCOSE; Start 01/26/19 at 23:45 Glucagon (Glucagen) 1 mg Q15M PRN IM DECREASED GLUCOSE; Start 01/26/19 at 23:45 Glucose (Glutose) 15 gm Q15M PRN BUCCAL DECREASED GLUCOSE; Start 01/26/19 at 23:45 Alteplase, Recombinant (Cathflo (Activase)) 2 mg MAY REPEAT X1 PRN CATHETER IF CATHETER REMAINS OCCULUDED Last administered on 02/01/19 03:17; Admin Dose 2 MG; Start 01/27/19 at 07:00 Tramadol HCl (Ultram) 50 mg Q6H PO Last administered on 02/02/19 08:38; Admin Dose 50 MG; Start 01/27/19 at 08:00 Collagenase (Santyl) 1 applic DAILY TOP Last administered on 02/02/19 08:40; Admin Dose 1 APPLIC; Start 01/28/19 at 09:00 Sodium Hypochlorite (Dakin'S (Dilute )) 1 applic DAILY IRR Last administered on 02/02/19 08:40; Admin Dose 1 APPLIC; Start 01/28/19 at 09:00 Lorazepam (Ativan) 1 mg Q8H PRN PO ANXIETY; Start 01/27/19 at 22:30 Mupirocin (Bactroban) 1 applic BID TOP Last administered on 02/02/19at 08:40; Admin Dose 1 APPLIC; Start 01/28/19 at 21:00 Epoetin Indra (Epogen (Esrd)) 8,000 units TuThSa@17 SC Last administered on 01/30/19 17:31; Admin Dose 8,000 UNITS; Start 01/30/19 at 17:00 Megestrol Acetate (Megace Susp) 400 mg DAILY PO Last administered on 02/02/19 08:38; Admin Dose 400 MG; Start 01/30/19 at 14:30 Linezolid (Zyvox) 600 mg BID PO Last administered on 02/02/19at 08:39; Admin Dose 600 MG; Start 01/31/19 at 16:00 Amikacin Sulfate (Amikacin Iv Per Pharmacy) AMIKACIN PER PHARMACY NOTE XX ; Start 01/31/19 at 15:30 Amikacin Sulfate 300 mg/Sodium Chloride 101.2 ml @ 102 mls/hr AFTER DIALYSIS IVPB Last administered on 02/01/19at 20:37; Admin Dose 102 MLS/HR; Start 02/01/19 at 16:30 Hydralazine HCl (Apresoline) 50 mg Q8 PO Last administered on 02/02/19at 05:39; Admin Dose 50 MG; Start 02/01/19 at 14:00 ALYX NAVARRO NP Feb 02, 2019 15:03
--- NOTE | 2019-02-02 17:40 | PN ---
Date/Time of Note Date/Time of Note DATE: 02/02/19 TIME: 17:39 Assessment/Plan VTE Prophylaxis Risk score (from [facility] [place])>0 risk: 9 SCD applied (from [facility] [place]): No SCD contraindicated: bilateral LE trauma Pharmacological prophylaxis: heparin Lines/Catheters IV Catheter Type (from [facility]): PICC Line Central line still needed: Yes Urinary Cath still in place: No Assessment/Plan Hospital Course Patient is status post hemodialysis yesterday will obtain chest x-ray for evaluation of pleural effusions, patient continues on supplemental oxygen. Patient continues on Zyvox and amikacin for wound infection. Assessment/Plan -Sacral and bilateral ischial infected wounds. Status post sacrum and right ischial debridement 01/29/19. Dr. Almanza is following in general surgery consultation. Continue antibiotics per ID. Dr. Guevara is following in infection disease consultation. -Abdominal pain. Status post EGD with notion of gastritis. Continue PPI. -Moderate bilateral pleural effusion -Hemodialysis dependent end-stage renal disease. Continue on hemodialysis. Dr. Mcdaniel is following from nephrology standpoint. -Diabetes mellitus type 2. Continue Levemir and NovoLog per mild algorithm sliding scale. -Hypothyroidism, continue levothyroxine -Hypertension. -Hyperlipidemia, continue statin -Anemia -MRSA of nares colonization. Contact isolation. -Right eye blindness. Further recommendations based on clinical course. Plan of care discussed with Dr. Mandel. Result Diagram: 02/02/19 0605 02/02/19 0605 Results 24hrs Laboratory Tests Test 02/01/19 17:50 02/01/19 20:19 02/02/19 02:02 02/02/19 06:05 Bedside Glucose 96 104 139 White Blood Count 8.6 # Red Blood Count 3.23 L Hemoglobin 9.5 L Hematocrit 31.9 L Mean Corpuscular 98.8 Volume Mean Corpuscular 29.4 Hemoglobin Mean Corpuscular 29.8 L Hemoglobin Concent Red Cell 15.1 H Distribution Width Platelet Count 232 Mean Platelet Volume 9.1 Immature 1.900 H Granulocytes % Neutrophils % 71.5 Lymphocytes % 12.2 L Monocytes % 12.4 H Eosinophils % 1.7 Basophils % 0.3 Nucleated Red Blood 0.0 Cells % Immature 0.160 H Granulocytes # Neutrophils # 6.2 Lymphocytes # 1.1 Monocytes # 1.1 H Eosinophils # 0.2 Basophils # 0.0 Nucleated Red Blood 0.0 Cells # Sodium Level 136 Potassium Level 4.0 Chloride Level 100 Carbon Dioxide Level 30 Anion Gap 6 Blood Urea Nitrogen 17 Creatinine 2.01 H Est Glomerular 25 L Filtrat Rate mL/min Glucose Level 54 L Calcium Level 8.6 Test 02/02/19 08:07 02/02/19 08:34 02/02/19 08:54 02/02/19 12:05 Bedside Glucose 61 L 60 L 72 136 Test 02/02/19 17:18 Bedside Glucose 127 Exam/Review of Systems Exam Vitals Vital Signs Date Temp Pulse Resp B/P (MAP) Pulse Ox O2 O2 Flow FiO2 Time Delivery Rate 02/02/19 64 16:31 02/02/19 98.0 20 142/66 100 15:45 (91) 02/02/19 Nasal 2.0 08:00 Cannula 02/01/19 30 16:25 Intake and Output 02/01/19 02/01/19 02/02/19 1515:00 23:00 07:00 IntakeIntake Total 702 ml 580 ml OutputOutput Total 2400 ml BalanceBalance -1698 ml 580 ml Exam Constitutional: alert, oriented Eyes: other (Right eye blindness) Respiratory: clear to auscultation Cardiovascular: regular rate and rhythm Gastrointestinal: soft, non-tender Musculoskeletal: nl extremities to inspection Extremities: normal pulses, edema, other (Right upper extremity AV fistula) Neurological: nl mental status Results Results 24hrs Laboratory Tests Test 02/01/19 17:50 02/01/19 20:19 02/02/19 02:02 02/02/19 06:05 Bedside Glucose 96 104 139 White Blood Count 8.6 # Red Blood Count 3.23 L Hemoglobin 9.5 L Hematocrit 31.9 L Mean Corpuscular 98.8 Volume Mean Corpuscular 29.4 Hemoglobin Mean Corpuscular 29.8 L Hemoglobin Concent Red Cell 15.1 H Distribution Width Platelet Count 232 Mean Platelet Volume 9.1 Immature 1.900 H Granulocytes % Neutrophils % 71.5 Lymphocytes % 12.2 L Monocytes % 12.4 H Eosinophils % 1.7 Basophils % 0.3 Nucleated Red Blood 0.0 Cells % Immature 0.160 H Granulocytes # Neutrophils # 6.2 Lymphocytes # 1.1 Monocytes # 1.1 H Eosinophils # 0.2 Basophils # 0.0 Nucleated Red Blood 0.0 Cells # Sodium Level 136 Potassium Level 4.0 Chloride Level 100 Carbon Dioxide Level 30 Anion Gap 6 Blood Urea Nitrogen 17 Creatinine 2.01 H Est Glomerular 25 L Filtrat Rate mL/min Glucose Level 54 L Calcium Level 8.6 Test 02/02/19 08:07 02/02/19 08:34 02/02/19 08:54 02/02/19 12:05 Bedside Glucose 61 L 60 L 72 136 Test 02/02/19 17:18 Bedside Glucose 127 Medications Medication Current Medications Amiodarone HCl (Cordarone) 200 mg DAILY PO Last administered on 02/02/19 08:39; Admin Dose 200 MG; Start 01/27/19 at 09:00 Ascorbic Acid (Vitamin C) 500 mg DAILY PO Last administered on 02/02/19 08:39; Admin Dose 500 MG; Start 01/27/19 at 09:00 Atorvastatin Calcium (Lipitor) 20 mg QHS PO Last administered on 02/01/19 20:22; Admin Dose 20 MG; Start 01/26/19 at 21:00 Bisacodyl (Dulcolax) 10 mg Q24H PRN PO CONSTIPATION; Start 01/26/19 at 20:00 Citalopram Hydrobromide (Celexa) 20 mg DAILY PO Last administered on 02/02/19 08:39; Admin Dose 20 MG; Start 01/27/19 at 09:00 Docusate Sodium (Colace) 100 mg BID PO Last administered on 02/02/19 08:38; Admin Dose 100 MG; Start 01/26/19 at 21:00 Folic Acid (Folic Acid) 1 mg DAILY PO Last administered on 02/02/19 08:39; Admin Dose 1 MG; Start 01/27/19 at 09:00 Insulin Detemir (Levemir) 6 units QHS SC Last administered on 02/01/19 20:43; Admin Dose 6 UNITS; Start 01/26/19 at 21:00 Levothyroxine Sodium (Synthroid) 100 mcg BEFORE BREAKFAST PO Last administered on 02/02/19 05:39; Admin Dose 100 MCG; Start 01/27/19 at 07:00 Metoclopramide HCl (Reglan) 5 mg BEFORE MEALS PO Last administered on 02/02/19 05:39; Admin Dose 5 MG; Start 01/27/19 at 07:30 Metoprolol Tartrate (Lopressor) 25 mg BID PO Last administered on 02/02/19 10:07; Admin Dose 25 MG; Start 01/26/19 at 21:00 Multivit/Ca Carb/ B Cmplx/FA/Prenat (Wendi-Cathi) 1 tab DAILY PO Last administered on 02/02/19 08:38; Admin Dose 1 TAB; Start 01/27/19 at 09:00 Ondansetron HCl (Zofran Tab) 4 mg Q6H PRN PO NAUSEA AND/OR VOMITING Last administered on 01/30/19 10:43; Admin Dose 4 MG; Start 01/26/19 at 20:00 Pantoprazole (Protonix Tab) 40 mg DAILY PO Last administered on 02/02/19 08:38; Admin Dose 40 MG; Start 01/27/19 at 09:00 Polyethylene Glycol (Miralax) 17 gm DAILY PO Last administered on 02/02/19 08:39; Admin Dose 17 GM; Start 01/27/19 at 09:00 Prednisolone Acetate (Pred-Forte 1%) 1 drop BID RIGHT EYE Last administered on 02/02/19 08:40; Admin Dose 1 DROP; Start 01/26/19 at 21:00 Zinc Sulfate (Zinc Sulfate) 220 mg DAILY PO Last administered on 02/02/19 08:39; Admin Dose 220 MG; Start 01/27/19 at 09:00 Insulin Aspart (Novolog Insulin Pen) NOVOLOG *MODERATE* ALGORITHM WITH MEALS BEDTIME SC Last administered on 01/31/19 17:32; Admin Dose 2 UNIT; Start 01/26/19 at 21:00 Heparin Sodium (Porcine) (Heparin (5000 Units/1ml)) 5,000 unit BID SC Last administered on 02/02/19 09:03; Admin Dose 5,000 UNIT; Start 01/26/19 at 21:00 Morphine Sulfate (morphine) 2 mg Q4H PRN IV SEVERE PAIN LEVEL 7-10 Last administered on 02/02/19 13:02; Admin Dose 2 MG; Start 01/26/19 at 20:30 Miscellaneous Information 1 ea NOTE XX ; Start 01/26/19 at 23:45 Glucose (Glutose) 15 gm Q15M PRN PO DECREASED GLUCOSE; Start 01/26/19 at 23:45 Glucose (Glutose) 22.5 gm Q15M PRN PO DECREASED GLUCOSE; Start 01/26/19 at 23:45 Dextrose (D50w Syringe) 25 ml Q15M PRN IV DECREASED GLUCOSE Last administered on 01/28/19at 07:50; Admin Dose 25 ML; Start 01/26/19 at 23:45 Dextrose (D50w Syringe) 50 ml Q15M PRN IV DECREASED GLUCOSE; Start 01/26/19 at 23:45 Glucagon (Glucagen) 1 mg Q15M PRN IM DECREASED GLUCOSE; Start 01/26/19 at 23:45 Glucose (Glutose) 15 gm Q15M PRN BUCCAL DECREASED GLUCOSE; Start 01/26/19 at 23:45 Alteplase, Recombinant (Cathflo (Activase)) 2 mg MAY REPEAT X1 PRN CATHETER IF CATHETER REMAINS OCCULUDED Last administered on 02/01/19 03:17; Admin Dose 2 MG; Start 01/27/19 at 07:00 Tramadol HCl (Ultram) 50 mg Q6H PO Last administered on 02/02/19 16:01; Admin Dose 50 MG; Start 01/27/19 at 08:00 Collagenase (Santyl) 1 applic DAILY TOP Last administered on 02/02/19 08:40; Admin Dose 1 APPLIC; Start 01/28/19 at 09:00 Sodium Hypochlorite (Dakin'S (Dilute )) 1 applic DAILY IRR Last administered on 02/02/19 08:40; Admin Dose 1 APPLIC; Start 01/28/19 at 09:00 Lorazepam (Ativan) 1 mg Q8H PRN PO ANXIETY; Start 01/27/19 at 22:30 Mupirocin (Bactroban) 1 applic BID TOP Last administered on 02/02/19 08:40; Admin Dose 1 APPLIC; Start 01/28/19 at 21:00 Epoetin Indra (Epogen (Esrd)) 8,000 units TuThSa@17 SC Last administered on 01/30/19 17:31; Admin Dose 8,000 UNITS; Start 01/30/19 at 17:00 Megestrol Acetate (Megace Susp) 400 mg DAILY PO Last administered on 02/02/19 08:38; Admin Dose 400 MG; Start 01/30/19 at 14:30 Linezolid (Zyvox) 600 mg BID PO Last administered on 02/02/19at 08:39; Admin Dose 600 MG; Start 01/31/19 at 16:00 Amikacin Sulfate (Amikacin Iv Per Pharmacy) AMIKACIN PER PHARMACY NOTE XX ; Start 01/31/19 at 15:30 Amikacin Sulfate 300 mg/Sodium Chloride 101.2 ml @ 102 mls/hr AFTER DIALYSIS IVPB Last administered on 02/01/19at 20:37; Admin Dose 102 MLS/HR; Start 02/01/19 at 16:30 Hydralazine HCl (Apresoline) 50 mg Q8 PO Last administered on 02/02/19at 16:00; Admin Dose 50 MG; Start 02/01/19 at 14:00 SIN IZAGUIRRE Feb 02, 2019 17:40
--- NOTE | 2019-02-02 17:50 | PN ---
Date/Time of Note Date/Time of Note DATE: 02/02/19 TIME: 17:48 Assessment/Plan Lines/Catheters IV Catheter Type (from [facility]): PICC Line [place] in Place (from [facility]): No Assessment/Plan Chief Complaint/Hosp Course 1. Sacral and bilateral ischial wounds: wnd cx noted; status post sacrum and right ischial debridement 01/29/19 -Further debridement as needed -Continue local care -frequent turning and off-loading -low air loss mattress -vitamin c -short term zinc -optimize nutrition 2. Abdominal pain and generalized weakness: Status post EGD: Gastritis -further w/u per med team -PPI 3. ESRD -limit nephrotoxins -HD per renal -renally dose meds 4. Anemia: -monitor and transfuse as needed 5. Diabetes -glucose monitoring 6. Hypothyroidism -med mgt 7. Pleural effusions: -Pulmonary consult -fluid management Thank you. Patient seen and examined in collaboration with Dr. Simón Almanza. Subjective 24 Hr Interval Summary No sacral or back pain. Less confused. No fevers, chills, sob, congested cough, cp, palpitations, hoffman, dizziness, nausea, vomiting, diarrhea, dysuria. Exam/Review of Systems Vital Signs Vitals Vital Signs Date Temp Pulse Resp B/P (MAP) Pulse Ox O2 O2 Flow FiO2 Time Delivery Rate 02/02/19 64 16:31 02/02/19 98.0 20 142/66 100 15:45 (91) 02/02/19 Nasal 2.0 08:00 Cannula 02/01/19 30 16:25 Intake and Output 02/01/19 02/01/19 02/02/19 1414:59 22:59 06:59 IntakeIntake Total 702 ml 580 ml OutputOutput Total 2400 ml BalanceBalance -1698 ml 580 ml Exam Free Text/Dictation Constitutional: alert, oriented, obese Psych: anxiety Head: normocephalic, atraumatic Eyes: nl conjunctiva, EOMI, nl lids, nl sclera ENMT: nl external ears & nose, nl lips & teeth, mucosa pink and moist Neck: supple, non-tender; No jvd Respiratory: normal air movement; No congested cough, No labored breathing Cardiovascular: regular rate and rhythm, nl pulses; No edema Gastrointestinal: soft, non-tender, distended Genitourinary - Female: nl external genitalia Musculoskeletal: nl extremities to inspection, nl gait and stance Extremities: normal pulses Neurological: nl mental status, nl speech, nl strength Skin: other (sacral: Packed, improved odor; right ischium: Packed, improved odor; left ischium: unstageable); No rash or lesions Results Result Diagram: 02/02/19 0605 02/02/19 0605 ARSLAN COATES NP Feb 02, 2019 17:50
[2019-02-02] MEDS: EPOETIN 4000 UNITS/1 ML INJ (ESRD) SC SCH (18:29)
[2019-02-02] MEDS: ATORVASTATIN 20 MG TAB PO SCH (21:00)
[2019-02-02] MEDS: INSULIN DETEMIR [LEVEMIR] (100 UNITS/ML) SYG SC SCH (21:17)
[2019-02-02] MEDS ORDERED: VITAMIN A & D 5 GM OINT PACKET TOP ONE (22:28)
[2019-02-02] MEDS: ALTEPLASE (CATHFLO) 2 MG INJ CATHETER PRN (23:09)
[2019-02-03] VITALS (15 sets, daily range): BP systolic 123–173; BP diastolic 54–80; PULSE 63–69; RESP 18–20
[2019-02-03] MEDS: traMADol 50 MG TAB PO SCH ×4 (01:53→21:23)
[2019-02-03] MEDS: METOCLOPRAMIDE 5 MG TAB PO SCH ×3 (05:27→17:30)
[2019-02-03] MEDS: LEVOTHYROXINE 100 MCG TAB PO SCH (05:27)
[2019-02-03] MEDS: INSULIN ASPART [NOVOLOG] 3 ML PEN SC SCH ×4 (08:00→21:00)
[2019-02-03] MEDS: POLYETHYLENE GLYCOL 17 GM PACKET PO SCH (09:00)
[2019-02-03] MEDS: DOCUSATE SODIUM 100 MG CAP PO SCH ×2 (09:00→21:00)
[2019-02-03] MEDS: ASCORBIC ACID 500 MG TAB PO SCH (09:00)
[2019-02-03] MEDS: SODIUM HYPOCHLORITE (1/40) 1 LITER BTL IRR SCH (09:56)
[2019-02-03] MEDS: MEGESTROL (40 MG/ML) 10ML CUP PO SCH (09:57)
[2019-02-03] MEDS: FOLIC ACID 1 MG TAB PO SCH (09:58)
[2019-02-03] MEDS: CITALOPRAM 20 MG TAB PO SCH (09:58)
[2019-02-03] MEDS: ZYVOX 600 MG TAB PO SCH ×2 (09:58→21:23)
[2019-02-03] MEDS: PANTOPRAZOLE (EC) 40 MG TAB PO SCH (09:58)
[2019-02-03] MEDS: MULTIVIT/CA CARB/B CMPLX/FA TAB PO SCH (09:58)
[2019-02-03] MEDS: ZINC SULFATE 220 MG CAP PO SCH (09:58)
[2019-02-03] MEDS: PREDNISOLONE ACET 1% 5 ML OPH RIGHT EYE SCH ×2 (09:59→21:24)
[2019-02-03] MEDS: BALSAM PERU/CASTOR OIL 60 GM TUBE TOP SCH ×2 (09:59→21:24)
[2019-02-03] MEDS: AMIODARONE 200 MG TAB PO SCH (09:59)
[2019-02-03] MEDS: METOPROLOL 25 MG TAB PO SCH ×2 (09:59→21:25)
[2019-02-03] MEDS: MUPIROCIN 2% 22 GM OINT TOP SCH ×2 (09:59→21:25)
[2019-02-03] MEDS: COLLAGENASE 5 GM (UD JAR) TOP SCH (09:59)
[2019-02-03] MEDS: morphine 2 MG INJ IV PRN ×2 (10:09→14:48)
[2019-02-03] MEDS: HEPARIN 5,000 UNIT/1 ML VIAL SC SCH ×2 (10:15→22:08)
--- NOTE | 2019-02-03 11:49 | PN ---
Date/Time of Note Date/Time of Note DATE: 02/03/19 TIME: 11:47 Assessment/Plan Lines/Catheters IV [facility] Type ([facility] PICC Line [place] in Place (from [facility]): No Assessment/Plan Chief Complaint/Hosp Course 1. Sacral and bilateral ischial wounds: wnd cx noted; status post sacrum and right ischial debridement 01/29/19 -Further debridement as needed -Continue local care> can follow with Dr. Almanza as outpatient in wound clinic. -frequent turning and off-loading -low air loss mattress -vitamin c -short term zinc -optimize nutrition 2. Abdominal pain and generalized weakness: Status post EGD: Gastritis -further w/u per med team -PPI 3. ESRD -limit nephrotoxins -HD per renal -renally dose meds 4. Anemia: -monitor and transfuse as needed 5. Diabetes with episodes of hypoglycemia -glucose management 6. Hypothyroidism -med mgt 7. Pleural effusions: -Pulmonary consult -fluid management Thank you. Patient seen and examined in collaboration with Dr. Simón Almanza. Subjective 24 Hr Interval Summary Episodes of hypoglycemia. Feels well. No fevers, chills, sob, congested cough, cp, palpitations, hoffman, dizziness, n/v/d/dysuria. Exam/Review of Systems Vital Signs Vitals Vital Signs Date Temp Pulse Resp B/P (MAP) Pulse Ox O2 O2 Flow FiO2 Time Delivery Rate 02/03/19 97.5 66 20 141/80 96 Nasal 11:36 (100) Cannula 02/03/19 3.0 04:30 02/01/19 30 16:25 Intake and Output 02/02/19 02/02/19 02/03/19 1515:00 23:00 07:00 IntakeIntake Total 450 ml 600 ml BalanceBalance 450 ml 600 ml Exam Free Text/Dictation Constitutional: alert, oriented, obese Psych: anxiety Head: normocephalic, atraumatic Eyes: nl conjunctiva, EOMI, nl lids, nl sclera ENMT: nl external ears & nose, nl lips & teeth, mucosa pink and moist Neck: supple, non-tender; No jvd Respiratory: normal air movement; No congested cough, No labored breathing Cardiovascular: regular rate and rhythm, nl pulses; No edema Gastrointestinal: soft, non-tender, distended Genitourinary - Female: nl external genitalia Musculoskeletal: nl extremities to inspection, nl gait and stance Extremities: normal pulses Neurological: nl mental status, nl speech, nl strength Skin: other (sacral: Packed, improved odor; right ischium: Packed, improved odor; left ischium: unstageable); No rash or lesions Results Result Diagram: 02/03/19 0535 02/03/19 0535 ARSLAN COATES NP Feb 03, 2019 11:49
--- NOTE | 2019-02-03 12:54 | CONS ---
Assessment/Plan Assessment/Plan Hospital Course (Demo Recall) IMPRESSION: 1. Preop evaluation. The patient to undergo EGD whose 2D echo I just read revealing EF lower limits of normal, approximately 50% with no significant contraindicated valvular lesions and negative troponin x1 since admit, patient is okay to proceed at a moderate cardiovascular risk. Now post-op s/p endoscopy and debridement of decub ulcer 2. Congestive heart failure, diastolic acute on chronic. 3. Hypertension. 4. Cardiac arrhythmia, on amiodarone, in sinus rhythm by EKG. 5. Hypothyroidism. 6. Diabetes mellitus. 7. Nausea and vomiting. 8. Generalized weakness. 9. Decubitus ulcers s/p debridement 10. Anemia. 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 Recc: -Tele -Contineu BB and increase hydralazine further to improve BP -continue statin -Continue abx's and f/u cx data -local wound care Consultation Date/Type/Reason Admit Date/Time Jan 26, 2019 at 17:32 Initial Consult Date 01/27/19 Type of Consult Cardiology Reason for Consultation HTN Requesting Provider: ALEXUS VALENCIA MD Date/Time of Note DATE: 02/03/19 TIME: 12:53 Exam/Review of Systems Vital Signs Vitals Vital Signs Date Temp Pulse Resp B/P (MAP) Pulse Ox O2 O2 Flow FiO2 Time Delivery Rate 02/03/19 97.5 66 20 141/80 96 Nasal 11:36 (100) Cannula 02/03/19 2.0 09:00 02/01/19 30 16:25 Intake and Output 02/02/19 02/02/19 02/03/19 1515:00 23:00 07:00 IntakeIntake Total 450 ml 600 ml BalanceBalance 450 ml 600 ml Exam Exam Review of Systems: CONSTITUTIONAL: No fevers, chills. PULMONARY: No sob CARDIOVASCULAR: No chest pain/palpitations GASTROINTESTINAL: No nausea/vomiting. GENITOURINARY: No hematuria/dysuria. MUSCULOSKELETAL: No myagias/arthalgias. PSYCHIATRIC: The patient denies depression. NEUROLOGIC: No weakness Constitutional: alert Psych: no complaints Head: normocephalic ENMT: mucosa pink and moist Neck: supple, jvd (9 cm water) Respiratory: diminished breath sounds Cardiovascular: regular rate and rhythm Gastrointestinal: soft, non-tender Musculoskeletal: muscle tone (normal) Extremities: edema (none) Neurological: other (No focal deficits) Labs Result Diagram: 02/03/19 0535 02/03/19 0535 Results 24hrs Laboratory Tests Test 02/02/19 17:18 02/02/19 20:59 02/03/19 01:52 02/03/19 05:35 Bedside Glucose 127 165 115 White Blood Count 8.4 Red Blood Count 3.31 L Hemoglobin 9.5 L Hematocrit 32.5 L Mean Corpuscular 98.2 Volume Mean Corpuscular 28.7 L Hemoglobin Mean Corpuscular 29.2 L Hemoglobin Concent Red Cell 15.3 H Distribution Width Platelet Count 217 Mean Platelet Volume 8.8 Immature 3.400 H Granulocytes % Neutrophils % 67.2 Lymphocytes % 15.7 Monocytes % 11.6 H Eosinophils % 1.6 Basophils % 0.5 Nucleated Red Blood 0.0 Cells % Immature 0.280 H Granulocytes # Neutrophils # 5.6 Lymphocytes # 1.3 Monocytes # 1.0 H Eosinophils # 0.1 Basophils # 0.0 Nucleated Red Blood 0.0 Cells # Sodium Level 134 L Potassium Level 4.3 Chloride Level 96 L Carbon Dioxide Level 28 Anion Gap 10 Blood Urea Nitrogen 24 H Creatinine 2.51 H Est Glomerular 19 L Filtrat Rate mL/min Glucose Level 41 #*L Calcium Level 8.5 Test 02/03/19 07:01 02/03/19 07:24 02/03/19 08:00 02/03/19 12:25 Bedside Glucose 60 L 76 94 102 Medications Medications Current Medications Amiodarone HCl (Cordarone) 200 mg DAILY PO Last administered on 02/03/19at 09:59; Admin Dose 200 MG; Start 01/27/19 at 09:00 Ascorbic Acid (Vitamin C) 500 mg DAILY PO Last administered on 02/02/19at 08:39; Admin Dose 500 MG; Start 01/27/19 at 09:00 Atorvastatin Calcium (Lipitor) 20 mg QHS PO Last administered on 02/02/19at 21:00; Admin Dose 20 MG; Start 01/26/19 at 21:00 Bisacodyl (Dulcolax) 10 mg Q24H PRN PO CONSTIPATION; Start 01/26/19 at 20:00 Citalopram Hydrobromide (Celexa) 20 mg DAILY PO Last administered on 02/03/19at 09:58; Admin Dose 20 MG; Start 01/27/19 at 09:00 Docusate Sodium (Colace) 100 mg BID PO Last administered on 02/02/19 21:00; Admin Dose 100 MG; Start 01/26/19 at 21:00 Folic Acid (Folic Acid) 1 mg DAILY PO Last administered on 02/03/19 09:58; Admin Dose 1 MG; Start 01/27/19 at 09:00 Insulin Detemir (Levemir) 6 units QHS SC Last administered on 02/02/19 21:17; Admin Dose 6 UNITS; Start 01/26/19 at 21:00 Levothyroxine Sodium (Synthroid) 100 mcg BEFORE BREAKFAST PO Last administered on 02/03/19 05:27; Admin Dose 100 MCG; Start 01/27/19 at 07:00 Metoclopramide HCl (Reglan) 5 mg BEFORE MEALS PO Last administered on 02/03/19 05:27; Admin Dose 5 MG; Start 01/27/19 at 07:30 Metoprolol Tartrate (Lopressor) 25 mg BID PO Last administered on 02/03/19 09:59; Admin Dose 25 MG; Start 01/26/19 at 21:00 Multivit/Ca Carb/ B Cmplx/FA/Prenat (Wendi-Cathi) 1 tab DAILY PO Last administered on 02/03/19 09:58; Admin Dose 1 TAB; Start 01/27/19 at 09:00 Ondansetron HCl (Zofran Tab) 4 mg Q6H PRN PO NAUSEA AND/OR VOMITING Last administered on 01/30/19 10:43; Admin Dose 4 MG; Start 01/26/19 at 20:00 Pantoprazole (Protonix Tab) 40 mg DAILY PO Last administered on 02/03/19 09:58; Admin Dose 40 MG; Start 01/27/19 at 09:00 Polyethylene Glycol (Miralax) 17 gm DAILY PO Last administered on 02/02/19 08:39; Admin Dose 17 GM; Start 01/27/19 at 09:00 Prednisolone Acetate (Pred-Forte 1%) 1 drop BID RIGHT EYE Last administered on 02/03/19 09:59; Admin Dose 1 DROP; Start 01/26/19 at 21:00 Zinc Sulfate (Zinc Sulfate) 220 mg DAILY PO Last administered on 02/03/19 09:58; Admin Dose 220 MG; Start 01/27/19 at 09:00 Insulin Aspart (Novolog Insulin Pen) NOVOLOG *MODERATE* ALGORITHM WITH MEALS BEDTIME SC Last administered on 01/31/19 17:32; Admin Dose 2 UNIT; Start 01/26/19 at 21:00 Heparin Sodium (Porcine) (Heparin (5000 Units/1ml)) 5,000 unit BID SC Last administered on 02/03/19 10:15; Admin Dose 5,000 UNIT; Start 01/26/19 at 21:00 Morphine Sulfate (morphine) 2 mg Q4H PRN IV SEVERE PAIN LEVEL 7-10 Last administered on 02/03/19 10:09; Admin Dose 2 MG; Start 01/26/19 at 20:30 Miscellaneous Information 1 ea NOTE XX ; Start 01/26/19 at 23:45 Glucose (Glutose) 15 gm Q15M PRN PO DECREASED GLUCOSE; Start 01/26/19 at 23:45 Glucose (Glutose) 22.5 gm Q15M PRN PO DECREASED GLUCOSE; Start 01/26/19 at 23:45 Dextrose (D50w Syringe) 25 ml Q15M PRN IV DECREASED GLUCOSE Last administered on 01/28/19 07:50; Admin Dose 25 ML; Start 01/26/19 at 23:45 Dextrose (D50w Syringe) 50 ml Q15M PRN IV DECREASED GLUCOSE; Start 01/26/19 at 23:45 Glucagon (Glucagen) 1 mg Q15M PRN IM DECREASED GLUCOSE; Start 01/26/19 at 23:45 Glucose (Glutose) 15 gm Q15M PRN BUCCAL DECREASED GLUCOSE; Start 01/26/19 at 23:45 Alteplase, Recombinant (Cathflo (Activase)) 2 mg MAY REPEAT X1 PRN CATHETER IF CATHETER REMAINS OCCULUDED Last administered on 02/02/19 23:09; Admin Dose 2 MG; Start 01/27/19 at 07:00 Tramadol HCl (Ultram) 50 mg Q6H PO Last administered on 02/03/19 01:53; Admin Dose 50 MG; Start 01/27/19 at 08:00 Collagenase (Santyl) 1 applic DAILY TOP Last administered on 02/03/19 09:59; Admin Dose 1 APPLIC; Start 01/28/19 at 09:00 Sodium Hypochlorite (Dakin'S (Dilute )) 1 applic DAILY IRR Last admi nistered on 02/03/19 09:56; Admin Dose 1 APPLIC; Start 01/28/19 at 09:00 Lorazepam (Ativan) 1 mg Q8H PRN PO ANXIETY; Start 01/27/19 at 22:30 Mupirocin (Bactroban) 1 applic BID TOP Last administered on 02/03/19 09:59; Admin Dose 1 APPLIC; Start 01/28/19 at 21:00 Epoetin Indra (Epogen (Esrd)) 8,000 units TuThSa@17 SC Last administered on 02/02/19 18:29; Admin Dose 8,000 UNITS; Start 01/30/19 at 17:00 Megestrol Acetate (Megace Susp) 400 mg DAILY PO Last administered on 02/03/19 09:57; Admin Dose 400 MG; Start 01/30/19 at 14:30 Linezolid (Zyvox) 600 mg BID PO Last administered on 02/03/19 09:58; Admin Dose 600 MG; Start 01/31/19 at 16:00 Amikacin Sulfate (Amikacin Iv Per Pharmacy) AMIKACIN PER PHARMACY NOTE XX ; Start 01/31/19 at 15:30 Amikacin Sulfate 300 mg/Sodium Chloride 101.2 ml @ 102 mls/hr AFTER DIALYSIS IVPB Last administered on 02/01/19 20:37; Admin Dose 102 MLS/HR; Start 02/01/19 at 16:30 Hydralazine HCl (Apresoline) 50 mg Q8 PO Last administered on 02/03/19 05:28; Admin Dose 50 MG; Start 02/01/19 at 14:00 ALIREZA LEE 27, 2019 12:54
--- NOTE | 2019-02-03 13:31 | CONS ---
Assessment/Plan Assessment/Plan Hospital Course (Demo Recall) No acute changes overnight, awake, looks comfortable no fevers Microbiology sacral wound culture grew Proteus, E. coli ESBL, VRE, and MRSA Antimicrobials: Amikacin, Zyvox PHYSICAL EXAMINATION: GENERAL: This is a fragile, wasted, well-developed, elderly woman, who is in no distress. HEENT: Head atraumatic, normocephalic. Sclerae anicteric. The patient has right eye blindness. Buccal mucosa pale, dry. NECK: Supple. CHEST: Rise symmetrical. Breath sounds diminished to bases. HEART: S1, S2. ABDOMEN: Obese, soft, bowel tones present. EXTREMITIES: Bilateral edema. SKIN: The patient has a large necrotic wounds on bilateral buttocks, left buttock and left posterior thigh area , also, necrotic wound. The patient has pressure sores on her left heel as well. Assessment: 1. Multiple necrotic infected wounds, s/p debridement 2. End-stage renal disease, hemodialysis dependent 3. Diabetes 4. Hypertension 5. MRSA colonization 6. HCAP==> LLL Plan: Doing better, continue antibiotics and topical Bactroban, wound care per surgical recommendations, encourage incentive spirometry, consider PT eval Consultation Date/Type/Reason Admit Date/Time Jan 26, 2019 at 17:32 Initial Consult Date 01/27/19 Type of Consult id Requesting Provider: ALEXUS VALENCIA MD Date/Time of Note DATE: 02/03/19 TIME: 13:30 Exam/Review of Systems Exam Vitals Vital Signs Date Temp Pulse Resp B/P (MAP) Pulse Ox O2 O2 Flow FiO2 Time Delivery Rate 02/03/19 66 12:00 02/03/19 97.5 20 141/80 96 Nasal 11:36 (100) Cannula 02/03/19 2.0 09:00 02/01/19 30 16:25 Intake and Output 02/02/19 02/02/19 02/03/19 1515:00 23:00 07:00 IntakeIntake Total 450 ml 600 ml BalanceBalance 450 ml 600 ml Results Result Diagram: 02/03/19 0535 02/03/19 0535 Results 24hrs Laboratory Tests Test 02/02/19 17:18 02/02/19 20:59 02/03/19 01:52 02/03/19 05:35 Bedside Glucose 127 165 115 White Blood Count 8.4 Red Blood Count 3.31 L Hemoglobin 9.5 L Hematocrit 32.5 L Mean Corpuscular 98.2 Volume Mean Corpuscular 28.7 L Hemoglobin Mean Corpuscular 29.2 L Hemoglobin Concent Red Cell 15.3 H Distribution Width Platelet Count 217 Mean Platelet Volume 8.8 Immature 3.400 H Granulocytes % Neutrophils % 67.2 Lymphocytes % 15.7 Monocytes % 11.6 H Eosinophils % 1.6 Basophils % 0.5 Nucleated Red Blood 0.0 Cells % Immature 0.280 H Granulocytes # Neutrophils # 5.6 Lymphocytes # 1.3 Monocytes # 1.0 H Eosinophils # 0.1 Basophils # 0.0 Nucleated Red Blood 0.0 Cells # Sodium Level 134 L Potassium Level 4.3 Chloride Level 96 L Carbon Dioxide Level 28 Anion Gap 10 Blood Urea Nitrogen 24 H Creatinine 2.51 H Est Glomerular 19 L Filtrat Rate mL/min Glucose Level 41 #*L Calcium Level 8.5 Test 02/03/19 07:01 02/03/19 07:24 02/03/19 08:00 02/03/19 12:25 Bedside Glucose 60 L 76 94 102 Medications Medication Current Medications Amiodarone HCl (Cordarone) 200 mg DAILY PO Last administered on 02/03/19 09:59; Admin Dose 200 MG; Start 01/27/19 at 09:00 Ascorbic Acid (Vitamin C) 500 mg DAILY PO Last administered on 02/02/19 08:39; Admin Dose 500 MG; Start 01/27/19 at 09:00 Atorvastatin Calcium (Lipitor) 20 mg QHS PO Last administered on 02/02/19 21:00; Admin Dose 20 MG; Start 01/26/19 at 21:00 Bisacodyl (Dulcolax) 10 mg Q24H PRN PO CONSTIPATION; Start 01/26/19 at 20:00 Citalopram Hydrobromide (Celexa) 20 mg DAILY PO Last administered on 02/03/19 09:58; Admin Dose 20 MG; Start 01/27/19 at 09:00 Docusate Sodium (Colace) 100 mg BID PO Last administered on 02/02/19 21:00; Admin Dose 100 MG; Start 01/26/19 at 21:00 Folic Acid (Folic Acid) 1 mg DAILY PO Last administered on 02/03/19 09:58; Admin Dose 1 MG; Start 01/27/19 at 09:00 Insulin Detemir (Levemir) 6 units QHS SC Last administered on 02/02/19 21:17; Admin Dose 6 UNITS; Start 01/26/19 at 21:00 Levothyroxine Sodium (Synthroid) 100 mcg BEFORE BREAKFAST PO Last administered on 02/03/19 05:27; Admin Dose 100 MCG; Start 01/27/19 at 07:00 Metoclopramide HCl (Reglan) 5 mg BEFORE MEALS PO Last administered on 02/03/19 05:27; Admin Dose 5 MG; Start 01/27/19 at 07:30 Metoprolol Tartrate (Lopressor) 25 mg BID PO Last administered on 02/03/19 0 9:59; Admin Dose 25 MG; Start 01/26/19 at 21:00 Multivit/Ca Carb/ B Cmplx/FA/Prenat (Wendi-Cathi) 1 tab DAILY PO Last administered on 02/03/19 09:58; Admin Dose 1 TAB; Start 01/27/19 at 09:00 Ondansetron HCl (Zofran Tab) 4 mg Q6H PRN PO NAUSEA AND/OR VOMITING Last administered on 01/30/19 10:43; Admin Dose 4 MG; Start 01/26/19 at 20:00 Pantoprazole (Protonix Tab) 40 mg DAILY PO Last administered on 02/03/19 09:58; Admin Dose 40 MG; Start 01/27/19 at 09:00 Polyethylene Glycol (Miralax) 17 gm DAILY PO Last administered on 02/02/19 08:39; Admin Dose 17 GM; Start 01/27/19 at 09:00 Prednisolone Acetate (Pred-Forte 1%) 1 drop BID RIGHT EYE Last administered on 02/03/19 09:59; Admin Dose 1 DROP; Start 01/26/19 at 21:00 Zinc Sulfate (Zinc Sulfate) 220 mg DAILY PO Last administered on 02/03/19 09:58; Admin Dose 220 MG; Start 01/27/19 at 09:00 Insulin Aspart (Novolog Insulin Pen) NOVOLOG *MODERATE* ALGORITHM WITH MEALS BEDTIME SC Last administered on 01/31/19 17:32; Admin Dose 2 UNIT; Start 01/26/19 at 21:00 Heparin Sodium (Porcine) (Heparin (5000 Units/1ml)) 5,000 unit BID SC Last administered on 02/03/19 10:15; Admin Dose 5,000 UNIT; Start 01/26/19 at 21:00 Morphine Sulfate (morphine) 2 mg Q4H PRN IV SEVERE PAIN LEVEL 7-10 Last administered on 02/03/19 10:09; Admin Dose 2 MG; Start 01/26/19 at 20:30 Miscellaneous Information 1 ea NOTE XX ; Start 01/26/19 at 23:45 Glucose (Glutose) 15 gm Q15M PRN PO DECREASED GLUCOSE; Start 01/26/19 at 23:45 Glucose (Glutose) 22.5 gm Q15M PRN PO DECREASED GLUCOSE; Start 01/26/19 at 23:45 Dextrose (D50w Syringe) 25 ml Q15M PRN IV DECREASED GLUCOSE Last administered on 01/28/19 07:50; Admin Dose 25 ML; Start 01/26/19 at 23:45 Dextrose (D50w Syringe) 50 ml Q15M PRN IV DECREASED GLUCOSE; Start 01/26/19 at 23:45 Glucagon (Glucagen) 1 mg Q15M PRN IM DECREASED GLUCOSE; Start 01/26/19 at 23:45 Glucose (Glutose) 15 gm Q15M PRN BUCCAL DECREASED GLUCOSE; Start 01/26/19 at 23:45 Alteplase, Recombinant (Cathflo (Activase)) 2 mg MAY REPEAT X1 PRN CATHETER IF CATHETER REMAINS OCCULUDED Last administered on 02/02/19 23:09; Admin Dose 2 MG; Start 01/27/19 at 07:00 Tramadol HCl (Ultram) 50 mg Q6H PO Last administered on 02/03/19 01:53; Admin Dose 50 MG; Start 01/27/19 at 08:00 Collagenase (Santyl) 1 applic DAILY TOP Last administered on 02/03/19 09:59; Admin Dose 1 APPLIC; Start 01/28/19 at 09:00 Sodium Hypochlorite (Dakin'S (Dilute )) 1 applic DAILY IRR Last administered on 02/03/19 09:56; Admin Dose 1 APPLIC; Start 01/28/19 at 09:00 Lorazepam (Ativan) 1 mg Q8H PRN PO ANXIETY; Start 01/27/19 at 22:30 Mupirocin (Bactroban) 1 applic BID TOP Last administered on 02/03/19 09:59; Admin Dose 1 APPLIC; Start 01/28/19 at 21:00 Epoetin Indra (Epogen (Esrd)) 8,000 units TuThSa@17 SC Last administered on 02/02/19at 18:29; Admin Dose 8,000 UNITS; Start 01/30/19 at 17:00 Megestrol Acetate (Megace Susp) 400 mg DAILY PO Last administered on 02/03/19at 09:57; Admin Dose 400 MG; Start 01/30/19 at 14:30 Linezolid (Zyvox) 600 mg BID PO Last administered on 02/03/19 09:58; Admin Dose 600 MG; Start 01/31/19 at 16:00 Amikacin Sulfate (Amikacin Iv Per Pharmacy) AMIKACIN PER PHARMACY NOTE XX ; Start 01/31/19 at 15:30 Amikacin Sulfate 300 mg/Sodium Chloride 101.2 ml @ 102 mls/hr AFTER DIALYSIS IVPB Last administered on 02/01/19at 20:37; Admin Dose 102 MLS/HR; Start 02/01/19 at 16:30 Hydralazine HCl (Apresoline) 75 mg Q8 PO ; Start 02/03/19 at 14:00 ALYX NAVARRO NP Feb 03, 2019 13:31
--- NOTE | 2019-02-03 13:35 | PN ---
Date/Time of Note Date/Time of Note DATE: 02/03/19 TIME: 13:20 Assessment/Plan VTE Prophylaxis Risk score (from Ns)>0 risk: 6 SCD applied (from [facility] [place]): No SCD contraindicated: bilateral LE trauma Pharmacological prophylaxis: heparin Lines/Catheters IV Catheter Type (from [facility]): PICC Line Central line still needed: Yes Urinary Cath still in place: No Assessment/Plan Hospital Course Chest x-ray noted, slightly decreased bilateral pleural effusion, and left lower lobe infiltrate. Patient with episode on hypoglycemia in AM, will adjust Levem ir. Assessment/Plan -Sacral and bilateral ischial infected wounds. Status post sacrum and right ischial debridement 01/29/19. Dr. Almanza is following in general surgery consultation. Continue antibiotics per ID. Dr. Guevara is following in infection disease consultation. Patient is currently on Zyvox and amikacin. -Left lower lobe infiltrate -Abdominal pain. Status post EGD with notion of gastritis. Continue PPI. -Moderate bilateral pleural effusion slightly improved per chest x-ray from 02/03/19. -Hemodialysis dependent end-stage renal disease. Continue on hemodialysis. Dr. Mcdaniel is following from nephrology standpoint. -Diabetes mellitus type 2. Continue Levemir and NovoLog per mild algorithm sliding scale. -Hypothyroidism, continue levothyroxine -Hypertension. -Hyperlipidemia, continue statin -Anemia -MRSA of nares colonization. Contact isolation. -Right eye blindness. Further recommendations based on clinical course. Plan of care discussed with Dr. Mandel. Result Diagram: 02/03/19 0535 02/03/19 0535 Results 24hrs Laboratory Tests Test 02/02/19 17:18 02/02/19 20:59 02/03/19 01:52 02/03/19 05:35 Bedside Glucose 127 165 115 White Blood Count 8.4 Red Blood Count 3.31 L Hemoglobin 9.5 L Hematocrit 32.5 L Mean Corpuscular 98.2 Volume Mean Corpuscular 28.7 L Hemoglobin Mean Corpuscular 29.2 L Hemoglobin Concent Red Cell 15.3 H Distribution Width Platelet Count 217 Mean Platelet Volume 8.8 Immature 3.400 H Granulocytes % Neutrophils % 67.2 Lymphocytes % 15.7 Monocytes % 11.6 H Eosinophils % 1.6 Basophils % 0.5 Nucleated Red Blood 0.0 Cells % Immature 0.280 H Granulocytes # Neutrophils # 5.6 Lymphocytes # 1.3 Monocytes # 1.0 H Eosinophils # 0.1 Basophils # 0.0 Nucleated Red Blood 0.0 Cells # Sodium Level 134 L Potassium Level 4.3 Chloride Level 96 L Carbon Dioxide Level 28 Anion Gap 10 Blood Urea Nitrogen 24 H Creatinine 2.51 H Est Glomerular 19 L Filtrat Rate mL/min Glucose Level 41 #*L Calcium Level 8.5 Test 02/03/19 07:01 02/03/19 07:24 02/03/19 08:00 02/03/19 12:25 Bedside Glucose 60 L 76 94 102 Exam/Review of Systems Exam Vitals Vital Signs Date Temp Pulse Resp B/P (MAP) Pulse Ox O2 O2 Flow FiO2 Time Delivery Rate 02/03/19 97.5 66 20 141/80 96 Nasal 11:36 (100) Cannula 02/03/19 2.0 09:00 02/01/19 30 16:25 Intake and Output 02/02/19 02/02/19 02/03/19 1515:00 23:00 07:00 IntakeIntake Total 450 ml 600 ml BalanceBalance 450 ml 600 ml Exam Constitutional: alert, oriented Eyes: other (Right eye blindness) Respiratory: clear to auscultation Cardiovascular: regular rate and rhythm Gastrointestinal: soft, non-tender Musculoskeletal: nl extremities to inspection Extremities: normal pulses, edema, other (Right upper extremity AV fistula) Neurological: nl mental status Results Results 24hrs Laboratory Tests Test 02/02/19 17:18 02/02/19 20:59 02/03/19 01:52 02/03/19 05:35 Bedside Glucose 127 165 115 White Blood Count 8.4 Red Blood Count 3.31 L Hemoglobin 9.5 L Hematocrit 32.5 L Mean Corpuscular 98.2 Volume Mean Corpuscular 28.7 L Hemoglobin Mean Corpuscular 29.2 L Hemoglobin Concent Red Cell 15.3 H Distribution Width Platelet Count 217 Mean Platelet Volume 8.8 Immature 3.400 H Granulocytes % Neutrophils % 67.2 Lymphocytes % 15.7 Monocytes % 11.6 H Eosinophils % 1.6 Basophils % 0.5 Nucleated Red Blood 0.0 Cells % Immature 0.280 H Granulocytes # Neutrophils # 5.6 Lymphocytes # 1.3 Monocytes # 1.0 H Eosinophils # 0.1 Basophils # 0.0 Nucleated Red Blood 0.0 Cells # Sodium Level 134 L Potassium Level 4.3 Chloride Level 96 L Carbon Dioxide Level 28 Anion Gap 10 Blood Urea Nitrogen 24 H Creatinine 2.51 H Est Glomerular 19 L Filtrat Rate mL/min Glucose Level 41 #*L Calcium Level 8.5 Test 02/03/19 07:01 02/03/19 07:24 02/03/19 08:00 02/03/19 12:25 Bedside Glucose 60 L 76 94 102 Medications Medication Current Medications Amiodarone HCl (Cordarone) 200 mg DAILY PO Last administered on 02/03/19 09:59; Admin Dose 200 MG; Start 01/27/19 at 09:00 Ascorbic Acid (Vitamin C) 500 mg DAILY PO Last administered on 02/02/19 08:39; Admin Dose 500 MG; Start 01/27/19 at 09:00 Atorvastatin Calcium (Lipitor) 20 mg QHS PO Last administered on 02/02/19 21:00; Admin Dose 20 MG; Start 01/26/19 at 21:00 Bisacodyl (Dulcolax) 10 mg Q24H PRN PO CONSTIPATION; Start 01/26/19 at 20:00 Citalopram Hydrobromide (Celexa) 20 mg DAILY PO Last administered on 02/03/19 09:58; Admin Dose 20 MG; Start 01/27/19 at 09:00 Docusate Sodium (Colace) 100 mg BID PO Last administered on 02/02/19 21:00; Admin Dose 100 MG; Start 01/26/19 at 21:00 Folic Acid (Folic Acid) 1 mg DAILY PO Last administered on 02/03/19 09:58; Admin Dose 1 MG; Start 01/27/19 at 09:00 Insulin Detemir (Levemir) 6 units QHS SC Last administered on 02/02/19 21:17; Admin Dose 6 UNITS; Start 01/26/19 at 21:00 Levothyroxine Sodium (Synthroid) 100 mcg BEFORE BREAKFAST PO Last administered on 02/03/19 05:27; Admin Dose 100 MCG; Start 01/27/19 at 07:00 Metoclopramide HCl (Reglan) 5 mg BEFORE MEALS PO Last administered on 02/03/19 05:27; Admin Dose 5 MG; Start 01/27/19 at 07:30 Metoprolol Tartrate (Lopressor) 25 mg BID PO Last administered on 02/03/19 09:59; Admin Dose 25 MG; Start 01/26/19 at 21:00 Multivit/Ca Carb/ B Cmplx/FA/Prenat (Wendi-Cathi) 1 tab DAILY PO Last administered on 02/03/19 09:58; Admin Dose 1 TAB; Start 01/27/19 at 09:00 Ondansetron HCl (Zofran Tab) 4 mg Q6H PRN PO NAUSEA AND/OR VOMITING Last administered on 01/30/19 10:43; Admin Dose 4 MG; Start 01/26/19 at 20:00 Pantoprazole (Protonix Tab) 40 mg DAILY PO Last administered on 02/03/19 09:58; Admin Dose 40 MG; Start 01/27/19 at 09:00 Polyethylene Glycol (Miralax) 17 gm DAILY PO Last administered on 02/02/19 08:39; Admin Dose 17 GM; Start 01/27/19 at 09:00 Prednisolone Acetate (Pred-Forte 1%) 1 drop BID RIGHT EYE Last administered on 02/03/19 09:59; Admin Dose 1 DROP; Start 01/26/19 at 21:00 Zinc Sulfate (Zinc Sulfate) 220 mg DAILY PO Last administered on 02/03/19 09:58; Admin Dose 220 MG; Start 01/27/19 at 09:00 Insulin Aspart (Novolog Insulin Pen) NOVOLOG *MODERATE* ALGORITHM WITH MEALS BEDTIME SC Last administered on 01/31/19 17:32; Admin Dose 2 UNIT; Start 01/26/19 at 21:00 Heparin Sodium (Porcine) (Heparin (5000 Units/1ml)) 5,000 unit BID SC Last administered on 02/03/19 10:15; Admin Dose 5,000 UNIT; Start 01/26/19 at 21:00 Morphine Sulfate (morphine) 2 mg Q4H PRN IV SEVERE PAIN LEVEL 7-10 Last administered on 02/03/19 10:09; Admin Dose 2 MG; Start 01/26/19 at 20:30 Miscellaneous Information 1 ea NOTE XX ; Start 01/26/19 at 23:45 Glucose (Glutose) 15 gm Q15M PRN PO DECREASED GLUCOSE; Start 01/26/19 at 23:45 Glucose (Glutose) 22.5 gm Q15M PRN PO DECREASED GLUCOSE; Start 01/26/19 at 23:45 Dextrose (D50w Syringe) 25 ml Q15M PRN IV DECREASED GLUCOSE Last administered on 01/28/19 07:50; Admin Dose 25 ML; Start 01/26/19 at 23:45 Dextrose (D50w Syringe) 50 ml Q15M PRN IV DECREASED GLUCOSE; Start 01/26/19 at 23:45 Glucagon (Glucagen) 1 mg Q15M PRN IM DECREASED GLUCOSE; Start 01/26/19 at 23:45 Glucose (Glutose) 15 gm Q15M PRN BUCCAL DECREASED GLUCOSE; Start 01/26/19 at 23:45 Alteplase, Recombinant (Cathflo (Activase)) 2 mg MAY REPEAT X1 PRN CATHETER IF CATHETER REMAINS OCCULUDED Last administered on 02/02/19 23:09; Admin Dose 2 MG; Start 01/27/19 at 07:00 Tramadol HCl (Ultram) 50 mg Q6H PO Last administered on 02/03/19 01:53; Admin Dose 50 MG; Start 01/27/19 at 08:00 Collagenase (Santyl) 1 applic DAILY TOP Last administered on 02/03/19 09:59; Admin Dose 1 APPLIC; Start 01/28/19 at 09:00 Sodium Hypochlorite (Dakin'S (Dilute )) 1 applic DAILY IRR Last administ ered on 02/03/19 09:56; Admin Dose 1 APPLIC; Start 01/28/19 at 09:00 Lorazepam (Ativan) 1 mg Q8H PRN PO ANXIETY; Start 01/27/19 at 22:30 Mupirocin (Bactroban) 1 applic BID TOP Last administered on 02/03/19 09:59; Admin Dose 1 APPLIC; Start 01/28/19 at 21:00 Epoetin Indra (Epogen (Esrd)) 8,000 units TuThSa@17 SC Last administered on 02/02/19 18:29; Admin Dose 8,000 UNITS; Start 01/30/19 at 17:00 Megestrol Acetate (Megace Susp) 400 mg DAILY PO Last administered on 02/03/19 09:57; Admin Dose 400 MG; Start 01/30/19 at 14:30 Linezolid (Zyvox) 600 mg BID PO Last administered on 02/03/19at 09:58; Admin Dose 600 MG; Start 01/31/19 at 16:00 Amikacin Sulfate (Amikacin Iv Per Pharmacy) AMIKACIN PER PHARMACY NOTE XX ; Start 01/31/19 at 15:30 Amikacin Sulfate 300 mg/Sodium Chloride 101.2 ml @ 102 mls/hr AFTER DIALYSIS IVPB Last administered on 02/01/19at 20:37; Admin Dose 102 MLS/HR; Start 02/01/19 at 16:30 Hydralazine HCl (Apresoline) 75 mg Q8 PO ; Start 02/03/19 at 14:00 SIN IZAGUIRRE Feb 03, 2019 13:33
[2019-02-03] MEDS: AMIKACIN 300 MG in SOD CHLORIDE 0.9% 100 ML IVPB SCH (20:19)
[2019-02-03] MEDS: ATORVASTATIN 20 MG TAB PO SCH (21:23)
--- NOTE | 2019-02-03 22:21 | CONS ---
Assessment/Plan Assessment/Plan Assessment/Plan (Daily) Bedside dialysis Aim for UD ~ 1-2 liter as tolerates IV Antibiotics Local wound care Follow up on H/H ( on long acting EPO as out patient ) High protein diet / Supplements Had HD yesterday Plan for HD next 01/29/2019 Monitor H/H High Protein diet More awake & alert Poor appetite with low albumin High protein diet Add Nepro supplement Add Megace Increase EPO Check IRON Bedside dialysis 01/29/2019 using 3K+ bath today Post debridement of the sacral wound Had HD 01/29/2019 Next HD Friday Increase protein Diet Bedisde HD Aim for UF ~ 1-2 kg as tolerates Follow up with H/H Consultation Date/Type/Reason Admit Date/Time Jan 26, 2019 at 17:32 Initial Consult Date 01/27/19 Type of Consult - Nephrology ( Dialysis Dependent ) Requesting Provider: ALEXUS VALENCIA MD Date/Time of Note DATE: 02/03/19 TIME: 22:20 24 HR Interval Summary Constitutional: no complaints, improved Exam/Review of Systems Exam Vitals Vital Signs Date Temp Pulse Resp B/P (MAP) Pulse Ox O2 O2 Flow FiO2 Time Delivery Rate 02/03/19 69 20:30 02/03/19 98.2 19 156/61 100 20:00 (92) 02/03/19 Nasal 2.0 17:30 Cannula 02/01/19 30 16:25 Intake and Output 02/02/19 02/02/19 02/03/19 1515:00 23:00 07:00 IntakeIntake Total 450 ml 600 ml BalanceBalance 450 ml 600 ml Constitutional: alert, oriented Psych: no complaints Neck: supple Respiratory: crackles/rales Cardiovascular: regular rate and rhythm, edema, systolic murmur Gastrointestinal: soft Results Result Diagram: 02/03/19 0535 02/03/19 0535 Results 24hrs Laboratory Tests Test 02/03/19 01:52 02/03/19 05:35 02/03/19 07:01 02/03/19 07:24 Bedside Glucose 115 60 L 76 White Blood Count 8.4 Red Blood Count 3.31 L Hemoglobin 9.5 L Hematocrit 32.5 L Mean Corpuscular 98.2 Volume Mean Corpuscular 28.7 L Hemoglobin Mean Corpuscular 29.2 L Hemoglobin Concent Red Cell 15.3 H Distribution Width Platelet Count 217 Mean Platelet Volume 8.8 Immature 3.400 H Granulocytes % Neutrophils % 67.2 Lymphocytes % 15.7 Monocytes % 11.6 H Eosinophils % 1.6 Basophils % 0.5 Nucleated Red Blood 0.0 Cells % Immature 0.280 H Granulocytes # Neutrophils # 5.6 Lymphocytes # 1.3 Monocytes # 1.0 H Eosinophils # 0.1 Basophils # 0.0 Nucleated Red Blood 0.0 Cells # Sodium Level 134 L Potassium Level 4.3 Chloride Level 96 L Carbon Dioxide Level 28 Anion Gap 10 Blood Urea Nitrogen 24 H Creatinine 2.51 H Est Glomerular 19 L Filtrat Rate mL/min Glucose Level 41 #*L Calcium Level 8.5 Test 02/03/19 08:00 02/03/19 12:25 02/03/19 18:12 02/03/19 21:22 Bedside Glucose 94 102 98 150 Medications Medication Current Medications Amiodarone HCl (Cordarone) 200 mg DAILY PO Last administered on 02/03/19at 09:59; Admin Dose 200 MG; Start 01/27/19 at 09:00 Ascorbic Acid (Vitamin C) 500 mg DAILY PO Last administered on 02/02/19 08:39; Admin Dose 500 MG; Start 01/27/19 at 09:00 Atorvastatin Calcium (Lipitor) 20 mg QHS PO Last administered on 02/03/19 21:23; Admin Dose 20 MG; Start 01/26/19 at 21:00 Bisacodyl (Dulcolax) 10 mg Q24H PRN PO CONSTIPATION; Start 01/26/19 at 20:00 Citalopram Hydrobromide (Celexa) 20 mg DAILY PO Last administered on 02/03/19 09:58; Admin Dose 20 MG; Start 01/27/19 at 09:00 Docusate Sodium (Colace) 100 mg BID PO Last administered on 02/02/19 21:00; Admin Dose 100 MG; Start 01/26/19 at 21:00 Folic Acid (Folic Acid) 1 mg DAILY PO Last administered on 02/03/19 09:58; Admin Dose 1 MG; Start 01/27/19 at 09:00 Levothyroxine Sodium (Synthroid) 100 mcg BEFORE BREAKFAST PO Last administered on 02/03/19 05:27; Admin Dose 100 MCG; Start 01/27/19 at 07:00 Metoclopramide HCl (Reglan) 5 mg BEFORE MEALS PO Last administered on 02/03/19 05:27; Admin Dose 5 MG; Start 01/27/19 at 07:30 Metoprolol Tartrate (Lopressor) 25 mg BID PO Last administered on 02/03/19 21:25; Admin Dose 25 MG; Start 01/26/19 at 21:00 Multivit/Ca Carb/ B Cmplx/FA/Prenat (Wendi-Cathi) 1 tab DAILY PO Last administered on 02/03/19 09:58; Admin Dose 1 TAB; Start 01/27/19 at 09:00 Ondansetron HCl (Zofran Tab) 4 mg Q6H PRN PO NAUSEA AND/OR VOMITING Last administered on 01/30/19 10:43; Admin Dose 4 MG; Start 01/26/19 at 20:00 Pantoprazole (Protonix Tab) 40 mg DAILY PO Last administered on 02/03/19 09:58; Admin Dose 40 MG; Start 01/27/19 at 09:00 Polyethylene Glycol (Miralax) 17 gm DAILY PO Last administered on 02/02/19 08:39; Admin Dose 17 GM; Start 01/27/19 at 09:00 Prednisolone Acetate (Pred-Forte 1%) 1 drop BID RIGHT EYE Last administered on 02/03/19 21:24; Admin Dose 1 DROP; Start 01/26/19 at 21:00 Zinc Sulfate (Zinc Sulfate) 220 mg DAILY PO Last administered on 02/03/19 09:58; Admin Dose 220 MG; Start 01/27/19 at 09:00 Insulin Aspart (Novolog Insulin Pen) NOVOLOG *MODERATE* ALGORITHM WITH MEALS BEDTIME SC Last administered on 01/31/19 17:32; Admin Dose 2 UNIT; Start 01/26/19 at 21:00 Heparin Sodium (Porcine) (Heparin (5000 Units/1ml)) 5,000 unit BID SC Last administered on 02/03/19 22:08; Admin Dose 5,000 UNIT; Start 01/26/19 at 21:00 Morphine Sulfate (morphine) 2 mg Q4H PRN IV SEVERE PAIN LEVEL 7-10 Last administered on 02/03/19 14:48; Admin Dose 2 MG; Start 01/26/19 at 20:30 Miscellaneous Information 1 ea NOTE XX ; Start 01/26/19 at 23:45 Glucose (Glutose) 15 gm Q15M PRN PO DECREASED GLUCOSE; Start 01/26/19 at 23:45 Glucose (Glutose) 22.5 gm Q15M PRN PO DECREASED GLUCOSE; Start 01/26/19 at 23:45 Dextrose (D50w Syringe) 25 ml Q15M PRN IV DECREASED GLUCOSE Last administered on 01/28/19 07:50; Admin Dose 25 ML; Start 01/26/19 at 23:45 Dextrose (D50w Syringe) 50 ml Q15M PRN IV DECREASED GLUCOSE; Start 01/26/19 at 23:45 Glucagon (Glucagen) 1 mg Q15M PRN IM DECREASED GLUCOSE; Start 01/26/19 at 23:45 Glucose (Glutose) 15 gm Q15M PRN BUCCAL DECREASED GLUCOSE; Start 01/26/19 at 23:45 Alteplase, Recombinant (Cathflo (Activase)) 2 mg MAY REPEAT X1 PRN CATHETER IF CATHETER REMAINS OCCULUDED Last administered on 02/02/19 23:09; Admin Dose 2 MG; Start 01/27/19 at 07:00 Tramadol HCl (Ultram) 50 mg Q6H PO Last administered on 02/03/19 21:23; Admin Dose 50 MG; Start 01/27/19 at 08:00 Collagenase (Santyl) 1 applic DAILY TOP Last administered on 02/03/19 09:59; Admin Dose 1 APPLIC; Start 01/28/19 at 09:00 Sodium Hypochlorite (Dakin'S (Dilute )) 1 applic DAILY IRR Last admin istered on 02/03/19 09:56; Admin Dose 1 APPLIC; Start 01/28/19 at 09:00 Lorazepam (Ativan) 1 mg Q8H PRN PO ANXIETY; Start 01/27/19 at 22:30 Mupirocin (Bactroban) 1 applic BID TOP Last administered on 02/03/19 21:25; Admin Dose 1 APPLIC; Start 01/28/19 at 21:00 Epoetin Indra (Epogen (Esrd)) 8,000 units TuThSa@17 SC Last administered on 02/02/19 18:29; Admin Dose 8,000 UNITS; Start 01/30/19 at 17:00 Megestrol Acetate (Megace Susp) 400 mg DAILY PO Last administered on 02/03/19 09:57; Admin Dose 400 MG; Start 01/30/19 at 14:30 Linezolid (Zyvox) 600 mg BID PO Last administered on 02/03/19 21:23; Admin Dose 600 MG; Start 01/31/19 at 16:00 Amikacin Sulfate (Amikacin Iv Per Pharmacy) AMIKACIN PER PHARMACY NOTE XX ; Start 01/31/19 at 15:30 Amikacin Sulfate 300 mg/Sodium Chloride 101.2 ml @ 102 mls/hr AFTER DIALYSIS IVPB Last administered on 02/03/19 20:19; Admin Dose 102 MLS/HR; Start 02/01/19 at 16:30 Hydralazine HCl (Apresoline) 75 mg Q8 PO ; Start 02/03/19 at 14:00 ANIBAL ALMANZAR MD Feb 03, 2019 22:21
[2019-02-04] VITALS (11 sets, daily range): BP systolic 133–174; BP diastolic 63–74; PULSE 62–114; RESP 16–20
[2019-02-04] MEDS: traMADol 50 MG TAB PO SCH ×4 (02:18→22:28)
[2019-02-04] MEDS: LEVOTHYROXINE 100 MCG TAB PO SCH (05:18)
[2019-02-04] MEDS: METOCLOPRAMIDE 5 MG TAB PO SCH ×3 (05:18→17:25)
[2019-02-04] MEDS: INSULIN ASPART [NOVOLOG] 3 ML PEN SC SCH ×4 (08:05→21:00)
[2019-02-04] MEDS: SODIUM HYPOCHLORITE (1/40) 1 LITER BTL IRR SCH (08:07)
[2019-02-04] MEDS: COLLAGENASE 5 GM (UD JAR) TOP SCH (08:07)
[2019-02-04] MEDS: BALSAM PERU/CASTOR OIL 60 GM TUBE TOP SCH ×2 (08:07→22:23)
[2019-02-04] MEDS: PANTOPRAZOLE (EC) 40 MG TAB PO SCH (09:00)
[2019-02-04] MEDS: ASCORBIC ACID 500 MG TAB PO SCH (10:00)
[2019-02-04] MEDS: CITALOPRAM 20 MG TAB PO SCH (10:00)
[2019-02-04] MEDS: POLYETHYLENE GLYCOL 17 GM PACKET PO SCH (10:00)
[2019-02-04] MEDS: DOCUSATE SODIUM 100 MG CAP PO SCH ×2 (10:00→21:00)
[2019-02-04] MEDS: MEGESTROL (40 MG/ML) 10ML CUP PO SCH (10:00)
[2019-02-04] MEDS: ZINC SULFATE 220 MG CAP PO SCH (10:00)
[2019-02-04] MEDS: FOLIC ACID 1 MG TAB PO SCH (10:00)
[2019-02-04] MEDS: MULTIVIT/CA CARB/B CMPLX/FA TAB PO SCH (10:00)
[2019-02-04] MEDS: ZYVOX 600 MG TAB PO SCH ×2 (10:00→22:25)
[2019-02-04] MEDS: PREDNISOLONE ACET 1% 5 ML OPH RIGHT EYE SCH ×2 (10:01→22:23)
[2019-02-04] MEDS: METOPROLOL 25 MG TAB PO SCH ×2 (10:01→22:27)
[2019-02-04] MEDS: AMIODARONE 200 MG TAB PO SCH (10:01)
[2019-02-04] MEDS: MUPIROCIN 2% 22 GM OINT TOP SCH ×2 (10:01→22:23)
[2019-02-04] MEDS: HEPARIN 5,000 UNIT/1 ML VIAL SC SCH ×2 (10:23→22:55)
[2019-02-04] MEDS ORDERED: LACTULOSE 30ML CUP PO PRN (11:00)
[2019-02-04] MEDS ORDERED: POLYETHYLENE GLYCOL 3350 119 GM POWDER PO ONE (11:30)
[2019-02-04] MEDS ORDERED: ONDANSETRON 4 MG INJ IV PRN (12:00)
[2019-02-04] MEDS ORDERED: ONDANSETRON 4 MG INJ ONE (12:05)
--- NOTE | 2019-02-04 12:31 | CONS ---
Assessment/Plan Assessment/Plan Hospital Course (Demo Recall) No acute changes overnight, looks comfortable no fevers Microbiology sacral wound culture grew Proteus, E. coli ESBL, VRE, and MRSA Antimicrobials: Amikacin, Zyvox PHYSICAL EXAMINATION: GENERAL: This is a fragile, wasted, well-developed, elderly woman, who is in no distress. HEENT: Head atraumatic, normocephalic. Sclerae anicteric. The patient has right eye blindness. Buccal mucosa pale, dry. NECK: Supple. CHEST: Rise symmetrical. Breath sounds diminished to bases. HEART: S1, S2. ABDOMEN: Obese, soft, bowel tones present. EXTREMITIES: Bilateral edema. SKIN: The patient has a large necrotic wounds on bilateral buttocks, left buttock and left posterior thigh area , also, necrotic wound. The patient has pressure sores on her left heel as well. Assessment: 1. Multiple necrotic infected wounds, s/p debridement 2. End-stage renal disease, hemodialysis dependent 3. Diabetes 4. Hypertension 5. MRSA colonization 6. HCAP==> LLL Plan: Remains stable, continue antibiotics, wound care per surgical recommendations, encourage incentive spirometry, repeat cxr in am Consultation Date/Type/Reason Admit Date/Time Jan 26, 2019 at 17:32 Initial Consult Date 01/27/19 Type of Consult id Requesting Provider: ALEXUS VALENCIA MD Date/Time of Note DATE: 02/04/19 TIME: 12:30 Exam/Review of Systems Exam Vitals Vital Signs Date Temp Pulse Resp B/P (MAP) Pulse Ox O2 O2 Flow FiO2 Time Delivery Rate 02/04/19 98.6 69 18 160/74 96 Nasal 11:10 (102) Cannula 02/04/19 2.0 09:42 02/01/19 30 16:25 Intake and Output 02/03/19 02/03/19 02/04/19 1515:00 23:00 07:00 IntakeIntake Total 480 ml 720 ml OutputOutput Total 2500 ml BalanceBalance -2020 ml 720 ml Results Result Diagram: 02/04/19 0523 02/04/19 0523 Results 24hrs Laboratory Tests Test 02/03/19 18:12 02/03/19 21:22 02/04/19 02:17 02/04/19 05:23 Bedside Glucose 98 150 177 White Blood Count 9.6 Red Blood Count 3.16 L Hemoglobin 9.2 L Hematocrit 30.0 L Mean Corpuscular 94.9 Volume Mean Corpuscular 29.1 Hemoglobin Mean Corpuscular 30.7 L Hemoglobin Concent Red Cell 15.3 H Distribution Width Platelet Count 236 Mean Platelet Volume 8.8 Immature 2.400 H Granulocytes % Neutrophils % 78.2 H Lymphocytes % 10.0 L Monocytes % 8.2 Eosinophils % 0.9 Basophils % 0.3 Nucleated Red Blood 0.0 Cells % Immature 0.230 H Granulocytes # Neutrophils # 7.5 Lymphocytes # 1.0 Monocytes # 0.8 Eosinophils # 0.1 Basophils # 0.0 Nucleated Red Blood 0.0 Cells # Sodium Level 133 L Potassium Level 4.2 Chloride Level 98 Carbon Dioxide Level 30 Anion Gap 5 Blood Urea Nitrogen 13 # Creatinine 1.84 H Est Glomerular 28 L Filtrat Rate mL/min Glucose Level 150 # Calcium Level 8.4 Test 02/04/19 08:01 Bedside Glucose 154 Medications Medication Current Medications Amiodarone HCl (Cordarone) 200 mg DAILY PO Last administered on 02/04/19 10 :01; Admin Dose 200 MG; Start 01/27/19 at 09:00 Ascorbic Acid (Vitamin C) 500 mg DAILY PO Last administered on 02/04/19 10:00; Admin Dose 500 MG; Start 01/27/19 at 09:00 Atorvastatin Calcium (Lipitor) 20 mg QHS PO Last administered on 02/03/19 21:23; Admin Dose 20 MG; Start 01/26/19 at 21:00 Bisacodyl (Dulcolax) 10 mg Q24H PRN PO CONSTIPATION; Start 01/26/19 at 20:00 Citalopram Hydrobromide (Celexa) 20 mg DAILY PO Last administered on 02/04/19 10:00; Admin Dose 20 MG; Start 01/27/19 at 09:00 Docusate Sodium (Colace) 100 mg BID PO Last administered on 02/04/19 10:00; Admin Dose 100 MG; Start 01/26/19 at 21:00 Folic Acid (Folic Acid) 1 mg DAILY PO Last administered on 02/04/19 10:00; Admin Dose 1 MG; Start 01/27/19 at 09:00 Levothyroxine Sodium (Synthroid) 100 mcg BEFORE BREAKFAST PO Last administered on 02/04/19 05:18; Admin Dose 100 MCG; Start 01/27/19 at 07:00 Metoclopramide HCl (Reglan) 5 mg BEFORE MEALS PO Last administered on 02/04/19 12:08; Admin Dose 5 MG; Start 01/27/19 at 07:30 Metoprolol Tartrate (Lopressor) 25 mg BID PO Last administered on 02/04/19 10:01; Admin Dose 25 MG; Start 01/26/19 at 21:00 Multivit/Ca Carb/ B Cmplx/FA/Prenat (Wendi-Cathi) 1 tab DAILY PO Last administered on 02/04/19 10:00; Admin Dose 1 TAB; Start 01/27/19 at 09:00 Ondansetron HCl (Zofran Tab) 4 mg Q6H PRN PO NAUSEA AND/OR VOMITING Last administered on 01/30/19 10:43; Admin Dose 4 MG; Start 01/26/19 at 20:00 Pantoprazole (Protonix Tab) 40 mg DAILY PO Last administered on 02/04/19 09:00; Admin Dose 40 MG; Start 01/27/19 at 09:00 Polyethylene Glycol (Miralax) 17 gm DAILY PO Last administered on 02/04/19 10:00; Admin Dose 17 GM; Start 01/27/19 at 09:00 Prednisolone Acetate (Pred-Forte 1%) 1 drop BID RIGHT EYE Last administered on 02/04/19 10:01; Admin Dose 1 DROP; Start 01/26/19 at 21:00 Zinc Sulfate (Zinc Sulfate) 220 mg DAILY PO Last administered on 02/04/19 10:00; Admin Dose 220 MG; Start 01/27/19 at 09:00 Insulin Aspart (Novolog Insulin Pen) NOVOLOG *MODERATE* ALGORITHM WITH MEALS BEDTIME SC Last administered on 02/04/19 08:05; Admin Dose 2 UNIT; Start 01/26/19 at 21:00 Heparin Sodium (Porcine) (Heparin (5000 Units/1ml)) 5,000 unit BID SC Last administered on 02/04/19 10:23; Admin Dose 5,000 UNIT; Start 01/26/19 at 21:00 Morphine Sulfate (morphine) 2 mg Q4H PRN IV SEVERE PAIN LEVEL 7-10 Last administered on 02/03/19 14:48; Admin Dose 2 MG; Start 01/26/19 at 20:30 Miscellaneous Information 1 ea NOTE XX ; Start 01/26/19 at 23:45 Glucose (Glutose) 15 gm Q15M PRN PO DECREASED GLUCOSE; Start 01/26/19 at 23:45 Glucose (Glutose) 22.5 gm Q15M PRN PO DECREASED GLUCOSE; Start 01/26/19 at 23:45 Dextrose (D50w Syringe) 25 ml Q15M PRN IV DECREASED GLUCOSE Last administered on 01/28/19at 07:50; Admin Dose 25 ML; Start 01/26/19 at 23:45 Dextrose (D50w Syringe) 50 ml Q15M PRN IV DECREASED GLUCOSE; Start 01/26/19 at 23:45 Glucagon (Glucagen) 1 mg Q15M PRN IM DECREASED GLUCOSE; Start 01/26/19 at 23:45 Glucose (Glutose) 15 gm Q15M PRN BUCCAL DECREASED GLUCOSE; Start 01/26/19 at 23:45 Alteplase, Recombinant (Cathflo (Activase)) 2 mg MAY REPEAT X1 PRN CATHETER IF CATHETER REMAINS OCCULUDED Last administered on 02/02/19 23:09; Admin Dose 2 MG; Start 01/27/19 at 07:00 Tramadol HCl (Ultram) 50 mg Q6H PO Last administered on 02/04/19 02:18; Admin Dose 50 MG; Start 01/27/19 at 08:00 Collagenase (Santyl) 1 applic DAILY TOP Last administered on 02/03/19 09:59; Admin Dose 1 APPLIC; Start 01/28/19 at 09:00 Sodium Hypochlorite (Dakin'S (Dilute )) 1 applic DAILY IRR Last administered on 02/03/19 09:56; Admin Dose 1 APPLIC; Start 01/28/19 at 09:00 Lorazepam (Ativan) 1 mg Q8H PRN PO ANXIETY; Start 01/27/19 at 22:30 Mupirocin (Bactroban) 1 applic BID TOP Last administered on 02/04/19at 10:01; Admin Dose 1 APPLIC; Start 01/28/19 at 21:00 Epoetin Indra (Epogen (Esrd)) 8,000 units TuThSa@17 SC Last administered on 02/02/19 18:29; Admin Dose 8,000 UNITS; Start 01/30/19 at 17:00 Megestrol Acetate (Megace Susp) 400 mg DAILY PO Last administered on 02/04/19at 10:00; Admin Dose 400 MG; Start 01/30/19 at 14:30 Linezolid (Zyvox) 600 mg BID PO Last administered on 02/04/19at 10:00; Admin Dose 600 MG; Start 01/31/19 at 16:00 Amikacin Sulfate (Amikacin Iv Per Pharmacy) AMIKACIN PER PHARMACY NOTE XX ; Start 01/31/19 at 15:30 Amikacin Sulfate 300 mg/Sodium Chloride 101.2 ml @ 102 mls/hr AFTER DIALYSIS IVPB Last administered on 02/03/19at 20:19; Admin Dose 102 MLS/HR; Start 02/01/19 at 16:30 Hydralazine HCl (Apresoline) 75 mg Q8 PO Last administered on 02/04/19at 05:25; Admin Dose 75 MG; Start 02/03/19 at 14:00 Lactulose (Enulose) 20 gm Q6H PRN PO CONSTIPATION; Start 02/04/19 at 11:00 Ondansetron HCl (Zofran Inj) 4 mg Q6H PRN IV NAUSEA AND/OR VOMITING Last administered on 02/04/19at 12:09; Admin Dose 4 MG; Start 02/04/19 at 12:00 ALYX NAVARRO NP Feb 04, 2019 12:31
--- NOTE | 2019-02-04 13:35 | CONS ---
Assessment/Plan Assessment/Plan Hospital Course (Demo Recall) IMPRESSION: 1. Preop evaluation. The patient to undergo EGD whose 2D echo I just read revealing EF lower limits of normal, approximately 50% with no significant contraindicated valvular lesions and negative troponin x1 since admit, patient is okay to proceed at a moderate cardiovascular risk. Now post-op s/p endoscopy and debridement of decub ulcer 2. Congestive heart failure, diastolic acute on chronic. 3. Hypertension. 4. Cardiac arrhythmia, on amiodarone, in sinus rhythm by EKG. 5. Hypothyroidism. 6. Diabetes mellitus. 7. Nausea and vomiting. 8. Generalized weakness. 9. Decubitus ulcers s/p debridement 10. Anemia. 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 Recc: -Tele -Contineu BB and will increase hydralazine further to improve BP -continue statin -Continue abx's and f/u cx data -local wound care Consultation Date/Type/Reason Admit Date/Time Jan 26, 2019 at 17:32 Initial Consult Date 01/27/19 Type of Consult Cardiology Reason for Consultation CHF Requesting Provider: ALEXUS VALENCIA MD Date/Time of Note DATE: 02/04/19 TIME: 13:33 Exam/Review of Systems Vital Signs Vitals Vital Signs Date Temp Pulse Resp B/P (MAP) Pulse Ox O2 O2 Flow FiO2 Time Delivery Rate 02/04/19 70 12:39 02/04/19 Nasal 2.0 12:35 Cannula 02/04/19 98.6 18 160/74 96 11:10 (102) 02/01/19 30 16:25 Intake and Output 02/03/19 02/03/19 02/04/19 1414:59 22:59 06:59 IntakeIntake Total 480 ml 720 ml OutputOutput Total 2500 ml BalanceBalance -2020 ml 720 ml Exam Exam Review of Systems: CONSTITUTIONAL: No fevers, chills. PULMONARY: No sob CARDIOVASCULAR: No chest pain/palpitations GASTROINTESTINAL: No nausea/vomiting. GENITOURINARY: No hematuria/dysuria. MUSCULOSKELETAL: No myagias/arthalgias. PSYCHIATRIC: The patient denies depression. NEUROLOGIC: lethargic Constitutional: alert, oriented Psych: no complaints Head: normocephalic ENMT: mucosa pink and moist Neck: supple, jvd (9 cm water) Respiratory: diminished breath sounds (at bases/B) Cardiovascular: regular rate and rhythm Gastrointestinal: soft, non-tender Musculoskeletal: muscle tone (normal) Extremities: edema (none) Neurological: other (No focal deficits) Labs Result Diagram: 02/04/19 0523 02/04/19 1143 Results 24hrs Laboratory Tests Test 02/03/19 18:12 02/03/19 21:22 02/04/19 02:17 02/04/19 05:23 Bedside Glucose 98 150 177 White Blood Count 9.6 Red Blood Count 3.16 L Hemoglobin 9.2 L Hematocrit 30.0 L Mean Corpuscular 94.9 Volume Mean Corpuscular 29.1 Hemoglobin Mean Corpuscular 30.7 L Hemoglobin Concent Red Cell 15.3 H Distribution Width Platelet Count 236 Mean Platelet Volume 8.8 Immature 2.400 H Granulocytes % Neutrophils % 78.2 H Lymphocytes % 10.0 L Monocytes % 8.2 Eosinophils % 0.9 Basophils % 0.3 Nucleated Red Blood 0.0 Cells % Immature 0.230 H Granulocytes # Neutrophils # 7.5 Lymphocytes # 1.0 Monocytes # 0.8 Eosinophils # 0.1 Basophils # 0.0 Nucleated Red Blood 0.0 Cells # Sodium Level 133 L Potassium Level 4.2 Chloride Level 98 Carbon Dioxide Level 30 Anion Gap 5 Blood Urea Nitrogen 13 # Creatinine 1.84 H Est Glomerular 28 L Filtrat Rate mL/min Glucose Level 150 # Calcium Level 8.4 Test 02/04/19 08:01 02/04/19 11:43 02/04/19 12:10 Bedside Glucose 154 121 Sodium Level 134 L Potassium Level 4.1 Chloride Level 94 L Carbon Dioxide Level 31 Anion Gap 9 Blood Urea Nitrogen 15 Creatinine 1.94 H Est Glomerular 26 L Filtrat Rate mL/min Glucose Level 95 # Calcium Level 8.6 Medications Medications Current Medications Amiodarone HCl (Cordarone) 200 mg DAILY PO Last administered on 02/04/19at 10:01; Admin Dose 200 MG; Start 01/27/19 at 09:00 Ascorbic Acid (Vitamin C) 500 mg DAILY PO Last administered on 02/04/19at 10:00; Admin Dose 500 MG; Start 01/27/19 at 09:00 Atorvastatin Calcium (Lipitor) 20 mg QHS PO Last administered on 02/03/19at 21:23; Admin Dose 20 MG; Start 01/26/19 at 21:00 Bisacodyl (Dulcolax) 10 mg Q24H PRN PO CONSTIPATION; Start 01/26/19 at 20:00 Citalopram Hydrobromide (Celexa) 20 mg DAILY PO Last administered on 02/04/19 10:00; Admin Dose 20 MG; Start 01/27/19 at 09:00 Docusate Sodium (Colace) 100 mg BID PO Last administered on 02/04/19 10:00; Admin Dose 100 MG; Start 01/26/19 at 21:00 Folic Acid (Folic Acid) 1 mg DAILY PO Last administered on 02/04/19 10:00; Admin Dose 1 MG; Start 01/27/19 at 09:00 Levothyroxine Sodium (Synthroid) 100 mcg BEFORE BREAKFAST PO Last administered on 02/04/19 05:18; Admin Dose 100 MCG; Start 01/27/19 at 07:00 Metoclopramide HCl (Reglan) 5 mg BEFORE MEALS PO Last administered on 02/04/19 12:08; Admin Dose 5 MG; Start 01/27/19 at 07:30 Metoprolol Tartrate (Lopressor) 25 mg BID PO Last administered on 02/04/19 10:01; Admin Dose 25 MG; Start 01/26/19 at 21:00 Multivit/Ca Carb/ B Cmplx/FA/Prenat (Wendi-Cathi) 1 tab DAILY PO Last administered on 02/04/19 10:00; Admin Dose 1 TAB; Start 01/27/19 at 09:00 Ondansetron HCl (Zofran Tab) 4 mg Q6H PRN PO NAUSEA AND/OR VOMITING Last administered on 01/30/19 10:43; Admin Dose 4 MG; Start 01/26/19 at 20:00 Pantoprazole (Protonix Tab) 40 mg DAILY PO Last administered on 02/04/19 09:00; Admin Dose 40 MG; Start 01/27/19 at 09:00 Polyethylene Glycol (Miralax) 17 gm DAILY PO Last administered on 02/04/19 10:00; Admin Dose 17 GM; Start 01/27/19 at 09:00 Prednisolone Acetate (Pred-Forte 1%) 1 drop BID RIGHT EYE Last administered on 02/04/19 10:01; Admin Dose 1 DROP; Start 01/26/19 at 21:00 Zinc Sulfate (Zinc Sulfate) 220 mg DAILY PO Last administered on 02/04/19 10:00; Admin Dose 220 MG; Start 01/27/19 at 09:00 Insulin Aspart (Novolog Insulin Pen) NOVOLOG *MODERATE* ALGORITHM WITH MEALS BEDTIME SC Last administered on 02/04/19 08:05; Admin Dose 2 UNIT; Start 01/26/19 at 21:00 Heparin Sodium (Porcine) (Heparin (5000 Units/1ml)) 5,000 unit BID SC Last administered on 02/04/19 10:23; Admin Dose 5,000 UNIT; Start 01/26/19 at 21:00 Morphine Sulfate (morphine) 2 mg Q4H PRN IV SEVERE PAIN LEVEL 7-10 Last administered on 02/03/19 14:48; Admin Dose 2 MG; Start 01/26/19 at 20:30 Miscellaneous Information 1 ea NOTE XX ; Start 01/26/19 at 23:45 Glucose (Glutose) 15 gm Q15M PRN PO DECREASED GLUCOSE; Start 01/26/19 at 23:45 Glucose (Glutose) 22.5 gm Q15M PRN PO DECREASED GLUCOSE; Start 01/26/19 at 23:45 Dextrose (D50w Syringe) 25 ml Q15M PRN IV DECREASED GLUCOSE Last administered on 01/28/19 07:50; Admin Dose 25 ML; Start 01/26/19 at 23:45 Dextrose (D50w Syringe) 50 ml Q15M PRN IV DECREASED GLUCOSE; Start 01/26/19 at 23:45 Glucagon (Glucagen) 1 mg Q15M PRN IM DECREASED GLUCOSE; Start 01/26/19 at 23:45 Glucose (Glutose) 15 gm Q15M PRN BUCCAL DECREASED GLUCOSE; Start 01/26/19 at 23:45 Alteplase, Recombinant (Cathflo (Activase)) 2 mg MAY REPEAT X1 PRN CATHETER IF CATHETER REMAINS OCCULUDED Last administered on 02/02/19 23:09; Admin Dose 2 MG; Start 01/27/19 at 07:00 Tramadol HCl (Ultram) 50 mg Q6H PO Last administered on 02/04/19 02:18; Admin Dose 50 MG; Start 01/27/19 at 08:00 Collagenase (Santyl) 1 applic DAILY TOP Last administered on 02/03/19 09:59; Admin Dose 1 APPLIC; Start 01/28/19 at 09:00 Sodium Hypochlorite (Dakin'S (Dilute )) 1 applic DAILY IRR Last administered on 02/03/19 09:56; Admin Dose 1 APPLIC; Start 01/28/19 at 09:00 Lorazepam (Ativan) 1 mg Q8H PRN PO ANXIETY; Start 01/27/19 at 22:30 Mupirocin (Bactroban) 1 applic BID TOP Last administered on 02/04/19 10:01; Admin Dose 1 APPLIC; Start 01/28/19 at 21:00 Epoetin Indra (Epogen (Esrd)) 8,000 units TuThSa@17 SC Last administered on 02/02/19 18:29; Admin Dose 8,000 UNITS; Start 01/30/19 at 17:00 Megestrol Acetate (Megace Susp) 400 mg DAILY PO Last administered on 02/04/19 10:00; Admin Dose 400 MG; Start 01/30/19 at 14:30 Linezolid (Zyvox) 600 mg BID PO Last administered on 02/04/19 10:00; Admin Dose 600 MG; Start 01/31/19 at 16:00 Amikacin Sulfate (Amikacin Iv Per Pharmacy) AMIKACIN PER PHARMACY NOTE XX ; Start 01/31/19 at 15:30 Amikacin Sulfate 300 mg/Sodium Chloride 101.2 ml @ 102 mls/hr AFTER DIALYSIS IVPB Last administered on 02/03/19 20:19; Admin Dose 102 MLS/HR; Start 02/01/19 at 16:30 Hydralazine HCl (Apresoline) 75 mg Q8 PO Last administered on 02/04/19 13:26; Admin Dose 75 MG; Start 02/03/19 at 14:00 Lactulose (Enulose) 20 gm Q6H PRN PO CONSTIPATION; Start 02/04/19 at 11:00 Ondansetron HCl (Zofran Inj) 4 mg Q6H PRN IV NAUSEA AND/OR VOMITING Last administered on 02/04/19 12:09; Admin Dose 4 MG; Start 02/04/19 at 12:00 ALIREZA LEE 28, 2019 13:35
--- NOTE | 2019-02-04 14:02 | PN ---
Date/Time of Note Date/Time of Note DATE: 02/04/19 TIME: 14:00 Assessment/Plan Lines/Catheters IV Catheter Type (from [facility]): PICC Line [place] in Place (from [facility]): No Assessment/Plan Chief Complaint/Hosp Course 1. Sacral and bilateral ischial wounds: wnd cx noted; status post sacrum and right ischial debridement 01/29/19 -Further debridement as needed -Continue local care> can follow with Dr. Almanza as outpatient in wound clinic. -frequent turning and off-loading -low air loss mattress -vitamin c -short term zinc -optimize nutrition -DC planning okay from surgical standpoint 2. Abdominal pain and generalized weakness: Status post EGD: Gastritis -further w/u per med team -PPI 3. ESRD -limit nephrotoxins -HD per renal -renally dose meds 4. Anemia: -monitor and transfuse as needed 5. Diabetes with episodes of hypoglycemia; no hypoglycemia episodes-sugar control much improved -glucose management 6. Hypothyroidism -med mgt 7. Pleural effusions: -Pulmonary consult -fluid management Thank you. Patient seen and examined in collaboration with Dr. Simón Almanza. Subjective 24 Hr Interval Summary No fevers, chills, sob, congested cough, cp, palpitations, hoffman, dizziness, nausea, vomiting, diarrhea, dysuria. No hypoglycemic episodes. Exam/Review of Systems Vital Signs Vitals Vital Signs Date Temp Pulse Resp B/P (MAP) Pulse Ox O2 O2 Flow FiO2 Time Delivery Rate 02/04/19 70 12:39 02/04/19 Nasal 2.0 12:35 Cannula 02/04/19 98.6 18 160/74 96 11:10 (102) 02/01/19 30 16:25 Intake and Output 02/03/19 02/03/19 02/04/19 1515:00 23:00 07:00 IntakeIntake Total 480 ml 720 ml OutputOutput Total 2500 ml BalanceBalance -2020 ml 720 ml Exam Free Text/Dictation Constitutional: alert, oriented, obese Psych: anxiety Head: normocephalic, atraumatic Eyes: nl conjunctiva, EOMI, nl lids, nl sclera ENMT: nl external ears & nose, nl lips & teeth, mucosa pink and moist Neck: supple, non-tender; No jvd Respiratory: normal air movement; No congested cough, No labored breathing Cardiovascular: regular rate and rhythm, nl pulses; No edema Gastrointestinal: soft, non-tender, distended Genitourinary - Female: nl external genitalia Musculoskeletal: nl extremities to inspection, nl gait and stance Extremities: normal pulses Neurological: nl mental status, nl speech, nl strength Skin: other (sacral: Packed, improved odor; right ischium: Packed, improved odor; left ischium: unstageable); No rash or lesions Results Result Diagram: 02/04/19 0523 02/04/19 1143 ARSLAN COATES NP Feb 04, 2019 14:02
--- NOTE | 2019-02-04 16:09 | PN ---
Date/Time of Note Date/Time of Note DATE: 02/04/19 TIME: 16:08 Assessment/Plan VTE Prophylaxis [place] [facility] [place] [facility]: 10 [place]CD applied [place] [facility] No SCD contraindicated: patient refusal Pharmacological prophylaxis: heparin Lines/Catheters IV Catheter Type (from [facility]): PICC Line Central line still needed: Yes Urinary Cath still in place: No Assessment/Plan Hospital Course Patient is lethargic but easily arousable, blood sugar is better controlled, plan for a colonoscopy tomorrow. Assessment/Plan -Sacral and bilateral ischial infected wounds. Status post sacrum and right ischial debridement 01/29/19. Dr. Almanza is following in general surgery consultation. Continue antibiotics per ID. Dr. Guevara is following in infection disease consultation. Patient is currently on Zyvox and amikacin. -Left lower lobe infiltrate -Abdominal pain. Status post EGD with notion of gastritis. Continue PPI. -Moderate bilateral pleural effusion slightly improved per chest x-ray from 02/03/19. -Hemodialysis dependent end-stage renal disease. Continue on hemodialysis. Dr. Mcdaniel is following from nephrology standpoint. -Diabetes mellitus type 2. Continue Levemir and NovoLog per mild algorithm sliding scale. -Hypothyroidism, continue levothyroxine -Hypertension. -Hyperlipidemia, continue statin -Anemia -MRSA of nares colonization. Contact isolation. -Right eye blindness. Further recommendations based on clinical course. Plan of care discussed with Dr. Mandel. Result Diagram: 02/04/19 0523 02/04/19 1143 Results 24hrs Laboratory Tests Test 02/03/19 18:12 02/03/19 21:22 02/04/19 02:17 02/04/19 05:23 Bedside Glucose 98 150 177 White Blood Count 9.6 Red Blood Count 3.16 L Hemoglobin 9.2 L Hematocrit 30.0 L Mean Corpuscular 94.9 Volume Mean Corpuscular 29.1 Hemoglobin Mean Corpuscular 30.7 L Hemoglobin Concent Red Cell 15.3 H Distribution Width Platelet Count 236 Mean Platelet Volume 8.8 Immature 2.400 H Granulocytes % Neutrophils % 78.2 H Lymphocytes % 10.0 L Monocytes % 8.2 Eosinophils % 0.9 Basophils % 0.3 Nucleated Red Blood 0.0 Cells % Immature 0.230 H Granulocytes # Neutrophils # 7.5 Lymphocytes # 1.0 Monocytes # 0.8 Eosinophils # 0.1 Basophils # 0.0 Nucleated Red Blood 0.0 Cells # Sodium Level 133 L Potassium Level 4.2 Chloride Level 98 Carbon Dioxide Level 30 Anion Gap 5 Blood Urea Nitrogen 13 # Creatinine 1.84 H Est Glomerular 28 L Filtrat Rate mL/min Glucose Level 150 # Calcium Level 8.4 Test 02/04/19 08:01 02/04/19 11:43 02/04/19 12:10 Bedside Glucose 154 121 Sodium Level 134 L Potassium Level 4.1 Chloride Level 94 L Carbon Dioxide Level 31 Anion Gap 9 Blood Urea Nitrogen 15 Creatinine 1.94 H Est Glomerular 26 L Filtrat Rate mL/min Glucose Level 95 # Calcium Level 8.6 Exam/Review of Systems Exam Vitals Vital Signs Date Temp Pulse Resp B/P (MAP) Pulse Ox O2 O2 Flow FiO2 Time Delivery Rate 02/04/19 97.9 72 18 155/69 96 Nasal 15:00 (97) Cannula 02/04/19 2.0 14:12 02/01/19 30 16:25 Intake and Output 02/03/19 02/03/19 02/04/19 1515:00 23:00 07:00 IntakeIntake Total 480 ml 720 ml OutputOutput Total 2500 ml BalanceBalance -2020 ml 720 ml Exam Constitutional: alert, oriented Eyes: other (Right eye blindness) Respiratory: clear to auscultation Cardiovascular: regular rate and rhythm Gastrointestinal: soft, non-tender Musculoskeletal: nl extremities to inspection Extremities: normal pulses, edema, other (Right upper extremity AV fistula) Neurological: nl mental status Results Results 24hrs Laboratory Tests Test 02/03/19 18:12 02/03/19 21:22 02/04/19 02:17 02/04/19 05:23 Bedside Glucose 98 150 177 White Blood Count 9.6 Red Blood Count 3.16 L Hemoglobin 9.2 L Hematocrit 30.0 L Mean Corpuscular 94.9 Volume Mean Corpuscular 29.1 Hemoglobin Mean Corpuscular 30.7 L Hemoglobin Concent Red Cell 15.3 H Distribution Width Platelet Count 236 Mean Platelet Volume 8.8 Immature 2.400 H Granulocytes % Neutrophils % 78.2 H Lymphocytes % 10.0 L Monocytes % 8.2 Eosinophils % 0.9 Basophils % 0.3 Nucleated Red Blood 0.0 Cells % Immature 0.230 H Granulocytes # Neutrophils # 7.5 Lymphocytes # 1.0 Monocytes # 0.8 Eosinophils # 0.1 Basophils # 0.0 Nucleated Red Blood 0.0 Cells # Sodium Level 133 L Potassium Level 4.2 Chloride Level 98 Carbon Dioxide Level 30 Anion Gap 5 Blood Urea Nitrogen 13 # Creatinine 1.84 H Est Glomerular 28 L Filtrat Rate mL/min Glucose Level 150 # Calcium Level 8.4 Test 02/04/19 08:01 02/04/19 11:43 02/04/19 12:10 Bedside Glucose 154 121 Sodium Level 134 L Potassium Level 4.1 Chloride Level 94 L Carbon Dioxide Level 31 Anion Gap 9 Blood Urea Nitrogen 15 Creatinine 1.94 H Est Glomerular 26 L Filtrat Rate mL/min Glucose Level 95 # Calcium Level 8.6 Medications Medication Current Medications Amiodarone HCl (Cordarone) 200 mg DAILY PO Last administered on 02/04/19 10:01; Admin Dose 200 MG; Start 01/27/19 at 09:00 Ascorbic Acid (Vitamin C) 500 mg DAILY PO Last administered on 02/04/19 10:00; Admin Dose 500 MG; Start 01/27/19 at 09:00 Atorvastatin Calcium (Lipitor) 20 mg QHS PO Last administered on 02/03/19 21:23; Admin Dose 20 MG; Start 01/26/19 at 21:00 Bisacodyl (Dulcolax) 10 mg Q24H PRN PO CONSTIPATION; Start 01/26/19 at 20:00 Citalopram Hydrobromide (Celexa) 20 mg DAILY PO Last administered on 02/04/19 10:00; Admin Dose 20 MG; Start 01/27/19 at 09:00 Docusate Sodium (Colace) 100 mg BID PO Last administered on 02/04/19 10:00; Admin Dose 100 MG; Start 01/26/19 at 21:00 Folic Acid (Folic Acid) 1 mg DAILY PO Last administered on 02/04/19 10:00; Admin Dose 1 MG; Start 01/27/19 at 09:00 Levothyroxine Sodium (Synthroid) 100 mcg BEFORE BREAKFAST PO Last administered on 02/04/19 05:18; Admin Dose 100 MCG; Start 01/27/19 at 07:00 Metoclopramide HCl (Reglan) 5 mg BEFORE MEALS PO Last administered on 02/04/19 12:08; Admin Dose 5 MG; Start 01/27/19 at 07:30 Metoprolol Tartrate (Lopressor) 25 mg BID PO Last administered on 02/04/19 10:01; Admin Dose 25 MG; Start 01/26/19 at 21:00 Multivit/Ca Carb/ B Cmplx/FA/Prenat (Wendi-Cathi) 1 tab DAILY PO Last administered on 02/04/19 10:00; Admin Dose 1 TAB; Start 01/27/19 at 09:00 Ondansetron HCl (Zofran Tab) 4 mg Q6H PRN PO NAUSEA AND/OR VOMITING Last administered on 01/30/19 10:43; Admin Dose 4 MG; Start 01/26/19 at 20:00 Pantoprazole (Protonix Tab) 40 mg DAILY PO Last administered on 02/04/19 09:00; Admin Dose 40 MG; Start 01/27/19 at 09:00 Polyethylene Glycol (Miralax) 17 gm DAILY PO Last administered on 02/04/19 10:00; Admin Dose 17 GM; Start 01/27/19 at 09:00 Prednisolone Acetate (Pred-Forte 1%) 1 drop BID RIGHT EYE Last administered on 02/04/19 10:01; Admin Dose 1 DROP; Start 01/26/19 at 21:00 Zinc Sulfate (Zinc Sulfate) 220 mg DAILY PO Last administered on 02/04/19 10:00; Admin Dose 220 MG; Start 01/27/19 at 09:00 Insulin Aspart (Novolog Insulin Pen) NOVOLOG *MODERATE* ALGORITHM WITH MEALS BEDTIME SC Last administered on 02/04/19 08:05; Admin Dose 2 UNIT; Start 01/26/19 at 21:00 Heparin Sodium (Porcine) (Heparin (5000 Units/1ml)) 5,000 unit BID SC Last administered on 02/04/19 10:23; Admin Dose 5,000 UNIT; Start 01/26/19 at 21:00 Morphine Sulfate (morphine) 2 mg Q4H PRN IV SEVERE PAIN LEVEL 7-10 Last administered on 02/03/19 14:48; Admin Dose 2 MG; Start 01/26/19 at 20:30 Miscellaneous Information 1 ea NOTE XX ; Start 01/26/19 at 23:45 Glucose (Glutose) 15 gm Q15M PRN PO DECREASED GLUCOSE; Start 01/26/19 at 23:45 Glucose (Glutose) 22.5 gm Q15M PRN PO DECREASED GLUCOSE; Start 01/26/19 at 23:45 Dextrose (D50w Syringe) 25 ml Q15M PRN IV DECREASED GLUCOSE Last administered on 01/28/19at 07:50; Admin Dose 25 ML; Start 01/26/19 at 23:45 Dextrose (D50w Syringe) 50 ml Q15M PRN IV DECREASED GLUCOSE; Start 01/26/19 at 23:45 Glucagon (Glucagen) 1 mg Q15M PRN IM DECREASED GLUCOSE; Start 01/26/19 at 23:45 Glucose (Glutose) 15 gm Q15M PRN BUCCAL DECREASED GLUCOSE; Start 01/26/19 at 23:45 Alteplase, Recombinant (Cathflo (Activase)) 2 mg MAY REPEAT X1 PRN CATHETER IF CATHETER REMAINS OCCULUDED Last administered on 02/02/19at 23:09; Admin Dose 2 MG; Start 01/27/19 at 07:00 Tramadol HCl (Ultram) 50 mg Q6H PO Last administered on 02/04/19 02:18; Admin Dose 50 MG; Start 01/27/19 at 08:00 Collagenase (Santyl) 1 applic DAILY TOP Last administered on 02/03/19 09:59; Admin Dose 1 APPLIC; Start 01/28/19 at 09:00 Sodium Hypochlorite (Dakin'S (Dilute )) 1 applic DAILY IRR Last administered on 02/03/19 09:56; Admin Dose 1 APPLIC; Start 01/28/19 at 09:00 Lorazepam (Ativan) 1 mg Q8H PRN PO ANXIETY; Start 01/27/19 at 22:30 Mupirocin (Bactroban) 1 applic BID TOP Last administered on 02/04/19 10:01; Admin Dose 1 APPLIC; Start 01/28/19 at 21:00 Epoetin Indra (Epogen (Esrd)) 8,000 units TuThSa@17 SC Last administered on 02/02/19 18:29; Admin Dose 8,000 UNITS; Start 01/30/19 at 17:00 Megestrol Acetate (Megace Susp) 400 mg DAILY PO Last administered on 02/04/19 10:00; Admin Dose 400 MG; Start 01/30/19 at 14:30 Linezolid (Zyvox) 600 mg BID PO Last administered on 02/04/19at 10:00; Admin Dose 600 MG; Start 01/31/19 at 16:00 Amikacin Sulfate (Amikacin Iv Per Pharmacy) AMIKACIN PER PHARMACY NOTE XX ; Start 01/31/19 at 15:30 Amikacin Sulfate 300 mg/Sodium Chloride 101.2 ml @ 102 mls/hr AFTER DIALYSIS IVPB Last administered on 02/03/19at 20:19; Admin Dose 102 MLS/HR; Start 02/01/19 at 16:30 Lactulose (Enulose) 20 gm Q6H PRN PO CONSTIPATION; Start 02/04/19 at 11:00 Ondansetron HCl (Zofran Inj) 4 mg Q6H PRN IV NAUSEA AND/OR VOMITING Last administered on 02/04/19at 12:09; Admin Dose 4 MG; Start 02/04/19 at 12:00 Hydralazine HCl (Apresoline) 100 mg Q8 PO ; Start 02/04/19 at 14:00 SIN IZAGUIRRE Feb 04, 2019 16:09
[2019-02-04] MEDS: EPOETIN 4000 UNITS/1 ML INJ (ESRD) SC SCH (17:26)
[2019-02-04] MEDS: ATORVASTATIN 20 MG TAB PO SCH (22:25)
[2019-02-05] VITALS (11 sets, daily range): BP systolic 112–178; BP diastolic 51–77; PULSE 63–76; RESP 17–20
[2019-02-05] MEDS: traMADol 50 MG TAB PO SCH ×5 (02:00→21:57)
[2019-02-05] MEDS: morphine 2 MG INJ IV PRN (02:25)
[2019-02-05] MEDS: LEVOTHYROXINE 100 MCG TAB PO SCH (06:06)
--- NOTE | 2019-02-05 06:23 | CONS ---
DATE OF ADMISSION: 01/26/2019 DATE OF CONSULTATION: 01/26/2019 REASON FOR COLONOSCOPY: Rule out lower GI causes of anemia. PHYSICAL EXAMINATION: Exam is unremarkable. PLAN: At this time, recommend a colonoscopy. I discussed with the patient. Patient agreed. Dictated By: GEORGES BERGERON MD NC/NTS Conf#: [id number] DID#: [id number] CC: ALEXUS VALENCIA MD;*EndCC*
--- NOTE | 2019-02-05 06:24 | CONS ---
DATE OF ADMISSION: 01/26/2019 DATE OF CONSULTATION: 02/04/2019 Patient admitted with severe anemia. Upper endoscopy was not significant. Because of the persistent anemia, lower GI causes should be ruled out. She has a chronic renal failure, persistent nausea. PHYSICAL EXAMINATION: GENERAL: She is alert, she is not in distress. VITAL SIGNS: Afebrile, blood pressure 147/67. CARDIOVASCULAR: Normal heart sounds. RESPIRATORY: Normal breath sounds. ABDOMEN: Shows soft abdomen with no palpable masses. Dictated By: GEORGES LEONARDO/VICTORINA Conf#: [id number] DID#: [id number]
[2019-02-05] MEDS: METOCLOPRAMIDE 5 MG TAB PO SCH ×3 (07:30→17:36)
[2019-02-05] MEDS: INSULIN ASPART [NOVOLOG] 3 ML PEN SC SCH ×4 (08:00→21:00)
[2019-02-05] MEDS: MEGESTROL (40 MG/ML) 10ML CUP PO SCH (08:46)
[2019-02-05] MEDS: POLYETHYLENE GLYCOL 17 GM PACKET PO SCH (08:47)
[2019-02-05] MEDS: FOLIC ACID 1 MG TAB PO SCH (08:47)
[2019-02-05] MEDS: ASCORBIC ACID 500 MG TAB PO SCH (08:47)
[2019-02-05] MEDS: ZYVOX 600 MG TAB PO SCH ×2 (08:47→21:53)
[2019-02-05] MEDS: ZINC SULFATE 220 MG CAP PO SCH (08:47)
[2019-02-05] MEDS: PANTOPRAZOLE (EC) 40 MG TAB PO SCH (08:48)
[2019-02-05] MEDS: DOCUSATE SODIUM 100 MG CAP PO SCH ×2 (08:48→21:53)
[2019-02-05] MEDS: CITALOPRAM 20 MG TAB PO SCH (08:49)
[2019-02-05] MEDS: AMIODARONE 200 MG TAB PO SCH (08:49)
[2019-02-05] MEDS: METOPROLOL 25 MG TAB PO SCH ×2 (08:50→21:58)
[2019-02-05] MEDS: HEPARIN 5,000 UNIT/1 ML VIAL SC SCH ×2 (09:00→22:09)
--- NOTE | 2019-02-05 09:39 | PN ---
Date/Time of Note Date/Time of Note DATE: 02/05/19 TIME: 09:36 Assessment/Plan Lines/Catheters IV Catheter Type (from Nrs): PICC Line [place] in Place (from Nrs): No Assessment/Plan Chief Complaint/Hosp Course 1. Sacral and bilateral ischial wounds: wnd cx noted; status post sacrum and right ischial debridement 01/29/19 -Further debridement as needed -Continue local care> can follow with Dr. Almanza as outpatient in wound clinic. -frequent turning and off-loading -low air loss mattress -vitamin c -short term zinc -optimize nutrition 2. Abdominal pain and generalized weakness: Status post EGD: Gastritis -further w/u per med team -PPI 3. ESRD -limit nephrotoxins -HD per renal -renally dose meds 4. Anemia: Colonoscopy pending -monitor and transfuse as needed 5. Diabetes with episodes of hypoglycemia; no hypoglycemia episodes-sugar control much improved -glucose management 6. Hypothyroidism -med mgt 7. Pleural effusions: -Pulmonary consult -fluid management Thank you. Patient seen and examined in collaboration with Dr. Simón Almanza. Subjective 24 Hr Interval Summary Intermittent back pain. A colonoscopy today. H&H stable. No fevers, chills, sob, congested cough, cp, palpitations, hoffman, dizziness, nausea, vomiting, diarrhea, dysuria. Exam/Review of Systems Vital Signs Vitals Vital Signs Date Temp Pulse Resp B/P (MAP) Pulse Ox O2 O2 Flow FiO2 Time Delivery Rate 02/05/19 68 08:13 02/05/19 98.2 18 143/66 94 07:38 (91) 02/05/19 2.0 06:41 02/04/19 Nasal 20:00 Cannula 02/01/19 30 16:25 Intake and Output 02/04/19 02/04/19 02/05/19 1515:00 23:00 07:00 IntakeIntake Total 300 ml 300 ml BalanceBalance 300 ml 300 ml Exam Free Text/Dictation Constitutional: alert, oriented, obese Psych: anxiety (minimal) Head: normocephalic, atraumatic Eyes: nl conjunctiva, EOMI, nl lids, nl sclera ENMT: nl external ears & nose, nl lips & teeth, mucosa pink and moist Neck: supple, non-tender; No jvd Respiratory: normal air movement; No congested cough, No labored breathing Cardiovascular: regular rate and rhythm, nl pulses; No edema Gastrointestinal: soft, non-tender, distended Genitourinary - Female: nl external genitalia Musculoskeletal: nl extremities to inspection, nl gait and stance Extremities: normal pulses Neurological: nl mental status, nl speech, nl strength Skin: other (sacral: Packed, no odor, minimal periwound erythema; right ischium: Packed, improved odor; left ischium: unstageable); No rash or lesions Results Result Diagram: 02/05/19 0609 02/05/19 0609 ARSLAN COATES NP Feb 05, 2019 09:39
[2019-02-05] MEDS: BALSAM PERU/CASTOR OIL 60 GM TUBE TOP SCH ×2 (09:40→21:52)
[2019-02-05] MEDS: SODIUM HYPOCHLORITE (1/40) 1 LITER BTL IRR SCH (09:40)
--- NOTE | 2019-02-05 10:04 | PREAC ---
Date/Time of Note Date/Time of Note DATE: 02/05/19 TIME: 10:03 Anesthesia Eval and Record Evaluation Time Pre-Procedure Interview DATE: 02/05/19 TIME: 10:03 Age 63 Sex female NPO: 8 hrs Preoperative diagnosis anemia Planned procedure colonoscopy Past Medical History Past Medical History: Includes Cardio: HTN Renal: ESRD on dialysis Heme: Anemia Surgery & Anesthesia Issues No known issue Meds Anticoagulation: No Beta Jordyn within 24 hr: No Reason Beta Jordyn not given: Pt. not on B-Jordyn Reported Medications Insulin Lispro (Humalog Kwikpen U-100) 100 Unit/1 Ml Insuln.pen, 0 SQ SLIDING SCALE, EA IF BS 151-200=1 UNIT,201-250=2 UNITS,251-300=3 UNITS,301-350=4 UNITS,351-400=5 UNITS, IF >400=6 UNITS AND CALL 01/26/19 Dariel Gissell/Polo Oil (Venelex Ointment) 60 Gm Oint..gm., 1 APPLIC TOP NEEDED, #1 TUB 01/26/19 Multivit/Ca Carb/B Cmplx/Fa* (Wendi-Cathi*) 1 Tab Tab, 1 TAB PO DAILY, TAB 01/26/19 Metoclopramide* (Reglan*) 5 Mg Tablet, 5 MG PO BEFORE MEALS, TAB 01/26/19 Protein Supplement (Promod) 946 Ml Liquid, 30 ML PO DAILY 01/26/19 Lactose-Free Food (Nutritional Supplement) 237 Ml Liquid, 1 PO BID 01/26/19 Morphine Sulfate* (Morphine* Liq) 10 Mg/0.5 Ml Disp.syrin, 6 MG SL Q4H PRN for PAIN 7-10/10, ML 01/26/19 Ipratropium-Albuterol (Ipratropium-Albuterol) 0.5-3 Mg/3 Ml Ampul.neb, 3 ML INHALATION TID, #30 VIAL 01/26/19 Heparin Sod,Porcine/0.9 % NaCl (Heparin 5,000 Unit/5 ml-Ns) 5,000 Unit/5 Ml Syringe, 5000 UNIT IV Q8H 01/26/19 Ondansetron Hcl* (Zofran*) 4 Mg Tablet, 4 MG PO Q6H PRN for NAUSEA AND OR VOMITING, TAB 01/26/19 Citalopram Hydrobromide* (Citalopram Hydrobromide*) 20 Mg Tablet, 20 MG PO DAILY, #30 TAB 01/26/19 Bisacodyl* (Bisacodyl*) 5 Mg Tablet.dr, 10 MG PO Q24H PRN for CONSTIPATION, TAB 01/26/19 Diphenhydramine Hcl* (Diphenhydramine Hcl*) 25 Mg Capsule, 25 MG PO Q6 PRN for ITCHING, CAP 01/26/19 Polyethylene Glycol* (Polyethylene Glycol*) 17 Gm Powd.pack, 17 GM PO DAILY, #30 PACKET 11/18/18 Pantoprazole* (Pantoprazole*) 40 Mg Tablet.dr, 40 MG PO DAILY, TAB 11/18/18 Metoprolol Tartrate* (Lopressor*) 25 Mg Tablet, 25 MG PO BID, #60 TAB HOLD IF SBP<110 OR HR<60 11/18/18 Losartan Potassium* (Losartan Potassium*) 50 Mg Tablet, 50 MG PO BID, TAB HOLD IFSBP<110 OR HR<60 11/18/18 Levothyroxine Sodium* (Levothyroxine Sodium*) 100 Mcg Tablet, 100 MCG PO BEFORE BREAKFAST, #30 TAB 11/18/18 Insulin Detemir (Levemir) 100 Unit/1 Ml Vial, 6 UNITS SQ QHS 11/18/18 Folic Acid* (Folic Acid*) 1 Mg Tablet, 1 MG PO DAILY, TAB 11/18/18 Zinc Sulfate* (Zinc Sulfate*) 220 Mg Cap, 220 MG PO DAILY, CAP 11/18/18 Ascorbic Acid (Vitamin C) 500 Mg Tab, 500 MG PO DAILY, TAB 11/18/18 Acetaminophen* (Acetaminophen*) 325 Mg Tablet, 325 MG PO Q4H PRN for PAIN AND OR ELEVATED TEMP, #30 TAB FOR MILD PAIN 1-01/1711/18/18 Trazodone Hcl* (Trazodone Hcl*) 50 Mg Tablet, 50 MG PO QHS, #30 TAB 11/18/18 Tramadol HCl (Tramadol HCl) 50 Mg Tablet, 50 MG PO Q6H PRN for PAIN, #120 TAB 11/18/18 Prednisolone Acetate* (Pred Forte*) 5 Ml Susp, 1 DROP RIGHT EYE BID, EA 11/18/18 Docusate Sodium* (Colace*) 100 Mg Capsule, 100 MG PO BID, #30 CAP 11/18/18 Atorvastatin Calcium* (Atorvastatin Calcium*) 20 Mg Tablet, 20 MG PO QHS, #30 TAB 11/18/18 Amlodipine Besylate* (Norvasc*) 5 Mg Tablet, 5 MG PO QHS, TAB HOLD IF SBP<110 OR HR<60 11/18/18 Amiodarone Hcl* (Amiodarone Hcl*) 200 Mg Tablet, 200 MG PO DAILY, #30 TAB 11/18/18 Current Medications Amiodarone HCl (Cordarone) 200 mg DAILY PO Last administered on 02/05/19 08:49; Admin Dose 200 MG; Start 01/27/19 at 09:00 Ascorbic Acid (Vitamin C) 500 mg DAILY PO Last administered on 02/05/19 08:47; Admin Dose 500 MG; Start 01/27/19 at 09:00 Atorvastatin Calcium (Lipitor) 20 mg QHS PO Last administered on 02/04/19 22:25; Admin Dose 20 MG; Start 01/26/19 at 21:00 Bisacodyl (Dulcolax) 10 mg Q24H PRN PO CONSTIPATION; Start 01/26/19 at 20:00 Citalopram Hydrobromide (Celexa) 20 mg DAILY PO Last administered on 02/05/19 08:49; Admin Dose 20 MG; Start 01/27/19 at 09:00 Docusate Sodium (Colace) 100 mg BID PO Last administered on 02/05/19 08:48; Admin Dose 100 MG; Start 01/26/19 at 21:00 Folic Acid (Folic Acid) 1 mg DAILY PO Last administered on 02/05/19 08:47; Admin Dose 1 MG; Start 01/27/19 at 09:00 Levothyroxine Sodium (Synthroid) 100 mcg BEFORE BREAKFAST PO Last administered on 02/05/19 06:06; Admin Dose 100 MCG; Start 01/27/19 at 07:00 Metoclopramide HCl (Reglan) 5 mg BEFORE MEALS PO Last administered on 02/04/19 17:25; Admin Dose 5 MG; Start 01/27/19 at 07:30 Metoprolol Tartrate (Lopressor) 25 mg BID PO Last administered on 02/05/19 08:50; Admin Dose 25 MG; Start 01/26/19 at 21:00 Multivit/Ca Carb/ B Cmplx/FA/Prenat (Wendi-Cathi) 1 tab DAILY PO Last administered on 02/04/19 10:00; Admin Dose 1 TAB; Start 01/27/19 at 09:00 Ondansetron HCl (Zofran Tab) 4 mg Q6H PRN PO NAUSEA AND/OR VOMITING Last administered on 01/30/19 10:43; Admin Dose 4 MG; Start 01/26/19 at 20:00 Pantoprazole (Protonix Tab) 40 mg DAILY PO Last administered on 02/05/19 08:48; Admin Dose 40 MG; Start 01/27/19 at 09:00 Polyethylene Glycol (Miralax) 17 gm DAILY PO Last administered on 02/05/19 0 8:47; Admin Dose 17 GM; Start 01/27/19 at 09:00 Prednisolone Acetate (Pred-Forte 1%) 1 drop BID RIGHT EYE Last administered on 02/04/19 22:23; Admin Dose 1 DROP; Start 01/26/19 at 21:00 Zinc Sulfate (Zinc Sulfate) 220 mg DAILY PO Last administered on 02/05/19 08:47; Admin Dose 220 MG; Start 01/27/19 at 09:00 Insulin Aspart (Novolog Insulin Pen) NOVOLOG *MODERATE* ALGORITHM WITH MEALS BEDTIME SC Last administered on 02/04/19 17:37; Admin Dose 2 UNIT; Start 01/26/19 at 21:00 Heparin Sodium (Porcine) (Heparin (5000 Units/1ml)) 5,000 unit BID SC Last administered on 02/04/19 22:55; Admin Dose 5,000 UNIT; Start 01/26/19 at 21:00 Morphine Sulfate (morphine) 2 mg Q4H PRN IV SEVERE PAIN LEVEL 7-10 Last administered on 02/05/19 02:25; Admin Dose 2 MG; Start 01/26/19 at 20:30 Miscellaneous Information 1 ea NOTE XX ; Start 01/26/19 at 23:45 Glucose (Glutose) 15 gm Q15M PRN PO DECREASED GLUCOSE; Start 01/26/19 at 23:45 Glucose (Glutose) 22.5 gm Q15M PRN PO DECREASED GLUCOSE; Start 01/26/19 at 23:45 Dextrose (D50w Syringe) 25 ml Q15M PRN IV DECREASED GLUCOSE Last administered on 01/28/19 07:50; Admin Dose 25 ML; Start 01/26/19 at 23:45 Dextrose (D50w Syringe) 50 ml Q15M PRN IV DECREASED GLUCOSE; Start 01/26/19 at 23:45 Glucagon (Glucagen) 1 mg Q15M PRN IM DECREASED GLUCOSE; Start 01/26/19 at 23:45 Glucose (Glutose) 15 gm Q15M PRN BUCCAL DECREASED GLUCOSE; Start 01/26/19 at 23:45 Alteplase, Recombinant (Cathflo (Activase)) 2 mg MAY REPEAT X1 PRN CATHETER IF CATHETER REMAINS OCCULUDED Last administered on 02/02/19 23:09; Admin Dose 2 MG; Start 01/27/19 at 07:00 Tramadol HCl (Ultram) 50 mg Q6H PO Last administered on 02/05/19 08:08; Admin Dose 50 MG; Start 01/27/19 at 08:00 Collagenase (Santyl) 1 applic DAILY TOP Last administered on 02/03/19 09:59; Admin Dose 1 APPLIC; Start 01/28/19 at 09:00 Sodium Hypochlorite (Dakin'S (Dilute )) 1 applic DAILY IRR Last administered on 02/05/19 09:40; Admin Dose 1 APPLIC; Start 01/28/19 at 09:00 Lorazepam (Ativan) 1 mg Q8H PRN PO ANXIETY; Start 01/27/19 at 22:30 Mupirocin (Bactroban) 1 applic BID TOP Last administered on 02/04/19 22:23; Admin Dose 1 APPLIC; Start 01/28/19 at 21:00 Epoetin Indra (Epogen (Esrd)) 8,000 units TuThSa@17 SC Last administered on 02/04/19 17:26; Admin Dose 8,000 UNITS; Start 01/30/19 at 17:00 Megestrol Acetate (Megace Susp) 400 mg DAILY PO Last administered on 02/05/19 08:46; Admin Dose 400 MG; Start 01/30/19 at 14:30 Linezolid (Zyvox) 600 mg BID PO Last administered on 02/05/19 08:47; Admin Dose 600 MG; Start 01/31/19 at 16:00 Amikacin Sulfate (Amikacin Iv Per Pharmacy) AMIKACIN PER PHARMACY NOTE XX ; Start 01/31/19 at 15:30 Amikacin Sulfate 300 mg/Sodium Chloride 101.2 ml @ 102 mls/hr AFTER DIALYSIS IVPB Last administered on 02/03/19at 20:19; Admin Dose 102 MLS/HR; Start 02/01/19 at 16:30 Lactulose (Enulose) 20 gm Q6H PRN PO CONSTIPATION; Start 02/04/19 at 11:00 Ondansetron HCl (Zofran Inj) 4 mg Q6H PRN IV NAUSEA AND/OR VOMITING Last administered on 02/04/19at 12:09; Admin Dose 4 MG; Start 02/04/19 at 12:00 Hydralazine HCl (Apresoline) 100 mg Q8 PO Last administered on 02/05/19at 05:18; Admin Dose 100 MG; Start 02/04/19 at 14:00 Meds reviewed: Yes Allergies Coded Allergies: codeine (Verified Allergy, Unknown, 01/26/19) PT TAKES MORPHINE AT HOME, HAS HAD HYDROCODONE AT [facility] IN A PREVIOUS VISIT Allergies Reviewed: Yes Labs/Studies Labs Reviewed: Reviewed by anesthesiologist Result Diagram: 02/05/19 0609 02/05/19 0609 Laboratory Tests 02/05/19 06:09 test: N/A Pre-procedure Exam Last vitals Vital Signs Date Temp Pulse Resp B/P (MAP) Pulse Ox O2 O2 Flow FiO2 Time Delivery Rate 02/05/19 98.1 75 20 115/56 97 Room Air 09:57 (75) 02/05/19 2.0 06:41 02/01/19 30 16:25 Airway: Adequate mouth opening, Adequate thyromental dist Mallampati: Mallampati II Teeth: Normal Lung: Normal Heart: Normal ASA Physical Status ASA physical status: 3 Emergency: None Planned Anesthetic General/MAC: MAC Planned Pain Management Parenteral pain med Pre-operative Attestations Prior to commencing anesthesia and surgery, the patient was re-evaluated, there was verification of: *The patient's identity *The results of appropriate recent lab work and preoperative vital signs *The above evaluation not changing prior to induction *Anesthetic plan, risk benefits, alternative and complications discussed with patient/family; questions answered; patient/family understands, accepts and wishes to proceed. BRIANNA BOYD Feb 05, 2019 10:04
[2019-02-05] MEDS ORDERED: hydrALAzine 20 MG INJ IV PRN (10:30)
[2019-02-05] MEDS ORDERED: EPHEDrine SULFATE 50 MG/5 ML SYG IV PRN (10:30)
[2019-02-05] MEDS ORDERED: LABETALOL HCL 20MG INJ IV PRN (10:30)
[2019-02-05] MEDS ORDERED: ONDANSETRON 4 MG INJ IV PRN (10:30)
[2019-02-05] MEDS ORDERED: FENTAnyl 50 MCG/ML VIAL IV PRN (10:30)
--- NOTE | 2019-02-05 11:05 | PAC ---
Date/Time of Note Date/Time of Note DATE: 02/05/19 TIME: 11:05 Post-Anesthesia Notes Post-Anesthesia Note Last documented vital signs Vital Signs Date Temp Pulse Resp B/P (MAP) Pulse Ox O2 O2 Flow FiO2 Time Delivery Rate 02/05/19 98.1 75 20 115/56 97 Room Air 1104 (75) 02/05/19 2.0 06:41 02/01/19 30 16:25 Activity: WNL Respiratory function: WNL Cardiovascular function: WNL Mental status: Baseline Pain reasonably controlled: Yes Hydration appropriate: Yes Nausea/Vomiting absent: Yes BRIANNA BOYD Feb 05, 2019 11:05
[2019-02-05] MEDS: PREDNISOLONE ACET 1% 5 ML OPH RIGHT EYE SCH ×2 (12:05→21:52)
[2019-02-05] MEDS: MUPIROCIN 2% 22 GM OINT TOP SCH ×2 (12:05→21:52)
[2019-02-05] MEDS: MULTIVIT/CA CARB/B CMPLX/FA TAB PO SCH (12:14)
[2019-02-05] MEDS: COLLAGENASE 5 GM (UD JAR) TOP SCH (12:15)
--- NOTE | 2019-02-05 12:45 | CONS ---
Assessment/Plan Assessment/Plan Hospital Course (Demo Recall) All noted, no fevers Microbiology sacral wound culture grew Proteus, E. coli ESBL, VRE, and MRSA Antimicrobials: Amikacin, Zyvox PHYSICAL EXAMINATION: GENERAL: This is a fragile, wasted, well-developed, elderly woman, who is in no distress. HEENT: Head atraumatic, normocephalic. Sclerae anicteric. The patient has right eye blindness. Buccal mucosa pale, dry. NECK: Supple. CHEST: Rise symmetrical. Breath sounds diminished to bases. HEART: S1, S2. ABDOMEN: Obese, soft, bowel tones present. EXTREMITIES: Bilateral edema. SKIN: The patient has a large necrotic wounds on bilateral buttocks, left buttock and left posterior thigh area , also, necrotic wound. The patient has pressure sores on her left heel as well. Assessment: 1. Multiple necrotic infected wounds, s/p debridement 2. End-stage renal disease, hemodialysis dependent 3. Diabetes 4. Hypertension 5. MRSA colonization 6. HCAP==> LLL Plan: CXR noted==> unchanged, continue antibiotics, wound care per surgical recommendations, plan for colonoscopy today Consultation Date/Type/Reason Admit Date/Time Jan 26, 2019 at 17:32 Initial Consult Date 01/27/19 Type of Consult id Requesting Provider: ALEXUS VALENCIA MD Date/Time of Note DATE: 02/05/19 TIME: 12:44 Exam/Review of Systems Exam Vitals Vital Signs Date Temp Pulse Resp B/P (MAP) Pulse Ox O2 O2 Flow FiO2 Time Delivery Rate 02/05/19 63 12:13 02/05/19 98.6 19 178/77 93 11:30 (110) 02/05/19 Nasal 10:49 Cannula 02/05/19 15 10:06 02/01/19 30 16:25 Intake and Output 02/04/19 02/04/19 02/05/19 1515:00 23:00 07:00 IntakeIntake Total 300 ml 300 ml BalanceBalance 300 ml 300 ml Results Result Diagram: 02/05/19 0609 02/05/19 0609 Results 24hrs Laboratory Tests Test 02/04/19 17:22 02/04/19 22:20 02/05/19 06:09 02/05/19 08:11 Bedside Glucose 159 96 119 White Blood Count 11.8 #H Red Blood Count 3.04 L Hemoglobin 8.7 L Hematocrit 29.3 L Mean Corpuscular 96.4 Volume Mean Corpuscular 28.6 L Hemoglobin Mean Corpuscular 29.7 L Hemoglobin Concent Red Cell 15.8 H Distribution Width Platelet Count 240 Mean Platelet Volume 8.9 Immature 1.500 H Granulocytes % Neutrophils % 80.1 H Lymphocytes % 10.7 L Monocytes % 7.0 Eosinophils % 0.4 Basophils % 0.3 Nucleated Red Blood 0.0 Cells % Immature 0.180 H Granulocytes # Neutrophils # 9.5 H Lymphocytes # 1.3 Monocytes # 0.8 Eosinophils # 0.1 Basophils # 0.0 Nucleated Red Blood 0.0 Cells # Sodium Level 134 L Potassium Level 4.3 Chloride Level 99 Carbon Dioxide Level 27 Anion Gap 8 Blood Urea Nitrogen 17 Creatinine 2.39 H Est Glomerular 20 L Filtrat Rate mL/min Glucose Level 111 Calcium Level 8.6 Test 02/05/19 12:13 Bedside Glucose 122 Medications Medication Current Medications Amiodarone HCl (Cordarone) 200 mg DAILY PO Last administered on 02/05/19 08:49; Admin Dose 200 MG; Start 01/27/19 at 09:00 Ascorbic Acid (Vitamin C) 500 mg DAILY PO Last administered on 02/05/19 08:47; Admin Dose 500 MG; Start 01/27/19 at 09:00 Atorvastatin Calcium (Lipitor) 20 mg QHS PO Last administered on 02/04/19 22:25; Admin Dose 20 MG; Start 01/26/19 at 21:00 Bisacodyl (Dulcolax) 10 mg Q24H PRN PO CONSTIPATION; Start 01/26/19 at 20:00 Citalopram Hydrobromide (Celexa) 20 mg DAILY PO Last administered on 02/05/19 08:49; Admin Dose 20 MG; Start 01/27/19 at 09:00 Docusate Sodium (Colace) 100 mg BID PO Last administered on 02/05/19 08:48; Admin Dose 100 MG; Start 01/26/19 at 21:00 Folic Acid (Folic Acid) 1 mg DAILY PO Last administered on 02/05/19 08:47; Admin Dose 1 MG; Start 01/27/19 at 09:00 Levothyroxine Sodium (Synthroid) 100 mcg BEFORE BREAKFAST PO Last administered on 02/05/19 06:06; Admin Dose 100 MCG; Start 01/27/19 at 07:00 Metoclopramide HCl (Reglan) 5 mg BEFORE MEALS PO Last administered on 02/05/19 12:14; Admin Dose 5 MG; Start 01/27/19 at 07:30 Metoprolol Tartrate (Lopressor) 25 mg BID PO Last administered on 02/05/19 08:50; Admin Dose 25 MG; Start 01/26/19 at 21:00 Multivit/Ca Carb/ B Cmplx/FA/Prenat (Wendi-Cathi) 1 tab DAILY PO Last administered on 02/05/19 12:14; Admin Dose 1 TAB; Start 01/27/19 at 09:00 Ondansetron HCl (Zofran Tab) 4 mg Q6H PRN PO NAUSEA AND/OR VOMITING Last administered on 01/30/19 10:43; Admin Dose 4 MG; Start 01/26/19 at 20:00 Pantoprazole (Protonix Tab) 40 mg DAILY PO Last administered on 02/05/19 08:48; Admin Dose 40 MG; Start 01/27/19 at 09:00 Polyethylene Glycol (Miralax) 17 gm DAILY PO Last administered on 02/05/19 08:47; Admin Dose 17 GM; Start 01/27/19 at 09:00 Prednisolone Acetate (Pred-Forte 1%) 1 drop BID RIGHT EYE Last administered on 02/05/19 12:05; Admin Dose 1 DROP; Start 01/26/19 at 21:00 Zinc Sulfate (Zinc Sulfate) 220 mg DAILY PO Last administered on 02/05/19 08:47; Admin Dose 220 MG; Start 01/27/19 at 09:00 Insulin Aspart (Novolog Insulin Pen) NOVOLOG *MODERATE* ALGORITHM WITH MEALS BEDTIME SC Last administered on 02/04/19 17:37; Admin Dose 2 UNIT; Start 01/26/19 at 21:00 Heparin Sodium (Porcine) (Heparin (5000 Units/1ml)) 5,000 unit BID SC Last administered on 02/04/19 22:55; Admin Dose 5,000 UNIT; Start 01/26/19 at 21:00 Morphine Sulfate (morphine) 2 mg Q4H PRN IV SEVERE PAIN LEVEL 7-10 Last administered on 3/29/19at 02:25; Admin Dose 2 MG; Start 01/26/19 at 20:30 Miscellaneous Information 1 ea NOTE XX ; Start 01/26/19 at 23:45 Glucose (Glutose) 15 gm Q15M PRN PO DECREASED GLUCOSE; Start 01/26/19 at 23:45 Glucose (Glutose) 22.5 gm Q15M PRN PO DECREASED GLUCOSE; Start 01/26/19 at 23:45 Dextrose (D50w Syringe) 25 ml Q15M PRN IV DECREASED GLUCOSE Last administered on 01/28/19at 07:50; Admin Dose 25 ML; Start 01/26/19 at 23:45 Dextrose (D50w Syringe) 50 ml Q15M PRN IV DECREASED GLUCOSE; Start 01/26/19 at 23:45 Glucagon (Glucagen) 1 mg Q15M PRN IM DECREASED GLUCOSE; Start 01/26/19 at 23:45 Glucose (Glutose) 15 gm Q15M PRN BUCCAL DECREASED GLUCOSE; Start 01/26/19 at 23:45 Alteplase, Recombinant (Cathflo (Activase)) 2 mg MAY REPEAT X1 PRN CATHETER IF C ATHETER REMAINS OCCULUDED Last administered on 02/02/19at 23:09; Admin Dose 2 MG; Start 01/27/19 at 07:00 Tramadol HCl (Ultram) 50 mg Q6H PO Last administered on 02/05/19 08:08; Admin Dose 50 MG; Start 01/27/19 at 08:00 Collagenase (Santyl) 1 applic DAILY TOP Last administered on 02/05/19 12:15; Admin Dose 1 APPLIC; Start 01/28/19 at 09:00 Sodium Hypochlorite (Dakin'S (Dilute )) 1 applic DAILY IRR Last administered on 02/05/19 09:40; Admin Dose 1 APPLIC; Start 01/28/19 at 09:00 Lorazepam (Ativan) 1 mg Q8H PRN PO ANXIETY; Start 01/27/19 at 22:30 Mupirocin (Bactroban) 1 applic BID TOP Last administered on 02/05/19at 12:05; Admin Dose 1 APPLIC; Start 01/28/19 at 21:00 Epoetin Indra (Epogen (Esrd)) 8,000 units TuThSa@17 SC Last administered on 3/28/19at 17:26; Admin Dose 8,000 UNITS; Start 01/30/19 at 17:00 Megestrol Acetate (Megace Susp) 400 mg DAILY PO Last administered on 02/05/19at 08:46; Admin Dose 400 MG; Start 01/30/19 at 14:30 Linezolid (Zyvox) 600 mg BID PO Last administered on 02/05/19at 08:47; Admin Dose 600 MG; Start 01/31/19 at 16:00 Amikacin Sulfate (Amikacin Iv Per Pharmacy) AMIKACIN PER PHARMACY NOTE XX ; Start 01/31/19 at 15:30 Amikacin Sulfate 300 mg/Sodium Chloride 101.2 ml @ 102 mls/hr AFTER DIALYSIS IVPB Last administered on 02/03/19at 20:19; Admin Dose 102 MLS/HR; Start 02/01/19 at 16:30 Lactulose (Enulose) 20 gm Q6H PRN PO CONSTIPATION; Start 02/04/19 at 11:00 Ondansetron HCl (Zofran Inj) 4 mg Q6H PRN IV NAUSEA AND/OR VOMITING Last administered on 02/04/19at 12:09; Admin Dose 4 MG; Start 02/04/19 at 12:00 Hydralazine HCl (Apresoline) 100 mg Q8 PO Last administered on 02/05/19at 05:18; Admin Dose 100 MG; Start 02/04/19 at 14:00 Fentanyl (Sublimaze) 25 mcg PACU ORDER PRN IV MILD PAIN 1-3; Start 02/05/19 at 10:30; Stop 02/05/19 at 18:00 Ondansetron HCl (Zofran Inj) 4 mg PACU ORDER PRN IV NAUSEA/VOMITING; Start 02/05/19 at 10:30; Stop 02/05/19 at 18:00 Labetalol HCl (Labetalol) 5 mg PACU ORDER PRN IV HIGH BLOOD PRESSURE; Start 02/05/19 at 10:30; Stop 02/05/19 at 18:00 Hydralazine HCl (Apresoline) 5 mg PACU ORDER PRN IV HIGH BLOOD PRESSURE; Start 02/05/19 at 10:30; Stop 02/05/19 at 18:00 Ephedrine Sulfate 5 mg PACU ORDER PRN IV BLOOD PRESSURE SUPPORT; Start 02/05/19 at 10:30; Stop 02/05/19 at 18:00 ALYX NAVARRO NP Feb 05, 2019 12:45
--- NOTE | 2019-02-05 13:36 | CONS ---
Assessment/Plan Assessment/Plan Hospital Course (Demo Recall) IMPRESSION: 1. Preop evaluation. The patient to undergo EGD whose 2D echo I just read revealing EF lower limits of normal, approximately 50% with no significant contraindicated valvular lesions and negative troponin x1 since admit, patient is okay to proceed at a moderate cardiovascular risk. Now post-op s/p endoscopy and debridement of decub ulcer 2. Congestive heart failure, diastolic acute on chronic. 3. Hypertension. 4. Cardiac arrhythmia, on amiodarone, in sinus rhythm by EKG. 5. Hypothyroidism. 6. Diabetes mellitus. 7. Nausea and vomiting. 8. Generalized weakness. 9. Decubitus ulcers s/p debridement 10. Anemia. 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 Recc: -Tele -Contineu BB and hydralazine s/p increase and follow very labile BP -continue statin -Continue abx's and f/u cx data -local wound care Consultation Date/Type/Reason Admit Date/Time Jan 26, 2019 at 17:32 Initial Consult Date 01/27/19 Type of Consult Cardiology Reason for Consultation HTN Requesting Provider: ALEXUS VALENCIA MD Date/Time of Note DATE: 02/05/19 TIME: 13:32 Exam/Review of Systems Vital Signs Vitals Vital Signs Date Temp Pulse Resp B/P (MAP) Pulse Ox O2 O2 Flow FiO2 Time Delivery Rate 02/05/19 2.0 13:26 02/05/19 63 12:13 02/05/19 98.6 19 178/77 93 11:30 (110) 02/05/19 Nasal 10:49 Cannula 02/01/19 30 16:25 Intake and Output 02/04/19 02/04/19 02/05/19 1515:00 23:00 07:00 IntakeIntake Total 300 ml 300 ml BalanceBalance 300 ml 300 ml Exam Exam Review of Systems: CONSTITUTIONAL: No fevers, chills. PULMONARY: No sob CARDIOVASCULAR: No chest pain/palpitations GASTROINTESTINAL: No nausea/vomiting. GENITOURINARY: No hematuria/dysuria. MUSCULOSKELETAL: No myagias/arthalgias. PSYCHIATRIC: The patient denies depression. NEUROLOGIC: No weakness Constitutional: alert Psych: no complaints Head: normocephalic ENMT: mucosa pink and moist Neck: supple, jvd (9 cm water) Respiratory: diminished breath sounds Cardiovascular: regular rate and rhythm Gastrointestinal: soft Musculoskeletal: muscle tone (normal) Extremities: edema (none) Neurological: other (No focal deficits) Labs Result Diagram: 02/05/19 0609 02/05/19 0609 Results 24hrs Laboratory Tests Test 02/04/19 17:22 02/04/19 22:20 02/05/19 06:09 02/05/19 08:11 Bedside Glucose 159 96 119 White Blood Count 11.8 #H Red Blood Count 3.04 L Hemoglobin 8.7 L Hematocrit 29.3 L Mean Corpuscular 96.4 Volume Mean Corpuscular 28.6 L Hemoglobin Mean Corpuscular 29.7 L Hemoglobin Concent Red Cell 15.8 H Distribution Width Platelet Count 240 Mean Platelet Volume 8.9 Immature 1.500 H Granulocytes % Neutrophils % 80.1 H Lymphocytes % 10.7 L Monocytes % 7.0 Eosinophils % 0.4 Basophils % 0.3 Nucleated Red Blood 0.0 Cells % Immature 0.180 H Granulocytes # Neutrophils # 9.5 H Lymphocytes # 1.3 Monocytes # 0.8 Eosinophils # 0.1 Basophils # 0.0 Nucleated Red Blood 0.0 Cells # Sodium Level 134 L Potassium Level 4.3 Chloride Level 99 Carbon Dioxide Level 27 Anion Gap 8 Blood Urea Nitrogen 17 Creatinine 2.39 H Est Glomerular 20 L Filtrat Rate mL/min Glucose Level 111 Calcium Level 8.6 Test 02/05/19 12:13 Bedside Glucose 122 Medications Medications Current Medications Amiodarone HCl (Cordarone) 200 mg DAILY PO Last administered on 02/05/19at 08:49; Admin Dose 200 MG; Start 01/27/19 at 09:00 Ascorbic Acid (Vitamin C) 500 mg DAILY PO Last administered on 02/05/19at 08:47; Admin Dose 500 MG; Start 01/27/19 at 09:00 Atorvastatin Calcium (Lipitor) 20 mg QHS PO Last administered on 02/04/19at 22:25; Admin Dose 20 MG; Start 01/26/19 at 21:00 Bisacodyl (Dulcolax) 10 mg Q24H PRN PO CONSTIPATION; Start 01/26/19 at 20:00 Citalopram Hydrobromide (Celexa) 20 mg DAILY PO Last administered on 02/05/19at 08:49; Admin Dose 20 MG; Start 01/27/19 at 09:00 Docusate Sodium (Colace) 100 mg BID PO Last administered on 02/05/19 08:48; Admin Dose 100 MG; Start 01/26/19 at 21:00 Folic Acid (Folic Acid) 1 mg DAILY PO Last administered on 02/05/19 08:47; Admin Dose 1 MG; Start 01/27/19 at 09:00 Levothyroxine Sodium (Synthroid) 100 mcg BEFORE BREAKFAST PO Last administered on 02/05/19 06:06; Admin Dose 100 MCG; Start 01/27/19 at 07:00 Metoclopramide HCl (Reglan) 5 mg BEFORE MEALS PO Last administered on 02/05/19 12:14; Admin Dose 5 MG; Start 01/27/19 at 07:30 Metoprolol Tartrate (Lopressor) 25 mg BID PO Last administered on 02/05/19 08:50; Admin Dose 25 MG; Start 01/26/19 at 21:00 Multivit/Ca Carb/ B Cmplx/FA/Prenat (Wendi-Cathi) 1 tab DAILY PO Last administered on 02/05/19 12:14; Admin Dose 1 TAB; Start 01/27/19 at 09:00 Ondansetron HCl (Zofran Tab) 4 mg Q6H PRN PO NAUSEA AND/OR VOMITING Last administered on 01/30/19 10:43; Admin Dose 4 MG; Start 01/26/19 at 20:00 Pantoprazole (Protonix Tab) 40 mg DAILY PO Last administered on 02/05/19 08:48; Admin Dose 40 MG; Start 01/27/19 at 09:00 Polyethylene Glycol (Miralax) 17 gm DAILY PO Last administered on 02/05/19 08:47; Admin Dose 17 GM; Start 01/27/19 at 09:00 Prednisolone Acetate (Pred-Forte 1%) 1 drop BID RIGHT EYE Last administered on 02/05/19 12:05; Admin Dose 1 DROP; Start 01/26/19 at 21:00 Zinc Sulfate (Zinc Sulfate) 220 mg DAILY PO Last administered on 02/05/19 08:47; Admin Dose 220 MG; Start 01/27/19 at 09:00 Insulin Aspart (Novolog Insulin Pen) NOVOLOG *MODERATE* ALGORITHM WITH MEALS BEDTIME SC Last administered on 02/04/19 17:37; Admin Dose 2 UNIT; Start 01/26/19 at 21:00 Heparin Sodium (Porcine) (Heparin (5000 Units/1ml)) 5,000 unit BID SC Last administered on 02/04/19 22:55; Admin Dose 5,000 UNIT; Start 01/26/19 at 21:00 Morphine Sulfate (morphine) 2 mg Q4H PRN IV SEVERE PAIN LEVEL 7-10 Last administered on 02/05/19 02:25; Admin Dose 2 MG; Start 01/26/19 at 20:30 Miscellaneous Information 1 ea NOTE XX ; Start 01/26/19 at 23:45 Glucose (Glutose) 15 gm Q15M PRN PO DECREASED GLUCOSE; Start 01/26/19 at 23:45 Glucose (Glutose) 22.5 gm Q15M PRN PO DECREASED GLUCOSE; Start 01/26/19 at 23:45 Dextrose (D50w Syringe) 25 ml Q15M PRN IV DECREASED GLUCOSE Last administered on 01/28/19 07:50; Admin Dose 25 ML; Start 01/26/19 at 23:45 Dextrose (D50w Syringe) 50 ml Q15M PRN IV DECREASED GLUCOSE; Start 01/26/19 at 23:45 Glucagon (Glucagen) 1 mg Q15M PRN IM DECREASED GLUCOSE; Start 01/26/19 at 23:45 Glucose (Glutose) 15 gm Q15M PRN BUCCAL DECREASED GLUCOSE; Start 01/26/19 at 23:45 Alteplase, Recombinant (Cathflo (Activase)) 2 mg MAY REPEAT X1 PRN CATHETER IF CATHETER REMAINS OCCULUDED Last administered on 02/02/19 23:09; Admin Dose 2 MG; Start 01/27/19 at 07:00 Tramadol HCl (Ultram) 50 mg Q6H PO Last administered on 02/05/19 08:08; Admin Dose 50 MG; Start 01/27/19 at 08:00 Collagenase (Santyl) 1 applic DAILY TOP Last administered on 02/05/19 12:15; Admin Dose 1 APPLIC; Start 01/28/19 at 09:00 Sodium Hypochlorite (Dakin'S (Dilute )) 1 applic DAILY IRR Last administered on 02/05/19 09:40; Admin Dose 1 APPLIC; Start 01/28/19 at 09:00 Lorazepam (Ativan) 1 mg Q8H PRN PO ANXIETY; Start 01/27/19 at 22:30 Mupirocin (Bactroban) 1 applic BID TOP Last administered on 02/05/19 12:05; Admin Dose 1 APPLIC; Start 01/28/19 at 21:00 Epoetin Indra (Epogen (Esrd)) 8,000 units TuThSa@17 SC Last administered on 02/04/19 17:26; Admin Dose 8,000 UNITS; Start 01/30/19 at 17:00 Megestrol Acetate (Megace Susp) 400 mg DAILY PO Last administered on 02/05/19 08:46; Admin Dose 400 MG; Start 01/30/19 at 14:30 Linezolid (Zyvox) 600 mg BID PO Last administered on 02/05/19 08:47; Admin Dose 600 MG; Start 01/31/19 at 16:00 Amikacin Sulfate (Amikacin Iv Per Pharmacy) AMIKACIN PER PHARMACY NOTE XX ; Start 01/31/19 at 15:30 Amikacin Sulfate 300 mg/Sodium Chloride 101.2 ml @ 102 mls/hr AFTER DIALYSIS IVPB Last administered on 02/03/19 20:19; Admin Dose 102 MLS/HR; Start 02/01/19 at 16:30 Lactulose (Enulose) 20 gm Q6H PRN PO CONSTIPATION; Start 02/04/19 at 11:00 Ondansetron HCl (Zofran Inj) 4 mg Q6H PRN IV NAUSEA AND/OR VOMITING Last administered on 02/04/19 12:09; Admin Dose 4 MG; Start 02/04/19 at 12:00 Hydralazine HCl (Apresoline) 100 mg Q8 PO Last administered on 02/05/19 05:18; Admin Dose 100 MG; Start 02/04/19 at 14:00 Fentanyl (Sublimaze) 25 mcg PACU ORDER PRN IV MILD PAIN 1-3; Start 02/05/19 at 10:30; Stop 02/05/19 at 18:00 Ondansetron HCl (Zofran Inj) 4 mg PACU ORDER PRN IV NAUSEA/VOMITING; Start 02/05/19 at 10:30; Stop 02/05/19 at 18:00 Labetalol HCl (Labetalol) 5 mg PACU ORDER PRN IV HIGH BLOOD PRESSURE; Start 02/05/19 at 10:30; Stop 02/05/19 at 18:00 Hydralazine HCl (Apresoline) 5 mg PACU ORDER PRN IV HIGH BLOOD PRESSURE; Start 02/05/19 at 10:30; Stop 02/05/19 at 18:00 Ephedrine Sulfate 5 mg PACU ORDER PRN IV BLOOD PRESSURE SUPPORT; Start 02/05/19 at 10:30; Stop 02/05/19 at 18:00 ALIREZA LEE Feb 05, 2019 13:36
--- NOTE | 2019-02-05 21:01 | PN ---
Date/Time of Note Date/Time of Note DATE: 02/05/19 TIME: 21:00 Assessment/Plan VTE [place] [facility] [place]: 4 [place] [facility] [place] SCD contraindicated: other Pharmacological prophylaxis: other Pharm contraindication: other Lines/Catheters [facility] Type ([facility] PICC Line Central line still needed: Yes Urinary Cath still in place: No Assessment/Plan Assessment/Plan -Sacral and bilateral ischial infected wounds. Status post sacrum and right ischial debridement 01/29/19. - per Dr. Almanza in general surgery consultation. - Continue antibiotics per ID- Zyvox and amikacin. - per Dr. Guevara in infection disease consultation. -Left lower lobe infiltrate -MRSA of nares colonization. Contact isolation. -Abdominal pain. Status post EGD with notion of gastritis. Continue PPI. -Moderate bilateral pleural effusion slightly improved per chest x-ray from 02/03/19. -Hemodialysis dependent end-stage renal disease. Continue on hemodialysis. - per Dr. Mcdaniel in nephrology standpoint. -Diabetes mellitus type 2. - Glycemic control -Hypothyroidism, continue levothyroxine -Hypertension. -Hyperlipidemia, continue statin -Anemia -Right eye blindness. Further recommendations based on clinical course. Plan of care discussed with Dr. Mandel. 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 afebrile seems comfortable no new issues reported last night Result Diagram: 02/05/19 0609 02/05/19 0609 Results 24hrs Laboratory Tests Test 02/04/19 22:20 02/05/19 06:09 02/05/19 08:11 02/05/19 12:13 Bedside Glucose 96 119 122 White Blood Count 11.8 #H Red Blood Count 3.04 L Hemoglobin 8.7 L Hematocrit 29.3 L Mean Corpuscular 96.4 Volume Mean Corpuscular 28.6 L Hemoglobin Mean Corpuscular 29.7 L Hemoglobin Concent Red Cell 15.8 H Distribution Width Platelet Count 240 Mean Platelet Volume 8.9 Immature 1.500 H Granulocytes % Neutrophils % 80.1 H Lymphocytes % 10.7 L Monocytes % 7.0 Eosinophils % 0.4 Basophils % 0.3 Nucleated Red Blood 0.0 Cells % Immature 0.180 H Granulocytes # Neutrophils # 9.5 H Lymphocytes # 1.3 Monocytes # 0.8 Eosinophils # 0.1 Basophils # 0.0 Nucleated Red Blood 0.0 Cells # Sodium Level 134 L Potassium Level 4.3 Chloride Level 99 Carbon Dioxide Level 27 Anion Gap 8 Blood Urea Nitrogen 17 Creatinine 2.39 H Est Glomerular 20 L Filtrat Rate mL/min Glucose Level 111 Calcium Level 8.6 Test 02/05/19 17:37 Bedside Glucose 128 Subjective 24 Hr Interval Summary Free Text/Dictation 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 afebrile seems comfortable no new issues reported last night Constitutional: requiring O2 Eyes: no complaints ENT: no complaints Respiratory: no complaints Exam/Review of Systems Exam Vitals Vital Signs Date Temp Pulse Resp B/P (MAP) Pulse Ox O2 O2 Flow FiO2 Time Delivery Rate 02/05/19 Nasal 2.0 16:30 Cannula 02/05/19 67 16:14 02/05/19 98.5 18 133/72 99 15:07 (92) 02/01/19 30 16:25 Intake and Output 02/04/19 02/04/19 02/05/19 1515:00 23:00 07:00 IntakeIntake Total 300 ml 300 ml BalanceBalance 300 ml 300 ml Constitutional: alert, well developed Psych: nl mood/affect Head: normocephalic Eyes: nl lids, other (blind- right eye) ENMT: nl external ears & nose Neck: supple Respiratory: clear to auscultation Cardiovascular: nl pulses, other (s1s2) Gastrointestinal: soft, non-tender Musculoskeletal: muscle weakness Extremities: normal pulses Neurological: confused Skin: other (decubs ) Lymph: nontender Results Results 24hrs Laboratory Tests Test 02/04/19 22:20 02/05/19 06:09 02/05/19 08:11 02/05/19 12:13 Bedside Glucose 96 119 122 White Blood Count 11.8 #H Red Blood Count 3.04 L Hemoglobin 8.7 L Hematocrit 29.3 L Mean Corpuscular 96.4 Volume Mean Corpuscular 28.6 L Hemoglobin Mean Corpuscular 29.7 L Hemoglobin Concent Red Cell 15.8 H Distribution Width Platelet Count 240 Mean Platelet Volume 8.9 Immature 1.500 H Granulocytes % Neutrophils % 80.1 H Lymphocytes % 10.7 L Monocytes % 7.0 Eosinophils % 0.4 Basophils % 0.3 Nucleated Red Blood 0.0 Cells % Immature 0.180 H Granulocytes # Neutrophils # 9.5 H Lymphocytes # 1.3 Monocytes # 0.8 Eosinophils # 0.1 Basophils # 0.0 Nucleated Red Blood 0.0 Cells # Sodium Level 134 L Potassium Level 4.3 Chloride Level 99 Carbon Dioxide Level 27 Anion Gap 8 Blood Urea Nitrogen 17 Creatinine 2.39 H Est Glomerular 20 L Filtrat Rate mL/min Glucose Level 111 Calcium Level 8.6 Test 02/05/19 17:37 Bedside Glucose 128 Medications Medication Current Medications Amiodarone HCl (Cordarone) 200 mg DAILY PO Last administered on 02/05/19 08:49; Admin Dose 200 MG; Start 01/27/19 at 09:00 Ascorbic Acid (Vitamin C) 500 mg DAILY PO Last administered on 02/05/19 08:47; Admin Dose 500 MG; Start 01/27/19 at 09:00 Atorvastatin Calcium (Lipitor) 20 mg QHS PO Last administered on 02/04/19 22:25; Admin Dose 20 MG; Start 01/26/19 at 21:00 Bisacodyl (Dulcolax) 10 mg Q24H PRN PO CONSTIPATION; Start 01/26/19 at 20:00 Citalopram Hydrobromide (Celexa) 20 mg DAILY PO Last administered on 02/05/19 08:49; Admin Dose 20 MG; Start 01/27/19 at 09:00 Docusate Sodium (Colace) 100 mg BID PO Last administered on 02/05/19 08:48; Admin Dose 100 MG; Start 01/26/19 at 21:00 Folic Acid (Folic Acid) 1 mg DAILY PO Last administered on 02/05/19 08:47; Admin Dose 1 MG; Start 01/27/19 at 09:00 Levothyroxine Sodium (Synthroid) 100 mcg BEFORE BREAKFAST PO Last administered on 02/05/19 06:06; Admin Dose 100 MCG; Start 01/27/19 at 07:00 Metoclopramide HCl (Reglan) 5 mg BEFORE MEALS PO Last administered on 02/05/19 17:36; Admin Dose 5 MG; Start 01/27/19 at 07:30 Metoprolol Tartrate (Lopressor) 25 mg BID PO Last administered on 02/05/19 08:50; Admin Dose 25 MG; Start 01/26/19 at 21:00 Multivit/Ca Carb/ B Cmplx/FA/Prenat (Wendi-Cathi) 1 tab DAILY PO Last administered on 02/05/19 12:14; Admin Dose 1 TAB; Start 01/27/19 at 09:00 Ondansetron HCl (Zofran Tab) 4 mg Q6H PRN PO NAUSEA AND/OR VOMITING Last administered on 01/30/19 10:43; Admin Dose 4 MG; Start 01/26/19 at 20:00 Pantoprazole (Protonix Tab) 40 mg DAILY PO Last administered on 02/05/19 08:48; Admin Dose 40 MG; Start 01/27/19 at 09:00 Polyethylene Glycol (Miralax) 17 gm DAILY PO Last administered on 02/05/19 08:47; Admin Dose 17 GM; Start 01/27/19 at 09:00 Prednisolone Acetate (Pred-Forte 1%) 1 drop BID RIGHT EYE Last administered on 02/05/19 12:05; Admin Dose 1 DROP; Start 01/26/19 at 21:00 Zinc Sulfate (Zinc Sulfate) 220 mg DAILY PO Last administered on 02/05/19 08:47; Admin Dose 220 MG; Start 01/27/19 at 09:00 Insulin Aspart (Novolog Insulin Pen) NOVOLOG *MODERATE* ALGORITHM WITH MEALS BEDTIME SC Last administered on 02/04/19 17:37; Admin Dose 2 UNIT; Start 01/26/19 at 21:00 Heparin Sodium (Porcine) (Heparin (5000 Units/1ml)) 5,000 unit BID SC Last administered on 02/04/19 22:55; Admin Dose 5,000 UNIT; Start 01/26/19 at 21:00 Morphine Sulfate (morphine) 2 mg Q4H PRN IV SEVERE PAIN LEVEL 7-10 Last adminis tered on 02/05/19 02:25; Admin Dose 2 MG; Start 01/26/19 at 20:30 Miscellaneous Information 1 ea NOTE XX ; Start 01/26/19 at 23:45 Glucose (Glutose) 15 gm Q15M PRN PO DECREASED GLUCOSE; Start 01/26/19 at 23:45 Glucose (Glutose) 22.5 gm Q15M PRN PO DECREASED GLUCOSE; Start 01/26/19 at 23:45 Dextrose (D50w Syringe) 25 ml Q15M PRN IV DECREASED GLUCOSE Last administered on 01/28/19 07:50; Admin Dose 25 ML; Start 01/26/19 at 23:45 Dextrose (D50w Syringe) 50 ml Q15M PRN IV DECREASED GLUCOSE; Start 01/26/19 at 23:45 Glucagon (Glucagen) 1 mg Q15M PRN IM DECREASED GLUCOSE; Start 01/26/19 at 23:45 Glucose (Glutose) 15 gm Q15M PRN BUCCAL DECREASED GLUCOSE; Start 01/26/19 at 23:45 Alteplase, Recombinant (Cathflo (Activase)) 2 mg MAY REPEAT X1 PRN CATHETER IF CATHETER REMAINS OCCULUDED Last administered on 02/02/19 23:09; Admin Dose 2 MG; Start 01/27/19 at 07:00 Tramadol HCl (Ultram) 50 mg Q6H PO Last administered on 02/05/19 14:30; Admin Dose 50 MG; Start 01/27/19 at 08:00 Collagenase (Santyl) 1 applic DAILY TOP Last administered on 02/05/19 12:15; Admin Dose 1 APPLIC; Start 01/28/19 at 09:00 Sodium Hypochlorite (Dakin'S (Dilute )) 1 applic DAILY IRR Last administered on 02/05/19 09:40; Admin Dose 1 APPLIC; Start 01/28/19 at 09:00 Lorazepam (Ativan) 1 mg Q8H PRN PO ANXIETY; Start 01/27/19 at 22:30 Mupirocin (Bactroban) 1 applic BID TOP Last administered on 02/05/19 12:05; Admin Dose 1 APPLIC; Start 01/28/19 at 21:00 Epoetin Indra (Epogen (Esrd)) 8,000 units TuThSa@17 SC Last administered on 02/04/19 17:26; Admin Dose 8,000 UNITS; Start 01/30/19 at 17:00 Megestrol Acetate (Megace Susp) 400 mg DAILY PO Last administered on 02/05/19 08:46; Admin Dose 400 MG; Start 01/30/19 at 14:30 Linezolid (Zyvox) 600 mg BID PO Last administered on 02/05/19 08:47; Admin Do se 600 MG; Start 01/31/19 at 16:00 Amikacin Sulfate (Amikacin Iv Per Pharmacy) AMIKACIN PER PHARMACY NOTE XX ; Start 01/31/19 at 15:30 Amikacin Sulfate 300 mg/Sodium Chloride 101.2 ml @ 102 mls/hr AFTER DIALYSIS IVPB Last administered on 02/03/19at 20:19; Admin Dose 102 MLS/HR; Start 02/01/19 at 16:30 Lactulose (Enulose) 20 gm Q6H PRN PO CONSTIPATION; Start 02/04/19 at 11:00 Ondansetron HCl (Zofran Inj) 4 mg Q6H PRN IV NAUSEA AND/OR VOMITING Last administered on 02/04/19at 12:09; Admin Dose 4 MG; Start 02/04/19 at 12:00 Hydralazine HCl (Apresoline) 100 mg Q8 PO Last administered on 02/05/19at 14:30; Admin Dose 100 MG; Start 02/04/19 at 14:00 TROY ANTOINE Feb 05, 2019 21:00
[2019-02-05] MEDS: ATORVASTATIN 20 MG TAB PO SCH (21:53)
[2019-02-06] VITALS (21 sets, daily range): BP systolic 135–167; BP diastolic 51–108; PULSE 63–72; RESP 16–20
[2019-02-06] MEDS: traMADol 50 MG TAB PO SCH ×4 (02:00→22:56)
[2019-02-06] MEDS: morphine 2 MG INJ IV PRN ×2 (02:37→15:13)
[2019-02-06] MEDS: LEVOTHYROXINE 100 MCG TAB PO SCH (06:43)
[2019-02-06] MEDS: METOCLOPRAMIDE 5 MG TAB PO SCH ×3 (06:46→18:24)
[2019-02-06] MEDS: INSULIN ASPART [NOVOLOG] 3 ML PEN SC SCH ×4 (07:56→21:00)
[2019-02-06] MEDS: BALSAM PERU/CASTOR OIL 60 GM TUBE TOP SCH ×2 (09:30→22:59)
[2019-02-06] MEDS: COLLAGENASE 5 GM (UD JAR) TOP SCH (09:30)
[2019-02-06] MEDS: MULTIVIT/CA CARB/B CMPLX/FA TAB PO SCH (09:31)
[2019-02-06] MEDS: PANTOPRAZOLE (EC) 40 MG TAB PO SCH (09:31)
[2019-02-06] MEDS: MUPIROCIN 2% 22 GM OINT TOP SCH ×2 (09:31→22:59)
[2019-02-06] MEDS: POLYETHYLENE GLYCOL 17 GM PACKET PO SCH (09:31)
[2019-02-06] MEDS: METOPROLOL 25 MG TAB PO SCH ×2 (09:31→22:56)
[2019-02-06] MEDS: DOCUSATE SODIUM 100 MG CAP PO SCH ×2 (09:31→21:00)
[2019-02-06] MEDS: ZINC SULFATE 220 MG CAP PO SCH (09:31)
[2019-02-06] MEDS: FOLIC ACID 1 MG TAB PO SCH (09:31)
[2019-02-06] MEDS: MEGESTROL (40 MG/ML) 10ML CUP PO SCH (09:31)
[2019-02-06] MEDS: PREDNISOLONE ACET 1% 5 ML OPH RIGHT EYE SCH ×2 (09:31→22:57)
[2019-02-06] MEDS: AMIODARONE 200 MG TAB PO SCH (09:32)
[2019-02-06] MEDS: ZYVOX 600 MG TAB PO SCH ×2 (09:32→22:55)
[2019-02-06] MEDS: ASCORBIC ACID 500 MG TAB PO SCH (09:32)
[2019-02-06] MEDS: CITALOPRAM 20 MG TAB PO SCH (09:32)
[2019-02-06] MEDS: SODIUM HYPOCHLORITE (1/40) 1 LITER BTL IRR SCH (09:33)
[2019-02-06] MEDS: HEPARIN 5,000 UNIT/1 ML VIAL SC SCH ×2 (11:12→23:37)
--- NOTE | 2019-02-06 11:22 | CONS ---
Assessment/Plan Assessment/Plan Hospital Course (Demo Recall) ID PROGRESS NOTE CURRENT ABX: DAY # => ZYVOX + AMIKACIN 02/05/19 0609 02/05/19 0609 24H INTERVAL SUMMARY * Resting comfortably, VSS, no fevers, NAD, no complaints DIAGNOSTIC IMAGING * 02/05/19 CXR: There is bilateral air space disease in the mid and lower lung zones, unchanged. The heart is enlarged. There is calcification in the aorta consistent with atherosclerosis. Small bilateral pleural effusions are unchanged. MICRO/OTHER * Microbiology sacral wound culture grew Proteus, E. coli ESBL, VRE, and MRSA PHYSICAL EXAMINATION: GENERAL: VSS, NAD, OBESE HEENT: AT, NC, anicteric, NECK: Supple, CHEST: Equal chest rise bilaterally, without dyspnea on observation HEART: Pulse RRR ABDOMEN: Soft / NT EXTREMITIES: Warm, dry The patient has a large necrotic wounds on bilateral buttocks, left buttock and left posterior thigh area , also, necrotic wound. The patient has pressure sores on her left heel as well. SKIN: No rash, no diaphoresis ID ASSESSMENT 63 yo F admit with: 1. Multiple necrotic infected wounds, s/p debridement 2. End-stage renal disease, hemodialysis dependent 3. Diabetes 4. Hypertension 5. MRSA colonization 6. HCAP==> LLL (-)MRSA Nares ABX ALLERGIES: None to ABX INVASIVES: PIV CURRENT ABX: DAY # ZYVOX + AMIKACIN ID RECOMMENDATIONS/PLAN: 1. Continue current ABX over the weekend. Consultation Date/Type/Reason Admit Date/Time Jan 26, 2019 at 17:32 Initial Consult Date 01/27/19 Requesting Provider: ALEXUS VALENCIA MD Date/Time of Note DATE: 02/06/19 TIME: 11:22 Exam/Review of Systems Exam Vitals Vital Signs Date Temp Pulse Resp B/P (MAP) Pulse Ox O2 O2 Flow FiO2 Time Delivery Rate 02/06/19 Nasal 2.0 10:54 Cannula 02/06/19 67 08:26 02/06/19 98.6 16 156/68 92 08:13 (97) Intake and Output 02/05/19 02/05/19 02/06/19 1515:00 23:00 07:00 IntakeIntake Total 500 ml 400 ml BalanceBalance 500 ml 400 ml Results Result Diagram: 02/05/19 0609 02/05/19 0609 Results 24hrs Laboratory Tests Test 02/05/19 12:13 02/05/19 17:37 02/05/19 21:51 02/06/19 07:46 Bedside Glucose 122 128 109 99 Medications Medication Current Medications Amiodarone HCl (Cordarone) 200 mg DAILY PO Last administered on 02/06/19 09:32; Admin Dose 200 MG; Start 01/27/19 at 09:00 Ascorbic Acid (Vitamin C) 500 mg DAILY PO Last administered on 02/06/19 09:32; Admin Dose 500 MG; Start 01/27/19 at 09:00 Atorvastatin Calcium (Lipitor) 20 mg QHS PO Last administered on 02/05/19 21:53; Admin Dose 20 MG; Start 01/26/19 at 21:00 Bisacodyl (Dulcolax) 10 mg Q24H PRN PO CONSTIPATION; Start 01/26/19 at 20:00 Citalopram Hydrobromide (Celexa) 20 mg DAILY PO Last administered on 02/06/19 09:32; Admin Dose 20 MG; Start 01/27/19 at 09:00 Docusate Sodium (Colace) 100 mg BID PO Last administered on 02/06/19 09:31; Admin Dose 100 MG; Start 01/26/19 at 21:00 Folic Acid (Folic Acid) 1 mg DAILY PO Last administered on 02/06/19 09:31; Admin Dose 1 MG; Start 01/27/19 at 09:00 Levothyroxine Sodium (Synthroid) 100 mcg BEFORE BREAKFAST PO Last administered on 02/06/19 06:43; Admin Dose 100 MCG; Start 01/27/19 at 07:00 Metoclopramide HCl (Reglan) 5 mg BEFORE MEALS PO Last administered on 02/06/19 06:46; Admin Dose 5 MG; Start 01/27/19 at 07:30 Metoprolol Tartrate (Lopressor) 25 mg BID PO Last administered on 02/06/19 09:31; Admin Dose 25 MG; Start 01/26/19 at 21:00 Multivit/Ca Carb/ B Cmplx/FA/Prenat (Wendi-Cathi) 1 tab DAILY PO Last administered on 02/06/19 09:31; Admin Dose 1 TAB; Start 01/27/19 at 09:00 Ondansetron HCl (Zofran Tab) 4 mg Q6H PRN PO NAUSEA AND/OR VOMITING Last administered on 01/30/19 10:43; Admin Dose 4 MG; Start 01/26/19 at 20:00 Pantoprazole (Protonix Tab) 40 mg DAILY PO Last administered on 02/06/19 09:31; Admin Dose 40 MG; Start 01/27/19 at 09:00 Polyethylene Glycol (Miralax) 17 gm DAILY PO Last administered on 02/06/19 09:31; Admin Dose 17 GM; Start 01/27/19 at 09:00 Prednisolone Acetate (Pred-Forte 1%) 1 drop BID RIGHT EYE Last administered on 02/06/19 09:31; Admin Dose 1 DROP; Start 01/26/19 at 21:00 Zinc Sulfate (Zinc Sulfate) 220 mg DAILY PO Last administered on 02/06/19 09:31; Admin Dose 220 MG; Start 01/27/19 at 09:00 Insulin Aspart (Novolog Insulin Pen) NOVOLOG *MODERATE* ALGORITHM WITH MEALS BEDTIME SC Last administered on 02/04/19 17:37; Admin Dose 2 UNIT; Start 01/26/19 at 21:00 Heparin Sodium (Porcine) (Heparin (5000 Units/1ml)) 5,000 unit BID SC Last administered on 02/06/19 11:12; Admin Dose 5,000 UNIT; Start 01/26/19 at 21:00 Morphine Sulfate (morphine) 2 mg Q4H PRN IV SEVERE PAIN LEVEL 7-10 Last administered on 02/06/19 02:37; Admin Dose 2 MG; Start 01/26/19 at 20:30 Miscellaneous Information 1 ea NOTE XX ; Start 01/26/19 at 23:45 Glucose (Glutose) 15 gm Q15M PRN PO DECREASED GLUCOSE; Start 01/26/19 at 23:45 Glucose (Glutose) 22.5 gm Q15M PRN PO DECREASED GLUCOSE; Start 01/26/19 at 23:45 Dextrose (D50w Syringe) 25 ml Q15M PRN IV DECREASED GLUCOSE Last administered on 01/28/19 07:50; Admin Dose 25 ML; Start 01/26/19 at 23:45 Dextrose (D50w Syringe) 50 ml Q15M PRN IV DECREASED GLUCOSE; Start 01/26/19 at 23:45 Glucagon (Glucagen) 1 mg Q15M PRN IM DECREASED GLUCOSE; Start 01/26/19 at 23:45 Glucose (Glutose) 15 gm Q15M PRN BUCCAL DECREASED GLUCOSE; Start 01/26/19 at 23:45 Alteplase, Recombinant (Cathflo (Activase)) 2 mg MAY REPEAT X1 PRN CATHETER IF CATHETER REMAINS OCCULUDED Last administered on 02/02/19 23:09; Admin Dose 2 MG; Start 01/27/19 at 07:00 Tramadol HCl (Ultram) 50 mg Q6H PO Last administered on 02/06/19 09:58; Admin Dose 50 MG; Start 01/27/19 at 08:00 Collagenase (Santyl) 1 applic DAILY TOP Last administered on 02/06/19 09:30; Admin Dose 1 APPLIC; Start 01/28/19 at 09:00 Sodium Hypochlorite (Dakin'S (Dilute )) 1 applic DAILY IRR Last adm inistered on 02/06/19 09:33; Admin Dose 1 APPLIC; Start 01/28/19 at 09:00 Lorazepam (Ativan) 1 mg Q8H PRN PO ANXIETY; Start 01/27/19 at 22:30 Mupirocin (Bactroban) 1 applic BID TOP Last administered on 02/06/19 09:31; Admin Dose 1 APPLIC; Start 01/28/19 at 21:00 Epoetin Indra (Epogen (Esrd)) 8,000 units TuThSa@17 SC Last administered on 02/04/19 17:26; Admin Dose 8,000 UNITS; Start 01/30/19 at 17:00 Megestrol Acetate (Megace Susp) 400 mg DAILY PO Last administered on 02/06/19 09:31; Admin Dose 400 MG; Start 01/30/19 at 14:30 Linezolid (Zyvox) 600 mg BID PO Last administered on 02/06/19 09:32; Admin Dose 600 MG; Start 01/31/19 at 16:00 Amikacin Sulfate (Amikacin Iv Per Pharmacy) AMIKACIN PER PHARMACY NOTE XX ; Start 01/31/19 at 15:30 Amikacin Sulfate 300 mg/Sodium Chloride 101.2 ml @ 102 mls/hr AFTER DIALYSIS IVPB Last administered on 02/03/19at 20:19; Admin Dose 102 MLS/HR; Start 02/01/19 at 16:30 Lactulose (Enulose) 20 gm Q6H PRN PO CONSTIPATION; Start 02/04/19 at 11:00 Ondansetron HCl (Zofran Inj) 4 mg Q6H PRN IV NAUSEA AND/OR VOMITING Last administered on 02/04/19at 12:09; Admin Dose 4 MG; Start 02/04/19 at 12:00 Hydralazine HCl (Apresoline) 100 mg Q8 PO Last administered on 02/06/19at 06:44; Admin Dose 100 MG; Start 02/04/19 at 14:00 LINDA SCHAEFER NP Feb 06, 2019 11:22
--- NOTE | 2019-02-06 11:28 | CONS ---
Consult Date/Type/Reason Admit Date/Time Jan 26, 2019 at 17:32 Initial Consult Date 01/27/19 Requesting Provider: ALEXUS VALENCIA MD Date/Time of Note DATE: 02/06/19 TIME: 11:26 Subjective NO acute events - pt comfortable - no ectopy on tele - labile Bp, will re-check ROS: No fever, no chills, no nausea, no vomiting, no diarrhea/constipation No recent weight changes No chest pain, no PND, no orthopnea - mild SOB per nurse No dizziness, blurred vision No thirst, no heat or cold intolerance Objective Vitals Vital Signs Date Temp Pulse Resp B/P (MAP) Pulse Ox O2 O2 Flow FiO2 Time Delivery Rate 02/06/19 Nasal 2.0 10:54 Cannula 02/06/19 67 08:26 02/06/19 98.6 16 156/68 92 08:13 (97) Intake and Output 02/05/19 02/05/19 02/06/19 1515:00 23:00 07:00 IntakeIntake Total 500 ml 400 ml BalanceBalance 500 ml 400 ml Exam General: WN/WD/NAD, AOx 1 eyes open HEENT: Unicetric/atraumatic/EOMI (does not follow commands) NECK: JVD elevated, no thyromegaly Lymph: no lymphadenopathy HEART: regular with no S3, II/ systolic murmur at apex, PMI L LUNGS: Coarse sounds ABD: soft, NT, ND, +BS : Intact Neuro: non focal SKIN: chronic changes EXT: trace edema Results/Medications Result Diagram: 02/05/19 0609 02/05/19 0609 Results 24 hrs Laboratory Tests Test 02/05/19 12:13 02/05/19 17:37 02/05/19 21:51 02/06/19 07:46 Bedside Glucose 122 128 109 99 Home Meds Reported Medications Insulin Lispro (Humalog Kwikpen U-100) 100 Unit/1 Ml Insuln.pen, 0 SQ SLIDING SCALE, EA IF BS 151-200=1 UNIT,201-250=2 UNITS,251-300=3 UNITS,301-350=4 UNITS,351-400=5 UNITS, IF >400=6 UNITS AND CALL 01/26/19 Dariel Borrero/[place] Oil (Venelex Ointment) 60 Gm Oint..gm., 1 APPLIC TOP NEEDED, #1 TUB 01/26/19 Multivit/Ca Carb/B Cmplx/Fa* (Wendi-Cathi*) 1 Tab Tab, 1 TAB PO DAILY, TAB 01/26/19 Metoclopramide* (Reglan*) 5 Mg Tablet, 5 MG PO BEFORE MEALS, TAB 01/26/19 Protein Supplement (Promod) 946 Ml Liquid, 30 ML PO DAILY 01/26/19 Lactose-Free Food (Nutritional Supplement) 237 Ml Liquid, 1 PO BID 01/26/19 Morphine Sulfate* (Morphine* Liq) 10 Mg/0.5 Ml Disp.syrin, 6 MG SL Q4H PRN for PAIN 7-08/19, ML 01/26/19 Ipratropium-Albuterol (Ipratropium-Albuterol) 0.5-3 Mg/3 Ml Ampul.neb, 3 ML INHALATION TID, #30 VIAL 01/26/19 Heparin Sod,Porcine/0.9 % NaCl (Heparin 5,000 Unit/5 ml-Ns) 5,000 Unit/5 Ml Syringe, 5000 UNIT IV Q8H 01/26/19 Ondansetron Hcl* (Zofran*) 4 Mg Tablet, 4 MG PO Q6H PRN for NAUSEA AND OR VOMITING, TAB 01/26/19 Citalopram Hydrobromide* (Citalopram Hydrobromide*) 20 Mg Tablet, 20 MG PO DAILY, #30 TAB 01/26/19 Bisacodyl* (Bisacodyl*) 5 Mg Tablet.dr, 10 MG PO Q24H PRN for CONSTIPATION, TAB 01/26/19 Diphenhydramine Hcl* (Diphenhydramine Hcl*) 25 Mg Capsule, 25 MG PO Q6 PRN for ITCHING, CAP 01/26/19 Polyethylene Glycol* (Polyethylene Glycol*) 17 Gm Powd.pack, 17 GM PO DAILY, #30 PACKET 11/18/18 Pantoprazole* (Pantoprazole*) 40 Mg Tablet.dr, 40 MG PO DAILY, TAB 11/18/18 Metoprolol Tartrate* (Lopressor*) 25 Mg Tablet, 25 MG PO BID, #60 TAB HOLD IF SBP<110 OR HR<60 11/18/18 Losartan Potassium* (Losartan Potassium*) 50 Mg Tablet, 50 MG PO BID, TAB HOLD IFSBP<110 OR HR<60 11/18/18 Levothyroxine Sodium* (Levothyroxine Sodium*) 100 Mcg Tablet, 100 MCG PO BEFORE BREAKFAST, #30 TAB 11/18/18 Insulin Detemir (Levemir) 100 Unit/1 Ml Vial, 6 UNITS SQ QHS 11/18/18 Folic Acid* (Folic Acid*) 1 Mg Tablet, 1 MG PO DAILY, TAB 11/18/18 Zinc Sulfate* (Zinc Sulfate*) 220 Mg Cap, 220 MG PO DAILY, CAP 11/18/18 Ascorbic Acid (Vitamin C) 500 Mg Tab, 500 MG PO DAILY, TAB 11/18/18 Acetaminophen* (Acetaminophen*) 325 Mg Tablet, 325 MG PO Q4H PRN for PAIN AND OR ELEVATED TEMP, #30 TAB FOR MILD PAIN -01/1711/18/18 Trazodone Hcl* (Trazodone Hcl*) 50 Mg Tablet, 50 MG PO QHS, #30 TAB 11/18/18 Tramadol HCl (Tramadol HCl) 50 Mg Tablet, 50 MG PO Q6H PRN for PAIN, #120 TAB 11/18/18 Prednisolone Acetate* (Pred Forte*) 5 Ml Susp, 1 DROP RIGHT EYE BID, EA 11/18/18 Docusate Sodium* (Colace*) 100 Mg Capsule, 100 MG PO BID, #30 CAP 11/18/18 Atorvastatin Calcium* (Atorvastatin Calcium*) 20 Mg Tablet, 20 MG PO QHS, #30 TAB 11/18/18 Amlodipine Besylate* (Norvasc*) 5 Mg Tablet, 5 MG PO QHS, TAB HOLD IF SBP<110 OR HR<60 11/18/18 Amiodarone Hcl* (Amiodarone Hcl*) 200 Mg Tablet, 200 MG PO DAILY, #30 TAB 11/18/18 Medications Current Medications Amiodarone HCl (Cordarone) 200 mg DAILY PO Last administered on 02/06/19at 09:32; Admin Dose 200 MG; Start 01/27/19 at 09:00 Ascorbic Acid (Vitamin C) 500 mg DAILY PO Last administered on 02/06/19at 09:32; Admin Dose 500 MG; Start 01/27/19 at 09:00 Atorvastatin Calcium (Lipitor) 20 mg QHS PO Last administered on 02/05/19at 21:53; Admin Dose 20 MG; Start 01/26/19 at 21:00 Bisacodyl (Dulcolax) 10 mg Q24H PRN PO CONSTIPATION; Start 01/26/19 at 20:00 Citalopram Hydrobromide (Celexa) 20 mg DAILY PO Last administered on 02/06/19 09:32; Admin Dose 20 MG; Start 01/27/19 at 09:00 Docusate Sodium (Colace) 100 mg BID PO Last administered on 02/06/19 09:31; Ad min Dose 100 MG; Start 01/26/19 at 21:00 Folic Acid (Folic Acid) 1 mg DAILY PO Last administered on 02/06/19 09:31; Admin Dose 1 MG; Start 01/27/19 at 09:00 Levothyroxine Sodium (Synthroid) 100 mcg BEFORE BREAKFAST PO Last administered on 02/06/19 06:43; Admin Dose 100 MCG; Start 01/27/19 at 07:00 Metoclopramide HCl (Reglan) 5 mg BEFORE MEALS PO Last administered on 02/06/19 06:46; Admin Dose 5 MG; Start 01/27/19 at 07:30 Metoprolol Tartrate (Lopressor) 25 mg BID PO Last administered on 02/06/19 09:31; Admin Dose 25 MG; Start 01/26/19 at 21:00 Multivit/Ca Carb/ B Cmplx/FA/Prenat (Wendi-Cathi) 1 tab DAILY PO Last administered on 02/06/19 09:31; Admin Dose 1 TAB; Start 01/27/19 at 09:00 Ondansetron HCl (Zofran Tab) 4 mg Q6H PRN PO NAUSEA AND/OR VOMITING Last administered on 01/30/19 10:43; Admin Dose 4 MG; Start 01/26/19 at 20:00 Pantoprazole (Protonix Tab) 40 mg DAILY PO Last administered on 02/06/19 09:31; Admin Dose 40 MG; Start 01/27/19 at 09:00 Polyethylene Glycol (Miralax) 17 gm DAILY PO Last administered on 02/06/19 09:31; Admin Dose 17 GM; Start 01/27/19 at 09:00 Prednisolone Acetate (Pred-Forte 1%) 1 drop BID RIGHT EYE Last administered on 02/06/19 09:31; Admin Dose 1 DROP; Start 01/26/19 at 21:00 Zinc Sulfate (Zinc Sulfate) 220 mg DAILY PO Last administered on 02/06/19 09:31; Admin Dose 220 MG; Start 01/27/19 at 09:00 Insulin Aspart (Novolog Insulin Pen) NOVOLOG *MODERATE* ALGORITHM WITH MEALS BEDTIME SC Last administered on 02/04/19 17:37; Admin Dose 2 UNIT; Start 01/26/19 at 21:00 Heparin Sodium (Porcine) (Heparin (5000 Units/1ml)) 5,000 unit BID SC Last administered on 02/06/19 11:12; Admin Dose 5,000 UNIT; Start 01/26/19 at 21:00 Morphine Sulfate (morphine) 2 mg Q4H PRN IV SEVERE PAIN LEVEL 7-10 Last administered on 02/06/19 02:37; Admin Dose 2 MG; Start 01/26/19 at 20:30 Miscellaneous Information 1 ea NOTE XX ; Start 01/26/19 at 23:45 Glucose (Glutose) 15 gm Q15M PRN PO DECREASED GLUCOSE; Start 01/26/19 at 23:45 Glucose (Glutose) 22.5 gm Q15M PRN PO DECREASED GLUCOSE; Start 01/26/19 at 23:45 Dextrose (D50w Syringe) 25 ml Q15M PRN IV DECREASED GLUCOSE Last administered on 01/28/19 07:50; Admin Dose 25 ML; Start 01/26/19 at 23:45 Dextrose (D50w Syringe) 50 ml Q15M PRN IV DECREASED GLUCOSE; Start 01/26/19 at 23:45 Glucagon (Glucagen) 1 mg Q15M PRN IM DECREASED GLUCOSE; Start 01/26/19 at 23:45 Glucose (Glutose) 15 gm Q15M PRN BUCCAL DECREASED GLUCOSE; Start 01/26/19 at 23:45 Alteplase, Recombinant (Cathflo (Activase)) 2 mg MAY REPEAT X1 PRN CATHETER IF CATHETER REMAINS OCCULUDED Last administered on 02/02/19 23:09; Admin Dose 2 MG; Start 01/27/19 at 07:00 Tramadol HCl (Ultram) 50 mg Q6H PO Last administered on 02/06/19 09:58; Admin Dose 50 MG; Start 01/27/19 at 08:00 Collagenase (Santyl) 1 applic DAILY TOP Last administered on 02/06/19 09:30; Admin Dose 1 APPLIC; Start 01/28/19 at 09:00 Sodium Hypochlorite (Dakin'S (Dilute )) 1 applic DAILY IRR Last administered on 02/06/19 09:33; Admin Dose 1 APPLIC; Start 01/28/19 at 09:00 Lorazepam (Ativan) 1 mg Q8H PRN PO ANXIETY; Start 01/27/19 at 22:30 Mupirocin (Bactroban) 1 applic BID TOP Last administered on 02/06/19 09:31; Admin Dose 1 APPLIC; Start 01/28/19 at 21:00 Epoetin Indra (Epogen (Esrd)) 8,000 units TuThSa@17 SC Last administered on 02/04/19 17:26; Admin Dose 8,000 UNITS; Start 01/30/19 at 17:00 Megestrol Acetate (Megace Susp) 400 mg DAILY PO Last administered on 02/06/19 09:31; Admin Dose 400 MG; Start 01/30/19 at 14:30 Linezolid (Zyvox) 600 mg BID PO Last administered on 02/06/19 09:32; Admin Dose 600 MG; Start 01/31/19 at 16:00 Amikacin Sulfate (Amikacin Iv Per Pharmacy) AMIKACIN PER PHARMACY NOTE XX ; Start 01/31/19 at 15:30 Amikacin Sulfate 300 mg/Sodium Chloride 101.2 ml @ 102 mls/hr AFTER DIALYSIS IVPB Last administered on 02/03/19 20:19; Admin Dose 102 MLS/HR; Start 02/01/19 at 16:30 Lactulose (Enulose) 20 gm Q6H PRN PO CONSTIPATION; Start 02/04/19 at 11:00 Ondansetron HCl (Zofran Inj) 4 mg Q6H PRN IV NAUSEA AND/OR VOMITING Last administered on 02/04/19 12:09; Admin Dose 4 MG; Start 02/04/19 at 12:00 Hydralazine HCl (Apresoline) 100 mg Q8 PO Last administered on 02/06/19 06:44; Admin Dose 100 MG; Start 02/04/19 at 14:00 Assessment/Plan Hospital Course (Demo Recall) 1. Preop evaluation. The patient to undergo EGD whose 2D echo I just read revealing EF lower limits of normal, approximately 50% with no significant contraindicated valvular lesions and negative troponin x1 since admit, patient is okay to proceed at a moderate cardiovascular risk. Now post-op s/p endoscopy and debridement of decub ulcer - well tolerated - no tachy-cassie arrhythmia on tele now Con't to recover. 2. Congestive heart failure, diastolic acute on chronic- better now, CHRONIC - better fluid status now. 3. Hypertension - BP in [place] now - re-check. 4. Cardiac arrhythmia, on amiodarone, in sinus rhythm by EKG - sinus now 5. Hypothyroidism. 6. Diabetes mellitus- on meds, keep euglycemic - onmeds. 7. Nausea and vomiting. 8. Generalized weakness. 9. Decubitus ulcers s/p debridement - will monitor clinically 10. Anemia- H/H stable - no bleeding now 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 FAY VORA MD Feb 06, 2019 11:28
--- NOTE | 2019-02-06 12:38 | CONS ---
Assessment/Plan Assessment/Plan Assessment/Plan (Daily) - ESRD on Hemodialysis - Anemia of Chronic Disease - DM / DM Nephropathy - CAD / CHF - Hypoalbuminia - Hypothyroid - Failure to thrive - Leukocytosis - Non healing wound PLAN: Bedside dialysis Aim for UD ~ 1-2 liter as tolerates IV Antibiotics Local wound care Follow up on H/H ( on long acting EPO as out patient ) High protein diet / Supplements EPO SQ Consultation Date/Type/Reason Admit Date/Time Jan 26, 2019 at 17:32 Initial Consult Date 01/27/19 Type of Consult - Nephrology ( Dialysis Dependent ) Requesting Provider: ALEXUS VALENCIA MD Date/Time of Note DATE: 02/06/19 TIME: 12:38 24 HR Interval Summary Constitutional: no complaints, improved Exam/Review of Systems Exam Vitals Vital Signs Date Temp Pulse Resp B/P (MAP) Pulse Ox O2 O2 Flow FiO2 Time Delivery Rate 02/06/19 68 12:11 02/06/19 98.9 16 167/74 98 11:34 (105) 02/06/19 Nasal 2.0 10:54 Cannula Intake and Output 02/05/19 02/05/19 02/06/19 1414:59 22:59 06:59 IntakeIntake Total 500 ml 400 ml BalanceBalance 500 ml 400 ml Constitutional: alert Psych: no complaints Eyes: nl conjunctiva Respiratory: crackles/rales Cardiovascular: regular rate and rhythm, edema, systolic murmur Gastrointestinal: soft Results Result Diagram: 02/05/19 0609 02/05/19 0609 Results 24hrs Laboratory Tests Test 02/05/19 17:37 02/05/19 21:51 02/06/19 07:46 02/06/19 11:29 Bedside Glucose 128 109 99 103 Medications Medication Current Medications Amiodarone HCl (Cordarone) 200 mg DAILY PO Last administered on 02/06/19at 09:32; Admin Dose 200 MG; Start 01/27/19 at 09:00 Ascorbic Acid (Vitamin C) 500 mg DAILY PO Last administered on 02/06/19at 09:32; Admin Dose 500 MG; Start 01/27/19 at 09:00 Atorvastatin Calcium (Lipitor) 20 mg QHS PO Last administered on 02/05/19at 21:53; Admin Dose 20 MG; Start 01/26/19 at 21:00 Bisacodyl (Dulcolax) 10 mg Q24H PRN PO CONSTIPATION; Start 01/26/19 at 20:00 Citalopram Hydrobromide (Celexa) 20 mg DAILY PO Last administered on 02/06/19 09:32; Admin Dose 20 MG; Start 01/27/19 at 09:00 Docusate Sodium (Colace) 100 mg BID PO Last administered on 02/06/19 09:31; Admin Dose 100 MG; Start 01/26/19 at 21:00 Folic Acid (Folic Acid) 1 mg DAILY PO Last administered on 02/06/19 09:31; Admin Dose 1 MG; Start 01/27/19 at 09:00 Levothyroxine Sodium (Synthroid) 100 mcg BEFORE BREAKFAST PO Last administered on 02/06/19 06:43; Admin Dose 100 MCG; Start 01/27/19 at 07:00 Metoclopramide HCl (Reglan) 5 mg BEFORE MEALS PO Last administered on 02/06/19 12:25; Admin Dose 5 MG; Start 01/27/19 at 07:30 Metoprolol Tartrate (Lopressor) 25 mg BID PO Last administered on 02/06/19 09:31; Admin Dose 25 MG; Start 01/26/19 at 21:00 Multivit/Ca Carb/ B Cmplx/FA/Prenat (Wendi-Cathi) 1 tab DAILY PO Last administered on 02/06/19 09:31; Admin Dose 1 TAB; Start 01/27/19 at 09:00 Ondansetron HCl (Zofran Tab) 4 mg Q6H PRN PO NAUSEA AND/OR VOMITING Last administered on 01/30/19 10:43; Admin Dose 4 MG; Start 01/26/19 at 20:00 Pantoprazole (Protonix Tab) 40 mg DAILY PO Last administered on 02/06/19 09:31; Admin Dose 40 MG; Start 01/27/19 at 09:00 Polyethylene Glycol (Miralax) 17 gm DAILY PO Last administered on 02/06/19 09:31; Admin Dose 17 GM; Start 01/27/19 at 09:00 Prednisolone Acetate (Pred-Forte 1%) 1 drop BID RIGHT EYE Last administered on 02/06/19 09:31; Admin Dose 1 DROP; Start 01/26/19 at 21:00 Zinc Sulfate (Zinc Sulfate) 220 mg DAILY PO Last administered on 02/06/19 09:31; Admin Dose 220 MG; Start 01/27/19 at 09:00 Insulin Aspart (Novolog Insulin Pen) NOVOLOG *MODERATE* ALGORITHM WITH MEALS BEDTIME SC Last administered on 02/04/19 17:37; Admin Dose 2 UNIT; Start 01/26/19 at 21:00 Heparin Sodium (Porcine) (Heparin (5000 Units/1ml)) 5,000 unit BID SC Last administered on 02/06/19 11:12; Admin Dose 5,000 UNIT; Start 01/26/19 at 21:00 Morphine Sulfate (morphine) 2 mg Q4H PRN IV SEVERE PAIN LEVEL 7-10 Last administered on 02/06/19 02:37; Admin Dose 2 MG; Start 01/26/19 at 20:30 Miscellaneous Information 1 ea NOTE XX ; Start 01/26/19 at 23:45 Glucose (Glutose) 15 gm Q15M PRN PO DECREASED GLUCOSE; Start 01/26/19 at 23:45 Glucose (Glutose) 22.5 gm Q15M PRN PO DECREASED GLUCOSE; Start 01/26/19 at 23:45 Dextrose (D50w Syringe) 25 ml Q15M PRN IV DECREASED GLUCOSE Last administered on 01/28/19 07:50; Admin Dose 25 ML; Start 01/26/19 at 23:45 Dextrose (D50w Syringe) 50 ml Q15M PRN IV DECREASED GLUCOSE; Start 01/26/19 at 23:45 Glucagon (Glucagen) 1 mg Q15M PRN IM DECREASED GLUCOSE; Start 01/26/19 at 23:45 Glucose (Glutose) 15 gm Q15M PRN BUCCAL DECREASED GLUCOSE; Start 01/26/19 at 23:45 Alteplase, Recombinant (Cathflo (Activase)) 2 mg MAY REPEAT X1 PRN CATHETER IF CATHETER REMAINS OCCULUDED Last administered on 02/02/19 23:09; Admin Dose 2 MG; Start 01/27/19 at 07:00 Tramadol HCl (Ultram) 50 mg Q6H PO Last administered on 02/06/19 09:58; Admin Dose 50 MG; Start 01/27/19 at 08:00 Collagenase (Santyl) 1 applic DAILY TOP Last administered on 02/06/19 09:30; Admin Dose 1 APPLIC; Start 01/28/19 at 09:00 Sodium Hypochlorite (Dakin'S (Dilute )) 1 applic DAILY IRR Last administered on 02/06/19 09:33; Admin Dose 1 APPLIC; Start 01/28/19 at 09:00 Lorazepam (Ativan) 1 mg Q8H PRN PO ANXIETY; Start 01/27/19 at 22:30 Mupirocin (Bactroban) 1 applic BID TOP Last administered on 02/06/19 09:31; Admin Dose 1 APPLIC; Start 01/28/19 at 21:00 Epoetin Indra (Epogen (Esrd)) 8,000 units TuThSa@17 SC Last administered on 02/04/19 17:26; Admin Dose 8,000 UNITS; Start 01/30/19 at 17:00 Megestrol Acetate (Megace Susp) 400 mg DAILY PO Last administered on 02/06/19 09:31; Admin Dose 400 MG; Start 01/30/19 at 14:30 Linezolid (Zyvox) 600 mg BID PO Last administered on 02/06/19 09:32; Admin Dose 600 MG; Start 01/31/19 at 16:00 Amikacin Sulfate (Amikacin Iv Per Pharmacy) AMIKACIN PER PHARMACY NOTE XX ; Start 01/31/19 at 15:30 Amikacin Sulfate 300 mg/Sodium Chloride 101.2 ml @ 102 mls/hr AFTER DIALYSIS IVPB Last administered on 02/03/19 20:19; Admin Dose 102 MLS/HR; Start 02/01/19 at 16:30 Lactulose (Enulose) 20 gm Q6H PRN PO CONSTIPATION; Start 02/04/19 at 11:00 Ondansetron HCl (Zofran Inj) 4 mg Q6H PRN IV NAUSEA AND/OR VOMITING Last administered on 02/04/19 12:09; Admin Dose 4 MG; Start 02/04/19 at 12:00 Hydralazine HCl (Apresoline) 100 mg Q8 PO Last administered on 02/06/19 06:44; Admin Dose 100 MG; Start 02/04/19 at 14:00 ANIBAL ALMANZAR MD Feb 06, 2019 12:38
--- NOTE | 2019-02-06 16:39 | PN ---
Date/Time of Note Date/Time of Note DATE: 02/06/19 TIME: 16:39 Assessment/Plan VTE Prophylaxis [place] [facility] [place]: 9 [place]CD applied [place] [facility] [place] Yes SCD contraindicated: other Pharmacological prophylaxis: other Pharm contraindication: other Lines/Catheters IV C[facility]ter Type (from [facility]): PICC Line Central line still needed: Yes Urinary Cath still in place: No Assessment/Plan Assessment/Plan -Sacral and bilateral ischial infected wounds. Status post sacrum and right ischial debridement 01/29/19. - per Dr. Almanza in general surgery consultation. - Continue antibiotics per ID- Zyvox and amikacin. - per Dr. Guevara in infection disease consultation. -Left lower lobe infiltrate -MRSA of nares colonization. Contact isolation. -Abdominal pain. Status post EGD with notion of gastritis. Continue PPI. -Moderate bilateral pleural effusion slightly improved per chest x-ray from 02/03/19. -Hemodialysis dependent end-stage renal disease. Continue on hemodialysis. - per Dr. Mcdaniel in nephrology standpoint. -Diabetes mellitus type 2. - Glycemic control -Hypothyroidism, continue levothyroxine -Hypertension. -Hyperlipidemia, continue statin -Anemia -Right eye blindness. Further recommendations based on clinical course. Plan of care discussed with Dr. Mandel. Result Diagram: 02/05/19 0609 02/05/19 0609 Results 24hrs Laboratory Tests Test 02/05/19 17:37 02/05/19 21:51 02/06/19 07:46 02/06/19 11:29 Bedside Glucose 128 109 99 103 Subjective 24 Hr Interval Summary Free Text/Dictation nad WBC elevated today-ID follows Cr elevated- Ritual Circumciser follows infected wounds- surgery follows afebrile seems comfortable no new issues reported last night Constitutional: requiring O2 Eyes: no complaints ENT: no complaints Respiratory: no complaints Cardiovascular: no complaints Gastrointestinal: no complaints Skin: other (back decubs ) Exam/Review of Systems Exam Vitals Vital Signs Date Temp Pulse Resp B/P (MAP) Pulse Ox O2 O2 Flow FiO2 Time Delivery Rate 02/06/19 98.5 69 16 142/63 92 15:58 (89) 02/06/19 2.0 15:15 02/06/19 Nasal 10:54 Cannula Intake and Output 02/05/19 02/05/19 02/06/19 1515:00 23:00 07:00 IntakeIntake Total 500 ml 400 ml BalanceBalance 500 ml 400 ml Constitutional: alert, well developed Psych: nl mood/affect Eyes: nl lids, nl sclera ENMT: nl external ears & nose Neck: non-tender Respiratory: clear to auscultation Cardiovascular: nl pulses, other (s1s2) Gastrointestinal: soft, non-tender Musculoskeletal: muscle weakness Extremities: normal pulses Neurological: nl speech Lymph: nontender Results Results 24hrs Laboratory Tests Test 02/05/19 17:37 02/05/19 21:51 02/06/19 07:46 02/06/19 11:29 Bedside Glucose 128 109 99 103 Medications Medication Current Medications Amiodarone HCl (Cordarone) 200 mg DAILY PO Last administered on 02/06/19 09:32; Admin Dose 200 MG; Start 01/27/19 at 09:00 Ascorbic Acid (Vitamin C) 500 mg DAILY PO Last administered on 02/06/19 09:32; Admin Dose 500 MG; Start 01/27/19 at 09:00 Atorvastatin Calcium (Lipitor) 20 mg QHS PO Last administered on 02/05/19 21:53; Admin Dose 20 MG; Start 01/26/19 at 21:00 Bisacodyl (Dulcolax) 10 mg Q24H PRN PO CONSTIPATION; Start 01/26/19 at 20:00 Citalopram Hydrobromide (Celexa) 20 mg DAILY PO Last administered on 02/06/19 09:32; Admin Dose 20 MG; Start 01/27/19 at 09:00 Docusate Sodium (Colace) 100 mg BID PO Last administered on 02/06/19 09:31; Admin Dose 100 MG; Start 01/26/19 at 21:00 Folic Acid (Folic Acid) 1 mg DAILY PO Last administered on 02/06/19 09:31; Admin Dose 1 MG; Start 01/27/19 at 09:00 Levothyroxine Sodium (Synthroid) 100 mcg BEFORE BREAKFAST PO Last administered on 02/06/19 06:43; Admin Dose 100 MCG; Start 01/27/19 at 07:00 Metoclopramide HCl (Reglan) 5 mg BEFORE MEALS PO Last administered on 12:25; Admin Dose 5 MG; Start 01/27/19 at 07:30 Metoprolol Tartrate (Lopressor) 25 mg BID PO Last administered on 02/06/19 09:31; Admin Dose 25 MG; Start 01/26/19 at 21:00 Multivit/Ca Carb/ B Cmplx/FA/Prenat (Wendi-Cathi) 1 tab DAILY PO Last administered on 02/06/19 09:31; Admin Dose 1 TAB; Start 01/27/19 at 09:00 Ondansetron HCl (Zofran Tab) 4 mg Q6H PRN PO NAUSEA AND/OR VOMITING Last administered on 01/30/19 10:43; Admin Dose 4 MG; Start 01/26/19 at 20:00 Pantoprazole (Protonix Tab) 40 mg DAILY PO Last administered on 02/06/19 09:31; Admin Dose 40 MG; Start 01/27/19 at 09:00 Polyethylene Glycol (Miralax) 17 gm DAILY PO Last administered on 02/06/19 09:31; Admin Dose 17 GM; Start 01/27/19 at 09:00 Prednisolone Acetate (Pred-Forte 1%) 1 drop BID RIGHT EYE Last administered on 02/06/19 09:31; Admin Dose 1 DROP; Start 01/26/19 at 21:00 Zinc Sulfate (Zinc Sulfate) 220 mg DAILY PO Last administered on 02/06/19 09:31; Admin Dose 220 MG; Start 01/27/19 at 09:00 Insulin Aspart (Novolog Insulin Pen) NOVOLOG *MODERATE* ALGORITHM WITH MEALS BEDTIME SC Last administered on 02/04/19 17:37; Admin Dose 2 UNIT; Start 01/26/19 at 21:00 Heparin Sodium (Porcine) (Heparin (5000 Units/1ml)) 5,000 unit BID SC Last administered on 02/06/19 11:12; Admin Dose 5,000 UNIT; Start 01/26/19 at 21:00 Morphine Sulfate (morphine) 2 mg Q4H PRN IV SEVERE PAIN LEVEL 7-10 Last administered on 02/06/19 15:13; Admin Dose 2 MG; Start 01/26/19 at 20:30 Miscellaneous Information 1 ea NOTE XX ; Start 01/26/19 at 23:45 Glucose (Glutose) 15 gm Q15M PRN PO DECREASED GLUCOSE; Start 01/26/19 at 23:45 Glucose (Glutose) 22.5 gm Q15M PRN PO DECREASED GLUCOSE; Start 01/26/19 at 23:45 Dextrose (D50w Syringe) 25 ml Q15M PRN IV DECREASED GLUCOSE Last administered on 01/28/19at 07:50; Admin Dose 25 ML; Start 01/26/19 at 23:45 Dextrose (D50w Syringe) 50 ml Q15M PRN IV DECREASED GLUCOSE; Start 01/26/19 at 23:45 Glucagon (Glucagen) 1 mg Q15M PRN IM DECREASED GLUCOSE; Start 01/26/19 at 23:45 Glucose (Glutose) 15 gm Q15M PRN BUCCAL DECREASED GLUCOSE; Start 01/26/19 at 23:45 Alteplase, Recombinant (Cathflo (Activase)) 2 mg MAY REPEAT X1 PRN CATHETER IF CATHETER REMAINS OCCULUDED Last administered on 02/02/19 23:09; Admin Dose 2 MG; Start 01/27/19 at 07:00 Tramadol HCl (Ultram) 50 mg Q6H PO Last administered on 02/06/19 14:09; Admin Dose 50 MG; Start 01/27/19 at 08:00 Collagenase (Santyl) 1 applic DAILY TOP Last administered on 02/06/19 09:30; Admin Dose 1 APPLIC; Start 01/28/19 at 09:00 Sodium Hypochlorite (Dakin'S (Dilute )) 1 applic DAILY IRR Last administered on 02/06/19 09:33; Admin Dose 1 APPLIC; Start 01/28/19 at 09:00 Lorazepam (Ativan) 1 mg Q8H PRN PO ANXIETY; Start 01/27/19 at 22:30 Mupirocin (Bactroban) 1 applic BID TOP Last administered on 02/06/19 09:31; Admin Dose 1 APPLIC; Start 01/28/19 at 21:00 Epoetin Indra (Epogen (Esrd)) 8,000 units TuThSa@17 SC Last administered on 02/04/19 17:26; Admin Dose 8,000 UNITS; Start 01/30/19 at 17:00 Megestrol Acetate (Megace Susp) 400 mg DAILY PO Last administered on 02/06/19 09:31; Admin Dose 400 MG; Start 01/30/19 at 14:30 Linezolid (Zyvox) 600 mg BID PO Last administered on 02/06/19 09:32; Admin Dos e 600 MG; Start 01/31/19 at 16:00 Amikacin Sulfate (Amikacin Iv Per Pharmacy) AMIKACIN PER PHARMACY NOTE XX ; Start 01/31/19 at 15:30 Amikacin Sulfate 300 mg/Sodium Chloride 101.2 ml @ 102 mls/hr AFTER DIALYSIS IVPB Last administered on 02/03/19 20:19; Admin Dose 102 MLS/HR; Start 02/01/19 at 16:30 Lactulose (Enulose) 20 gm Q6H PRN PO CONSTIPATION; Start 02/04/19 at 11:00 Ondansetron HCl (Zofran Inj) 4 mg Q6H PRN IV NAUSEA AND/OR VOMITING Last administered on 02/04/19 12:09; Admin Dose 4 MG; Start 02/04/19 at 12:00 Hydralazine HCl (Apresoline) 100 mg Q8 PO Last administered on 02/06/19 14:08; Admin Dose 100 MG; Start 02/04/19 at 14:00 TROY ANTOINE Feb 06, 2019 16:39
[2019-02-06] MEDS: EPOETIN 4000 UNITS/1 ML INJ (ESRD) SC SCH (18:23)
[2019-02-06] MEDS: AMIKACIN 300 MG in SOD CHLORIDE 0.9% 100 ML IVPB SCH (22:54)
[2019-02-06] MEDS: ATORVASTATIN 20 MG TAB PO SCH (22:55)
[2019-02-07] VITALS (12 sets, daily range): BP systolic 149–164; BP diastolic 61–76; PULSE 60–80; RESP 16–20
[2019-02-07] MEDS: traMADol 50 MG TAB PO SCH ×4 (02:17→20:56)
[2019-02-07] MEDS: LEVOTHYROXINE 100 MCG TAB PO SCH (06:25)
[2019-02-07] MEDS: INSULIN ASPART [NOVOLOG] 3 ML PEN SC SCH ×4 (07:52→20:53)
[2019-02-07] MEDS: METOCLOPRAMIDE 5 MG TAB PO SCH ×3 (07:53→17:54)
[2019-02-07] MEDS: DOCUSATE SODIUM 100 MG CAP PO SCH ×2 (09:00→20:51)
[2019-02-07] MEDS: POLYETHYLENE GLYCOL 17 GM PACKET PO SCH (09:00)
[2019-02-07] MEDS: MEGESTROL (40 MG/ML) 10ML CUP PO SCH (09:03)
[2019-02-07] MEDS: COLLAGENASE 5 GM (UD JAR) TOP SCH (09:03)
[2019-02-07] MEDS: ZINC SULFATE 220 MG CAP PO SCH (09:04)
[2019-02-07] MEDS: ASCORBIC ACID 500 MG TAB PO SCH (09:04)
[2019-02-07] MEDS: MULTIVIT/CA CARB/B CMPLX/FA TAB PO SCH (09:04)
[2019-02-07] MEDS: CITALOPRAM 20 MG TAB PO SCH (09:04)
[2019-02-07] MEDS: FOLIC ACID 1 MG TAB PO SCH (09:04)
[2019-02-07] MEDS: ZYVOX 600 MG TAB PO SCH ×2 (09:04→20:50)
[2019-02-07] MEDS: AMIODARONE 200 MG TAB PO SCH (09:04)
[2019-02-07] MEDS: PANTOPRAZOLE (EC) 40 MG TAB PO SCH (09:04)
[2019-02-07] MEDS: MUPIROCIN 2% 22 GM OINT TOP SCH ×2 (09:05→20:52)
[2019-02-07] MEDS: PREDNISOLONE ACET 1% 5 ML OPH RIGHT EYE SCH ×2 (09:05→20:52)
[2019-02-07] MEDS: METOPROLOL 25 MG TAB PO SCH ×2 (09:05→20:50)
[2019-02-07] MEDS: SODIUM HYPOCHLORITE (1/40) 1 LITER BTL IRR SCH (09:06)
[2019-02-07] MEDS: BALSAM PERU/CASTOR OIL 60 GM TUBE TOP SCH ×2 (09:06→20:52)
[2019-02-07] MEDS: HEPARIN 5,000 UNIT/1 ML VIAL SC SCH ×2 (10:34→21:06)
--- NOTE | 2019-02-07 12:47 | CONS ---
Consult Date/Type/Reason Admit Date/Time Jan 26, 2019 at 17:32 Initial Consult Date 01/27/19 Requesting Provider: ALEXUS VALENCIA MD Date/Time of Note DATE: 02/07/19 TIME: 12:45 Subjective NO acute events - pt stable - no CP - in better fluid status - more alert today. ROS: No fever, no chills, no nausea, no vomiting, no diarrhea/constipation No recent weight changes No chest pain, no PND, no orthopnea - improved. No dizziness, blurred vision No thirst, no heat or cold intolerance Objective Vitals Vital Signs Date Temp Pulse Resp B/P (MAP) Pulse Ox O2 O2 Flow FiO2 Time Delivery Rate 02/07/19 70 12:27 02/07/19 98.0 20 164/71 98 12:16 (102) 02/07/19 Nasal 2.0 08:15 Cannula Intake and Output 02/06/19 02/06/19 02/07/19 1515:00 23:00 07:00 IntakeIntake Total 282 ml OutputOutput Total 2400 ml BalanceBalance -2400 ml 282 ml Exam General: WN/WD/NAD, AOx 2-3 more alert now HEENT: Unicetric/atraumatic/EOMI ( follows commands) NECK: JVD elevated, no thyromegaly Lymph: no lymphadenopathy HEART: regular with no S3, II/ systolic murmur at apex LUNGS: Coarse sounds ABD: soft, NT, ND, +BS : Intact Neuro: non focal SKIN: chronic changes EXT: trace edema Results/Medications Result Diagram: 02/05/19 0609 02/05/19 0609 Results 24 hrs Laboratory Tests Test 02/06/19 17:16 02/06/19 22:52 02/07/19 07:51 02/07/19 11:59 Bedside Glucose 115 104 108 139 Home Meds Reported Medications Insulin Lispro (Humalog Kwikpen U-100) 100 Unit/1 Ml Insuln.pen, 0 SQ SLIDING SCALE, EA IF BS 151-200=1 UNIT,201-250=2 UNITS,251-300=3 UNITS,301-350=4 UNITS,351-400=5 UNITS, IF >400=6 UNITS AND CALL 01/26/19 Dariel Borrero/[place] Oil (Venelex Ointment) 60 Gm Oint..gm., 1 APPLIC TOP NEEDED, #1 TUB 01/26/19 Multivit/Ca Carb/B Cmplx/Fa* (Wendi-Cathi*) 1 Tab Tab, 1 TAB PO DAILY, TAB 01/26/19 Metoclopramide* (Reglan*) 5 Mg Tablet, 5 MG PO BEFORE MEALS, TAB 01/26/19 Protein Supplement (Promod) 946 Ml Liquid, 30 ML PO DAILY 01/26/19 Lactose-Free Food (Nutritional Supplement) 237 Ml Liquid, 1 PO BID 01/26/19 Morphine Sulfate* (Morphine* Liq) 10 Mg/0.5 Ml Disp.syrin, 6 MG SL Q4H PRN for PAIN 7-08/19, ML 01/26/19 Ipratropium-Albuterol (Ipratropium-Albuterol) 0.5-3 Mg/3 Ml Ampul.neb, 3 ML INH ALATION TID, #30 VIAL 01/26/19 Heparin Sod,Porcine/0.9 % NaCl (Heparin 5,000 Unit/5 ml-Ns) 5,000 Unit/5 Ml Syringe, 5000 UNIT IV Q8H 01/26/19 Ondansetron Hcl* (Zofran*) 4 Mg Tablet, 4 MG PO Q6H PRN for NAUSEA AND OR VOMITING, TAB 01/26/19 Citalopram Hydrobromide* (Citalopram Hydrobromide*) 20 Mg Tablet, 20 MG PO DAILY, #30 TAB 01/26/19 Bisacodyl* (Bisacodyl*) 5 Mg Tablet.dr, 10 MG PO Q24H PRN for CONSTIPATION, TAB 01/26/19 Diphenhydramine Hcl* (Diphenhydramine Hcl*) 25 Mg Capsule, 25 MG PO Q6 PRN for ITCHING, CAP 01/26/19 Polyethylene Glycol* (Polyethylene Glycol*) 17 Gm Powd.pack, 17 GM PO DAILY, #30 PACKET 11/18/18 Pantoprazole* (Pantoprazole*) 40 Mg Tablet.dr, 40 MG PO DAILY, TAB 11/18/18 Metoprolol Tartrate* (Lopressor*) 25 Mg Tablet, 25 MG PO BID, #60 TAB HOLD IF SBP<110 OR HR<60 11/18/18 Losartan Potassium* (Losartan Potassium*) 50 Mg Tablet, 50 MG PO BID, TAB HOLD IFSBP<110 OR HR<60 11/18/18 Levothyroxine Sodium* (Levothyroxine Sodium*) 100 Mcg Tablet, 100 MCG PO BEFORE BREAKFAST, #30 TAB 11/18/18 Insulin Detemir (Levemir) 100 Unit/1 Ml Vial, 6 UNITS SQ QHS 11/18/18 Folic Acid* (Folic Acid*) 1 Mg Tablet, 1 MG PO DAILY, TAB 11/18/18 Zinc Sulfate* (Zinc Sulfate*) 220 Mg Cap, 220 MG PO DAILY, CAP 11/18/18 Ascorbic Acid (Vitamin C) 500 Mg Tab, 500 MG PO DAILY, TAB 11/18/18 Acetaminophen* (Acetaminophen*) 325 Mg Tablet, 325 MG PO Q4H PRN for PAIN AND OR ELEVATED TEMP, #30 TAB FOR MILD PAIN 1-01/1711/18/18 Trazodone Hcl* (Trazodone Hcl*) 50 Mg Tablet, 50 MG PO QHS, #30 TAB 11/18/18 Tramadol HCl (Tramadol HCl) 50 Mg Tablet, 50 MG PO Q6H PRN for PAIN, #120 TAB 11/18/18 Prednisolone Acetate* (Pred Forte*) 5 Ml Susp, 1 DROP RIGHT EYE BID, EA 11/18/18 Docusate Sodium* (Colace*) 100 Mg Capsule, 100 MG PO BID, #30 CAP 11/18/18 Atorvastatin Calcium* (Atorvastatin Calcium*) 20 Mg Tablet, 20 MG PO QHS, #30 TAB 11/18/18 Amlodipine Besylate* (Norvasc*) 5 Mg Tablet, 5 MG PO QHS, TAB HOLD IF SBP<110 OR HR<60 11/18/18 Amiodarone Hcl* (Amiodarone Hcl*) 200 Mg Tablet, 200 MG PO DAILY, #30 TAB 11/18/18 Medications Current Medications Amiodarone HCl (Cordarone) 200 mg DAILY PO Last administered on 02/07/19at 09:04; Admin Dose 200 MG; Start 01/27/19 at 09:00 Ascorbic Acid (Vitamin C) 500 mg DAILY PO Last administered on 02/07/19at 09:04; Admin Dose 500 MG; Start 01/27/19 at 09:00 Atorvastatin Calcium (Lipitor) 20 mg QHS PO Last administered on 02/06/19 22:55; Admin Dose 20 MG; Start 01/26/19 at 21:00 Bisacodyl (Dulcolax) 10 mg Q24H PRN PO CONSTIPATION; Start 01/26/19 at 20:00 Citalopram Hydrobromide (Celexa) 20 mg DAILY PO Last administered on 02/07/19 09:04; Admin Dose 20 MG; Start 01/27/19 at 09:00 Docusate Sodium (Colace) 100 mg BID PO Last administered on 02/06/19 09:31; Admin Dose 100 MG; Start 01/26/19 at 21:00 Folic Acid (Folic Acid) 1 mg DAILY PO Last administered on 02/07/19 09:04; Admin Dose 1 MG; Start 01/27/19 at 09:00 Levothyroxine Sodium (Synthroid) 100 mcg BEFORE BREAKFAST PO Last administered on 02/07/19 06:25; Admin Dose 100 MCG; Start 01/27/19 at 07:00 Metoclopramide HCl (Reglan) 5 mg BEFORE MEALS PO Last administered on 02/07/19 12:01; Admin Dose 5 MG; Start 01/27/19 at 07:30 Metoprolol Tartrate (Lopressor) 25 mg BID PO Last administered on 02/07/19 09:05; Admin Dose 25 MG; Start 01/26/19 at 21:00 Multivit/Ca Carb/ B Cmplx/FA/Prenat (Wendi-Cathi) 1 tab DAILY PO Last administered on 02/07/19 09:04; Admin Dose 1 TAB; Start 01/27/19 at 09:00 Ondansetron HCl (Zofran Tab) 4 mg Q6H PRN PO NAUSEA AND/OR VOMITING Last administered on 01/30/19 10:43; Admin Dose 4 MG; Start 01/26/19 at 20:00 Pantoprazole (Protonix Tab) 40 mg DAILY PO Last administered on 02/07/19 09:04; Admin Dose 40 MG; Start 01/27/19 at 09:00 Polyethylene Glycol (Miralax) 17 gm DAILY PO Last administered on 02/06/19 09:31; Admin Dose 17 GM; Start 01/27/19 at 09:00 Prednisolone Acetate (Pred-Forte 1%) 1 drop BID RIGHT EYE Last administered on 02/07/19 09:05; Admin Dose 1 DROP; Start 01/26/19 at 21:00 Zinc Sulfate (Zinc Sulfate) 220 mg DAILY PO Last administered on 02/07/19 09:04; Admin Dose 220 MG; Start 01/27/19 at 09:00 Insulin Aspart (Novolog Insulin Pen) NOVOLOG *MODERATE* ALGORITHM WITH MEALS BEDTIME SC Last administered on 02/04/19 17:37; Admin Dose 2 UNIT; Start 01/26/19 at 21:00 Heparin Sodium (Porcine) (Heparin (5000 Units/1ml)) 5,000 unit BID SC Last administered on 02/07/19 10:34; Admin Dose 5,000 UNIT; Start 01/26/19 at 21:00 Morphine Sulfate (morphine) 2 mg Q4H PRN IV SEVERE PAIN LEVEL 7-10 Last administered on 02/06/19 15:13; Admin Dose 2 MG; Start 01/26/19 at 20:30 Miscellaneous Information 1 ea NOTE XX ; Start 01/26/19 at 23:45 Glucose (Glutose) 15 gm Q15M PRN PO DECREASED GLUCOSE; Start 01/26/19 at 23:45 Glucose (Glutose) 22.5 gm Q15M PRN PO DECREASED GLUCOSE; Start 01/26/19 at 23:45 Dextrose (D50w Syringe) 25 ml Q15M PRN IV DECREASED GLUCOSE Last administered on 01/28/19 07:50; Admin Dose 25 ML; Start 01/26/19 at 23:45 Dextrose (D50w Syringe) 50 ml Q15M PRN IV DECREASED GLUCOSE; Start 01/26/19 at 23:45 Glucagon (Glucagen) 1 mg Q15M PRN IM DECREASED GLUCOSE; Start 01/26/19 at 23:45 Glucose (Glutose) 15 gm Q15M PRN BUCCAL DECREASED GLUCOSE; Start 01/26/19 at 23:45 Alteplase, Recombinant (Cathflo (Activase)) 2 mg MAY REPEAT X1 PRN CATHETER IF CATHETER REMAINS OCCULUDED Last administered on 02/02/19 23:09; Admin Dose 2 MG; Start 01/27/19 at 07:00 Tramadol HCl (Ultram) 50 mg Q6H PO Last administered on 02/07/19 07:53; Admin Dose 50 MG; Start 01/27/19 at 08:00 Collagenase (Santyl) 1 applic DAILY TOP Last administered on 02/07/19 09:03; Admin Dose 1 APPLIC; Start 01/28/19 at 09:00 Sodium Hypochlorite (Dakin'S (Dilute )) 1 applic DAILY IRR Last administered on 02/07/19 09:06; Admin Dose 1 APPLIC; Start 01/28/19 at 09:00 Lorazepam (Ativan) 1 mg Q8H PRN PO ANXIETY; Start 01/27/19 at 22:30 Mupirocin (Bactroban) 1 applic BID TOP Last administered on 02/07/19 09:05; Admin Dose 1 APPLIC; Start 01/28/19 at 21:00 Epoetin Indra (Epogen (Esrd)) 8,000 units TuThSa@17 SC Last administered on 02/06/19 18:23; Admin Dose 8,000 UNITS; Start 01/30/19 at 17:00 Megestrol Acetate (Megace Susp) 400 mg DAILY PO Last administered on 02/07/19 09:03; Admin Dose 400 MG; Start 01/30/19 at 14:30 Linezolid (Zyvox) 600 mg BID PO Last administered on 02/07/19 09:04; Admin Dose 600 MG; Start 01/31/19 at 16:00 Amikacin Sulfate (Amikacin Iv Per Pharmacy) AMIKACIN PER PHARMACY NOTE XX ; Start 01/31/19 at 15:30 Amikacin Sulfate 300 mg/Sodium Chloride 101.2 ml @ 102 mls/hr AFTER DIALYSIS IVPB Last administered on 02/06/19 22:54; Admin Dose 102 MLS/HR; Start 02/01/19 at 16:30 Lactulose (Enulose) 20 gm Q6H PRN PO CONSTIPATION; Start 02/04/19 at 11:00 Ondansetron HCl (Zofran Inj) 4 mg Q6H PRN IV NAUSEA AND/OR VOMITING Last administered on 02/04/19 12:09; Admin Dose 4 MG; Start 02/04/19 at 12:00 Hydralazine HCl (Apresoline) 100 mg Q8 PO Last administered on 02/07/19 06:25; Admin Dose 100 MG; Start 02/04/19 at 14:00 Assessment/Plan Hospital Course (Demo Recall) 1. Preop evaluation. The patient to undergo EGD whose 2D echo I just read revealing EF lower limits of normal, approximately 50% with no significant contraindicated valvular lesions and negative troponin x1 since admit, patient is okay to proceed at a moderate cardiovascular risk. Now post-op s/p endoscopy and debridement of decub ulcer - well tolerated - no tachy-cassie arrhythmia on tele now Con't to recover. BETTER now. 2. Congestive heart failure, diastolic acute on chronic- better now, CHRONIC - better fluid status now. Improved by exam. 3. Hypertension - BP in goodrange now - re-check. In range. 4. Cardiac arrhythmia, on amiodarone, in sinus rhythm by EKG - sinus now - rate controlled. 5. Hypothyroidism. 6. Diabetes mellitus- on meds, keep euglycemic - on meds.Keep euglycemic. 7. Nausea and vomiting. 8. Generalized weakness. 9. Decubitus ulcers s/p debridement - will monitor clinically - stable. 10. Anemia- H/H stable - no bleeding now 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 FAY VORA MD Feb 07, 2019 12:47
--- NOTE | 2019-02-07 13:11 | PN ---
Date/Time of Note Date/Time of Note DATE: 02/07/19 TIME: 13:11 Assessment/Plan VTE Prophylaxis Risk score (from Ns)>0 risk: 9 SCD applied (from [facility] [place]): Yes SCD contraindicated: other Pharmacological prophylaxis: other Pharm contraindication: other Lines/Catheters IV Catheter Type (from [facility]): PICC Line Central line still needed: Yes Urinary Cath still in place: No Assessment/Plan Assessment/Plan -Sacral and bilateral ischial infected wounds. Status post sacrum and right ischial debridement 01/29/19. Dr. Almanza is following in general surgery consultation. Continue antibiotics per ID. Dr. Guevara is following in infection disease consultation. Patient is currently on Zyvox and amikacin. -Left lower lobe infiltrate -Abdominal pain. Status post EGD with notion of gastritis. Continue PPI. -Moderate bilateral pleural effusion slightly improved per chest x-ray from 02/03/19. -Hemodialysis dependent end-stage renal disease. Continue on hemodialysis. Dr. Mcdaniel is following from nephrology standpoint. -Diabetes mellitus type 2. Continue Levemir and NovoLog per mild algorithm sliding scale. -Hypothyroidism, continue levothyroxine -Hypertension. -Hyperlipidemia, continue statin -Anemia -MRSA of nares colonization. Contact isolation. -Right eye blindness. Further recommendations based on clinical course. Plan of care discussed with Dr. Mandel. Result Diagram: 02/05/19 0609 02/05/19 0609 Results 24hrs Laboratory Tests Test 02/06/19 17:16 02/06/19 22:52 02/07/19 07:51 02/07/19 11:59 Bedside Glucose 115 104 108 139 Exam/Review of Systems Exam Vitals Vital Signs Date Temp Pulse Resp B/P (MAP) Pulse Ox O2 O2 Flow FiO2 Time Delivery Rate 02/07/19 70 12:27 02/07/19 98.0 20 164/71 98 12:16 (102) 02/07/19 Nasal 2.0 08:15 Cannula Intake and Output 02/06/19 02/06/19 02/07/19 1515:00 23:00 07:00 IntakeIntake Total 282 ml OutputOutput Total 2400 ml BalanceBalance -2400 ml 282 ml Results Results 24hrs Laboratory Tests Test 02/06/19 17:16 02/06/19 22:52 02/07/19 07:51 02/07/19 11:59 Bedside Glucose 115 104 108 139 Medications Medication Current Medications Amiodarone HCl (Cordarone) 200 mg DAILY PO Last administered on 02/07/19 09:04; Admin Dose 200 MG; Start 01/27/19 at 09:00 Ascorbic Acid (Vitamin C) 500 mg DAILY PO Last administered on 02/07/19 09:04; Admin Dose 500 MG; Start 01/27/19 at 09:00 Atorvastatin Calcium (Lipitor) 20 mg QHS PO Last administered on 02/06/19 22:55; Admin Dose 20 MG; Start 01/26/19 at 21:00 Bisacodyl (Dulcolax) 10 mg Q24H PRN PO CONSTIPATION; Start 01/26/19 at 20:00 Citalopram Hydrobromide (Celexa) 20 mg DAILY PO Last administered on 02/07/19 09:04; Admin Dose 20 MG; Start 01/27/19 at 09:00 Docusate Sodium (Colace) 100 mg BID PO Last administered on 02/06/19 09:31; Admin Dose 100 MG; Start 01/26/19 at 21:00 Folic Acid (Folic Acid) 1 mg DAILY PO Last administered on 02/07/19 09:04; Admin Dose 1 MG; Start 01/27/19 at 09:00 Levothyroxine Sodium (Synthroid) 100 mcg BEFORE BREAKFAST PO Last administered on 02/07/19 06:25; Admin Dose 100 MCG; Start 01/27/19 at 07:00 Metoclopramide HCl (Reglan) 5 mg BEFORE MEALS PO Last administered on 02/07/19 at 12:01; Admin Dose 5 MG; Start 01/27/19 at 07:30 Metoprolol Tartrate (Lopressor) 25 mg BID PO Last administered on 02/07/19 09:05; Admin Dose 25 MG; Start 01/26/19 at 21:00 Multivit/Ca Carb/ B Cmplx/FA/Prenat (Wendi-Cathi) 1 tab DAILY PO Last administered on 02/07/19 09:04; Admin Dose 1 TAB; Start 01/27/19 at 09:00 Ondansetron HCl (Zofran Tab) 4 mg Q6H PRN PO NAUSEA AND/OR VOMITING Last admin istered on 01/30/19 10:43; Admin Dose 4 MG; Start 01/26/19 at 20:00 Pantoprazole (Protonix Tab) 40 mg DAILY PO Last administered on 02/07/19 09:04; Admin Dose 40 MG; Start 01/27/19 at 09:00 Polyethylene Glycol (Miralax) 17 gm DAILY PO Last administered on 02/06/19 09:31; Admin Dose 17 GM; Start 01/27/19 at 09:00 Prednisolone Acetate (Pred-Forte 1%) 1 drop BID RIGHT EYE Last administered on 02/07/19 09:05; Admin Dose 1 DROP; Start 01/26/19 at 21:00 Zinc Sulfate (Zinc Sulfate) 220 mg DAILY PO Last administered on 02/07/19 09:04; Admin Dose 220 MG; Start 01/27/19 at 09:00 Insulin Aspart (Novolog Insulin Pen) NOVOLOG *MODERATE* ALGORITHM WITH MEALS BEDTIME SC Last administered on 02/04/19 17:37; Admin Dose 2 UNIT; Start 01/26/19 at 21:00 Heparin Sodium (Porcine) (Heparin (5000 Units/1ml)) 5,000 unit BID SC Last administered on 02/07/19 10:34; Admin Dose 5,000 UNIT; Start 01/26/19 at 21:00 Morphine Sulfate (morphine) 2 mg Q4H PRN IV SEVERE PAIN LEVEL 7-10 Last administered on 02/06/19 15:13; Admin Dose 2 MG; Start 01/26/19 at 20:30 Miscellaneous Information 1 ea NOTE XX ; Start 01/26/19 at 23:45 Glucose (Glutose) 15 gm Q15M PRN PO DECREASED GLUCOSE; Start 01/26/19 at 23:45 Glucose (Glutose) 22.5 gm Q15M PRN PO DECREASED GLUCOSE; Start 01/26/19 at 23:45 Dextrose (D50w Syringe) 25 ml Q15M PRN IV DECREASED GLUCOSE Last administered on 01/28/19 07:50; Admin Dose 25 ML; Start 01/26/19 at 23:45 Dextrose (D50w Syringe) 50 ml Q15M PRN IV DECREASED GLUCOSE; Start 01/26/19 at 23:45 Glucagon (Glucagen) 1 mg Q15M PRN IM DECREASED GLUCOSE; Start 01/26/19 at 23:45 Glucose (Glutose) 15 gm Q15M PRN BUCCAL DECREASED GLUCOSE; Start 01/26/19 at 23:45 Alteplase, Recombinant (Cathflo (Activase)) 2 mg MAY REPEAT X1 PRN CATHETER IF CATHETER REMAINS OCCULUDED Last administered on 02/02/19 23:09; Admin Dose 2 MG; Start 01/27/19 at 07:00 Tramadol HCl (Ultram) 50 mg Q6H PO Last administered on 02/07/19 07:53; Admin Dose 50 MG; Start 01/27/19 at 08:00 Collagenase (Santyl) 1 applic DAILY TOP Last administered on 02/07/19 09:03; Admin Dose 1 APPLIC; Start 01/28/19 at 09:00 Sodium Hypochlorite (Dakin'S (Dilute )) 1 applic DAILY IRR Last administered on 02/07/19 09:06; Admin Dose 1 APPLIC; Start 01/28/19 at 09:00 Lorazepam (Ativan) 1 mg Q8H PRN PO ANXIETY; Start 01/27/19 at 22:30 Mupirocin (Bactroban) 1 applic BID TOP Last administered on 02/07/19 09:05; Ad min Dose 1 APPLIC; Start 01/28/19 at 21:00 Epoetin Indra (Epogen (Esrd)) 8,000 units TuThSa@17 SC Last administered on 02/06/19 18:23; Admin Dose 8,000 UNITS; Start 01/30/19 at 17:00 Megestrol Acetate (Megace Susp) 400 mg DAILY PO Last administered on 02/07/19 09:03; Admin Dose 400 MG; Start 01/30/19 at 14:30 Linezolid (Zyvox) 600 mg BID PO Last administered on 02/07/19 09:04; Admin Dose 600 MG; Start 01/31/19 at 16:00 Amikacin Sulfate (Amikacin Iv Per Pharmacy) AMIKACIN PER PHARMACY NOTE XX ; Start 01/31/19 at 15:30 Amikacin Sulfate 300 mg/Sodium Chloride 101.2 ml @ 102 mls/hr AFTER DIALYSIS IVPB Last administered on 02/06/19 22:54; Admin Dose 102 MLS/HR; Start 02/01/19 at 16:30 Lactulose (Enulose) 20 gm Q6H PRN PO CONSTIPATION; Start 02/04/19 at 11:00 Ondansetron HCl (Zofran Inj) 4 mg Q6H PRN IV NAUSEA AND/OR VOMITING Last administered on 02/04/19at 12:09; Admin Dose 4 MG; Start 02/04/19 at 12:00 Hydralazine HCl (Apresoline) 100 mg Q8 PO Last administered on 02/07/19at 06:25; Admin Dose 100 MG; Start 02/04/19 at 14:00 TROY ANTOINE Feb 07, 2019 13:11
--- NOTE | 2019-02-07 15:00 | CONS ---
Assessment/Plan Assessment/Plan Hospital Course (Demo Recall) ID PROGRESS NOTE CURRENT ABX: DAY # => ZYVOX + AMIKACIN 24H INTERVAL SUMMARY * Somnolent, supplemental O2 via NC, VSS, No fevers, no new labs today DIAGNOSTIC IMAGING * 02/05/19 CXR: There is bilateral air space disease in the mid and lower lung zones, unchanged. The heart is enlarged. There is calcification in the aorta consistent with atherosclerosis. Small bilateral pleural effusions are unchanged. MICRO/OTHER * Microbiology sacral wound culture grew WOUND CULTURE Final Organism 1 PROTEUS MIRABILIS QUANTITY 1+ Organism 2 VANCO RESISTANT ENTEROCOCCUS QUANTITY ISOLATED FROM BROTH ONLY . MULTI DRUG RESISTANT ORGANISM Organism 3 METHICILLIN RESISTANT S.AUREUS QUANTITY 1+ . MULTI DRUG RESISTANT ORGANISM Organism 4 ESCHERICHIA COLI (ESBL) QUANTITY RARE . MULTI DRUG RESISTANT ORGANISM PHYSICAL EXAMINATION: GENERAL: VSS, NAD, OBESE HEENT: AT, NC, anicteric, NECK: Supple, CHEST: Equal chest rise bilaterally, without dyspnea on observation HEART: Pulse RRR ABDOMEN: Soft / NT EXTREMITIES: Warm, dry The patient has a large necrotic wounds on bilateral buttocks, left buttock and left posterior thigh area , also, necrotic wound. The patient has pressure sores on her left heel as well. SKIN: No rash, no diaphoresis ID ASSESSMENT 63 yo F admit with: 1. Multiple necrotic infected wounds, s/p debridement 2. End-stage renal disease, hemodialysis dependent 3. Diabetes 4. Hypertension 5. MRSA colonization 6. HCAP==> LLL (-)MRSA Nares ABX ALLERGIES: None to ABX INVASIVES: PIV CURRENT ABX: DAY # ZYVOX + AMIKACIN ID RECOMMENDATIONS/PLAN: 1. Continue current ABX over the weekend-- ID colleagues to f/u Friday . Consultation Date/Type/Reason Admit Date/Time Jan 26, 2019 at 17:32 Initial Consult Date 01/27/19 Requesting Provider: ALEXUS VALENCIA MD Date/Time of Note DATE: 02/07/19 TIME: 14:58 Exam/Review of Systems Exam Vitals Vital Signs Date Temp Pulse Resp B/P (MAP) Pulse Ox O2 O2 Flow FiO2 Time Delivery Rate 02/07/19 70 12:27 02/07/19 98.0 20 164/71 98 12:16 (102) 02/07/19 Nasal 2.0 08:15 Cannula Intake and Output 02/06/19 02/06/19 02/07/19 1515:00 23:00 07:00 IntakeIntake Total 282 ml OutputOutput Total 2400 ml BalanceBalance -2400 ml 282 ml Results Result Diagram: 02/05/19 0609 02/05/19 0609 Results 24hrs Laboratory Tests Test 02/06/19 17:16 02/06/19 22:52 02/07/19 07:51 02/07/19 11:59 Bedside Glucose 115 104 108 139 Medications Medication Current Medications Amiodarone HCl (Cordarone) 200 mg DAILY PO Last administered on 02/07/19 09:04; Admin Dose 200 MG; Start 01/27/19 at 09:00 Ascorbic Acid (Vitamin C) 500 mg DAILY PO Last administered on 02/07/19 09:04; Admin Dose 500 MG; Start 01/27/19 at 09:00 Atorvastatin Calcium (Lipitor) 20 mg QHS PO Last administered on 02/06/19 22:55; Admin Dose 20 MG; Start 01/26/19 at 21:00 Bisacodyl (Dulcolax) 10 mg Q24H PRN PO CONSTIPATION; Start 01/26/19 at 20:00 Citalopram Hydrobromide (Celexa) 20 mg DAILY PO Last administered on 02/07/19 09:04; Admin Dose 20 MG; Start 01/27/19 at 09:00 Docusate Sodium (Colace) 100 mg BID PO Last administered on 02/06/19 09:31; Admin Dose 100 MG; Start 01/26/19 at 21:00 Folic Acid (Folic Acid) 1 mg DAILY PO Last administered on 02/07/19 09:04; Admin Dose 1 MG; Start 01/27/19 at 09:00 Levothyroxine Sodium (Synthroid) 100 mcg BEFORE BREAKFAST PO Last administered on 02/07/19 06:25; Admin Dose 100 MCG; Start 01/27/19 at 07:00 Metoclopramide HCl (Reglan) 5 mg BEFORE MEALS PO Last administered on 02/07/19 12:01; Admin Dose 5 MG; Start 01/27/19 at 07:30 Metoprolol Tartrate (Lopressor) 25 mg BID PO Last administered on 02/07/19 09:05; Admin Dose 25 MG; Start 01/26/19 at 21:00 Multivit/Ca Carb/ B Cmplx/FA/Prenat (Wendi-Cathi) 1 tab DAILY PO Last administered on 02/07/19 09:04; Admin Dose 1 TAB; Start 01/27/19 at 09:00 Ondansetron HCl (Zofran Tab) 4 mg Q6H PRN PO NAUSEA AND/OR VOMITING Last administered on 01/30/19 10:43; Admin Dose 4 MG; Start 01/26/19 at 20:00 Pantoprazole (Protonix Tab) 40 mg DAILY PO Last administered on 02/07/19 09:04; Admin Dose 40 MG; Start 01/27/19 at 09:00 Polyethylene Glycol (Miralax) 17 gm DAILY PO Last administered on 02/06/19 09:31; Admin Dose 17 GM; Start 01/27/19 at 09:00 Prednisolone Acetate (Pred-Forte 1%) 1 drop BID RIGHT EYE Last administered on 02/07/19 09:05; Admin Dose 1 DROP; Start 01/26/19 at 21:00 Zinc Sulfate (Zinc Sulfate) 220 mg DAILY PO Last administered on 02/07/19 09:04; Admin Dose 220 MG; Start 01/27/19 at 09:00 Insulin Aspart (Novolog Insulin Pen) NOVOLOG *MODERATE* ALGORITHM WITH MEALS BEDTIME SC Last administered on 02/04/19 17:37; Admin Dose 2 UNIT; Start 01/26/19 at 21:00 Heparin Sodium (Porcine) (Heparin (5000 Units/1ml)) 5,000 unit BID SC Last administered on 02/07/19 10:34; Admin Dose 5,000 UNIT; Start 01/26/19 at 21:00 Morphine Sulfate (morphine) 2 mg Q4H PRN IV SEVERE PAIN LEVEL 7-10 Last administered on 02/06/19 15:13; Admin Dose 2 MG; Start 01/26/19 at 20:30 Miscellaneous Information 1 ea NOTE XX ; Start 01/26/19 at 23:45 Glucose (Glutose) 15 gm Q15M PRN PO DECREASED GLUCOSE; Start 01/26/19 at 23:45 Glucose (Glutose) 22.5 gm Q15M PRN PO DECREASED GLUCOSE; Start 01/26/19 at 23:45 Dextrose (D50w Syringe) 25 ml Q15M PRN IV DECREASED GLUCOSE Last administered on 01/28/19 07:50; Admin Dose 25 ML; Start 01/26/19 at 23:45 Dextrose (D50w Syringe) 50 ml Q15M PRN IV DECREASED GLUCOSE; Start 01/26/19 at 23:45 Glucagon (Glucagen) 1 mg Q15M PRN IM DECREASED GLUCOSE; Start 01/26/19 at 23:45 Glucose (Glutose) 15 gm Q15M PRN BUCCAL DECREASED GLUCOSE; Start 01/26/19 at 23:45 Alteplase, Recombinant (Cathflo (Activase)) 2 mg MAY REPEAT X1 PRN CATHETER IF CATHETER REMAINS OCCULUDED Last administered on 02/02/19 23:09; Admin Dose 2 MG; Start 01/27/19 at 07:00 Tramadol HCl (Ultram) 50 mg Q6H PO Last administered on 02/07/19 14:16; Admin Dose 50 MG; Start 01/27/19 at 08:00 Collagenase (Santyl) 1 applic DAILY TOP Last administered on 02/07/19 09:03; Admin Dose 1 APPLIC; Start 01/28/19 at 09:00 Sodium Hypochlorite (Dakin'S (Dilute 40)) 1 applic DAILY IRR Last administered on 02/07/19 09:06; Admin Dose 1 APPLIC; Start 01/28/19 at 09:00 Lorazepam (Ativan) 1 mg Q8H PRN PO ANXIETY; Start 01/27/19 at 22:30 Mupirocin (Bactroban) 1 applic BID TOP Last administered on 02/07/19 09:05; Admin Dose 1 APPLIC; Start 01/28/19 at 21:00 Epoetin Indra (Epogen (Esrd)) 8,000 units TuThSa@17 SC Last administered on 02/06/19 18:23; Admin Dose 8,000 UNITS; Start 01/30/19 at 17:00 Megestrol Acetate (Megace Susp) 400 mg DAILY PO Last administered on 02/07/19 09:03; Admin Dose 400 MG; Start 01/30/19 at 14:30 Linezolid (Zyvox) 600 mg BID PO Last administered on 02/07/19 09:04; Admin Dose 600 MG; Start 01/31/19 at 16:00 Amikacin Sulfate (Amikacin Iv Per Pharmacy) AMIKACIN PER PHARMACY NOTE XX ; Start 01/31/19 at 15:30 Amikacin Sulfate 300 mg/Sodium Chloride 101.2 ml @ 102 mls/hr AFTER DIALYSIS IVPB Last administered on 02/06/19at 22:54; Admin Dose 102 MLS/HR; Start 02/01/19 at 16:30 Lactulose (Enulose) 20 gm Q6H PRN PO CONSTIPATION; Start 02/04/19 at 11:00 Ondansetron HCl (Zofran Inj) 4 mg Q6H PRN IV NAUSEA AND/OR VOMITING Last administered on 02/04/19at 12:09; Admin Dose 4 MG; Start 02/04/19 at 12:00 Hydralazine HCl (Apresoline) 100 mg Q8 PO Last administered on 02/07/19at 14:16; Admin Dose 100 MG; Start 02/04/19 at 14:00 LINDA SCHAEFER NP Feb 07, 2019 15:00
--- NOTE | 2019-02-07 18:01 | CONS ---
Assessment/Plan Assessment/Plan Assessment/Plan (Daily) - ESRD on Hemodialysis - Anemia of Chronic Disease - DM / DM Nephropathy - CAD / CHF - Hypoalbuminia - Hypothyroid - Failure to thrive - Leukocytosis - Non healing wound PLAN: Bedside dialysis Aim for UD ~ 1-2 liter as tolerates IV Antibiotics Local wound care Follow up on H/H ( on long acting EPO as out patient ) High protein diet / Supplements Had HD yesterday Plan for HD next 01/29/2019 Monitor H/H High Protein diet More awake & alert Poor appetite with low albumin High protein diet Add Nepro supplement Add Megace Increase EPO Check IRON Bedside dialysis 01/29/2019 using 3K+ bath today Post debridement of the sacral wound Next HD Friday Increase protein Diet Consultation Date/Type/Reason Admit Date/Time Jan 26, 2019 at 17:32 Initial Consult Date 01/27/19 Type of Consult - Nephrology ( Dialysis Dependent ) Requesting Provider: ALEXUS VALENCIA MD Date/Time of Note DATE: 02/07/19 TIME: 18:00 24 HR Interval Summary Constitutional: no complaints, improved Exam/Review of Systems Exam Vitals Vital Signs Date Temp Pulse Resp B/P (MAP) Pulse Ox O2 O2 Flow FiO2 Time Delivery Rate 02/07/19 64 17:15 02/07/19 98.0 20 158/76 98 16:15 (103) 02/07/19 2.0 15:34 02/07/19 Nasal 08:15 Cannula Intake and Output 02/06/19 02/06/19 02/07/19 1515:00 23:00 07:00 IntakeIntake Total 282 ml OutputOutput Total 2400 ml BalanceBalance -2400 ml 282 ml Constitutional: alert Psych: no complaints Respiratory: crackles/rales Cardiovascular: regular rate and rhythm, edema, systolic murmur Gastrointestinal: soft Results Result Diagram: 02/05/19 0609 02/05/19 0609 Results 24hrs Laboratory Tests Test 02/06/19 22:52 02/07/19 07:51 02/07/19 11:59 02/07/19 17:53 Bedside Glucose 104 108 139 138 Medications Medication Current Medications Amiodarone HCl (Cordarone) 200 mg DAILY PO Last administered on 02/07/19 09:04; Admin Dose 200 MG; Start 01/27/19 at 09:00 Ascorbic Acid (Vitamin C) 500 mg DAILY PO Last administered on 02/07/19 09:04; Admin Dose 500 MG; Start 01/27/19 at 09:00 Atorvastatin Calcium (Lipitor) 20 mg QHS PO Last administered on 02/06/19 22:55; Admin Dose 20 MG; Start 01/26/19 at 21:00 Bisacodyl (Dulcolax) 10 mg Q24H PRN PO CONSTIPATION; Start 01/26/19 at 20:00 Citalopram Hydrobromide (Celexa) 20 mg DAILY PO Last administered on 02/07/19 09:04; Admin Dose 20 MG; Start 01/27/19 at 09:00 Docusate Sodium (Colace) 100 mg BID PO Last administered on 02/06/19 09:31; Admin Dose 100 MG; Start 01/26/19 at 21:00 Folic Acid (Folic Acid) 1 mg DAILY PO Last administered on 02/07/19 09:04; Admin Dose 1 MG; Start 01/27/19 at 09:00 Levothyroxine Sodium (Synthroid) 100 mcg BEFORE BREAKFAST PO Last administered on 02/07/19 06:25; Admin Dose 100 MCG; Start 01/27/19 at 07:00 Metoclopramide HCl (Reglan) 5 mg BEFORE MEALS PO Last administered on 02/07 17:54; Admin Dose 5 MG; Start 01/27/19 at 07:30 Metoprolol Tartrate (Lopressor) 25 mg BID PO Last administered on 02/07/19 09:05; Admin Dose 25 MG; Start 01/26/19 at 21:00 Multivit/Ca Carb/ B Cmplx/FA/Prenat (Wendi-Cathi) 1 tab DAILY PO Last administered on 02/07/19 09:04; Admin Dose 1 TAB; Start 01/27/19 at 09:00 Ondansetron HCl (Zofran Tab) 4 mg Q6H PRN PO NAUSEA AND/OR VOMITING Last ad ministered on 01/30/19 10:43; Admin Dose 4 MG; Start 01/26/19 at 20:00 Pantoprazole (Protonix Tab) 40 mg DAILY PO Last administered on 02/07/19 09:04; Admin Dose 40 MG; Start 01/27/19 at 09:00 Polyethylene Glycol (Miralax) 17 gm DAILY PO Last administered on 02/06/19 09:31; Admin Dose 17 GM; Start 01/27/19 at 09:00 Prednisolone Acetate (Pred-Forte 1%) 1 drop BID RIGHT EYE Last administered on 02/07/19 09:05; Admin Dose 1 DROP; Start 01/26/19 at 21:00 Zinc Sulfate (Zinc Sulfate) 220 mg DAILY PO Last administered on 02/07/19 09:04; Admin Dose 220 MG; Start 01/27/19 at 09:00 Insulin Aspart (Novolog Insulin Pen) NOVOLOG *MODERATE* ALGORITHM WITH MEALS BEDTIME SC Last administered on 02/04/19 17:37; Admin Dose 2 UNIT; Start 01/26/19 at 21:00 Heparin Sodium (Porcine) (Heparin (5000 Units/1ml)) 5,000 unit BID SC Last administered on 02/07/19 10:34; Admin Dose 5,000 UNIT; Start 01/26/19 at 21:00 Morphine Sulfate (morphine) 2 mg Q4H PRN IV SEVERE PAIN LEVEL 7-10 Last administered on 02/06/19 15:13; Admin Dose 2 MG; Start 01/26/19 at 20:30 Miscellaneous Information 1 ea NOTE XX ; Start 01/26/19 at 23:45 Glucose (Glutose) 15 gm Q15M PRN PO DECREASED GLUCOSE; Start 01/26/19 at 23:45 Glucose (Glutose) 22.5 gm Q15M PRN PO DECREASED GLUCOSE; Start 01/26/19 at 23:45 Dextrose (D50w Syringe) 25 ml Q15M PRN IV DECREASED GLUCOSE Last administered on 01/28/19at 07:50; Admin Dose 25 ML; Start 01/26/19 at 23:45 Dextrose (D50w Syringe) 50 ml Q15M PRN IV DECREASED GLUCOSE; Start 01/26/19 at 23:45 Glucagon (Glucagen) 1 mg Q15M PRN IM DECREASED GLUCOSE; Start 01/26/19 at 23:45 Glucose (Glutose) 15 gm Q15M PRN BUCCAL DECREASED GLUCOSE; Start 01/26/19 at 23:45 Alteplase, Recombinant (Cathflo (Activase)) 2 mg MAY REPEAT X1 PRN CATHETER IF CATHETER REMAINS OCCULUDED Last administered on 02/02/19 23:09; Admin Dose 2 MG; Start 01/27/19 at 07:00 Tramadol HCl (Ultram) 50 mg Q6H PO Last administered on 02/07/19 14:16; Admin Dose 50 MG; Start 01/27/19 at 08:00 Collagenase (Santyl) 1 applic DAILY TOP Last administered on 02/07/19 09:03; Admin Dose 1 APPLIC; Start 01/28/19 at 09:00 Sodium Hypochlorite (Dakin'S (Dilute )) 1 applic DAILY IRR Last administered on 02/07/19 09:06; Admin Dose 1 APPLIC; Start 01/28/19 at 09:00 Lorazepam (Ativan) 1 mg Q8H PRN PO ANXIETY; Start 01/27/19 at 22:30 Mupirocin (Bactroban) 1 applic BID TOP Last administered on 02/07/19 09:05; Admin Dose 1 APPLIC; Start 01/28/19 at 21:00 Epoetin Indra (Epogen (Esrd)) 8,000 units TuThSa@17 SC Last administered on 02/06/19 18:23; Admin Dose 8,000 UNITS; Start 01/30/19 at 17:00 Megestrol Acetate (Megace Susp) 400 mg DAILY PO Last administered on 02/07/19 09:03; Admin Dose 400 MG; Start 01/30/19 at 14:30 Linezolid (Zyvox) 600 mg BID PO Last administered on 02/07/19at 09:04; Admin Dose 600 MG; Start 01/31/19 at 16:00 Amikacin Sulfate (Amikacin Iv Per Pharmacy) AMIKACIN PER PHARMACY NOTE XX ; Start 01/31/19 at 15:30 Amikacin Sulfate 300 mg/Sodium Chloride 101.2 ml @ 102 mls/hr AFTER DIALYSIS IVPB Last administered on 02/06/19at 22:54; Admin Dose 102 MLS/HR; Start 02/01/19 at 16:30 Lactulose (Enulose) 20 gm Q6H PRN PO CONSTIPATION; Start 02/04/19 at 11:00 Ondansetron HCl (Zofran Inj) 4 mg Q6H PRN IV NAUSEA AND/OR VOMITING Last administered on 02/04/19at 12:09; Admin Dose 4 MG; Start 02/04/19 at 12:00 Hydralazine HCl (Apresoline) 100 mg Q8 PO Last administered on 02/07/19at 14:16; Admin Dose 100 MG; Start 02/04/19 at 14:00 ANIBAL ALMANZAR MD Feb 07, 2019 18:01
[2019-02-07] MEDS: morphine 2 MG INJ IV PRN (20:48)
[2019-02-07] MEDS: ATORVASTATIN 20 MG TAB PO SCH (20:51)
--- NOTE | 2019-02-07 23:51 | PN ---
Date/Time of Note Date/Time of Note DATE: 02/06/19 TIME: 23:51 Assessment/Plan Lines/Catheters IV Catheter Type (from Nrs): PICC Line [place] in Place (from Nrs): No Assessment/Plan Chief Complaint/Hosp Course 1. Sacral and bilateral ischial wounds: wnd cx noted; status post sacrum and right ischial debridement 01/29/19 -Further debridement as needed -Continue local care> can follow with Dr. Sanchez as outpatient in wound clinic. -frequent turning and off-loading -low air loss mattress -vitamin c -short term zinc -optimize nutrition 2. Abdominal pain and generalized weakness: Status post EGD: Gastritis -further w/u per med team -PPI 3. ESRD -limit nephrotoxins -HD per renal -renally dose meds 4. Anemia: Colonoscopy pending -monitor and transfuse as needed 5. Diabetes with episodes of hypoglycemia; no hypoglycemia episodes-sugar control much improved -glucose management 6. Hypothyroidism -med mgt 7. Pleural effusions: -judicious fluid management Thank you, Late entry 02/06 Subjective 24 Hr Interval Summary Intermittent back pain. H&H stable. No fevers, chills, sob, congested cough, cp, palpitations, hoffman, dizziness, nausea, vomiting, diarrhea, dysuria. Exam/Review of Systems Vital Signs Vitals Vital Signs Date Temp Pulse Resp B/P (MAP) Pulse Ox O2 O2 Flow FiO2 Time Delivery Rate 02/07/19 66 20:00 02/07/19 Nasal 2.0 20:00 Cannula 02/07/19 98.0 17 149/61 99 19:30 (90) Intake and Output 02/07/19 02/07/19 02/08/19 1515:00 23:00 07:00 IntakeIntake Total 700 ml BalanceBalance 700 ml Exam Free Text/Dictation Constitutional: alert, oriented, obese Psych: anxiety (minimal) Head: normocephalic, atraumatic Eyes: nl conjunctiva, EOMI, nl lids, nl sclera ENMT: nl external ears & nose, nl lips & teeth, mucosa pink and moist Neck: supple, non-tender; No jvd Respiratory: normal air movement; No congested cough, No labored breathing Cardiovascular: regular rate and rhythm, nl pulses; No edema Gastrointestinal: soft, non-tender, distended Genitourinary - Female: nl external genitalia Musculoskeletal: nl extremities to inspection, nl gait and stance Extremities: normal pulses Neurological: nl mental status, nl speech, nl strength Skin: other (sacral: Packed, no odor, minimal periwound erythema; right ischium: Packed, improved odor; left ischium: unstageable); No rash or lesions Results Result Diagram: 02/05/19 0609 02/05/19 0609 ALFREDO SANCHEZ MD Feb 07, 2019 23:51
--- NOTE | 2019-02-07 23:52 | PN ---
Date/Time of Note Date/Time of Note DATE: 02/07/19 TIME: 23:52 Assessment/Plan Lines/Catheters IV Catheter Type (from Nrs): PICC Line [place] in Place (from Nrs): No Assessment/Plan Chief Complaint/Hosp Course 1. Sacral and bilateral ischial wounds: wnd cx noted; status post sacrum and right ischial debridement 01/29/19 -Further debridement as needed -Continue local care> can follow with Dr. Sanchez as outpatient in wound clinic. -frequent turning and off-loading -low air loss mattress -vitamin c -short term zinc -optimize nutrition 2. Abdominal pain and generalized weakness: Status post EGD: Gastritis -further w/u per med team -PPI 3. ESRD -limit nephrotoxins -HD per renal -renally dose meds 4. Anemia: Colonoscopy pending -monitor and transfuse as needed 5. Diabetes with episodes of hypoglycemia; no hypoglycemia episodes-sugar control much improved -glucose management 6. Hypothyroidism -med mgt 7. Pleural effusions: -judicious fluid management Thank you, Subjective 24 Hr Interval Summary Intermittent back pain. H&H stable. No fevers, chills, sob, congested cough, cp, palpitations, hoffman, dizziness, nausea, vomiting, diarrhea, dysuria. Exam/Review of Systems Vital Signs Vitals Vital Signs Date Temp Pulse Resp B/P (MAP) Pulse Ox O2 O2 Flow FiO2 Time Delivery Rate 02/07/19 66 20:00 02/07/19 Nasal 2.0 20:00 Cannula 02/07/19 98.0 17 149/61 99 19:30 (90) Intake and Output 02/07/19 02/07/19 02/08/19 1515:00 23:00 07:00 IntakeIntake Total 700 ml BalanceBalance 700 ml Exam Free Text/Dictation Constitutional: alert, oriented, obese Psych: anxiety (minimal) Head: normocephalic, atraumatic Eyes: nl conjunctiva, EOMI, nl lids, nl sclera ENMT: nl external ears & nose, nl lips & teeth, mucosa pink and moist Neck: supple, non-tender; No jvd Respiratory: normal air movement; No congested cough, No labored breathing Cardiovascular: regular rate and rhythm, nl pulses; No edema Gastrointestinal: soft, non-tender, distended Genitourinary - Female: nl external genitalia Musculoskeletal: nl extremities to inspection, nl gait and stance Extremities: normal pulses Neurological: nl mental status, nl speech, nl strength Skin: other (sacral: Packed, no odor, minimal periwound erythema; right ischium: Packed, improved odor; left ischium: unstageable); No rash or lesions Results Result Diagram: 02/05/19 0609 02/05/19 0609 ALFREDO SANCHEZ MD Feb 07, 2019 23:52
[2019-02-08] VITALS (24 sets, daily range): BP systolic 100–186; BP diastolic 34–78; PULSE 63–71; RESP 18–20
[2019-02-08] MEDS: traMADol 50 MG TAB PO SCH ×3 (02:18→17:52)
[2019-02-08] MEDS: morphine 2 MG INJ IV PRN ×2 (05:37→10:00)
[2019-02-08] MEDS: LEVOTHYROXINE 100 MCG TAB PO SCH (05:45)
[2019-02-08] MEDS: METOCLOPRAMIDE 5 MG TAB PO SCH ×3 (07:30→16:55)
[2019-02-08] MEDS: INSULIN ASPART [NOVOLOG] 3 ML PEN SC SCH ×4 (08:00→21:00)
[2019-02-08] MEDS: POLYETHYLENE GLYCOL 17 GM PACKET PO SCH (09:00)
[2019-02-08] MEDS: FOLIC ACID 1 MG TAB PO SCH (09:57)
[2019-02-08] MEDS: ZYVOX 600 MG TAB PO SCH (09:57)
[2019-02-08] MEDS: DOCUSATE SODIUM 100 MG CAP PO SCH (09:57)
[2019-02-08] MEDS: CITALOPRAM 20 MG TAB PO SCH (09:57)
[2019-02-08] MEDS: ZINC SULFATE 220 MG CAP PO SCH (09:57)
[2019-02-08] MEDS: MEGESTROL (40 MG/ML) 10ML CUP PO SCH (09:57)
[2019-02-08] MEDS: PANTOPRAZOLE (EC) 40 MG TAB PO SCH (09:57)
[2019-02-08] MEDS: MULTIVIT/CA CARB/B CMPLX/FA TAB PO SCH (09:57)
[2019-02-08] MEDS: ASCORBIC ACID 500 MG TAB PO SCH (09:57)
[2019-02-08] MEDS: AMIODARONE 200 MG TAB PO SCH (09:58)
[2019-02-08] MEDS: PREDNISOLONE ACET 1% 5 ML OPH RIGHT EYE SCH ×2 (09:58→23:31)
[2019-02-08] MEDS: SODIUM HYPOCHLORITE (1/40) 1 LITER BTL IRR SCH (09:58)
[2019-02-08] MEDS: MUPIROCIN 2% 22 GM OINT TOP SCH ×2 (09:58→23:22)
[2019-02-08] MEDS: COLLAGENASE 5 GM (UD JAR) TOP SCH (09:58)
[2019-02-08] MEDS: BALSAM PERU/CASTOR OIL 60 GM TUBE TOP SCH (09:58)
[2019-02-08] MEDS: METOPROLOL 25 MG TAB PO SCH (09:58)
[2019-02-08] MEDS: HEPARIN 5,000 UNIT/1 ML VIAL SC SCH (10:10)
--- NOTE | 2019-02-08 11:27 | CONS ---
Assessment/Plan Assessment/Plan Hospital Course (Demo Recall) IMPRESSION: 1. Preop evaluation. The patient to undergo EGD whose 2D echo I just read revealing EF lower limits of normal, approximately 50% with no significant contraindicated valvular lesions and negative troponin x1 since admit, patient is okay to proceed at a moderate cardiovascular risk. Now post-op s/p endoscopy and debridement of decub ulcer 2. Congestive heart failure, diastolic acute on chronic. 3. Hypertension. 4. Cardiac arrhythmia, on amiodarone, in sinus rhythm by EKG. 5. Hypothyroidism. 6. Diabetes mellitus. 7. Nausea and vomiting. 8. Generalized weakness. 9. Decubitus ulcers s/p debridement 10. Anemia. 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 Recc: -Tele -Contineu BB and hydralazine with further increases and follow very labile BP -continue statin -Continue abx's and f/u cx data -local wound care Consultation Date/Type/Reason Admit Date/Time Jan 26, 2019 at 17:32 Initial Consult Date 01/27/19 Type of Consult Cardiology Reason for Consultation CHF Requesting Provider: ALEXUS VAELNCIA MD Date/Time of Note DATE: 02/08/19 TIME: 11:26 Exam/Review of Systems Vital Signs Vitals Vital Signs Date Temp Pulse Resp B/P (MAP) Pulse Ox O2 O2 Flow FiO2 Time Delivery Rate 02/08/19 Nasal 08:45 Cannula 02/08/19 69 08:00 02/08/19 98.0 20 147/68 98 07:14 (94) 02/08/19 2.0 04:02 Intake and Output 02/07/19 02/07/19 02/08/19 1515:00 23:00 07:00 IntakeIntake Total 700 ml 600 ml BalanceBalance 700 ml 600 ml Exam Exam Review of Systems: CONSTITUTIONAL: No fevers, chills. PULMONARY: No sob CARDIOVASCULAR: No chest pain/palpitations GASTROINTESTINAL: No nausea/vomiting. GENITOURINARY: No hematuria/dysuria. MUSCULOSKELETAL: No myagias/arthalgias. PSYCHIATRIC: The patient denies depression. NEUROLOGIC: dizziness Constitutional: alert Psych: no complaints Head: normocephalic ENMT: mucosa pink and moist Neck: supple, jvd (9 cm water) Respiratory: diminished breath sounds Cardiovascular: regular rate and rhythm Gastrointestinal: soft, non-tender Musculoskeletal: muscle tone (normal) Extremities: edema (none) Neurological: other (No focal deficits) Labs Result Diagram: 02/05/19 0609 02/05/19 0609 Results 24hrs Laboratory Tests Test 02/07/19 11:59 02/07/19 17:53 02/07/19 20:44 02/08/19 07:48 Bedside Glucose 139 138 141 108 Medications Medications Current Medications Amiodarone HCl (Cordarone) 200 mg DAILY PO Last administered on 02/08/19 09:58; Admin Dose 200 MG; Start 01/27/19 at 09:00 Ascorbic Acid (Vitamin C) 500 mg DAILY PO Last administered on 02/08/19 09:57; Admin Dose 500 MG; Start 01/27/19 at 09:00 Atorvastatin Calcium (Lipitor) 20 mg QHS PO Last administered on 02/07/19 20:51; Admin Dose 20 MG; Start 01/26/19 at 21:00 Bisacodyl (Dulcolax) 10 mg Q24H PRN PO CONSTIPATION; Start 01/26/19 at 20:00 Citalopram Hydrobromide (Celexa) 20 mg DAILY PO Last administered on 02/08/19 09:57; Admin Dose 20 MG; Start 01/27/19 at 09:00 Docusate Sodium (Colace) 100 mg BID PO Last administered on 02/08/19 09:57; Admin Dose 100 MG; Start 01/26/19 at 21:00 Folic Acid (Folic Acid) 1 mg DAILY PO Last administered on 02/08/19 09:57; Admin Dose 1 MG; Start 01/27/19 at 09:00 Levothyroxine Sodium (Synthroid) 100 mcg BEFORE BREAKFAST PO Last administered on 02/08/19 05:45; Admin Dose 100 MCG; Start 01/27/19 at 07:00 Metoclopramide HCl (Reglan) 5 mg BEFORE MEALS PO Last administered on 9at 17:54; Admin Dose 5 MG; Start 01/27/19 at 07:30 Metoprolol Tartrate (Lopressor) 25 mg BID PO Last administered on 02/08/19 09:58; Admin Dose 25 MG; Start 01/26/19 at 21:00 Multivit/Ca Carb/ B Cmplx/FA/Prenat (Wendi-Cathi) 1 tab DAILY PO Last administered on 02/08/19 09:57; Admin Dose 1 TAB; Start 01/27/19 at 09:00 Ondansetron HCl (Zofran Tab) 4 mg Q6H PRN PO NAUSEA AND/OR VOMITING Last admini stered on 01/30/19 10:43; Admin Dose 4 MG; Start 01/26/19 at 20:00 Pantoprazole (Protonix Tab) 40 mg DAILY PO Last administered on 02/08/19 09:57; Admin Dose 40 MG; Start 01/27/19 at 09:00 Polyethylene Glycol (Miralax) 17 gm DAILY PO Last administered on 02/06/19 09:31; Admin Dose 17 GM; Start 01/27/19 at 09:00 Prednisolone Acetate (Pred-Forte 1%) 1 drop BID RIGHT EYE Last administered on 02/08/19 09:58; Admin Dose 1 DROP; Start 01/26/19 at 21:00 Zinc Sulfate (Zinc Sulfate) 220 mg DAILY PO Last administered on 02/08/19 09:57; Admin Dose 220 MG; Start 01/27/19 at 09:00 Insulin Aspart (Novolog Insulin Pen) NOVOLOG *MODERATE* ALGORITHM WITH MEALS BEDTIME SC Last administered on 02/04/19 17:37; Admin Dose 2 UNIT; Start 01/26/19 at 21:00 Heparin Sodium (Porcine) (Heparin (5000 Units/1ml)) 5,000 unit BID SC Last administered on 02/08/19 10:10; Admin Dose 5,000 UNIT; Start 01/26/19 at 21:00 Morphine Sulfate (morphine) 2 mg Q4H PRN IV SEVERE PAIN LEVEL 7-10 Last administered on 02/08/19 10:00; Admin Dose 2 MG; Start 01/26/19 at 20:30 Miscellaneous Information 1 ea NOTE XX ; Start 01/26/19 at 23:45 Glucose (Glutose) 15 gm Q15M PRN PO DECREASED GLUCOSE; Start 01/26/19 at 23:45 Glucose (Glutose) 22.5 gm Q15M PRN PO DECREASED GLUCOSE; Start 01/26/19 at 23:45 Dextrose (D50w Syringe) 25 ml Q15M PRN IV DECREASED GLUCOSE Last administered on 01/28/19 07:50; Admin Dose 25 ML; Start 01/26/19 at 23:45 Dextrose (D50w Syringe) 50 ml Q15M PRN IV DECREASED GLUCOSE; Start 01/26/19 at 23:45 Glucagon (Glucagen) 1 mg Q15M PRN IM DECREASED GLUCOSE; Start 01/26/19 at 23:45 Glucose (Glutose) 15 gm Q15M PRN BUCCAL DECREASED GLUCOSE; Start 01/26/19 at 23:45 Alteplase, Recombinant (Cathflo (Activase)) 2 mg MAY REPEAT X1 PRN CATHETER IF CATHETER REMAINS OCCULUDED Last administered on 02/02/19 23:09; Admin Dose 2 MG; Start 01/27/19 at 07:00 Tramadol HCl (Ultram) 50 mg Q6H PO Last administered on 02/08/19 09:57; Admin Dose 50 MG; Start 01/27/19 at 08:00 Collagenase (Santyl) 1 applic DAILY TOP Last administered on 02/08/19 09:58; Admin Dose 1 APPLIC; Start 01/28/19 at 09:00 Sodium Hypochlorite (Dakin'S (Dilute )) 1 applic DAILY IRR Last administered on 02/08/19 09:58; Admin Dose 1 APPLIC; Start 01/28/19 at 09:00 Lorazepam (Ativan) 1 mg Q8H PRN PO ANXIETY; Start 01/27/19 at 22:30 Mupirocin (Bactroban) 1 applic BID TOP Last administered on 02/08/19 09:58; Admin Dose 1 APPLIC; Start 01/28/19 at 21:00 Epoetin Indra (Epogen (Esrd)) 8,000 units TuThSa@17 SC Last administered on 02/06/19 18:23; Admin Dose 8,000 UNITS; Start 01/30/19 at 17:00 Megestrol Acetate (Megace Susp) 400 mg DAILY PO Last administered on 02/08/19 09:57; Admin Dose 400 MG; Start 01/30/19 at 14:30 Linezolid (Zyvox) 600 mg BID PO Last administered on 02/08/19 09:57; Admin Dose 600 MG; Start 01/31/19 at 16:00 Amikacin Sulfate (Amikacin Iv Per Pharmacy) AMIKACIN PER PHARMACY NOTE XX ; Start 01/31/19 at 15:30 Amikacin Sulfate 300 mg/Sodium Chloride 101.2 ml @ 102 mls/hr AFTER DIALYSIS IVPB Last administered on 02/06/19at 22:54; Admin Dose 102 MLS/HR; Start 02/01/19 at 16:30 Lactulose (Enulose) 20 gm Q6H PRN PO CONSTIPATION; Start 02/04/19 at 11:00 Ondansetron HCl (Zofran Inj) 4 mg Q6H PRN IV NAUSEA AND/OR VOMITING Last administered on 02/04/19at 12:09; Admin Dose 4 MG; Start 02/04/19 at 12:00 Hydralazine HCl (Apresoline) 100 mg Q8 PO Last administered on 02/08/19at 05:37; Admin Dose 100 MG; Start 02/04/19 at 14:00 ALIREZA LEE Feb 08, 2019 11:27
--- NOTE | 2019-02-08 14:38 | CONS ---
Assessment/Plan Assessment/Plan Hospital Course (Demo Recall) awake, looks comfortable, no fevers Microbiology sacral wound culture grew Proteus, E. coli ESBL, VRE, and MRSA Antimicrobials: Amikacin, Zyvox PHYSICAL EXAMINATION: GENERAL: This is a fragile, wasted, well-developed, elderly woman, who is in no distress. HEENT: Head atraumatic, normocephalic. Sclerae anicteric. The patient has right eye blindness. Buccal mucosa pale, dry. NECK: Supple. CHEST: Rise symmetrical. Breath sounds diminished to bases. HEART: S1, S2. ABDOMEN: Obese, soft, bowel tones present. EXTREMITIES: Bilateral edema. SKIN: The patient has a large necrotic wounds on bilateral buttocks, left buttock and left posterior thigh area , also, necrotic wound. The patient has pressure sores on her left heel as well. Assessment: 1. Multiple necrotic infected wounds, s/p debridement 2. End-stage renal disease, hemodialysis dependent 3. Diabetes 4. Hypertension 5. MRSA colonization 6. HCAP==> LLL Plan: Stable, continue antibiotics, wound care per surgical recommendations, f/u labs and cxr in am Consultation Date/Type/Reason Admit Date/Time Jan 26, 2019 at 17:32 Initial Consult Date 01/27/19 Type of Consult id Requesting Provider: ALEXUS VALENCIA MD Date/Time of Note DATE: 02/08/19 TIME: 14:38 Exam/Review of Systems Exam Vitals Vital Signs Date Temp Pulse Resp B/P (MAP) Pulse Ox O2 O2 Flow FiO2 Time Delivery Rate 02/08/19 98.1 69 18 186/78 98 Nasal 12:38 (114) Cannula 02/08/19 2.0 04:02 Intake and Output 02/07/19 02/07/19 02/08/19 1515:00 23:00 07:00 IntakeIntake Total 700 ml 600 ml BalanceBalance 700 ml 600 ml Results Result Diagram: 02/05/19 0609 02/05/19 0609 Results 24hrs Laboratory Tests Test 02/07/19 17:53 02/07/19 20:44 02/08/19 07:48 02/08/19 11:54 Bedside Glucose 138 141 108 137 Medications Medication Current Medications Amiodarone HCl (Cordarone) 200 mg DAILY PO Last administered on 02/08/19at 09:58; Admin Dose 200 MG; Start 01/27/19 at 09:00 Ascorbic Acid (Vitamin C) 500 mg DAILY PO Last administered on 02/08/19 09:57; Admin Dose 500 MG; Start 01/27/19 at 09:00 Atorvastatin Calcium (Lipitor) 20 mg QHS PO Last administered on 02/07/19 20:51; Admin Dose 20 MG; Start 01/26/19 at 21:00 Bisacodyl (Dulcolax) 10 mg Q24H PRN PO CONSTIPATION; Start 01/26/19 at 20:00 Citalopram Hydrobromide (Celexa) 20 mg DAILY PO Last administered on 02/08/19 09:57; Admin Dose 20 MG; Start 01/27/19 at 09:00 Docusate Sodium (Colace) 100 mg BID PO Last administered on 02/08/19 09:57; Admin Dose 100 MG; Start 01/26/19 at 21:00 Folic Acid (Folic Acid) 1 mg DAILY PO Last administered on 02/08/19 09:57; Admin Dose 1 MG; Start 01/27/19 at 09:00 Levothyroxine Sodium (Synthroid) 100 mcg BEFORE BREAKFAST PO Last administered on 02/08/19 05:45; Admin Dose 100 MCG; Start 01/27/19 at 07:00 Metoclopramide HCl (Reglan) 5 mg BEFORE MEALS PO Last administered on 02/07/19 17:54; Admin Dose 5 MG; Start 01/27/19 at 07:30 Multivit/Ca Carb/ B Cmplx/FA/Prenat (Wendi-Cathi) 1 tab DAILY PO Last administered on 02/08/19 09:57; Admin Dose 1 TAB; Start 01/27/19 at 09:00 Ondansetron HCl (Zofran Tab) 4 mg Q6H PRN PO NAUSEA AND/OR VOMITING Last administered on 01/30/19 10:43; Admin Dose 4 MG; Start 01/26/19 at 20:00 Pantoprazole (Protonix Tab) 40 mg DAILY PO Last administered on 02/08/19 09:57; Admin Dose 40 MG; Start 01/27/19 at 09:00 Polyethylene Glycol (Miralax) 17 gm DAILY PO Last administered on 02/06/19 09:31; Admin Dose 17 GM; Start 01/27/19 at 09:00 Prednisolone Acetate (Pred-Forte 1%) 1 drop BID RIGHT EYE Last administered on 02/08/19 09:58; Admin Dose 1 DROP; Start 01/26/19 at 21:00 Zinc Sulfate (Zinc Sulfate) 220 mg DAILY PO Last administered on 02/08/19 09:57; Admin Dose 220 MG; Start 01/27/19 at 09:00 Insulin Aspart (Novolog Insulin Pen) NOVOLOG *MODERATE* ALGORITHM WITH MEALS BEDTIME SC Last administered on 02/04/19 17:37; Admin Dose 2 UNIT; Start 01/26/19 at 21:00 Heparin Sodium (Porcine) (Heparin (5000 Units/1ml)) 5,000 unit BID SC Last administered on 02/08/19 10:10; Admin Dose 5,000 UNIT; Start 01/26/19 at 21:00 Morphine Sulfate (morphine) 2 mg Q4H PRN IV SEVERE PAIN LEVEL 7-10 Last administered on 02/08/19 10:00; Admin Dose 2 MG; Start 01/26/19 at 20:30 Miscellaneous Information 1 ea NOTE XX ; Start 01/26/19 at 23:45 Glucose (Glutose) 15 gm Q15M PRN PO DECREASED GLUCOSE; Start 01/26/19 at 23:45 Glucose (Glutose) 22.5 gm Q15M PRN PO DECREASED GLUCOSE; Start 01/26/19 at 23:45 Dextrose (D50w Syringe) 25 ml Q15M PRN IV DECREASED GLUCOSE Last administered on 01/28/19 07:50; Admin Dose 25 ML; Start 01/26/19 at 23:45 Dextrose (D50w Syringe) 50 ml Q15M PRN IV DECREASED GLUCOSE; Start 01/26/19 at 23:45 Glucagon (Glucagen) 1 mg Q15M PRN IM DECREASED GLUCOSE; Start 01/26/19 at 23:45 Glucose (Glutose) 15 gm Q15M PRN BUCCAL DECREASED GLUCOSE; Start 01/26/19 at 23:45 Alteplase, Recombinant (Cathflo (Activase)) 2 mg MAY REPEAT X1 PRN CATHETER IF CATHETER REMAINS OCCULUDED Last administered on 02/02/19 23:09; Admin Dose 2 MG; Start 01/27/19 at 07:00 Tramadol HCl (Ultram) 50 mg Q6H PO Last administered on 02/08/19 09:57; Admin Dose 50 MG; Start 01/27/19 at 08:00 Collagenase (Santyl) 1 applic DAILY TOP Last administered on 02/08/19 09:58; Admin Dose 1 APPLIC; Start 01/28/19 at 09:00 Sodium Hypochlorite (Dakin'S (Dilute )) 1 applic DAILY IRR Last administered on 02/08/19 09:58; Admin Dose 1 APPLIC; Start 01/28/19 at 09:00 Lorazepam (Ativan) 1 mg Q8H PRN PO ANXIETY; Start 01/27/19 at 22:30 Mupirocin (Bactroban) 1 applic BID TOP Last administered on 02/08/19 09:58; Admin Dose 1 APPLIC; Start 01/28/19 at 21:00 Epoetin Indra (Epogen (Esrd)) 8,000 units TuThSa@17 SC Last administered on 02/06/19 18:23; Admin Dose 8,000 UNITS; Start 01/30/19 at 17:00 Megestrol Acetate (Megace Susp) 400 mg DAILY PO Last administered on 02/08/19 09:57; Admin Dose 400 MG; Start 01/30/19 at 14:30 Linezolid (Zyvox) 600 mg BID PO Last administered on 02/08/19 09:57; Admin Dose 600 MG; Start 01/31/19 at 16:00 Amikacin Sulfate (Amikacin Iv Per Pharmacy) AMIKACIN PER PHARMACY NOTE XX ; Start 01/31/19 at 15:30 Amikacin Sulfate 300 mg/Sodium Chloride 101.2 ml @ 102 mls/hr AFTER DIALYSIS IVPB Last administered on 02/06/19 22:54; Admin Dose 102 MLS/HR; Start 02/01/19 at 16:30 Lactulose (Enulose) 20 gm Q6H PRN PO CONSTIPATION; Start 02/04/19 at 11:00 Ondansetron HCl (Zofran Inj) 4 mg Q6H PRN IV NAUSEA AND/OR VOMITING Last administered on 02/04/19 12:09; Admin Dose 4 MG; Start 02/04/19 at 12:00 Hydralazine HCl (Apresoline) 100 mg Q8 PO Last administered on 02/08/19at 05:37; Admin Dose 100 MG; Start 02/04/19 at 14:00 Metoprolol Tartrate (Lopressor) 50 mg BID PO ; Start 02/08/19 at 21:00 ALYX NAVARRO NP Feb 08, 2019 14:38
--- NOTE | 2019-02-08 16:01 | PN ---
Date/Time of Note Date/Time of Note DATE: 02/08/19 TIME: 15:57 Assessment/Plan VTE Prophylaxis Risk score (from Ns)>0 risk: 4 [place] [facility] [place] SCD contraindicated: bilateral LE trauma Pharmacological prophylaxis: heparin Lines/Catheters IV [facility]ter Type (from [facility]): PICC Line Central line still needed: Yes Urinary Cath still in place: No Assessment/Plan Hospital Course Patient is lethargic but easily arousable, episodes of hypertension, continues on Zyvox of and amikacin for infected wounds and pneumonia. CBC BMP and chest x -ray tomorrow Assessment/Plan -Sacral and bilateral ischial infected wounds. Status post sacrum and right ischial debridement 01/29/19. Dr. Almanza is following in general surgery consultation. Continue antibiotics per ID. Dr. Guevara is following in infection disease consultation. Patient is currently on Zyvox and amikacin. -Left lower lobe infiltrate -Abdominal pain. Status post EGD with notion of gastritis. Continue PPI. Status post a colonoscopy with notion of hemorrhoids. -Moderate bilateral pleural effusion slightly improved per chest x-ray from 02/03/19. -Hemodialysis dependent end-stage renal disease. Continue on hemodialysis. Dr. Mcdaniel is following from nephrology standpoint. -Diabetes mellitus type 2. Continue Levemir and NovoLog per mild algorithm sli ding scale. -Hypothyroidism, continue levothyroxine -Hypertension. -Hyperlipidemia, continue statin -Anemia -MRSA of nares colonization. Contact isolation. -Right eye blindness. Further recommendations based on clinical course. Plan of care discussed with Dr. Mandel. Result Diagram: 02/05/19 0609 02/05/19 0609 Results 24hrs Laboratory Tests Test 02/07/19 17:53 02/07/19 20:44 02/08/19 07:48 02/08/19 11:54 Bedside Glucose 138 141 108 137 Exam/Review of Systems Exam Vitals Vital Signs Date Temp Pulse Resp B/P (MAP) Pulse Ox O2 O2 Flow FiO2 Time Delivery Rate 02/08/19 98.1 69 18 186/78 98 Nasal 12:38 (114) Cannula 02/08/19 2.0 04:02 Intake and Output 02/07/19 02/07/19 02/08/19 1515:00 23:00 07:00 IntakeIntake Total 700 ml 600 ml BalanceBalance 700 ml 600 ml Exam Constitutional: alert, oriented Eyes: other (Right eye blindness) Respiratory: clear to auscultation Cardiovascular: regular rate and rhythm Gastrointestinal: soft, non-tender Musculoskeletal: nl extremities to inspection Extremities: normal pulses, edema, other (Right upper extremity AV fistula) Neurological: nl mental status Results Results 24hrs Laboratory Tests Test 02/07/19 17:53 02/07/19 20:44 02/08/19 07:48 02/08/19 11:54 Bedside Glucose 138 141 108 137 Medications Medication Current Medications Amiodarone HCl (Cordarone) 200 mg DAILY PO Last administered on 02/08/19 09:58; Admin Dose 200 MG; Start 01/27/19 at 09:00 Ascorbic Acid (Vitamin C) 500 mg DAILY PO Last administered on 02/08/19 09:57; Admin Dose 500 MG; Start 01/27/19 at 09:00 Atorvastatin Calcium (Lipitor) 20 mg QHS PO Last administered on 02/07/19 20:51; Admin Dose 20 MG; Start 01/26/19 at 21:00 Bisacodyl (Dulcolax) 10 mg Q24H PRN PO CONSTIPATION; Start 01/26/19 at 20:00 Citalopram Hydrobromide (Celexa) 20 mg DAILY PO Last administered on 02/08/19 09:57; Admin Dose 20 MG; Start 01/27/19 at 09:00 Docusate Sodium (Colace) 100 mg BID PO Last administered on 02/08/19 09:57; Admin Dose 100 MG; Start 01/26/19 at 21:00 Folic Acid (Folic Acid) 1 mg DAILY PO Last administered on 02/08/19 09:57; Admin Dose 1 MG; Start 01/27/19 at 09:00 Levothyroxine Sodium (Synthroid) 100 mcg BEFORE BREAKFAST PO Last administered on 02/08/19 05:45; Admin Dose 100 MCG; Start 01/27/19 at 07:00 Metoclopramide HCl (Reglan) 5 mg BEFORE MEALS PO Last administered on 02/07/19 17:54; Admin Dose 5 MG; Start 01/27/19 at 07:30 Multivit/Ca Carb/ B Cmplx/FA/Prenat (Wendi-Cathi) 1 tab DAILY PO Last a dministered on 02/08/19 09:57; Admin Dose 1 TAB; Start 01/27/19 at 09:00 Ondansetron HCl (Zofran Tab) 4 mg Q6H PRN PO NAUSEA AND/OR VOMITING Last administered on 01/30/19 10:43; Admin Dose 4 MG; Start 01/26/19 at 20:00 Pantoprazole (Protonix Tab) 40 mg DAILY PO Last administered on 02/08/19 09:57; Admin Dose 40 MG; Start 01/27/19 at 09:00 Polyethylene Glycol (Miralax) 17 gm DAILY PO Last administered on 02/06/19 09:31; Admin Dose 17 GM; Start 01/27/19 at 09:00 Prednisolone Acetate (Pred-Forte 1%) 1 drop BID RIGHT EYE Last administered on 02/08/19 09:58; Admin Dose 1 DROP; Start 01/26/19 at 21:00 Zinc Sulfate (Zinc Sulfate) 220 mg DAILY PO Last administered on 02/08/19 09:57; Admin Dose 220 MG; Start 01/27/19 at 09:00 Insulin Aspart (Novolog Insulin Pen) NOVOLOG *MODERATE* ALGORITHM WITH MEALS BEDTIME SC Last administered on 02/04/19 17:37; Admin Dose 2 UNIT; Start 01/26/19 at 21:00 Heparin Sodium (Porcine) (Heparin (5000 Units/1ml)) 5,000 unit BID SC Last administered on 02/08/19 10:10; Admin Dose 5,000 UNIT; Start 01/26/19 at 21:00 Morphine Sulfate (morphine) 2 mg Q4H PRN IV SEVERE PAIN LEVEL 7-10 Last administered on 02/08/19 10:00; Admin Dose 2 MG; Start 01/26/19 at 20:30 Miscellaneous Information 1 ea NOTE XX ; Start 01/26/19 at 23:45 Glucose (Glutose) 15 gm Q15M PRN PO DECREASED GLUCOSE; Start 01/26/19 at 23:45 Glucose (Glutose) 22.5 gm Q15M PRN PO DECREASED GLUCOSE; Start 01/26/19 at 23:45 Dextrose (D50w Syringe) 25 ml Q15M PRN IV DECREASED GLUCOSE Last administered on 01/28/19 07:50; Admin Dose 25 ML; Start 01/26/19 at 23:45 Dextrose (D50w Syringe) 50 ml Q15M PRN IV DECREASED GLUCOSE; Start 01/26/19 at 23:45 Glucagon (Glucagen) 1 mg Q15M PRN IM DECREASED GLUCOSE; Start 01/26/19 at 23:45 Glucose (Glutose) 15 gm Q15M PRN BUCCAL DECREASED GLUCOSE; Start 01/26/19 at 23:45 Alteplase, Recombinant (Cathflo (Activase)) 2 mg MAY REPEAT X1 PRN CATHETER IF CATHETER REMAINS OCCULUDED Last administered on 02/02/19 23:09; Admin Dose 2 MG; Start 01/27/19 at 07:00 Tramadol HCl (Ultram) 50 mg Q6H PO Last administered on 02/08/19 09:57; Admin Dose 50 MG; Start 01/27/19 at 08:00 Collagenase (Santyl) 1 applic DAILY TOP Last administered on 02/08/19 09:58; Admin Dose 1 APPLIC; Start 01/28/19 at 09:00 Sodium Hypochlorite (Dakin'S (Dilute )) 1 applic DAILY IRR Last administered on 02/08/19 09:58; Admin Dose 1 APPLIC; Start 01/28/19 at 09:00 Lorazepam (Ativan) 1 mg Q8H PRN PO ANXIETY; Start 01/27/19 at 22:30 Mupirocin (Bactroban) 1 applic BID TOP Last administered on 02/08/19 09:58; Admin Dose 1 APPLIC; Start 01/28/19 at 21:00 Epoetin Indra (Epogen (Esrd)) 8,000 units TuThSa@17 SC Last administered on 02/06/19 18:23; Admin Dose 8,000 UNITS; Start 01/30/19 at 17:00 Megestrol Acetate (Megace Susp) 400 mg DAILY PO Last administered on 02/08/19 09:57; Admin Dose 400 MG; Start 01/30/19 at 14:30 Linezolid (Zyvox) 600 mg BID PO Last administered on 02/08/19 09:57; Admin Dose 600 MG; Start 01/31/19 at 16:00 Amikacin Sulfate (Amikacin Iv Per Pharmacy) AMIKACIN PER PHARMACY NOTE XX ; Start 01/31/19 at 15:30 Amikacin Sulfate 300 mg/Sodium Chloride 101.2 ml @ 102 mls/hr AFTER DIALYSIS IVPB Last administered on 02/06/19at 22:54; Admin Dose 102 MLS/HR; Start 02/01/19 at 16:30 Lactulose (Enulose) 20 gm Q6H PRN PO CONSTIPATION; Start 02/04/19 at 11:00 Ondansetron HCl (Zofran Inj) 4 mg Q6H PRN IV NAUSEA AND/OR VOMITING Last administered on 02/04/19at 12:09; Admin Dose 4 MG; Start 02/04/19 at 12:00 Hydralazine HCl (Apresoline) 100 mg Q8 PO Last administered on 02/08/19at 05:37; Admin Dose 100 MG; Start 02/04/19 at 14:00 Metoprolol Tartrate (Lopressor) 50 mg BID PO ; Start 02/08/19 at 21:00 SIN IZAGUIRRE Feb 08, 2019 16:01
[2019-02-08] MEDS: METOPROLOL 50 MG TAB PO SCH (21:00)
--- NOTE | 2019-02-08 22:18 | PN ---
Date/Time of Note Date/Time of Note DATE: 02/08/19 TIME: 22:16 Assessment/Plan Lines/Catheters IV Catheter Type (from Nrs): PICC Line [place] in Place (from Nrs): No Assessment/Plan Chief Complaint/Hosp Course 1. Sacral and bilateral ischial wounds: wnd cx noted; status post sacrum and right ischial debridement 01/29/19 -Further debridement as needed -Continue local care> can follow with Dr. Sanchez as outpatient in wound clinic. -frequent turning and off-loading -low air loss mattress -vitamin c -short term zinc -optimize nutrition 2. Abdominal pain and generalized weakness: Status post EGD: Gastritis -further w/u per med team -PPI 3. ESRD -limit nephrotoxins -HD per renal -renally dose meds 4. Anemia: Colonoscopy pending -monitor and transfuse as needed 5. Diabetes with episodes of hypoglycemia; no hypoglycemia episodes-sugar control much improved -glucose management 6. Hypothyroidism -med mgt 7. Pleural effusions: -judicious fluid management Thank you, Subjective 24 Hr Interval Summary Intermittent back pain. H&H stable. No fevers, chills, sob, congested cough, cp, palpitations, hoffman, dizziness, nausea, vomiting, diarrhea, dysuria. Leukocytosis. Exam/Review of Systems Vital Signs Vitals Vital Signs Date Temp Pulse Resp B/P (MAP) Pulse Ox O2 O2 Flow FiO2 Time Delivery Rate 02/08/19 68 19 100/42 94 Nasal 2.0 20:30 (61) Cannula 02/08/19 98.7 20:00 Intake and Output 02/07/19 02/07/19 02/08/19 1515:00 23:00 07:00 IntakeIntake Total 700 ml 600 ml BalanceBalance 700 ml 600 ml Exam Free Text/Dictation Constitutional: alert, oriented, obese Psych: anxiety (minimal) Head: normocephalic, atraumatic Eyes: nl conjunctiva, EOMI, nl lids, nl sclera ENMT: nl external ears & nose, nl lips & teeth, mucosa pink and moist Neck: supple, non-tender; No jvd Respiratory: normal air movement; No congested cough, No labored breathing Cardiovascular: regular rate and rhythm, nl pulses; No edema Gastrointestinal: soft, non-tender, distended Genitourinary - Female: nl external genitalia Musculoskeletal: nl extremities to inspection, nl gait and stance Extremities: normal pulses Neurological: nl mental status, nl speech, nl strength Skin: other (sacral: Packed, no odor, minimal periwound erythema; right ischium: Packed, improved odor; left ischium: unstageable); No rash or lesions Results Result Diagram: 02/05/19 0609 02/05/19 0609 ALFREDO SANCHEZ MD Feb 08, 2019 22:18
[2019-02-09] MEDS: ZYVOX 600 MG TAB PO SCH ×3 (00:19→21:04)
[2019-02-09] MEDS: DOCUSATE SODIUM 100 MG CAP PO SCH ×3 (00:19→21:04)
[2019-02-09] MEDS: ATORVASTATIN 20 MG TAB PO SCH ×2 (00:19→21:04)
[2019-02-09] MEDS: BALSAM PERU/CASTOR OIL 60 GM TUBE TOP SCH ×3 (00:20→21:06)
[2019-02-09] MEDS: traMADol 50 MG TAB PO SCH ×5 (00:22→21:04)
[2019-02-09] MEDS: HEPARIN 5,000 UNIT/1 ML VIAL SC SCH ×3 (00:23→21:19)
[2019-02-09] MEDS: AMIKACIN 300 MG in SOD CHLORIDE 0.9% 100 ML IVPB SCH (00:41)
[2019-02-09 02:11] VITALS: BP 98/42; PULSE 67; RESP 18
[2019-02-09] MEDS: LEVOTHYROXINE 100 MCG TAB PO SCH (06:23)
[2019-02-09] MEDS: METOCLOPRAMIDE 5 MG TAB PO SCH ×3 (07:30→18:03)
[2019-02-09] MEDS: INSULIN ASPART [NOVOLOG] 3 ML PEN SC SCH ×4 (08:00→21:00)
[2019-02-09 08:25] VITALS: BP 152/68; PULSE 71; RESP 18
[2019-02-09] MEDS: POLYETHYLENE GLYCOL 17 GM PACKET PO SCH (08:40)
[2019-02-09] MEDS: MULTIVIT/CA CARB/B CMPLX/FA TAB PO SCH (08:52)
[2019-02-09] MEDS: ZINC SULFATE 220 MG CAP PO SCH (08:52)
[2019-02-09] MEDS: PANTOPRAZOLE (EC) 40 MG TAB PO SCH (08:53)
[2019-02-09] MEDS: COLLAGENASE 5 GM (UD JAR) TOP SCH (08:54)
[2019-02-09] MEDS: AMIODARONE 200 MG TAB PO SCH (08:54)
[2019-02-09] MEDS: PREDNISOLONE ACET 1% 5 ML OPH RIGHT EYE SCH ×2 (08:54→21:05)
[2019-02-09] MEDS: METOPROLOL 50 MG TAB PO SCH ×2 (08:54→21:04)
[2019-02-09] MEDS: ASCORBIC ACID 500 MG TAB PO SCH (08:54)
[2019-02-09] MEDS: FOLIC ACID 1 MG TAB PO SCH (08:54)
[2019-02-09] MEDS: CITALOPRAM 20 MG TAB PO SCH (08:54)
[2019-02-09] MEDS: MUPIROCIN 2% 22 GM OINT TOP SCH ×2 (08:55→21:05)
[2019-02-09] MEDS: SODIUM HYPOCHLORITE (1/40) 1 LITER BTL IRR SCH (08:56)
[2019-02-09] MEDS: MEGESTROL (40 MG/ML) 10ML CUP PO SCH (08:57)
--- NOTE | 2019-02-09 09:42 | PN ---
Date/Time of Note Date/Time of Note DATE: 02/09/19 TIME: 09:37 Assessment/Plan Lines/Catheters IV Catheter Type (from [facility]): PICC Line [place] in Place (from [facility]): No Assessment/Plan Chief Complaint/Hosp Course 1. Sacral and bilateral ischial wounds: wnd cx noted; status post sacrum and right ischial debridement 01/29/19 -Further debridement as needed -Continue local care> changed treatment today. Can follow with Dr. Almanza as outpatient in wound clinic. -frequent turning and off-loading -low air loss mattress -vitamin c -short term zinc -optimize nutrition 2. Abdominal pain and generalized weakness: Status post EGD: Gastritis -further w/u per med team -PPI 3. ESRD -limit nephrotoxins -HD per renal -renally dose meds 4. Anemia: Colonoscopy pending -monitor and transfuse as needed 5. Diabetes with episodes of hypoglycemia; no hypoglycemia episodes-sugar control much improved -glucose management 6. Hypothyroidism -med mgt 7. Pleural effusions: -Pulmonary consult -fluid management Thank you. Patient seen and examined in collaboration with Dr. Simón Almanza. Subjective 24 Hr Interval Summary No fevers, chills, sob, congested cough, cp, palpitations, hoffman, dizziness, nausea, vomiting, diarrhea, dysuria, excessive wound drainage or odor. Exam/Review of Systems Vital Signs Vitals Vital Signs Date Temp Pulse Resp B/P (MAP) Pulse Ox O2 O2 Flow FiO2 Time Delivery Rate 02/09/19 98.8 71 18 152/68 98 08:25 (96) 02/09/19 2.0 05:53 02/08/19 Nasal 21:00 Cannula Intake and Output 02/08/19 02/08/19 02/09/19 1414:59 22:59 06:59 IntakeIntake Total 550 ml 101.2 ml OutputOutput Total 2400 ml BalanceBalance 550 ml -2298.8 ml Exam Free Text/Dictation Constitutional: alert, oriented, obese Psych: anxiety (minimal) Head: normocephalic, atraumatic Eyes: nl conjunctiva, EOMI, nl lids, nl sclera ENMT: nl external ears & nose, nl lips & teeth, mucosa pink and moist Neck: supple, non-tender; No jvd Respiratory: normal air movement; No congested cough, No labored breathing Cardiovascular: regular rate and rhythm, nl pulses; No edema Gastrointestinal: soft, non-tender, distended Genitourinary - Female: nl external genitalia Musculoskeletal: nl extremities to inspection, nl gait and stance Extremities: normal pulses Neurological: nl mental status, nl speech, nl strength Skin: other (sacral: Packed, no odor, minimal periwound erythema; right ischium: Packed, improved odor; left ischium: unstageable); No rash or lesions Results Result Diagram: 02/05/19 0609 02/05/19 0609 ARSLAN COATES NP Feb 09, 2019 09:42
--- NOTE | 2019-02-09 10:15 | CONS ---
Consult Date/Type/Reason Admit Date/Time Jan 26, 2019 at 17:32 Initial Consult Date 01/27/19 Requesting Provider: ALEXUS VALENCIA MD Date/Time of Note DATE: 02/09/19 TIME: 10:13 Subjective NO acute events - pt had an episode of N&V after meal today - better now - no CPnoted. Off tele now - will re-check VS. ROS: No fever, no chills, + nausea, + vomiting, no diarrhea/constipation No recent weight changes No chest pain, no PND, no orthopnea No dizziness, blurred vision No thirst, no heat or cold intolerance Objective Vitals Vital Signs Date Temp Pulse Resp B/P (MAP) Pulse Ox O2 O2 Flow FiO2 Time Delivery Rate 02/09/19 98.8 71 18 152/68 98 08:25 (96) 02/09/19 2.0 05:53 02/08/19 Nasal 21:00 Cannula Intake and Output 02/08/19 02/08/19 02/09/19 1515:00 23:00 07:00 IntakeIntake Total 550 ml 101.2 ml OutputOutput Total 2400 ml BalanceBalance 550 ml -2298.8 ml Exam General: WN/WD/NAD, AOx 2-3 HEENT: Unicetric/atraumatic/EOMI (follow commands) NECK: JVD elevated, no thyromegaly Lymph: no lymphadenopathy HEART: regular with no S3, II/ systolic murmur at apex LUNGS: Coarse sounds ABD: soft, NT, ND, +BS : Intact Neuro: non focal SKIN: chronic changes EXT: trace edema Results/Medications Result Diagram: 02/09/19 0855 02/05/19 0609 Results 24 hrs Laboratory Tests Test 02/08/19 11:54 02/08/19 17:46 02/08/19 21:14 02/09/19 08:03 Bedside Glucose 137 128 113 104 Test 02/09/19 08:55 White Blood Count 15.5 #H Red Blood Count 3.22 L Hemoglobin 9.3 L Hematocrit 31.7 L Mean Corpuscular Volume 98.4 Mean Corpuscular 28.9 L Hemoglobin Mean Corpuscular 29.3 L Hemoglobin Concent Red Cell Distribution 16.4 H Width Platelet Count 203 Mean Platelet Volume 8.3 Immature Granulocytes % 0.700 H Neutrophils % 87.8 H Lymphocytes % 5.7 L Monocytes % 5.0 Eosinophils % 0.5 Basophils % 0.3 Nucleated Red Blood 0.0 Cells % Immature Granulocytes # 0.110 H Neutrophils # 13.6 H Lymphocytes # 0.9 Monocytes # 0.8 Eosinophils # 0.1 Basophils # 0.1 Nucleated Red Blood 0.0 Cells # Home Meds Reported Medications Insulin Lispro (Humalog Kwikpen U-100) 100 Unit/1 Ml Insuln.pen, 0 SQ SLIDING SCALE, EA IF BS 151-200=1 UNIT,201-250=2 UNITS,251-300=3 UNITS,301-350=4 UNITS,351-400=5 UNITS, IF >400=6 UNITS AND CALL 01/26/19 Dariel [place] Oil (Venelex Ointment) 60 Gm Oint..gm., 1 APPLIC TOP NEEDED, #1 TUB 01/26/19 Multivit/Ca Carb/B Cmplx/Fa* (Wendi-Cathi*) 1 Tab Tab, 1 TAB PO DAILY, TAB 01/26/19 Metoclopramide* (Reglan*) 5 Mg Tablet, 5 MG PO BEFORE MEALS, TAB 01/26/19 Protein Supplement (Promod) 946 Ml Liquid, 30 ML PO DAILY 01/26/19 Lactose-Free Food (Nutritional Supplement) 237 Ml Liquid, 1 PO BID 01/26/19 Morphine Sulfate* (Morphine* Liq) 10 Mg/0.5 Ml Disp.syrin, 6 MG SL Q4H PRN for PAIN 7-10/10, ML 01/26/19 Ipratropium-Albuterol (Ipratropium-Albuterol) 0.5-3 Mg/3 Ml Ampul.neb, 3 ML INHALATION TID, #30 VIAL 01/26/19 Heparin Sod,Porcine/0.9 % NaCl (Heparin 5,000 Unit/5 ml-Ns) 5,000 Unit/5 Ml Sy ringe, 5000 UNIT IV Q8H 01/26/19 Ondansetron Hcl* (Zofran*) 4 Mg Tablet, 4 MG PO Q6H PRN for NAUSEA AND OR VOMITING, TAB 01/26/19 Citalopram Hydrobromide* (Citalopram Hydrobromide*) 20 Mg Tablet, 20 MG PO DAILY, #30 TAB 01/26/19 Bisacodyl* (Bisacodyl*) 5 Mg Tablet.dr, 10 MG PO Q24H PRN for CONSTIPATION, TAB 01/26/19 Diphenhydramine Hcl* (Diphenhydramine Hcl*) 25 Mg Capsule, 25 MG PO Q6 PRN for ITCHING, CAP 01/26/19 Polyethylene Glycol* (Polyethylene Glycol*) 17 Gm Powd.pack, 17 GM PO DAILY, #30 PACKET 11/18/18 Pantoprazole* (Pantoprazole*) 40 Mg Tablet.dr, 40 MG PO DAILY, TAB 11/18/18 Metoprolol Tartrate* (Lopressor*) 25 Mg Tablet, 25 MG PO BID, #60 TAB HOLD IF SBP<110 OR HR<60 11/18/18 Losartan Potassium* (Losartan Potassium*) 50 Mg Tablet, 50 MG PO BID, TAB HOLD IFSBP<110 OR HR<60 11/18/18 Levothyroxine Sodium* (Levothyroxine Sodium*) 100 Mcg Tablet, 100 MCG PO BEFORE BREAKFAST, #30 TAB 11/18/18 Insulin Detemir (Levemir) 100 Unit/1 Ml Vial, 6 UNITS SQ QHS 11/18/18 Folic Acid* (Folic Acid*) 1 Mg Tablet, 1 MG PO DAILY, TAB 11/18/18 Zinc Sulfate* (Zinc Sulfate*) 220 Mg Cap, 220 MG PO DAILY, CAP 11/18/18 Ascorbic Acid (Vitamin C) 500 Mg Tab, 500 MG PO DAILY, TAB 11/18/18 Acetaminophen* (Acetaminophen*) 325 Mg Tablet, 325 MG PO Q4H PRN for PAIN AND OR ELEVATED TEMP, #30 TAB FOR MILD PAIN 1-01/1711/18/18 Trazodone Hcl* (Trazodone Hcl*) 50 Mg Tablet, 50 MG PO QHS, #30 TAB 11/18/18 Tramadol HCl (Tramadol HCl) 50 Mg Tablet, 50 MG PO Q6H PRN for PAIN, #120 TAB 11/18/18 Prednisolone Acetate* (Pred Forte*) 5 Ml Susp, 1 DROP RIGHT EYE BID, EA 11/18/18 Docusate Sodium* (Colace*) 100 Mg Capsule, 100 MG PO BID, #30 CAP 11/18/18 Atorvastatin Calcium* (Atorvastatin Calcium*) 20 Mg Tablet, 20 MG PO QHS, #30 TAB 11/18/18 Amlodipine Besylate* (Norvasc*) 5 Mg Tablet, 5 MG PO QHS, TAB HOLD IF SBP<110 OR HR<60 11/18/18 Amiodarone Hcl* (Amiodarone Hcl*) 200 Mg Tablet, 200 MG PO DAILY, #30 TAB 11/18/18 Medications Current Medications Amiodarone HCl (Cordarone) 200 mg DAILY PO Last administered on 02/09/19 08:54; Admin Dose 200 MG; Start 01/27/19 at 09:00 Ascorbic Acid (Vitamin C) 500 mg DAILY PO Last administered on 02/09/19 08:54; Admin Dose 500 MG; Start 01/27/19 at 09:00 Atorvastatin Calcium (Lipitor) 20 mg QHS PO Last administered on 02/09/19 00:19; Admin Dose 20 MG; Start 01/26/19 at 21:00 Bisacodyl (Dulcolax) 10 mg Q24H PRN PO CONSTIPATION; Start 01/26/19 at 20:00 Citalopram Hydrobromide (Celexa) 20 mg DAILY PO Last administered on 02/09/19 08:54; Admin Dose 20 MG; Start 01/27/19 at 09:00 Docusate Sodium (Colace) 100 mg BID PO Last administered on 02/09/19 08:53; Admin Dose 100 MG; Start 01/26/19 at 21:00 Folic Acid (Folic Acid) 1 mg DAILY PO Last administered on 02/09/19 08:54; Admin Dose 1 MG; Start 01/27/19 at 09:00 Levothyroxine Sodium (Synthroid) 100 mcg BEFORE BREAKFAST PO Last administered on 02/09/19 06:23; Admin Dose 100 MCG; Start 01/27/19 at 07:00 Metoclopramide HCl (Reglan) 5 mg BEFORE MEALS PO Last administered on 02/07/19 17:54; Admin Dose 5 MG; Start 01/27/19 at 07:30 Multivit/Ca Carb/ B Cmplx/FA/Prenat (Wendi-Cathi) 1 tab DAILY PO Last administered on 02/09/19 08:52; Admin Dose 1 TAB; Start 01/27/19 at 09:00 Ondansetron HCl (Zofran Tab) 4 mg Q6H PRN PO NAUSEA AND/OR VOMITING Last administered on 01/30/19 10:43; Admin Dose 4 MG; Start 01/26/19 at 20:00 Pantoprazole (Protonix Tab) 40 mg DAILY PO Last administered on 02/09/19 08:53; Admin Dose 40 MG; Start 01/27/19 at 09:00 Polyethylene Glycol (Miralax) 17 gm DAILY PO Last administered on 02/09/19 08:40; Admin Dose 17 GM; Start 01/27/19 at 09:00 Prednisolone Acetate (Pred-Forte 1%) 1 drop BID RIGHT EYE Last administered on 02/09/19 08:54; Admin Dose 1 DROP; Start 01/26/19 at 21:00 Zinc Sulfate (Zinc Sulfate) 220 mg DAILY PO Last administered on 02/09/19 08:52; Admin Dose 220 MG; Start 01/27/19 at 09:00 Insulin Aspart (Novolog Insulin Pen) NOVOLOG *MODERATE* ALGORITHM WITH MEALS BEDTIME SC Last administered on 02/04/19 17:37; Admin Dose 2 UNIT; Start 01/26/19 at 21:00 Heparin Sodium (Porcine) (Heparin (5000 Units/1ml)) 5,000 unit BID SC Last administered on 02/09/19 08:56; Admin Dose 5,000 UNIT; Start 01/26/19 at 21:00 Morphine Sulfate (morphine) 2 mg Q4H PRN IV SEVERE PAIN LEVEL 7-10 Last administered on 02/08/19 10:00; Admin Dose 2 MG; Start 01/26/19 at 20:30 Miscellaneous Information 1 ea NOTE XX ; Start 01/26/19 at 23:45 Glucose (Glutose) 15 gm Q15M PRN PO DECREASED GLUCOSE; Start 01/26/19 at 23:45 Glucose (Glutose) 22.5 gm Q15M PRN PO DECREASED GLUCOSE; Start 01/26/19 at 23:45 Dextrose (D50w Syringe) 25 ml Q15M PRN IV DECREASED GLUCOSE Last administered on 01/28/19 07:50; Admin Dose 25 ML; Start 01/26/19 at 23:45 Dextrose (D50w Syringe) 50 ml Q15M PRN IV DECREASED GLUCOSE; Start 01/26/19 at 23:45 Glucagon (Glucagen) 1 mg Q15M PRN IM DECREASED GLUCOSE; Start 01/26/19 at 23:45 Glucose (Glutose) 15 gm Q15M PRN BUCCAL DECREASED GLUCOSE; Start 01/26/19 at 23:45 Alteplase, Recombinant (Cathflo (Activase)) 2 mg MAY REPEAT X1 PRN CATHETER IF CATHETER REMAINS OCCULUDED Last administered on 02/02/19 23:09; Admin Dose 2 MG; Start 01/27/19 at 07:00 Tramadol HCl (Ultram) 50 mg Q6H PO Last administered on 02/09/19 08:53; Admin Dose 50 MG; Start 01/27/19 at 08:00 Collagenase (Santyl) 1 applic DAILY TOP Last administered on 02/09/19 08:54; Admin Dose 1 APPLIC; Start 01/28/19 at 09:00 Sodium Hypochlorite (Dakin'S (Dilute )) 1 applic DAILY IRR Last administer ed on 02/09/19 08:56; Admin Dose 1 APPLIC; Start 01/28/19 at 09:00 Lorazepam (Ativan) 1 mg Q8H PRN PO ANXIETY; Start 01/27/19 at 22:30 Mupirocin (Bactroban) 1 applic BID TOP Last administered on 02/09/19 08:55; Admin Dose 1 APPLIC; Start 01/28/19 at 21:00 Epoetin Indra (Epogen (Esrd)) 8,000 units TuThSa@17 SC Last administered on 02/06/19 18:23; Admin Dose 8,000 UNITS; Start 01/30/19 at 17:00 Megestrol Acetate (Megace Susp) 400 mg DAILY PO Last administered on 02/09/19 08:57; Admin Dose 400 MG; Start 01/30/19 at 14:30 Linezolid (Zyvox) 600 mg BID PO Last administered on 02/09/19 08:53; Admin Dose 600 MG; Start 01/31/19 at 16:00 Amikacin Sulfate (Amikacin Iv Per Pharmacy) AMIKACIN PER PHARMACY NOTE XX ; Start 01/31/19 at 15:30 Amikacin Sulfate 300 mg/Sodium Chloride 101.2 ml @ 102 mls/hr AFTER DIALYSIS IVPB Last administered on 02/09/19 00:41; Admin Dose 102 MLS/HR; Start 02/01/19 at 16:30 Lactulose (Enulose) 20 gm Q6H PRN PO CONSTIPATION; Start 02/04/19 at 11:00 Ondansetron HCl (Zofran Inj) 4 mg Q6H PRN IV NAUSEA AND/OR VOMITING Last administered on 02/04/19at 12:09; Admin Dose 4 MG; Start 02/04/19 at 12:00 Hydralazine HCl (Apresoline) 100 mg Q8 PO Last administered on 02/09/19at 05:45; Admin Dose 100 MG; Start 02/04/19 at 14:00 Metoprolol Tartrate (Lopressor) 50 mg BID PO Last administered on 02/09/19at 08:54; Admin Dose 50 MG; Start 02/08/19 at 21:00 Assessment/Plan Hospital Course (Demo Recall) 1. Preop evaluation. The patient to undergo EGD whose 2D echo I just read revealing EF lower limits of normal, approximately 50% with no significant contraindicated valvular lesions and negative troponin x1 since admit, patient is okay to proceed at a moderate cardiovascular risk. Now post-op s/p endoscopy and debridement of decub ulcer - well tolerated - no tachy-cassie arrhythmia on tele now Con't to recover. BETTER now. Off tele - hemodynamically stable. 2. Congestive heart failure, diastolic acute on chronic- better now, CHRONIC - better fluid status now. Improved by exam. Con't to keep euvolemic. 3. Hypertension - BP in goodrange now - re-check. In range. 4. Cardiac arrhythmia, on amiodarone, in sinus rhythm by EKG - sinus now - rate controlled. 5. Hypothyroidism. 6. Diabetes mellitus- on meds, keep euglycemic - on meds.Keep euglycemic. 7. Nausea and vomiting - another episodes - GI to follow. 8. Generalized weakness. 9. Decubitus ulcers s/p debridement - will monitor clinically - stable. 10. Anemia- H/H stable - no bleeding now 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 FAY VORA MD Feb 09, 2019 10:15
--- NOTE | 2019-02-09 12:06 | CONS ---
Assessment/Plan Assessment/Plan Assessment/Plan (Daily) - ESRD on Hemodialysis - Anemia of Chronic Disease - DM / DM Nephropathy - CAD / CHF - Hypoalbuminia - Hypothyroid - Failure to thrive - Leukocytosis - Non healing wound PLAN: Bedside dialysis Aim for UD ~ 1-2 liter as tolerates IV Antibiotics Local wound care Follow up on H/H ( on long acting EPO as out patient ) High protein diet / Supplements Had HD yesterday Plan for HD next 01/29/2019 Monitor H/H High Protein diet More awake & alert Poor appetite with low albumin High protein diet Add Nepro supplement Add Megace Increase EPO Check IRON Bedside dialysis 01/29/2019 using 3K+ bath today Post debridement of the sacral wound Next HD Friday Increase protein Diet Continue with planned dialysis on Encourage increase protein intake + supplement Follow up with H/H Consultation Date/Type/Reason Admit Date/Time Jan 26, 2019 at 17:32 Initial Consult Date 01/27/19 Type of Consult - Nephrology ( Dialysis Dependent ) Requesting Provider: ALEXUS VALENCIA MD Date/Time of Note DATE: 02/09/19 TIME: 12:04 24 HR Interval Summary Constitutional: no complaints, improved Exam/Review of Systems Exam Vitals Vital Signs Date Temp Pulse Resp B/P (MAP) Pulse Ox O2 O2 Flow FiO2 Time Delivery Rate 02/09/19 98.8 71 18 152/68 98 08:25 (96) 02/09/19 2.0 05:53 02/08/19 Nasal 21:00 Cannula Intake and Output 02/08/19 02/08/19 02/09/19 1515:00 23:00 07:00 IntakeIntake Total 550 ml 101.2 ml OutputOutput Total 2400 ml BalanceBalance 550 ml -2298.8 ml Constitutional: alert Respiratory: crackles/rales Cardiovascular: regular rate and rhythm, edema, systolic murmur Gastrointestinal: soft Results Result Diagram: 02/09/19 0855 02/09/19 0855 Results 24hrs Laboratory Tests Test 02/08/19 17:46 02/08/19 21:14 02/09/19 08:03 02/09/19 08:55 Bedside Glucose 128 113 104 White Blood Count 15.5 #H Red Blood Count 3.22 L Hemoglobin 9.3 L Hematocrit 31.7 L Mean Corpuscular Volume 98.4 Mean Corpuscular 28.9 L Hemoglobin Mean Corpuscular 29.3 L Hemoglobin Concent Red Cell Distribution 16.4 H Width Platelet Count 203 Mean Platelet Volume 8.3 Immature Granulocytes % 0.700 H Neutrophils % 87.8 H Lymphocytes % 5.7 L Monocytes % 5.0 Eosinophils % 0.5 Basophils % 0.3 Nucleated Red Blood 0.0 Cells % Immature Granulocytes # 0.110 H Neutrophils # 13.6 H Lymphocytes # 0.9 Monocytes # 0.8 Eosinophils # 0.1 Basophils # 0.1 Nucleated Red Blood 0.0 Cells # Sodium Level 138 Potassium Level 4.0 Chloride Level 100 Carbon Dioxide Level 27 Anion Gap 11 Blood Urea Nitrogen 15 Creatinine 2.24 H Est Glomerular Filtrat 22 L Rate mL/min Glucose Level 114 Calcium Level 8.6 Medications Medication Current Medications Amiodarone HCl (Cordarone) 200 mg DAILY PO Last administered on 02/09/19at 08:54; Admin Dose 200 MG; Start 01/27/19 at 09:00 Ascorbic Acid (Vitamin C) 500 mg DAILY PO Last administered on 02/09/19 08:54; Admin Dose 500 MG; Start 01/27/19 at 09:00 Atorvastatin Calcium (Lipitor) 20 mg QHS PO Last administered on 02/09/19 00:19; Admin Dose 20 MG; Start 01/26/19 at 21:00 Bisacodyl (Dulcolax) 10 mg Q24H PRN PO CONSTIPATION; Start 01/26/19 at 20:00 Citalopram Hydrobromide (Celexa) 20 mg DAILY PO Last administered on 02/09/19 08:54; Admin Dose 20 MG; Start 01/27/19 at 09:00 Docusate Sodium (Colace) 100 mg BID PO Last administered on 02/09/19 08:53; Admin Dose 100 MG; Start 01/26/19 at 21:00 Folic Acid (Folic Acid) 1 mg DAILY PO Last administered on 02/09/19 08:54; Admin Dose 1 MG; Start 01/27/19 at 09:00 Levothyroxine Sodium (Synthroid) 100 mcg BEFORE BREAKFAST PO Last administered on 02/09/19 06:23; Admin Dose 100 MCG; Start 01/27/19 at 07:00 Metoclopramide HCl (Reglan) 5 mg BEFORE MEALS PO Last administered on 02/07/19 17:54; Admin Dose 5 MG; Start 01/27/19 at 07:30 Multivit/Ca Carb/ B Cmplx/FA/Prenat (Wendi-Cathi) 1 tab DAILY PO Last administered on 02/09/19 08:52; Admin Dose 1 TAB; Start 01/27/19 at 09:00 Ondansetron HCl (Zofran Tab) 4 mg Q6H PRN PO NAUSEA AND/OR VOMITING Last administered on 01/30/19 10:43; Admin Dose 4 MG; Start 01/26/19 at 20:00 Pantoprazole (Protonix Tab) 40 mg DAILY PO Last administered on 02/09/19 08:53; Admin Dose 40 MG; Start 01/27/19 at 09:00 Polyethylene Glycol (Miralax) 17 gm DAILY PO Last administered on 02/09/19 08:40; Admin Dose 17 GM; Start 01/27/19 at 09:00 Prednisolone Acetate (Pred-Forte 1%) 1 drop BID RIGHT EYE Last administered on 02/09/19 08:54; Admin Dose 1 DROP; Start 01/26/19 at 21:00 Zinc Sulfate (Zinc Sulfate) 220 mg DAILY PO Last administered on 02/09/19 08:52; Admin Dose 220 MG; Start 01/27/19 at 09:00 Insulin Aspart (Novolog Insulin Pen) NOVOLOG *MODERATE* ALGORITHM WITH MEALS BEDTIME SC Last administered on 02/04/19 17:37; Admin Dose 2 UNIT; Start 01/26/19 at 21:00 Heparin Sodium (Porcine) (Heparin (5000 Units/1ml)) 5,000 unit BID SC Last administered on 02/09/19 08:56; Admin Dose 5,000 UNIT; Start 01/26/19 at 21:00 Morphine Sulfate (morphine) 2 mg Q4H PRN IV SEVERE PAIN LEVEL 7-10 Last adm inistered on 02/08/19 10:00; Admin Dose 2 MG; Start 01/26/19 at 20:30 Miscellaneous Information 1 ea NOTE XX ; Start 01/26/19 at 23:45 Glucose (Glutose) 15 gm Q15M PRN PO DECREASED GLUCOSE; Start 01/26/19 at 23:45 Glucose (Glutose) 22.5 gm Q15M PRN PO DECREASED GLUCOSE; Start 01/26/19 at 23:45 Dextrose (D50w Syringe) 25 ml Q15M PRN IV DECREASED GLUCOSE Last administered on 01/28/19 07:50; Admin Dose 25 ML; Start 01/26/19 at 23:45 Dextrose (D50w Syringe) 50 ml Q15M PRN IV DECREASED GLUCOSE; Start 01/26/19 at 23:45 Glucagon (Glucagen) 1 mg Q15M PRN IM DECREASED GLUCOSE; Start 01/26/19 at 23:45 Glucose (Glutose) 15 gm Q15M PRN BUCCAL DECREASED GLUCOSE; Start 01/26/19 at 23:45 Alteplase, Recombinant (Cathflo (Activase)) 2 mg MAY REPEAT X1 PRN CATHETER IF CATHETER REMAINS OCCULUDED Last administered on 02/02/19 23:09; Admin Dose 2 MG; Start 01/27/19 at 07:00 Tramadol HCl (Ultram) 50 mg Q6H PO Last administered on 02/09/19 08:53; Admin Dose 50 MG; Start 01/27/19 at 08:00 Collagenase (Santyl) 1 applic DAILY TOP Last administered on 02/09/19 08:54; Admin Dose 1 APPLIC; Start 01/28/19 at 09:00 Sodium Hypochlorite (Dakin'S (Dilute )) 1 applic DAILY IRR Last administered on 02/09/19 08:56; Admin Dose 1 APPLIC; Start 01/28/19 at 09:00 Lorazepam (Ativan) 1 mg Q8H PRN PO ANXIETY; Start 01/27/19 at 22:30 Mupirocin (Bactroban) 1 applic BID TOP Last administered on 02/09/19 08:55; Admin Dose 1 APPLIC; Start 01/28/19 at 21:00 Megestrol Acetate (Megace Susp) 400 mg DAILY PO Last administered on 02/09/19 08:57; Admin Dose 400 MG; Start 01/30/19 at 14:30 Linezolid (Zyvox) 600 mg BID PO Last administered on 02/09/19 08:53; Admin Dose 600 MG; Start 01/31/19 at 16:00 Amikacin Sulfate (Amikacin Iv Per Pharmacy) AMIKACIN PER PHARMACY NOTE XX ; Start 01/31/19 at 15:30 Amikacin Sulfate 300 mg/Sodium Chloride 101.2 ml @ 102 mls/hr AFTER DIALYSIS IVPB Last administered on 02/09/19 00:41; Admin Dose 102 MLS/HR; Start 02/01/19 at 16:30 Lactulose (Enulose) 20 gm Q6H PRN PO CONSTIPATION; Start 02/04/19 at 11:00 Ondansetron HCl (Zofran Inj) 4 mg Q6H PRN IV NAUSEA AND/OR VOMITING Last administered on 02/04/19 12:09; Admin Dose 4 MG; Start 02/04/19 at 12:00 Hydralazine HCl (Apresoline) 100 mg Q8 PO Last administered on 02/09/19 05:45; Admin Dose 100 MG; Start 02/04/19 at 14:00 Metoprolol Tartrate (Lopressor) 50 mg BID PO Last administered on 02/09/19 08:54; Admin Dose 50 MG; Start 02/08/19 at 21:00 Epoetin Indra-epbx (Retacrit (Esrd)) 8,000 unit TuTa@17 SQ ; Start 02/09/19 at 17:00 ANIBAL ALMANZAR MD Feb 09, 2019 12:06
--- NOTE | 2019-02-09 12:26 | CONS ---
Assessment/Plan Assessment/Plan Hospital Course (Demo Recall) All noted, c/o nausea, refusing Reglan, looks comfortable Microbiology sacral wound culture grew Proteus, E. coli ESBL, VRE, and MRSA Antimicrobials: Amikacin, Zyvox PHYSICAL EXAMINATION: GENERAL: This is a fragile, wasted, well-developed, elderly woman, who is in no distress. HEENT: Head atraumatic, normocephalic. Sclerae anicteric. The patient has right eye blindness. Buccal mucosa pale, dry. NECK: Supple. CHEST: Rise symmetrical. Breath sounds diminished to bases. HEART: S1, S2. ABDOMEN: Obese, soft, bowel tones present. EXTREMITIES: Bilateral edema. SKIN: The patient has a large necrotic wounds on bilateral buttocks, left buttock and left posterior thigh area , also, necrotic wound. The patient has pressure sores on her left heel as well. Assessment: 1. Multiple necrotic infected wounds, s/p debridement 2. End-stage renal disease, hemodialysis dependent 3. Diabetes 4. Hypertension 5. MRSA colonization 6. HCAP==> LLL Plan: WBC increased to 15.5, check cxr and urine cx, add empiric antifungal coverage, wound care per surgical recommendations Consultation Date/Type/Reason Admit Date/Time Jan 26, 2019 at 17:32 Initial Consult Date 01/27/19 Type of Consult id Requesting Provider: ALEXUS VALENCIA MD Date/Time of Note DATE: 02/09/19 TIME: 12:24 Exam/Review of Systems Exam Vitals Vital Signs Date Temp Pulse Resp B/P (MAP) Pulse Ox O2 O2 Flow FiO2 Time Delivery Rate 02/09/19 98.8 71 18 152/68 98 08:25 (96) 02/09/19 2.0 05:53 02/08/19 Nasal 21:00 Cannula Intake and Output 02/08/19 02/08/19 02/09/19 1515:00 23:00 07:00 IntakeIntake Total 550 ml 101.2 ml OutputOutput Total 2400 ml BalanceBalance 550 ml -2298.8 ml Results Result Diagram: 02/09/19 0855 02/09/19 0855 Results 24hrs Laboratory Tests Test 02/08/19 17:46 02/08/19 21:14 02/09/19 08:03 02/09/19 08:55 Bedside Glucose 128 113 104 White Blood Count 15.5 #H Red Blood Count 3.22 L Hemoglobin 9.3 L Hematocrit 31.7 L Mean Corpuscular Volume 98.4 Mean Corpuscular 28.9 L Hemoglobin Mean Corpuscular 29.3 L Hemoglobin Concent Red Cell Distribution 16.4 H Width Platelet Count 203 Mean Platelet Volume 8.3 Immature Granulocytes % 0.700 H Neutrophils % 87.8 H Lymphocytes % 5.7 L Monocytes % 5.0 Eosinophils % 0.5 Basophils % 0.3 Nucleated Red Blood 0.0 Cells % Immature Granulocytes # 0.110 H Neutrophils # 13.6 H Lymphocytes # 0.9 Monocytes # 0.8 Eosinophils # 0.1 Basophils # 0.1 Nucleated Red Blood 0.0 Cells # Sodium Level 138 Potassium Level 4.0 Chloride Level 100 Carbon Dioxide Level 27 Anion Gap 11 Blood Urea Nitrogen 15 Creatinine 2.24 H Est Glomerular Filtrat 22 L Rate mL/min Glucose Level 114 Calcium Level 8.6 Test 02/09/19 12:12 Bedside Glucose 120 Medications Medication Current Medications Amiodarone HCl (Cordarone) 200 mg DAILY PO Last administered on 02/09/19 08:54; Admin Dose 200 MG; Start 01/27/19 at 09:00 Ascorbic Acid (Vitamin C) 500 mg DAILY PO Last administered on 02/09/19 08:54; Admin Dose 500 MG; Start 01/27/19 at 09:00 Atorvastatin Calcium (Lipitor) 20 mg QHS PO Last administered on 02/09/19 00:19; Admin Dose 20 MG; Start 01/26/19 at 21:00 Bisacodyl (Dulcolax) 10 mg Q24H PRN PO CONSTIPATION; Start 01/26/19 at 20:00 Citalopram Hydrobromide (Celexa) 20 mg DAILY PO Last administered on 02/09/19 08:54; Admin Dose 20 MG; Start 01/27/19 at 09:00 Docusate Sodium (Colace) 100 mg BID PO Last administered on 02/09/19 08:53; Admin Dose 100 MG; Start 01/26/19 at 21:00 Folic Acid (Folic Acid) 1 mg DAILY PO Last administered on 02/09/19 08:54; Admin Dose 1 MG; Start 01/27/19 at 09:00 Levothyroxine Sodium (Synthroid) 100 mcg BEFORE BREAKFAST PO Last administered on 02/09/19 06:23; Admin Dose 100 MCG; Start 01/27/19 at 07:00 Metoclopramide HCl (Reglan) 5 mg BEFORE MEALS PO Last administered on 02/07/19 17:54; Admin Dose 5 MG; Start 01/27/19 at 07:30 Multivit/Ca Carb/ B Cmplx/FA/Prenat (Wendi-Cathi) 1 tab DAILY PO Last administered on 02/09/19 08:52; Admin Dose 1 TAB; Start 01/27/19 at 09:00 Ondansetron HCl (Zofran Tab) 4 mg Q6H PRN PO NAUSEA AND/OR VOMITING Last administered on 01/30/19 10:43; Admin Dose 4 MG; Start 01/26/19 at 20:00 Pantoprazole (Protonix Tab) 40 mg DAILY PO Last administered on 02/09/19 08:53; Admin Dose 40 MG; Start 01/27/19 at 09:00 Polyethylene Glycol (Miralax) 17 gm DAILY PO Last administered on 02/09/19 08:40; Admin Dose 17 GM; Start 01/27/19 at 09:00 Prednisolone Acetate (Pred-Forte 1%) 1 drop BID RIGHT EYE Last administered on 02/09/19 08:54; Admin Dose 1 DROP; Start 01/26/19 at 21:00 Zinc Sulfate (Zinc Sulfate) 220 mg DAILY PO Last administered on 02/09/19 08:52; Admin Dose 220 MG; Start 01/27/19 at 09:00 Insulin Aspart (Novolog Insulin Pen) NOVOLOG *MODERATE* ALGORITHM WITH MEALS BEDTIME SC Last administered on 02/04/19 17:37; Admin Dose 2 UNIT; Start 01/26/19 at 21:00 Heparin Sodium (Porcine) (Heparin (5000 Units/1ml)) 5,000 unit BID SC Last administered on 02/09/19 08:56; Admin Dose 5,000 UNIT; Start 01/26/19 at 21:00 Morphine Sulfate (morphine) 2 mg Q4H PRN IV SEVERE PAIN LEVEL 7-10 Last administered on 02/08/19 10:00; Admin Dose 2 MG; Start 01/26/19 at 20:30 Miscellaneous Information 1 ea NOTE XX ; Start 01/26/19 at 23:45 Glucose (Glutose) 15 gm Q15M PRN PO DECREASED GLUCOSE; Start 01/26/19 at 23:45 Glucose (Glutose) 22.5 gm Q15M PRN PO DECREASED GLUCOSE; Start 01/26/19 at 23:45 Dextrose (D50w Syringe) 25 ml Q15M PRN IV DECREASED GLUCOSE Last administered on 01/28/19at 07:50; Admin Dose 25 ML; Start 01/26/19 at 23:45 Dextrose (D50w Syringe) 50 ml Q15M PRN IV DECREASED GLUCOSE; Start 01/26/19 at 23:45 Glucagon (Glucagen) 1 mg Q15M PRN IM DECREASED GLUCOSE; Start 01/26/19 at 23:45 Glucose (Glutose) 15 gm Q15M PRN BUCCAL DECREASED GLUCOSE; Start 01/26/19 at 23:45 Alteplase, Recombinant (Cathflo (Activase)) 2 mg MAY REPEAT X1 PRN CATHETER IF CATHETER REMAINS OCCULUDED Last administered on 02/02/19 23:09; Admin Dose 2 MG; Start 01/27/19 at 07:00 Tramadol HCl (Ultram) 50 mg Q6H PO Last administered on 02/09/19 08:53; Admin Dose 50 MG; Start 01/27/19 at 08:00 Collagenase (Santyl) 1 applic DAILY TOP Last administered on 02/09/19 08:54; Admin Dose 1 APPLIC; Start 01/28/19 at 09:00 Sodium Hypochlorite (Dakin'S (Dilute )) 1 applic DAILY IRR Last administered on 02/09/19 08:56; Admin Dose 1 APPLIC; Start 01/28/19 at 09:00 Lorazepam (Ativan) 1 mg Q8H PRN PO ANXIETY; Start 01/27/19 at 22:30 Mupirocin (Bactroban) 1 applic BID TOP Last administered on 02/09/19 08:55; Admin Dose 1 APPLIC; Start 01/28/19 at 21:00 Megestrol Acetate (Megace Susp) 400 mg DAILY PO Last administered on 02/09/19 08:57; Admin Dose 400 MG; Start 01/30/19 at 14:30 Linezolid (Zyvox) 600 mg BID PO Last administered on 4/2/19at 08:53; Admin Dose 600 MG; Start 01/31/19 at 16:00 Amikacin Sulfate (Amikacin Iv Per Pharmacy) AMIKACIN PER PHARMACY NOTE XX ; Start 01/31/19 at 15:30 Amikacin Sulfate 300 mg/Sodium Chloride 101.2 ml @ 102 mls/hr AFTER DIALYSIS IVPB Last administered on 02/09/19at 00:41; Admin Dose 102 MLS/HR; Start 02/01/19 at 16:30 Lactulose (Enulose) 20 gm Q6H PRN PO CONSTIPATION; Start 02/04/19 at 11:00 Hydralazine HCl (Apresoline) 100 mg Q8 PO Last administered on 02/09/19at 05:45; Admin Dose 100 MG; Start 02/04/19 at 14:00 Metoprolol Tartrate (Lopressor) 50 mg BID PO Last administered on 02/09/19at 08:54; Admin Dose 50 MG; Start 02/08/19 at 21:00 Epoetin Indra-epbx (Retacrit (Esrd)) 8,000 unit TuThSa@17 SQ ; Start 02/09/19 at 17:00 Ondansetron HCl (Zofran Inj) 4 mg Q6H PRN IV NAUSEA AND/OR VOMITING; Start 02/09/19 at 12:30 ALYX NAVARRO NP Feb 09, 2019 12:26
[2019-02-09] MEDS ORDERED: ONDANSETRON 4 MG INJ IV PRN (12:30)
[2019-02-09 14:00] VITALS: BP 142/72; PULSE 64; RESP 18
[2019-02-09] MEDS: FLUCONAZOLE 100 MG TAB PO SCH (15:18)
[2019-02-09] MEDS ORDERED: EPOETIN ALFA-EPBX (ESRD) 4,000 UNIT/ML VIAL SQ SCH (17:00)
--- NOTE | 2019-02-09 17:16 | PN ---
Date/Time of Note Date/Time of Note DATE: 02/09/19 TIME: 17:09 Assessment/Plan VTE Prophylaxis Risk score (from Ns)>0 risk: 9 [place] [facility] [place] Pharmacological prophylaxis: heparin Lines/Catheters [facility]from [facility] PICC Line Central line still needed: Yes Urinary Cath still in place: No Assessment/Plan Hospital Course Patient increased leukocytosis, chest x-ray noticed with bilateral moderate pleural effusions and left lower lobe infiltrate, patient continues on Zyvox, amikacin and fluconazole. Assessment/Plan -Sacral and bilateral ischial infected wounds. Status post sacrum and right ischial debridement 01/29/19. Dr. Almanza is following in general surgery consultation. Continue antibiotics per ID. Dr. Guevara is following in infection disease consultation. -HCAP with Left lower lobe infiltrate -Abdominal pain. Status post EGD with notion of gastritis. Continue PPI. Status post a colonoscopy with notion of hemorrhoids. -Moderate bilateral pleural effusion -Hemodialysis dependent end-stage renal disease. Continue on hemodialysis. Dr. Mcdaniel is following from nephrology standpoint. -Diabetes mellitus type 2. Continue Levemir and NovoLog per mild algorithm sliding scale. -Hypothyroidism, continue levothyroxine -Hypertension. -Hyperlipidemia, continue statin -Anemia -MRSA of nares colonization. Contact isolation. -Right eye blindness. Further recommendations based on clinical course. Plan of care discussed with Dr. Mandel. Result Diagram: 02/09/19 0855 02/09/19 0855 Results 24hrs Laboratory Tests Test 02/08/19 17:46 02/08/19 21:14 02/09/19 08:03 02/09/19 08:55 Bedside Glucose 128 113 104 White Blood Count 15.5 #H Red Blood Count 3.22 L Hemoglobin 9.3 L Hematocrit 31.7 L Mean Corpuscular Volume 98.4 Mean Corpuscular 28.9 L Hemoglobin Mean Corpuscular 29.3 L Hemoglobin Concent Red Cell Distribution 16.4 H Width Platelet Count 203 Mean Platelet Volume 8.3 Immature Granulocytes % 0.700 H Neutrophils % 87.8 H Lymphocytes % 5.7 L Monocytes % 5.0 Eosinophils % 0.5 Basophils % 0.3 Nucleated Red Blood 0.0 Cells % Immature Granulocytes # 0.110 H Neutrophils # 13.6 H Lymphocytes # 0.9 Monocytes # 0.8 Eosinophils # 0.1 Basophils # 0.1 Nucleated Red Blood 0.0 Cells # Sodium Level 138 Potassium Level 4.0 Chloride Level 100 Carbon Dioxide Level 27 Anion Gap 11 Blood Urea Nitrogen 15 Creatinine 2.24 H Est Glomerular Filtrat 22 L Rate mL/min Glucose Level 114 Calcium Level 8.6 Test 02/09/19 12:12 Bedside Glucose 120 Exam/Review of Systems Exam Vitals Vital Signs Date Temp Pulse Resp B/P (MAP) Pulse Ox O2 O2 Flow FiO2 Time Delivery Rate 02/09/19 97.8 64 18 142/72 94 14:00 (95) 02/09/19 2.0 05:53 02/08/19 Nasal 21:00 Cannula Intake and Output 02/08/19 02/08/19 02/09/19 1515:00 23:00 07:00 IntakeIntake Total 550 ml 101.2 ml OutputOutput Total 2400 ml BalanceBalance 550 ml -2298.8 ml Exam Constitutional: alert, oriented Eyes: other (Right eye blindness) Respiratory: clear to auscultation Cardiovascular: regular rate and rhythm Gastrointestinal: soft, non-tender Musculoskeletal: nl extremities to inspection Extremities: normal pulses, edema, other (Right upper extremity AV fistula) Neurological: nl mental status Results Results 24hrs Laboratory Tests Test 02/08/19 17:46 02/08/19 21:14 02/09/19 08:03 02/09/19 08:55 Bedside Glucose 128 113 104 White Blood Count 15.5 #H Red Blood Count 3.22 L Hemoglobin 9.3 L Hematocrit 31.7 L Mean Corpuscular Volume 98.4 Mean Corpuscular 28.9 L Hemoglobin Mean Corpuscular 29.3 L Hemoglobin Concent Red Cell Distribution 16.4 H Width Platelet Count 203 Mean Platelet Volume 8.3 Immature Granulocytes % 0.700 H Neutrophils % 87.8 H Lymphocytes % 5.7 L Monocytes % 5.0 Eosinophils % 0.5 Basophils % 0.3 Nucleated Red Blood 0.0 Cells % Immature Granulocytes # 0.110 H Neutrophils # 13.6 H Lymphocytes # 0.9 Monocytes # 0.8 Eosinophils # 0.1 Basophils # 0.1 Nucleated Red Blood 0.0 Cells # Sodium Level 138 Potassium Level 4.0 Chloride Level 100 Carbon Dioxide Level 27 Anion Gap 11 Blood Urea Nitrogen 15 Creatinine 2.24 H Est Glomerular Filtrat 22 L Rate mL/min Glucose Level 114 Calcium Level 8.6 Test 02/09/19 12:12 Bedside Glucose 120 Medications Medication Current Medications Amiodarone HCl (Cordarone) 200 mg DAILY PO Last administered on 02/09/19 08:54; Admin Dose 200 MG; Start 01/27/19 at 09:00 Ascorbic Acid (Vitamin C) 500 mg DAILY PO Last administered on 02/09/19 08:54; Admin Dose 500 MG; Start 01/27/19 at 09:00 Atorvastatin Calcium (Lipitor) 20 mg QHS PO Last administered on 02/09/19 00:19; Admin Dose 20 MG; Start 01/26/19 at 21:00 Bisacodyl (Dulcolax) 10 mg Q24H PRN PO CONSTIPATION; Start 01/26/19 at 20:00 Citalopram Hydrobromide (Celexa) 20 mg DAILY PO Last administered on 02/09/19 08:54; Admin Dose 20 MG; Start 01/27/19 at 09:00 Docusate Sodium (Colace) 100 mg BID PO Last administered on 02/09/19 08:53; Admin Dose 100 MG; Start 01/26/19 at 21:00 Folic Acid (Folic Acid) 1 mg DAILY PO Last administered on 02/09/19 08:54; Admin Dose 1 MG; Start 01/27/19 at 09:00 Levothyroxine Sodium (Synthroid) 100 mcg BEFORE BREAKFAST PO Last administered on 02/09/19 06:23; Admin Dose 100 MCG; Start 01/27/19 at 07:00 Metoclopramide HCl (Reglan) 5 mg BEFORE MEALS PO Last administered on 02/07/19 17:54; Admin Dose 5 MG; Start 01/27/19 at 07:30 Multivit/Ca Carb/ B Cmplx/FA/Prenat (Wendi-Cathi) 1 tab DAILY PO Last administered on 02/09/19 08:52; Admin Dose 1 TAB; Start 01/27/19 at 09:00 Ondansetron HCl (Zofran Tab) 4 mg Q6H PRN PO NAUSEA AND/OR VOMITING Last administered on 01/30/19 10:43; Admin Dose 4 MG; Start 01/26/19 at 20:00 Pantoprazole (Protonix Tab) 40 mg DAILY PO Last administered on 02/09/19 08:53; Admin Dose 40 MG; Start 01/27/19 at 09:00 Polyethylene Glycol (Miralax) 17 gm DAILY PO Last administered on 02/09/19 08:40; Admin Dose 17 GM; Start 01/27/19 at 09:00 Prednisolone Acetate (Pred-Forte 1%) 1 drop BID RIGHT EYE Last administered on 02/09/19 08:54; Admin Dose 1 DROP; Start 01/26/19 at 21:00 Zinc Sulfate (Zinc Sulfate) 220 mg DAILY PO Last administered on 02/09/19 08:52; Admin Dose 220 MG; Start 01/27/19 at 09:00 Insulin Aspart (Novolog Insulin Pen) NOVOLOG *MODERATE* ALGORITHM WITH MEALS BEDTIME SC Last administered on 02/04/19 17:37; Admin Dose 2 UNIT; Start 01/26/19 at 21:00 Heparin Sodium (Porcine) (Heparin (5000 Units/1ml)) 5,000 unit BID SC Last administered on 02/09/19 08:56; Admin Dose 5,000 UNIT; Start 01/26/19 at 21:00 Morphine Sulfate (morphine) 2 mg Q4H PRN IV SEVERE PAIN LEVEL 7-10 Last administered on 02/08/19 10:00; Admin Dose 2 MG; Start 01/26/19 at 20:30 Miscellaneous Information 1 ea NOTE XX ; Start 01/26/19 at 23:45 Glucose (Glutose) 15 gm Q15M PRN PO DECREASED GLUCOSE; Start 01/26/19 at 23:45 Glucose (Glutose) 22.5 gm Q15M PRN PO DECREASED GLUCOSE; Start 01/26/19 at 23:45 Dextrose (D50w Syringe) 25 ml Q15M PRN IV DECREASED GLUCOSE Last administered on 01/28/19 07:50; Admin Dose 25 ML; Start 01/26/19 at 23:45 Dextrose (D50w Syringe) 50 ml Q15M PRN IV DECREASED GLUCOSE; Start 01/26/19 at 23:45 Glucagon (Glucagen) 1 mg Q15M PRN IM DECREASED GLUCOSE; Start 01/26/19 at 23:45 Glucose (Glutose) 15 gm Q15M PRN BUCCAL DECREASED GLUCOSE; Start 01/26/19 at 23:45 Alteplase, Recombinant (Cathflo (Activase)) 2 mg MAY REPEAT X1 PRN CATHETER IF CATHETER REMAINS OCCULUDED Last administered on 02/02/19 23:09; Admin Dose 2 MG; Start 01/27/19 at 07:00 Tramadol HCl (Ultram) 50 mg Q6H PO Last administered on 02/09/19 15:18; Admin Dose 50 MG; Start 01/27/19 at 08:00 Collagenase (Santyl) 1 applic DAILY TOP Last administered on 02/09/19 08:54; Admin Dose 1 APPLIC; Start 01/28/19 at 09:00 Sodium Hypochlorite (Dakin'S (Dilute )) 1 applic DAILY IRR Last administered on 02/09/19 08:56; Admin Dose 1 APPLIC; Start 01/28/19 at 09:00 Lorazepam (Ativan) 1 mg Q8H PRN PO ANXIETY; Start 01/27/19 at 22:30 Mupirocin (Bactroban) 1 applic BID TOP Last administered on 02/09/19 08:55; Admin Dose 1 APPLIC; Start 01/28/19 at 21:00 Megestrol Acetate (Megace Susp) 400 mg DAILY PO Last administered on 02/09/19 08:57; Admin Dose 400 MG; Start 01/30/19 at 14:30 Linezolid (Zyvox) 600 mg BID PO Last administered on 02/09/19 08:53; Admin Dose 600 MG; Start 01/31/19 at 16:00 Amikacin Sulfate (Amikacin Iv Per Pharmacy) AMIKACIN PER PHARMACY NOTE XX ; Start 01/31/19 at 15:30 Amikacin Sulfate 300 mg/Sodium Chloride 101.2 ml @ 102 mls/hr AFTER DIALYSIS IVPB Last administered on 02/09/19 00:41; Admin Dose 102 MLS/HR; Start 02/01/19 at 16:30 Lactulose (Enulose) 20 gm Q6H PRN PO CONSTIPATION; Start 02/04/19 at 11:00 Hydralazine HCl (Apresoline) 100 mg Q8 PO Last administered on 02/09/19 15:19; Admin Dose 100 MG; Start 02/04/19 at 14:00 Metoprolol Tartrate (Lopressor) 50 mg BID PO Last administered on 4/2/19at 08:54; Admin Dose 50 MG; Start 02/08/19 at 21:00 Epoetin Indra-epbx (Retacrit (Esrd)) 8,000 unit TuThSa@17 SQ ; Start 02/09/19 at 17:00 Ondansetron HCl (Zofran Inj) 4 mg Q6H PRN IV NAUSEA AND/OR VOMITING; Start 02/09/19 at 12:30 Fluconazole (Diflucan) 100 mg DAILY PO Last administered on 02/09/19at 15:18; Admin Dose 100 MG; Start 02/09/19 at 14:00 SIN IZAGUIRRE Feb 09, 2019 17:16
[2019-02-09] MEDS ORDERED: EPOETIN ALFA-EPBX (ESRD) 10,000 UNIT/ML VIAL SC SCH ×2 (18:16→18:18)
[2019-02-09 20:00] VITALS: BP 150/79; PULSE 70; RESP 18
[2019-02-10] VITALS (19 sets, daily range): BP systolic 107–149; BP diastolic 28–73; PULSE 53–74; RESP 16–18
[2019-02-10] MEDS: traMADol 50 MG TAB PO SCH ×4 (02:00→21:11)
--- NOTE | 2019-02-10 05:39 | PN ---
Date/Time of Note Date/Time of Note DATE: 02/10/19 TIME: 05:38 Assessment/Plan Lines/Catheters IV Catheter Type (from Nrs): PICC Line [place] in Place (from Nrs): No Assessment/Plan Chief Complaint/Hosp Course 1. Sacral and bilateral ischial wounds: wnd cx noted; status post sacrum and right ischial debridement 01/29/19 -Further debridement as needed -Continue local care> changed treatment today. Can follow with Dr. Sanchez as outpatient in wound clinic. -frequent turning and off-loading -low air loss mattress -vitamin c -short term zinc -optimize nutrition 2. Abdominal pain and generalized weakness: Status post EGD: Gastritis -further w/u per med team -PPI 3. ESRD -limit nephrotoxins -HD per renal -renally dose meds 4. Anemia: Colonoscopy pending -monitor and transfuse as needed 5. Diabetes with episodes of hypoglycemia; no hypoglycemia episodes-sugar control much improved -glucose management 6. Hypothyroidism -med mgt 7. Pleural effusions: -Pulmonary consult -fluid management Thank you Subjective 24 Hr Interval Summary No fevers, chills, sob, congested cough, cp, palpitations, hoffman, dizziness, nausea, vomiting, diarrhea, dysuria, excessive wound drainage or odor. Exam/Review of Systems Vital Signs Vitals Vital Signs Date Temp Pulse Resp B/P (MAP) Pulse Ox O2 O2 Flow FiO2 Time Delivery Rate 02/10/19 2.0 04:24 02/10/19 98.7 64 18 149/67 96 02:26 (94) 02/09/19 Nasal 20:00 Cannula Intake and Output 02/09/19 02/09/19 02/10/19 1515:00 23:00 07:00 IntakeIntake Total 350 ml 250 ml OutputOutput Total 350 ml BalanceBalance 0 ml 250 ml Exam Free Text/Dictation Constitutional: alert, oriented, obese Psych: anxiety (minimal) Head: normocephalic, atraumatic Eyes: nl conjunctiva, EOMI, nl lids, nl sclera ENMT: nl external ears & nose, nl lips & teeth, mucosa pink and moist Neck: supple, non-tender; No jvd Respiratory: normal air movement; No congested cough, No labored breathing Cardiovascular: regular rate and rhythm, nl pulses; No edema Gastrointestinal: soft, non-tender, distended Genitourinary - Female: nl external genitalia Musculoskeletal: nl extremities to inspection, nl gait and stance Extremities: normal pulses Neurological: nl mental status, nl speech, nl strength Skin: other (sacral: Packed, no odor, minimal periwound erythema; right ischium: Packed, improved odor; left ischium: unstageable); No rash or lesions Results Result Diagram: 02/09/19 0855 02/09/19 0855 ALFREDO SANCHEZ MD Feb 10, 2019 05:39
[2019-02-10] MEDS: LEVOTHYROXINE 100 MCG TAB PO SCH (06:06)
[2019-02-10] MEDS: INSULIN ASPART [NOVOLOG] 3 ML PEN SC SCH ×4 (08:00→21:00)
[2019-02-10] MEDS: PREDNISOLONE ACET 1% 5 ML OPH RIGHT EYE SCH ×2 (08:52→21:16)
[2019-02-10] MEDS: ZYVOX 600 MG TAB PO SCH ×2 (08:52→21:11)
[2019-02-10] MEDS: MULTIVIT/CA CARB/B CMPLX/FA TAB PO SCH (08:53)
[2019-02-10] MEDS: COLLAGENASE 5 GM (UD JAR) TOP SCH (08:53)
[2019-02-10] MEDS: CITALOPRAM 20 MG TAB PO SCH (08:53)
[2019-02-10] MEDS: ASCORBIC ACID 500 MG TAB PO SCH (08:53)
[2019-02-10] MEDS: FLUCONAZOLE 100 MG TAB PO SCH (08:53)
[2019-02-10] MEDS: HEPARIN 5,000 UNIT/1 ML VIAL SC SCH ×2 (08:55→21:12)
[2019-02-10] MEDS: PANTOPRAZOLE (EC) 40 MG TAB PO SCH (08:55)
[2019-02-10] MEDS: FOLIC ACID 1 MG TAB PO SCH (08:56)
[2019-02-10] MEDS: MEGESTROL (40 MG/ML) 10ML CUP PO SCH (08:56)
[2019-02-10] MEDS: MUPIROCIN 2% 22 GM OINT TOP SCH ×2 (08:56→21:16)
[2019-02-10] MEDS: DOCUSATE SODIUM 100 MG CAP PO SCH ×2 (08:57→21:11)
[2019-02-10] MEDS: POLYETHYLENE GLYCOL 17 GM PACKET PO SCH (08:58)
[2019-02-10] MEDS: BALSAM PERU/CASTOR OIL 60 GM TUBE TOP SCH ×2 (08:59→22:29)
[2019-02-10] MEDS: ZINC SULFATE 220 MG CAP PO SCH (09:00)
[2019-02-10] MEDS: METOCLOPRAMIDE 5 MG TAB PO SCH ×3 (09:00→17:33)
[2019-02-10] MEDS: SODIUM HYPOCHLORITE (1/40) 1 LITER BTL IRR SCH (09:00)
[2019-02-10] MEDS: AMIODARONE 200 MG TAB PO SCH (09:00)
[2019-02-10] MEDS: METOPROLOL 50 MG TAB PO SCH ×2 (09:00→21:11)
--- NOTE | 2019-02-10 12:20 | CONS ---
Assessment/Plan Assessment/Plan Hospital Course (Demo Recall) All noted, no events, no fevers. Pt had been refusing Reglan Microbiology sacral wound culture grew Proteus, E. coli ESBL, VRE, and MRSA Antimicrobials: Amikacin, Zyvox Diflucan PHYSICAL EXAMINATION: GENERAL: This is a fragile, wasted, well-developed, elderly woman, who is in no distress. HEENT: Head atraumatic, normocephalic. Sclerae anicteric. The patient has right eye blindness. Buccal mucosa pale, dry. NECK: Supple. CHEST: Rise symmetrical. Breath sounds diminished to bases. HEART: S1, S2. ABDOMEN: Obese, soft, bowel tones present. EXTREMITIES: Bilateral edema. SKIN: The patient has a large necrotic wounds on bilateral buttocks, left buttock and left posterior thigh area , also, necrotic wound. The patient has pressure sores on her left heel as well. Assessment: 1. Multiple necrotic infected wounds, s/p debridement 2. End-stage renal disease, hemodialysis dependent 3. Diabetes 4. Hypertension 5. MRSA colonization 6. HCAP 7. Gastroparesis Plan: Clinically unchanged, cxr noted==> worse, change Amikacin to Merrem, encourage IS. Patient has significant urinary retention, continue bladder scan with straight cath as needed, follow urine cultures Consultation Date/Type/Reason Admit Date/Time Jan 26, 2019 at 17:32 Initial Consult Date 01/27/19 Type of Consult id Requesting Provider: ALEXUS VALENCIA MD Date/Time of Note DATE: 02/10/19 TIME: 12:17 Exam/Review of Systems Exam Vitals Vital Signs Date Temp Pulse Resp B/P (MAP) Pulse Ox O2 O2 Flow FiO2 Time Delivery Rate 02/10/19 70 11:35 02/10/19 16 141/63 98 Nasal 2.0 10:50 (89) Cannula 02/10/19 98.3 07:56 Intake and Output 02/09/19 02/09/19 02/10/19 1515:00 23:00 07:00 IntakeIntake Total 350 ml 250 ml 300 ml OutputOutput Total 350 ml BalanceBalance 0 ml 250 ml 300 ml Results Result Diagram: 02/09/19 0855 02/09/19 0855 Results 24hrs Laboratory Tests Test 02/09/19 17:16 02/09/19 21:02 02/10/19 08:21 02/10/19 12:09 Bedside Glucose 117 118 109 102 Medications Medication Current Medications Amiodarone HCl (Cordarone) 200 mg DAILY PO Last administered on 02/09/19 08:54; Admin Dose 200 MG; Start 01/27/19 at 09:00 Ascorbic Acid (Vitamin C) 500 mg DAILY PO Last administered on 02/10/19 08:53; Admin Dose 500 MG; Start 01/27/19 at 09:00 Atorvastatin Calcium (Lipitor) 20 mg QHS PO Last administered on 02/09/19 21:04; Admin Dose 20 MG; Start 01/26/19 at 21:00 Bisacodyl (Dulcolax) 10 mg Q24H PRN PO CONSTIPATION; Start 01/26/19 at 20:00 Citalopram Hydrobromide (Celexa) 20 mg DAILY PO Last administered on 02/10/19 08:53; Admin Dose 20 MG; Start 01/27/19 at 09:00 Docusate Sodium (Colace) 100 mg BID PO Last administered on 02/09/19 21:04; Admin Dose 100 MG; Start 01/26/19 at 21:00 Folic Acid (Folic Acid) 1 mg DAILY PO Last administered on 02/10/19 08:56; Admin Dose 1 MG; Start 01/27/19 at 09:00 Levothyroxine Sodium (Synthroid) 100 mcg BEFORE BREAKFAST PO Last administered on 02/10/19 06:06; Admin Dose 100 MCG; Start 01/27/19 at 07:00 Metoclopramide HCl (Reglan) 5 mg BEFORE MEALS PO Last administered on 02/10/19 09:00; Admin Dose 5 MG; Start 01/27/19 at 07:30 Multivit/Ca Carb/ B Cmplx/FA/Prenat (Wendi-Cathi) 1 tab DAILY PO Last administered on 02/10/19 08:53; Admin Dose 1 TAB; Start 01/27/19 at 09:00 Ondansetron HCl (Zofran Tab) 4 mg Q6H PRN PO NAUSEA AND/OR VOMITING Last administered on 01/30/19 10:43; Admin Dose 4 MG; Start 01/26/19 at 20:00 Pantoprazole (Protonix Tab) 40 mg DAILY PO Last administered on 02/10/19 08:55; Admin Dose 40 MG; Start 01/27/19 at 09:00 Polyethylene Glycol (Miralax) 17 gm DAILY PO Last administered on 02/09/19 08:40; Admin Dose 17 GM; Start 01/27/19 at 09:00 Prednisolone Acetate (Pred-Forte 1%) 1 drop BID RIGHT EYE Last administered on 02/10/19 08:52; Admin Dose 1 DROP; Start 01/26/19 at 21:00 Zinc Sulfate (Zinc Sulfate) 220 mg DAILY PO Last administered on 02/10/19 09:00; Admin Dose 220 MG; Start 01/27/19 at 09:00 Insulin Aspart (Novolog Insulin Pen) NOVOLOG *MODERATE* ALGORITHM WITH MEALS BEDTIME SC Last administered on 02/04/19 17:37; Admin Dose 2 UNIT; Start 01/26/19 at 21:00 Heparin Sodium (Porcine) (Heparin (5000 Units/1ml)) 5,000 unit BID SC Last administered on 02/10/19 08:55; Admin Dose 5,000 UNIT; Start 01/26/19 at 21:00 Morphine Sulfate (morphine) 2 mg Q4H PRN IV SEVERE PAIN LEVEL 7-10 Last administered on 02/08/19 10:00; Admin Dose 2 MG; Start 01/26/19 at 20:30 Miscellaneous Information 1 ea NOTE XX ; Start 01/26/19 at 23:45 Glucose (Glutose) 15 gm Q15M PRN PO DECREASED GLUCOSE; Start 01/26/19 at 23:45 Glucose (Glutose) 22.5 gm Q15M PRN PO DECREASED GLUCOSE; Start 01/26/19 at 23:45 Dextrose (D50w Syringe) 25 ml Q15M PRN IV DECREASED GLUCOSE Last administered on 01/28/19 07:50; Admin Dose 25 ML; Start 01/26/19 at 23:45 Dextrose (D50w Syringe) 50 ml Q15M PRN IV DECREASED GLUCOSE; Start 01/26/19 at 23:45 Glucagon (Glucagen) 1 mg Q15M PRN IM DECREASED GLUCOSE; Start 01/26/19 at 23:45 Glucose (Glutose) 15 gm Q15M PRN BUCCAL DECREASED GLUCOSE; Start 01/26/19 at 23:45 Alteplase, Recombinant (Cathflo (Activase)) 2 mg MAY REPEAT X1 PRN CATHETER IF CATHETER REMAINS OCCULUDED Last administered on 02/02/19 23:09; Admin Dose 2 MG; Start 01/27/19 at 07:00 Tramadol HCl (Ultram) 50 mg Q6H PO Last administered on 02/10/19 09:01; Admin Dose 50 MG; Start 01/27/19 at 08:00 Collagenase (Santyl) 1 applic DAILY TOP Last administered on 02/10/19 08:53; Admin Dose 1 APPLIC; Start 01/28/19 at 09:00 Sodium Hypochlorite (Dakin'S (Dilute )) 1 applic DAILY IRR Last administered on 02/10/19 09:00; Admin Dose 1 APPLIC; Start 01/28/19 at 09:00 Lorazepam (Ativan) 1 mg Q8H PRN PO ANXIETY; Start 01/27/19 at 22:30 Mupirocin (Bactroban) 1 applic BID TOP Last administered on 02/10/19 08:56; Admin Dose 1 APPLIC; Start 01/28/19 at 21:00 Megestrol Acetate (Megace Susp) 400 mg DAILY PO Last administered on 02/10/19 08:56; Admin Dose 400 MG; Start 01/30/19 at 14:30 Linezolid (Zyvox) 600 mg BID PO Last administered on 02/10/19 08:52; Admin Dose 600 MG; Start 01/31/19 at 16:00 Amikacin Sulfate (Amikacin Iv Per Pharmacy) AMIKACIN PER PHARMACY NOTE XX ; Start 01/31/19 at 15:30 Amikacin Sulfate 300 mg/Sodium Chloride 101.2 ml @ 102 mls/hr AFTER DIALYSIS IVPB Last administered on 02/09/19 00:41; Admin Dose 102 MLS/HR; Start 02/01/19 at 16:30 Lactulose (Enulose) 20 gm Q6H PRN PO CONSTIPATION; Start 02/04/19 at 11:00 Hydralazine HCl (Apresoline) 100 mg Q8 PO Last administered on 02/10/19 06:06; Admin Dose 100 MG; Start 02/04/19 at 14:00 Metoprolol Tartrate (Lopressor) 50 mg BID PO Last administered on 4/2/19at 21:04; Admin Dose 50 MG; Start 02/08/19 at 21:00 Ondansetron HCl (Zofran Inj) 4 mg Q6H PRN IV NAUSEA AND/OR VOMITING; Start 02/09/19 at 12:30 Fluconazole (Diflucan) 100 mg DAILY PO Last administered on 02/10/19at 08:53; Admin Dose 100 MG; Start 02/09/19 at 14:00 Epoetin Indra-epbx (RETACRIT(esrd)) 8,000 unit TuThSa@1700 SC Last administered on 02/09/19at 18:26; Admin Dose 8,000 UNIT; Start 02/09/19 at 18:18 ALYX NAVARRO NP Feb 10, 2019 12:20
--- NOTE | 2019-02-10 13:43 | CONS ---
Assessment/Plan Assessment/Plan Hospital Course (Demo Recall) IMPRESSION: 1. Preop evaluation. The patient to undergo EGD whose 2D echo I just read revealing EF lower limits of normal, approximately 50% with no significant contraindicated valvular lesions and negative troponin x1 since admit, patient is okay to proceed at a moderate cardiovascular risk. Now post-op s/p endoscopy and debridement of decub ulcer 2. Congestive heart failure, diastolic acute on chronic. 3. Hypertension. 4. Cardiac arrhythmia, on amiodarone, in sinus rhythm by EKG. 5. Hypothyroidism. 6. Diabetes mellitus. 7. Nausea and vomiting. 8. Generalized weakness. 9. Decubitus ulcers s/p debridement 10. Anemia. 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 12.CKD on HD Recc: -Tele -Contineu BB and hydralazine and continue to follow labile BP -continue statin -Continue abx's and f/u cx data -local wound care -HD for volume removal Consultation Date/Type/Reason Admit Date/Time Jan 26, 2019 at 17:32 Initial Consult Date 01/27/19 Type of Consult Cardiology Reason for Consultation CHF Requesting Provider: ALEXUS VALENCIA MD Date/Time of Note DATE: 02/10/19 TIME: 13:41 Exam/Review of Systems Vital Signs Vitals Vital Signs Date Temp Pulse Resp B/P (MAP) Pulse Ox O2 O2 Flow FiO2 Time Delivery Rate 02/10/19 69 13:35 02/10/19 16 141/63 98 Nasal 2.0 10:50 (89) Cannula 02/10/19 98.3 07:56 Intake and Output 02/09/19 02/09/19 02/10/19 1515:00 23:00 07:00 IntakeIntake Total 350 ml 250 ml 300 ml OutputOutput Total 350 ml BalanceBalance 0 ml 250 ml 300 ml Exam Exam Review of Systems: CONSTITUTIONAL: No fevers, chills. PULMONARY: No sob CARDIOVASCULAR: No chest pain/palpitations GASTROINTESTINAL: No nausea/vomiting. GENITOURINARY: No hematuria/dysuria. MUSCULOSKELETAL: No myagias/arthalgias. PSYCHIATRIC: The patient denies depression. NEUROLOGIC: lethargic Constitutional: alert, oriented Psych: no complaints Head: normocephalic ENMT: mucosa pink and moist Neck: supple, jvd (9 cm water) Respiratory: diminished breath sounds (at bases/B) Cardiovascular: regular rate and rhythm Gastrointestinal: soft, non-tender Musculoskeletal: muscle weakness (mild generalized) Extremities: edema (none) Neurological: other (NO focal deficits) Labs Result Diagram: 1955 02/09/19 0855 Results 24hrs Laboratory Tests Test 02/09/19 17:16 02/09/19 21:02 02/10/19 08:21 02/10/19 12:09 Bedside Glucose 117 118 109 102 Medications Medications Current Medications Amiodarone HCl (Cordarone) 200 mg DAILY PO Last administered on 02/09/19 08:54; Admin Dose 200 MG; Start 01/27/19 at 09:00 Ascorbic Acid (Vitamin C) 500 mg DAILY PO Last administered on 02/10/19 08:53; Admin Dose 500 MG; Start 01/27/19 at 09:00 Atorvastatin Calcium (Lipitor) 20 mg QHS PO Last administered on 02/09/19 21:04; Admin Dose 20 MG; Start 01/26/19 at 21:00 Bisacodyl (Dulcolax) 10 mg Q24H PRN PO CONSTIPATION; Start 01/26/19 at 20:00 Citalopram Hydrobromide (Celexa) 20 mg DAILY PO Last administered on 02/10/19 08:53; Admin Dose 20 MG; Start 01/27/19 at 09:00 Docusate Sodium (Colace) 100 mg BID PO Last administered on 02/09/19 21:04; Admin Dose 100 MG; Start 01/26/19 at 21:00 Folic Acid (Folic Acid) 1 mg DAILY PO Last administered on 02/10/19 08:56; Ad min Dose 1 MG; Start 01/27/19 at 09:00 Levothyroxine Sodium (Synthroid) 100 mcg BEFORE BREAKFAST PO Last administered on 02/10/19 06:06; Admin Dose 100 MCG; Start 01/27/19 at 07:00 Metoclopramide HCl (Reglan) 5 mg BEFORE MEALS PO Last administered on 02/10/19 09:00; Admin Dose 5 MG; Start 01/27/19 at 07:30 Multivit/Ca Carb/ B Cmplx/FA/Prenat (Wendi-Cathi) 1 tab DAILY PO Last administered on 02/10/19 08:53; Admin Dose 1 TAB; Start 01/27/19 at 09:00 Ondansetron HCl (Zofran Tab) 4 mg Q6H PRN PO NAUSEA AND/OR VOMITING Last administered on 01/30/19 10:43; Admin Dose 4 MG; Start 01/26/19 at 20:00 Pantoprazole (Protonix Tab) 40 mg DAILY PO Last administered on 02/10/19 08:55; Admin Dose 40 MG; Start 01/27/19 at 09:00 Polyethylene Glycol (Miralax) 17 gm DAILY PO Last administered on 02/09/19 08:40; Admin Dose 17 GM; Start 01/27/19 at 09:00 Prednisolone Acetate (Pred-Forte 1%) 1 drop BID RIGHT EYE Last administered on 02/10/19 08:52; Admin Dose 1 DROP; Start 01/26/19 at 21:00 Zinc Sulfate (Zinc Sulfate) 220 mg DAILY PO Last administered on 02/10/19 09:00; Admin Dose 220 MG; Start 01/27/19 at 09:00 Insulin Aspart (Novolog Insulin Pen) NOVOLOG *MODERATE* ALGORITHM WITH MEALS BEDTIME SC Last administered on 02/04/19 17:37; Admin Dose 2 UNIT; Start 01/26/19 at 21:00 Heparin Sodium (Porcine) (Heparin (5000 Units/1ml)) 5,000 unit BID SC Last administered on 02/10/19 08:55; Admin Dose 5,000 UNIT; Start 01/26/19 at 21:00 Morphine Sulfate (morphine) 2 mg Q4H PRN IV SEVERE PAIN LEVEL 7-10 Last administered on 02/08/19 10:00; Admin Dose 2 MG; Start 01/26/19 at 20:30 Miscellaneous Information 1 ea NOTE XX ; Start 01/26/19 at 23:45 Glucose (Glutose) 15 gm Q15M PRN PO DECREASED GLUCOSE; Start 01/26/19 at 23:45 Glucose (Glutose) 22.5 gm Q15M PRN PO DECREASED GLUCOSE; Start 01/26/19 at 23:45 Dextrose (D50w Syringe) 25 ml Q15M PRN IV DECREASED GLUCOSE Last administered on 01/28/19 07:50; Admin Dose 25 ML; Start 01/26/19 at 23:45 Dextrose (D50w Syringe) 50 ml Q15M PRN IV DECREASED GLUCOSE; Start 01/26/19 at 23:45 Glucagon (Glucagen) 1 mg Q15M PRN IM DECREASED GLUCOSE; Start 01/26/19 at 23:45 Glucose (Glutose) 15 gm Q15M PRN BUCCAL DECREASED GLUCOSE; Start 01/26/19 at 23:45 Alteplase, Recombinant (Cathflo (Activase)) 2 mg MAY REPEAT X1 PRN CATHETER IF CATHETER REMAINS OCCULUDED Last administered on 02/02/19 23:09; Admin Dose 2 MG; Start 01/27/19 at 07:00 Tramadol HCl (Ultram) 50 mg Q6H PO Last administered on 02/10/19 13:16; Admin Dose 50 MG; Start 01/27/19 at 08:00 Collagenase (Santyl) 1 applic DAILY TOP Last administered on 02/10/19 08:53; Admin Dose 1 APPLIC; Start 01/28/19 at 09:00 Sodium Hypochlorite (Dakin'S (Dilute )) 1 applic DAILY IRR Last a dministered on 02/10/19 09:00; Admin Dose 1 APPLIC; Start 01/28/19 at 09:00 Lorazepam (Ativan) 1 mg Q8H PRN PO ANXIETY; Start 01/27/19 at 22:30 Mupirocin (Bactroban) 1 applic BID TOP Last administered on 02/10/19 08:56; Admin Dose 1 APPLIC; Start 01/28/19 at 21:00 Megestrol Acetate (Megace Susp) 400 mg DAILY PO Last administered on 02/10/19 08:56; Admin Dose 400 MG; Start 01/30/19 at 14:30 Linezolid (Zyvox) 600 mg BID PO Last administered on 02/10/19 08:52; Admin Dose 600 MG; Start 01/31/19 at 16:00 Lactulose (Enulose) 20 gm Q6H PRN PO CONSTIPATION; Start 02/04/19 at 11:00 Hydralazine HCl (Apresoline) 100 mg Q8 PO Last administered on 02/10/19 06:06; Admin Dose 100 MG; Start 02/04/19 at 14:00 Metoprolol Tartrate (Lopressor) 50 mg BID PO Last administered on 4/2/19at 21:04; Admin Dose 50 MG; Start 02/08/19 at 21:00 Ondansetron HCl (Zofran Inj) 4 mg Q6H PRN IV NAUSEA AND/OR VOMITING; Start 02/09/19 at 12:30 Fluconazole (Diflucan) 100 mg DAILY PO Last administered on 02/10/19at 08:53; Admin Dose 100 MG; Start 02/09/19 at 14:00 Epoetin Indra-epbx (RETACRIT(esrd)) 8,000 unit TuThSa@1700 SC Last administered on 02/09/19at 18:26; Admin Dose 8,000 UNIT; Start 02/09/19 at 18:18 Meropenem/Sodium Chloride 50 ml @ 100 mls/hr Q12 IVPB ; Start 02/10/19 at 21:00 ALIREZA LEE Feb 10, 2019 13:43
--- NOTE | 2019-02-10 17:34 | PN ---
Date/Time of Note Date/Time of Note DATE: 02/10/19 TIME: 17:30 Assessment/Plan VTE Prophylaxis Risk score (from Ns)>0 risk: 9 SCD applied (from Ns): Yes Pharmacological prophylaxis: heparin Lines/Catheters IV Catheter Type (from [facility]): PICC Line Central line still needed: Yes Urinary Cath still in place: No Assessment/Plan Hospital Course Patient status post hemodialysis, removed 2 L of fluids, continued on antibiotics for infected necrotic wounds, pneumonia and now possible UTI, patient makes urine and currently undergoing bladder scan for possible urinary retention. Assessment/Plan -Sacral and bilateral ischial infected wounds. Status post sacrum and right ischial debridement 01/29/19. Dr. Almanza is following in general surgery c onsultation. Continue antibiotics per ID. Dr. Guevara is following in infection disease consultation. -HCAP with Left lower lobe infiltrate -Abdominal pain. Status post EGD with notion of gastritis. Continue PPI. Status post a colonoscopy with notion of hemorrhoids. -Moderate bilateral pleural effusion -Hemodialysis dependent end-stage renal disease. Continue on hemodialysis. Dr. Mcdaniel is following from nephrology standpoint. -Diabetes mellitus type 2. Continue Levemir and NovoLog per mild algorithm sliding scale. -Hypothyroidism, continue levothyroxine -Hypertension. -Hyperlipidemia, continue statin -Anemia -MRSA of nares colonization. Contact isolation. -Right eye blindness. Further recommendations based on clinical course. Plan of care discussed with Dr. Mandel. Result Diagram: 02/09/19 0855 02/09/19 0855 Results 24hrs Laboratory Tests Test 02/09/19 21:02 02/10/19 08:21 02/10/19 12:09 02/10/19 17:22 Bedside Glucose 118 109 102 90 Exam/Review of Systems Exam Vitals Vital Signs Date Temp Pulse Resp B/P (MAP) Pulse Ox O2 O2 Flow FiO2 Time Delivery Rate 02/10/19 69 140/52 16:28 (81) 02/10/19 2.0 15:13 02/10/19 98.5 16 98 14:46 02/10/19 Nasal 10:50 Cannula Intake and Output 02/09/19 02/09/19 02/10/19 1515:00 23:00 07:00 IntakeIntake Total 350 ml 250 ml 300 ml OutputOutput Total 350 ml BalanceBalance 0 ml 250 ml 300 ml Exam Constitutional: alert, oriented Eyes: other (Right eye blindness) Respiratory: clear to auscultation Cardiovascular: regular rate and rhythm Gastrointestinal: soft, non-tender Musculoskeletal: nl extremities to inspection Extremities: normal pulses, edema, other (Right upper extremity AV fistula) Neurological: nl mental status Results Results 24hrs Laboratory Tests Test 02/09/19 21:02 02/10/19 08:21 02/10/19 12:09 02/10/19 17:22 Bedside Glucose 118 109 102 90 Medications Medication Current Medications Amiodarone HCl (Cordarone) 200 mg DAILY PO Last administered on 02/09/19 08:54; Admin Dose 200 MG; Start 01/27/19 at 09:00 Ascorbic Acid (Vitamin C) 500 mg DAILY PO Last administered on 02/10/19 08:53; Admin Dose 500 MG; Start 01/27/19 at 09:00 Atorvastatin Calcium (Lipitor) 20 mg QHS PO Last administered on 02/09/19 21:04; Admin Dose 20 MG; Start 01/26/19 at 21:00 Bisacodyl (Dulcolax) 10 mg Q24H PRN PO CONSTIPATION; Start 01/26/19 at 20:00 Citalopram Hydrobromide (Celexa) 20 mg DAILY PO Last administered on 02/10/19 08:53; Admin Dose 20 MG; Start 01/27/19 at 09:00 Docusate Sodium (Colace) 100 mg BID PO Last administered on 02/09/19 21:04; Admin Dose 100 MG; Start 01/26/19 at 21:00 Folic Acid (Folic Acid) 1 mg DAILY PO Last administered on 02/10/19 08:56; Admin Dose 1 MG; Start 01/27/19 at 09:00 Levothyroxine Sodium (Synthroid) 100 mcg BEFORE BREAKFAST PO Last administered on 02/10/19 06:06; Admin Dose 100 MCG; Start 01/27/19 at 07:00 Metoclopramide HCl (Reglan) 5 mg BEFORE MEALS PO Last administered on 02/10/19 09:00; Admin Dose 5 MG; Start 01/27/19 at 07:30 Multivit/Ca Carb/ B Cmplx/FA/Prenat (Wendi-Cathi) 1 tab DAILY PO Last administered on 02/10/19 08:53; Admin Dose 1 TAB; Start 01/27/19 at 09:00 Ondansetron HCl (Zofran Tab) 4 mg Q6H PRN PO NAUSEA AND/OR VOMITING Last administered on 01/30/19 10:43; Admin Dose 4 MG; Start 01/26/19 at 20:00 Pantoprazole (Protonix Tab) 40 mg DAILY PO Last administered on 02/10/19 08:55; Admin Dose 40 MG; Start 01/27/19 at 09:00 Polyethylene Glycol (Miralax) 17 gm DAILY PO Last administered on 02/09/19 08:40; Admin Dose 17 GM; Start 01/27/19 at 09:00 Prednisolone Acetate (Pred-Forte 1%) 1 drop BID RIGHT EYE Last administered on 02/10/19 08:52; Admin Dose 1 DROP; Start 01/26/19 at 21:00 Zinc Sulfate (Zinc Sulfate) 220 mg DAILY PO Last administered on 02/10/19 09:00; Admin Dose 220 MG; Start 01/27/19 at 09:00 Insulin Aspart (Novolog Insulin Pen) NOVOLOG *MODERATE* ALGORITHM WITH MEALS BEDTIME SC Last administered on 02/04/19 17:37; Admin Dose 2 UNIT; Start 01/26/19 at 21:00 Heparin Sodium (Porcine) (Heparin (5000 Units/1ml)) 5,000 unit BID SC Last administered on 02/10/19 08:55; Admin Dose 5,000 UNIT; Start 01/26/19 at 21:00 Morphine Sulfate (morphine) 2 mg Q4H PRN IV SEVERE PAIN LEVEL 7-10 Last administered on 02/08/19 10:00; Admin Dose 2 MG; Start 01/26/19 at 20:30 Miscellaneous Information 1 ea NOTE XX ; Start 01/26/19 at 23:45 Glucose (Glutose) 15 gm Q15M PRN PO DECREASED GLUCOSE; Start 01/26/19 at 23:45 Glucose (Glutose) 22.5 gm Q15M PRN PO DECREASED GLUCOSE; Start 01/26/19 at 23:45 Dextrose (D50w Syringe) 25 ml Q15M PRN IV DECREASED GLUCOSE Last administered on 01/28/19 07:50; Admin Dose 25 ML; Start 01/26/19 at 23:45 Dextrose (D50w Syringe) 50 ml Q15M PRN IV DECREASED GLUCOSE; Start 01/26/19 at 23:45 Glucagon (Glucagen) 1 mg Q15M PRN IM DECREASED GLUCOSE; Start 01/26/19 at 23:45 Glucose (Glutose) 15 gm Q15M PRN BUCCAL DECREASED GLUCOSE; Start 01/26/19 at 23:45 Alteplase, Recombinant (Cathflo (Activase)) 2 mg MAY REPEAT X1 PRN CATHETER IF CATHETER REMAINS OCCULUDED Last administered on 02/02/19 23:09; Admin Dose 2 MG; Start 01/27/19 at 07:00 Tramadol HCl (Ultram) 50 mg Q6H PO Last administered on 02/10/19 13:16; Admin Dose 50 MG; Start 01/27/19 at 08:00 Collagenase (Santyl) 1 applic DAILY TOP Last administered on 02/10/19 08:53; Admin Dose 1 APPLIC; Start 01/28/19 at 09:00 Sodium Hypochlorite (Dakin'S (Dilute )) 1 applic DAILY IRR Last administered on 02/10/19 09:00; Admin Dose 1 APPLIC; Start 01/28/19 at 09:00 Lorazepam (Ativan) 1 mg Q8H PRN PO ANXIETY; Start 01/27/19 at 22:30 Mupirocin (Bactroban) 1 applic BID TOP Last administered on 02/10/19 08:56; Admin Dose 1 APPLIC; Start 01/28/19 at 21:00 Megestrol Acetate (Megace Susp) 400 mg DAILY PO Last administered on 02/10/19 08:56; Admin Dose 400 MG; Start 01/30/19 at 14:30 Linezolid (Zyvox) 600 mg BID PO Last administered on 02/10/19 08:52; Admin Dose 600 MG; Start 01/31/19 at 16:00 Lactulose (Enulose) 20 gm Q6H PRN PO CONSTIPATION; Start 02/04/19 at 11:00 Hydralazine HCl (Apresoline) 100 mg Q8 PO Last administered on 02/10/19 16:29; Admin Dose 100 MG; Start 02/04/19 at 14:00 Metoprolol Tartrate (Lopressor) 50 mg BID PO Last administered on 4/2/19at 21:04; Admin Dose 50 MG; Start 02/08/19 at 21:00 Ondansetron HCl (Zofran Inj) 4 mg Q6H PRN IV NAUSEA AND/OR VOMITING; Start 02/09/19 at 12:30 Fluconazole (Diflucan) 100 mg DAILY PO Last administered on 02/10/19at 08:53; Admin Dose 100 MG; Start 02/09/19 at 14:00 Epoetin Indra-epbx (RETACRIT(esrd)) 8,000 unit TuThSa@1700 SC Last administered on 02/09/19at 18:26; Admin Dose 8,000 UNIT; Start 02/09/19 at 18:18 Meropenem/Sodium Chloride 50 ml @ 100 mls/hr Q12 IVPB ; Start 02/10/19 at 21:00 SIN IZAGUIRRE Feb 10, 2019 17:34
[2019-02-10] MEDS: ATORVASTATIN 20 MG TAB PO SCH (21:11)
[2019-02-10] MEDS: MEROPENEM 500MG/50 ML (PMX) 50 ML IVPB SCH (21:16)
[2019-02-11 02:07] VITALS: BP 154/67; PULSE 70; RESP 18
[2019-02-11] MEDS: traMADol 50 MG TAB PO SCH ×4 (02:09→20:17)
[2019-02-11] MEDS: LEVOTHYROXINE 100 MCG TAB PO SCH (06:37)
[2019-02-11] MEDS: INSULIN ASPART [NOVOLOG] 3 ML PEN SC SCH ×4 (08:00→21:00)
[2019-02-11 08:07] VITALS: BP 106/47; PULSE 72; RESP 20
[2019-02-11] MEDS: MEROPENEM 500MG/50 ML (PMX) 50 ML IVPB SCH ×2 (08:31→21:11)
[2019-02-11] MEDS: ZINC SULFATE 220 MG CAP PO SCH (08:31)
[2019-02-11] MEDS: ASCORBIC ACID 500 MG TAB PO SCH (08:31)
[2019-02-11] MEDS: MEGESTROL (40 MG/ML) 10ML CUP PO SCH (08:32)
[2019-02-11] MEDS: PANTOPRAZOLE (EC) 40 MG TAB PO SCH (08:32)
[2019-02-11] MEDS: FLUCONAZOLE 100 MG TAB PO SCH (08:32)
[2019-02-11] MEDS: MULTIVIT/CA CARB/B CMPLX/FA TAB PO SCH (08:32)
[2019-02-11] MEDS: ZYVOX 600 MG TAB PO SCH ×2 (08:32→21:06)
[2019-02-11] MEDS: CITALOPRAM 20 MG TAB PO SCH (08:32)
[2019-02-11] MEDS: COLLAGENASE 5 GM (UD JAR) TOP SCH (08:33)
[2019-02-11] MEDS: FOLIC ACID 1 MG TAB PO SCH (08:33)
[2019-02-11] MEDS: DOCUSATE SODIUM 100 MG CAP PO SCH ×2 (08:33→21:07)
[2019-02-11] MEDS: HEPARIN 5,000 UNIT/1 ML VIAL SC SCH ×2 (08:34→21:09)
[2019-02-11] MEDS: POLYETHYLENE GLYCOL 17 GM PACKET PO SCH (08:35)
[2019-02-11] MEDS: METOPROLOL 50 MG TAB PO SCH ×2 (08:35→21:10)
[2019-02-11] MEDS: AMIODARONE 200 MG TAB PO SCH (08:37)
[2019-02-11] MEDS: SODIUM HYPOCHLORITE (1/40) 1 LITER BTL IRR SCH (08:38)
[2019-02-11] MEDS: BALSAM PERU/CASTOR OIL 60 GM TUBE TOP SCH ×2 (08:39→21:15)
[2019-02-11] MEDS: PREDNISOLONE ACET 1% 5 ML OPH RIGHT EYE SCH ×2 (08:40→21:15)
[2019-02-11] MEDS: METOCLOPRAMIDE 5 MG TAB PO SCH ×3 (08:41→17:58)
[2019-02-11] MEDS: MUPIROCIN 2% 22 GM OINT TOP SCH ×2 (08:42→21:15)
[2019-02-11] MEDS ORDERED: AMIKACIN IV PER PHARMACY XX SCH (12:30)
--- NOTE | 2019-02-11 12:41 | CONS ---
Assessment/Plan Assessment/Plan Hospital Course (Demo Recall) All noted, no events, no fevers Microbiology sacral wound culture grew Proteus, E. coli ESBL, VRE, and MRSA Antimicrobials: Amikacin, Zyvox Diflucan Merrem PHYSICAL EXAMINATION: GENERAL: This is a fragile, wasted, well-developed, elderly woman, who is in no distress. HEENT: Head atraumatic, normocephalic. Sclerae anicteric. The patient has right eye blindness. Buccal mucosa pale, dry. NECK: Supple. CHEST: Rise symmetrical. Breath sounds diminished to bases. HEART: S1, S2. ABDOMEN: Obese, soft, bowel tones present. EXTREMITIES: Bilateral edema. SKIN: The patient has a large necrotic wounds on bilateral buttocks, left buttock and left posterior thigh area , also, necrotic wound. The patient has pressure sores on her left heel as well. Assessment: 1. Multiple necrotic infected wounds, s/p debridement 2. End-stage renal disease, hemodialysis dependent 3. Diabetes 4. Hypertension 5. MRSA colonization 6. HCAP 7. Gastroparesis 8. UTI==> Proteus Plan: Clinically unchanged, continue abx, bladder scan/straight cath prn Consultation Date/Type/Reason Admit Date/Time Jan 26, 2019 at 17:32 Initial Consult Date 01/27/19 Type of Consult id Requesting Provider: ALEXUS VALENCIA MD Date/Time of Note DATE: 02/11/19 TIME: 12:39 Exam/Review of Systems Exam Vitals Vital Signs Date Temp Pulse Resp B/P (MAP) Pulse Ox O2 O2 Flow FiO2 Time Delivery Rate 02/11/19 98.3 72 20 106/47 98 08:07 (66) 02/11/19 2.0 06:09 02/10/19 Nasal 20:00 Cannula Intake and Output 02/10/19 02/10/19 02/11/19 1515:00 23:00 07:00 IntakeIntake Total 410 ml 200 ml OutputOutput Total 2600 ml BalanceBalance -2600 ml 410 ml 200 ml Results Result Diagram: 02/11/19 0545 02/11/19 0545 Results 24hrs Laboratory Tests Test 02/10/19 17:22 02/10/19 21:15 02/11/19 05:45 02/11/19 08:26 Bedside Glucose 90 88 88 White Blood Count 11.6 #H Red Blood Count 2.78 L Hemoglobin 8.1 L Hematocrit 27.0 L Mean Corpuscular Volume 97.1 Mean Corpuscular 29.1 Hemoglobin Mean Corpuscular 30.0 L Hemoglobin Concent Red Cell Distribution 16.7 H Width Platelet Count 180 Mean Platelet Volume 9.1 Immature Granulocytes % 0.600 H Neutrophils % 79.6 H Lymphocytes % 11.2 L Monocytes % 7.9 Eosinophils % 0.4 Basophils % 0.3 Nucleated Red Blood 0.0 Cells % Immature Granulocytes # 0.070 H Neutrophils # 9.2 H Lymphocytes # 1.3 Monocytes # 0.9 Eosinophils # 0.1 Basophils # 0.0 Nucleated Red Blood 0.0 Cells # Sodium Level 138 Potassium Level 3.9 Chloride Level 101 Carbon Dioxide Level 26 Anion Gap 11 Blood Urea Nitrogen 12 Creatinine 1.97 H Est Glomerular Filtrat 26 L Rate mL/min Glucose Level 77 Calcium Level 8.4 Test 02/11/19 12:14 Bedside Glucose 118 Medications Medication Current Medications Amiodarone HCl (Cordarone) 200 mg DAILY PO Last administered on 02/11/19 08:37; Admin Dose 200 MG; Start 01/27/19 at 09:00 Ascorbic Acid (Vitamin C) 500 mg DAILY PO Last administered on 02/11/19 08:31; Admin Dose 500 MG; Start 01/27/19 at 09:00 Atorvastatin Calcium (Lipitor) 20 mg QHS PO Last administered on 02/10/19 21:1 1; Admin Dose 20 MG; Start 01/26/19 at 21:00 Bisacodyl (Dulcolax) 10 mg Q24H PRN PO CONSTIPATION; Start 01/26/19 at 20:00 Citalopram Hydrobromide (Celexa) 20 mg DAILY PO Last administered on 02/11/19 08:32; Admin Dose 20 MG; Start 01/27/19 at 09:00 Docusate Sodium (Colace) 100 mg BID PO Last administered on 02/11/19 08:33; Admin Dose 100 MG; Start 01/26/19 at 21:00 Folic Acid (Folic Acid) 1 mg DAILY PO Last administered on 02/11/19 08:33; Admin Dose 1 MG; Start 01/27/19 at 09:00 Levothyroxine Sodium (Synthroid) 100 mcg BEFORE BREAKFAST PO Last administered on 02/11/19 06:37; Admin Dose 100 MCG; Start 01/27/19 at 07:00 Metoclopramide HCl (Reglan) 5 mg BEFORE MEALS PO Last administered on 02/11/19 12:16; Admin Dose 5 MG; Start 01/27/19 at 07:30 Multivit/Ca Carb/ B Cmplx/FA/Prenat (Wendi-Cathi) 1 tab DAILY PO Last administered on 02/11/19 08:32; Admin Dose 1 TAB; Start 01/27/19 at 09:00 Ondansetron HCl (Zofran Tab) 4 mg Q6H PRN PO NAUSEA AND/OR VOMITING Last administered on 01/30/19 10:43; Admin Dose 4 MG; Start 01/26/19 at 20:00 Pantoprazole (Protonix Tab) 40 mg DAILY PO Last administered on 02/11/19 08:32; Admin Dose 40 MG; Start 01/27/19 at 09:00 Polyethylene Glycol (Miralax) 17 gm DAILY PO Last administered on 02/09/19 08:40; Admin Dose 17 GM; Start 01/27/19 at 09:00 Prednisolone Acetate (Pred-Forte 1%) 1 drop BID RIGHT EYE Last administered on 02/11/19 08:40; Admin Dose 1 DROP; Start 01/26/19 at 21:00 Zinc Sulfate (Zinc Sulfate) 220 mg DAILY PO Last administered on 02/11/19 08:31; Admin Dose 220 MG; Start 01/27/19 at 09:00 Insulin Aspart (Novolog Insulin Pen) NOVOLOG *MODERATE* ALGORITHM WITH MEALS BEDTIME SC Last administered on 02/04/19 17:37; Admin Dose 2 UNIT; Start 01/26/19 at 21:00 Heparin Sodium (Porcine) (Heparin (5000 Units/1ml)) 5,000 unit BID SC Last administered on 02/11/19 08:34; Admin Dose 5,000 UNIT; Start 01/26/19 at 21:00 Morphine Sulfate (morphine) 2 mg Q4H PRN IV SEVERE PAIN LEVEL 7-10 Last administered on 02/08/19 10:00; Admin Dose 2 MG; Start 01/26/19 at 20:30 Miscellaneous Information 1 ea NOTE XX ; Start 01/26/19 at 23:45 Glucose (Glutose) 15 gm Q15M PRN PO DECREASED GLUCOSE; Start 01/26/19 at 23:45 Glucose (Glutose) 22.5 gm Q15M PRN PO DECREASED GLUCOSE; Start 01/26/19 at 23:45 Dextrose (D50w Syringe) 25 ml Q15M PRN IV DECREASED GLUCOSE Last administered on 01/28/19at 07:50; Admin Dose 25 ML; Start 01/26/19 at 23:45 Dextrose (D50w Syringe) 50 ml Q15M PRN IV DECREASED GLUCOSE; Start 01/26/19 at 23:45 Glucagon (Glucagen) 1 mg Q15M PRN IM DECREASED GLUCOSE; Start 01/26/19 at 23:45 Glucose (Glutose) 15 gm Q15M PRN BUCCAL DECREASED GLUCOSE; Start 01/26/19 at 23:45 Alteplase, Recombinant (Cathflo (Activase)) 2 mg MAY REPEAT X1 PRN CATHETER IF CATHETER REMAINS OCCULUDED Last administered on 02/02/19 23:09; Admin Dose 2 MG; Start 01/27/19 at 07:00 Tramadol HCl (Ultram) 50 mg Q6H PO Last administered on 02/11/19 08:32; Admin Dose 50 MG; Start 01/27/19 at 08:00 Collagenase (Santyl) 1 applic DAILY TOP Last administered on 02/11/19 08:33; Admin Dose 1 APPLIC; Start 01/28/19 at 09:00 Sodium Hypochlorite (Dakin'S (Dilute )) 1 applic DAILY IRR Last administered on 02/11/19 08:38; Admin Dose 1 APPLIC; Start 01/28/19 at 09:00 Lorazepam (Ativan) 1 mg Q8H PRN PO ANXIETY; Start 01/27/19 at 22:30 Mupirocin (Bactroban) 1 applic BID TOP Last administered on 02/11/19 08:42; Admin Dose 1 APPLIC; Start 01/28/19 at 21:00 Megestrol Acetate (Megace Susp) 400 mg DAILY PO Last administered on 02/11/19 08:32; Admin Dose 400 MG; Start 01/30/19 at 14:30 Linezolid (Zyvox) 600 mg BID PO Last administered on 02/11/19 08:32; Admin Dose 600 MG; Start 01/31/19 at 16:00 Lactulose (Enulose) 20 gm Q6H PRN PO CONSTIPATION; Start 02/04/19 at 11:00 Hydralazine HCl (Apresoline) 100 mg Q8 PO Last administered on 02/11/19 05:47; Admin Dose 100 MG; Start 02/04/19 at 14:00 Metoprolol Tartrate (Lopressor) 50 mg BID PO Last administered on 02/10/19at 21:11; Admin Dose 50 MG; Start 02/08/19 at 21:00 Ondansetron HCl (Zofran Inj) 4 mg Q6H PRN IV NAUSEA AND/OR VOMITING; Start 02/09/19 at 12:30 Fluconazole (Diflucan) 100 mg DAILY PO Last administered on 02/11/19 08:32; Admin Dose 100 MG; Start 02/09/19 at 14:00 Epoetin Indra-epbx (RETACRIT(esrd)) 8,000 unit TuThSa@1700 SC Last administered on 02/09/19at 18:26; Admin Dose 8,000 UNIT; Start 02/09/19 at 18:18 Meropenem/Sodium Chloride 50 ml @ 100 mls/hr Q12 IVPB Last administered on 02/11/19 08:31; Admin Dose 100 MLS/HR; Start 02/10/19 at 21:00 Amikacin Sulfate (Amikacin Iv Per Pharmacy) AMIKACIN PER PHARMACY NOTE XX ; Start 02/11/19 at 12:30; Status ALYX MIRAMONTES NP Feb 11, 2019 12:41
[2019-02-11 13:45] VITALS: BP 136/67; PULSE 74; RESP 18
--- NOTE | 2019-02-11 14:09 | PN ---
Date/Time of Note Date/Time of Note DATE: 02/11/19 TIME: 14:07 Assessment/Plan Lines/Catheters IV Catheter Type (from [facility]): PICC Line [place] in Place (from [facility]): No Assessment/Plan Chief Complaint/Hosp Course 1. Sacral and bilateral ischial wounds: wnd cx noted; status post sacrum and right ischial debridement 01/29/19 -Further debridement as needed -Continue local care> changed treatment today. Can follow with Dr. Almanza as outpatient in wound clinic. -frequent turning and off-loading -low air loss mattress -vitamin c -short term zinc -optimize nutrition 2. Abdominal pain and generalized weakness: Status post EGD: Gastritis -further w/u per med team -PPI 3. ESRD -limit nephrotoxins -HD per renal -renally dose meds 4. Anemia: Colonoscopy pending -monitor and transfuse as needed 5. Diabetes with episodes of hypoglycemia; no hypoglycemia episodes-sugar control much improved -glucose management 6. Hypothyroidism -med mgt 7. Pleural effusions: Persistent -Pulmonary consult -fluid management 8. Leukocytosis: Improving -As above -Trend Thank you. Patient seen and examined in collaboration with Dr. Simón Almanza. Subjective 24 Hr Interval Summary Feels well. No fevers, chills, sob, congested cough, cp, palpitations, hoffman, dizziness, n/v/d/dysuria. Exam/Review of Systems Vital Signs Vitals Vital Signs Date Temp Pulse Resp B/P (MAP) Pulse Ox O2 O2 Flow FiO2 Time Delivery Rate 02/11/19 98.1 74 18 136/67 98 Room Air 13:45 (90) 02/11/19 2.0 06:09 Intake and Output 02/10/19 02/10/19 02/11/19 1515:00 23:00 07:00 IntakeIntake Total 410 ml 200 ml OutputOutput Total 2600 ml BalanceBalance -2600 ml 410 ml 200 ml Exam Free Text/Dictation Constitutional: alert, oriented, obese Psych: anxiety (minimal) Head: normocephalic, atraumatic Eyes: nl conjunctiva, EOMI, nl lids, nl sclera ENMT: nl external ears & nose, nl lips & teeth, mucosa pink and moist Neck: supple, non-tender; No jvd Respiratory: normal air movement; No congested cough, No labored breathing Cardiovascular: regular rate and rhythm, nl pulses; No edema Gastrointestinal: soft, non-tender, distended Genitourinary - Female: nl external genitalia Musculoskeletal: nl extremities to inspection, nl gait and stance Extremities: normal pulses Neurological: nl mental status, nl speech, nl strength Skin: other (sacral: Packed, no odor, minimal periwound erythema; right ischium: Packed, improved odor; left ischium: unstageable); No rash or lesions Results Result Diagram: 02/11/19 0545 02/11/19 0545 ARSLAN COATES NP Feb 11, 2019 14:09
[2019-02-11] MEDS ORDERED: AMIKACIN 300 MG in SOD CHLORIDE 0.9% 100 ML IVPB SCH (14:30)
--- NOTE | 2019-02-11 16:31 | PN ---
Date/Time of Note Date/Time of Note DATE: 02/11/19 TIME: 16:30 Assessment/Plan VTE Prophylaxis Risk score (from Ns)>0 risk: 7 SCD applied (from Ns): Yes Pharmacological prophylaxis: heparin Lines/Catheters IV [facility] (from [facility] PICC Line Central line still needed: Yes Urinary Cath still in place: No Assessment/Plan Hospital Course Pt looks pale, generalized weakness, continue abx, monitor post void residual, f/up on urine cx. Assessment/Plan -Sacral and bilateral ischial infected wounds. Status post sacrum and right ischial debridement 01/29/19. Dr. Almanza is following in general surgery consultation. Continue antibiotics per ID. Dr. Guevara is following in infection disease consultation. -HCAP with Left lower lobe infiltrate -Abdominal pain. Status post EGD with notion of gastritis. Continue PPI. Status post a colonoscopy with notion of hemorrhoids. -Moderate bilateral pleural effusion -Hemodialysis dependent end-stage renal disease. Continue on hemodialysis. Dr. Mcdaniel is following from nephrology standpoint. -Diabetes mellitus type 2. Continue Levemir and NovoLog per mild algorithm sliding scale. -Hypothyroidism, continue levothyroxine -Hypertension. -Hyperlipidemia, continue statin -Anemia -MRSA of nares colonization. Contact isolation. -Right eye blindness. Further recommendations based on clinical course. Plan of care discussed with Dr. Mandel. Result Diagram: 02/11/19 0545 02/11/19 0545 Results 24hrs Laboratory Tests Test 02/10/19 17:22 02/10/19 21:15 02/11/19 05:45 02/11/19 08:26 Bedside Glucose 90 88 88 White Blood Count 11.6 #H Red Blood Count 2.78 L Hemoglobin 8.1 L Hematocrit 27.0 L Mean Corpuscular Volume 97.1 Mean Corpuscular 29.1 Hemoglobin Mean Corpuscular 30.0 L Hemoglobin Concent Red Cell Distribution 16.7 H Width Platelet Count 180 Mean Platelet Volume 9.1 Immature Granulocytes % 0.600 H Neutrophils % 79.6 H Lymphocytes % 11.2 L Monocytes % 7.9 Eosinophils % 0.4 Basophils % 0.3 Nucleated Red Blood 0.0 Cells % Immature Granulocytes # 0.070 H Neutrophils # 9.2 H Lymphocytes # 1.3 Monocytes # 0.9 Eosinophils # 0.1 Basophils # 0.0 Nucleated Red Blood 0.0 Cells # Sodium Level 138 Potassium Level 3.9 Chloride Level 101 Carbon Dioxide Level 26 Anion Gap 11 Blood Urea Nitrogen 12 Creatinine 1.97 H Est Glomerular Filtrat 26 L Rate mL/min Glucose Level 77 Calcium Level 8.4 Test 02/11/19 12:14 Bedside Glucose 118 Exam/Review of Systems Exam Vitals Vital Signs Date Temp Pulse Resp B/P (MAP) Pulse Ox O2 O2 Flow FiO2 Time Delivery Rate 02/11/19 98.1 74 18 136/67 98 Room Air 13:45 (90) 02/11/19 2.0 06:09 Intake and Output 02/10/19 02/10/19 02/11/19 1515:00 23:00 07:00 IntakeIntake Total 410 ml 200 ml OutputOutput Total 2600 ml BalanceBalance -2600 ml 410 ml 200 ml Exam Constitutional: alert, oriented Eyes: other (Right eye blindness) Respiratory: clear to auscultation Cardiovascular: regular rate and rhythm Gastrointestinal: soft, non-tender Musculoskeletal: nl extremities to inspection Extremities: normal pulses, edema, other (Right upper extremity AV fistula) Neurological: nl mental status Results Results 24hrs Laboratory Tests Test 02/10/19 17:22 02/10/19 21:15 02/11/19 05:45 02/11/19 08:26 Bedside Glucose 90 88 88 White Blood Count 11.6 #H Red Blood Count 2.78 L Hemoglobin 8.1 L Hematocrit 27.0 L Mean Corpuscular Volume 97.1 Mean Corpuscular 29.1 Hemoglobin Mean Corpuscular 30.0 L Hemoglobin Concent Red Cell Distribution 16.7 H Width Platelet Count 180 Mean Platelet Volume 9.1 Immature Granulocytes % 0.600 H Neutrophils % 79.6 H Lymphocytes % 11.2 L Monocytes % 7.9 Eosinophils % 0.4 Basophils % 0.3 Nucleated Red Blood 0.0 Cells % Immature Granulocytes # 0.070 H Neutrophils # 9.2 H Lymphocytes # 1.3 Monocytes # 0.9 Eosinophils # 0.1 Basophils # 0.0 Nucleated Red Blood 0.0 Cells # Sodium Level 138 Potassium Level 3.9 Chloride Level 101 Carbon Dioxide Level 26 Anion Gap 11 Blood Urea Nitrogen 12 Creatinine 1.97 H Est Glomerular Filtrat 26 L Rate mL/min Glucose Level 77 Calcium Level 8.4 Test 02/11/19 12:14 Bedside Glucose 118 Medications Medication Current Medications Amiodarone HCl (Cordarone) 200 mg DAILY PO Last administered on 02/11/19 08:37; Admin Dose 200 MG; Start 01/27/19 at 09:00 Ascorbic Acid (Vitamin C) 500 mg DAILY PO Last administered on 02/11/19 08:31; Admin Dose 500 MG; Start 01/27/19 at 09:00 Atorvastatin Calcium (Lipitor) 20 mg QHS PO Last administered on 02/10/19 21:11; Admin Dose 20 MG; Start 01/26/19 at 21:00 Bisacodyl (Dulcolax) 10 mg Q24H PRN PO CONSTIPATION; Start 01/26/19 at 20:00 Citalopram Hydrobromide (Celexa) 20 mg DAILY PO Last administered on 02/11/19 08:32; Admin Dose 20 MG; Start 01/27/19 at 09:00 Docusate Sodium (Colace) 100 mg BID PO Last administered on 02/11/19 08:33; Admin Dose 100 MG; Start 01/26/19 at 21:00 Folic Acid (Folic Acid) 1 mg DAILY PO Last administered on 02/11/19 08:33; Admin Dose 1 MG; Start 01/27/19 at 09:00 Levothyroxine Sodium (Synthroid) 100 mcg BEFORE BREAKFAST PO Last administered on 02/11/19 06:37; Admin Dose 100 MCG; Start 01/27/19 at 07:00 Metoclopramide HCl (Reglan) 5 mg BEFORE MEALS PO Last administered on 02/11/19 12:16; Admin Dose 5 MG; Start 01/27/19 at 07:30 Multivit/Ca Carb/ B Cmplx/FA/Prenat (Wendi-Cathi) 1 tab DAILY PO Last administered on 02/11/19 08:32; Admin Dose 1 TAB; Start 01/27/19 at 09:00 Ondansetron HCl (Zofran Tab) 4 mg Q6H PRN PO NAUSEA AND/OR VOMITING Last administered on 01/30/19 10:43; Admin Dose 4 MG; Start 01/26/19 at 20:00 Pantoprazole (Protonix Tab) 40 mg DAILY PO Last administered on 02/11/19 08:32; Admin Dose 40 MG; Start 01/27/19 at 09:00 Polyethylene Glycol (Miralax) 17 gm DAILY PO Last administered on 02/09/19 08:40; Admin Dose 17 GM; Start 01/27/19 at 09:00 Prednisolone Acetate (Pred-Forte 1%) 1 drop BID RIGHT EYE Last administered on 02/11/19 08:40; Admin Dose 1 DROP; Start 01/26/19 at 21:00 Zinc Sulfate (Zinc Sulfate) 220 mg DAILY PO Last administered on 02/11/19 08:31; Admin Dose 220 MG; Start 01/27/19 at 09:00 Insulin Aspart (Novolog Insulin Pen) NOVOLOG *MODERATE* ALGORITHM WITH MEALS BEDTIME SC Last administered on 02/04/19 17:37; Admin Dose 2 UNIT; Start 01/26/19 at 21:00 Heparin Sodium (Porcine) (Heparin (5000 Units/1ml)) 5,000 unit BID SC Last administered on 02/11/19 08:34; Admin Dose 5,000 UNIT; Start 01/26/19 at 21:00 Morphine Sulfate (morphine) 2 mg Q4H PRN IV SEVERE PAIN LEVEL 7-10 Last administered on 02/08/19 10:00; Admin Dose 2 MG; Start 01/26/19 at 20:30 Miscellaneous Information 1 ea NOTE XX ; Start 01/26/19 at 23:45 Glucose (Glutose) 15 gm Q15M PRN PO DECREASED GLUCOSE; Start 01/26/19 at 23:45 Glucose (Glutose) 22.5 gm Q15M PRN PO DECREASED GLUCOSE; Start 01/26/19 at 23:45 Dextrose (D50w Syringe) 25 ml Q15M PRN IV DECREASED GLUCOSE Last administered on 01/28/19 07:50; Admin Dose 25 ML; Start 01/26/19 at 23:45 Dextrose (D50w Syringe) 50 ml Q15M PRN IV DECREASED GLUCOSE; Start 01/26/19 at 23:45 Glucagon (Glucagen) 1 mg Q15M PRN IM DECREASED GLUCOSE; Start 01/26/19 at 23:45 Glucose (Glutose) 15 gm Q15M PRN BUCCAL DECREASED GLUCOSE; Start 01/26/19 at 23:45 Alteplase, Recombinant (Cathflo (Activase)) 2 mg MAY REPEAT X1 PRN CATHETER IF CATHETER REMAINS OCCULUDED Last administered on 02/02/19 23:09; Admin Dose 2 MG; Start 01/27/19 at 07:00 Tramadol HCl (Ultram) 50 mg Q6H PO Last administered on 02/11/19 14:59; Admin Dose 50 MG; Start 01/27/19 at 08:00 Collagenase (Santyl) 1 applic DAILY TOP Last administered on 02/11/19 08:33; Admin Dose 1 APPLIC; Start 01/28/19 at 09:00 Sodium Hypochlorite (Dakin'S (Dilute )) 1 applic DAILY IRR Last administered on 02/11/19 08:38; Admin Dose 1 APPLIC; Start 01/28/19 at 09:00 Lorazepam (Ativan) 1 mg Q8H PRN PO ANXIETY; Start 01/27/19 at 22:30 Mupirocin (Bactroban) 1 applic BID TOP Last administered on 02/11/19 08:42; Admin Dose 1 APPLIC; Start 01/28/19 at 21:00 Megestrol Acetate (Megace Susp) 400 mg DAILY PO Last administered on 02/11/19 08:32; Admin Dose 400 MG; Start 01/30/19 at 14:30 Linezolid (Zyvox) 600 mg BID PO Last administered on 02/11/19 08:32; Admin Dose 600 MG; Start 01/31/19 at 16:00 Lactulose (Enulose) 20 gm Q6H PRN PO CONSTIPATION; Start 02/04/19 at 11:00 Hydralazine HCl (Apresoline) 100 mg Q8 PO Last administered on 02/11/19 15:01; Admin Dose 100 MG; Start 02/04/19 at 14:00 Metoprolol Tartrate (Lopressor) 50 mg BID PO Last administered on 02/10/19 21:11; Admin Dose 50 MG; Start 02/08/19 at 21:00 Ondansetron HCl (Zofran Inj) 4 mg Q6H PRN IV NAUSEA AND/OR VOMITING; Start 02/09/19 at 12:30 Fluconazole (Diflucan) 100 mg DAILY PO Last administered on 02/11/19 08:32; Admin Dose 100 MG; Start 02/09/19 at 14:00 Epoetin Indra-epbx (RETACRIT(esrd)) 8,000 unit TuThSa@1700 SC Last administered on 02/09/19at 18:26; Admin Dose 8,000 UNIT; Start 02/09/19 at 18:18 Meropenem/Sodium Chloride 50 ml @ 100 mls/hr Q12 IVPB Last administered on 02/11/19at 08:31; Admin Dose 100 MLS/HR; Start 02/10/19 at 21:00 Amikacin Sulfate (Amikacin Iv Per Pharmacy) AMIKACIN PER PHARMACY NOTE XX ; Start 02/11/19 at 12:30 Amikacin Sulfate 300 mg/Sodium Chloride 101.2 ml @ 102 mls/hr AFTER DIALYSIS IVPB ; Start 02/11/19 at 14:30 SIN IZAGUIRRE Feb 11, 2019 16:31
--- NOTE | 2019-02-11 18:22 | CONS ---
Assessment/Plan Assessment/Plan Hospital Course (Demo Recall) IMPRESSION: 1. Preop evaluation. The patient to undergo EGD whose 2D echo I just read revealing EF lower limits of normal, approximately 50% with no significant contraindicated valvular lesions and negative troponin x1 since admit, patient is okay to proceed at a moderate cardiovascular risk. Now post-op s/p endoscopy and debridement of decub ulcer 2. Congestive heart failure, diastolic acute on chronic. 3. Hypertension. 4. Cardiac arrhythmia, on amiodarone, in sinus rhythm by EKG. 5. Hypothyroidism. 6. Diabetes mellitus. 7. Nausea and vomiting. 8. Generalized weakness. 9. Decubitus ulcers s/p debridement 10. Anemia. 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 12.CKD on HD Recc: -Tele -Contineu BB and hydralazine and continue to follow labile BP closely with BB held today -continue statin -Continue abx's and f/u cx data -local wound care -HD for volume removal Consultation Date/Type/Reason Admit Date/Time Jan 26, 2019 at 17:32 Initial Consult Date 01/27/19 Type of Consult Cardiology Reason for Consultation Preop Requesting Provider: ALEXUS VALENCIA MD Date/Time of Note DATE: 02/11/19 TIME: 18:19 Exam/Review of Systems Vital Signs Vitals Vital Signs Date Temp Pulse Resp B/P (MAP) Pulse Ox O2 O2 Flow FiO2 Time Delivery Rate 02/11/19 98.1 74 18 136/67 98 Room Air 13:45 (90) 02/11/19 2.0 06:09 Intake and Output 02/10/19 02/10/19 02/11/19 1515:00 23:00 07:00 IntakeIntake Total 410 ml 200 ml OutputOutput Total 2600 ml BalanceBalance -2600 ml 410 ml 200 ml Exam Exam Review of Systems: CONSTITUTIONAL: No fevers, chills. PULMONARY: No sob CARDIOVASCULAR: No chest pain/palpitations GASTROINTESTINAL: No nausea/vomiting. GENITOURINARY: No hematuria/dysuria. MUSCULOSKELETAL: No myagias/arthalgias. PSYCHIATRIC: The patient denies depression. NEUROLOGIC: lethargic somewhat Constitutional: alert Psych: no complaints Head: normocephalic ENMT: mucosa pink and moist Neck: supple, jvd (9 cm water) Respiratory: diminished breath sounds (at bases/B) Cardiovascular: regular rate and rhythm Gastrointestinal: soft, non-tender Musculoskeletal: muscle tone (normal) Extremities: edema (none) Neurological: other (No focal deficits) Labs Result Diagram: 02/11/19 0545 02/11/19 0545 Results 24hrs Laboratory Tests Test 02/10/19 21:15 02/11/19 05:45 02/11/19 08:26 02/11/19 12:14 Bedside Glucose 88 88 118 White Blood Count 11.6 #H Red Blood Count 2.78 L Hemoglobin 8.1 L Hematocrit 27.0 L Mean Corpuscular Volume 97.1 Mean Corpuscular 29.1 Hemoglobin Mean Corpuscular 30.0 L Hemoglobin Concent Red Cell Distribution 16.7 H Width Platelet Count 180 Mean Platelet Volume 9.1 Immature Granulocytes % 0.600 H Neutrophils % 79.6 H Lymphocytes % 11.2 L Monocytes % 7.9 Eosinophils % 0.4 Basophils % 0.3 Nucleated Red Blood 0.0 Cells % Immature Granulocytes # 0.070 H Neutrophils # 9.2 H Lymphocytes # 1.3 Monocytes # 0.9 Eosinophils # 0.1 Basophils # 0.0 Nucleated Red Blood 0.0 Cells # Sodium Level 138 Potassium Level 3.9 Chloride Level 101 Carbon Dioxide Level 26 Anion Gap 11 Blood Urea Nitrogen 12 Creatinine 1.97 H Est Glomerular Filtrat 26 L Rate mL/min Glucose Level 77 Calcium Level 8.4 Test 02/11/19 17:50 Bedside Glucose 125 Medications Medications Current Medications Amiodarone HCl (Cordarone) 200 mg DAILY PO Last administered on 02/11/19 08:37; Admin Dose 200 MG; Start 01/27/19 at 09:00 Ascorbic Acid (Vitamin C) 500 mg DAILY PO Last administered on 02/11/19 08:31; Admin Dose 500 MG; Start 01/27/19 at 09:00 Atorvastatin Calcium (Lipitor) 20 mg QHS PO Last administered on 02/10/19 21 :11; Admin Dose 20 MG; Start 01/26/19 at 21:00 Bisacodyl (Dulcolax) 10 mg Q24H PRN PO CONSTIPATION; Start 01/26/19 at 20:00 Citalopram Hydrobromide (Celexa) 20 mg DAILY PO Last administered on 02/11/19 08:32; Admin Dose 20 MG; Start 01/27/19 at 09:00 Docusate Sodium (Colace) 100 mg BID PO Last administered on 02/11/19 08:33; Admin Dose 100 MG; Start 01/26/19 at 21:00 Folic Acid (Folic Acid) 1 mg DAILY PO Last administered on 02/11/19 08:33; Admin Dose 1 MG; Start 01/27/19 at 09:00 Levothyroxine Sodium (Synthroid) 100 mcg BEFORE BREAKFAST PO Last administered on 02/11/19 06:37; Admin Dose 100 MCG; Start 01/27/19 at 07:00 Metoclopramide HCl (Reglan) 5 mg BEFORE MEALS PO Last administered on 02/11/19 17:58; Admin Dose 5 MG; Start 01/27/19 at 07:30 Multivit/Ca Carb/ B Cmplx/FA/Prenat (Wendi-Cathi) 1 tab DAILY PO Last administered on 02/11/19 08:32; Admin Dose 1 TAB; Start 01/27/19 at 09:00 Ondansetron HCl (Zofran Tab) 4 mg Q6H PRN PO NAUSEA AND/OR VOMITING Last administered on 01/30/19 10:43; Admin Dose 4 MG; Start 01/26/19 at 20:00 Pantoprazole (Protonix Tab) 40 mg DAILY PO Last administered on 02/11/19 08:32; Admin Dose 40 MG; Start 01/27/19 at 09:00 Polyethylene Glycol (Miralax) 17 gm DAILY PO Last administered on 02/09/19 08:40; Admin Dose 17 GM; Start 01/27/19 at 09:00 Prednisolone Acetate (Pred-Forte 1%) 1 drop BID RIGHT EYE Last administered on 02/11/19 08:40; Admin Dose 1 DROP; Start 01/26/19 at 21:00 Zinc Sulfate (Zinc Sulfate) 220 mg DAILY PO Last administered on 02/11/19 08:31; Admin Dose 220 MG; Start 01/27/19 at 09:00 Insulin Aspart (Novolog Insulin Pen) NOVOLOG *MODERATE* ALGORITHM WITH MEALS BEDTIME SC Last administered on 02/04/19 17:37; Admin Dose 2 UNIT; Start 01/26/19 at 21:00 Heparin Sodium (Porcine) (Heparin (5000 Units/1ml)) 5,000 unit BID SC Last administered on 02/11/19 08:34; Admin Dose 5,000 UNIT; Start 01/26/19 at 21:00 Morphine Sulfate (morphine) 2 mg Q4H PRN IV SEVERE PAIN LEVEL 7-10 Last administered on 02/08/19 10:00; Admin Dose 2 MG; Start 01/26/19 at 20:30 Miscellaneous Information 1 ea NOTE XX ; Start 01/26/19 at 23:45 Glucose (Glutose) 15 gm Q15M PRN PO DECREASED GLUCOSE; Start 01/26/19 at 23:45 Glucose (Glutose) 22.5 gm Q15M PRN PO DECREASED GLUCOSE; Start 01/26/19 at 23:45 Dextrose (D50w Syringe) 25 ml Q15M PRN IV DECREASED GLUCOSE Last administered on 01/28/19 07:50; Admin Dose 25 ML; Start 01/26/19 at 23:45 Dextrose (D50w Syringe) 50 ml Q15M PRN IV DECREASED GLUCOSE; Start 01/26/19 at 23:45 Glucagon (Glucagen) 1 mg Q15M PRN IM DECREASED GLUCOSE; Start 01/26/19 at 23:45 Glucose (Glutose) 15 gm Q15M PRN BUCCAL DECREASED GLUCOSE; Start 01/26/19 at 23:45 Alteplase, Recombinant (Cathflo (Activase)) 2 mg MAY REPEAT X1 PRN CATHETER IF CATHETER REMAINS OCCULUDED Last administered on 02/02/19 23:09; Admin Dose 2 MG; Start 01/27/19 at 07:00 Tramadol HCl (Ultram) 50 mg Q6H PO Last administered on 02/11/19 14:59; Admin Dose 50 MG; Start 01/27/19 at 08:00 Collagenase (Santyl) 1 applic DAILY TOP Last administered on 02/11/19 08:33; Admin Dose 1 APPLIC; Start 01/28/19 at 09:00 Sodium Hypochlorite (Dakin'S (Dilute )) 1 applic DAILY IRR Last administered on 02/11/19 08:38; Admin Dose 1 APPLIC; Start 01/28/19 at 09:00 Lorazepam (Ativan) 1 mg Q8H PRN PO ANXIETY; Start 01/27/19 at 22:30 Mupirocin (Bactroban) 1 applic BID TOP Last administered on 02/11/19 08:42; Admin Dose 1 APPLIC; Start 01/28/19 at 21:00 Megestrol Acetate (Megace Susp) 400 mg DAILY PO Last administered on 02/11/19 08:32; Admin Dose 400 MG; Start 01/30/19 at 14:30 Linezolid (Zyvox) 600 mg BID PO Last administered on 02/11/19 08:32; Admin Dose 600 MG; Start 01/31/19 at 16:00 Lactulose (Enulose) 20 gm Q6H PRN PO CONSTIPATION; Start 02/04/19 at 11:00 Hydralazine HCl (Apresoline) 100 mg Q8 PO Last administered on 02/11/19at 15:01; Admin Dose 100 MG; Start 02/04/19 at 14:00 Metoprolol Tartrate (Lopressor) 50 mg BID PO Last administered on 02/10/19 21:11; Admin Dose 50 MG; Start 02/08/19 at 21:00 Ondansetron HCl (Zofran Inj) 4 mg Q6H PRN IV NAUSEA AND/OR VOMITING; Start 02/09/19 at 12:30 Fluconazole (Diflucan) 100 mg DAILY PO Last administered on 02/11/19 08:32; Admin Dose 100 MG; Start 02/09/19 at 14:00 Meropenem/Sodium Chloride 50 ml @ 100 mls/hr Q12 IVPB Last administered on 02/11/19 08:31; Admin Dose 100 MLS/HR; Start 02/10/19 at 21:00 Amikacin Sulfate (Amikacin Iv Per Pharmacy) AMIKACIN PER PHARMACY NOTE XX ; Start 02/11/19 at 12:30 Amikacin Sulfate 300 mg/Sodium Chloride 101.2 ml @ 102 mls/hr AFTER DIALYSIS IVPB ; Start 02/11/19 at 14:30 Epoetin Indra-epbx (Retacrit (Esrd)) 8,000 unit TuThSa@1700 SC ; Start 02/11/19 at 18:09 ALIREZA LEE Feb 11, 2019 18:22
[2019-02-11] MEDS: EPOETIN ALFA-EPBX (ESRD) 4,000 UNIT/ML VIAL SC SCH (18:33)
[2019-02-11 20:08] VITALS: BP 134/62; PULSE 74; RESP 20
[2019-02-11] MEDS: ATORVASTATIN 20 MG TAB PO SCH (21:06)
[2019-02-12] VITALS (16 sets, daily range): BP systolic 94–153; BP diastolic 37–89; PULSE 63–68; RESP 17–20
[2019-02-12] MEDS: traMADol 50 MG TAB PO SCH ×4 (02:07→22:22)
[2019-02-12] MEDS: LEVOTHYROXINE 100 MCG TAB PO SCH (07:55)
[2019-02-12] MEDS: METOCLOPRAMIDE 5 MG TAB PO SCH ×3 (07:56→17:30)
[2019-02-12] MEDS: INSULIN ASPART [NOVOLOG] 3 ML PEN SC SCH ×4 (07:57→21:00)
[2019-02-12] MEDS: POLYETHYLENE GLYCOL 17 GM PACKET PO SCH (09:00)
[2019-02-12] MEDS: MEGESTROL (40 MG/ML) 10ML CUP PO SCH (09:34)
[2019-02-12] MEDS: MULTIVIT/CA CARB/B CMPLX/FA TAB PO SCH (09:34)
[2019-02-12] MEDS: DOCUSATE SODIUM 100 MG CAP PO SCH ×2 (09:34→22:23)
[2019-02-12] MEDS: ASCORBIC ACID 500 MG TAB PO SCH (09:34)
[2019-02-12] MEDS: MEROPENEM 500MG/50 ML (PMX) 50 ML IVPB SCH ×2 (09:34→22:23)
[2019-02-12] MEDS: CITALOPRAM 20 MG TAB PO SCH (09:34)
[2019-02-12] MEDS: FOLIC ACID 1 MG TAB PO SCH (09:34)
[2019-02-12] MEDS: AMIODARONE 200 MG TAB PO SCH (09:35)
[2019-02-12] MEDS: ZINC SULFATE 220 MG CAP PO SCH (09:35)
[2019-02-12] MEDS: FLUCONAZOLE 100 MG TAB PO SCH (09:35)
[2019-02-12] MEDS: ZYVOX 600 MG TAB PO SCH ×2 (09:35→22:27)
[2019-02-12] MEDS: METOPROLOL 50 MG TAB PO SCH ×2 (09:35→22:24)
[2019-02-12] MEDS: PANTOPRAZOLE (EC) 40 MG TAB PO SCH (09:35)
[2019-02-12] MEDS: HEPARIN 5,000 UNIT/1 ML VIAL SC SCH ×2 (09:37→22:37)
[2019-02-12] MEDS: SODIUM HYPOCHLORITE (1/40) 1 LITER BTL IRR SCH (09:39)
[2019-02-12] MEDS: BALSAM PERU/CASTOR OIL 60 GM TUBE TOP SCH ×2 (09:40→22:39)
[2019-02-12] MEDS: COLLAGENASE 5 GM (UD JAR) TOP SCH (09:40)
[2019-02-12] MEDS: MUPIROCIN 2% 22 GM OINT TOP SCH ×2 (09:40→22:39)
[2019-02-12] MEDS: PREDNISOLONE ACET 1% 5 ML OPH RIGHT EYE SCH ×2 (09:40→22:40)
--- NOTE | 2019-02-12 13:48 | PN ---
Date/Time of Note Date/Time of Note DATE: 02/12/19 TIME: 13:47 Assessment/Plan Lines/Catheters IV Catheter Type (from Nrs): PICC Line [place] in Place (from Nrs): No Assessment/Plan Chief Complaint/Hosp Course 1. Sacral and bilateral ischial wounds: wnd cx noted; status post sacrum and right ischial debridement 01/29/19 -Further debridement as needed -Continue local care> Can follow with Dr. Almanza as outpatient in wound clinic. -frequent turning and off-loading -low air loss mattress -vitamin c -short term zinc -optimize nutrition 2. Abdominal pain and generalized weakness: Status post EGD: Gastritis -further w/u per med team -PPI 3. ESRD -limit nephrotoxins -HD per renal -renally dose meds 4. Anemia: Colonoscopy pending -monitor and transfuse as needed 5. Diabetes with episodes of hypoglycemia; no hypoglycemia episodes-sugar control much improved -glucose management 6. Hypothyroidism -med mgt 7. Pleural effusions: Persistent -Pulmonary consult -fluid management 8. Leukocytosis: Persistent -As above -Trend Thank you. Patient seen and examined in collaboration with Dr. Simón Almanza. Subjective 24 Hr Interval Summary No acute events. No fevers, chills, sob, congested cough, cp, palpitations, hoffman, dizziness, nausea, vomiting, diarrhea, dysuria, excessive wound drainage or odor. Exam/Review of Systems Vital Signs Vitals Vital Signs Date Temp Pulse Resp B/P (MAP) Pulse Ox O2 O2 Flow FiO2 Time Delivery Rate 02/12/19 98.8 63 17 142/65 98 Room Air 08:21 (90) 02/12/19 2.0 05:44 Intake and Output 02/11/19 02/11/19 02/12/19 1414:59 22:59 06:59 IntakeIntake Total 600 ml 50 ml BalanceBalance 600 ml 50 ml Exam Free Text/Dictation Constitutional: alert, oriented, obese Psych: anxiety (minimal) Head: normocephalic, atraumatic Eyes: nl conjunctiva, EOMI, nl lids, nl sclera ENMT: nl external ears & nose, nl lips & teeth, mucosa pink and moist Neck: supple, non-tender; No jvd Respiratory: normal air movement; No congested cough, No labored breathing Cardiovascular: regular rate and rhythm, nl pulses; No edema Gastrointestinal: soft, non-tender, distended Genitourinary - Female: nl external genitalia Musculoskeletal: nl extremities to inspection, nl gait and stance Extremities: normal pulses Neurological: nl mental status, nl speech, nl strength Skin: other (sacral: Packed, no odor, minimal periwound erythema; right ischium: Packed, improved odor; left ischium: unstageable); No rash or lesions Results Result Diagram: 02/11/19 0545 02/11/19 0545 ARSLAN COATES NP Feb 12, 2019 13:48
--- NOTE | 2019-02-12 14:36 | CONS ---
Assessment/Plan Assessment/Plan Hospital Course (Demo Recall) All noted, no events, no fevers Microbiology sacral wound culture grew Proteus, E. coli ESBL, VRE, and MRSA Antimicrobials: Amikacin, Zyvox Diflucan Merrem PHYSICAL EXAMINATION: GENERAL: This is a fragile, wasted, well-developed, elderly woman, who is in no distress. HEENT: Head atraumatic, normocephalic. Sclerae anicteric. The patient has right eye blindness. Buccal mucosa pale, dry. NECK: Supple. CHEST: Rise symmetrical. Breath sounds diminished to bases. HEART: S1, S2. ABDOMEN: Obese, soft, bowel tones present. EXTREMITIES: Bilateral edema. SKIN: The patient has a large necrotic wounds on bilateral buttocks, left buttock and left posterior thigh area , also, necrotic wound. The patient has pressure sores on her left heel as well. Assessment: 1. Multiple necrotic infected wounds, s/p debridement 2. End-stage renal disease, hemodialysis dependent 3. Diabetes 4. Hypertension 5. MRSA colonization 6. HCAP 7. Gastroparesis 8. UTI==> Proteus Plan: Clinically unchanged, no fevers, continue present care, bladder scan/straight cath prn, dc Diflucan Consultation Date/Type/Reason Admit Date/Time Jan 26, 2019 at 17:32 Initial Consult Date 01/27/19 Type of Consult id Requesting Provider: ALEXUS VALENCIA MD Date/Time of Note DATE: 02/12/19 TIME: 14:35 Exam/Review of Systems Exam Vitals Vital Signs Date Temp Pulse Resp B/P (MAP) Pulse Ox O2 O2 Flow FiO2 Time Delivery Rate 02/12/19 98.8 63 17 142/65 98 Room Air 08:21 (90) 02/12/19 2.0 05:44 Intake and Output 02/11/19 02/11/19 02/12/19 1515:00 23:00 07:00 IntakeIntake Total 600 ml 50 ml BalanceBalance 600 ml 50 ml Results Result Diagram: 02/11/19 0545 02/11/19 0545 Results 24hrs Laboratory Tests Test 02/11/19 17:50 02/11/19 21:19 02/12/19 07:57 02/12/19 11:58 Bedside Glucose 125 130 123 138 Medications Medication Current Medications Amiodarone HCl (Cordarone) 200 mg DAILY PO Last administered on 02/12/19 09:35; Admin Dose 200 MG; Start 01/27/19 at 09:00 Ascorbic Acid (Vitamin C) 500 mg DAILY PO Last administered on 02/12/19 09:34; Admin Dose 500 MG; Start 01/27/19 at 09:00 Atorvastatin Calcium (Lipitor) 20 mg QHS PO Last administered on 02/11/19 21:06; Admin Dose 20 MG; Start 01/26/19 at 21:00 Bisacodyl (Dulcolax) 10 mg Q24H PRN PO CONSTIPATION; Start 01/26/19 at 20:00 Citalopram Hydrobromide (Celexa) 20 mg DAILY PO Last administered on 02/12/19 09:34; Admin Dose 20 MG; Start 01/27/19 at 09:00 Docusate Sodium (Colace) 100 mg BID PO Last administered on 02/12/19 09:34; Admin Dose 100 MG; Start 01/26/19 at 21:00 Folic Acid (Folic Acid) 1 mg DAILY PO Last administered on 02/12/19 09:34; Admin Dose 1 MG; Start 01/27/19 at 09:00 Levothyroxine Sodium (Synthroid) 100 mcg BEFORE BREAKFAST PO Last administered on 02/12/19 07:55; Admin Dose 100 MCG; Start 01/27/19 at 07:00 Metoclopramide HCl (Reglan) 5 mg BEFORE MEALS PO Last administered on 02/12/19 11:55; Admin Dose 5 MG; Start 01/27/19 at 07:30 Multivit/Ca Carb/ B Cmplx/FA/Prenat (Wendi-Cathi) 1 tab DAILY PO Last administered on 02/12/19 09:34; Admin Dose 1 TAB; Start 01/27/19 at 09:00 Ondansetron HCl (Zofran Tab) 4 mg Q6H PRN PO NAUSEA AND/OR VOMITING Last administered on 01/30/19 10:43; Admin Dose 4 MG; Start 01/26/19 at 20:00 Pantoprazole (Protonix Tab) 40 mg DAILY PO Last administered on 02/12/19 09:35; Admin Dose 40 MG; Start 01/27/19 at 09:00 Polyethylene Glycol (Miralax) 17 gm DAILY PO Last administered on 02/09/19 08:40; Admin Dose 17 GM; Start 01/27/19 at 09:00 Prednisolone Acetate (Pred-Forte 1%) 1 drop BID RIGHT EYE Last administered on 02/12/19 09:40; Admin Dose 1 DROP; Start 01/26/19 at 21:00 Zinc Sulfate (Zinc Sulfate) 220 mg DAILY PO Last administered on 02/12/19 09:35; Admin Dose 220 MG; Start 01/27/19 at 09:00 Insulin Aspart (Novolog Insulin Pen) NOVOLOG *MODERATE* ALGORITHM WITH MEALS BEDTIME SC Last administered on 02/04/19 17:37; Admin Dose 2 UNIT; Start 01/26/19 at 21:00 Heparin Sodium (Porcine) (Heparin (5000 Units/1ml)) 5,000 unit BID SC Last administered on 02/12/19 09:37; Admin Dose 5,000 UNIT; Start 01/26/19 at 21:00 Morphine Sulfate (morphine) 2 mg Q4H PRN IV SEVERE PAIN LEVEL 7-10 Last administered on 02/08/19 10:00; Admin Dose 2 MG; Start 01/26/19 at 20:30 Miscellaneous Information 1 ea NOTE XX ; Start 01/26/19 at 23:45 Glucose (Glutose) 15 gm Q15M PRN PO DECREASED GLUCOSE; Start 01/26/19 at 23:45 Glucose (Glutose) 22.5 gm Q15M PRN PO DECREASED GLUCOSE; Start 01/26/19 at 23:45 Dextrose (D50w Syringe) 25 ml Q15M PRN IV DECREASED GLUCOSE Last administered on 01/28/19 07:50; Admin Dose 25 ML; Start 01/26/19 at 23:45 Dextrose (D50w Syringe) 50 ml Q15M PRN IV DECREASED GLUCOSE; Start 01/26/19 at 23:45 Glucagon (Glucagen) 1 mg Q15M PRN IM DECREASED GLUCOSE; Start 01/26/19 at 23:45 Glucose (Glutose) 15 gm Q15M PRN BUCCAL DECREASED GLUCOSE; Start 01/26/19 at 23:45 Alteplase, Recombinant (Cathflo (Activase)) 2 mg MAY REPEAT X1 PRN CATHETER IF CATHETER REMAINS OCCULUDED Last administered on 02/02/19 23:09; Admin Dose 2 MG; Start 01/27/19 at 07:00 Tramadol HCl (Ultram) 50 mg Q6H PO Last administered on 02/12/19 07:56; Admin Dose 50 MG; Start 01/27/19 at 08:00 Collagenase (Santyl) 1 applic DAILY TOP Last administered on 02/12/19 09:40; Admin Dose 1 APPLIC; Start 01/28/19 at 09:00 Sodium Hypochlorite (Dakin'S (Dilute )) 1 applic DAILY IRR Last administered on 02/12/19 09:39; Admin Dose 1 APPLIC; Start 01/28/19 at 09:00 Lorazepam (Ativan) 1 mg Q8H PRN PO ANXIETY; Start 01/27/19 at 22:30 Mupirocin (Bactroban) 1 applic BID TOP Last administered on 02/12/19 09:40; Admin Dose 1 APPLIC; Start 01/28/19 at 21:00 Megestrol Acetate (Megace Susp) 400 mg DAILY PO Last administered on 02/12/19 09:34; Admin Dose 400 MG; Start 01/30/19 at 14:30 Linezolid (Zyvox) 600 mg BID PO Last administered on 02/12/19 09:35; Admin Dose 600 MG; Start 01/31/19 at 16:00 Lactulose (Enulose) 20 gm Q6H PRN PO CONSTIPATION; Start 02/04/19 at 11:00 Hydralazine HCl (Apresoline) 100 mg Q8 PO Last administered on 02/12/19 06:07; Admin Dose 100 MG; Start 02/04/19 at 14:00 Metoprolol Tartrate (Lopressor) 50 mg BID PO Last administered on 02/12/19 09:35; Admin Dose 50 MG; Start 02/08/19 at 21:00 Ondansetron HCl (Zofran Inj) 4 mg Q6H PRN IV NAUSEA AND/OR VOMITING; Start 02/09/19 at 12:30 Fluconazole (Diflucan) 100 mg DAILY PO Last administered on 02/12/19 09:35; Admin Dose 100 MG; Start 02/09/19 at 14:00 Meropenem/Sodium Chloride 50 ml @ 100 mls/hr Q12 IVPB Last administered on 4/5/19at 09:34; Admin Dose 100 MLS/HR; Start 02/10/19 at 21:00 Amikacin Sulfate (Amikacin Iv Per Pharmacy) AMIKACIN PER PHARMACY NOTE XX ; Start 02/11/19 at 12:30 Amikacin Sulfate 300 mg/Sodium Chloride 101.2 ml @ 102 mls/hr AFTER DIALYSIS IVPB ; Start 02/11/19 at 14:30 Epoetin Indra-epbx (Retacrit (Esrd)) 8,000 unit TuThSa@1700 SC Last administered on 02/11/19at 18:33; Admin Dose 8,000 UNIT; Start 02/11/19 at 18:09 ALYX NAVARRO NP Feb 12, 2019 14:36
--- NOTE | 2019-02-12 15:40 | CONS ---
Assessment/Plan Assessment/Plan Hospital Course (Demo Recall) IMPRESSION: 1. Preop evaluation. The patient to undergo EGD whose 2D echo I just read revealing EF lower limits of normal, approximately 50% with no significant contraindicated valvular lesions and negative troponin x1 since admit, patient is okay to proceed at a moderate cardiovascular risk. Now post-op s/p endoscopy and debridement of decub ulcer 2. Congestive heart failure, diastolic acute on chronic. 3. Hypertension. 4. Cardiac arrhythmia, on amiodarone, in sinus rhythm by EKG. 5. Hypothyroidism. 6. Diabetes mellitus. 7. Nausea and vomiting. 8. Generalized weakness. 9. Decubitus ulcers s/p debridement 10. Anemia. 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 12.CKD on HD Recc: -Tele -Contineu BB and hydralazine and continue to follow labile BP closely -continue statin -Continue abx's and f/u cx data -local wound care -HD for volume removal Consultation Date/Type/Reason Admit Date/Time Jan 26, 2019 at 17:32 Initial Consult Date 01/27/19 Type of Consult Cardiology Reason for Consultation Preop Requesting Provider: ALEXUS VALENCIA MD Date/Time of Note DATE: 02/12/19 TIME: 15:36 Exam/Review of Systems Vital Signs Vitals Vital Signs Date Temp Pulse Resp B/P (MAP) Pulse Ox O2 O2 Flow FiO2 Time Delivery Rate 02/12/19 98.6 63 18 153/66 99 Room Air 14:55 (95) 02/12/19 2.0 05:44 Intake and Output 02/11/19 02/11/19 02/12/19 1414:59 22:59 06:59 IntakeIntake Total 600 ml 50 ml BalanceBalance 600 ml 50 ml Exam Exam Review of Systems: CONSTITUTIONAL: No fevers, chills. PULMONARY: No sob CARDIOVASCULAR: No chest pain/palpitations GASTROINTESTINAL: No nausea/vomiting. GENITOURINARY: No hematuria/dysuria. MUSCULOSKELETAL: No myagias/arthalgias. PSYCHIATRIC: The patient denies depression. NEUROLOGIC: No weakness Constitutional: alert Psych: no complaints Head: normocephalic ENMT: mucosa pink and moist Neck: supple, jvd Respiratory: diminished breath sounds Cardiovascular: regular rate and rhythm Gastrointestinal: soft, non-tender Extremities: edema (none) Neurological: other (No focal deficits) Labs Result Diagram: 02/11/19 0545 02/11/19 0545 Results 24hrs Laboratory Tests Test 02/11/19 17:50 02/11/19 21:19 02/12/19 07:57 02/12/19 11:58 Bedside Glucose 125 130 123 138 Medications Medications Current Medications Amiodarone HCl (Cordarone) 200 mg DAILY PO Last administered on 02/12/19 09:35; Admin Dose 200 MG; Start 01/27/19 at 09:00 Ascorbic Acid (Vitamin C) 500 mg DAILY PO Last administered on 02/12/19 09:34; Admin Dose 500 MG; Start 01/27/19 at 09:00 Atorvastatin Calcium (Lipitor) 20 mg QHS PO Last administered on 02/11/19 21:06; Admin Dose 20 MG; Start 01/26/19 at 21:00 Bisacodyl (Dulcolax) 10 mg Q24H PRN PO CONSTIPATION; Start 01/26/19 at 20:00 Citalopram Hydrobromide (Celexa) 20 mg DAILY PO Last administered on 02/12/19 09:34; Admin Dose 20 MG; Start 01/27/19 at 09:00 Docusate Sodium (Colace) 100 mg BID PO Last administered on 02/12/19 09:34; Admin Dose 100 MG; Start 01/26/19 at 21:00 Folic Acid (Folic Acid) 1 mg DAILY PO Last administered on 02/12/19 09:34; Admin Dose 1 MG; Start 01/27/19 at 09:00 Levothyroxine Sodium (Synthroid) 100 mcg BEFORE BREAKFAST PO Last administered on 02/12/19 07:55; Admin Dose 100 MCG; Start 01/27/19 at 07:00 Metoclopramide HCl (Reglan) 5 mg BEFORE MEALS PO Last administered on 02/12/19 11:55; Admin Dose 5 MG; Start 01/27/19 at 07:30 Multivit/Ca Carb/ B Cmplx/FA/Prenat (Wendi-Cathi) 1 tab DAILY PO Last administered on 02/12/19 09:34; Admin Dose 1 TAB; Start 01/27/19 at 09:00 Ondansetron HCl (Zofran Tab) 4 mg Q6H PRN PO NAUSEA AND/OR VOMITING Last administered on 01/30/19 10:43; Admin Dose 4 MG; Start 01/26/19 at 20:00 Pantoprazole (Protonix Tab) 40 mg DAILY PO Last administered on 02/12/19 09:35; Admin Dose 40 MG; Start 01/27/19 at 09:00 Polyethylene Glycol (Miralax) 17 gm DAILY PO Last administered on 02/09/19 08:40; Admin Dose 17 GM; Start 01/27/19 at 09:00 Prednisolone Acetate (Pred-Forte 1%) 1 drop BID RIGHT EYE Last administered on 02/12/19 09:40; Admin Dose 1 DROP; Start 01/26/19 at 21:00 Zinc Sulfate (Zinc Sulfate) 220 mg DAILY PO Last administered on 02/12/19 09:35; Admin Dose 220 MG; Start 01/27/19 at 09:00 Insulin Aspart (Novolog Insulin Pen) NOVOLOG *MODERATE* ALGORITHM WITH MEALS BEDTIME SC Last administered on 02/04/19 17:37; Admin Dose 2 UNIT; Start 01/26/19 at 21:00 Heparin Sodium (Porcine) (Heparin (5000 Units/1ml)) 5,000 unit BID SC Last administered on 02/12/19 09:37; Admin Dose 5,000 UNIT; Start 01/26/19 at 21:00 Morphine Sulfate (morphine) 2 mg Q4H PRN IV SEVERE PAIN LEVEL 7-10 Last administered on 02/08/19 10:00; Admin Dose 2 MG; Start 01/26/19 at 20:30 Miscellaneous Information 1 ea NOTE XX ; Start 01/26/19 at 23:45 Glucose (Glutose) 15 gm Q15M PRN PO DECREASED GLUCOSE; Start 01/26/19 at 23:45 Glucose (Glutose) 22.5 gm Q15M PRN PO DECREASED GLUCOSE; Start 01/26/19 at 23:45 Dextrose (D50w Syringe) 25 ml Q15M PRN IV DECREASED GLUCOSE Last administered on 01/28/19 07:50; Admin Dose 25 ML; Start 01/26/19 at 23:45 Dextrose (D50w Syringe) 50 ml Q15M PRN IV DECREASED GLUCOSE; Start 01/26/19 at 23:45 Glucagon (Glucagen) 1 mg Q15M PRN IM DECREASED GLUCOSE; Start 01/26/19 at 23:45 Glucose (Glutose) 15 gm Q15M PRN BUCCAL DECREASED GLUCOSE; Start 01/26/19 at 23:45 Alteplase, Recombinant (Cathflo (Activase)) 2 mg MAY REPEAT X1 PRN CATHETER IF CATHETER REMAINS OCCULUDED Last administered on 02/02/19 23:09; Admin Dose 2 MG; Start 01/27/19 at 07:00 Tramadol HCl (Ultram) 50 mg Q6H PO Last administered on 02/12/19 14:59; Admin Dose 50 MG; Start 01/27/19 at 08:00 Collagenase (Santyl) 1 applic DAILY TOP Last administered on 02/12/19 09:40; Admin Dose 1 APPLIC; Start 01/28/19 at 09:00 Sodium Hypochlorite (Dakin'S (Dilute )) 1 applic DAILY IRR Last administered on 02/12/19 09:39; Admin Dose 1 APPLIC; Start 01/28/19 at 09:00 Lorazepam (Ativan) 1 mg Q8H PRN PO ANXIETY; Start 01/27/19 at 22:30 Mupirocin (Bactroban) 1 applic BID TOP Last administered on 02/12/19 09:40; Admin Dose 1 APPLIC; Start 01/28/19 at 21:00 Megestrol Acetate (Megace Susp) 400 mg DAILY PO Last administered on 02/12/19 09:34; Admin Dose 400 MG; Start 01/30/19 at 14:30 Linezolid (Zyvox) 600 mg BID PO Last administered on 02/12/19 09:35; Admin Dose 600 MG; Start 01/31/19 at 16:00 Lactulose (Enulose) 20 gm Q6H PRN PO CONSTIPATION; Start 02/04/19 at 11:00 Hydralazine HCl (Apresoline) 100 mg Q8 PO Last administered on 02/12/19 06:07; Admin Dose 100 MG; Start 02/04/19 at 14:00 Metoprolol Tartrate (Lopressor) 50 mg BID PO Last administered on 02/12/19 09:35; Admin Dose 50 MG; Start 02/08/19 at 21:00 Ondansetron HCl (Zofran Inj) 4 mg Q6H PRN IV NAUSEA AND/OR VOMITING; Start 02/09/19 at 12:30 Meropenem/Sodium Chloride 50 ml @ 100 mls/hr Q12 IVPB Last administered on 02/12/19at 09:34; Admin Dose 100 MLS/HR; Start 02/10/19 at 21:00 Amikacin Sulfate (Amikacin Iv Per Pharmacy) AMIKACIN PER PHARMACY NOTE XX ; Start 02/11/19 at 12:30 Amikacin Sulfate 300 mg/Sodium Chloride 101.2 ml @ 102 mls/hr AFTER DIALYSIS IVPB ; Start 02/11/19 at 14:30 Epoetin Indra-epbx (Retacrit (Esrd)) 8,000 unit TuThSa@1700 SC Last administered on 02/11/19at 18:33; Admin Dose 8,000 UNIT; Start 02/11/19 at 18:09 ALIREZA LEE Feb 12, 2019 15:40
--- NOTE | 2019-02-12 18:12 | PN ---
Date/Time of Note Date/Time of Note DATE: 02/12/19 TIME: 18:12 Assessment/Plan VTE Prophylaxis Risk score (from Ns)>0 risk: 7 SCD applied (from Ns): Yes SCD contraindicated: other Pharmacological prophylaxis: other Pharm contraindication: other Lines/Catheters IV [facility] Type (from [facility]): PICC Line Central line still needed: Yes Urinary Cath still in place: No Assessment/Plan Assessment/Plan -Sacral and bilateral ischial infected wounds. Status post sacrum and right ischial debridement 01/29/19. Dr. Almanza is following in general surgery consultation. Continue antibiotics per ID. Dr. Guevara is following in i nfection disease consultation. -HCAP with Left lower lobe infiltrate -Abdominal pain. Status post EGD with notion of gastritis. Continue PPI. Status post a colonoscopy with notion of hemorrhoids. -Moderate bilateral pleural effusion -Hemodialysis dependent end-stage renal disease. Continue on hemodialysis. Dr. Mcdaniel is following from nephrology standpoint. -Diabetes mellitus type 2. Continue Levemir and NovoLog per mild algorithm sliding scale. -Hypothyroidism, continue levothyroxine -Hypertension. -Hyperlipidemia, continue statin -Anemia -MRSA of nares colonization. Contact isolation. -Right eye blindness. Further recommendations based on clinical course. Plan of care discussed with Dr. Mandel. Result Diagram: 02/11/19 0545 02/11/19 0545 Results 24hrs Laboratory Tests Test 02/11/19 21:19 02/12/19 07:57 02/12/19 11:58 02/12/19 17:38 Bedside Glucose 130 123 138 131 Subjective 24 Hr Interval Summary Free Text/Dictation nad seems comfortable WBC elevated -ID follows Cr elevated- Medical Claims Assistant follows infected wounds- surgery follows afebrile seems comfortable no new issues reported last night Constitutional: no complaints Eyes: no complaints ENT: no complaints Respiratory: no complaints Cardiovascular: no complaints Gastrointestinal: no complaints Exam/Review of Systems Exam Vitals Vital Signs Date Temp Pulse Resp B/P (MAP) Pulse Ox O2 O2 Flow FiO2 Time Delivery Rate 02/12/19 98.6 63 18 153/66 99 Room Air 14:55 (95) 02/12/19 2.0 08:00 Intake and Output 02/11/19 02/11/19 02/12/19 1515:00 23:00 07:00 IntakeIntake Total 600 ml 50 ml BalanceBalance 600 ml 50 ml Constitutional: alert, well developed Psych: nl mood/affect Head: normocephalic Eyes: nl lids, nl sclera ENMT: nl external ears & nose Neck: non-tender Respiratory: clear to auscultation Cardiovascular: nl pulses, other (s1s2) Gastrointestinal: soft, non-tender Extremities: normal pulses Neurological: nl speech Skin: other (decubs) Results Results 24hrs Laboratory Tests Test 02/11/19 21:19 02/12/19 07:57 02/12/19 11:58 02/12/19 17:38 Bedside Glucose 130 123 138 131 Medications Medication Current Medications Amiodarone HCl (Cordarone) 200 mg DAILY PO Last administered on 02/12/19 09:35; Admin Dose 200 MG; Start 01/27/19 at 09:00 Ascorbic Acid (Vitamin C) 500 mg DAILY PO Last administered on 02/12/19 09:34; Admin Dose 500 MG; Start 01/27/19 at 09:00 Atorvastatin Calcium (Lipitor) 20 mg QHS PO Last administered on 02/11/19 21:06; Admin Dose 20 MG; Start 01/26/19 at 21:00 Bisacodyl (Dulcolax) 10 mg Q24H PRN PO CONSTIPATION; Start 01/26/19 at 20:00 Citalopram Hydrobromide (Celexa) 20 mg DAILY PO Last administered on 02/12/19 09:34; Admin Dose 20 MG; Start 01/27/19 at 09:00 Docusate Sodium (Colace) 100 mg BID PO Last administered on 02/12/19 09:34; Admin Dose 100 MG; Start 01/26/19 at 21:00 Folic Acid (Folic Acid) 1 mg DAILY PO Last administered on 02/12/19 09:34; Adm in Dose 1 MG; Start 01/27/19 at 09:00 Levothyroxine Sodium (Synthroid) 100 mcg BEFORE BREAKFAST PO Last administered on 02/12/19 07:55; Admin Dose 100 MCG; Start 01/27/19 at 07:00 Metoclopramide HCl (Reglan) 5 mg BEFORE MEALS PO Last administered on 02/12/19 11:55; Admin Dose 5 MG; Start 01/27/19 at 07:30 Multivit/Ca Carb/ B Cmplx/FA/Prenat (Wendi-Cathi) 1 tab DAILY PO Last administered on 02/12/19 09:34; Admin Dose 1 TAB; Start 01/27/19 at 09:00 Ondansetron HCl (Zofran Tab) 4 mg Q6H PRN PO NAUSEA AND/OR VOMITING Last administered on 01/30/19 10:43; Admin Dose 4 MG; Start 01/26/19 at 20:00 Pantoprazole (Protonix Tab) 40 mg DAILY PO Last administered on 02/12/19 09:35; Admin Dose 40 MG; Start 01/27/19 at 09:00 Polyethylene Glycol (Miralax) 17 gm DAILY PO Last administered on 02/09/19 08:40; Admin Dose 17 GM; Start 01/27/19 at 09:00 Prednisolone Acetate (Pred-Forte 1%) 1 drop BID RIGHT EYE Last administered on 02/12/19 09:40; Admin Dose 1 DROP; Start 01/26/19 at 21:00 Zinc Sulfate (Zinc Sulfate) 220 mg DAILY PO Last administered on 02/12/19 09:35; Admin Dose 220 MG; Start 01/27/19 at 09:00 Insulin Aspart (Novolog Insulin Pen) NOVOLOG *MODERATE* ALGORITHM WITH MEALS BEDTIME SC Last administered on 02/04/19 17:37; Admin Dose 2 UNIT; Start 01/26/19 at 21:00 Heparin Sodium (Porcine) (Heparin (5000 Units/1ml)) 5,000 unit BID SC Last administered on 02/12/19 09:37; Admin Dose 5,000 UNIT; Start 01/26/19 at 21:00 Morphine Sulfate (morphine) 2 mg Q4H PRN IV SEVERE PAIN LEVEL 7-10 Last administered on 02/08/19 10:00; Admin Dose 2 MG; Start 01/26/19 at 20:30 Miscellaneous Information 1 ea NOTE XX ; Start 01/26/19 at 23:45 Glucose (Glutose) 15 gm Q15M PRN PO DECREASED GLUCOSE; Start 01/26/19 at 23:45 Glucose (Glutose) 22.5 gm Q15M PRN PO DECREASED GLUCOSE; Start 01/26/19 at 23:45 Dextrose (D50w Syringe) 25 ml Q15M PRN IV DECREASED GLUCOSE Last administered on 01/28/19 07:50; Admin Dose 25 ML; Start 01/26/19 at 23:45 Dextrose (D50w Syringe) 50 ml Q15M PRN IV DECREASED GLUCOSE; Start 01/26/19 at 23:45 Glucagon (Glucagen) 1 mg Q15M PRN IM DECREASED GLUCOSE; Start 01/26/19 at 23:45 Glucose (Glutose) 15 gm Q15M PRN BUCCAL DECREASED GLUCOSE; Start 01/26/19 at 23:45 Alteplase, Recombinant (Cathflo (Activase)) 2 mg MAY REPEAT X1 PRN CATHETER IF CATHETER REMAINS OCCULUDED Last administered on 02/02/19 23:09; Admin Dose 2 MG; Start 01/27/19 at 07:00 Tramadol HCl (Ultram) 50 mg Q6H PO Last administered on 02/12/19 14:59; Admin Dose 50 MG; Start 01/27/19 at 08:00 Collagenase (Santyl) 1 applic DAILY TOP Last administered on 02/12/19 09:40; Admin Dose 1 APPLIC; Start 01/28/19 at 09:00 Sodium Hypochlorite (Dakin'S (Dilute )) 1 applic DAILY IRR Last ad ministered on 02/12/19 09:39; Admin Dose 1 APPLIC; Start 01/28/19 at 09:00 Lorazepam (Ativan) 1 mg Q8H PRN PO ANXIETY; Start 01/27/19 at 22:30 Mupirocin (Bactroban) 1 applic BID TOP Last administered on 02/12/19 09:40; Admin Dose 1 APPLIC; Start 01/28/19 at 21:00 Megestrol Acetate (Megace Susp) 400 mg DAILY PO Last administered on 02/12/19 09:34; Admin Dose 400 MG; Start 01/30/19 at 14:30 Linezolid (Zyvox) 600 mg BID PO Last administered on 02/12/19 09:35; Admin Dose 600 MG; Start 01/31/19 at 16:00 Lactulose (Enulose) 20 gm Q6H PRN PO CONSTIPATION; Start 02/04/19 at 11:00 Hydralazine HCl (Apresoline) 100 mg Q8 PO Last administered on 02/12/19 06:07; Admin Dose 100 MG; Start 02/04/19 at 14:00 Metoprolol Tartrate (Lopressor) 50 mg BID PO Last administered on 02/12/19at 09:35; Admin Dose 50 MG; Start 02/08/19 at 21:00 Ondansetron HCl (Zofran Inj) 4 mg Q6H PRN IV NAUSEA AND/OR VOMITING; Start 02/09/19 at 12:30 Meropenem/Sodium Chloride 50 ml @ 100 mls/hr Q12 IVPB Last administered on 02/12/19at 09:34; Admin Dose 100 MLS/HR; Start 02/10/19 at 21:00 Amikacin Sulfate (Amikacin Iv Per Pharmacy) AMIKACIN PER PHARMACY NOTE XX ; Start 02/11/19 at 12:30 Amikacin Sulfate 300 mg/Sodium Chloride 101.2 ml @ 102 mls/hr AFTER DIALYSIS IVPB ; Start 02/11/19 at 14:30 Epoetin Indra-epbx (Retacrit (Esrd)) 8,000 unit TuThSa@1700 SC Last administered on 02/11/19at 18:33; Admin Dose 8,000 UNIT; Start 02/11/19 at 18:09 TROY ANTOINE Feb 12, 2019 18:12
[2019-02-12] MEDS: ATORVASTATIN 20 MG TAB PO SCH (22:24)
[2019-02-13] MEDS: traMADol 50 MG TAB PO SCH ×5 (01:59→20:00)
[2019-02-13 02:00] VITALS: BP 140/62; PULSE 67; RESP 17
[2019-02-13] MEDS: LEVOTHYROXINE 100 MCG TAB PO SCH (05:59)
[2019-02-13 08:00] VITALS: BP 147/60; PULSE 69; RESP 18
[2019-02-13] MEDS: INSULIN ASPART [NOVOLOG] 3 ML PEN SC SCH ×4 (08:00→22:00)
[2019-02-13] MEDS: PANTOPRAZOLE (EC) 40 MG TAB PO SCH (08:25)
[2019-02-13] MEDS: METOCLOPRAMIDE 5 MG TAB PO SCH ×3 (08:25→17:06)
[2019-02-13] MEDS: MULTIVIT/CA CARB/B CMPLX/FA TAB PO SCH (08:25)
[2019-02-13] MEDS: COLLAGENASE 5 GM (UD JAR) TOP SCH (08:25)
[2019-02-13] MEDS: MEGESTROL (40 MG/ML) 10ML CUP PO SCH ×2 (08:25→08:48)
[2019-02-13] MEDS: ASCORBIC ACID 500 MG TAB PO SCH (08:27)
[2019-02-13] MEDS: FOLIC ACID 1 MG TAB PO SCH (08:27)
[2019-02-13] MEDS: ZINC SULFATE 220 MG CAP PO SCH (08:27)
[2019-02-13] MEDS: DOCUSATE SODIUM 100 MG CAP PO SCH ×2 (08:27→21:59)
[2019-02-13] MEDS: ZYVOX 600 MG TAB PO SCH ×2 (08:27→21:59)
[2019-02-13] MEDS: CITALOPRAM 20 MG TAB PO SCH (08:27)
[2019-02-13] MEDS: MEROPENEM 500MG/50 ML (PMX) 50 ML IVPB SCH ×2 (08:28→21:59)
[2019-02-13] MEDS: SODIUM HYPOCHLORITE (1/40) 1 LITER BTL IRR SCH (08:28)
[2019-02-13] MEDS: POLYETHYLENE GLYCOL 17 GM PACKET PO SCH (08:29)
[2019-02-13] MEDS: MUPIROCIN 2% 22 GM OINT TOP SCH ×2 (08:29→22:02)
[2019-02-13] MEDS: PREDNISOLONE ACET 1% 5 ML OPH RIGHT EYE SCH ×2 (08:29→22:02)
[2019-02-13] MEDS: METOPROLOL 50 MG TAB PO SCH ×2 (08:32→22:00)
[2019-02-13] MEDS: AMIODARONE 200 MG TAB PO SCH (08:32)
[2019-02-13] MEDS: HEPARIN 5,000 UNIT/1 ML VIAL SC SCH ×2 (08:33→22:04)
[2019-02-13] MEDS: BALSAM PERU/CASTOR OIL 60 GM TUBE TOP SCH ×2 (08:35→22:02)
[2019-02-13] MEDS: morphine 2 MG INJ IV PRN ×3 (10:39→22:15)
--- NOTE | 2019-02-13 13:19 | PN ---
Date/Time of Note Date/Time of Note DATE: 02/13/19 TIME: 13:18 Assessment/Plan VTE Prophylaxis Risk score (from Ns)>0 risk: 7 SCD applied (from Ns): Yes Pharmacological prophylaxis: LMWH Lines/Catheters IV Catheter Type (from [facility]): PICC Line Central line still needed: Yes Urinary Cath still in place: No Assessment/Plan Hospital Course -Sacral and bilateral ischial infected wounds. Status post sacrum and right ischial debridement 01/29/19. Dr. Almanza is following in general surgery consultation. Continue antibiotics per ID. Dr. Guevara is following in inf ection disease consultation. -HCAP with Left lower lobe infiltrate -Abdominal pain. Status post EGD with notion of gastritis. Continue PPI. Status post a colonoscopy with notion of hemorrhoids. -Moderate bilateral pleural effusion -Hemodialysis dependent end-stage renal disease. Continue on hemodialysis. Dr. Mcdaniel is following from nephrology standpoint. -Diabetes mellitus type 2. Continue Levemir and NovoLog per mild algorithm sliding scale. -Hypothyroidism, continue levothyroxine -Hypertension. -Hyperlipidemia, continue statin -Anemia -MRSA of nares colonization. Contact isolation. -Right eye blindness. Result Diagram: 02/13/19 0530 02/13/19 0530 Results 24hrs Laboratory Tests Test 02/12/19 17:38 02/12/19 22:36 02/13/19 05:30 02/13/19 07:59 Bedside Glucose 131 107 113 White Blood Count 9.1 # Red Blood Count 2.69 L Hemoglobin 7.8 L Hematocrit 26.0 L Mean Corpuscular Volume 96.7 Mean Corpuscular 29.0 Hemoglobin Mean Corpuscular 30.0 L Hemoglobin Concent Red Cell Distribution 16.6 H Width Platelet Count 150 Mean Platelet Volume 8.7 Immature Granulocytes % 0.400 Neutrophils % 81.1 H Lymphocytes % 8.8 L Monocytes % 9.1 Eosinophils % 0.3 Basophils % 0.3 Nucleated Red Blood 0.0 Cells % Immature Granulocytes # 0.040 H Neutrophils # 7.4 Lymphocytes # 0.8 Monocytes # 0.8 Eosinophils # 0.0 Basophils # 0.0 Nucleated Red Blood 0.0 Cells # Sodium Level 135 Potassium Level 3.8 Chloride Level 101 Carbon Dioxide Level 27 Anion Gap 7 Blood Urea Nitrogen 13 Creatinine 1.94 H Est Glomerular Filtrat 26 L Rate mL/min Glucose Level 114 Calcium Level 8.3 L Test 02/13/19 12:10 Bedside Glucose 123 Subjective 24 Hr Interval Summary Free Text/Dictation Patient has no complaints Exam/Review of Systems Exam Vitals Vital Signs Date Temp Pulse Resp B/P (MAP) Pulse Ox O2 O2 Flow FiO2 Time Delivery Rate 02/13/19 98.0 69 18 147/60 98 Room Air 08:00 (89) 02/13/19 2.0 06:13 Intake and Output 02/12/19 02/12/19 02/13/19 1515:00 23:00 07:00 IntakeIntake Total 290 ml 50 ml 452 ml OutputOutput Total 2240 ml BalanceBalance 290 ml -2190 ml 452 ml Constitutional: well developed Head: normocephalic, atraumatic Neck: supple Respiratory: clear to auscultation Cardiovascular: regular rate and rhythm Gastrointestinal: soft, non-tender Extremities: normal pulses Results Results 24hrs Laboratory Tests Test 02/12/19 17:38 02/12/19 22:36 02/13/19 05:30 02/13/19 07:59 Bedside Glucose 131 107 113 White Blood Count 9.1 # Red Blood Count 2.69 L Hemoglobin 7.8 L Hematocrit 26.0 L Mean Corpuscular Volume 96.7 Mean Corpuscular 29.0 Hemoglobin Mean Corpuscular 30.0 L Hemoglobin Concent Red Cell Distribution 16.6 H Width Platelet Count 150 Mean Platelet Volume 8.7 Immature Granulocytes % 0.400 Neutrophils % 81.1 H Lymphocytes % 8.8 L Monocytes % 9.1 Eosinophils % 0.3 Basophils % 0.3 Nucleated Red Blood 0.0 Cells % Immature Granulocytes # 0.040 H Neutrophils # 7.4 Lymphocytes # 0.8 Monocytes # 0.8 Eosinophils # 0.0 Basophils # 0.0 Nucleated Red Blood 0.0 Cells # Sodium Level 135 Potassium Level 3.8 Chloride Level 101 Carbon Dioxide Level 27 Anion Gap 7 Blood Urea Nitrogen 13 Creatinine 1.94 H Est Glomerular Filtrat 26 L Rate mL/min Glucose Level 114 Calcium Level 8.3 L Test 02/13/19 12:10 Bedside Glucose 123 Medications Medication Current Medications Amiodarone HCl (Cordarone) 200 mg DAILY PO Last administered on 02/13/19at 08:32; Admin Dose 200 MG; Start 01/27/19 at 09:00 Ascorbic Acid (Vitamin C) 500 mg DAILY PO Last administered on 02/13/19 08:27; Admin Dose 500 MG; Start 01/27/19 at 09:00 Atorvastatin Calcium (Lipitor) 20 mg QHS PO Last administered on 02/12/19 22:24; Admin Dose 20 MG; Start 01/26/19 at 21:00 Bisacodyl (Dulcolax) 10 mg Q24H PRN PO CONSTIPATION; Start 01/26/19 at 20:00 Citalopram Hydrobromide (Celexa) 20 mg DAILY PO Last administered on 02/13/19 08:27; Admin Dose 20 MG; Start 01/27/19 at 09:00 Docusate Sodium (Colace) 100 mg BID PO Last administered on 02/13/19 08:27; Admin Dose 100 MG; Start 01/26/19 at 21:00 Folic Acid (Folic Acid) 1 mg DAILY PO Last administered on 02/13/19 08:27; Ad min Dose 1 MG; Start 01/27/19 at 09:00 Levothyroxine Sodium (Synthroid) 100 mcg BEFORE BREAKFAST PO Last administered on 02/13/19 05:59; Admin Dose 100 MCG; Start 01/27/19 at 07:00 Metoclopramide HCl (Reglan) 5 mg BEFORE MEALS PO Last administered on 02/13/19 12:08; Admin Dose 5 MG; Start 01/27/19 at 07:30 Multivit/Ca Carb/ B Cmplx/FA/Prenat (Wendi-Cathi) 1 tab DAILY PO Last administered on 02/13/19 08:25; Admin Dose 1 TAB; Start 01/27/19 at 09:00 Ondansetron HCl (Zofran Tab) 4 mg Q6H PRN PO NAUSEA AND/OR VOMITING Last administered on 01/30/19 10:43; Admin Dose 4 MG; Start 01/26/19 at 20:00 Pantoprazole (Protonix Tab) 40 mg DAILY PO Last administered on 02/13/19 08:25; Admin Dose 40 MG; Start 01/27/19 at 09:00 Polyethylene Glycol (Miralax) 17 gm DAILY PO Last administered on 02/09/19 08:40; Admin Dose 17 GM; Start 01/27/19 at 09:00 Prednisolone Acetate (Pred-Forte 1%) 1 drop BID RIGHT EYE Last administered on 02/13/19 08:29; Admin Dose 1 DROP; Start 01/26/19 at 21:00 Zinc Sulfate (Zinc Sulfate) 220 mg DAILY PO Last administered on 02/13/19 08:27; Admin Dose 220 MG; Start 01/27/19 at 09:00 Insulin Aspart (Novolog Insulin Pen) NOVOLOG *MODERATE* ALGORITHM WITH MEALS BEDTIME SC Last administered on 02/04/19 17:37; Admin Dose 2 UNIT; Start 01/26/19 at 21:00 Heparin Sodium (Porcine) (Heparin (5000 Units/1ml)) 5,000 unit BID SC Last administered on 02/13/19 08:33; Admin Dose 5,000 UNIT; Start 01/26/19 at 21:00 Morphine Sulfate (morphine) 2 mg Q4H PRN IV SEVERE PAIN LEVEL 7-10 Last administered on 02/13/19 10:39; Admin Dose 2 MG; Start 01/26/19 at 20:30 Miscellaneous Information 1 ea NOTE XX ; Start 01/26/19 at 23:45 Glucose (Glutose) 15 gm Q15M PRN PO DECREASED GLUCOSE; Start 01/26/19 at 23:45 Glucose (Glutose) 22.5 gm Q15M PRN PO DECREASED GLUCOSE; Start 01/26/19 at 23:45 Dextrose (D50w Syringe) 25 ml Q15M PRN IV DECREASED GLUCOSE Last administered on 01/28/19 07:50; Admin Dose 25 ML; Start 01/26/19 at 23:45 Dextrose (D50w Syringe) 50 ml Q15M PRN IV DECREASED GLUCOSE; Start 01/26/19 at 23:45 Glucagon (Glucagen) 1 mg Q15M PRN IM DECREASED GLUCOSE; Start 01/26/19 at 23:45 Glucose (Glutose) 15 gm Q15M PRN BUCCAL DECREASED GLUCOSE; Start 01/26/19 at 23:45 Alteplase, Recombinant (Cathflo (Activase)) 2 mg MAY REPEAT X1 PRN CATHETER IF CATHETER REMAINS OCCULUDED Last administered on 02/02/19 23:09; Admin Dose 2 MG; Start 01/27/19 at 07:00 Tramadol HCl (Ultram) 50 mg Q6H PO Last administered on 02/13/19 01:59; Admin Dose 50 MG; Start 01/27/19 at 08:00 Collagenase (Santyl) 1 applic DAILY TOP Last administered on 02/13/19 08:25; Admin Dose 1 APPLIC; Start 01/28/19 at 09:00 Sodium Hypochlorite (Dakin'S (Dilute )) 1 applic DAILY IRR Last a dministered on 02/13/19 08:28; Admin Dose 1 APPLIC; Start 01/28/19 at 09:00 Lorazepam (Ativan) 1 mg Q8H PRN PO ANXIETY; Start 01/27/19 at 22:30 Mupirocin (Bactroban) 1 applic BID TOP Last administered on 02/13/19 08:29; Admin Dose 1 APPLIC; Start 01/28/19 at 21:00 Megestrol Acetate (Megace Susp) 400 mg DAILY PO Last administered on 02/12/19 09:34; Admin Dose 400 MG; Start 01/30/19 at 14:30 Linezolid (Zyvox) 600 mg BID PO Last administered on 02/13/19 08:27; Admin Dose 600 MG; Start 01/31/19 at 16:00 Lactulose (Enulose) 20 gm Q6H PRN PO CONSTIPATION; Start 02/04/19 at 11:00 Hydralazine HCl (Apresoline) 100 mg Q8 PO Last administered on 02/13/19 05:59; Admin Dose 100 MG; Start 02/04/19 at 14:00 Metoprolol Tartrate (Lopressor) 50 mg BID PO Last administered on 02/13/19 08:32; Admin Dose 50 MG; Start 02/08/19 at 21:00 Ondansetron HCl (Zofran Inj) 4 mg Q6H PRN IV NAUSEA AND/OR VOMITING Last administered on 02/13/19 12:09; Admin Dose 4 MG; Start 02/09/19 at 12:30 Meropenem/Sodium Chloride 50 ml @ 100 mls/hr Q12 IVPB Last administered on 02/13/19 08:28; Admin Dose 100 MLS/HR; Start 02/10/19 at 21:00 Amikacin Sulfate (Amikacin Iv Per Pharmacy) AMIKACIN PER PHARMACY NOTE XX ; Start 02/11/19 at 12:30 Amikacin Sulfate 300 mg/Sodium Chloride 101.2 ml @ 102 mls/hr AFTER DIALYSIS IVPB Last administered on 02/13/19at 05:38; Admin Dose 102 MLS/HR; Start 02/11/19 at 14:30 Epoetin Indra-epbx (Retacrit (Esrd)) 8,000 unit TuThSa@1700 SC Last administered on 02/11/19at 18:33; Admin Dose 8,000 UNIT; Start 02/11/19 at 18:09 PATTI MCQUEEN Feb 13, 2019 13:19
--- NOTE | 2019-02-13 14:46 | CONS ---
Assessment/Plan Assessment/Plan Hospital Course (Demo Recall) All noted, no events over night Microbiology sacral wound culture grew Proteus, E. coli ESBL, VRE, and MRSA Antimicrobials: Amikacin, Zyvox Merrem PHYSICAL EXAMINATION: GENERAL: This is a fragile, wasted, well-developed, elderly woman, who is in no distress. HEENT: Head atraumatic, normocephalic. Sclerae anicteric. The patient has right eye blindness. Buccal mucosa pale, dry. NECK: Supple. CHEST: Rise symmetrical. Breath sounds diminished to bases. HEART: S1, S2. ABDOMEN: Obese, soft, bowel tones present. EXTREMITIES: Bilateral edema. SKIN: The patient has a large necrotic wounds on bilateral buttocks, left buttock and left posterior thigh area , also, necrotic wound. The patient has pressure sores on her left heel as well. Assessment: 1. Multiple necrotic infected wounds, s/p debridement 2. End-stage renal disease, hemodialysis dependent 3. Diabetes 4. Hypertension 5. MRSA colonization 6. HCAP 7. Gastroparesis 8. UTI==> Proteus Plan: Continue present care, abx, wound care per surgery, bladder scan/straight cath prn Consultation Date/Type/Reason Admit Date/Time Jan 26, 2019 at 17:32 Initial Consult Date 01/27/19 Type of Consult id Requesting Provider: ALEXUS VALENCIA MD Date/Time of Note DATE: 02/13/19 TIME: 14:45 Exam/Review of Systems Exam Vitals Vital Signs Date Temp Pulse Resp B/P (MAP) Pulse Ox O2 O2 Flow FiO2 Time Delivery Rate 02/13/19 98.0 69 18 147/60 98 Room Air 08:00 (89) 02/13/19 2.0 06:13 Intake and Output 02/12/19 02/12/19 02/13/19 1515:00 23:00 07:00 IntakeIntake Total 290 ml 50 ml 452 ml OutputOutput Total 2240 ml BalanceBalance 290 ml -2190 ml 452 ml Results Result Diagram: 02/13/19 0502/13/1930 Results 24hrs Laboratory Tests Test 02/12/19 17:38 02/12/19 22:36 02/13/19 05:30 02/13/19 07:59 Bedside Glucose 131 107 113 White Blood Count 9.1 # Red Blood Count 2.69 L Hemoglobin 7.8 L Hematocrit 26.0 L Mean Corpuscular Volume 96.7 Mean Corpuscular 29.0 Hemoglobin Mean Corpuscular 30.0 L Hemoglobin Concent Red Cell Distribution 16.6 H Width Platelet Count 150 Mean Platelet Volume 8.7 Immature Granulocytes % 0.400 Neutrophils % 81.1 H Lymphocytes % 8.8 L Monocytes % 9.1 Eosinophils % 0.3 Basophils % 0.3 Nucleated Red Blood 0.0 Cells % Immature Granulocytes # 0.040 H Neutrophils # 7.4 Lymphocytes # 0.8 Monocytes # 0.8 Eosinophils # 0.0 Basophils # 0.0 Nucleated Red Blood 0.0 Cells # Sodium Level 135 Potassium Level 3.8 Chloride Level 101 Carbon Dioxide Level 27 Anion Gap 7 Blood Urea Nitrogen 13 Creatinine 1.94 H Est Glomerular Filtrat 26 L Rate mL/min Glucose Level 114 Calcium Level 8.3 L Test 02/13/19 12:10 Bedside Glucose 123 Medications Medication Current Medications Amiodarone HCl (Cordarone) 200 mg DAILY PO Last administered on 02/13/19 08:32; Admin Dose 200 MG; Start 01/27/19 at 09:00 Ascorbic Acid (Vitamin C) 500 mg DAILY PO Last administered on 02/13/19 08:27; Admin Dose 500 MG; Start 01/27/19 at 09:00 Atorvastatin Calcium (Lipitor) 20 mg QHS PO Last administered on 02/12/19 22:24; Admin Dose 20 MG; Start 01/26/19 at 21:00 Bisacodyl (Dulcolax) 10 mg Q24H PRN PO CONSTIPATION; Start 01/26/19 at 20:00 Citalopram Hydrobromide (Celexa) 20 mg DAILY PO Last administered on 02/13/19 08:27; Admin Dose 20 MG; Start 01/27/19 at 09:00 Docusate Sodium (Colace) 100 mg BID PO Last administered on 02/13/19 08:27; Admin Dose 100 MG; Start 01/26/19 at 21:00 Folic Acid (Folic Acid) 1 mg DAILY PO Last administered on 02/13/19 08:27; Admin Dose 1 MG; Start 01/27/19 at 09:00 Levothyroxine Sodium (Synthroid) 100 mcg BEFORE BREAKFAST PO Last administered on 02/13/19 05:59; Admin Dose 100 MCG; Start 01/27/19 at 07:00 Metoclopramide HCl (Reglan) 5 mg BEFORE MEALS PO Last administered on 02/13/19 12:08; Admin Dose 5 MG; Start 01/27/19 at 07:30 Multivit/Ca Carb/ B Cmplx/FA/Prenat (Wendi-Cathi) 1 tab DAILY PO Last administered on 02/13/19 08:25; Admin Dose 1 TAB; Start 01/27/19 at 09:00 Ondansetron HCl (Zofran Tab) 4 mg Q6H PRN PO NAUSEA AND/OR VOMITING Last administered on 01/30/19 10:43; Admin Dose 4 MG; Start 01/26/19 at 20:00 Pantoprazole (Protonix Tab) 40 mg DAILY PO Last administered on 02/13/19 08:25; Admin Dose 40 MG; Start 01/27/19 at 09:00 Polyethylene Glycol (Miralax) 17 gm DAILY PO Last administered on 02/09/19 08:40; Admin Dose 17 GM; Start 01/27/19 at 09:00 Prednisolone Acetate (Pred-Forte 1%) 1 drop BID RIGHT EYE Last administered on 02/13/19 08:29; Admin Dose 1 DROP; Start 01/26/19 at 21:00 Zinc Sulfate (Zinc Sulfate) 220 mg DAILY PO Last administered on 02/13/19 0 8:27; Admin Dose 220 MG; Start 01/27/19 at 09:00 Insulin Aspart (Novolog Insulin Pen) NOVOLOG *MODERATE* ALGORITHM WITH MEALS BEDTIME SC Last administered on 02/04/19 17:37; Admin Dose 2 UNIT; Start 01/26/19 at 21:00 Heparin Sodium (Porcine) (Heparin (5000 Units/1ml)) 5,000 unit BID SC Last adm inistered on 02/13/19 08:33; Admin Dose 5,000 UNIT; Start 01/26/19 at 21:00 Morphine Sulfate (morphine) 2 mg Q4H PRN IV SEVERE PAIN LEVEL 7-10 Last administered on 02/13/19 10:39; Admin Dose 2 MG; Start 01/26/19 at 20:30 Miscellaneous Information 1 ea NOTE XX ; Start 01/26/19 at 23:45 Glucose (Glutose) 15 gm Q15M PRN PO DECREASED GLUCOSE; Start 01/26/19 at 23:45 Glucose (Glutose) 22.5 gm Q15M PRN PO DECREASED GLUCOSE; Start 01/26/19 at 23:45 Dextrose (D50w Syringe) 25 ml Q15M PRN IV DECREASED GLUCOSE Last administered on 01/28/19at 07:50; Admin Dose 25 ML; Start 01/26/19 at 23:45 Dextrose (D50w Syringe) 50 ml Q15M PRN IV DECREASED GLUCOSE; Start 01/26/19 at 23:45 Glucagon (Glucagen) 1 mg Q15M PRN IM DECREASED GLUCOSE; Start 01/26/19 at 23:45 Glucose (Glutose) 15 gm Q15M PRN BUCCAL DECREASED GLUCOSE; Start 01/26/19 at 23:45 Alteplase, Recombinant (Cathflo (Activase)) 2 mg MAY REPEAT X1 PRN CATHETER IF CATHETER REMAINS OCCULUDED Last administered on 02/02/19at 23:09; Admin Dose 2 MG ; Start 01/27/19 at 07:00 Tramadol HCl (Ultram) 50 mg Q6H PO Last administered on 02/13/19 01:59; Admin Dose 50 MG; Start 01/27/19 at 08:00 Collagenase (Santyl) 1 applic DAILY TOP Last administered on 02/13/19 08:25; Admin Dose 1 APPLIC; Start 01/28/19 at 09:00 Sodium Hypochlorite (Dakin'S (Dilute 140)) 1 applic DAILY IRR Last administered on 02/13/19 08:28; Admin Dose 1 APPLIC; Start 01/28/19 at 09:00 Lorazepam (Ativan) 1 mg Q8H PRN PO ANXIETY; Start 01/27/19 at 22:30 Mupirocin (Bactroban) 1 applic BID TOP Last administered on 02/13/19 08:29; Admin Dose 1 APPLIC; Start 01/28/19 at 21:00 Megestrol Acetate (Megace Susp) 400 mg DAILY PO Last administered on 02/12/19 09:34; Admin Dose 400 MG; Start 01/30/19 at 14:30 Linezolid (Zyvox) 600 mg BID PO Last administered on 02/13/19 08:27; Admin Dose 600 MG; Start 01/31/19 at 16:00 Lactulose (Enulose) 20 gm Q6H PRN PO CONSTIPATION; Start 02/04/19 at 11:00 Hydralazine HCl (Apresoline) 100 mg Q8 PO Last administered on 02/13/19at 05:59; Admin Dose 100 MG; Start 02/04/19 at 14:00 Metoprolol Tartrate (Lopressor) 50 mg BID PO Last administered on 02/13/19at 08:32; Admin Dose 50 MG; Start 02/08/19 at 21:00 Ondansetron HCl (Zofran Inj) 4 mg Q6H PRN IV NAUSEA AND/OR VOMITING Last administered on 02/13/19 12:09; Admin Dose 4 MG; Start 02/09/19 at 12:30 Meropenem/Sodium Chloride 50 ml @ 100 mls/hr Q12 IVPB Last administered on 02/13/19at 08:28; Admin Dose 100 MLS/HR; Start 02/10/19 at 21:00 Amikacin Sulfate (Amikacin Iv Per Pharmacy) AMIKACIN PER PHARMACY NOTE XX ; Start 02/11/19 at 12:30 Amikacin Sulfate 300 mg/Sodium Chloride 101.2 ml @ 102 mls/hr AFTER DIALYSIS IVPB Last administered on 02/13/19at 05:38; Admin Dose 102 MLS/HR; Start 02/11/19 at 14:30 Epoetin Indra-epbx (Retacrit (Esrd)) 8,000 unit TuThSa@1700 SC Last administered on 02/11/19at 18:33; Admin Dose 8,000 UNIT; Start 02/11/19 at 18:09 ALYX NAVARRO NP Feb 13, 2019 14:45
[2019-02-13 15:26] VITALS: BP 144/65; PULSE 63; RESP 18
--- NOTE | 2019-02-13 16:20 | CONS ---
Assessment/Plan Assessment/Plan Hospital Course (Demo Recall) IMPRESSION: 1. Preop evaluation. The patient to undergo EGD whose 2D echo I just read revealing EF lower limits of normal, approximately 50% with no significant contraindicated valvular lesions and negative troponin x1 since admit, patient is okay to proceed at a moderate cardiovascular risk. Now post-op s/p endoscopy and debridement of decub ulcer 2. Congestive heart failure, diastolic acute on chronic. 3. Hypertension. 4. Cardiac arrhythmia, on amiodarone, in sinus rhythm by EKG. 5. Hypothyroidism. 6. Diabetes mellitus. 7. Nausea and vomiting. 8. Generalized weakness. 9. Decubitus ulcers s/p debridement 10. Anemia. 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 12.CKD on HD Recc: -Tele -Contineu BB and hydralazine and continue to follow labile BP closely and consider further increase -continue statin -Continue abx's and f/u cx data -local wound care -HD for volume removal Consultation Date/Type/Reason Admit Date/Time Jan 26, 2019 at 17:32 Initial Consult Date 01/27/19 Type of Consult Cardiology Reason for Consultation CHF Requesting Provider: ALEXUS VALENCIA MD Date/Time of Note DATE: 02/13/19 TIME: 16:18 Exam/Review of Systems Vital Signs Vitals Vital Signs Date Temp Pulse Resp B/P (MAP) Pulse Ox O2 O2 Flow FiO2 Time Delivery Rate 02/13/19 98.4 63 18 144/65 99 Nasal 2.0 15:26 (91) Cannula Intake and Output 02/12/19 02/12/19 02/13/19 1515:00 23:00 07:00 IntakeIntake Total 290 ml 50 ml 452 ml OutputOutput Total 2240 ml BalanceBalance 290 ml -2190 ml 452 ml Exam Exam Review of Systems: CONSTITUTIONAL: No fevers, chills. PULMONARY: No sob CARDIOVASCULAR: No chest pain/palpitations GASTROINTESTINAL: No nausea/vomiting. GENITOURINARY: No hematuria/dysuria. MUSCULOSKELETAL: No myagias/arthalgias. PSYCHIATRIC: The patient denies depression. NEUROLOGIC: No weakness Constitutional: alert, oriented Psych: no complaints Head: normocephalic ENMT: mucosa pink and moist Neck: supple, jvd (9 cm water) Respiratory: diminished breath sounds Cardiovascular: regular rate and rhythm Gastrointestinal: soft, non-tender Musculoskeletal: muscle tone (njormal) Extremities: edema (none) Neurological: other (No focal deficits) Labs Result Diagram: 02/13/19 0530 02/13/19 0530 Results 24hrs Laboratory Tests Test 02/12/19 17:38 02/12/19 22:36 02/13/19 05:30 02/13/19 07:59 Bedside Glucose 131 107 113 White Blood Count 9.1 # Red Blood Count 2.69 L Hemoglobin 7.8 L Hematocrit 26.0 L Mean Corpuscular Volume 96.7 Mean Corpuscular 29.0 Hemoglobin Mean Corpuscular 30.0 L Hemoglobin Concent Red Cell Distribution 16.6 H Width Platelet Count 150 Mean Platelet Volume 8.7 Immature Granulocytes % 0.400 Neutrophils % 81.1 H Lymphocytes % 8.8 L Monocytes % 9.1 Eosinophils % 0.3 Basophils % 0.3 Nucleated Red Blood 0.0 Cells % Immature Granulocytes # 0.040 H Neutrophils # 7.4 Lymphocytes # 0.8 Monocytes # 0.8 Eosinophils # 0.0 Basophils # 0.0 Nucleated Red Blood 0.0 Cells # Sodium Level 135 Potassium Level 3.8 Chloride Level 101 Carbon Dioxide Level 27 Anion Gap 7 Blood Urea Nitrogen 13 Creatinine 1.94 H Est Glomerular Filtrat 26 L Rate mL/min Glucose Level 114 Calcium Level 8.3 L Test 02/13/19 12:10 Bedside Glucose 123 Medications Medications Current Medications Amiodarone HCl (Cordarone) 200 mg DAILY PO Last administered on 02/13/19at 08:32; Admin Dose 200 MG; Start 01/27/19 at 09:00 Ascorbic Acid (Vitamin C) 500 mg DAILY PO Last administered on 02/13/19at 08:27; Admin Dose 500 MG; Start 01/27/19 at 09:00 Atorvastatin Calcium (Lipitor) 20 mg QHS PO Last administered on 02/12/19at 22:24; Admin Dose 20 MG; Start 01/26/19 at 21:00 Bisacodyl (Dulcolax) 10 mg Q24H PRN PO CONSTIPATION; Start 01/26/19 at 20:00 Citalopram Hydrobromide (Celexa) 20 mg DAILY PO Last administered on 02/13/19at 08:27; Admin Dose 20 MG; Start 01/27/19 at 09:00 Docusate Sodium (Colace) 100 mg BID PO Last administered on 02/13/19 08:27; Admin Dose 100 MG; Start 01/26/19 at 21:00 Folic Acid (Folic Acid) 1 mg DAILY PO Last administered on 02/13/19 08:27; Admin Dose 1 MG; Start 01/27/19 at 09:00 Levothyroxine Sodium (Synthroid) 100 mcg BEFORE BREAKFAST PO Last administered on 02/13/19 05:59; Admin Dose 100 MCG; Start 01/27/19 at 07:00 Metoclopramide HCl (Reglan) 5 mg BEFORE MEALS PO Last administered on 02/13/19 12:08; Admin Dose 5 MG; Start 01/27/19 at 07:30 Multivit/Ca Carb/ B Cmplx/FA/Prenat (Wendi-Cathi) 1 tab DAILY PO Last administered on 02/13/19 08:25; Admin Dose 1 TAB; Start 01/27/19 at 09:00 Ondansetron HCl (Zofran Tab) 4 mg Q6H PRN PO NAUSEA AND/OR VOMITING Last administered on 01/30/19 10:43; Admin Dose 4 MG; Start 01/26/19 at 20:00 Pantoprazole (Protonix Tab) 40 mg DAILY PO Last administered on 02/13/19 08:25; Admin Dose 40 MG; Start 01/27/19 at 09:00 Polyethylene Glycol (Miralax) 17 gm DAILY PO Last administered on 02/09/19 08:40; Admin Dose 17 GM; Start 01/27/19 at 09:00 Prednisolone Acetate (Pred-Forte 1%) 1 drop BID RIGHT EYE Last administered on 02/13/19 08:29; Admin Dose 1 DROP; Start 01/26/19 at 21:00 Zinc Sulfate (Zinc Sulfate) 220 mg DAILY PO Last administered on 02/13/19 08:27; Admin Dose 220 MG; Start 01/27/19 at 09:00 Insulin Aspart (Novolog Insulin Pen) NOVOLOG *MODERATE* ALGORITHM WITH MEALS BEDTIME SC Last administered on 02/04/19 17:37; Admin Dose 2 UNIT; Start 01/26/19 at 21:00 Heparin Sodium (Porcine) (Heparin (5000 Units/1ml)) 5,000 unit BID SC Last administered on 02/13/19 08:33; Admin Dose 5,000 UNIT; Start 01/26/19 at 21:00 Morphine Sulfate (morphine) 2 mg Q4H PRN IV SEVERE PAIN LEVEL 7-10 Last administered on 02/13/19 15:02; Admin Dose 2 MG; Start 01/26/19 at 20:30 Miscellaneous Information 1 ea NOTE XX ; Start 01/26/19 at 23:45 Glucose (Glutose) 15 gm Q15M PRN PO DECREASED GLUCOSE; Start 01/26/19 at 23:45 Glucose (Glutose) 22.5 gm Q15M PRN PO DECREASED GLUCOSE; Start 01/26/19 at 23:45 Dextrose (D50w Syringe) 25 ml Q15M PRN IV DECREASED GLUCOSE Last administered on 01/28/19 07:50; Admin Dose 25 ML; Start 01/26/19 at 23:45 Dextrose (D50w Syringe) 50 ml Q15M PRN IV DECREASED GLUCOSE; Start 01/26/19 at 23:45 Glucagon (Glucagen) 1 mg Q15M PRN IM DECREASED GLUCOSE; Start 01/26/19 at 23:45 Glucose (Glutose) 15 gm Q15M PRN BUCCAL DECREASED GLUCOSE; Start 01/26/19 at 23:45 Alteplase, Recombinant (Cathflo (Activase)) 2 mg MAY REPEAT X1 PRN CATHETER IF CATHETER REMAINS OCCULUDED Last administered on 02/02/19 23:09; Admin Dose 2 MG; Start 01/27/19 at 07:00 Tramadol HCl (Ultram) 50 mg Q6H PO Last administered on 02/13/19 01:59; Admin Dose 50 MG; Start 01/27/19 at 08:00 Collagenase (Santyl) 1 applic DAILY TOP Last administered on 02/13/19 08:25; Admin Dose 1 APPLIC; Start 01/28/19 at 09:00 Sodium Hypochlorite (Dakin'S (Dilute )) 1 applic DAILY IRR Last administered on 02/13/19 08:28; Admin Dose 1 APPLIC; Start 01/28/19 at 09:00 Lorazepam (Ativan) 1 mg Q8H PRN PO ANXIETY; Start 01/27/19 at 22:30 Mupirocin (Bactroban) 1 applic BID TOP Last administered on 02/13/19 08:29; Admin Dose 1 APPLIC; Start 01/28/19 at 21:00 Megestrol Acetate (Megace Susp) 400 mg DAILY PO Last administered on 02/12/19 09:34; Admin Dose 400 MG; Start 01/30/19 at 14:30 Linezolid (Zyvox) 600 mg BID PO Last administered on 02/13/19 08:27; Admin Dose 600 MG; Start 01/31/19 at 16:00 Lactulose (Enulose) 20 gm Q6H PRN PO CONSTIPATION; Start 02/04/19 at 11:00 Hydralazine HCl (Apresoline) 100 mg Q8 PO Last administered on 02/13/19 15:03; Admin Dose 100 MG; Start 02/04/19 at 14:00 Metoprolol Tartrate (Lopressor) 50 mg BID PO Last administered on 02/13/19 08:32; Admin Dose 50 MG; Start 02/08/19 at 21:00 Ondansetron HCl (Zofran Inj) 4 mg Q6H PRN IV NAUSEA AND/OR VOMITING Last administered on 02/13/19 12:09; Admin Dose 4 MG; Start 02/09/19 at 12:30 Meropenem/Sodium Chloride 50 ml @ 100 mls/hr Q12 IVPB Last administered on 02/13/19 08:28; Admin Dose 100 MLS/HR; Start 02/10/19 at 21:00 Amikacin Sulfate (Amikacin Iv Per Pharmacy) AMIKACIN PER PHARMACY NOTE XX ; Start 02/11/19 at 12:30 Amikacin Sulfate 300 mg/Sodium Chloride 101.2 ml @ 102 mls/hr AFTER DIALYSIS IVPB Last administered on 02/13/19 05:38; Admin Dose 102 MLS/HR; Start 02/11/19 at 14:30 Epoetin Indra-epbx (Retacrit (Esrd)) 8,000 unit TuThSa@1700 SC Last administered on 02/11/19 18:33; Admin Dose 8,000 UNIT; Start 02/11/19 at 18:09 ALIREZA LEE Feb 13, 2019 16:20
[2019-02-13] MEDS ORDERED: EPOETIN ALFA-EPBX (ESRD) 4,000 UNIT/ML VIAL SC SCH (17:00)
[2019-02-13] MEDS: EPOETIN ALFA-EPBX (ESRD) 4,000 UNIT/ML VIAL SC SCH (17:07)
--- NOTE | 2019-02-13 19:53 | PN ---
Date/Time of Note Date/Time of Note DATE: 02/13/19 TIME: 19:51 Assessment/Plan Lines/Catheters IV Catheter Type (from Nrs): PICC Line [place] in Place (from Nrs): No Assessment/Plan Chief Complaint/Hosp Course 1. Sacral and bilateral ischial wounds: wnd cx noted; status post sacrum and right ischial debridement 01/29/19 -Further debridement as needed -Continue local care> Can follow with Dr. Almanza as outpatient in wound clinic. -frequent turning and off-loading -low air loss mattress -vitamin c -short term zinc -optimize nutrition 2. Abdominal pain and generalized weakness: Status post EGD: Gastritis; no acute abd pain -further w/u per med team -PPI 3. ESRD -limit nephrotoxins -HD per renal -renally dose meds 4. Anemia: -monitor and transfuse as needed 5. Diabetes with episodes of hypoglycemia; no hypoglycemia episodes-sugar control much improved -glucose management 6. Hypothyroidism -med mgt 7. Pleural effusions: Persistent -Pulmonary consult -fluid management 8. Leukocytosis: normalized -As above Thank you. Patient seen and examined in collaboration with Dr. Simón Almanaz. Subjective 24 Hr Interval Summary WBC normalized. + bowel function. No fevers, chills, sob, congested cough, cp, palpitations, hoffman, dizziness, n/v/d/dysuria. Exam/Review of Systems Vital Signs Vitals Vital Signs Date Temp Pulse Resp B/P (MAP) Pulse Ox O2 O2 Flow FiO2 Time Delivery Rate 02/13/19 3.0 17:03 02/13/19 98.4 63 18 144/65 99 Nasal 15:26 (91) Cannula Intake and Output 02/12/19 02/12/19 02/13/19 1515:00 23:00 07:00 IntakeIntake Total 290 ml 50 ml 452 ml OutputOutput Total 2240 ml BalanceBalance 290 ml -2190 ml 452 ml Exam Free Text/Dictation Constitutional: alert, oriented, obese Psych: normal mood Head: normocephalic, atraumatic Eyes: nl conjunctiva, EOMI, nl lids, nl sclera ENMT: nl external ears & nose, nl lips & teeth, mucosa pink and moist Neck: supple, non-tender; No jvd Respiratory: normal air movement; No congested cough, No labored breathing Cardiovascular: regular rate and rhythm, nl pulses; No edema Gastrointestinal: soft, non-tender, distended Genitourinary - Female: nl external genitalia Musculoskeletal: nl extremities to inspection, nl gait and stance Extremities: normal pulses Neurological: nl mental status, nl speech, nl strength Skin: other (sacral: Packed, no odor, minimal periwound erythema; right ischium: Packed, improved odor; left ischium: unstageable); No rash or lesions Results Result Diagram: 02/13/19 0530 02/13/19 0530 ARSLAN COATES NP Feb 13, 2019 19:53
[2019-02-13 20:00] VITALS: BP 132/62; PULSE 66; RESP 18
[2019-02-13] MEDS: ATORVASTATIN 20 MG TAB PO SCH (22:00)
[2019-02-14 02:00] VITALS: BP 128/62; PULSE 64; RESP 18
[2019-02-14] MEDS: traMADol 50 MG TAB PO SCH ×4 (02:00→21:25)
[2019-02-14] MEDS: morphine 2 MG INJ IV PRN ×2 (02:19→08:12)
[2019-02-14] MEDS: LEVOTHYROXINE 100 MCG TAB PO SCH (05:50)
[2019-02-14] MEDS: METOCLOPRAMIDE 5 MG TAB PO SCH ×3 (07:30→17:30)
[2019-02-14] MEDS: INSULIN ASPART [NOVOLOG] 3 ML PEN SC SCH ×4 (08:00→21:00)
[2019-02-14 08:50] VITALS: BP 136/63; PULSE 68; RESP 17
[2019-02-14] MEDS: MEGESTROL (40 MG/ML) 10ML CUP PO SCH ×2 (09:00→09:15)
[2019-02-14] MEDS: POLYETHYLENE GLYCOL 17 GM PACKET PO SCH ×2 (09:00→09:16)
[2019-02-14] MEDS: CITALOPRAM 20 MG TAB PO SCH (09:14)
[2019-02-14] MEDS: ZYVOX 600 MG TAB PO SCH (09:14)
[2019-02-14] MEDS: FOLIC ACID 1 MG TAB PO SCH (09:14)
[2019-02-14] MEDS: ZINC SULFATE 220 MG CAP PO SCH (09:14)
[2019-02-14] MEDS: MULTIVIT/CA CARB/B CMPLX/FA TAB PO SCH (09:14)
[2019-02-14] MEDS: DOCUSATE SODIUM 100 MG CAP PO SCH ×2 (09:14→21:25)
[2019-02-14] MEDS: PANTOPRAZOLE (EC) 40 MG TAB PO SCH (09:15)
[2019-02-14] MEDS: COLLAGENASE 5 GM (UD JAR) TOP SCH (09:15)
[2019-02-14] MEDS: AMLODIPINE 2.5 MG TAB PO SCH (09:15)
[2019-02-14] MEDS: METOPROLOL 50 MG TAB PO SCH ×2 (09:15→21:26)
[2019-02-14] MEDS: ASCORBIC ACID 500 MG TAB PO SCH (09:15)
[2019-02-14] MEDS: AMIODARONE 200 MG TAB PO SCH (09:15)
[2019-02-14] MEDS: HEPARIN 5,000 UNIT/1 ML VIAL SC SCH ×2 (09:16→21:27)
[2019-02-14] MEDS: MEROPENEM 500MG/50 ML (PMX) 50 ML IVPB SCH ×2 (09:17→21:31)
[2019-02-14] MEDS: BALSAM PERU/CASTOR OIL 60 GM TUBE TOP SCH ×2 (09:27→21:32)
[2019-02-14] MEDS: SODIUM HYPOCHLORITE (1/40) 1 LITER BTL IRR SCH ×2 (09:28→21:31)
[2019-02-14] MEDS: PREDNISOLONE ACET 1% 5 ML OPH RIGHT EYE SCH ×2 (09:28→21:31)
[2019-02-14] MEDS: MUPIROCIN 2% 22 GM OINT TOP SCH ×2 (09:28→21:31)
--- NOTE | 2019-02-14 13:10 | PN ---
Date/Time of Note Date/Time of Note DATE: 02/14/19 TIME: 13:09 Assessment/Plan VTE Prophylaxis Risk score (from Ns)>0 risk: 11 SCD applied (from Ns): Yes Pharmacological prophylaxis: LMWH Lines/Catheters IV Catheter Type (from Nrsg): PICC Line Central line still needed: Yes Urinary Cath still in place: No Assessment/Plan Hospital Course -Sacral and bilateral ischial infected wounds. Status post sacrum and right ischial debridement 01/29/19. Dr. Almanza is following in general surgery consultation. Continue antibiotics per ID. Dr. Guevara is following in in fection disease consultation. -HCAP with Left lower lobe infiltrate -Abdominal pain. Status post EGD with notion of gastritis. Continue PPI. Status post a colonoscopy with notion of hemorrhoids. -Moderate bilateral pleural effusion -Hemodialysis dependent end-stage renal disease. Continue on hemodialysis. Dr. Mcdaniel is following from nephrology standpoint. -Diabetes mellitus type 2. Continue Levemir and NovoLog per mild algorithm sliding scale. -Hypothyroidism, continue levothyroxine -Hypertension. -Hyperlipidemia, continue statin -Anemia -MRSA of nares colonization. Contact isolation. -Right eye blindness. Result Diagram: 02/13/19 0530 02/13/19 0530 Results 24hrs Laboratory Tests Test 02/13/19 17:05 02/13/19 21:59 02/14/19 08:21 02/14/19 12:25 Bedside Glucose 127 132 105 115 Subjective 24 Hr Interval Summary Free Text/Dictation Patient complains of pleuritic chest pain Exam/Review of Systems Exam Vitals Vital Signs Date Temp Pulse Resp B/P (MAP) Pulse Ox O2 O2 Flow FiO2 Time Delivery Rate 02/14/19 98.4 68 17 136/63 97 Room Air 08:50 (87) 02/14/19 2.0 00:05 Intake and Output 02/13/19 02/13/19 02/14/19 1515:00 23:00 07:00 IntakeIntake Total 250 ml 370 ml BalanceBalance 250 ml 370 ml Constitutional: well developed Head: normocephalic, atraumatic Neck: supple Respiratory: clear to auscultation Cardiovascular: regular rate and rhythm Gastrointestinal: soft, non-tender Extremities: normal pulses Results Results 24hrs Laboratory Tests Test 02/13/19 17:05 02/13/19 21:59 02/14/19 08:21 02/14/19 12:25 Bedside Glucose 127 132 105 115 Medications Medication Current Medications Amiodarone HCl (Cordarone) 200 mg DAILY PO Last administered on 02/14/19 09:15; Admin Dose 200 MG; Start 01/27/19 at 09:00 Ascorbic Acid (Vitamin C) 500 mg DAILY PO Last administered on 02/14/19 09:15; Admin Dose 500 MG; Start 01/27/19 at 09:00 Atorvastatin Calcium (Lipitor) 20 mg QHS PO Last administered on 02/13/19 22:00; Admin Dose 20 MG; Start 01/26/19 at 21:00 Bisacodyl (Dulcolax) 10 mg Q24H PRN PO CONSTIPATION; Start 01/26/19 at 20:00 Citalopram Hydrobromide (Celexa) 20 mg DAILY PO Last administered on 02/14/19 09:14; Admin Dose 20 MG; Start 01/27/19 at 09:00 Docusate Sodium (Colace) 100 mg BID PO Last administered on 02/14/19 09:14; Admin Dose 100 MG; Start 01/26/19 at 21:00 Folic Acid (Folic Acid) 1 mg DAILY PO Last administered on 02/14/19 09:14; Admin Dose 1 MG; Start 01/27/19 at 09:00 Levothyroxine Sodium (Synthroid) 100 mcg BEFORE BREAKFAST PO Last administered on 02/14/19 05:50; Admin Dose 100 MCG; Start 01/27/19 at 07:00 Metoclopramide HCl (Reglan) 5 mg BEFORE MEALS PO Last administered on 02/13/19 17:06; Admin Dose 5 MG; Start 01/27/19 at 07:30 Multivit/Ca Carb/ B Cmplx/FA/Prenat (Wendi-Cathi) 1 tab DAILY PO Last administered on 02/14/19 09:14; Admin Dose 1 TAB; Start 01/27/19 at 09:00 Ondansetron HCl (Zofran Tab) 4 mg Q6H PRN PO NAUSEA AND/OR VOMITING Last administered on 01/30/19 10:43; Admin Dose 4 MG; Start 01/26/19 at 20:00 Pantoprazole (Protonix Tab) 40 mg DAILY PO Last administered on 02/14/19 09:15; Admin Dose 40 MG; Start 01/27/19 at 09:00 Polyethylene Glycol (Miralax) 17 gm DAILY PO Last administered on 02/09/19 08:40; Admin Dose 17 GM; Start 01/27/19 at 09:00 Prednisolone Acetate (Pred-Forte 1%) 1 drop BID RIGHT EYE Last administered on 02/14/19 09:28; Admin Dose 1 DROP; Start 01/26/19 at 21:00 Zinc Sulfate (Zinc Sulfate) 220 mg DAILY PO Last administered on 02/14/19 09:14; Admin Dose 220 MG; Start 01/27/19 at 09:00 Insulin Aspart (Novolog Insulin Pen) NOVOLOG *MODERATE* ALGORITHM WITH MEALS BEDTIME SC Last administered on 02/04/19 17:37; Admin Dose 2 UNIT; Start 01/26/19 at 21:00 Heparin Sodium (Porcine) (Heparin (5000 Units/1ml)) 5,000 unit BID SC Last administered on 02/14/19 09:16; Admin Dose 5,000 UNIT; Start 01/26/19 at 21:00 Morphine Sulfate (morphine) 2 mg Q4H PRN IV SEVERE PAIN LEVEL 7-10 Last administered on 02/14/19 08:12; Admin Dose 2 MG; Start 01/26/19 at 20:30 Miscellaneous Information 1 ea NOTE XX ; Start 01/26/19 at 23:45 Glucose (Glutose) 15 gm Q15M PRN PO DECREASED GLUCOSE; Start 01/26/19 at 23:45 Glucose (Glutose) 22.5 gm Q15M PRN PO DECREASED GLUCOSE; Start 01/26/19 at 23:45 Dextrose (D50w Syringe) 25 ml Q15M PRN IV DECREASED GLUCOSE Last administered on 01/28/19 07:50; Admin Dose 25 ML; Start 01/26/19 at 23:45 Dextrose (D50w Syringe) 50 ml Q15M PRN IV DECREASED GLUCOSE; Start 01/26/19 at 23:45 Glucagon (Glucagen) 1 mg Q15M PRN IM DECREASED GLUCOSE; Start 01/26/19 at 23:45 Glucose (Glutose) 15 gm Q15M PRN BUCCAL DECREASED GLUCOSE; Start 01/26/19 at 23:45 Alteplase, Recombinant (Cathflo (Activase)) 2 mg MAY REPEAT X1 PRN CATHETER IF CATHETER REMAINS OCCULUDED Last administered on 02/02/19 23:09; Admin Dose 2 MG; Start 01/27/19 at 07:00 Tramadol HCl (Ultram) 50 mg Q6H PO Last administered on 02/13/19 01:59; Admin Dose 50 MG; Start 01/27/19 at 08:00 Collagenase (Santyl) 1 applic DAILY TOP Last administered on 02/14/19 09:15; Admin Dose 1 APPLIC; Start 01/28/19 at 09:00 Lorazepam (Ativan) 1 mg Q8H PRN PO ANXIETY; Start 01/27/19 at 22:30 Mupirocin (Bactroban) 1 applic BID TOP Last administered on 02/14/19 09:28; Admin Dose 1 APPLIC; Start 01/28/19 at 21:00 Megestrol Acetate (Megace Susp) 400 mg DAILY PO Last administered on 02/12/19 09:34; Admin Dose 400 MG; Start 01/30/19 at 14:30 Linezolid (Zyvox) 600 mg BID PO Last administered on 02/14/19 09:14; Admin Dose 600 MG; Start 01/31/19 at 16:00 Lactulose (Enulose) 20 gm Q6H PRN PO CONSTIPATION; Start 02/04/19 at 11:00 Hydralazine HCl (Apresoline) 100 mg Q8 PO Last administered on 02/14/19 05:48; Admin Dose 100 MG; Start 02/04/19 at 14:00 Metoprolol Tartrate (Lopressor) 50 mg BID PO Last administered on 02/14/19 09:15; Admin Dose 50 MG; Start 02/08/19 at 21:00 Ondansetron HCl (Zofran Inj) 4 mg Q6H PRN IV NAUSEA AND/OR VOMITING Last administered on 02/13/19 12:09; Admin Dose 4 MG; Start 02/09/19 at 12:30 Meropenem/Sodium Chloride 50 ml @ 100 mls/hr Q12 IVPB Last administered on 02/14/19 09:17; Admin Dose 100 MLS/HR; Start 02/10/19 at 21:00 Amikacin Sulfate (Amikacin Iv Per Pharmacy) AMIKACIN PER PHARMACY NOTE XX ; Start 02/11/19 at 12:30 Amikacin Sulfate 300 mg/Sodium Chloride 101.2 ml @ 102 mls/hr AFTER DIALYSIS IVPB Last administered on 02/13/19at 05:38; Admin Dose 102 MLS/HR; Start 02/11/19 at 14:30 Epoetin Indra-epbx (Retacrit (Esrd)) 8,000 unit TuThSa@1700 SC Last administered on 02/13/19at 17:07; Admin Dose 8,000 UNIT; Start 02/11/19 at 18:09 Amlodipine Besylate (Norvasc) 2.5 mg DAILY PO Last administered on 02/14/19 09:15; Admin Dose 2.5 MG; Start 02/14/19 at 09:00 Sodium Hypochlorite (Dakin'S (Dilute )) 1 applic Q12 IRR Last administered on 02/14/19at 09:28; Admin Dose 1 APPLIC; Start 02/14/19 at 09:00 PATTI MCQUEEN Feb 14, 2019 13:10
--- NOTE | 2019-02-14 13:25 | CONS ---
Assessment/Plan Assessment/Plan Hospital Course (Demo Recall) All noted, no acute changes, looks comfortable Microbiology sacral wound culture grew Proteus, E. coli ESBL, VRE, and MRSA Antimicrobials: Amikacin, Zyvox Merrem PHYSICAL EXAMINATION: GENERAL: This is a fragile, wasted, well-developed, elderly woman, who is in no distress. HEENT: Head atraumatic, normocephalic. Sclerae anicteric. The patient has right eye blindness. Buccal mucosa pale, dry. NECK: Supple. CHEST: Rise symmetrical. Breath sounds diminished to bases. HEART: S1, S2. ABDOMEN: Obese, soft, bowel tones present. EXTREMITIES: Bilateral edema. SKIN: The patient has a large necrotic wounds on bilateral buttocks, left buttock and left posterior thigh area , also, necrotic wound. The patient has pressure sores on her left heel as well. Assessment: 1. Multiple necrotic infected wounds, s/p debridement 2. End-stage renal disease, hemodialysis dependent 3. Diabetes 4. Hypertension 5. MRSA colonization 6. HCAP 7. Gastroparesis 8. UTI==> Proteus Plan: Stable, change Zyvox to Daptomycin, continue wound care per surgery Consultation Date/Type/Reason Admit Date/Time Jan 26, 2019 at 17:32 Initial Consult Date 01/27/19 Type of Consult id Requesting Provider: ALEXUS VALENCIA MD Date/Time of Note DATE: 02/14/19 TIME: 13:24 Exam/Review of Systems Exam Vitals Vital Signs Date Temp Pulse Resp B/P (MAP) Pulse Ox O2 O2 Flow FiO2 Time Delivery Rate 02/14/19 98.4 68 17 136/63 97 Room Air 08:50 (87) 02/14/19 2.0 00:05 Intake and Output 02/13/19 02/13/19 02/14/19 1515:00 23:00 07:00 IntakeIntake Total 250 ml 370 ml BalanceBalance 250 ml 370 ml Results Result Diagram: 02/13/19 0530 02/13/19 0530 Results 24hrs Laboratory Tests Test 02/13/19 17:05 02/13/19 21:59 02/14/19 08:21 02/14/19 12:25 Bedside Glucose 127 132 105 115 Medications Medication Current Medications Amiodarone HCl (Cordarone) 200 mg DAILY PO Last administered on 02/14/19 09:15; Admin Dose 200 MG; Start 01/27/19 at 09:00 Ascorbic Acid (Vitamin C) 500 mg DAILY PO Last administered on 02/14/19 09:15; Admin Dose 500 MG; Start 01/27/19 at 09:00 Atorvastatin Calcium (Lipitor) 20 mg QHS PO Last administered on 02/13/19 22:00; Admin Dose 20 MG; Start 01/26/19 at 21:00 Bisacodyl (Dulcolax) 10 mg Q24H PRN PO CONSTIPATION; Start 01/26/19 at 20:00 Citalopram Hydrobromide (Celexa) 20 mg DAILY PO Last administered on 02/14/19 09:14; Admin Dose 20 MG; Start 01/27/19 at 09:00 Docusate Sodium (Colace) 100 mg BID PO Last administered on 02/14/19 09:14; Admin Dose 100 MG; Start 01/26/19 at 21:00 Folic Acid (Folic Acid) 1 mg DAILY PO Last administered on 02/14/19 09:14; Admin Dose 1 MG; Start 01/27/19 at 09:00 Levothyroxine Sodium (Synthroid) 100 mcg BEFORE BREAKFAST PO Last administered on 02/14/19 05:50; Admin Dose 100 MCG; Start 01/27/19 at 07:00 Metoclopramide HCl (Reglan) 5 mg BEFORE MEALS PO Last administered on 02/13/19 17:06; Admin Dose 5 MG; Start 01/27/19 at 07:30 Multivit/Ca Carb/ B Cmplx/FA/Prenat (Wendi-Cathi) 1 tab DAILY PO Last administered on 02/14/19 09:14; Admin Dose 1 TAB; Start 01/27/19 at 09:00 Ondansetron HCl (Zofran Tab) 4 mg Q6H PRN PO NAUSEA AND/OR VOMITING Last administered on 01/30/19 10:43; Admin Dose 4 MG; Start 01/26/19 at 20:00 Pantoprazole (Protonix Tab) 40 mg DAILY PO Last administered on 02/14/19 09:15; Admin Dose 40 MG; Start 01/27/19 at 09:00 Polyethylene Glycol (Miralax) 17 gm DAILY PO Last administered on 02/09/19 08:40; Admin Dose 17 GM; Start 01/27/19 at 09:00 Prednisolone Acetate (Pred-Forte 1%) 1 drop BID RIGHT EYE Last administered on 02/14/19 09:28; Admin Dose 1 DROP; Start 01/26/19 at 21:00 Zinc Sulfate (Zinc Sulfate) 220 mg DAILY PO Last administered on 02/14/19 09: 14; Admin Dose 220 MG; Start 01/27/19 at 09:00 Insulin Aspart (Novolog Insulin Pen) NOVOLOG *MODERATE* ALGORITHM WITH MEALS BEDTIME SC Last administered on 02/04/19 17:37; Admin Dose 2 UNIT; Start 01/26/19 at 21:00 Heparin Sodium (Porcine) (Heparin (5000 Units/1ml)) 5,000 unit BID SC Last administered on 02/14/19 09:16; Admin Dose 5,000 UNIT; Start 01/26/19 at 21:00 Morphine Sulfate (morphine) 2 mg Q4H PRN IV SEVERE PAIN LEVEL 7-10 Last administered on 02/14/19 08:12; Admin Dose 2 MG; Start 01/26/19 at 20:30 Miscellaneous Information 1 ea NOTE XX ; Start 01/26/19 at 23:45 Glucose (Glutose) 15 gm Q15M PRN PO DECREASED GLUCOSE; Start 01/26/19 at 23:45 Glucose (Glutose) 22.5 gm Q15M PRN PO DECREASED GLUCOSE; Start 01/26/19 at 23:45 Dextrose (D50w Syringe) 25 ml Q15M PRN IV DECREASED GLUCOSE Last administered on 01/28/19 07:50; Admin Dose 25 ML; Start 01/26/19 at 23:45 Dextrose (D50w Syringe) 50 ml Q15M PRN IV DECREASED GLUCOSE; Start 01/26/19 at 23:45 Glucagon (Glucagen) 1 mg Q15M PRN IM DECREASED GLUCOSE; Start 01/26/19 at 23:45 Glucose (Glutose) 15 gm Q15M PRN BUCCAL DECREASED GLUCOSE; Start 01/26/19 at 23:45 Alteplase, Recombinant (Cathflo (Activase)) 2 mg MAY REPEAT X1 PRN CATHETER IF CATHETER REMAINS OCCULUDED Last administered on 02/02/19 23:09; Admin Dose 2 MG; Start 01/27/19 at 07:00 Tramadol HCl (Ultram) 50 mg Q6H PO Last administered on 02/13/19 01:59; Admin Dose 50 MG; Start 01/27/19 at 08:00 Collagenase (Santyl) 1 applic DAILY TOP Last administered on 02/14/19 09:15; Admin Dose 1 APPLIC; Start 01/28/19 at 09:00 Lorazepam (Ativan) 1 mg Q8H PRN PO ANXIETY; Start 01/27/19 at 22:30 Mupirocin (Bactroban) 1 applic BID TOP Last administered on 02/14/19 09:28; Admin Dose 1 APPLIC; Start 01/28/19 at 21:00 Megestrol Acetate (Megace Susp) 400 mg DAILY PO Last administered on 02/12/19 09:34; Admin Dose 400 MG; Start 01/30/19 at 14:30 Linezolid (Zyvox) 600 mg BID PO Last administered on 02/14/19 09:14; Admin Dose 600 MG; Start 01/31/19 at 16:00 Lactulose (Enulose) 20 gm Q6H PRN PO CONSTIPATION; Start 02/04/19 at 11:00 Hydralazine HCl (Apresoline) 100 mg Q8 PO Last administered on 02/14/19 05:48; Admin Dose 100 MG; Start 02/04/19 at 14:00 Metoprolol Tartrate (Lopressor) 50 mg BID PO Last administered on 02/14/19 09:15; Admin Dose 50 MG; Start 02/08/19 at 21:00 Ondansetron HCl (Zofran Inj) 4 mg Q6H PRN IV NAUSEA AND/OR VOMITING Last administered on 02/13/19 12:09; Admin Dose 4 MG; Start 02/09/19 at 12:30 Meropenem/Sodium Chloride 50 ml @ 100 mls/hr Q12 IVPB Last administered on 02/14/19 09:17; Admin Dose 100 MLS/HR; Start 02/10/19 at 21:00 Amikacin Sulfate (Amikacin Iv Per Pharmacy) AMIKACIN PER PHARMACY NOTE XX ; Start 02/11/19 at 12:30 Amikacin Sulfate 300 mg/Sodium Chloride 101.2 ml @ 102 mls/hr AFTER DIALYSIS IVPB Last administered on 02/13/19 05:38; Admin Dose 102 MLS/HR; Start 02/11/19 at 14:30 Epoetin Indra-epbx (Retacrit (Esrd)) 8,000 unit TuThSa@1700 SC Last administered on 02/13/19 17:07; Admin Dose 8,000 UNIT; Start 02/11/19 at 18:09 Amlodipine Besylate (Norvasc) 2.5 mg DAILY PO Last administered on 02/14/19 09:15; Admin Dose 2.5 MG; Start 02/14/19 at 09:00 Sodium Hypochlorite (Dakin'S (Dilute )) 1 applic Q12 IRR Last administered on 02/14/19 09:28; Admin Dose 1 APPLIC; Start 02/14/19 at 09:00 ALYX NAVARRO NP Feb 14, 2019 13:25
[2019-02-14 14:00] VITALS: BP 173/74; PULSE 67; RESP 17
--- NOTE | 2019-02-14 15:02 | CONS ---
Assessment/Plan Assessment/Plan Hospital Course (Demo Recall) IMPRESSION: 1. Preop evaluation. The patient to undergo EGD whose 2D echo I just read revealing EF lower limits of normal, approximately 50% with no significant contraindicated valvular lesions and negative troponin x1 since admit, patient is okay to proceed at a moderate cardiovascular risk. Now post-op s/p endoscopy and debridement of decub ulcer 2. Congestive heart failure, diastolic acute on chronic. 3. Hypertension. 4. Cardiac arrhythmia, on amiodarone, in sinus rhythm by EKG. 5. Hypothyroidism. 6. Diabetes mellitus. 7. Nausea and vomiting. 8. Generalized weakness. 9. Decubitus ulcers s/p debridement 10. Anemia. 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 12.CKD on HD Recc: -Tele -Contineu BB/hydralazien and now low dose CCB with overall improved BP -continue statin -Continue abx's and f/u cx data per ID -local wound care -HD for volume removal Consultation Date/Type/Reason Admit Date/Time Jan 26, 2019 at 17:32 Initial Consult Date 01/27/19 Type of Consult Cardiology Reason for Consultation CHF Requesting Provider: ALEXUS VALENCIA MD Date/Time of Note DATE: 02/14/19 TIME: 15:00 Exam/Review of Systems Vital Signs Vitals Vital Signs Date Temp Pulse Resp B/P (MAP) Pulse Ox O2 O2 Flow FiO2 Time Delivery Rate 02/14/19 Nasal 2.0 09:00 Cannula 02/14/19 98.4 68 17 136/63 97 08:50 (87) Intake and Output 02/13/19 02/13/19 02/14/19 1515:00 23:00 07:00 IntakeIntake Total 250 ml 370 ml BalanceBalance 250 ml 370 ml Exam Exam Review of Systems: CONSTITUTIONAL: No fevers, chills. PULMONARY: No sob CARDIOVASCULAR: No chest pain/palpitations GASTROINTESTINAL: No nausea/vomiting. GENITOURINARY: No hematuria/dysuria. MUSCULOSKELETAL: No myagias/arthalgias. PSYCHIATRIC: The patient denies depression. NEUROLOGIC: mild generalized weakness Constitutional: other (sleeping, easily arouasable) Psych: no complaints Head: normocephalic ENMT: mucosa pink and moist Neck: supple, jvd (9 cm water) Respiratory: diminished breath sounds (at bases/B) Cardiovascular: regular rate and rhythm Gastrointestinal: soft, non-tender Musculoskeletal: muscle weakness (mild generalized) Extremities: edema (trace/B) Neurological: other (No focal deficts) Labs Result Diagram: 02/13/19 0530 02/13/19 0530 Results 24hrs Laboratory Tests Test 02/13/19 17:05 02/13/19 21:59 02/14/19 08:21 02/14/19 12:25 Bedside Glucose 127 132 105 115 Medications Medications Current Medications Amiodarone HCl (Cordarone) 200 mg DAILY PO Last administered on 02/14/19 09:15; Admin Dose 200 MG; Start 01/27/19 at 09:00 Ascorbic Acid (Vitamin C) 500 mg DAILY PO Last administered on 02/14/19 09:15; Admin Dose 500 MG; Start 01/27/19 at 09:00 Atorvastatin Calcium (Lipitor) 20 mg QHS PO Last administered on 02/13/19 22:00; Admin Dose 20 MG; Start 01/26/19 at 21:00 Bisacodyl (Dulcolax) 10 mg Q24H PRN PO CONSTIPATION; Start 01/26/19 at 20:00 Citalopram Hydrobromide (Celexa) 20 mg DAILY PO Last administered on 02/14/19 09:14; Admin Dose 20 MG; Start 01/27/19 at 09:00 Docusate Sodium (Colace) 100 mg BID PO Last administered on 02/14/19 09:14; Admin Dose 100 MG; Start 01/26/19 at 21:00 Folic Acid (Folic Acid) 1 mg DAILY PO Last administered on 02/14/19 09:14; Admi n Dose 1 MG; Start 01/27/19 at 09:00 Levothyroxine Sodium (Synthroid) 100 mcg BEFORE BREAKFAST PO Last administered on 02/14/19 05:50; Admin Dose 100 MCG; Start 01/27/19 at 07:00 Metoclopramide HCl (Reglan) 5 mg BEFORE MEALS PO Last administered on 02/13/19 17:06; Admin Dose 5 MG; Start 01/27/19 at 07:30 Multivit/Ca Carb/ B Cmplx/FA/Prenat (Wendi-Cathi) 1 tab DAILY PO Last administered on 02/14/19 09:14; Admin Dose 1 TAB; Start 01/27/19 at 09:00 Ondansetron HCl (Zofran Tab) 4 mg Q6H PRN PO NAUSEA AND/OR VOMITING Last administered on 01/30/19 10:43; Admin Dose 4 MG; Start 01/26/19 at 20:00 Pantoprazole (Protonix Tab) 40 mg DAILY PO Last administered on 02/14/19 09:15; Admin Dose 40 MG; Start 01/27/19 at 09:00 Polyethylene Glycol (Miralax) 17 gm DAILY PO Last administered on 02/09/19 08:40; Admin Dose 17 GM; Start 01/27/19 at 09:00 Prednisolone Acetate (Pred-Forte 1%) 1 drop BID RIGHT EYE Last administered on 02/14/19 09:28; Admin Dose 1 DROP; Start 01/26/19 at 21:00 Zinc Sulfate (Zinc Sulfate) 220 mg DAILY PO Last administered on 02/14/19 09:14; Admin Dose 220 MG; Start 01/27/19 at 09:00 Insulin Aspart (Novolog Insulin Pen) NOVOLOG *MODERATE* ALGORITHM WITH MEALS BEDTIME SC Last administered on 02/04/19 17:37; Admin Dose 2 UNIT; Start 01/26/19 at 21:00 Heparin Sodium (Porcine) (Heparin (5000 Units/1ml)) 5,000 unit BID SC Last administered on 02/14/19 09:16; Admin Dose 5,000 UNIT; Start 01/26/19 at 21:00 Morphine Sulfate (morphine) 2 mg Q4H PRN IV SEVERE PAIN LEVEL 7-10 Last administered on 02/14/19 08:12; Admin Dose 2 MG; Start 01/26/19 at 20:30 Miscellaneous Information 1 ea NOTE XX ; Start 01/26/19 at 23:45 Glucose (Glutose) 15 gm Q15M PRN PO DECREASED GLUCOSE; Start 01/26/19 at 23:45 Glucose (Glutose) 22.5 gm Q15M PRN PO DECREASED GLUCOSE; Start 01/26/19 at 23:45 Dextrose (D50w Syringe) 25 ml Q15M PRN IV DECREASED GLUCOSE Last administered on 01/28/19 07:50; Admin Dose 25 ML; Start 01/26/19 at 23:45 Dextrose (D50w Syringe) 50 ml Q15M PRN IV DECREASED GLUCOSE; Start 01/26/19 at 23:45 Glucagon (Glucagen) 1 mg Q15M PRN IM DECREASED GLUCOSE; Start 01/26/19 at 23:45 Glucose (Glutose) 15 gm Q15M PRN BUCCAL DECREASED GLUCOSE; Start 01/26/19 at 2 3:45 Alteplase, Recombinant (Cathflo (Activase)) 2 mg MAY REPEAT X1 PRN CATHETER IF CATHETER REMAINS OCCULUDED Last administered on 02/02/19 23:09; Admin Dose 2 MG; Start 01/27/19 at 07:00 Tramadol HCl (Ultram) 50 mg Q6H PO Last administered on 02/13/19 01:59; Admin Dose 50 MG; Start 01/27/19 at 08:00 Collagenase (Santyl) 1 applic DAILY TOP Last administered on 02/14/19 09:15; Admin Dose 1 APPLIC; Start 01/28/19 at 09:00 Lorazepam (Ativan) 1 mg Q8H PRN PO ANXIETY; Start 01/27/19 at 22:30 Mupirocin (Bactroban) 1 applic BID TOP Last administered on 02/14/19 09:28; Admin Dose 1 APPLIC; Start 01/28/19 at 21:00 Megestrol Acetate (Megace Susp) 400 mg DAILY PO Last administered on 02/12/19 09:34; Admin Dose 400 MG; Start 01/30/19 at 14:30 Lactulose (Enulose) 20 gm Q6H PRN PO CONSTIPATION; Start 02/04/19 at 11:00 Hydralazine HCl (Apresoline) 100 mg Q8 PO Last administered on 02/14/19 05:48; Admin Dose 100 MG; Start 02/04/19 at 14:00 Metoprolol Tartrate (Lopressor) 50 mg BID PO Last administered on 02/14/19 09:15; Admin Dose 50 MG; Start 02/08/19 at 21:00 Ondansetron HCl (Zofran Inj) 4 mg Q6H PRN IV NAUSEA AND/OR VOMITING Last administered on 02/13/19at 12:09; Admin Dose 4 MG; Start 02/09/19 at 12:30 Meropenem/Sodium Chloride 50 ml @ 100 mls/hr Q12 IVPB Last administered on 02/14/19at 09:17; Admin Dose 100 MLS/HR; Start 02/10/19 at 21:00 Amikacin Sulfate (Amikacin Iv Per Pharmacy) AMIKACIN PER PHARMACY NOTE XX ; Start 02/11/19 at 12:30 Amikacin Sulfate 300 mg/Sodium Chloride 101.2 ml @ 102 mls/hr AFTER DIALYSIS IVPB Last administered on 02/13/19at 05:38; Admin Dose 102 MLS/HR; Start 02/11/19 at 14:30 Epoetin Indra-epbx (Retacrit (Esrd)) 8,000 unit TuThSa@1700 SC Last administered on 02/13/19at 17:07; Admin Dose 8,000 UNIT; Start 02/11/19 at 18:09 Amlodipine Besylate (Norvasc) 2.5 mg DAILY PO Last administered on 02/14/19at 09:15; Admin Dose 2.5 MG; Start 02/14/19 at 09:00 Sodium Hypochlorite (Dakin'S (Dilute )) 1 applic Q12 IRR Last administered on 02/14/19at 09:28; Admin Dose 1 APPLIC; Start 02/14/19 at 09:00 Daptomycin 315 mg/ Sodium Chloride 100 ml @ 200 mls/hr Q48H IVPB ; Start 02/15/19 at 17:00 Daptomycin 315 mg/ Sodium Chloride 100 ml @ 200 mls/hr NOW IVPB ; Start 02/14/19 at 15:30; Stop 02/14/19 at 15:59 ALIREZA LEE Feb 14, 2019 15:02
[2019-02-14] MEDS ORDERED: DAPTOMYCIN IVPB SCH (15:30)
[2019-02-14] MEDS ORDERED: SOD CHLORIDE 0.9% IVPB SCH (15:30)
--- NOTE | 2019-02-14 16:29 | PN ---
Date/Time of Note Date/Time of Note DATE: 02/14/19 TIME: 16:25 Assessment/Plan Lines/Catheters IV Catheter Type (from Nrs): PICC Line [place] in Place (from Nrs): No Assessment/Plan Chief Complaint/Hosp Course 1. Sacral and bilateral ischial wounds: wnd cx noted; status post sacrum and right ischial debridement 01/29/19 -Further debridement as needed -Continue local care> Can follow with Dr. Almanza as outpatient in wound clinic. -frequent turning and off-loading -low air loss mattress -vitamin c -short term zinc -optimize nutrition -Will need podiatry consult for heel wound 2. Abdominal pain and generalized weakness: Status post EGD: Gastritis; no acute abd pain -further w/u per med team -PPI 3. ESRD -limit nephrotoxins -HD per renal -renally dose meds 4. Anemia: -monitor and transfuse as needed 5. Diabetes with episodes of hypoglycemia; no hypoglycemia episodes-sugar control much improved -glucose management 6. Hypothyroidism -med mgt 7. Pleural effusions: Persistent -Pulmonary consult -fluid management 8. Leukocytosis: normalized -As above Thank you. Patient seen and examined in collaboration with Dr. Simón Almanza. Subjective 24 Hr Interval Summary WBC normalized. No fevers, chills, sob, congested cough, cp, palpitations, hoffman, dizziness, nausea, vomiting, diarrhea, dysuria. Exam/Review of Systems Vital Signs Vitals Vital Signs Date Temp Pulse Resp B/P (MAP) Pulse Ox O2 O2 Flow FiO2 Time Delivery Rate 02/14/19 Nasal 2.0 09:00 Cannula 02/14/19 98.4 68 17 136/63 97 08:50 (87) Intake and Output 02/13/19 02/13/19 02/14/19 1515:00 23:00 07:00 IntakeIntake Total 250 ml 370 ml BalanceBalance 250 ml 370 ml Exam Free Text/Dictation Constitutional: alert, oriented, obese Psych: normal mood Head: normocephalic, atraumatic Eyes: nl conjunctiva, EOMI, nl lids, nl sclera ENMT: nl external ears & nose, nl lips & teeth, mucosa pink and moist Neck: supple, non-tender; No jvd Respiratory: normal air movement; No congested cough, No labored breathing Cardiovascular: regular rate and rhythm, nl pulses; No edema Gastrointestinal: soft, non-tender, distended Genitourinary - Female: nl external genitalia Musculoskeletal: nl extremities to inspection, nl gait and stance Extremities: normal pulses Neurological: nl mental status, nl speech, nl strength Skin: other (sacral: Packed, no odor, minimal periwound erythema, min slough; right ischium: Packed, improved odor; left ischium: unstageable); No rash or lesions Results Result Diagram: 02/13/19 0530 02/13/19 0530 ARSLAN COATES NP Feb 14, 2019 16:29
[2019-02-14] MEDS: ATORVASTATIN 20 MG TAB PO SCH (21:24)
[2019-02-14 21:32] VITALS: BP 146/66; PULSE 69; RESP 18
[2019-02-15] VITALS (18 sets, daily range): BP systolic 99–147; BP diastolic 41–71; PULSE 62–68; RESP 18–20
[2019-02-15] MEDS: traMADol 50 MG TAB PO SCH ×4 (02:30→22:24)
[2019-02-15] MEDS: LEVOTHYROXINE 100 MCG TAB PO SCH (05:49)
[2019-02-15] MEDS: INSULIN ASPART [NOVOLOG] 3 ML PEN SC SCH ×4 (08:00→21:00)
[2019-02-15] MEDS: ASCORBIC ACID 500 MG TAB PO SCH (08:22)
[2019-02-15] MEDS: ZINC SULFATE 220 MG CAP PO SCH (08:22)
[2019-02-15] MEDS: CITALOPRAM 20 MG TAB PO SCH (08:22)
[2019-02-15] MEDS: DOCUSATE SODIUM 100 MG CAP PO SCH ×2 (08:22→22:24)
[2019-02-15] MEDS: COLLAGENASE 5 GM (UD JAR) TOP SCH (08:22)
[2019-02-15] MEDS: AMLODIPINE 2.5 MG TAB PO SCH (08:22)
[2019-02-15] MEDS: MULTIVIT/CA CARB/B CMPLX/FA TAB PO SCH (08:23)
[2019-02-15] MEDS: FOLIC ACID 1 MG TAB PO SCH (08:23)
[2019-02-15] MEDS: AMIODARONE 200 MG TAB PO SCH (08:24)
[2019-02-15] MEDS: METOPROLOL 50 MG TAB PO SCH ×2 (08:24→22:25)
[2019-02-15] MEDS: BALSAM PERU/CASTOR OIL 60 GM TUBE TOP SCH ×2 (08:25→22:41)
[2019-02-15] MEDS: MEROPENEM 500MG/50 ML (PMX) 50 ML IVPB SCH (08:25)
[2019-02-15] MEDS: SODIUM HYPOCHLORITE (1/40) 1 LITER BTL IRR SCH ×2 (08:25→22:41)
[2019-02-15] MEDS: PREDNISOLONE ACET 1% 5 ML OPH RIGHT EYE SCH ×2 (08:26→22:40)
[2019-02-15] MEDS: MUPIROCIN 2% 22 GM OINT TOP SCH (08:26)
[2019-02-15] MEDS: PANTOPRAZOLE (EC) 40 MG TAB PO SCH (08:26)
[2019-02-15] MEDS: METOCLOPRAMIDE 5 MG TAB PO SCH ×3 (08:29→17:17)
[2019-02-15] MEDS: MEGESTROL (40 MG/ML) 10ML CUP PO SCH (08:32)
[2019-02-15] MEDS: POLYETHYLENE GLYCOL 17 GM PACKET PO SCH (08:32)
[2019-02-15] MEDS: HEPARIN 5,000 UNIT/1 ML VIAL SC SCH ×2 (08:35→22:26)
--- NOTE | 2019-02-15 11:39 | CONS ---
Assessment/Plan Assessment/Plan Assessment/Plan (Daily) Left heel decubitus ulcer Stage 3 Onychomycosis DM2 with peripheral neuropathy Sacral decubitus ulcers ESRD on HD DM2 with peripheral neuropathy Pleural effusions Plan Patient refused nail and wound debridements, despite explaining the benefits of the procedure. Recommend to nursing staff santyl to left heel ulcer with betadine 4x4 gauze and kerlix and strict offloading of the heels with prevelon soft offloading boots. Wound cultures obtained, x-rays and non invasive arterial studies ordered. Recommend daily dressing changes. Consultation Date/Type/Reason Admit Date/Time Jan 26, 2019 at 17:32 Date/Time of Note DATE: 02/15/19 TIME: 11:39 Hx of Present Illness 63 y/o F patient with hx of ESRD on HD, DM2, HTN, diastolic heart failure, recurrent pleural effusion, dyslipidemia presents to the floor with left heel ulcer. Patient had been previously admitted for multidrug resistant UTI as well as recurring pleural effusion. Patient states her left heel ulcer is painful and does not tolerate it when people touch the wound. Patient is unaware of when or how the wound began. Patient is being seen for multiple wounds on her body. No additional complaints at this time. Past Medical History Medical History: congestive heart failure, coronary artery disease, diabetes, renal disease Home Meds Reported Medications Insulin Lispro (Humalog Kwikpen U-100) 100 Unit/1 Ml Insuln.pen, 0 SQ SLIDING SCALE, EA IF BS 151-200=1 UNIT,201-250=2 UNITS,251-300=3 UNITS,301-350=4 UNITS,351-400=5 UNITS, IF >400=6 UNITS AND CALL 01/26/19 Dariel Borrero/[place] Oil (Venelex Ointment) 60 Gm Oint..gm., 1 APPLIC TOP NE EDED, #1 TUB 01/26/19 Multivit/Ca Carb/B Cmplx/Fa* (Wendi-Cathi*) 1 Tab Tab, 1 TAB PO DAILY, TAB 01/26/19 Metoclopramide* (Reglan*) 5 Mg Tablet, 5 MG PO BEFORE MEALS, TAB 01/26/19 Protein Supplement (Promod) 946 Ml Liquid, 30 ML PO DAILY 01/26/19 Lactose-Free Food (Nutritional Supplement) 237 Ml Liquid, 1 PO BID 01/26/19 Morphine Sulfate* (Morphine* Liq) 10 Mg/0.5 Ml Disp.syrin, 6 MG SL Q4H PRN for PAIN 7-08/19, ML 01/26/19 Ipratropium-Albuterol (Ipratropium-Albuterol) 0.5-3 Mg/3 Ml Ampul.neb, 3 ML INHALATION TID, #30 VIAL 01/26/19 Heparin Sod,Porcine/0.9 % NaCl (Heparin 5,000 Unit/5 ml-Ns) 5,000 Unit/5 Ml Syringe, 5000 UNIT IV Q8H 01/26/19 Ondansetron Hcl* (Zofran*) 4 Mg Tablet, 4 MG PO Q6H PRN for NAUSEA AND OR VOMITING, TAB 01/26/19 Citalopram Hydrobromide* (Citalopram Hydrobromide*) 20 Mg Tablet, 20 MG PO DAILY, #30 TAB 01/26/19 Bisacodyl* (Bisacodyl*) 5 Mg Tablet.dr, 10 MG PO Q24H PRN for CONSTIPATION, TAB 01/26/19 Diphenhydramine Hcl* (Diphenhydramine Hcl*) 25 Mg Capsule, 25 MG PO Q6 PRN for ITCHING, CAP 01/26/19 Polyethylene Glycol* (Polyethylene Glycol*) 17 Gm Powd.pack, 17 GM PO DAILY, #30 PACKET 11/18/18 Pantoprazole* (Pantoprazole*) 40 Mg Tablet.dr, 40 MG PO DAILY, TAB 11/18/18 Metoprolol Tartrate* (Lopressor*) 25 Mg Tablet, 25 MG PO BID, #60 TAB HOLD IF SBP<110 OR HR<60 11/18/18 Losartan Potassium* (Losartan Potassium*) 50 Mg Tablet, 50 MG PO BID, TAB HOLD IFSBP<110 OR HR<60 11/18/18 Levothyroxine Sodium* (Levothyroxine Sodium*) 100 Mcg Tablet, 100 MCG PO BEFORE BREAKFAST, #30 TAB 11/18/18 Insulin Detemir (Levemir) 100 Unit/1 Ml Vial, 6 UNITS SQ QHS 11/18/18 Folic Acid* (Folic Acid*) 1 Mg Tablet, 1 MG PO DAILY, TAB 11/18/18 Zinc Sulfate* (Zinc Sulfate*) 220 Mg Cap, 220 MG PO DAILY, CAP 11/18/18 Ascorbic Acid (Vitamin C) 500 Mg Tab, 500 MG PO DAILY, TAB 11/18/18 Acetaminophen* (Acetaminophen*) 325 Mg Tablet, 325 MG PO Q4H PRN for PAIN AND OR ELEVATED TEMP, #30 TAB FOR MILD PAIN 1-311/18/18 Trazodone Hcl* (Trazodone Hcl*) 50 Mg Tablet, 50 MG PO QHS, #30 TAB 11/18/18 Tramadol HCl (Tramadol HCl) 50 Mg Tablet, 50 MG PO Q6H PRN for PAIN, #120 TAB 11/18/18 Prednisolone Acetate* (Pred Forte*) 5 Ml Susp, 1 DROP RIGHT EYE BID, EA 11/18/18 Docusate Sodium* (Colace*) 100 Mg Capsule, 100 MG PO BID, #30 CAP 11/18/18 Atorvastatin Calcium* (Atorvastatin Calcium*) 20 Mg Tablet, 20 MG PO QHS, #30 TAB 11/18/18 Amlodipine Besylate* (Norvasc*) 5 Mg Tablet, 5 MG PO QHS, TAB HOLD IF SBP<110 OR HR<60 11/18/18 Amiodarone Hcl* (Amiodarone Hcl*) 200 Mg Tablet, 200 MG PO DAILY, #30 TAB 11/18/18 Medications Current Medications Amiodarone HCl (Cordarone) 200 mg DAILY PO Last administered on 02/15/19at 08:24; Admin Dose 200 MG; Start 01/27/19 at 09:00 Ascorbic Acid (Vitamin C) 500 mg DAILY PO Last administered on 02/15/19 08:22; Admin Dose 500 MG; Start 01/27/19 at 09:00 Atorvastatin Calcium (Lipitor) 20 mg QHS PO Last administered on 02/14/19at 21 :24; Admin Dose 20 MG; Start 01/26/19 at 21:00 Bisacodyl (Dulcolax) 10 mg Q24H PRN PO CONSTIPATION; Start 01/26/19 at 20:00 Citalopram Hydrobromide (Celexa) 20 mg DAILY PO Last administered on 02/15/19 08:22; Admin Dose 20 MG; Start 01/27/19 at 09:00 Docusate Sodium (Colace) 100 mg BID PO Last administered on 02/15/19 08:22; Admin Dose 100 MG; Start 01/26/19 at 21:00 Folic Acid (Folic Acid) 1 mg DAILY PO Last administered on 02/15/19 08:23; Admin Dose 1 MG; Start 01/27/19 at 09:00 Levothyroxine Sodium (Synthroid) 100 mcg BEFORE BREAKFAST PO Last administered on 02/15/19 05:49; Admin Dose 100 MCG; Start 01/27/19 at 07:00 Metoclopramide HCl (Reglan) 5 mg BEFORE MEALS PO Last administered on 02/15/19 08:29; Admin Dose 5 MG; Start 01/27/19 at 07:30 Multivit/Ca Carb/ B Cmplx/FA/Prenat (Wendi-Cathi) 1 tab DAILY PO Last administered on 02/15/19 08:23; Admin Dose 1 TAB; Start 01/27/19 at 09:00 Ondansetron HCl (Zofran Tab) 4 mg Q6H PRN PO NAUSEA AND/OR VOMITING Last administered on 01/30/19 10:43; Admin Dose 4 MG; Start 01/26/19 at 20:00 Pantoprazole (Protonix Tab) 40 mg DAILY PO Last administered on 02/15/19 08:26; Admin Dose 40 MG; Start 01/27/19 at 09:00 Polyethylene Glycol (Miralax) 17 gm DAILY PO Last administered on 02/09/19 08:40; Admin Dose 17 GM; Start 01/27/19 at 09:00 Prednisolone Acetate (Pred-Forte 1%) 1 drop BID RIGHT EYE Last administered on 02/15/19 08:26; Admin Dose 1 DROP; Start 01/26/19 at 21:00 Zinc Sulfate (Zinc Sulfate) 220 mg DAILY PO Last administered on 02/15/19 08:22; Admin Dose 220 MG; Start 01/27/19 at 09:00 Insulin Aspart (Novolog Insulin Pen) NOVOLOG *MODERATE* ALGORITHM WITH MEALS BEDTIME SC Last administered on 02/04/19 17:37; Admin Dose 2 UNIT; Start 01/26/19 at 21:00 Heparin Sodium (Porcine) (Heparin (5000 Units/1ml)) 5,000 unit BID SC Last administered on 02/15/19 08:35; Admin Dose 5,000 UNIT; Start 01/26/19 at 21:00 Morphine Sulfate (morphine) 2 mg Q4H PRN IV SEVERE PAIN LEVEL 7-10 Last administered on 02/14/19 08:12; Admin Dose 2 MG; Start 01/26/19 at 20:30 Miscellaneous Information 1 ea NOTE XX ; Start 01/26/19 at 23:45 Glucose (Glutose) 15 gm Q15M PRN PO DECREASED GLUCOSE; Start 01/26/19 at 23:45 Glucose (Glutose) 22.5 gm Q15M PRN PO DECREASED GLUCOSE; Start 01/26/19 at 23:45 Dextrose (D50w Syringe) 25 ml Q15M PRN IV DECREASED GLUCOSE Last administered on 01/28/19 07:50; Admin Dose 25 ML; Start 01/26/19 at 23:45 Dextrose (D50w Syringe) 50 ml Q15M PRN IV DECREASED GLUCOSE; Start 01/26/19 at 23:45 Glucagon (Glucagen) 1 mg Q15M PRN IM DECREASED GLUCOSE; Start 01/26/19 at 23:45 Glucose (Glutose) 15 gm Q15M PRN BUCCAL DECREASED GLUCOSE; Start 01/26/19 at 23:45 Alteplase, Recombinant (Cathflo (Activase)) 2 mg MAY REPEAT X1 PRN CATHETER IF CATHETER REMAINS OCCULUDED Last administered on 02/02/19 23:09; Admin Dose 2 MG; Start 01/27/19 at 07:00 Tramadol HCl (Ultram) 50 mg Q6H PO Last administered on 02/15/19 08:23; Admin Dose 50 MG; Start 01/27/19 at 08:00 Collagenase (Santyl) 1 applic DAILY TOP Last administered on 02/15/19 08:22; Admin Dose 1 APPLIC; Start 01/28/19 at 09:00 Lorazepam (Ativan) 1 mg Q8H PRN PO ANXIETY; Start 01/27/19 at 22:30 Mupirocin (Bactroban) 1 applic BID TOP Last administered on 02/15/19 08:26; Admin Dose 1 APPLIC; Start 01/28/19 at 21:00 Megestrol Acetate (Megace Susp) 400 mg DAILY PO Last administered on 02/12/19 09:34; Admin Dose 400 MG; Start 01/30/19 at 14:30 Lactulose (Enulose) 20 gm Q6H PRN PO CONSTIPATION; Start 02/04/19 at 11:00 Hydralazine HCl (Apresoline) 100 mg Q8 PO Last administered on 02/15/19 05:50; Admin Dose 100 MG; Start 02/04/19 at 14:00 Metoprolol Tartrate (Lopressor) 50 mg BID PO Last administered on 02/15/19 08:24; Admin Dose 50 MG; Start 02/08/19 at 21:00 Ondansetron HCl (Zofran Inj) 4 mg Q6H PRN IV NAUSEA AND/OR VOMITING Last ad ministered on 02/13/19 12:09; Admin Dose 4 MG; Start 02/09/19 at 12:30 Meropenem/Sodium Chloride 50 ml @ 100 mls/hr Q12 IVPB Last administered on 02/15/19 08:25; Admin Dose 100 MLS/HR; Start 02/10/19 at 21:00 Amikacin Sulfate (Amikacin Iv Per Pharmacy) AMIKACIN PER PHARMACY NOTE XX ; Start 02/11/19 at 12:30 Amikacin Sulfate 300 mg/Sodium Chloride 101.2 ml @ 102 mls/hr AFTER DIALYSIS IVPB Last administered on 02/13/19 05:38; Admin Dose 102 MLS/HR; Start 02/11/19 at 14:30 Epoetin Indra-epbx (Retacrit (Esrd)) 8,000 unit TuThSa@1700 SC Last administered on 02/13/19 17:07; Admin Dose 8,000 UNIT; Start 02/11/19 at 18:09 Amlodipine Besylate (Norvasc) 2.5 mg DAILY PO Last administered on 02/15/19 0 8:22; Admin Dose 2.5 MG; Start 02/14/19 at 09:00 Sodium Hypochlorite (Dakin'S (Dilute )) 1 applic Q12 IRR Last administered on 02/15/19 08:25; Admin Dose 1 APPLIC; Start 02/14/19 at 09:00 Daptomycin 315 mg/ Sodium Chloride 100 ml @ 200 mls/hr Q48H IVPB ; Start 02/15/19 at 17:00 Allergies: Coded Allergies: codeine (Verified Allergy, Unknown, 01/26/19) PT TAKES MORPHINE AT HOME, HAS HAD HYDROCODONE AT [facility] IN A PREVIOUS VISIT Past Surgical History Past Surgical Hx: other Social History Alcohol Use: none Smoking Status: Unknown if ever smoked Drug Use: none Exam/Review of Systems Exam Vitals Vital Signs Date Temp Pulse Resp B/P (MAP) Pulse Ox O2 O2 Flow FiO2 Time Delivery Rate 02/15/19 98.6 68 18 132/61 96 Nasal 08:53 (84) Cannula 02/15/19 3.0 02:32 Intake and Output 02/14/19 02/14/19 02/15/19 1515:00 23:00 07:00 IntakeIntake Total 350 ml 150 ml 120 ml BalanceBalance 350 ml 150 ml 120 ml Exam Unable to palpate DP/PT and popliteal pulses absent protective sensations elongated thickened mycotic toe nails Left heel ulcer 3.4 x 1.0 x 0.3cm, there is granular wound base with surrounding skin slough and mild purulent drainage. No surrounding erythema, no proximal streaking, unable to probe to bone. Pain on palpation to the left heel wound. Results Result Diagram: 02/13/19 0502/13/19 0530 Results 24hrs Laboratory Tests Test 02/14/19 12:25 02/14/19 17:49 02/14/19 21:23 02/15/19 05:48 Bedside Glucose 115 120 114 Creatine Kinase < 20 L Test 02/15/19 08:02 Bedside Glucose 100 Medications Medication Current Medications Amiodarone HCl (Cordarone) 200 mg DAILY PO Last administered on 02/15/19 08:24; Admin Dose 200 MG; Start 01/27/19 at 09:00 Ascorbic Acid (Vitamin C) 500 mg DAILY PO Last administered on 02/15/19 08:22; Admin Dose 500 MG; Start 01/27/19 at 09:00 Atorvastatin Calcium (Lipitor) 20 mg QHS PO Last administered on 02/14/19 21:24; Admin Dose 20 MG; Start 01/26/19 at 21:00 Bisacodyl (Dulcolax) 10 mg Q24H PRN PO CONSTIPATION; Start 01/26/19 at 20:00 Citalopram Hydrobromide (Celexa) 20 mg DAILY PO Last administered on 02/15/19 08:22; Admin Dose 20 MG; Start 01/27/19 at 09:00 Docusate Sodium (Colace) 100 mg BID PO Last administered on 02/15/19 08:22; Admin Dose 100 MG; Start 01/26/19 at 21:00 Folic Acid (Folic Acid) 1 mg DAILY PO Last administered on 02/15/19 08:23; Admin Dose 1 MG; Start 01/27/19 at 09:00 Levothyroxine Sodium (Synthroid) 100 mcg BEFORE BREAKFAST PO Last administered on 02/15/19 05:49; Admin Dose 100 MCG; Start 01/27/19 at 07:00 Metoclopramide HCl (Reglan) 5 mg BEFORE MEALS PO Last administered on 02/15/19 08:29; Admin Dose 5 MG; Start 01/27/19 at 07:30 Multivit/Ca Carb/ B Cmplx/FA/Prenat (Wendi-Cathi) 1 tab DAILY PO Last administered on 02/15/19 08:23; Admin Dose 1 TAB; Start 01/27/19 at 09:00 Ondansetron HCl (Zofran Tab) 4 mg Q6H PRN PO NAUSEA AND/OR VOMITING Last administered on 01/30/19 10:43; Admin Dose 4 MG; Start 01/26/19 at 20:00 Pantoprazole (Protonix Tab) 40 mg DAILY PO Last administered on 02/15/19 08:26; Admin Dose 40 MG; Start 01/27/19 at 09:00 Polyethylene Glycol (Miralax) 17 gm DAILY PO Last administered on 02/09/19 08:40; Admin Dose 17 GM; Start 01/27/19 at 09:00 Prednisolone Acetate (Pred-Forte 1%) 1 drop BID RIGHT EYE Last administered on 02/15/19 08:26; Admin Dose 1 DROP; Start 01/26/19 at 21:00 Zinc Sulfate (Zinc Sulfate) 220 mg DAILY PO Last administered on 02/15/19 08:22; Admin Dose 220 MG; Start 01/27/19 at 09:00 Insulin Aspart (Novolog Insulin Pen) NOVOLOG *MODERATE* ALGORITHM WITH MEALS BEDTIME SC Last administered on 02/04/19 17:37; Admin Dose 2 UNIT; Start 01/26/19 at 21:00 Heparin Sodium (Porcine) (Heparin (5000 Units/1ml)) 5,000 unit BID SC Last administered on 02/15/19 08:35; Admin Dose 5,000 UNIT; Start 01/26/19 at 21:00 Morphine Sulfate (morphine) 2 mg Q4H PRN IV SEVERE PAIN LEVEL 7-10 Last administered on 02/14/19 08:12; Admin Dose 2 MG; Start 01/26/19 at 20:30 Miscellaneous Information 1 ea NOTE XX ; Start 01/26/19 at 23:45 Glucose (Glutose) 15 gm Q15M PRN PO DECREASED GLUCOSE; Start 01/26/19 at 23:45 Glucose (Glutose) 22.5 gm Q15M PRN PO DECREASED GLUCOSE; Start 01/26/19 at 23:45 Dextrose (D50w Syringe) 25 ml Q15M PRN IV DECREASED GLUCOSE Last administered on 01/28/19at 07:50; Admin Dose 25 ML; Start 01/26/19 at 23:45 Dextrose (D50w Syringe) 50 ml Q15M PRN IV DECREASED GLUCOSE; Start 01/26/19 at 23:45 Glucagon (Glucagen) 1 mg Q15M PRN IM DECREASED GLUCOSE; Start 01/26/19 at 23:45 Glucose (Glutose) 15 gm Q15M PRN BUCCAL DECREASED GLUCOSE; Start 01/26/19 at 23:45 Alteplase, Recombinant (Cathflo (Activase)) 2 mg MAY REPEAT X1 PRN CATHETER IF CATHETER REMAINS OCCULUDED Last administered on 02/02/19 23:09; Admin Dose 2 MG; Start 01/27/19 at 07:00 Tramadol HCl (Ultram) 50 mg Q6H PO Last administered on 02/15/19 08:23; Admin Dose 50 MG; Start 01/27/19 at 08:00 Collagenase (Santyl) 1 applic DAILY TOP Last administered on 02/15/19 08:22; Admin Dose 1 APPLIC; Start 01/28/19 at 09:00 Lorazepam (Ativan) 1 mg Q8H PRN PO ANXIETY; Start 01/27/19 at 22:30 Mupirocin (Bactroban) 1 applic BID TOP Last administered on 02/15/19 08:26; Admin Dose 1 APPLIC; Start 01/28/19 at 21:00 Megestrol Acetate (Megace Susp) 400 mg DAILY PO Last administered on 02/12/19 09:34; Admin Dose 400 MG; Start 01/30/19 at 14:30 Lactulose (Enulose) 20 gm Q6H PRN PO CONSTIPATION; Start 02/04/19 at 11:00 Hydralazine HCl (Apresoline) 100 mg Q8 PO Last administered on 02/15/19 05:50; Admin Dose 100 MG; Start 02/04/19 at 14:00 Metoprolol Tartrate (Lopressor) 50 mg BID PO Last administered on 02/15/19 08:24; Admin Dose 50 MG; Start 02/08/19 at 21:00 Ondansetron HCl (Zofran Inj) 4 mg Q6H PRN IV NAUSEA AND/OR VOMITING Last administered on 02/13/19 12:09; Admin Dose 4 MG; Start 02/09/19 at 12:30 Meropenem/Sodium Chloride 50 ml @ 100 mls/hr Q12 IVPB Last administered on 02/15/19 08:25; Admin Dose 100 MLS/HR; Start 02/10/19 at 21:00 Amikacin Sulfate (Amikacin Iv Per Pharmacy) AMIKACIN PER PHARMACY NOTE XX ; Start 02/11/19 at 12:30 Amikacin Sulfate 300 mg/Sodium Chloride 101.2 ml @ 102 mls/hr AFTER DIALYSIS IVPB Last administered on 02/13/19 05:38; Admin Dose 102 MLS/HR; Start 02/11/19 at 14:30 Epoetin Indra-epbx (Retacrit (Esrd)) 8,000 unit TuThSa@1700 SC Last administered on 02/13/19 17:07; Admin Dose 8,000 UNIT; Start 02/11/19 at 18:09 Amlodipine Besylate (Norvasc) 2.5 mg DAILY PO Last administered on 02/15/19 08:22; Admin Dose 2.5 MG; Start 02/14/19 at 09:00 Sodium Hypochlorite (Dakin'S (Dilute )) 1 applic Q12 IRR Last administered on 02/15/19 08:25; Admin Dose 1 APPLIC; Start 02/14/19 at 09:00 Daptomycin 315 mg/ Sodium Chloride 100 ml @ 200 mls/hr Q48H IVPB ; Start 02/15/19 at 17:00 KENA PHIPPS DPShanelle Feb 15, 2019 11:39
--- NOTE | 2019-02-15 12:08 | CONS ---
Assessment/Plan Assessment/Plan Assessment/Plan (Daily) - ESRD on Hemodialysis - Anemia of Chronic Disease - DM / DM Nephropathy - CAD / CHF - Hypoalbuminia - Hypothyroid - Failure to thrive - Leukocytosis - Non healing wound PLAN: Bedside dialysis Aim for UD ~ 1-2 liter as tolerates IV Antibiotics Local wound care Follow up on H/H ( on long acting EPO as out patient ) High protein diet / Supplements Had HD yesterday Plan for HD next 01/29/2019 Monitor H/H High Protein diet More awake & alert Poor appetite with low albumin High protein diet Add Nepro supplement Add Megace Increase EPO Check IRON Bedside dialysis 01/29/2019 using 3K+ bath today Post debridement of the sacral wound Next HD Friday Increase protein Diet Continue with planned dialysis on Encourage increase protein intake + supplement Follow up with H/H Events noted Bedside dialysis Aim for 1-2 liter off EPOGEN for anemia Follow up with IRON Levels Consultation Date/Type/Reason Admit Date/Time Jan 26, 2019 at 17:32 Initial Consult Date 01/27/19 Type of Consult - Nephrology ( Dialysis Dependent ) Requesting Provider: ALEXUS VALENCIA MD Date/Time of Note DATE: 02/15/19 TIME: 12:06 24 HR Interval Summary Constitutional: no complaints, improved Exam/Review of Systems Exam Vitals Vital Signs Date Temp Pulse Resp B/P (MAP) Pulse Ox O2 O2 Flow FiO2 Time Delivery Rate 02/15/19 98.6 68 18 132/61 96 Nasal 08:53 (84) Cannula 02/15/19 3.0 02:32 Intake and Output 02/14/19 02/14/19 02/15/19 1515:00 23:00 07:00 IntakeIntake Total 350 ml 150 ml 120 ml BalanceBalance 350 ml 150 ml 120 ml Constitutional: alert, oriented Psych: no complaints Head: normocephalic Eyes: nl conjunctiva Neck: supple Respiratory: crackles/rales Cardiovascular: regular rate and rhythm, systolic murmur Gastrointestinal: soft Results Result Diagram: 02/13/19 0530 02/13/19 0530 Results 24hrs Laboratory Tests Test 02/14/19 12:25 02/14/19 17:49 02/14/19 21:23 02/15/19 05:48 Bedside Glucose 115 120 114 Creatine Kinase < 20 L Test 02/15/19 08:02 02/15/19 12:02 Bedside Glucose 100 103 Medications Medication Current Medications Amiodarone HCl (Cordarone) 200 mg DAILY PO Last administered on 02/15/19at 08:24; Admin Dose 200 MG; Start 01/27/19 at 09:00 Ascorbic Acid (Vitamin C) 500 mg DAILY PO Last administered on 02/15/19at 08:22; Admin Dose 500 MG; Start 01/27/19 at 09:00 Atorvastatin Calcium (Lipitor) 20 mg QHS PO Last administered on 02/14/19at 21:24; Admin Dose 20 MG; Start 01/26/19 at 21:00 Bisacodyl (Dulcolax) 10 mg Q24H PRN PO CONSTIPATION; Start 01/26/19 at 20:00 Citalopram Hydrobromide (Celexa) 20 mg DAILY PO Last administered on 02/15/19 08:22; Admin Dose 20 MG; Start 01/27/19 at 09:00 Docusate Sodium (Colace) 100 mg BID PO Last administered on 02/15/19 08:22; Admin Dose 100 MG; Start 01/26/19 at 21:00 Folic Acid (Folic Acid) 1 mg DAILY PO Last administered on 02/15/19 08:23; Admin Dose 1 MG; Start 01/27/19 at 09:00 Levothyroxine Sodium (Synthroid) 100 mcg BEFORE BREAKFAST PO Last administered on 02/15/19 05:49; Admin Dose 100 MCG; Start 01/27/19 at 07:00 Metoclopramide HCl (Reglan) 5 mg BEFORE MEALS PO Last administered on 02/15/19 08:29; Admin Dose 5 MG; Start 01/27/19 at 07:30 Multivit/Ca Carb/ B Cmplx/FA/Prenat (Wendi-Cathi) 1 tab DAILY PO Last administered on 02/15/19 08:23; Admin Dose 1 TAB; Start 01/27/19 at 09:00 Ondansetron HCl (Zofran Tab) 4 mg Q6H PRN PO NAUSEA AND/OR VOMITING Last administered on 01/30/19 10:43; Admin Dose 4 MG; Start 01/26/19 at 20:00 Pantoprazole (Protonix Tab) 40 mg DAILY PO Last administered on 02/15/19 08:26; Admin Dose 40 MG; Start 01/27/19 at 09:00 Polyethylene Glycol (Miralax) 17 gm DAILY PO Last administered on 02/09/19 08:40; Admin Dose 17 GM; Start 01/27/19 at 09:00 Prednisolone Acetate (Pred-Forte 1%) 1 drop BID RIGHT EYE Last administered on 02/15/19 08:26; Admin Dose 1 DROP; Start 01/26/19 at 21:00 Zinc Sulfate (Zinc Sulfate) 220 mg DAILY PO Last administered on 02/15/19 08:2 2; Admin Dose 220 MG; Start 01/27/19 at 09:00 Insulin Aspart (Novolog Insulin Pen) NOVOLOG *MODERATE* ALGORITHM WITH MEALS BEDTIME SC Last administered on 02/04/19 17:37; Admin Dose 2 UNIT; Start 01/26/19 at 21:00 Heparin Sodium (Porcine) (Heparin (5000 Units/1ml)) 5,000 unit BID SC Last administered on 02/15/19 08:35; Admin Dose 5,000 UNIT; Start 01/26/19 at 21:00 Morphine Sulfate (morphine) 2 mg Q4H PRN IV SEVERE PAIN LEVEL 7-10 Last administered on 02/14/19 08:12; Admin Dose 2 MG; Start 01/26/19 at 20:30 Miscellaneous Information 1 ea NOTE XX ; Start 01/26/19 at 23:45 Glucose (Glutose) 15 gm Q15M PRN PO DECREASED GLUCOSE; Start 01/26/19 at 23:45 Glucose (Glutose) 22.5 gm Q15M PRN PO DECREASED GLUCOSE; Start 01/26/19 at 23:45 Dextrose (D50w Syringe) 25 ml Q15M PRN IV DECREASED GLUCOSE Last administered on 01/28/19 07:50; Admin Dose 25 ML; Start 01/26/19 at 23:45 Dextrose (D50w Syringe) 50 ml Q15M PRN IV DECREASED GLUCOSE; Start 01/26/19 at 23:45 Glucagon (Glucagen) 1 mg Q15M PRN IM DECREASED GLUCOSE; Start 01/26/19 at 23:45 Glucose (Glutose) 15 gm Q15M PRN BUCCAL DECREASED GLUCOSE; Start 01/26/19 at 23:45 Alteplase, Recombinant (Cathflo (Activase)) 2 mg MAY REPEAT X1 PRN CATHETER IF CATHETER REMAINS OCCULUDED Last administered on 02/02/19 23:09; Admin Dose 2 MG; Start 01/27/19 at 07:00 Tramadol HCl (Ultram) 50 mg Q6H PO Last administered on 02/15/19 08:23; Admin Dose 50 MG; Start 01/27/19 at 08:00 Collagenase (Santyl) 1 applic DAILY TOP Last administered on 02/15/19 08:22; Admin Dose 1 APPLIC; Start 01/28/19 at 09:00 Lorazepam (Ativan) 1 mg Q8H PRN PO ANXIETY; Start 01/27/19 at 22:30 Mupirocin (Bactroban) 1 applic BID TOP Last administered on 02/15/19 08:26; Admin Dose 1 APPLIC; Start 01/28/19 at 21:00 Megestrol Acetate (Megace Susp) 400 mg DAILY PO Last administered on 02/12/19 09:34; Admin Dose 400 MG; Start 01/30/19 at 14:30 Lactulose (Enulose) 20 gm Q6H PRN PO CONSTIPATION; Start 02/04/19 at 11:00 Hydralazine HCl (Apresoline) 100 mg Q8 PO Last administered on 02/15/19 05:50; Admin Dose 100 MG; Start 02/04/19 at 14:00 Metoprolol Tartrate (Lopressor) 50 mg BID PO Last administered on 02/15/19 08:24; Admin Dose 50 MG; Start 02/08/19 at 21:00 Ondansetron HCl (Zofran Inj) 4 mg Q6H PRN IV NAUSEA AND/OR VOMITING Last administered on 02/13/19 12:09; Admin Dose 4 MG; Start 02/09/19 at 12:30 Meropenem/Sodium Chloride 50 ml @ 100 mls/hr Q12 IVPB Last administered on 02/15/19 08:25; Admin Dose 100 MLS/HR; Start 02/10/19 at 21:00 Amikacin Sulfate (Amikacin Iv Per Pharmacy) AMIKACIN PER PHARMACY NOTE XX ; Start 02/11/19 at 12:30 Amikacin Sulfate 300 mg/Sodium Chloride 101.2 ml @ 102 mls/hr AFTER DIALYSIS IVPB Last administered on 02/13/19 05:38; Admin Dose 102 MLS/HR; Start 02/11/19 at 14:30 Epoetin Indra-epbx (Retacrit (Esrd)) 8,000 unit TuThSa@1700 SC Last administered on 02/13/19 17:07; Admin Dose 8,000 UNIT; Start 02/11/19 at 18:09 Amlodipine Besylate (Norvasc) 2.5 mg DAILY PO Last administered on 02/15/19 08:22; Admin Dose 2.5 MG; Start 02/14/19 at 09:00 Sodium Hypochlorite (Dakin'S (Dilute )) 1 applic Q12 IRR Last administered on 4/8/19at 08:25; Admin Dose 1 APPLIC; Start 02/14/19 at 09:00 Daptomycin 315 mg/ Sodium Chloride 100 ml @ 200 mls/hr Q48H IVPB ; Start 02/15/19 at 17:00 ANIBAL ALMANZAR MD Feb 15, 2019 12:08
--- NOTE | 2019-02-15 12:24 | PN ---
Date/Time of Note Date/Time of Note DATE: 02/15/19 TIME: 12:21 Assessment/Plan Lines/Catheters IV Catheter Type (from Nrs): PICC Line [place] in Place (from Nrs): No Assessment/Plan Chief Complaint/Hosp Course 1. Sacral and bilateral ischial wounds: wnd cx noted; status post sacrum and right ischial debridement 01/29/19 -Further debridement as needed -Continue local care> Can follow with Dr. Sanchez as outpatient in wound clinic. -frequent turning and off-loading -low air loss mattress -vitamin c -short term zinc -optimize nutrition -Will need podiatry consult for heel wound 2. Abdominal pain and generalized weakness: Status post EGD: Gastritis; no acute abd pain -further w/u per med team -PPI 3. ESRD -limit nephrotoxins -HD per renal -renally dose meds 4. Anemia: -monitor and transfuse as needed 5. Diabetes with episodes of hypoglycemia; no hypoglycemia episodes-sugar control much improved -glucose management 6. Hypothyroidism -med mgt 7. Pleural effusions: Persistent -Pulmonary consult -fluid management 8. Leukocytosis: normalized -As above Thank you Subjective 24 Hr Interval Summary WBC normalized. No fevers, chills, sob, congested cough, cp, palpitations, hoffman, dizziness, nausea, vomiting, diarrhea, dysuria. Exam/Review of Systems Vital Signs Vitals Vital Signs Date Temp Pulse Resp B/P (MAP) Pulse Ox O2 O2 Flow FiO2 Time Delivery Rate 02/15/19 98.6 68 18 132/61 96 Nasal 08:53 (84) Cannula 02/15/19 3.0 02:32 Intake and Output 02/14/19 02/14/19 02/15/19 1515:00 23:00 07:00 IntakeIntake Total 350 ml 150 ml 120 ml BalanceBalance 350 ml 150 ml 120 ml Exam Free Text/Dictation Constitutional: alert, oriented, obese Psych: normal mood Head: normocephalic, atraumatic Eyes: nl conjunctiva, EOMI, nl lids, nl sclera ENMT: nl external ears & nose, nl lips & teeth, mucosa pink and moist Neck: supple, non-tender; No jvd Respiratory: normal air movement; No congested cough, No labored breathing Cardiovascular: regular rate and rhythm, nl pulses; No edema Gastrointestinal: soft, non-tender, distended Genitourinary - Female: nl external genitalia Musculoskeletal: nl extremities to inspection, nl gait and stance Extremities: normal pulses Neurological: nl mental status, nl speech, nl strength Skin: other (sacral: Packed, no odor, minimal periwound erythema, min slough; right ischium: Packed, improved odor; left ischium: unstageable); No rash or lesions Results Result Diagram: 02/13/19 0530 02/13/19 0530 ALFREDO SANCHEZ MD Feb 15, 2019 12:24
--- NOTE | 2019-02-15 13:30 | CONS ---
Assessment/Plan Assessment/Plan Hospital Course (Demo Recall) No acute events, no fevers Microbiology sacral wound culture grew Proteus, E. coli ESBL, VRE, and MRSA Antimicrobials: Amikacin, Zyvox Merrem PHYSICAL EXAMINATION: GENERAL: This is a fragile, wasted, well-developed, elderly woman, who is in no distress. HEENT: Head atraumatic, normocephalic. Sclerae anicteric. The patient has right eye blindness. Buccal mucosa pale, dry. NECK: Supple. CHEST: Rise symmetrical. Breath sounds diminished to bases. HEART: S1, S2. ABDOMEN: Obese, soft, bowel tones present. EXTREMITIES: Bilateral edema. SKIN: The patient has a large necrotic wounds on bilateral buttocks, left buttock and left posterior thigh area , also, necrotic wound. The patient has pressure sores on her left heel as well. Assessment: 1. Multiple necrotic infected wounds, s/p debridement 2. End-stage renal disease, hemodialysis dependent 3. Diabetes 4. Hypertension 5. MRSA colonization 6. HCAP 7. Gastroparesis 8. UTI==> Proteus Plan: Remains stable, continue wound care per surgery, dc abx and observe Consultation Date/Type/Reason Admit Date/Time Jan 26, 2019 at 17:32 Initial Consult Date 01/27/19 Type of Consult id Requesting Provider: ALEXUS VALENCIA MD Date/Time of Note DATE: 02/15/19 TIME: 13:29 Exam/Review of Systems Exam Vitals Vital Signs Date Temp Pulse Resp B/P (MAP) Pulse Ox O2 O2 Flow FiO2 Time Delivery Rate 02/15/19 Nasal 2.0 12:29 Cannula 02/15/19 98.6 68 18 132/61 96 08:53 (84) Intake and Output 02/14/19 02/14/19 02/15/19 1414:59 22:59 06:59 IntakeIntake Total 350 ml 150 ml 120 ml BalanceBalance 350 ml 150 ml 120 ml Results Result Diagram: 02/13/1930 02/13/19 0530 Results 24hrs Laboratory Tests Test 02/14/19 17:49 02/14/19 21:23 02/15/19 05:48 02/15/19 08:02 Bedside Glucose 120 114 100 Creatine Kinase < 20 L Test 02/15/19 12:02 Bedside Glucose 103 Medications Medication Current Medications Amiodarone HCl (Cordarone) 200 mg DAILY PO Last administered on 02/15/19 08:24; Admin Dose 200 MG; Start 01/27/19 at 09:00 Ascorbic Acid (Vitamin C) 500 mg DAILY PO Last administered on 02/15/19 08:22; Admin Dose 500 MG; Start 01/27/19 at 09:00 Atorvastatin Calcium (Lipitor) 20 mg QHS PO Last administered on 02/14/19 21:24; Admin Dose 20 MG; Start 01/26/19 at 21:00 Bisacodyl (Dulcolax) 10 mg Q24H PRN PO CONSTIPATION; Start 01/26/19 at 20:00 Citalopram Hydrobromide (Celexa) 20 mg DAILY PO Last administered on 02/15/19 08:22; Admin Dose 20 MG; Start 01/27/19 at 09:00 Docusate Sodium (Colace) 100 mg BID PO Last administered on 02/15/19 08:22; Admin Dose 100 MG; Start 01/26/19 at 21:00 Folic Acid (Folic Acid) 1 mg DAILY PO Last administered on 02/15/19 08:23; Admin Dose 1 MG; Start 01/27/19 at 09:00 Levothyroxine Sodium (Synthroid) 100 mcg BEFORE BREAKFAST PO Last administered on 02/15/19 05:49; Admin Dose 100 MCG; Start 01/27/19 at 07:00 Metoclopramide HCl (Reglan) 5 mg BEFORE MEALS PO Last administered on 02/15/19 12:10; Admin Dose 5 MG; Start 01/27/19 at 07:30 Multivit/Ca Carb/ B Cmplx/FA/Prenat (Wendi-Cathi) 1 tab DAILY PO Last administered on 02/15/19 08:23; Admin Dose 1 TAB; Start 01/27/19 at 09:00 Ondansetron HCl (Zofran Tab) 4 mg Q6H PRN PO NAUSEA AND/OR VOMITING Last administered on 01/30/19 10:43; Admin Dose 4 MG; Start 01/26/19 at 20:00 Pantoprazole (Protonix Tab) 40 mg DAILY PO Last administered on 02/15/19 08:26; Admin Dose 40 MG; Start 01/27/19 at 09:00 Polyethylene Glycol (Miralax) 17 gm DAILY PO Last administered on 02/09/19 08:40; Admin Dose 17 GM; Start 01/27/19 at 09:00 Prednisolone Acetate (Pred-Forte 1%) 1 drop BID RIGHT EYE Last administered on 02/15/19 08:26; Admin Dose 1 DROP; Start 01/26/19 at 21:00 Zinc Sulfate (Zinc Sulfate) 220 mg DAILY PO Last administered on 02/15/19 08:22; Admin Dose 220 MG; Start 01/27/19 at 09:00 Insulin Aspart (Novolog Insulin Pen) NOVOLOG *MODERATE* ALGORITHM WITH MEALS BEDTIME SC Last administered on 02/04/19 17:37; Admin Dose 2 UNIT; Start 01/26/19 at 21:00 Heparin Sodium (Porcine) (Heparin (5000 Units/1ml)) 5,000 unit BID SC Last administered on 02/15/19 08:35; Admin Dose 5,000 UNIT; Start 01/26/19 at 21:00 Morphine Sulfate (morphine) 2 mg Q4H PRN IV SEVERE PAIN LEVEL 7-10 Last administered on 02/14/19 08:12; Admin Dose 2 MG; Start 01/26/19 at 20:30 Miscellaneous Information 1 ea NOTE XX ; Start 01/26/19 at 23:45 Glucose (Glutose) 15 gm Q15M PRN PO DECREASED GLUCOSE; Start 01/26/19 at 23:45 Glucose (Glutose) 22.5 gm Q15M PRN PO DECREASED GLUCOSE; Start 01/26/19 at 23:45 Dextrose (D50w Syringe) 25 ml Q15M PRN IV DECREASED GLUCOSE Last administered on 01/28/19 07:50; Admin Dose 25 ML; Start 01/26/19 at 23:45 Dextrose (D50w Syringe) 50 ml Q15M PRN IV DECREASED GLUCOSE; Start 01/26/19 at 23:45 Glucagon (Glucagen) 1 mg Q15M PRN IM DECREASED GLUCOSE; Start 01/26/19 at 23:45 Glucose (Glutose) 15 gm Q15M PRN BUCCAL DECREASED GLUCOSE; Start 01/26/19 at 23:45 Alteplase, Recombinant (Cathflo (Activase)) 2 mg MAY REPEAT X1 PRN CATHETER IF CATHETER REMAINS OCCULUDED Last administered on 02/02/19 23:09; Admin Dose 2 MG; Start 01/27/19 at 07:00 Tramadol HCl (Ultram) 50 mg Q6H PO Last administered on 02/15/19 08:23; Admin Dose 50 MG; Start 01/27/19 at 08:00 Collagenase (Santyl) 1 applic DAILY TOP Last administered on 02/15/19 08:22; Admin Dose 1 APPLIC; Start 01/28/19 at 09:00 Lorazepam (Ativan) 1 mg Q8H PRN PO ANXIETY; Start 01/27/19 at 22:30 Mupirocin (Bactroban) 1 applic BID TOP Last administered on 02/15/19 08:26; Admin Dose 1 APPLIC; Start 01/28/19 at 21:00 Megestrol Acetate (Megace Susp) 400 mg DAILY PO Last administered on 02/12/19 09:34; Admin Dose 400 MG; Start 01/30/19 at 14:30 Lactulose (Enulose) 20 gm Q6H PRN PO CONSTIPATION; Start 02/04/19 at 11:00 Hydralazine HCl (Apresoline) 100 mg Q8 PO Last administered on 02/15/19 05:50; Admin Dose 100 MG; Start 02/04/19 at 14:00 Metoprolol Tartrate (Lopressor) 50 mg BID PO Last administered on 02/15/19 08:24; Admin Dose 50 MG; Start 02/08/19 at 21:00 Ondansetron HCl (Zofran Inj) 4 mg Q6H PRN IV NAUSEA AND/OR VOMITING Last administered on 02/13/19 12:09; Admin Dose 4 MG; Start 02/09/19 at 12:30 Meropenem/Sodium Chloride 50 ml @ 100 mls/hr Q12 IVPB Last administered on 02/15/19 08:25; Admin Dose 100 MLS/HR; Start 02/10/19 at 21:00 Amikacin Sulfate (Amikacin Iv Per Pharmacy) AMIKACIN PER PHARMACY NOTE XX ; Start 02/11/19 at 12:30 Amikacin Sulfate 300 mg/Sodium Chloride 101.2 ml @ 102 mls/hr AFTER DIALYSIS IVPB Last administered on 02/13/19 05:38; Admin Dose 102 MLS/HR; Start 02/11/19 at 14:30 Epoetin Indra-epbx (Retacrit (Esrd)) 8,000 unit TuThSa@1700 SC Last administered on 02/13/19at 17:07; Admin Dose 8,000 UNIT; Start 02/11/19 at 18:09 Amlodipine Besylate (Norvasc) 2.5 mg DAILY PO Last administered on 02/15/19at 08:22; Admin Dose 2.5 MG; Start 02/14/19 at 09:00 Sodium Hypochlorite (Dakin'S (Dilute )) 1 applic Q12 IRR Last administered on 02/15/19at 08:25; Admin Dose 1 APPLIC; Start 02/14/19 at 09:00 Daptomycin 315 mg/ Sodium Chloride 100 ml @ 200 mls/hr Q48H IVPB ; Start 02/15/19 at 17:00 ALYX NAVARRO NP Feb 15, 2019 13:30
--- NOTE | 2019-02-15 16:53 | PN ---
Date/Time of Note Date/Time of Note DATE: 02/15/19 TIME: 16:50 Assessment/Plan VTE Prophylaxis Risk score (from Ns)>0 risk: 9 SCD applied (from Ns): Yes Pharmacological prophylaxis: heparin Lines/Catheters IV Catheter Type (from Nrsg): PICC Line Central line still needed: Yes Urinary Cath still in place: No Assessment/Plan Hospital Course Patient is undergoing left foot x-ray and vascular study, patient is lethargic but easily arousable, continue to follow-up podiatry recommendation. Assessment/Plan -Sacral and bilateral ischial infected wounds. Status post sacrum and right ischial debridement 01/29/19. Dr. Almanza is following in general surgery consultation. Completed bax. Dr. Guevara is following in infection disease consultation. -HCAP with Left lower lobe infiltrate -Abdominal pain. Status post EGD with notion of gastritis. Continue PPI. Status post a colonoscopy with notion of hemorrhoids. -Moderate bilateral pleural effusion -Hemodialysis dependent end-stage renal disease. Continue on hemodialysis. Dr. Mcdaniel is following from nephrology standpoint. -Diabetes mellitus type 2. Continue Levemir and NovoLog per mild algorithm sliding scale. -Hypothyroidism, continue levothyroxine -Hypertension. -Hyperlipidemia, continue statin -Anemia -Left heel decubitus ulcer Stage 3, S/p evaluation by Dr Díaz in podiarty consultation. Pt refused debridement, continue current wound care, off loading. -MRSA of nares colonization. Contact isolation. -Right eye blindness. Further recommendations based on clinical course. Plan of care discussed with Dr. Mandel. Result Diagram: 02/13/19 0530 02/13/19 0530 Results 24hrs Laboratory Tests Test 02/14/19 17:49 02/14/19 21:23 02/15/19 05:48 02/15/19 08:02 Bedside Glucose 120 114 100 Creatine Kinase < 20 L Test 02/15/19 12:02 Bedside Glucose 103 Exam/Review of Systems Exam Vitals Vital Signs Date Temp Pulse Resp B/P (MAP) Pulse Ox O2 O2 Flow FiO2 Time Delivery Rate 02/15/19 65 16:12 02/15/19 98.5 18 106/52 96 Room Air 15:50 (70) 02/15/19 2.0 13:30 Intake and Output 02/14/19 02/14/19 02/15/19 1515:00 23:00 07:00 IntakeIntake Total 350 ml 150 ml 120 ml BalanceBalance 350 ml 150 ml 120 ml Exam Constitutional: alert, oriented, lethargic Eyes: other (Right eye blindness) Respiratory: clear to auscultation Cardiovascular: regular rate and rhythm Gastrointestinal: soft, non-tender Musculoskeletal: nl extremities to inspection Extremities: normal pulses, edema, other (Right upper extremity AV fistula) Neurological: nl mental status Results Results 24hrs Laboratory Tests Test 02/14/19 17:49 02/14/19 21:23 02/15/19 05:48 02/15/19 08:02 Bedside Glucose 120 114 100 Creatine Kinase < 20 L Test 02/15/19 12:02 Bedside Glucose 103 Medications Medication Current Medications Amiodarone HCl (Cordarone) 200 mg DAILY PO Last administered on 02/15/19 08:24; Admin Dose 200 MG; Start 01/27/19 at 09:00 Ascorbic Acid (Vitamin C) 500 mg DAILY PO Last administered on 02/15/19 08:22; Admin Dose 500 MG; Start 01/27/19 at 09:00 Atorvastatin Calcium (Lipitor) 20 mg QHS PO Last administered on 02/14/19 21:24; Admin Dose 20 MG; Start 01/26/19 at 21:00 Bisacodyl (Dulcolax) 10 mg Q24H PRN PO CONSTIPATION; Start 01/26/19 at 20:00 Citalopram Hydrobromide (Celexa) 20 mg DAILY PO Last administered on 02/15/19 08:22; Admin Dose 20 MG; Start 01/27/19 at 09:00 Docusate Sodium (Colace) 100 mg BID PO Last administered on 02/15/19 08:22; Admin Dose 100 MG; Start 01/26/19 at 21:00 Folic Acid (Folic Acid) 1 mg DAILY PO Last administered on 02/15/19 08:23; Admin Dose 1 MG; Start 01/27/19 at 09:00 Levothyroxine Sodium (Synthroid) 100 mcg BEFORE BREAKFAST PO Last administered on 02/15/19 05:49; Admin Dose 100 MCG; Start 01/27/19 at 07:00 Metoclopramide HCl (Reglan) 5 mg BEFORE MEALS PO Last administered on 02/15/19 12:10; Admin Dose 5 MG; Start 01/27/19 at 07:30 Multivit/Ca Carb/ B Cmplx/FA/Prenat (Wendi-Cathi) 1 tab DAILY PO Last administere d on 02/15/19 08:23; Admin Dose 1 TAB; Start 01/27/19 at 09:00 Ondansetron HCl (Zofran Tab) 4 mg Q6H PRN PO NAUSEA AND/OR VOMITING Last administered on 01/30/19 10:43; Admin Dose 4 MG; Start 01/26/19 at 20:00 Pantoprazole (Protonix Tab) 40 mg DAILY PO Last administered on 02/15/19 08:26; Admin Dose 40 MG; Start 01/27/19 at 09:00 Polyethylene Glycol (Miralax) 17 gm DAILY PO Last administered on 02/09/19 08:40; Admin Dose 17 GM; Start 01/27/19 at 09:00 Prednisolone Acetate (Pred-Forte 1%) 1 drop BID RIGHT EYE Last administered on 02/15/19 08:26; Admin Dose 1 DROP; Start 01/26/19 at 21:00 Zinc Sulfate (Zinc Sulfate) 220 mg DAILY PO Last administered on 02/15/19 08:22; Admin Dose 220 MG; Start 01/27/19 at 09:00 Insulin Aspart (Novolog Insulin Pen) NOVOLOG *MODERATE* ALGORITHM WITH MEALS BEDTIME SC Last administered on 02/04/19 17:37; Admin Dose 2 UNIT; Start 01/26/19 at 21:00 Heparin Sodium (Porcine) (Heparin (5000 Units/1ml)) 5,000 unit BID SC Last administered on 02/15/19 08:35; Admin Dose 5,000 UNIT; Start 01/26/19 at 21:00 Morphine Sulfate (morphine) 2 mg Q4H PRN IV SEVERE PAIN LEVEL 7-10 Last administered on 02/14/19 08:12; Admin Dose 2 MG; Start 01/26/19 at 20:30 Miscellaneous Information 1 ea NOTE XX ; Start 01/26/19 at 23:45 Glucose (Glutose) 15 gm Q15M PRN PO DECREASED GLUCOSE; Start 01/26/19 at 23:45 Glucose (Glutose) 22.5 gm Q15M PRN PO DECREASED GLUCOSE; Start 01/26/19 at 23:45 Dextrose (D50w Syringe) 25 ml Q15M PRN IV DECREASED GLUCOSE Last administered on 01/28/19at 07:50; Admin Dose 25 ML; Start 01/26/19 at 23:45 Dextrose (D50w Syringe) 50 ml Q15M PRN IV DECREASED GLUCOSE; Start 01/26/19 at 23:45 Glucagon (Glucagen) 1 mg Q15M PRN IM DECREASED GLUCOSE; Start 01/26/19 at 23:45 Glucose (Glutose) 15 gm Q15M PRN BUCCAL DECREASED GLUCOSE; Start 01/26/19 at 23:45 Alteplase, Recombinant (Cathflo (Activase)) 2 mg MAY REPEAT X1 PRN CATHETER IF CATHETER REMAINS OCCULUDED Last administered on 02/02/19 23:09; Admin Dose 2 MG; Start 01/27/19 at 07:00 Tramadol HCl (Ultram) 50 mg Q6H PO Last administered on 02/15/19 08:23; Admin Dose 50 MG; Start 01/27/19 at 08:00 Collagenase (Santyl) 1 applic DAILY TOP Last administered on 02/15/19 08:22; Admin Dose 1 APPLIC; Start 01/28/19 at 09:00 Lorazepam (Ativan) 1 mg Q8H PRN PO ANXIETY; Start 01/27/19 at 22:30 Megestrol Acetate (Megace Susp) 400 mg DAILY PO Last administered on 02/12/19 09:34; Admin Dose 400 MG; Start 01/30/19 at 14:30 Lactulose (Enulose) 20 gm Q6H PRN PO CONSTIPATION; Start 02/04/19 at 11:00 Hydralazine HCl (Apresoline) 100 mg Q8 PO Last administered on 02/15/19 05:50; Admin Dose 100 MG; Start 02/04/19 at 14:00 Metoprolol Tartrate (Lopressor) 50 mg BID PO Last administered on 02/15/19 08:24; Admin Dose 50 MG; Start 02/08/19 at 21:00 Ondansetron HCl (Zofran Inj) 4 mg Q6H PRN IV NAUSEA AND/OR VOMITING Last administered on 02/13/19 12:09; Admin Dose 4 MG; Start 02/09/19 at 12:30 Epoetin Indra-epbx (Retacrit (Esrd)) 8,000 unit TuThSa@1700 SC Last administered on 02/13/19at 17:07; Admin Dose 8,000 UNIT; Start 02/11/19 at 18:09 Amlodipine Besylate (Norvasc) 2.5 mg DAILY PO Last administered on 02/15/19 08:22; Admin Dose 2.5 MG; Start 02/14/19 at 09:00 Sodium Hypochlorite (Dakin'S (Dilute )) 1 applic Q12 IRR Last administered on 02/15/19at 08:25; Admin Dose 1 APPLIC; Start 02/14/19 at 09:00 SIN IZAGUIRRE Feb 15, 2019 16:53
[2019-02-15] MEDS ORDERED: DAPTOMYCIN IVPB SCH (17:00)
[2019-02-15] MEDS ORDERED: SOD CHLORIDE 0.9% IVPB SCH (17:00)
--- NOTE | 2019-02-15 17:52 | CONS ---
Assessment/Plan Assessment/Plan Hospital Course (Demo Recall) IMPRESSION: 1. Preop evaluation. The patient to undergo EGD whose 2D echo I just read revealing EF lower limits of normal, approximately 50% with no significant contraindicated valvular lesions and negative troponin x1 since admit, patient is okay to proceed at a moderate cardiovascular risk. Now post-op s/p endoscopy and debridement of decub ulcer 2. Congestive heart failure, diastolic acute on chronic. 3. Hypertension. 4. Cardiac arrhythmia, on amiodarone, in sinus rhythm by EKG. 5. Hypothyroidism. 6. Diabetes mellitus. 7. Nausea and vomiting. 8. Generalized weakness. 9. Decubitus ulcers s/p debridement 10. Anemia. 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 12.CKD on HD Recc: -Tele -Contineu BB/hydralazine/CCB and follow BP with possible need to decrease doses -continue statin -Continue abx's and f/u cx data per ID -local wound care -HD for volume removal Consultation Date/Type/Reason Admit Date/Time Jan 26, 2019 at 17:32 Initial Consult Date 01/27/19 Type of Consult Cardiology Reason for Consultation CHF Requesting Provider: ALEXUS VALENCIA MD Date/Time of Note DATE: 02/15/19 TIME: 17:50 Exam/Review of Systems Vital Signs Vitals Vital Signs Date Temp Pulse Resp B/P (MAP) Pulse Ox O2 O2 Flow FiO2 Time Delivery Rate 02/15/19 64 16:40 02/15/19 98.5 18 106/52 96 Room Air 15:50 (70) 02/15/19 2.0 13:30 Intake and Output 02/14/19 02/14/19 02/15/19 1414:59 22:59 06:59 IntakeIntake Total 350 ml 150 ml 120 ml BalanceBalance 350 ml 150 ml 120 ml Exam Exam Review of Systems: CONSTITUTIONAL: No fevers, chills. PULMONARY: No sob CARDIOVASCULAR: No chest pain/palpitations GASTROINTESTINAL: No nausea/vomiting. GENITOURINARY: No hematuria/dysuria. MUSCULOSKELETAL: No myagias/arthalgias. PSYCHIATRIC: The patient denies depression. NEUROLOGIC: No weakness Constitutional: alert Psych: no complaints Head: normocephalic ENMT: mucosa pink and moist Neck: supple, jvd (9 mcm water) Respiratory: diminished breath sounds Cardiovascular: regular rate and rhythm Gastrointestinal: soft, non-tender Musculoskeletal: muscle tone (normal) Extremities: edema (none) Neurological: other (No focal deficits) Labs Result Diagram: 02/13/1930 02/13/1930 Results 24hrs Laboratory Tests Test 02/14/19 21:23 02/15/19 05:48 02/15/19 08:02 02/15/19 12:02 Bedside Glucose 114 100 103 Creatine Kinase < 20 L Test 02/15/19 17:16 Bedside Glucose 99 Medications Medications Current Medications Amiodarone HCl (Cordarone) 200 mg DAILY PO Last administered on 02/15/19 08:24; Admin Dose 200 MG; Start 01/27/19 at 09:00 Ascorbic Acid (Vitamin C) 500 mg DAILY PO Last administered on 02/15/19 08:22; Admin Dose 500 MG; Start 01/27/19 at 09:00 Atorvastatin Calcium (Lipitor) 20 mg QHS PO Last administered on 02/14/19 21:24; Admin Dose 20 MG; Start 01/26/19 at 21:00 Bisacodyl (Dulcolax) 10 mg Q24H PRN PO CONSTIPATION; Start 01/26/19 at 20:00 Citalopram Hydrobromide (Celexa) 20 mg DAILY PO Last administered on 02/15/19 08:22; Admin Dose 20 MG; Start 01/27/19 at 09:00 Docusate Sodium (Colace) 100 mg BID PO Last administered on 02/15/19 08:22; Admin Dose 100 MG; Start 01/26/19 at 21:00 Folic Acid (Folic Acid) 1 mg DAILY PO Last administered on 02/15/19 08:23; Admin Dose 1 MG; Start 01/27/19 at 09:00 Levothyroxine Sodium (Synthroid) 100 mcg BEFORE BREAKFAST PO Last administered on 02/15/19 05:49; Admin Dose 100 MCG; Start 01/27/19 at 07:00 Metoclopramide HCl (Reglan) 5 mg BEFORE MEALS PO Last administered on 02/15/19 17:17; Admin Dose 5 MG; Start 01/27/19 at 07:30 Multivit/Ca Carb/ B Cmplx/FA/Prenat (Wendi-Cathi) 1 tab DAILY PO Last administered on 02/15/19 08:23; Admin Dose 1 TAB; Start 01/27/19 at 09:00 Ondansetron HCl (Zofran Tab) 4 mg Q6H PRN PO NAUSEA AND/OR VOMITING Last administered on 01/30/19 10:43; Admin Dose 4 MG; Start 01/26/19 at 20:00 Pantoprazole (Protonix Tab) 40 mg DAILY PO Last administered on 02/15/19 08:26; Admin Dose 40 MG; Start 01/27/19 at 09:00 Polyethylene Glycol (Miralax) 17 gm DAILY PO Last administered on 02/09/19 08:40; Admin Dose 17 GM; Start 01/27/19 at 09:00 Prednisolone Acetate (Pred-Forte 1%) 1 drop BID RIGHT EYE Last administered on 02/15/19 08:26; Admin Dose 1 DROP; Start 01/26/19 at 21:00 Zinc Sulfate (Zinc Sulfate) 220 mg DAILY PO Last administered on 02/15/19 08:22; Admin Dose 220 MG; Start 01/27/19 at 09:00 Insulin Aspart (Novolog Insulin Pen) NOVOLOG *MODERATE* ALGORITHM WITH MEALS BEDTIME SC Last administered on 02/04/19 17:37; Admin Dose 2 UNIT; Start 01/26/19 at 21:00 Heparin Sodium (Porcine) (Heparin (5000 Units/1ml)) 5,000 unit BID SC Last administered on 02/15/19 08:35; Admin Dose 5,000 UNIT; Start 01/26/19 at 21:00 Morphine Sulfate (morphine) 2 mg Q4H PRN IV SEVERE PAIN LEVEL 7-10 Last administered on 02/14/19 08:12; Admin Dose 2 MG; Start 01/26/19 at 20:30 Miscellaneous Information 1 ea NOTE XX ; Start 01/26/19 at 23:45 Glucose (Glutose) 15 gm Q15M PRN PO DECREASED GLUCOSE; Start 01/26/19 at 23:45 Glucose (Glutose) 22.5 gm Q15M PRN PO DECREASED GLUCOSE; Start 01/26/19 at 23:45 Dextrose (D50w Syringe) 25 ml Q15M PRN IV DECREASED GLUCOSE Last administered on 01/28/19 07:50; Admin Dose 25 ML; Start 01/26/19 at 23:45 Dextrose (D50w Syringe) 50 ml Q15M PRN IV DECREASED GLUCOSE; Start 01/26/19 at 23:45 Glucagon (Glucagen) 1 mg Q15M PRN IM DECREASED GLUCOSE; Start 01/26/19 at 23:45 Glucose (Glutose) 15 gm Q15M PRN BUCCAL DECREASED GLUCOSE; Start 01/26/19 at 23:45 Alteplase, Recombinant (Cathflo (Activase)) 2 mg MAY REPEAT X1 PRN CATHETER IF CATHETER REMAINS OCCULUDED Last administered on 02/02/19 23:09; Admin Dose 2 MG; Start 01/27/19 at 07:00 Tramadol HCl (Ultram) 50 mg Q6H PO Last administered on 02/15/19 08:23; Admin Dose 50 MG; Start 01/27/19 at 08:00 Collagenase (Santyl) 1 applic DAILY TOP Last administered on 02/15/19 08:22; Admin Dose 1 APPLIC; Start 01/28/19 at 09:00 Lorazepam (Ativan) 1 mg Q8H PRN PO ANXIETY; Start 01/27/19 at 22:30 Megestrol Acetate (Megace Susp) 400 mg DAILY PO Last administered on 02/12/19 09:34; Admin Dose 400 MG; Start 01/30/19 at 14:30 Lactulose (Enulose) 20 gm Q6H PRN PO CONSTIPATION; Start 02/04/19 at 11:00 Hydralazine HCl (Apresoline) 100 mg Q8 PO Last administered on 02/15/19 05:50; Admin Dose 100 MG; Start 02/04/19 at 14:00 Metoprolol Tartrate (Lopressor) 50 mg BID PO Last administered on 02/15/19 08:24; Admin Dose 50 MG; Start 02/08/19 at 21:00 Ondansetron HCl (Zofran Inj) 4 mg Q6H PRN IV NAUSEA AND/OR VOMITING Last administered on 02/13/19 12:09; Admin Dose 4 MG; Start 02/09/19 at 12:30 Epoetin Indra-epbx (Retacrit (Esrd)) 8,000 unit TuThSa@1700 SC Last administered on 02/13/19 17:07; Admin Dose 8,000 UNIT; Start 02/11/19 at 18:09 Amlodipine Besylate (Norvasc) 2.5 mg DAILY PO Last administered on 02/15/19at 08:22; Admin Dose 2.5 MG; Start 02/14/19 at 09:00 Sodium Hypochlorite (Dakin'S (Dilute )) 1 applic Q12 IRR Last administered on 02/15/19 08:25; Admin Dose 1 APPLIC; Start 02/14/19 at 09:00 ALIREZA LEE Feb 15, 2019 17:52
[2019-02-15] MEDS: ATORVASTATIN 20 MG TAB PO SCH (22:24)
[2019-02-16 02:00] VITALS: BP 113/53; PULSE 65; RESP 18
[2019-02-16] MEDS: traMADol 50 MG TAB PO SCH ×5 (02:00→21:32)
[2019-02-16] MEDS: LEVOTHYROXINE 100 MCG TAB PO SCH (05:46)
[2019-02-16] MEDS: METOCLOPRAMIDE 5 MG TAB PO SCH ×4 (07:30→17:37)
[2019-02-16 08:00] VITALS: BP 131/61; PULSE 68; RESP 17
[2019-02-16] MEDS: INSULIN ASPART [NOVOLOG] 3 ML PEN SC SCH ×4 (08:00→21:28)
[2019-02-16] MEDS: MEGESTROL (40 MG/ML) 10ML CUP PO SCH ×2 (09:00→09:39)
[2019-02-16] MEDS: DOCUSATE SODIUM 100 MG CAP PO SCH ×2 (09:00→21:31)
[2019-02-16] MEDS: POLYETHYLENE GLYCOL 17 GM PACKET PO SCH (09:00)
[2019-02-16] MEDS: FOLIC ACID 1 MG TAB PO SCH (09:36)
[2019-02-16] MEDS: PANTOPRAZOLE (EC) 40 MG TAB PO SCH (09:36)
[2019-02-16] MEDS: CITALOPRAM 20 MG TAB PO SCH (09:36)
[2019-02-16] MEDS: AMLODIPINE 2.5 MG TAB PO SCH (09:37)
[2019-02-16] MEDS: MULTIVIT/CA CARB/B CMPLX/FA TAB PO SCH (09:37)
[2019-02-16] MEDS: AMIODARONE 200 MG TAB PO SCH (09:37)
[2019-02-16] MEDS: HEPARIN 5,000 UNIT/1 ML VIAL SC SCH ×2 (09:38→21:31)
[2019-02-16] MEDS: COLLAGENASE 5 GM (UD JAR) TOP SCH (09:39)
[2019-02-16] MEDS: METOPROLOL 50 MG TAB PO SCH ×2 (09:39→21:32)
[2019-02-16] MEDS: BALSAM PERU/CASTOR OIL 60 GM TUBE TOP SCH ×2 (09:43→21:33)
[2019-02-16] MEDS: PREDNISOLONE ACET 1% 5 ML OPH RIGHT EYE SCH ×2 (09:43→21:33)
[2019-02-16] MEDS: SODIUM HYPOCHLORITE (1/40) 1 LITER BTL IRR SCH ×2 (09:44→21:34)
--- NOTE | 2019-02-16 10:34 | PN ---
Date/Time of Note Date/Time of Note DATE: 02/16/19 TIME: 10:29 Assessment/Plan Lines/Catheters IV Catheter Type (from Nrs): PICC Line [place] in Place (from Nrs): No Assessment/Plan Chief Complaint/Hosp Course 1. Sacral and bilateral ischial wounds: wnd cx noted; status post sacrum and right ischial debridement 01/29/19 -Further debridement as needed -Continue local care> Can follow with Dr. Almanza as outpatient in wound clinic. -frequent turning and off-loading -low air loss mattress -vitamin c -short term zinc -optimize nutrition -Per podiatry consult for heel wound 2. Abdominal pain and generalized weakness: Status post EGD: Gastritis; no acute abd pain -further w/u per med team -PPI 3. ESRD -limit nephrotoxins -HD per renal -renally dose meds 4. Anemia: -monitor and transfuse as needed 5. Diabetes with episodes of hypoglycemia; no hypoglycemia episodes-sugar control much improved -glucose management 6. Hypothyroidism -med mgt 7. Pleural effusions: Persistent -Pulmonary consult -fluid management Thank you. Patient seen and examined in collaboration with Dr. Simón Almanza. Subjective 24 Hr Interval Summary No acute events. No fevers, chills, sob, congested cough, cp, palpitations, hoffman, dizziness, nausea, vomiting, diarrhea, dysuria. Exam/Review of Systems Vital Signs Vitals Vital Signs Date Temp Pulse Resp B/P (MAP) Pulse Ox O2 O2 Flow FiO2 Time Delivery Rate 02/16/19 98.0 68 17 131/61 99 Room Air 08:00 (84) 02/16/19 3.0 02:29 Intake and Output 02/15/19 02/15/19 02/16/19 1515:00 23:00 07:00 IntakeIntake Total 170 ml 240 ml OutputOutput Total 200 ml 2000 ml BalanceBalance -30 ml -1760 ml Exam Free Text/Dictation Constitutional: alert, oriented, obese Psych: normal mood Head: normocephalic, atraumatic Eyes: nl conjunctiva, EOMI, nl lids, nl sclera ENMT: nl external ears & nose, nl lips & teeth, mucosa pink and moist Neck: supple, non-tender; No jvd Respiratory: normal air movement; No congested cough, No labored breathing Cardiovascular: regular rate and rhythm, nl pulses; No edema Gastrointestinal: soft, non-tender, distended Genitourinary - Female: nl external genitalia Musculoskeletal: nl extremities to inspection, nl gait and stance Extremities: normal pulses Neurological: nl mental status, nl speech, nl strength Skin: other (sacral: Packed, no odor, minimal periwound erythema, min slough; right ischium: Packed, improved odor; left ischium: unstageable; left heel: Open wound); No rash or lesions Results Result Diagram: 02/13/19 0530 02/13/19 0530 ARSLAN COATES NP Feb 16, 2019 10:34
--- NOTE | 2019-02-16 10:57 | CONS ---
Consult Date/Type/Reason Admit Date/Time Jan 26, 2019 at 17:32 Initial Consult Date 01/27/19 Requesting Provider: ALEXUS VALENCIA MD Date/Time of Note DATE: 02/16/19 TIME: 10:55 Subjective NO acute events - pt comfortable - no CP now- con't to keep euvolemic. ROS: No fever, no chills, no nausea, no vomiting, no diarrhea/constipation - per nurse Objective Vitals Vital Signs Date Temp Pulse Resp B/P (MAP) Pulse Ox O2 O2 Flow FiO2 Time Delivery Rate 02/16/19 98.0 68 17 131/61 99 Room Air 08:00 (84) 02/16/19 3.0 02:29 Intake and Output 02/15/19 02/15/19 02/16/19 1515:00 23:00 07:00 IntakeIntake Total 170 ml 240 ml OutputOutput Total 200 ml 2000 ml BalanceBalance -30 ml -1760 ml Exam General: WN/WD/NAD, AOx stable HEENT: Unicetric/atraumatic/EOMI (follows some commands) NECK: JVD elevated, no thyromegaly Lymph: no lymphadenopathy HEART: regular with no S3, II/ systolic murmur at apex LUNGS: Coarse sounds ABD: soft, NT, ND, +BS : Intact Neuro: non focal SKIN: chronic changes EXT: trace edema Results/Medications Result Diagram: 02/16/19 1018 02/13/19 0530 Results 24 hrs Laboratory Tests Test 02/15/19 12:02 02/15/19 17:16 02/15/19 22:23 02/16/19 08:05 Bedside Glucose 103 99 124 102 Test 02/16/19 10:18 Hemoglobin 7.9 L Hematocrit 25.8 L Home Meds Reported Medications Insulin Lispro (Humalog Kwikpen U-100) 100 Unit/1 Ml Insuln.pen, 0 SQ SLIDING SCALE, EA IF BS 151-200=1 UNIT,201-250=2 UNITS,251-300=3 UNITS,301-350=4 UNITS,351-400=5 UNITS, IF >400=6 UNITS AND CALL 01/26/19 Dariel Borrero/[place] Oil (Venelex Ointment) 60 Gm Oint..gm., 1 APPLIC TOP NEEDED, #1 TUB 01/26/19 Multivit/Ca Carb/B Cmplx/Fa* (Wendi-Cathi*) 1 Tab Tab, 1 TAB PO DAILY, TAB 01/26/19 Metoclopramide* (Reglan*) 5 Mg Tablet, 5 MG PO BEFORE MEALS, TAB 01/26/19 Protein Supplement (Promod) 946 Ml Liquid, 30 ML PO DAILY 01/26/19 Lactose-Free Food (Nutritional Supplement) 237 Ml Liquid, 1 PO BID 01/26/19 Morphine Sulfate* (Morphine* Liq) 10 Mg/0.5 Ml Disp.syrin, 6 MG SL Q4H PRN for PAIN 7-08/19, ML 01/26/19 Ipratropium-Albuterol (Ipratropium-Albuterol) 0.5-3 Mg/3 Ml Ampul.neb, 3 ML INHALATION TID, #30 VIAL 01/26/19 Heparin Sod,Porcine/0.9 % NaCl (Heparin 5,000 Unit/5 ml-Ns) 5,000 Unit/5 Ml Syringe, 5000 UNIT IV Q8H 01/26/19 Ondansetron Hcl* (Zofran*) 4 Mg Tablet, 4 MG PO Q6H PRN for NAUSEA AND OR VOMITING, TAB 01/26/19 Citalopram Hydrobromide* (Citalopram Hydrobromide*) 20 Mg Tablet, 20 MG PO DAILY, #30 TAB 01/26/19 Bisacodyl* (Bisacodyl*) 5 Mg Tablet.dr, 10 MG PO Q24H PRN for CONSTIPATION, TAB 01/26/19 Diphenhydramine Hcl* (Diphenhydramine Hcl*) 25 Mg Capsule, 25 MG PO Q6 PRN for ITCHING, CAP 01/26/19 Polyethylene Glycol* (Polyethylene Glycol*) 17 Gm Powd.pack, 17 GM PO DAILY, #30 PACKET 11/18/18 Pantoprazole* (Pantoprazole*) 40 Mg Tablet.dr, 40 MG PO DAILY, TAB 11/18/18 Metoprolol Tartrate* (Lopressor*) 25 Mg Tablet, 25 MG PO BID, #60 TAB HOLD IF SBP<110 OR HR<60 11/18/18 Losartan Potassium* (Losartan Potassium*) 50 Mg Tablet, 50 MG PO BID, TAB HOLD IFSBP<110 OR HR<60 11/18/18 Levothyroxine Sodium* (Levothyroxine Sodium*) 100 Mcg Tablet, 100 MCG PO BEFORE BREAKFAST, #30 TAB 11/18/18 Insulin Detemir (Levemir) 100 Unit/1 Ml Vial, 6 UNITS SQ QHS 11/18/18 Folic Acid* (Folic Acid*) 1 Mg Tablet, 1 MG PO DAILY, TAB 11/18/18 Zinc Sulfate* (Zinc Sulfate*) 220 Mg Cap, 220 MG PO DAILY, CAP 11/18/18 Ascorbic Acid (Vitamin C) 500 Mg Tab, 500 MG PO DAILY, TAB 11/18/18 Acetaminophen* (Acetaminophen*) 325 Mg Tablet, 325 MG PO Q4H PRN for PAIN AND OR ELEVATED TEMP, #30 TAB FOR MILD PAIN -01/1711/18/18 Trazodone Hcl* (Trazodone Hcl*) 50 Mg Tablet, 50 MG PO QHS, #30 TAB 11/18/18 Tramadol HCl (Tramadol HCl) 50 Mg Tablet, 50 MG PO Q6H PRN for PAIN, #120 TAB 11/18/18 Prednisolone Acetate* (Pred Forte*) 5 Ml Susp, 1 DROP RIGHT EYE BID, EA 11/18/18 Docusate Sodium* (Colace*) 100 Mg Capsule, 100 MG PO BID, #30 CAP 11/18/18 Atorvastatin Calcium* (Atorvastatin Calcium*) 20 Mg Tablet, 20 MG PO QHS, #30 TAB 11/18/18 Amlodipine Besylate* (Norvasc*) 5 Mg Tablet, 5 MG PO QHS, TAB HOLD IF SBP<110 OR HR<60 11/18/18 Amiodarone Hcl* (Amiodarone Hcl*) 200 Mg Tablet, 200 MG PO DAILY, #30 TAB 11/18/18 Medications Current Medications Amiodarone HCl (Cordarone) 200 mg DAILY PO Last administered on 02/16/19at 09:37; Admin Dose 200 MG; Start 01/27/19 at 09:00 Atorvastatin Calcium (Lipitor) 20 mg QHS PO Last administered on 02/15/19at 22:24; Admin Dose 20 MG; Start 01/26/19 at 21:00 Bisacodyl (Dulcolax) 10 mg Q24H PRN PO CONSTIPATION; Start 01/26/19 at 20:00 Citalopram Hydrobromide (Celexa) 20 mg DAILY PO Last administered on 02/16/19 09:36; Admin Dose 20 MG; Start 01/27/19 at 09:00 Docusate Sodium (Colace) 100 mg BID PO Last administered on 02/15/19 22:24; Admin Dose 100 MG; Start 01/26/19 at 21:00 Folic Acid (Folic Acid) 1 mg DAILY PO Last administered on 02/16/19 09:36; Admin Dose 1 MG; Start 01/27/19 at 09:00 Levothyroxine Sodium (Synthroid) 100 mcg BEFORE BREAKFAST PO Last administered on 02/16/19 05:46; Admin Dose 100 MCG; Start 01/27/19 at 07:00 Metoclopramide HCl (Reglan) 5 mg BEFORE MEALS PO Last administered on 02/16/19 09:38; Admin Dose 5 MG; Start 01/27/19 at 07:30 Multivit/Ca Carb/ B Cmplx/FA/Prenat (Wendi-Cathi) 1 tab DAILY PO Last administered on 02/16/19 09:37; Admin Dose 1 TAB; Start 01/27/19 at 09:00 Ondansetron HCl (Zofran Tab) 4 mg Q6H PRN PO NAUSEA AND/OR VOMITING Last administered on 01/30/19 10:43; Admin Dose 4 MG; Start 01/26/19 at 20:00 Pantoprazole (Protonix Tab) 40 mg DAILY PO Last administered on 02/16/19 09:36; Admin Dose 40 MG; Start 01/27/19 at 09:00 Polyethylene Glycol (Miralax) 17 gm DAILY PO Last administered on 02/09/19 08:40; Admin Dose 17 GM; Start 01/27/19 at 09:00 Prednisolone Acetate (Pred-Forte 1%) 1 drop BID RIGHT EYE Last administered on 02/16/19 09:43; Admin Dose 1 DROP; Start 01/26/19 at 21:00 Insulin Aspart (Novolog Insulin Pen) NOVOLOG *MODERATE* ALGORITHM WITH MEALS BEDTIME SC Last administered on 02/04/19 17:37; Admin Dose 2 UNIT; Start 01/26/19 at 21:00 Heparin Sodium (Porcine) (Heparin (5000 Units/1ml)) 5,000 unit BID SC Last administered on 02/16/19 09:38; Admin Dose 5,000 UNIT; Start 01/26/19 at 21:00 Morphine Sulfate (morphine) 2 mg Q4H PRN IV SEVERE PAIN LEVEL 7-10 Last administered on 02/14/19 08:12; Admin Dose 2 MG; Start 01/26/19 at 20:30 Miscellaneous Information 1 ea NOTE XX ; Start 01/26/19 at 23:45 Glucose (Glutose) 15 gm Q15M PRN PO DECREASED GLUCOSE; Start 01/26/19 at 23:45 Glucose (Glutose) 22.5 gm Q15M PRN PO DECREASED GLUCOSE; Start 01/26/19 at 23:45 Dextrose (D50w Syringe) 25 ml Q15M PRN IV DECREASED GLUCOSE Last administered on 01/28/19at 07:50; Admin Dose 25 ML; Start 01/26/19 at 23:45 Dextrose (D50w Syringe) 50 ml Q15M PRN IV DECREASED GLUCOSE; Start 01/26/19 at 23:45 Glucagon (Glucagen) 1 mg Q15M PRN IM DECREASED GLUCOSE; Start 01/26/19 at 23:45 Glucose (Glutose) 15 gm Q15M PRN BUCCAL DECREASED GLUCOSE; Start 01/26/19 at 23:45 Alteplase, Recombinant (Cathflo (Activase)) 2 mg MAY REPEAT X1 PRN CATHETER IF CATHETER REMAINS OCCULUDED Last administered on 02/02/19 23:09; Admin Dose 2 MG; Start 01/27/19 at 07:00 Tramadol HCl (Ultram) 50 mg Q6H PO Last administered on 02/16/19 09:38; Admin Dose 50 MG; Start 01/27/19 at 08:00 Collagenase (Santyl) 1 applic DAILY TOP Last administered on 02/16/19 09:39; Admin Dose 1 APPLIC; Start 01/28/19 at 09:00 Lorazepam (Ativan) 1 mg Q8H PRN PO ANXIETY; Start 01/27/19 at 22:30 Megestrol Acetate (Megace Susp) 400 mg DAILY PO Last administered on 02/12/19 09:34; Admin Dose 400 MG; Start 01/30/19 at 14:30 Lactulose (Enulose) 20 gm Q6H PRN PO CONSTIPATION; Start 3/28/19 at 11:00 Hydralazine HCl (Apresoline) 100 mg Q8 PO Last administered on 02/15/19 22:25; Admin Dose 100 MG; Start 02/04/19 at 14:00 Metoprolol Tartrate (Lopressor) 50 mg BID PO Last administered on 02/16/19 09:39; Admin Dose 50 MG; Start 02/08/19 at 21:00 Ondansetron HCl (Zofran Inj) 4 mg Q6H PRN IV NAUSEA AND/OR VOMITING Last administered on 02/13/19 12:09; Admin Dose 4 MG; Start 02/09/19 at 12:30 Epoetin Indra-epbx (Retacrit (Esrd)) 8,000 unit TuThSa@1700 SC Last administered on 02/13/19 17:07; Admin Dose 8,000 UNIT; Start 02/11/19 at 18:09 Amlodipine Besylate (Norvasc) 2.5 mg DAILY PO Last administered on 02/16/19 09:37; Admin Dose 2.5 MG; Start 02/14/19 at 09:00 Sodium Hypochlorite (Dakin'S (Dilute )) 1 applic Q12 IRR Last administered on 02/16/19 09:44; Admin Dose 1 APPLIC; Start 02/14/19 at 09:00 Assessment/Plan Hospital Course (Demo Recall) 1. Preop evaluation. The patient to undergo EGD whose 2D echo I just read revealing EF lower limits of normal, approximately 50% with no significant contraindicated valvular lesions and negative troponin x1 since admit, patient is okay to proceed at a moderate cardiovascular risk. Now post-op s/p endoscopy and debridement of decub ulcer - stable, no bleeding noted. 2. Congestive heart failure, diastolic acute on chronic - euvolemic by exam. 3. Hypertension. 4. Cardiac arrhythmia, on amiodarone, in sinus rhythm by EKG. Of tele now. 5. Hypothyroidism. 6. Diabetes mellitus- on meds, keep euglycemic. 7. Nausea and vomiting. 8. Generalized weakness. 9. Decubitus ulcers s/p debridement - treated. 10. Anemia. 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 12.CKD on HD - Rx per renal team. FAY VORA MD Feb 16, 2019 10:57
[2019-02-16 14:10] VITALS: BP 165/73; PULSE 63; RESP 16
[2019-02-16 16:32] VITALS: BP 142/68; PULSE 66
--- NOTE | 2019-02-16 16:58 | CONS ---
Assessment/Plan Assessment/Plan Hospital Course (Demo Recall) No acute events Microbiology sacral wound culture grew Proteus, E. coli ESBL, VRE, and MRSA Antimicrobials: completed PHYSICAL EXAMINATION: GENERAL: This is a fragile, wasted, well-developed, elderly woman, who is in no distress. HEENT: Head atraumatic, normocephalic. Sclerae anicteric. The patient has right eye blindness. Buccal mucosa pale, dry. NECK: Supple. CHEST: Rise symmetrical. Breath sounds diminished to bases. HEART: S1, S2. ABDOMEN: Obese, soft, bowel tones present. EXTREMITIES: Bilateral edema. SKIN: The patient has a large necrotic wounds on bilateral buttocks, left buttock and left posterior thigh area , also, necrotic wound. The patient has pressure sores on her left heel as well. Assessment: 1. Multiple necrotic infected wounds, s/p debridement 2. End-stage renal disease, hemodialysis dependent 3. Diabetes 4. Hypertension 5. MRSA colonization 6. HCAP 7. Gastroparesis 8. S/p UTI==> Proteus Plan: Remains stable, continue wound care per surgery, observe off abx Consultation Date/Type/Reason Admit Date/Time Jan 26, 2019 at 17:32 Initial Consult Date 01/27/19 Type of Consult id Requesting Provider: ALEXUS VALENCIA MD Date/Time of Note DATE: 02/16/19 TIME: 16:57 Exam/Review of Systems Exam Vitals Vital Signs Date Temp Pulse Resp B/P (MAP) Pulse Ox O2 O2 Flow FiO2 Time Delivery Rate 02/16/19 66 142/68 16:32 (92) 02/16/19 98.0 16 100 Nasal 14:10 Cannula 02/16/19 2 11:45 Intake and Output 02/15/19 02/15/19 02/16/19 1515:00 23:00 07:00 IntakeIntake Total 170 ml 240 ml OutputOutput Total 200 ml 2000 ml BalanceBalance -30 ml -1760 ml Results Result Diagram: 02/16/19 1018 02/13/19 0530 Results 24hrs Laboratory Tests Test 02/15/19 17:16 02/15/19 22:23 02/16/19 08:05 02/16/19 10:18 Bedside Glucose 99 124 102 Hemoglobin 7.9 L Hematocrit 25.8 L Test 02/16/19 11:59 Bedside Glucose 152 Medications Medication Current Medications Amiodarone HCl (Cordarone) 200 mg DAILY PO Last administered on 02/16/19 09:37; Admin Dose 200 MG; Start 01/27/19 at 09:00 Atorvastatin Calcium (Lipitor) 20 mg QHS PO Last administered on 02/15/19 22:24; Admin Dose 20 MG; Start 01/26/19 at 21:00 Bisacodyl (Dulcolax) 10 mg Q24H PRN PO CONSTIPATION; Start 01/26/19 at 20:00 Citalopram Hydrobromide (Celexa) 20 mg DAILY PO Last administered on 02/16/19 09:36; Admin Dose 20 MG; Start 01/27/19 at 09:00 Docusate Sodium (Colace) 100 mg BID PO Last administered on 02/15/19 22:24; A dmin Dose 100 MG; Start 01/26/19 at 21:00 Folic Acid (Folic Acid) 1 mg DAILY PO Last administered on 02/16/19 09:36; Admin Dose 1 MG; Start 01/27/19 at 09:00 Levothyroxine Sodium (Synthroid) 100 mcg BEFORE BREAKFAST PO Last administered on 02/16/19 05:46; Admin Dose 100 MCG; Start 01/27/19 at 07:00 Metoclopramide HCl (Reglan) 5 mg BEFORE MEALS PO Last administered on 02/16/19 12:02; Admin Dose 5 MG; Start 01/27/19 at 07:30 Multivit/Ca Carb/ B Cmplx/FA/Prenat (Wendi-Cathi) 1 tab DAILY PO Last administered on 02/16/19 09:37; Admin Dose 1 TAB; Start 01/27/19 at 09:00 Ondansetron HCl (Zofran Tab) 4 mg Q6H PRN PO NAUSEA AND/OR VOMITING Last administered on 01/30/19 10:43; Admin Dose 4 MG; Start 01/26/19 at 20:00 Pantoprazole (Protonix Tab) 40 mg DAILY PO Last administered on 02/16/19 09:36; Admin Dose 40 MG; Start 01/27/19 at 09:00 Polyethylene Glycol (Miralax) 17 gm DAILY PO Last administered on 02/09/19 08:40; Admin Dose 17 GM; Start 01/27/19 at 09:00 Prednisolone Acetate (Pred-Forte 1%) 1 drop BID RIGHT EYE Last administered on 02/16/19 09:43; Admin Dose 1 DROP; Start 01/26/19 at 21:00 Insulin Aspart (Novolog Insulin Pen) NOVOLOG *MODERATE* ALGORITHM WITH MEALS BEDTIME SC Last administered on 02/16/19 12:02; Admin Dose 2 UNIT; Start 01/26/19 at 21:00 Heparin Sodium (Porcine) (Heparin (5000 Units/1ml)) 5,000 unit BID SC Last administered on 02/16/19 09:38; Admin Dose 5,000 UNIT; Start 01/26/19 at 21:00 Morphine Sulfate (morphine) 2 mg Q4H PRN IV SEVERE PAIN LEVEL 7-10 Last administered on 02/14/19 08:12; Admin Dose 2 MG; Start 01/26/19 at 20:30 Miscellaneous Information 1 ea NOTE XX ; Start 01/26/19 at 23:45 Glucose (Glutose) 15 gm Q15M PRN PO DECREASED GLUCOSE; Start 01/26/19 at 23:45 Glucose (Glutose) 22.5 gm Q15M PRN PO DECREASED GLUCOSE; Start 01/26/19 at 23:45 Dextrose (D50w Syringe) 25 ml Q15M PRN IV DECREASED GLUCOSE Last administered on 01/28/19 07:50; Admin Dose 25 ML; Start 01/26/19 at 23:45 Dextrose (D50w Syringe) 50 ml Q15M PRN IV DECREASED GLUCOSE; Start 01/26/19 at 23:45 Glucagon (Glucagen) 1 mg Q15M PRN IM DECREASED GLUCOSE; Start 01/26/19 at 23:45 Glucose (Glutose) 15 gm Q15M PRN BUCCAL DECREASED GLUCOSE; Start 01/26/19 at 23:45 Alteplase, Recombinant (Cathflo (Activase)) 2 mg MAY REPEAT X1 PRN CATHETER IF CATHETER REMAINS OCCULUDED Last administered on 02/02/19 23:09; Admin Dose 2 MG; Start 01/27/19 at 07:00 Tramadol HCl (Ultram) 50 mg Q6H PO Last administered on 02/16/19 09:38; Admin Dose 50 MG; Start 01/27/19 at 08:00 Collagenase (Santyl) 1 applic DAILY TOP Last administered on 02/16/19 09:39; Admin Dose 1 APPLIC; Start 01/28/19 at 09:00 Lorazepam (Ativan) 1 mg Q8H PRN PO ANXIETY; Start 01/27/19 at 22:30 Megestrol Acetate (Megace Susp) 400 mg DAILY PO Last administered on 02/12/19 09:34; Admin Dose 400 MG; Start 01/30/19 at 14:30 Lactulose (Enulose) 20 gm Q6H PRN PO CONSTIPATION; Start 02/04/19 at 11:00 Hydralazine HCl (Apresoline) 100 mg Q8 PO Last administered on 02/16/19 13:56; Admin Dose 100 MG; Start 02/04/19 at 14:00 Metoprolol Tartrate (Lopressor) 50 mg BID PO Last administered on 02/16/19 09: 39; Admin Dose 50 MG; Start 02/08/19 at 21:00 Ondansetron HCl (Zofran Inj) 4 mg Q6H PRN IV NAUSEA AND/OR VOMITING Last administered on 02/13/19 12:09; Admin Dose 4 MG; Start 02/09/19 at 12:30 Epoetin Indra-epbx (Retacrit (Esrd)) 8,000 unit TuThSa@1700 SC Last administered on 02/13/19 17:07; Admin Dose 8,000 UNIT; Start 02/11/19 at 18:09 Amlodipine Besylate (Norvasc) 2.5 mg DAILY PO Last administered on 02/16/19 09:37; Admin Dose 2.5 MG; Start 02/14/19 at 09:00 Sodium Hypochlorite (Dakin'S (Dilute )) 1 applic Q12 IRR Last administered on 02/16/19 09:44; Admin Dose 1 APPLIC; Start 02/14/19 at 09:00 ALYX NAVARRO NP Feb 16, 2019 16:58
--- NOTE | 2019-02-16 17:15 | PN ---
Date/Time of Note Date/Time of Note DATE: 02/16/19 TIME: 17:15 Assessment/Plan VTE Prophylaxis Risk score (from Ns)>0 risk: 2 SCD applied (from Ns): Yes Pharmacological prophylaxis: heparin Lines/Catheters IV Catheter Type (from Nrsg): PICC Line Central line still needed: Yes Urinary Cath still in place: No Assessment/Plan Hospital Course Patient's continues to have poor appetite, refusing Megace, foot x-ray noted continue current wound care, air mattress offloading. DC planning. Assessment/Plan -Sacral and bilateral ischial infected wounds. Status post sacrum and right ischial debridement 01/29/19. Dr. Almanza is following in general surgery consultation. Completed bax. Dr. Guevara is following in infection disease consultation. -HCAP with Left lower lobe infiltrate -Abdominal pain. Status post EGD with notion of gastritis. Continue PPI. Status post a colonoscopy with notion of hemorrhoids. -Moderate bilateral pleural effusion -Hemodialysis dependent end-stage renal disease. Continue on hemodialysis. Dr. Mcdaniel is following from nephrology standpoint. -Diabetes mellitus type 2. Continue Levemir and NovoLog per mild algorithm sliding scale. -Hypothyroidism, continue levothyroxine -Hypertension. -Hyperlipidemia, continue statin -Anemia -Left heel decubitus ulcer Stage 3, S/p evaluation by Dr Díaz in podiarty consultation. Pt refused debridement, continue current wound care, off loading. -MRSA of nares colonization. Contact isolation. -Right eye blindness. Further recommendations based on clinical course. Plan of care discussed with Dr. Mandel. Result Diagram: 02/16/19 1018 02/13/19 0530 Results 24hrs Laboratory Tests Test 02/15/19 17:16 02/15/19 22:23 02/16/19 08:05 02/16/19 10:18 Bedside Glucose 99 124 102 Hemoglobin 7.9 L Hematocrit 25.8 L Test 02/16/19 11:59 Bedside Glucose 152 Exam/Review of Systems Exam Vitals Vital Signs Date Temp Pulse Resp B/P (MAP) Pulse Ox O2 O2 Flow FiO2 Time Delivery Rate 02/16/19 66 142/68 16:32 (92) 02/16/19 98.0 16 100 Nasal 14:10 Cannula 02/16/19 2 11:45 Intake and Output 402/15/19 02/16/19 1515:00 23:00 07:00 IntakeIntake Total 170 ml 240 ml OutputOutput Total 200 ml 2000 ml BalanceBalance -30 ml -1760 ml Exam Constitutional: alert, oriented, lethargic Eyes: other (Right eye blindness) Respiratory: clear to auscultation Cardiovascular: regular rate and rhythm Gastrointestinal: soft, non-tender Musculoskeletal: nl extremities to inspection Extremities: normal pulses, edema, other (Right upper extremity AV fistula) Neurological: nl mental status Results Results 24hrs Laboratory Tests Test 02/15/19 17:16 02/15/19 22:23 02/16/19 08:05 02/16/19 10:18 Bedside Glucose 99 124 102 Hemoglobin 7.9 L Hematocrit 25.8 L Test 02/16/19 11:59 Bedside Glucose 152 Medications Medication Current Medications Amiodarone HCl (Cordarone) 200 mg DAILY PO Last administered on 02/16/19 09:37; Admin Dose 200 MG; Start 01/27/19 at 09:00 Atorvastatin Calcium (Lipitor) 20 mg QHS PO Last administered on 02/15/19 22:24; Admin Dose 20 MG; Start 01/26/19 at 21:00 Bisacodyl (Dulcolax) 10 mg Q24H PRN PO CONSTIPATION; Start 01/26/19 at 20:00 Citalopram Hydrobromide (Celexa) 20 mg DAILY PO Last administered on 02/16/19 09:36; Admin Dose 20 MG; Start 01/27/19 at 09:00 Docusate Sodium (Colace) 100 mg BID PO Last administered on 02/15/19 22:24; Admin Dose 100 MG; Start 01/26/19 at 21:00 Folic Acid (Folic Acid) 1 mg DAILY PO Last administered on 02/16/19 09:36; Admin Dose 1 MG; Start 01/27/19 at 09:00 Levothyroxine Sodium (Synthroid) 100 mcg BEFORE BREAKFAST PO Last administered on 02/16/19 05:46; Admin Dose 100 MCG; Start 01/27/19 at 07:00 Metoclopramide HCl (Reglan) 5 mg BEFORE MEALS PO Last administered on 02/16/19 12:02; Admin Dose 5 MG; Start 01/27/19 at 07:30 Multivit/Ca Carb/ B Cmplx/FA/Prenat (Wendi-Cathi) 1 tab DAILY PO Last administered on 02/16/19 09:37; Admin Dose 1 TAB; Start 01/27/19 at 09:00 Ondansetron HCl (Zofran Tab) 4 mg Q6H PRN PO NAUSEA AND/OR VOMITING Last administered on 01/30/19 10:43; Admin Dose 4 MG; Start 01/26/19 at 20:00 Pantoprazole (Protonix Tab) 40 mg DAILY PO Last administered on 02/16/19 09:36; Admin Dose 40 MG; Start 01/27/19 at 09:00 Polyethylene Glycol (Miralax) 17 gm DAILY PO Last administered on 02/09/19 08:40; Admin Dose 17 GM; Start 01/27/19 at 09:00 Prednisolone Acetate (Pred-Forte 1%) 1 drop BID RIGHT EYE Last administered on 02/16/19 09:43; Admin Dose 1 DROP; Start 01/26/19 at 21:00 Insulin Aspart (Novolog Insulin Pen) NOVOLOG *MODERATE* ALGORITHM WITH MEALS BEDTIME SC Last administered on 02/16/19 12:02; Admin Dose 2 UNIT; Start 01/26/19 at 21:00 Heparin Sodium (Porcine) (Heparin (5000 Units/1ml)) 5,000 unit BID SC Last administered on 02/16/19 09:38; Admin Dose 5,000 UNIT; Start 01/26/19 at 21:00 Morphine Sulfate (morphine) 2 mg Q4H PRN IV SEVERE PAIN LEVEL 7-10 Last administered on 02/14/19 08:12; Admin Dose 2 MG; Start 01/26/19 at 20:30 Miscellaneous Information 1 ea NOTE XX ; Start 01/26/19 at 23:45 Glucose (Glutose) 15 gm Q15M PRN PO DECREASED GLUCOSE; Start 01/26/19 at 23:45 Glucose (Glutose) 22.5 gm Q15M PRN PO DECREASED GLUCOSE; Start 01/26/19 at 23:45 Dextrose (D50w Syringe) 25 ml Q15M PRN IV DECREASED GLUCOSE Last administered on 01/28/19 07:50; Admin Dose 25 ML; Start 01/26/19 at 23:45 Dextrose (D50w Syringe) 50 ml Q15M PRN IV DECREASED GLUCOSE; Start 01/26/19 at 23:45 Glucagon (Glucagen) 1 mg Q15M PRN IM DECREASED GLUCOSE; Start 01/26/19 at 23:45 Glucose (Glutose) 15 gm Q15M PRN BUCCAL DECREASED GLUCOSE; Start 01/26/19 at 23:45 Alteplase, Recombinant (Cathflo (Activase)) 2 mg MAY REPEAT X1 PRN CATHETER IF CATHETER REMAINS OCCULUDED Last administered on 02/02/19 23:09; Admin Dose 2 MG; Start 01/27/19 at 07:00 Tramadol HCl (Ultram) 50 mg Q6H PO Last administered on 02/16/19 09:38; Admin Dose 50 MG; Start 01/27/19 at 08:00 Collagenase (Santyl) 1 applic DAILY TOP Last administered on 02/16/19 09:39; A dmin Dose 1 APPLIC; Start 01/28/19 at 09:00 Lorazepam (Ativan) 1 mg Q8H PRN PO ANXIETY; Start 01/27/19 at 22:30 Megestrol Acetate (Megace Susp) 400 mg DAILY PO Last administered on 02/12/19 09:34; Admin Dose 400 MG; Start 01/30/19 at 14:30 Lactulose (Enulose) 20 gm Q6H PRN PO CONSTIPATION; Start 02/04/19 at 11:00 Hydralazine HCl (Apresoline) 100 mg Q8 PO Last administered on 02/16/19 13:56; Admin Dose 100 MG; Start 02/04/19 at 14:00 Metoprolol Tartrate (Lopressor) 50 mg BID PO Last administered on 02/16/19 09:39; Admin Dose 50 MG; Start 02/08/19 at 21:00 Ondansetron HCl (Zofran Inj) 4 mg Q6H PRN IV NAUSEA AND/OR VOMITING Last administered on 02/13/19 12:09; Admin Dose 4 MG; Start 02/09/19 at 12:30 Epoetin Indra-epbx (Retacrit (Esrd)) 8,000 unit TuThSa@1700 SC Last administered on 02/13/19 17:07; Admin Dose 8,000 UNIT; Start 02/11/19 at 18:09 Amlodipine Besylate (Norvasc) 2.5 mg DAILY PO Last administered on 02/16/19at 09:37; Admin Dose 2.5 MG; Start 02/14/19 at 09:00 Sodium Hypochlorite (Dakin'S (Dilute )) 1 applic Q12 IRR Last administered on 02/16/19at 09:44; Admin Dose 1 APPLIC; Start 02/14/19 at 09:00 SIN IZAGUIRRE Feb 16, 2019 17:15
[2019-02-16] MEDS: EPOETIN ALFA-EPBX (ESRD) 4,000 UNIT/ML VIAL SC SCH (17:28)
[2019-02-16 20:00] VITALS: BP 132/60; PULSE 64; RESP 17
[2019-02-16] MEDS: ATORVASTATIN 20 MG TAB PO SCH (21:32)
[2019-02-17] VITALS (10 sets, daily range): BP systolic 116–161; BP diastolic 56–80; PULSE 64–67; RESP 16–18
[2019-02-17] MEDS: traMADol 50 MG TAB PO SCH ×4 (02:00→18:40)
[2019-02-17] MEDS: LEVOTHYROXINE 100 MCG TAB PO SCH (05:50)
[2019-02-17] MEDS: INSULIN ASPART [NOVOLOG] 3 ML PEN SC SCH ×4 (08:10→20:54)
[2019-02-17] MEDS: METOCLOPRAMIDE 5 MG TAB PO SCH ×3 (08:10→17:42)
[2019-02-17] MEDS: MEGESTROL (40 MG/ML) 10ML CUP PO SCH ×2 (09:00→09:28)
[2019-02-17] MEDS: POLYETHYLENE GLYCOL 17 GM PACKET PO SCH ×2 (09:00→09:28)
[2019-02-17] MEDS: MULTIVIT/CA CARB/B CMPLX/FA TAB PO SCH (09:26)
[2019-02-17] MEDS: AMLODIPINE 2.5 MG TAB PO SCH (09:26)
[2019-02-17] MEDS: AMIODARONE 200 MG TAB PO SCH (09:27)
[2019-02-17] MEDS: FOLIC ACID 1 MG TAB PO SCH (09:27)
[2019-02-17] MEDS: CITALOPRAM 20 MG TAB PO SCH (09:27)
[2019-02-17] MEDS: DOCUSATE SODIUM 100 MG CAP PO SCH (09:27)
[2019-02-17] MEDS: PANTOPRAZOLE (EC) 40 MG TAB PO SCH (09:27)
[2019-02-17] MEDS: COLLAGENASE 5 GM (UD JAR) TOP SCH (09:28)
[2019-02-17] MEDS: METOPROLOL 50 MG TAB PO SCH (09:28)
[2019-02-17] MEDS: PREDNISOLONE ACET 1% 5 ML OPH RIGHT EYE SCH ×2 (09:30→21:56)
[2019-02-17] MEDS: HEPARIN 5,000 UNIT/1 ML VIAL SC SCH ×2 (09:30→22:00)
[2019-02-17] MEDS: BALSAM PERU/CASTOR OIL 60 GM TUBE TOP SCH ×2 (09:31→21:59)
[2019-02-17] MEDS: SODIUM HYPOCHLORITE (1/40) 1 LITER BTL IRR SCH ×2 (09:31→21:59)
--- NOTE | 2019-02-17 13:11 | CONS ---
Assessment/Plan Assessment/Plan Hospital Course (Demo Recall) No acute events, afebrile, nad Microbiology sacral wound culture grew Proteus, E. coli ESBL, VRE, and MRSA Antimicrobials: completed PHYSICAL EXAMINATION: GENERAL: This is a fragile, wasted, well-developed, elderly woman, who is in no distress. HEENT: Head atraumatic, normocephalic. Sclerae anicteric. The patient has right eye blindness. Buccal mucosa pale, dry. NECK: Supple. CHEST: Rise symmetrical. Breath sounds diminished to bases. HEART: S1, S2. ABDOMEN: Obese, soft, bowel tones present. EXTREMITIES: Bilateral edema. SKIN: The patient has a large necrotic wounds on bilateral buttocks, left buttock and left posterior thigh area , also, necrotic wound. The patient has pressure sores on her left heel as well. Assessment: 1. Multiple necrotic infected wounds, s/p debridement 2. End-stage renal disease, hemodialysis dependent 3. Diabetes 4. Hypertension 5. MRSA colonization 6. HCAP 7. Gastroparesis 8. S/p UTI==> Proteus Plan: Remains stable, L foot cx noted==> colonized, continue local wound care, observe off abx Consultation Date/Type/Reason Admit Date/Time Jan 26, 2019 at 17:32 Initial Consult Date 01/27/19 Type of Consult id Requesting Provider: ALEXUS VALENCIA MD Date/Time of Note DATE: 02/17/19 TIME: 13:11 Exam/Review of Systems Exam Vitals Vital Signs Date Temp Pulse Resp B/P (MAP) Pulse Ox O2 O2 Flow FiO2 Time Delivery Rate 02/17/19 Nasal 2.0 08:15 Cannula 02/17/19 98.0 65 16 161/70 98 08:00 (100) Intake and Output 02/16/19 02/16/19 02/17/19 1515:00 23:00 07:00 IntakeIntake Total 100 ml 250 ml BalanceBalance 100 ml 250 ml Results Result Diagram: 02/17/1928 02/17/19627 Results 24hrs Laboratory Tests Test 02/16/19 17:22 02/16/19 21:25 02/17/19 02:15 02/17/19 06:28 Bedside Glucose 195 206 159 White Blood Count 8.5 Red Blood Count 2.68 L Hemoglobin 7.8 L Hematocrit 25.8 L Mean Corpuscular 96.3 Volume Mean Corpuscular 29.1 Hemoglobin Mean Corpuscular 30.2 L Hemoglobin Concent Red Cell 17.2 H Distribution Width Platelet Count 168 Mean Platelet Volume 9.3 Immature 0.600 H Granulocytes % Neutrophils % 69.1 Lymphocytes % 13.2 L Monocytes % 16.3 H Eosinophils % 0.7 Basophils % 0.1 Nucleated Red Blood 0.0 Cells % Immature 0.050 H Granulocytes # Neutrophils # 5.9 Lymphocytes # 1.1 Monocytes # 1.4 H Eosinophils # 0.1 Basophils # 0.0 Nucleated Red Blood 0.0 Cells # Sodium Level 136 Potassium Level 3.5 Chloride Level 100 Carbon Dioxide Level 29 Anion Gap 7 Blood Urea Nitrogen 20 Creatinine 2.67 H Est Glomerular 18 L Filtrat Rate mL/min Glucose Level 136 Calcium Level 8.5 Test 02/17/19 08:06 02/17/19 12:27 Bedside Glucose 150 174 Medications Medication Current Medications Amiodarone HCl (Cordarone) 200 mg DAILY PO Last administered on 02/17/19 09:27; Admin Dose 200 MG; Start 01/27/19 at 09:00 Atorvastatin Calcium (Lipitor) 20 mg QHS PO Last administered on 02/16/19 21:32; Admin Dose 20 MG; Start 01/26/19 at 21:00 Bisacodyl (Dulcolax) 10 mg Q24H PRN PO CONSTIPATION; Start 01/26/19 at 20:00 Citalopram Hydrobromide (Celexa) 20 mg DAILY PO Last administered on 02/17/19 09:27; Admin Dose 20 MG; Start 01/27/19 at 09:00 Docusate Sodium (Colace) 100 mg BID PO Last administered on 02/17/19 09:27; Admin Dose 100 MG; Start 01/26/19 at 21:00 Folic Acid (Folic Acid) 1 mg DAILY PO Last administered on 02/17/19 09:27; Admin Dose 1 MG; Start 01/27/19 at 09:00 Levothyroxine Sodium (Synthroid) 100 mcg BEFORE BREAKFAST PO Last administered on 02/17/19 05:50; Admin Dose 100 MCG; Start 01/27/19 at 07:00 Metoclopramide HCl (Reglan) 5 mg BEFORE MEALS PO Last administered on 02/17/19 12:32; Admin Dose 5 MG; Start 01/27/19 at 07:30 Multivit/Ca Carb/ B Cmplx/FA/Prenat (Wendi-Cathi) 1 tab DAILY PO Last administered on 02/17/19 09:26; Admin Dose 1 TAB; Start 01/27/19 at 09:00 Ondansetron HCl (Zofran Tab) 4 mg Q6H PRN PO NAUSEA AND/OR VOMITING Last administered on 01/30/19 10:43; Admin Dose 4 MG; Start 01/26/19 at 20:00 Pantoprazole (Protonix Tab) 40 mg DAILY PO Last administered on 02/17/19 09:27; Admin Dose 40 MG; Start 01/27/19 at 09:00 Polyethylene Glycol (Miralax) 17 gm DAILY PO Last administered on 02/09/19 08:40; Admin Dose 17 GM; Start 01/27/19 at 09:00 Prednisolone Acetate (Pred-Forte 1%) 1 drop BID RIGHT EYE Last administered on 02/17/19 09:30; Admin Dose 1 DROP; Start 01/26/19 at 21:00 Insulin Aspart (Novolog Insulin Pen) NOVOLOG *MODERATE* ALGORITHM WITH MEALS BEDTIME SC Last administered on 02/17/19 12:30; Admin Dose 2 UNIT; Start 01/26/19 at 21:00 Heparin Sodium (Porcine) (Heparin (5000 Units/1ml)) 5,000 unit BID SC Last administered on 02/17/19 09:30; Admin Dose 5,000 UNIT; Start 01/26/19 at 21:00 Morphine Sulfate (morphine) 2 mg Q4H PRN IV SEVERE PAIN LEVEL 7-10 Last administered on 02/14/19 08:12; Admin Dose 2 MG; Start 01/26/19 at 20:30 Miscellaneous Information 1 ea NOTE XX ; Start 01/26/19 at 23:45 Glucose (Glutose) 15 gm Q15M PRN PO DECREASED GLUCOSE; Start 01/26/19 at 23:45 Glucose (Glutose) 22.5 gm Q15M PRN PO DECREASED GLUCOSE; Start 01/26/19 at 23:45 Dextrose (D50w Syringe) 25 ml Q15M PRN IV DECREASED GLUCOSE Last administered on 01/28/19 07:50; Admin Dose 25 ML; Start 01/26/19 at 23:45 Dextrose (D50w Syringe) 50 ml Q15M PRN IV DECREASED GLUCOSE; Start 01/26/19 at 23:45 Glucagon (Glucagen) 1 mg Q15M PRN IM DECREASED GLUCOSE; Start 01/26/19 at 23:45 Glucose (Glutose) 15 gm Q15M PRN BUCCAL DECREASED GLUCOSE; Start 01/26/19 at 23:45 Alteplase, Recombinant (Cathflo (Activase)) 2 mg MAY REPEAT X1 PRN CATHETER IF CATHETER REMAINS OCCULUDED Last administered on 02/02/19 23:09; Admin Dose 2 MG; Start 01/27/19 at 07:00 Tramadol HCl (Ultram) 50 mg Q6H PO Last administered on 02/16/19 21:32; Admin Dose 50 MG; Start 01/27/19 at 08:00 Collagenase (Santyl) 1 applic DAILY TOP Last administered on 02/17/19 09:28; Admin Dose 1 APPLIC; Start 01/28/19 at 09:00 Lorazepam (Ativan) 1 mg Q8H PRN PO ANXIETY; Start 01/27/19 at 22:30 Megestrol Acetate (Megace Susp) 400 mg DAILY PO Last administered on 02/12/19 09:34; Admin Dose 400 MG; Start 01/30/19 at 14:30 Lactulose (Enulose) 20 gm Q6H PRN PO CONSTIPATION; Start 02/04/19 at 11:00 Hydralazine HCl (Apresoline) 100 mg Q8 PO Last administered on 02/17/19 05:50; Admin Dose 100 MG; Start 02/04/19 at 14:00 Metoprolol Tartrate (Lopressor) 50 mg BID PO Last administered on 02/17/19 09:28; Admin Dose 50 MG; Start 02/08/19 at 21:00 Ondansetron HCl (Zofran Inj) 4 mg Q6H PRN IV NAUSEA AND/OR VOMITING Last administered on 02/13/19 12:09; Admin Dose 4 MG; Start 02/09/19 at 12:30 Epoetin Indra-epbx (Retacrit (Esrd)) 8,000 unit TuThSa@1700 SC Last administered on 02/16/19 17:28; Admin Dose 8,000 UNIT; Start 02/11/19 at 18:09 Amlodipine Besylate (Norvasc) 2.5 mg DAILY PO Last administered on 02/17/19at 09:26; Admin Dose 2.5 MG; Start 02/14/19 at 09:00 Sodium Hypochlorite (Dakin'S (Dilute )) 1 applic Q12 IRR Last administered on 02/17/19at 09:31; Admin Dose 1 APPLIC; Start 02/14/19 at 09:00 ALYX NAVARRO NP Feb 17, 2019 13:11
--- NOTE | 2019-02-17 16:17 | PN ---
Date/Time of Note Date/Time of Note DATE: 02/17/19 TIME: 16:15 Assessment/Plan VTE Prophylaxis Risk score (from Ns)>0 risk: 2 SCD applied (from Ns): Yes Pharmacological prophylaxis: heparin Lines/Catheters IV Catheter Type (from Nrs): PICC Line Central line still needed: Yes Urinary Cath still in place: No Assessment/Plan Hospital Course No acute events overnight patient remains hemodynamically stable, afebrile. DC planning. Per case management meeting in the morning no detention facility bed is available today. Assessment/Plan -Sacral and bilateral ischial infected wounds. Status post sacrum and right ischial debridement 01/29/19. Dr. Alamnza is following in general surgery consultation. Completed bax. Dr. Guevara is following in infection disease consultation. -HCAP with Left lower lobe infiltrate -Abdominal pain. Status post EGD with notion of gastritis. Continue PPI. Status post a colonoscopy with notion of hemorrhoids. -Moderate bilateral pleural effusion -Hemodialysis dependent end-stage renal disease. Continue on hemodialysis. Dr. Mcdaniel is following from nephrology standpoint. -Diabetes mellitus type 2. Continue Levemir and NovoLog per mild algorithm sliding scale. -Hypothyroidism, continue levothyroxine -Hypertension. -Hyperlipidemia, continue statin -Anemia -Left heel decubitus ulcer Stage 3, S/p evaluation by Dr Daíz in podiarty consultation. Pt refused debridement, continue current wound care, off loading. -MRSA of nares colonization. Contact isolation. -Right eye blindness. Further recommendations based on clinical course. Plan of care discussed with Dr. Mandel. Result Diagram: 02/17/1962702/17/19627 Results 24hrs Laboratory Tests Test 02/16/19 17:22 02/16/19 21:25 02/17/19 02:15 02/17/19 06:28 Bedside Glucose 195 206 159 White Blood Count 8.5 Red Blood Count 2.68 L Hemoglobin 7.8 L Hematocrit 25.8 L Mean Corpuscular 96.3 Volume Mean Corpuscular 29.1 Hemoglobin Mean Corpuscular 30.2 L Hemoglobin Concent Red Cell 17.2 H Distribution Width Platelet Count 168 Mean Platelet Volume 9.3 Immature 0.600 H Granulocytes % Neutrophils % 69.1 Lymphocytes % 13.2 L Monocytes % 16.3 H Eosinophils % 0.7 Basophils % 0.1 Nucleated Red Blood 0.0 Cells % Immature 0.050 H Granulocytes # Neutrophils # 5.9 Lymphocytes # 1.1 Monocytes # 1.4 H Eosinophils # 0.1 Basophils # 0.0 Nucleated Red Blood 0.0 Cells # Sodium Level 136 Potassium Level 3.5 Chloride Level 100 Carbon Dioxide Level 29 Anion Gap 7 Blood Urea Nitrogen 20 Creatinine 2.67 H Est Glomerular 18 L Filtrat Rate mL/min Glucose Level 136 Calcium Level 8.5 Test 02/17/19 08:06 02/17/19 12:27 Bedside Glucose 150 174 Exam/Review of Systems Exam Vitals Vital Signs Date Temp Pulse Resp B/P (MAP) Pulse Ox O2 O2 Flow FiO2 Time Delivery Rate 02/17/19 Nasal 2.0 08:15 Cannula 02/17/19 98.0 65 16 161/70 98 08:00 (100) Intake and Output 02/16/19 02/16/19 02/17/19 1515:00 23:00 07:00 IntakeIntake Total 100 ml 250 ml BalanceBalance 100 ml 250 ml Exam Constitutional: alert, oriented, lethargic Eyes: other (Right eye blindness) Respiratory: clear to auscultation Cardiovascular: regular rate and rhythm Gastrointestinal: soft, non-tender Musculoskeletal: nl extremities to inspection Extremities: normal pulses, edema, other (Right upper extremity AV fistula) Neurological: nl mental status Results Results 24hrs Laboratory Tests Test 02/16/19 17:22 02/16/19 21:25 02/17/19 02:15 02/17/19 06:28 Bedside Glucose 195 206 159 White Blood Count 8.5 Red Blood Count 2.68 L Hemoglobin 7.8 L Hematocrit 25.8 L Mean Corpuscular 96.3 Volume Mean Corpuscular 29.1 Hemoglobin Mean Corpuscular 30.2 L Hemoglobin Concent Red Cell 17.2 H Distribution Width Platelet Count 168 Mean Platelet Volume 9.3 Immature 0.600 H Granulocytes % Neutrophils % 69.1 Lymphocytes % 13.2 L Monocytes % 16.3 H Eosinophils % 0.7 Basophils % 0.1 Nucleated Red Blood 0.0 Cells % Immature 0.050 H Granulocytes # Neutrophils # 5.9 Lymphocytes # 1.1 Monocytes # 1.4 H Eosinophils # 0.1 Basophils # 0.0 Nucleated Red Blood 0.0 Cells # Sodium Level 136 Potassium Level 3.5 Chloride Level 100 Carbon Dioxide Level 29 Anion Gap 7 Blood Urea Nitrogen 20 Creatinine 2.67 H Est Glomerular 18 L Filtrat Rate mL/min Glucose Level 136 Calcium Level 8.5 Test 02/17/19 08:06 02/17/19 12:27 Bedside Glucose 150 174 Medications Medication Current Medications Amiodarone HCl (Cordarone) 200 mg DAILY PO Last administered on 02/17/19 09:27; Admin Dose 200 MG; Start 01/27/19 at 09:00 Atorvastatin Calcium (Lipitor) 20 mg QHS PO Last administered on 02/16/19 21:32; Admin Dose 20 MG; Start 01/26/19 at 21:00 Bisacodyl (Dulcolax) 10 mg Q24H PRN PO CONSTIPATION; Start 01/26/19 at 20:00 Citalopram Hydrobromide (Celexa) 20 mg DAILY PO Last administered on 02/17/19 09:27; Admin Dose 20 MG; Start 01/27/19 at 09:00 Docusate Sodium (Colace) 100 mg BID PO Last administered on 02/17/19 09:27; Admin Dose 100 MG; Start 01/26/19 at 21:00 Folic Acid (Folic Acid) 1 mg DAILY PO Last administered on 02/17/19 09:27; Admin Dose 1 MG; Start 01/27/19 at 09:00 Levothyroxine Sodium (Synthroid) 100 mcg BEFORE BREAKFAST PO Last administered on 02/17/19 05:50; Admin Dose 100 MCG; Start 01/27/19 at 07:00 Metoclopramide HCl (Reglan) 5 mg BEFORE MEALS PO Last administered on 02/17/19 12:32; Admin Dose 5 MG; Start 01/27/19 at 07:30 Multivit/Ca Carb/ B Cmplx/FA/Prenat (Wendi-Cathi) 1 tab DAILY PO Last administered on 02/17/19 09:26; Admin Dose 1 TAB; Start 01/27/19 at 09:00 Ondansetron HCl (Zofran Tab) 4 mg Q6H PRN PO NAUSEA AND/OR VOMITING Last administered on 01/30/19 10:43; Admin Dose 4 MG; Start 01/26/19 at 20:00 Pantoprazole (Protonix Tab) 40 mg DAILY PO Last administered on 02/17/19 09 :27; Admin Dose 40 MG; Start 01/27/19 at 09:00 Polyethylene Glycol (Miralax) 17 gm DAILY PO Last administered on 02/09/19 08:40; Admin Dose 17 GM; Start 01/27/19 at 09:00 Prednisolone Acetate (Pred-Forte 1%) 1 drop BID RIGHT EYE Last administered on 02/17/19 09:30; Admin Dose 1 DROP; Start 01/26/19 at 21:00 Insulin Aspart (Novolog Insulin Pen) NOVOLOG *MODERATE* ALGORITHM WITH MEALS BEDTIME SC Last administered on 02/17/19 12:30; Admin Dose 2 UNIT; Start 01/26/19 at 21:00 Heparin Sodium (Porcine) (Heparin (5000 Units/1ml)) 5,000 unit BID SC Last administered on 02/17/19 09:30; Admin Dose 5,000 UNIT; Start 01/26/19 at 21:00 Morphine Sulfate (morphine) 2 mg Q4H PRN IV SEVERE PAIN LEVEL 7-10 Last administered on 02/14/19 08:12; Admin Dose 2 MG; Start 01/26/19 at 20:30 Miscellaneous Information 1 ea NOTE XX ; Start 01/26/19 at 23:45 Glucose (Glutose) 15 gm Q15M PRN PO DECREASED GLUCOSE; Start 01/26/19 at 23:45 Glucose (Glutose) 22.5 gm Q15M PRN PO DECREASED GLUCOSE; Start 01/26/19 at 23:45 Dextrose (D50w Syringe) 25 ml Q15M PRN IV DECREASED GLUCOSE Last administered on 01/28/19 07:50; Admin Dose 25 ML; Start 01/26/19 at 23:45 Dextrose (D50w Syringe) 50 ml Q15M PRN IV DECREASED GLUCOSE; Start 01/26/19 at 23:45 Glucagon (Glucagen) 1 mg Q15M PRN IM DECREASED GLUCOSE; Start 01/26/19 at 23:45 Glucose (Glutose) 15 gm Q15M PRN BUCCAL DECREASED GLUCOSE; Start 01/26/19 at 2 3:45 Alteplase, Recombinant (Cathflo (Activase)) 2 mg MAY REPEAT X1 PRN CATHETER IF CATHETER REMAINS OCCULUDED Last administered on 02/02/19 23:09; Admin Dose 2 MG; Start 01/27/19 at 07:00 Tramadol HCl (Ultram) 50 mg Q6H PO Last administered on 02/16/19 21:32; Admin Dose 50 MG; Start 01/27/19 at 08:00 Collagenase (Santyl) 1 applic DAILY TOP Last administered on 02/17/19 09:28; Admin Dose 1 APPLIC; Start 01/28/19 at 09:00 Lorazepam (Ativan) 1 mg Q8H PRN PO ANXIETY; Start 01/27/19 at 22:30 Megestrol Acetate (Megace Susp) 400 mg DAILY PO Last administered on 02/12/19 09:34; Admin Dose 400 MG; Start 01/30/19 at 14:30 Lactulose (Enulose) 20 gm Q6H PRN PO CONSTIPATION; Start 02/04/19 at 11:00 Hydralazine HCl (Apresoline) 100 mg Q8 PO Last administered on 02/17/19 15:14; Admin Dose 100 MG; Start 02/04/19 at 14:00 Metoprolol Tartrate (Lopressor) 50 mg BID PO Last administered on 02/17/19 09:28; Admin Dose 50 MG; Start 02/08/19 at 21:00 Ondansetron HCl (Zofran Inj) 4 mg Q6H PRN IV NAUSEA AND/OR VOMITING Last administered on 02/13/19 12:09; Admin Dose 4 MG; Start 02/09/19 at 12:30 Epoetin Indra-epbx (Retacrit (Esrd)) 8,000 unit TuThSa@1700 SC Last administered on 02/16/19 17:28; Admin Dose 8,000 UNIT; Start 02/11/19 at 18:09 Amlodipine Besylate (Norvasc) 2.5 mg DAILY PO Last administered on 02/17/19 09:26; Admin Dose 2.5 MG; Start 02/14/19 at 09:00 Sodium Hypochlorite (Dakin'S (Dilute 40)) 1 applic Q12 IRR Last administered on 02/17/19 09:31; Admin Dose 1 APPLIC; Start 02/14/19 at 09:00 SIN IZAGUIRRE Feb 17, 2019 16:17
--- NOTE | 2019-02-17 16:32 | CONS ---
Assessment/Plan Assessment/Plan Assessment/Plan (Daily) - ESRD on Hemodialysis - Anemia of Chronic Disease - DM / DM Nephropathy - CAD / CHF - Hypoalbuminia - Hypothyroid - Failure to thrive - Leukocytosis - Non healing wound PLAN: Bedside dialysis Aim for UD ~ 1-2 liter as tolerates IV Antibiotics Local wound care Follow up on H/H ( on long acting EPO as out patient ) High protein diet / Supplements Had HD yesterday Plan for HD next 01/29/2019 Monitor H/H High Protein diet More awake & alert Poor appetite with low albumin High protein diet Add Nepro supplement Add Megace Increase EPO Check IRON Bedside dialysis 01/29/2019 using 3K+ bath today Post debridement of the sacral wound Next HD Friday Increase protein Diet Continue with planned dialysis on [facility] increase protein intake + supplement Follow up with H/H Events noted Bedside dialysis Aim for 1-2 liter off EPOGEN for anemia Follow up with IRON Levels Continue with HD MWF Consultation Date/Type/Reason Admit Date/Time Jan 26, 2019 at 17:32 Initial Consult Date 01/27/19 Type of Consult - Nephrology ( Dialysis Dependent ) Requesting Provider: ALEXUS VALENCIA MD Date/Time of Note DATE: 02/17/19 TIME: 16:32 24 HR Interval Summary Constitutional: no complaints, improved Exam/Review of Systems Exam Vitals Vital Signs Date Temp Pulse Resp B/P (MAP) Pulse Ox O2 O2 Flow FiO2 Time Delivery Rate 02/17/19 Nasal 2.0 08:15 Cannula 02/17/19 98.0 65 16 161/70 98 08:00 (100) Intake and Output 02/16/19 02/16/19 02/17/19 1515:00 23:00 07:00 IntakeIntake Total 100 ml 250 ml BalanceBalance 100 ml 250 ml Constitutional: alert, oriented Respiratory: crackles/rales Cardiovascular: regular rate and rhythm, systolic murmur Gastrointestinal: soft Results Result Diagram: 02/17/19 0628 02/17/19 0628 Results 24hrs Laboratory Tests Test 02/16/19 17:22 02/16/19 21:25 02/17/19 02:15 02/17/19 06:28 Bedside Glucose 195 206 159 White Blood Count 8.5 Red Blood Count 2.68 L Hemoglobin 7.8 L Hematocrit 25.8 L Mean Corpuscular 96.3 Volume Mean Corpuscular 29.1 Hemoglobin Mean Corpuscular 30.2 L Hemoglobin Concent Red Cell 17.2 H Distribution Width Platelet Count 168 Mean Platelet Volume 9.3 Immature 0.600 H Granulocytes % Neutrophils % 69.1 Lymphocytes % 13.2 L Monocytes % 16.3 H Eosinophils % 0.7 Basophils % 0.1 Nucleated Red Blood 0.0 Cells % Immature 0.050 H Granulocytes # Neutrophils # 5.9 Lymphocytes # 1.1 Monocytes # 1.4 H Eosinophils # 0.1 Basophils # 0.0 Nucleated Red Blood 0.0 Cells # Sodium Level 136 Potassium Level 3.5 Chloride Level 100 Carbon Dioxide Level 29 Anion Gap 7 Blood Urea Nitrogen 20 Creatinine 2.67 H Est Glomerular 18 L Filtrat Rate mL/min Glucose Level 136 Calcium Level 8.5 Test 02/17/19 08:06 02/17/19 12:27 Bedside Glucose 150 174 Medications Medication Current Medications Amiodarone HCl (Cordarone) 200 mg DAILY PO Last administered on 02/17/19 09:27; Admin Dose 200 MG; Start 01/27/19 at 09:00 Atorvastatin Calcium (Lipitor) 20 mg QHS PO Last administered on 02/16/19 21:32; Admin Dose 20 MG; Start 01/26/19 at 21:00 Bisacodyl (Dulcolax) 10 mg Q24H PRN PO CONSTIPATION; Start 01/26/19 at 20:00 Citalopram Hydrobromide (Celexa) 20 mg DAILY PO Last administered on 02/17/19 09:27; Admin Dose 20 MG; Start 01/27/19 at 09:00 Docusate Sodium (Colace) 100 mg BID PO Last administered on 02/17/19 09:27; Admin Dose 100 MG; Start 01/26/19 at 21:00 Folic Acid (Folic Acid) 1 mg DAILY PO Last administered on 02/17/19 09:27; Admin Dose 1 MG; Start 01/27/19 at 09:00 Levothyroxine Sodium (Synthroid) 100 mcg BEFORE BREAKFAST PO Last administered on 02/17/19 05:50; Admin Dose 100 MCG; Start 01/27/19 at 07:00 Metoclopramide HCl (Reglan) 5 mg BEFORE MEALS PO Last administered on 02/17/19 12:32; Admin Dose 5 MG; Start 01/27/19 at 07:30 Multivit/Ca Carb/ B Cmplx/FA/Prenat (Wendi-Cathi) 1 tab DAILY PO Last administered on 02/17/19 09:26; Admin Dose 1 TAB; Start 01/27/19 at 09:00 Ondansetron HCl (Zofran Tab) 4 mg Q6H PRN PO NAUSEA AND/OR VOMITING Last administered on 01/30/19 10:43; Admin Dose 4 MG; Start 01/26/19 at 20:00 Pantoprazole (Protonix Tab) 40 mg DAILY PO Last administered on 02/17/19 09:27; Admin Dose 40 MG; Start 01/27/19 at 09:00 Polyethylene Glycol (Miralax) 17 gm DAILY PO Last administered on 02/09/19 08:40; Admin Dose 17 GM; Start 01/27/19 at 09:00 Prednisolone Acetate (Pred-Forte 1%) 1 drop BID RIGHT EYE Last administered on 02/17/19 09:30; Admin Dose 1 DROP; Start 01/26/19 at 21:00 Insulin Aspart (Novolog Insulin Pen) NOVOLOG *MODERATE* ALGORITHM WITH MEALS BEDTIME SC Last administered on 02/17/19 12:30; Admin Dose 2 UNIT; Start 01/26/19 at 21:00 Heparin Sodium (Porcine) (Heparin (5000 Units/1ml)) 5,000 unit BID SC Last a dministered on 02/17/19 09:30; Admin Dose 5,000 UNIT; Start 01/26/19 at 21:00 Morphine Sulfate (morphine) 2 mg Q4H PRN IV SEVERE PAIN LEVEL 7-10 Last administered on 02/14/19 08:12; Admin Dose 2 MG; Start 01/26/19 at 20:30 Miscellaneous Information 1 ea NOTE XX ; Start 01/26/19 at 23:45 Glucose (Glutose) 15 gm Q15M PRN PO DECREASED GLUCOSE; Start 01/26/19 at 23:45 Glucose (Glutose) 22.5 gm Q15M PRN PO DECREASED GLUCOSE; Start 01/26/19 at 23:45 Dextrose (D50w Syringe) 25 ml Q15M PRN IV DECREASED GLUCOSE Last administered on 01/28/19 07:50; Admin Dose 25 ML; Start 01/26/19 at 23:45 Dextrose (D50w Syringe) 50 ml Q15M PRN IV DECREASED GLUCOSE; Start 01/26/19 at 23:45 Glucagon (Glucagen) 1 mg Q15M PRN IM DECREASED GLUCOSE; Start 01/26/19 at 23:45 Glucose (Glutose) 15 gm Q15M PRN BUCCAL DECREASED GLUCOSE; Start 01/26/19 at 23:45 Alteplase, Recombinant (Cathflo (Activase)) 2 mg MAY REPEAT X1 PRN CATHETER IF CATHETER REMAINS OCCULUDED Last administered on 02/02/19 23:09; Admin Dose 2 MG; Start 01/27/19 at 07:00 Tramadol HCl (Ultram) 50 mg Q6H PO Last administered on 02/16/19 21:32; Admin Dose 50 MG; Start 01/27/19 at 08:00 Collagenase (Santyl) 1 applic DAILY TOP Last administered on 02/17/19 09:28; Admin Dose 1 APPLIC; Start 01/28/19 at 09:00 Lorazepam (Ativan) 1 mg Q8H PRN PO ANXIETY; Start 01/27/19 at 22:30 Megestrol Acetate (Megace Susp) 400 mg DAILY PO Last administered on 02/12/19 09:34; Admin Dose 400 MG; Start 01/30/19 at 14:30 Lactulose (Enulose) 20 gm Q6H PRN PO CONSTIPATION; Start 02/04/19 at 11:00 Hydralazine HCl (Apresoline) 100 mg Q8 PO Last administered on 02/17/19 15:14; Admin Dose 100 MG; Start 02/04/19 at 14:00 Metoprolol Tartrate (Lopressor) 50 mg BID PO Last administered on 02/17/19 09:28; Admin Dose 50 MG; Start 02/08/19 at 21:00 Ondansetron HCl (Zofran Inj) 4 mg Q6H PRN IV NAUSEA AND/OR VOMITING Last administered on 02/13/19 12:09; Admin Dose 4 MG; Start 02/09/19 at 12:30 Epoetin Indra-epbx (Retacrit (Esrd)) 8,000 unit TuThSa@1700 SC Last administered on 02/16/19 17:28; Admin Dose 8,000 UNIT; Start 02/11/19 at 18:09 Amlodipine Besylate (Norvasc) 2.5 mg DAILY PO Last administered on 02/17/19 09:26; Admin Dose 2.5 MG; Start 02/14/19 at 09:00 Sodium Hypochlorite (Dakin'S (Dilute )) 1 applic Q12 IRR Last administered on 02/17/19 09:31; Admin Dose 1 APPLIC; Start 02/14/19 at 09:00 ANIBAL ALMANZAR MD Feb 17, 2019 16:32
--- NOTE | 2019-02-17 19:56 | PN ---
Date/Time of Note Date/Time of Note DATE: 02/17/19 TIME: 19:43 Assessment/Plan Lines/Catheters IV Catheter Type (from Nrs): PICC Line [place] in Place (from Nrs): No Assessment/Plan Chief Complaint/Hosp Course 1. Sacral and bilateral ischial wounds: wnd cx noted; status post sacrum and right ischial debridement 01/29/19 -Further debridement as needed -Continue local care> Can follow with Dr. Almanza as outpatient in wound clinic. -frequent turning and off-loading -low air loss mattress -vitamin c -short term zinc -optimize nutrition -Per podiatry consult for heel wound 2. Abdominal pain and generalized weakness: Status post EGD: Gastritis; no acute abd pain -further w/u per med team -PPI 3. ESRD -limit nephrotoxins -HD per renal -renally dose meds 4. Anemia: -monitor and transfuse as needed 5. Diabetes with episodes of hypoglycemia; no hypoglycemia episodes-sugar control much improved -glucose management 6. Hypothyroidism -med mgt 7. Pleural effusions: Persistent -fluid management Thank you. Patient seen and examined in collaboration with Dr. Simón Almanza. Subjective 24 Hr Interval Summary Some sacral discomfort. No fevers, chills, sob, congested cough, cp, palpitations, hoffman, dizziness, n/v/d/dysuria. wbc normalized Exam/Review of Systems Vital Signs Vitals Vital Signs Date Temp Pulse Resp B/P (MAP) Pulse Ox O2 O2 Flow FiO2 Time Delivery Rate 02/17/19 3.0 18:37 02/17/19 98.0 64 17 116/63 95 Nasal 14:00 (80) Cannula Intake and Output 02/16/19 02/16/19 02/17/19 1515:00 23:00 07:00 IntakeIntake Total 100 ml 250 ml BalanceBalance 100 ml 250 ml Exam Free Text/Dictation Constitutional: alert, oriented, obese Psych: normal mood Head: normocephalic, atraumatic Eyes: nl conjunctiva, EOMI, nl lids, nl sclera ENMT: nl external ears & nose, nl lips & teeth, mucosa pink and moist Neck: supple, non-tender; No jvd Respiratory: normal air movement; No congested cough, No labored breathing Cardiovascular: regular rate and rhythm, nl pulses; No edema Gastrointestinal: soft, non-tender, distended Genitourinary - Female: nl external genitalia Musculoskeletal: nl extremities to inspection, nl gait and stance Extremities: normal pulses Neurological: nl mental status, nl speech, nl strength Skin: other (sacral: Packed, no odor, minimal periwound erythema, min slough; r ight ischium: Packed, improved odor; left ischium: unstageable; left heel: Open wound); No rash or lesions Results Result Diagram: 02/17/19 0628 02/17/19 0628 ARSLAN COATES NP Feb 17, 2019 19:55
--- NOTE | 2019-02-17 21:11 | CONS ---
Assessment/Plan Assessment/Plan Hospital Course (Demo Recall) IMPRESSION: 1. Preop evaluation. The patient to undergo EGD whose 2D echo I just read revealing EF lower limits of normal, approximately 50% with no significant contraindicated valvular lesions and negative troponin x1 since admit, patient is okay to proceed at a moderate cardiovascular risk. Now post-op s/p endoscopy and debridement of decub ulcer 2. Congestive heart failure, diastolic acute on chronic. 3. Hypertension-labile but overall reasonable 4. Cardiac arrhythmia, on amiodarone, in sinus rhythm by EKG. 5. Hypothyroidism. 6. Diabetes mellitus. 7. Nausea and vomiting. 8. Generalized weakness. 9. Decubitus ulcers s/p debridement 10. Anemia. 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 12.CKD on HD Recc: -Tele -Contineu BB/hydralazine/CCB and follow labile but currently reasonable BP c losely -continue statin -Continue amiodarone -Continue abx's and f/u cx data per ID -local wound care -HD for volume removal Consultation Date/Type/Reason Admit Date/Time Jan 26, 2019 at 17:32 Initial Consult Date 01/27/19 Type of Consult Cardiology Reason for Consultation HTN/CHF Requesting Provider: ALEXUS VALENCIA MD Date/Time of Note DATE: 02/17/19 TIME: 21:09 Exam/Review of Systems Vital Signs Vitals Vital Signs Date Temp Pulse Resp B/P (MAP) Pulse Ox O2 O2 Flow FiO2 Time Delivery Rate 02/17/19 3.0 20:24 02/17/19 98.3 65 18 139/66 98 20:00 (90) 02/17/19 Nasal 14:00 Cannula Intake and Output 02/16/19 02/16/19 02/17/19 1515:00 23:00 07:00 IntakeIntake Total 100 ml 250 ml BalanceBalance 100 ml 250 ml Exam Exam Review of Systems: CONSTITUTIONAL: No fevers, chills. PULMONARY: No sob CARDIOVASCULAR: No chest pain/palpitations GASTROINTESTINAL: No nausea/vomiting. GENITOURINARY: No hematuria/dysuria. MUSCULOSKELETAL: No myagias/arthalgias. PSYCHIATRIC: The patient denies depression. NEUROLOGIC: No weakness Constitutional: alert, oriented Psych: no complaints Head: normocephalic ENMT: mucosa pink and moist Neck: supple, jvd (9 cm water) Respiratory: diminished breath sounds Cardiovascular: regular rate and rhythm Gastrointestinal: soft, non-tender Musculoskeletal: muscle tone (normal) Extremities: edema (none) Neurological: other (NO focal deficits) Labs Result Diagram: 02/17/1962702/17/19627 Results 24hrs Laboratory Tests Test 02/16/19 21:25 02/17/19 02:15 02/17/19 06:28 02/17/19 08:06 Bedside Glucose 206 159 150 White Blood Count 8.5 Red Blood Count 2.68 L Hemoglobin 7.8 L Hematocrit 25.8 L Mean Corpuscular 96.3 Volume Mean Corpuscular 29.1 Hemoglobin Mean Corpuscular 30.2 L Hemoglobin Concent Red Cell 17.2 H Distribution Width Platelet Count 168 Mean Platelet Volume 9.3 Immature 0.600 H Granulocytes % Neutrophils % 69.1 Lymphocytes % 13.2 L Monocytes % 16.3 H Eosinophils % 0.7 Basophils % 0.1 Nucleated Red Blood 0.0 Cells % Immature 0.050 H Granulocytes # Neutrophils # 5.9 Lymphocytes # 1.1 Monocytes # 1.4 H Eosinophils # 0.1 Basophils # 0.0 Nucleated Red Blood 0.0 Cells # Sodium Level 136 Potassium Level 3.5 Chloride Level 100 Carbon Dioxide Level 29 Anion Gap 7 Blood Urea Nitrogen 20 Creatinine 2.67 H Est Glomerular 18 L Filtrat Rate mL/min Glucose Level 136 Calcium Level 8.5 Test 02/17/19 12:27 02/17/19 17:40 02/17/19 20:52 Bedside Glucose 174 199 159 Medications Medications Current Medications Amiodarone HCl (Cordarone) 200 mg DAILY PO Last administered on 02/17/19at 09:27; Admin Dose 200 MG; Start 01/27/19 at 09:00 Atorvastatin Calcium (Lipitor) 20 mg QHS PO Last administered on 02/16/19at 21:32; Admin Dose 20 MG; Start 01/26/19 at 21:00 Bisacodyl (Dulcolax) 10 mg Q24H PRN PO CONSTIPATION; Start 01/26/19 at 20:00 Citalopram Hydrobromide (Celexa) 20 mg DAILY PO Last administered on 02/17/19at 09:27; Admin Dose 20 MG; Start 01/27/19 at 09:00 Docusate Sodium (Colace) 100 mg BID PO Last administered on 02/17/19 09:27; Admin Dose 100 MG; Start 01/26/19 at 21:00 Folic Acid (Folic Acid) 1 mg DAILY PO Last administered on 02/17/19 09:27; Admin Dose 1 MG; Start 01/27/19 at 09:00 Levothyroxine Sodium (Synthroid) 100 mcg BEFORE BREAKFAST PO Last administered on 02/17/19 05:50; Admin Dose 100 MCG; Start 01/27/19 at 07:00 Metoclopramide HCl (Reglan) 5 mg BEFORE MEALS PO Last administered on 02/17/19 17:42; Admin Dose 5 MG; Start 01/27/19 at 07:30 Multivit/Ca Carb/ B Cmplx/FA/Prenat (Wendi-Cathi) 1 tab DAILY PO Last ad ministered on 02/17/19 09:26; Admin Dose 1 TAB; Start 01/27/19 at 09:00 Ondansetron HCl (Zofran Tab) 4 mg Q6H PRN PO NAUSEA AND/OR VOMITING Last administered on 01/30/19 10:43; Admin Dose 4 MG; Start 01/26/19 at 20:00 Pantoprazole (Protonix Tab) 40 mg DAILY PO Last administered on 02/17/19 09:2 7; Admin Dose 40 MG; Start 01/27/19 at 09:00 Polyethylene Glycol (Miralax) 17 gm DAILY PO Last administered on 02/09/19 08:40; Admin Dose 17 GM; Start 01/27/19 at 09:00 Prednisolone Acetate (Pred-Forte 1%) 1 drop BID RIGHT EYE Last administered on 02/17/19 09:30; Admin Dose 1 DROP; Start 01/26/19 at 21:00 Insulin Aspart (Novolog Insulin Pen) NOVOLOG *MODERATE* ALGORITHM WITH MEALS BEDTIME SC Last administered on 02/17/19 17:42; Admin Dose 4 UNIT; Start 01/26/19 at 21:00 Heparin Sodium (Porcine) (Heparin (5000 Units/1ml)) 5,000 unit BID SC Last administered on 02/17/19 09:30; Admin Dose 5,000 UNIT; Start 01/26/19 at 21:00 Morphine Sulfate (morphine) 2 mg Q4H PRN IV SEVERE PAIN LEVEL 7-10 Last administered on 02/14/19 08:12; Admin Dose 2 MG; Start 01/26/19 at 20:30 Miscellaneous Information 1 ea NOTE XX ; Start 01/26/19 at 23:45 Glucose (Glutose) 15 gm Q15M PRN PO DECREASED GLUCOSE; Start 01/26/19 at 23:45 Glucose (Glutose) 22.5 gm Q15M PRN PO DECREASED GLUCOSE; Start 01/26/19 at 23:45 Dextrose (D50w Syringe) 25 ml Q15M PRN IV DECREASED GLUCOSE Last administered on 01/28/19at 07:50; Admin Dose 25 ML; Start 01/26/19 at 23:45 Dextrose (D50w Syringe) 50 ml Q15M PRN IV DECREASED GLUCOSE; Start 01/26/19 at 23:45 Glucagon (Glucagen) 1 mg Q15M PRN IM DECREASED GLUCOSE; Start 01/26/19 at 23:45 Glucose (Glutose) 15 gm Q15M PRN BUCCAL DECREASED GLUCOSE; Start 01/26/19 at 23:45 Alteplase, Recombinant (Cathflo (Activase)) 2 mg MAY REPEAT X1 PRN CATHETER IF CATHETER REMAINS OCCULUDED Last administered on 02/02/19 23:09; Admin Dose 2 MG; Start 01/27/19 at 07:00 Tramadol HCl (Ultram) 50 mg Q6H PO Last administered on 02/17/19 18:40; Admin Dose 50 MG; Start 01/27/19 at 08:00 Collagenase (Santyl) 1 applic DAILY TOP Last administered on 02/17/19 09:28; Admin Dose 1 APPLIC; Start 01/28/19 at 09:00 Lorazepam (Ativan) 1 mg Q8H PRN PO ANXIETY; Start 01/27/19 at 22:30 Megestrol Acetate (Megace Susp) 400 mg DAILY PO Last administered on 02/12/19 09:34; Admin Dose 400 MG; Start 01/30/19 at 14:30 Lactulose (Enulose) 20 gm Q6H PRN PO CONSTIPATION; Start 02/04/19 at 11:00 Hydralazine HCl (Apresoline) 100 mg Q8 PO Last administered on 02/17/19at 15:14; Admin Dose 100 MG; Start 02/04/19 at 14:00 Metoprolol Tartrate (Lopressor) 50 mg BID PO Last administered on 02/17/19 09:28; Admin Dose 50 MG; Start 02/08/19 at 21:00 Ondansetron HCl (Zofran Inj) 4 mg Q6H PRN IV NAUSEA AND/OR VOMITING Last administered on 02/13/19 12:09; Admin Dose 4 MG; Start 02/09/19 at 12:30 Epoetin Indra-epbx (Retacrit (Esrd)) 8,000 unit TuThSa@1700 SC Last administered on 02/16/19 17:28; Admin Dose 8,000 UNIT; Start 02/11/19 at 18:09 Amlodipine Besylate (Norvasc) 2.5 mg DAILY PO Last administered on 02/17/19 09:26; Admin Dose 2.5 MG; Start 02/14/19 at 09:00 Sodium Hypochlorite (Dakin'S (Dilute )) 1 applic Q12 IRR Last administered on 02/17/19 09:31; Admin Dose 1 APPLIC; Start 02/14/19 at 09:00 ALIREZA LEE Feb 17, 2019 21:11
[2019-02-18] VITALS (12 sets, daily range): BP systolic 103–139; BP diastolic 47–67; PULSE 65–76; RESP 16–18
[2019-02-18] MEDS: ATORVASTATIN 20 MG TAB PO SCH ×2 (01:34→21:09)
[2019-02-18] MEDS: DOCUSATE SODIUM 100 MG CAP PO SCH ×3 (01:35→21:00)
[2019-02-18] MEDS: traMADol 50 MG TAB PO SCH ×4 (01:35→21:09)
[2019-02-18] MEDS: METOPROLOL 50 MG TAB PO SCH ×3 (01:36→21:11)
[2019-02-18] MEDS: LEVOTHYROXINE 100 MCG TAB PO SCH (06:36)
[2019-02-18] MEDS: CITALOPRAM 20 MG TAB PO SCH (08:16)
[2019-02-18] MEDS: PANTOPRAZOLE (EC) 40 MG TAB PO SCH (08:17)
[2019-02-18] MEDS: MULTIVIT/CA CARB/B CMPLX/FA TAB PO SCH (08:17)
[2019-02-18] MEDS: METOCLOPRAMIDE 5 MG TAB PO SCH ×3 (08:17→17:35)
[2019-02-18] MEDS: FOLIC ACID 1 MG TAB PO SCH (08:17)
[2019-02-18] MEDS: AMIODARONE 200 MG TAB PO SCH (08:18)
[2019-02-18] MEDS: POLYETHYLENE GLYCOL 17 GM PACKET PO SCH ×2 (08:19→08:37)
[2019-02-18] MEDS: MEGESTROL (40 MG/ML) 10ML CUP PO SCH (08:19)
[2019-02-18] MEDS: AMLODIPINE 2.5 MG TAB PO SCH (08:19)
[2019-02-18] MEDS: INSULIN ASPART [NOVOLOG] 3 ML PEN SC SCH ×4 (08:33→21:00)
[2019-02-18] MEDS: SODIUM HYPOCHLORITE (1/40) 1 LITER BTL IRR SCH ×2 (08:34→21:14)
[2019-02-18] MEDS: HEPARIN 5,000 UNIT/1 ML VIAL SC SCH ×2 (08:34→21:22)
[2019-02-18] MEDS: BALSAM PERU/CASTOR OIL 60 GM TUBE TOP SCH ×2 (08:35→21:12)
[2019-02-18] MEDS: PREDNISOLONE ACET 1% 5 ML OPH RIGHT EYE SCH ×2 (08:35→21:12)
[2019-02-18] MEDS: COLLAGENASE 5 GM (UD JAR) TOP SCH (08:35)
--- NOTE | 2019-02-18 12:40 | PN ---
Date/Time of Note Date/Time of Note DATE: 02/18/19 TIME: 12:39 Assessment/Plan Lines/Catheters IV Catheter Type (from Nrs): PICC Line [place] in Place (from Nrs): No Assessment/Plan Chief Complaint/Hosp Course 1. Sacral and bilateral ischial wounds: wnd cx noted; status post sacrum and right ischial debridement 01/29/19 -Further debridement as needed -Continue local care (same therapy)> Can follow with Dr. Almanza as outpatient in wound clinic. -frequent turning and off-loading -low air loss mattress -vitamin c -short term zinc -optimize nutrition -Per podiatry for heel wound 2. Abdominal pain and generalized weakness: Status post EGD: Gastritis; no acute abd pain -further w/u per med team -PPI 3. ESRD -limit nephrotoxins -HD per renal -renally dose meds 4. Anemia: -monitor and transfuse as needed 5. Diabetes with episodes of hypoglycemia; no hypoglycemia episodes-sugar control much improved -glucose management 6. Hypothyroidism -med mgt 7. Pleural effusions: Persistent -fluid management Thank you. Patient seen and examined in collaboration with Dr. Simón Almanza. Subjective 24 Hr Interval Summary Feels well. Minimal sacral pain-improved with repositioning. No fevers, chills, sob, congested cough, cp, palpitations, hoffman, dizziness, nausea, vomiting, diarrhea, dysuria. Exam/Review of Systems Vital Signs Vitals Vital Signs Date Temp Pulse Resp B/P (MAP) Pulse Ox O2 O2 Flow FiO2 Time Delivery Rate 02/18/19 Nasal 2.0 10:29 Cannula 02/18/19 98.1 65 18 134/59 100 07:45 (84) Intake and Output 02/17/19 02/17/19 02/18/19 1515:00 23:00 07:00 IntakeIntake Total 240 ml OutputOutput Total 2000 ml BalanceBalance 240 ml -2000 ml Exam Free Text/Dictation Constitutional: alert, oriented, obese Psych: normal mood Head: normocephalic, atraumatic Eyes: nl conjunctiva, EOMI, nl lids, nl sclera ENMT: nl external ears & nose, nl lips & teeth, mucosa pink and moist Neck: supple, non-tender; No jvd Respiratory: normal air movement; No congested cough, No labored breathing Cardiovascular: regular rate and rhythm, nl pulses; No edema Gastrointestinal: soft, non-tender, distended Genitourinary - Female: nl external genitalia Musculoskeletal: nl extremities to inspection, nl gait and stance Extremities: normal pulses Neurological: nl mental status, nl speech, nl strength Skin: other (sacral: Packed, no odor, minimal periwound erythema, min slough; right ischium: Packed, improved odor; left ischium: unstageable; left heel: Open wound); No rash or lesions Results Result Diagram: 02/17/1928 02/17/19627 ARSLAN COATES NP Feb 18, 2019 12:40
--- NOTE | 2019-02-18 12:54 | CONS ---
Assessment/Plan Assessment/Plan Hospital Course (Demo Recall) No acute events, awake, looks comfortable, afebrile Microbiology: sacral wound culture grew Proteus, E. coli ESBL, VRE, and MRSA==> treated Antimicrobials: completed PHYSICAL EXAMINATION: GENERAL: This is a fragile, wasted, well-developed, elderly woman, who is in no distress. HEENT: Head atraumatic, normocephalic. Sclerae anicteric. The patient has right eye blindness. Buccal mucosa pale, dry. NECK: Supple. CHEST: Rise symmetrical. Breath sounds diminished to bases. HEART: S1, S2. ABDOMEN: Obese, soft, bowel tones present. EXTREMITIES: Bilateral edema. SKIN: The patient has a large necrotic wounds on bilateral buttocks, left buttock and left posterior thigh area , also, necrotic wound. The patient has pressure sores on her left heel as well. Assessment: 1. Multiple necrotic infected wounds, s/p debridement 2. End-stage renal disease, hemodialysis dependent 3. Diabetes 4. Hypertension 5. MRSA colonization 6. HCAP 7. Gastroparesis 8. S/p UTI==> Proteus Plan: Remains stable, L foot cx noted==> colonized, continue local wound care, observe off abx Consultation Date/Type/Reason Admit Date/Time Jan 26, 2019 at 17:32 Initial Consult Date 01/27/19 Type of Consult id Requesting Provider: ALEXUS VALENCIA MD Date/Time of Note DATE: 02/18/19 TIME: 12:51 Exam/Review of Systems Exam Vitals Vital Signs Date Temp Pulse Resp B/P (MAP) Pulse Ox O2 O2 Flow FiO2 Time Delivery Rate 02/18/19 Nasal 2.0 10:29 Cannula 02/18/19 98.1 65 18 134/59 100 07:45 (84) Intake and Output 02/17/19 02/17/19 02/18/19 1515:00 23:00 07:00 IntakeIntake Total 240 ml OutputOutput Total 2000 ml BalanceBalance 240 ml -2000 ml Results Result Diagram: 02/17/19 0628 02/17/19 0628 Results 24hrs Laboratory Tests Test 02/17/19 17:40 02/17/19 20:52 02/18/19 08:05 02/18/19 12:18 Bedside Glucose 199 159 163 240 H Medications Medication Current Medications Amiodarone HCl (Cordarone) 200 mg DAILY PO Last administered on 02/18/19 08:18; Admin Dose 200 MG; Start 01/27/19 at 09:00 Atorvastatin Calcium (Lipitor) 20 mg QHS PO Last administered on 02/18/19 01:34; Admin Dose 20 MG; Start 01/26/19 at 21:00 Bisacodyl (Dulcolax) 10 mg Q24H PRN PO CONSTIPATION; Start 01/26/19 at 20:00 Citalopram Hydrobromide (Celexa) 20 mg DAILY PO Last administered on 02/18/19 08:16; Admin Dose 20 MG; Start 01/27/19 at 09:00 Docusate Sodium (Colace) 100 mg BID PO Last administered on 02/18/19 08:16; Admin Dose 100 MG; Start 01/26/19 at 21:00 Folic Acid (Folic Acid) 1 mg DAILY PO Last administered on 02/18/19 08:17; Admin Dose 1 MG; Start 01/27/19 at 09:00 Levothyroxine Sodium (Synthroid) 100 mcg BEFORE BREAKFAST PO Last administered on 02/18/19 06:36; Admin Dose 100 MCG; Start 01/27/19 at 07:00 Metoclopramide HCl (Reglan) 5 mg BEFORE MEALS PO Last administered on 02/18/19 12:18; Admin Dose 5 MG; Start 01/27/19 at 07:30 Multivit/Ca Carb/ B Cmplx/FA/Prenat (Wendi-Cathi) 1 tab DAILY PO Last administered on 02/18/19 08:17; Admin Dose 1 TAB; Start 01/27/19 at 09:00 Ondansetron HCl (Zofran Tab) 4 mg Q6H PRN PO NAUSEA AND/OR VOMITING Last administered on 01/30/19 10:43; Admin Dose 4 MG; Start 01/26/19 at 20:00 Pantoprazole (Protonix Tab) 40 mg DAILY PO Last administered on 02/18/19 08:17; Admin Dose 40 MG; Start 01/27/19 at 09:00 Polyethylene Glycol (Miralax) 17 gm DAILY PO Last administered on 02/09/19 08:40; Admin Dose 17 GM; Start 01/27/19 at 09:00 Prednisolone Acetate (Pred-Forte 1%) 1 drop BID RIGHT EYE Last administered on 02/18/19 08:35; Admin Dose 1 DROP; Start 01/26/19 at 21:00 Heparin Sodium (Porcine) (Heparin (5000 Units/1ml)) 5,000 unit BID SC Last administered on 02/18/19 08:34; Admin Dose 5,000 UNIT; Start 01/26/19 at 21:00 Morphine Sulfate (morphine) 2 mg Q4H PRN IV SEVERE PAIN LEVEL 7-10 Last administered on 02/14/19 08:12; Admin Dose 2 MG; Start 01/26/19 at 20:30 Miscellaneous Information 1 ea NOTE XX ; Start 01/26/19 at 23:45 Glucose (Glutose) 15 gm Q15M PRN PO DECREASED GLUCOSE; Start 01/26/19 at 23:45 Glucose (Glutose) 22.5 gm Q15M PRN PO DECREASED GLUCOSE; Start 01/26/19 at 23:45 Dextrose (D50w Syringe) 25 ml Q15M PRN IV DECREASED GLUCOSE Last administered on 01/28/19at 07:50; Admin Dose 25 ML; Start 01/26/19 at 23:45 Dextrose (D50w Syringe) 50 ml Q15M PRN IV DECREASED GLUCOSE; Start 01/26/19 at 23:45 Glucagon (Glucagen) 1 mg Q15M PRN IM DECREASED GLUCOSE; Start 01/26/19 at 23:45 Glucose (Glutose) 15 gm Q15M PRN BUCCAL DECREASED GLUCOSE; Start 01/26/19 at 23:45 Alteplase, Recombinant (Cathflo (Activase)) 2 mg MAY REPEAT X1 PRN CATHETER IF CATHETER REMAINS OCCULUDED Last administered on 02/02/19 23:09; Admin Dose 2 MG; Start 01/27/19 at 07:00 Tramadol HCl (Ultram) 50 mg Q6H PO Last administered on 02/18/19 08:18; Admin Dose 50 MG; Start 01/27/19 at 08:00 Collagenase (Santyl) 1 applic DAILY TOP Last administered on 02/18/19 08:35; Admin Dose 1 APPLIC; Start 01/28/19 at 09:00 Lorazepam (Ativan) 1 mg Q8H PRN PO ANXIETY; Start 01/27/19 at 22:30 Megestrol Acetate (Megace Susp) 400 mg DAILY PO Last administered on 02/18/19 08:19; Admin Dose 400 MG; Start 01/30/19 at 14:30 Lactulose (Enulose) 20 gm Q6H PRN PO CONSTIPATION; Start 02/04/19 at 11:00 Hydralazine HCl (Apresoline) 100 mg Q8 PO Last administered on 02/18/19 06:37; Admin Dose 100 MG; Start 02/04/19 at 14:00 Metoprolol Tartrate (Lopressor) 50 mg BID PO Last administered on 02/18/19 08:18; Admin Dose 50 MG; Start 02/08/19 at 21:00 Ondansetron HCl (Zofran Inj) 4 mg Q6H PRN IV NAUSEA AND/OR VOMITING Last administered on 02/13/19 12:09; Admin Dose 4 MG; Start 02/09/19 at 12:30 Epoetin Indra-epbx (Retacrit (Esrd)) 8,000 unit TuThSa@1700 SC Last administered on 02/16/19 17:28; Admin Dose 8,000 UNIT; Start 02/11/19 at 18:09 Amlodipine Besylate (Norvasc) 2.5 mg DAILY PO Last administered on 02/18/19 08:19; Admin Dose 2.5 MG; Start 02/14/19 at 09:00 Sodium Hypochlorite (Dakin'S (Dilute 40)) 1 applic Q12 IRR Last administered on 02/18/19 08:34; Admin Dose 1 APPLIC; Start 02/14/19 at 09:00 Insulin Aspart (Novolog Insulin Pen) NOVOLOG *MODERATE* ALGORITHM WITH MEALS BEDTIME SC Last administered on 02/18/19 12:20; Admin Dose 6 UNIT; Start 02/18/19 at 12:00 ALYX NAVARRO NP Feb 18, 2019 12:54
--- NOTE | 2019-02-18 13:27 | CONS ---
Assessment/Plan Assessment/Plan Assessment/Plan (Daily) - ESRD on Hemodialysis - Anemia of Chronic Disease - DM / DM Nephropathy - CAD / CHF - Hypoalbuminia - Hypothyroid - Failure to thrive - Leukocytosis - Non healing wound PLAN: Bedside dialysis Aim for UD ~ 1-2 liter as tolerates IV Antibiotics Local wound care Follow up on H/H ( on long acting EPO as out patient ) High protein diet / Supplements Had HD yesterday Plan for HD next 01/29/2019 Monitor H/H High Protein diet More awake & alert Poor appetite with low albumin High protein diet Add Nepro supplement Add Megace Increase EPO Check IRON Bedside dialysis 01/29/2019 using 3K+ bath today Post debridement of the sacral wound Next HD Friday Increase protein Diet Continue with planned dialysis on Encourage increase protein intake + supplement Follow up with H/H Events noted Bedside dialysis Aim for 1-2 liter off EPOGEN for anemia Follow up with IRON Levels Continue with HD MWF IV Iron 100 mg IV q dialysis days Consultation Date/Type/Reason Admit Date/Time Jan 26, 2019 at 17:32 Initial Consult Date 01/27/19 Type of Consult - Nephrology ( Dialysis Dependent ) Requesting Provider: ALEXUS VALENCIA MD Date/Time of Note DATE: 02/18/19 TIME: 13:26 24 HR Interval Summary Constitutional: no complaints, improved Exam/Review of Systems Exam Vitals Vital Signs Date Temp Pulse Resp B/P (MAP) Pulse Ox O2 O2 Flow FiO2 Time Delivery Rate 02/18/19 Nasal 2.0 10:29 Cannula 02/18/19 98.1 65 18 134/59 100 07:45 (84) Intake and Output 02/17/19 02/17/19 02/18/19 1515:00 23:00 07:00 IntakeIntake Total 240 ml OutputOutput Total 2000 ml BalanceBalance 240 ml -2000 ml Constitutional: alert Psych: no complaints Head: normocephalic Respiratory: crackles/rales Cardiovascular: regular rate and rhythm, systolic murmur Gastrointestinal: soft Results Result Diagram: 02/17/1962702/17/19627 Results 24hrs Laboratory Tests Test 02/17/19 17:40 02/17/19 20:52 02/18/19 08:05 02/18/19 12:18 Bedside Glucose 199 159 163 240 H Medications Medication Current Medications Amiodarone HCl (Cordarone) 200 mg DAILY PO Last administered on 02/18/19at 08:18; Admin Dose 200 MG; Start 01/27/19 at 09:00 Atorvastatin Calcium (Lipitor) 20 mg QHS PO Last administered on 02/18/19at 01:34; Admin Dose 20 MG; Start 01/26/19 at 21:00 Bisacodyl (Dulcolax) 10 mg Q24H PRN PO CONSTIPATION; Start 01/26/19 at 20:00 Citalopram Hydrobromide (Celexa) 20 mg DAILY PO Last administered on 02/18/19at 08:16; Admin Dose 20 MG; Start 01/27/19 at 09:00 Docusate Sodium (Colace) 100 mg BID PO Last administered on 02/18/19 08:16; Admin Dose 100 MG; Start 01/26/19 at 21:00 Folic Acid (Folic Acid) 1 mg DAILY PO Last administered on 02/18/19 08:17; Admin Dose 1 MG; Start 01/27/19 at 09:00 Levothyroxine Sodium (Synthroid) 100 mcg BEFORE BREAKFAST PO Last administered on 02/18/19 06:36; Admin Dose 100 MCG; Start 01/27/19 at 07:00 Metoclopramide HCl (Reglan) 5 mg BEFORE MEALS PO Last administered on 02/18/19 12:18; Admin Dose 5 MG; Start 01/27/19 at 07:30 Multivit/Ca Carb/ B Cmplx/FA/Prenat (Wendi-Cathi) 1 tab DAILY PO Last administ ered on 02/18/19 08:17; Admin Dose 1 TAB; Start 01/27/19 at 09:00 Ondansetron HCl (Zofran Tab) 4 mg Q6H PRN PO NAUSEA AND/OR VOMITING Last administered on 01/30/19 10:43; Admin Dose 4 MG; Start 01/26/19 at 20:00 Pantoprazole (Protonix Tab) 40 mg DAILY PO Last administered on 02/18/19 08:17; Admin Dose 40 MG; Start 01/27/19 at 09:00 Polyethylene Glycol (Miralax) 17 gm DAILY PO Last administered on 02/09/19 08:40; Admin Dose 17 GM; Start 01/27/19 at 09:00 Prednisolone Acetate (Pred-Forte 1%) 1 drop BID RIGHT EYE Last administered on 02/18/19 08:35; Admin Dose 1 DROP; Start 01/26/19 at 21:00 Heparin Sodium (Porcine) (Heparin (5000 Units/1ml)) 5,000 unit BID SC Last administered on 02/18/19 08:34; Admin Dose 5,000 UNIT; Start 01/26/19 at 21:00 Morphine Sulfate (morphine) 2 mg Q4H PRN IV SEVERE PAIN LEVEL 7-10 Last administered on 02/14/19 08:12; Admin Dose 2 MG; Start 01/26/19 at 20:30 Miscellaneous Information 1 ea NOTE XX ; Start 01/26/19 at 23:45 Glucose (Glutose) 15 gm Q15M PRN PO DECREASED GLUCOSE; Start 01/26/19 at 23:45 Glucose (Glutose) 22.5 gm Q15M PRN PO DECREASED GLUCOSE; Start 01/26/19 at 23:45 Dextrose (D50w Syringe) 25 ml Q15M PRN IV DECREASED GLUCOSE Last administered on 01/28/19at 07:50; Admin Dose 25 ML; Start 01/26/19 at 23:45 Dextrose (D50w Syringe) 50 ml Q15M PRN IV DECREASED GLUCOSE; Start 01/26/19 at 23:45 Glucagon (Glucagen) 1 mg Q15M PRN IM DECREASED GLUCOSE; Start 01/26/19 at 23:45 Glucose (Glutose) 15 gm Q15M PRN BUCCAL DECREASED GLUCOSE; Start 01/26/19 at 23:45 Alteplase, Recombinant (Cathflo (Activase)) 2 mg MAY REPEAT X1 PRN CATHETER IF CATHETER REMAINS OCCULUDED Last administered on 02/02/19at 23:09; Admin Dose 2 MG; Start 01/27/19 at 07:00 Tramadol HCl (Ultram) 50 mg Q6H PO Last administered on 02/18/19at 08:18; Admin Dose 50 MG; Start 01/27/19 at 08:00 Collagenase (Santyl) 1 applic DAILY TOP Last administered on 02/18/19at 08:35; Admin Dose 1 APPLIC; Start 01/28/19 at 09:00 Lorazepam (Ativan) 1 mg Q8H PRN PO ANXIETY; Start 01/27/19 at 22:30 Megestrol Acetate (Megace Susp) 400 mg DAILY PO Last administered on 02/18/19at 08:19; Admin Dose 400 MG; Start 01/30/19 at 14:30 Lactulose (Enulose) 20 gm Q6H PRN PO CONSTIPATION; Start 02/04/19 at 11:00 Hydralazine HCl (Apresoline) 100 mg Q8 PO Last administered on 02/18/19at 06:37; Admin Dose 100 MG; Start 02/04/19 at 14:00 Metoprolol Tartrate (Lopressor) 50 mg BID PO Last administered on 02/18/19at 08:18; Admin Dose 50 MG; Start 02/08/19 at 21:00 Ondansetron HCl (Zofran Inj) 4 mg Q6H PRN IV NAUSEA AND/OR VOMITING Last administered on 02/13/19 12:09; Admin Dose 4 MG; Start 02/09/19 at 12:30 Epoetin Indra-epbx (Retacrit (Esrd)) 8,000 unit TuThSa@1700 SC Last administered on 02/16/19 17:28; Admin Dose 8,000 UNIT; Start 02/11/19 at 18:09 Amlodipine Besylate (Norvasc) 2.5 mg DAILY PO Last administered on 02/18/19 08:19; Admin Dose 2.5 MG; Start 02/14/19 at 09:00 Sodium Hypochlorite (Dakin'S (Dilute )) 1 applic Q12 IRR Last administered on 02/18/19 08:34; Admin Dose 1 APPLIC; Start 02/14/19 at 09:00 Insulin Aspart (Novolog Insulin Pen) NOVOLOG *MODERATE* ALGORITHM WITH MEALS BEDTIME SC Last administered on 02/18/19 12:20; Admin Dose 6 UNIT; Start 02/18/19 at 12:00 ANIBAL ALMANZAR MD Feb 18, 2019 13:27
[2019-02-18] MEDS ORDERED: SOD FERRIC GLUC COMPLX 125 MG in SOD CHLORIDE 0.9% 100 ML IVPB SCH (15:00)
[2019-02-18] MEDS: EPOETIN ALFA-EPBX (ESRD) 4,000 UNIT/ML VIAL SC SCH (17:36)
--- NOTE | 2019-02-18 18:21 | PN ---
Date/Time of Note Date/Time of Note DATE: 02/18/19 TIME: 18:18 Assessment/Plan VTE Prophylaxis Risk score (from Ns)>0 risk: 9 SCD applied (from Ns): Yes Pharmacological prophylaxis: heparin Lines/Catheters IV Catheter Type (from Nrsg): PICC Line Central line still needed: Yes Urinary Cath still in place: No Assessment/Plan Hospital Course Patient is hemodynamically stable awake alert, started on appetite stimulant yesterday today patient p.o. intake is much better and therefore sugar is increased to 200 however patient has previously multiple episodes of h ypoglycemia so for right now is just continue to monitor and cover with NovoLog as needed per sliding scale. Patient can be discharged to halfway facility tomorrow after hemodialysis with current orders. Assessment/Plan -Sacral and bilateral ischial infected wounds. Status post sacrum and right ischial debridement 01/29/19. Dr. Almanza is following in general surgery consultation. Completed bax. Dr. Guevara is following in infection disease consultation. -HCAP with Left lower lobe infiltrate -Abdominal pain. Status post EGD with notion of gastritis. Continue PPI. Status post a colonoscopy with notion of hemorrhoids. -Moderate bilateral pleural effusion -Hemodialysis dependent end-stage renal disease. Continue on hemodialysis. Dr. Mcdaniel is following from nephrology standpoint. -Diabetes mellitus type 2. Continue Levemir and NovoLog per mild algorithm sliding scale. -Hypothyroidism, continue levothyroxine -Hypertension. -Hyperlipidemia, continue statin -Anemia -Left heel decubitus ulcer Stage 3, S/p evaluation by Dr Díaz in podiatry consultation. Pt refused debridement, continue current wound care, off loading. -MRSA of nares colonization. Contact isolation. -Right eye blindness. Further recommendations based on clinical course. Plan of care discussed with Dr. Mandel. Result Diagram: 02/17/19 0602/17/19627 Results 24hrs Laboratory Tests Test 02/17/19 20:52 02/18/19 08:05 02/18/19 12:18 02/18/19 17:34 Bedside Glucose 159 163 240 H 228 H Exam/Review of Systems Exam Vitals Vital Signs Date Temp Pulse Resp B/P (MAP) Pulse Ox O2 O2 Flow FiO2 Time Delivery Rate 02/18/19 98.4 69 16 132/60 99 Room Air 14:20 (84) 02/18/19 2.0 10:29 Intake and Output 02/17/19 02/17/19 02/18/19 1515:00 23:00 07:00 IntakeIntake Total 240 ml OutputOutput Total 2000 ml BalanceBalance 240 ml -2000 ml Exam Constitutional: alert, oriented, lethargic Eyes: other (Right eye blindness) Respiratory: clear to auscultation Cardiovascular: regular rate and rhythm Gastrointestinal: soft, non-tender Musculoskeletal: nl extremities to inspection Extremities: normal pulses, edema, other (Right upper extremity AV fistula) Neurological: nl mental status Results Results 24hrs Laboratory Tests Test 02/17/19 20:52 02/18/19 08:05 02/18/19 12:18 02/18/19 17:34 Bedside Glucose 159 163 240 H 228 H Medications Medication Current Medications Amiodarone HCl (Cordarone) 200 mg DAILY PO Last administered on 02/18/19 08:18; Admin Dose 200 MG; Start 01/27/19 at 09:00 Atorvastatin Calcium (Lipitor) 20 mg QHS PO Last administered on 02/18/19 01:34; Admin Dose 20 MG; Start 01/26/19 at 21:00 Bisacodyl (Dulcolax) 10 mg Q24H PRN PO CONSTIPATION; Start 01/26/19 at 20:00 Citalopram Hydrobromide (Celexa) 20 mg DAILY PO Last administered on 02/18/19 08:16; Admin Dose 20 MG; Start 01/27/19 at 09:00 Docusate Sodium (Colace) 100 mg BID PO Last administered on 02/18/19 08:16; Admin Dose 100 MG; Start 01/26/19 at 21:00 Folic Acid (Folic Acid) 1 mg DAILY PO Last administered on 02/18/19 08:17; Admin Dose 1 MG; Start 01/27/19 at 09:00 Levothyroxine Sodium (Synthroid) 100 mcg BEFORE BREAKFAST PO Last administered on 02/18/19 06:36; Admin Dose 100 MCG; Start 01/27/19 at 07:00 Metoclopramide HCl (Reglan) 5 mg BEFORE MEALS PO Last administered on 02/18/19 17:35; Admin Dose 5 MG; Start 01/27/19 at 07:30 Multivit/Ca Carb/ B Cmplx/FA/Prenat (Wendi-Cathi) 1 tab DAILY PO Last administered on 02/18/19 08:17; Admin Dose 1 TAB; Start 01/27/19 at 09:00 Ondansetron HCl (Zofran Tab) 4 mg Q6H PRN PO NAUSEA AND/OR VOMITING Last administered on 01/30/19 10:43; Admin Dose 4 MG; Start 01/26/19 at 20:00 Pantoprazole (Protonix Tab) 40 mg DAILY PO Last administered on 02/18/19 08:17; Admin Dose 40 MG; Start 01/27/19 at 09:00 Polyethylene Glycol (Miralax) 17 gm DAILY PO Last administered on 02/09/19 08:40; Admin Dose 17 GM; Start 01/27/19 at 09:00 Prednisolone Acetate (Pred-Forte 1%) 1 drop BID RIGHT EYE Last administered on 02/18/19 08:35; Admin Dose 1 DROP; Start 01/26/19 at 21:00 Heparin Sodium (Porcine) (Heparin (5000 Units/1ml)) 5,000 unit BID SC Last adm inistered on 02/18/19 08:34; Admin Dose 5,000 UNIT; Start 01/26/19 at 21:00 Morphine Sulfate (morphine) 2 mg Q4H PRN IV SEVERE PAIN LEVEL 7-10 Last administered on 02/14/19 08:12; Admin Dose 2 MG; Start 01/26/19 at 20:30 Miscellaneous Information 1 ea NOTE XX ; Start 01/26/19 at 23:45 Glucose (Glutose) 15 gm Q15M PRN PO DECREASED GLUCOSE; Start 01/26/19 at 23:45 Glucose (Glutose) 22.5 gm Q15M PRN PO DECREASED GLUCOSE; Start 01/26/19 at 23:45 Dextrose (D50w Syringe) 25 ml Q15M PRN IV DECREASED GLUCOSE Last administered on 01/28/19 07:50; Admin Dose 25 ML; Start 01/26/19 at 23:45 Dextrose (D50w Syringe) 50 ml Q15M PRN IV DECREASED GLUCOSE; Start 01/26/19 at 23:45 Glucagon (Glucagen) 1 mg Q15M PRN IM DECREASED GLUCOSE; Start 01/26/19 at 23:45 Glucose (Glutose) 15 gm Q15M PRN BUCCAL DECREASED GLUCOSE; Start 01/26/19 at 23:45 Alteplase, Recombinant (Cathflo (Activase)) 2 mg MAY REPEAT X1 PRN CATHETER IF CATHETER REMAINS OCCULUDED Last administered on 02/02/19 23:09; Admin Dose 2 M G; Start 01/27/19 at 07:00 Tramadol HCl (Ultram) 50 mg Q6H PO Last administered on 02/18/19 14:15; Admin Dose 50 MG; Start 01/27/19 at 08:00 Collagenase (Santyl) 1 applic DAILY TOP Last administered on 02/18/19 08:35; Admin Dose 1 APPLIC; Start 01/28/19 at 09:00 Lorazepam (Ativan) 1 mg Q8H PRN PO ANXIETY; Start 01/27/19 at 22:30 Megestrol Acetate (Megace Susp) 400 mg DAILY PO Last administered on 02/18/19 08:19; Admin Dose 400 MG; Start 01/30/19 at 14:30 Lactulose (Enulose) 20 gm Q6H PRN PO CONSTIPATION; Start 02/04/19 at 11:00 Hydralazine HCl (Apresoline) 100 mg Q8 PO Last administered on 02/18/19 14:15; Admin Dose 100 MG; Start 02/04/19 at 14:00 Metoprolol Tartrate (Lopressor) 50 mg BID PO Last administered on 02/18/19 08:18; Admin Dose 50 MG; Start 02/08/19 at 21:00 Ondansetron HCl (Zofran Inj) 4 mg Q6H PRN IV NAUSEA AND/OR VOMITING Last administered on 02/13/19 12:09; Admin Dose 4 MG; Start 02/09/19 at 12:30 Epoetin Indra-epbx (Retacrit (Esrd)) 8,000 unit TuThSa@1700 SC Last administered on 02/18/19 17:36; Admin Dose 8,000 UNIT; Start 02/11/19 at 18:09 Amlodipine Besylate (Norvasc) 2.5 mg DAILY PO Last administered on 02/18/19 08:19; Admin Dose 2.5 MG; Start 02/14/19 at 09:00 Sodium Hypochlorite (Dakin'S (Dilute )) 1 applic Q12 IRR Last administered on 02/18/19at 08:34; Admin Dose 1 APPLIC; Start 02/14/19 at 09:00 Insulin Aspart (Novolog Insulin Pen) NOVOLOG *MODERATE* ALGORITHM WITH MEALS BEDTIME SC Last administered on 02/18/19at 17:35; Admin Dose 6 UNIT; Start 02/18/19 at 12:00 Ferric Sodium Gluconate Complex 125 mg/Sodium Chloride 100 ml @ 100 mls/hr WITH DIALYSIS IVPB ; Start 02/18/19 at 15:00; Stop 02/20/19 at 15:59 SIN IZAGUIRRE Feb 18, 2019 18:21
--- NOTE | 2019-02-18 20:41 | CONS ---
Assessment/Plan Assessment/Plan Hospital Course (Demo Recall) IMPRESSION: 1. Preop evaluation. The patient to undergo EGD whose 2D echo I just read revealing EF lower limits of normal, approximately 50% with no significant contraindicated valvular lesions and negative troponin x1 since admit, patient is okay to proceed at a moderate cardiovascular risk. Now post-op s/p endoscopy and debridement of decub ulcer 2. Congestive heart failure, diastolic acute on chronic. 3. Hypertension-labile but overall reasonable 4. Cardiac arrhythmia, on amiodarone, in sinus rhythm by EKG. 5. Hypothyroidism. 6. Diabetes mellitus. 7. Nausea and vomiting. 8. Generalized weakness. 9. Decubitus ulcers s/p debridement 10. Anemia. 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 12.CKD on HD Recc: -Tele -Contineu BB/hydralazine/CCB and follow reasonably controlled BP closely -continue statin -Continue amiodarone -Continue abx's and f/u cx data per ID -local wound care -HD for volume removal Consultation Date/Type/Reason Admit Date/Time Jan 26, 2019 at 17:32 Initial Consult Date 01/27/19 Type of Consult Cardiology Reason for Consultation CHF Requesting Provider: ALEXUS VALENCIA MD Date/Time of Note DATE: 02/18/19 TIME: 20:39 Exam/Review of Systems Vital Signs Vitals Vital Signs Date Temp Pulse Resp B/P (MAP) Pulse Ox O2 O2 Flow FiO2 Time Delivery Rate 02/18/19 98.5 66 18 137/64 99 Room Air 20:00 (88) 02/18/19 2.0 10:29 Intake and Output 02/17/19 02/17/19 02/18/19 1515:00 23:00 07:00 IntakeIntake Total 240 ml OutputOutput Total 2000 ml BalanceBalance 240 ml -2000 ml Exam Exam Review of Systems: CONSTITUTIONAL: No fevers, chills. PULMONARY: No sob CARDIOVASCULAR: No chest pain/palpitations GASTROINTESTINAL: No nausea/vomiting. GENITOURINARY: No hematuria/dysuria. MUSCULOSKELETAL: No myagias/arthalgias. PSYCHIATRIC: The patient denies depression. NEUROLOGIC: No weakness Constitutional: alert, oriented Psych: no complaints Head: normocephalic ENMT: mucosa pink and moist Neck: supple, jvd (9 cm water) Respiratory: diminished breath sounds Cardiovascular: regular rate and rhythm Gastrointestinal: soft, non-tender Musculoskeletal: muscle tone (normal) Extremities: edema (none) Neurological: other (No focal deficits) Labs Result Diagram: 02/17/1962702/17/19627 Results 24hrs Laboratory Tests Test 02/17/19 20:52 02/18/19 08:05 02/18/19 12:18 02/18/19 17:34 Bedside Glucose 159 163 240 H 228 H Medications Medications Current Medications Amiodarone HCl (Cordarone) 200 mg DAILY PO Last administered on 02/18/19 08:18; Admin Dose 200 MG; Start 01/27/19 at 09:00 Atorvastatin Calcium (Lipitor) 20 mg QHS PO Last administered on 02/18/19 01:34; Admin Dose 20 MG; Start 01/26/19 at 21:00 Bisacodyl (Dulcolax) 10 mg Q24H PRN PO CONSTIPATION; Start 01/26/19 at 20:00 Citalopram Hydrobromide (Celexa) 20 mg DAILY PO Last administered on 02/18/19 08:16; Admin Dose 20 MG; Start 01/27/19 at 09:00 Docusate Sodium (Colace) 100 mg BID PO Last administered on 02/18/19 08:16; Admin Dose 100 MG; Start 01/26/19 at 21:00 Folic Acid (Folic Acid) 1 mg DAILY PO Last administered on 02/18/19 08:17; Adm in Dose 1 MG; Start 01/27/19 at 09:00 Levothyroxine Sodium (Synthroid) 100 mcg BEFORE BREAKFAST PO Last administered on 02/18/19 06:36; Admin Dose 100 MCG; Start 01/27/19 at 07:00 Metoclopramide HCl (Reglan) 5 mg BEFORE MEALS PO Last administered on 02/18/19 17:35; Admin Dose 5 MG; Start 01/27/19 at 07:30 Multivit/Ca Carb/ B Cmplx/FA/Prenat (Wendi-Cathi) 1 tab DAILY PO Last administered on 02/18/19 08:17; Admin Dose 1 TAB; Start 01/27/19 at 09:00 Ondansetron HCl (Zofran Tab) 4 mg Q6H PRN PO NAUSEA AND/OR VOMITING Last administered on 01/30/19 10:43; Admin Dose 4 MG; Start 01/26/19 at 20:00 Pantoprazole (Protonix Tab) 40 mg DAILY PO Last administered on 02/18/19 08:17; Admin Dose 40 MG; Start 01/27/19 at 09:00 Polyethylene Glycol (Miralax) 17 gm DAILY PO Last administered on 02/09/19 08:40; Admin Dose 17 GM; Start 01/27/19 at 09:00 Prednisolone Acetate (Pred-Forte 1%) 1 drop BID RIGHT EYE Last administered on 02/18/19 08:35; Admin Dose 1 DROP; Start 01/26/19 at 21:00 Heparin Sodium (Porcine) (Heparin (5000 Units/1ml)) 5,000 unit BID SC Last administered on 02/18/19 08:34; Admin Dose 5,000 UNIT; Start 01/26/19 at 21:00 Morphine Sulfate (morphine) 2 mg Q4H PRN IV SEVERE PAIN LEVEL 7-10 Last administered on 02/14/19 08:12; Admin Dose 2 MG; Start 01/26/19 at 20:30 Miscellaneous Information 1 ea NOTE XX ; Start 01/26/19 at 23:45 Glucose (Glutose) 15 gm Q15M PRN PO DECREASED GLUCOSE; Start 01/26/19 at 23:45 Glucose (Glutose) 22.5 gm Q15M PRN PO DECREASED GLUCOSE; Start 01/26/19 at 23:45 Dextrose (D50w Syringe) 25 ml Q15M PRN IV DECREASED GLUCOSE Last administered on 01/28/19 07:50; Admin Dose 25 ML; Start 01/26/19 at 23:45 Dextrose (D50w Syringe) 50 ml Q15M PRN IV DECREASED GLUCOSE; Start 01/26/19 at 23:45 Glucagon (Glucagen) 1 mg Q15M PRN IM DECREASED GLUCOSE; Start 01/26/19 at 23:45 Glucose (Glutose) 15 gm Q15M PRN BUCCAL DECREASED GLUCOSE; Start 01/26/19 at 23:45 Alteplase, Recombinant (Cathflo (Activase)) 2 mg MAY REPEAT X1 PRN CATHETER IF CATHETER REMAINS OCCULUDED Last administered on 02/02/19 23:09; Admin Dose 2 MG; Start 01/27/19 at 07:00 Tramadol HCl (Ultram) 50 mg Q6H PO Last administered on 02/18/19 14:15; Admin Dose 50 MG; Start 01/27/19 at 08:00 Collagenase (Santyl) 1 applic DAILY TOP Last administered on 02/18/19 08:35; Admin Dose 1 APPLIC; Start 01/28/19 at 09:00 Lorazepam (Ativan) 1 mg Q8H PRN PO ANXIETY; Start 01/27/19 at 22:30 Megestrol Acetate (Megace Susp) 400 mg DAILY PO Last administered on 02/18/19 08:19; Admin Dose 400 MG; Start 01/30/19 at 14:30 Lactulose (Enulose) 20 gm Q6H PRN PO CONSTIPATION; Start 02/04/19 at 11:00 Hydralazine HCl (Apresoline) 100 mg Q8 PO Last administered on 02/18/19 14:15; Admin Dose 100 MG; Start 02/04/19 at 14:00 Metoprolol Tartrate (Lopressor) 50 mg BID PO Last administered on 02/18/19 08:18; Admin Dose 50 MG; Start 02/08/19 at 21:00 Ondansetron HCl (Zofran Inj) 4 mg Q6H PRN IV NAUSEA AND/OR VOMITING Last administered on 02/13/19 12:09; Admin Dose 4 MG; Start 02/09/19 at 12:30 Epoetin Indra-epbx (Retacrit (Esrd)) 8,000 unit TuThSa@1700 SC Last administered on 02/18/19 17:36; Admin Dose 8,000 UNIT; Start 02/11/19 at 18:09 Amlodipine Besylate (Norvasc) 2.5 mg DAILY PO Last administered on 02/18/19 08:19; Admin Dose 2.5 MG; Start 02/14/19 at 09:00 Sodium Hypochlorite (Dakin'S (Dilute )) 1 applic Q12 IRR Last administered on 02/18/19 08:34; Admin Dose 1 APPLIC; Start 02/14/19 at 09:00 Insulin Aspart (Novolog Insulin Pen) NOVOLOG *MODERATE* ALGORITHM WITH MEALS BEDTIME SC Last administered on 02/18/19 17:35; Admin Dose 6 UNIT; Start 02/18/19 at 12:00 Ferric Sodium Gluconate Complex 125 mg/Sodium Chloride 100 ml @ 100 mls/hr WITH DIALYSIS IVPB ; Start 02/18/19 at 15:00; Stop 02/20/19 at 15:59 ALIREZA LEE Feb 18, 2019 20:40
[2019-02-19] VITALS (17 sets, daily range): BP systolic 117–150; BP diastolic 48–75; PULSE 64–69; RESP 16–18
[2019-02-19] MEDS: traMADol 50 MG TAB PO SCH ×3 (02:00→14:37)
[2019-02-19] MEDS: LEVOTHYROXINE 100 MCG TAB PO SCH (06:20)
[2019-02-19] MEDS: FOLIC ACID 1 MG TAB PO SCH (08:13)
[2019-02-19] MEDS: MULTIVIT/CA CARB/B CMPLX/FA TAB PO SCH (08:13)
[2019-02-19] MEDS: PANTOPRAZOLE (EC) 40 MG TAB PO SCH (08:13)
[2019-02-19] MEDS: DOCUSATE SODIUM 100 MG CAP PO SCH (08:13)
[2019-02-19] MEDS: MEGESTROL (40 MG/ML) 10ML CUP PO SCH (08:14)
[2019-02-19] MEDS: COLLAGENASE 5 GM (UD JAR) TOP SCH (08:14)
[2019-02-19] MEDS: SODIUM HYPOCHLORITE (1/40) 1 LITER BTL IRR SCH (08:16)
[2019-02-19] MEDS: PREDNISOLONE ACET 1% 5 ML OPH RIGHT EYE SCH (08:16)
[2019-02-19] MEDS: BALSAM PERU/CASTOR OIL 60 GM TUBE TOP SCH (08:17)
[2019-02-19] MEDS: METOCLOPRAMIDE 5 MG TAB PO SCH ×3 (08:17→17:22)
[2019-02-19] MEDS: AMLODIPINE 2.5 MG TAB PO SCH (08:19)
[2019-02-19] MEDS: METOPROLOL 50 MG TAB PO SCH (08:20)
[2019-02-19] MEDS: AMIODARONE 200 MG TAB PO SCH (08:20)
[2019-02-19] MEDS: POLYETHYLENE GLYCOL 17 GM PACKET PO SCH (08:22)
[2019-02-19] MEDS: CITALOPRAM 20 MG TAB PO SCH (08:22)
[2019-02-19] MEDS: INSULIN ASPART [NOVOLOG] 3 ML PEN SC SCH ×3 (08:23→17:27)
[2019-02-19] MEDS: HEPARIN 5,000 UNIT/1 ML VIAL SC SCH (08:25)
--- NOTE | 2019-02-19 11:27 | PN ---
Date/Time of Note Date/Time of Note DATE: 02/19/19 TIME: 11:25 Assessment/Plan Lines/Catheters IV Catheter Type (from Nrs): PICC Line [place] in Place (from Nrs): No Assessment/Plan Chief Complaint/Hosp Course 1. Sacral and bilateral ischial wounds: wnd cx noted; status post sacrum and right ischial debridement 01/29/19 -Further debridement as needed -Continue local care in outpatient setting (same therapy)> Can follow with Dr. Almanza as outpatient in wound clinic. -frequent turning and off-loading -low air loss mattress -vitamin c -short term zinc -optimize nutrition -Per podiatry for heel wound 2. Abdominal pain and generalized weakness: Status post EGD: Gastritis; no acute abd pain -further w/u per med team -PPI 3. ESRD -limit nephrotoxins -HD per renal -renally dose meds 4. Anemia: -monitor and transfuse as needed 5. Diabetes with episodes of hypoglycemia; no hypoglycemia episodes-sugar control much improved -glucose management 6. Hypothyroidism -med mgt 7. Pleural effusions: Persistent -fluid management Thank you. Patient seen and examined in collaboration with Dr. Simón Almanza. Subjective 24 Hr Interval Summary Feels well. No acute events. No fevers, chills, sob, congested cough, cp, palpitations, hoffman, dizziness, nausea, vomiting, diarrhea, dysuria. Exam/Review of Systems Vital Signs Vitals Vital Signs Date Temp Pulse Resp B/P (MAP) Pulse Ox O2 O2 Flow FiO2 Time Delivery Rate 02/19/19 2.0 08:01 02/19/19 Nasal 08:00 Cannula 02/19/19 98.8 69 16 150/68 99 07:45 (95) Intake and Output 02/18/19 02/18/19 02/19/19 1515:00 23:00 07:00 IntakeIntake Total 470 ml 200 ml BalanceBalance 470 ml 200 ml Exam Free Text/Dictation Constitutional: alert, oriented, obese Psych: normal mood Head: normocephalic, atraumatic Eyes: nl conjunctiva, EOMI, nl lids, nl sclera ENMT: nl external ears & nose, nl lips & teeth, mucosa pink and moist Neck: supple, non-tender; No jvd Respiratory: normal air movement; No congested cough, No labored breathing Cardiovascular: regular rate and rhythm, nl pulses; No edema Gastrointestinal: soft, non-tender, distended Genitourinary - Female: nl external genitalia Musculoskeletal: nl extremities to inspection, nl gait and stance Extremities: normal pulses Neurological: nl mental status, nl speech, nl strength Skin: other (sacral: Packed, no odor, minimal periwound erythema, min slough; right ischium: Packed, improved odor; left ischium: unstageable; left heel: Open wound); No rash or lesions Results Result Diagram: 02/17/1928 02/17/19627 ARSLAN COATES NP Feb 19, 2019 11:27
--- NOTE | 2019-02-19 11:35 | CONS ---
Assessment/Plan Assessment/Plan Hospital Course (Demo Recall) All noted. No acute events per report Microbiology: sacral wound culture grew Proteus, E. coli ESBL, VRE, and MRSA==> treated Antimicrobials: completed PHYSICAL EXAMINATION: GENERAL: This is a fragile, wasted, well-developed, elderly woman, who is in no distress. HEENT: Head atraumatic, normocephalic. Sclerae anicteric. The patient has right eye blindness. Buccal mucosa pale, dry. NECK: Supple. CHEST: Rise symmetrical. Breath sounds diminished to bases. HEART: S1, S2. ABDOMEN: Obese, soft, bowel tones present. EXTREMITIES: Bilateral edema. SKIN: The patient has a large necrotic wounds on bilateral buttocks, left buttock and left posterior thigh area , also, necrotic wound. The patient has pressure sores on her left heel as well. Assessment: 1. Multiple necrotic infected wounds, s/p debridement 2. End-stage renal disease, hemodialysis dependent 3. Diabetes 4. Hypertension 5. MRSA colonization 6. HCAP 7. Gastroparesis 8. S/p UTI==> Proteus Plan: Remains stable, completed abx, continue local wound care reculture prn, surgical rec-s Consultation Date/Type/Reason Admit Date/Time Jan 26, 2019 at 17:32 Initial Consult Date 01/27/19 Type of Consult id Requesting Provider: ALEXUS VALENCIA MD Date/Time of Note DATE: 02/19/19 TIME: 11:34 Exam/Review of Systems Exam Vitals Vital Signs Date Temp Pulse Resp B/P (MAP) Pulse Ox O2 O2 Flow FiO2 Time Delivery Rate 02/19/19 2.0 08:01 02/19/19 Nasal 08:00 Cannula 02/19/19 98.8 69 16 150/68 99 07:45 (95) Intake and Output 02/18/19 02/18/19 02/19/19 1515:00 23:00 07:00 IntakeIntake Total 470 ml 200 ml BalanceBalance 470 ml 200 ml Results Result Diagram: 02/17/1928 02/17/1928 Results 24hrs Laboratory Tests Test 02/18/19 12:18 02/18/19 17:34 02/18/19 21:08 02/19/19 07:53 Bedside Glucose 240 H 228 H 178 200 Medications Medication Current Medications Amiodarone HCl (Cordarone) 200 mg DAILY PO Last administered on 02/19/19 08:20; Admin Dose 200 MG; Start 01/27/19 at 09:00 Atorvastatin Calcium (Lipitor) 20 mg QHS PO Last administered on 02/18/19 21:09; Admin Dose 20 MG; Start 01/26/19 at 21:00 Bisacodyl (Dulcolax) 10 mg Q24H PRN PO CONSTIPATION; Start 01/26/19 at 20:00 Citalopram Hydrobromide (Celexa) 20 mg DAILY PO Last administered on 02/19/19 08:22; Admin Dose 20 MG; Start 01/27/19 at 09:00 Docusate Sodium (Colace) 100 mg BID PO Last administered on 02/19/19 08:13; Admin Dose 100 MG; Start 01/26/19 at 21:00 Folic Acid (Folic Acid) 1 mg DAILY PO Last administered on 02/19/19 08:13; Admin Dose 1 MG; Start 01/27/19 at 09:00 Levothyroxine Sodium (Synthroid) 100 mcg BEFORE BREAKFAST PO Last administered on 02/19/19 06:20; Admin Dose 100 MCG; Start 01/27/19 at 07:00 Metoclopramide HCl (Reglan) 5 mg BEFORE MEALS PO Last administered on 02/19/19 08:17; Admin Dose 5 MG; Start 01/27/19 at 07:30 Multivit/Ca Carb/ B Cmplx/FA/Prenat (Wendi-Cathi) 1 tab DAILY PO Last administered on 02/19/19 08:13; Admin Dose 1 TAB; Start 01/27/19 at 09:00 Ondansetron HCl (Zofran Tab) 4 mg Q6H PRN PO NAUSEA AND/OR VOMITING Last administered on 01/30/19 10:43; Admin Dose 4 MG; Start 01/26/19 at 20:00 Pantoprazole (Protonix Tab) 40 mg DAILY PO Last administered on 02/19/19 08:13; Admin Dose 40 MG; Start 01/27/19 at 09:00 Polyethylene Glycol (Miralax) 17 gm DAILY PO Last administered on 02/09/19 08:40; Admin Dose 17 GM; Start 01/27/19 at 09:00 Prednisolone Acetate (Pred-Forte 1%) 1 drop BID RIGHT EYE Last administered on 02/19/19 08:16; Admin Dose 1 DROP; Start 01/26/19 at 21:00 Heparin Sodium (Porcine) (Heparin (5000 Units/1ml)) 5,000 unit BID SC Last administered on 02/19/19 08:25; Admin Dose 5,000 UNIT; Start 01/26/19 at 21:00 Morphine Sulfate (morphine) 2 mg Q4H PRN IV SEVERE PAIN LEVEL 7-10 Last adminis tered on 02/14/19 08:12; Admin Dose 2 MG; Start 01/26/19 at 20:30 Miscellaneous Information 1 ea NOTE XX ; Start 01/26/19 at 23:45 Glucose (Glutose) 15 gm Q15M PRN PO DECREASED GLUCOSE; Start 01/26/19 at 23:45 Glucose (Glutose) 22.5 gm Q15M PRN PO DECREASED GLUCOSE; Start 01/26/19 at 23:45 Dextrose (D50w Syringe) 25 ml Q15M PRN IV DECREASED GLUCOSE Last administered on 01/28/19at 07:50; Admin Dose 25 ML; Start 01/26/19 at 23:45 Dextrose (D50w Syringe) 50 ml Q15M PRN IV DECREASED GLUCOSE; Start 01/26/19 at 23:45 Glucagon (Glucagen) 1 mg Q15M PRN IM DECREASED GLUCOSE; Start 01/26/19 at 23:45 Glucose (Glutose) 15 gm Q15M PRN BUCCAL DECREASED GLUCOSE; Start 01/26/19 at 23:45 Alteplase, Recombinant (Cathflo (Activase)) 2 mg MAY REPEAT X1 PRN CATHETER IF CATHETER REMAINS OCCULUDED Last administered on 02/02/19 23:09; Admin Dose 2 MG; Start 01/27/19 at 07:00 Tramadol HCl (Ultram) 50 mg Q6H PO Last administered on 02/19/19 08:14; Admin Dose 50 MG; Start 01/27/19 at 08:00 Collagenase (Santyl) 1 applic DAILY TOP Last administered on 02/19/19 08:14; Admin Dose 1 APPLIC; Start 01/28/19 at 09:00 Lorazepam (Ativan) 1 mg Q8H PRN PO ANXIETY; Start 01/27/19 at 22:30 Megestrol Acetate (Megace Susp) 400 mg DAILY PO Last administered on 02/19/19 08:14; Admin Dose 400 MG; Start 01/30/19 at 14:30 Lactulose (Enulose) 20 gm Q6H PRN PO CONSTIPATION; Start 02/04/19 at 11:00 Hydralazine HCl (Apresoline) 100 mg Q8 PO Last administered on 02/19/19 06:22; Admin Dose 100 MG; Start 02/04/19 at 14:00 Metoprolol Tartrate (Lopressor) 50 mg BID PO Last administered on 02/19/19 08:20; Admin Dose 50 MG; Start 02/08/19 at 21:00 Ondansetron HCl (Zofran Inj) 4 mg Q6H PRN IV NAUSEA AND/OR VOMITING Last administered on 02/13/19 12:09; Admin Dose 4 MG; Start 02/09/19 at 12:30 Epoetin Nidra-epbx (Retacrit (Esrd)) 8,000 unit TuThSa@1700 SC Last administered on 02/18/19 17:36; Admin Dose 8,000 UNIT; Start 02/11/19 at 18:09 Amlodipine Besylate (Norvasc) 2.5 mg DAILY PO Last administered on 02/19/19 08:19; Admin Dose 2.5 MG; Start 02/14/19 at 09:00 Sodium Hypochlorite (Dakin'S (Dilute 1/40)) 1 applic Q12 IRR Last administered on 02/19/19 08:16; Admin Dose 1 APPLIC; Start 02/14/19 at 09:00 Insulin Aspart (Novolog Insulin Pen) NOVOLOG *MODERATE* ALGORITHM WITH MEALS BEDTIME SC Last administered on 02/19/19 08:23; Admin Dose 4 UNIT; Start 02/18/19 at 12:00 Ferric Sodium Gluconate Complex 125 mg/Sodium Chloride 100 ml @ 100 mls/hr WITH DIALYSIS IVPB ; Start 02/18/19 at 15:00; Stop 02/20/19 at 15:59 ALYX NAVARRO NP Feb 19, 2019 11:35
[2019-02-19] MEDS ORDERED: SOD FERRIC GLUC COMPLX 125 MG in SOD CHLORIDE 0.9% 100 ML IVPB SCH (14:30)
--- NOTE | 2019-02-19 15:27 | PDOCDIS ---
Discharge Instructions CONDITION [id number] Patient Condition: [id number] Stable HOME CARE INSTRUCTIONS: [id number] Diet Instructions: [id number] ACTIVITY: [id number] Activity Restrictions: [id number] Slowly Increase Activity Rest between Activity Avoid heavy lifting No Sexual Activity Do not operate Machinery Do not operate Power Tool Avoid Heavy Housework [id number] Bathing Restrictions: [id number] Sponge Bath FOLLOW UP/APPOINTMENTS Follow-up Plan Call 911 or send patient to the nearest hospital if symptoms get worse TROY ANTOINE Feb 19, 2019 15:27
--- NOTE | 2019-02-19 15:28 | DS ---
Date/Time of Note Date/Time of Note DATE: 02/19/19 TIME: 15:28 Discharge Summary Admission/Discharge Info Admit Date/Time Jan 26, 2019 at 17:32 Discharge Date/Time Discharge Diagnosis -Sacral and bilateral ischial infected wounds. Status post sacrum and right i schial debridement 01/29/19. Dr. Almanza is following in general surgery consultation. Completed bax. Dr. Guevara is following in infection disease consultation. -HCAP with Left lower lobe infiltrate -Abdominal pain. Status post EGD with notion of gastritis. Continue PPI. Status post a colonoscopy with notion of hemorrhoids. -Moderate bilateral pleural effusion -Hemodialysis dependent end-stage renal disease. Continue on hemodialysis. Dr. Mcdaniel is following from nephrology standpoint. -Diabetes mellitus type 2. Continue Levemir and NovoLog per mild algorithm sliding scale. -Hypothyroidism, continue levothyroxine -Hypertension. -Hyperlipidemia, continue statin -Anemia -Left heel decubitus ulcer Stage 3, S/p evaluation by Dr Díaz in podiatry consultation. Pt refused debridement, continue current wound care, off loading. -MRSA of nares colonization. Contact isolation. -Right eye blindness. Patient Condition: Stable Hospital Course The patient is a 63-year-old female,a resident, with end-stage renal disease on hemodialysis, diabetes, hypertension, diastolic heart failure, history of recurrent pleural effusion, dyslipidemia who was recently admitted at [facility] because of multidrug-resistant UTI as well as recurrent pleural effusion and was subsequently transferred to [facility]. Patient had recurrent vomiting, but no abdominal pain, no reported fever or chills. But patient had poor p.o. intake causing weight loss; feeling weak and occasionally lethargic, especially during dialysis. The patient was sent to [facility] for evaluation of her condition. patient's decubitus ulcer had been getting worse and a plastic surgery consult was suggested; however, due to insurance reasons, patient could not be seen by a plastic surgeon at group home facility. The patient was therefore sent to [facility] for further evaluation and management under Dr Day.After her treatment in hospital , she is stable to transfer to . Please refer to chart for more information. Constitutional: nad, vss, alert, oriented, lethargic Eyes: other (Right eye blindness) Respiratory: clear to auscultation Cardiovascular: regular rate and rhythm Gastrointestinal: soft, non-tender Musculoskeletal: nl extremities to inspection Extremities: normal pulses, edema, other (Right upper extremity AV fistula) Neurological: nl mental status Plan of care discussed with Dr. Mandel. Home Meds Reported Medications Insulin Lispro (Humalog Kwikpen U-100) 100 Unit/1 Ml Insuln.pen, 0 SQ SLIDING SCALE, EA IF BS 151-200=1 UNIT,201-250=2 UNITS,251-300=3 UNITS,301-350=4 UNITS,351-400=5 UNITS, IF >400=6 UNITS AND CALL 01/26/19 Balsam Gissell/Gloster Oil (Venelex Ointment) 60 Gm Oint..gm., 1 APPLIC TOP NEEDED, #1 TUB 01/26/19 Multivit/Ca Carb/B Cmplx/Fa* (Wendi-Cathi*) 1 Tab Tab, 1 TAB PO DAILY, TAB 01/26/19 Metoclopramide* (Reglan*) 5 Mg Tablet, 5 MG PO BEFORE MEALS, TAB 01/26/19 Protein Supplement (Promod) 946 Ml Liquid, 30 ML PO DAILY 01/26/19 Lactose-Free Food (Nutritional Supplement) 237 Ml Liquid, 1 PO BID 01/26/19 Morphine Sulfate* (Morphine* Liq) 10 Mg/0.5 Ml Disp.syrin, 6 MG SL Q4H PRN for PAIN 7-1010, ML 01/26/19 Ipratropium-Albuterol (Ipratropium-Albuterol) 0.5-3 Mg/3 Ml Ampul.neb, 3 ML IN HALATION TID, #30 VIAL 01/26/19 Heparin Sod,Porcine/0.9 % NaCl (Heparin 5,000 Unit/5 ml-Ns) 5,000 Unit/5 Ml Syringe, 5000 UNIT IV Q8H 01/26/19 Ondansetron Hcl* (Zofran*) 4 Mg Tablet, 4 MG PO Q6H PRN for NAUSEA AND OR VOMITING, TAB 01/26/19 Citalopram Hydrobromide* (Citalopram Hydrobromide*) 20 Mg Tablet, 20 MG PO DAILY, #30 TAB 01/26/19 Bisacodyl* (Bisacodyl*) 5 Mg Tablet.dr, 10 MG PO Q24H PRN for CONSTIPATION, TAB 01/26/19 Diphenhydramine Hcl* (Diphenhydramine Hcl*) 25 Mg Capsule, 25 MG PO Q6 PRN for ITCHING, CAP 01/26/19 Polyethylene Glycol* (Polyethylene Glycol*) 17 Gm Powd.pack, 17 GM PO DAILY, #30 PACKET 11/18/18 Pantoprazole* (Pantoprazole*) 40 Mg Tablet.dr, 40 MG PO DAILY, TAB 11/18/18 Metoprolol Tartrate* (Lopressor*) 25 Mg Tablet, 25 MG PO BID, #60 TAB HOLD IF SBP<110 OR HR<60 11/18/18 Losartan Potassium* (Losartan Potassium*) 50 Mg Tablet, 50 MG PO BID, TAB HOLD IFSBP<110 OR HR<60 11/18/18 Levothyroxine Sodium* (Levothyroxine Sodium*) 100 Mcg Tablet, 100 MCG PO BEFORE BREAKFAST, #30 TAB 11/18/18 Insulin Detemir (Levemir) 100 Unit/1 Ml Vial, 6 UNITS SQ QHS 11/18/18 Folic Acid* (Folic Acid*) 1 Mg Tablet, 1 MG PO DAILY, TAB 11/18/18 Zinc Sulfate* (Zinc Sulfate*) 220 Mg Cap, 220 MG PO DAILY, CAP 11/18/18 Ascorbic Acid (Vitamin C) 500 Mg Tab, 500 MG PO DAILY, TAB 11/18/18 Acetaminophen* (Acetaminophen*) 325 Mg Tablet, 325 MG PO Q4H PRN for PAIN AND OR ELEVATED TEMP, #30 TAB FOR MILD PAIN 1-01/1711/18/18 Trazodone Hcl* (Trazodone Hcl*) 50 Mg Tablet, 50 MG PO QHS, #30 TAB 11/18/18 Tramadol HCl (Tramadol HCl) 50 Mg Tablet, 50 MG PO Q6H PRN for PAIN, #120 TAB 11/18/18 Prednisolone Acetate* (Pred Forte*) 5 Ml Susp, 1 DROP RIGHT EYE BID, EA 11/18/18 Docusate Sodium* (Colace*) 100 Mg Capsule, 100 MG PO BID, #30 CAP 11/18/18 Atorvastatin Calcium* (Atorvastatin Calcium*) 20 Mg Tablet, 20 MG PO QHS, #30 TAB 11/18/18 Amlodipine Besylate* (Norvasc*) 5 Mg Tablet, 5 MG PO QHS, TAB HOLD IF SBP<110 OR HR<60 11/18/18 Amiodarone Hcl* (Amiodarone Hcl*) 200 Mg Tablet, 200 MG PO DAILY, #30 TAB 11/18/18 Follow-up Plan Call 911 or send patient to the nearest hospital if symptoms get worse Primary Care Provider Tye Mandel MD Time spent on discharge: < 30 minutes Pending Labs Laboratory Tests Test 02/18/19 17:34 02/18/19 21:08 02/19/19 07:53 02/19/19 11:55 Bedside 228 178 200 174 Glucose mg/dL (70-220) mg/dL (70-220) mg/dL (70-220) mg/dL (70-220) TROY ANTOINE Feb 19, 2019 15:28
--- NOTE | 2019-02-19 18:11 | CONS ---
Assessment/Plan Assessment/Plan Hospital Course (Demo Recall) IMPRESSION: 1. Preop evaluation. The patient to undergo EGD whose 2D echo I just read revealing EF lower limits of normal, approximately 50% with no significant contraindicated valvular lesions and negative troponin x1 since admit, patient is okay to proceed at a moderate cardiovascular risk. Now post-op s/p endoscopy and debridement of decub ulcer 2. Congestive heart failure, diastolic acute on chronic. 3. Hypertension-labile but overall reasonable 4. Cardiac arrhythmia, on amiodarone, in sinus rhythm by EKG. 5. Hypothyroidism. 6. Diabetes mellitus. 7. Nausea and vomiting. 8. Generalized weakness. 9. Decubitus ulcers s/p debridement 10. Anemia. 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 12.CKD on HD Recc: -Tele -Contineu BB/hydralazine/CCB and follow reasonably controlled BP closely -continue statin -Continue amiodarone -Continue abx's and f/u cx data per ID -local wound care -HD for volume removal Consultation Date/Type/Reason Admit Date/Time Jan 26, 2019 at 17:32 Initial Consult Date 01/27/19 Type of Consult Cardiology Reason for Consultation CHF Requesting Provider: ALEXUS VALENCIA MD Date/Time of Note DATE: 02/19/19 TIME: 18:10 Exam/Review of Systems Vital Signs Vitals Vital Signs Date Temp Pulse Resp B/P (MAP) Pulse Ox O2 O2 Flow FiO2 Time Delivery Rate 02/19/19 65 14:32 02/19/19 98.0 16 143/57 98 Room Air 14:32 (85) Nasal Cannula 02/19/19 2.0 08:01 Intake and Output 02/18/19 02/18/19 02/19/19 1414:59 22:59 06:59 IntakeIntake Total 470 ml 200 ml BalanceBalance 470 ml 200 ml Exam Exam Review of Systems: CONSTITUTIONAL: No fevers, chills. PULMONARY: No sob CARDIOVASCULAR: No chest pain/palpitations GASTROINTESTINAL: No nausea/vomiting. GENITOURINARY: No hematuria/dysuria. MUSCULOSKELETAL: No myagias/arthalgias. PSYCHIATRIC: The patient denies depression. NEUROLOGIC: No weakness Constitutional: alert Psych: no complaints Head: normocephalic ENMT: mucosa pink and moist Neck: supple, jvd (9 cm water) Respiratory: diminished breath sounds (at bases/B) Cardiovascular: regular rate and rhythm Gastrointestinal: soft, non-tender Musculoskeletal: muscle tone (normal) Extremities: edema (none) Neurological: other (No focal deficits) Labs Result Diagram: 02/17/1962702/17/19627 Results 24hrs Laboratory Tests Test 02/18/19 21:08 02/19/19 07:53 02/19/19 11:55 02/19/19 17:06 Bedside Glucose 178 200 174 236 H Medications Medications Current Medications Amiodarone HCl (Cordarone) 200 mg DAILY PO Last administered on 02/19/19 08:20; Admin Dose 200 MG; Start 01/27/19 at 09:00 Atorvastatin Calcium (Lipitor) 20 mg QHS PO Last administered on 02/18/19 21:09; Admin Dose 20 MG; Start 01/26/19 at 21:00 Bisacodyl (Dulcolax) 10 mg Q24H PRN PO CONSTIPATION; Start 01/26/19 at 20:00 Citalopram Hydrobromide (Celexa) 20 mg DAILY PO Last administered on 02/19/19 08:22; Admin Dose 20 MG; Start 01/27/19 at 09:00 Docusate Sodium (Colace) 100 mg BID PO Last administered on 02/19/19 08:13; Admin Dose 100 MG; Start 01/26/19 at 21:00 Folic Acid (Folic Acid) 1 mg DAILY PO Last administered on 02/19/19 08:13; Admin Dose 1 MG; Start 01/27/19 at 09:00 Levothyroxine Sodium (Synthroid) 100 mcg BEFORE BREAKFAST PO Last administered on 02/19/19 06:20; Admin Dose 100 MCG; Start 01/27/19 at 07:00 Metoclopramide HCl (Reglan) 5 mg BEFORE MEALS PO Last administered on 02/19/19 17:22; Admin Dose 5 MG; Start 01/27/19 at 07:30 Multivit/Ca Carb/ B Cmplx/FA/Prenat (Wendi-Cathi) 1 tab DAILY PO Last administered on 02/19/19 08:13; Admin Dose 1 TAB; Start 01/27/19 at 09:00 Ondansetron HCl (Zofran Tab) 4 mg Q6H PRN PO NAUSEA AND/OR VOMITING Last administered on 01/30/19 10:43; Admin Dose 4 MG; Start 01/26/19 at 20:00 Pantoprazole (Protonix Tab) 40 mg DAILY PO Last administered on 02/19/19 08:13; Admin Dose 40 MG; Start 01/27/19 at 09:00 Polyethylene Glycol (Miralax) 17 gm DAILY PO Last administered on 02/09/19 08:40; Admin Dose 17 GM; Start 01/27/19 at 09:00 Prednisolone Acetate (Pred-Forte 1%) 1 drop BID RIGHT EYE Last administered on 02/19/19 08:16; Admin Dose 1 DROP; Start 01/26/19 at 21:00 Heparin Sodium (Porcine) (Heparin (5000 Units/1ml)) 5,000 unit BID SC Last a dministered on 02/19/19 08:25; Admin Dose 5,000 UNIT; Start 01/26/19 at 21:00 Morphine Sulfate (morphine) 2 mg Q4H PRN IV SEVERE PAIN LEVEL 7-10 Last administered on 02/14/19 08:12; Admin Dose 2 MG; Start 01/26/19 at 20:30 Miscellaneous Information 1 ea NOTE XX ; Start 01/26/19 at 23:45 Glucose (Glutose) 15 gm Q15M PRN PO DECREASED GLUCOSE; Start 01/26/19 at 23:45 Glucose (Glutose) 22.5 gm Q15M PRN PO DECREASED GLUCOSE; Start 01/26/19 at 23:45 Dextrose (D50w Syringe) 25 ml Q15M PRN IV DECREASED GLUCOSE Last administered on 01/28/19 07:50; Admin Dose 25 ML; Start 01/26/19 at 23:45 Dextrose (D50w Syringe) 50 ml Q15M PRN IV DECREASED GLUCOSE; Start 01/26/19 at 23:45 Glucagon (Glucagen) 1 mg Q15M PRN IM DECREASED GLUCOSE; Start 01/26/19 at 23:45 Glucose (Glutose) 15 gm Q15M PRN BUCCAL DECREASED GLUCOSE; Start 01/26/19 at 23:45 Alteplase, Recombinant (Cathflo (Activase)) 2 mg MAY REPEAT X1 PRN CATHETER IF CATHETER REMAINS OCCULUDED Last administered on 02/02/19 23:09; Admin Dose 2 MG; Start 01/27/19 at 07:00 Tramadol HCl (Ultram) 50 mg Q6H PO Last administered on 02/19/19 14:37; Admin Dose 50 MG; Start 01/27/19 at 08:00 Collagenase (Santyl) 1 applic DAILY TOP Last administered on 02/19/19 08:14; Admin Dose 1 APPLIC; Start 01/28/19 at 09:00 Lorazepam (Ativan) 1 mg Q8H PRN PO ANXIETY; Start 01/27/19 at 22:30 Megestrol Acetate (Megace Susp) 400 mg DAILY PO Last administered on 02/19/19 08:14; Admin Dose 400 MG; Start 01/30/19 at 14:30 Lactulose (Enulose) 20 gm Q6H PRN PO CONSTIPATION; Start 02/04/19 at 11:00 Hydralazine HCl (Apresoline) 100 mg Q8 PO Last administered on 02/19/19 06:22; Admin Dose 100 MG; Start 02/04/19 at 14:00 Metoprolol Tartrate (Lopressor) 50 mg BID PO Last administered on 02/19/19 08:20; Admin Dose 50 MG; Start 02/08/19 at 21:00 Ondansetron HCl (Zofran Inj) 4 mg Q6H PRN IV NAUSEA AND/OR VOMITING Last administered on 02/13/19 12:09; Admin Dose 4 MG; Start 02/09/19 at 12:30 Epoetin Indra-epbx (Retacrit (Esrd)) 8,000 unit TuThSa@1700 SC Last administered on 02/18/19 17:36; Admin Dose 8,000 UNIT; Start 02/11/19 at 18:09 Amlodipine Besylate (Norvasc) 2.5 mg DAILY PO Last administered on 02/19/19 08:19; Admin Dose 2.5 MG; Start 02/14/19 at 09:00 Sodium Hypochlorite (Dakin'S (Dilute 40)) 1 applic Q12 IRR Last administered on 02/19/19 08:16; Admin Dose 1 APPLIC; Start 02/14/19 at 09:00 Insulin Aspart (Novolog Insulin Pen) NOVOLOG *MODERATE* ALGORITHM WITH MEALS BEDTIME SC Last administered on 4/12/19at 17:27; Admin Dose 6 UNIT; Start 02/18/19 at 12:00 Ferric Sodium Gluconate Complex 125 mg/Sodium Chloride 110 ml @ 100 mls/hr WITH DIALYSIS IVPB Last administered on 02/19/19at 14:34; Admin Dose 100 MLS/HR; Start 02/19/19 at 14:30 ALIREZA LEE Feb 19, 2019 18:11
== END 2019-02-19 21:20 | DRG 570 ==
LOC: E/R 14:57 → 6WM 17:32 → PP2 02-08 19:52
PROVIDERS: ADMIT Internal Medicine; ATTEND Internal Medicine
PROC: 5A1D70Z Performance of Urinary Filtration, Intermittent, Less than 6 Hours Per Day (ICD-10-PCS; 2019-01-27)
PROC: 0DB68ZX Excision of Stomach, Via Natural or Artificial Opening Endoscopic, Diagnostic (ICD-10-PCS; 2019-01-28)
PROC: 0KBP0ZZ Excision of Left Hip Muscle, Open Approach (ICD-10-PCS; 2019-01-29)
PROC: 0KBN0ZZ Excision of Right Hip Muscle, Open Approach (ICD-10-PCS; 2019-01-29)
PROC: 0Y900ZX Drainage of Right Buttock, Open Approach, Diagnostic (ICD-10-PCS; 2019-01-29)
PROC: 0JB90ZZ Excision of Buttock Subcutaneous Tissue and Fascia, Open Approach (ICD-10-PCS; principal; 2019-01-29 18:00)
PROC: 0DJD8ZZ Inspection of Lower Intestinal Tract, Via Natural or Artificial Opening Endoscopic (ICD-10-PCS; 2019-02-05)
DX: L89.154 Pressure ulcer of sacral region, stage 4 (principal); N18.6 End stage renal disease; I50.33 Acute on chronic diastolic (congestive) heart failure; J18.9 Pneumonia, unspecified organism; I13.2 Hypertensive heart and chronic kidney disease with heart failure and with stage 5 chronic kidney disease, or end stage renal disease; N39.0 Urinary tract infection, site not specified; L02.31 Cutaneous abscess of buttock; K29.50 Unspecified chronic gastritis without bleeding; K20.9 Esophagitis, unspecified; L89.623 Pressure ulcer of left heel, stage 3; L89.314 Pressure ulcer of right buttock, stage 4; D63.1 Anemia in chronic kidney disease; H54.40 Blindness, one eye, unspecified eye; E03.9 Hypothyroidism, unspecified; E78.5 Hyperlipidemia, unspecified; E66.9 Obesity, unspecified; R62.7 Adult failure to thrive; I25.10 Atherosclerotic heart disease of native coronary artery without angina pectoris; E11.22 Type 2 diabetes mellitus with diabetic chronic kidney disease; K64.9 Unspecified hemorrhoids; I49.9 Cardiac arrhythmia, unspecified; E11.21 Type 2 diabetes mellitus with diabetic nephropathy; Y95 Nosocomial condition; E11.649 Type 2 diabetes mellitus with hypoglycemia without coma; B96.4 Proteus (mirabilis) (morganii) as the cause of diseases classified elsewhere; E11.42 Type 2 diabetes mellitus with diabetic polyneuropathy; B35.1 Tinea unguium; Z99.2 Dependence on renal dialysis; Z22.322 Carrier or suspected carrier of Methicillin resistant Staphylococcus aureus; Z68.34 Body mass index [BMI] 34.0-34.9, adult
CPT/HCPCS: 36415; 71045; 71046; 74018; 74176; 80048; 80053; 80061; 80202; 82150; 82378; 82550; 82553; 82607; 82728; 82746; 82962; 83540; 83605; 83690; 83735; 84439; 84443; 84484; 85014; 85018; 85025; 85610; 85730; 87070; 87081; 87086; 87340; 88304; 88305; 88312; 90935; 93005; 93306; 93922; A4310; J0278; J0690; J1644; J1815; J2185; J2250; J2270; J2370; J2405; J2543; J2916; J2997; J3010; J3370; J7040; Q4081; Q5105; Q9967